=== PATIENT | female | born 1955 | race Caucasian/White ===

== ENCOUNTER 2019-12-12 10:22 | Outpatient (CLI) | payer OTHER, SELFPAY ==
--- NOTE | ~2019-12-12 | US_ITS ---
EXAMINATION: US carotid duplex BI DATE: 12/12/2019 12:41 INDICATION: Bilateral carotid bruits. TECHNIQUE: Grayscale, color Doppler, and pulsed Doppler images of the cervical carotid arteries were obtained. The degree of vessel stenosis is placed in one of the following categories: normal, <50%, 5 0-69%, >=70% but less than near-occlusion, near-occlusion, or total occlusion. Note that percent sten osis relative to normal distal artery lumen diameter is indirectly measured from velocity measurement s as described by Sergio, et al. Radiology 2003; 229:340-346. COMPARISON: Ultrasound 03/20/2019 FINDINGS: RIGHT: The right common carotid artery (CCA) peak systolic velocity (PSV) is 63 cm/s. The right internal car otid artery (ICA) PSV is 139 cm/s. The right ICA end-diastolic velocity (EDV) is 29 cm/s. The right I CA/CCA PSV ratio is 2.2. Grayscale and color Doppler images yield an estimate of >=50% diameter reduc tion from plaque in the ICA. There is antegrade flow in the right vertebral artery. LEFT: The left CCA PSV is 117 cm/s. The left ICA PSV is 127 cm/s. The left ICA EDV is 31 cm/s. The left ICA /CCA PSV ratio is 1.2. Grayscale and color Doppler images yield an estimate of >=50% diameter reducti on from plaque in the ICA. There is antegrade flow in the left vertebral artery. IMPRESSION: 1. 50-69% stenosis in the right internal carotid artery. 2. 50-69% stenosis in the left internal carotid artery. Reviewed, dictated and finalized at location A. ITAL AIDE
== END 2019-12-12 10:23 | disposition home or self-care (01) ==
LOC: ANHIMG 10:23
PROVIDERS: PCP Internal Medicine; Visit Provider Internal Medicine Cardiovascular Disease
DX: I65.23 Occlusion and stenosis of bilateral carotid arteries (principal)
CPT/HCPCS: 93880

== ENCOUNTER 2019-12-20 01:05 | Emergency (ER) | payer OTHER, SELFPAY ==
[2019-12-20] VITALS (7 sets, daily range): BP systolic 115–145; BP diastolic 51–73; PULSE 73–105; RESP 15–20; TEMP 36.8; O2SAT 97–98
--- NOTE | ~2019-12-20 | XR_ITS ---
EXAMINATION: XR chest 2V DATE: 12/20/2019 02:35 INDICATION: Weakness. Dizziness, nausea, hematuria, shortness of breath. TECHNIQUE: Frontal and lateral views of the chest were obtained. COMPARISON: Chest single view 04/11/2018, chest CT 04/11/2018 FINDINGS: There is mild scarring at the lung apices. There is mild atelectasis at left lung base. No pleural effusion or pneumothorax. The heart size is normal. There are surgical clips in the abdomen. There is a right shoulder arthroplasty. IMPRESSION: 1. Mild scarring at the lung apices and mild atelectasis at left lung base. Reviewed, dictated and finalized at location A. ERT OR LECTURE HALL MANAGER
--- NOTE | ~2019-12-20 | CT_ITS ---
EXAMINATION: CT brain wo con DATE: 12/20/2019 03:39 INDICATION: Dizziness. Confusion. Left frontal headache. TECHNIQUE: Computed tomography (CT) of the head was performed without intravenous contrast. The mA wa s adjusted according to patient size. Iterative reconstruction technique was employed. The dose-lengt h product was 605.33 mGy-cm. COMPARISON: Head CT 09/28/2017 FINDINGS: There are scattered areas of low attenuation in the cerebral white matter. There is no intr acranial hemorrhage, acute infarction, or abnormal intracranial mass lesion. The ventricles are glenn l in size. There is mild mucosal thickening in the ethmoid sinuses. The mastoid air cells are normal. The orbits are normal. IMPRESSION: 1. Stable mild nonspecific cerebral white matter disease, which likely represents chronic small vesse l ischemic disease. Reviewed, dictated and finalized at location A. TER APPRENTICE IMPRESSION: 1. Stable mild nonspecific cerebral white matter disease, which likely represen ts chronic small vessel ischemic disease.
--- NOTE | 2019-12-20 01:28 | ECG_ITS ---
Measurements Intervals [place] Rate: 72 P: 62 MO: 244 QRS: 32 QRSD: 122 T: 57 QT: 435 QTc: 476 Interpretive Statements SINUS RHYTHM WITH FIRST DEGREE AV BLOCK INTRAVENTRICULAR CONDUCTION DELAY BORDERLINE R WAVE PROGRESSION, ANTERIOR LEADS ABNORMAL ECG Electronically Signed On 12-20-2019 7:01:22 BETTING AGENCY MANAGER by Abdulkadir Lucas D.O.
--- NOTE | 2019-12-20 01:28 | ED.WEAKNESS ---
HPI - Weakness General Chief complaint: Weakness Stated complaint: weakness Time Seen by Provider: 12/20/19 01:28 Source: patient and RN notes reviewed Mode of arrival: EMS Limitations: no limitations History of Present Illness HPI Narrative: Pt is a 64 y/o female who presents to the ED via EMS with c/o generalized weakness starting yesterday. According to the nurse, the pt recently finished a course of antibiotics for a UTI. Pt states that she also recently had her Ranexa dosage doubled from 1,000 mg to 2,000 mg. She notes that she developed weakness in her bilateral legs after beginning the new dosage of the medication. Pt states that her legs feel heavy. She notes that she felt fatigued and SOB while vacuuming her carpet yesterday, stating that she had to take several breaks due to her symptoms. Pt notes that she was leaving her bathroom this evening when her legs gave out from underneath her causing her to fall. She denies any head injury during the fall. Pt currently reports nausea, but denies any urinary frequency, dysuria, malodorous urine, or melena. MD Complaint: generalized weakness Onset (ago): day(s) (1) Location: generalized Context: recent illness (UTI) and other (increased dosage of Ranexa) Associated symptoms: nausea/vomiting (nausea) and other (fatigue; dyspnea on exertion) Related Data Home Medications Medication Instructions Recorded Confirmed clopidogrel 75 mg tablet 75 mg PO DAILY 12/02/19 lansoprazole 15 mg capsule,delayed 15 mg PO DAILY 12/02/19 release levothyroxine 100 mcg tablet 100 mcg PO DAILY 12/02/19 lisinopril 10 mg tablet 10 mg PO DAILY 12/02/19 nitroglycerin 0.4 mg sublingual 0.4 mg SUBLINGUAL Q5M PRN 12/02/19 tablet oxybutynin chloride 15 mg 15 mg PO DAILY 12/02/19 tablet,extended release 24 hr atorvastatin 40 mg tablet 40 mg PO DAILY 12/03/19 cephalexin 250 mg capsule 250 mg PO QAM cap 12/03/19 Allergies Allergy/AdvReac Type Severity Reaction Status Date / Time nitrofurantoin Allergy Severe SOB, Verified 12/02/19 18:07 tightness in chest ciprofloxacin Allergy Mild Nausea, Verified 12/02/19 18:07 palpatations Sulfa (Sulfonamide Allergy Mild unknown Verified 01/20/20 18:07 Antibiotics) sulfamethoxazole Allergy Mild HEART Verified 07/16/19 06:21 RACING trimethoprim Allergy Mild Unknown Verified 12/02/19 18:07 Review of Systems Review of Systems: All systems reviewed & are unremarkable except as noted in HPI and below Constitutional: Constitutional: Reports fatigue and Reports weakness (generalized) Respiratory: Respiratory: Reports dyspnea on exertion Gastrointestinal: Gastrointestinal: Denies melena and Reports nausea Genitourinary: Genitourinary: Denies dysuria and Denies other (urinary frequency; malodorous urine) [facility] Past Medical History Medical History A-fib Anxiety Arthritis Atypical chest pain Back pain Cancer of left kidney Essential (primary) hypertension GERD (gastroesophageal reflux disease) Glaucoma Gout Hemorrhoids History of pulmonary embolism Hx of deep venous thrombosis Hypothyroidism Migraine Osteoporosis Peripheral vascular disease, unspecified Renal disease Sleep apnea UTI (urinary tract infection) Ventral hernia Wrist fracture, bilateral Surgical History Surgical History History of hysterectomy History of nephrectomy Hx of appendectomy Hx of cardiac catheterization Hx of cholecystectomy Hx of foot surgery Hx of heart artery stent Hx of splenectomy Hx of tubal ligation Hx of ventral hernia repair with mesh S/P femoral-femoral bypass surgery rt leg Status post total replacement of right shoulder Social History Social History Smoking status: Never smoker Second hand tobacco smoke exposure: No Alcohol intake: never Gender identity (if verbalized by the
[2019-12-20] MEDS: SODIUM CHLORIDE 0.9% IV 1,000 ML 999 ML IV CONT (01:57)
[2019-12-20 02:14] LABS: Basophils Percent Auto 0.1 % (0.2-1.2); Eosinophils Absolute Auto 0.1 K/mm3 (0-0.3); Eosinophils Percent Auto 0.6 % (0-4.4); Hematocrit 32.3 % (37.0-47.0); Hemoglobin 10.4 g/dL (12.0-15.0); Immature Granulocyte Absolute 0.06 K/mm3 (0.00-0.031); Immature Granulocyte Percent A 0.4 % (0-0.5); Lymphocytes Absolute Auto 2.24 K/mm3 (0.9-3.2); Lymphocytes Percent Auto 15.8 % (18.3-44.2); Mean Corpuscular HGB Conc 32.2 g/dl (32-36); Mean Corpuscular Hemoglobin 28.5 pg (26-34); Mean Corpuscular Volume 88.5 fl (80-100); Mean Platelet Volume 9.4 fl (7.4-10.4); Monocytes Absolute Auto 0.8 K/mm3 (0.1-0.6); Monocytes Percent Auto 5.6 % (2.6-8.5); Neutrophils Percent Auto 77.5 % (45.5-73.1); Platelet Count Result 504 k/mm3 (150-375); Red Blood Count 3.65 M/mm3 (4.2-5.4); Red Cell Distribution Width 14.4 % (11.5-14.5); White Blood Count 14.2 K/mm3 (4.5-10.0)
[2019-12-20 02:18] LABS: Add Urine Microscopic? YES; Appearance Urine Clear (Clear); Bilirubin Urine Negative (Negative); Blood Urine 2+ (Negative); Color Urine Yellow (Yellow); Glucose Urine UA Negative (Negative); Ketones Urine Negative (Negative); Leukocyte Esterase Ur Negative LEU/UL (Negative); Mucus Urine Rare /lpf; Nitrate Urine Negative (Negative); Protein Urine Negative (Negative); RBC Urine 51-75 /hpf (0-2); Specific Grav Ur 1.016 (1.001-1.035); Squamous Epithelial Cell Urine Rare /hpf (Few); Urobilinogen Urine Negative mg/dL (<2.0)
[2019-12-20 02:23] LABS: Blood Urea Nitrogen 23 mg/dL (7-17); Carbon Dioxide 21 mmol/L (22-30); Chloride 99 mmol/L (98-107); Estimated CRCL calculation 40 ml/min; Estimated Glomerular Filt Rate 41; Glucose 110 mg/dL (65-105); Potassium 4.5 mmol/L (3.4-5.0); Sodium 135 mmol/L (137-145)
[2019-12-20] MEDS: LORAZEPAM INJ 2 MG/ML VIAL 0.5 MG IV PUSH (03:47)
[2019-12-20] MEDS: MECLIZINE HCL 25 MG TABLET PO (03:47)
--- NOTE | 2019-12-20 04:56 | PC.NURSE ---
Pt. re evaluated on standing. did well and also walked towards the door by bed n room. Stood with assistance from this RN and Harris Knutson. Pt denied any pain at that moment.
== END 2019-12-20 05:30 | disposition home or self-care (01) ==
PROVIDERS: Emergency Provider Emergency Medicine; PCP Internal Medicine
DX: R42 Dizziness and giddiness (principal); I48.91 Unspecified atrial fibrillation; M19.90 Unspecified osteoarthritis, unspecified site; I10 Essential (primary) hypertension; K21.9 Gastro-esophageal reflux disease without esophagitis; H40.9 Unspecified glaucoma; M10.9 Gout, unspecified; Z86.711 Personal history of pulmonary embolism; Z86.718 Personal history of other venous thrombosis and embolism; E03.9 Hypothyroidism, unspecified; M81.0 Age-related osteoporosis without current pathological fracture; I73.9 Peripheral vascular disease, unspecified; N28.9 Disorder of kidney and ureter, unspecified; G47.30 Sleep apnea, unspecified; Z90.5 Acquired absence of kidney; Z85.528 Personal history of other malignant neoplasm of kidney; Z95.5 Presence of coronary angioplasty implant and graft; Z90.81 Acquired absence of spleen; Z96.611 Presence of right artificial shoulder joint; I44.0 Atrioventricular block, first degree; I45.9 Conduction disorder, unspecified; R94.31 Abnormal electrocardiogram [ECG] [EKG]
CPT/HCPCS: 36415; 51701; 70450; 71046; 80048; 81001; 85025; 87086; 93005; 96361; 96374; 99284; A9270; J2060; J7030

== ENCOUNTER 2019-12-23 07:25 | Outpatient (CLI) | payer OTHER, SELFPAY ==
--- NOTE | ~2019-12-23 | CT_ITS ---
EXAMINATION: CTA chest PE protocol EXAM DATE: 12/23/2019 07:55 INDICATION: Upper back pain. History kidney cancer and pulmonary embolism. Cough. TECHNIQUE: Spiral CTA of the chest (pulmonary arteries) was performed with 100 cc Omnipaque 350 intr avenous contrast injection. Images were acquired during the pulmonary arterial phase. Coronal maxi mum intensity projection 3D-reconstructions were created by the technologist on dedicated workstation . Axial, coronal and sagittal reformatted images were reviewed. The dose-length product (DLP) for t his examination was 383.58 mGy-cm. The exposure was tailored according to patient size (auto mA exp osure control), and iterative reconstruction (ASIR) was used as additional dose reduction technique. Comparison is made to prior examination from 04/11/2018. FINDINGS: Pulmonary arteries are well opacified and without intraluminal filling defects, previously seen filling defects have resolved. No thoracic aortic dissection. There is subsegmental right lo wer lobe medial groundglass airspace disease, could be pneumonia or atelectasis. Clinical correlation . There are no pleural or pericardial effusions. Tracheobronchial tree is patent. There is no me diastinal, hilar or axillary lymphadenopathy. There is no pneumothorax. Heart normal in size. T here is mild coronary arterial calcification, arterial sclerosis. Mild periportal edema suspected. There are cholecystectomy clips. Again there is lobular soft tissue adjacent to the pancreatic tail, located cephalad to the left adrenal gland, potentially could be spl enosis given location. This appears unchanged compared to 2018, therefore probably not local cancer r ecurrence. There is mild to moderate thoracic spondylosis without osteoblastic or osteolytic lesions identified. Right shoulder replacement. IMPRESSION: 1. Right lower lobe medial segmental groundglass opacity, could be atelectasis or pneumonia. 2. Stable left lower quadrant soft tissue probably splenosis. 3. No pulmonary emboli. Reviewed, dictated and finalized at location B. CIENTIST
== END 2019-12-23 07:26 | disposition home or self-care (01) ==
PROVIDERS: PCP Internal Medicine; Visit Provider Internal Medicine
DX: R07.89 Other chest pain (principal); Z86.711 Personal history of pulmonary embolism; R91.8 Other nonspecific abnormal finding of lung field
CPT/HCPCS: 71275; Q9967

== ENCOUNTER 2020-03-28 00:14 | Outpatient (CLI) | payer OTHER, SELFPAY | END 2020-03-28 00:15 | disposition home or self-care (01) | LOC: ANHCOVIDDT 00:14 | PROVIDERS: PCP Internal Medicine; Visit Provider Internal Medicine Cardiovascular Disease | DX: Z01.812 Encounter for preprocedural laboratory examination (principal); Z20.828 Contact with and (suspected) exposure to other viral communicable diseases | CPT/HCPCS: 87635; C9803; U0003 ==

== ENCOUNTER 2020-03-31 01:06 | Day surgery (SDC) | payer OTHER, SELFPAY ==
[2020-03-31] VITALS (12 sets, daily range): BP systolic 89–124; BP diastolic 49–66; PULSE 57–76; RESP 13–21; TEMP 37.1–37.7; O2SAT 93–99; BMI 32.1
[2020-03-31 09:30] LABS: Basophils Absolute Auto 0.1 K/mm3 (0.0-0.1); Basophils Percent Auto 0.4 % (0.2-1.2); Eosinophils Absolute Auto 0.1 K/mm3 (0-0.3); Hematocrit 34.8 % (37.0-47.0); Hemoglobin 11.4 g/dL (12.0-15.0); Immature Granulocyte Absolute 0.05 K/mm3 (0.00-0.031); Immature Granulocyte Percent A 0.4 % (0-0.5); Lymphocytes Absolute Auto 3.43 K/mm3 (0.9-3.2); Lymphocytes Percent Auto 27.2 % (18.3-44.2); Mean Corpuscular HGB Conc 32.8 g/dl (32-36); Mean Corpuscular Hemoglobin 30.2 pg (26-34); Mean Corpuscular Volume 92.1 fl (80-100); Mean Platelet Volume 9.2 fl (7.4-10.4); Monocytes Absolute Auto 1.1 K/mm3 (0.1-0.6); Monocytes Percent Auto 8.6 % (2.6-8.5); Neutrophils Absolute Auto 7.9 K/mm3 (1.3-6.7); Neutrophils Percent Auto 62.4 % (45.5-73.1); Platelet Count Result 507 k/mm3 (150-375); Red Blood Count 3.78 M/mm3 (4.2-5.4); Red Cell Distribution Width 13.5 % (11.5-14.5); White Blood Count 12.6 K/mm3 (4.5-10.0)
[2020-03-31 09:39] LABS: INR 1.1; Prothrombin Time 13.8 Seconds (11.1-14.7)
[2020-03-31 09:43] LABS: Alanine Aminotransferase 12 U/L (4-35); Albumin Level 4.1 g/dL (3.5-5.1); Alkaline Phosphatase 173 U/L (38-126); Aspartate Amino Transferase 21 U/L (14-36); Bilirubin,Total 0.4 mg/dL (0.2-1.3); Blood Urea Nitrogen 18 mg/dL (7-17); Calcium 8.9 mg/dL (8.4-10.2); Carbon Dioxide 23 mmol/L (22-30); Chloride 104 mmol/L (98-107); Estimated Glomerular Filt Rate 33; Glucose 106 mg/dL (65-105); Potassium 4.5 mmol/L (3.4-5.0); Sodium 136 mmol/L (137-145)
--- NOTE | 2020-03-31 10:26 | WPDMODSED ---
Moderate Sedation Note-Pt Data Patient Data Allergies Allergy/AdvReac Type Severity Reaction Status Date / Time nitrofurantoin Allergy Severe SOB, Verified 12/02/19 18:07 tightness in chest ciprofloxacin Allergy Mild Nausea, Verified 12/02/19 18:07 palpatations Sulfa (Sulfonamide Allergy Mild unknown Verified 12/02/19 18:07 Antibiotics) sulfamethoxazole Allergy Mild HEART Verified 07/16/19 06:21 RACING trimethoprim Allergy Mild Unknown Verified 12/02/19 18:07 Home Medications Medication Instructions Recorded Confirmed Type felodipine 10 mg tablet,extended 10 mg PO DAILY #90 tablet 10/02/19 03/31/20 Rx release 24 hr rivaroxaban 20 mg tablet 20 mg PO DAILY #90 tablet 10/31/19 03/31/20 Rx carvedilol 25 mg tablet 25 mg PO Q12H #180 tablet 11/20/19 03/31/20 Rx clopidogrel 75 mg tablet 75 mg PO DAILY 12/02/19 03/31/20 History lansoprazole 15 mg capsule,delayed 15 mg PO PRN 12/02/19 03/31/20 History release nitroglycerin 0.4 mg sublingual 0.4 mg SUBLINGUAL Q5M PRN 12/02/19 03/31/20 History tablet oxybutynin chloride 15 mg 15 mg PO DAILY 12/02/19 03/31/20 History tablet,extended release 24 hr atorvastatin 40 mg tablet 40 mg PO DAILY 12/03/19 03/31/20 History cephalexin 250 mg capsule 250 mg PO QAM cap 12/03/19 03/31/20 History levothyroxine 100 mcg tablet 100 mcg PO DAILY #90 tablet 02/19/20 03/31/20 Rx lisinopril 10 mg tablet 10 mg PO DAILY #90 tablet 02/19/20 03/31/20 Rx cholecalciferol (vitamin D3) 50 mcg PO DAILY 03/31/20 03/31/20 History [Vitamin D3] ranolazine 500 mg PO Q12H 03/31/20 03/31/20 History Current Medications: Active Medications Sodium Chloride (Normal Saline Iv) 500 mls @ 100 mls/hr IV CONT .Q5H ENEDELIA Sedation/Anesthesia: No previous sedation/anesthesia problems (including family history). [facility] Social History Social History Smoking status: Never smoker Second hand tobacco smoke exposure: No Alcohol intake: never Gender identity (if verbalized by the patient): Female Mod Sed Physical Exam Physical Exam Pre Procedural Exam: Normal: Airway Hours since solid foods: 10 Hours since liquid intake: 10 Internal Medicine - PN: Obj Da Vital Signs Vital Signs: Vital Signs - 24 hr 03/31/20 09:10 Temperature 37.1 C Pulse Rate 76 Respiratory Rate 15 Blood Pressure 121/57 L Pulse Oximetry 99 Meds/Results Medications: Active Medications Generic Name Dose Route Start Last Admin Trade Name Freq PRN Reason Stop Dose Admin Sodium Chloride 500 mls @ 100 mls/hr 03/31/20 06:05 Normal Saline Iv IV CONT .Q5H ENEDELIA Labs CBC & Chem 7: 03/31/20 09:06 03/31/20 09:06 Labs: Laboratory Results - last 24 hr 03/31/20 03/31/20 03/31/20 09:06 09:06 09:06 WBC 12.6 H RBC 3.78 L Hgb 11.4 L Hct 34.8 L MCV 92.1 MCH 30.2 MCHC 32.8 RDW 13.5 Plt Count 507 H MPV 9.2 Immature Gran % (Auto) 0.4 Neut % (Auto) 62.4 Lymph % (Auto) 27.2 [place] % (Auto) 8.6 H Eos % (Auto) 1.0 Baso % (Auto) 0.4 Lymph # (Auto) 3.43 H [place] # (Auto) 1.1 H Eos # (Auto) 0.1 Baso # (Auto) 0.1 Abs Immat Gran (auto) 0.05 H Absolute Neuts (auto) 7.9 H Absolute Nucleated RBC 0.0 Nucleated RBC % 0.0 PT 13.8 INR 1.1 Sodium 136 L Potassium 4.5 Chloride 104 Carbon Dioxide 23 BUN 18 H Creatinine 1.60 H Estim Creat Clear Calc Not Reportable Estimated GFR 33 L Glucose 106 H Calcium 8.9 Total Bilirubin 0.4 AST 21 ALT 12 Alkaline Phosphatase 173 H Total Protein 8.0 Albumin 4.1 ASA Classification/Sedation ASA Classification/Sedation Risks: Risks, benefits and alternatives explained and patient/family accepted plan for sedation. Patient re-evaluated immediately prior to sedation.
--- NOTE | 2020-03-31 10:45 | PM.IMHP ---
H&P: HPI History of Present Illness Chief complaint: CAD, Stable Angia Narrative: Iza Gayle is a 64 year old female Known CAD, history of PCI /stenting of ostial RCA using 3.5 x 15 mm everolimus eluting stent on 08/07/2015 in the setting of unstable angina; PAD with history of right to left fem-fem bypass surgery. Patient has been referred for cardiac catheterization in the setting of recurrent chest discomfort. Review of Systems Constitutional: Constitutional: Denies chills, Denies fatigue, Denies fever(s) and Denies headache(s) Eyes: Eyes: Reports as per HPI, Denies change in vision, Denies loss of vision and Denies eye pain ENT: Reports as per HPI, Reports Normal hearing present, Denies headache(s), Denies lip swelling, Denies epistaxis and Denies sore throat Cardiovascular: Cardiovascular: Reports as per HPI, Reports chest pain, Denies syncope, Denies irregular heart rhythm, Denies lightheadedness and Denies dyspnea Respiratory: Respiratory: Reports as per HPI, Denies cough, Denies dyspnea and Denies wheezing Gastrointestinal: Gastrointestinal: Reports as per HPI, Denies abdominal pain, Denies melena, Denies nausea and Denies vomiting Genitourinary: Genitourinary: Reports as per HPI Musculoskeletal: Musculoskeletal: Reports as per HPI, Denies myalgias, Denies muscle cramps and Denies muscle weakness Integumentary/Breasts: Skin/Breast: Reports as per HPI, Denies pruritus and Denies rash Neurologic: Reports as per HPI, Reports Normal hearing present, Denies behavioral changes, Denies syncope, Denies headache(s) and Denies loss of vision Psychiatric: Psychiatric: Reports as per HPI, Denies anxiety, Denies behavioral changes and Denies depression Endocrine: Endocrine: Reports as per HPI, Denies fatigue, Denies polydipsia and Denies polyuria Hematologic/Lymphatic: Hematologic/Lymphatic: Reports as per HPI, Denies easy bleeding and Denies easy bruising Allergic/Immunologic: Allergic/Immunologic: Reports as per HPI, Denies lip swelling and Denies wheezing PMFSH Past Medical History Medical History A-fib Anxiety Arthritis Atypical chest pain Back pain Cancer of left kidney Essential (primary) hypertension GERD (gastroesophageal reflux disease) Glaucoma Gout Hemorrhoids History of pulmonary embolism Hx of deep venous thrombosis Hypothyroidism Migraine Osteoporosis Peripheral vascular disease, unspecified Renal disease Sleep apnea UTI (urinary tract infection) Ventral hernia Wrist fracture, bilateral Surgical History Surgical History History of hysterectomy History of nephrectomy Hx of appendectomy Hx of cardiac catheterization Hx of cholecystectomy Hx of foot surgery Hx of heart artery stent Hx of splenectomy Hx of tubal ligation Hx of ventral hernia repair with mesh S/P femoral-femoral bypass surgery rt leg Status post total replacement of right shoulder Family History Family History Mother Family history of Alzheimer's disease, Onset Age: 82 Patient's mother is Sibling Family history of diabetes mellitus in first degree relative Diabetes mellitus Family history of congenital heart disease Father Family history of emphysema Family history of congenital heart disease Other Hypertension Social History Social History Smoking status: Never smoker Second hand tobacco smoke exposure: No Alcohol intake: never Gender identity (if verbalized by the patient): Female Meds Home Medications and Allergies Home Medications Medication Instructions Recorded Confirmed Type felodipine 10 mg tablet,extended 10 mg PO DAILY #90 tablet 10/02/19 03/31/20 Rx release 24 hr rivaroxaban 20 mg tablet 20 mg PO DAILY #90 tablet 10/31/19 03/31/20 Rx carvedilol 25 mg tablet 25
--- NOTE | 2020-03-31 11:25 | WPDCARDPROC ---
Cardiac Cath Procedure Note Date of procedure:: 03/31/20 Performing physician:: Hemanth Livingston MD Procedure Procedure note:: LEFT HEART CATHETERIZATION AND CORONARY ANGIOGRAM REPORT DATE OF PROCEDURE: 03/31/2020 INDICATION FOR PROCEDURE: Angina; history of CAD, status post PCI / stenting of ostial RCA BRIEF CLINICAL HISTORY:64 year old female with Known CAD, history of PCI /stenting of ostial RCA using 3.5 x 15 mm everolimus eluting stent on 08/07/2015 in the setting of angina; PAD with history of right to left fem-fem bypass surgery. Patient has been referred for cardiac catheterization in the setting of recurrent chest discomfort. Benefits, risks and alternatives of the procedure were discussed with the patient informed consent was taken prior to the procedure. PROCEDURES PERFORMED: 1. Left heart catheterization- Selective left and right coronary angiogram; left ventriculogram and hemodynamic assessment 2. Selective right common femoral angiogram and deployment of Angio-Seal hemostatic device 3. Moderate sedation-CPT code 83130 MODERATE SEDATION: Midazolam 2 mg; fentanyl 50 mcg; Start time 1049 , Stop time 1120 ; Total [id number] time 31 minutes; Eris Abreu RN was trained observer for moderate sedation. ACCESS SITE: Left radial artery PROCEDURE NOTE: After obtaining informed consent, patient was brought to catheterization lab and prepped and draped in a usual sterile manner. After local anesthesia with lidocaine, attempt was made to get access in the right common femoral artery. However, there was difficulty in advancing the wire through the right iliac artery. Therefore, access was taken in the left radial artery. After local anesthesia lidocaine, left radial artery access was taken followed by insertion of a 6 [place] sheath. Patient received 5000 units of heparin, and a cocktail of 200 mcg of nitroglycerin and 2.5 mg of verapamil through the radial artery sheath. Next, selective left and right coronary angiogram was performed using 5 [place] Juni catheter. Orthogonal views were taken. Next, a 5 [place] pigtail catheter was advanced in the LV cavity and was flushed with normal saline. LV pressure measurement was performed. After this, left ventriculogram was performed. The catheter was flushed again, and gradient across the aortic valve was measured on the pullback of the catheter. A radial band was placed at the left radial artery access site for local hemostasis. Patient tolerated procedure well without any immediate procedure related complications. FINDINGS: LEFT MAIN CORONARY: The left main coronary artery is a medium to large caliber vessel with minimal narrowing at the ostium without catheter dampening. The vessel bifurcates into tortuous LAD and left circumflex branches. LEFT ANTERIOR DESCENDING ARTERY: The LAD is a medium caliber vessel in the proximal segment, becomes very tortuous in the mid segment distal to the origin of the major diagonal branch. The vessel tapers distally and reaches the LV apex. This is a poorly defined [id number] stenosis in the very tortuous site mid segment distal to the major diagonal branch and at the origin of the septal building equipment operator. The major diagonal branch is a medium-sized vessel with minor plaque. LEFT CIRCUMFLEX ARTERY: The left circumflex artery is a tortuous, medium caliber vessel which essentially continues as OM 1 branch. There is minimal narrowing in the ostial-proximal segment. RIGHT CORONARY ARTERY: The right coronary artery was difficult to engage due to previously placed stent at the ostium. The previously placed stent is patent without significant normal loss. The remainder of the RCA is a medium caliber vessel, tortuous with minor irregularities in the mid segment. The vessel gives rise to medium to large-sized PLV branch and medium size PDA branch without significant focal stenosis. LEFT VENTRICULOGRAM: Hyperdynamic LV systolic function, ejection fraction m
== END 2020-03-31 17:39 | disposition home or self-care (01) ==
PROVIDERS: Internal Medicine Cardiovascular Disease; PCP Internal Medicine; Visit Provider Specialist
PROC: 4A023N7 Measurement of Cardiac Sampling and Pressure, Left Heart, Percutaneous Approach (ICD-10-PCS; CPT 93452; principal; 2020-03-31 10:00)
DX: I25.118 Atherosclerotic heart disease of native coronary artery with other forms of angina pectoris (principal); Z95.5 Presence of coronary angioplasty implant and graft; I73.9 Peripheral vascular disease, unspecified; I48.91 Unspecified atrial fibrillation; I10 Essential (primary) hypertension; K21.9 Gastro-esophageal reflux disease without esophagitis; E03.9 Hypothyroidism, unspecified; M81.0 Age-related osteoporosis without current pathological fracture; F41.9 Anxiety disorder, unspecified; M10.9 Gout, unspecified; G47.30 Sleep apnea, unspecified; Z85.528 Personal history of other malignant neoplasm of kidney; Z86.718 Personal history of other venous thrombosis and embolism; Z86.711 Personal history of pulmonary embolism; Z79.01 Long term (current) use of anticoagulants; Z79.02 Long term (current) use of antithrombotics/antiplatelets
CPT/HCPCS: 36415; 80053; 85025; 85610; 93458; C1887; C1894; J1644; J2250; J3010; J7040

== ENCOUNTER 2020-04-10 14:22 | Outpatient (CLI) | payer OTHER, SELFPAY | END 2020-04-10 14:23 | disposition home or self-care (01) | LOC: ANHSURGERY 14:24 | PROVIDERS: PCP Internal Medicine; Visit Provider Urology | DX: N30.10 Interstitial cystitis (chronic) without hematuria (principal) | CPT/HCPCS: 87086 ==

== ENCOUNTER 2020-04-17 00:13 | Outpatient (CLI) | payer OTHER, SELFPAY ==
[2020-04-17 15:54] LABS: SARS-CoV-2 RNA PCR Negative
== END 2020-04-17 00:14 | disposition home or self-care (01) ==
LOC: ANHCOVIDDT 00:13
PROVIDERS: PCP Internal Medicine; Visit Provider Urology
DX: Z01.818 Encounter for other preprocedural examination (principal); Z11.59 Encounter for screening for other viral diseases
CPT/HCPCS: 87635; C9803; U0003

== ENCOUNTER 2020-04-20 03:21 | Day surgery (SDC) | payer OTHER, SELFPAY ==
[2020-04-08 15:17] VITALS: BMI 31.2
--- NOTE | 2020-04-20 07:23 | WPDHPUPDATE1 ---
History and Physical Update Update Date/Time: 04/20/20 07:23 History and Physical has been reviewed, including an updated exam of the patient. There are NO changes in the patient's condition. Risks, benefits, and alternatives have been discussed and questions answered. Patient agrees to proceed with procedure.
[2020-04-20 10:00] VITALS: BP 113/52; PULSE 78; RESP 20; TEMP 37.6; O2SAT 99
[2020-04-20] MEDS: LACTATED RINGERS 1,000 ML 30 ML IV CONT (10:39)
--- NOTE | 2020-04-20 10:57 | WPDANESEPPF ---
Anes - Initial Pre Proc Eval Procedure: Operation Date: 04/20/20 12:00 Proposed Procedures p Cystoscopy, Bladder Biopsy With Steroid Injection - Lazaro Juarez MD Date/Time: 04/20/20 10:57 Surgeon: Lazaro Juarez MD Pre Op Diagnosis: Hunner's Ulcer Patient Data Age: 64 Gender: F Height: 5 ft 3 in Weight: 84.5 kg Last Vital Signs Temp 37.6 C 04/20/20 10:00 Pulse 78 04/20/20 10:00 Resp 20 04/20/20 10:00 BP 113/52 L 04/20/20 10:00 Pulse Ox 99 04/20/20 10:00 Allergies Allergy/AdvReac Type Severity Reaction Status Date / Time nitrofurantoin Allergy Severe SOB, Verified 04/08/20 15:23 tightness in chest ciprofloxacin Allergy Mild Nausea, Verified 04/08/20 15:23 palpatations Sulfa (Sulfonamide Allergy Mild unknown Verified 04/08/20 15:23 Antibiotics) sulfamethoxazole Allergy Mild HEART Verified 04/08/20 15:23 RACING trimethoprim Allergy Mild Unknown Verified 04/08/20 15:23 Home Medications Medication Instructions Recorded Confirmed Type rivaroxaban 20 mg tablet 20 mg PO DAILY #90 tablet 10/31/19 04/20/20 Rx carvedilol 25 mg tablet 25 mg PO Q12H #180 tablet 11/20/19 04/20/20 Rx clopidogrel 75 mg tablet 75 mg PO DAILY 12/02/19 04/20/20 History lansoprazole 15 mg capsule,delayed 15 mg PO PRN 12/02/19 04/08/20 History release nitroglycerin 0.4 mg sublingual 0.4 mg SUBLINGUAL Q5M PRN 12/02/19 04/20/20 History tablet oxybutynin chloride 15 mg 15 mg PO DAILY 12/02/19 04/20/20 History tablet,extended release 24 hr atorvastatin 40 mg tablet 40 mg PO DAILY 12/03/19 04/20/20 History cephalexin 250 mg capsule 250 mg PO QAM cap 12/03/19 04/20/20 History levothyroxine 100 mcg tablet 100 mcg PO DAILY #90 tablet 02/19/20 04/20/20 Rx lisinopril 10 mg tablet 10 mg PO DAILY #90 tablet 02/19/20 04/20/20 Rx cholecalciferol (vitamin D3) 50 mcg PO DAILY 03/31/20 04/20/20 History [Vitamin D3] ranolazine 500 mg PO Q12H 03/31/20 04/20/20 History felodipine 10 mg tablet,extended 10 mg PO DAILY #90 tablet 04/01/20 04/20/20 Rx release 24 hr Patient hx anesthesia problems: none Family hx anesthesia problems: none PMFSH Past Medical History Medical History A-fib Anxiety Arthritis Atypical chest pain Back pain Cancer of left kidney Essential (primary) hypertension GERD (gastroesophageal reflux disease) Glaucoma Gout Hemorrhoids History of pulmonary embolism Hx of deep venous thrombosis Hypothyroidism Migraine Osteoporosis Peripheral vascular disease, unspecified Renal disease Sleep apnea UTI (urinary tract infection) Ventral hernia Wrist fracture, bilateral Surgical History Surgical History History of hysterectomy History of nephrectomy Hx of appendectomy Hx of cardiac catheterization Hx of cholecystectomy Hx of foot surgery Hx of heart artery stent Hx of splenectomy Hx of tubal ligation Hx of ventral hernia repair with mesh S/P femoral-femoral bypass surgery rt leg Status post total replacement of right shoulder Family History Family History Mother Family history of Alzheimer's disease, Onset Age: 82 Patient's mother is Sibling Family history of diabetes mellitus in first degree relative Diabetes mellitus Family history of congenital heart disease Father Family history of emphysema Family history of congenital heart disease Other Hypertension Social History Social History Smoking status: Never smoker Second hand tobacco smoke exposure: No Alcohol intake: never Gender identity (if verbalized by the patient): Female Anes - Eval Final PreProcedure Day of Procedure 04/20/20 10:57 Patient weight: obese Heart: regular rate and rhythm Lungs: clear to auscultation Airway: Mallampati
[2020-04-20] MEDS: ceFAZolin 2 GM/D5W 50 ML 2 GM/50 ML BAG IVPB (11:15)
--- NOTE | 2020-04-20 11:44 | P.OP_ITS ---
Procedure Note - Detailed Date of procedure: 04/20/20 Pre-op diagnosis: Hunner's Ulcer Hunner's ulcer Post-op diagnosis: same Procedure performed: Cystoscopy with bladder biopsy and injection of steroid Description of procedure: After anesthesia was induced the patient was correctly identified and informed consent was obtained. They are placed in the dorsal lithotomy position. There prepped and draped in a sterile fashion. A time-out performed. I performed cystoscopy. There one area of Hunner's ulceration inside the bladder. This was biopsied in fulgurated. I then injected Kenalog at a dose of 40 milligrams/mL. I injected 5 cc total. There was minimal bleeding from the injection sites. The bladder was examined under low insufflation pressures and there was no active bleeding. The bladder was drain ed. The awakened and transferred to the PACU in stable condition. Implants: None Anesthesia: MAC Surgeon: Lazaro Juarez MD Drains: No Packing: No Pathology: yes (Bladder biopsy) Complications: No immediate complications Condition: stable Disposition: PACU
[2020-04-20] MEDS: TRIAMCINOLONE ACET INJ 40 MG/ML VIAL XX (11:45)
[2020-04-20 11:48] VITALS: BP 119/51; PULSE 77; RESP 15; TEMP 36.3; O2SAT 95
[2020-04-20 12:15] VITALS: BP 113/72; PULSE 64; RESP 16
[2020-04-20 12:45] VITALS: BP 116/63; PULSE 68; RESP 16
[2020-04-20 13:15] VITALS: BP 114/50; PULSE 86; RESP 16
[2020-04-20 13:45] VITALS: BP 121/77; PULSE 70; RESP 16
== END 2020-04-20 14:13 | disposition home or self-care (01) ==
PROVIDERS: PCP Internal Medicine; Visit Provider Urology
PROC: 0TBB8ZX Excision of Bladder, Via Natural or Artificial Opening Endoscopic, Diagnostic (ICD-10-PCS; CPT 52204; principal; 2020-04-20 12:00)
DX: N30.10 Interstitial cystitis (chronic) without hematuria (principal); I48.91 Unspecified atrial fibrillation; I10 Essential (primary) hypertension; K21.9 Gastro-esophageal reflux disease without esophagitis; F41.9 Anxiety disorder, unspecified; M10.9 Gout, unspecified; E03.9 Hypothyroidism, unspecified; M81.0 Age-related osteoporosis without current pathological fracture; I73.9 Peripheral vascular disease, unspecified; G47.30 Sleep apnea, unspecified; Z85.528 Personal history of other malignant neoplasm of kidney; Z86.711 Personal history of pulmonary embolism; Z86.718 Personal history of other venous thrombosis and embolism; Z79.01 Long term (current) use of anticoagulants; Z79.02 Long term (current) use of antithrombotics/antiplatelets; Z90.5 Acquired absence of kidney; E66.9 Obesity, unspecified; Z68.33 Body mass index [BMI] 33.0-33.9, adult
CPT/HCPCS: 52204; 52283; 88305; A9270; J0690; J2250; J2704; J3010; J3301; J7120

== ENCOUNTER 2020-05-20 06:41 | Outpatient (CLI) | payer OTHER, SELFPAY ==
--- NOTE | ~2020-05-20 | US_ITS ---
US aorta preventative scrn DATE: 05/20/2020 07:54 INDICATION: Abdominal aortic aneurysm screening. History of hypertension, hypercholesterolemia and to bacco use TECHNIQUE: Real-time and color flow imaging and Doppler analysis of the abdominal aorta and iliac art eries COMPARISON: None FINDINGS: The proximal abdominal aorta measures 2.6 x 2.3 cm. The mid abdominal aorta measures 3.4 x 2.7 cm . The distal abdominal aorta measures 3.5 x 3.1 cm. The proximal right common iliac and proximal left common iliac arteries measure 1.2 cm diameter. IMPRESSION: Mild abdominal aortic aneurysm, measuring up to 3.5 cm diameter Reviewed, dictated and finalized at Location [facility]. Reviewed, dictated and finalized at location B.
== END 2020-05-20 06:42 | disposition home or self-care (01) ==
PROVIDERS: PCP Internal Medicine; Visit Provider Internal Medicine Cardiovascular Disease
DX: Z87.891 Personal history of nicotine dependence (principal); I71.4 Abdominal aortic aneurysm, without rupture
CPT/HCPCS: 76706

== ENCOUNTER 2020-06-09 14:55 | Outpatient (CLI) | payer OTHER, SELFPAY ==
--- NOTE | ~2020-06-09 | XR_ITS ---
XR thoracic spine 2V 06/09/2020 15:24 Indication: Back pain Procedure: 3 views thoracic spine Comparison: 12/25/2017 Findings: Mild thoracic spondylosis. Osteopenia. Mild levocurvature of the thoracic spine. No paraspi nal soft tissue abnormality. Visualized lung parenchyma is unremarkable. Impression: 1: Mild thoracic spondylosis with levocurvature of the thoracic spine. Reviewed, dictated and finalized at location A. Impression: 1: Mild thoracic spondylosis with levocurvature of the thoracic spine.
== END 2020-06-09 14:56 | disposition home or self-care (01) ==
LOC: ANHIMG 15:00
PROVIDERS: PCP Internal Medicine; Visit Provider Internal Medicine
DX: M47.894 Other spondylosis, thoracic region (principal)
CPT/HCPCS: 72070

== ENCOUNTER 2020-06-19 14:45 | Outpatient (CLI) | payer OTHER, SELFPAY ==
--- NOTE | ~2020-06-19 | CT_ITS ---
EXAMINATION: CTA chest PE protocol DATE: 06/19/2020 15:38 INDICATION: Chest pain, unspecified, history of pulmonary embolism TECHNIQUE: Computed tomography angiography (CTA) of the chest was performed with 100 mL Omnipaque-350 intravenous contrast timed to evaluate the pulmonary arteries. Coronal maximum intensity projection 3D-reconstructions were created by the technologist. The dose-length product (DLP) was 320.68 mGy-cm. Automated exposure control and iterative reconstruction technique were employed. COMPARISON: 12/23/2019 FINDINGS: The pulmonary arteries are well-opacified. No pulmonary embolism is identified. There is mi ld dependent atelectasis. No focal airspace opacities are identified. There is no pleural effusion or pneumothorax. There are changes of right total shoulder arthroplasty. No pathologically enlarged tho racic lymph nodes are identified. The heart size is normal. There are surgical clips of the left uppe r quadrant and changes of splenectomy, cholecystectomy, and left nephrectomy. There is moderate thora cic spondylosis. . IMPRESSION: 1. . No pulmonary embolism or acute cardiopulmonary abnormality. Reviewed, dictated and finalized at location B.
[2020-06-19 15:29] LABS: Estimated Glomerular Filt Rate 45
== END 2020-06-19 14:46 | disposition home or self-care (01) ==
LOC: ANHIMG 14:47
PROVIDERS: PCP Internal Medicine; Visit Provider Internal Medicine
DX: R06.09 Other forms of dyspnea (principal)
CPT/HCPCS: 36415; 71275; Q9967

== ENCOUNTER 2020-09-09 15:20 | Outpatient (CLI) | payer OTHER, SELFPAY ==
--- NOTE | ~2020-09-09 | CT_ITS ---
EXAMINATION: CTA abd aorta runoff DATE: 09/09/2020 17:09 INDICATION: Bilateral lower limb atherosclerosis with claudication. TECHNIQUE: Computed tomographic angiography (CTA) of the abdominal, pelvis, and both lower extremitie s was performed with 150 mL Omnipaque 350 intravenous contrast. Automated exposure control and iterat hilary reconstruction technique were employed. The dose-length product was 1565 mGy-cm. COMPARISON: CT abdomen and pelvis dated 05/04/2018 FINDINGS: ABDOMINAL AORTA AND ITS BRANCHES: Normal caliber atherosclerotic aorta with no hemodynamically significant stenosis. There is 70% steno sis at the origin of the celiac axis and superior mesenteric artery. 60% stenosis at the proximal rig ht renal artery. Status post left nephrectomy. No evident stenosis of the inferior mesenteric artery. PELVIC VASCULATURE: Thrombosed left common iliac artery stent with reconstitution of a small amount of flow via collatera ls at the proximal most common femoral artery and with more significant collateral flow supplied via a patent femoral-femoral bypass graft. Atherosclerotic disease along the right common, external and i liac arteries with mild, less than 50% stenosis. The left internal iliac artery reconstitutes via col laterals. RIGHT LOWER EXTREMITY: Atherosclerotic plaque along the right femoral artery with up to 50% stenosis at a couple locations i n the mid and distal artery. Mild atherosclerotic plaque in the proximal right popliteal artery witho ut significant stenosis. No significant stenosis in the more distal arteries with three-vessel runoff to the ankle. LEFT LOWER EXTREMITY: Atherosclerotic plaque along the left femoral and popliteal arteries with mild <50% stenosis at a few locations. There is also mild stenosis of the tibioperoneal trunk with three-vessel runoff to the an kle. ADDITIONAL FINDINGS: Mild discoid atelectasis in the left lower lobe. Heart size is normal. No pericardial or pleural effu matty. Mild intra and extra hepatic biliary ductal dilation which is within normal limits post cholecy stectomy with surgical clips at the gallbladder fossa. In addition to the left nephrectomy there has been prior splenectomy with mild stenosis along side few surgical clips at the splenic fossa. Pancrea s, bilateral adrenal glands and right kidney are normal. Postoperative changes of upper abdominal bessie tral hernia mesh repair. The appendix is not visualized. No pericecal inflammatory change to suggest acute appendicitis. Bowels are otherwise unremarkable. Small focus of gas in the otherwise normal daniel dder. Correlate for recent Rao catheterization or instrumentation. The uterus is not identified and has likely been surgically resected. No free intraperitoneal gas or fluid. No pathologically enlarge d abdominal or pelvic lymphadenopathy. Mild scattered degenerative skeletal changes. IMPRESSION: 1. Widespread atherosclerotic disease with 70% stenosis at the origins of the celiac and superior mes enteric arteries, 60% stenosis at the proximal right renal artery. 2. Thrombosed left common femoral and external femoral stent with reconstitution of flow in the left femoral artery predominantly via a patent femoral-femoral bypass graft. 3. Atherosclerotic disease in the bilateral lower limbs with no significant 50% stenosis of a couple locations in the right femoral artery and with bilateral three-vessel runoff. Reviewed, dictated and finalized at location B. IMPRESSION: 1. Widespread atherosclerotic disease with 70% stenosis at the origins of the c eliac and superior mesenteric arteries, 60% stenosis at the proximal right jacky l artery. 2. Thrombosed left common femoral and external femoral stent with reconstitutio n of flow in the left femoral
[2020-09-09 16:33] LABS: Estimated Glomerular Filt Rate 45
== END 2020-09-09 15:21 | disposition home or self-care (01) ==
PROVIDERS: PCP Internal Medicine; Visit Provider Specialist
DX: I70.213 Atherosclerosis of native arteries of extremities with intermittent claudication, bilateral legs (principal)
CPT/HCPCS: 75635; Q9967

== ENCOUNTER → 2020-09-29 12:27 | Outpatient (CLI) | payer OTHER, SELFPAY ==
--- NOTE | ~2020-09-29 | MM_ITS ---
EXAMINATION: MM screening marija BI w eugenio HISTORY: Screening mammogram TECHNIQUE: Craniocaudal and mediolateral oblique 3-D tomosynthesis images were obtained and synthetic 2-D images were generated. CAD analysis was submitted and interpreted. COMPARISON: 12/25/2017, 03/16/2016 bilateral digital screening mammogram examinations BREAST PARENCHYMAL COMPOSITION: There are scattered areas of fibroglandular density. FINDINGS: There is no evidence of suspicious mass, calcification, or architectural distortion to sugg est malignancy in either breast. There has been no suspicious interval change. IMPRESSION: 1. No mammographic evidence of malignancy. 2. Recommend routine screening mammography in one year. BI-RADS Category 1: Negative Reviewed, dictated and finalized at location B. LITY PLANNER
--- NOTE | ~2020-09-29 | DEXA_ITS ---
Bone Density Report Name: Iza Gayle Age: 64 Sex: Female Ethnicity: White Date of : 1955 Indication: osteopenia; parental hip fracture; height loss; prior fracture; hysterectomy; Referring Provider: Brigitte, Luisa Study: Bone densitometry was performed. Exam Date: September 29, 2020 Accession number: [id number] Bone Density: Region BMD T-score Z-score Classification AP Spine (L1-L4) 0.849 -1.8 -0.1 Osteopenia Femoral Neck (Left) 0.529 -2.9 -1.4 Osteoporosis Total Hip (Left) 0.654 -2.4 -1.2 Osteopenia Femoral Neck (Right) 0.571 -2.5 -1.0 Osteoporosis Total Hip (Right) 0.624 -2.6 -1.4 Osteoporosis Total Hip Mean 0.639 -2.5 -1.3 Osteoporosis World Health Organization criteria for BMD impression classify patients as: Normal (T-score at or above -1.0), Osteopenia (T-score between -1.0 and -2.5), or Osteoporosis (T-score at or below -2.5). 10-year Fracture Risk: FRAX not reported because: Some T-score for Spine Total or Hip Total or Femoral Neck at or below -2.5 Previous Exams: Region Exam Age BMD T-score BMD Change BMD Change Date g/cm2 vs Baseline vs Previous AP Spine(L1-L4) 09/29/2020 64 0.849 -1.8 -0.077 -0.121* 03/16/2016 60 0.970 -0.7 0.043 -0.056* 05/09/2013 57 1.025 -0.2 0.099 0.054* 03/02/2011 55 0.972 -0.7 0.045 0.019 12/24/2008 53 0.953 -0.9 0.026 0.026 12/18/2006 51 0.926 -1.1 Total Hip(Left) 09/29/2020 64 0.654 -2.4 -0.121 -0.091* 03/16/2016 60 0.745 -1.6 -0.030 -0.034* 05/09/2013 57 0.779 -1.3 0.004 -0.023 03/02/2011 55 0.802 -1.2 0.027 0.010 12/24/2008 53 0.791 -1.2 0.017 0.017 12/18/2006 51 0.775 -1.4 Total Hip(Right) 09/29/2020 64 0.624 -2.6 -0.128 -0.095* 03/16/2016 60 0.720 -1.8 -0.033 -0.025 05/09/2013 57 0.745 -1.6 -0.008 -0.023 03/02/2011 55 0.768 -1.4 0.016 0.007 12/24/2008 53 0.762 -1.5 0.009 0.009 12/18/2006 51 0.753 -1.6 *Denotes significance at 95% confidence level, LSC for AP Spine = 0.022 g/cm2, LSC for Total Hip = 0.027 g/cm2 Clinical Information Provided by Patient: Has had a low trauma fracture Parent has had a hip fracture Has used the following medications: Vitamin D Has the following medical condition
== END ==
PROVIDERS: PCP Internal Medicine; Visit Provider Nurse Practitioner
DX: Z12.31 Encounter for screening mammogram for malignant neoplasm of breast (principal); M85.88 Other specified disorders of bone density and structure, other site; M85.852 Other specified disorders of bone density and structure, left thigh; M81.0 Age-related osteoporosis without current pathological fracture
CPT/HCPCS: 77063; 77067; 77080

== ENCOUNTER 2020-10-16 12:23 | Outpatient (CLI) | payer OTHER, SELFPAY ==
--- NOTE | 2020-10-18 07:47 | WPDPFTINT ---
PFT Interpretation PFT Interpretation: This PFT met all criteria for ATS standards and reproducibility FEV/FVC post bronchodilator 72% FEV1 103% FVC 103% TLC 103% RV 91% RV/TLC 34% DLCO 61% when adjusted for alveolar volume but not adjusted for hemoglobin Flow volume loops showed some end expiratory coving Impression: Possible mild airflow obstruction with mildly reduced diffusion capacity. This pattern is suggestive of COPD. Clinical correlation is advised.
--- NOTE | 2020-10-18 07:50 | WPDSIXMINUTE ---
Six Minute Walk Six Minute Walk: The patients O2 sats started at 97% and dropped as low as 96% Total walk distance 335.28 meters conclusion: This patient does not qualify for home oxygen use
== END 2020-10-16 12:24 | disposition home or self-care (01) ==
LOC: ANHPFT 12:24
PROVIDERS: PCP Internal Medicine; Visit Provider Internal Medicine Critical Care Medicine
DX: R06.02 Shortness of breath (principal); R94.2 Abnormal results of pulmonary function studies
CPT/HCPCS: 94060; 94618; 94726; 94729

== ENCOUNTER 2021-01-08 09:01 | Outpatient (CLI) | payer OTHER, SELFPAY ==
--- NOTE | ~2021-01-08 | US_ITS ---
EXAMINATION: US carotid duplex BI DATE: 01/08/2021 09:32 INDICATION: Bilateral carotid artery atherosclerosis and stenosis TECHNIQUE: Grayscale, color Doppler, and pulsed Doppler images of the cervical carotid arteries were obtained. The degree of vessel stenosis is placed in one of the following categories: normal, <50%, 5 0-69%, >=70% but less than near-occlusion, near-occlusion, or total occlusion. Note that percent sten osis relative to normal distal artery lumen diameter is indirectly measured from velocity measurement s as described by Sergio, et al. Radiology 2003; 229:340-346. COMPARISON: 12/12/2019 FINDINGS: RIGHT: The right common carotid artery (CCA) peak systolic velocity (PSV) is 86 cm/s. The right internal car otid artery (ICA) PSV is 110 cm/s. The right ICA end-diastolic velocity (EDV) is 25 cm/s. The right I CA/CCA PSV ratio is 1.3. Grayscale and color Doppler images yield an estimate of <50% diameter reduct ion from plaque in the ICA. The external carotid artery (ECA) PSV is 258 cm/s. There is antegrade abbi w in the right vertebral artery. LEFT: The left CCA PSV is 97 cm/s. The left ICA PSV is 116 cm/s. The left ICA EDV is 27 cm/s. The left ICA/ CCA PSV ratio is 1.2. Grayscale and color Doppler images yield an estimate of <50% diameter reduction from plaque in the ICA. The ECA PSV is 274 cm/s. There is antegrade flow in the left vertebral arter y. IMPRESSION: 1. <50% stenosis in the right internal carotid artery. 2. <50% stenosis in the left internal carotid artery. Reviewed, dictated and finalized at location A. LITY SUPERVISOR
== END 2021-01-08 09:02 | disposition home or self-care (01) ==
LOC: ANHIMG 09:03
PROVIDERS: PCP Internal Medicine; Visit Provider Internal Medicine Cardiovascular Disease
DX: I65.23 Occlusion and stenosis of bilateral carotid arteries (principal)
CPT/HCPCS: 93880

== ENCOUNTER 2021-01-11 09:41 | Outpatient (CLI) | payer OTHER, SELFPAY ==
--- NOTE | ~2021-01-11 | NM_ITS ---
EXAM: NM gastric emptying study DATE: 01/11/2021 15:10 INDICATION: Vomiting, unspecified. TECHNIQUE: A gastric emptying study was performed using the methodology of Salome CUTLER, et al. J Nucl Med 2007; 48:568-572. The patient was given a meal consisting of 2 scrambled eggs labeled with 1 mCi Tc-99m sulfur colloid, 2 slices of toast, two packages of jam, and approximately 120 mL of water. Si multaneous anterior and posterior 1-min images of the abdomen were obtained with the patient supine a t multiple time points over a total period of 4 hours. The geometric mean of anterior and posterior v iews was determined, and the percentage retention was calculated for each time point. COMPARISON: CT 09/09/2020 FINDINGS: Gastric retention of the radiotracer-labeled meal was 75%, 56%, and 10% at the 1-hour, 2-h our, and 4-hour time points, respectively. With this technique, apparent rapid gastric emptying is antonio ggested by <30% gastric retention at 1 hour. Delayed gastric emptying is defined by gastric retention of >90% at 1 hour, >60% retention at 2 hours, or >10% retention at 4 hours. IMPRESSION: 1. Normal gastric emptying. Reviewed, dictated and finalized at location A. BUTTER IMPRESSION: 1. Normal gastric emptying.
== END 2021-01-11 09:42 | disposition home or self-care (01) ==
PROVIDERS: PCP Internal Medicine; Visit Provider Internal Medicine Gastroenterology
DX: R11.10 Vomiting, unspecified (principal); R68.81 Early satiety
CPT/HCPCS: 78264; A9541

== ENCOUNTER → 2021-01-23 01:06 | Outpatient (CLI) | payer OTHER, SELFPAY ==
[2021-01-23 18:54] LABS: SARS-CoV-2 RNA PCR Negative
== END ==
PROVIDERS: PCP Internal Medicine; Visit Provider Internal Medicine Gastroenterology
DX: Z01.812 Encounter for preprocedural laboratory examination (principal); Z20.822 Contact with and (suspected) exposure to COVID-19
CPT/HCPCS: C9803; U0003; U0005

== ENCOUNTER 2021-01-27 00:44 | Day surgery (SDC) | payer OTHER, SELFPAY ==
[2021-01-15 10:43] VITALS: BMI 34.2
--- NOTE | 2021-01-26 10:37 | WPDANESEPPF ---
Anes - Initial Pre Proc Eval Procedure: Operation Date: 01/27/21 07:30 Proposed Procedures p Esophagogastroduodenoscopy - Geovanni Pulido MD <Larry Moreira, DO - Last Filed: 02/09/21 17:30> Date/Time: 01/26/21 10:37 <Larry Moreira, DO - Last Filed: 02/09/21 17:30> Surgeon: Geovanni Pulido MD <Larry Moreira, DO - Last Filed: 02/09/21 17:30> Pre Op Diagnosis: GERD <Larry Moreira DO - Last Filed: 02/09/21 17:30> Patient Data Age: 65 Gender: F Height: 1.57 m Weight: 85 kg <Larry Moreira DO - Last Filed: 02/09/21 17:30> Allergies Allergy/AdvReac Type Severity Reaction Status Date / Time ciprofloxacin Allergy Mild Nausea, Verified 02/08/21 13:21 palpatations Sulfa (Sulfonamide Allergy Mild unknown Verified 02/08/21 13:21 Antibiotics) sulfamethoxazole Allergy Mild HEART Verified 02/08/21 13:21 RACING trimethoprim Allergy Mild Unknown Verified 02/08/21 13:21 nitrofurantoin AdvReac Severe SOB, Verified 02/08/21 13:21 tightness in chest <Larry Moreira, DO - Last Filed: 02/09/21 17:30> Home Medications Medication Instructions Recorded Confirmed Type clopidogrel 75 mg tablet 75 mg PO DAILY 12/02/19 02/08/21 History lansoprazole 15 mg capsule,delayed 15 mg PO PRN 12/02/19 02/08/21 History release nitroglycerin 0.4 mg sublingual 0.4 mg SUBLINGUAL Q5M PRN 12/02/19 02/08/21 History tablet oxybutynin chloride 15 mg 15 mg PO DAILY 12/02/19 02/08/21 History tablet,extended release 24 hr atorvastatin 40 mg tablet 40 mg PO DAILY 12/03/19 02/08/21 History cephalexin 250 mg capsule 250 mg PO QAM cap 12/03/19 02/08/21 History cholecalciferol (vitamin D3) 50 mcg PO DAILY 03/31/20 02/08/21 History [Vitamin D3] lisinopril 10 mg tablet 10 mg PO DAILY #90 tablet 08/23/20 02/08/21 Rx felodipine 10 mg tablet,extended 10 mg PO DAILY #90 tablet 09/29/20 02/08/21 Rx release 24 hr carvedilol 25 mg tablet 25 mg PO Q12H #180 tablet 10/17/20 02/08/21 Rx albuterol sulfate 90 mcg/actuation 1 inh INHALATION Q4-6H PRN #8.5 g 10/28/20 02/08/21 Rx aerosol inhaler budesonide-formoterol HFA 80 2 puff INHALATION Q12H #10.2 g 10/28/20 01/15/21 Rx mcg-4.5 mcg/actuation aerosol inhaler levothyroxine 88 mcg tablet 88 mcg PO DAILY #90 tablet 12/29/20 02/08/21 Rx furosemide 20 mg tablet 20 mg PO QAM PRN 01/07/21 02/08/21 History rivaroxaban 20 mg tablet 20 mg PO DAILY #90 tablet 01/15/21 02/08/21 Rx sodium chloride 1 drp OPHTHALMIC (EYE) DAILY 01/15/21 02/08/21 History <Larry Moreira DO - Last Filed: 02/09/21 17:30> Patient hx anesthesia problems: none <Kody Ruiz MD - Last Filed: 01/27/21 06:47> Family hx anesthesia problems: none <Kody Ruiz MD - Last Filed: 01/27/21 06:47> [facility] Past Medical History Medical History: Medical History A-fib Adult BMI 34.0-34.9 kg/sq m Angina of effort Anxiety Arthritis Atypical chest pain Back pain Cancer of left kidney COPD (chronic obstructive pulmonary disease) Early satiety Essential (primary) hypertension GERD (gastroesophageal reflux disease) Glaucoma Gout Hemorrhoids History of pulmonary embolism History of tobacco abuse Hx of deep venous thrombosis Hypersomnolence Hypothyroidism Migraine Osteoporosis Peripheral vascular disease, unspecified Regurgitation of food Renal disease Shortness of Breath Sleep apnea UTI (urinary tract infection) Ventral hernia Wrist fracture, bilateral <Larry Moreira DO - Last Filed: 02/09/21 17:30> Surgical History Surgical History: Surgical History History of hysterectomy History of nephrectomy Hx of appendectomy Hx of cardiac catheterization Hx of cholecystectomy Hx of foot surgery Hx of heart artery stent Hx of splenectomy H
[2021-01-27 06:22] VITALS: BP 135/63; PULSE 76; RESP 18; TEMP 36.4; O2SAT 99; BMI 36.2
[2021-01-27] MEDS: LACTATED RINGERS 1,000 ML 150 ML IV CONT (06:33)
--- NOTE | 2021-01-27 07:28 | WPDHPUPDATE1 ---
History and Physical Update Update Date/Time: 01/27/21 07:28 History and Physical has been reviewed, including an updated exam of the patient. There are NO changes in the patient's condition. Risks, benefits, and alternatives have been discussed and questions answered. Patient agrees to proceed with procedure.
[2021-01-27] MEDS: BENZOCAINE (*SP) 60 ML SPRAY CAN (HURRICAINE) 1 SPRAY MUCOUS MEM (07:41)
[2021-01-27 07:55] VITALS: BP 113/55; PULSE 69; RESP 18; O2SAT 98
[2021-01-27 08:05] VITALS: BP 118/57; PULSE 70; RESP 23; O2SAT 99
[2021-01-27 08:15] VITALS: BP 120/62; PULSE 64; RESP 20; O2SAT 98
== END 2021-01-27 08:26 | disposition home or self-care (01) ==
PROVIDERS: PCP Internal Medicine; Visit Provider Internal Medicine Gastroenterology
PROC: 0DJ08ZZ Inspection of Upper Intestinal Tract, Via Natural or Artificial Opening Endoscopic (ICD-10-PCS; CPT 43235; principal; 2021-01-27 07:30)
DX: K29.50 Unspecified chronic gastritis without bleeding (principal); R11.0 Nausea; R10.13 Epigastric pain; K21.9 Gastro-esophageal reflux disease without esophagitis; I48.91 Unspecified atrial fibrillation; J44.9 Chronic obstructive pulmonary disease, unspecified; I10 Essential (primary) hypertension; M10.9 Gout, unspecified; H40.9 Unspecified glaucoma; E03.9 Hypothyroidism, unspecified; F41.9 Anxiety disorder, unspecified; M81.0 Age-related osteoporosis without current pathological fracture; I73.9 Peripheral vascular disease, unspecified; G47.30 Sleep apnea, unspecified; Z86.718 Personal history of other venous thrombosis and embolism; Z86.711 Personal history of pulmonary embolism; Z85.528 Personal history of other malignant neoplasm of kidney; Z90.5 Acquired absence of kidney; Z95.5 Presence of coronary angioplasty implant and graft; Z90.81 Acquired absence of spleen; Z87.891 Personal history of nicotine dependence; Z79.02 Long term (current) use of antithrombotics/antiplatelets; Z79.01 Long term (current) use of anticoagulants; Z79.51 Long term (current) use of inhaled steroids
CPT/HCPCS: 43239; 88305; C9803; J2001; J2704; J7120; U0003; U0005

== ENCOUNTER 2021-03-24 10:01 | Outpatient (CLI) | payer OTHER, SELFPAY ==
--- NOTE | 2021-03-24 10:59 | ECG_ITS ---
Measurements Intervals [place] Rate: 70 P: 64 VT: 225 QRS: 29 QRSD: 96 T: 34 QT: 396 QTc: 429 Interpretive Statements SINUS RHYTHM WITH SINUS ARRHYTHMIA WITH FIRST DEGREE AV BLOCK BASELINE ARTIFACT- I, II, III, AVR, AVL, AVF, V1-V6 ABNORMAL ECG Electronically Signed On 03-24-2021 12:04:03 CDT by Abdulkadir Lucas D.O.
[2021-03-24 11:45] LABS: INR 2.1
== END 2021-03-24 10:02 | disposition home or self-care (01) ==
LOC: ANHSURGERY 10:04
PROVIDERS: Anesthesiology; PCP Internal Medicine; Visit Provider Urology
DX: E78.00 Pure hypercholesterolemia, unspecified (principal); N28.9 Disorder of kidney and ureter, unspecified; N30.10 Interstitial cystitis (chronic) without hematuria; Z01.818 Encounter for other preprocedural examination; I44.0 Atrioventricular block, first degree
CPT/HCPCS: 36415; 85610; 85730; 87086; 93005

== ENCOUNTER → 2021-03-30 04:06 | Outpatient (CLI) | payer OTHER, SELFPAY ==
[2021-03-30 20:06] LABS: SARS-CoV-2 RNA PCR Negative
== END ==
PROVIDERS: PCP Internal Medicine; Visit Provider Urology
DX: Z01.812 Encounter for preprocedural laboratory examination (principal); Z20.822 Contact with and (suspected) exposure to COVID-19
CPT/HCPCS: C9803; U0003; U0005

== ENCOUNTER 2021-04-02 03:54 | Day surgery (SDC) | payer OTHER, SELFPAY ==
[2021-03-24 10:30] VITALS: BP 134/68; PULSE 80; RESP 20; TEMP 37.1; O2SAT 100; BMI 35.6
--- NOTE | 2021-03-26 19:28 | PM.IMHP ---
H&P: HPI History of Present Illness Date/Time: 03/26/21 19:28 history of Hunner's ulcers. Here for cystoscopy, biopsy, steroid injection Chief Complaint: Hunner ulcer Review of Systems Review of Systems: All systems reviewed & are unremarkable except as noted in HPI and below PMFSH Past Medical History Medical History A-fib Adult BMI 34.0-34.9 kg/sq m Angina of effort Anxiety Arthritis Atypical chest pain Back pain Cancer of left kidney COPD (chronic obstructive pulmonary disease) Early satiety Essential (primary) hypertension GERD (gastroesophageal reflux disease) Glaucoma Gout Hemorrhoids History of pulmonary embolism History of tobacco abuse Hx of deep venous thrombosis Hypersomnolence Hypothyroidism Migraine Osteoporosis Peripheral vascular disease, unspecified Regurgitation of food Renal disease Shortness of Breath Sleep apnea UTI (urinary tract infection) Ventral hernia Wrist fracture, bilateral Surgical History Surgical History History of hysterectomy History of nephrectomy Hx of appendectomy Hx of cardiac catheterization Hx of cholecystectomy Hx of foot surgery Hx of heart artery stent Hx of splenectomy Hx of tubal ligation Hx of ventral hernia repair with mesh S/P femoral-femoral bypass surgery rt leg Status post total replacement of right shoulder Family History Family History Mother Family history of Alzheimer's disease, Onset Age: 82 Patient's mother is Sibling Family history of diabetes mellitus in first degree relative Diabetes mellitus Family history of congenital heart disease Father Family history of emphysema Family history of congenital heart disease Other Hypertension Social History Social History Smoking packs per day: 0.5 Smoking cigarettes per day: 10.0 Years smoked: 30 Smoking pack-years: 15.00 Smoking status: Former smoker Tobacco type: cigarettes Second hand tobacco smoke exposure: No Additional smoking assessment comments: STATES 1/2PK/DAY/35YRS-QUIT 2013 Alcohol intake: never Substance use: never Substance use type: does not use Additional living arrangements comments: LIVES WITH BRENDA DICKINSON Gender identity (if verbalized by the patient): Female Spiritual care concerns: No Meds Home Medications and Allergies Home Medications Medication Instructions Recorded Confirmed Type clopidogrel 75 mg tablet 75 mg PO DAILY 12/02/19 03/24/21 History lansoprazole 15 mg capsule,delayed 15 mg PO PRN 12/02/19 03/24/21 History release nitroglycerin 0.4 mg sublingual 0.4 mg SUBLINGUAL Q5M PRN 12/02/19 03/24/21 History tablet oxybutynin chloride 15 mg 15 mg PO DAILY 12/02/19 03/24/21 History tablet,extended release 24 hr atorvastatin 40 mg tablet 40 mg PO DAILY 12/03/19 03/24/21 History cephalexin 250 mg capsule 250 mg PO QAM cap 12/03/19 03/24/21 History cholecalciferol (vitamin D3) 50 mcg PO DAILY 03/31/20 03/24/21 History [Vitamin D3] felodipine 10 mg tablet,extended 10 mg PO DAILY #90 tablet 09/29/20 03/24/21 Rx release 24 hr carvedilol 25 mg tablet 25 mg PO Q12H #180 tablet 10/17/20 03/24/21 Rx albuterol sulfate 90 mcg/actuation 1 inh INHALATION Q4-6H PRN #8.5 g 10/28/20 03/24/21 Rx aerosol inhaler budesonide-formoterol HFA 80 2 puff INHALATION Q12H #10.2 g 10/28/20 03/24/21 Rx mcg-4.5 mcg/actuation aerosol inhaler furosemide 20 mg tablet 20 mg PO QAM PRN 01/07/21 03/24/21 History rivaroxaban 20 mg tablet 20 mg PO DAILY #90 tablet 01/15/21 03/24/21 Rx sodium chloride 1 drp OPHTHALMIC (EYE) DAILY 01/15/21 03/24/21 History lisinopril 10 mg tablet 10 mg PO DAILY #90 tablet 02/21/21 03/24/21 Rx levothyroxine 100 mcg tablet 100 mcg PO DAILY #90 tablet 02/24/21
--- NOTE | 2021-04-01 12:57 | WPDANESEPPF ---
Anes - Initial Pre Proc Eval Procedure: Operation Date: 04/02/21 09:00 Proposed Procedures p Cystoscopy, Bladder Biopsy with Steroid Injection - Lazaro Juarez MD Date/Time: 04/01/21 12:57 Surgeon: Lazaro Juarez MD Pre Op Diagnosis: hunters ulcer Patient Data Age: 65 Gender: F Height: 1.6 m Weight: 91.3 kg Last Vital Signs Temp 37.1 C 03/24/21 10:30 Pulse 80 03/24/21 10:30 Resp 20 03/24/21 10:30 BP 134/68 03/24/21 10:30 Pulse Ox 100 03/24/21 10:30 Allergies Allergy/AdvReac Type Severity Reaction Status Date / Time ciprofloxacin Allergy Mild Nausea, Verified 04/02/21 07:50 palpatations Sulfa (Sulfonamide Allergy Mild HEART Verified 04/02/21 07:50 Antibiotics) RACING, SOB sulfamethoxazole Allergy Mild HEART Verified 04/02/21 07:50 RACING trimethoprim Allergy Mild HEART Verified 04/02/21 07:50 RACING, SOB nitrofurantoin AdvReac Severe SOB, Verified 04/02/21 07:50 tightness in chest Home Medications Medication Instructions Recorded Confirmed Type clopidogrel 75 mg tablet 75 mg PO DAILY 12/02/19 04/02/21 History lansoprazole 15 mg capsule,delayed 15 mg PO PRN 12/02/19 04/02/21 History release nitroglycerin 0.4 mg sublingual 0.4 mg SUBLINGUAL Q5M PRN 12/02/19 04/02/21 History tablet oxybutynin chloride 15 mg 15 mg PO DAILY 12/02/19 04/02/21 History tablet,extended release 24 hr atorvastatin 40 mg tablet 40 mg PO DAILY 12/03/19 04/02/21 History cephalexin 250 mg capsule 250 mg PO QAM cap 12/03/19 04/02/21 History cholecalciferol (vitamin D3) 50 mcg PO DAILY 03/31/20 04/02/21 History [Vitamin D3] carvedilol 25 mg tablet 25 mg PO Q12H #180 tablet 10/17/20 04/02/21 Rx albuterol sulfate 90 mcg/actuation 1 inh INHALATION Q4-6H PRN #8.5 g 10/28/20 04/02/21 Rx aerosol inhaler budesonide-formoterol HFA 80 2 puff INHALATION Q12H #10.2 g 10/28/20 04/02/21 Rx mcg-4.5 mcg/actuation aerosol inhaler furosemide 20 mg tablet 20 mg PO QAM PRN 01/07/21 04/02/21 History rivaroxaban 20 mg tablet 20 mg PO DAILY #90 tablet 01/15/21 04/02/21 Rx sodium chloride 1 drp OPHTHALMIC (EYE) DAILY 01/15/21 04/02/21 History lisinopril 10 mg tablet 10 mg PO DAILY #90 tablet 02/21/21 04/02/21 Rx levothyroxine 100 mcg tablet 100 mcg PO DAILY #90 tablet 02/24/21 04/02/21 Rx ranolazine 500 mg PO BID 03/24/21 04/02/21 History felodipine 10 mg tablet,extended 10 mg PO DAILY #90 tablet 03/30/21 04/02/21 Rx release 24 hr Patient hx anesthesia problems: none Family hx anesthesia problems: none PMFSH Past Medical History Medical History A-fib Adult BMI 34.0-34.9 kg/sq m Angina of effort Anxiety Arthritis Atypical chest pain Back pain Cancer of left kidney COPD (chronic obstructive pulmonary disease) Early satiety Essential (primary) hypertension GERD (gastroesophageal reflux disease) Glaucoma Gout Hemorrhoids History of pulmonary embolism History of tobacco abuse Hx of deep venous thrombosis Hypersomnolence Hypothyroidism Migraine Osteoporosis Peripheral vascular disease, unspecified Regurgitation of food Renal disease Shortness of Breath Sleep apnea UTI (urinary tract infection) Ventral hernia Wrist fracture, bilateral Surgical History Surgical History History of hysterectomy History of nephrectomy Hx of appendectomy Hx of cardiac catheterization Hx of cholecystectomy Hx of foot surgery Hx of heart artery stent Hx of splenectomy Hx of tubal ligation Hx of ventral hernia repair with mesh S/P femoral-femoral bypass surgery rt leg Status post total replacement of right shoulder Family History Family History Mother Family history of Alzheimer's disease, Onset Age: 82 Patient's mother is Sibling Family history of diabetes mellitus in first degree
--- NOTE | 2021-04-02 07:15 | WPDHPUPDATE1 ---
History and Physical Update Update Date/Time: 04/02/21 07:15 History and Physical has been reviewed, including an updated exam of the patient. There are NO changes in the patient's condition. Risks, benefits, and alternatives have been discussed and questions answered. Patient agrees to proceed with procedure.
[2021-04-02] MEDS: LACTATED RINGERS 1,000 ML 30 ML IV CONT (07:40)
[2021-04-02 07:53] VITALS: BP 118/60; PULSE 75; RESP 18; TEMP 37.1; O2SAT 100
[2021-04-02 08:05] LABS: INR 1.2; Prothrombin Time 15.9 Seconds (11.1-14.7)
[2021-04-02] MEDS: ceFAZolin 2 GM/D5W 50 ML 2 GM/50 ML BAG IVPB (08:52)
[2021-04-02] MEDS: LIDOCAINE HCL 2% GEL UROJET 10 ML PKG MUCOUS MEM (09:05)
[2021-04-02] MEDS: TRIAMCINOLONE ACET INJ 40 MG/ML VIAL 200 MG XX (09:06)
--- NOTE | 2021-04-02 09:11 | PM.PROC ---
Procedure Note - Detailed Date of procedure: 04/02/21 Pre-op diagnosis: hunters ulcer Hunner's ulcer Post-op diagnosis: same Procedure performed: Cystoscopy with bladder biopsy and injection of steroid Description of procedure: Anesthesia: Mac, local After anesthesia was induced the patient was correctly identified and informed consent was obtained. They are placed in the dorsal lithotomy position. There prepped and draped in a sterile fashion. A time-out performed. I performed cystoscopy. She had a small capacity and trabeculated bladder. There are tumors of the bladder. There was 1 area of Hunner's ulceration inside the bladder. This was biopsied in generously fulgurated. I then injected Kenalog at a dose of 40 milligrams/mL. I injected 5 cc total. There was minimal bleeding from the injection sites. The bladder was examined under low insufflation pressures and there was no active bleeding. The bladder was drained. The awakened and transferred to the PACU in stable condition. Implants: None Anesthesia: MAC Surgeon: Lazaro Juarez MD Drains: No Packing: No Pathology: yes (Bladder biopsy) Complications: No immediate complications Condition: stable Disposition: PACU
[2021-04-02 09:14] VITALS: BP 113/57; PULSE 69; RESP 14; O2SAT 94
[2021-04-02 09:30] VITALS: BP 115/61; PULSE 66; RESP 14
[2021-04-02 10:00] VITALS: BP 116/69; PULSE 65; RESP 16
== END 2021-04-02 10:05 | disposition home or self-care (01) ==
PROVIDERS: Anesthesiology; PCP Internal Medicine; Visit Provider Urology
PROC: 0TBB8ZX Excision of Bladder, Via Natural or Artificial Opening Endoscopic, Diagnostic (ICD-10-PCS; CPT 52204; principal; 2021-04-02 09:00)
DX: N30.10 Interstitial cystitis (chronic) without hematuria (principal); I48.91 Unspecified atrial fibrillation; I10 Essential (primary) hypertension; J44.9 Chronic obstructive pulmonary disease, unspecified; F41.9 Anxiety disorder, unspecified; K21.9 Gastro-esophageal reflux disease without esophagitis; M10.9 Gout, unspecified; H40.9 Unspecified glaucoma; E03.9 Hypothyroidism, unspecified; M81.0 Age-related osteoporosis without current pathological fracture; I73.9 Peripheral vascular disease, unspecified; G47.30 Sleep apnea, unspecified; Z86.711 Personal history of pulmonary embolism; Z86.718 Personal history of other venous thrombosis and embolism; Z95.5 Presence of coronary angioplasty implant and graft; Z87.891 Personal history of nicotine dependence; E66.9 Obesity, unspecified; Z68.35 Body mass index [BMI] 35.0-35.9, adult; Z79.02 Long term (current) use of antithrombotics/antiplatelets; Z79.51 Long term (current) use of inhaled steroids; Z79.01 Long term (current) use of anticoagulants
CPT/HCPCS: 52204; 52283; 36415; 85610; 85730; 87086; 88305; 93005; A9270; C9803; J0690; J2704; J3010; J3301; J7120; U0003; U0005

== ENCOUNTER 2021-07-17 09:46 | Outpatient (CLI) | payer OTHER, SELFPAY ==
--- NOTE | ~2021-07-17 | XR_ITS ---
EXAMINATION: XR lumbar spine 6V w bending DATE: 07/17/2021 11:05 INDICATION: Low back pain. TECHNIQUE: 7 views of lumbar spine including flexion and extension views were obtained. COMPARISON: None. FINDINGS: There is 3 degrees levocurvature of lumbar spine. The spine is hypomobile with flexion and extension. Vertebral body heights are normal. There is mildly decreased disc height at L4-L5. There a re endplate osteophytes at all levels. There is multilevel moderate to severe facet joint osteoarthri tis, worse in lower lumbar spine. There are surgical clips in the abdomen. IMPRESSION: 1. Mild lumbar spondylosis. Reviewed, dictated and finalized at location A. IMPRESSION: 1. Mild lumbar spondylosis.
--- NOTE | ~2021-07-17 | XR_ITS ---
EXAMINATION: XR hip RT min 2V DATE: 07/17/2021 11:05 INDICATION: Right hip pain. TECHNIQUE: 2 views of right hip were obtained. COMPARISON: Right hip radiographs 04/28/2010 FINDINGS: Bone alignment is normal. No fracture. There is mild right hip osteoarthritis. IMPRESSION: 1. Mild right hip osteoarthritis. Reviewed, dictated and finalized at location A.
--- NOTE | ~2021-07-17 | XR_ITS ---
EXAMINATION: XR hip LT min 2V DATE: 07/17/2021 11:05 INDICATION: Hip pain. TECHNIQUE: 2 views of left hip were obtained. COMPARISON: None. FINDINGS: Bone alignment is normal. No fracture. There is mild left hip osteoarthritis. Surgical clip s overlie left abdomen and pelvis. IMPRESSION: 1. Mild left hip osteoarthritis. Reviewed, dictated and finalized at location A.
--- NOTE | ~2021-07-17 | XR_ITS ---
EXAMINATION: XR ankle LT 2V DATE: 07/17/2021 11:05 INDICATION: Left ankle injury. TECHNIQUE: 2 views of left ankle were obtained. COMPARISON: None. FINDINGS: Bone alignment is normal. No acute fracture. Boehler's angle is 17 degrees, which may indic ate an old healed fracture of calcaneus. Joint spaces are normal. There are enthesophytes at the post erior and plantar aspects of calcaneal tuberosity. There are suture anchors in calcaneal tuberosity. There is ankle soft tissue swelling. IMPRESSION: 1. No acute fracture. Reviewed, dictated and finalized at location A. IMPRESSION: 1. No acute fracture.
[2021-07-17 11:32] LABS: Estimated Glomerular Filt Rate 38
== END 2021-07-17 09:47 | disposition home or self-care (01) ==
PROVIDERS: PCP Internal Medicine; Referring Provider Specialist; Visit Provider Internal Medicine
DX: M47.816 Spondylosis without myelopathy or radiculopathy, lumbar region (principal); M16.0 Bilateral primary osteoarthritis of hip; M62.81 Muscle weakness (generalized)
CPT/HCPCS: 72114; 73502; 73600

== ENCOUNTER 2021-07-25 09:31 | Outpatient (CLI) | payer OTHER, SELFPAY ==
--- NOTE | ~2021-07-25 | MR_ITS ---
EXAMINATION: MR brain IAC wo con EXAM DATE: 07/25/2021 10:59 INDICATION: R29.898 - Other symptoms and signs involving the musculos... Bilateral tinnitus for 2 yea rs, progressively worsening. TECHNIQUE: Multi-sequential, multiplanar MR images of the brain, brainstem, internal auditory canals were obtained without contrast. Whole brain sagittal T1, axial diffusion, gradient echo (T2*), T1, T 2, FLAIR sequences obtained. High resolution coronal 3-D FIESTA, coronal T1 FSE, axial T1 FSPGR of t he internal auditory canals. Correlation is made to head CT 12/20/2019. FINDINGS: No evidence of mastoid or middle ear opacification. The 7th/8th cranial nerve complexes a re symmetric, normal in course and caliber. No cerebellopontine angle masses. Posterior fossa unrem arkable. 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 There are no areas of restricted diffusion to suggest acute infarction. There is no acute hemorrha ge seen on the T2*, a hemosiderin sensitive sequence. No intraparenchymal brain mass lesion. There i s mild to moderate periventricular and subcortical T2/FLAIR signal hyperintensity, nonspecific but pr obably related to small vessel ischemic disease (microangiopathy). There is mild prominence of the sulci and ventricles related to cerebral atrophy. There are no extra-axial collections. Flow voids are seen in the cerebral arteries on the T2-weighted sequences consistent with their expected patenc y. The orbits are unremarkable. Soft tissue is unremarkable. IMPRESSION: 1. Unremarkable cerebellopontine angles. 2. Chronic age related findings. Reviewed, dictated and finalized at location B.
== END 2021-07-25 09:32 | disposition home or self-care (01) ==
PROVIDERS: PCP Internal Medicine; Visit Provider Internal Medicine
DX: R29.898 Other symptoms and signs involving the musculoskeletal system (principal)
CPT/HCPCS: 70551

== ENCOUNTER 2021-09-06 08:32 | Outpatient (CLI) | payer OTHER, SELFPAY ==
--- NOTE | ~2021-09-06 | CT_ITS ---
EXAMINATION: CT lung screening DATE: 09/06/2021 09:06 INDICATION: Personal history of nicotine dependence, prior smoker with 45 pack year history TECHNIQUE: Computed tomography (CT) of the chest was performed without intravenous contrast. The dose -length product (DLP) was 107.11 mGy-cm. 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 COMPARISON: 06/19/2020 FINDINGS: There is mild emphysema. No suspicious pulmonary nodules are identified. The lungs are free of acute opacities. There is no pleural effusion or pneumothorax. No pathologically enlarged thoraci c lymph nodes are identified. The heart size is normal. Calcified coronary artery atherosclerosis is noted. There is moderate thoracic spondylosis. The gallbladder is surgically absent. There are surgic al clips of the left upper quadrant with changes of splenectomy and left nephrectomy. Changes of righ t shoulder arthroplasty are also noted. IMPRESSION: 1. Lung-RADS category 1: Negative. Continue annual screening with noncontrast low-dose chest CT in 12 months. Reviewed, dictated and finalized at location A. IMPRESSION: 1. Lung-RADS category 1: Negative. Continue annual screening with noncontrast l ow-dose chest CT in 12 months.
== END 2021-09-06 08:33 | disposition home or self-care (01) ==
LOC: ANHIMG 08:38
PROVIDERS: PCP Internal Medicine; Visit Provider Nurse Practitioner Family
DX: Z87.891 Personal history of nicotine dependence (principal)
CPT/HCPCS: 71271

== ENCOUNTER → 2021-10-01 10:17 | Outpatient (CLI) | payer OTHER, SELFPAY ==
--- NOTE | ~2021-10-01 | MM_ITS ---
EXAMINATION: MM screening [facility] BI w eugenio HISTORY: Screening mammogram TECHNIQUE: Craniocaudal and mediolateral oblique 3-D tomosynthesis images were obtained and synthetic 2-D images were generated. CAD analysis was submitted and interpreted. COMPARISON: 09/29/2020, 12/25/2017 BREAST PARENCHYMAL COMPOSITION: There are scattered areas of fibroglandular density. FINDINGS: There is no evidence of suspicious mass, calcification, or architectural distortion to sugg est malignancy in either breast. There has been no suspicious interval change. IMPRESSION: 1. No mammographic evidence of malignancy. 2. Recommend routine screening mammography in one year. BI-RADS Category 1: Negative Reviewed, dictated and finalized at location A. [employer]
== END ==
PROVIDERS: PCP Internal Medicine; Visit Provider Nurse Practitioner
DX: Z12.31 Encounter for screening mammogram for malignant neoplasm of breast (principal)
CPT/HCPCS: 77063; 77067

== ENCOUNTER → 2021-12-14 09:32 | Outpatient (CLI) | payer OTHER, SELFPAY ==
[2021-12-14 13:27] LABS: Influenza A QL RT-PCR Negative (Negative); Influenza B QL RT-PCR Negative (Negative); SARS-CoV-2 RNA PCR Positive
== END ==
PROVIDERS: PCP Internal Medicine; Visit Provider Internal Medicine
DX: R68.89 Other general symptoms and signs (principal); U07.1 COVID-19
CPT/HCPCS: 87502; C9803; U0003; U0005

== ENCOUNTER 2022-05-20 15:05 | Outpatient (CLI) | payer OTHER, SELFPAY ==
--- NOTE | ~2022-05-20 | US_ITS ---
EXAMINATION: US carotid duplex BI DATE: 05/20/2022 16:50 INDICATION: Blurry vision, left eye. Bilateral carotid artery stenosis TECHNIQUE: Grayscale, color Doppler, and pulsed Doppler images of the cervical carotid arteries were obtained. The degree of vessel stenosis is placed in one of the following categories: normal, <50%, 5 0-69%, >=70% but less than near-occlusion, near-occlusion, or total occlusion. Note that percent sten osis relative to normal distal artery lumen diameter is indirectly measured from velocity measurement s as described by Sergio, et al. Radiology 2003; 229:340-346. COMPARISON: January 08, 2021 carotid duplex examination FINDINGS: RIGHT: The right common carotid artery (CCA) peak systolic velocity (PSV) is 91.1 cm/s. The right internal c arotid artery (ICA) PSV is 149.6 cm/s. The right ICA end-diastolic velocity (EDV) is 29.0 cm/s. The r ight ICA/CCA PSV ratio is 1.6. Grayscale and color Doppler images yield an estimate of less than 50% diameter reduction from plaque in the ICA. The external carotid artery (ECA) PSV is 97.3 cm/s. There is antegrade flow in the right vertebral artery. LEFT: The left CCA PSV is 96.6 cm/s. The left ICA PSV is 133.8 cm/s. The left ICA EDV is 35.2 cm/s. The lef t ICA/CCA PSV ratio is 1.4. Grayscale and color Doppler images yield an estimate of less than 50% bharat meter reduction from plaque in the ICA. The ECA PSV is 259.8 cm/s. There is antegrade flow in the lef t vertebral artery. IMPRESSION: 1. Less than 50% stenosis in the right internal carotid artery. 2. Less than 50% stenosis in the left internal carotid artery. Reviewed, dictated and finalized at Location A. Reviewed, dictated and finalized at location A.
== END 2022-05-20 15:06 | disposition home or self-care (01) ==
PROVIDERS: PCP Internal Medicine; Visit Provider Internal Medicine Cardiovascular Disease
DX: H53.8 Other visual disturbances (principal); I65.23 Occlusion and stenosis of bilateral carotid arteries
CPT/HCPCS: 93880

== ENCOUNTER 2022-05-24 08:07 | Outpatient (CLI) | payer OTHER, SELFPAY ==
[2022-05-24 09:05] LABS: INR 2.2; Partial Thromboplastin Time 27.5 SECONDS (22.3-36.8); Prothrombin Time 23.4 Seconds (11.1-14.7)
== END 2022-05-24 08:08 | disposition home or self-care (01) ==
LOC: ANHSURGERY 08:11
PROVIDERS: Anesthesiology; PCP Internal Medicine; Visit Provider Urology
DX: N30.10 Interstitial cystitis (chronic) without hematuria (principal); Z79.01 Long term (current) use of anticoagulants; Z01.818 Encounter for other preprocedural examination
CPT/HCPCS: 36415; 85610; 85730; 87086

== ENCOUNTER 2022-05-30 02:11 | Day surgery (SDC) | payer OTHER, SELFPAY ==
--- NOTE | 2022-05-23 08:44 | PC.NURSE ---
Addendum entered by Lynne Longo RN 05/25/22 07:52: PT STATES HOLD COUMADIN 3 DAYS PRE OP PER DR FRANK. LAST DOSE 05/26/22 Original Note: Report to the Outpatient Waiting Room, entrance under the green pavilion located off [facility], at time __1215 on date __05/30/22 . OR Time: _1415 . - You and your visitor will be asked a series of questions to screen for COVID 19 for your protection. - Only one visitor is allowed at this time. - The patient visitor is requested to leave or wait in car when not with patient. - A mask is required within the hospital. Patients may have clear liquids (water, carbonated beverages, clear teas, apple juice) until 3 hours prior to surgery with a maximum of 20 ounces. - No food from midnight until time of surgery - Infants may have breast milk until 4 hours before surgery, infant formula 6 hours prior to surgery. - Children will be allowed to drink immediately following surgery. If applicable, please bring a bottle or sippy cup to assist with drinking. Juice, water, soda, and popsicles are readily available. For infants on formula, please bring formula the day of surgery. Pacifiers are allowed. Take the following medications with a SIP of water the morning of surgery: __INHALER(RESPIMAT),CARVEDILOL,LEVOTHYROXINE,RANOLAZINE Medications to discontinue per physician _PT STATES PLAVIX 3 DAYS PRE OP PER DR FRANK. ALL VITAMINS AND SUPPLEMENTS 3 DAYS PRE OP Date to take last dose___05/26/22 Please no make-up, nail azeri, hairspray, perfume, deodorant, or body powder the day of surgery. No jewelry (including any body piercings) or valuables the day of surgery, leave them at home. Please take a shower or bath the night before, or the morning of, surgery with an antibacterial soap. Wear comfortable, loose fitting clothing. Children are encouraged to wear pajamas. - Jewelry must be removed prior to entering the operating room. Rings and piercings that are not removed may be cut off. - The hospital will not accept responsibility for valuables. - Please leave all valuables, including medications, at home the day of surgery. If you are going home after surgery, a licensed commercial truck driver must drive you home. - NO public transportation without another adult. - We recommend that an adult stay with you for 24 hours following discharge. - We also recommend that you do not drive, make important decision, drink alcoholic beverages, or take any drugs that were not prescribed by your health care provider for at least 24 hours after your discharge time. For Pediatric surgeries, we recommend two adults accompany the child home (only one inside the building at this time). Follow any additional instructions given to you from your surgeon. If you or anyone in your household have experienced Covid symptoms in the past week, please notify your surgeon or the nurse liaison at the phone number below for possible testing. Telephone instructions given to __PATIENT and asked if any additional questions and then verbalized understanding. Patient advised to call surgeon office or pre surgery nurse liaison [phone] if any additional questions.
[2022-05-23 08:49] VITALS: BMI 32.9
--- NOTE | 2022-05-28 11:02 | PM.IMHP ---
H&P: HPI History of Present Illness Date/Time: 05/28/22 11:02 Chief Complaint: she feels this if she is ready for another steroid injection. Her last 2 urine cultures were negative. Her last steroid injection was March of 2021 Review of Systems Review of Systems: as per history of present illness [facility] Past Medical History Medical History A-fib Adult BMI 34.0-34.9 kg/sq m Angina of effort Anxiety Arthritis Atypical chest pain Back pain Cancer of left kidney COPD (chronic obstructive pulmonary disease) Early satiety Essential (primary) hypertension GERD (gastroesophageal reflux disease) Glaucoma Gout Hemorrhoids History of pulmonary embolism History of tobacco abuse Hx of deep venous thrombosis Hypersomnolence Hypothyroidism Migraine Osteoporosis Peripheral vascular disease, unspecified Pulmonary embolism Regurgitation of food Renal disease Shortness of Breath Sleep apnea UTI (urinary tract infection) Ventral hernia Wrist fracture, bilateral Surgical History Surgical History History of hysterectomy History of nephrectomy Hx of appendectomy Hx of cardiac catheterization Hx of cholecystectomy Hx of foot surgery Hx of heart artery stent Hx of splenectomy Hx of tubal ligation Hx of ventral hernia repair with mesh S/P femoral-femoral bypass surgery rt leg Status post total replacement of right shoulder Family History Family History Mother Family history of Alzheimer's disease, Onset Age: 82 Patient's mother is Sibling Family history of diabetes mellitus in first degree relative Diabetes mellitus Family history of congenital heart disease Father Family history of emphysema Family history of congenital heart disease Other Hypertension Social History Social History Smoking packs per day: 0.5 Smoking cigarettes per day: 10.0 Years smoked: 35 Smoking pack-years: 17.50 Smoking status: Former smoker Tobacco type: cigarettes Second hand tobacco smoke exposure: No Smoking end date: 11/13/13 Additional smoking assessment comments: STATES 1/2PK/DAY/35YRS-QUIT 2013 Alcohol intake: never Substance use: never Substance use type: does not use Additional living arrangements comments: LIVES WITH BRENDA DICKINSON Gender identity (if verbalized by the patient): Female Spiritual care concerns: No Meds Home Medications and Allergies Home Medications Medication Instructions Recorded Confirmed Type clopidogrel 75 mg tablet (Plavix) 75 mg PO DAILY 12/02/19 05/23/22 History lansoprazole 15 mg capsule,delayed 15 mg PO PRN HEARTBURN 12/02/19 05/23/22 History release (Prevacid) nitroglycerin 0.4 mg sublingual 0.4 mg sublingual Q5M PRN Chest 12/02/19 05/23/22 History tablet Pain oxybutynin chloride 15 mg 15 mg PO DAILY 12/02/19 05/23/22 History tablet,extended release 24 hr atorvastatin 40 mg tablet 40 mg PO DAILY 12/03/19 05/23/22 History cholecalciferol (vitamin D3) 50 50 mcg PO DAILY 03/31/20 05/23/22 History mcg (2,000 unit) capsule (Vitamin D3) sodium chloride 5 % eye drops 1 drp ophthalmic (eye) BID 01/15/21 05/23/22 History ranolazine 500 mg tablet,extended 500 mg PO BID 03/24/21 05/23/22 History release,12 hr levothyroxine 88 mcg tablet 88 mcg PO DAILY #90 tabs 06/08/21 05/23/22 Rx Stiolto Respimat 2.5 mcg-2.5 2 puff inhalation DAILY #4 grams 01/04/22 05/23/22 Rx mcg/actuation solution for inhalation (tiotropium-olodaterol) albuterol sulfate 90 mcg/actuation 1 inh inhalation Q4-6H PRN 01/04/22 05/23/22 Rx aerosol inhaler shortness of breath or wheezing #8.5 grams lisinopril 10 mg tablet 10 mg PO DAILY #90 tabs 03/23/22 05/23/22 Rx felodipine 10 mg tablet,extended 10 mg PO DAILY #90 tabs 03/28/22
[2022-05-30 12:30] VITALS: BP 130/66; PULSE 78; RESP 16; TEMP 37.1; O2SAT 100
[2022-05-30] MEDS: LACTATED RINGERS 1,000 ML 30 ML IV CONT (12:45)
[2022-05-30 13:00] LABS: INR 1.4; Prothrombin Time 16.5 Seconds (11.1-14.7)
[2022-05-30 13:01] LABS: Partial Thromboplastin Time 28.7 SECONDS (22.3-36.8)
--- NOTE | 2022-05-30 13:36 | WPDANESEPPF ---
Anes - Initial Pre Proc Eval Procedure: Operation Date: 05/30/22 14:15 Proposed Procedures p Cystoscopy, Bladder Biopsy, Steroid Injection - Lazaro Juarez MD Date/Time: 05/30/22 13:36 Surgeon: Lazaro Juarez MD Pre Op Diagnosis: hunners ulcers Patient Data Age: 66 Gender: F Height: 1.57 m Weight: 77.8 kg Last Vital Signs Temp 37.1 C 05/30/22 12:30 Pulse 78 05/30/22 12:30 Resp 16 05/30/22 12:30 BP 130/66 05/30/22 12:30 Pulse Ox 100 05/30/22 12:30 O2 Del Method Room Air 05/30/22 12:30 Allergies Allergy/AdvReac Type Severity Reaction Status Date / Time ciprofloxacin Allergy Mild Nausea, Verified 05/30/22 12:16 palpatations Sulfa (Sulfonamide Allergy Mild HEART Verified 05/30/22 12:16 Antibiotics) RACING, SOB sulfamethoxazole Allergy Mild HEART Verified 05/30/22 12:16 RACING trimethoprim Allergy Mild HEART Verified 05/30/22 12:16 RACING, SOB nitrofurantoin AdvReac Severe SOB, Verified 05/30/22 12:16 tightness in chest Home Medications Medication Instructions Recorded Confirmed Type clopidogrel 75 mg tablet (Plavix) 75 mg PO DAILY 12/02/19 05/30/22 History lansoprazole 15 mg capsule,delayed 15 mg PO PRN HEARTBURN 12/02/19 05/30/22 History release (Prevacid) nitroglycerin 0.4 mg sublingual 0.4 mg sublingual Q5M PRN Chest 12/02/19 05/23/22 History tablet Pain oxybutynin chloride 15 mg 15 mg PO DAILY 12/02/19 05/30/22 History tablet,extended release 24 hr atorvastatin 40 mg tablet 40 mg PO DAILY 12/03/19 05/30/22 History cholecalciferol (vitamin D3) 50 50 mcg PO DAILY 03/31/20 05/30/22 History mcg (2,000 unit) capsule (Vitamin D3) sodium chloride 5 % eye drops 1 drp ophthalmic (eye) BID 01/15/21 05/23/22 History ranolazine 500 mg tablet,extended 500 mg PO BID 03/24/21 05/30/22 History release,12 hr Stiolto Respimat 2.5 mcg-2.5 2 puff inhalation DAILY #4 grams 01/04/22 05/30/22 Rx mcg/actuation solution for inhalation (tiotropium-olodaterol) albuterol sulfate 90 mcg/actuation 1 inh inhalation Q4-6H PRN 01/04/22 05/23/22 Rx aerosol inhaler shortness of breath or wheezing #8.5 grams lisinopril 10 mg tablet 10 mg PO DAILY #90 tabs 03/23/22 05/30/22 Rx felodipine 10 mg tablet,extended 10 mg PO DAILY #90 tabs 03/28/22 05/30/22 Rx release 24 hr ondansetron HCl 4 mg tablet 4 - 8 mg PO Q8H PRN nausea and 03/30/22 05/23/22 Rx vomiting #12 tabs carvedilol 25 mg tablet 25 mg PO Q12H #180 tabs 04/06/22 05/30/22 Rx warfarin 3 mg tablet See Rx Instructions .Route 04/17/22 05/30/22 Rx .COMPLEX #30 tabs calcium carb 300 mg-D3 800 1 tablet PO DAILY 05/23/22 05/30/22 History unit-mag ox 25 mg-copy director 0.5 mg-yola-Zn tablet (Caltrate + D3 Plus Minerals) cephalexin 250 mg capsule 1 cap PO DAILY 05/23/22 05/23/22 History denosumab 60 mg/mL subcutaneous 60 mg subcut [id number] 05/23/22 05/23/22 History syringe (Prolia) levothyroxine 88 mcg tablet 88 mcg PO DAILY #90 tabs 05/28/22 05/30/22 Rx Laboratory Tests 05/30/22 12:41 PT 16.5 Seconds H D Seconds (11.1-14.7) INR 1.4 APTT 28.7 SECONDS SECONDS (22.3-36.8) Patient hx anesthesia problems: none Family hx anesthesia problems: none Results Review: All pre-operative results and documents have been reviewed as part of the pre-operative evaluation. [facility] Past Medical History Medical History A-fib Adult BMI 34.0-34.9 kg/sq m Angina of effort Anxiety Arthritis Atypical chest pain Back pain Cancer of left kidney COPD (chronic obstructive pulmonary disease) Early satiety Essential (primary) hypertension GERD (gastroesophageal reflux disease) Glaucoma Gout Hemorrhoids History of pulmonary embolism History of tobacco abuse Hx of deep venous thrombosis Hypersomnolence Hypothyroidism Migraine Osteoporosis Peripheral vascular disease, unspecified Pulmonary embolism Regurgit
--- NOTE | 2022-05-30 13:48 | SUR.PREOP ---
Discussed delay with patient. Voices understanding. Warm blanket applied.
--- NOTE | 2022-05-30 13:48 | WPDHPUPDATE1 ---
History and Physical Update Update Date/Time: 05/30/22 13:48 History and Physical has been reviewed, including an updated exam of the patient. There are NO changes in the patient's condition. Risks, benefits, and alternatives have been discussed and questions answered. Patient agrees to proceed with procedure.
[2022-05-30] MEDS: ceFAZolin 2 GM/D5W 50 ML 2 GM/50 ML BAG IVPB (15:02)
[2022-05-30] MEDS: TRIAMCINOLONE ACET INJ 40 MG/ML VIAL 200 MG IM (15:15)
[2022-05-30] MEDS: LIDOCAINE HCL 2% GEL UROJET 10 ML PKG MUCOUS MEM (15:16)
[2022-05-30 15:26] VITALS: BP 109/63; PULSE 75; RESP 18; O2SAT 97
[2022-05-30 15:55] VITALS: BP 135/68; PULSE 72; RESP 16
[2022-05-30 16:10] VITALS: BP 139/74; PULSE 73; RESP 18
--- NOTE | 2022-06-01 16:15 | W.PM.PROC2 ---
Procedure Note - Detailed Date of Procedure 05/30/22 Pre-op Diagnosis hunners ulcers Post-op Diagnosis Same Procedure Performed Cystoscopy, bladder biopsy, steroid injection Surgeon Lazaro Juarez MD Indications this is a woman with recurrent Hunner's ulcer variety interstitial cystitis. She is here today for repeat steroid injection she understands risks of bleeding, infection, damage to the urinary tract, need for repeat procedures. She agrees to proceed Description of Procedure she is correctly identified. Informed consents obtained. She by the operating room. She was given mac anesthesia. She was given appropriate perioperative antibiotics. A time-out performed. Cystoscopy revealed areas of Hunner's ulceration within the bladder. When these areas was biopsied. It was generously fulgurated. I then injected my Kenalog into the ulcerated area. I used 200 mg total. Concentration of 40 mg per mail. I used 5 cc total. There was minimal bleeding for the injection site. Her bladder was drained. She was awakened and transferred the PACU in stable condition. Estimated Blood Loss 1 Pathology Yes Complications No immediate complications Condition Stable Disposition PACU
== END 2022-05-30 16:21 | disposition home or self-care (01) ==
PROVIDERS: Anesthesiology; PCP Internal Medicine; Visit Provider Urology
PROC: 0TBB8ZX Excision of Bladder, Via Natural or Artificial Opening Endoscopic, Diagnostic (ICD-10-PCS; CPT 52204; principal; 2022-05-30 14:15)
DX: N30.10 Interstitial cystitis (chronic) without hematuria (principal); I48.91 Unspecified atrial fibrillation; J44.9 Chronic obstructive pulmonary disease, unspecified; I10 Essential (primary) hypertension; K21.9 Gastro-esophageal reflux disease without esophagitis; H40.9 Unspecified glaucoma; M10.9 Gout, unspecified; E03.9 Hypothyroidism, unspecified; M81.0 Age-related osteoporosis without current pathological fracture; G47.30 Sleep apnea, unspecified; I73.9 Peripheral vascular disease, unspecified; Z86.711 Personal history of pulmonary embolism; Z85.528 Personal history of other malignant neoplasm of kidney; Z90.5 Acquired absence of kidney; Z95.5 Presence of coronary angioplasty implant and graft; Z87.891 Personal history of nicotine dependence; Z79.02 Long term (current) use of antithrombotics/antiplatelets; Z79.51 Long term (current) use of inhaled steroids; E66.9 Obesity, unspecified; Z68.31 Body mass index [BMI] 31.0-31.9, adult
CPT/HCPCS: 52204; 52283; 36415; 85610; 85730; 87086; 88305; A9270; J0690; J2001; J2250; J2704; J3010; J3301; J7120

== ENCOUNTER 2022-08-12 18:02 | Emergency (ER) | payer OTHER, SELFPAY ==
[2022-08-12 18:20] VITALS: BP 131/73; PULSE 105; RESP 20; TEMP 36.7; O2SAT 100
[2022-08-12 19:29] LABS: Basophils Percent Auto 0.4 % (0.2-1.2); Eosinophils Absolute Auto 0.1 K/mm3 (0-0.3); Eosinophils Percent Auto 0.6 % (0-4.4); Hematocrit 34.8 % (37.0-47.0); Hemoglobin 11.2 g/dL (12.0-15.0); Immature Granulocyte Absolute 0.07 K/mm3 (0.00-0.031); Immature Granulocyte Percent A 0.6 % (0-0.5); Lymphocytes Absolute Auto 3.34 K/mm3 (0.9-3.2); Lymphocytes Percent Auto 30.4 % (18.3-44.2); Mean Corpuscular HGB Conc 32.2 g/dl (32-36); Mean Corpuscular Hemoglobin 27.7 pg (26-34); Mean Corpuscular Volume 86.1 fl (80-100); Mean Platelet Volume 8.6 fl (7.4-10.4); Monocytes Absolute Auto 1.1 K/mm3 (0.1-0.6); Monocytes Percent Auto 9.8 % (2.6-8.5); Neutrophils Absolute Auto 6.4 K/mm3 (1.3-6.7); Neutrophils Percent Auto 58.2 % (45.5-73.1); Platelet Count Result 577 k/mm3 (150-375); Red Blood Count 4.04 M/mm3 (4.2-5.4); Red Cell Distribution Width 19.6 % (11.5-14.5)
--- NOTE | 2022-08-12 19:34 | ED.GENADULT ---
HPI - General Adult General Chief complaint: Urogenital-Female Stated complaint: bladder infection Time Seen by Provider: 08/12/22 19:04 History of Present Illness HPI narrative: Patient is a 66-year-old female who presents ER with concerns for bladder infection. Patient was seen by her investment associate 1 week ago. She has history of recurrent UTIs. At that time she was having her typical symptoms. Urine culture returned and showed ESBL positive E. coli. It is resistant to the Augmentin that she has been on. Patient reports that she still has some nighttime sweats and subjective fevers. No dysuria. She reports she is urinating at the same frequency as typical for her. No abdominal pain or back pain. Patient does have history of nephrectomy related to cancer in the past. Additionally patient is on Coumadin due to history of DVT Related Data Home Medications Medication Instructions Recorded Confirmed clopidogrel 75 mg tablet (Plavix) 75 mg PO DAILY 12/02/19 08/08/22 lansoprazole 15 mg capsule,delayed 15 mg PO PRN HEARTBURN 12/02/19 08/08/22 release (Prevacid) nitroglycerin 0.4 mg sublingual 0.4 mg sublingual Q5M PRN Chest 12/02/19 08/08/22 tablet Pain oxybutynin chloride 15 mg 15 mg PO DAILY 12/02/19 08/08/22 tablet,extended release 24 hr atorvastatin 40 mg tablet 40 mg PO DAILY 12/03/19 08/08/22 cholecalciferol (vitamin D3) 50 50 mcg PO DAILY 03/31/20 08/08/22 mcg (2,000 unit) capsule (Vitamin D3) sodium chloride 5 % eye drops 1 drp ophthalmic (eye) BID 01/15/21 08/08/22 ranolazine 500 mg tablet,extended 500 mg PO BID 03/24/21 08/08/22 release,12 hr calcium carb 300 mg-D3 800 1 tablet PO DAILY 05/23/22 08/08/22 unit-mag ox 25 mg-gyroscopic engineering technician 0.5 mg-yola-Zn tablet (Caltrate + D3 Plus Minerals) cephalexin 250 mg capsule 1 cap PO DAILY 05/23/22 08/08/22 denosumab 60 mg/mL subcutaneous 60 mg subcut [id number] 05/23/22 08/08/22 syringe (Prolia) Allergies Allergy/AdvReac Type Severity Reaction Status Date / Time ciprofloxacin Allergy Mild Nausea, Verified 08/08/22 11:32 palpatations Sulfa (Sulfonamide Allergy Mild HEART Verified 08/08/22 11:32 Antibiotics) RACING, SOB sulfamethoxazole Allergy Mild HEART Verified 08/08/22 11:32 RACING trimethoprim Allergy Mild HEART Verified 08/08/22 11:32 RACING, SOB nitrofurantoin AdvReac Severe SOB, Verified 08/08/22 11:32 tightness in chest Review of Systems Review of Systems: All systems reviewed & are unremarkable except as noted in HPI and below Constitutional: Constitutional: Denies fatigue, Reports fever(s) and Denies weakness Cardiovascular: Cardiovascular: Denies chest pain and Denies rapid heart rate Respiratory: Respiratory: Denies cough and Denies dyspnea Gastrointestinal: Gastrointestinal: Denies abdominal pain, Denies nausea and Denies vomiting Genitourinary: Genitourinary: Reports nocturia, Denies dysuria and Denies flank pain PMFSH Past Medical History Medical History A-fib Adult BMI 34.0-34.9 kg/sq m Angina of effort Anxiety Arthritis Atypical chest pain Back pain Cancer of left kidney COPD (chronic obstructive pulmonary disease) Early satiety Essential (primary) hypertension GERD (gastroesophageal reflux disease) Glaucoma Gout Hemorrhoids History of pulmonary embolism History of tobacco abuse Hx of deep venous thrombosis Hypersomnolence Hypothyroidism Migraine Osteoporosis Peripheral vascular disease, unspecified Pulmonary embolism Regurgitation of food Renal disease Shortness of Breath Sleep apnea UTI (urinary tract infection) Ventral hernia Wrist fracture, bilateral Surgical History Surgical History History of hysterectomy History of nephrectomy Hx of appendectomy Hx of cardiac catheterization Hx of cholecystectomy Hx of foot surgery Hx of heart artery stent Hx of splenectomy H
[2022-08-12 19:44] LABS: Anion Gap 11 mmol/L (8-16); Blood Urea Nitrogen 23 mg/dL (7-17); Calcium 8.4 mg/dL (8.4-10.2); Carbon Dioxide 20 mmol/L (22-30); Chloride 105 mmol/L (98-107); Estimated Glomerular Filt Rate 45; Glucose 124 mg/dL (65-110); Potassium 5.4 mmol/L (3.4-5.0); Sodium 136 mmol/L (137-145)
[2022-08-12 19:48] LABS: Appearance Urine Slightly Cloudy (Clear); Bilirubin Urine 1+ (Negative); Blood Urine Negative (Negative); Color Urine Yellow (Yellow); Glucose Urine UA Negative (Negative); Ketones Urine Negative (Negative); Leukocyte Esterase Ur Trace LEU/UL (Negative); Nitrate Urine Negative (Negative); Protein Urine Trace mg/dL (Negative); Urobilinogen Urine 0.2 mg/dL (<2.0)
[2022-08-12 19:52] LABS: Add Urine Microscopic? YES; Bacteria Urine Trace /hpf; RBC Urine 0-2 /hpf (0-2); Squamous Epithelial Cell Urine Occasional /hpf (Few); WBC Urine 16-20 /hpf
[2022-08-12 20:50] LABS: INR 3.6; Partial Thromboplastin Time 36.5 SECONDS (22.3-36.8); Prothrombin Time 34.5 Seconds (11.1-14.7)
== END 2022-08-12 21:10 | disposition home or self-care (01) ==
PROVIDERS: Emergency Provider Emergency Medicine; PCP Internal Medicine
DX: N39.0 Urinary tract infection, site not specified (principal); I48.91 Unspecified atrial fibrillation; J44.9 Chronic obstructive pulmonary disease, unspecified; I10 Essential (primary) hypertension; K21.9 Gastro-esophageal reflux disease without esophagitis; H40.9 Unspecified glaucoma; M10.9 Gout, unspecified; E03.9 Hypothyroidism, unspecified; M81.0 Age-related osteoporosis without current pathological fracture; I73.9 Peripheral vascular disease, unspecified; Z86.711 Personal history of pulmonary embolism; Z90.5 Acquired absence of kidney; Z85.528 Personal history of other malignant neoplasm of kidney; Z79.02 Long term (current) use of antithrombotics/antiplatelets; Z95.5 Presence of coronary angioplasty implant and graft; Z87.891 Personal history of nicotine dependence; Z79.51 Long term (current) use of inhaled steroids; Z79.01 Long term (current) use of anticoagulants
CPT/HCPCS: 36415; 80048; 81001; 85025; 85610; 85730; 87077; 87086; 87088; 99283

== ENCOUNTER 2022-09-09 10:20 | Outpatient (CLI) | payer OTHER, SELFPAY ==
--- NOTE | ~2022-09-09 | CT_ITS ---
EXAMINATION: CT lung screening DATE: 09/09/2022 10:43 INDICATION: COPD. Emphysema. Lung cancer. TECHNIQUE: Computed tomography (CT) of the chest was performed without intravenous contrast. The dose -length product was 99.49 mGy-cm. Automated exposure control and iterative reconstruction technique w ere employed. COMPARISON: CT dated 09/06/2021 FINDINGS: There is a left lateral muscular defect with herniation of nonobstructed colon. No signific ant pleural or pericardial effusion. There is a 1.5 cm soft tissue nodule in the left upper abdomen l aterally, image 109. The spleen is not identified. This may represent an accessory splenule. No thoracic lymphadenopathy. No significant pleural or pericardial effusion. No endobronchial lesions . There is atherosclerosis of the aorta and coronary arteries. There is a 3.1 cm soft tissue mass in the left upper abdomen which may represent an adrenal mass. There is mild emphysema. No endobronchial lesions. No suspicious pulmonary nodules or masses. No foca l airspace consolidation. No pneumothorax. There is moderate thoracic spondylosis. There is a right s houlder arthroplasty. No lytic or blastic lesions are seen. IMPRESSION: 1. Lung-RADS category 1: Negative. Continue annual screening with noncontrast low-dose chest CT in 12 months. 2: Large left lateral wall muscular defect with herniated nonobstructed colon. 3: Soft tissue nodule left upper abdomen laterally measuring 1.5 cm, possibly an accessory splenule. 4: Soft tissue mass left upper abdomen just below surgical clips. This may represent an left adrenal mass or atrophic kidney. Correlate for history of prior surgery. Consider correlation with contrast-e nhanced CT abdomen on a nonemergent basis. Reviewed, dictated and finalized at location B. IMPRESSION: 1. Lung-RADS category 1: Negative. Continue annual screening with noncontrast l ow-dose chest CT in 12 months. 2: Large left lateral wall muscular defect with herniated nonobstructed colon. 3: Soft tissue nodule left upper abdomen laterally measuring 1.5 cm, possibly a n accessory splenule. 4: Soft tissue mass left upper abdomen just below surgical clips. This may repr esent an left adrenal mass or atrophic kidney. Correlate for history of prior s urgery. Consider correlation with contrast-enhanced CT abdomen on a nonemergent basis.
== END 2022-09-09 10:21 | disposition home or self-care (01) ==
PROVIDERS: PCP Internal Medicine; Visit Provider Physician Assistant
DX: Z12.2 Encounter for screening for malignant neoplasm of respiratory organs (principal); Z87.891 Personal history of nicotine dependence
CPT/HCPCS: 71271

== ENCOUNTER 2022-09-26 06:45 | Outpatient (CLI) | payer OTHER, SELFPAY ==
--- NOTE | ~2022-09-26 | CT_ITS ---
EXAMINATION: CT abdomen pelvis w con DATE: 09/26/2022 07:18 INDICATION: Left upper quadrant incisional hernia TECHNIQUE: Computed tomography (CT) of the abdomen and pelvis was performed with 100 CC Omnipaque 350 intravenous contrast. Automated exposure control and iterative reconstruction technique were employe d. Exam dose: 436.35 mGy-cm total exam DLP. COMPARISON: 09/01/2020 CTA abdomen aorta runoff FINDINGS: There is minimal discoid atelectasis and/or scarring at the lung bases. Normal heart size. Trace pericardial fluid. There is mild prominence of the bile ducts, likely secondary to cholecystectomy. No hepatic space-occ upying mass lesion.. No pancreatic mass lesion, calcification or pancreatic duct dilatation is noted. Multiple surgical clips are noted adjacent to a small residual spleen situated in the posterior media l superior abdomen just beneath the diaphragm Status post left nephrectomy. History of renal cancer. The right kidney is unremarkable. No suspicious right renal mass lesion or right urinary tract calcul us or hydroureteronephrosis. There is diffuse thickening of the urinary bladder wall and fat stranding around the bladder, suggest ing possible cystitis. Fusiform up to 3.5 cm infrarenal abdominal aortic aneurysm. There is extensive atherosclerotic plaqui ng calcification of the abdominal aorta and prominent calcifications at the origins of the celiac and superior mesenteric and right renal arteries. Left common, external and internal iliac artery occlusion. Femoral-femoral artery bypass graft is not ed. There is prominent atherosclerotic calcification of the right common and internal iliac and to a less er extent external iliac arteries. Bilateral femoral artery calcifications. No intraperitoneal or retroperitoneal or pelvic mass lesion or adenopathy or ascites. Minimal colonic diverticulosis; no CT evidence of diverticulitis. There is nonspecific thickening of the colon wall which may be infectious or inflammatory or ischemic. Some air-fluid levels in the righ t colon which is abnormal unless the patient has had recent enemas. There are multiple small bowel ai r-fluid levels. No small bowel or large bowel dilatation is noted. No intraperitoneal free air. There is a posterolateral left upper abdominal spigelian hernia containing fat and partial herniation of a short segment of descending colon. No obstruction or strangulation. Diffuse osteopenia. [id number] degenerative spurring of the lower thoracic and lumbar spine. No suspicious osteolytic or osteoblastic lesions are noted. IMPRESSION: Status post cholecystectomy Status post hysterectomy There are bladder wall thickening or pericystic fat stranding suggesting cystitis Small and large bowel air-fluid levels without abnormal dilatation, thickening of the wall the colon. Enterocolitis is suggested. Infectious, inflammatory or ischemic colitis is not excluded Minimal diverticulosis of colon; no CT evidence of diverticulitis Posterior lateral left upper abdominal wall spigelian hernia containing fat and a portion of a short segment of descending colon without obstruction Mild infrarenal abdominal aortic aneurysm. 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 Reviewed, dictated and finalized at location A. ING FOREMAN IMPRESSION: Status post cholecystectomy Status post hysterectomy There are bladder wall thickening or pericystic fat stranding suggesting cystit is Small and large bowel air-fluid levels without abnormal dilatation, thickening of the wall the col
[2022-09-26 07:13] LABS: Estimated Glomerular Filt Rate 41
== END 2022-09-26 06:46 | disposition home or self-care (01) ==
PROVIDERS: PCP Internal Medicine; Visit Provider Surgery
DX: K43.2 Incisional hernia without obstruction or gangrene (principal); Z90.49 Acquired absence of other specified parts of digestive tract; I71.40 Abdominal aortic aneurysm, without rupture, unspecified
CPT/HCPCS: 74177; Q9967

== ENCOUNTER 2022-11-02 08:19 | Outpatient (CLI) | payer OTHER, SELFPAY ==
--- NOTE | 2022-11-02 08:33 | ECG_ITS ---
Measurements Intervals [place] Rate: 73 P: 59 [place]: 196 QRS: 29 QRSD: 92 T: 31 QT: 384 QTc: 424 Interpretive Statements SINUS RHYTHM SEPTAL MYOCARDIAL INFARCTION [40+ ms Q WAVE IN V1/V2], PROBABLY OLD COMPARED TO ECG 03/24/2021 11:14:38 MYOCARDIAL INFARCT FINDING NOW PRESENT Electronically Signed On 11-02-2022 17:55:41 LAUNDRY TECHNICIAN by Umang Galicia M.D.
[2022-11-02 09:16] LABS: INR 1.3
[2022-11-02 09:17] LABS: Anion Gap 6 mmol/L (8-16); Blood Urea Nitrogen 14 mg/dL (7-17); Calcium 8.5 mg/dL (8.4-10.2); Carbon Dioxide 27 mmol/L (22-30); Chloride 102 mmol/L (98-107); Estimated Glomerular Filt Rate 50; Glucose 106 mg/dL (65-110); Partial Thromboplastin Time 28.1 SECONDS (22.3-36.8); Potassium 4.8 mmol/L (3.4-5.0); Sodium 135 mmol/L (137-145)
== END 2022-11-02 08:20 | disposition home or self-care (01) ==
PROVIDERS: Anesthesiology; PCP Internal Medicine; Visit Provider Surgery
DX: Z51.81 Encounter for therapeutic drug level monitoring (principal); K43.2 Incisional hernia without obstruction or gangrene; I12.9 Hypertensive chronic kidney disease with stage 1 through stage 4 chronic kidney disease, or unspecified chronic kidney disease; N18.9 Chronic kidney disease, unspecified
CPT/HCPCS: 36415; 80048; 85610; 85730; 86850; 86900; 86901; 93005

== ENCOUNTER → 2022-11-03 09:14 | Outpatient (CLI) | payer OTHER, SELFPAY ==
--- NOTE | ~2022-11-03 | DEXA_ITS ---
Bone Density Report Name: GENARO JORDAN Age: 67 Sex: Female Ethnicity: White Date of : 1955 Indication: postmenopausal osteoporosis; monitoring treatment; parental hip fracture; height loss; prior fracture; asthma or emphysema; hysterectomy; Referring Provider: Brigitte, Luisa Study: Bone densitometry was performed. Exam Date: November 03, 2022 Accession number: [id number] Bone Density: Region BMD T-score Z-score Classification AP Spine (L1-L4) 0.967 -0.7 1.1 Normal Femoral Neck (Left) 0.524 -2.9 -1.4 Osteoporosis Total Hip (Left) 0.664 -2.3 -1.0 Osteopenia Femoral Neck (Right) 0.577 -2.4 -0.9 Osteopenia Total Hip (Right) 0.686 -2.1 -0.8 Osteopenia Total Hip Mean 0.675 -2.2 -0.9 Osteopenia World Health Organization criteria for BMD impression classify patients as: Normal (T-score at or above -1.0), Osteopenia (T-score between -1.0 and -2.5), or Osteoporosis (T-score at or below -2.5). 10-year Fracture Risk: FRAX not reported because: Some T-score for Spine Total or Hip Total or Femoral Neck at or below -2.5 Treated for osteoporosis Previous Exams: Region Exam Age BMD T-score BMD Change BMD Change Date g/cm2 vs Baseline vs Previous AP Spine(L1-L4) 11/03/2022 67 0.967 -0.7 0.041 0.118* 09/29/2020 64 0.849 -1.8 -0.077 -0.121* 03/16/2016 60 0.970 -0.7 0.043 -0.056* 05/09/2013 57 1.025 -0.2 0.099 0.054* 03/02/2011 55 0.972 -0.7 0.045 0.019 12/24/2008 53 0.953 -0.9 0.026 0.026 12/18/2006 51 0.926 -1.1 Total Hip(Left) 11/03/2022 67 0.664 -2.3 -0.111 0.010 09/29/2020 64 0.654 -2.4 -0.121 -0.091* 03/16/2016 60 0.745 -1.6 -0.030 -0.034* 05/09/2013 57 0.779 -1.3 0.004 -0.023 03/02/2011 55 0.802 -1.2 0.027 0.010 12/24/2008 53 0.791 -1.2 0.017 0.017 12/18/2006 51 0.775 -1.4 Total Hip(Right) 11/03/2022 67 0.686 -2.1 -0.067 0.061* 09/29/2020 64 0.624 -2.6 -0.128 -0.095* 03/16/2016 60 0.720 -1.8 -0.033 -0.025 05/09/2013 57 0.745 -1.6 -0.008 -0.023 03/02/2011 55 0.768 -1.4 0.016 0.007 12/24/2008 53 0.762 -1.5 0.009 0.009 12/18/2006 51 0.753 -1.6 *Denotes significance at 95% confidence level, LSC for AP Spine = 0.022 g/cm2, LSC for Total Hi
--- NOTE | ~2022-11-03 | MM_ITS ---
EXAMINATION: MM screening marija BI w eugenio HISTORY: Screening TECHNIQUE: Craniocaudal and mediolateral oblique 3-D tomosynthesis images were obtained and synthetic 2-D images were generated. CAD analysis was submitted and interpreted. COMPARISON: Comparison to multiple prior studies sequentially, with oldest reviewed study dated 08/06. BREAST PARENCHYMAL COMPOSITION: There are scattered areas of fibroglandular density. FINDINGS: There is no evidence of suspicious mass, calcification, or architectural distortion to sugg est malignancy in either breast. There has been no suspicious interval change. IMPRESSION: 1. No mammographic evidence of malignancy. 2. Recommend routine screening mammography in one year. BI-RADS Category 1: Negative Reviewed, dictated and finalized at location A. TAL ART DIRECTOR
== END ==
PROVIDERS: PCP Internal Medicine; Visit Provider Nurse Practitioner
DX: Z12.31 Encounter for screening mammogram for malignant neoplasm of breast (principal); Z78.0 Asymptomatic menopausal state; M81.0 Age-related osteoporosis without current pathological fracture; M85.852 Other specified disorders of bone density and structure, left thigh; M85.851 Other specified disorders of bone density and structure, right thigh
CPT/HCPCS: 77063; 77067; 77080

== ENCOUNTER 2022-11-17 09:58 | Outpatient (CLI) | payer OTHER, SELFPAY ==
--- NOTE | ~2022-11-17 | US_ITS ---
US venous doppler [facility] DATE: 11/17/2022 10:50 INDICATION: Phlebitis TECHNIQUE: Real-time and color flow imaging and Doppler analysis of the veins of the lower extremitie s COMPARISON: None FINDINGS: The greater saphenous veins are patent. There is spontaneous and phasic flow and normal aug mentation and color flow signal and normal compression of the deep veins of both lower extremities. IMPRESSION: No evidence of deep venous thrombosis of the lower extremities Reviewed, dictated and finalized at Location [facility]. Reviewed, dictated and finalized at location L. CTOR OF AGRICULTURE
== END 2022-11-17 09:59 | disposition home or self-care (01) ==
PROVIDERS: PCP Internal Medicine; Visit Provider Internal Medicine Cardiovascular Disease
DX: I82.499 Acute embolism and thrombosis of other specified deep vein of unspecified lower extremity (principal); M79.605 Pain in left leg
CPT/HCPCS: 93970

== ENCOUNTER 2023-03-03 02:55 | Day surgery (SDC) | payer OTHER, SELFPAY ==
[2023-02-24 08:26] VITALS: BMI 29.4
--- NOTE | 2023-02-24 08:51 | PC.NURSE ---
Report to the Outpatient Waiting Room, entrance under the green pavilion located off [facility], at time __8:30AM on date ___03/03/23____. Planned Procedure Time: __10:30AM . Time changes happen often and if your time is changed the preop area will call you the afternoon before. - You and your visitor will be asked to self-screen and do not enter if you have any COVID symptoms. - A mask is optional within the hospital at this time. Patients may have clear liquids (water, carbonated beverages, clear teas, apple juice) until 3 hours prior to surgery with a maximum of 20 ounces. - No food from midnight until time of surgery Take the following medications with a SIP of water the morning of surgery: __STIOLTO INHALER, ALBUTEROL INHALER NEEDED, CARVEDILOL, CEPHALEXIN, FELODIPINE, LEVOTHYROXINE, RANOLAZINE, ONDANSETRON NEEDED DO NOT STOP ANY OF YOUR OTHER PRESCRIPTION MEDICATIONS PRIOR TO SURGERY ?EXCEPT THE FOLLOWING Medications to discontinue per physician __HOLD PLAVIX PER DR FRANK- PATIENT CALLING TODAY TO VERIFY. HOLD COUMADIN 5 DAYS PRE-OP PER PATIENT- LAST DOSE 02/25/23, HOLD ALL VITAMINS/SUPPLEMENTS 7 DAYS PRE-OP PER DR FRANK(PER PATIENT)-LAST DOSE 02/24/23 Please no make-up, nail burmese, hairspray, perfume, deodorant, or body powder the day of surgery. No jewelry (including any body piercings) or valuables the day of surgery, leave them at home. Please take a shower or bath the night before, or the morning of, surgery with an antibacterial soap. Wear comfortable, loose fitting clothing. Children are encouraged to wear pajamas. - Jewelry must be removed prior to entering the operating room. Rings and piercings that are not removed may be cut off. - The hospital will not accept responsibility for valuables. - Please leave all valuables, including medications, at home the day of surgery. If you are going home after surgery, a licensed trash truck driver must drive you home. - NO public transportation without another adult if you receive anesthesia. - We recommend that an adult stay with you for 24 hours following discharge. - We also recommend that you do not drive, make important decision, drink alcoholic beverages, or take any drugs that were not prescribed by your health care provider for at least 24 hours after your discharge time. Follow any additional instructions given to you from your surgeon. If you or anyone in your household have experienced Covid symptoms in the past week, please notify your surgeon or the nurse liaison at the phone number below for possible testing. Telephone instructions given to __PATIENT and asked if any additional questions and then verbalized understanding. Patient advised to call surgeon office or pre surgery nurse liaison [phone] if any additional questions.
--- NOTE | 2023-02-27 12:48 | PM.IMHP ---
H&P: HPI History of Present Illness Date/Time: 02/27/23 12:48 Chief Complaint: Hunner's ulcer Narrative: Patient with Hunner's ulcer. Presents for repeat treatment Review of Systems Review of Systems: All systems reviewed & are unremarkable except as noted in HPI and below PMFSH Past Medical History Medical History A-fib Adult BMI 34.0-34.9 kg/sq m Angina of effort Anxiety Arthritis Atypical chest pain Back pain Cancer of left kidney COPD (chronic obstructive pulmonary disease) Early satiety Essential (primary) hypertension GERD (gastroesophageal reflux disease) Glaucoma Gout Hemorrhoids History of pulmonary embolism History of tobacco abuse Hx of deep venous thrombosis Hypersomnolence Hypothyroidism Migraine Osteoporosis Peripheral vascular disease, unspecified Pulmonary embolism Regurgitation of food Renal disease Shortness of Breath Sleep apnea UTI (urinary tract infection) Ventral hernia Wrist fracture, bilateral Surgical History Surgical History History of hysterectomy History of nephrectomy Hx of appendectomy Hx of cardiac catheterization Hx of cataract surgery Hx of cholecystectomy Hx of foot surgery Hx of heart artery stent Hx of splenectomy Hx of tubal ligation Hx of ventral hernia repair with mesh S/P femoral-femoral bypass surgery rt leg Status post total replacement of right shoulder Family History Family History Mother Family history of Alzheimer's disease, Onset Age: 82 Patient's mother is Sibling Family history of diabetes mellitus in first degree relative Diabetes mellitus Family history of congenital heart disease Father Family history of emphysema Family history of congenital heart disease Other Hypertension Social History Social History Smoking packs per day: 0.5 Smoking cigarettes per day: 10.0 Years smoked: 40 Smoking pack-years: 20.00 Smoking status: Former smoker Tobacco type: cigarettes Second hand tobacco smoke exposure: No Smoking end date: 05/13/15 Additional smoking assessment comments: STATES 1/2PK/DAY/35YRS-QUIT 2013 Alcohol intake: never Substance use: never Substance use type: does not use Lack of Transportation: No Lack of Food: Never True Current Housing: I Have Housing Concerned About Future Housing: No Difficulty Paying Gas/Electric Bills: No Difficulty Paying for Meds: No Currently Unemployed: No Education: High School Diploma/GED Difficulty w/ Childcare or Family Care: No Living arrangements: with family Additional living arrangements comments: SON Gender identity (if verbalized by the patient): Female Spiritual care concerns: No Meds Home Medications and Allergies Home Medications Medication Instructions Recorded Confirmed Type clopidogrel 75 mg tablet (Plavix) 75 mg PO QAM 12/02/19 02/24/23 History lansoprazole 15 mg capsule,delayed 15 mg PO PRN HEARTBURN 12/02/19 02/24/23 History release (Prevacid) nitroglycerin 0.4 mg sublingual 0.4 mg sublingual Q5M PRN Chest 12/02/19 02/24/23 History tablet Pain oxybutynin chloride 15 mg 15 mg PO DAILY 12/02/19 02/24/23 History tablet,extended release 24 hr atorvastatin 40 mg tablet 40 mg PO DAILY 12/03/19 02/24/23 History ranolazine 500 mg tablet,extended 500 mg PO BID 03/24/21 02/24/23 History release,12 hr albuterol sulfate 90 mcg/actuation 1 inh inhalation Q4-6H PRN 01/04/22 02/24/23 Rx aerosol inhaler shortness of breath or wheezing #8.5 grams carvedilol 25 mg tablet 25 mg PO Q12H #180 tabs 04/06/22 02/24/23 Rx calcium carb 300 mg-D3 800 1 tablet PO DAILY 05/23/22 02/24/23 History unit-mag ox 25 mg-copier operator 0.5 mg-yola-Zn tablet (Caltrate + D3 Plus Minerals) folic
--- NOTE | 2023-03-03 05:05 | WPDHPUPDATE1 ---
History and Physical Update Update Date/Time: 03/03/23 05:05 History and Physical has been reviewed, including an updated exam of the patient. There are NO changes in the patient's condition. Risks, benefits, and alternatives have been discussed and questions answered. Patient agrees to proceed with procedure.
[2023-03-03 08:56] VITALS: BP 106/55; PULSE 77; RESP 18; TEMP 36.4; O2SAT 100
[2023-03-03 09:37] LABS: INR 1.1
[2023-03-03 09:38] LABS: Partial Thromboplastin Time 24.4 SECONDS (22.3-36.8)
--- NOTE | 2023-03-03 09:55 | WPDANESEPPF ---
Anes - Initial Pre Proc Eval Procedure: Operation Date: 03/03/23 10:30 Proposed Procedures p Cystoscopy, Bladder Biopsy - Lazaro Juarez MD Date/Time: 03/03/23 09:55 Surgeon: Lazaro Juarez MD Pre Op Diagnosis: hunners ulcers Patient Data Age: 67 Gender: F Height: 1.57 m Weight: 74.7 kg Last Vital Signs Temp 36.4 C 03/03/23 08:56 Pulse 77 03/03/23 08:56 Resp 18 03/03/23 08:56 BP 106/55 L 03/03/23 08:56 Pulse Ox 100 03/03/23 08:56 O2 Del Method Room Air 03/03/23 08:56 Allergies Allergy/AdvReac Type Severity Reaction Status Date / Time No Known Allergies Allergy Verified 03/03/23 09:00 Home Medications Medication Instructions Recorded Confirmed Type clopidogrel 75 mg tablet (Plavix) 75 mg PO QAM 12/02/19 03/03/23 History lansoprazole 15 mg capsule,delayed 15 mg PO PRN HEARTBURN 12/02/19 03/03/23 History release (Prevacid) nitroglycerin 0.4 mg sublingual 0.4 mg sublingual Q5M PRN Chest 12/02/19 03/03/23 History tablet Pain oxybutynin chloride 15 mg 15 mg PO DAILY 12/02/19 03/03/23 History tablet,extended release 24 hr atorvastatin 40 mg tablet 40 mg PO DAILY 12/03/19 03/03/23 History ranolazine 500 mg tablet,extended 500 mg PO BID 03/24/21 03/03/23 History release,12 hr albuterol sulfate 90 mcg/actuation 1 inh inhalation Q4-6H PRN 01/04/22 03/03/23 Rx aerosol inhaler shortness of breath or wheezing #8.5 grams carvedilol 25 mg tablet 25 mg PO Q12H #180 tabs 04/06/22 03/03/23 Rx calcium carb 300 mg-D3 800 1 tablet PO DAILY 05/23/22 03/03/23 History unit-mag ox 25 mg-freelance copywriter 0.5 mg-yola-Zn tablet (Caltrate + D3 Plus Minerals) folic acid 1 mg tablet 1 mg PO DAILY #90 tabs 08/24/22 03/03/23 Rx felodipine 10 mg tablet,extended 10 mg PO QAM 10/27/22 03/03/23 History release 24 hr ondansetron HCl 4 mg tablet 4 - 8 mg PO Q8H PRN nausea and 01/06/23 03/03/23 Rx vomiting #12 tabs Stiolto Respimat 2.5 mcg-2.5 2 puff inhalation QAM #4 grams 01/20/23 03/03/23 Rx mcg/actuation solution for inhalation (tiotropium-olodaterol) warfarin 3 mg tablet 4.5 mg PO QPM #30 tabs 02/05/23 03/03/23 Rx acetaminophen 500 mg tablet 1,000 mg PO Q6H PRN Pain 02/24/23 03/03/23 History cephalexin 250 mg tablet 250 mg PO DAILY 02/24/23 03/03/23 History cholecalciferol (vitamin D3) 125 125 mcg PO DAILY 02/24/23 03/03/23 History mcg (5,000 unit) capsule ciprofloxacin HCl 500 mg tablet 500 mg PO Q12H 02/24/23 03/03/23 History levothyroxine 88 mcg tablet 88 mcg PO QAM 02/24/23 03/03/23 History lisinopril 10 mg tablet 10 mg PO QAM 02/24/23 03/03/23 History phenazopyridine 200 mg tablet 200 mg PO TID PRN pain 6 doses #30 03/03/23 Rx (Pyridium) tabs tramadol 50 mg tablet 50 mg PO Q6H PRN pain #10 tabs 03/03/23 Rx Laboratory Tests 03/03/23 09:12 PT 14.0 Seconds Seconds (11.1-14.7) INR 1.1 APTT 24.4 SECONDS SECONDS (22.3-36.8) Patient hx anesthesia problems: none Family hx anesthesia problems: none Results Review: All pre-operative results and documents have been reviewed as part of the pre-operative evaluation. [facility] Past Medical History Medical History A-fib Adult BMI 34.0-34.9 kg/sq m Angina of effort Anxiety Arthritis Atypical chest pain Back pain Cancer of left kidney COPD (chronic obstructive pulmonary disease) Early satiety Essential (primary) hypertension GERD (gastroesophageal reflux disease) Glaucoma Gout Hemorrhoids History of pulmonary embolism History of tobacco abuse Hx of deep venous thrombosis Hypersomnolence Hypothyroidism Migraine Osteoporosis Peripheral vascular disease, unspecified Pulmonary embolism Regurgitation of food Renal disease Shortness of Breath Sleep apnea UTI (urinary tract infection) Ventral hernia Wrist fracture, bilateral Surgical History Surgical History History of hyst
[2023-03-03] MEDS: ceFAZolin 2 GM/D5W 50 ML 2 GM/50 ML BAG IVPB (10:31)
[2023-03-03] MEDS: TRIAMCINOLONE ACET INJ 40 MG/ML VIAL 200 MG XX (10:47)
[2023-03-03] MEDS: LIDOCAINE HCL 2% GEL UROJET 10 ML PKG MUCOUS MEM (10:47)
[2023-03-03 10:57] VITALS: BP 87/44; PULSE 70; RESP 16; O2SAT 95
[2023-03-03] MEDS: LACTATED RINGERS 1,000 ML 30 ML IV CONT (10:57)
--- NOTE | 2023-03-03 10:59 | W.PM.PROC2 ---
Procedure Note - Detailed Date of Procedure 03/03/23 Pre-op Diagnosis hunners ulcers Post-op Diagnosis Same Procedure Performed Cystoscopy, bladder biopsy, steroid injection Surgeon Lazaro Juarez MD Anesthesia MAC and Local Findings Kimberlyner's ulceration on right floor of bladder Description of Procedure She has correctly identified. Informed consent obtained. She from the operating room. She was given MAC anesthesia. She was prepped and draped in a sterile fashion. Given appropriate perioperative antibiotics. Time-out performed. I applied Uro jet. I performed cystoscopy. She had moderate trabeculation. No tumors. Ureters normal. There was an area of ulceration on the floor of the bladder on the right. This was biopsied in generously fulgurated. I then injected Kenalog. 200 mg total. 40 milligrams/mL. The injection sites were fulgurated. There was no bleeding under low insufflation pressures. Her bladder was drained. She was awakened transferred to PACU in stable condition Estimated Blood Loss 2 Pathology Yes Complications No immediate complications Condition Stable Disposition PACU
[2023-03-03 11:20] VITALS: BP 107/55; PULSE 70; RESP 16
[2023-03-03 11:50] VITALS: BP 101/55; PULSE 67; RESP 16
== END 2023-03-03 12:09 | disposition home or self-care (01) ==
PROVIDERS: Anesthesiology; PCP Internal Medicine; Visit Provider Urology
PROC: 0TBB8ZX Excision of Bladder, Via Natural or Artificial Opening Endoscopic, Diagnostic (ICD-10-PCS; CPT 52204; principal; 2023-03-03 10:30)
DX: N30.10 Interstitial cystitis (chronic) without hematuria (principal); I48.91 Unspecified atrial fibrillation; J44.9 Chronic obstructive pulmonary disease, unspecified; I10 Essential (primary) hypertension; E03.9 Hypothyroidism, unspecified; M81.0 Age-related osteoporosis without current pathological fracture; K21.9 Gastro-esophageal reflux disease without esophagitis; F41.9 Anxiety disorder, unspecified; I73.9 Peripheral vascular disease, unspecified; G47.30 Sleep apnea, unspecified; Z90.5 Acquired absence of kidney; Z95.5 Presence of coronary angioplasty implant and graft; Z87.891 Personal history of nicotine dependence; E66.9 Obesity, unspecified; Z68.30 Body mass index [BMI] 30.0-30.9, adult; Z79.02 Long term (current) use of antithrombotics/antiplatelets; Z79.51 Long term (current) use of inhaled steroids; Z79.01 Long term (current) use of anticoagulants; Z85.528 Personal history of other malignant neoplasm of kidney; Z86.718 Personal history of other venous thrombosis and embolism; Z86.711 Personal history of pulmonary embolism
CPT/HCPCS: 52204; 52283; 36415; 85610; 85730; 88305; J0690; J2704; J3010; J3301; J7120

== ENCOUNTER 2023-07-27 01:38 | Day surgery (SDC) | payer OTHER, SELFPAY ==
[2023-07-21 12:32] VITALS: BMI 30.2
[2023-07-27 08:38] VITALS: BP 118/59; PULSE 82; RESP 18; TEMP 36.8; O2SAT 100
[2023-07-27] MEDS: LACTATED RINGERS 1,000 ML 150 ML IV CONT (08:50)
--- NOTE | 2023-07-27 09:10 | PM.HPGS ---
History of Present Illness History of Present Illness Consent: Risks, benefits, and alternatives have been discussed and questions answered. Patient agrees to proceed with procedure. Chief complaint: other fecal abnormalities Narrative: Iza Gayle is a 67 year old female Presents for screening colonoscopy. Patient recently found to have positive Cologuard test. Patient's current weight appetite and bowel movements are normal. Patient denies abdominal pain. She has had no bleeding. Family history noncontributory. Review of Systems Review of Systems: Review of systems noncontributory. [facility] Past Medical History Medical History A-fib Adult BMI 34.0-34.9 kg/sq m Angina of effort Anxiety Arthritis Atypical chest pain Back pain Cancer of left kidney COPD (chronic obstructive pulmonary disease) Early satiety Essential (primary) hypertension GERD (gastroesophageal reflux disease) Glaucoma Gout Hemorrhoids History of pulmonary embolism History of tobacco abuse Hx of deep venous thrombosis Hypersomnolence Hypothyroidism Migraine Osteoporosis Peripheral vascular disease, unspecified Pulmonary embolism Regurgitation of food Renal disease Shortness of Breath Sleep apnea UTI (urinary tract infection) Ventral hernia Wrist fracture, bilateral Surgical History Surgical History History of hysterectomy History of nephrectomy Hx of appendectomy Hx of cardiac catheterization Hx of cataract surgery Hx of cholecystectomy Hx of foot surgery Hx of heart artery stent Hx of splenectomy Hx of tubal ligation Hx of ventral hernia repair with mesh S/P femoral-femoral bypass surgery rt leg Status post total replacement of right shoulder Family History Family History Mother Family history of Alzheimer's disease, Onset Age: 82 Patient's mother is Sibling Family history of diabetes mellitus in first degree relative Diabetes mellitus Family history of congenital heart disease Father Family history of emphysema Family history of congenital heart disease Other Hypertension Social History Social History Smoking packs per day: 0.5 Smoking cigarettes per day: 10.0 Years smoked: 35 Smoking pack-years: 17.50 Smoking status: Former smoker Tobacco type: cigarettes Second hand tobacco smoke exposure: No Smoking end date: 05/13/15 Additional smoking assessment comments: STATES 1/2PK/DAY/35YRS-QUIT 2013 Alcohol intake: current Substance use: never Substance use type: does not use Lack of Transportation: No Lack of Food: Never True Current Housing: I Have Housing Concerned About Future Housing: No Difficulty Paying Gas/Electric Bills: No Difficulty Paying for Meds: No Currently Unemployed: No Education: High School Diploma/GED Difficulty w/ Childcare or Family Care: No Living arrangements: with family Additional living arrangements comments: SON Occupation/Education: retired Gender identity (if verbalized by the patient): Female Spiritual care concerns: No Meds Home Medications and Allergies Home Medications Medication Instructions Recorded Confirmed Type clopidogrel 75 mg tablet (Plavix) 75 mg PO QAM 12/02/19 07/27/23 History lansoprazole 15 mg capsule,delayed 15 mg PO PRN PRN HEARTBURN 12/02/19 07/27/23 History release (Prevacid) nitroglycerin 0.4 mg sublingual 0.4 mg sublingual Q5M PRN Chest 12/02/19 07/27/23 History tablet Pain oxybutynin chloride 15 mg 15 mg PO DAILY 12/02/19 07/27/23 History tablet,extended release 24 hr ranolazine 500 mg tablet,extended 500 mg PO BID 03/24/21 07/27/23 History release,12 hr albuterol sulfate 90 mcg/actuation 1 inh inhalation Q4-6H PRN 01/04/22 07/27/23 Rx aero
--- NOTE | 2023-07-27 09:11 | WPDANESEPPF ---
Anes - Initial Pre Proc Eval Procedure: Operation Date: 07/27/23 10:00 Proposed Procedures p Colonoscopy - Judd Walters MD Date/Time: 07/27/23 09:11 Surgeon: Judd Walters MD Pre Op Diagnosis: other fecal abnormalities Patient Data Age: 67 Gender: F Height: 1.57 m Weight: 74.6 kg Last Vital Signs Temp 36.8 C 07/27/23 08:38 Pulse 82 07/27/23 08:38 Resp 18 07/27/23 08:38 BP 118/59 L 07/27/23 08:38 Pulse Ox 100 07/27/23 08:38 O2 Del Method Room Air 07/27/23 08:38 Allergies Allergy/AdvReac Type Severity Reaction Status Date / Time No Known Allergies Allergy Verified 07/27/23 08:36 Home Medications Medication Instructions Recorded Confirmed Type clopidogrel 75 mg tablet (Plavix) 75 mg PO QAM 12/02/19 07/27/23 History lansoprazole 15 mg capsule,delayed 15 mg PO PRN PRN HEARTBURN 12/02/19 07/27/23 History release (Prevacid) nitroglycerin 0.4 mg sublingual 0.4 mg sublingual Q5M PRN Chest 12/02/19 07/27/23 History tablet Pain oxybutynin chloride 15 mg 15 mg PO DAILY 12/02/19 07/27/23 History tablet,extended release 24 hr ranolazine 500 mg tablet,extended 500 mg PO BID 03/24/21 07/27/23 History release,12 hr albuterol sulfate 90 mcg/actuation 1 inh inhalation Q4-6H PRN 01/04/22 07/27/23 Rx aerosol inhaler shortness of breath or wheezing #8.5 grams calcium carb 300 mg-D3 20 mcg-mag 1 tablet PO DAILY 05/23/22 07/27/23 History ox 25 mg-picture copyist 0.5 [id number] tablet (Caltrate-D3 Plus Minerals) ondansetron HCl 4 mg tablet 4 - 8 mg PO Q8H PRN nausea and 01/06/23 07/27/23 Rx vomiting #12 tabs Stiolto Respimat 2.5 mcg-2.5 2 puff inhalation QAM #4 grams 01/20/23 07/27/23 Rx mcg/actuation solution for inhalation (tiotropium-olodaterol) acetaminophen 500 mg tablet 1,000 mg PO Q6H PRN Pain 02/24/23 07/27/23 History cephalexin 250 mg tablet 250 mg PO HS 02/24/23 07/27/23 History cholecalciferol (vitamin D3) 125 125 mcg PO DAILY 02/24/23 07/27/23 History mcg (5,000 unit) capsule carvedilol 25 mg tablet 25 mg PO Q12H #180 tabs 03/22/23 07/27/23 Rx felodipine 10 mg tablet,extended 10 mg PO QAM #90 tabs 03/22/23 07/27/23 Rx release 24 hr folic acid 1 mg tablet 1 mg PO DAILY #90 tabs 04/21/23 07/27/23 Rx rosuvastatin 40 mg tablet 40 mg PO DAILY 05/09/23 07/27/23 History levothyroxine 88 mcg tablet 88 mcg PO QAM #90 tabs 05/23/23 07/27/23 Rx lisinopril 10 mg tablet 10 mg PO QAM #90 tabs 06/25/23 07/27/23 Rx rivaroxaban 20 mg tablet (Xarelto) 20 mg PO DAILY #30 tabs 07/04/23 07/27/23 Rx Patient hx anesthesia problems: none Family hx anesthesia problems: none Results Review: All pre-operative results and documents have been reviewed as part of the pre-operative evaluation. [facility] Past Medical History Medical History A-fib Adult BMI 34.0-34.9 kg/sq m Angina of effort Anxiety Arthritis Atypical chest pain Back pain Cancer of left kidney COPD (chronic obstructive pulmonary disease) Early satiety Essential (primary) hypertension GERD (gastroesophageal reflux disease) Glaucoma Gout Hemorrhoids History of pulmonary embolism History of tobacco abuse Hx of deep venous thrombosis Hypersomnolence Hypothyroidism Migraine Osteoporosis Peripheral vascular disease, unspecified Pulmonary embolism Regurgitation of food Renal disease Shortness of Breath Sleep apnea UTI (urinary tract infection) Ventral hernia Wrist fracture, bilateral Surgical History Surgical History History of hysterectomy History of nephrectomy Hx of appendectomy Hx of cardiac catheterization Hx of cataract surgery Hx of cholecystectomy Hx of foot surgery Hx of heart artery stent Hx of splenectomy Hx of tubal ligation Hx of ventral hernia repair with mesh S/P femoral-femoral bypass surgery rt leg Status post total replacement of right shoulder Family History Fam
[2023-07-27] MEDS: SIMETHICONE ORAL SUSPENSION 20 MG/0.3 ML 30 ML BOTTLE 0.6 ML IRRIGATION (10:03)
[2023-07-27 10:10] VITALS: BP 109/86; PULSE 71; RESP 20; O2SAT 96
[2023-07-27 10:20] VITALS: BP 113/55; PULSE 72; RESP 22; O2SAT 100
[2023-07-27 10:30] VITALS: BP 102/65; PULSE 69; RESP 20; O2SAT 100
== END 2023-07-27 10:42 | disposition home or self-care (01) ==
PROVIDERS: PCP Internal Medicine; Visit Provider Internal Medicine Gastroenterology
PROC: 0DJD8ZZ Inspection of Lower Intestinal Tract, Via Natural or Artificial Opening Endoscopic (ICD-10-PCS; CPT 45378; principal; 2023-07-27 10:00)
DX: Z12.11 Encounter for screening for malignant neoplasm of colon (principal); R19.5 Other fecal abnormalities; I48.91 Unspecified atrial fibrillation; J44.9 Chronic obstructive pulmonary disease, unspecified; I10 Essential (primary) hypertension; K21.9 Gastro-esophageal reflux disease without esophagitis; H40.9 Unspecified glaucoma; I73.9 Peripheral vascular disease, unspecified; M10.9 Gout, unspecified; E03.9 Hypothyroidism, unspecified; M81.0 Age-related osteoporosis without current pathological fracture; Z86.711 Personal history of pulmonary embolism; Z86.718 Personal history of other venous thrombosis and embolism; Z79.02 Long term (current) use of antithrombotics/antiplatelets; Z79.51 Long term (current) use of inhaled steroids; Z79.01 Long term (current) use of anticoagulants; Z95.5 Presence of coronary angioplasty implant and graft; Z87.891 Personal history of nicotine dependence; E66.9 Obesity, unspecified; Z68.30 Body mass index [BMI] 30.0-30.9, adult
CPT/HCPCS: G0121; J2704; J7120

== ENCOUNTER 2023-09-11 10:32 | Outpatient (CLI) | payer OTHER, SELFPAY ==
--- NOTE | ~2023-09-11 | CT_ITS ---
EXAMINATION: CT lung screening DATE: 09/11/2023 11:48 INDICATION: Personal history of nicotine dependence TECHNIQUE: Computed tomography (CT) of the chest was performed without intravenous contrast. The dose -length product was 110.67 mGy-cm. Automated exposure control and iterative reconstruction technique were employed. COMPARISON: CT dated 09/09/2022 FINDINGS: Heart size is normal. No significant pleural or pericardial effusion. There are cholecystec leslee clips. No thoracic lymphadenopathy. Left lateral posterior abdominal wall muscular defect with h erniated bowel which is not obstructed. Stable left upper abdominal wall soft tissue mass measuring 3 .1 cm, likely benign adrenal adenoma or atrophic kidney. No significant pleural or pericardial effusi on. No thoracic lymphadenopathy. There are bilateral calcified granulomas in the lung parenchyma. No endobronchial lesions. No pneumothorax. Mild thoracic spondylosis. IMPRESSION: 1. Lung-RADS category 1: Negative. Continue annual screening with noncontrast low-dose chest CT in 12 months. Reviewed, dictated and finalized at location A. IMPRESSION: 1. Lung-RADS category 1: Negative. Continue annual screening with noncontrast l ow-dose chest CT in 12 months.
== END 2023-09-11 10:33 | disposition home or self-care (01) ==
PROVIDERS: PCP Internal Medicine; Visit Provider Physician Assistant
DX: Z12.2 Encounter for screening for malignant neoplasm of respiratory organs (principal); Z87.891 Personal history of nicotine dependence
CPT/HCPCS: 71271

== ENCOUNTER → 2023-11-14 13:56 | Outpatient (CLI) | payer OTHER, SELFPAY ==
--- NOTE | ~2023-11-14 | MM_ITS ---
EXAMINATION: MM screening [facility] BI w eugenio HISTORY: Screening mammogram TECHNIQUE: Craniocaudal and mediolateral oblique 3-D tomosynthesis images were obtained and synthetic 2-D images were generated. CAD analysis was submitted and interpreted. COMPARISON: 11/03/2022, 10/01/2021, 09/29/2020 BREAST PARENCHYMAL COMPOSITION: There are scattered areas of fibroglandular density. FINDINGS: No suspicious mass, calcification, or architectural distortion are identified in either denise ast to suggest malignancy. There has been no suspicious interval change. IMPRESSION: 1. No mammographic evidence of malignancy. 2. Recommend routine screening mammography in one year. BI-RADS Category 1: Negative Reviewed, dictated and finalized at location A. BUILDER
== END ==
PROVIDERS: PCP Internal Medicine; Visit Provider Nurse Practitioner
DX: Z12.31 Encounter for screening mammogram for malignant neoplasm of breast (principal)
CPT/HCPCS: 77063; 77067

== ENCOUNTER 2024-02-08 08:14 | Outpatient (CLI) | payer OTHER, SELFPAY ==
[2024-02-08 09:23] LABS: INR 2.2; Prothrombin Time 25.9 Seconds (11.1-14.7)
[2024-02-08 09:29] LABS: Anion Gap 10 mmol/L (4-12); Blood Urea Nitrogen 17 mg/dL (7-17); Calcium 9.2 mg/dL (8.4-10.2); Carbon Dioxide 21 mmol/L (22-30); Chloride 108 mmol/L (98-107); Estimated Glomerular Filt Rate 35; Glucose 106 mg/dL (65-110); Potassium 4.3 mmol/L (3.4-5.0); Sodium 139 mmol/L (137-145)
== END 2024-02-08 08:15 | disposition home or self-care (01) ==
LOC: ANHSURGERY 08:19
PROVIDERS: Anesthesiology; PCP Internal Medicine; Visit Provider Urology
DX: N30.10 Interstitial cystitis (chronic) without hematuria (principal); N18.32 Chronic kidney disease, stage 3b; Z01.818 Encounter for other preprocedural examination
CPT/HCPCS: 36415; 80048; 85610; 85730; 87077; 87086; 87088; 87186

== ENCOUNTER 2024-02-16 01:34 | Day surgery (SDC) | payer OTHER, SELFPAY ==
[2024-02-06 11:10] VITALS: BMI 29.8
--- NOTE | 2024-02-06 11:31 | PC.NURSE ---
Report to the Outpatient Waiting Room, entrance under the green pavilion located off [facility], at time ___8:30AM____ on date __02/16/24 . Planned Procedure Time: __10:30AM . Time changes happen often and if your time is changed the preop area will call you the afternoon before. - You and your visitor will be asked to self-screen and do not enter if you have any COVID symptoms. - A mask is optional within the hospital at this time. Patients may have clear liquids (water, carbonated beverages, clear teas, apple juice) until 3 hours prior to surgery with a maximum of 20 ounces. - No food from midnight until time of surgery. Take the following medications with a SIP of water the morning of surgery: ___CARVEDILOL, FELODIPINE, LEVOTHYROXINE, RANOLAZINE, METHENAMINE, STIOLTO INHALER. USE ALBUTEROL INHALER NEEDED DO NOT STOP ANY OF YOUR OTHER PRESCRIPTION MEDICATIONS PRIOR TO SURGERY ?EXCEPT THE FOLLOWING Medications to discontinue per physician ____HOLD PLAVIX AND VITAMINS/SUPPLEMENTS 7 DAYS PRE-OP PER DR FRANK- LAST DOSE 02/08/24. HOLD XERALTO 1 DAY PRE-OP- LAST DOSE 02/14/24 Please no make-up, nail lao, hairspray, perfume, deodorant, or body powder the day of surgery. No jewelry (including any body piercings) or valuables the day of surgery, leave them at home. Please take a shower or bath the night before, or the morning of, surgery with an antibacterial soap. Wear comfortable, loose fitting clothing. - Jewelry must be removed prior to entering the operating room. Rings and piercings that are not removed may be cut off. - The hospital will not accept responsibility for valuables. - Please leave all valuables, including medications, at home the day of surgery. If you are going home after surgery, a licensed hazardous materials driver must drive you home. - NO public transportation without another adult if you receive anesthesia. - We recommend that an adult stay with you for 24 hours following discharge. - We also recommend that you do not drive, make important decision, drink alcoholic beverages, or take any drugs that were not prescribed by your health care provider for at least 24 hours after your discharge time. Follow any additional instructions given to you from your surgeon. If you or anyone in your household have experienced Covid symptoms in the past week, please notify your surgeon or the nurse liaison at the phone number below for possible testing. Telephone instructions given to ____PATIENT and asked if any additional questions and then verbalized understanding. Patient advised to call surgeon office or pre surgery nurse liaison [phone] if any additional questions.
--- NOTE | 2024-02-11 11:43 | PM.IMHP ---
H&P: HPI History of Present Illness Date/Time: 02/11/24 11:43 Chief Complaint: Hunner ulcer Narrative: ready for another steroid injection Review of Systems Review of Systems: All systems reviewed & are unremarkable except as noted in HPI and below PMFSH Past Medical History Medical History A-fib Adult BMI 34.0-34.9 kg/sq m Angina of effort Anxiety Arthritis Atypical chest pain Back pain Cancer of left kidney COPD (chronic obstructive pulmonary disease) Early satiety Essential (primary) hypertension GERD (gastroesophageal reflux disease) Glaucoma Gout Hemorrhoids History of pulmonary embolism History of tobacco abuse Hx of deep venous thrombosis Hypersomnolence Hypothyroidism Migraine Osteoporosis Peripheral vascular disease, unspecified Pulmonary embolism Regurgitation of food Renal disease Shortness of Breath Sleep apnea UTI (urinary tract infection) Ventral hernia Wrist fracture, bilateral Surgical History Surgical History History of hysterectomy History of nephrectomy Hx of appendectomy Hx of cardiac catheterization Hx of cataract surgery Hx of cholecystectomy Hx of foot surgery Hx of heart artery stent Hx of splenectomy Hx of tubal ligation Hx of ventral hernia repair with mesh S/P femoral-femoral bypass surgery rt leg Status post total replacement of right shoulder Family History Family History Mother Family history of Alzheimer's disease, Onset Age: 82 Patient's mother is Sibling Family history of diabetes mellitus in first degree relative Diabetes mellitus Family history of congenital heart disease Father Family history of emphysema Family history of congenital heart disease Other Hypertension Social History Social History Smoking packs per day: 0.5 Smoking cigarettes per day: 10.0 Years smoked: 40 Smoking pack-years: 20.00 Smoking status: Former smoker Tobacco type: cigarettes Second hand tobacco smoke exposure: No Smoking end date: 05/13/14 Additional smoking assessment comments: STATES 1/2PK/DAY/[id number]-QUIT 2013 Alcohol intake: current Substance use: never Substance use type: does not use Do You Feel Safe in your Home?: Yes Lack of Transportation: No Lack of Food: Never True Current Housing: I Have Housing Concerned About Future Housing: No Difficulty Paying Gas/Electric Bills: No Difficulty Paying for Meds: No Currently Unemployed: No Education: High School Diploma/GED Difficulty w/ Childcare or Family Care: No Living arrangements: with family Additional living arrangements comments: SON Occupation/Education: retired Gender identity (if verbalized by the patient): Female Spiritual care concerns: No Meds Home Medications and Allergies Home Medications Medication Instructions Recorded Confirmed Type clopidogrel 75 mg tablet (Plavix) 75 mg PO QAM 12/02/19 02/06/24 History nitroglycerin 0.4 mg sublingual 0.4 mg sublingual Q5M PRN Chest 12/02/19 02/06/24 History tablet Pain oxybutynin chloride 15 mg 15 mg PO DAILY 12/02/19 02/06/24 History tablet,extended release 24 hr ranolazine 500 mg tablet,extended 500 mg PO BID 03/24/21 02/06/24 History release,12 hr albuterol sulfate 90 mcg/actuation 1 inh inhalation Q4-6H PRN 01/04/22 02/06/24 Rx aerosol inhaler shortness of breath or wheezing #8.5 grams calcium carb 300 mg-D3 20 mcg-mag 1 tablet PO DAILY 05/23/22 02/06/24 History ox 25 mg-service technician copier 0.5 [id number] tablet (Caltrate-D3 Plus Minerals) cholecalciferol (vitamin D3) 125 125 mcg PO DAILY 02/24/23 02/06/24 History mcg (5,000 unit) capsule carvedilol 25 mg tablet 25 mg PO Q12H #180 tabs 03/22/23 02/06/24 Rx rosuvastatin 40 mg tablet 40 mg PO
--- NOTE | 2024-02-15 11:44 | WPDANESEPPF ---
Anes - Initial Pre Proc Eval Procedure: Operation Date: 02/16/24 09:15 Proposed Procedures p Cystoscopy, Bladder Biopsy, Steroid Injection - Lazaro Juarez MD Date/Time: 02/15/24 11:44 Surgeon: Lazaro Juarez MD Pre Op Diagnosis: cystitis, hunners ulcer Patient Data Age: 68 Gender: F Height: 1.57 m Weight: 74 kg Allergies Allergy/AdvReac Type Severity Reaction Status Date / Time No Known Allergies Allergy Verified 02/16/24 08:38 Home Medications Medication Instructions Recorded Confirmed Type clopidogrel 75 mg tablet (Plavix) 75 mg PO QAM 12/02/19 02/06/24 History nitroglycerin 0.4 mg sublingual 0.4 mg sublingual Q5M PRN Chest 12/02/19 02/06/24 History tablet Pain oxybutynin chloride 15 mg 15 mg PO DAILY 12/02/19 02/06/24 History tablet,extended release 24 hr ranolazine 500 mg tablet,extended 500 mg PO BID 03/24/21 02/06/24 History release,12 hr albuterol sulfate 90 mcg/actuation 1 inh inhalation Q4-6H PRN 01/04/22 02/06/24 Rx aerosol inhaler shortness of breath or wheezing #8.5 grams calcium carb 300 mg-D3 20 mcg-mag 1 tablet PO DAILY 05/23/22 02/06/24 History ox 25 mg-copper etcher 0.5 [id number] tablet (Caltrate-D3 Plus Minerals) cholecalciferol (vitamin D3) 125 125 mcg PO DAILY 02/24/23 02/06/24 History mcg (5,000 unit) capsule rosuvastatin 40 mg tablet 40 mg PO DAILY 05/09/23 02/06/24 History felodipine 10 mg tablet,extended 10 mg PO QAM #90 tabs 10/10/23 02/06/24 Rx release 24 hr ondansetron HCl 4 mg tablet 4 - 8 mg PO Q8H PRN nausea and 11/08/23 02/06/24 Rx vomiting #12 tabs levothyroxine 88 mcg tablet 88 mcg PO QAM #90 tabs 11/21/23 02/06/24 Rx folic acid 1 mg tablet 1 mg PO DAILY #90 tabs 12/06/23 02/06/24 Rx zoledronic acid 5 mg/100 mL in 1 ea IV DIRECTED 12/11/23 02/06/24 History mannitol 5 %-water intravenous piggybck Stiolto Respimat 2.5 mcg-2.5 See Rx Instructions .Route 12/22/23 02/06/24 Rx mcg/actuation solution for .COMPLEX #4 grams inhalation (tiotropium-olodaterol) methenamine hippurate 1 gram tablet 1 g PO BID 02/06/24 02/06/24 History rivaroxaban 20 mg tablet (Xarelto) 20 mg PO HS 02/06/24 02/06/24 History carvedilol 25 mg tablet 25 mg PO Q12H #180 tabs 02/15/24 02/16/24 Rx hydrocodone 5 mg-acetaminophen 325 1 tablet PO Q6H PRN pain #20 tabs 02/16/24 Rx mg tablet Patient hx anesthesia problems: none Family hx anesthesia problems: none Results Review: All pre-operative results and documents have been reviewed as part of the pre-operative evaluation. [facility] Past Medical History Medical History (Updated 02/15/24 @ 11:45 by Larry Moreira DO) A-fib AAA (abdominal aortic aneurysm) Adult BMI 34.0-34.9 kg/sq m Angina of effort Anxiety Arthritis Atypical chest pain Back pain Cancer of left kidney COPD (chronic obstructive pulmonary disease) Early satiety Essential (primary) hypertension GERD (gastroesophageal reflux disease) Glaucoma Gout Hemorrhoids History of pulmonary embolism History of tobacco abuse Hx of deep venous thrombosis Hypersomnolence Hypothyroidism Migraine Osteoporosis Peripheral vascular disease, unspecified Pulmonary embolism Regurgitation of food Renal disease Shortness of Breath Sleep apnea UTI (urinary tract infection) Ventral hernia Wrist fracture, bilateral Surgical History Surgical History (Updated 02/15/24 @ 11:45 by Larry Moreira DO) History of hysterectomy History of nephrectomy Hx of appendectomy Hx of cardiac catheterization Hx of cataract surgery Hx of cholecystectomy Hx of foot surgery Hx of heart artery stent x1, 2015 Hx of splenectomy Hx of tubal ligation Hx of ventral hernia repair with mesh S/P femoral-femoral bypass surgery rt leg Status post total replacement of right shoulder Family History Family History Mother Family history of Alzheimer's disease, Onset Age: 82 Pa
--- NOTE | 2024-02-16 04:37 | WPDHPUPDATE1 ---
History and Physical Update Update Date/Time: 02/16/24 04:37 History and Physical has been reviewed, including an updated exam of the patient. There are NO changes in the patient's condition. Risks, benefits, and alternatives have been discussed and questions answered. Patient agrees to proceed with procedure.
[2024-02-16 08:37] VITALS: BP 138/66; PULSE 91; RESP 18; TEMP 37.3; O2SAT 99
[2024-02-16] MEDS: LACTATED RINGERS 1,000 ML 30 ML IV CONT (08:53)
[2024-02-16 09:06] LABS: INR 1.2; Prothrombin Time 15.3 Seconds (11.1-14.7)
[2024-02-16] MEDS: ceFAZolin 2 GM/D5W 50 ML 2 GM/50 ML BAG IVPB (09:08)
[2024-02-16] MEDS: TRIAMCINOLONE ACET INJ 40 MG/ML VIAL 200 MG IM (09:12)
[2024-02-16] MEDS: LIDOCAINE HCL 2% GEL UROJET 10 ML PKG MUCOUS MEM (09:14)
--- NOTE | 2024-02-16 09:22 | P.OP_ITS ---
Procedure Note - Detailed Date of Procedure 02/16/24 Pre-op Diagnosis cystitis, hunners ulcer Post-op Diagnosis Same Procedure Performed Cystoscopy, bladder biopsy, injection of steroid Surgeon Lazaro Juarez MD Anesthesia MAC and Local (Uro jet) Indications She has recurrent Hunner's ulcerations. She is here today for repeat treatment. She understands risks of bleeding, infection, damage to the urinary tract, need for repeat procedures. She agrees to proceed Findings Hunner's ulceration on posterior wall. Two lesions total Description of Procedure She was correctly identified. Informed consent obtained. She was from the operating room. She was given monitored anesthesia care. She was placed in dorsal lithotomy position. She was prepped and draped sterile fashion. Time- out performed. On cystoscopy she has a small capacity bladder. Easy to identify the right ureteral orifice. Left ureteral orifice was hard to identify. She had 2 areas of Hunner's ulceration on the back wall. Both remote from the ureters. I biopsied 1 of these areas. There is some stiffness to the bladder due to the inflammation. I then injected steroids. 20 mg of Kenalog. A concentration of 40 mg per mil. I injected the ulcerated areas. There was minimal bleeding the injection sites which were fulgurated. Again all fulguration done away from the orifice. Her bladder was examined under low insufflation pressures. There was no active bleeding. She was awakened transferred to PACU in stable condition. Implants None Estimated Blood Loss 2 Pathology Yes (Bladder biopsy) Complications No immediate complications Condition Stable Disposition PACU
[2024-02-16 09:23] VITALS: BP 98/45; PULSE 77; RESP 16; O2SAT 96
[2024-02-16 09:50] VITALS: BP 118/56; PULSE 75; RESP 16
[2024-02-16 10:20] VITALS: BP 115/76; PULSE 76; RESP 16
== END 2024-02-16 10:40 | disposition home or self-care (01) ==
PROVIDERS: Anesthesiology; PCP Internal Medicine; Visit Provider Urology
PROC: 0TBB8ZX Excision of Bladder, Via Natural or Artificial Opening Endoscopic, Diagnostic (ICD-10-PCS; CPT 52204; principal; 2024-02-16 09:15)
DX: N30.10 Interstitial cystitis (chronic) without hematuria (principal); I48.91 Unspecified atrial fibrillation; I71.40 Abdominal aortic aneurysm, without rupture, unspecified; J44.9 Chronic obstructive pulmonary disease, unspecified; I10 Essential (primary) hypertension; K21.9 Gastro-esophageal reflux disease without esophagitis; H40.9 Unspecified glaucoma; E03.9 Hypothyroidism, unspecified; M81.0 Age-related osteoporosis without current pathological fracture; Z86.711 Personal history of pulmonary embolism; Z86.718 Personal history of other venous thrombosis and embolism; Z85.528 Personal history of other malignant neoplasm of kidney; Z90.5 Acquired absence of kidney; Z95.5 Presence of coronary angioplasty implant and graft; Z79.02 Long term (current) use of antithrombotics/antiplatelets; Z79.51 Long term (current) use of inhaled steroids; Z79.01 Long term (current) use of anticoagulants; Z79.891 Long term (current) use of opiate analgesic; Z87.891 Personal history of nicotine dependence
CPT/HCPCS: 52204; 52283; 36415; 80048; 85610; 85730; 87077; 87086; 87088; 87186; 88305; J0690; J1100; J2250; J2405; J2704; J3010; J3301; J7120

== ENCOUNTER 2024-07-10 08:16 | Outpatient (CLI) | payer OTHER, SELFPAY ==
--- NOTE | ~2024-07-10 | CT_ITS ---
Non-contrast CT scan of the Abdomen and Pelvis Clinical indication: Incisional hernia Technique: 2.5 mm axial scans were obtained through the abdomen and pelvis without intravenous or or al contrast. Dose reduction technique was used on this scan by utilizing automated exposure control a nd iterative reconstruction technique. The dose-length product (DLP) was 660.62 mGy-cm. COMPARISON: 09/26/2022 Findings: Images through the lung bases reveal no abnormalities. The liver, pancreas, right kidney, and adrenals appear normal. Cholecystectomy clips are present. Sta tus post splenectomy and left nephrectomy. There are atherosclerotic calcifications of the aorta, wit h 4.0 cm infrarenal abdominal aortic aneurysm present.. There is no evidence of bowel obstruction. There is a ventral/umbilical hernia containing a focal loo p of small bowel. No bowel wall thickening. Images through the pelvis were performed. There is no evidence of ascites or lymphadenopathy. Urinary bladder unremarkable. No pelvic mass seen. Femorofemoral bypass noted. Impression: Ventral/umbilical hernia containing a loop of small bowel. No bowel obstruction or bowel wall thicken ing. Postoperative changes, as above. 4.0 cm infrarenal abdominal aortic aneurysm. Reviewed, dictated and finalized at [facility]. Impression: Ventral/umbilical hernia containing a loop of small bowel. No bowel obstruction or bowel wall thickening. Postoperative changes, as above. 4.0 cm infrarenal abdominal aortic aneurysm.
== END 2024-07-10 08:17 ==
LOC: MICIMG 08:17
PROVIDERS: PCP Internal Medicine
DX: K43.2 Incisional hernia without obstruction or gangrene (principal); I71.43 Infrarenal abdominal aortic aneurysm, without rupture
CPT/HCPCS: 74176

== ENCOUNTER 2024-09-16 09:15 | Outpatient (CLI) | payer OTHER, SELFPAY ==
--- NOTE | ~2024-09-16 | CT_ITS ---
CT Scan of the Chest without Contrast: Clinical Indication: Lung cancer screening, nicotine dependence Technique: Contiguous sections were acquired throughout the chest without intravenous contrast. Dose reduction technique was used on this scan by utilizing automated exposure control and iterative recon struction technique. The dose-length product (DLP) was 75.35 mGy-cm. COMPARISON: 09/11/2023 Findings: There is no evidence of any significant mediastinal, hilar or axillary lymphadenopathy. Extensive cor onary artery calcifications are present. There is no evidence of pleural or pericardial effusion. The lungs are clear. No pulmonary nodules or infiltrates are noted. Images through the upper abdomen reveal surgical clips and adjacent amorphous soft tissue mass in the left upper quadrant, unchanged. Impression: Lung RADS 1: Negative. 12 month follow-up screening CT advised. Reviewed, dictated and finalized at [facility]. [facility] Impression: Lung RADS 1: Negative. 12 month follow-up screening CT advised.
== END 2024-09-16 09:16 | disposition home or self-care (01) ==
PROVIDERS: PCP Internal Medicine; Visit Provider Physician Assistant
DX: Z87.891 Personal history of nicotine dependence (principal)
CPT/HCPCS: 71271

== ENCOUNTER 2024-12-20 01:29 | Day surgery (SDC) | payer OTHER, SELFPAY ==
[2024-12-09 15:39] VITALS: BMI 30.2
--- NOTE | 2024-12-09 15:53 | PC.NURSE ---
Report to the Outpatient Waiting Room, entrance under the green pavilion located off [facility], at time _0745am on date _12/20/24 . Planned Procedure Time: _0945am .? Time changes happen often and if your time is changed the preop area will call you the afternoon before. - You and your visitor will be asked to self-screen and do not enter if you have any COVID symptoms. Please call surgeon if you need to reschedule. - A mask is optional within the hospital at this time. Patients may have clear liquids (water, carbonated beverages, clear teas, apple juice) until 3 hours prior to surgery with a maximum of 20 ounces. - No food from midnight until time of surgery and no smoking. This includes no chewing gum, candy or mints. (0645am) Take only the following medications with a SIP of water on the morning of surgery: ___Coreg, Felodipine, Ranexa, Isosorbide, Levothyroxine, Stioloto and Albuteral inhaler __Hydrocodone if needed DO NOT STOP ANY OF YOUR OTHER PRESCRIPTION MEDICATIONS PRIOR TO SURGERY EXCEPT THE FOLLOWING Medications to discontinue per physician ____HOLD COUMADIN 5 days prior to surgery per Dr Juarez Date to take last dose____12/14/24 Hold the Aspirin and Plavix per Dr Juarez/Dr Velasco instructions, pt to verify w Dr Velasco as Surgery wants pt off for 7 days- pt will talk to DR Velasco tomorrow. Please no make-up, nail surinamese, hairspray, perfume, deodorant, or body powder the day of surgery.? No jewelry (including any body piercings) or valuables the day of surgery, leave them at home.? Please take a shower or bath the night before, or the morning of, surgery with an antibacterial soap.? Wear comfortable, loose fitting clothing.? - Jewelry must be removed prior to entering the operating room.? Rings and piercings that are not removed may be cut off. - The hospital will not accept responsibility for valuables.? - Please leave all valuables, including medications, at home the day of surgery. If you are going home after surgery, a licensed tour bus driver/guide must drive you home.? - NO public transportation without another adult if you receive anesthesia. - We recommend that an adult stay with you for 24 hours following discharge. - We also recommend that you do not drive, make important decision, drink alcoholic beverages, or take any drugs that were not prescribed by your health care provider for at least 24 hours after your discharge time. Hold all vitamins and supplements for 3 days per anesthesiologist. Follow any additional instructions given to you from your surgeon. Telephone instructions given to _Patient and asked if any additional questions and then verbalized understanding. Patient advised to call surgeon office or pre surgery nurse liaison [phone] if any additional questions.
--- NOTE | 2024-12-19 12:01 | P.HP_ITS ---
H&P: HPI History of Present Illness Date/Time: 12/19/24 12:01 Chief Complaint: Hunner's ulceration Narrative: presents for repeat steroid injection Review of Systems Review of Systems: All systems reviewed & are unremarkable except as noted in HPI and below FORMERLY [facility], [facility] Past Medical History Medical History (Updated 12/19/24 @ 12:02 by Lazaro Juarez MD) Hunner's ulcer Coronary artery disease Chronic obstructive pulmonary disease Chronic kidney disease, stage 3 Abdominal aortic aneurysm mild dilatation of the distal aorta measuring 3.[address] scan in November 2024 Hypercholesterolemia Deep venous thrombosis (2014) Chronic anticoagulation Paroxysmal atrial fibrillation Essential hypertension Gastro-esophageal reflux disease without esophagitis Pulmonary embolism (2014) History of tobacco abuse Anxiety Gout Osteoporosis Arthritis Cancer of left kidney status post left nephrectomy Ventral hernia Hemorrhoids Sleep apnea does not use CPAP Migraine Glaucoma Hypothyroidism Peripheral vascular disease, unspecified Surgical History Surgical History History of right breast biopsy History of open reduction and internal fixation (ORIF) procedure repair of bilateral wrist and left foot fractures History of cystoscopy History of hernia repair History of vascular surgery bifemoral bypass left femoral and popliteal stents History of ventral hernia repair History of right shoulder replacement History of cholecystectomy History of appendectomy History of left nephrectomy History of splenectomy retroperitoneal fibrosis History of tubal ligation History of cataract extraction History of coronary artery stent placement (2014) Hx of foot surgery History of hysterectomy Family History Family History Mother Family history of Alzheimer's disease, Onset Age: 82 Sibling Family history of diabetes mellitus in first degree relative Diabetes mellitus Family history of congenital heart disease Father Family history of emphysema Family history of congenital heart disease Other Hypertension Social History Social History (Updated 11/25/24 @ 23:32 by Loren Kumar PA-C) Social History: Surrogate medical decision maker: Amrit Gallardo, son. Code status: Full code. Smoking packs per day: 0.5 Smoking cigarettes per day: 10.0 Years smoked: 30 Smoking pack-years: 15.00 Smoking status: Former smoker Tobacco type: cigarettes Second hand tobacco smoke exposure: No Smoking end date: 11/13/14 Additional smoking assessment comments: quit 2013 Alcohol intake: never Substance use: never Substance use type: does not use Do You Feel Safe in your Home?: Yes Lack of Transportation: No Lack of Food: Never True Current Housing: I Have Housing Concerned About Future Housing: No Difficulty Paying Gas/Electric Bills: No Difficulty Paying for Meds: No Currently Unemployed: No Education: High School Diploma/GED Difficulty w/ Childcare or Family Care: No Living arrangements: with family Additional living arrangements comments: Son Occupation/Education: retired Gender identity (if verbalized by the patient): Female Spiritual care concerns: No Meds Home Medications and Allergies Home Medications ?Medication ?Instructions ?Recorded ?Confirmed ?Type clopidogrel 75 mg tablet (Plavix) 75 mg PO QAM 12/02/19 12/09/24 History nitroglycerin 0.4 mg sublingual 0.4 mg sublingual Q5M PRN Chest 12/02/19 12/09/24 History tablet Pain oxybutynin chloride 15 mg 15 mg PO DAILY 12/02/19 12/09/24 History tablet,extended release 24 hr ranolazine 500 mg tablet,extended 500 mg PO BID 03/24/21 12/09/24 History release,12 hr rosuvastatin 40 mg tablet 40 mg PO DAILY 05/09/23 12/09/24 History ondansetron HCl 4 mg tablet 4 - 8 mg (1 - 2 x 4 mg) PO Q8H PRN 11/08/23 12/09/24 Rx nausea and vomiting #12 tabs zoledronic acid 5 mg/100 mL in 1 ea IV DIRECTED 12/11/23 12/09/24 History mannitol 5 %-water intravenous piggybck methenamine hippurate 1 gram tablet 1 g PO BID 02/06/24 12/09/24 History carvedilol 25 mg tablet 25 mg PO Q12H #180 tabs 02/15/24 12/09/24 Rx felodipine 10 mg tablet,extended 10 mg PO QAM #90 tabs 04/16/24 12/09/24 Rx release 24 hr Stiolto Respimat 2.5 mcg-2.5 See Rx Instructions .Route 05/01/24 12/09/24 Rx mcg/actuation solution for .COMPLEX #12 grams inhalation (tiotropium-olodaterol) folic acid 1 mg tablet 1 mg PO DAILY #90 tabs 05/22/24 12/09/24 Rx levothyroxine 88 mcg tablet 88 mcg PO QAM #90 tabs 05/22/24 12/09/24 Rx albuterol sulfate 90 mcg/actuation 1 - 2 inh inhalation Q4-6H PRN 06/07/24 12/09/24 Rx aerosol inhaler shortness of breath or wheezing #8.5 grams warfarin 3 mg tablet See Rx Instructions .Route 11/22/24 12/09/24 Rx .COMPLEX #45 tabs isosorbide mononitrate 30 mg 30 mg PO DAILY 11/25/24 12/09/24 History tablet,extended release 24 hr aspirin 81 mg capsule 81 mg PO DAILY #30 caps 12/05/24 12/09/24 Rx hydrocodone 5 mg-acetaminophen 325 1 tablet PO Q6H PRN pain #7 tabs 12/05/24 12/09/24 Rx mg tablet polyethylene glycol 3350 17 gram 17 g PO QAM #1 ea 12/05/24 12/09/24 Rx oral powder packet (Miralax) Allergies Allergy/AdvReac Type Severity Reaction Status Date / Time No Known Allergies Allergy Verified 12/09/24 15:33 Exam Narrative: no acute distress normal breathing alert oriented x3 Assessment and Plan Assessment and plan (1) Hunner's ulcer: Code(s): N30.10 - Interstitial cystitis (chronic) without hematuria Status: Acute Assessment and Plan: cystoscopy, bladder biopsy, steroid injections
--- NOTE | 2024-12-19 17:16 | P.PNAN_ITS ---
Anes - Initial Pre Proc Eval Procedure: Operation Date: 12/20/24 08:15 Proposed Procedures p Cystoscopy, Bladder Biopsy with Steroid Injection - Lazaro Juarez MD Date/Time: 12/19/24 17:16 Surgeon: Lazaro Juarez MD Pre Op Diagnosis: hunners ulcer Patient Data Age: 69 Gender: F Height: 1.57 m Weight: 75 kg Allergies Allergy/AdvReac Type Severity Reaction Status Date / Time No Known Allergies Allergy Verified 12/20/24 07:06 Home Medications ?Medication ?Instructions ?Recorded ?Confirmed ?Type clopidogrel 75 mg tablet (Plavix) 75 mg PO QAM 12/02/19 12/09/24 History nitroglycerin 0.4 mg sublingual 0.4 mg sublingual Q5M PRN Chest 12/02/19 12/09/24 History tablet Pain oxybutynin chloride 15 mg 15 mg PO DAILY 12/02/19 12/09/24 History tablet,extended release 24 hr ranolazine 500 mg tablet,extended 500 mg PO BID 03/24/21 12/09/24 History release,12 hr rosuvastatin 40 mg tablet 40 mg PO DAILY 05/09/23 12/09/24 History ondansetron HCl 4 mg tablet 4 - 8 mg (1 - 2 x 4 mg) PO Q8H PRN 11/08/23 12/09/24 Rx nausea and vomiting #12 tabs zoledronic acid 5 mg/100 mL in 1 ea IV DIRECTED 12/11/23 12/09/24 History mannitol 5 %-water intravenous piggybck methenamine hippurate 1 gram tablet 1 g PO BID 02/06/24 12/09/24 History felodipine 10 mg tablet,extended 10 mg PO QAM #90 tabs 04/16/24 12/09/24 Rx release 24 hr Stiolto Respimat 2.5 mcg-2.5 See Rx Instructions .Route 05/01/24 12/09/24 Rx mcg/actuation solution for .COMPLEX #12 grams inhalation (tiotropium-olodaterol) folic acid 1 mg tablet 1 mg PO DAILY #90 tabs 05/22/24 12/09/24 Rx levothyroxine 88 mcg tablet 88 mcg PO QAM #90 tabs 05/22/24 12/09/24 Rx albuterol sulfate 90 mcg/actuation 1 - 2 inh inhalation Q4-6H PRN 06/07/24 12/09/24 Rx aerosol inhaler shortness of breath or wheezing #8.5 grams warfarin 3 mg tablet See Rx Instructions .Route 11/22/24 12/09/24 Rx .COMPLEX #45 tabs isosorbide mononitrate 30 mg 30 mg PO DAILY 11/25/24 12/09/24 History tablet,extended release 24 hr aspirin 81 mg capsule 81 mg PO DAILY #30 caps 12/05/24 12/09/24 Rx hydrocodone 5 mg-acetaminophen 325 1 tablet PO Q6H PRN pain #7 tabs 12/05/24 12/09/24 Rx mg tablet polyethylene glycol 3350 17 gram 17 g PO QAM #1 ea 12/05/24 12/09/24 Rx oral powder packet (Miralax) carvedilol 25 mg tablet 25 mg PO Q12H #180 tabs 12/19/24 Rx Patient hx anesthesia problems: none Family hx anesthesia problems: none Results Review: All pre-operative results and documents have been reviewed as part of the pre- operative evaluation. [facility] Past Medical History Medical History (Updated 12/19/24 @ 12:02 by Lazaro Juarez MD) Hunner's ulcer Coronary artery disease Chronic obstructive pulmonary disease Chronic kidney disease, stage 3 Abdominal aortic aneurysm mild dilatation of the distal aorta measuring 3.[address] scan in November 2024 Hypercholesterolemia Deep venous thrombosis (2014) Chronic anticoagulation Paroxysmal atrial fibrillation Essential hypertension Gastro-esophageal reflux disease without esophagitis Pulmonary embolism (2014) History of tobacco abuse Anxiety Gout Osteoporosis Arthritis Cancer of left kidney status post left nephrectomy Ventral hernia Hemorrhoids Sleep apnea does not use CPAP Migraine Glaucoma Hypothyroidism Peripheral vascular disease, unspecified Surgical History Surgical History History of right breast biopsy History of open reduction and internal fixation (ORIF) procedure repair of bilateral wrist and left foot fractures History of cystoscopy History of hernia repair History of vascular surgery bifemoral bypass left femoral and popliteal stents History of ventral hernia repair History of right shoulder replacement History of cholecystectomy History of appendectomy History of left nephrectomy History of splenectomy retroperitoneal fibrosis History of tubal ligation History of cataract extraction History of coronary artery stent placement (2014) Hx of foot surgery History of hysterectomy Family History Family History Mother Family history of Alzheimer's disease, Onset Age: 82 Sibling Family history of diabetes mellitus in first degree relative Diabetes mellitus Family history of congenital heart disease Father Family history of emphysema Family history of congenital heart disease Other Hypertension Social History Social History (Updated 11/25/24 @ 23:32 by Loren Kumar PA-C) Social History: Surrogate medical decision maker: Amrit Gallardo, son. Code status: Full code. Smoking packs per day: 0.5 Smoking cigarettes per day: 10.0 Years smoked: 30 Smoking pack-years: 15.00 Smoking status: Former smoker Tobacco type: cigarettes Second hand tobacco smoke exposure: No Smoking end date: 11/13/14 Additional smoking assessment comments: quit 2013 Alcohol intake: never Substance use: never Substance use type: does not use Do You Feel Safe in your Home?: Yes Lack of Transportation: No Lack of Food: Never True Current Housing: I Have Housing Concerned About Future Housing: No Difficulty Paying Gas/Electric Bills: No Difficulty Paying for Meds: No Currently Unemployed: No Education: High School Diploma/GED Difficulty w/ Childcare or Family Care: No Living arrangements: with family Additional living arrangements comments: Son Occupation/Education: retired Gender identity (if verbalized by the patient): Female Spiritual care concerns: No Anes - Eval Final PreProcedure Day of Procedure Patient weight: obese Heart: regular rate and rhythm Lungs: clear to auscultation Airway: Mallampati scale class II Neurological: alert and oriented Last oral intake: >/= 8 hours ASA classification: IV Emergent: no Anesthetic plan: proceed Anesthesia type and monitoring: general GIVS and standard monitoring
--- OUTSIDE RECORDS SUMMARY | 2024-12-20 01:32 | XMS_ITS | Clinical Summary ---
Author Organization [facility] Address [address] [place] [id number] Phone Care Team Providers Care Field Mechanic Name Role Phone Carlito Guerrero Primary Care Provider [phone] Allergies No known active allergies Medications Medication Sig Dispensed Refills Start Date End Date Status lansoprazole (PREVACID) [address] capsule 1 tab/cap bid 0 02/18/2018 Active felodipine (PLENDIL) 10 MG 24 hr tablet 1 tab/cap qday 0 02/18/2018 Ac tive lisinopril (PRINIVIL,ZESTRIL) 10 MG tablet 1 tab/cap qday 0 02/18/2018 Active carvedilol (COREG) 25 MG tablet 1 tab/cap bid 0 02/18/2018 Active sertraline (ZOLOFT) 50 MG tablet 1 tab/cap qday 0 02/18/2018 Active risedronate (ACTONEL) 150 MG tablet 1 tab/cap every month 0 02/18/2018 Active nitroglycerin (NITROSTAT) 0.4 MG SL tablet as directed 0 02/18/2018 Active atorvastatin (LIPITOR) 40 MG tablet 1 tab/cap qday 0 02/18/2018 Active rivaroxaban (XARELTO) 20 MG tablet 1 tab/cap qday 0 05/14/2018 Active clopidogrel (PLAVIX) 75 MG tablet 1 tab/cap qday 0 02/18/2018 Active ticagrelor (BRILINTA) 90 MG tablet 1 tab/cap bid 0 02/18/2018 Active oxybutynin XL (DITROPAN-XL) 15 MG 24 hr tablet 12 03/20/2019 Active amitriptyline (ELAVIL) 25 MG tablet Take 1 tablet by mouth daily Active atenolol (TENORMIN) 50 MG tablet Take 1 tablet by mouth daily Active cholecalciferol (VITAMIN D-3) 10 MCG (400 UNIT) tablet Active Coral Merleqs-Rzgjmgjdc-Top D (RA CORAL CALCIUM) 200-100-100 MG-MG-UNIT capsule Active meloxicam (MOBIC) 7.5 MG tablet Take 7.5 mg by mouth 2 (two) times a day 09/20/2019 Active oxyCODONE-acetaminoph en (PERCOCET) 5-325 MG per tablet Take 1-2 tablets by mouth for pain 09/20/2019 Active meclizine (ANTIVERT) 25 MG tablet TAKE 1 TABLET BY MOUTH THREE TIMES DAILY NEEDED FOR DIZZINESS 12/20/2019 Active ranolazine (RANEXA) 500 MG 12 hr tablet 12/31/2019 Activ e cephalexin (KEFLEX) 250 MG capsule Take 250 mg by mouth every night 06/28/2020 Active albuterol HFA (PROVENTIL HFA) 108 (90 Base) MCG/ACT inhaler INHALE 1 PUFF BY MOUTH EVERY 4 TO 6 HOURS NEEDED FOR SHORTNESS OF BREATH OR WHEEZING 10/28/2020 Active Symbicort 80-4.5 MCG/ACT inhaler INHALE 2 PUFFS BY MOUTH EVERY 12 HOURS RINSE AND SPIT USE WITH SPACER 10/28/2020 Active sodium chloride (SIMBA 128) 5 % ophthalmic solution INSTILL 1 DROP INTO EACH EYE TWICE DAILY 11/18/2020 Active furosemide (LASIX) 20 MG tablet TAKE 1 TABLET BY MOUTH ONCE DAILY NEEDED SWELLING 03/02/2021 Active levothyroxine (SYNTHROID) 100 MCG tablet Take 100 mcg by mouth 1 (one) time each day 02/24/2021 Active traMADol (ULTRAM) 50 MG tablet Take 50 mg by mouth every 6 (six) hours if needed for pain 04/02/2021 Active levothyroxine (SYNTHROID) 88 MCG tablet Take 88 mcg by mouth 1 (one) time each day 06/08/2021 Active warfarin (COUMADIN) 3 MG tablet 08/03/2021 Active Stiolto Respimat 2.5-2.5 MCG/ACT aerosol solution inhaler 03/06/2022 Active Active Problems Problem Noted Date Diagnosed Date Bilateral lower limb edema 12/25/2020 Thoracic back pain 05/06/2020 Bilateral carotid artery stenosis 12/31/2019 Incisional hernia without me ntion of obstruction or gangrene 11/27/2019 Umbilical hernia without mention of obstruction or gangrene 11/27/2019 Blurring of visual image 03/12/2019 Carotid bruit 03/12/2019 Dizziness 11/30/2018 Long-term current use of anticoagulant 8 Pulmonary hypertension 07/23/2018 Chronic kidney disease, stage 3 (moderate) 02/18 Acquired absence of kidney 02/18/2018 Crossing vessel and strictur e of ureter without hydronephrosis 02/18/2018 Hypertensive chronic kidney disease with stage 1 through stage 4 chronic kidney disease, or unspecified chronic kidney disease 02/18/2018 Other specified hypothyroidism 02/18/2018 Primary generalized osteoarthritis 02/18/2018 Chronic interstitial cystitis without hematuria 02/18/2018 Personal history of other malignant neoplasm of kidney 02/18/2018 Acquired absence of kidney 02/18/2018 Coronary arteriosclerosis in [place] artery 10/01 Overview (05/22/2019): Coronary artery disease Hyperlipidemia 02/20/2015 Overview (05/22/2019): Converted unresolved ICD9, potential mismatch. High cholesterol Deep venous thrombosis 02/20/2015 Overview (05/22/2019): DVT (deep venous thrombosis) Peripheral arterial occlusive disease 02/20/2015 Overview (05/22/2019): PAD (peripheral artery disease) Renal insufficiency 02/20/2015 Overview (05/22/2019): Renal insufficiency Retroperitoneal fibrosis 02/20/2015 Overview (05/22/2019): Retroperitoneal fibrosis Tobacco use and exposure - finding 02/20/2015 Overview (05/22/2019): Former tobacco use H/O: anticoagulant therapy 02/20/2015 Overview (04/07/2021): Chronic anticoagulation Ventricular premature beats 02/20/2015 Overview (04/07/2021): PVCs (premature ventricular contractions) Essential hypertension 04/24/2012 Overview (11/27/2019): Hypertension Esophageal reflux 04/24/2012 Allergic rhinitis, cause unspecified 04/24/2012 Atherosclerosis of aorta 12/26/2011 Immunizations Name Administration Dates Next Due Influenza Injectable Mdck Quadrivalent Preservat hilary 08/13/2019 Pneumococcal Conjugate 13-Valent 11/16/2016 Family History Medical History Relation Comments Diabetes mellitus Sibling Hypertensive disorder Sibling Kidney disease Sibling Kidney stone Neg Hx Relation Status Comments Sibling Social History Tobacco Use Types Packs/Day Years Used Date Smoking Tobacco: Former Smokeless Tobacco: Never Alcohol Use Standard Drinks/Week Comments No 0 (1 standard drink = 0.6 oz pur e alcohol) Sex and Gender Information Value Date Recorded Sex Assigned at Not on file Gender Identity Not on file Sexual Orientation Not on file Last Filed Vital Signs Vital Sign Reading Time Taken Comments Blood Pressure 132/74 08/24/2022 10:23 AM CDT Pulse - - Temperature 36.1 C (97 F) 08/24/2022 10:23 AM CDT Respiratory Rate 18 08/24/2022 10:23 AM CDT Oxygen Saturation - - Inhaled Oxygen Concentration - - Weight 79.4 kg (175 lb) 08/24/2022 10:23 AM CDT Height 157.5 cm (5' 2 ) 08/24/2022 10:23 AM CDT Body Mass Index 32.01 08/24/2022 10:23 AM CDT Plan of Treatment Health Maintenance Due Date Last Done Comments Pneumococcal PPSV23/PCV13 65 + Years / High and Highest Risk (2 of 4 - PPSV23 or PCV20) 01/11/2017 11/16/2016 Influenza Vaccine (#1) 2024 08/13/2019 Care Teams Field Mechanic Relationship Specialty Start Date End Date Carlito Guerrero DO [address] [facility] [address] [place] [id number] PCP - General Internal Medicine 05/22/19
--- OUTSIDE RECORDS SUMMARY | 2024-12-20 01:32 | XMS_ITS | Clinical Summary ---
Author Organization [facility] Address [address] [place] [address] Care Team Providers Care Supervisor Cell Efficiency Name Role Phone Carlito Guerrero MD Primary Care Provider [phone] Sarabjit Velasco MD Unavailable [phone] Allergies No known active allergies Medications No known medications Family History Medical History Relation Comments Diabetes Brother Heart Disease Brother Heart Disease Father Dementia Mother Relation Status Comments Brother Father Mother Social History Tobacco Use Types Packs/Day Years Used Date Smoking Tobacco: Former Cigarettes 0.5 35 0 04/07/1979 - 04/07/2014 Smokeless Tobacco: Never Alcohol Use Standard Drinks/Week Comments Not Currently 0 (1 standard drink = 0.6 oz pur e alcohol) Comments No Sex and Gender Information Value Date Recorded Sex Assigned at Not on file Legal Sex Female 7:54 PM CDT Gender Identity Not on file Sexual Orientation Not on file Last Filed Vital Signs Vital Sign Reading Time Taken Comments Blood Pressure - - Pulse - - Temperature - - Respiratory Rate - - Oxygen Saturation - - Inhaled Oxygen Concentration - - Weight 81.6 kg (180 lb) 05/11/2022 2:11 PM CDT Height 157.5 cm (5' 2 ) 05/11/2022 2:11 PM CDT Body Mass Index 32.92 05/11/2022 2:11 PM CDT Plan of Treatment Health Maintenance Due Date Last Done Comments Colorectal Cancer Screening Colonoscopy (10 Years) 1956 Meningococcal Vaccine (1 - R isk 2-dose series) 1958 Meningococcal B Vaccine (1 o f 5 - Increased Risk) 1966 Hepatitis C 1974 DTaP, Tdap and Td Vaccines ( 1 - Tdap) 1975 Mammogram Screening 1996 Zoster Vaccines (1 of 2) 2006 Pneumococcal Vaccine: 65+ Ye ars (2 of 2 - PPSV23 or PCV20) 01/11/2017 11/16/2016 Annual Medicare Wellness Visit 2021 Dexa Scan (General) 2021 COVID-19 Vaccine (1 - 2023-2 5 season) 2024 Influenza Adult (#1) 2024 08/13/2019 RSV Immunization or 60+ Years (1 - 1-dose 75+ series) 2031 RSV Immunizations Under 20 Months Aged Out No longer eligible based on patient's age to complete this topic Insurance [employer] Care Teams Supervisor Cell Efficiency Relationship Specialty Start Date End Date Carlito Guerrero MD [address] [place] [address] PCP - General INTERNAL MEDICINE 05/11/22 Sarabjit Velasco MD [address] [facility] [address] [place] [address] CARDIOVASCULAR DISEASE 05/11/22
--- OUTSIDE RECORDS SUMMARY | 2024-12-20 01:32 | XMS_ITS | Clinical Summary ---
Author Organization [facility] Address [address] [place] [address] Care Team Providers Care Estimator And Drafter Supervisor Name Role Phone Ricardo Freeman DO Primary Care Provider [phone] Allergies No known active allergies Medications oxybutynin XL (DITROPAN XL) 15 mg 24 hr tablet take 1 tablet by oral route every day 0 0 01/20/20 16 Active cholecalciferol (VITAMIN D-3) 2000 unit tabletIndications: For supplement Take 1 tablet (2,000 Units total) by mouth every morning Active levothyroxine (SYNTHROID) 88 mcg tabletIndications: hypothyroidism Take 1 tablet (88 mcg total) by mouth flight radio operator before breakfast Active albuterol HFA (PROVENTIL HFA,VENTOLIN HFA,PROAIR HFA) 90 mcg/actuation inhaler Inhale 2 puffs every 6 (six) hours as needed for wheezing Active Stiolto Respimat 2.5-2.5 mcg/actuation inhalerIndications :Bronchospasm Prevention with COPD Inhale 1 puff every morning 04/08/20 22 Active folic acid (FOLVITE) 1 mg tabletIndications: For supplement Take 1 tablet (1,000 mcg total) by mouth every morning 12/06/19 23 Active zoledronic acid 4 mg recon solnIndications:estella bladimir Infuse into a venous catheter every 6 (six) months Last dose 10/27/23 Active acetaminophen (TYLENOL) 325 mg tablet Take 2 tablets (650 mg total) by mouth every 6 (six) hours as needed for pain Use first for management of pain 12/01/19 24 Active ondansetron ODT (ZOFRAN-ODT) 4 mg disintegrating tabletIndications: Prevention of Post-Operative Nausea and Vomiting Take 1 tablet (4 mg total) by mouth every 8 (eight) hours as needed for nausea or vomiting 20 tablet 12/01/19 24 Active carvediloL (COREG) 25 mg tablet Take 1 tablet (25 mg total) by mouth 2 (two) times a day with meals Active felodipine (PLENDIL) 10 mg 24 hr tablet Take 1 tablet (10 mg total) by mouth daily Active methenamine (HIPREX) 1 gram tablet Take 1 tablet (1,000 mg total) by mouth 2 (two) times a day 03/01/20 24 Active calcium carb,cit-mag cit,ox-D3 300 mg-150 mg- 400 unit tablet Take by mouth Acti ve clopidogreL (PLAVIX) 75 mg tabletIndications: DVT L leg and lung, heart stent Take 1 tablet (75 mg total) by mouth every morning 90 tablet 3 05/24/20 24 Active Additional Information Patient not taking.Reported on 12/13/2024 warfarin (COUMADIN) 3 mg tablet Take 1 tablet (3 mg total) by mouth Active rosuvastatin (CRESTOR) 40 mg tablet Take 1 tablet by mouth once daily 90 tablet 2 07/22/20 24 Active ranolazine ER (RANEXA) 500 mg 12 hr tabletIndications: Coronary 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 angina pectoris (HCC) Take 1 tablet by mouth twice daily 180 tablet 09/11/20 24 Active lansoprazole (PREVACID) 15 mg capsule Take 1 capsule (15 mg total) by mouth daily Active isosorbide mononitrate ER (IMDUR) 30 mg 24 hr tabletIndications: Coronary 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 angina pectoris (HCC) Take 1 tablet (30 mg total) by mouth daily 30 tablet 11 11/01/20 24 025 Active nitroglycerin (NITROSTAT) 0.[address] 1 tablet (0.4 mg total) under the tongue every 5 (five) minutes as needed for chest pain (May repeat every 5 min up to 3 doses in 15 min.) 25 tablet 11 11/01/20 24 Active Active Problems Problem Noted Date Diagnosed Date Recurrent incisional hernia with incarceration 1 12/19/2023 Incisional hernia of anterio r abdominal wall without obstruction or gangrene 11/28/2023 Recurrent incisional hernia 07/12/2023 Abdominal aortic aneurysm (AAA) without rupture 12/27/2022 Assessment & Plan (06/20/2024 12:11 PM CDT): Abdominal aortic aneurysms currently measuring 3.7 x 3.6 cm remains asymptomatic. Follow up in 1 year with aortic duplex. Continue aspirin and statin therapy Assessment & Plan (12/21/2023 1:27 PM TECHNOLOGY STRATEGIST): Continue risk factor modifications and continue annual monitoring as scheduled Assessment & Plan (06/21/2023 11:15 AM CDT): Continue risk factor modification as above. Ongoing surveillance with aortoiliac duplex as scheduled. Assessment & Plan (05/18/2023 11:03 AM CDT): Stable, asymptomatic, follow-up in 1 year with repeat aortic duplex Assessment & Plan (04/27/2023 3:52 PM CDT): Currently measuring 3.3 cm on recent scan. She is scheduled to follow-up in 1 year for routine surveillance. Assessment & Plan (12/27/2022 8:50 AM TECHNOLOGY STRATEGIST): Impression: Patient has a 3.3 cm infrarenal abdominal aortic aneurysm seen on a CT abdomen pelvis in September 2022. She remains asymptomatic. Plan: We will continue to monitor with an abdominal duplex in September. Chronic venous insufficiency 12/27/2022 Atherosclerosis of [place] ar teries of extremities with intermittent claudication, bilateral legs 12/27/2022 Assessment & Plan (06/20/2024 12:12 PM CDT): Patent fem-fem bypass graft per current duplex. Patient denies any claudication symptoms. Follow up in 6 months for routine surveillance with a fem-fem duplex continue aspirin Plavix and statin therapy. Assessment & Plan (12/21/2023 1:28 PM TECHNOLOGY STRATEGIST): Bilateral lower extremity arterial occlusive disease status post fem-fem bypass graft 2014. Continues to do well. Denying any claudication or rest pain or ulcerations to the feet. Plan: Follow-up in 6 months for routine surveillance with an arterial duplex for fem-fem bypass graft Assessment & Plan (05/18/2023 11:03 AM CDT): Patient has bilateral foot pain at night not likely arterial in nature due to most recent CTA of the abdomen pelvis, in addition to arterial duplex. Will hold on any surgical procedural intervention at this point. Continue aspirin, Plavix regimen. Follow-up in the office in 6 months with repeat arterial duplex Assessment & Plan (12/27/2022 9:00 AM TECHNOLOGY STRATEGIST): Impression: Patient has a history of iliac occlusion and underwent a fem-fem bypass graft by Dr. Sheldon in 2014. Patient denies any worsening symptoms of claudication, ischemic rest pain or ulcerations to her lower extremity. Plan: Patient to follow-up with an arterial duplex during her postop venous duplex scans. History of DVT (deep vein thrombosis) 11/29/2022 Assessment & Plan (11/29/2022 10:06 AM TECHNOLOGY STRATEGIST): Impression: Patient has a history of a left DVT and PE in 2014. She has been compliant with Coumadin and Plavix. Plan: Continue Plavix as per primary care provider. Phlebitis 11/17/2022 Varicose veins of left lower extremity with pain 11/17/2022 Assessment & Plan (06/21/2023 11:16 AM CDT): Status post GSV ablation and stab phlebectomies. Continue p.r.n. compression therapy. Assessment & Plan (05/18/2023 11:04 AM CDT): Painful varicose veins, scheduled for EVLT in 05/19/2023. Assessment & Plan (12/27/2022 8:59 AM TECHNOLOGY STRATEGIST): Impression: Patient continues to complain of pain to her left lower extremity with prolonged standing despite compression therapy. Patient has bulky varicosities noted to the left thigh and left medial calf. Plan: Recommend left great saphenous vein EVLT and stab phlebectomies. Risks, benefits, and alternatives to saphenous ablation and stab phlebectomies were discussed with the patient. Risks including bleeding, infection, deep vein thrombosis, pulmonary embolism, burn injury to the skin and/or nerve. They wished to proceed. Continue utilizing compression therapy until scheduled procedure. Assessment & Plan (11/29/2022 10:00 AM TECHNOLOGY STRATEGIST): Impression: Patient complains of pain to left lower extremity with prolonged standing. Pain with palpation to varicosity to the lateral left thing. Patient also has a history of a left lower extremity DVT and PE currently on Plavix and Coumadin. Patient underwent a venous duplex on 11/17/2022 at an outside facility which was negative for DVTs to the lower extremities. Patient states she has a history of a stent placed in her groin by Dr. Sheldon. Plan: Recommend medical grade compression therapy 20 30 mmHg. We will obtain bilateral lower extremity venous reflux and duplex to verify patent stent and evaluation of venous reflux. Patient to follow-up in 2 weeks for re-evaluation. Bilateral lower extremity edema 12/25/2020 Thoracic back pain 05/06/2020 Bilateral carotid artery stenosis 12/31/2019 Assessment & Plan (04/27/2023 3:53 PM CDT): Patient has mild carotid stenosis which was seen on recent duplex. She no longer requires surveillance and can follow-up as needed. Assessment & Plan (12/27/2022 8:48 AM TECHNOLOGY STRATEGIST): Impression: Patient has mild bilateral internal carotid arteries. She remains asymptomatic. Plan: Patient has mild carotid stenosis seen on duplex. No longer require surveillance. Follow up as needed. Encourage patient to notify the office or present to the ED if she experiences stroke-like symptoms. Patient voices understanding. Assessment & Plan (11/29/2022 10:30 AM TECHNOLOGY STRATEGIST): Impression: Patient has a history of bilateral carotid artery stenosis being followed by her fourdrinier tender. Patient requesting the office to monitor. Patient denies any new focal or lateralizing neurological defects, amaurosis fugax, or speech disturbances at this time. Plan: We will obtain carotid duplex for further evaluation have patient follow- up in 2 weeks. Chest pain 12/10/2019 RODAS (dyspnea on exertion) 12/10/2019 Preop cardiovascular exam 06/04/2019 Blurry vision, bilateral 03/12/2019 Bilateral carotid bruits 03/12/2019 Dizziness 11/30/2018 Pulmonary embolus 07/23/2018 Chronic anticoagulation 07/23/2018 Pulmonary hypertension 07/23/2018 Acquired absence of kidney 02/18/2018 Chronic interstitial cystitis without hematuria 02/18/2018 Crossing vessel and strictur e of ureter without hydronephrosis 02/18/2018 Idiopathic osteoarthritis 02/18/2018 Other specified hypothyroidism 02/18/2018 Personal history of other malignant neoplasm of kidney 02/18/2018 Stage 3 chronic kidney disease 02/18/2018 Chest pressure 12/06/2017 Constipation 01/03/2017 Coronary artery disease of [place] artery of [place] heart with stable angina pectoris 10/01/2015 Overview (02/17/2017): Coronary artery disease Preoperative state 02/20/2015 Overview (02/17/2017): Pre-operative cardiovascular examination Hypertension 02/20/2015 Overview (02/17/2017): Hypertension Assessment & Plan (06/21/2023 11:15 AM CDT): Stable continue lisinopril 10 mg. Assessment & Plan (12/27/2022 9:05 AM TECHNOLOGY STRATEGIST): Impression: Chronic hypertension. Plan: Continue Coreg and lisinopril. Assessment & Plan (11/29/2022 10:32 AM TECHNOLOGY STRATEGIST): Impression: Chronic hypertension, controlled with Coreg and lisinopril. Plan: Continue blood pressure management with Coreg and lisinopril as per primary care provider/cardiology. Renal insufficiency 02/20/2015 Overview (02/17/2017): Renal insufficiency Ventricular premature beats 02/20/2015 Overview (02/17/2017): PVCs (premature ventricular contractions) History of tobacco abuse 02/20/2015 Overview (02/17/2017): Former tobacco use Hyperlipidemia LDL goal <70 02/20/2015 Overview (02/17/2017): High cholesterol Peripheral arterial occlusive disease ([facility]/HCC) 02/20/2015 Overview (02/17/2017): PAD (peripheral artery disease) Assessment & Plan (06/21/2023 11:16 AM CDT): Continue ongoing risk factor modification with Plavix statin therapy in good blood pressure control. Ongoing surveillance with repeat duplex in November. Assessment & Plan (04/27/2023 3:51 PM CDT): History of lower extremity arterial occlusive disease status post fem-fem bypass for an iliac [place] [address] Méndez. Recently developed rest pain and toe discoloration to her left foot over the past couple of weeks. Current arterial duplex 04/24/2023 shows biphasic waveforms to the right distal extremity with an PHIL of 0.89/0.79 PT/DP., biphasic waveforms to the left distal extremity with an PHIL of 0.84/0.79 PT/DP. The fem-fem bypass graft is patent with no perigraft fluid noted. Patient seen with Dr. Pereira. Plan: Obtain a CTA with runoff in 1 week and follow-up for re-evaluation and discussion for possible angiogram. Carotid bruit 02/20/2015 Overview (02/17/2017): Bilateral carotid bruits Deep vein thrombosis (DVT) (CMS/HCC) 02/20/2015 Overview (02/17/2017): DVT (deep venous thrombosis) History of anticoagulant therapy 02/20/2015 Overview (02/17/2017): Chronic anticoagulation Retroperitoneal fibrosis 02/20/2015 Overview (02/17/2017): Retroperitoneal fibrosis Leukocytosis 08/19/2014 Exomphalos 07/04/2012 Allergic rhinitis 04/24/2012 Esophageal reflux 04/24/2012 Resolved Problems Problem Noted Date Diagnosed Date Resolved Date Atherosclerosis of aorta (CMS/HCC) 12/26/2011 12/27/2022 Encounters Date Type Department Care Team Description 12/16/2024 Orders Only [facility] Vascular at [address] [place] [id number] Osvaldo Pereira MD Peripheral arterial occlusive disease (CMS/HCC) (HCC) (Primary Dx); Other specified symptoms and signs involving the circulatory and respiratory systems 12/13/2024 9:00 AM TECHNOLOGY STRATEGIST Office Visit [facility] Cardiology [address] [place] [address] Ragini Velasco MD Coronary 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 angina pectoris (CMS/HCC) (Primary Dx); Primary hypertension; Chronic anticoagulation; Peripheral arterial occlusive disease (CMS/HCC) (HCC); Preop cardiovascular exam 12/11/2024 7:53 AM TECHNOLOGY STRATEGIST - 12/11/2024 11:59 PM TECHNOLOGY STRATEGIST Hospital Encounter [facility] [address] [place] [address] Discharge Disposition: Discharge to home or self care 12/11/2024 7:53 AM TECHNOLOGY STRATEGIST - 12/11/2024 11:59 PM TECHNOLOGY STRATEGIST Hospital Encounter [facility] ([facility]) [address] [place] [id number] Coronary 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 angina pectoris (CMS/HCC) Discharge Disposition: Discharge to home or self care 12/11/2024 7:52 AM TECHNOLOGY STRATEGIST - 12/11/2024 11:59 PM TECHNOLOGY STRATEGIST Hospital Encounter [facility] [address] [place] [id number] Discharge Disposition: Discharge to home or self care 12/11/2024 7:51 AM TECHNOLOGY STRATEGIST - 12/11/2024 11:59 PM TECHNOLOGY STRATEGIST Hospital Encounter [facility] [address] [place] [address] Coronary 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 angina pectoris (CMS/HCC) Discharge Disposition: Discharge to home or self care 12/10/2024 Telephone [facility] Cardiology [address] [place] [address] [address] [place] [phone] Ragini Velasco MD 12/05/2024 Telephone [facility] Home Care Services [address] [place] [address] Unknown, [facility] 11/15/2024 Telephone [facility] Cardiology [address] [place] [address] [address] [place] [phone] Ragini Velasco MD 11/14/2024 8:15 AM TECHNOLOGY STRATEGIST Ancillary Procedure [address] [place] [phone] Coronary 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 angina pectoris (CMS/HCC); Chest pressure 11/01/2024 8:15 AM TECHNOLOGY STRATEGIST Office Visit [facility]iology [address] [place] [address] [address] [place] [phone] Ragini Velasco MD Coronary 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 angina pectoris (CMS/HCC) (Primary Dx); Peripheral arterial occlusive disease (CMS/HCC) (HCC); Pulmonary hypertension (HCC); Bilateral carotid artery stenosis; Hyperlipidemia LDL goal <70; Primary hypertension; Chest pressure 10/18/2024 Telephone [facility] [address] [place] [address] [facility] [address]th Floor, [place] [address] Kiara Reeder RN 10/02/2024 11:00 AM TECHNOLOGY STRATEGIST Telemedicine [facility]vasive [facility] [address] [facility] [address] [place] [address] Jorge Manning MD Recurrent incisional hernia (Primary Dx) from Last 3 Months Immunizations Name Administration Dates Next Due Influenza, Quadrivalent, Celia l Culture-based MDCK, Antibiotic Free, Intramuscular 08/13/2019 Influenza, Quadrivalent, Rec ombinant, Egg Free, Preservative Free, Intramuscular 08/26/2020 Influenza, Quadrivalent, Spl it, Preservative Free, Intramuscular 10/23/2019,08/02/2018 Pneumococcal Conjugate PCV 13 11/16/2016 ZOSTER Recombinant 10/30/2018,08/08/2018 Surgical History Surgery Date Site/Laterality Comments FEMORAL ARTERY - FEMORAL ARTERY BYPASS GRAFT 11/13/2014 - 11/12/2015 Right CARDIAC STENT PLACEMENT 11/13/2014 - 11/12/2015 CYSTOSCOPY multiple OTHER SURGICAL HISTORY Left 26 stab phlebectomies LLE ENDOVENOUS ABLATION SAPHENOUS VEIN W/ LASER 11/13/2014 - 11/12/2015 Left HERNIA REPAIR unsure when CARDIAC CATHETERIZATION 07/14/2016 - 08/12/2016 Left HYSTERECTOMY 11/13/1984 - 11/12/1985 completion PARTIAL HYSTERECTOMY 11/13/1979 - 11/12/1980 APPENDECTOMY 11/13/1979 - 11/12/1980 GALLBLADDER SURGERY 11/13/1996 - 11/12/1997 KIDNEY SURGERY 11/13/2004 - 11/12/2005 Left NEPHRECTOMY 11/13/2005 - 11/12/2006 Left BREAST BIOPSY 11/13/1982 - 11/12/1983 Right FOOT SURGERY Left x 4 unsure of date TOTAL SHOULDER REPLACEMENT 11/13/2018 - 11/12/2019 Right ORIF WRIST FRACTURE 11/13/2018 - 11/12/2019 Left ORIF WRIST FRACTURE 11/13/2017 - 11/12/2018 Right CATARACT EXTRACTION W/ INTRAOCULAR LENS IMPLANT 11/13/2021 - 11/12/2022 Right CATARACT EXTRACTION W/ INTRAOCULAR LENS IMPLANT 11/13/2022 - 11/12/2023 Left Medical History Medical History Date Comments Hx Other Medical retroperitoneal fibrosis, status post left nephrec; Comments: [facility] 02/20/2015 - Hx Other Medical glaucoma, JANNY, obesity, hypercholesterolemia, dent; Comments: [facility] 02/20/2015 - Hypertension HLD (hyperlipidemia) Family History Medical History Relation Name Comments [facility] Requiring Dialysis Brother Heart attack Brother Myocardial infa rction; Heart attack Father Myocardial infa rction; Alzheimer's disease Mother Alzheime r's disease; Relation Name Status Comments Brother Father Mother Social History Tobacco Use Types Packs/Day Years Used Date Smoking Tobacco: Former Cigarettes 0.1 44.7 1 972 - 07/31/2016 Smokeless Tobacco: Never Tobacco Cessation:Counseling Given: Not Answered Alcohol Use Standard Drinks/Week Comments No 0 (1 standard drink = 0.6 oz pur e alcohol) AUDIT-C Answer Date Recorded Q1: How often do you have a drink containing alcohol? Never 11/09/2023 Q2: How many drinks containi ng alcohol do you have on a typical day when you are drinking? Patient does not drink Q3: How often do you have si x or more drinks on one occasion? Never 11/09/2023 Personal Safety Answer Date Recorded Have you ever been in or are you currently in a harmful physical or emotional relationship or is someone making you feel afraid or unsafe? Denies 11/28/2023 Comments No Sex and Gender Information Value Date Recorded Sex Assigned at Not on file Legal Sex Female 2:59 AM TECHNOLOGY STRATEGIST Gender Identity Not on file Sexual Orientation Not on file Obstetrics History Last Filed Vital Signs Vital Sign Reading Time Taken Comments Blood Pressure 114/56 12/13/2024 9:07 AM TECHNOLOGY STRATEGIST Pulse 76 12/13/2024 9:07 AM TECHNOLOGY STRATEGIST Temperature 37.1 C (98.7 F) 06/28/2024 9:02 AM CDT Respiratory Rate 16 12/01/2023 7:30 AM TECHNOLOGY STRATEGIST Oxygen Saturation 97% 12/13/2024 9:07 AM TECHNOLOGY STRATEGIST Inhaled Oxygen Concentration - - Weight 78 kg (172 lb) 12/13/2024 9:07 AM TECHNOLOGY STRATEGIST Height 157.5 cm (5' 2 ) 12/13/2024 9:07 AM TECHNOLOGY STRATEGIST Body Mass Index 31.46 12/13/2024 9:07 AM TECHNOLOGY STRATEGIST Plan of Treatment Upcoming Encounters Date Type Department Care Team (Late st Contact Info) Description 03/18/2025 Hospital Encounter [facility] Operating Room [address] [place] [address] Jorge Manning MD [address] [place] [address] Scheduled Procedures Name Priority Associated Diagnoses Date/Ti me XI REPAIR INCISIONAL HERNIA - LAPAROSCOPIC ROBOTIC ASSISTED Recurrent incisional hernia with incarceration XI ROBOTIC ABDOMINAL WALL RECONSTRUCTION Recurrent incisional hernia with incarceration Health Maintenance Due Date Last Done Comments Breast Cancer Screening-Mammogram 1955 Depression Screening 1955 Hepatitis C Screening 1955 Osteoporosis Screening-Bone Density Scan 1956 DTaP/Tdap/Td Vaccine (1 - Tdap) 1967 Hepatitis B Screening 1974 Pneumococcal vaccine 65+ (2 of 2 - PPSV23 or PCV20) 01/11/2017 11/16/2016 Well Visit 65+ 2021 Influenza Vaccine (#1) 2024 0, 10/23/2019, 08/13/2019, Additional history exists Fall Risk Assessment 12/01/2024 12/01/2023, 08/21/20 Colon Cancer Screening-Colonoscopy 01/30/2027 01/30/2017 Colon Cancer Screening-CT Colonography Discontinued 01/30/2017 Colon Cancer Screening-DNA Stool Discontinued 01/31/20 Colon Cancer Screening-FIT Discontinued 01/30/2017 Colon Cancer Screening-Sigmoidoscopy Discontinued 01/30/2017 Zoster Vaccine Completed 10/30/2018, 08/08/2018 Procedures Procedure Name Priority Date/Time Associated Diagnosis Comments POCT LIPID PANEL Routine 12/13/2024 9:08 AM TECHNOLOGY STRATEGIST Coronary 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 angina pectoris (CMS/HCC) PET/CT MYOCARDIAL METABOLIC EVALUATION FOR VIABILITY Schedule Routine, Read Routine (OP Routine) 12/11/2024 12:47 PM TECHNOLOGY STRATEGIST Coronary 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 angina pectoris (CMS/HCC) NM MPI SPECT SINGLE STUDY (REST) VIABILITY Schedule Routine, Read Routine (OP Routine) 12/11/2024 9:27 AM TECHNOLOGY STRATEGIST Coronary 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 angina pectoris (CMS/HCC) NM MPI SPECT (REST AND/OR STRESS) MULTIPLE STUDIES Schedule Routine, Read Routine (OP Routine) 11/14/2024 10:14 AM TECHNOLOGY STRATEGIST Coronary 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 angina pectoris (CMS/HCC) Chest pressure CT VIRTUAL COLONOSCOPY DIAGNOSTIC W CONTRAST Routine 01/30/2017 2:38 PM CDT from Last 3 Months or Most Recently Relevant to Health Maintenance Results * POCT lipid panel (12/13/2024 9:08 AM TECHNOLOGY STRATEGIST) Cholesterol, POC 114 mg/dL HDL, POC 46 mg/dL Triglycerides, POC 136 mg/dL LDL Cholesterol POC 41 mg/dL Chol/HDL Ratio, POC 0.9 Non-HDL Cholesterol, POC 69 mg/dL Cholesterol Total, POC 114 mg/dL Capillary blood 12/13/2024 9 :08 AM TECHNOLOGY STRATEGIST us Ragini Velasco MD POINT OF CARE TEST ORDERA BLES Final Result * PET/CT Myocardial Metabolic Evaluation for Viability (12/11/2024 12:47 PM TECHNOLOGY STRATEGIST) Anatomical Region Laterality Modality N/A Positron Emissio n Tomography (PET) 12/11/2024 5:36 PM TECHNOLOGY STRATEGIST Impressions 12/11/2024 5:39 PM TECHNOLOGY STRATEGIST 1. Viable myocardium in the small and mildly hypoperfused area of the anterior and anteroseptal wall. 2. The reminder of the myocardium is viable with concordant preserved perfusion and metabolism. 3. If clinical concern for cardiac ischemia persists, consider stress MPI . Drs. Bojorquez and Fermin also participated in the interpretation of this examination. Dictated by: Anita Quinones M.D. The radiology attending physician has personally reviewed this study, and had reviewed and/or edited this written report and agrees with it. Electronically signed by: Jannet English M.D. Narrative 12/11/2024 5:39 PM TECHNOLOGY STRATEGIST EXAMINATION: MYOCARDIAL PET/CT (METABOLISM) DATE OF STUDY: 12/11/2024 SCANNER: [facility] RADIOPHARMACEUTICAL: 10.61 mCi F-18 Fluorodeoxyglucose (FDG) i.v., Injection site: Left antecubital vein 50% Dextrose i.v. and 6 units regular insulin i.v. HISTORY: 69-year-old woman with hypertension, hyperlipidemia, coronary artery disease, post drug-eluting stent placement to a high-grade ostial RCA lesion in the past. Peripheral arterial occlusive disease, and ventricular premature beats who presented with worsening chest pain. TECHNIQUE: The patient was instructed to fast for minimum of 6 hours prior to study, and to drink only water during this time. The patient did comply with these instructions. On the day of the study, the patient's initial fasting blood glucose level, measured by glucometer before injection of FDG, was 97 mg/dL. The patient then received 25 g 50% dextrose i.v; the blood glucose was again measured at 10:25 AM and was 184 mg/dL. After intravenous administration of FDG at 10:55 AM, noncontrast CT images of the chest were obtained for attenuation correction and for fusion with emission PET images. Emission PET images were then obtained. The time from injection of FDG to start of imaging was 63 minutes. The study was interpreted on the [employer] workstation. At the conclusion of the study, the patient's final blood glucose measurement was 90 mg/dL at 12:10 PM. The patient left the PET facility in good condition, with no apparent complications. COMPARISON: No similar prior study for comparison FINDINGS: The prior comparison perfusion images demonstrated a small size and mildly severe decreased perfusion of the anterior and anteroseptal wall. The FDG images demonstrate preserved FDG uptake in the above-mentioned hypoperfused area involving the anterior and anteroseptal wall. Additional CT findings: Trace left pleural effusion. Mild calcified atheromatous plaque along nondilated aortic arch, descending/abdominal aorta and its branches. Moderate diffuse coronary artery calcification. Mild calcified atheromatous plaque along nondilated aortic arch, descending/abdominal aorta and its branches. Splenectomy. Left nephrectomy. Post surgical changes of left nephrectomy with a 3.4 x 2.5 cm is likely splenosis. Procedure Note Jannet English MD - 12/11/2024 EXAMINATION: MYOCARDIAL PET/CT (METABOLISM) DATE OF STUDY: 12/11/2024 SCANNER: [facility] RADIOPHARMACEUTICAL: 10.61 mCi F-18 Fluorodeoxyglucose (FDG) i.v., Injection site: Left antecubital vein 50% Dextrose i.v. and 6 units regular insulin i.v. HISTORY: 69-year-old woman with hypertension, hyperlipidemia, coronary artery disease, post drug-eluting stent placement to a high-grade ostial RCA lesion in the past. Peripheral arterial occlusive disease, and ventricular premature beats who presented with worsening chest pain. TECHNIQUE: The patient was instructed to fast for minimum of 6 hours prior to study, and to drink only water during this time. The patient did comply with these instructions. On the day of the study, the patient's initial fasting blood glucose level, measured by glucometer before injection of FDG, was 97 mg/dL. The patient then received 25 g 50% dextrose i.v; the blood glucose was again measured at 10:25 AM and was 184 mg/dL. After intravenous administration of FDG at 10:55 AM, noncontrast CT images of the chest were obtained for attenuation correction and for fusion with emission PET images. Emission PET images were then obtained. The time from injection of FDG to start of imaging was 63 minutes. The study was interpreted on the [employer] workstation. At the conclusion of the study, the patient's final blood glucose measurement was 90 mg/dL at 12:10 PM. The patient left the PET facility in good condition, with no apparent complications. COMPARISON: No similar prior study for comparison FINDINGS: The prior comparison perfusion images demonstrated a small size and mildly severe decreased perfusion of the anterior and anteroseptal wall. The FDG images demonstrate preserved FDG uptake in the above-mentioned hypoperfused area involving the anterior and anteroseptal wall. Additional CT findings: Trace left pleural effusion. Mild calcified atheromatous plaque along nondilated aortic arch, descending/abdominal aorta and its branches. Moderate diffuse coronary artery calcification. Mild calcified atheromatous plaque along nondilated aortic arch, descending/abdominal aorta and its branches. Splenectomy. Left nephrectomy. Post surgical changes of left nephrectomy with a 3.4 x 2.5 cm is likely splenosis. IMPRESSION: 1. Viable myocardium in the small and mildly hypoperfused area of the anterior and anteroseptal wall. 2. The reminder of the myocardium is viable with concordant preserved perfusion and metabolism. 3. If clinical concern for cardiac ischemia persists, consider stress MPI . Drs. Bojorquez and Fermin also participated in the interpretation of this examination. Dictated by: Anita Quinones M.D. The radiology attending physician has personally reviewed this study, and had reviewed and/or edited this written report and agrees with it. Electronically signed by: Jannet English M.D. us Ragini Velasco MD IMG PET PROCEDURES Final Result * NM MPI SPECT Single Study (Rest) for Viability (12/11/2024 9:27 AM TECHNOLOGY STRATEGIST) Anatomical Region Laterality Modality Body N/A Nuclear Medicine 12/11/2024 5:30 PM TECHNOLOGY STRATEGIST Impressions 12/11/2024 5:36 PM TECHNOLOGY STRATEGIST 1. Small size and mildly severe decreased rest perfusion defect of anterior and anteroseptal wall. 2. Normal left ventricular size and systolic function. Drs. Bojorquez and Fermin also participated in the interpretation of this examination. Please refer to the same day FDG PET for viability accession #[id number] for more information. Dictated by: Anita Quinones M.D. The radiology attending physician has personally reviewed this study, and had reviewed and/or edited this written report and agrees with it. Electronically signed by: Jannet English M.D. Narrative 12/11/2024 5:36 PM TECHNOLOGY STRATEGIST EXAMINATION: MYOCARDIAL IMAGING (REST/SPECT-CT) DATE OF STUDY: 12/11/2024 RADIOPHARMACEUTICAL: 23.23 mCi Tc-99m sestamibi i.v. HISTORY: 69-year-old woman with hypertension, hyperlipidemia, coronary artery disease, post drug-eluting stent placement to a high-grade ostial RCA lesion in the past. Peripheral arterial occlusive disease, and ventricular premature beats who presented with worsening chest pain. The patient's body mass index (BMI) was 32.01. FINDINGS: Standard myocardial perfusion images obtained after injection of tracer under resting conditions.. Images were obtained in a supine position. Low-dose CT images spanning the heart were obtained for attenuation correction. COMPARISON: Abdominopelvic CT scan on 07/10/2024 The projection images were reviewed for image quality, and reveal no significant artifacts. The images demonstrate small size and moderately severe decreased perfusion of mid to apical segment of the anterior and anteroseptal wall favoured to be which significantly resolved . Gated images demonstrate normal left ventricular volume, normal left ventricular wall motion and normal ejection fraction of 73 % (normal >45%). Incidental findings on the low-dose CT images: Moderate diffuse coronary artery calcification. Mild calcified atheromatous plaque along nondilated aortic arch, descending/abdominal aorta and its branches. Splenectomy. Left nephrectomy. Post surgical changes of left nephrectomy with a 3.4 x 2.5 cm is likely splenosis. Procedure Note Jannet English MD - 12/11/2024 EXAMINATION: MYOCARDIAL IMAGING (REST/SPECT-CT) DATE OF STUDY: 12/11/2024 RADIOPHARMACEUTICAL: 23.23 mCi Tc-99m sestamibi i.v. HISTORY: 69-year-old woman with hypertension, hyperlipidemia, coronary artery disease, post drug-eluting stent placement to a high-grade ostial RCA lesion in the past. Peripheral arterial occlusive disease, and ventricular premature beats who presented with worsening chest pain. The patient's body mass index (BMI) was 32.01. FINDINGS: Standard myocardial perfusion images obtained after injection of tracer under resting conditions.. Images were obtained in a supine position. Low-dose CT images spanning the heart were obtained for attenuation correction. COMPARISON: Abdominopelvic CT scan on 07/10/2024 The projection images were reviewed for image quality, and reveal no significant artifacts. The images demonstrate small size and moderately severe decreased perfusion of mid to apical segment of the anterior and anteroseptal wall favoured to be which significantly resolved . Gated images demonstrate normal left ventricular volume, normal left ventricular wall motion and normal ejection fraction of 73 % (normal >45%). Incidental findings on the low-dose CT images: Moderate diffuse coronary artery calcification. Mild calcified atheromatous plaque along nondilated aortic arch, descending/abdominal aorta and its branches. Splenectomy. Left nephrectomy. Post surgical changes of left nephrectomy with a 3.4 x 2.5 cm is likely splenosis. IMPRESSION: 1. Small size and mildly severe decreased rest perfusion defect of anterior and anteroseptal wall. 2. Normal left ventricular size and systolic function. Drs. Bojorquez and Fermin also participated in the interpretation of this examination. Please refer to the same day FDG PET for viability accession #[id number] for more information. Dictated by: Anita Quinones M.D. The radiology attending physician has personally reviewed this study, and had reviewed and/or edited this written report and agrees with it. Electronically signed by: Jannet English M.D. us Ragini Velasco MD IMG NM PROCEDURES Final R esult * NM MPI SPECT (Rest and/or Stress) Multiple Studies (11/14/2024 10:14 AM TECHNOLOGY STRATEGIST) Anatomical Region Laterality Modality Body N/A Nuclear Medicine 11/14/2024 8:26 AM TECHNOLOGY STRATEGIST Narrative 11/14/2024 12:45 PM TECHNOLOGY STRATEGIST [facility] Cardiology [address] [facility] [address], [place] [address] [address] [address], [place] [address] P:[phone] P:[phone] MPI Imaging Report Patient Name: GENARO GAYLE MI : 1955 Study Date: 11/14/2024 8:26:53 AM Gender: F Tech: [facility] Location: [facility] Provider: RAGINI VELASCO Height(Cm): 157.5 BSA: Weight(Kg): 79.4 BMI: 32.01 Order Provider: RAGINI VELASCO - PHYSICIAN: Referring Physician: Dr. Freeman. HCG Physician: Serafin Velasco M.D. Interpreting Physician: Serafin Velasco M.D. Stress Supervision: Umang Galicia M.D., F.A.C.C. PROCEDURES: Pharmacologic SPECT Report: Myocardial perfusion imaging with Tc99M Sestamibi SPECT at rest and stress post regadenoson (Lexiscan) infusion. INDICATIONS: Hypertension, Family Hx CAD, High Cholesterol, Former Smoker, Palpitations. PVD, I25.118 Atherosclerotic heart disease of [place] coronary artery with other forms of angina pectoris, and R07.89 Other chest pain. FINDINGS: Procedural Findings: One day rest/stress was used. Tc99m Sestamibi injected IV at rest was 10.8 millicuries 32.1 millicuries of Tc99M Sestamibi injected IV during Lexiscan stress Lexiscan 0.4mg administered IV over 10 seconds. Pharmacologic stress related symptoms and/or side effects during infusion include chest pressure 4/10 and vomiting. Symptoms were resolved with 100 mg of aminophylline IVP Chest pressure resolved. Baseline heart rate was 82 BPM Maximum Heart Rate Achieved was: 107 BPM Baseline blood pressure was 140/80 mmHg Post Stress Blood Pressure was 140/78 mmHg Termination: Protocol complete. Resting ECG: Sinus rhythm. Nonspecific ST-T abnormalities. Post EC mm or more horizontal inf/lat ST depression. Findings are suggestive of ischemia. Specificity of the observed ST changes is reduced in light of the abnormal resting ECG. Arrhythmia: No arrhythmias seen. Perfusion Findings: Abnormal perfusion imaging - see below. Technical quality of study is excellent. Prone imaging was not performed. Left ventricle cavity size at rest is normal. Left ventricle cavity size with stress is unchanged. A TID of 0.79 was automatically calculated. defect 1: Size is large. Severity is moderate. Location of defect is in the basal anterior segment, basal anterolateral segment, mid anterior segment, mid anteroseptal segment, mid anterolateral segment, apical anterior segment and apical lateral segment. Reversibility is partial. Type of defect is infarction with ness-infarct or superimposed ischemia. LV Function: Global left ventricular function is normal. Left ventricular ejection fraction is 79 %. CONCLUSIONS: 1 mm or more horizontal inf/lat ST depression. Findings are suggestive of ischemia. Specificity of the observed ST changes is reduced in light of the abnormal resting ECG. Patient had 4/10 chest pain and vomiting during stress test. Resolved with Aminophylline. Global left ventricular function is normal. Left ventricular ejection fraction is 79 %. Size is large. Severity is moderate. Location of defect is in the basal anterior segment, basal anterolateral segment, mid anterior segment, mid anteroseptal segment, mid anterolateral segment, apical anterior segment and apical lateral segment. Reversibility is partial. Type of defect is infarction with ness-infarct or superimposed ischemia although soft tissue attenuation artifact is not excluded. Myocardial perfusion imaging is abnormal. Electronically Signed By: Umang Galicia MD 11/14/2024 11:54:51 AM TECHNOLOGY STRATEGIST Electronically Signed By: Ragini Velasco MD 11/14/2024 12:45:24 PM TECHNOLOGY STRATEGIST Procedure Note Ragini Velasco MD - 11/14/2024 [facility] Cardiology [address] [facility] [address], [place] [address] [facility] [id number], [place] [address] P:[phone] P:[phone] MPI Imaging Report Patient Name: GENARO GAYLE MI : 1955 Study Date: 11/14/2024 8:26:53 AM Gender: F Tech: [facility] Location: [facility] Provider: RAGINI VELASCO Height(Cm): 157.5 BSA: Weight(Kg): 79.4 BMI: 32.01 Order Provider: RAGINI VELASCO - PHYSICIAN: Referring Physician: Dr. Freeman. HCG Physician: Serafin Velasco M.D. Interpreting Physician: Serafin Velasco M.D. Stress Supervision: Umang Galicia M.D., F.A.C.C. PROCEDURES: Pharmacologic SPECT Report: Myocardial perfusion imaging with Tc99M Sestamibi SPECT at rest and stresspost regadenoson (Lexiscan) infusion. INDICATIONS: Hypertension, Family Hx CAD, High Cholesterol, Former Smoker,Palpitations. PVD, I25.118 Atherosclerotic heart disease of [place] coronary artery with other formsof angina pectoris, and R07.89 Other chest pain. FINDINGS: Procedural Findings: One day rest/stress was used. Tc99m Sestamibi injected IV at rest was 10.8 millicuries 32.1 millicuries of Tc99M Sestamibi injected IV during Lexiscan stress Lexiscan 0.4mg administered IV over 10 seconds. Pharmacologic stress related symptoms and/or side effects duringinfusion include chest pressure 4/10 and vomiting. Symptoms were resolved with 100 mg of aminophylline IVP Chest pressureresolved. Baseline heart rate was 82 BPM Maximum Heart Rate Achieved was: 107 BPM Baseline blood pressure was 140/80 mmHg Post Stress Blood Pressure was 140/78 mmHg Termination: Protocol complete. Resting ECG: Sinus rhythm. Nonspecific ST-T abnormalities. Post EC mm or more horizontal inf/lat ST depression. Findings are suggestive ofischemia. Specificity of the observed ST changes is reduced in light of the abnormalresting ECG. Arrhythmia: No arrhythmias seen. Perfusion Findings: Abnormal perfusion imaging - see below. Technical quality of study isexcellent. Prone imaging was not performed. Left ventricle cavity size at rest is normal.Left ventricle cavity size with stress is unchanged. A TID of 0.79 was automaticallycalculated. defect 1: Size is large. Severity is moderate. Location of defect is in the basalanterior segment, basal anterolateral segment, mid anterior segment, mid anteroseptalsegment, mid anterolateral segment, apical anterior segment and apical lateral segment.Reversibility is partial. Type of defect is infarction with ness-infarct or superimposedischemia. LV Function: Global left ventricular function is normal. Left ventricular ejectionfraction is 79 %. CONCLUSIONS: 1 mm or more horizontal inf/lat ST depression. Findings are suggestive ofischemia. Specificity of the observed ST changes is reduced in light of the abnormalresting ECG. Patient had 4/10 chest pain and vomiting during stress test. Resolved withAminophylline. Global left ventricular function is normal. Left ventricular ejectionfraction is 79 %. Size is large. Severity is moderate. Location of defect is in the basalanterior segment, basal anterolateral segment, mid anterior segment, mid anteroseptalsegment, mid anterolateral segment, apical anterior segment and apical lateral segment.Reversibility is partial. Type of defect is infarction with ness-infarct or superimposedischemia although soft tissue attenuation artifact is not excluded. Myocardial perfusion imaging is abnormal. Electronically Signed By: Umang Galicia MD 11/14/2024 11:54:51 AM TECHNOLOGY STRATEGIST Electronically Signed By: Ragini Velasco MD 11/14/2024 12:45:24 PM TECHNOLOGY STRATEGIST us Ragini Velasco MD IMG NM PROCEDURES Final R esult * CT Virtual Colonoscopy Diagnostic W Contrast (01/30/2017 2:38 PM CDT) Anatomical Region Laterality Modality Body N/A Computed Tomogra phy 01/30/2017 2:38 PM CDT Narrative 01/30/2017 2:38 PM CDT Aleksandar BOYER M.D. FINAL REPORT The radiology attending physician has personally reviewed this study, and has reviewed and/or edited this written report and agrees with it. ACC# Date Time Exam [id number] Jan 30, 2017 09:38:[id number] Colonography Screen ACC# Date Time Exam [id number] Jan 30, 2017 09:38:[id number] Colonography Screen EXAMINATION: CT colonography without intravenous contrast HISTORY: Screening. TECHNIQUE: Transaxial computed tomographic images through the abdomen and pelvis were obtained without intravenous contrast after the colonic insufflation of CO2 through a rectal catheter. COMPARISON: CT of the abdomen and pelvis dated 09/20/2011. FINDINGS: The following findings are reported according to the CT Colonography Reporting and Data System (C-RADS) from Radiology 2005; 236:3-9. Colonic preparation and distention: There is poor distention of the sigmoid colon rendering it inadequate for evaluation. The remainder of the colon is adequate for evaluation although unopacified fluid at the hepatic flexure and in the ascending colon limits evaluation. Colonic findings: No polyps greater than 6 mm are detected. Extracolonic findings: This CT examination is performed with a low dose technique optimized for evaluation of the colon. The gallbladder, left kidney and spleen are surgically absent. Soft tissue in the nephrectomy bed has increased since the prior CT examination of September 2011. It measures 3.7 x 2.0 cm, previously 3.0 x 1.5 cm. 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 A stent is present within the left external iliac artery. A femoral-femoral bypass graft is identified. IMPRESSION: 1. C-RADS C0: Inadequate study secondary to incomplete distention of the sigmoid colon. No polyps, masses, or strictures are identified in the remaining colonic segments. However, sensitivity for polyp detection may be compromised by the presence of unopacified colonic fluid. 2. C-RADS E4: Potentially important finding of soft tissue in the left nephrectomy bed which has increased in size since September 2011. Differential considerations include splenic tissue versus recurrent tumor given the history of papillary adenocarcinoma of the left kidney. Further evaluation with heat-damaged red blood cell scan and/or contrast enhanced CT is recommended for further evaluation. Finding was communicated to Dr. Tompkins at 2:45 p.m. on 01/30/2017. Requested By: Heavenly Tompkins M.D. Dictated By: PUNEET ALVAREZ M.D. on Jan 30 2017 2:47P This document has been electronically signed by: GRAZYNA SHAW M.D. on Jan 30 2017 5:45P [id number] Procedure Note Miscellaneous, Notinfile / Provider, MD Alicia - 04/04/2017 Aleksandar BOYER M.D. FINAL REPORT The radiology attending physician has personally reviewed this study, and has reviewed and/or edited this written report and agrees with it. ACC# Date Time Exam [id number] Jan 30, 2017 09:38:[id number] Colonography Screen ACC# Date Time Exam [id number] Jan 30, 2017 09:38:[id number] Colonography Screen EXAMINATION: CT colonography without intravenous contrast HISTORY: Screening. TECHNIQUE: Transaxial computed tomographic images through the abdomen and pelvis were obtained without intravenous contrast after the colonic insufflation of CO2 through a rectal catheter. COMPARISON: CT of the abdomen and pelvis dated 09/20/2011. FINDINGS: The following findings are reported according to the CT Colonography Reporting and Data System (C-RADS) from Radiology 2005; 236:3-9. Colonic preparation and distention: There is poor distention of the sigmoid colon rendering it inadequate for evaluation. The remainder of the colon is adequate for evaluation although unopacified fluid at the hepatic flexure and in the ascending colon limits evaluation. Colonic findings: No polyps greater than 6 mm are detected. Extracolonic findings: This CT examination is performed with a low dose technique optimized for evaluation of the colon. The gallbladder, left kidney and spleen are surgically absent. Soft tissue in the nephrectomy bed has increased since the prior CT examination of September 2011. It measures 3.7 x 2.0 cm, previously 3.0 x 1.5 cm. 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 A stent is present within the left external iliac artery. A femoral-femoral bypass graft is identified. IMPRESSION: 1. C-RADS C0: Inadequate study secondary to incomplete distention of the sigmoid colon. No polyps, masses, or strictures are identified in the remaining colonic segments. However, sensitivity for polyp detection may be compromised by the presence of unopacified colonic fluid. 2. C-RADS E4: Potentially important finding of soft tissue in the left nephrectomy bed which has increased in size since September 2011. Differential considerations include splenic tissue versus recurrent tumor given the history of papillary adenocarcinoma of the left kidney. Further evaluation with heat-damaged red blood cell scan and/or contrast enhanced CT is recommended for further evaluation. Finding was communicated to Dr. Tompkins at 2:45 p.m. on 01/30/2017. Requested By: Heavenly Tompkins M.D. Dictated By: PUNEET ALVAREZ M.D. on Jan 30 2017 2:47P This document has been electronically signed by: GRAZYNA SHAW M.D. on Jan 30 2017 5:45P [id number] us Not In File Miscellaneous IMG CT PROCEDURES Evelin l Result from Last 3 Months or Most Recently Relevant to Health Maintenance Additional Health Concerns Infection Onset Date Last Indicated MDR gram neg/ESBL 11/29/2023 11/29/2023 Insurance [facility] [id number] [place] [address] HEALTHCARE Advance Directives For more information, please contact: [phone] * Full Code (Latest Code Status on File) Date Activated Date Inactivated Comments 11/28/2023 12:54 PM 12/01/2023 6:05 PM Care Teams Estimator And Drafter Supervisor Relationship Specialty Start Date End Date Ricardo Freeman DO [address] [address] PCP - General Internal Medicine 06/19/24
--- OUTSIDE RECORDS SUMMARY | 2024-12-20 01:32 | XMS_ITS | Referral Summary ---
Author Organization [facility] Address [address] [place] [address] Care Team Providers Care Boilermaker Mechanic Name Role Phone Ricardo Freeman DO Primary Care Provider [phone] Encounters Date Type Department Care Team Description 12/16/2024 Orders Only [facility] Vascular at [address] [place] [id number] Osvaldo Pereira MD Peripheral arterial occlusive disease (CMS/HCC) (HCC) (Primary Dx); Other specified symptoms and signs involving the circulatory and respiratory systems 12/13/2024 9:00 AM HAT LINING BLOCKER Office Visit [facility] Cardiology [address] [place] [address] Ragini Velasco MD 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 (CMS/HCC) (Primary Dx); Primary hypertension; Chronic anticoagulation; Peripheral arterial occlusive disease (CMS/HCC) (HCC); Preop cardiovascular exam 12/11/2024 7:53 AM HAT LINING BLOCKER - 12/11/2024 11:59 PM HAT LINING BLOCKER Hospital Encounter [facility] [address] [place] [address] Discharge Disposition: Discharge to home or self care 12/11/2024 7:53 AM HAT LINING BLOCKER - 12/11/2024 11:59 PM HAT LINING BLOCKER Hospital Encounter [facility]) [address] [place] [address] [place] [address] 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 (CMS/HCC) Discharge Disposition: Discharge to home or self care 12/11/2024 7:52 AM HAT LINING BLOCKER - 12/11/2024 11:59 PM HAT LINING BLOCKER Hospital Encounter [facility] [address] [place] [address] Discharge Disposition: Discharge to home or self care 12/11/2024 7:51 AM HAT LINING BLOCKER - 12/11/2024 11:59 PM HAT LINING BLOCKER Hospital Encounter [facility] [address] [place] [address] 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 (CMS/HCC) Discharge Disposition: Discharge to home or self care 12/10/2024 Telephone [facility] Cardiology [address] [place] [address] [address] [place] [phone] Ragini Velasco MD 12/05/2024 Telephone [facility] Care Services [address] [place] [address] [facility]/15[facility]24 Telephone [facility] Cardiology [address] [facility] [address] [place] [address] Ragini Velasco MD 11/14/2024 8:15 AM HAT LINING BLOCKER Ancillary Procedure [facility] Cardiology [address] [place] [address] [address] [place] [address] 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 (CMS/HCC); Chest pressure 11/01/2024 8:15 AM HAT LINING BLOCKER Office Visit [facility] Cardiology [address] [place] [address] [address] [place] [address] Ragini Velacso MD 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 Medical Office Building [address] [place] [address] Jorge Manning MD Recurrent incisional hernia (Primary Dx) from Last 3 Months Allergies No known active allergies Medications oxybutynin XL (DITROPAN XL) 15 mg 24 hr tablet take 1 tablet by oral route every day 0 0 01/20/20 16 Active cholecalciferol (VITAMIN D-3) 2000 unit tabletIndications: For supplement Take 1 tablet (2,000 Units total) by mouth every morning Active levothyroxine (SYNTHROID) 88 mcg tabletIndications: hypothyroidism Take 1 tablet (88 mcg total) by mouth talent acquisition partner before breakfast Active albuterol HFA (PROVENTIL HFA,VENTOLIN [...] 12 hr tabletIndications: 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 Assessment & Plan (12/27/2022 8:50 AM HAT LINING BLOCKER): Impression: Patient has a 3.3 cm infrarenal abdominal aortic aneurysm seen on a CT abdomen pelvis in September 2022. She remains asymptomatic. Plan: We will continue to monitor with an abdominal duplex in September. Chronic venous insufficiency 12/27/2022 Atherosclerosis of kake ar teries of extremities with intermittent claudication, bilateral legs 12/27/2022 Assessment & Plan (06/20/2024 12:12 PM CDT): Patent fem-fem bypass graft per current duplex. Patient denies any claudication symptoms. Follow up in 6 months for routine surveillance with a fem-fem duplex continue aspirin Plavix and statin therapy. Assessment & Plan (12/21/2023 1:28 PM HAT LINING BLOCKER): Bilateral lower extremity arterial occlusive disease status [...] duplex Assessment & Plan (12/27/2022 9:00 AM HAT LINING BLOCKER): Impression: Patient has a history of iliac occlusion and underwent a fem-fem bypass graft by Dr. Sheldon in 2014. Patient denies any worsening symptoms of claudication, ischemic rest pain or ulcerations to her lower extremity. Plan: Patient to follow-up with an arterial duplex during her postop venous duplex scans. History of DVT (deep vein thrombosis) 11/29/2022 Assessment & Plan (11/29/2022 10:06 AM HAT LINING BLOCKER): Impression: Patient has a history of a [...] 05/19/2023. Assessment & Plan (12/27/2022 8:59 AM HAT LINING BLOCKER): Impression: Patient continues to complain of pain [...] procedure. Assessment & Plan (11/29/2022 10:00 AM HAT LINING BLOCKER): Impression: Patient complains of pain to left [...] needed. Assessment & Plan (12/27/2022 8:48 AM HAT LINING BLOCKER): Impression: Patient has mild bilateral internal carotid arteries. She remains asymptomatic. Plan: Patient has mild carotid stenosis seen on duplex. No longer require surveillance. Follow up as needed. Encourage patient to notify the office or present to the ED if she experiences stroke-like symptoms. Patient voices understanding. Assessment & Plan (11/29/2022 10:30 AM HAT LINING BLOCKER): Impression: Patient has a history of bilateral carotid artery stenosis being followed by her microbiology soil scientist. Patient requesting the office to monitor. Patient [...] artery disease of n ative artery of kake heart with stable angina pectoris 10/01/2015 Overview (02/17/2017): Coronary artery disease Preoperative state 02/20/2015 Overview (02/17/2017): Pre-operative cardiovascular examination Hypertension 02/20/2015 Overview (02/17/2017): Hypertension Assessment & Plan (06/21/2023 11:15 AM CDT): Stable continue lisinopril 10 mg. Assessment & Plan (12/27/2022 9:05 AM HAT LINING BLOCKER): Impression: Chronic hypertension. Plan: Continue Coreg and lisinopril. Assessment & Plan (11/29/2022 10:32 AM HAT LINING BLOCKER): Impression: Chronic hypertension, controlled with Coreg and lisinopril. Plan: Continue blood pressure management with Coreg and lisinopril as per primary care provider/cardiology. Renal insufficiency 02/20/2015 Overview (02/17/2017): Renal insufficiency Ventricular premature beats 02/20/2015 Overview (02/17/2017): PVCs (premature ventricular contractions) History of tobacco abuse 02/20/2015 Overview (02/17/2017): Former tobacco use Hyperlipidemia LDL goal <70 02/20/2015 Overview (02/17/2017): High cholesterol Peripheral arterial occlusive disease (CMS/HCC) 02/20/2015 Overview (02/17/2017): PAD (peripheral artery disease) [...] Bilateral carotid bruits Deep vein thrombosis (DVT) ([facility]) 02/20/2015 Overview (02/17/2017): DVT (deep venous thrombosis) History of anticoagulant therapy 02/20/2015 Overview (02/17/2017): Chronic anticoagulation Retroperitoneal fibrosis 02/20/2015 Overview (02/17/2017): Retroperitoneal fibrosis Leukocytosis 08/19/2014 Exomphalos 07/04/2012 Allergic rhinitis 04/24/2012 Esophageal reflux 04/24/2012 Resolved Problems Problem Noted Date Diagnosed Date Resolved Date Atherosclerosis of aorta ([facility]) 12/26/2011 12/27/2022 Immunizations Name Administration Dates Next Due Influenza, Quadrivalent, Celia l Culture-based MDCK, Antibiotic Free, Intramuscular 08/13/2019 Influenza, Quadrivalent, Rec ombinant, Egg Free, Preservative Free, Intramuscular 08/26/2020 Influenza, Quadrivalent, Spl it, Preservative Free, Intramuscular 10/23/2019,08/02/2018 Pneumococcal Conjugate PCV 13 11/16/2016 ZOSTER Recombinant 10/30/2018,08/08/2018 Social History Tobacco Use Types Packs/Day Years [...] on file Legal Sex Female 2:59 AM HAT LINING BLOCKER Gender Identity Not on file Sexual Orientation Not on file Last Filed Vital Signs Vital Sign Reading Time Taken Comments Blood Pressure 114/56 12/13/2024 9:07 AM HAT LINING BLOCKER Pulse 76 12/13/2024 9:07 AM HAT LINING BLOCKER Temperature 37.1 C (98.7 F) 06/28/2024 9:02 AM CDT Respiratory Rate 16 12/01/2023 7:30 AM HAT LINING BLOCKER Oxygen Saturation 97% 12/13/2024 9:07 AM HAT LINING BLOCKER Inhaled Oxygen Concentration - - Weight 78 kg (172 lb) 12/13/2024 9:07 AM HAT LINING BLOCKER Height 157.5 cm (5' 2 ) 12/13/2024 9:07 AM HAT LINING BLOCKER Body Mass Index 31.46 12/13/2024 9:07 AM HAT LINING BLOCKER Plan of Treatment Upcoming Encounters Date Type Department Care Team (Late st Contact Info) Description 03/18/2025 Hospital Encounter [facility] Operating Room [address] [place] [address] Jorge Chapin MD [address] [place] [address] Scheduled Procedures Name Priority Associated Diagnoses Date/Ti me XI REPAIR INCISIONAL HERNIA - LAPAROSCOPIC ROBOTIC ASSISTED Recurrent incisional hernia with incarceration XI ROBOTIC ABDOMINAL WALL RECONSTRUCTION Recurrent incisional hernia with incarceration Procedures Procedure Name Priority Date/Time Associated Diagnosis Comments POCT LIPID PANEL Routine 12/13/2024 9:08 AM HAT LINING BLOCKER 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 (CMS/HCC) PET/CT MYOCARDIAL METABOLIC EVALUATION FOR VIABILITY Schedule Routine, Read Routine (OP Routine) 12/11/2024 12:47 PM HAT LINING BLOCKER 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 (CMS/HCC) NM MPI SPECT SINGLE STUDY (REST) VIABILITY Schedule Routine, Read Routine (OP Routine) 12/11/2024 9:27 AM HAT LINING BLOCKER 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 (CMS/HCC) NM MPI SPECT (REST AND/OR STRESS) MULTIPLE STUDIES Schedule Routine, Read Routine (OP Routine) 11/14/2024 10:14 AM HAT LINING BLOCKER 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 (CMS/HCC) Chest pressure CT VIRTUAL COLONOSCOPY DIAGNOSTIC W CONTRAST Routine 01/30/2017 2:38 PM CDT from Last 3 Months or Most Recently Relevant to Health Maintenance Results * POCT lipid panel (12/13/2024 9:08 AM HAT LINING BLOCKER) Cholesterol, POC 114 mg/dL HDL, POC 46 mg/dL Triglycerides, POC 136 mg/dL LDL Cholesterol POC 41 mg/dL Chol/HDL Ratio, POC 0.9 Non-HDL Cholesterol, POC 69 mg/dL Cholesterol Total, POC 114 mg/dL Capillary blood 12/13/2024 9 :08 AM HAT LINING BLOCKER us Ragini Velasco MD POINT OF CARE TEST ORDERA BLES Final Result * PET/CT Myocardial Metabolic Evaluation for Viability (12/11/2024 12:47 PM HAT LINING BLOCKER) Anatomical Region Laterality Modality N/A Positron Emissio n Tomography (PET) 12/11/2024 5:36 PM HAT LINING BLOCKER Impressions 12/11/2024 5:39 PM HAT LINING BLOCKER 1. Viable myocardium in the small and [...] Jannet English M.D. Narrative 12/11/2024 5:39 PM HAT LINING BLOCKER EXAMINATION: MYOCARDIAL PET/CT (METABOLISM) DATE OF STUDY: 12/11/2024 SCANNER: [facility] RADIOPHARMACEUTICAL: 10.61 mCi F-18 Fluorodeoxyglucose (FDG) i.v., [...] minutes. The study was interpreted on the [employer] workstation. At the conclusion of the study, [...] PET/CT (METABOLISM) DATE OF STUDY: 12/11/2024 SCANNER: [facility] RADIOPHARMACEUTICAL: 10.61 mCi F-18 Fluorodeoxyglucose (FDG) i.v., [...] minutes. The study was interpreted on the [employer] workstation. At the conclusion of the study, [...] it. Electronically signed by: Jannet English M.D. Ragini Velasco MD IM PET PROCEDURES Final Result * NM MPI SPECT Single Study (Rest) for Viability (12/11/2024 9:27 AM HAT LINING BLOCKER) Anatomical Region Laterality Modality Body N/A Nuclear Medicine 12/11/2024 5:30 PM HAT LINING BLOCKER Impressions 12/11/2024 5:36 PM HAT LINING BLOCKER 1. Small size and mildly severe decreased rest perfusion defect of anterior and anteroseptal wall. 2. Normal left ventricular size and systolic function. Drs. Bojorquez and Fermin also participated in the interpretation of this examination. Please refer to the same day FDG PET for viability accession #[id number] for more information. Dictated by: Anita Quinones M.D. The radiology attending physician has personally reviewed this study, and had reviewed and/or edited this written report and agrees with it. Electronically signed by: Jannet English M.D. Narrative 12/11/2024 5:36 PM HAT LINING BLOCKER EXAMINATION: MYOCARDIAL IMAGING (REST/SPECT-CT) DATE OF STUDY: [...] same day FDG PET for viability accession #[id number] for more information. Dictated by: Anita Quinones M.D. The radiology attending physician has personally reviewed this study, and had reviewed and/or edited this written report and agrees with it. Electronically signed by: Jannet English M.D. us Ragini Velasco MD [facility] NM PROCEDURES Final R esult * NM MPI SPECT (Rest and/or Stress) Multiple Studies (11/14/2024 10:14 AM HAT LINING BLOCKER) Anatomical Region Laterality Modality Body N/A Nuclear Medicine 11/14/2024 8:26 AM HAT LINING BLOCKER Narrative 11/14/2024 12:45 PM HAT LINING BLOCKER [facility] Cardiology [address] [facility] [address], [place] [address] [address] [facility] [address], [place] [address] P:[phone] P:[phone] MPI Imaging Report Patient Name: GENARO GAYLE [place] : 1955 Study Date: 11/14/2024 8:26:53 AM Gender: F Tech: [facility] Location: [facility] Provider: RAGINI VELASCO Height(Cm): 157.5 BSA: Weight(Kg): [...] Palpitations. PVD, I25.118 Atherosclerotic heart disease of kake coronary artery with other forms of angina [...] By: Umang Galicia MD 11/14/2024 11:54:51 AM HAT LINING BLOCKER Electronically Signed By: Ragini Velasco MD 11/14/2024 12:45:24 PM HAT LINING BLOCKER Procedure Note Ragini Velasco MD - 11/14/2024 [facility] Cardiology [address] [facility] [address] [address] [address], [place] [address] P:[phone] P:[phone] MPI Imaging Report Patient Name: GENARO GAYLE [place] : 1955 Study Date: 11/14/2024 8:26:53 AM Gender: F Tech: [facility] Location: [facility] Provider: RAGINI VELASCO Height(Cm): 157.5 BSA: Weight(Kg): [...] Smoker,Palpitations. PVD, I25.118 Atherosclerotic heart disease of kake coronary artery with other formsof angina pectoris, [...] By: Umang Galicia MD 11/14/2024 11:54:51 AM HAT LINING BLOCKER Electronically Signed By: Ragini Velasco MD 11/14/2024 12:45:24 PM HAT LINING BLOCKER us Rgaini Velasco MD IMG NM PROCEDURES Final R esult * CT Virtual Colonoscopy Diagnostic W Contrast (01/30/2017 2:38 PM CDT) Anatomical Region Laterality Modality Body N/A Computed Tomogra phy 01/30/2017 2:38 PM CDT Narrative 01/30/2017 2:38 PM CDT MOTOYO YANO, M.D. PUNEET VIETS, M.D. FINAL REPORT The radiology attending physician has personally reviewed this study, and has reviewed and/or edited this written report and agrees with it. ACC# Date Time Exam [id number] Jan 30, 2017 09:38:[id number] Colonography Screen ACC# Date Time Exam [id number] Jan 30, 2017 09:38:[id number] Colonography Screen EXAMINATION: CT colonography without [...] SHAW M.D. on Jan 30 2017 5:45P [id number] Procedure Note Miscellaneous, Notinfile / Provider, MD Alicia - 04/04/2017 GRAZYNA SHAW M.D. PUNEET ALVAREZ M.D. FINAL REPORT The radiology attending physician has personally reviewed this study, and has reviewed and/or edited this written report and agrees with it. ACC# Date Time Exam [id number] Jan 30, 2017 09:38:[id number] Colonography Screen ACC# Date Time Exam [id number] Jan 30, 2017 09:38:[id number] Colonography Screen EXAMINATION: CT colonography without [...] SHAW M.D. on Jan 30 2017 5:45P [id number] us Not In File Miscellaneous IMG CT PROCEDURES Evelin l Result from Last 3 Months or Most Recently Relevant to Health Maintenance Additional Health Concerns Infection Onset Date Last Indicated MDR gram neg/ESBL 11/29/2023 11/29/2023 Insurance [facility] Advance Directives For more information, please contact: [phone] * Full Code (Latest Code Status on File) Date Activated Date Inactivated Comments 11/28/2023 12:54 PM 12/01/2023 6:05 PM Care Teams Boilermaker Mechanic Relationship Specialty Start Date End Date Ricardo Freeman DO [address] [address] PCP - General Internal Medicine 06/19/24
[2024-12-20 06:21] VITALS: BP 119/55; PULSE 72; RESP 18; TEMP 36.9; O2SAT 99
[2024-12-20] MEDS: LACTATED RINGERS 1,000 ML 30 ML IV CONT (07:00)
--- NOTE | 2024-12-20 07:16 | WPDHPUPDATE1 ---
History and Physical Update Update Date/Time: 12/20/24 07:16 History and Physical has been reviewed, including an updated exam of the patient. There are NO changes in the patient's condition. Risks, benefits, and alternatives have been discussed and questions answered. Patient agrees to proceed with procedure.
[2024-12-20 07:25] LABS: INR 1.1; Prothrombin Time 14.5 Seconds (11.1-14.7)
[2024-12-20] MEDS: ceFAZolin 2 GM/D5W 50 ML 2 GM/50 ML BAG IVPB (08:17)
[2024-12-20] MEDS: TRIAMCINOLONE ACET INJ 40 MG/ML VIAL 200 MG IM (08:41)
[2024-12-20 08:48] VITALS: BP 116/55; PULSE 73; RESP 16; O2SAT 98
--- NOTE | 2024-12-20 08:50 | P.OP_ITS ---
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 She has repeat symptoms. She is on antibiotics and treated for urinary tract infection. She understands risks of bleeding, infection, damage to the urinary tract. She agrees to proceed Findings diffuse inflammation on the posterior wall the bladder. Two areas consistent with Hunner's ulceration. Description of Procedure She has correctly identified. Informed consent obtained. She had from the operating room. She was given monitored anesthesia care. She was placed in dorsal lithotomy position. She was prepped and draped sterile fashion. Time- out was performed. On cystoscopy she has an abnormal appearing bladder. There was areas of inflammation on the posterior wall. There was 2 more discrete areas consistent with Hunner's ulceration. These were far away from the ureteral orifice. I did the mucosal biopsy of the area back wall the bladder. I then injected Kenalog 40 milligrams/mL 5 cc total. I did this into the ulcerated areas. The biopsy site as well as the injection sites were fulgurated. There was no bleeding under low insufflation pressures. She was a wakened transferred PACU in stable condition. Estimated Blood Loss 2 Pathology Yes ( Bladder biopsy) Complications No immediate complications Condition Stable Disposition PACU
[2024-12-20 09:15] VITALS: BP 116/55; PULSE 73; RESP 20
[2024-12-20 09:44] VITALS: BP 121/54; PULSE 72; RESP 20
== END 2024-12-20 10:03 | disposition home or self-care (01) ==
PROVIDERS: PCP Internal Medicine; Visit Provider Urology
PROC: 0TBB8ZX Excision of Bladder, Via Natural or Artificial Opening Endoscopic, Diagnostic (ICD-10-PCS; CPT 52204; principal; 2024-12-20 08:15)
DX: N30.10 Interstitial cystitis (chronic) without hematuria (principal); I12.9 Hypertensive chronic kidney disease with stage 1 through stage 4 chronic kidney disease, or unspecified chronic kidney disease; N18.30 Chronic kidney disease, stage 3 unspecified; I48.0 Paroxysmal atrial fibrillation; I25.10 Atherosclerotic heart disease of native coronary artery without angina pectoris; J44.9 Chronic obstructive pulmonary disease, unspecified; E03.9 Hypothyroidism, unspecified; I73.9 Peripheral vascular disease, unspecified; Z87.891 Personal history of nicotine dependence; E66.9 Obesity, unspecified; Z68.30 Body mass index [BMI] 30.0-30.9, adult; Z79.01 Long term (current) use of anticoagulants
CPT/HCPCS: 52204; 52283; 36415; 85610; 88305; J0690; J2003; J2704; J3301; J7120

== ENCOUNTER 2025-01-13 17:58 | Inpatient (IN) | payer OTHER, SELFPAY ==
[2025-01-10 17:04] VITALS: BMI 29.7
[2025-01-13] VITALS (27 sets, daily range): BP systolic 110–173; BP diastolic 53–97; PULSE 67–92; RESP 14–22; TEMP 36.6–37.2; O2SAT 87–100
--- NOTE | ~2025-01-13 | XR_ITS ---
Portable chest x-ray Comparison: 01/22/2025 Clinical History: Pneumonia Findings: [id number] left pleural effusion present with left lower lobe atelectasis and/or pn eumonia. Right lung essentially clear. Cardiomediastinal silhouette is stable. Bones and soft tissue s are unremarkable. Impression: [id number] left pleural effusion with left lower lobe atelectasis and/or pneumonia. Correlate clinically. Reviewed, dictated and finalized at location . Impression: [id number] left pleural effusion with left lower lobe atelectasis and/or pneumonia. Correlate clinically.
--- NOTE | ~2025-01-13 | XR_ITS ---
XR chest 1V portable Ordering provider: David Chadwick MD History: 69 years Female with . ?pneumonia . Comparison: January 20, 2025 FINDINGS: MEDIASTINUM: The cardiac silhouette is not enlarged. Slightly prominent kendall. Possibility of right in frahilar rounded opacity is not excluded. Follow-up advised. LUNGS: No pneumothorax. Opacification the left lung base is seen suggestive of atelectasis versus pne umonia with possible minimal effusion. OTHER: No free air under the diaphragm. Right shoulder arthroplasty. IMPRESSION: Left basilar atelectasis versus pneumonia with possible minimal effusion. Prominent kendall with possible right infrahilar opacity. Follow-up advised. Reviewed, dictated and finalized at location A.
--- NOTE | ~2025-01-13 | CT_ITS ---
CTA chest Ordering provider: Jana Vieira APRN History: 69 years Female with . possible sepsis . Comparison: None. Technique: CT angiogram chest was performed following timed intravenous injection of contrast. Thin s lice axial images and reformatted coronal images were obtained. Three dimensional reformatted images of the chest were also obtained using a [employer] workstation. . Automated exposure control and iterati ve reconstruction technique were employed. The dose-length product was 427.34 mGy-cm. 100 mL Omnipaqu e 350 was given IV. Findings: PULMONARY ARTERIES: Pulmonary embolism is seen in the branches of the right and left lower and upper lobes arteries. VISUALIZED THORACIC INLET: Normal. MEDIASTINUM: Aorta/coronary arteries: Mild atheromatous disease. Heart/other: The heart is not enlarged. Trace of pericardial effusion. Lymph nodes: No mediastinal or hilar adenopathy. Dilated upper esophagus with air-fluid level. LUNGS: Bilateral basal pneumonia No pulmonary nodules or masses. No effusion or pneumothorax. VISUALIZED UPPER ABDOMEN: Status post splenectomy with splenules. Status post left nephrectomy. Promi nent left adrenal gland. Otherwise, the visualized upper abdomen is normal. MUSCULOSKELETAL: Soft tissues: The superficial soft tissues are normal. Bones: Age appropriate degenerative changes of the spine. IMPRESSION: 1. Pulmonary embolism. 2. Bilateral basal pneumonia. 3. Trace of pericardial effusion. 4. Status post left nephrectomy and splenectomy. Prominent left adrenal gland. Physician: Jana Vieira APRN Was notified with the result of the patient at 3:24 PM on January 14, 2025 Reviewed, dictated and finalized at location A. GER PROGRAM
--- NOTE | ~2025-01-13 | CT_ITS ---
CT diagnostic chest wo con Ordering provider: David Chadwick MD History: 69 years Female with . L penumonia, effusion . Comparison: January 14, 2025 Technique: CT chest without IV contrast. FINDINGS: VISUALIZED THORACIC INLET: Normal. MEDIASTINUM: Aorta/coronary arteries: Mild atheromatous disease. Heart/other: The heart is not enlarged. Trace of pericardial effusion. Lymph nodes: No mediastinal or hilar adenopathy. Small lymph nodes are seen in the paratracheal and p revascular area with the largest measuring 9 mm. Precarinal lymph nodes are noted with the largest me asures 1 cm. LUNGS: Moderate left pleural effusion. Pneumonia involving the left lower lobe. Minimal pneumonia in the right lung base. Focal areas of pneumonia seen in the right upper lobe posteriorly and in the mid dle lobe No pulmonary nodules or masses. . No pneumothorax. VISUALIZED UPPER ABDOMEN: Status post cholecystectomy. Status post splenectomy and left nephrectomy. Soft tissue density is seen in the left renal bed measuring 3.1 most likely a splenule. Other differe ntial is not excluded. Otherwise, the visualized upper abdomen is normal. MUSCULOSKELETAL: Soft tissues: The superficial soft tissues are normal. Bones: Age appropriate degenerative changes of the spine. IMPRESSION: 1. Pneumonia involving the left lower lobe and right lung base. Changes are worse than the previous study. 2. Moderate left pleural effusion. Reviewed, dictated and finalized at location A. IMPRESSION: 1. Pneumonia involving the left lower lobe and right lung base. Changes are wo rse than the previous study. 2. Moderate left pleural effusion.
--- NOTE | ~2025-01-13 | US_ITS ---
BILATERAL LOWER EXTREMITY VENOUS ULTRASOUND Ordering provider: Umang Galicia MD History: . Eval for DVT. Has PE. . Comparison: None. FINDINGS: RIGHT LOWER EXTREMITY VEINS: --COMMON FEMORAL: Patent and free of thrombus. Normal compressibility, phasic flow and augmentation. --PROXIMAL SUPERFICIAL FEMORAL: Patent and free of thrombus. Normal compressibility, phasic flow and augmentation. --DISTAL SUPERFICIAL FEMORAL: Patent and free of thrombus. Normal compressibility, phasic flow and au gmentation. --POPLITEAL: Patent and free of thrombus. Normal compressibility, phasic flow and augmentation. --POSTERIOR TIBIAL: Thrombosed. --Peroneal vein: Thrombosed. LEFT LOWER EXTREMITY VEINS: --COMMON FEMORAL: Patent and free of thrombus. Normal compressibility, phasic flow and augmentation. --PROXIMAL SUPERFICIAL FEMORAL: Patent and free of thrombus. Normal compressibility, phasic flow and augmentation. --DISTAL SUPERFICIAL FEMORAL: Patent and free of thrombus. Normal compressibility, phasic flow and au gmentation. --POPLITEAL: Patent and free of thrombus. Normal compressibility, phasic flow and augmentation. --POSTERIOR TIBIAL: Thrombosed. --Peroneal vein: Thrombosed. IMPRESSION: Bilateral deep vein thrombosis involving the posterior tibial and peroneal veins.. Reviewed, dictated and finalized at location A. ARCHITECT IMPRESSION: Bilateral deep vein thrombosis involving the posterior tibial and peroneal vein s..
--- NOTE | ~2025-01-13 | XR_ITS ---
XR chest 1V portable Ordering provider: Camron Morales MD History: 69 years Female with . PE and influenza . Comparison: January 14, 2025 FINDINGS: MEDIASTINUM: The cardiac silhouette is slightly enlarged. LUNGS: No effusions or pneumothorax. Opacification the left lung base is seen suggestive of atelectas is versus pneumonia Underlying emphysematous changes. OTHER: No free air under the diaphragm. Right shoulder arthroplasty. IMPRESSION: Left basilar atelectasis versus pneumonia which is probably increased compared to previous study. Reviewed, dictated and finalized at location A.
--- NOTE | ~2025-01-13 | XR_ITS ---
CHEST RADIOGRAPH CLINICAL HISTORY: Pneumonia . COMPARISON: 01/21/2025 TECHNIQUE: Single portable view of the chest. FINDINGS The cardiomediastinal silhouette is unremarkable. Redemonstration of blunting of the left costophrenic sulcus with adjacent compressive atelectasis/con solidation (favored). Increased density of the left hemidiaphragm is also detected suggesting left basilar consolidation, r ather than atelectasis. The remainder of the lungs are clear. IMPRESSION: Left lower lobe infiltrate with a left-sided pleural effusion. Reviewed, dictated and finalized at location []
--- NOTE | ~2025-01-13 | XR_ITS ---
EXAMINATION: XR chest 1V portable DATE: 01/14/2025 14:15 INDICATION: Abnormal chest radiograph. TECHNIQUE: A single frontal view of the chest was obtained. COMPARISON: Chest single view at 5:21 AM, CT abdomen and pelvis 11/25/2024 FINDINGS: There are airspace opacities in left lower lobe. No pleural effusion or pneumothorax. The h eart size is normal. There is a total right shoulder arthroplasty. There are surgical clips in left a bdomen. IMPRESSION: 1. Stable airspace opacities in left lower lobe, consistent with atelectasis versus pneumonia. Reviewed, dictated and finalized at location A. [employer] MANAGER IMPRESSION: 1. Stable airspace opacities in left lower lobe, consistent with atelectasis ve rsus pneumonia.
--- NOTE | ~2025-01-13 | XR_ITS ---
Portable chest x-ray Comparison: 11/25/2024 Clinical History: Shortness of breath Findings: There is left basilar airspace consolidation. Right lung essentially clear. Cardiomediast inal silhouette is stable. Right shoulder arthroplasty in place. Suspected moderate hiatal hernia. Impression: Left lower lobe pneumonia. Probable moderate hiatal hernia. Reviewed, dictated and finalized at [facility]. [employer] Impression: Left lower lobe pneumonia. Probable moderate hiatal hernia.
--- OUTSIDE RECORDS SUMMARY | 2025-01-13 01:40 | XMS_ITS | Clinical Summary ---
Author Organization [facility] Address [address] [place] [address] Care Team Providers Care Appointment Scheduler Name Role Phone Carlito Guerrero MD Primary Care Provider [phone] Sarabjit Velasco MD Unavailable [phone] Allergies No known active allergies Medications No [...] complete this topic Insurance [employer] Care Teams Appointment Scheduler Relationship Specialty Start Date End Date Carlito Guerrero MD [address] [place] [address] PCP - General INTERNAL MEDICINE 05/11/22 Sarabjit Velasco MD [address] [facility] [address] [place] [address] CARDIOVASCULAR DISEASE 05/11/22
--- OUTSIDE RECORDS SUMMARY | 2025-01-13 01:40 | XMS_ITS | Clinical Summary ---
Author Organization [facility] Address [address] [place] [address] Phone Care Team Providers Care Loader Operator Name Role Phone Carlito Guerrero Primary Care Provider [phone] Allergies No known active allergies Medications Medication [...] 10 MCG (400 UNIT) tablet Active Coral Gqlftah-Bihfbjmis-Muk D (RA CORAL CALCIUM) 200-100-100 MG-MG-UNIT capsule [...] absence of kidney 02/18/2018 Coronary arteriosclerosis in [place] artery 10/01 Overview (05/22/2019): Coronary artery disease [...] Influenza Vaccine (#1) 2024 08/13/2019 Care Teams Loader Operator Relationship Specialty Start Date End Date Carlito Guerrero DO [address] [facility] [address] [place] [address] PCP - General Internal Medicine 05/22/19
--- OUTSIDE RECORDS SUMMARY | 2025-01-13 01:40 | XMS_ITS | Referral Summary ---
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 Minimally Invasive Surgery [address] [facility] 12th Floor, [place] [address] Kiara Reeder, ZAFAR 12/31/2024 Telephone [facility] Advanced Medicine ([facility]) - [facility] Minimally Invasive Surgery [address] [facility] 12th Floor, [place] [address] Jorge Manning MD Medical Question/Miscellaneou s 12/31/2024 Telephone [facility] Medical Group Cardiology [address] [place] [address] Ragini Velasco MD cardiac clearance 12/31/2024 1:00 PM ESCROW CLERK Pre-Admission Testing [facility] for Preoperative Assessment and Planning [facility] [address] [place] [address] Preoperative testing (Primary Dx) 12/30/2024 8:03 AM ESCROW CLERK - 12/30/2024 11:59 PM ESCROW CLERK Hospital Encounter [facility] Medical Office Building [address] [address] Peripheral arterial occlusive disease (CMS/HCC) (HCC); Other specified symptoms and signs involving the circulatory and respiratory systems Discharge Disposition: Discharge to home or self care 12/30/2024 8:00 AM ESCROW CLERK - 12/30/2024 11:59 PM ESCROW CLERK Hospital Encounter [facility] Medical Office Building 2 Vascular [address] [facility] [address] [place] [address] Peripheral arterial occlusive disease (CMS/HCC) (HCC); Other specified symptoms and signs involving the circulatory and respiratory systems Discharge Disposition: Discharge to home or self care 12/26/2024 Telephone [facility] [place] [facility] ([facility]) - [facility] Minimally Invasive Surgery [address] [facility] 12th [address], [place] [address] Kiara Reeder RN 12/23/2024 Telephone [facility] ([facility]) - [facility] Minimally Invasive Surgery [address] [facility] [address]th [address], [place] [address] Jorge Manning MD Med Management 12/16/2024 Orders Only [facility] Medical [facility] Vascular at [address] [place] [phone] Katarzyna Pereira MD Peripheral arterial occlusive disease (CMS/HCC) (HCC) (Primary Dx); Other specified symptoms and signs involving the circulatory and respiratory systems 12/13/2024 9:00 AM ESCROW CLERK Office Visit [facility] Medical Group Cardiology [address] [place] [phone] Ragini Velasco MD Coronary artery disease of [place] artery of [place] heart with stable angina pectoris (CMS/HCC) (Primary Dx); Primary hypertension; Chronic anticoagulation; Peripheral arterial occlusive disease (CMS/HCC) (HCC); Preop cardiovascular exam 12/11/2024 7:53 AM ESCROW CLERK - 12/11/2024 11:59 PM ESCROW CLERK Hospital Encounter [facility] Radiology [facility]) [address] [place] [address] Discharge Disposition: Discharge to home or self care 12/11/2024 7:53 AM ESCROW CLERK - 12/11/2024 11:59 PM ESCROW CLERK Hospital Encounter [facility] Radiology [facility]) [address] [place] [address] Coronary artery disease of [place] artery of [place] heart with stable angina pectoris (CMS/HCC) Discharge Disposition: Discharge to home or self care 12/11/2024 7:52 AM ESCROW CLERK - 12/11/2024 11:59 PM ESCROW CLERK Hospital Encounter [facility] Radiology [facility] [address] [place] [address] Discharge Disposition: Discharge to home or self care 12/11/2024 7:51 AM ESCROW CLERK - 12/11/2024 11:59 PM ESCROW CLERK Hospital Encounter [facility] Radiology [facility] [address] [place] [address] Coronary artery disease of [place] artery of [place] heart with stable angina pectoris (CMS/HCC) Discharge Disposition: Discharge to home or self care 12/10/2024 Telephone [facility] Medical [facility] Cardiology [address] [place] [address] [place] [phone] Ragini Velasco MD 12/05/2024 Telephone [facility] Home Care Services [address] [place] [address] Unknown, [facility] 11/15/2024 Telephone [facility] Medical [facility] Cardiology [address] [place] [phone] Ragini Velasco MD 11/14/2024 8:15 AM ESCROW CLERK Ancillary Procedure [facility] Medical [facility] Cardiology [address] [place] [address] [place] [phone] Coronary artery disease of [place] artery of [place] heart with stable angina pectoris (CMS/HCC); Chest pressure 11/01/2024 8:15 AM ESCROW CLERK Office Visit [facility] Cardiology [address] [place] [address] [place] [phone] Ragini Velasco MD Coronary artery disease of [place] artery of [place] heart with stable angina pectoris (CMS/HCC) (Primary Dx); Peripheral arterial occlusive disease (CMS/HCC) (HCC); Pulmonary hypertension (HCC); Bilateral carotid artery stenosis; Hyperlipidemia LDL goal <70; Primary hypertension; Chest pressure 10/18/2024 Telephone [facility] Advanced [facility] ([facility]) - 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 Active albuterol HFA (PROVENTIL HFA,VENTOLIN HFA,PROAIR HFA) 90 mcg/actuation inhalerIndication s:Chronic Obstructive Pulmonary Disease Inhale 2 puffs every 6 (six) hours as needed for wheezing Active Stiolto Respimat 2.5-2.5 mcg/actuation inhalerIndication s:Bronchospasm Prevention with COPD Inhale 2 puffs every morning 022 Active folic acid (FOLVITE) 1 mg tabletIndications :For supplement Take 1 tablet (1,000 mcg total) by mouth every morning 023 Active zoledronic acid 4 mg recon solnIndications:b ones Infuse 1 Dose into a venous catheter once Yearly - last October 2024 Active ondansetron ODT (ZOFRAN-ODT) 4 mg disintegrating tabletIndications :Prevention of Post-Operative Nausea and Vomiting Take 1 tablet (4 mg total) by mouth every 8 (eight) hours as needed for nausea or vomiting 20 tablet 024 Active carvediloL (COREG) 25 mg tabletIndications :hypertension Take 1 tablet (25 mg total) by mouth 2 (two) times a day with meals Active felodipine (PLENDIL) 10 mg 24 hr tabletIndications :hypertension Take 1 tablet (10 mg total) by mouth every morning Active methenamine (HIPREX) 1 gram tabletIndications :Prophylaxis, Medical,UTI prevention Take 1 tablet (1,000 mg total) by mouth 2 (two) times a day Active clopidogreL (PLAVIX) 75 mg tabletIndications :DVT L leg and lung, heart stent Take 1 tablet (75 mg total) by mouth every morning 90 tablet 3 Active warfarin (COUMADIN) 3 mg tabletIndications :Venous Thrombosis Take 1 tablet (3 mg total) by mouth every evening Active rosuvastatin (CRESTOR) 40 mg tablet Take 1 tablet by mouth once daily 90 tablet 2 Active Additional Information Patient taking differently:40 mg oralEvery morning, Indications: hyperlipidemia, Informant: Self, Reported on 12/31/2024 lansoprazole (PREVACID) 15 mg capsuleIndication s:GERD Take 1 capsule (15 mg total) by mouth daily as needed Active isosorbide mononitrate ER (IMDUR) 30 mg 24 hr tabletIndications :Coronary artery disease of [place] artery of [place] heart with stable angina pectoris (HCC) Take 1 tablet (30 mg total) by mouth daily 30 tablet 11 2024 Active Additional Information Patient taking differently:30 mg oralEvery morning, Indications: prevention of anginal pain in coronary artery disease, Informant: Self, Reported on 12/31/2024 nitroglycerin (NITROSTAT) 0.[address] 1 tablet (0.4 mg total) under the tongue every 5 (five) minutes as needed for chest pain (May repeat every 5 min up to 3 doses in 15 min.) 25 tablet 11 Active Additional Information Patient taking differently:0.4 mg sublingual Every 5 min PRN, chest pain, May repeat every 5 min up to 3 doses in 15 min.,Indications: acute episode of anginal pain, Informant: Self, Reported on 12/31/2024 ranolazine ER (RANEXA) 500 mg 12 hr tabletIndications :Coronary artery disease of [place] artery of [place] heart with stable angina pectoris (HCC) Take 1 tablet by mouth twice daily 180 tablet 3 Active Additional Information Patient taking differently: 500 mg oral 2 times daily, Indications: prevention of anginal pain in coronary artery disease, Informant: Self, Reported on 12/31/2024 acetaminophen (TYLENOL) 500 mg tabletIndications :Pain Take 2 tablets (1,000 mg total) by mouth every 6 (six) hours as needed for pain Active calcium carbonate (TUMS) 500 mg (200 mg elemental calcium) chewable tabletIndications :Heartburn Take 2 tablet/chew tab (1,000 mg total) by mouth daily as needed for indigestion or heartburn Active cholecalciferol (VITAMIN D-3) 2000 unit tabletIndications :For supplement Take 1 tablet (2,000 Units total) by mouth every morning 2024 Discontinued(T herapy completed) acetaminophen (TYLENOL) 325 mg tablet Take 2 tablets (650 mg total) by mouth every 6 (six) hours as needed for pain Use first for management of pain 024 2024 Discontinued(A lternate therapy) calcium carb,cit-mag cit,ox-D3 300 mg-150 mg- 400 unit tablet Take by mouth 2024 Discontinued(T herapy completed) ranolazine ER (RANEXA) 500 mg 12 hr tabletIndications :Coronary artery disease of [place] artery of [place] heart with stable angina pectoris (HCC) Take 1 tablet by mouth twice daily 180 tablet 024 2024 Discontinued Active Problems Problem Noted Date Diagnosed Date [...] therapy Assessment & Plan (12/21/2023 1:27 PM ESCROW CLERK): Continue risk factor modifications and continue annual [...] surveillance. Assessment & Plan (12/27/2022 8:50 AM ESCROW CLERK): Impression: Patient has a 3.3 cm infrarenal abdominal aortic aneurysm seen on a CT abdomen pelvis in September 2022. She remains asymptomatic. Plan: We will continue to monitor with an abdominal duplex in September. Chronic venous insufficiency 12/27/2022 Atherosclerosis of [place] ar teries of extremities with intermittent claudication, bilateral legs 12/27/2022 Assessment & Plan (06/20/2024 12:12 PM CDT): Patent fem-fem bypass graft per current duplex. Patient denies any claudication symptoms. Follow up in 6 months for routine surveillance with a fem-fem duplex continue aspirin Plavix and statin therapy. 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 Sheldon in 2014. Patient denies any worsening symptoms of claudication, ischemic rest pain or ulcerations to her lower extremity. Plan: Patient to follow-up with an arterial duplex during her postop venous duplex scans. History of DVT (deep vein thrombosis) 11/29/2022 Assessment & Plan (11/29/2022 10:06 AM ESCROW CLERK): Impression: Patient has a history of a [...] 05/19/2023. Assessment & Plan (12/27/2022 8:59 AM ESCROW CLERK): Impression: Patient continues to complain of pain [...] procedure. Assessment & Plan (11/29/2022 10:00 AM ESCROW CLERK): Impression: Patient complains of pain to left [...] needed. Assessment & Plan (12/27/2022 8:48 AM ESCROW CLERK): Impression: Patient has mild bilateral internal carotid arteries. She remains asymptomatic. Plan: Patient has mild carotid stenosis seen on duplex. No longer require surveillance. Follow up as needed. Encourage patient to notify the office or present to the ED if she experiences stroke-like symptoms. Patient voices understanding. Assessment & Plan (11/29/2022 10:30 AM ESCROW CLERK): Impression: Patient has a history of bilateral carotid artery stenosis being followed by her secretary receptionist. Patient requesting the office to monitor. Patient [...] artery disease of n ative artery of [place] heart with stable angina pectoris 10/01/2015 Overview (02/17/2017): Coronary artery disease Preoperative state 02/20/2015 Overview (02/17/2017): Pre-operative cardiovascular examination Hypertension 02/20/2015 Overview (02/17/2017): Hypertension Assessment & Plan (06/21/2023 11:15 AM CDT): Stable continue lisinopril 10 mg. Assessment & Plan (12/27/2022 9:05 AM ESCROW CLERK): Impression: Chronic hypertension. Plan: Continue Coreg and lisinopril. Assessment & Plan (11/29/2022 10:32 AM ESCROW CLERK): Impression: Chronic hypertension, controlled with Coreg and [...] Bilateral carotid bruits Deep vein thrombosis (DVT) ([facility]) 02/20/2015 Overview (02/17/2017): DVT (deep venous thrombosis) History of anticoagulant therapy 02/20/2015 Overview (02/17/2017): Chronic anticoagulation Retroperitoneal fibrosis 02/20/2015 Overview (02/17/2017): Retroperitoneal fibrosis Leukocytosis 08/19/2014 Exomphalos 07/04/2012 Allergic rhinitis 04/24/2012 Esophageal reflux 04/24/2012 Resolved Problems Problem Noted Date Diagnosed Date Resolved Date Atherosclerosis of aorta ([facility]) 12/26/2011 12/27/2022 Immunizations Immunization Administration Dates Next Due Influenza, Quadrivalent, Eclia l Culture-based MDCK, Antibiotic Free, Intramuscular 08/13/2019 [...] you have a drink containing alcohol? Never 12/31/2024 Q2: How many drinks containi ng alcohol do you have on a typical day when you are drinking? Patient does not drink Q3: How often do you have si x or more drinks on one occasion? Never 12/31/2024 Personal Safety Answer Date Recorded Have you ever been in or are you currently in a harmful physical or emotional relationship or is someone making you feel afraid or unsafe? Denies 12/31/2024 Comments No Sex and Gender Information Value Date Recorded Sex Assigned at Not on file Legal Sex Female 2:59 AM ESCROW CLERK Gender Identity Not on file Sexual Orientation Not on file Last Filed Vital Signs Vital Sign Reading Time Taken Comments Blood Pressure 133/70 12/31/2024 1:22 PM ESCROW CLERK Pulse 71 12/31/2024 1:20 PM ESCROW CLERK Temperature 37.1 C (98.7 F) 06/28/2024 9:02 AM CDT Respiratory Rate 18 12/31/2024 1:20 PM ESCROW CLERK Oxygen Saturation 98% 12/31/2024 1:20 PM ESCROW CLERK Inhaled Oxygen Concentration - - Weight 73.4 kg (161 lb 13.1 oz) 12/31/2024 5:14 PM ESCROW CLERK Height 157.5 cm (5' 2 ) 12/31/2024 1:20 PM ESCROW CLERK Body Mass Index 29.6 12/31/2024 1:20 PM ESCROW CLERK Plan of Treatment Upcoming Encounters Date Type Department Care Team (Late st Contact Info) Description 12/31/2024 11:59 PM ESCROW CLERK Anesthesia Event [facility] Operating Room [address] [place] [address] Haley Rodriguez, [employer] FIN[employer]ER [id number] [facility] [address] [place] [address] 04/29/2025 Hospital Encounter [facility] Operating Room [address] [place] [address] Jorge Manning MD [address] [place] [address] Scheduled Procedures Name Priority Associated Diagnoses Date/Ti me XI REPAIR INCISIONAL HERNIA - LAPAROSCOPIC ROBOTIC ASSISTED Recurrent incisional hernia with incarceration XI ROBOTIC ABDOMINAL WALL RECONSTRUCTION Recurrent incisional hernia with incarceration Medical Devices Implanted Type Area Hockey Scout Device Identifier Shelf Expiration Date Model / Serial / Lot Graft Graft Femoral Description:2014 Stent Implanted:Qty: 1 Stent Coronary Artery Description:2014 Procedures Procedure Name Priority Date/Time Associated Diagnosis Comments EGFR Routine 12/31/2024 2:50 PM ESCROW CLERK Preoperative testing DIFFERENTIAL AUTO Routine 12/31/2024 2:5 0 PM ESCROW CLERK Preoperative testing COMPREHENSIVE METABOLIC PANEL Routine 12/31/2024 2:50 PM ESCROW CLERK Preoperative testing CBC WITH AUTO DIFFERENTIAL Routine 12/31/2024 2:50 PM ESCROW CLERK Preoperative testing TYPE AND SCREEN 14 DAY Routine 12/31/2024 2:50 PM ESCROW CLERK Preoperative testing US PHIL Schedule Routine, Read Routine (OP Routine) 12/30/2024 11:41 AM ESCROW CLERK Peripheral arterial occlusive disease (CMS/HCC) (HCC) Other specified symptoms and signs involving the circulatory and respiratory systems US ARTERIAL DUPLEX LOWER EXTREMITY BILATERAL Routine 12/30/2024 10:12 AM ESCROW CLERK Peripheral arterial occlusive disease (CMS/HCC) (HCC) Other specified symptoms and signs involving the circulatory and respiratory systems POCT LIPID PANEL Routine 12/13/2024 9:08 AM ESCROW CLERK Coronary artery disease of [place] artery of [place] heart with stable angina pectoris (CMS/HCC) PET/CT MYOCARDIAL METABOLIC EVALUATION FOR VIABILITY Schedule Routine, Read Routine (OP Routine) 12/11/2024 12:47 PM ESCROW CLERK Coronary artery disease of [place] artery of [place] heart with stable angina pectoris (CMS/HCC) NM MPI SPECT SINGLE STUDY (REST) VIABILITY Schedule Routine, Read Routine (OP Routine) 12/11/2024 9:27 AM ESCROW CLERK Coronary artery disease of [place] artery of [place] heart with stable angina pectoris (CMS/HCC) NM MPI SPECT (REST AND/OR STRESS) MULTIPLE STUDIES Schedule Routine, Read Routine (OP Routine) 11/14/2024 10:14 AM ESCROW CLERK Coronary artery disease of [place] artery of [place] heart with stable angina pectoris ([facility]/HCC) Chest pressure CT VIRTUAL COLONOSCOPY DIAGNOSTIC W CONTRAST Routine 01/30/2017 2:38 PM CDT from Last 3 Months or Most Recently Relevant to Health Maintenance Results * TYPE AND SCREEN 14 DAY (12/31/2024 2:50 PM ESCROW CLERK) ABO Rh O Positive Fabiano, indirect Negative [facility] Blood 12/31/2024 2:50 PM ESCROW CLERK 12/31/2024 3:25 PM ESCROW CLERK Narrative [facility] - 12/31/2024 4:13 PM ESCROW CLERK Has the patient had Daratumumab or Isatuximab in the past 6 months?->No Is this test being ordered in advance for a procedure?->Yes Expected date of procedure:->01/02/25 Has the patient been transfused in the past 3 months?->No Has the patient been in the past 3 months?->No Corey Stanley NP LAB BLOOD BANK TEST ORDE TASNEEM Final Result [facility] [place] [address] * (ABNORMAL) eGFR (12/31/2024 2:50 PM ESCROW CLERK) eGFR 36(L) >=60 mL/min/1. 73 m2 Comment: Interpretive Data Reference Interval Normal >/= 90 mL/min/1.73m2 Mildly decreased* 60 - 89 mL/min/1.73m2 Mildly to moderately decreased 45 - 59 mL/min/1.73m2 Moderately to severely decreased 30 - 44 mL/min/1.73m2 Severely decreased 15 - 29 mL/min/1.73m2 Kidney Failure < 15 mL/min/1.73m2 *Relative to young adult level Estimated glomerular filtration rate is determined by the 2020 CKD-EPI equation recommended by the National Kidney Foundation (A Unifying Approach to GFR Estimation: Recommendations of the NKF-ASK Task Force on Reassessing the Inclusion of Race in Diagnosing Kidney Disease, JASN 2020). The CKD-EPI equation should not be used for patients with unstable renal function and has not been validated in children and those over 70. Current interpretive data was last reviewed 2021. Blood 12/31/2024 2:50 PM ESCROW CLERK 12/31/2024 3:25 PM ESCROW CLERK us Corey Stanley NP LAB BLOOD ORDERABLES Fin al Result [facility] [place] [address] * (ABNORMAL) Differential, auto (12/31/2024 2:50 PM ESCROW CLERK) Neutrophil abs 9.4(H) 1.5 - 6.5 K/cumm Imm gran abs 0.1 0.0 - 0.1 K/cumm [facility] Lymphocyte abs 4.3(H) 0.8 - 3.3 K/cumm [facility] Monocyte abs 1.4(H) 0.2 - 0.8 K/cumm [facility] Eosinophil abs 0.0 0.0 - 0.5 K/cumm [facility] Basophil abs 0.0 0.0 - 0.1 K/cumm [facility] Neutrophil pct 62.0 % [facility] Comment: Interpretive Data Percent cell count reference ranges are not reported, since discordance with absolute values may lead to misinterpretation of CBC data. Current Interpretive Data was last revised on 2018. Imm gran pct 0.5 % [facility] Comment: Interpretive Data Percent cell count reference ranges are not reported, since discordance with absolute values may lead to misinterpretation of CBC data. Current Interpretive Data was last revised on 2018. Lymphocyte pct 28.4 % [facility] Comment: Interpretive Data Percent cell count reference ranges are not reported, since discordance with absolute values may lead to misinterpretation of CBC data. Current Interpretive Data was last revised on 2018. Monocyte pct 8.9 % [facility] Comment: Interpretive Data Percent cell count reference ranges are not reported, since discordance with absolute values may lead to misinterpretation of CBC data. Current Interpretive Data was last revised on 2018. Eosinophil pct 0.1 % [facility] Comment: Interpretive Data Percent cell count reference ranges are not reported, since discordance with absolute values may lead to misinterpretation of CBC data. Current Interpretive Data was last revised on 2018. Basophil pct 0.1 % [facility] Comment: Interpretive Data Percent cell count reference ranges are not reported, since discordance with absolute values may lead to misinterpretation of CBC data. Current Interpretive Data was last revised on 2018. Blood 12/31/2024 2:50 PM ESCROW CLERK 12/31/2024 3:26 PM ESCROW CLERK Corey Stanley NP LAB BLOOD ORDERABLES Fin al Result [facility] [place] [address] * (ABNORMAL) CBC with auto differential (12/31/2024 2:50 PM ESCROW CLERK) WBC 15.1(H) 3.8 - 9.9 K/cumm Hgb 10.1(L) 11.9 - 15.5 g/dL [facility] Hct 31.4(L) 35.6 - 45.5 % [facility] Plt 355 150 - 400 K/cumm [facility] MPV 9.9 9.1 - 12.3 fL [facility] RBC 3.30(L) 3.90 - 5.20 M/cumm [facility] MCV 95.2 81.3 - 96.4 fL [facility] MCH 30.6 27.1 - 33.3 pg [facility] MCHC 32.2(L) 32.3 - 35.7 g/dL [facility] RDW CV 20.1(H) 11.1 - 14.9 % [facility] RDW SD 69.9(H) 35.7 - 48.1 fL [facility] NRBC abs 0.00 0.00 - 0.01 K/cumm [facility] Blood 12/31/2024 2:50 PM ESCROW CLERK 12/31/2024 3:26 PM ESCROW CLERK us Corey Stanley NP LAB BLOOD ORDERABLES Fin al Result [facility] [place] [address] * (ABNORMAL) Comprehensive metabolic panel (12/31/2024 2:50 PM ESCROW CLERK) Sodium 139 135 - 145 mmol/L Potassium, pl 5.1(H) 3.3 - 4.9 mmol/L [facility] Chloride 107 97 - 110 mmol/L [facility] CO2 21(L) 22 - 32 mmol/L [facility] Anion gap 11 2 - 15 mmol/L [facility] BUN 23 6 - 25 mg/dL [facility] Creatinine 1.56(H) 0.60 - 1.10 mg/dL [facility] Glucose 115 70 - 199 mg/dL [facility] Comment: Interpretive Data Fasting glucose >/= 126 mg/dl is diagnostic for diabetes. Fasting is defined as no caloric intake for at least 8 hours. Fasting glucose between 100 mg/dl to 125 mg/dl is diagnostic of prediabetes. In a patient with classic symptoms of hyperglycemia or hyperglycemic crisis, a random glucose >/= 200 mg/dl is diagnostic for diabetes. In the absence of unequivocal hyperglycemia, results should be confirmed by repeat testing. The classification and Diagnosis of Diabetes Diabetes Care 202; 46: S19-S40. Current interpretive data was last revised 2022. Calcium 9.3 8.5 - 10.3 mg/dL [facility] Bilirubin, total 0.3 0.1 - 1.2 mg/dL [facility] Protein, pl 7.9 6.5 - 8.5 g/dL [facility] Albumin 4.0 3.5 - 5.0 g/dL [facility] Alk phos 99 40 - 130 Units/L [facility] ALT 16 7 - 45 Units/L [facility] AST 18 10 - 45 Units/L [facility] Blood 12/31/2024 2:50 PM ESCROW CLERK 12/31/2024 3:25 PM ESCROW CLERK us Corey Stanley NP LAB BLOOD ORDERABLES Fin al Result [facility] [place] [address] * US PHIL (12/30/2024 11:41 AM ESCROW CLERK) Anatomical Region Laterality Modality Vascular N/A Ultrasound 12/30/2024 8:29 AM ESCROW CLERK Narrative 12/30/2024 4:06 PM ESCROW CLERK Lower Extremity Arterial Doppler Report Patient Name: GENARO GAYLE [place] : 1955 Study Date: 12/30/2024 8:29:00 AM Gender: F Animation Artist: Juan Zazueta RDMS, RVT Ref Provider: KATARZYNA PEREIRA Quality: Adequate Order Provider: KATARZYNA PEREIRA PROCEDURES: Arterial Report: Ankle - Brachial Index Doppler exam. INDICATIONS: Peripheral Vascular Disease, Unspecified and Atherosclerosis of [place] Arteries of Extremities with Intermittent Claudication, Bilateral Leg. HISTORY: s/p right to left fem-fem bypass graft in 2015. Risk Factors: Previous smoker (quit about 9 years ago), hypertension, hyperlipidemia, heart disease, lung disease. COMPARISONS: The previous exam was completed on 06-19-2024. MEASUREMENTS: Right Value Left Value Rt Brachial Pressure 161 mmHg Lt Brachial Pressure 158 mmHg Rt CLOTH REELER Pressure 180 mmHg Lt CLOTH REELER Pressure 176 mmHg Rt DPA Pressure 154 mmHg Lt DPA Pressure 162 mmHg Rt 1st Digit Pressure 136 mmHg Lt 1st Digit Pressure 153 mmHg Rt PT PHIL Resting 1.12 Lt PT PHIL Resting 1.09 Rt DP PHIL Resting 0.96 Lt DP PHIL Resting 1.01 Rt Digit/Arm Index 0.84 Lt Digit/Arm Index 0.95 FINDINGS: Right Leg: No evidence of hemodynamically significant arterial obstruction. Right Posterior Tibial Artery Analysis: The posterior tibial waveform is multiphasic. Right Anterior Tibial Artery Analysis: The anterior tibial waveform is multiphasic. Right Digits: Normal right digit pressure and waveform. Left Leg: No evidence of hemodynamically significant arterial obstruction. Left Posterior Tibial Artery Analysis: The posterior tibial waveform is multiphasic. Left Anterior Tibial Artery Analysis: The anterior tibial waveform is multiphasic. Left Digits: Normal left digit pressure and waveform. - CONCLUSIONS: 1. Right ankle-brachial index of 1.12. 2. Left ankle-brachial index of 1.09. 3. Ankle-brachial index of 0.9-1.3 is within normal limits in the bilateral lower extremities. ATTESTATION: I have reviewed and interpreted the pertinent images and measurements of this study. I attest to the conclusions in the final report that is provided above. Electronically Signed By: Vick Pereira MD 12/30/2024 3:09:59 PM ESCROW CLERK Procedure Note Vick Pereira MD - 12/30/2024 Lower Extremity Arterial Doppler Report Patient Name: GENARO GAYLE MI : 1955 Study Date: 12/30/2024 8:29:00 AM Gender: F Animation Artist: Juan Zazueta RDMS, RVT Ref Provider: KATARZYNA PEREIRA Quality: Adequate Order Provider: KATARZYNA PEREIRA PROCEDURES: Arterial Report: Ankle - Brachial Index Doppler exam. INDICATIONS: Peripheral Vascular Disease, Unspecified and Atherosclerosis of [place]ter[place] of Extremities with Intermittent Claudication, Bilateral Leg. HISTORY: s/p right to left fem-fem bypass graft in 2014. Risk Factors: Previous smoker (quit about 9 years ago), hypertension,hyperlipidemia, heart disease, lung disease. COMPARISONS: The previous exam was completed on 06-19-2024. MEASUREMENTS: Right Value Left Value Rt Brachial Pressure 161 mmHg Lt Brachial Pressure 158 mmHg Rt CLOTH REELER Pressure 180 mmHg Lt CLOTH REELER Pressure 176 mmHg Rt DPA Pressure 154 mmHg Lt DPA Pressure 162 mmHg Rt 1st Digit Pressure 136 mmHg Lt 1st Digit Pressure 153 mmHg Rt PT PHIL Resting 1.12 Lt PT PHIL Resting 1.09 Rt DP PHIL Resting 0.96 Lt DP PHIL Resting 1.01 Rt Digit/Arm Index 0.84 Lt Digit/Arm Index 0.95 FINDINGS: Right Leg: No evidence of hemodynamically significant arterial obstruction. Right Posterior Tibial Artery Analysis: The posterior tibial waveform is multiphasic. Right Anterior Tibial Artery Analysis: The anterior tibial waveform is multiphasic. Right Digits: Normal right digit pressure and waveform. Left Leg: No evidence of hemodynamically significant arterial obstruction. Left Posterior Tibial Artery Analysis: The posterior tibial waveform is multiphasic. Left Anterior Tibial Artery Analysis: The anterior tibial waveform is multiphasic. Left Digits: Normal left digit pressure and waveform. - CONCLUSIONS: 1. Right ankle-brachial index of 1.12. 2. Left ankle-brachial index of 1.09. 3. Ankle-brachial index of 0.9-1.3 is within normal limits in thebilateral lower extremities. ATTESTATION: I have reviewed and interpreted the pertinent images and measurements ofthis study. I attest to the conclusions in the final report that is provided above. Electronically Signed By: Vick Pereira MD 12/30/2024 3:09:59 PM ESCROW CLERK Katarzyna Pereira MD IMG US PROCEDURES Final Result * US Arterial Duplex Lower Extremity Bilateral (12/30/2024 10:12 AM ESCROW CLERK) Anatomical Region Laterality Modality Vascular Bilateral Ultrasound 12/30/2024 8:08 AM ESCROW CLERK Narrative 12/30/2024 4:07 PM ESCROW CLERK Lower Extremity Arterial Duplex Report Patient Name: GENARO GAYLE [place] : 1955 (69y 2m) Gender: F Study Date: 12/30/2024 08:08:32 AM Ht(Inch): Wt(Lb): BSA: Animation Artist: Juan Zazueta Provider: KATARZYNA PEREIRA Quality: Adequate Ref Provider: KATARZYNA PEREIRA PROCEDURES: Arterial Report: A non-invasive vascular imaging study of the bilateral lower extremity arteries and bypass grafts was performed using B-mode ultrasound, color flow, and spectral Doppler. INDICATIONS: Atherosclerosis of [place] arteries of extremities with intermittent claudication, bilateral and Encounter for surgical aftercare following surgery on the circulatory system. HISTORY: s/p right to left fem-fem bypass graft in 2015. Risk Factors: Hypertension, Hyperlipidemia, previous smoker (quit about 9 years ago), Heart disease, Lung disease. COMPARISONS: No change compared to prior study. The previous exam was completed on 06-19-2024. MEASUREMENTS: Right Value Left Value Rt DIRECTOR ENTERPRISE SALES Prx PSV 221.00 cm/sec Lt DIRECTOR ENTERPRISE [employer]ES Dst PSV 197.00 cm/sec Lt Profunda Prx PSV 118.00 cm/sec Lt SFA Prx PSV 168.00 cm/sec GRAFTS: Right Value Left Value Location Rt to Lt Fem-Fem Location RT to LT Fem-Fem Rt Anast Prx PSV 373.00 cm/sec Lt BPG Prx PSV 131.00 cm/sec Lt BPG Mid PSV 123.00 cm/sec Lt BPG Dst PSV 124.00 cm/sec Lt Anast Dst PSV 147.00 cm/sec FINDINGS: Bypass Graft 1: Patent lower extremity bypass graft with no evidence of stenosis. CONCLUSION: 1. The arterial bypass graft is patent with no evidence of stenosis. ATTESTATION: I have reviewed and interpreted the pertinent images and measurements of this study. I attest to the conclusions in the final report that is provided above. Electronically Signed By: Vick Pereira MD 12/30/2024 3:12:44 PM ESCROW CLERK Procedure Note Vick Pereira MD - 12/30/2024 Lower Extremity Arterial Duplex Report Patient Name: GENARO GAYLE [place] : 1955 (69y 2m) Gender: F Study Date: 12/30/2024 08:08:32 AM Ht(Inch): Wt(Lb): BSA: Animation Artist: Juan Zazueta Provider: KATARZYNA PEREIRA Quality: Adequate Ref Provider: KATARZYNA PEREIRA PROCEDURES: Arterial Report: A non-invasive vascular imaging study of the bilaterallower extremity arteries and bypass grafts was performed using B-mode ultrasound, colorflow, and spectral Doppler. INDICATIONS: Atherosclerosis of [place] arteries of extremities with intermittentclaudication, bilateral and Encounter for surgical aftercare following surgery on thecirculatory system. HISTORY: s/p right to left fem-fem bypass graft in 2014. Risk Factors: Hypertension, Hyperlipidemia, previous smoker (quit about 9years ago), Heart disease, Lung disease. COMPARISONS: No change compared to prior study. The previous exam was completed 06-19-2024. MEASUREMENTS: Right Value Left Value Rt [employer] EN[employer] Prx PSV 221.00 cm/sec Lt [employer] EN[employer] Dst PSV 197.00 cm/sec Lt Profunda Prx PSV 118.00 cm/sec Lt SFA Prx PSV 168.00 cm/sec GRAFTS: Right Value Left Value Location Rt to Lt Fem-Fem Location RT to LT Fem-Fem Rt Anast Prx PSV 373.00 cm/sec Lt BPG Prx PSV 131.00 cm/sec Lt BPG Mid PSV 123.00 cm/sec Lt BPG Dst PSV 124.00 cm/sec Lt Anast Dst PSV 147.00 cm/sec FINDINGS: Bypass Graft 1: Patent lower extremity bypass graft with no evidence ofstenosis. CONCLUSION: 1. The arterial bypass graft is patent with no evidence of stenosis. ATTESTATION: I have reviewed and interpreted the pertinent images and measurements ofthis study. I attest to the conclusions in the final report that is provided above. Electronically Signed By: Vick Pereira MD 12/30/2024 3:12:44 PM ESCROW CLERK Katarzyna Pereira MD IMG US PROCEDURES Final Result * POCT lipid panel (12/13/2024 9:08 AM ESCROW CLERK) Cholesterol, POC 114 mg/dL HDL, POC 46 mg/dL Triglycerides, POC 136 mg/dL LDL Cholesterol POC 41 mg/dL Chol/HDL Ratio, POC 0.9 Non-HDL Cholesterol, POC 69 mg/dL Cholesterol Total, POC 114 mg/dL Capillary blood 12/13/2024 9 :08 AM ESCROW CLERK Ragini Velasco MD POINT OF CARE TEST ORDERA BLES Final Result * PET/CT Myocardial Metabolic Evaluation for Viability (12/11/2024 12:47 PM ESCROW CLERK) Anatomical Region Laterality Modality N/A Positron Emissio n Tomography (PET) 12/11/2024 5:36 PM ESCROW CLERK Impressions 12/11/2024 5:39 PM ESCROW CLERK 1. Viable myocardium in the small and [...] Jannet English M.D. Narrative 12/11/2024 5:39 PM ESCROW CLERK EXAMINATION: MYOCARDIAL PET/CT (METABOLISM) DATE OF STUDY: 12/11/2024 SCANNER: [facility] [employer] RADIOPHARMACEUTICAL: 10.61 mCi F-18 Fluorodeoxyglucose (FDG) i.v., [...] minutes. The study was interpreted on the [employer] workstation. At the conclusion of the study, [...] PET/CT (METABOLISM) DATE OF STUDY: 12/11/2024 SCANNER: [facility] RADIOPHARMACEUTICAL: 10.61 mCi F-18 Fluorodeoxyglucose (FDG) [...] minutes. The study was interpreted on the [employer] workstation. At the conclusion of the study, [...] Study (Rest) for Viability (12/11/2024 9:27 AM ESCROW CLERK) Anatomical Region Laterality Modality Body N/A Nuclear Medicine 12/11/2024 5:30 PM ESCROW CLERK Impressions 12/11/2024 5:36 PM ESCROW CLERK 1. Small size and mildly severe decreased rest perfusion defect of anterior and anteroseptal wall. 2. Normal left ventricular size and systolic function. Drs. Bojorquez and Fermin also participated in the interpretation of this examination. Please refer to the same day FDG PET for viability accession #[id number] for more information. Dictated by: Anita Quinones M.D. The radiology attending physician has personally reviewed this study, and had reviewed and/or edited this written report and agrees with it. Electronically signed by: Jannet English M.D. Narrative 12/11/2024 5:36 PM ESCROW CLERK EXAMINATION: MYOCARDIAL IMAGING (REST/SPECT-CT) DATE OF STUDY: [...] same day FDG PET for viability accession #[id number] for more information. Dictated by: Anita Quinones M.D. The radiology attending physician has personally reviewed this study, and had reviewed and/or edited this written report and agrees with it. Electronically signed by: Jannet English M.D. Ragini Velasco MD [facility] NM PROCEDURES Final R esult * NM MPI SPECT (Rest and/or Stress) Multiple Studies (11/14/2024 10:14 AM ESCROW CLERK) Anatomical Region Laterality Modality Body N/A Nuclear Medicine 11/14/2024 8:26 AM ESCROW CLERK Narrative 11/14/2024 12:45 PM ESCROW CLERK [facility] [address] [facility] [address], [place] [address] [address], [place] [address] P:[phone] P:[phone] MPI Imaging Report Patient Name: GENARO GAYLE [place] : 1955 Study Date: 11/14/2024 8:26:53 AM Gender: F Tech: [facility] Location: [facility] Provider: RAGINI VELASCO Height(Cm): 157.5 BSA: [...] Palpitations. PVD, I25.118 Atherosclerotic heart disease of [place] coronary artery with other forms of angina [...] By: Umang Galicia MD 11/14/2024 11:54:51 AM ESCROW CLERK Electronically Signed By: Ragini Velasco MD 11/14/2024 12:45:24 PM ESCROW CLERK Procedure Note Ragini Velasco MD - 11/14/2024 [facility] [address] [address], [place] [address] [id number], [place] [address] P:[phone] P:[phone] MPI Imaging Report Patient Name: GENARO GAYLE MI : 1955 Study Date: 11/14/2024 8:26:53 AM Gender: F Tech: [facility] Location: [facility] Provider: RAGINI VELASCO Height(Cm): 157.5 BSA: [...] Smoker,Palpitations. PVD, I25.118 Atherosclerotic heart disease of [place] coronary artery with other formsof angina pectoris, [...] By: Umang Galicia MD 11/14/2024 11:54:51 AM ESCROW CLERK Electronically Signed By: Ragini Velasco MD 11/14/2024 12:45:24 PM ESCROW CLERK us Ragini Velasco MD IMG NM PROCEDURES Final R esult * CT Virtual Colonoscopy Diagnostic W Contrast (01/30/2017 2:38 PM CDT) Anatomical Region Laterality Modality Body N/A Computed Tomogra phy 01/30/2017 2:38 PM CDT Narrative 01/30/2017 2:38 PM CDT GRAZYNA SHAW M.D. PUNEET ALVAREZ M.D. FINAL REPORT The radiology attending physician has personally reviewed this study, and has reviewed and/or edited this written report and agrees with it. ACC# Date Time Exam [id number] Jan 30, 2017 09:38:[id number] Colonography Screen ACC# Date Time Exam [id number] Jan 30, 2017 09:38:[id number] Colonography Screen EXAMINATION: CT colonography without [...] SHAW M.D. on Jan 30 2017 5:45P [id number] Procedure Note Miscellaneous, Notinfile / Provider, MD Alicia - 04/04/2017 Aleksandar BOYER M.D. FINAL REPORT The radiology attending physician has personally reviewed this study, and has reviewed and/or edited this written report and agrees with it. ACC# Date Time Exam [id number] Jan 30, 2017 09:38:[id number] Colonography Screen ACC# Date Time Exam [id number] Jan 30, 2017 09:38:[address] Colonography Screen EXAMINATION: CT colonography without [...] SHAW M.D. 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
--- OUTSIDE RECORDS SUMMARY | 2025-01-13 01:40 | XMS_ITS | Encounter Summary ---
Author Organization [facility] Address [address] [place] [address] Phone Care Team Providers Care Casino Attendant Name Role Phone Ricardo Freeman Primary Care Provider [phone] Reason for Visit * Reason Onset Date Comments Medical Question/Miscellaneous 12/31/2024 Encounter Details Date Type Department Care Team (Late st Contact Info) Description 12/31/2024 Telephone [facility] - [facility] Minimally Invasive Surgery 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 Never 12/31/2024 1:35 PM Althea Garcia RN Q2: How many drinks containing alcohol do you have on a typical day when you are drinking? Patient does not drink 12/31/2024 1:35 PM Althea Garcia RN Q3: How often do you have six or more drinks on one occasion? Never 12/31/2024 1:35 PM Althea Garcia RN documented as of this encounter Miscellaneous Notes * Telephone Encounter - Vick Pierre - 12/31/2024 2:52 PM CST Patient Query: Was an attempt to transfer to the assigned clinical staff or backline? Yes, No answer Reason for call?: Haley from [facility] calling to update us that they are still waiting for a response from Dr Velasco's office regarding a Angiogram (Read message back to caller and ask them if there is anything else they'd like to add to the message) Who is the caller: Haley What is the best number for them to contact for a call back: [phone] E BALANCER documented in this encounter Plan of Treatment Upcoming Encounters Date Type Department Care Team (Late st Contact Info) Description 12/31/2024 11:59 PM SCALE BALANCER Anesthesia Event [facility] Operating Room [address] [place] [address] Haley Rodriguez, STEELER [address] [address] 04/29/2025 Hospital Encounter [facility] Operating Room [address] [place] [phone] Jorge Manning MD [address] [place] [address] Scheduled Procedures Name Priority Associated Diagnoses Date/Ti me XI REPAIR INCISIONAL HERNIA - LAPAROSCOPIC ROBOTIC ASSISTED Recurrent incisional hernia with incarceration XI ROBOTIC ABDOMINAL WALL RECONSTRUCTION Recurrent incisional hernia with incarceration documented as of this encounter Visit Diagnoses Not on filedocumented in this encounter Additional Health Concerns Infection Onset Date Last Indicated Resolved Time 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
--- OUTSIDE RECORDS SUMMARY | 2025-01-13 01:40 | XMS_ITS | Clinical Summary ---
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 before 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 Active albuterol HFA (PROVENTIL HFA,VENTOLIN [...] needed for nausea or vomiting 20 tablet Active carvediloL (COREG) 25 mg tabletIndications :hypertension [...] 24 hr tabletIndications :Coronary artery disease of [place] artery of [place] heart with stable angina pectoris (HCC) Take [...] 12 hr tabletIndications :Coronary artery disease of [place] artery of [place] heart with stable angina pectoris (HCC) Take 1 tablet by mouth twice daily 180 tablet 3 025 Active Additional Information Patient taking differently: 500 [...] 12 hr tabletIndications :Coronary artery disease of [place] artery of [place] heart with stable angina pectoris (HCC) Take [...] therapy Assessment & Plan (12/21/2023 1:27 PM PUBLIC INFORMATION RELATIONS MANAGER): Continue risk factor modifications and continue annual [...] surveillance. Assessment & Plan (12/27/2022 8:50 AM PUBLIC INFORMATION RELATIONS MANAGER): Impression: Patient has a 3.3 cm infrarenal abdominal aortic aneurysm seen on a CT abdomen pelvis in September 2022. She remains asymptomatic. Plan: We will continue to monitor with an abdominal duplex in September. 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 Patient denies any claudication symptoms. Follow up in 6 months for routine surveillance with a fem-fem duplex continue aspirin Plavix and statin therapy. 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 Sheldon in 2014. Patient denies any worsening symptoms of claudication, ischemic rest pain or ulcerations to her lower extremity. Plan: Patient to follow-up with an arterial duplex during her postop venous duplex scans. History of DVT (deep vein thrombosis) 11/29/2022 Assessment & Plan (11/29/2022 10:06 AM PUBLIC INFORMATION RELATIONS MANAGER): Impression: Patient has a history of a [...] 05/19/2023. Assessment & Plan (12/27/2022 8:59 AM PUBLIC INFORMATION RELATIONS MANAGER): Impression: Patient continues to complain of pain [...] procedure. Assessment & Plan (11/29/2022 10:00 AM PUBLIC INFORMATION RELATIONS MANAGER): Impression: Patient complains of pain to left [...] needed. Assessment & Plan (12/27/2022 8:48 AM PUBLIC INFORMATION RELATIONS MANAGER): Impression: Patient has mild bilateral internal carotid arteries. She remains asymptomatic. Plan: Patient has mild carotid stenosis seen on duplex. No longer require surveillance. Follow up as needed. Encourage patient to notify the office or present to the ED if she experiences stroke-like symptoms. Patient voices understanding. Assessment & Plan (11/29/2022 10:30 AM PUBLIC INFORMATION RELATIONS MANAGER): Impression: Patient has a history of bilateral carotid artery stenosis being followed by her upfitter. Patient requesting the office to monitor. Patient [...] artery disease of n ative artery of quartz valley heart with stable angina pectoris 10/01/2015 Overview (02/17/2017): Coronary artery disease Preoperative state 02/20/2015 Overview (02/17/2017): Pre-operative cardiovascular examination Hypertension 02/20/2015 Overview (02/17/2017): Hypertension Assessment & Plan (06/21/2023 11:15 AM CDT): Stable continue lisinopril 10 mg. Assessment & Plan (12/27/2022 9:05 AM PUBLIC INFORMATION RELATIONS MANAGER): Impression: Chronic hypertension. Plan: Continue Coreg and lisinopril. Assessment & Plan (11/29/2022 10:32 AM PUBLIC INFORMATION RELATIONS MANAGER): Impression: Chronic hypertension, controlled with Coreg and [...] Date Type Department Care Team Description 01/01/2025 [facility] ([facility]) - [facility] Minimally Invasive Surgery [address]th Floor, [place] [id number] Kiara Reeder RN 12/31/2024 1:00 PM PUBLIC INFORMATION RELATIONS MANAGER Pre-Admission Testing [facility] for Preoperative Assessment and Planning [place] [facility] ([facility]) [address] [place] [id number] Preoperative testing (Primary Dx) 12/31/2024 Telephone [facility] ([facility]) - [facility] Minimally Invasive Surgery [address] [place] [address] 12th Floor, [place] [phone] Jorge Manning MD Medical Question/Miscellaneou s 12/31/2024 Telephone [facility] Medical [facility] Cardiology [address] [place] [address] Ragini Velasco MD cardiac clearance 12/30/2024 8:03 AM PUBLIC INFORMATION RELATIONS MANAGER - 12/30/2024 11:59 PM PUBLIC INFORMATION RELATIONS MANAGER Hospital Encounter [facility] [address] [place] [address] Peripheral arterial occlusive disease (CMS/HCC) (HCC); Other specified symptoms and signs involving the circulatory and respiratory systems Discharge Disposition: Discharge to home or self care 12/30/2024 8:00 AM PUBLIC INFORMATION RELATIONS MANAGER - 12/30/2024 11:59 PM PUBLIC INFORMATION RELATIONS MANAGER Hospital Encounter [facility] [address] [place] [address] Peripheral arterial occlusive disease (CMS/HCC) (HCC); Other specified symptoms and signs involving the circulatory and respiratory systems Discharge Disposition: Discharge to home or self care 12/26/[address] [facility] ([facility]) - [facility] Minimally Invasive Surgery [address] [place] [address] 12th Floor, [place] [phone] Kiara Reeder, ZAFAR 12/23/2024 Telephone [facility] ([facility]) - [facility] Minimally Invasive Surgery [address] 12th Floor, [place] [phone] Jorge Manning MD Med Management 12/16/2024 Orders Only [facility] Vascular at [address] [place] [address] Katarzyna Pereira MD Peripheral arterial occlusive disease (CMS/HCC) (HCC) (Primary Dx); Other specified symptoms and signs involving the circulatory and respiratory systems 12/13/2024 9:00 AM PUBLIC INFORMATION RELATIONS MANAGER Office Visit [facility] Medical Group Cardiology [address] [place] [address] Ragini Velasco MD Coronary artery disease of quartz [place] artery of quartz [place] heart with stable angina pectoris (CMS/HCC) (Primary Dx); Primary hypertension; Chronic anticoagulation; Peripheral arterial occlusive disease (CMS/HCC) (HCC); Preop cardiovascular exam 12/11/2024 7:53 AM PUBLIC INFORMATION RELATIONS MANAGER - 12/11/2024 11:59 PM PUBLIC INFORMATION RELATIONS MANAGER Hospital Encounter [facility] [address] [place] [address] Discharge Disposition: Discharge to home or self care 12/11/2024 7:53 AM PUBLIC INFORMATION RELATIONS MANAGER - 12/11/2024 11:59 PM PUBLIC INFORMATION RELATIONS MANAGER Hospital Encounter [facility] [address] [place] [address] Coronary artery disease of quartz [place] artery of quartz valley heart with stable angina pectoris (CMS/HCC) Discharge Disposition: Discharge to home or self care 12/11/2024 7:52 AM PUBLIC INFORMATION RELATIONS MANAGER - 12/11/2024 11:59 PM PUBLIC INFORMATION RELATIONS MANAGER Hospital Encounter [facility] [address] [place] [address] Discharge Disposition: Discharge to home or self care 12/11/2024 7:51 AM PUBLIC INFORMATION RELATIONS MANAGER - 12/11/2024 11:59 PM PUBLIC INFORMATION RELATIONS MANAGER Hospital Encounter [facility] [address] [place] [address] Coronary artery disease of quartz valley artery of quartz valley heart with stable angina pectoris (CMS/HCC) Discharge Disposition: Discharge to home or self care 12/10/2024 Telephone [facility] Medical Group Cardiology [address] [place] [address] Ragini Velasco MD 12/05/2024 Telephone [facility] Home Care Services [address] [place] [address] Unknown, [facility] 11/15/2024 Telephone [facility] Medical [facility] Cardiology [address] [place] [address] Ragini Velasco MD 11/14/2024 8:15 AM PUBLIC INFORMATION RELATIONS MANAGER Ancillary Procedure [facility] Cardiology [address] [place] [address] Coronary artery disease of quartz [place] artery of quartz [place] heart with stable angina pectoris (CMS/HCC); Chest pressure 11/01/2024 8:15 AM PUBLIC INFORMATION RELATIONS MANAGER Office Visit [facility] Cardiology [address] [place] [phone] Ragini Velasco MD Coronary artery disease of quartz [place] artery of quartz [place] heart with stable angina pectoris (CMS/HCC) (Primary Dx); Peripheral arterial occlusive disease (CMS/HCC) (HCC); Pulmonary hypertension (HCC); Bilateral carotid artery stenosis; Hyperlipidemia LDL goal <70; Primary hypertension; Chest pressure 10/18/2024 Telephone [facility] ([facility]ally In[facility] [address] [place] [address] 12th Floor, [place] [phone] Kiara Reeder RN from Last 3 Months Immunizations Immunization Administration Dates Next Due Influenza, Quadrivalent, Celia [...] retroperitoneal fibrosis, status post left nephrec; Comments: [facility] 02/20/2015 - Hx Other Medical glaucoma, JANNY, obesity, hypercholesterolemia, dent; Comments: [facility] 02/20/2015 - Hypertension HLD (hyperlipidemia) Sleep apnea Family History Medical History Relation Name Comments [...] on file Legal Sex Female 2:59 AM PUBLIC INFORMATION RELATIONS MANAGER Gender Identity Not on file Sexual Orientation Not on file Obstetrics History Last Filed Vital Signs Vital Sign Reading Time Taken Comments Blood Pressure 133/70 12/31/2024 1:22 PM PUBLIC INFORMATION RELATIONS MANAGER Pulse 71 12/31/2024 1:20 PM PUBLIC INFORMATION RELATIONS MANAGER Temperature 37.1 C (98.7 F) 06/28/2024 9:02 AM CDT Respiratory Rate 18 12/31/2024 1:20 PM PUBLIC INFORMATION RELATIONS MANAGER Oxygen Saturation 98% 12/31/2024 1:20 PM PUBLIC INFORMATION RELATIONS MANAGER Inhaled Oxygen Concentration - - Weight 73.4 kg (161 lb 13.1 oz) 12/31/2024 5:14 PM PUBLIC INFORMATION RELATIONS MANAGER Height 157.5 cm (5' 2 ) 12/31/2024 1:20 PM PUBLIC INFORMATION RELATIONS MANAGER Body Mass Index 29.6 12/31/2024 1:20 PM PUBLIC INFORMATION RELATIONS MANAGER Plan of Treatment Upcoming Encounters Date Type Department Care Team (Late st Contact Info) Description 12/31/2024 11:59 PM PUBLIC INFORMATION RELATIONS MANAGER Anesthesia Event [facility] Operating Room [address] [place] [address] Haley Rodriguez, [place] [address] [address] 04/29/2025 Hospital Encounter [facility] Operating Room [address] [place] [address] Jorge Manning MD [address] [place] [address] Scheduled Procedures Name Priority Associated Diagnoses Date/Ti [...] Pneumococcal vaccine 65+ (2 of 2 - PPSV23) 01/11/2017 11/16/2016 Well Visit 65+ 2021 Influenza Vaccine (#1) 2024 0, 10/23/2019, 08/13/2019, Additional history exists Fall Risk Assessment 12/31/2025 12/31/2024, 08/21/20 Colon Cancer Screening-Colonoscopy 01/30/2027 01/30/2017 Colon Cancer Screening-CT Colonography Discontinued 01/30/2017 Colon Cancer Screening-DNA Stool Discontinued 01/31/20 Colon Cancer Screening-FIT Discontinued 01/30/2017 Colon Cancer Screening-Sigmoidoscopy Discontinued 01/30/2017 Zoster Vaccine Completed 10/30/2018, 08/08/2018 Medical Devices Implanted Type Area Restoration Officer Device Identifier Shelf Expiration Date Model / Serial / Lot Graft Graft Femoral Description:2014 Stent Implanted:Qty: 1 Stent Coronary Artery Description:2014 Procedures Procedure Name Priority Date/Time Associated Diagnosis Comments EGFR Routine 12/31/2024 2:50 PM PUBLIC INFORMATION RELATIONS MANAGER Preoperative testing DIFFERENTIAL AUTO Routine 12/31/2024 2:5 0 PM PUBLIC INFORMATION RELATIONS MANAGER Preoperative testing COMPREHENSIVE METABOLIC PANEL Routine 12/31/2024 2:50 PM PUBLIC INFORMATION RELATIONS MANAGER Preoperative testing CBC WITH AUTO DIFFERENTIAL Routine 12/31/2024 2:50 PM PUBLIC INFORMATION RELATIONS MANAGER Preoperative testing TYPE AND SCREEN 14 DAY Routine 12/31/2024 2:50 PM PUBLIC INFORMATION RELATIONS MANAGER Preoperative testing US PHIL Schedule Routine, Read Routine (OP Routine) 12/30/2024 11:41 AM PUBLIC INFORMATION RELATIONS MANAGER Peripheral arterial occlusive disease (CMS/HCC) (HCC) Other specified symptoms and signs involving the circulatory and respiratory systems VL US ARTERIAL DUPLEX LOWER EXTREMITY BILATERAL Routine 12/30/2024 10:12 AM PUBLIC INFORMATION RELATIONS MANAGER Peripheral arterial occlusive disease (CMS/HCC) (HCC) Other specified symptoms and signs involving the circulatory and respiratory systems POCT LIPID PANEL Routine 12/13/2024 9:08 AM PUBLIC INFORMATION RELATIONS MANAGER Coronary artery disease of quartz [place] artery of [place] heart with stable angina pectoris (CMS/HCC) PET/CT MYOCARDIAL METABOLIC EVALUATION FOR VIABILITY Schedule Routine, Read Routine (OP Routine) 12/11/2024 12:47 PM PUBLIC INFORMATION RELATIONS MANAGER Coronary artery disease of quartz [place] artery of quartz [place] heart with stable angina pectoris (CMS/HCC) NM MPI SPECT SINGLE STUDY (REST) VIABILITY Schedule Routine, Read Routine (OP Routine) 12/11/2024 9:27 AM PUBLIC INFORMATION RELATIONS MANAGER Coronary artery disease of quartz [place] artery of [place] heart with stable angina pectoris (CMS/HCC) NM MPI SPECT (REST AND/OR STRESS) MULTIPLE STUDIES Schedule Routine, Read Routine (OP Routine) 11/14/2024 10:14 AM PUBLIC INFORMATION RELATIONS MANAGER Coronary artery disease of quartz [place] artery of quartz [place] heart with stable angina pectoris (CMS/HCC) Chest pressure CT VIRTUAL COLONOSCOPY DIAGNOSTIC W CONTRAST Routine 01/30/2017 2:38 PM CDT from Last 3 Months or Most Recently Relevant to Health Maintenance Results * TYPE AND SCREEN 14 DAY (12/31/2024 2:50 PM PUBLIC INFORMATION RELATIONS MANAGER) Pathologist [facility] ABO Rh O Positive Fabiano, indirect Negative [facility] Blood 12/31/2024 2:50 PM PUBLIC INFORMATION RELATIONS MANAGER 12/31/2024 3:25 PM PUBLIC INFORMATION RELATIONS MANAGER Narrative [facility] - 12/31/2024 4:13 PM PUBLIC INFORMATION RELATIONS MANAGER Has the patient had Daratumumab or Isatuximab in the past 6 months?->No Is this test being ordered in advance for a procedure?->Yes Expected date of procedure:->01/02/25 Has the patient been transfused in the past 3 months?->No Has the patient been in the past 3 months?->No us Corey Stanley NP LAB BLOOD BANK TEST DOLORES BOATENG Final Result [facility] [place] [address] * (ABNORMAL) eGFR (12/31/2024 2:50 PM PUBLIC INFORMATION RELATIONS MANAGER) Pathologist [facility] eGFR 36(L) >=60 mL/min/1. 73 m2 Comment: [...] last reviewed 2021. Blood 12/31/2024 2:50 PM PUBLIC INFORMATION RELATIONS MANAGER 12/31/2024 3:25 PM PUBLIC INFORMATION RELATIONS MANAGER us Corey Stanley NP LAB BLOOD ORDERABLES Fin al Result [facility] Department [place] [address] * (ABNORMAL) Differential, auto (12/31/2024 2:50 PM PUBLIC INFORMATION RELATIONS MANAGER) Neutrophil abs 9.4(H) 1.5 - 6.5 K/cumm Imm gran abs 0.1 0.0 - 0.1 K/cumm [facility] Lymphocyte abs 4.3(H) 0.8 - 3.3 K/cumm [facility] Monocyte abs 1.4(H) 0.2 - 0.8 K/cumm [facility] Eosinophil abs 0.0 0.0 - 0.5 K/cumm [facility] Basophil abs 0.0 0.0 - 0.1 K/cumm [facility] Neutrophil pct 62.0 % [facility] Comment: Interpretive Data Percent cell count reference ranges are not reported, since discordance with absolute values may lead to misinterpretation of CBC data. Current Interpretive Data was last revised on 2018. Imm gran pct 0.5 % [facility] Comment: Interpretive Data Percent cell count reference ranges are not reported, since discordance with absolute values may lead to misinterpretation of CBC data. Current Interpretive Data was last revised on 2018. Lymphocyte pct 28.4 % [facility] Comment: Interpretive Data Percent cell count reference ranges are not reported, since discordance with absolute values may lead to misinterpretation of CBC data. Current Interpretive Data was last revised on 2018. Monocyte pct 8.9 % [facility] Comment: Interpretive Data Percent cell count reference ranges are not reported, since discordance with absolute values may lead to misinterpretation of CBC data. Current Interpretive Data was last revised on 2018. Eosinophil pct 0.1 % [facility] Comment: Interpretive Data Percent cell count reference ranges are not reported, since discordance with absolute values may lead to misinterpretation of CBC data. Current Interpretive Data was last revised on 2018. Basophil pct 0.1 % [facility] Comment: Interpretive Data Percent cell count reference ranges are not reported, since discordance with absolute values may lead to misinterpretation of CBC data. Current Interpretive Data was last revised on 2018. Blood 12/31/2024 2:50 PM PUBLIC INFORMATION RELATIONS MANAGER 12/31/2024 3:26 PM PUBLIC INFORMATION RELATIONS MANAGER us Corey Stanley NP LAB BLOOD ORDERABLES Fin al Result Performing Organization Address City/State/[facility] Co de Phone Number [facility] Department [place] [address] * (ABNORMAL) CBC with auto differential (12/31/2024 2:50 PM PUBLIC INFORMATION RELATIONS MANAGER) WBC 15.1(H) 3.8 - 9.9 K/cumm Hgb 10.1(L) 11.9 - 15.5 g/dL [facility] Hct 31.4(L) 35.6 - 45.5 % [facility] Plt 355 150 - 400 K/cumm [facility] MPV 9.9 9.1 - 12.3 fL [facility] RBC 3.30(L) 3.90 - 5.20 M/cumm [facility] MCV 95.2 81.3 - 96.4 fL [facility] MCH 30.6 27.1 - 33.3 pg [facility] MCHC 32.2(L) 32.3 - 35.7 g/dL [facility] RDW CV 20.1(H) 11.1 - 14.9 % [facility] RDW SD 69.9(H) 35.7 - 48.1 fL [facility] NRBC abs 0.00 0.00 - 0.01 K/cumm [facility] Blood 12/31/2024 2:50 PM PUBLIC INFORMATION RELATIONS MANAGER 12/31/2024 3:26 PM PUBLIC INFORMATION RELATIONS MANAGER us Corey Stanley NP LAB BLOOD ORDERABLES Fin al Result [facility] Department [place] [address] * (ABNORMAL) Comprehensive metabolic panel (12/31/2024 2:50 PM PUBLIC INFORMATION RELATIONS MANAGER) Sodium 139 135 - 145 mmol/L Potassium, pl 5.1(H) 3.3 - 4.9 mmol/L [facility] Chloride 107 97 - 110 mmol/L [facility] CO2 21(L) 22 - 32 mmol/L [facility] Anion gap 11 2 - 15 mmol/L [facility] BUN 23 6 - 25 mg/dL [facility] Creatinine 1.56(H) 0.60 - 1.10 mg/dL [facility] Glucose 115 70 - 199 mg/dL [facility] Comment: Interpretive Data Fasting glucose >/= 126 [...] classification and Diagnosis of Diabetes Diabetes Care 2022; 46: S19-S40. Current interpretive data was last revised 2022. Calcium 9.3 8.5 - 10.3 mg/dL [facility] Bilirubin, total 0.3 0.1 - 1.2 mg/dL [facility] Protein, pl 7.9 6.5 - 8.5 g/dL [facility] Albumin 4.0 3.5 - 5.0 g/dL [facility] Alk phos 99 40 - 130 Units/L [facility] ALT 16 7 - 45 Units/L [facility] AST 18 10 - 45 Units/L [facility] Blood 12/31/2024 2:50 PM PUBLIC INFORMATION RELATIONS MANAGER 12/31/2024 3:25 PM PUBLIC INFORMATION RELATIONS MANAGER Corey Stanley NP LAB BLOOD ORDERABLES Fin al Result [facility] Department [place] [address] * US PHIL (12/30/2024 11:41 AM PUBLIC INFORMATION RELATIONS MANAGER) Anatomical Region Laterality Modality Vascular N/A Ultrasound 12/30/2024 8:29 AM PUBLIC INFORMATION RELATIONS MANAGER Narrative 12/30/2024 4:06 PM PUBLIC INFORMATION RELATIONS MANAGER Lower Extremity Arterial Doppler Report Patient Name: GENARO GAYLE [place] : 1955 Study Date: 12/30/2024 8:29:00 AM Gender: F Audio Production Manager: Juan Zazueta RDMO, RVT Ref Provider: KATARZYNA PEREIRA Quality: Adequate Order Provider: KATARZYNA PEREIRA PROCEDURES: Arterial Report: Ankle - Brachial Index Doppler exam. INDICATIONS: Peripheral Vascular Disease, Unspecified and Atherosclerosis of [place] Arteries of Extremities with Intermittent Claudication, Bilateral Leg. HISTORY: s/p right to left fem-fem bypass graft in 2015. Risk Factors: Previous smoker (quit about 9 years ago), hypertension, hyperlipidemia, heart disease, lung disease. COMPARISONS: The previous exam was completed on 06-19-2024. MEASUREMENTS: Right Value Left Value Rt Brachial Pressure 161 mmHg Lt Brachial Pressure 158 mmHg Rt [employer]JUNCT [employer]HEMAT[employer] DEPARTMENT Pressure 180 mmHg Lt [employer]JUNCT FAC[employer]HEMAT[employer] DEPARTMENT Pressure 176 mmHg Rt DPA Pressure 154 [...] By: Vick Pereira MD 12/30/2024 3:09:59 PM PUBLIC INFORMATION RELATIONS MANAGER Procedure Note Vick Pereira MD - 12/30/2024 Lower Extremity Arterial Doppler Report Patient Name: GENARO GAYLE [place] : 1955 Study Date: 12/30/2024 8:29:00 AM Gender: F Audio Production Manager: Juan Zazueta RDMS, RVT Ref Provider: KATARZYNA [...] mmHg Lt Brachial Pressure 158 mmHg Rt ADJUNCT FAC[employer] MATHEMATICS DEPARTMENT Pressure 180 mmHg Lt [employer]JUNCT [employer]HE[employer] DEPARTMENT Pressure 176 mmHg Rt DPA Pressure 154 [...] By: Vick Pereira MD 12/30/2024 3:09:59 PM PUBLIC INFORMATION RELATIONS MANAGER us Katarzyna Pereira MD IMG US PROCEDURES Final Result * US Arterial Duplex Lower Extremity Bilateral (12/30/2024 10:12 AM PUBLIC INFORMATION RELATIONS MANAGER) Anatomical Region Laterality Modality Vascular Bilateral Ultrasound 12/30/2024 8:08 AM PUBLIC INFORMATION RELATIONS MANAGER Narrative 12/30/2024 4:07 PM PUBLIC INFORMATION RELATIONS MANAGER Lower Extremity Arterial Duplex Report Patient Name: GENARO GAYLE [place] : 1955 (69y 2m) Gender: F Study Date: 12/30/2024 08:08:32 AM Ht(Inch): Wt(Lb): BSA: Audio Production Manager: Juan Zazueta Provider: KATARZYNA PEREIRA Quality: Adequate Ref Provider: KATARZYNA PEREIRA PROCEDURES: Arterial Report: A non-invasive vascular imaging study of the bilateral lower extremity arteries and bypass grafts was performed using B-mode ultrasound, color flow, and spectral Doppler. INDICATIONS: Atherosclerosis of [place] arteries of extremities with intermittent claudication, bilateral and Encounter for surgical aftercare following surgery on the circulatory system. HISTORY: s/p right to left fem-fem bypass graft in 2014. Risk Factors: Hypertension, Hyperlipidemia, previous smoker (quit about 9 years ago), Heart disease, Lung disease. COMPARISONS: No change compared to prior study. The previous exam was completed on 06-19-2024. MEASUREMENTS: Right Value Left Value Rt FUNERAL SERVICE MANAGER Prx PSV 221.00 cm/sec Lt FUNERAL SERVICE MANAGER Dst PSV 197.00 cm/sec Lt Profunda Prx [...] By: Vick Pereira MD 12/30/2024 3:12:44 PM PUBLIC INFORMATION RELATIONS MANAGER Procedure Note Vick Pereira MD - 12/30/2024 Lower Extremity Arterial Duplex Report Patient Name: GENARO GAYLE [place] : 1955 (69y 2m) Gender: F Study Date: 12/30/2024 08:08:32 AM Ht(Inch): Wt(Lb): BSA: Audio Production Manager: Juan aZzueta Provider: KATARZYNA PEREIRA Quality: Adequate Ref Provider: KATARZYNA PEREIRA PROCEDURES: Arterial Report: A non-invasive vascular imaging study of the bilaterallower extremity arteries and bypass grafts was performed using B-mode ultrasound, colorflow, and spectral Doppler. INDICATIONS: Atherosclerosis of [place] arteries of extremities with intermittentclaudication, bilateral and Encounter for surgical aftercare following surgery on thecirculatory system. HISTORY: s/p right to left fem-fem bypass graft in 2014. Risk Factors: Hypertension, Hyperlipidemia, previous smoker (quit about 9years ago), Heart disease, Lung disease. COMPARISONS: No change compared to prior study. The previous exam was completed on06-19-2024. MEASUREMENTS: Right Value Left Value Rt FUNERAL SERVICE MANAGER Prx PSV 221.00 cm/sec Lt FUNERAL SERVICE MANAGER Dst PSV 197.00 cm/sec Lt Profunda Prx [...] By: Vick Pereira MD 12/30/2024 3:12:44 PM PUBLIC INFORMATION RELATIONS MANAGER Katarzyna Pereira MD [facility] PROCEDURES Final Result * POCT lipid panel (12/13/2024 9:08 AM PUBLIC INFORMATION RELATIONS MANAGER) Cholesterol, POC 114 mg/dL HDL, POC 46 mg/dL Triglycerides, POC 136 mg/dL LDL Cholesterol POC 41 mg/dL Chol/HDL Ratio, POC 0.9 Non-HDL Cholesterol, POC 69 mg/dL Cholesterol Total, POC 114 mg/dL Capillary blood 12/13/2024 9 :08 AM PUBLIC INFORMATION RELATIONS MANAGER Ragini Velasco MD POINT OF CARE TEST ORDERA BLES Final Result * PET/CT Myocardial Metabolic Evaluation for Viability (12/11/2024 12:47 PM PUBLIC INFORMATION RELATIONS MANAGER) Anatomical Region Laterality Modality N/A Positron Emissio n Tomography (PET) 12/11/2024 5:36 PM PUBLIC INFORMATION RELATIONS MANAGER Impressions 12/11/2024 5:39 PM PUBLIC INFORMATION RELATIONS MANAGER 1. Viable myocardium in the small and [...] Jannet English M.D. Narrative 12/11/2024 5:39 PM PUBLIC INFORMATION RELATIONS MANAGER EXAMINATION: MYOCARDIAL PET/CT (METABOLISM) DATE OF STUDY: 12/11/2024 SCANNER: [facility] RADIOPHARMACEUTICAL: 10.61 mCi F-18 Fluorodeoxyglucose [...] minutes. The study was interpreted on the [employer] workstation. At the conclusion of the study, [...] PET/CT (METABOLISM) DATE OF STUDY: 12/11/2024 SCANNER: [facility] [employer] RADIOPHARMACEUTICAL: 10.61 mCi F-18 Fluorodeoxyglucose (FDG) i.v., [...] minutes. The study was interpreted on the [employer] workstation. At the conclusion of the study, [...] Study (Rest) for Viability (12/11/2024 9:27 AM PUBLIC INFORMATION RELATIONS MANAGER) Anatomical Region Laterality Modality Body N/A Nuclear Medicine 12/11/2024 5:30 PM PUBLIC INFORMATION RELATIONS MANAGER Impressions 12/11/2024 5:36 PM PUBLIC INFORMATION RELATIONS MANAGER 1. Small size and mildly severe decreased rest perfusion defect of anterior and anteroseptal wall. 2. Normal left ventricular size and systolic function. Drs. Bojorquez and Fermin also participated in the interpretation of this examination. Please refer to the same day FDG PET for viability accession #[id number] for more information. Dictated by: Anita Quinones M.D. The radiology attending physician has personally reviewed this study, and had reviewed and/or edited this written report and agrees with it. Electronically signed by: Jannet English M.D. Narrative 12/11/2024 5:36 PM PUBLIC INFORMATION RELATIONS MANAGER EXAMINATION: MYOCARDIAL IMAGING (REST/SPECT-CT) DATE OF STUDY: [...] same day FDG PET for viability accession #[id number] for more information. Dictated by: Anita Quinones M.D. The radiology attending physician has personally reviewed this study, and had reviewed and/or edited this written report and agrees with it. Electronically signed by: Jannet English M.D. us Ragini Velasco MD IMG NM PROCEDURES Final R esult * NM MPI SPECT (Rest and/or Stress) Multiple Studies (11/14/2024 10:14 AM PUBLIC INFORMATION RELATIONS MANAGER) Anatomical Region Laterality Modality Body N/A Nuclear Medicine 11/14/2024 8:26 AM PUBLIC INFORMATION RELATIONS MANAGER Narrative 11/14/2024 12:45 PM PUBLIC INFORMATION RELATIONS MANAGER [facility] Cardiology [address] [facility] [address] [place] [id number] [address], [place] [address] P:[phone] P:[phone] MPI Imaging Report Patient Name: GENARO GAYLE [place] : 1955 Study Date: 11/14/2024 8:26:53 AM Gender: F Tech: [facility] Location: [facility] Provider: RAGINI VELASCO Height(Cm): 157.5 BSA: Weight(Kg): 79.4 BMI: 32.01 Order Provider: RAGINI VELASCO - PHYSICIAN: Referring Physician: Dr. Freeman. HCG Physician: Serafin Velasco M.D. Interpreting Physician: Serafin Velasco M.D. Stress Supervision: Umang Galicia M.D., .A.CIlia. PROCEDURES: Pharmacologic SPECT Report: Myocardial perfusion imaging with Tc99M Sestamibi SPECT at rest and stress post regadenoson (Lexiscan) infusion. INDICATIONS: Hypertension, Family Hx CAD, High Cholesterol, Former Smoker, Palpitations. PVD, I25.118 Atherosclerotic heart disease of [place] coronary artery with other forms of angina [...] By: Umang Galicia MD 11/14/2024 11:54:51 AM PUBLIC INFORMATION RELATIONS MANAGER Electronically Signed By: Ragini Velasco MD 11/14/2024 12:45:24 PM PUBLIC INFORMATION RELATIONS MANAGER Procedure Note Ragini Velasco MD - 11/14/2024 [facility] Medical [facility] Cardiology [address] [facility] [address] [address] [address], [place] [address] P:[phone] P:[phone] MPI Imaging Report Patient Name: GENARO GAYLE [place] : 1955 Study Date: 11/14/2024 8:26:53 AM Gender: F Tech: [facility] Location: [facility] Provider: RAGINI VELASCO Height(Cm): 157.5 [...] Smoker,Palpitations. PVD, I25.118 Atherosclerotic heart disease of [place] coronary artery with other formsof angina pectoris, [...] By: Umang Galicia MD 11/14/2024 11:54:51 AM PUBLIC INFORMATION RELATIONS MANAGER Electronically Signed By: Ragini Velasco MD 11/14/2024 12:45:24 PM PUBLIC INFORMATION RELATIONS MANAGER us Ragini Velasco MD IMG NM PROCEDURES [...] agrees with it. ACC# Date Time Exam [id number] Jan 30, 2017 09:38:[id number] Colonography Screen ACC# Date Time Exam [id number] Jan 30, 2017 09:38:[id number] Colonography Screen EXAMINATION: CT colonography without [...] SHAW M.D. on Jan 30 2017 5:45P [id number] Procedure Note Miscellaneous, Notinfile / Provider, MD Alicia - 04/04/2017 GRAZYNA SHAW M.D. PUNEET ALVAREZ M.D. FINAL REPORT The radiology attending physician has personally reviewed this study, and has reviewed and/or edited this written report and agrees with it. ACC# Date Time Exam [id number] Jan 30, 2017 09:38:[id number] Colonography Screen ACC# Date Time Exam [id number] Jan 30, 2017 09:38:[id number] Colonography Screen EXAMINATION: CT colonography without [...] SHAW M.D. on Jan 30 2017 5:45P [id number] us Not In File Miscellaneous IMG CT PROCEDURES Evelin l Result from Last 3 Months or Most Recently Relevant to Health Maintenance Additional Health Concerns Infection Onset Date Last Indicated MDR gram neg/ESBL 11/29/2023 11/29/2023 Insurance [facility] [place] [address] Advance Directives For more information, please contact: [phone] * Full Code (Latest Code Status on File) Date Activated Date Inactivated Comments 11/28/2023 12:54 PM 12/01/2023 6:05 PM Care Teams Audit Intern Relationship Specialty Start Date End Date Ricardo Freeman DO [address] [facility] [address] [place] [address] PCP - General Internal Medicine 06/19/24
[2025-01-13 09:31] LABS: Basophils Percent Auto 0.1 % (0.2-1.2); Eosinophils Percent Auto 0.1 % (0-4.4); Hematocrit 30.2 % (37.0-47.0); Hemoglobin 9.9 g/dL (12.0-15.0); Immature Granulocyte Absolute 0.04 K/mm3 (0.00-0.031); Immature Granulocyte Percent A 0.4 % (0-0.5); Lymphocytes Absolute Auto 1.87 K/mm3 (0.9-3.2); Lymphocytes Percent Auto 18.2 % (18.3-44.2); Mean Corpuscular HGB Conc 32.8 g/dl (32-36); Mean Corpuscular Hemoglobin 30.8 pg (26-34); Mean Corpuscular Volume 94.1 fl (80-100); Mean Platelet Volume 10.1 fl (7.4-10.4); Monocytes Absolute Auto 0.6 K/mm3 (0.1-0.6); Monocytes Percent Auto 5.9 % (2.6-8.5); Neutrophils Absolute Auto 7.7 K/mm3 (1.3-6.7); Neutrophils Percent Auto 75.3 % (45.5-73.1); Platelet Count Result 240 k/mm3 (150-375); Red Blood Count 3.21 M/mm3 (4.2-5.4); Red Cell Distribution Width 19.1 % (11.5-14.5); White Blood Count 10.3 K/mm3 (4.5-10.0)
[2025-01-13 09:41] LABS: Anion Gap 13 mmol/L (4-12); Blood Urea Nitrogen 22 mg/dL (7-17); Calcium 8.4 mg/dL (8.4-10.2); Carbon Dioxide 17 mmol/L (22-30); Chloride 109 mmol/L (98-107); Estimated CRCL calculation 33 ml/min; Estimated Glomerular Filt Rate 39; Glucose 112 mg/dL (65-110); Potassium 4.5 mmol/L (3.4-5.0); Sodium 139 mmol/L (137-145)
[2025-01-13 09:44] LABS: INR 1.1; Prothrombin Time 14.6 Seconds (11.1-14.7)
--- NOTE | 2025-01-13 12:53 | WPDHPUPDATE1 ---
History and Physical Update Update Date/Time: 01/13/25 12:23 History and Physical has been reviewed, including an updated exam of the patient. There are NO changes in the patient's condition. Risks, benefits, and alternatives have been discussed and questions answered. Patient agrees to proceed with procedure.
--- NOTE | 2025-01-13 12:54 | P.SEDATION_ITS ---
Moderate Sedation Note-Pt Data Patient Data Allergies Allergy/AdvReac Type Severity Reaction Status Date / Time No Known Allergies Allergy Verified 01/13/25 09:11 Home Medications ?Medication ?Instructions ?Recorded ?Confirmed ?Type clopidogrel 75 mg tablet (Plavix) 75 mg PO QAM 12/02/19 01/13/25 History nitroglycerin 0.4 mg sublingual 0.4 mg sublingual Q5M PRN Chest 12/02/19 01/10/25 History tablet Pain oxybutynin chloride 15 mg 15 mg PO DAILY 12/02/19 01/10/25 History tablet,extended release 24 hr ranolazine 500 mg tablet,extended 500 mg PO BID 03/24/21 01/10/25 History release,12 hr rosuvastatin 40 mg tablet 40 mg PO DAILY 05/09/23 01/13/25 History zoledronic acid 5 mg/100 mL in 1 ea IV DIRECTED 12/11/23 01/10/25 History mannitol 5 %-water intravenous piggybck methenamine hippurate 1 gram tablet 1 g PO BID 02/06/24 01/10/25 History felodipine 10 mg tablet,extended 10 mg PO QAM #90 tabs 04/16/24 01/10/25 Rx release 24 hr Stiolto Respimat 2.5 mcg-2.5 See Rx Instructions .Route 05/01/24 01/10/25 Rx mcg/actuation solution for .COMPLEX #12 grams inhalation (tiotropium-olodaterol) folic acid 1 mg tablet 1 mg PO DAILY #90 tabs 05/22/24 01/10/25 Rx levothyroxine 88 mcg tablet 88 mcg PO QAM #90 tabs 05/22/24 01/13/25 Rx albuterol sulfate 90 mcg/actuation 1 - 2 inh inhalation Q4-6H PRN 06/07/24 01/10/25 Rx aerosol inhaler shortness of breath or wheezing #8.5 grams warfarin 3 mg tablet See Rx Instructions .Route 11/22/24 01/10/25 Rx .COMPLEX #45 tabs isosorbide mononitrate 30 mg 30 mg PO DAILY 11/25/24 01/13/25 History tablet,extended release 24 hr carvedilol 25 mg tablet 25 mg PO Q12H #180 tabs 12/19/24 01/13/25 Rx acetaminophen 325 mg capsule 650 mg PO Q6H PRN pain 01/10/25 01/10/25 History lansoprazole 15 mg capsule,delayed 15 mg PO DAILY PRN acid reflux 01/10/25 01/10/25 History release Sedation/Anesthesia: No previous sedation/anesthesia problems (including family history). [facility] Past Medical History Medical History (Updated 12/19/24 @ 12:02 by Lazaro Juarez MD) Hunner's ulcer Coronary artery disease Chronic obstructive pulmonary disease Chronic kidney disease, stage 3 Abdominal aortic aneurysm mild dilatation of the distal aorta measuring 3.[address] scan in November 2024 Hypercholesterolemia Deep venous thrombosis (2014) Chronic anticoagulation Paroxysmal atrial fibrillation Essential hypertension Gastro-esophageal reflux disease without esophagitis Pulmonary embolism (2014) History of tobacco abuse Anxiety Gout Osteoporosis Arthritis Cancer of left kidney status post left nephrectomy Ventral hernia Hemorrhoids Sleep apnea does not use CPAP Migraine Glaucoma Hypothyroidism Peripheral vascular disease, unspecified Surgical History Surgical History History of right breast biopsy History of open reduction and internal fixation (ORIF) procedure repair of bilateral wrist and left foot fractures History of cystoscopy History of hernia repair History of vascular surgery bifemoral bypass left femoral and popliteal stents History of ventral hernia repair History of right shoulder replacement History of cholecystectomy History of appendectomy History of left nephrectomy History of splenectomy retroperitoneal fibrosis History of tubal ligation History of cataract extraction History of coronary artery stent placement (2014) Hx of foot surgery History of hysterectomy Family History Family History Mother Family history of Alzheimer's disease, Onset Age: 82 Sibling Family history of diabetes mellitus in first degree relative Diabetes mellitus Family history of congenital heart disease Father Family history of emphysema Family history of congenital heart disease Other Hypertension Social History Social History (Updated 11/25/24 @ 23:32 by Loren Kumar PA-C) Social History: Surrogate medical decision maker: Amrit Gallardo, pari. Code status: Full code. Smoking packs per day: 0.5 Smoking cigarettes per day: 10.0 Years smoked: 30 Smoking pack-years: 15.00 Smoking status: Former smoker Tobacco type: cigarettes Second hand tobacco smoke exposure: No Smoking end date: 11/13/14 Additional smoking assessment comments: quit 2013 Alcohol intake: never Substance use: never Substance use type: does not use Do You Feel Safe in your Home?: Yes Lack of Transportation: No Lack of Food: Never True Current Housing: I Have Housing Concerned About Future Housing: No Difficulty Paying Gas/Electric Bills: No Difficulty Paying for Meds: No Currently Unemployed: No Education: High School Diploma/GED Difficulty w/ Childcare or Family Care: No Living arrangements: with family Additional living arrangements comments: Son Occupation/Education: retired Gender identity (if verbalized by the patient): Female Spiritual care concerns: No Mod Sed Physical Exam Physical Exam Pre Procedural Exam: Normal: Heart Rate and Heart Rhythm Hours since solid foods: 12 Hours since liquid intake: 12 Mallampati Classification: class II Internal Medicine - PN: Obj Da Vital Signs Vital Signs: Vital Signs - 24 hr 01/13/25 09:15 Temperature 37.2 C Pulse Rate 78 Respiratory Rate 16 Blood Pressure 138/68 Pulse Oximetry 95 Oxygen Delivery Room Air Labs 01/13/25 09:17 01/13/25 09:17 Labs: Laboratory Results - last 24 hr 01/13/25 09:17 WBC 10.3 H RBC 3.21 L Hgb 9.9 L Hct 30.2 L MCV 94.1 MCH 30.8 MCHC 32.8 RDW 19.1 H Plt Count 240 D MPV 10.1 Immature Gran % (Auto) 0.4 Neut % (Auto) 75.3 H Lymph % (Auto) 18.2 L [place] % (Auto) 5.9 Eos % (Auto) 0.1 Baso % (Auto) 0.1 L Lymph # (Auto) 1.87 [place] # (Auto) 0.6 Eos # (Auto) 0.0 Baso # (Auto) 0.0 Abs Immat Gran (auto) 0.04 H Absolute Neuts (auto) 7.7 H Absolute Nucleated RBC 0.000 Nucleated RBC % 0.0 PT 14.6 INR 1.1 Sodium 139 Potassium 4.5 Chloride 109 H Carbon Dioxide 17 L Anion Gap 13 H BUN 22 H Creatinine 1.36 H Estim Creat Clear Calc 33 Estimated GFR 39 L Glucose 112 H Calcium 8.4 ASA Classification/Sedation ASA Classification/Sedation ASA Class: III Emergent: No Risks: Risks, benefits and alternatives explained and patient/family accepted plan for sedation. Patient re-evaluated immediately prior to sedation.
--- NOTE | 2025-01-13 13:19 | WPDCARDPROC ---
Cardiac Cath Procedure Note Date of procedure:: 01/13/25 Performing physician:: CATHETERIZATION LABORATORY REPORT Procedure Date: 01/13/2025 Referring Physician: Dr. Velasco Anesthesia: Versed and Fentanyl were ordered and given in my presence at 1258, procedure ended at 1316. Supervision of nurse, Elizabeth Andersen monitored moderate sedation with 2mg Versed and 50mcg Fentanyl was provided for 18 minutes. Pre-op Diagnosis: Abnormal Stress Test Post-op Diagnosis: Abnormal Stress Test Procedure(s): Left heart catheterization with coronary angiography Access Site: Right radial artery Brief History and Clinical Indications: 61-year-old woman with coronary artery disease who underwent a nuclear stress test as well as a PET myocardial perfusion imaging that was abnormal in anticipation for preop of hernia repair is here to define her coronary anatomy. All risks, benefits and alternatives to left heart catheterization with or without percutaneous coronary intervention was discussed at length with the patient. Risk of complications including but not limited to bleeding, infection, arrhythmia, stroke, worsening kidney function, blood loss, groin hematoma, limb loss, emergency coronary artery bypass grafting, and even were discussed with the patient and all questions were answered. The patient understood and wished to proceed. Time out called, patient name, date of , medical record number, allergies, procedure performed, identify [employer], patient and staff member concurred with accurate data, procedure carried on. Findings: LEFT HEART CATHETERIZATION FINDINGS: 1. Left main: The left main coronary artery has 20-30% ostial stenosis. 2. Left anterior descending: The LAD gives off 2 main diagonal branches. The diagonal branches have luminal irregularities. The mid LAD after the takeoff of the 1st diagonal branch is a very tortuous segment that also gives off several septal side branches and has 40-50% stenosis. 3. Left circumflex: The left circumflex artery and the main marginal branches is very tortuous and has diffuse 10-20% stenosis. 4. Right coronary artery: The RCA has a proximal to ostial stent that has 20-30% InStent restenosis. The proximal RCA after the previously placed stent has 30-40% stenosis. The remainder of the vessel is highly tortuous with luminal irregularities. 5. Left ventricle: A. End-diastolic pressure 23 mmHg. B. LV gram deferred. C. No significant gradient across aortic valve on catheter pullback. 6. Opening AO pressure 1258 and closing AO pressure 1316 Description of Procedure: Informed consent signed and placed in the chart. Patient transferred to laborer landscape room. Prepped and draped in usual sterile fashion. 2% lidocaine injected subcutaneously in right wrist area. 22-gauge venipuncture catheter used to access the right radial artery with the Seldinger technique. 6-FR slender sheath placed in right radial artery. Nitroglycerin 200mcg, Verapamil 2.5mg, and Heparin 5000U was given intraarterial through the sheath. J wire advanced under fluoroscopy 5F TIG diagnostic catheter engaged Left Main Coronary Artery. 5F TIG diagnostic catheter engaged Right Coronary Artery Multiple orthogonal angiogram obtained and reviewed 5F Pigtail diagnostic catheter crossed aortic valve to obtain LVEDP, LV angiogram deferred. Hemostasis was achieved by application of TR band. Assessment: Stable coronary artery disease Post Operative Condition: Stable No significant blood loss Disposition: Home Plan: Continue aggressive medical therapy and risk factor modification. No further cardiac testing warranted prior to hernia surgery. Rah Carvalho Interventional Cardiology
[2025-01-13] MEDS: ALBUTEROL SULFATE NEB 2.5 MG/3 ML INH 1.25 MG INHALATION (17:04)
[2025-01-13] MEDS: FUROSEMIDE 40 MG TABLET PO (17:50)
[2025-01-13] MEDS: IPRATROPIUM 0.5 MG/ALBUTEROL SULFATE 2.5 MG AMPUL.NEB 3 ML INHALATION (17:55)
[2025-01-13] MEDS: SODIUM CHLORIDE 0.9% IV 1,000 ML 125 ML IV CONT (18:15)
[2025-01-13] MEDS: FUROSEMIDE INJ 40 MG/4 ML VIAL IV PUSH (19:00)
--- NOTE | 2025-01-13 19:28 | SUR.OPER ---
Gave Ailyn STEPHEN on [facility] report on this patient. Transfered patient to room 242 with all belongings.
--- NOTE | 2025-01-13 19:36 | SUR.PHASEII ---
Discontinued IVF per Dr. Carvalho and gave IV Lasix.
--- NOTE | 2025-01-13 19:54 | P.CONIM_ITS ---
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 * proBNP 746 * Will check respiratory panel for influenza a and B, RSV, COVID considering she has had a nonproductive cough and sore throat for the last few days * will get chest x-ray in the morning (2) Chronic obstructive pulmonary disease: Code(s): J44.9 - Chronic obstructive pulmonary disease, unspecified Status: Acute Assessment and Plan: see above plan of care (3) Coronary artery disease: Code(s): I25.10 - Atherosclerotic heart disease of picayune coronary artery without angina pectoris Status: Acute Assessment and Plan: * history of coronary artery disease with stent placement * continue cardiac monitoring * patient had a nuclear stress test and a PET myocardial perfusion imaging recently which were abnormal * status post cardiac catheterization today with Dr. Carvalho. LAD showed 40-50% stenosis, RCA 30-40% stenosis. This was for cardiac clearance for an upcoming hernia repair surgery. * cardiology primary this admission * continue rosuvastatin and Plavix * continue neuro checks to right radial puncture site (4) Stage 3a chronic kidney disease: Code(s): N18.31 - Chronic kidney disease, stage 3a Status: Acute Assessment and Plan: * labs today showed a creatinine of 1.36, EGFR 39 * baseline creatinine appears to trend between 1.17-1.22, EGFR ranging 44-46 * continue to trend (5) Paroxysmal atrial fibrillation: Code(s): I48.0 - Paroxysmal atrial fibrillation Status: Acute Assessment and Plan: * continue carvedilol * Coumadin on hold for today due to cardiac catheterization * INR 1.1 today (6) Essential hypertension: Code(s): I10 - Essential (primary) hypertension Status: Acute Assessment and Plan: * blood pressure ranging 116/86 to 145/73 * continue felodipine and Imdur (7) Hypothyroidism: Code(s): E03.9 - Hypothyroidism, unspecified Status: Acute Assessment and Plan: * continue Synthroid * last TSH was 0.543 on 12/16/2023 * will check this admission (8) Anemia: Code(s): D64.9 - Anemia, unspecified Status: Acute Assessment and Plan: * hemoglobin 9.9 * appears chronic * iron 46, ferritin 65.20, vitamin B12 864 on 11/29/24 * TSH was 0.543 on 12/16/2023 * will check folate as a was low at 2.4 on 08/17/2022, currently on folic acid supplement (9) GERD (gastroesophageal reflux disease): Code(s): K21.9 - Gastro-esophageal reflux disease without esophagitis Status: Acute Assessment and Plan: * start Protonix HPI Date of Consult Consult date: 01/13/25 Requesting Physician: Rah Carvalho MD Primary Care Provider: Ricardo Freeman DO Consult Narrative Narrative: Iza Gayle is a 69 year old female with CAD with coronary stents, COPD, CKD stage 3, AAA, DVT, paroxysmal atrial fibrillation, PE, HTN, GERD, anxiety, GOUT, JANNY, migraines, hypothyroidism, PVD, former smoker who presented originally for an outpatient heart catheterization with Dr. Carvalho as a preop cardiac work up for hernia repair surgery. Her heart catheterization shown LAD 40-50% stenosis, RCA with 30-40% stenosis. Relatively unremarkable catheterization. In recovery patient became increasing short of breath with desaturation in the mid 80's. She was placed on 2L NC, given a Duoneb breathing treatment, and 40 mg IV push Lasix while in recovery. Patient reports that she has had a sore throat and cough for a couple of days. She denies any fever, body aches, nausea, vomiting, diarrhea, chest pain. She denies any sick contacts. We were consulted for medical management while inpatient. Review of Systems 2 Review of Systems: All systems reviewed & are unremarkable except as noted in HPI and below PMFSH Past Medical History Medical History Hunner's ulcer Coronary artery disease Chronic obstructive pulmonary disease Chronic kidney disease, stage 3 Abdominal aortic aneurysm mild dilatation of the distal aorta measuring 3.[address] scan in November 2024 Hypercholesterolemia Deep venous thrombosis (2014) Chronic anticoagulation Paroxysmal atrial fibrillation Essential hypertension Gastro-esophageal reflux disease without esophagitis Pulmonary embolism (2014) History of tobacco abuse Anxiety Gout Osteoporosis Arthritis Cancer of left kidney status post left nephrectomy Ventral hernia Hemorrhoids Sleep apnea does not use CPAP Migraine Glaucoma Hypothyroidism Peripheral vascular disease, unspecified Surgical History Surgical History History of right breast biopsy History of open reduction and internal fixation (ORIF) procedure repair of bilateral wrist and left foot fractures History of cystoscopy History of hernia repair History of vascular surgery bifemoral bypass left femoral and popliteal stents History of ventral hernia repair History of right shoulder replacement History of cholecystectomy History of appendectomy History of left nephrectomy History of splenectomy retroperitoneal fibrosis History of tubal ligation History of cataract extraction History of coronary artery stent placement (2014) Hx of foot surgery History of hysterectomy Family History Family History Mother Family history of Alzheimer's disease, Onset Age: 82 Sibling Family history of diabetes mellitus in first degree relative Diabetes mellitus Family history of congenital heart disease Father Family history of emphysema Family history of congenital heart disease Other Hypertension Social History Social History Social History: Surrogate medical decision maker: Amrit Gallardo, son. Code status: Full code. Smoking packs per day: 0.5 Smoking cigarettes per day: 10.0 Years smoked: 30 Smoking pack-years: 15.00 Smoking status: Former smoker Tobacco type: cigarettes Second hand tobacco smoke exposure: No Smoking end date: 11/13/14 Additional smoking assessment comments: quit 2013 Alcohol intake: never Substance use: never Substance use type: does not use Do You Feel Safe in your Home?: Yes Lack of Transportation: No Lack of Food: Never True Current Housing: I Have Housing Concerned About Future Housing: No Difficulty Paying Gas/Electric Bills: No Difficulty Paying for Meds: No Currently Unemployed: No Education: High School Diploma/GED Difficulty w/ Childcare or Family Care: No Living arrangements: with family Additional living arrangements comments: Son Occupation/Education: retired Gender identity (if verbalized by the patient): Female Spiritual care concerns: No Meds Home Medications and Allergies Home Medications ?Medication ?Instructions ?Recorded ?Confirmed ?Type clopidogrel 75 mg tablet (Plavix) 75 mg PO QAM 12/02/19 01/13/25 History nitroglycerin 0.4 mg sublingual 0.4 mg sublingual Q5M PRN Chest 12/02/19 01/10/25 History tablet Pain oxybutynin chloride 15 mg 15 mg PO DAILY 12/02/19 01/10/25 History tablet,extended release 24 hr ranolazine 500 mg tablet,extended 500 mg PO BID 03/24/21 01/10/25 History release,12 hr rosuvastatin 40 mg tablet 40 mg PO DAILY 05/09/23 01/13/25 History zoledronic acid 5 mg/100 mL in 1 ea IV DIRECTED 12/11/23 01/10/25 History mannitol 5 %-water intravenous piggybck methenamine hippurate 1 gram tablet 1 g PO BID 02/06/24 01/10/25 History felodipine 10 mg tablet,extended 10 mg PO QAM #90 tabs 04/16/24 01/10/25 Rx release 24 hr Stiolto Respimat 2.5 mcg-2.5 See Rx Instructions .Route 05/01/24 01/10/25 Rx mcg/actuation solution for .COMPLEX #12 grams inhalation (tiotropium-olodaterol) folic acid 1 mg tablet 1 mg PO DAILY #90 tabs 05/22/24 01/10/25 Rx levothyroxine 88 mcg tablet 88 mcg PO QAM #90 tabs 05/22/24 01/13/25 Rx albuterol sulfate 90 mcg/actuation 1 - 2 inh inhalation Q4-6H PRN 06/07/24 01/10/25 Rx aerosol inhaler shortness of breath or wheezing #8.5 grams warfarin 3 mg tablet See Rx Instructions .Route 11/22/24 01/10/25 Rx .COMPLEX #45 tabs isosorbide mononitrate 30 mg 30 mg PO DAILY 11/25/24 01/13/25 History tablet,extended release 24 hr carvedilol 25 mg tablet 25 mg PO Q12H #180 tabs 12/19/24 01/13/25 Rx acetaminophen 325 mg capsule 650 mg PO Q6H PRN pain 01/10/25 01/10/25 History lansoprazole 15 mg capsule,delayed 15 mg PO DAILY PRN acid reflux 01/10/25 01/10/25 History release Allergies Allergy/AdvReac Type Severity Reaction Status Date / Time No Known Allergies Allergy Verified 01/13/25 09:11 Vital Signs Vital Signs - 24 hr 01/13/25 09:15 01/13/25 13:30 01/13/25 13:45 Temperature 99.0 F Pulse Rate 78 71 68 Respiratory Rate 16 18 14 Blood Pressure 138/68 136/68 128/53 L Pulse Oximetry 95 88 L 95 Oxygen Delivery Room Air Room Air Nasal Cannula Oxygen Flow Rate 3 Fraction of Inspired Oxygen 01/13/25 14:00 01/13/25 14:15 01/13/25 14:30 Temperature Pulse Rate 73 67 71 Respiratory Rate 16 20 20 Blood Pressure 151/61 H 113/66 128/57 L Pulse Oximetry 94 93 95 Oxygen Delivery Nasal Cannula Nasal Cannula Nasal Cannula Oxygen Flow Rate 3 2 2 Fraction of Inspired Oxygen 01/13/25 14:45 01/13/25 15:00 01/13/25 15:15 Temperature Pulse Rate 75 70 68 Respiratory Rate 22 H Blood Pressure 110/62 134/72 126/66 Pulse Oximetry 90 92 94 Oxygen Delivery Nasal Cannula Nasal Cannula Nasal Cannula Oxygen Flow Rate 2 2 2 Fraction of Inspired Oxygen 01/13/25 15:30 01/13/25 15:45 01/13/25 16:00 Temperature Pulse Rate 73 80 72 Respiratory Rate 16 20 19 Blood Pressure 133/63 135/69 139/64 Pulse Oximetry 92 94 93 Oxygen Delivery Nasal Cannula Nasal Cannula Nasal Cannula Oxygen Flow Rate 2 2 2 Fraction of Inspired Oxygen 01/13/25 16:15 01/13/25 16:30 01/13/25 16:45 Temperature Pulse Rate 70 75 76 Respiratory Rate 19 21 H 20 Blood Pressure 128/67 140/67 139/67 Pulse Oximetry 93 93 88 L Oxygen Delivery Nasal Cannula Nasal Cannula Room Air Oxygen Flow Rate 2 2 Fraction of Inspired Oxygen 01/13/25 17:00 01/13/25 17:04 01/13/25 17:04 Temperature Pulse Rate 74 72 Respiratory Rate 22 H 18 Blood Pressure 148/84 H Pulse Oximetry 89 L 87 L Oxygen Delivery Room Air Room Air Oxygen Flow Rate Fraction of Inspired Oxygen 21 01/13/25 17:11 01/13/25 17:11 01/13/25 17:15 Temperature Pulse Rate 71 71 Respiratory Rate 20 20 Blood Pressure 116/97 H Pulse Oximetry 100 98 Oxygen Delivery Room Air Nasal Cannula Oxygen Flow Rate 2 Fraction of Inspired Oxygen 21 01/13/25 17:30 01/13/25 17:55 01/13/25 17:55 Temperature Pulse Rate 78 71 Respiratory Rate 21 H 20 Blood Pressure 136/96 H Pulse Oximetry 88 L 89 L Oxygen Delivery Room Air Room Air Oxygen Flow Rate Fraction of Inspired Oxygen 21 01/13/25 18:00 01/13/25 18:05 01/13/25 18:05 Temperature Pulse Rate 77 74 Respiratory Rate 22 H 20 Blood Pressure 145/73 H Pulse Oximetry 99 100 Oxygen Delivery Nasal Cannula Room Air Oxygen Flow Rate 2 Fraction of Inspired Oxygen 21 01/13/25 18:30 Temperature Pulse Rate 81 Respiratory Rate 21 H Blood Pressure 116/86 Pulse Oximetry 94 Oxygen Delivery Nasal Cannula Oxygen Flow Rate 2 Fraction of Inspired Oxygen Exam 2 Narrative: General: In no acute distress, well nourished Head: atraumatic, no encephalopathy Eyes: PERRLA, sclera clear ENT: moist mucous membranes, nasal passages clear, reports sore throat Neck: supple, no JVD, no adenopathy, trachea midline Cardiac: Normal S1 and S2. RRR, No murmur, gallops or friction rubs, peripheral pulses intact. Respiratory: Lungs clear to auscultation, no adventitious lung sounds, currently on 4 L nasal cannula, no acute respiratory distress seen or use of accessory muscles, nonproductive cough Gastrointestinal: soft, non-distended, non-tender, normoactive bowel sounds. : voiding without difficulty. Extremities: moves all extremities well, no edema Skin: right radial puncture site with dressing an arm board in place Neuro: Alert and oriented x4, cranial nerves intact, no neuro deficits. Psych: normal mood, normal affect, interactive Results Labs 01/13/25 09:17 01/13/25 09:17 Labs: Short CBC 01/13/25 Range/Units 09:17 WBC 10.3 H (4.5-10.0) K/mm3 Hgb 9.9 L (12.0-15.0) g/dL Hct 30.2 L (37.0-47.0) % Plt Count 240 D (150-375) k/mm3 BMP 01/13/25 09:17 Sodium 139 Potassium 4.5 Chloride 109 H Carbon Dioxide 17 L BUN 22 H Creatinine 1.36 H Glucose 112 H Calcium 8.4
[2025-01-13 21:26] LABS: NT Pro B Type Natriuretic Pept 746 pg/mL (19.9-100)
[2025-01-13 21:47] LABS: Thyroid Stimulating Hormone 0.311 uIU/mL (0.465-4.680)
[2025-01-13 22:23] LABS: Folic Acid > 20.0 ng/mL (2.76->20)
[2025-01-13] MEDS: RANOLAZINE 500 MG TAB.ER.12H PO (22:56)
[2025-01-13] MEDS: ACETAMINOPHEN 325 MG TABLET 650 MG PO (22:56)
[2025-01-13] MEDS: carvediloL 25 MG TABLET PO (22:57)
--- NOTE | 2025-01-13 23:00 | PC.NURSE ---
patient desat with activity. increased O2 to 4L. Hospitalist aware
[2025-01-13 23:19] LABS: Influenza A QL RT-PCR Positive (Negative); Influenza B QL RT-PCR Negative (Negative); RSV RNA, RT-PCR Negative (Negative); SARS-CoV-2 RNA PCR Negative (Negative)
[2025-01-14] VITALS (24 sets, daily range): BP systolic 104–146; BP diastolic 48–69; PULSE 71–95; RESP 16–24; TEMP 36.4–37.2; O2SAT 87–99
[2025-01-14] MEDS: OSELTAMIVIR PHOSPHATE 30 MG CAPSULE PO ×3 (01:53→21:04)
--- NOTE | 2025-01-14 05:14 | PCRCNOTE ---
Patient refused both 1999 and 199 updraft treatments due to wanting to sleep and pt did not feel as if she needed the treatments.
[2025-01-14] MEDS: LEVOTHYROXINE SODIUM 88 MCG TABLET PO (05:55)
[2025-01-14 06:14] LABS: Basophils Percent Auto 0.2 % (0.2-1.2); Hematocrit 33.2 % (37.0-47.0); Hemoglobin 10.9 g/dL (12.0-15.0); Immature Granulocyte Absolute 0.04 K/mm3 (0.00-0.031); Immature Granulocyte Percent A 0.6 % (0-0.5); Lymphocytes Absolute Auto 1.26 K/mm3 (0.9-3.2); Lymphocytes Percent Auto 18.9 % (18.3-44.2); Mean Corpuscular HGB Conc 32.8 g/dl (32-36); Mean Corpuscular Hemoglobin 31.1 pg (26-34); Mean Corpuscular Volume 94.6 fl (80-100); Mean Platelet Volume 9.7 fl (7.4-10.4); Monocytes Absolute Auto 0.3 K/mm3 (0.1-0.6); Monocytes Percent Auto 4.4 % (2.6-8.5); Neutrophils Absolute Auto 5.1 K/mm3 (1.3-6.7); Neutrophils Percent Auto 75.9 % (45.5-73.1); Platelet Count Result 240 k/mm3 (150-375); Red Blood Count 3.51 M/mm3 (4.2-5.4); Red Cell Distribution Width 19.1 % (11.5-14.5); White Blood Count 6.7 K/mm3 (4.5-10.0)
[2025-01-14 06:21] LABS: Alanine Aminotransferase 19 U/L (6-35); Albumin Level 3.7 g/dL (3.5-5.1); Alkaline Phosphatase 99 U/L (38-126); Anion Gap 14 mmol/L (4-12); Aspartate Amino Transferase 24 U/L (14-36); Bilirubin,Total 0.5 mg/dL (0.2-1.3); Blood Urea Nitrogen 20 mg/dL (7-17); Calcium 8.1 mg/dL (8.4-10.2); Carbon Dioxide 18 mmol/L (22-30); Chloride 106 mmol/L (98-107); Estimated CRCL calculation 36 ml/min; Estimated Glomerular Filt Rate 42; Glucose 142 mg/dL (65-110); Magnesium 1.7 mg/dL (1.6-2.3); Potassium 3.3 mmol/L (3.4-5.0); Sodium 138 mmol/L (137-145)
--- NOTE | 2025-01-14 07:15 | P.PNIM_ITS ---
Progress Note: A&P Assessment and Plan (1) Pulmonary embolism: Code(s): I26.99 - Other pulmonary embolism without acute cor pulmonale Status: Acute Assessment and Plan: 3/4 rapid response for acute hypoxia CTA showing Pulmonary embolism is seen in the branches of the right and left lower and upper lobes arteries Echo pending to check for right heart strain Patient placed on heparin drip Monitor cardiac catheterization access site for hematoma Wean oxygen to SpO2 of 90% After CT patient lost her voice however she does not have stridor will treat for possible allergy and monitor closely, she has had contrast in the past without incident (2) Influenza A: Code(s): J10.1 - Influenza due to other identified influenza virus with other respiratory manifestations Status: Acute Assessment and Plan: Guaifenesin Tamiflu Tylenol (3) Pneumonia: Code(s): J18.9 - Pneumonia, unspecified organism Status: Acute Assessment and Plan: Left lower lobe pneumonia Started on Rocephin and azithromycin Breathing treatments Incentive spirometer (4) Acute respiratory failure with hypoxia: Code(s): J96.01 - Acute respiratory failure with hypoxia Status: Acute Assessment and Plan: * currently on 4 L nasal cannula, continue to wean for an O2 sat greater than 92% * continue DuoNeb breathing treatments q.6 hour * patient was given 1 dose of Lasix 40 mg IV 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 * proBNP 746 (5) Chronic obstructive pulmonary disease: Code(s): J44.9 - Chronic obstructive pulmonary disease, unspecified Status: Acute Assessment and Plan: see above plan of care likely to exacerbation On antibiotics IV Solu-Medrol x1 Oral prednisone starting tomorrow (6) Coronary artery disease: Code(s): I25.10 - Atherosclerotic heart disease of [place] coronary artery without angina pectoris Status: Acute Assessment and Plan: * history of coronary artery disease with stent placement * continue cardiac monitoring * patient had a nuclear stress test and a PET myocardial perfusion imaging recently which were abnormal * status post cardiac catheterization today with Dr. Carvalho. LAD showed 40-50% stenosis, RCA 30-40% stenosis. This was for cardiac clearance for an upcoming hernia repair surgery. * cardiology primary this admission * continue rosuvastatin and Plavix * continue vascular checks to right radial puncture site (7) Stage 3a chronic kidney disease: Code(s): N18.31 - Chronic kidney disease, stage 3a Status: Acute Assessment and Plan: * labs today showed a creatinine of 1.36, EGFR 39 * baseline creatinine appears to trend between 1.17-1.22, EGFR ranging 44-46 * continue to trend (8) Paroxysmal atrial fibrillation: Code(s): I48.0 - Paroxysmal atrial fibrillation Status: Acute Assessment and Plan: * continue carvedilol * Coumadin on hold for today due to cardiac catheterization * INR 1.1 today * Deferring to Cardiology 1 to restart (9) Essential hypertension: Code(s): I10 - Essential (primary) hypertension Status: Acute Assessment and Plan: * blood pressure ranging 116/86 to 145/73 * continue felodipine and Imdur (10) Hypothyroidism: Code(s): E03.9 - Hypothyroidism, unspecified Status: Acute Assessment and Plan: * continue Synthroid * last TSH was 0.543 on 12/16/2023 TSH low (11) Anemia: Code(s): D64.9 - Anemia, unspecified Status: Acute Assessment and Plan: * hemoglobin 9.9 * appears chronic * iron 46, ferritin 65.20, vitamin B12 864 on 11/29/24 * TSH was 0.543 on 12/16/2023 Folate over 20, will hold while in hospital, patient could switch to every other day (12) GERD (gastroesophageal reflux disease): Code(s): K21.9 - Gastro-esophageal reflux disease without esophagitis Status: Acute Assessment and Plan: * start Protonix Time Spent With Patient Time with patient: Greater than 35 minutes Subjective Date/time seen: 01/14/25 07:15 Interval history: 69 year old female with CAD with coronary stents, COPD, CKD stage 3, AAA, DVT, paroxysmal atrial fibrillation, PE, HTN, GERD, anxiety, GOUT, JANNY, migraines, hypothyroidism, PVD, former smoker who presented originally for an outpatient heart catheterization with Dr. Carvalho as a preop cardiac work up for hernia repair surgery. Hospitalist team consulted for acute respiratory failure with hypoxia secondary to flu A. Chest x-ray shows left lower lobe pneumonia started on antibiotics in a.m.. Patient had increasing oxygen demands overnight from 2 L to 4, however today she is progressively had hired oxygen demands and ended up having a rapid response (see critical care note for details) for hypoxia placed on on non breather CTA showed Pulmonary embolism is seen in the branches of the right and left lower and upper lobes arteries. And bilateral pneumonia. Review of Systems Review of Systems: All systems reviewed & are unremarkable except as noted in HPI and below Exam Narrative: General: Fatigue, tachypneic, ill-appearing Head: atraumatic, no encephalopathy Eyes: PERRLA, sclera clear ENT: moist mucous membranes, nasal passages clear, reports sore throat Neck: supple, no JVD, no adenopathy, trachea midline Cardiac: Normal S1 and S2. RRR, No murmur, gallops or friction rubs, peripheral pulses intact. Respiratory: Lungs clear to auscultation, no adventitious lung sounds, nonproductive cough, tachypneic Gastrointestinal: soft, non-distended, non-tender, normoactive bowel sounds. : voiding without difficulty. Extremities: moves all extremities well, no edema Skin: right radial puncture site with dressing an arm board in place Neuro: Alert and oriented x4, cranial nerves intact, no neuro deficits. Psych: normal mood, normal affect, interactive Objective Data Vital Signs Vital Signs: Vital Signs - 24 hr 01/13/25 09:15 01/13/25 13:30 01/13/25 13:45 Temperature 99.0 F Pulse Rate 78 71 68 Respiratory Rate 16 18 14 Blood Pressure 138/68 136/68 128/53 L Pulse Oximetry 95 88 L 95 Oxygen Delivery Room Air Room Air Nasal Cannula Oxygen Flow Rate 3 Fraction of Inspired Oxygen 01/13/25 14:00 01/13/25 14:15 01/13/25 14:30 Temperature Pulse Rate 73 67 71 Respiratory Rate 16 20 20 Blood Pressure 151/61 H 113/66 128/57 L Pulse Oximetry 94 93 95 Oxygen Delivery Nasal Cannula Nasal Cannula Nasal Cannula Oxygen Flow Rate 3 2 2 Fraction of Inspired Oxygen 01/13/25 14:45 01/13/25 15:00 01/13/25 15:15 Temperature Pulse Rate 75 70 68 Respiratory Rate 22 H Blood Pressure 110/62 134/72 126/66 Pulse Oximetry 90 92 94 Oxygen Delivery Nasal Cannula Nasal Cannula Nasal Cannula Oxygen Flow Rate 2 2 2 Fraction of Inspired Oxygen 01/13/25 15:30 01/13/25 15:45 01/13/25 16:00 Temperature Pulse Rate 73 80 72 Respiratory Rate 16 20 19 Blood Pressure 133/63 135/69 139/64 Pulse Oximetry 92 94 93 Oxygen Delivery Nasal Cannula Nasal Cannula Nasal Cannula Oxygen Flow Rate 2 2 2 Fraction of Inspired Oxygen 01/13/25 16:15 01/13/25 16:30 01/13/25 16:45 Temperature Pulse Rate 70 75 76 Respiratory Rate 19 21 H 20 Blood Pressure 128/67 140/67 139/67 Pulse Oximetry 93 93 88 L Oxygen Delivery Nasal Cannula Nasal Cannula Room Air Oxygen Flow Rate 2 2 Fraction of Inspired Oxygen 01/13/25 17:00 01/13/25 17:04 01/13/25 17:04 Temperature Pulse Rate 74 72 Respiratory Rate 22 H 18 Blood Pressure 148/84 H Pulse Oximetry 89 L 87 L Oxygen Delivery Room Air Room Air Oxygen Flow Rate Fraction of Inspired Oxygen 21 01/13/25 17:11 01/13/25 17:11 01/13/25 17:15 Temperature Pulse Rate 71 71 Respiratory Rate 20 20 Blood Pressure 116/97 H Pulse Oximetry 100 98 Oxygen Delivery Room Air Nasal Cannula Oxygen Flow Rate 2 Fraction of Inspired Oxygen 21 01/13/25 17:30 01/13/25 17:55 01/13/25 17:55 Temperature Pulse Rate 78 71 Respiratory Rate 21 H 20 Blood Pressure 136/96 H Pulse Oximetry 88 L 89 L Oxygen Delivery Room Air Room Air Oxygen Flow Rate Fraction of Inspired Oxygen 21 01/13/25 18:00 01/13/25 18:05 01/13/25 18:05 Temperature Pulse Rate 77 74 Respiratory Rate 22 H 20 Blood Pressure 145/73 H Pulse Oximetry 99 100 Oxygen Delivery Nasal Cannula Room Air Oxygen Flow Rate 2 Fraction of Inspired Oxygen 21 01/13/25 18:30 01/13/25 20:00 01/13/25 20:00 Temperature 97.9 F Pulse Rate 81 90 Respiratory Rate 21 H 20 Blood Pressure 116/86 173/71 H Pulse Oximetry 94 94 90 Oxygen Delivery Nasal Cannula Nasal Cannula Oxygen Flow Rate 2 2 Fraction of Inspired Oxygen 01/13/25 20:00 01/13/25 22:02 01/13/25 22:57 Temperature Pulse Rate 83 92 Respiratory Rate Blood Pressure Pulse Oximetry 91 Oxygen Delivery Nasal Cannula Oxygen Flow Rate 4 Fraction of Inspired Oxygen 01/14/25 00:00 01/14/25 00:00 01/14/25 00:44 Temperature Pulse Rate 91 89 Respiratory Rate Blood Pressure 146/69 H Pulse Oximetry Oxygen Delivery Oxygen Flow Rate Fraction of Inspired Oxygen 01/14/25 04:00 01/14/25 06:00 Temperature 98.9 F Pulse Rate 95 91 Respiratory Rate 22 H Blood Pressure 139/68 Pulse Oximetry 93 Oxygen Delivery Oxygen Flow Rate Fraction of Inspired Oxygen Intake/Output Intake/Output: Intake & Output 01/11/25 01/12/25 01/13/25 01/14/25 23:59 23:59 23:59 23:59 Intake Total 490 Balance 490 Meds/Results Medications: Active Medications Generic Name Dose Route Start Last Admin Trade Name Freq PRN Reason Stop Dose Admin Acetaminophen 650 mg 01/13/25 20:15 01/13/25 22:56 Acetaminophen 325 Mg Tablet PO 650 mg Q4H PRN Administration Mild Pain (1-3) or Fever Albuterol/Ipratropium 3 ml 01/13/25 20:00 01/14/25 05:12 Ipratropium 0.5 Mg/Albuterol Sulfate 2.5 Mg Ampul.Neb 3 Ml INHALATION Not Given Q6HRT [facility] Benzocaine 1 lozenge 01/14/25 00:38 Benzocaine/Menthol (*Bkc) 18 Ea Lozenge PO PRN PRN Sore Throat Carvedilol 25 mg 01/13/25 21:00 01/13/25 22:57 Carvedilol 25 Mg Tablet PO 25 mg Q12HR [facility] Administration Clopidogrel Bisulfate 75 mg 01/14/25 09:00 Clopidogrel Bisulfate 75 Mg Tablet PO QAM [facility] Felodipine 10 mg 01/14/25 09:00 Felodipine 5 Mg Tab Cr PO QAM [facility] Folic Acid 1 mg 01/14/25 09:00 Folic Acid 1 Mg Tablet PO DAILY [facility] Guaifenesin 1,200 mg 01/14/25 09:00 Guaifenesin 12 Hr 600 Mg Tabcr PO Q12HR [facility] Isosorbide Mononitrate 30 mg 01/14/25 09:00 Isosorbide Mononitrate 30 Mg Tab.Er.24h PO DAILY [facility] Levothyroxine Sodium 88 mcg 01/14/25 06:30 01/14/25 05:55 Levothyroxine Sodium 88 Mcg Tablet PO 88 mcg DAILY@0630 [facility] Administration Ondansetron HCl 4 mg 01/13/25 20:15 Ondansetron Inj 4 Mg/2 Ml Vial IV PUSH Q6H PRN Nausea And Vomiting Oseltamivir Phosphate 30 mg 01/14/25 00:45 01/14/25 01:53 Oseltamivir Phosphate 30 Mg Capsule PO 01/19/25 00:44 30 mg Q12HR [facility] Administration Oxybutynin Chloride 15 mg 01/14/25 09:00 Oxybutynin Chloride Xl 5 Mg Tab.Er.24 PO DAILY [facility] Pantoprazole Sodium 40 mg 01/14/25 09:00 Pantoprazole 40 Mg Tablet PO QAM [facility] Ranolazine 500 mg 01/13/25 21:00 01/13/25 22:56 Ranolazine 500 Mg Tab.Er.12h PO 500 mg Q12HR [facility] Administration Rosuvastatin Calcium 40 mg 01/14/25 09:00 Rosuvastatin 20 Mg Tablet PO DAILY [facility] Radiology Results: ITS Impressions Chest X-Ray 01/14/25 06:22 Impression: Left lower lobe pneumonia. Probable moderate hiatal hernia. Labs Labs: Laboratory Results - last 24 hr 01/13/25 01/13/25 01/13/25 09:17 20:57 22:24 WBC 10.3 H RBC 3.21 L Hgb 9.9 L Hct 30.2 L MCV 94.1 MCH 30.8 MCHC 32.8 RDW 19.1 H Plt Count 240 D MPV 10.1 Immature Gran % (Auto) 0.4 Neut % (Auto) 75.3 H Lymph % (Auto) 18.2 L [place] % (Auto) 5.9 Eos % (Auto) 0.1 Baso % (Auto) 0.1 L Lymph # (Auto) 1.87 [place] # (Auto) 0.6 Eos # (Auto) 0.0 Baso # (Auto) 0.0 Abs Immat Gran (auto) 0.04 H Absolute Neuts (auto) 7.7 H Absolute Nucleated RBC 0.000 Nucleated RBC % 0.0 PT 14.6 INR 1.1 Sodium 139 Potassium 4.5 Chloride 109 H Carbon Dioxide 17 L Anion Gap 13 H BUN 22 H Creatinine 1.36 H Estim Creat Clear Calc 33 Estimated GFR 39 L Glucose 112 H Calcium 8.4 Magnesium Total Bilirubin AST ALT Alkaline Phosphatase NT-Pro-B Natriuret Pep 746 H Total Protein Albumin Folate > 20.0 H TSH 0.311 L Influenza A (RT-PCR) Positive A Influenza B (RT-PCR) Negative RSV (RT-PCR) Negative SARS-CoV-2 RNA (RT-PCR) Negative 01/14/25 05:14 WBC 6.7 RBC 3.51 L Hgb 10.9 L Hct 33.2 L MCV 94.6 MCH 31.1 MCHC 32.8 RDW 19.1 H Plt Count 240 MPV 9.7 Immature Gran % (Auto) 0.6 H Neut % (Auto) 75.9 H Lymph % (Auto) 18.9 [place] % (Auto) 4.4 Eos % (Auto) 0.0 Baso % (Auto) 0.2 Lymph # (Auto) 1.26 [place] # (Auto) 0.3 Eos # (Auto) 0.0 Baso # (Auto) 0.0 Abs Immat Gran (auto) 0.04 H Absolute Neuts (auto) 5.1 Absolute Nucleated RBC 0.000 Nucleated RBC % 0.0 PT INR Sodium 138 Potassium 3.3 L Chloride 106 Carbon Dioxide 18 L Anion Gap 14 H BUN 20 H Creatinine 1.27 H Estim Creat Clear Calc 36 Estimated GFR 42 L Glucose 142 H Calcium 8.1 L Magnesium 1.7 Total Bilirubin 0.5 AST 24 ALT 19 Alkaline Phosphatase 99 NT-Pro-B Natriuret Pep Total Protein 7.0 Albumin 3.7 Folate TSH Influenza A (RT-PCR) Influenza B (RT-PCR) RSV (RT-PCR) SARS-CoV-2 RNA (RT-PCR) ABG ABG results: ABG shows severe hypoxia Quality VTE Prophylaxis VTE prophylaxis: mechanical ordered If No VTE Prophylaxis Answer both mechanical and pharmacologic: Reason no pharmacologic proph: medical contraindication (Deferring to Cardiology when to restart)
[2025-01-14] MEDS: guaiFENesin 12 HR 600 MG TABCR 1200 MG PO ×2 (08:45→21:04)
[2025-01-14] MEDS: ROSUVASTATIN 20 MG TABLET 40 MG PO (08:45)
[2025-01-14] MEDS: oxyBUTYnin CHLORIDE XL 5 MG TAB.ER.24 15 MG PO (08:45)
[2025-01-14] MEDS: ISOSORBIDE MONONITRATE 30 MG TAB.ER.24H PO (08:45)
[2025-01-14] MEDS: FELODIPINE 5 MG TAB CR 10 MG PO (08:45)
[2025-01-14] MEDS: carvediloL 25 MG TABLET PO ×2 (08:45→21:04)
[2025-01-14] MEDS: PANTOPRAZOLE 40 MG TABLET PO (08:45)
[2025-01-14] MEDS: RANOLAZINE 500 MG TAB.ER.12H PO ×2 (08:45→21:04)
[2025-01-14] MEDS: CLOPIDOGREL BISULFATE 75 MG TABLET PO (08:46)
--- NOTE | 2025-01-14 08:58 | P.PNCA_ITS ---
Progress Note: A&P Assessment and Plan (1) CAD (coronary artery disease): Qualifiers: Coronary Disease-Associated Artery/Lesion type: unspecified vessel or lesion type [place] vs. transplanted heart: [place] heart Associated angina: without angina Qualified Code(s): I25.10 - Atherosclerotic heart disease of [place] coronary artery without angina pectoris Code(s): I25.10 - Atherosclerotic heart disease of [place] coronary artery without angina pectoris Status: Acute Assessment and Plan: s/p radial cath yesterday demonstrating stable, nonobstructive coronary artery disease -Continue aggressive medical therapy and risk factor modification. (2) Pneumonia: Code(s): J18.9 - Pneumonia, unspecified organism Status: Acute Assessment and Plan: Management per hospitalist (3) Influenza A: Code(s): J10.1 - Influenza due to other identified influenza virus with other respiratory manifestations Status: Acute Assessment and Plan: Management per hospitalist Subjective Date/time seen: 01/14/25 08:58 Interval history: 69 year old female with CAD with coronary stents, COPD, CKD stage 3, AAA, DVT, paroxysmal atrial fibrillation, PE, HTN, GERD, anxiety, GOUT, JANNY, migraines, hypothyroidism, PVD, former smoker who presented originally for an outpatient heart catheterization with Dr. Carvalho as a preop cardiac work up for hernia repair surgery. She was admitted for respiratory failure and has been found to have influenza A and pneumonia. Continues to feel short of breath today. No chest pain. Exam Const: General: comfortable, no acute distress and tired appearing Orientation/consciousness: patient oriented x3 HENMT: Head: normal to inspection Eyes: General: appearance normal, both eyes and all related structures Pupils: Equal, round and reactive pupils present Neck: Neck: normal visual inspection, supple and no JVD Carotids: normal carotid upstroke Resp: Effort & Inspection: normal respiratory effort Auscultation: crackles Cardio: Rate: regular rate Rhythm: regular rhythm Heart sounds: S1 normal heart sound present, S2 normal heart sound present and no murmurs GI: Auscultation: normal bowel sounds Skin: General skin exam: normal color Neuro: General: patient oriented x3 Cranial nerves: Yes Equal, round and reactive pupils present Extrem: General: normal to inspection Other: R radial arterial access site free from hematoma. There is some ecchymosis noted. Radial pulse intact. Psych: Appearance: grossly normal Mental Status: mental status grossly normal Objective Data Vital Signs Vital Signs: Vital Signs - 24 hr 01/13/25 09:15 01/13/25 13:30 01/13/25 13:45 Temperature 37.2 C Pulse Rate 78 71 68 Respiratory Rate 16 18 14 Blood Pressure 138/68 136/68 128/53 L Pulse Oximetry 95 88 L 95 Oxygen Delivery Room Air Room Air Nasal Cannula Oxygen Flow Rate 3 Fraction of Inspired Oxygen 01/13/25 14:00 01/13/25 14:15 01/13/25 14:30 Temperature Pulse Rate 73 67 71 Respiratory Rate 16 20 20 Blood Pressure 151/61 H 113/66 128/57 L Pulse Oximetry 94 93 95 Oxygen Delivery Nasal Cannula Nasal Cannula Nasal Cannula Oxygen Flow Rate 3 2 2 Fraction of Inspired Oxygen 01/13/25 14:45 01/13/25 15:00 01/13/25 15:15 Temperature Pulse Rate 75 70 68 Respiratory Rate 22 H Blood Pressure 110/62 134/72 126/66 Pulse Oximetry 90 92 94 Oxygen Delivery Nasal Cannula Nasal Cannula Nasal Cannula Oxygen Flow Rate 2 2 2 Fraction of Inspired Oxygen 01/13/25 15:30 01/13/25 15:45 01/13/25 16:00 Temperature Pulse Rate 73 80 72 Respiratory Rate 16 20 19 Blood Pressure 133/63 135/69 139/64 Pulse Oximetry 92 94 93 Oxygen Delivery Nasal Cannula Nasal Cannula Nasal Cannula Oxygen Flow Rate 2 2 2 Fraction of Inspired Oxygen 01/13/25 16:15 01/13/25 16:30 01/13/25 16:45 Temperature Pulse Rate 70 75 76 Respiratory Rate 19 21 H 20 Blood Pressure 128/67 140/67 139/67 Pulse Oximetry 93 93 88 L Oxygen Delivery Nasal Cannula Nasal Cannula Room Air Oxygen Flow Rate 2 2 Fraction of Inspired Oxygen 01/13/25 17:00 01/13/25 17:04 01/13/25 17:04 Temperature Pulse Rate 74 72 Respiratory Rate 22 H 18 Blood Pressure 148/84 H Pulse Oximetry 89 L 87 L Oxygen Delivery Room Air Room Air Oxygen Flow Rate Fraction of Inspired Oxygen 21 01/13/25 17:11 01/13/25 17:11 01/13/25 17:15 Temperature Pulse Rate 71 71 Respiratory Rate 20 20 Blood Pressure 116/97 H Pulse Oximetry 100 98 Oxygen Delivery Room Air Nasal Cannula Oxygen Flow Rate 2 Fraction of Inspired Oxygen 21 01/13/25 17:30 01/13/25 17:55 01/13/25 17:55 Temperature Pulse Rate 78 71 Respiratory Rate 21 H 20 Blood Pressure 136/96 H Pulse Oximetry 88 L 89 L Oxygen Delivery Room Air Room Air Oxygen Flow Rate Fraction of Inspired Oxygen 21 01/13/25 18:00 01/13/25 18:05 01/13/25 18:05 Temperature Pulse Rate 77 74 Respiratory Rate 22 H 20 Blood Pressure 145/73 H Pulse Oximetry 99 100 Oxygen Delivery Nasal Cannula Room Air Oxygen Flow Rate 2 Fraction of Inspired Oxygen 21 01/13/25 18:30 01/13/25 20:00 01/13/25 20:00 Temperature 36.6 C Pulse Rate 81 90 Respiratory Rate 21 H 20 Blood Pressure 116/86 173/71 H Pulse Oximetry 94 94 90 Oxygen Delivery Nasal Cannula Nasal Cannula Oxygen Flow Rate 2 2 Fraction of Inspired Oxygen 01/13/25 20:00 01/13/25 22:02 01/13/25 22:57 Temperature Pulse Rate 83 92 Respiratory Rate Blood Pressure Pulse Oximetry 91 Oxygen Delivery Nasal Cannula Oxygen Flow Rate 4 Fraction of Inspired Oxygen 01/14/25 00:00 01/14/25 00:00 01/14/25 00:44 Temperature Pulse Rate 91 89 Respiratory Rate Blood Pressure 146/69 H Pulse Oximetry Oxygen Delivery Oxygen Flow Rate Fraction of Inspired Oxygen 01/14/25 04:00 01/14/25 06:00 01/14/25 08:39 Temperature 37.2 C 36.7 C Pulse Rate 95 91 95 Respiratory Rate 22 H 22 H Blood Pressure 139/68 120/56 L Pulse Oximetry 93 91 Oxygen Delivery Oxygen Flow Rate Fraction of Inspired Oxygen 01/14/25 08:45 01/14/25 08:45 01/14/25 08:45 Temperature Pulse Rate 95 95 93 Respiratory Rate 22 H Blood Pressure Pulse Oximetry 91 Oxygen Delivery Nasal Cannula Oxygen Flow Rate 4 Fraction of Inspired Oxygen Intake/Output Intake/Output: Intake & Output 01/11/25 01/12/25 01/13/25 01/14/25 23:59 23:59 23:59 23:59 Intake Total 490 Balance 490 Meds/Results Medications: Active Medications Generic Name Dose Route Start Last Admin Trade Name Freq PRN Reason Stop Dose Admin Acetaminophen 650 mg 01/13/25 20:15 01/13/25 22:56 Acetaminophen 325 Mg Tablet PO 650 mg Q4H PRN Administration Mild Pain (1-3) or Fever Albuterol/Ipratropium 3 ml 01/13/25 20:00 01/14/25 05:12 Ipratropium 0.5 Mg/Albuterol Sulfate 2.5 Mg Ampul.Neb 3 Ml INHALATION Not Given Q6HRT [facility] Benzocaine 1 lozenge 01/14/25 00:38 Benzocaine/Menthol (*Bkc) 18 Ea Lozenge PO PRN PRN Sore Throat Carvedilol 25 mg 01/13/25 21:00 01/14/25 08:45 Carvedilol 25 Mg Tablet PO 25 mg Q12HR [facility] Administration Clopidogrel Bisulfate 75 mg 01/14/25 09:00 01/14/25 08:46 Clopidogrel Bisulfate 75 Mg Tablet PO 75 mg QAM [facility] Administration Felodipine 10 mg 01/14/25 09:00 01/14/25 08:45 Felodipine 5 Mg Tab Cr PO 10 mg QAM [facility] Administration Guaifenesin 1,200 mg 01/14/25 09:00 01/14/25 08:45 Guaifenesin 12 Hr 600 Mg Tabcr PO 1,200 mg Q12HR [facility] Administration Ceftriaxone Sodium 1 gm in 50 mls @ 100 mls/hr 01/14/25 08:00 01/14/25 08:41 Rocephin 1 Gm/Ns 50 Ml IVPB 100 mls/hr QAM [facility] Administration Azithromycin 500 mg in 250 mls @ 250 mls/hr 01/14/25 09:00 Zithromax IVPB QAM [facility] Isosorbide Mononitrate 30 mg 01/14/25 09:00 01/14/25 08:45 Isosorbide Mononitrate 30 Mg Tab.Er.24h PO 30 mg DAILY [facility] Administration Levothyroxine Sodium 88 mcg 01/14/25 06:30 01/14/25 05:55 Levothyroxine Sodium 88 Mcg Tablet PO 88 mcg DAILY@0630 [facility] Administration Ondansetron HCl 4 mg 01/13/25 20:15 Ondansetron Inj 4 Mg/2 Ml Vial IV PUSH Q6H PRN Nausea And Vomiting Oseltamivir Phosphate 30 mg 01/14/25 00:45 01/14/25 01:53 Oseltamivir Phosphate 30 Mg Capsule PO 01/19/25 00:44 30 mg Q12HR [facility] Administration Oxybutynin Chloride 15 mg 01/14/25 09:00 01/14/25 08:45 Oxybutynin Chloride Xl 5 Mg Tab.Er.24 PO 15 mg DAILY [facility] Administration Pantoprazole Sodium 40 mg 01/14/25 09:00 01/14/25 08:45 Pantoprazole 40 Mg Tablet PO 40 mg QAM [facility] Administration Ranolazine 500 mg 01/13/25 21:00 01/14/25 08:45 Ranolazine 500 Mg Tab.Er.12h PO 500 mg Q12HR [facility] Administration Rosuvastatin Calcium 40 mg 01/14/25 09:00 01/14/25 08:45 Rosuvastatin 20 Mg Tablet PO 40 mg DAILY [facility] Administration Radiology Results: ITS Impressions Chest X-Ray 01/14/25 06:22 Impression: Left lower lobe pneumonia. Probable moderate hiatal hernia. Labs Labs: Laboratory Results - last 24 hr 01/13/25 01/13/25 01/13/25 09:17 20:57 22:24 WBC 10.3 H RBC 3.21 L Hgb 9.9 L Hct 30.2 L MCV 94.1 MCH 30.8 MCHC 32.8 RDW 19.1 H Plt Count 240 D MPV 10.1 Immature Gran % (Auto) 0.4 Neut % (Auto) 75.3 H Lymph % (Auto) 18.2 L [place] % (Auto) 5.9 Eos % (Auto) 0.1 Baso % (Auto) 0.1 L Lymph # (Auto) 1.87 [place] # (Auto) 0.6 Eos # (Auto) 0.0 Baso # (Auto) 0.0 Abs Immat Gran (auto) 0.04 H Absolute Neuts (auto) 7.7 H Absolute Nucleated RBC 0.000 Nucleated RBC % 0.0 PT 14.6 INR 1.1 Sodium 139 Potassium 4.5 Chloride 109 H Carbon Dioxide 17 L Anion Gap 13 H BUN 22 H Creatinine 1.36 H Estim Creat Clear Calc 33 Estimated GFR 39 L Glucose 112 H Calcium 8.4 Magnesium Total Bilirubin AST ALT Alkaline Phosphatase NT-Pro-B Natriuret Pep 746 H Total Protein Albumin Folate > 20.0 H TSH 0.311 L Influenza A (RT-PCR) Positive A Influenza B (RT-PCR) Negative RSV (RT-PCR) Negative SARS-CoV-2 RNA (RT-PCR) Negative 01/14/25 05:14 WBC 6.7 RBC 3.51 L Hgb 10.9 L Hct 33.2 L MCV 94.6 MCH 31.1 MCHC 32.8 RDW 19.1 H Plt Count 240 MPV 9.7 Immature Gran % (Auto) 0.6 H Neut % (Auto) 75.9 H Lymph % (Auto) 18.9 [place] % (Auto) 4.4 Eos % (Auto) 0.0 Baso % (Auto) 0.2 Lymph # (Auto) 1.26 [place] # (Auto) 0.3 Eos # (Auto) 0.0 Baso # (Auto) 0.0 Abs Immat Gran (auto) 0.04 H Absolute Neuts (auto) 5.1 Absolute Nucleated RBC 0.000 Nucleated RBC % 0.0 PT INR Sodium 138 Potassium 3.3 L Chloride 106 Carbon Dioxide 18 L Anion Gap 14 H BUN 20 H Creatinine 1.27 H Estim Creat Clear Calc 36 Estimated GFR 42 L Glucose 142 H Calcium 8.1 L Magnesium 1.7 Total Bilirubin 0.5 AST 24 ALT 19 Alkaline Phosphatase 99 NT-Pro-B Natriuret Pep Total Protein 7.0 Albumin 3.7 Folate TSH Influenza A (RT-PCR) Influenza B (RT-PCR) RSV (RT-PCR) SARS-CoV-2 RNA (RT-PCR)
[2025-01-14] MEDS: IPRATROPIUM 0.5 MG/ALBUTEROL SULFATE 2.5 MG AMPUL.NEB 3 ML INHALATION ×3 (09:09→21:09)
[2025-01-14] MEDS: AZITHROMYCIN 500 MG/NS 250 ML 500 MG/250 ML BAG 250 MG IVPB (10:59)
[2025-01-14 14:08] LABS: Alveolar/Arterial O2 Gradient 293.3 mmHg; Base Excess ABG -2.4 mEq/l (+/-2.0); Fractional Inspired Oxygen 52 %; HCO3 ABG 19.8 mEq/l (22.0-26.0); Oxygen Content ABG 12.9 %vol (16.0-22.0); PCO2 ABG 26.5 mmHg (35.0-45.0); PO2 FiO2 Ratio Arterial Blood 0.92 %; Total Hemoglobin 10.8 g/dL (12.0-18.0); pH ABG 7.492 (7.350-7.450)
[2025-01-14 14:12] LABS: Oxygen Saturation ABG 87.7 % (95.0-100.0); PO2 ABG 47.8 mmHg (80.0-100.0)
[2025-01-14 14:13] LABS: Device OTHER DEVICE; Modified Allen's Test Pass; Oxyhemoglobin 84.7 % THb (90.0-100.0); Site Drawn LEFT RADIAL
[2025-01-14 14:54] LABS: Hematocrit 30.3 % (37.0-47.0); Hemoglobin 9.8 g/dL (12.0-15.0); Mean Corpuscular HGB Conc 32.3 g/dl (32-36); Mean Corpuscular Hemoglobin 30.7 pg (26-34); Mean Platelet Volume 9.7 fl (7.4-10.4); Platelet Count Result 208 k/mm3 (150-375); Red Blood Count 3.19 M/mm3 (4.2-5.4); Red Cell Distribution Width 19.1 % (11.5-14.5); White Blood Count 10.3 K/mm3 (4.5-10.0)
[2025-01-14 15:03] LABS: Lactic Acid Reflex 1.9 mmol/L (0.7-2.0)
[2025-01-14 15:05] LABS: Alanine Aminotransferase 18 U/L (6-35); Albumin Level 3.3 g/dL (3.5-5.1); Alkaline Phosphatase 83 U/L (38-126); Anion Gap 13 mmol/L (4-12); Aspartate Amino Transferase 26 U/L (14-36); Bilirubin,Total 0.7 mg/dL (0.2-1.3); Blood Urea Nitrogen 24 mg/dL (7-17); Calcium 7.4 mg/dL (8.4-10.2); Carbon Dioxide 20 mmol/L (22-30); Chloride 104 mmol/L (98-107); Estimated CRCL calculation 33 ml/min; Estimated Glomerular Filt Rate 38; Glucose 127 mg/dL (65-110); Potassium 3.3 mmol/L (3.4-5.0); Sodium 137 mmol/L (137-145)
--- NOTE | 2025-01-14 15:05 | PM.CCN ---
Critical Care Event Note Summary Code activated: No Narrative: Called to bedside for patient requiring high levels of oxygen and being more lethargic. Lung sounds are clear, patient is drowsy but alert. Patient placed on Venti mask at 40% ABG Chest x-ray Lactic acid CBC CMP Blood cultures Chest x-ray appears to be the same as this morning's no acute changes, ABG shows severe hypoxia with PO2 Patient placed on non-rebreather due to severe hypoxia SpO2 reading after about 10 minutes is still 88%. Consulted with ICU attending, agrees with CTA, no Lasix at this time, antibiotics treating for pneumonia and COPD exacerbation. CTA pending This case had a high probability of a clinically significant, sudden, or life threatening deterioration of this patient's condition which required my full and direct attention, intervention and personal management. Critical care time: 30 - 74 mins
[2025-01-14 15:07] LABS: INR 1.2
[2025-01-14 15:08] LABS: Partial Thromboplastin Time 31.9 Seconds (22.3-36.8)
--- NOTE | 2025-01-14 15:14 | PC.NURSE ---
PT arrived to IMU 214 on NRB mask. PT alert and oriented.
[2025-01-14 15:24] LABS: Troponin I 0.036 ng/mL (0.000-0.034)
[2025-01-14 16:24] LABS: INR 1.2
[2025-01-14 16:25] LABS: Partial Thromboplastin Time 34.9 Seconds (22.3-36.8)
[2025-01-14] MEDS: methylPREDNISolone SOD SUCC 125 MG VIAL IV PUSH (16:34)
[2025-01-14] MEDS: diphenhydrAMINE HCl INJ 50 MG/ML VIAL 12.5 MG IV PUSH (16:34)
[2025-01-14] MEDS: FAMOTIDINE 20 MG/2 ML VIAL IV PUSH (16:36)
[2025-01-14] MEDS: HEPARIN SOD/D5W 100 UNITS/ML 25,000 UNITS/250 ML BAG 11 UNITS IV CONT (16:43)
--- NOTE | 2025-01-14 18:23 | PC.NURSE ---
Notified Jana Vieira that patient believes she is unable to swallow the tyenol tablets. PT states her throat is about the same and not worse . at each reassessment.
[2025-01-14] MEDS: ACETAMINOPHEN 325 MG TABLET 650 MG PO (21:05)
[2025-01-15] VITALS (27 sets, daily range): BP systolic 107–125; BP diastolic 61–65; PULSE 8–89; RESP 18–22; TEMP 36.4–37.1; O2SAT 90–96
--- NOTE | 2025-01-15 | ECHO_ITS ---
Patient Info Name: Iza Gayle Age: 69 years : 1955 Gender: Female Ht: 62 in Wt: 162 lbs BSA: 1.82 m2 HR: 73 bpm BP: 115 / 61 mmHg Heart Rhythm: Sinus Rhythm Exam Date: 01/15/2025 10:26 AM Exam Location: Echo Lab Patient Status: Inpatient Admit Date: 01/13/2025 Staff Ordering Physician: Jana Vieira APRN Card Fixer: Ban Osuna RDCS Attending Provider: Rah Carvalho MD ([email or web address]) Referring Physician: Dariel MEJIAS; Exam Type: CA echo doppler color flow Study Info Indications - Possible ribht heart strain Complete two-dimensional, color flow and Doppler transthoracic echocardiogram is performed. Summary 1. Left ventricular chamber dimension is normal. 2. Left ventricular systolic function is normal, estimated at 55-60%. 3. There is mildly increased left ventricular wall thickness. 4. The left ventricular diastolic function is grade I diastolic dysfunction. 5. Right ventricular systolic function is normal. 6. There is mild tricuspid valve regurgitation. Left Ventricle Left ventricular chamber dimension is normal. Left ventricular systolic function is normal, estimated at 55-60%. There is mildly increased left ventricular wall thickness. The left ventricular diastolic function is grade I diastolic dysfunction. Right Ventricle Right ventricular chamber dimension is normal. Right ventricular systolic function is normal. Left Atria Left atrial chamber dimension is normal. Right Atria Right atrial chamber dimension is normal. Atrial Septum Intact interatrial septum visualized by color flow imaging. Aortic Valve The aortic valve is probable trileaflet. There is no aortic valve stenosis. There is no aortic valve regurgitation. There is mild aortic valve calcification. Pulmonic Valve The pulmonic valve is not well visualized. There is trace pulmonic regurgitation. Mitral Valve There is trace mitral valve regurgitation. The mitral valve annulus is mildly calcified. Tricuspid Valve There is mild tricuspid valve regurgitation. Pericardium/Pleural There is no pericardial effusion. Inferior Vena Cava IVC is normal size. Aorta The aortic root size at the sinus of Valsalva is normal. Left Ventricular Outflow Tract Name Value Normal LVOT 2D LVOT Diameter 2.0 cm LVOT Doppler LVOT Peak Gradient 4 mmHg LVOT Mean Gradient 2 mmHg LVOT VTI 17 cm LVOT VTI/AV VTI Ratio 0.7 LVOT Stroke Volume 54 ml LVOT CO 4.8 l/min LVOT CI 2.6 l/min/m2 Pulmonic Valve Name Value Normal RVOT Doppler RVOT Peak Gradient 3 mmHg PV Doppler PV Peak Gradient 4 mmHg Mitral Valve Name Value Normal MV Doppler MV Decel Andrews 244 cm/s2 MV PHT 69 ms MV Area (PHT) 3.2 cm2 4.0-5.0 MV Diastolic Function MV E Peak Velocity 58 cm/s MV A Peak Velocity 84 cm/s MV E/A 0.7 MV Decel Time 237 ms MV Annular TDI MV E/e' (Septal) 11.7 <=8.0 MV E/e' (Lateral) 10.1 <=8.0 MV E/e' (Average) 10.9 Tricuspid Valve Name Value Normal TV Regurgitation Doppler TR Peak Velocity 268 cm/s TR Peak Gradient 29 mmHg Aortic Valve Name Value Normal AV Doppler AV Peak Velocity 151 cm/s AV Peak Gradient 9 mmHg AV Mean Gradient 4 mmHg AV VTI 25 cm AV Area (Cont Eq VTI) 2.2 cm2 >=3.0 AV Area (Cont Eq Daniel) 2.1 cm2 AV Regurgitation 2D LVOT Area 3.2 cm2 Ventricles Name Value Normal LV Dimensions 2D/MM IVS Diastolic Thickness (2D) 1.2 cm 0.6-1.0 LVID Diastole (2D) 4.3 cm 3.8-5.2 LVIW Diastolic Thickness (2D) 0.9 cm 0.6-0.9 LVID Systole (2D) 3.2 cm 2.2-3.5 LVOT Diameter 2.0 cm LV Mass (2D Cubed) 148.77 g 67.00-162.00 LV Mass Index (2D Cubed) 82 g/m2 43-95 Relative Wall Thickness (2D) 0.42 LV Fractional Shortening/Ejection Fraction 2D/MM LV Fractional Shortening (2D) 25 % 27-45 LV EF (2D Teicholz) 51 % 54-74 LV Diastolic Volume (4C MOD) 104 ml LV EF (4C MOD) 56 % LV Diastolic Volume (2C MOD) 106 ml LV EF (2C MOD) 60 % LV Diastolic Volume (BP MOD) 106 ml 46-106 LV Diastolic Volume Index (BP MOD) 59 ml/m2 29-61 LV Systolic Volume (BP MOD) 44 ml 14-42 LV Systolic Volume Index (BP MOD) 24 ml/m2 8-24 LV EF (BP MOD) 59 % 54-74 LV Diastolic Length (4C) 7.9 cm LV Systolic Length (4C) 6.7 cm LV Stroke Volume (4C MOD) 59 ml Atria Name Value Normal LA Dimensions LA Volume (4C A-L) 46 ml LA Volume (BP A-L) 47 ml RA Dimensions RA Area (4C) 16.4 cm2 <=18.0 Report Signatures
[2025-01-15 01:28] LABS: Partial Thromboplastin Time > 200.0 Seconds (22.3-36.8)
--- NOTE | 2025-01-15 01:37 | PC.NURSE ---
patient PTT >200, PTT redrawn and remains >200. Heparin on hold for 1 hour per protocol.
[2025-01-15] MEDS: IPRATROPIUM 0.5 MG/ALBUTEROL SULFATE 2.5 MG AMPUL.NEB 3 ML INHALATION ×4 (03:22→20:27)
[2025-01-15] MEDS: LEVOTHYROXINE SODIUM 88 MCG TABLET PO (06:18)
[2025-01-15 09:01] LABS: Basophils Absolute Auto 0.1 K/mm3 (0.0-0.1); Basophils Percent Auto 0.6 % (0.2-1.2); Hematocrit 31.4 % (37.0-47.0); Hemoglobin 10.3 g/dL (12.0-15.0); Immature Granulocyte Absolute 0.61 K/mm3 (0.00-0.031); Immature Granulocyte Percent A 3.9 % (0-0.5); Lymphocytes Absolute Auto 1.53 K/mm3 (0.9-3.2); Lymphocytes Percent Auto 9.7 % (18.3-44.2); Mean Corpuscular HGB Conc 32.8 g/dl (32-36); Mean Corpuscular Hemoglobin 30.8 pg (26-34); Mean Platelet Volume 9.8 fl (7.4-10.4); Monocytes Absolute Auto 0.4 K/mm3 (0.1-0.6); Monocytes Percent Auto 2.5 % (2.6-8.5); Neutrophils Absolute Auto 13.1 K/mm3 (1.3-6.7); Neutrophils Percent Auto 83.3 % (45.5-73.1); Platelet Count Result 237 k/mm3 (150-375); Red Blood Count 3.34 M/mm3 (4.2-5.4); Red Cell Distribution Width 19.2 % (11.5-14.5); White Blood Count 15.7 K/mm3 (4.5-10.0)
[2025-01-15 09:09] LABS: Alanine Aminotransferase 22 U/L (6-35); Albumin Level 3.5 g/dL (3.5-5.1); Alkaline Phosphatase 89 U/L (38-126); Anion Gap 17 mmol/L (4-12); Aspartate Amino Transferase 26 U/L (14-36); Bilirubin,Total 0.6 mg/dL (0.2-1.3); Blood Urea Nitrogen 34 mg/dL (7-17); Calcium 7.7 mg/dL (8.4-10.2); Carbon Dioxide 18 mmol/L (22-30); Chloride 103 mmol/L (98-107); Estimated CRCL calculation 34 ml/min; Estimated Glomerular Filt Rate 40; Glucose 174 mg/dL (65-110); Potassium 3.6 mmol/L (3.4-5.0); Sodium 138 mmol/L (137-145)
[2025-01-15] MEDS: FELODIPINE 5 MG TAB CR 10 MG PO (09:57)
[2025-01-15] MEDS: carvediloL 25 MG TABLET PO ×2 (09:58→20:40)
[2025-01-15] MEDS: PANTOPRAZOLE 40 MG TABLET PO (09:58)
[2025-01-15] MEDS: RANOLAZINE 500 MG TAB.ER.12H PO ×2 (09:58→20:40)
[2025-01-15] MEDS: oxyBUTYnin CHLORIDE XL 5 MG TAB.ER.24 15 MG PO (09:58)
[2025-01-15] MEDS: CLOPIDOGREL BISULFATE 75 MG TABLET PO (09:58)
[2025-01-15] MEDS: ROSUVASTATIN 20 MG TABLET 40 MG PO (09:58)
[2025-01-15] MEDS: guaiFENesin 12 HR 600 MG TABCR 1200 MG PO ×2 (09:58→20:40)
[2025-01-15] MEDS: OSELTAMIVIR PHOSPHATE 30 MG CAPSULE PO ×2 (09:58→20:40)
[2025-01-15] MEDS: predniSONE 20 MG TABLET 40 MG PO (09:58)
[2025-01-15] MEDS: ISOSORBIDE MONONITRATE 30 MG TAB.ER.24H PO (09:58)
[2025-01-15] MEDS: AZITHROMYCIN 500 MG/NS 250 ML 500 MG/250 ML BAG 250 MG IVPB (09:59)
--- NOTE | 2025-01-15 12:03 | P.PNCA_ITS ---
Progress Note: A&P Assessment and Plan (1) Pulmonary embolism: Code(s): I26.99 - Other pulmonary embolism without acute cor pulmonale Status: Acute (2) Influenza A: Code(s): J10.1 - Influenza due to other identified influenza virus with other respiratory manifestations Status: Acute (3) Acute respiratory failure with hypoxia: Code(s): J96.01 - Acute respiratory failure with hypoxia Status: Acute Plan 1. Pulmonary embolism. CTA shows pulmonary embolism in the branches of the right and left lower and upper lobe arteries. 2. Acute hypoxic respiratory failure 3. Influenza A 4. Left lower lobe pneumonia 5. COPD exacerbation 6. CAD with coronary stents. [facility] 01/13 with stable CAD. 7. CKD stage 3 8. AAA 9. History of DVT/PE 10. Paroxysmal atrial fibrillation 11. Hypertension 12. PVD PLAN: -Continue Heparin drip to bridge to Warfarin. Goal INR of 2-3. -Given PE, will check venous Duplex to evaluate for DVT. -Given history of DVT / PE in the past, recommend outpatient hypercoagulable workup with Hematology consultation if not done in the past. -Continue home cardiac meds. Subjective Date/time seen: 01/15/25 12:03 Interval history: Reason for visit: Post cath patient HPI: 69 year old female with CAD with coronary stents, COPD, CKD stage 3, AAA, DVT, paroxysmal atrial fibrillation, PE, HTN, GERD, anxiety, gout, JANNY, migraines, hypothyroidism, PVD, former smoker who presented originally for an outpatient heart catheterization with Dr. Carvalho as a preop cardiac work up for hernia repair surgery. She was admitted for respiratory failure and has been found to have influenza A and pneumonia. Date of service 01/14: Continues to feel short of breath today. No chest pain. Date of service 01/15: Rapid called yesterday afternoon due to patient requiring high levels of oxygen and being more lethargic. CTA shows acute PE. Transferred to IMU. On HFNC this morning. Hemodynamically stable. Started on Heparin drip. Review of Systems Review of Systems: All systems reviewed & are unremarkable except as noted in HPI and below (HPI) Exam Const: General: no acute distress HENMT: Mouth: Yes moist mucous membranes Eyes: General: appearance normal, both eyes and all related structures Sclera: sclerae normal Resp: Effort & Inspection: normal respiratory effort Other: On HFNC Cardio: Rate: regular rate Rhythm: regular rhythm Skin: General skin exam: normal color Neuro: Speech: normal speech Psych: Mental Status: mental status grossly normal Affect: normal affect Objective Data Vital Signs Vital Signs: Vital Signs - 24 hr 01/14/25 13:57 01/14/25 14:00 01/14/25 14:18 Temperature 36.4 C 36.6 C Pulse Rate 88 88 88 Respiratory Rate 24 H 16 20 Blood Pressure 104/54 L 104/54 L Pulse Oximetry 88 L 88 L Oxygen Delivery Oxygen Flow Rate Fraction of Inspired Oxygen 01/14/25 14:18 01/14/25 16:00 01/14/25 16:00 Temperature Pulse Rate 85 Respiratory Rate Blood Pressure Pulse Oximetry 87 L 95 Oxygen Delivery Non-Rebreather Mask Non-Rebreather Mask Oxygen Flow Rate 15 15 Fraction of Inspired Oxygen 01/14/25 16:30 01/14/25 17:00 01/14/25 18:00 Temperature 36.4 C Pulse Rate 87 82 Respiratory Rate 22 H Blood Pressure 104/48 L Pulse Oximetry 99 93 Oxygen Delivery High Flow Therapy with Na Oxygen Flow Rate 30 Fraction of Inspired Oxygen 68 01/14/25 20:00 01/14/25 20:00 01/14/25 20:17 Temperature 36.4 C L Pulse Rate 82 83 Respiratory Rate 18 Blood Pressure 120/58 L Pulse Oximetry 94 94 Oxygen Delivery High Flow Therapy with Na Oxygen Flow Rate 30 Fraction of Inspired Oxygen 68 01/14/25 21:04 01/14/25 21:10 01/14/25 21:21 Temperature Pulse Rate 81 84 89 Respiratory Rate 20 20 Blood Pressure Pulse Oximetry Oxygen Delivery Oxygen Flow Rate Fraction of Inspired Oxygen 01/14/25 22:00 01/14/25 23:51 01/15/25 00:00 Temperature 36.4 C Pulse Rate 78 71 Respiratory Rate 20 Blood Pressure 130/58 L Pulse Oximetry 96 96 Oxygen Delivery High Flow Therapy with Na Oxygen Flow Rate 30 Fraction of Inspired Oxygen 01/15/25 00:00 01/15/25 02:00 01/15/25 03:23 Temperature Pulse Rate 70 70 82 Respiratory Rate 20 Blood Pressure Pulse Oximetry Oxygen Delivery Oxygen Flow Rate Fraction of Inspired Oxygen 01/15/25 03:34 01/15/25 04:00 01/15/25 04:00 Temperature Pulse Rate 84 68 Respiratory Rate 20 Blood Pressure Pulse Oximetry 92 Oxygen Delivery High Flow Therapy with Na Oxygen Flow Rate 30 Fraction of Inspired Oxygen 68 01/15/25 04:44 01/15/25 06:00 01/15/25 08:00 Temperature 36.7 C Pulse Rate 73 76 83 Respiratory Rate 20 Blood Pressure 115/61 Pulse Oximetry 92 Oxygen Delivery Oxygen Flow Rate Fraction of Inspired Oxygen 01/15/25 08:07 01/15/25 08:12 01/15/25 08:12 Temperature 36.8 C Pulse Rate 81 80 80 Respiratory Rate 20 20 20 Blood Pressure 115/62 Pulse Oximetry 90 91 Oxygen Delivery High Flow Therapy with Na Oxygen Flow Rate 30 Fraction of Inspired Oxygen 82 01/15/25 08:25 01/15/25 09:58 01/15/25 10:00 Temperature Pulse Rate 80 76 80 Respiratory Rate 20 Blood Pressure Pulse Oximetry Oxygen Delivery Oxygen Flow Rate Fraction of Inspired Oxygen Intake/Output Intake/Output: Intake & Output 01/12/25 01/13/25 01/14/25 01/15/25 23:59 23:59 23:59 23:59 Intake Total 1010 1194.5 Output Total 0 200 Balance 1010 994.5 Meds/Results Medications: Active Medications Generic Name Dose Route Start Last Admin Trade Name Freq PRN Reason Stop Dose Admin Acetaminophen 650 mg 01/13/25 20:15 01/14/25 21:05 Acetaminophen 325 Mg Tablet PO 650 mg Q4H PRN Administration Mild Pain (1-3) or Fever Albuterol/Ipratropium 3 ml 01/13/25 20:00 01/15/25 08:11 Ipratropium 0.5 Mg/Albuterol Sulfate 2.5 Mg Ampul.Neb 3 Ml INHALATION 3 ml Q6HRT ENEDELIA Administration Benzocaine 1 lozenge 01/14/25 00:38 Benzocaine/Menthol (*Bkc) 18 Ea Lozenge PO PRN PRN Sore Throat Carvedilol 25 mg 01/13/25 21:00 01/15/25 09:58 Carvedilol 25 Mg Tablet PO 25 mg Q12HR ENEDELIA Administration Clopidogrel Bisulfate 75 mg 01/14/25 09:00 01/15/25 09:58 Clopidogrel Bisulfate 75 Mg Tablet PO 75 mg QAM ENEDELIA Administration Felodipine 10 mg 01/14/25 09:00 01/15/25 09:57 Felodipine 5 Mg Tab Cr PO 10 mg QAM ENEDELIA Administration Guaifenesin 1,200 mg 01/14/25 09:00 01/15/25 09:58 Guaifenesin 12 Hr 600 Mg Tabcr PO 1,200 mg Q12HR ENEDELIA Administration Heparin Sodium (Porcine) 5,000 units 01/14/25 15:44 Heparin Sodium 5,000 Units/Ml Vial IV PUSH PRN PRN aPTT less than 55 seconds Heparin Sodium (Porcine) 2,500 units 01/14/25 15:44 Heparin Sodium 5,000 Units/Ml Vial IV PUSH PRN PRN aPTT 55 - 70 seconds Ceftriaxone Sodium 1 gm in 50 mls @ 100 mls/hr 01/14/25 08:00 01/15/25 09:59 Rocephin 1 Gm/Ns 50 Ml IVPB 100 mls/hr QAM ENEDELIA Administration Azithromycin 500 mg in 250 mls @ 250 mls/hr 01/14/25 09:00 01/15/25 09:59 Zithromax IVPB 250 mls/hr QAM ENEDELIA Administration Heparin Sodium/Dextrose 25,000 units in 250 mls @ 7 mls/hr 01/14/25 15:45 01/15/25 11:00 Heparin Sodium/D5w 100 Units/Ml IV CONT 700 units/hr .Q24H ENEDELIA 7 mls/hr Titration Protocol 700 UNITS/HR Isosorbide Mononitrate 30 mg 01/14/25 09:00 01/15/25 09:58 Isosorbide Mononitrate 30 Mg Tab.Er.24h PO 30 mg DAILY ENEDELIA Administration Levothyroxine Sodium 88 mcg 01/14/25 06:30 01/15/25 06:18 Levothyroxine Sodium 88 Mcg Tablet PO 88 mcg DAILY@0630 ENEDELIA Administration Ondansetron HCl 4 mg 01/13/25 20:15 Ondansetron Inj 4 Mg/2 Ml Vial IV PUSH Q6H PRN Nausea And Vomiting Oseltamivir Phosphate 30 mg 01/14/25 00:45 01/15/25 09:58 Oseltamivir Phosphate 30 Mg Capsule PO 01/19/25 00:44 30 mg Q12HR ENEDELIA Administration Oxybutynin Chloride 15 mg 01/14/25 09:00 01/15/25 09:58 Oxybutynin Chloride Xl 5 Mg Tab.Er.24 PO 15 mg DAILY ENEDELIA Administration Pantoprazole Sodium 40 mg 01/14/25 09:00 01/15/25 09:58 Pantoprazole 40 Mg Tablet PO 40 mg QAM ENEDELIA Administration Perflutren Lipid Microsphere 0 ml 01/14/25 16:01 Perflutren Lipid Microspheres 1.5 Ml Vial Diluted To 10 Ml Total Volume IV PUSH 01/17/25 16:02 ONCE PRN adequate visualization Protocol Prednisone 40 mg 01/15/25 08:00 01/15/25 09:58 Prednisone 20 Mg Tablet PO 40 mg DAILY@0800 ENEDELIA Administration Ranolazine 500 mg 01/13/25 21:00 01/15/25 09:58 Ranolazine 500 Mg Tab.Er.12h PO 500 mg Q12HR ENEDELIA Administration Rosuvastatin Calcium 40 mg 01/14/25 09:00 01/15/25 09:58 Rosuvastatin 20 Mg Tablet PO 40 mg DAILY ENEDELIA Administration Radiology Results: ITS Impressions Chest X-Ray 01/14/25 14:22 IMPRESSION: 1. Stable airspace opacities in left lower lobe, consistent with atelectasis versus pneumonia. Chest CTA 01/14/25 15:03 IMPRESSION: 1. Pulmonary embolism. 2. Bilateral basal pneumonia. 3. Trace of pericardial effusion. 4. Status post left nephrectomy and splenectomy. Prominent left adrenal gland. Physician: Jana Vieira APRN Was notified with the result of the patient at 3:24 PM on January 14, 2025 Labs Labs: Laboratory Results - last 24 hr 01/14/25 01/14/25 01/14/25 14:05 14:27 16:06 WBC 10.3 H RBC 3.19 L Hgb 9.8 L Hct 30.3 L MCV 95.0 MCH 30.7 MCHC 32.3 RDW 19.1 H Plt Count 208 MPV 9.7 Immature Gran % (Auto) Neut % (Auto) Lymph % (Auto) [place] % (Auto) Eos % (Auto) Baso % (Auto) Lymph # (Auto) [place] # (Auto) Eos # (Auto) Baso # (Auto) Abs Immat Gran (auto) Absolute Neuts (auto) Absolute Nucleated RBC Nucleated RBC % PT 15.0 H 15.0 H INR 1.2 1.2 APTT 31.9 34.9 Puncture Site Left radial ABG pH 7.492 H ABG pCO2 26.5 L ABG pO2 47.8 L* ABG PO2/FiO2 Ratio 0.92 ABG HCO3 19.8 L ABG O2 Saturation 87.7 L* ABG O2 Content 12.9 L ABG Base Excess -2.4 A-a Gradient 293.3 Oxyhemoglobin 84.7 L* Total Hemoglobin 10.8 L O2 Delivery Device Other device O2 Liters/Min 8.0 FiO2 52 Sodium 137 Potassium 3.3 L Chloride 104 Carbon Dioxide 20 L Anion Gap 13 H BUN 24 H Creatinine 1.39 H Estim Creat Clear Calc 33 Estimated GFR 38 L Glucose 127 H Lactic Acid 1.9 Calcium 7.4 L Total Bilirubin 0.7 AST 26 ALT 18 Alkaline Phosphatase 83 Troponin I 0.036 H* Total Protein 6.0 L Albumin 3.3 L 01/15/25 01/15/25 00:13 08:53 WBC 15.7 H RBC 3.34 L Hgb 10.3 L Hct 31.4 L MCV 94.0 MCH 30.8 MCHC 32.8 RDW 19.2 H Plt Count 237 MPV 9.8 Immature Gran % (Auto) 3.9 H Neut % (Auto) 83.3 H Lymph % (Auto) 9.7 L [place] % (Auto) 2.5 L Eos % (Auto) 0.0 Baso % (Auto) 0.6 Lymph # (Auto) 1.53 [place] # (Auto) 0.4 Eos # (Auto) 0.0 Baso # (Auto) 0.1 Abs Immat Gran (auto) 0.61 H Absolute Neuts (auto) 13.1 H Absolute Nucleated RBC 0.000 Nucleated RBC % 0.0 PT INR APTT > 200.0 H* 181.0 H* Puncture Site ABG pH ABG pCO2 ABG pO2 ABG PO2/FiO2 Ratio ABG HCO3 ABG O2 Saturation ABG O2 Content ABG Base Excess A-a Gradient Oxyhemoglobin Total Hemoglobin O2 Delivery Device O2 Liters/Min FiO2 Sodium 138 Potassium 3.6 Chloride 103 Carbon Dioxide 18 L Anion Gap 17 H BUN 34 H D Creatinine 1.33 H Estim Creat Clear Calc 34 Estimated GFR 40 L Glucose 174 H Lactic Acid Calcium 7.7 L Total Bilirubin 0.6 AST 26 ALT 22 Alkaline Phosphatase 89 Troponin I Total Protein 7.0 Albumin 3.5
[2025-01-15 16:43] LABS: Hematocrit 28.2 % (37.0-47.0); Hemoglobin 9.4 g/dL (12.0-15.0); Mean Corpuscular HGB Conc 33.3 g/dl (32-36); Mean Corpuscular Hemoglobin 30.7 pg (26-34); Mean Corpuscular Volume 92.2 fl (80-100); Mean Platelet Volume 9.8 fl (7.4-10.4); Platelet Count Result 211 k/mm3 (150-375); Red Blood Count 3.06 M/mm3 (4.2-5.4); White Blood Count 16.4 K/mm3 (4.5-10.0)
[2025-01-15 17:07] LABS: Partial Thromboplastin Time 124.7 Seconds (22.3-36.8)
[2025-01-15 17:11] LABS: Band Neutrophils Percent 5 % (0-6); Lymphocytes Absolute Manual 0.82 K/mm3 (1.1-4.5); Monocytes Absolute Manual 0.32 K/mm3 (0.1-0.90); Monocytes Percent Manual 2 % (3-9); Neutrophils Absolute Manual 15.25 K/mm3 (1.7-7.2); Neutrophils Percent Manual 88 % (46-73); Total Cells Counted 100
[2025-01-15 17:12] LABS: Platelet Estimate Adequate (Adequate)
[2025-01-15 17:13] LABS: Anisocytosis 2+; Schistocytes None Seen
--- NOTE | 2025-01-15 17:45 | P.PNIM_ITS ---
Progress Note: A&P Assessment and Plan (1) Pulmonary embolism: Code(s): I26.99 - Other pulmonary embolism without acute cor pulmonale Status: Acute Assessment and Plan: 3/4 rapid response for acute hypoxia CTA showing Pulmonary embolism is seen in the branches of the right and left lower and upper lobes arteries Echo pending to check for right heart strain Patient placed on heparin drip Monitor cardiac catheterization access site for hematoma Wean oxygen to SpO2 of 90% After CT patient lost her voice however she does not have stridor will treat for possible allergy and monitor closely, she has had contrast in the past without incident (2) Influenza A: Code(s): J10.1 - Influenza due to other identified influenza virus with other respiratory manifestations Status: Acute Assessment and Plan: Guaifenesin Tamiflu Tylenol (3) Pneumonia: Code(s): J18.9 - Pneumonia, unspecified organism Status: Acute Assessment and Plan: Left lower lobe pneumonia Started on Rocephin and azithromycin Breathing treatments Incentive spirometer (4) Acute respiratory failure with hypoxia: Code(s): J96.01 - Acute respiratory failure with hypoxia Status: Acute Assessment and Plan: * currently on 4 L nasal cannula, continue to wean for an O2 sat greater than 92% * continue DuoNeb breathing treatments q.6 hour * patient was given 1 dose of Lasix 40 mg IV while in cardiac cardiac cath tech recovery * proBNP 746 (5) Chronic obstructive pulmonary disease: Code(s): J44.9 - Chronic obstructive pulmonary disease, unspecified Status: Acute Assessment and Plan: see above plan of care likely to exacerbation On antibiotics IV Solu-Medrol x1 Oral prednisone starting tomorrow (6) Coronary artery disease: Code(s): I25.10 - Atherosclerotic heart disease of [place] coronary artery without angina pectoris Status: Acute Assessment and Plan: * history of coronary artery disease with stent placement * continue cardiac monitoring * patient had a nuclear stress test and a PET myocardial perfusion imaging recently which were abnormal * status post cardiac catheterization today with Dr. Carvalho. LAD showed 40-50% stenosis, RCA 30-40% stenosis. This was for cardiac clearance for an upcoming hernia repair surgery. * cardiology primary this admission * continue rosuvastatin and Plavix * continue vascular checks to right radial puncture site (7) Stage 3a chronic kidney disease: Code(s): N18.31 - Chronic kidney disease, stage 3a Status: Acute Assessment and Plan: * labs today showed a creatinine of 1.36, EGFR 39 * baseline creatinine appears to trend between 1.17-1.22, EGFR ranging 44-46 * continue to trend (8) Paroxysmal atrial fibrillation: Code(s): I48.0 - Paroxysmal atrial fibrillation Status: Acute Assessment and Plan: * continue carvedilol * Coumadin on hold for today due to cardiac catheterization * INR 1.1 today * Deferring to Cardiology 1 to restart (9) Essential hypertension: Code(s): I10 - Essential (primary) hypertension Status: Acute Assessment and Plan: * blood pressure ranging 116/86 to 145/73 * continue felodipine and Imdur (10) Hypothyroidism: Code(s): E03.9 - Hypothyroidism, unspecified Status: Acute Assessment and Plan: * continue Synthroid * last TSH was 0.543 on 12/16/2023 TSH low (11) Anemia: Code(s): D64.9 - Anemia, unspecified Status: Acute Assessment and Plan: * hemoglobin 9.9 * appears chronic * iron 46, ferritin 65.20, vitamin B12 864 on 11/29/24 * TSH was 0.543 on 12/16/2023 Folate over 20, will hold while in hospital, patient could switch to every other day (12) GERD (gastroesophageal reflux disease): Code(s): K21.9 - Gastro-esophageal reflux disease without esophagitis Status: Acute Assessment and Plan: * start Protonix Plan Chest x-ray shows left lower lobe pneumonia started on antibiotics in a.m.. Patient had increasing oxygen demands overnight from 2 L to 4, however today she is progressively had higher oxygen demands and ended up having a rapid response (see critical care note for details) for hypoxia placed on on non breather CTA showed Pulmonary embolism is seen in the branches of the right and left lower and upper lobes arteries. Venous Doppler of bilateral lower extremity showed, bilateral deep vein thrombosis involving the posterior tibial and peroneal veins.. Patient also has bilateral pneumonia, patient is being treated with warfarin INR is subtherapeutic and bridge with Lovenox, we may discussed with the global upstream marketing manager to switch over to Eliquis and further recommendation to follow. Subjective Date/time seen: 01/15/25 17:45 Interval history: 69 year old female with CAD with coronary stents, COPD, CKD stage 3, AAA, DVT, paroxysmal atrial fibrillation, PE, HTN, GERD, anxiety, GOUT, JANNY, migraines, hypothyroidism, PVD, former smoker who presented originally for an outpatient heart catheterization with Dr. Carvaloh as a preop cardiac work up for hernia repair surgery. Hospitalist team consulted for acute respiratory failure with hypoxia secondary to flu A. Chest x-ray shows left lower lobe pneumonia started on antibiotics in a.m.. Patient had increasing oxygen demands overnight from 2 L to 4, however today she is progressively had higher oxygen demands and ended up having a rapid response (see critical care note for details) for hypoxia placed on on non breather CTA showed Pulmonary embolism is seen in the branches of the right and left lower and upper lobes arteries. Venous Doppler of bilateral lower extremity showed, bilateral deep vein thrombosis involving the posterior tibial and peroneal veins.. Patient also has bilateral pneumonia, patient is being treated with warfarin INR is subtherapeutic and bridge with Lovenox, we may discussed with the global upstream marketing manager to switch over to Eliquis and further recommendation to follow. Review of Systems Review of Systems: All systems reviewed & are unremarkable except as noted in HPI and below Objective Data Vital Signs Vital Signs: Vital Signs - 24 hr 01/14/25 18:00 01/14/25 20:00 01/14/25 20:00 Temperature Pulse Rate 82 82 Respiratory Rate Blood Pressure Pulse Oximetry 94 Oxygen Delivery High Flow Therapy with Na Oxygen Flow Rate 30 Fraction of Inspired Oxygen 68 01/14/25 20:17 01/14/25 21:04 01/14/25 21:10 Temperature 36.4 C L Pulse Rate 83 81 84 Respiratory Rate 18 20 Blood Pressure 120/58 L Pulse Oximetry 94 Oxygen Delivery Oxygen Flow Rate Fraction of Inspired Oxygen 01/14/25 21:21 01/14/25 22:00 01/14/25 23:51 Temperature 36.4 C Pulse Rate 89 78 71 Respiratory Rate 20 20 Blood Pressure 130/58 L Pulse Oximetry 96 Oxygen Delivery Oxygen Flow Rate Fraction of Inspired Oxygen 01/15/25 00:00 01/15/25 00:00 01/15/25 02:00 Temperature Pulse Rate 70 70 Respiratory Rate Blood Pressure Pulse Oximetry 96 Oxygen Delivery High Flow Therapy with Na Oxygen Flow Rate 30 Fraction of Inspired Oxygen 68 01/15/25 03:23 01/15/25 03:34 01/15/25 04:00 Temperature Pulse Rate 82 84 Respiratory Rate 20 20 Blood Pressure Pulse Oximetry 92 Oxygen Delivery High Flow Therapy with Na Oxygen Flow Rate 30 Fraction of Inspired Oxygen 68 01/15/25 04:00 01/15/25 04:44 01/15/25 06:00 Temperature 36.7 C Pulse Rate 68 73 76 Respiratory Rate 20 Blood Pressure 115/61 Pulse Oximetry 92 Oxygen Delivery Oxygen Flow Rate Fraction of Inspired Oxygen 01/15/25 08:00 01/15/25 08:00 01/15/25 08:07 Temperature 36.8 C Pulse Rate 83 81 Respiratory Rate 20 Blood Pressure 115/62 Pulse Oximetry 96 90 Oxygen Delivery High Flow Therapy with Na Oxygen Flow Rate 45 Fraction of Inspired Oxygen 82 01/15/25 08:12 01/15/25 08:12 01/15/25 08:25 Temperature Pulse Rate 80 80 80 Respiratory Rate 20 20 20 Blood Pressure Pulse Oximetry 91 Oxygen Delivery High Flow Therapy with Na Oxygen Flow Rate 30 Fraction of Inspired Oxygen 82 01/15/25 09:58 01/15/25 10:00 01/15/25 12:04 Temperature 37.1 C Pulse Rate 76 80 86 Respiratory Rate 22 H Blood Pressure 125/65 Pulse Oximetry 92 Oxygen Delivery Oxygen Flow Rate Fraction of Inspired Oxygen 01/15/25 13:26 01/15/25 13:26 01/15/25 13:48 Temperature Pulse Rate 81 80 83 Respiratory Rate 20 20 20 Blood Pressure Pulse Oximetry 95 Oxygen Delivery High Flow Therapy with Na Oxygen Flow Rate 45 Fraction of Inspired Oxygen 80 01/15/25 16:27 Temperature 36.7 C Pulse Rate 87 Respiratory Rate 18 Blood Pressure 125/64 Pulse Oximetry 94 Oxygen Delivery Oxygen Flow Rate Fraction of Inspired Oxygen Intake/Output Intake/Output: Intake & Output 01/12/25 01/13/25 01/14/25 01/15/25 23:59 23:59 23:59 23:59 Intake Total 1010 1478.1 Output Total 0 200 Balance 1010 1278.1 Meds/Results Medications: Active Medications Generic Name Dose Route Start Last Admin Trade Name Freq PRN Reason Stop Dose Admin Acetaminophen 650 mg 01/13/25 20:15 01/14/25 21:05 Acetaminophen 325 Mg Tablet PO 650 mg Q4H PRN Administration Mild Pain (1-3) or Fever Albuterol/Ipratropium 3 ml 01/13/25 20:00 01/15/25 13:26 Ipratropium 0.5 Mg/Albuterol Sulfate 2.5 Mg Ampul.Neb 3 Ml INHALATION 3 ml Q6HRT ENEDELIA Administration Benzocaine 1 lozenge 01/14/25 00:38 Benzocaine/Menthol (*Bkc) 18 Ea Lozenge PO PRN PRN Sore Throat Carvedilol 25 mg 01/13/25 21:00 01/15/25 09:58 Carvedilol 25 Mg Tablet PO 25 mg Q12HR ENEDELIA Administration Clopidogrel Bisulfate 75 mg 01/14/25 09:00 01/15/25 09:58 Clopidogrel Bisulfate 75 Mg Tablet PO 75 mg QAM [facility] Administration Felodipine 10 mg 01/14/25 09:00 01/15/25 09:57 Felodipine 5 Mg Tab Cr PO 10 mg QAM [facility] Administration Guaifenesin 1,200 mg 01/14/25 09:00 01/15/25 09:58 Guaifenesin 12 Hr 600 Mg Tabcr PO 1,200 mg Q12HR ENEDELIA Administration Heparin Sodium (Porcine) 5,000 units 01/14/25 15:44 Heparin Sodium 5,000 Units/Ml Vial IV PUSH PRN PRN aPTT less than 55 seconds Heparin Sodium (Porcine) 2,500 units 01/14/25 15:44 Heparin Sodium 5,000 Units/Ml Vial IV PUSH PRN PRN aPTT 55 - 70 seconds Ceftriaxone Sodium 1 gm in 50 mls @ 100 mls/hr 01/14/25 08:00 01/15/25 09:59 Rocephin 1 Gm/Ns 50 Ml IVPB 100 mls[facility] Azithromycin 500 mg in 250 mls @ 250 mls/hr 01/14/25 09:00 01/15/25 09:59 Zithromax IVPB 250 mls[facility] Administration Heparin Sodium/Dextrose 25,000 units in 250 mls @ 6 mls/hr 01/14/25 15:45 01/15/25 17:14 Heparin Sodium/D5w 100 Units/Ml IV CONT 600 units/hr .Q24H ENEDELIA 6 mls/hr Titration Protocol 600 UNITS/HR Isosorbide Mononitrate 30 mg 01/14/25 09:00 01/15/25 09:58 Isosorbide Mononitrate 30 Mg Tab.Er.24h PO 30 mg DAILY ENEDELIA Administration Levothyroxine Sodium 88 mcg 01/14/25 06:30 01/15/25 06:18 Levothyroxine Sodium 88 Mcg Tablet PO 88 mcg DAILY@0630 ENEDELIA Administration Ondansetron HCl 4 mg 01/13/25 20:15 Ondansetron Inj 4 Mg/2 Ml Vial IV PUSH Q6H PRN Nausea And Vomiting Oseltamivir Phosphate 30 mg 01/14/25 00:45 01/15/25 09:58 Oseltamivir Phosphate 30 Mg Capsule PO 01/19/25 00:44 30 mg Q12HR ENEDELIA Administration Oxybutynin Chloride 15 mg 01/14/25 09:00 01/15/25 09:58 Oxybutynin Chloride Xl 5 Mg Tab.Er.24 PO 15 mg DAILY ENEDELIA Administration Pantoprazole Sodium 40 mg 01/14/25 09:00 01/15/25 09:58 Pantoprazole 40 Mg Tablet PO 40 mg QAM ENEDELIA Administration Perflutren Lipid Microsphere 0 ml 01/14/25 16:01 Perflutren Lipid Microspheres 1.5 Ml Vial Diluted To 10 Ml Total Volume IV PUSH 01/17/25 16:02 ONCE PRN adequate visualization Protocol Prednisone 40 mg 01/15/25 08:00 01/15/25 09:58 Prednisone 20 Mg Tablet PO 40 mg DAILY@0800 ENEDELIA Administration Ranolazine 500 mg 01/13/25 21:00 01/15/25 09:58 Ranolazine 500 Mg Tab.Er.12h PO 500 mg Q12HR ENEDELIA Administration Rosuvastatin Calcium 40 mg 01/14/25 09:00 01/15/25 09:58 Rosuvastatin 20 Mg Tablet PO 40 mg DAILY ENEDELIA Administration Radiology Results: ITS Impressions Chest X-Ray 01/14/25 14:22 IMPRESSION: 1. Stable airspace opacities in left lower lobe, consistent with atelectasis versus pneumonia. Chest CTA 01/14/25 15:03 IMPRESSION: 1. Pulmonary embolism. 2. Bilateral basal pneumonia. 3. Trace of pericardial effusion. 4. Status post left nephrectomy and splenectomy. Prominent left adrenal gland. Physician: Jana Vieira APRN Was notified with the result of the patient at 3:24 PM on January 14, 2025 Venous Doppler Study 01/15/25 15:00 IMPRESSION: Bilateral deep vein thrombosis involving the posterior tibial and peroneal veins.. Labs Labs: Laboratory Results - last 24 hr 01/15/25 01/15/25 01/15/25 00:13 08:53 16:35 WBC 15.7 H 16.4 H RBC 3.34 L 3.06 L Hgb 10.3 L 9.4 L Hct 31.4 L 28.2 L MCV 94.0 92.2 MCH 30.8 30.7 MCHC 32.8 33.3 RDW 19.2 H 19.0 H Plt Count 237 211 MPV 9.8 9.8 Immature Gran % (Auto) 3.9 H Not Reportable Neut % (Auto) 83.3 H Not Reportable Lymph % (Auto) 9.7 L Not Reportable [place] % (Auto) 2.5 L Not Reportable Eos % (Auto) 0.0 Not Reportable Baso % (Auto) 0.6 Not Reportable Lymph # (Auto) 1.53 Not Reportable [place] # (Auto) 0.4 Not Reportable Eos # (Auto) 0.0 Not Reportable Baso # (Auto) 0.1 Not Reportable Abs Immat Gran (auto) 0.61 H Not Reportable Absolute Neuts (auto) 13.1 H Not Reportable Absolute Nucleated RBC 0.000 Not Reportable Total Counted 100 Neutrophils % (Manual) 88 H Band Neutrophils % 5 Lymphocytes % (Manual) 5.0 L Monocytes % (Manual) 2 L Nucleated RBC % 0.0 Not Reportable Abs Neuts (Manual) 15.25 H Abs Lymphs (Manual) 0.82 L Abs Monocytes (Manual) 0.32 Platelet Estimate Adequate Anisocytosis 2+ Schistocytes None seen APTT > 200.0 H* 181.0 H* 124.7 H Sodium 138 Potassium 3.6 Chloride 103 Carbon Dioxide 18 L Anion Gap 17 H BUN 34 H D Creatinine 1.33 H Estim Creat Clear Calc 34 Estimated GFR 40 L Glucose 174 H Calcium 7.7 L Total Bilirubin 0.6 AST 26 ALT 22 Alkaline Phosphatase 89 Total Protein 7.0 Albumin 3.5 Quality VTE Prophylaxis VTE prophylaxis: mechanical ordered
[2025-01-15] MEDS: HEPARIN SOD/D5W 100 UNITS/ML 25,000 UNITS/250 ML BAG 6 UNITS IV CONT (23:20)
[2025-01-15 23:42] LABS: Partial Thromboplastin Time 115.6 Seconds (22.3-36.8)
[2025-01-16] VITALS (32 sets, daily range): BP systolic 109–120; BP diastolic 49–62; PULSE 81–93; RESP 15–22; TEMP 36.6–37.2; O2SAT 92–98
[2025-01-16] MEDS: IPRATROPIUM 0.5 MG/ALBUTEROL SULFATE 2.5 MG AMPUL.NEB 3 ML INHALATION ×4 (02:16→20:07)
[2025-01-16 06:41] LABS: Basophils Absolute Auto 0.1 K/mm3 (0.0-0.1); Basophils Percent Auto 0.4 % (0.2-1.2); Hematocrit 29.3 % (37.0-47.0); Hemoglobin 9.7 g/dL (12.0-15.0); Immature Granulocyte Absolute 0.11 K/mm3 (0.00-0.031); Immature Granulocyte Percent A 0.6 % (0-0.5); Lymphocytes Absolute Auto 1.03 K/mm3 (0.9-3.2); Lymphocytes Percent Auto 5.9 % (18.3-44.2); Mean Corpuscular HGB Conc 33.1 g/dl (32-36); Mean Corpuscular Hemoglobin 30.6 pg (26-34); Mean Corpuscular Volume 92.4 fl (80-100); Monocytes Absolute Auto 0.5 K/mm3 (0.1-0.6); Monocytes Percent Auto 2.9 % (2.6-8.5); Neutrophils Absolute Auto 15.7 K/mm3 (1.3-6.7); Neutrophils Percent Auto 90.2 % (45.5-73.1); Nucleated Red Blood Cells Perc 0.2 % (0.0-0.2); Platelet Count Result 242 k/mm3 (150-375); Red Blood Count 3.17 M/mm3 (4.2-5.4); Red Cell Distribution Width 18.8 % (11.5-14.5); White Blood Count 17.4 K/mm3 (4.5-10.0)
[2025-01-16] MEDS: LEVOTHYROXINE SODIUM 88 MCG TABLET PO (06:42)
[2025-01-16 06:54] LABS: Alanine Aminotransferase 37 U/L (6-35); Albumin Level 3.1 g/dL (3.5-5.1); Alkaline Phosphatase 106 U/L (38-126); Anion Gap 13 mmol/L (4-12); Aspartate Amino Transferase 54 U/L (14-36); Bilirubin,Total 0.5 mg/dL (0.2-1.3); Blood Urea Nitrogen 43 mg/dL (7-17); Calcium 7.8 mg/dL (8.4-10.2); Carbon Dioxide 20 mmol/L (22-30); Chloride 102 mmol/L (98-107); Estimated CRCL calculation 27 ml/min; Estimated Glomerular Filt Rate 30; Glucose 119 mg/dL (65-110); Potassium 3.7 mmol/L (3.4-5.0); Sodium 135 mmol/L (137-145)
[2025-01-16 06:57] LABS: Partial Thromboplastin Time 95.6 Seconds (22.3-36.8)
[2025-01-16] MEDS: ROSUVASTATIN 20 MG TABLET 40 MG PO (09:09)
[2025-01-16] MEDS: predniSONE 20 MG TABLET 40 MG PO (09:09)
[2025-01-16] MEDS: ISOSORBIDE MONONITRATE 30 MG TAB.ER.24H PO (09:09)
[2025-01-16] MEDS: PANTOPRAZOLE 40 MG TABLET PO (09:10)
[2025-01-16] MEDS: OSELTAMIVIR PHOSPHATE 30 MG CAPSULE PO (09:10)
[2025-01-16] MEDS: carvediloL 25 MG TABLET PO ×2 (09:10→20:01)
[2025-01-16] MEDS: RANOLAZINE 500 MG TAB.ER.12H PO ×2 (09:10→20:02)
[2025-01-16] MEDS: FELODIPINE 5 MG TAB CR 10 MG PO (09:10)
[2025-01-16] MEDS: guaiFENesin 12 HR 600 MG TABCR 1200 MG PO ×2 (09:10→20:02)
[2025-01-16] MEDS: CLOPIDOGREL BISULFATE 75 MG TABLET PO (09:10)
[2025-01-16] MEDS: AZITHROMYCIN 500 MG/NS 250 ML 500 MG/250 ML BAG 250 MG IVPB (09:11)
[2025-01-16] MEDS: oxyBUTYnin CHLORIDE XL 5 MG TAB.ER.24 15 MG PO (09:11)
--- NOTE | 2025-01-16 12:20 | PM.PNCARD ---
Progress Note: A&P Assessment and Plan (1) CAD (coronary artery disease): Qualifiers: Coronary Disease-Associated Artery/Lesion type: unspecified vessel or lesion type [place] vs. transplanted heart: [place] heart Associated angina: without angina Qualified Code(s): I25.10 - Atherosclerotic heart disease of [place] coronary artery without angina pectoris Code(s): I25.10 - Atherosclerotic heart disease of [place] coronary artery without angina pectoris Status: Acute Plan 69 year old female with CAD with coronary stents, COPD, CKD stage 3, AAA, DVT, paroxysmal atrial fibrillation, PE, HTN, GERD, anxiety, gout, JANNY, migraines, hypothyroidism, PVD, former smoker who presented originally for an outpatient heart catheterization with Dr. Carvalho as a preop cardiac work up for hernia repair surgery who is not found to have any obstructive coronary artery disease however did complain of shortness of breath and is now admitted for acute hypoxic respiratory failure in setting of influenza a pneumonia and then found to have DVT/PE as well Coronary artery disease status post PCI -nonobstructive on Plavix Acute pulmonary embolism -can switch to Eliquis 5 mg p.o. b.i.d. DVT -continue anticoagulation Subjective Date/time seen: 01/16/25 12:20 Interval history: Denies any chest discomfort shortness of breath. However she is on high-flow oxygen at this time. No leg pain or swelling in the legs. Review of Systems Cardiovascular: Cardiovascular: Reports as per HPI Respiratory: Respiratory: Reports as per HPI Exam Const: Other: Ill-appearing HENMT: Mouth: Yes moist mucous membranes Eyes: EOM: EOMs intact bilaterally Neck: Neck: no JVD Resp: Effort & Inspection: normal respiratory effort Auscultation: rales Cardio: Rate: regular rate Rhythm: regular rhythm GI: GI Palp: Yes Soft to palpation Extrem: General: no pedal edema Objective Data Vital Signs Vital Signs: Vital Signs - 24 hr 01/15/25 13:26 01/15/25 13:26 01/15/25 13:48 Temperature Pulse Rate 81 80 83 Respiratory Rate 20 20 20 Blood Pressure Pulse Oximetry 95 Oxygen Delivery High Flow Therapy with Na Oxygen Flow Rate 45 Fraction of Inspired Oxygen 80 01/15/25 14:00 01/15/25 16:00 01/15/25 16:00 Temperature Pulse Rate 84 84 Respiratory Rate Blood Pressure Pulse Oximetry 95 Oxygen Delivery High Flow Therapy with Na Oxygen Flow Rate 45 Fraction of Inspired Oxygen 82 01/15/25 16:27 01/15/25 18:00 01/15/25 20:00 Temperature 36.7 C Pulse Rate 87 85 Respiratory Rate 18 Blood Pressure 125/64 Pulse Oximetry 94 95 Oxygen Delivery High Flow Therapy with Na Oxygen Flow Rate 45 Fraction of Inspired Oxygen 84 01/15/25 20:00 01/15/25 20:02 01/15/25 20:27 Temperature 36.4 C Pulse Rate 85 87 Respiratory Rate 20 Blood Pressure 107/62 Pulse Oximetry 95 96 Oxygen Delivery High Flow Therapy with Na Oxygen Flow Rate 45 Fraction of Inspired Oxygen 80 01/15/25 20:27 01/15/25 20:33 01/15/25 20:40 Temperature Pulse Rate 80 78 89 Respiratory Rate 18 18 Blood Pressure Pulse Oximetry Oxygen Delivery Oxygen Flow Rate Fraction of Inspired Oxygen 01/15/25 22:00 01/16/25 00:00 01/16/25 00:00 Temperature Pulse Rate 87 83 Respiratory Rate Blood Pressure Pulse Oximetry 95 Oxygen Delivery High Flow Therapy with Na Oxygen Flow Rate 45 Fraction of Inspired Oxygen 84 01/16/25 00:15 01/16/25 02:00 01/16/25 02:16 Temperature 37.0 C Pulse Rate 84 87 85 Respiratory Rate 20 15 Blood Pressure 120/62 Pulse Oximetry 96 Oxygen Delivery Oxygen Flow Rate Fraction of Inspired Oxygen 01/16/25 04:00 01/16/25 04:00 01/16/25 04:11 Temperature 36.6 C Pulse Rate 84 84 Respiratory Rate 20 Blood Pressure 118/53 L Pulse Oximetry 97 97 Oxygen Delivery High Flow Therapy with Na Oxygen Flow Rate 45 Fraction of Inspired Oxygen 84 01/16/25 06:00 01/16/25 08:00 01/16/25 08:20 Temperature 37.2 C Pulse Rate 83 85 Respiratory Rate 18 Blood Pressure 112/51 L Pulse Oximetry 97 92 Oxygen Delivery High Flow Therapy with Na Oxygen Flow Rate 45 Fraction of Inspired Oxygen 85 01/16/25 08:20 01/16/25 08:33 01/16/25 09:10 Temperature Pulse Rate 89 90 91 Respiratory Rate 20 20 Blood Pressure Pulse Oximetry Oxygen Delivery Oxygen Flow Rate Fraction of Inspired Oxygen 01/16/25 09:45 01/16/25 10:25 01/16/25 11:03 Temperature Pulse Rate Respiratory Rate Blood Pressure Pulse Oximetry 98 96 93 Oxygen Delivery High Flow Therapy with Na High Flow Therapy with Na High Flow Therapy with Na Oxygen Flow Rate 45 45 45 Fraction of Inspired Oxygen 85 75 65 01/16/25 11:55 Temperature 37.0 C Pulse Rate 88 Respiratory Rate 18 Blood Pressure 109/50 L Pulse Oximetry 94 Oxygen Delivery Oxygen Flow Rate Fraction of Inspired Oxygen Intake/Output Intake/Output: Intake & Output 01/13/25 01/14/25 01/15/25 01/16/25 23:59 23:59 23:59 23:59 Intake Total 1010 2254.7 520.3 Output Total 0 650 400 Balance 1010 1604.7 120.3 Meds/Results Medications: Active Medications Generic Name Dose Route Start Last Admin Trade Name Freq PRN Reason Stop Dose Admin Acetaminophen 650 mg 01/13/25 20:15 01/14/25 21:05 Acetaminophen 325 Mg Tablet PO 650 mg Q4H PRN Administration Mild Pain (1-3) or Fever Albuterol/Ipratropium 3 ml 01/13/25 20:00 01/16/25 08:17 Ipratropium 0.5 Mg/Albuterol Sulfate 2.5 Mg Ampul.Neb 3 Ml INHALATION 3 ml Q6HRT ENEDELIA Administration Benzocaine 1 lozenge 01/14/25 00:38 Benzocaine/Menthol (*Bkc) 18 Ea Lozenge PO PRN PRN Sore Throat Carvedilol 25 mg 01/13/25 21:00 01/16/25 09:10 Carvedilol 25 Mg Tablet PO 25 mg Q12HR ENEDELIA Administration Clopidogrel Bisulfate 75 mg 01/14/25 09:00 01/16/25 09:10 Clopidogrel Bisulfate 75 Mg Tablet PO 75 mg QAM ENEDELIA Administration Felodipine 10 mg 01/14/25 09:00 01/16/25 09:10 Felodipine 5 Mg Tab Cr PO 10 mg QAM ENEDELIA Administration Guaifenesin 1,200 mg 01/14/25 09:00 01/16/25 09:10 Guaifenesin 12 Hr 600 Mg Tabcr PO 1,200 mg Q12HR ENEDELIA Administration Heparin Sodium (Porcine) 5,000 units 01/14/25 15:44 Heparin Sodium 5,000 Units/Ml Vial IV PUSH PRN PRN aPTT less than 55 seconds Heparin Sodium (Porcine) 2,500 units 01/14/25 15:44 Heparin Sodium 5,000 Units/Ml Vial IV PUSH PRN PRN aPTT 55 - 70 seconds Ceftriaxone Sodium 1 gm in 50 mls @ 100 mls/hr 01/14/25 08:00 01/16/25 09:11 Rocephin 1 Gm/Ns 50 Ml IVPB 100 mls/hr QAM ENEDELIA Administration Azithromycin 500 mg in 250 mls @ 250 mls/hr 01/14/25 09:00 01/16/25 09:11 Zithromax IVPB 250 mls/hr QAM ENEDELIA Administration Heparin Sodium/Dextrose 25,000 units in 250 mls @ 5 mls/hr 01/14/25 15:45 01/16/25 07:06 Heparin Sodium/D5w 100 Units/Ml IV CONT 500 units/hr .Q24H ENEDELIA 5 mls/hr Titration Protocol 500 UNITS/HR Isosorbide Mononitrate 30 mg 01/14/25 09:00 01/16/25 09:09 Isosorbide Mononitrate 30 Mg Tab.Er.24h PO 30 mg DAILY ENEDELIA Administration Levothyroxine Sodium 88 mcg 01/14/25 06:30 01/16/25 06:42 Levothyroxine Sodium 88 Mcg Tablet PO 88 mcg DAILY@0630 ENEDELIA Administration Ondansetron HCl 4 mg 01/13/25 20:15 Ondansetron Inj 4 Mg/2 Ml Vial IV PUSH Q6H PRN Nausea And Vomiting Oseltamivir Phosphate 30 mg 01/17/25 09:00 Oseltamivir Phosphate 30 Mg Capsule PO 01/19/25 23:59 DAILY ENEDELIA Oxybutynin Chloride 15 mg 01/14/25 09:00 01/16/25 09:11 Oxybutynin Chloride Xl 5 Mg Tab.Er.24 PO 15 mg DAILY ENEDELIA Administration Pantoprazole Sodium 40 mg 01/14/25 09:00 01/16/25 09:10 Pantoprazole 40 Mg Tablet PO 40 mg QAM ENEDELIA Administration Perflutren Lipid Microsphere 0 ml 01/14/25 16:01 Perflutren Lipid Microspheres 1.5 Ml Vial Diluted To 10 Ml Total Volume IV PUSH 01/17/25 16:02 ONCE PRN adequate visualization Protocol Prednisone 40 mg 01/15/25 08:00 01/16/25 09:09 Prednisone 20 Mg Tablet PO 40 mg DAILY@0800 ENEDELIA Administration Ranolazine 500 mg 01/13/25 21:00 01/16/25 09:10 Ranolazine 500 Mg Tab.Er.12h PO 500 mg Q12HR ENEDELIA Administration Rosuvastatin Calcium 40 mg 01/14/25 09:00 01/16/25 09:09 Rosuvastatin 20 Mg Tablet PO 40 mg DAILY ENEDELIA Administration Radiology Results: ITS Impressions Chest X-Ray 01/14/25 14:22 IMPRESSION: 1. Stable airspace opacities in left lower lobe, consistent with atelectasis versus pneumonia. Chest CTA 01/14/25 15:03 IMPRESSION: 1. Pulmonary embolism. 2. Bilateral basal pneumonia. 3. Trace of pericardial effusion. 4. Status post left nephrectomy and splenectomy. Prominent left adrenal gland. Physician: Jana Vieira APRN Was notified with the result of the patient at 3:24 PM on January 14, 2025 Venous Doppler Study 01/15/25 15:00 IMPRESSION: Bilateral deep vein thrombosis involving the posterior tibial and peroneal veins.. Labs Labs: Laboratory Results - last 24 hr 01/15/25 01/15/25 01/16/25 16:35 23:19 06:33 WBC 16.4 H RBC 3.06 L Hgb 9.4 L Hct 28.2 L MCV 92.2 MCH 30.7 MCHC 33.3 RDW 19.0 H Plt Count 211 MPV 9.8 Immature Gran % (Auto) Not Reportable Neut % (Auto) Not Reportable Lymph % (Auto) Not Reportable [place] % (Auto) Not Reportable Eos % (Auto) Not Reportable Baso % (Auto) Not Reportable Lymph # (Auto) Not Reportable [place] # (Auto) Not Reportable Eos # (Auto) Not Reportable Baso # (Auto) Not Reportable Abs Immat Gran (auto) Not Reportable Absolute Neuts (auto) Not Reportable Absolute Nucleated RBC Not Reportable Total Counted 100 Neutrophils % (Manual) 88 H Band Neutrophils % 5 Lymphocytes % (Manual) 5.0 L Monocytes % (Manual) 2 L Nucleated RBC % Not Reportable Abs Neuts (Manual) 15.25 H Abs Lymphs (Manual) 0.82 L Abs Monocytes (Manual) 0.32 Platelet Estimate Adequate Anisocytosis 2+ Schistocytes None seen APTT 124.7 H 115.6 H Sodium 135 L Potassium 3.7 Chloride 102 Carbon Dioxide 20 L Anion Gap 13 H BUN 43 H Creatinine 1.68 H Estim Creat Clear Calc 27 Estimated GFR 30 L Glucose 119 H Calcium 7.8 L Total Bilirubin 0.5 AST 54 H ALT 37 H Alkaline Phosphatase 106 Total Protein 7.0 Albumin 3.1 L 01/16/25 06:34 WBC 17.4 H RBC 3.17 L Hgb 9.7 L Hct 29.3 L MCV 92.4 MCH 30.6 MCHC 33.1 RDW 18.8 H Plt Count 242 MPV 10.0 Immature Gran % (Auto) 0.6 H Neut % (Auto) 90.2 H Lymph % (Auto) 5.9 L [place] % (Auto) 2.9 Eos % (Auto) 0.0 Baso % (Auto) 0.4 Lymph # (Auto) 1.03 [place] # (Auto) 0.5 Eos # (Auto) 0.0 Baso # (Auto) 0.1 Abs Immat Gran (auto) 0.11 H Absolute Neuts (auto) 15.7 H Absolute Nucleated RBC 0.030 H Total Counted Neutrophils % (Manual) Band Neutrophils % Lymphocytes % (Manual) Monocytes % (Manual) Nucleated RBC % 0.2 Abs Neuts (Manual) Abs Lymphs (Manual) Abs Monocytes (Manual) Platelet Estimate Anisocytosis Schistocytes APTT 95.6 H Sodium Potassium Chloride Carbon Dioxide Anion Gap BUN Creatinine Estim Creat Clear Calc Estimated GFR Glucose Calcium Total Bilirubin AST ALT Alkaline Phosphatase Total Protein Albumin
[2025-01-16 13:11] LABS: INR 1.1; Prothrombin Time 14.1 Seconds (11.1-14.7)
[2025-01-16 13:33] LABS: Partial Thromboplastin Time 53.7 Seconds (22.3-36.8)
[2025-01-16] MEDS: HEPARIN SODIUM 5,000 UNITS/ML VIAL 2500 UNITS IV PUSH (13:40)
--- NOTE | 2025-01-16 17:40 | P.PNIM_ITS ---
Progress Note: A&P Assessment and Plan (1) Pulmonary embolism: Code(s): I26.99 - Other pulmonary embolism without acute cor pulmonale Status: Acute Assessment and Plan: 3/4 rapid response for acute hypoxia CTA showing Pulmonary embolism is seen in the branches of the right and left lower and upper lobes arteries Echo pending to check for right heart strain Patient placed on heparin drip Monitor cardiac catheterization access site for hematoma Wean oxygen to SpO2 of 90% After CT patient lost her voice however she does not have stridor will treat for possible allergy and monitor closely, she has had contrast in the past without incident (2) Influenza A: Code(s): J10.1 - Influenza due to other identified influenza virus with other respiratory manifestations Status: Acute Assessment and Plan: Guaifenesin Tamiflu Tylenol (3) Pneumonia: Code(s): J18.9 - Pneumonia, unspecified organism Status: Acute Assessment and Plan: Left lower lobe pneumonia Started on Rocephin and azithromycin Breathing treatments Incentive spirometer (4) Acute respiratory failure with hypoxia: Code(s): J96.01 - Acute respiratory failure with hypoxia Status: Acute Assessment and Plan: * currently on 4 L nasal cannula, continue to wean for an O2 sat greater than 92% * continue DuoNeb breathing treatments q.6 hour * patient was given 1 dose of Lasix 40 mg IV 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 * proBNP 746 (5) Chronic obstructive pulmonary disease: Code(s): J44.9 - Chronic obstructive pulmonary disease, unspecified Status: Acute Assessment and Plan: see above plan of care likely to exacerbation On antibiotics IV Solu-Medrol x1 Oral prednisone starting tomorrow (6) Coronary artery disease: Code(s): I25.10 - Atherosclerotic heart disease of [place] coronary artery without angina pectoris Status: Acute Assessment and Plan: * history of coronary artery disease with stent placement * continue cardiac monitoring * patient had a nuclear stress test and a PET myocardial perfusion imaging recently which were abnormal * status post cardiac catheterization today with Dr. Carvalho. LAD showed 40-50% stenosis, RCA 30-40% stenosis. This was for cardiac clearance for an upcoming hernia repair surgery. * cardiology primary this admission * continue rosuvastatin and Plavix * continue vascular checks to right radial puncture site (7) Stage 3a chronic kidney disease: Code(s): N18.31 - Chronic kidney disease, stage 3a Status: Acute Assessment and Plan: * labs today showed a creatinine of 1.36, EGFR 39 * baseline creatinine appears to trend between 1.17-1.22, EGFR ranging 44-46 * continue to trend (8) Paroxysmal atrial fibrillation: Code(s): I48.0 - Paroxysmal atrial fibrillation Status: Acute Assessment and Plan: * continue carvedilol * Coumadin on hold for today due to cardiac catheterization * INR 1.1 today * Deferring to Cardiology 1 to restart (9) Essential hypertension: Code(s): I10 - Essential (primary) hypertension Status: Acute Assessment and Plan: * blood pressure ranging 116/86 to 145/73 * continue felodipine and Imdur (10) Hypothyroidism: Code(s): E03.9 - Hypothyroidism, unspecified Status: Acute Assessment and Plan: * continue Synthroid * last TSH was 0.543 on 12/16/2023 TSH low (11) Anemia: Code(s): D64.9 - Anemia, unspecified Status: Acute Assessment and Plan: * hemoglobin 9.9 * appears chronic * iron 46, ferritin 65.20, vitamin B12 864 on 11/29/24 * TSH was 0.543 on 12/16/2023 Folate over 20, will hold while in hospital, patient could switch to every other day (12) GERD (gastroesophageal reflux disease): Code(s): K21.9 - Gastro-esophageal reflux disease without esophagitis Status: Acute Assessment and Plan: * start Protonix Plan Chest x-ray shows left lower lobe pneumonia started on antibiotics in a.m.. Patient had increasing oxygen demands overnight from 2 L to 4, however today she is progressively had higher oxygen demands and ended up having a rapid response (see critical care note for details) for hypoxia placed on on non breather CTA showed Pulmonary embolism is seen in the branches of the right and left lower and upper lobes arteries. Venous Doppler of bilateral lower extremity showed, bilateral deep vein thrombosis involving the posterior tibial and peroneal veins.. Patient also has bilateral pneumonia, patient is being treated with warfarin INR is subtherapeutic and bridge with Lovenox, we may discussed with the data communications engineer to switch over to Eliquis and further recommendation to follow. [facility] is agrreable to switch patient to DOAC, discus with pharmacist and will start Eliquis 10mg BID for 7 days thereafter switch to 5mg BID, patient still requiring high flow oxygen. Subjective Date/time seen: 01/16/25 17:40 Interval history: 69 year old female with CAD with coronary stents, COPD, CKD stage 3, AAA, DVT, paroxysmal atrial fibrillation, PE, HTN, GERD, anxiety, GOUT, JANNY, migraines, hypothyroidism, PVD, former smoker who presented originally for an outpatient heart catheterization with Dr. Carvalho as a preop cardiac work up for hernia repair surgery. Hospitalist team consulted for acute respiratory failure with hypoxia secondary to flu A. Chest x-ray shows left lower lobe pneumonia started on antibiotics in a.m.. Patient had increasing oxygen demands overnight from 2 L to 4, however today she is progressively had higher oxygen demands and ended up having a rapid response (see critical care note for details) for hypoxia placed on on non breather CTA showed Pulmonary embolism is seen in the branches of the right and left lower and upper lobes arteries. Venous Doppler of bilateral lower extremity showed, bilateral deep vein thrombosis involving the posterior tibial and peroneal veins.. Patient also has bilateral pneumonia, patient is being treated with warfarin INR is subtherapeutic and bridge with Lovenox, we may discussed with the data communications engineer to switch over to Eliquis and further recommendation to follow. [facility] is agrreable to switch patient to DOAC, discus with pharmacist and will start Eliquis 10mg BID for 7 days thereafter switch to 5mg BID, patient still requiring high flow oxygen. Exam Narrative: Patient is comfortable, NAD HEENT: eyes are clear and none icteric LUNGS: Bilateral fair air entry with rhonchi and wheezing HEART: RR S1S2 ABD: BS+, Soft and nontender Lower extremities: no edema SKIN: nonjaundiced Neuro: grossly intact. Objective Data Vital Signs Vital Signs: Vital Signs - 24 hr 01/15/25 18:00 01/15/25 20:00 01/15/25 20:00 Temperature Pulse Rate 85 85 Respiratory Rate Blood Pressure Pulse Oximetry 95 Oxygen Delivery High Flow Therapy with Na Oxygen Flow Rate 45 Fraction of Inspired Oxygen 84 01/15/25 20:02 01/15/25 20:27 01/15/25 20:27 Temperature 36.4 C Pulse Rate 87 80 Respiratory Rate 20 18 Blood Pressure 107/62 Pulse Oximetry 95 96 Oxygen Delivery High Flow Therapy with Na Oxygen Flow Rate 45 Fraction of Inspired Oxygen 80 01/15/25 20:33 01/15/25 20:40 01/15/25 22:00 Temperature Pulse Rate 78 89 87 Respiratory Rate 18 Blood Pressure Pulse Oximetry Oxygen Delivery Oxygen Flow Rate Fraction of Inspired Oxygen 01/16/25 00:00 01/16/25 00:00 01/16/25 00:15 Temperature 37.0 C Pulse Rate 83 84 Respiratory Rate 20 Blood Pressure 120/62 Pulse Oximetry 95 96 Oxygen Delivery High Flow Therapy with Na Oxygen Flow Rate 45 Fraction of Inspired Oxygen 84 01/16/25 02:00 01/16/25 02:16 01/16/25 04:00 Temperature Pulse Rate 87 85 Respiratory Rate 15 Blood Pressure Pulse Oximetry 97 Oxygen Delivery High Flow Therapy with Na Oxygen Flow Rate 45 Fraction of Inspired Oxygen 84 01/16/25 04:00 01/16/25 04:11 01/16/25 06:00 Temperature 36.6 C Pulse Rate 84 84 83 Respiratory Rate 20 Blood Pressure 118/53 L Pulse Oximetry 97 Oxygen Delivery Oxygen Flow Rate Fraction of Inspired Oxygen 01/16/25 08:00 01/16/25 08:00 01/16/25 08:00 Temperature 37.2 C Pulse Rate 85 88 93 Respiratory Rate 18 18 Blood Pressure 112/51 L Pulse Oximetry 97 94 Oxygen Delivery High Flow Therapy with Na Oxygen Flow Rate 45 Fraction of Inspired Oxygen 65 01/16/25 08:20 01/16/25 08:20 01/16/25 08:33 Temperature Pulse Rate 89 90 Respiratory Rate 20 20 Blood Pressure Pulse Oximetry 92 Oxygen Delivery High Flow Therapy with Na Oxygen Flow Rate 45 Fraction of Inspired Oxygen 85 01/16/25 09:10 01/16/25 09:45 01/16/25 10:00 Temperature Pulse Rate 91 93 Respiratory Rate Blood Pressure Pulse Oximetry 98 Oxygen Delivery High Flow Therapy with Na Oxygen Flow Rate 45 Fraction of Inspired Oxygen 85 01/16/25 10:25 01/16/25 11:03 01/16/25 11:55 Temperature 37.0 C Pulse Rate 88 Respiratory Rate 18 Blood Pressure 109/50 L Pulse Oximetry 96 93 94 Oxygen Delivery High Flow Therapy with Na High Flow Therapy with Na Oxygen Flow Rate 45 45 Fraction of Inspired Oxygen 75 65 01/16/25 12:00 01/16/25 12:00 01/16/25 14:00 Temperature Pulse Rate 88 88 81 Respiratory Rate 18 Blood Pressure Pulse Oximetry 94 Oxygen Delivery High Flow Therapy with Na Oxygen Flow Rate 45 Fraction of Inspired Oxygen 65 01/16/25 14:50 01/16/25 14:50 01/16/25 15:02 Temperature Pulse Rate 85 84 Respiratory Rate 20 20 Blood Pressure Pulse Oximetry 92 Oxygen Delivery High Flow Therapy with Na Oxygen Flow Rate 45 Fraction of Inspired Oxygen 65 01/16/25 15:57 Temperature 36.9 C Pulse Rate 84 Respiratory Rate 20 Blood Pressure 112/49 L Pulse Oximetry 96 Oxygen Delivery Oxygen Flow Rate Fraction of Inspired Oxygen Intake/Output Intake/Output: Intake & Output 01/13/25 01/14/25 01/15/25 01/16/25 23:59 23:59 23:59 23:59 Intake Total 1010 2254.7 673.1 Output Total 0 650 400 Balance 1010 1604.7 273.1 Meds/Results Medications: Active Medications Generic Name Dose Route Start Last Admin Trade Name Freq PRN Reason Stop Dose Admin Acetaminophen 650 mg 01/13/25 20:15 01/14/25 21:05 Acetaminophen 325 Mg Tablet PO 650 mg Q4H PRN Administration Mild Pain (1-3) or Fever Albuterol/Ipratropium 3 ml 01/13/25 20:00 01/16/25 14:50 Ipratropium 0.5 Mg/Albuterol Sulfate 2.5 Mg Ampul.Neb 3 Ml INHALATION 3 ml Q6HRT ENEDELIA Administration Apixaban 10 mg 01/16/25 19:00 Apixaban 5 Mg Tablet PO 01/23/25 09:01 Q12HR ENEDELIA Apixaban 5 mg 01/23/25 21:00 Apixaban 5 Mg Tablet PO Q12HR [facility] Benzocaine 1 lozenge 01/14/25 00:38 Benzocaine/Menthol (*Bkc) 18 Ea Lozenge PO PRN PRN Sore Throat Carvedilol 25 mg 01/13/25 21:00 01/16/25 09:10 Carvedilol 25 Mg Tablet PO 25 mg Q12HR ENEDELIA Administration Clopidogrel Bisulfate 75 mg 01/14/25 09:00 01/16/25 09:10 Clopidogrel Bisulfate 75 Mg Tablet PO 75 mg QAM ENEDELIA Administration Felodipine 10 mg 01/14/25 09:00 01/16/25 09:10 Felodipine 5 Mg Tab Cr PO 10 mg QAM ENEDELIA Administration Guaifenesin 1,200 mg 01/14/25 09:00 01/16/25 09:10 Guaifenesin 12 Hr 600 Mg Tabcr PO 1,200 mg Q12HR ENEDELIA Administration Ceftriaxone Sodium 1 gm in 50 mls @ 100 mls/hr 01/14/25 08:00 01/16/25 09:11 Rocephin 1 Gm/Ns 50 Ml IVPB 100 mls/hr QAM ENEDELIA Administration Azithromycin 500 mg in 250 mls @ 250 mls/hr 01/14/25 09:00 01/16/25 09:11 Zithromax IVPB 250 mls/hr QAM ENEDELIA Administration Isosorbide Mononitrate 30 mg 01/14/25 09:00 01/16/25 09:09 Isosorbide Mononitrate 30 Mg Tab.Er.24h PO 30 mg DAILY ENEDELIA Administration Levothyroxine Sodium 88 mcg 01/14/25 06:30 01/16/25 06:42 Levothyroxine Sodium 88 Mcg Tablet PO 88 mcg DAILY@0630 ENEDELIA Administration Ondansetron HCl 4 mg 01/13/25 20:15 Ondansetron Inj 4 Mg/2 Ml Vial IV PUSH Q6H PRN Nausea And Vomiting Oseltamivir Phosphate 30 mg 01/17/25 09:00 Oseltamivir Phosphate 30 Mg Capsule PO 01/19/25 23:59 DAILY [facility] Oxybutynin Chloride 15 mg 01/14/25 09:00 01/16/25 09:11 Oxybutynin Chloride Xl 5 Mg Tab.Er.24 PO 15 mg DAILY ENEDELIA Administration Pantoprazole Sodium 40 mg 01/14/25 09:00 01/16/25 09:10 Pantoprazole 40 Mg Tablet PO 40 mg QAM ENEDELIA Administration Perflutren Lipid Microsphere 0 ml 01/14/25 16:01 Perflutren Lipid Microspheres 1.5 Ml Vial Diluted To 10 Ml Total Volume IV PUSH 01/17/25 16:02 ONCE PRN adequate visualization Protocol Prednisone 40 mg 01/15/25 08:00 01/16/25 09:09 Prednisone 20 Mg Tablet PO 40 mg DAILY@0800 ENEDELIA Administration Ranolazine 500 mg 01/13/25 21:00 01/16/25 09:10 Ranolazine 500 Mg Tab.Er.12h PO 500 mg Q12HR ENEDELIA Administration Rosuvastatin Calcium 40 mg 01/14/25 09:00 01/16/25 09:09 Rosuvastatin 20 Mg Tablet PO 40 mg DAILY ENEDELIA Administration Radiology Results: ITS Impressions Chest X-Ray 01/14/25 14:22 IMPRESSION: 1. Stable airspace opacities in left lower lobe, consistent with atelectasis versus pneumonia. Chest CTA 01/14/25 15:03 IMPRESSION: 1. Pulmonary embolism. 2. Bilateral basal pneumonia. 3. Trace of pericardial effusion. 4. Status post left nephrectomy and splenectomy. Prominent left adrenal gland. Physician: Jana Vieira APRN Was notified with the result of the patient at 3:24 PM on January 14, 2025 Venous Doppler Study 01/15/25 15:00 IMPRESSION: Bilateral deep vein thrombosis involving the posterior tibial and peroneal veins.. Labs Labs: Laboratory Results - last 24 hr 01/15/25 01/16/25 01/16/25 23:19 06:33 06:34 WBC 17.4 H RBC 3.17 L Hgb 9.7 L Hct 29.3 L MCV 92.4 MCH 30.6 MCHC 33.1 RDW 18.8 H Plt Count 242 MPV 10.0 Immature Gran % (Auto) 0.6 H Neut % (Auto) 90.2 H Lymph % (Auto) 5.9 L Emanuel % (Auto) 2.9 Eos % (Auto) 0.0 Baso % (Auto) 0.4 Lymph # (Auto) 1.03 Emanuel # (Auto) 0.5 Eos # (Auto) 0.0 Baso # (Auto) 0.1 Abs Immat Gran (auto) 0.11 H Absolute Neuts (auto) 15.7 H Absolute Nucleated RBC 0.030 H Nucleated RBC % 0.2 PT INR APTT 115.6 H 95.6 H Sodium 135 L Potassium 3.7 Chloride 102 Carbon Dioxide 20 L Anion Gap 13 H BUN 43 H Creatinine 1.68 H Estim Creat Clear Calc 27 Estimated GFR 30 L Glucose 119 H Calcium 7.8 L Total Bilirubin 0.5 AST 54 H ALT 37 H Alkaline Phosphatase 106 Total Protein 7.0 Albumin 3.1 L 01/16/25 01/16/25 12:44 12:50 WBC RBC Hgb Hct MCV MCH MCHC RDW Plt Count MPV Immature Gran % (Auto) Neut % (Auto) Lymph % (Auto) Emanuel % (Auto) Eos % (Auto) Baso % (Auto) Lymph # (Auto) Emanuel # (Auto) Eos # (Auto) Baso # (Auto) Abs Immat Gran (auto) Absolute Neuts (auto) Absolute Nucleated RBC Nucleated RBC % PT 14.1 INR 1.1 APTT 53.7 H Sodium Potassium Chloride Carbon Dioxide Anion Gap BUN Creatinine Estim Creat Clear Calc Estimated GFR Glucose Calcium Total Bilirubin AST ALT Alkaline Phosphatase Total Protein Albumin
[2025-01-16] MEDS: APIXABAN 5 MG TABLET 10 MG PO (18:38)
[2025-01-17] VITALS (31 sets, daily range): BP systolic 124–140; BP diastolic 55–59; PULSE 73–87; RESP 18–20; TEMP 36.6–37.3; O2SAT 91–97
[2025-01-17] MEDS: IPRATROPIUM 0.5 MG/ALBUTEROL SULFATE 2.5 MG AMPUL.NEB 3 ML INHALATION ×4 (02:17→19:27)
[2025-01-17 04:43] LABS: Hematocrit 27.1 % (37.0-47.0); Hemoglobin 9.1 g/dL (12.0-15.0); Mean Corpuscular HGB Conc 33.6 g/dl (32-36); Mean Corpuscular Hemoglobin 30.7 pg (26-34); Mean Corpuscular Volume 91.6 fl (80-100); Mean Platelet Volume 9.6 fl (7.4-10.4); Platelet Count Result 228 k/mm3 (150-375); Red Blood Count 2.96 M/mm3 (4.2-5.4); Red Cell Distribution Width 18.7 % (11.5-14.5); White Blood Count 16.7 K/mm3 (4.5-10.0)
[2025-01-17 04:55] LABS: Alanine Aminotransferase 127 U/L (6-35); Albumin Level 3.4 g/dL (3.5-5.1); Alkaline Phosphatase 123 U/L (38-126); Anion Gap 16 mmol/L (4-12); Aspartate Amino Transferase 194 U/L (14-36); Bilirubin,Total 0.5 mg/dL (0.2-1.3); Blood Urea Nitrogen 46 mg/dL (7-17); Calcium 7.8 mg/dL (8.4-10.2); Carbon Dioxide 20 mmol/L (22-30); Chloride 103 mmol/L (98-107); Estimated CRCL calculation 24 ml/min; Estimated Glomerular Filt Rate 26; Glucose 108 mg/dL (65-110); Potassium 3.4 mmol/L (3.4-5.0); Sodium 139 mmol/L (137-145)
[2025-01-17 05:06] LABS: Monocytes Absolute Manual 0.16 K/mm3 (0.1-0.90); Monocytes Percent Manual 1 % (3-9); Neutrophils Percent Manual 96 % (46-73); Total Cells Counted 100
[2025-01-17 05:07] LABS: Anisocytosis 1+; Atypical Lymphocytes Present; Burr Cells 1+; Platelet Estimate Adequate (Adequate); Schistocytes None Seen
[2025-01-17 05:08] LABS: Band Neutrophils Percent 0 % (0-6); Neutrophils Absolute Manual 16.03 K/mm3 (1.7-7.2)
[2025-01-17] MEDS: LEVOTHYROXINE SODIUM 88 MCG TABLET PO (05:41)
[2025-01-17] MEDS: oxyBUTYnin CHLORIDE XL 5 MG TAB.ER.24 15 MG PO (09:10)
[2025-01-17] MEDS: FELODIPINE 5 MG TAB CR 10 MG PO (09:10)
[2025-01-17] MEDS: guaiFENesin 12 HR 600 MG TABCR 1200 MG PO ×2 (09:10→21:08)
[2025-01-17] MEDS: ROSUVASTATIN 20 MG TABLET 40 MG PO (09:10)
[2025-01-17] MEDS: CLOPIDOGREL BISULFATE 75 MG TABLET PO (09:11)
[2025-01-17] MEDS: carvediloL 25 MG TABLET PO ×2 (09:11→21:08)
[2025-01-17] MEDS: OSELTAMIVIR PHOSPHATE 30 MG CAPSULE PO (09:11)
[2025-01-17] MEDS: RANOLAZINE 500 MG TAB.ER.12H PO ×2 (09:11→21:08)
[2025-01-17] MEDS: ISOSORBIDE MONONITRATE 30 MG TAB.ER.24H PO (09:11)
[2025-01-17] MEDS: predniSONE 20 MG TABLET 40 MG PO (09:11)
[2025-01-17] MEDS: APIXABAN 5 MG TABLET 10 MG PO ×2 (09:12→21:08)
[2025-01-17] MEDS: PANTOPRAZOLE 40 MG TABLET PO (09:12)
[2025-01-17] MEDS: AZITHROMYCIN 500 MG/NS 250 ML 500 MG/250 ML BAG 250 MG IVPB (09:33)
--- NOTE | 2025-01-17 10:54 | PM.PNCARD ---
Progress Note: A&P Assessment and Plan (1) Pulmonary embolism: Code(s): I26.99 - Other pulmonary embolism without acute cor pulmonale Status: Acute (2) Influenza A: Code(s): J10.1 - Influenza due to other identified influenza virus with other respiratory manifestations Status: Acute (3) Acute respiratory failure with hypoxia: Code(s): J96.01 - Acute respiratory failure with hypoxia Status: Acute Plan 1. Pulmonary embolism / DVT. CTA shows pulmonary embolism in the branches of the right and left lower and upper lobe arteries. Venous Duplex shows bilateral DVT involving the posterior tibial and peroneal veins. 2. Acute hypoxic respiratory failure 3. Influenza A 4. Left lower lobe pneumonia 5. COPD exacerbation 6. CAD with coronary stents. [facility] 01/13 with stable CAD. 7. CKD stage 3 8. AAA 9. History of DVT/PE 10. Paroxysmal atrial fibrillation 11. Hypertension 12. PVD PLAN: -Was on Warfarin as an outpatient, which has now been switched to Eliquis. Continue Eliquis with the DVT/PE dosing. -Antibiotic management as per Hospitalist. -Given history of DVT / PE in the past and now with recurrent DVT/PE, recommend outpatient hypercoagulable workup with Hematology consultation if not done in the past. -Continue home cardiac meds. Subjective Date/time seen: 01/17/25 10:54 Interval history: Reason for visit: Post cath patient HPI: 69 year old female with CAD with coronary stents, COPD, CKD stage 3, AAA, DVT, paroxysmal atrial fibrillation, PE, HTN, GERD, anxiety, gout, JANNY, migraines, hypothyroidism, PVD, former smoker who presented originally for an outpatient heart catheterization with Dr. Carvalho as a preop cardiac work up for hernia repair surgery. She was admitted for respiratory failure and has been found to have influenza A and pneumonia. Date of service 01/14: Continues to feel short of breath today. No chest pain. Date of service 01/15: Rapid called yesterday afternoon due to patient requiring high levels of oxygen and being more lethargic. CTA shows acute PE. Transferred to IMU. On HFNC this morning. Hemodynamically stable. Started on Heparin drip. Date of service 01/16: Denies any chest discomfort shortness of breath. However she is on high-flow oxygen at this time. No leg pain or swelling in the legs. Date of service 01/17: Quite sleepy this morning, feels tired. Review of Systems Cardiovascular: Cardiovascular: Reports as per HPI Exam Const: General: no acute distress Eyes: General: appearance normal, both eyes and all related structures Sclera: sclerae normal Resp: Effort & Inspection: normal respiratory effort Other: On HFNC Cardio: Rate: regular rate Rhythm: regular rhythm Skin: General skin exam: normal color Neuro: Speech: normal speech Objective Data Vital Signs Vital Signs: Vital Signs - 24 hr 01/16/25 11:03 01/16/25 11:55 01/16/25 12:00 Temperature 37.0 C Pulse Rate 88 88 Respiratory Rate 18 18 Blood Pressure 109/50 L Pulse Oximetry 93 94 94 Oxygen Delivery High Flow Therapy with Na High Flow Therapy with Na Oxygen Flow Rate 45 45 Fraction of Inspired Oxygen 65 65 01/16/25 12:00 01/16/25 14:00 01/16/25 14:50 Temperature Pulse Rate 88 81 Respiratory Rate Blood Pressure Pulse Oximetry 92 Oxygen Delivery High Flow Therapy with Na Oxygen Flow Rate 45 Fraction of Inspired Oxygen 65 01/16/25 14:50 01/16/25 15:02 01/16/25 15:57 Temperature 36.9 C Pulse Rate 85 84 84 Respiratory Rate 20 20 20 Blood Pressure 112/49 L Pulse Oximetry 96 Oxygen Delivery Oxygen Flow Rate Fraction of Inspired Oxygen 01/16/25 16:00 01/16/25 16:00 01/16/25 18:00 Temperature Pulse Rate 84 83 86 Respiratory Rate 20 Blood Pressure Pulse Oximetry 96 Oxygen Delivery High Flow Therapy with Na Oxygen Flow Rate 45 Fraction of Inspired Oxygen 65 01/16/25 20:00 01/16/25 20:00 01/16/25 20:01 Temperature Pulse Rate 87 87 Respiratory Rate Blood Pressure Pulse Oximetry 94 Oxygen Delivery High Flow Therapy with Na Oxygen Flow Rate 45 Fraction of Inspired Oxygen 60 01/16/25 20:10 01/16/25 20:12 01/16/25 20:17 Temperature Pulse Rate 88 Respiratory Rate 20 Blood Pressure Pulse Oximetry 95 97 Oxygen Delivery High Flow Therapy with Na High Flow Therapy with Na Oxygen Flow Rate 45 45 Fraction of Inspired Oxygen 65 60 01/16/25 20:17 01/16/25 20:29 01/16/25 22:00 Temperature 36.8 C Pulse Rate 90 88 81 Respiratory Rate 20 18 Blood Pressure 120/51 L Pulse Oximetry 94 Oxygen Delivery Oxygen Flow Rate Fraction of Inspired Oxygen 01/16/25 23:00 01/16/25 23:50 01/17/25 00:00 Temperature 36.7 C Pulse Rate 81 Respiratory Rate 22 H Blood Pressure 117/56 L Pulse Oximetry 95 95 94 Oxygen Delivery High Flow Therapy with Na High Flow Therapy with Na Oxygen Flow Rate 45 45 Fraction of Inspired Oxygen 55 55 01/17/25 00:00 01/17/25 02:00 01/17/25 02:18 Temperature Pulse Rate 84 84 82 Respiratory Rate 20 Blood Pressure Pulse Oximetry Oxygen Delivery Oxygen Flow Rate Fraction of Inspired Oxygen 01/17/25 02:25 01/17/25 03:42 01/17/25 04:00 Temperature Pulse Rate 82 84 Respiratory Rate 19 Blood Pressure Pulse Oximetry 91 Oxygen Delivery High Flow Therapy with Na Oxygen Flow Rate 45 Fraction of Inspired Oxygen 55 01/17/25 04:35 01/17/25 06:00 01/17/25 07:57 Temperature 37.0 C 37.1 C Pulse Rate 84 84 78 Respiratory Rate 20 20 Blood Pressure 126/59 L 130/57 L Pulse Oximetry 96 91 Oxygen Delivery Oxygen Flow Rate Fraction of Inspired Oxygen 01/17/25 08:02 01/17/25 08:02 01/17/25 08:17 Temperature Pulse Rate 87 87 87 Respiratory Rate 20 20 20 Blood Pressure Pulse Oximetry 92 Oxygen Delivery High Flow Therapy with Na Oxygen Flow Rate 45 Fraction of Inspired Oxygen 55 01/17/25 09:09 01/17/25 09:11 Temperature Pulse Rate 86 84 Respiratory Rate Blood Pressure 124/57 L Pulse Oximetry Oxygen Delivery Oxygen Flow Rate Fraction of Inspired Oxygen Intake/Output Intake/Output: Intake & Output 01/14/25 01/15/25 01/16/25 01/17/25 23:59 23:59 23:59 23:59 Intake Total 1010 2254.7 1073.1 460 Output Total 0 650 800 300 Balance 1010 1604.7 273.1 160 Meds/Results Medications: Active Medications Generic Name Dose Route Start Last Admin Trade Name Freq PRN Reason Stop Dose Admin Acetaminophen 650 mg 01/13/25 20:15 01/14/25 21:05 Acetaminophen 325 Mg Tablet PO 650 mg Q4H PRN Administration Mild Pain (1-3) or Fever Albuterol/Ipratropium 3 ml 01/13/25 20:00 01/17/25 08:02 Ipratropium 0.5 Mg/Albuterol Sulfate 2.5 Mg Ampul.Neb 3 Ml INHALATION 3 ml Q6HRT ENEDELIA Administration Apixaban 10 mg 01/16/25 19:00 01/17/25 09:12 Apixaban 5 Mg Tablet PO 01/23/25 09:01 10 mg Q12HR ENEDELIA Administration Apixaban 5 mg 01/23/25 21:00 Apixaban 5 Mg Tablet PO Q12HR ENEDELIA Benzocaine 1 lozenge 01/14/25 00:38 Benzocaine/Menthol (*Bkc) 18 Ea Lozenge PO PRN PRN Sore Throat Carvedilol 25 mg 01/13/25 21:00 01/17/25 09:11 Carvedilol 25 Mg Tablet PO 25 mg Q12HR ENEDELIA Administration Clopidogrel Bisulfate 75 mg 01/14/25 09:00 01/17/25 09:11 Clopidogrel Bisulfate 75 Mg Tablet PO 75 mg QAM ENEDELIA Administration Felodipine 10 mg 01/14/25 09:00 01/17/25 09:10 Felodipine 5 Mg Tab Cr PO 10 mg QAM ENEDELIA Administration Guaifenesin 1,200 mg 01/14/25 09:00 01/17/25 09:10 Guaifenesin 12 Hr 600 Mg Tabcr PO 1,200 mg Q12HR ENEDELIA Administration Ceftriaxone Sodium 1 gm in 50 mls @ 100 mls/hr 01/14/25 08:00 01/17/25 09:12 Rocephin 1 Gm/Ns 50 Ml IVPB 100 mls/hr QAM ENEDELIA Administration Azithromycin 500 mg in 250 mls @ 250 mls/hr 01/14/25 09:00 01/17/25 09:33 Zithromax IVPB 250 mls/hr QAM ENEDELIA Administration Isosorbide Mononitrate 30 mg 01/14/25 09:00 01/17/25 09:11 Isosorbide Mononitrate 30 Mg Tab.Er.24h PO 30 mg DAILY ENEDELIA Administration Levothyroxine Sodium 88 mcg 01/14/25 06:30 01/17/25 05:41 Levothyroxine Sodium 88 Mcg Tablet PO 88 mcg DAILY@0630 ENEDELIA Administration Ondansetron HCl 4 mg 01/13/25 20:15 Ondansetron Inj 4 Mg/2 Ml Vial IV PUSH Q6H PRN Nausea And Vomiting Oseltamivir Phosphate 30 mg 01/17/25 09:00 01/17/25 09:11 Oseltamivir Phosphate 30 Mg Capsule PO 01/19/25 23:59 30 mg DAILY ENEDELIA Administration Oxybutynin Chloride 15 mg 01/14/25 09:00 01/17/25 09:10 Oxybutynin Chloride Xl 5 Mg Tab.Er.24 PO 15 mg DAILY ENEDELIA Administration Pantoprazole Sodium 40 mg 01/14/25 09:00 01/17/25 09:12 Pantoprazole 40 Mg Tablet PO 40 mg QAM ENEDELIA Administration Perflutren Lipid Microsphere 0 ml 01/14/25 16:01 Perflutren Lipid Microspheres 1.5 Ml Vial Diluted To 10 Ml Total Volume IV PUSH 01/17/25 16:02 ONCE PRN adequate visualization Protocol Prednisone 40 mg 01/15/25 08:00 01/17/25 09:11 Prednisone 20 Mg Tablet PO 40 mg DAILY@0800 ENEDELIA Administration Ranolazine 500 mg 01/13/25 21:00 01/17/25 09:11 Ranolazine 500 Mg Tab.Er.12h PO 500 mg Q12HR ENEDELIA Administration Rosuvastatin Calcium 40 mg 01/14/25 09:00 01/17/25 09:10 Rosuvastatin 20 Mg Tablet PO 40 mg DAILY ENEDELIA Administration Radiology Results: ITS Impressions Chest X-Ray 01/14/25 14:22 IMPRESSION: 1. Stable airspace opacities in left lower lobe, consistent with atelectasis versus pneumonia. Chest CTA 01/14/25 15:03 IMPRESSION: 1. Pulmonary embolism. 2. Bilateral basal pneumonia. 3. Trace of pericardial effusion. 4. Status post left nephrectomy and splenectomy. Prominent left adrenal gland. Physician: Jana Vieira APRN Was notified with the result of the patient at 3:24 PM on January 14, 2025 Venous Doppler Study 01/15/25 15:00 IMPRESSION: Bilateral deep vein thrombosis involving the posterior tibial and peroneal veins.. Labs Labs: Laboratory Results - last 24 hr 01/16/25 01/16/25 01/17/25 12:44 12:50 04:28 WBC 16.7 H RBC 2.96 L Hgb 9.1 L Hct 27.1 L MCV 91.6 MCH 30.7 MCHC 33.6 RDW 18.7 H Plt Count 228 MPV 9.6 Immature Gran % (Auto) Not Reportable Neut % (Auto) Not Reportable Lymph % (Auto) Not Reportable [place] % (Auto) Not Reportable Eos % (Auto) Not Reportable Baso % (Auto) Not Reportable Lymph # (Auto) Not Reportable [place] # (Auto) Not Reportable Eos # (Auto) Not Reportable Baso # (Auto) Not Reportable Abs Immat Gran (auto) Not Reportable Absolute Neuts (auto) Not Reportable Absolute Nucleated RBC Not Reportable Total Counted 100 Neutrophils % (Manual) 96 H Band Neutrophils % 0 Lymphocytes % (Manual) 3.0 L Monocytes % (Manual) 1 L Nucleated RBC % Not Reportable Abs Neuts (Manual) 16.03 H Abs Lymphs (Manual) 0.50 L Abs Monocytes (Manual) 0.16 Atypical Lymphocytes Present Platelet Estimate Adequate Anisocytosis 1+ [place] Cells 1+ Schistocytes None seen PT 14.1 INR 1.1 APTT 53.7 H Sodium 139 Potassium 3.4 Chloride 103 Carbon Dioxide 20 L Anion Gap 16 H BUN 46 H Creatinine 1.94 H Estim Creat Clear Calc 24 Estimated GFR 26 L Glucose 108 Calcium 7.8 L Total Bilirubin 0.5 AST 194 H ALT 127 H Alkaline Phosphatase 123 Total Protein 7.0 Albumin 3.4 L
--- NOTE | 2025-01-17 11:19 | PC.NURSE ---
On 01/17/25, the student, [Arianna Medley], provided care and completed [facility] documentation on this patient. I have reviewed the student's documentation and agree with the findings.
[2025-01-17 17:25] LABS: INR 2.6; Prothrombin Time 27.8 Seconds (11.1-14.7)
--- NOTE | 2025-01-17 18:23 | P.PNIM_ITS ---
Progress Note: A&P Assessment and Plan (1) Pulmonary embolism: Code(s): I26.99 - Other pulmonary embolism without acute cor pulmonale Status: Acute Assessment and Plan: 3/4 rapid response for acute hypoxia CTA showing Pulmonary embolism is seen in the branches of the right and left lower and upper lobes arteries Echo pending to check for right heart strain Patient placed on heparin drip Monitor cardiac catheterization access site for hematoma Wean oxygen to SpO2 of 90% After CT patient lost her voice however she does not have stridor will treat for possible allergy and monitor closely, she has had contrast in the past without incident (2) Influenza A: Code(s): J10.1 - Influenza due to other identified influenza virus with other respiratory manifestations Status: Acute Assessment and Plan: Guaifenesin Tamiflu Tylenol (3) Pneumonia: Code(s): J18.9 - Pneumonia, unspecified organism Status: Acute Assessment and Plan: Left lower lobe pneumonia Started on Rocephin and azithromycin Breathing treatments Incentive spirometer (4) Acute respiratory failure with hypoxia: Code(s): J96.01 - Acute respiratory failure with hypoxia Status: Acute Assessment and Plan: * currently on 4 L nasal cannula, continue to wean for an O2 sat greater than 92% * continue DuoNeb breathing treatments q.6 hour * patient was given 1 dose of Lasix 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 * proBNP 746 (5) Chronic obstructive pulmonary disease: Code(s): J44.9 - Chronic obstructive pulmonary disease, unspecified Status: Acute Assessment and Plan: see above plan of care likely to exacerbation On antibiotics IV Solu-Medrol x1 Oral prednisone starting tomorrow (6) Coronary artery disease: Code(s): I25.10 - Atherosclerotic heart disease of [place] coronary artery without angina pectoris Status: Acute Assessment and Plan: * history of coronary artery disease with stent placement * continue cardiac monitoring * patient had a nuclear stress test and a PET myocardial perfusion imaging recently which were abnormal * status post cardiac catheterization today with Dr. Carvalho. LAD showed 40-50% stenosis, RCA 30-40% stenosis. This was for cardiac clearance for an upcoming hernia repair surgery. * cardiology primary this admission * continue rosuvastatin and Plavix * continue vascular checks to right radial puncture site (7) Stage 3a chronic kidney disease: Code(s): N18.31 - Chronic kidney disease, stage 3a Status: Acute Assessment and Plan: * labs today showed a creatinine of 1.36, EGFR 39 * baseline creatinine appears to trend between 1.17-1.22, EGFR ranging 44-46 * continue to trend (8) Paroxysmal atrial fibrillation: Code(s): I48.0 - Paroxysmal atrial fibrillation Status: Acute Assessment and Plan: * continue carvedilol * Coumadin on hold for today due to cardiac catheterization * INR 1.1 today * Deferring to Cardiology 1 to restart (9) Essential hypertension: Code(s): I10 - Essential (primary) hypertension Status: Acute Assessment and Plan: * blood pressure ranging 116/86 to 145/73 * continue felodipine and Imdur (10) Hypothyroidism: Code(s): E03.9 - Hypothyroidism, unspecified Status: Acute Assessment and Plan: * continue Synthroid * last TSH was 0.543 on 12/16/2023 TSH low (11) Anemia: Code(s): D64.9 - Anemia, unspecified Status: Acute Assessment and Plan: * hemoglobin 9.9 * appears chronic * iron 46, ferritin 65.20, vitamin B12 864 on 11/29/24 * TSH was 0.543 on 12/16/2023 Folate over 20, will hold while in hospital, patient could switch to every other day (12) GERD (gastroesophageal reflux disease): Code(s): K21.9 - Gastro-esophageal reflux disease without esophagitis Status: Acute Assessment and Plan: * start Protonix Plan Chest x-ray shows left lower lobe pneumonia started on antibiotics in a.m.. Patient had increasing oxygen demands overnight from 2 L to 4, however today she is progressively had higher oxygen demands and ended up having a rapid response (see critical care note for details) for hypoxia placed on on non breather CTA showed Pulmonary embolism is seen in the branches of the right and left lower and upper lobes arteries. Venous Doppler of bilateral lower extremity showed, bilateral deep vein thrombosis involving the posterior tibial and peroneal veins.. Patient also has bilateral pneumonia, patient is being treated with warfarin INR is subtherapeutic and bridge with Lovenox, we may discussed with the dietetic assistant to switch over to Eliquis and further recommendation to follow. Drapery Worker is agrreable to switch patient to DOAC, discus with pharmacist and will start Eliquis 10mg BID for 7 days thereafter switch to 5mg BID, patient still requiring high flow oxygen secondary to influenza A and exacerbation of COPD. Patient is being treated with Tamiflu, prednisone, duo neb, azithromycin and ceftriaxone will continue to monitor Subjective Date/time seen: 01/17/25 18:23 Interval history: 69 year old female with CAD with coronary stents, COPD, CKD stage 3, AAA, DVT, paroxysmal atrial fibrillation, PE, HTN, GERD, anxiety, GOUT, JANNY, migraines, hypothyroidism, PVD, former smoker who presented originally for an outpatient heart catheterization with Dr. Carvalho as a preop cardiac work up for hernia repair surgery. Hospitalist team consulted for acute respiratory failure with hypoxia secondary to flu A. Chest x-ray shows left lower lobe pneumonia started on antibiotics in a.m.. Patient had increasing oxygen demands overnight from 2 L to 4, however today she is progressively had higher oxygen demands and ended up having a rapid response (see critical care note for details) for hypoxia placed on on non breather CTA showed Pulmonary embolism is seen in the branches of the right and left lower and upper lobes arteries. Venous Doppler of bilateral lower extremity showed, bilateral deep vein thrombosis involving the posterior tibial and peroneal veins.. Patient also has bilateral pneumonia, patient is being treated with warfarin INR is subtherapeutic and bridge with Lovenox, we may discussed with the dietetic assistant to switch over to Eliquis and further recommendation to follow. Drapery Worker is agrreable to switch patient to DOAC, discus with pharmacist and will start Eliquis 10mg BID for 7 days thereafter switch to 5mg BID, patient still requiring high flow oxygen secondary to influenza A and exacerbation of COPD. Patient is being treated with Tamiflu, prednisone, duo neb, azithromycin and ceftriaxone will continue to monitor Review of Systems Review of Systems: All systems reviewed & are unremarkable except as noted in HPI and below Exam Narrative: Patient is comfortable, NAD HEENT: eyes are clear and none icteric LUNGS: Bilateral fair air entry with rhonchi and wheezing HEART: RR S1S2 ABD: BS+, Soft and nontender Lower extremities: no edema SKIN: nonjaundiced Neuro: grossly intact. Objective Data Vital Signs Vital Signs: Vital Signs - 24 hr 01/16/25 20:00 01/16/25 20:00 01/16/25 20:01 Temperature Pulse Rate 87 87 Respiratory Rate Blood Pressure Pulse Oximetry 94 Oxygen Delivery High Flow Therapy with Na Oxygen Flow Rate 45 Fraction of Inspired Oxygen 60 01/16/25 20:10 01/16/25 20:12 01/16/25 20:17 Temperature Pulse Rate 88 Respiratory Rate 20 Blood Pressure Pulse Oximetry 95 97 Oxygen Delivery High Flow Therapy with Na High Flow Therapy with Na Oxygen Flow Rate 45 45 Fraction of Inspired Oxygen 65 60 01/16/25 20:17 01/16/25 20:29 01/16/25 22:00 Temperature 36.8 C Pulse Rate 90 88 81 Respiratory Rate 20 18 Blood Pressure 120/51 L Pulse Oximetry 94 Oxygen Delivery Oxygen Flow Rate Fraction of Inspired Oxygen 01/16/25 23:00 01/16/25 23:50 01/17/25 00:00 Temperature 36.7 C Pulse Rate 81 Respiratory Rate 22 H Blood Pressure 117/56 L Pulse Oximetry 95 95 94 Oxygen Delivery High Flow Therapy with Na High Flow Therapy with Na Oxygen Flow Rate 45 45 Fraction of Inspired Oxygen 55 55 01/17/25 00:00 01/17/25 02:00 01/17/25 02:18 Temperature Pulse Rate 84 84 82 Respiratory Rate 20 Blood Pressure Pulse Oximetry Oxygen Delivery Oxygen Flow Rate Fraction of Inspired Oxygen 01/17/25 02:25 01/17/25 03:42 01/17/25 04:00 Temperature Pulse Rate 82 84 Respiratory Rate 19 Blood Pressure Pulse Oximetry 91 Oxygen Delivery High Flow Therapy with Na Oxygen Flow Rate 45 Fraction of Inspired Oxygen 55 01/17/25 04:35 01/17/25 06:00 01/17/25 07:57 Temperature 37.0 C 37.1 C Pulse Rate 84 84 78 Respiratory Rate 20 20 Blood Pressure 126/59 L 130/57 L Pulse Oximetry 96 91 Oxygen Delivery Oxygen Flow Rate Fraction of Inspired Oxygen 01/17/25 08:00 01/17/25 08:02 01/17/25 08:02 Temperature Pulse Rate 84 87 87 Respiratory Rate 20 20 Blood Pressure Pulse Oximetry 92 Oxygen Delivery High Flow Therapy with Na Oxygen Flow Rate 45 Fraction of Inspired Oxygen 55 01/17/25 08:17 01/17/25 09:09 01/17/25 09:11 Temperature Pulse Rate 87 86 84 Respiratory Rate 20 Blood Pressure 124/57 L Pulse Oximetry Oxygen Delivery Oxygen Flow Rate Fraction of Inspired Oxygen 01/17/25 10:00 01/17/25 11:49 01/17/25 12:00 Temperature 36.6 C Pulse Rate 84 74 73 Respiratory Rate 20 Blood Pressure 128/58 L Pulse Oximetry 97 Oxygen Delivery Oxygen Flow Rate Fraction of Inspired Oxygen 01/17/25 12:07 01/17/25 14:00 01/17/25 14:18 Temperature 37.0 C Pulse Rate 74 84 79 Respiratory Rate 18 20 Blood Pressure 131/55 L Pulse Oximetry 96 96 Oxygen Delivery High Flow Therapy with Na Oxygen Flow Rate 45 Fraction of Inspired Oxygen 55 01/17/25 14:18 01/17/25 14:28 01/17/25 16:00 Temperature 37.3 C Pulse Rate 79 81 83 Respiratory Rate 20 20 20 Blood Pressure 136/59 L Pulse Oximetry 95 Oxygen Delivery Oxygen Flow Rate Fraction of Inspired Oxygen Intake/Output Intake/Output: Intake & Output 01/14/25 01/15/25 01/16/25 01/17/25 23:59 23:59 23:59 23:59 Intake Total 1010 2254.7 1073.1 880 Output Total 0 650 800 600 Balance 1010 1604.7 273.1 280 Meds/Results Medications: Active Medications Generic Name Dose Route Start Last Admin Trade Name Freq PRN Reason Stop Dose Admin Acetaminophen 650 mg 01/13/25 20:15 01/14/25 21:05 Acetaminophen 325 Mg Tablet PO 650 mg Q4H PRN Administration Mild Pain (1-3) or Fever Albuterol/Ipratropium 3 ml 01/13/25 20:00 01/17/25 14:17 Ipratropium 0.5 Mg/Albuterol Sulfate 2.5 Mg Ampul.Neb 3 Ml INHALATION 3 ml Q6HRT [facility] Administration Apixaban 10 mg 01/16/25 19:00 01/17/25 09:12 Apixaban 5 Mg Tablet PO 01/23/25 09:01 10 mg Q12HR ENEDELIA Administration Apixaban 5 mg 01/23/25 21:00 Apixaban 5 Mg Tablet PO Q12HR [facility] Benzocaine 1 lozenge 01/14/25 00:38 Benzocaine/Menthol (*Bkc) 18 Ea Lozenge PO PRN PRN Sore Throat Carvedilol 25 mg 01/13/25 21:00 01/17/25 09:11 Carvedilol 25 Mg Tablet PO 25 mg Q12HR [facility] Administration Clopidogrel Bisulfate 75 mg 01/14/25 09:00 01/17/25 09:11 Clopidogrel Bisulfate 75 Mg Tablet PO 75 mg QAM ENEDELIA Administration Felodipine 10 mg 01/14/25 09:00 01/17/25 09:10 Felodipine 5 Mg Tab Cr PO 10 mg QAM ENEDELIA Administration Guaifenesin 1,200 mg 01/14/25 09:00 01/17/25 09:10 Guaifenesin 12 Hr 600 Mg Tabcr PO 1,200 mg Q12HR ENEDELIA Administration Ceftriaxone Sodium 1 gm in 50 mls @ 100 mls/hr 01/14/25 08:00 01/17/25 09:12 Rocephin 1 Gm/Ns 50 Ml IVPB 100 mls/hr QAM ENEDELIA Administration Azithromycin 500 mg in 250 mls @ 250 mls/hr 01/14/25 09:00 01/17/25 09:33 Zithromax IVPB 250 mls/hr QAM ENEDELIA Administration Isosorbide Mononitrate 30 mg 01/14/25 09:00 01/17/25 09:11 Isosorbide Mononitrate 30 Mg Tab.Er.24h PO 30 mg DAILY ENEDELIA Administration Levothyroxine Sodium 88 mcg 01/14/25 06:30 01/17/25 05:41 Levothyroxine Sodium 88 Mcg Tablet PO 88 mcg DAILY@0630 ENEDELIA Administration Ondansetron HCl 4 mg 01/13/25 20:15 Ondansetron Inj 4 Mg/2 Ml Vial IV PUSH Q6H PRN Nausea And Vomiting Oseltamivir Phosphate 30 mg 01/17/25 09:00 01/17/25 09:11 Oseltamivir Phosphate 30 Mg Capsule PO 01/19/25 23:59 30 mg DAILY ENEDELIA Administration Oxybutynin Chloride 15 mg 01/14/25 09:00 01/17/25 09:10 Oxybutynin Chloride Xl 5 Mg Tab.Er.24 PO 15 mg DAILY ENEDELIA Administration Pantoprazole Sodium 40 mg 01/14/25 09:00 01/17/25 09:12 Pantoprazole 40 Mg Tablet PO 40 mg QAM ENEDELIA Administration Prednisone 40 mg 01/15/25 08:00 01/17/25 09:11 Prednisone 20 Mg Tablet PO 40 mg DAILY@0800 ENEDELIA Administration Ranolazine 500 mg 01/13/25 21:00 01/17/25 09:11 Ranolazine 500 Mg Tab.Er.12h PO 500 mg Q12HR ENEDELIA Administration Rosuvastatin Calcium 40 mg 01/14/25 09:00 01/17/25 09:10 Rosuvastatin 20 Mg Tablet PO 40 mg DAILY ENEDELIA Administration Radiology Results: ITS Impressions Chest X-Ray 01/14/25 14:22 IMPRESSION: 1. Stable airspace opacities in left lower lobe, consistent with atelectasis versus pneumonia. Chest CTA 01/14/25 15:03 IMPRESSION: 1. Pulmonary embolism. 2. Bilateral basal pneumonia. 3. Trace of pericardial effusion. 4. Status post left nephrectomy and splenectomy. Prominent left adrenal gland. Physician: Jana Vieira APRN Was notified with the result of the patient at 3:24 PM on January 14, 2025 Venous Doppler Study 01/15/25 15:00 IMPRESSION: Bilateral deep vein thrombosis involving the posterior tibial and peroneal veins.. Labs Labs: Laboratory Results - last 24 hr 01/17/25 04:28 WBC 16.7 H RBC 2.96 L Hgb 9.1 L Hct 27.1 L MCV 91.6 MCH 30.7 MCHC 33.6 RDW 18.7 H Plt Count 228 MPV 9.6 Immature Gran % (Auto) Not Reportable Neut % (Auto) Not Reportable Lymph % (Auto) Not Reportable [place] % (Auto) Not Reportable Eos % (Auto) Not Reportable Baso % (Auto) Not Reportable Lymph # (Auto) Not Reportable [place] # (Auto) Not Reportable Eos # (Auto) Not Reportable Baso # (Auto) Not Reportable Abs Immat Gran (auto) Not Reportable Absolute Neuts (auto) Not Reportable Absolute Nucleated RBC Not Reportable Total Counted 100 Neutrophils % (Manual) 96 H Band Neutrophils % 0 Lymphocytes % (Manual) 3.0 L Monocytes % (Manual) 1 L Nucleated RBC % Not Reportable Abs Neuts (Manual) 16.03 H Abs Lymphs (Manual) 0.50 L Abs Monocytes (Manual) 0.16 Atypical Lymphocytes Present Platelet Estimate Adequate Anisocytosis 1+ [place] Cells 1+ Schistocytes None seen Sodium 139 Potassium 3.4 Chloride 103 Carbon Dioxide 20 L Anion Gap 16 H BUN 46 H Creatinine 1.94 H Estim Creat Clear Calc 24 Estimated GFR 26 L Glucose 108 Calcium 7.8 L Total Bilirubin 0.5 AST 194 H ALT 127 H Alkaline Phosphatase 123 Total Protein 7.0 Albumin 3.4 L Quality VTE Prophylaxis VTE prophylaxis: mechanical ordered
[2025-01-18] VITALS (30 sets, daily range): BP systolic 112–136; BP diastolic 52–67; PULSE 70–88; RESP 16–24; TEMP 36.8–37.2; O2SAT 90–97
[2025-01-18] MEDS: IPRATROPIUM 0.5 MG/ALBUTEROL SULFATE 2.5 MG AMPUL.NEB 3 ML INHALATION ×3 (02:23→20:23)
[2025-01-18 04:53] LABS: Basophils Percent Auto 0.2 % (0.2-1.2); Hematocrit 26.8 % (37.0-47.0); Hemoglobin 8.8 g/dL (12.0-15.0); Immature Granulocyte Absolute 0.13 K/mm3 (0.00-0.031); Lymphocytes Absolute Auto 0.92 K/mm3 (0.9-3.2); Lymphocytes Percent Auto 7.4 % (18.3-44.2); Mean Corpuscular HGB Conc 32.8 g/dl (32-36); Mean Corpuscular Hemoglobin 30.6 pg (26-34); Mean Corpuscular Volume 93.1 fl (80-100); Mean Platelet Volume 9.8 fl (7.4-10.4); Monocytes Absolute Auto 0.6 K/mm3 (0.1-0.6); Monocytes Percent Auto 4.7 % (2.6-8.5); Neutrophils Absolute Auto 10.9 K/mm3 (1.3-6.7); Neutrophils Percent Auto 86.7 % (45.5-73.1); Nucleated Red Blood Cells Perc 0.7 % (0.0-0.2); Platelet Count Result 245 k/mm3 (150-375); Red Blood Count 2.88 M/mm3 (4.2-5.4); Red Cell Distribution Width 18.2 % (11.5-14.5); White Blood Count 12.5 K/mm3 (4.5-10.0)
[2025-01-18 05:05] LABS: Alanine Aminotransferase 221 U/L (6-35); Albumin Level 3.4 g/dL (3.5-5.1); Alkaline Phosphatase 134 U/L (38-126); Anion Gap 16 mmol/L (4-12); Aspartate Amino Transferase 247 U/L (14-36); Bilirubin,Total 0.5 mg/dL (0.2-1.3); Blood Urea Nitrogen 41 mg/dL (7-17); Calcium 7.5 mg/dL (8.4-10.2); Carbon Dioxide 18 mmol/L (22-30); Chloride 103 mmol/L (98-107); Estimated CRCL calculation 24 ml/min; Estimated Glomerular Filt Rate 26; Glucose 115 mg/dL (65-110); Potassium 3.2 mmol/L (3.4-5.0); Sodium 137 mmol/L (137-145)
[2025-01-18] MEDS: LEVOTHYROXINE SODIUM 88 MCG TABLET PO (06:27)
[2025-01-18] MEDS: carvediloL 25 MG TABLET PO ×2 (09:25→20:11)
[2025-01-18] MEDS: OSELTAMIVIR PHOSPHATE 30 MG CAPSULE PO (09:25)
[2025-01-18] MEDS: CLOPIDOGREL BISULFATE 75 MG TABLET PO (09:25)
[2025-01-18] MEDS: oxyBUTYnin CHLORIDE XL 5 MG TAB.ER.24 15 MG PO (09:26)
[2025-01-18] MEDS: RANOLAZINE 500 MG TAB.ER.12H PO ×2 (09:26→20:11)
[2025-01-18] MEDS: FELODIPINE 5 MG TAB CR 10 MG PO (09:26)
[2025-01-18] MEDS: ROSUVASTATIN 20 MG TABLET 40 MG PO (09:26)
[2025-01-18] MEDS: guaiFENesin 12 HR 600 MG TABCR 1200 MG PO ×2 (09:27→20:12)
[2025-01-18] MEDS: APIXABAN 5 MG TABLET 10 MG PO ×2 (09:27→20:12)
[2025-01-18] MEDS: ISOSORBIDE MONONITRATE 30 MG TAB.ER.24H PO (09:27)
[2025-01-18] MEDS: AZITHROMYCIN 500 MG/NS 250 ML 500 MG/250 ML BAG 250 MG IVPB (09:32)
[2025-01-18] MEDS: predniSONE 20 MG TABLET 40 MG PO (09:32)
[2025-01-18] MEDS: PANTOPRAZOLE 40 MG TABLET PO (09:33)
--- NOTE | 2025-01-18 12:34 | PM.PNCARD ---
Progress Note: A&P Assessment and Plan (1) Atherosclerotic heart disease of [place] coronary artery without angina pectoris: Code(s): I25.10 - Atherosclerotic heart disease of [place] coronary artery without angina pectoris Status: Acute Plan 69-year-old lady with: Outpatient catheterization done on admission which demonstrated mild nonobstructive coronary artery disease. Study was done to assess her cardiac risk prior to noncardiac surgery. Unfortunately she was found to have pulmonary embolism and apparently also influenza pneumonitis following her angiogram. She remains in the hospital for treatment of these. She is on high-dose apixaban at this time and still has oxygen requirement. Normally she is on room air prior to admission. Will continue to follow along with the hospitalist team but at this point reasons for her to remain in the hospital are noncardiac Camron Garvin MD [facility] Subjective Date/time seen: Date of service: 01/18/25 12:34 Interval history: Reason for visit: Post cath patient HPI: 69 year old female with CAD with coronary stents, COPD, CKD stage 3, AAA, DVT, paroxysmal atrial fibrillation, PE, HTN, GERD, anxiety, gout, JANNY, migraines, hypothyroidism, PVD, former smoker who presented originally for an outpatient heart catheterization with Dr. Carvalho as a preop cardiac work up for hernia repair surgery. She was admitted for respiratory failure and has been found to have influenza A and pneumonia. Date of service 01/14: Continues to feel short of breath today. No chest pain. Date of service 01/15: Rapid called yesterday afternoon due to patient requiring high levels of oxygen and being more lethargic. CTA shows acute PE. Transferred to IMU. On HFNC this morning. Hemodynamically stable. Started on Heparin drip. Date of service 01/16: Denies any chest discomfort shortness of breath. However she is on high-flow oxygen at this time. No leg pain or swelling in the legs. Date of service 01/17: Quite sleepy this morning, feels tired. Date of service 01/19/2024: Patient is awake alert enjoying her lunch and visiting family. Still requiring nasal cannula O2. Patient and family are wondering how long she will be in the hospital. Reviewed with them the results of her catheterization as well as her PE and influenza pneumonia. Exam Const: General: comfortable, no acute distress and tired appearing Orientation/consciousness: patient oriented x3 Other: Ill-appearing HENMT: Head: normal to inspection Mouth: Yes moist mucous membranes Eyes: General: appearance normal, both eyes and all related structures Sclera: sclerae normal Pupils: Equal, round and reactive pupils present EOM: EOMs intact bilaterally Neck: Neck: normal visual inspection, supple and no JVD Carotids: normal carotid upstroke Resp: Effort & Inspection: normal respiratory effort Auscultation: crackles and rales Other: On HFNC Cardio: Rate: regular rate Rhythm: regular rhythm Heart sounds: S1 normal heart sound present, S2 normal heart sound present and no murmurs GI: Auscultation: normal bowel sounds Skin: General skin exam: normal color Neuro: General: patient oriented x3 Cranial nerves: Yes Equal, round and reactive pupils present Speech: normal speech Extrem: General: normal to inspection and no pedal edema Other: R radial arterial access site free from hematoma. There is some ecchymosis noted. Radial pulse intact. Psych: Appearance: grossly normal Mental Status: mental status grossly normal Affect: normal affect Objective Data Vital Signs Vital Signs: Vital Signs - 24 hr 01/17/25 14:00 01/17/25 14:18 01/17/25 14:18 Temperature Pulse Rate 84 79 79 Respiratory Rate 20 20 Blood Pressure Pulse Oximetry 96 Oxygen Delivery High Flow Therapy with Na Oxygen Flow Rate 45 Fraction of Inspired Oxygen 55 01/17/25 14:28 01/17/25 16:00 01/17/25 16:00 Temperature 37.3 C Pulse Rate 81 83 84 Respiratory Rate 20 20 Blood Pressure 136/59 L Pulse Oximetry 95 Oxygen Delivery Oxygen Flow Rate Fraction of Inspired Oxygen 01/17/25 18:00 01/17/25 19:27 01/17/25 19:27 Temperature Pulse Rate 83 84 84 Respiratory Rate 20 20 Blood Pressure Pulse Oximetry 94 Oxygen Delivery High Flow Therapy with Na Oxygen Flow Rate 45 Fraction of Inspired Oxygen 55 01/17/25 19:36 01/17/25 20:00 01/17/25 20:00 Temperature Pulse Rate 85 83 Respiratory Rate 20 Blood Pressure Pulse Oximetry 96 Oxygen Delivery High Flow Therapy with Na Oxygen Flow Rate 45 Fraction of Inspired Oxygen 55 01/17/25 20:34 01/17/25 21:08 01/17/25 22:00 Temperature 37.2 C Pulse Rate 81 80 82 Respiratory Rate 20 Blood Pressure 140/58 L Pulse Oximetry 95 Oxygen Delivery Oxygen Flow Rate Fraction of Inspired Oxygen 01/17/25 22:18 01/17/25 22:34 01/18/25 00:00 Temperature 37.2 C Pulse Rate 70 Respiratory Rate 20 Blood Pressure 123/65 Pulse Oximetry 96 95 95 Oxygen Delivery High Flow Therapy with Na High Flow Therapy with Na Oxygen Flow Rate 45 40 Fraction of Inspired Oxygen 55 50 01/18/25 00:00 01/18/25 00:00 01/18/25 02:00 Temperature Pulse Rate 77 76 Respiratory Rate Blood Pressure Pulse Oximetry 95 Oxygen Delivery High Flow Therapy with Na Oxygen Flow Rate 40 Fraction of Inspired Oxygen 50 01/18/25 02:23 01/18/25 02:23 01/18/25 02:30 Temperature Pulse Rate 77 Respiratory Rate 16 Blood Pressure Pulse Oximetry 94 94 Oxygen Delivery High Flow Therapy with Na High Flow Therapy with Na Oxygen Flow Rate 40 40 Fraction of Inspired Oxygen 50 45 01/18/25 02:35 01/18/25 03:05 01/18/25 04:00 Temperature Pulse Rate 79 Respiratory Rate 16 Blood Pressure Pulse Oximetry 94 95 Oxygen Delivery High Flow Therapy with Na High Flow Therapy with Na Oxygen Flow Rate 40 40 Fraction of Inspired Oxygen 45 45 01/18/25 04:00 01/18/25 04:18 01/18/25 06:00 Temperature 36.9 C Pulse Rate 81 80 83 Respiratory Rate 20 Blood Pressure 135/60 Pulse Oximetry 92 Oxygen Delivery Oxygen Flow Rate Fraction of Inspired Oxygen 01/18/25 08:00 01/18/25 08:00 01/18/25 08:00 Temperature 37.1 C Pulse Rate 88 85 85 Respiratory Rate 24 H 16 Blood Pressure 117/52 L Pulse Oximetry 90 90 Oxygen Delivery High Flow Therapy with Na Oxygen Flow Rate 40 Fraction of Inspired Oxygen 45 01/18/25 08:55 01/18/25 09:25 01/18/25 10:00 Temperature Pulse Rate 74 85 87 Respiratory Rate 16 Blood Pressure Pulse Oximetry Oxygen Delivery Oxygen Flow Rate Fraction of Inspired Oxygen 01/18/25 11:14 01/18/25 11:14 01/18/25 11:50 Temperature 36.8 C Pulse Rate 88 87 85 Respiratory Rate 16 20 Blood Pressure 136/67 Pulse Oximetry 90 91 Oxygen Delivery High Flow Therapy with Na Oxygen Flow Rate 40 Fraction of Inspired Oxygen 45 Intake/Output Intake/Output: Intake & Output 01/15/25 01/16/25 01/17/25 01/18/25 23:59 23:59 23:59 23:59 Intake Total 2254.7 1073.1 1180 670 Output Total 650 800 600 600 Balance 1604.7 273.1 580 70 Meds/Results Medications: Active Medications Generic Name Dose Route Start Last Admin Trade Name Freq PRN Reason Stop Dose Admin Acetaminophen 650 mg 01/13/25 20:15 01/14/25 21:05 Acetaminophen 325 Mg Tablet PO 650 mg Q4H PRN Administration Mild Pain (1-3) or Fever Albuterol/Ipratropium 3 ml 01/13/25 20:00 01/18/25 08:55 Ipratropium 0.5 Mg/Albuterol Sulfate 2.5 Mg Ampul.Neb 3 Ml INHALATION 3 ml Q6HRT ENEDELIA Administration Apixaban 10 mg 01/16/25 19:00 01/18/25 09:27 Apixaban 5 Mg Tablet PO 01/23/25 09:01 10 mg Q12HR ENEDELIA Administration Apixaban 5 mg 01/23/25 21:00 Apixaban 5 Mg Tablet PO Q12HR ENEDELIA Benzocaine 1 lozenge 01/14/25 00:38 Benzocaine/Menthol (*Bkc) 18 Ea Lozenge PO PRN PRN Sore Throat Carvedilol 25 mg 01/13/25 21:00 01/18/25 09:25 Carvedilol 25 Mg Tablet PO 25 mg Q12HR ENEDELIA Administration Clopidogrel Bisulfate 75 mg 01/14/25 09:00 01/18/25 09:25 Clopidogrel Bisulfate 75 Mg Tablet PO 75 mg QAM ENEDELIA Administration Felodipine 10 mg 01/14/25 09:00 01/18/25 09:26 Felodipine 5 Mg Tab Cr PO 10 mg QAM ENEDELIA Administration Guaifenesin 1,200 mg 01/14/25 09:00 01/18/25 09:27 Guaifenesin 12 Hr 600 Mg Tabcr PO 1,200 mg Q12HR ENEDELIA Administration Ceftriaxone Sodium 1 gm in 50 mls @ 100 mls/hr 01/14/25 08:00 01/18/25 09:33 Rocephin 1 Gm/Ns 50 Ml IVPB 100 mls/hr QAM ENEDELIA Administration Azithromycin 500 mg in 250 mls @ 250 mls/hr 01/14/25 09:00 01/18/25 09:32 Zithromax IVPB 250 mls/hr QAM ENEDELIA Administration Isosorbide Mononitrate 30 mg 01/14/25 09:00 01/18/25 09:27 Isosorbide Mononitrate 30 Mg Tab.Er.24h PO 30 mg DAILY ENEDELIA Administration Levothyroxine Sodium 88 mcg 01/14/25 06:30 01/18/25 06:27 Levothyroxine Sodium 88 Mcg Tablet PO 88 mcg DAILY@0630 ENEDELIA Administration Ondansetron HCl 4 mg 01/13/25 20:15 Ondansetron Inj 4 Mg/2 Ml Vial IV PUSH Q6H PRN Nausea And Vomiting Oseltamivir Phosphate 30 mg 01/17/25 09:00 01/18/25 09:25 Oseltamivir Phosphate 30 Mg Capsule PO 01/19/25 23:59 30 mg DAILY ENEDELIA Administration Oxybutynin Chloride 15 mg 01/14/25 09:00 01/18/25 09:26 Oxybutynin Chloride Xl 5 Mg Tab.Er.24 PO 15 mg DAILY ENEDELIA Administration Pantoprazole Sodium 40 mg 01/14/25 09:00 01/18/25 09:33 Pantoprazole 40 Mg Tablet PO 40 mg QAM ENEDELIA Administration Prednisone 40 mg 01/15/25 08:00 01/18/25 09:32 Prednisone 20 Mg Tablet PO 40 mg DAILY@0800 ENEDELIA Administration Ranolazine 500 mg 01/13/25 21:00 01/18/25 09:26 Ranolazine 500 Mg Tab.Er.12h PO 500 mg Q12HR ENEDELIA Administration Rosuvastatin Calcium 40 mg 01/14/25 09:00 01/18/25 09:26 Rosuvastatin 20 Mg Tablet PO 40 mg DAILY ENEDELIA Administration Radiology Results: ITS Impressions Chest X-Ray 01/14/25 14:22 IMPRESSION: 1. Stable airspace opacities in left lower lobe, consistent with atelectasis versus pneumonia. Chest CTA 01/14/25 15:03 IMPRESSION: 1. Pulmonary embolism. 2. Bilateral basal pneumonia. 3. Trace of pericardial effusion. 4. Status post left nephrectomy and splenectomy. Prominent left adrenal gland. Physician: Jana Vieira APRN Was notified with the result of the patient at 3:24 PM on January 14, 2025 Venous Doppler Study 01/15/25 15:00 IMPRESSION: Bilateral deep vein thrombosis involving the posterior tibial and peroneal veins.. Labs Labs: Laboratory Results - last 24 hr 01/17/25 01/18/25 17:00 04:39 WBC 12.5 H RBC 2.88 L Hgb 8.8 L Hct 26.8 L MCV 93.1 MCH 30.6 MCHC 32.8 RDW 18.2 H Plt Count 245 MPV 9.8 Immature Gran % (Auto) 1.0 H Neut % (Auto) 86.7 H Lymph % (Auto) 7.4 L [place] % (Auto) 4.7 Eos % (Auto) 0.0 Baso % (Auto) 0.2 Lymph # (Auto) 0.92 [place] # (Auto) 0.6 Eos # (Auto) 0.0 Baso # (Auto) 0.0 Abs Immat Gran (auto) 0.13 H Absolute Neuts (auto) 10.9 H Absolute Nucleated RBC 0.090 H Nucleated RBC % 0.7 H PT 27.8 H D INR 2.6 Sodium 137 Potassium 3.2 L Chloride 103 Carbon Dioxide 18 L Anion Gap 16 H BUN 41 H Creatinine 1.94 H Estim Creat Clear Calc 24 Estimated GFR 26 L Glucose 115 H Calcium 7.5 L Total Bilirubin 0.5 AST 247 H ALT 221 H Alkaline Phosphatase 134 H Total Protein 7.0 Albumin 3.4 L
--- NOTE | 2025-01-18 16:56 | PM.IMPN ---
Progress Note: A&P Assessment and Plan (1) Pulmonary embolism: Code(s): I26.99 - Other pulmonary embolism without acute cor pulmonale Status: Acute Assessment and Plan: 3/4 rapid response for acute hypoxia CTA showing Pulmonary embolism is seen in the branches of the right and left lower and upper lobes arteries Echo pending to check for right heart strain Patient placed on heparin drip Monitor cardiac catheterization access site for hematoma Wean oxygen to SpO2 of 90% After CT patient lost her voice however she does not have stridor will treat for possible allergy and monitor closely, she has had contrast in the past without incident (2) Influenza A: Code(s): J10.1 - Influenza due to other identified influenza virus with other respiratory manifestations Status: Acute Assessment and Plan: Guaifenesin Tamiflu Tylenol (3) Pneumonia: Code(s): J18.9 - Pneumonia, unspecified organism Status: Acute Assessment and Plan: Left lower lobe pneumonia Started on Rocephin and azithromycin Breathing treatments Incentive spirometer (4) Acute respiratory failure with hypoxia: Code(s): J96.01 - Acute respiratory failure with hypoxia Status: Acute Assessment and Plan: currently on 4 L nasal cannula, continue to wean for an O2 sat greater than 92% continue DuoNeb breathing treatments q.6 hour patient was given 1 dose of Lasix 40 mg IV 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 746 (5) Chronic obstructive pulmonary disease: Code(s): J44.9 - Chronic obstructive pulmonary disease, unspecified Status: Acute Assessment and Plan: see above plan of care likely to exacerbation On antibiotics IV Solu-Medrol x1 Oral prednisone starting tomorrow (6) Coronary artery disease: Code(s): I25.10 - Atherosclerotic heart disease of [place] coronary artery without angina pectoris Status: Acute Assessment and Plan: history of coronary artery disease with stent placement continue cardiac monitoring patient had a nuclear stress test and a PET myocardial perfusion imaging recently which were abnormal status post cardiac catheterization today with Dr. Carvalho. LAD showed 40-50% stenosis, RCA 30-40% stenosis. This was for cardiac clearance for an upcoming hernia repair surgery. cardiology primary this admission continue rosuvastatin and Plavix continue vascular checks to right radial puncture site (7) Stage 3a chronic kidney disease: Code(s): N18.31 - Chronic kidney disease, stage 3a Status: Acute Assessment and Plan: labs today showed a creatinine of 1.36, EGFR 39 baseline creatinine appears to trend between 1.17-1.22, EGFR ranging 44-46 continue to trend (8) Paroxysmal atrial fibrillation: Code(s): I48.0 - Paroxysmal atrial fibrillation Status: Acute Assessment and Plan: continue carvedilol Coumadin on hold for today due to cardiac catheterization INR 1.1 today Deferring to Cardiology 1 to restart (9) Essential hypertension: Code(s): I10 - Essential (primary) hypertension Status: Acute Assessment and Plan: blood pressure ranging 116/86 to 145/73 continue felodipine and Imdur (10) Hypothyroidism: Code(s): E03.9 - Hypothyroidism, unspecified Status: Acute Assessment and Plan: continue Synthroid last TSH was 0.543 on 12/16/2023 TSH low (11) Anemia: Code(s): D64.9 - Anemia, unspecified Status: Acute Assessment and Plan: hemoglobin 9.9 appears chronic iron 46, ferritin 65.20, vitamin B12 864 on 11/29/24 TSH was 0.543 on 12/16/2023 Folate over 20, will hold while in hospital, patient could switch to every other day (12) GERD (gastroesophageal reflux disease): Code(s): K21.9 - Gastro-esophageal reflux disease without esophagitis Status: Acute Assessment and Plan: start Protonix Plan Chest x-ray shows left lower lobe pneumonia started on antibiotics in a.m.. Patient had increasing oxygen demands overnight from 2 L to 4, however today she is progressively had higher oxygen demands and ended up having a rapid response (see critical care note for details) for hypoxia placed on on non breather CTA showed Pulmonary embolism is seen in the branches of the right and left lower and upper lobes arteries. Venous Doppler of bilateral lower extremity showed, bilateral deep vein thrombosis involving the posterior tibial and peroneal veins.. Patient also has bilateral pneumonia, patient is being treated with warfarin INR is subtherapeutic and bridge with Lovenox, we may discussed with the mathematical physicist to switch over to Eliquis and further recommendation to follow. Medical Imaging Technologist is agreeable to switch patient to DOAC, discus with pharmacist and started Eliquis 10mg BID for 7 days thereafter switch to 5mg BID, patient still requiring high flow oxygen secondary to influenza A, pneumonia and exacerbation of COPD. Patient is being treated with Tamiflu, prednisone, duo neb, azithromycin and ceftriaxone will continue to monitor. Subjective Date/time seen: 01/18/25 16:56 Interval history: 69 year old female with CAD with coronary stents, COPD, CKD stage 3, AAA, DVT, paroxysmal atrial fibrillation, PE, HTN, GERD, anxiety, GOUT, JANNY, migraines, hypothyroidism, PVD, former smoker who presented originally for an outpatient heart catheterization with Dr. Carvalho as a preop cardiac work up for hernia repair surgery. Hospitalist team consulted for acute respiratory failure with hypoxia secondary to flu A. Chest x-ray shows left lower lobe pneumonia started on antibiotics in a.m.. Patient had increasing oxygen demands overnight from 2 L to 4, however today she is progressively had higher oxygen demands and ended up having a rapid response (see critical care note for details) for hypoxia placed on on non breather CTA showed Pulmonary embolism is seen in the branches of the right and left lower and upper lobes arteries. Venous Doppler of bilateral lower extremity showed, bilateral deep vein thrombosis involving the posterior tibial and peroneal veins.. Patient also has bilateral pneumonia, patient is being treated with warfarin INR is subtherapeutic and bridge with Lovenox, we may discussed with the mathematical physicist to switch over to Eliquis and further recommendation to follow. Medical Imaging Technologist is agreeable to switch patient to DOAC, discus with pharmacist and started Eliquis 10mg BID for 7 days thereafter switch to 5mg BID, patient still requiring high flow oxygen secondary to influenza A, pneumonia and exacerbation of COPD. Patient is being treated with Tamiflu, prednisone, duo neb, azithromycin and ceftriaxone will continue to monitor. Review of Systems Review of Systems: All systems reviewed & are unremarkable except as noted in HPI and below Exam Narrative: Patient is comfortable, NAD HEENT: eyes are clear and none icteric LUNGS: Bilateral fair air entry with rhonchi and wheezing HEART: RR S1S2 ABD: BS+, Soft and nontender Lower extremities: no edema SKIN: nonjaundiced Neuro: grossly intact. Objective Data Vital Signs Vital Signs: Vital Signs - 24 hr 01/17/25 18:00 01/17/25 19:27 01/17/25 19:27 Temperature Pulse Rate 83 84 84 Respiratory Rate 20 20 Blood Pressure Pulse Oximetry 94 Oxygen Delivery High Flow Therapy with Na Oxygen Flow Rate 45 Fraction of Inspired Oxygen 55 01/17/25 19:36 01/17/25 20:00 01/17/25 20:00 Temperature Pulse Rate 85 83 Respiratory Rate 20 Blood Pressure Pulse Oximetry 96 Oxygen Delivery High Flow Therapy with Na Oxygen Flow Rate 45 Fraction of Inspired Oxygen 55 01/17/25 20:34 01/17/25 21:08 01/17/25 22:00 Temperature 37.2 C Pulse Rate 81 80 82 Respiratory Rate 20 Blood Pressure 140/58 L Pulse Oximetry 95 Oxygen Delivery Oxygen Flow Rate Fraction of Inspired Oxygen 01/17/25 22:18 01/17/25 22:34 01/18/25 00:00 Temperature 37.2 C Pulse Rate 70 Respiratory Rate 20 Blood Pressure 123/65 Pulse Oximetry 96 95 95 Oxygen Delivery High Flow Therapy with Na High Flow Therapy with Na Oxygen Flow Rate 45 40 Fraction of Inspired Oxygen 55 50 01/18/25 00:00 01/18/25 00:00 01/18/25 02:00 Temperature Pulse Rate 77 76 Respiratory Rate Blood Pressure Pulse Oximetry 95 Oxygen Delivery High Flow Therapy with Na Oxygen Flow Rate 40 Fraction of Inspired Oxygen 50 01/18/25 02:23 01/18/25 02:23 01/18/25 02:30 Temperature Pulse Rate 77 Respiratory Rate 16 Blood Pressure Pulse Oximetry 94 94 Oxygen Delivery High Flow Therapy with Na High Flow Therapy with Na Oxygen Flow Rate 40 40 Fraction of Inspired Oxygen 50 45 01/18/25 02:35 01/18/25 03:05 01/18/25 04:00 Temperature Pulse Rate 79 Respiratory Rate 16 Blood Pressure Pulse Oximetry 94 95 Oxygen Delivery High Flow Therapy with Na High Flow Therapy with Na Oxygen Flow Rate 40 40 Fraction of Inspired Oxygen 45 45 01/18/25 04:00 01/18/25 04:18 01/18/25 06:00 Temperature 36.9 C Pulse Rate 81 80 83 Respiratory Rate 20 Blood Pressure 135/60 Pulse Oximetry 92 Oxygen Delivery Oxygen Flow Rate Fraction of Inspired Oxygen 01/18/25 08:00 01/18/25 08:00 01/18/25 08:00 Temperature 37.1 C Pulse Rate 88 85 85 Respiratory Rate 24 H 16 Blood Pressure 117/52 L Pulse Oximetry 90 90 Oxygen Delivery High Flow Therapy with Na Oxygen Flow Rate 40 Fraction of Inspired Oxygen 45 01/18/25 08:35 01/18/25 08:55 01/18/25 09:05 Temperature Pulse Rate 74 78 Respiratory Rate 16 16 Blood Pressure Pulse Oximetry 93 Oxygen Delivery High Flow Therapy with Na Oxygen Flow Rate 40 Fraction of Inspired Oxygen 45 01/18/25 09:25 01/18/25 10:00 01/18/25 11:14 Temperature Pulse Rate 85 87 88 Respiratory Rate Blood Pressure Pulse Oximetry Oxygen Delivery Oxygen Flow Rate Fraction of Inspired Oxygen 01/18/25 11:14 01/18/25 11:50 01/18/25 14:00 Temperature 36.8 C Pulse Rate 87 85 85 Respiratory Rate 16 20 Blood Pressure 136/67 Pulse Oximetry 90 91 Oxygen Delivery High Flow Therapy with Na Oxygen Flow Rate 40 Fraction of Inspired Oxygen 45 01/18/25 14:35 01/18/25 14:40 01/18/25 15:56 Temperature 36.9 C Pulse Rate 76 80 Respiratory Rate 16 18 Blood Pressure 112/64 Pulse Oximetry 91 93 Oxygen Delivery High Flow Therapy with Na Oxygen Flow Rate 40 Fraction of Inspired Oxygen 45 01/18/25 16:00 01/18/25 16:00 Temperature Pulse Rate 80 80 Respiratory Rate 18 Blood Pressure Pulse Oximetry 93 Oxygen Delivery High Flow Therapy with Na Oxygen Flow Rate 40 Fraction of Inspired Oxygen 45 Intake/Output Intake/Output: Intake & Output 01/15/25 01/16/25 01/17/25 01/18/25 23:59 23:59 23:59 23:59 Intake Total 2254.7 1073.1 1180 910 Output Total 650 800 600 600 Balance 1604.7 273.1 580 310 Meds/Results Medications: Active Medications Generic Name Dose Route Start Last Admin Trade Name Freq PRN Reason Stop Dose Admin Acetaminophen 650 mg 01/13/25 20:15 01/14/25 21:05 Acetaminophen 325 Mg Tablet PO 650 mg Q4H PRN Administration Mild Pain (1-3) or Fever Albuterol/Ipratropium 3 ml 01/13/25 20:00 01/18/25 08:55 Ipratropium 0.5 Mg/Albuterol Sulfate 2.5 Mg Ampul.Neb 3 Ml INHALATION 3 ml Q6HRT ENEDELIA Administration Apixaban 10 mg 01/16/25 19:00 01/18/25 09:27 Apixaban 5 Mg Tablet PO 01/23/25 09:01 10 mg Q12HR ENEDELIA Administration Apixaban 5 mg 01/23/25 21:00 Apixaban 5 Mg Tablet PO Q12HR ENEDELIA Benzocaine 1 lozenge 01/14/25 00:38 Benzocaine/Menthol (*Bkc) 18 Ea Lozenge PO PRN PRN Sore Throat Carvedilol 25 mg 01/13/25 21:00 01/18/25 09:25 Carvedilol 25 Mg Tablet PO 25 mg Q12HR ENEDELIA Administration Clopidogrel Bisulfate 75 mg 01/14/25 09:00 01/18/25 09:25 Clopidogrel Bisulfate 75 Mg Tablet PO 75 mg QAM ENEDELIA Administration Felodipine 10 mg 01/14/25 09:00 01/18/25 09:26 Felodipine 5 Mg Tab Cr PO 10 mg QAM ENEDELIA Administration Guaifenesin 1,200 mg 01/14/25 09:00 01/18/25 09:27 Guaifenesin 12 Hr 600 Mg Tabcr PO 1,200 mg Q12HR ENEDELIA Administration Ceftriaxone Sodium 1 gm in 50 mls @ 100 mls/hr 01/14/25 08:00 01/18/25 09:33 Rocephin 1 Gm/Ns 50 Ml IVPB 100 mls/hr QAM ENEDELIA Administration Azithromycin 500 mg in 250 mls @ 250 mls/hr 01/14/25 09:00 01/18/25 09:32 Zithromax IVPB 250 mls/hr QAM [facility] Administration Isosorbide Mononitrate 30 mg 01/14/25 09:00 01/18/25 09:27 Isosorbide Mononitrate 30 Mg Tab.Er.24h PO 30 mg DAILY ENEDELAI Administration Levothyroxine Sodium 88 mcg 01/14/25 06:30 01/18/25 06:27 Levothyroxine Sodium 88 Mcg Tablet PO 88 mcg DAILY@0630 [facility] Administration Ondansetron HCl 4 mg 01/13/25 20:15 Ondansetron Inj 4 Mg/2 Ml Vial IV PUSH Q6H PRN Nausea And Vomiting Oseltamivir Phosphate 30 mg 01/17/25 09:00 01/18/25 09:25 Oseltamivir Phosphate 30 Mg Capsule PO 01/19/25 23:59 30 mg DAILY ENEDELIA Administration Oxybutynin Chloride 15 mg 01/14/25 09:00 01/18/25 09:26 Oxybutynin Chloride Xl 5 Mg Tab.Er.24 PO 15 mg DAILY ENEDELIA Administration Pantoprazole Sodium 40 mg 01/14/25 09:00 01/18/25 09:33 Pantoprazole 40 Mg Tablet PO 40 mg QAM ENEDELIA Administration Prednisone 40 mg 01/15/25 08:00 01/18/25 09:32 Prednisone 20 Mg Tablet PO 40 mg DAILY@0800 ENEDELIA Administration Ranolazine 500 mg 01/13/25 21:00 01/18/25 09:26 Ranolazine 500 Mg Tab.Er.12h PO 500 mg Q12HR ENEDELIA Administration Rosuvastatin Calcium 40 mg 01/14/25 09:00 01/18/25 09:26 Rosuvastatin 20 Mg Tablet PO 40 mg DAILY ENEDELIA Administration Radiology Results: ITS Impressions Chest X-Ray 01/14/25 14:22 IMPRESSION: 1. Stable airspace opacities in left lower lobe, consistent with atelectasis versus pneumonia. Chest CTA 01/14/25 15:03 IMPRESSION: 1. Pulmonary embolism. 2. Bilateral basal pneumonia. 3. Trace of pericardial effusion. 4. Status post left nephrectomy and splenectomy. Prominent left adrenal gland. Physician: Jana Vieira APRN Was notified with the result of the patient at 3:24 PM on January 14, 2025 Venous Doppler Study 01/15/25 15:00 IMPRESSION: Bilateral deep vein thrombosis involving the posterior tibial and peroneal veins.. Labs Labs: Laboratory Results - last 24 hr 01/17/25 01/18/25 17:00 04:39 WBC 12.5 H RBC 2.88 L Hgb 8.8 L Hct 26.8 L MCV 93.1 MCH 30.6 MCHC 32.8 RDW 18.2 H Plt Count 245 MPV 9.8 Immature Gran % (Auto) 1.0 H Neut % (Auto) 86.7 H Lymph % (Auto) 7.4 L [place] % (Auto) 4.7 Eos % (Auto) 0.0 Baso % (Auto) 0.2 Lymph # (Auto) 0.92 [place] # (Auto) 0.6 Eos # (Auto) 0.0 Baso # (Auto) 0.0 Abs Immat Gran (auto) 0.13 H Absolute Neuts (auto) 10.9 H Absolute Nucleated RBC 0.090 H Nucleated RBC % 0.7 H PT 27.8 H D INR 2.6 Sodium 137 Potassium 3.2 L Chloride 103 Carbon Dioxide 18 L Anion Gap 16 H BUN 41 H Creatinine 1.94 H Estim Creat Clear Calc 24 Estimated GFR 26 L Glucose 115 H Calcium 7.5 L Total Bilirubin 0.5 AST 247 H ALT 221 H Alkaline Phosphatase 134 H Total Protein 7.0 Albumin 3.4 L Quality VTE Prophylaxis VTE prophylaxis: mechanical ordered
[2025-01-19] VITALS (29 sets, daily range): BP systolic 108–134; BP diastolic 46–61; PULSE 70–83; RESP 14–24; TEMP 36.6–37.2; O2SAT 90–97
[2025-01-19] MEDS: IPRATROPIUM 0.5 MG/ALBUTEROL SULFATE 2.5 MG AMPUL.NEB 3 ML INHALATION ×4 (01:18→20:12)
--- NOTE | 2025-01-19 01:52 | PC.NURSE ---
Daylight Savings Time For Daylight Savings Time Ending in the Fall - Clocks are moved back. For Daylight Savings Time Beginning in the Spring - Clocks are moved ahead. For [facility], the time of change occurs at 0200 hrs. Time is taken from the fruit preserver. This entry on the patient's chart recognizes the change in time reflected during documentation. Example: 2 entries for vital signs may be charted for 0200 hrs.
[2025-01-19 04:25] LABS: Basophils Percent Auto 0.1 % (0.2-1.2); Hematocrit 25.2 % (37.0-47.0); Hemoglobin 8.6 g/dL (12.0-15.0); Immature Granulocyte Absolute 0.12 K/mm3 (0.00-0.031); Immature Granulocyte Percent A 1.1 % (0-0.5); Lymphocytes Absolute Auto 0.97 K/mm3 (0.9-3.2); Lymphocytes Percent Auto 9.1 % (18.3-44.2); Mean Corpuscular HGB Conc 34.1 g/dl (32-36); Mean Corpuscular Hemoglobin 31.2 pg (26-34); Mean Corpuscular Volume 91.3 fl (80-100); Mean Platelet Volume 10.2 fl (7.4-10.4); Monocytes Absolute Auto 0.5 K/mm3 (0.1-0.6); Neutrophils Percent Auto 84.7 % (45.5-73.1); Nucleated Red Blood Cells Perc 0.5 % (0.0-0.2); Platelet Count Result 255 k/mm3 (150-375); Red Blood Count 2.76 M/mm3 (4.2-5.4); Red Cell Distribution Width 17.8 % (11.5-14.5); White Blood Count 10.6 K/mm3 (4.5-10.0)
[2025-01-19 04:37] LABS: Alanine Aminotransferase 199 U/L (6-35); Albumin Level 3.1 g/dL (3.5-5.1); Alkaline Phosphatase 133 U/L (38-126); Anion Gap 11 mmol/L (4-12); Aspartate Amino Transferase 139 U/L (14-36); Bilirubin,Total 0.5 mg/dL (0.2-1.3); Blood Urea Nitrogen 32 mg/dL (7-17); Calcium 7.6 mg/dL (8.4-10.2); Carbon Dioxide 20 mmol/L (22-30); Chloride 105 mmol/L (98-107); Estimated CRCL calculation 29 ml/min; Estimated Glomerular Filt Rate 33; Glucose 116 mg/dL (65-110); Potassium 3.6 mmol/L (3.4-5.0); Sodium 136 mmol/L (137-145)
[2025-01-19] MEDS: LEVOTHYROXINE SODIUM 88 MCG TABLET PO (06:43)
[2025-01-19] MEDS: PANTOPRAZOLE 40 MG TABLET PO (08:51)
[2025-01-19] MEDS: CLOPIDOGREL BISULFATE 75 MG TABLET PO (08:51)
[2025-01-19] MEDS: ROSUVASTATIN 20 MG TABLET 40 MG PO (08:51)
[2025-01-19] MEDS: FELODIPINE 5 MG TAB CR 10 MG PO (08:51)
[2025-01-19] MEDS: APIXABAN 5 MG TABLET 10 MG PO ×2 (08:52→20:59)
[2025-01-19] MEDS: RANOLAZINE 500 MG TAB.ER.12H PO ×2 (08:52→20:59)
[2025-01-19] MEDS: OSELTAMIVIR PHOSPHATE 30 MG CAPSULE PO (08:52)
[2025-01-19] MEDS: carvediloL 25 MG TABLET PO ×2 (08:52→20:59)
[2025-01-19] MEDS: predniSONE 20 MG TABLET 40 MG PO (08:53)
[2025-01-19] MEDS: AZITHROMYCIN 500 MG/NS 250 ML 500 MG/250 ML BAG 250 MG IVPB (08:53)
[2025-01-19] MEDS: ISOSORBIDE MONONITRATE 30 MG TAB.ER.24H PO (08:53)
[2025-01-19] MEDS: guaiFENesin 12 HR 600 MG TABCR 1200 MG PO ×2 (08:53→20:59)
[2025-01-19] MEDS: oxyBUTYnin CHLORIDE XL 5 MG TAB.ER.24 15 MG PO (08:54)
--- NOTE | 2025-01-19 09:58 | P.PNCA_ITS ---
Progress Note: A&P Assessment and Plan (1) CAD (coronary artery disease): Qualifiers: Coronary Disease-Associated Artery/Lesion type: unspecified vessel or lesion type [place] vs. transplanted heart: [place] heart Associated angina: without angina Qualified Code(s): I25.10 - Atherosclerotic heart disease of [place] coronary artery without angina pectoris Code(s): I25.10 - Atherosclerotic heart disease of [place] coronary artery without angina pectoris Status: Acute Plan 69-year-old lady originally hospitalized for outpatient left heart catheterization which was remarkable for no significant obstructive coronary disease. She remains in the hospital as she developed viral pneumonia with influenza and has been managed from that respect from the primary team. According to the nurse caring for her this morning she still requires significant FiO2 supplementation she did become short of breath with minimal activity and desaturates easily when her oxygen is taken off to take her medication. That being the case she is obviously not stable for discharge Camron Garvin MD [facility] Subjective Date/time seen: Date of service: 01/19/25 09:58 Interval history: Reason for visit: Post cath patient HPI: 69 year old female with CAD with coronary stents, COPD, CKD stage 3, AAA, DVT, paroxysmal atrial fibrillation, PE, HTN, GERD, anxiety, gout, JANNY, migraines, hypothyroidism, PVD, former smoker who presented originally for an outpatient heart catheterization with Dr. Carvalho as a preop cardiac work up for hernia repair surgery. She was admitted for respiratory failure and has been found to have influenza A and pneumonia. Date of service 01/14: Continues to feel short of breath today. No chest pain. Date of service 01/15: Rapid called yesterday afternoon due to patient requiring high levels of oxygen and being more lethargic. CTA shows acute PE. Transferred to IMU. On HFNC this morning. Hemodynamically stable. Started on Heparin drip. Date of service 01/16: Denies any chest discomfort shortness of breath. However she is on high-flow oxygen at this time. No leg pain or swelling in the legs. Date of service 01/17: Quite sleepy this morning, feels tired. Date of service 01/19/2024: Patient is awake alert enjoying her lunch and visiting family. Still requiring nasal cannula O2. Patient and family are wondering how long she will be in the hospital. Reviewed with them the results of her catheterization as well as her PE and influenza pneumonia. Date of service 01/20/2024: Patient remains comfortable still wearing nasal cannula oxygen but offers no cardiovascular complaints continues to have a largely nonproductive cough, no fever, oxygenating well Exam Const: General: comfortable, no acute distress and tired appearing Orientation/consciousness: patient oriented x3 Other: Ill-appearing HENMT: Head: normal to inspection Mouth: Yes moist mucous membranes Eyes: General: appearance normal, both eyes and all related structures Sclera: sclerae normal Pupils: Equal, round and reactive pupils present EOM: EOMs intact bilaterally Neck: Neck: normal visual inspection, supple and no JVD Carotids: normal carotid upstroke Resp: Effort & Inspection: normal respiratory effort Auscultation: crackles and rales Other: On HFNC Cardio: Rate: regular rate Rhythm: regular rhythm Heart sounds: S1 normal heart sound present, S2 normal heart sound present and no murmurs GI: Auscultation: normal bowel sounds Skin: General skin exam: normal color Neuro: General: patient oriented x3 Cranial nerves: Yes Equal, round and reactive pupils present Speech: normal speech Extrem: General: normal to inspection and no pedal edema Other: R radial arterial access site free from hematoma. There is some ecchymosis noted. Radial pulse intact. Psych: Appearance: grossly normal Mental Status: mental status grossly normal Affect: normal affect Objective Data Vital Signs Vital Signs: Vital Signs - 24 hr 01/18/25 09:05 01/18/25 09:25 01/18/25 10:00 Temperature Pulse Rate 78 85 87 Respiratory Rate 16 Blood Pressure Pulse Oximetry Oxygen Delivery Oxygen Flow Rate Fraction of Inspired Oxygen 01/18/25 11:14 01/18/25 11:14 01/18/25 11:50 Temperature 36.8 C Pulse Rate 88 87 85 Respiratory Rate 16 20 Blood Pressure 136/67 Pulse Oximetry 90 91 Oxygen Delivery High Flow Therapy with Na Oxygen Flow Rate 40 Fraction of Inspired Oxygen 45 01/18/25 14:00 01/18/25 14:35 01/18/25 14:40 Temperature Pulse Rate 85 76 Respiratory Rate 16 Blood Pressure Pulse Oximetry 91 Oxygen Delivery High Flow Therapy with Na Oxygen Flow Rate 40 Fraction of Inspired Oxygen 45 01/18/25 15:56 01/18/25 16:00 01/18/25 16:00 Temperature 36.9 C Pulse Rate 80 80 80 Respiratory Rate 18 18 Blood Pressure 112/64 Pulse Oximetry 93 93 Oxygen Delivery High Flow Therapy with Na Oxygen Flow Rate 40 Fraction of Inspired Oxygen 45 01/18/25 18:00 01/18/25 20:00 01/18/25 20:00 Temperature Pulse Rate 81 74 Respiratory Rate Blood Pressure Pulse Oximetry 95 Oxygen Delivery High Flow Therapy with Na Oxygen Flow Rate 40 Fraction of Inspired Oxygen 41 01/18/25 20:11 01/18/25 20:23 01/18/25 20:25 Temperature 36.8 C Pulse Rate 73 77 Respiratory Rate 20 Blood Pressure 130/55 L Pulse Oximetry 94 97 Oxygen Delivery High Flow Therapy with Na Oxygen Flow Rate 40 Fraction of Inspired Oxygen 45 01/18/25 20:27 01/18/25 20:37 01/18/25 22:00 Temperature Pulse Rate 75 76 72 Respiratory Rate 18 18 Blood Pressure Pulse Oximetry Oxygen Delivery Oxygen Flow Rate Fraction of Inspired Oxygen 01/19/25 00:00 01/19/25 00:00 01/19/25 00:07 Temperature 37.1 C Pulse Rate 75 70 Respiratory Rate 20 Blood Pressure 125/53 L Pulse Oximetry 93 93 Oxygen Delivery High Flow Therapy with Na Oxygen Flow Rate 40 Fraction of Inspired Oxygen 41 01/19/25 01:19 01/19/25 01:28 01/19/25 03:00 Temperature Pulse Rate 70 72 70 Respiratory Rate 18 18 Blood Pressure Pulse Oximetry Oxygen Delivery Oxygen Flow Rate Fraction of Inspired Oxygen 01/19/25 03:16 01/19/25 04:00 01/19/25 04:00 Temperature 36.9 C Pulse Rate 75 71 Respiratory Rate 20 Blood Pressure 127/52 L Pulse Oximetry 96 95 Oxygen Delivery High Flow Therapy with Na Oxygen Flow Rate 40 Fraction of Inspired Oxygen 41 01/19/25 06:00 01/19/25 08:00 01/19/25 08:04 Temperature 36.8 C Pulse Rate 72 73 78 Respiratory Rate 24 H 20 Blood Pressure 119/58 L Pulse Oximetry 97 Oxygen Delivery Oxygen Flow Rate Fraction of Inspired Oxygen 01/19/25 08:06 01/19/25 08:15 01/19/25 08:52 Temperature Pulse Rate 75 75 Respiratory Rate 20 Blood Pressure Pulse Oximetry 93 Oxygen Delivery High Flow Therapy with Na Oxygen Flow Rate 40 Fraction of Inspired Oxygen 40 Intake/Output Intake/Output: Intake & Output 01/16/25 01/17/25 01/18/2510/25 23:59 23:59 23:59 00:59 Intake Total 1073.1 1180 1330 800 Output Total 227 496 7262 400 Balance 273.1 580 30 400 Meds/Results Medications: Active Medications Generic Name Dose Route Start Last Admin Trade Name Freq PRN Reason Stop Dose Admin Acetaminophen 650 mg 01/13/25 20:15 01/14/25 21:05 Acetaminophen 325 Mg Tablet PO 650 mg Q4H PRN Administration Mild Pain (1-3) or Fever Albuterol/Ipratropium 3 ml 01/13/25 20:00 01/19/25 08:04 Ipratropium 0.5 Mg/Albuterol Sulfate 2.5 Mg Ampul.Neb 3 Ml INHALATION 3 ml Q6HRT ENEDELIA Administration Apixaban 10 mg 01/16/25 19:00 01/19/25 08:52 Apixaban 5 Mg Tablet PO 01/23/25 09:01 10 mg Q12HR ENEDELIA Administration Apixaban 5 mg 01/23/25 21:00 Apixaban 5 Mg Tablet PO Q12HR ENEDELIA Benzocaine 1 lozenge 01/14/25 00:38 Benzocaine/Menthol (*Bkc) 18 Ea Lozenge PO PRN PRN Sore Throat Carvedilol 25 mg 01/13/25 21:00 01/19/25 08:52 Carvedilol 25 Mg Tablet PO 25 mg Q12HR ENEDELIA Administration Clopidogrel Bisulfate 75 mg 01/14/25 09:00 01/19/25 08:51 Clopidogrel Bisulfate 75 Mg Tablet PO 75 mg QAM ENEDELIA Administration Felodipine 10 mg 01/14/25 09:00 01/19/25 08:51 Felodipine 5 Mg Tab Cr PO 10 mg QAM ENEDELIA Administration Guaifenesin 1,200 mg 01/14/25 09:00 01/19/25 08:53 Guaifenesin 12 Hr 600 Mg Tabcr PO 1,200 mg Q12HR ENEDELIA Administration Ceftriaxone Sodium 1 gm in 50 mls @ 100 mls/hr 01/14/25 08:00 01/19/25 08:53 Rocephin 1 Gm/Ns 50 Ml IVPB 100 mls/hr QAM ENEDELIA Administration Azithromycin 500 mg in 250 mls @ 250 mls/hr 01/14/25 09:00 01/19/25 08:53 Zithromax IVPB 250 mls/hr QAM ENEDELIA Administration Isosorbide Mononitrate 30 mg 01/14/25 09:00 01/19/25 08:53 Isosorbide Mononitrate 30 Mg Tab.Er.24h PO 30 mg DAILY ENEDELIA Administration Levothyroxine Sodium 88 mcg 01/14/25 06:30 01/19/25 06:43 Levothyroxine Sodium 88 Mcg Tablet PO 88 mcg DAILY@0630 ENEDELAI Administration Ondansetron HCl 4 mg 01/13/25 20:15 Ondansetron Inj 4 Mg/2 Ml Vial IV PUSH Q6H PRN Nausea And Vomiting Oseltamivir Phosphate 30 mg 01/17/25 09:00 01/19/25 08:52 Oseltamivir Phosphate 30 Mg Capsule PO 01/19/25 23:59 30 mg DAILY ENEDELIA Administration Oxybutynin Chloride 15 mg 01/14/25 09:00 01/19/25 08:54 Oxybutynin Chloride Xl 5 Mg Tab.Er.24 PO 15 mg DAILY ENEDELIA Administration Pantoprazole Sodium 40 mg 01/14/25 09:00 01/19/25 08:51 Pantoprazole 40 Mg Tablet PO 40 mg QAM ENEDELIA Administration Prednisone 40 mg 01/15/25 08:00 01/19/25 08:53 Prednisone 20 Mg Tablet PO 40 mg DAILY@0800 ENEDELIA Administration Ranolazine 500 mg 01/13/25 21:00 01/19/25 08:52 Ranolazine 500 Mg Tab.Er.12h PO 500 mg Q12HR ENEDELIA Administration Rosuvastatin Calcium 40 mg 01/14/25 09:00 01/19/25 08:51 Rosuvastatin 20 Mg Tablet PO 40 mg DAILY ENEDELIA Administration Radiology Results: ITS Impressions Chest X-Ray 01/14/25 14:22 IMPRESSION: 1. Stable airspace opacities in left lower lobe, consistent with atelectasis versus pneumonia. Chest CTA 01/14/25 15:03 IMPRESSION: 1. Pulmonary embolism. 2. Bilateral basal pneumonia. 3. Trace of pericardial effusion. 4. Status post left nephrectomy and splenectomy. Prominent left adrenal gland. Physician: Jana Vieira APRN Was notified with the result of the patient at 3:24 PM on January 14, 2025 Venous Doppler Study 01/15/25 15:00 IMPRESSION: Bilateral deep vein thrombosis involving the posterior tibial and peroneal veins.. Labs Labs: Laboratory Results - last 24 hr 01/19/25 04:12 WBC 10.6 H RBC 2.76 L Hgb 8.6 L Hct 25.2 L MCV 91.3 MCH 31.2 MCHC 34.1 RDW 17.8 H Plt Count 255 MPV 10.2 Immature Gran % (Auto) 1.1 H Neut % (Auto) 84.7 H Lymph % (Auto) 9.1 L [place] % (Auto) 5.0 Eos % (Auto) 0.0 Baso % (Auto) 0.1 L Lymph # (Auto) 0.97 [place] # (Auto) 0.5 Eos # (Auto) 0.0 Baso # (Auto) 0.0 Abs Immat Gran (auto) 0.12 H Absolute Neuts (auto) 9.0 H Absolute Nucleated RBC 0.050 H Nucleated RBC % 0.5 H Sodium 136 L Potassium 3.6 Chloride 105 Carbon Dioxide 20 L Anion Gap 11 BUN 32 H Creatinine 1.57 H Estim Creat Clear Calc 29 Estimated GFR 33 L Glucose 116 H Calcium 7.6 L Total Bilirubin 0.5 AST 139 H ALT 199 H Alkaline Phosphatase 133 H Total Protein 7.0 Albumin 3.1 L
[2025-01-19 12:01] LABS: NT Pro B Type Natriuretic Pept 3280 pg/mL (19.9-100)
[2025-01-19 12:18] LABS: Procalcitonin 1.7 ng/mL
[2025-01-19 12:19] LABS: Alveolar/Arterial O2 Gradient 199.7 mmHg; Base Excess ABG -3.2 mEq/l (+/-2.0); Device HIGH FLOW THERAPY; Fractional Inspired Oxygen 40 %; HCO3 ABG 18.6 mEq/l (22.0-26.0); Modified Allen's Test Pass; Oxygen Content ABG 15.9 %vol (16.0-22.0); Oxygen Saturation ABG 92.3 % (95.0-100.0); Oxyhemoglobin 92.1 % THb (90.0-100.0); PCO2 ABG 24.9 mmHg (35.0-45.0); PO2 ABG 56.9 mmHg (80.0-100.0); PO2 FiO2 Ratio Arterial Blood 1.42 %; Site Drawn LEFT RADIAL; Total Hemoglobin 12.3 g/dL (12.0-18.0); pH ABG 7.491 (7.350-7.450)
--- NOTE | 2025-01-19 15:39 | P.PNIM_ITS ---
Progress Note: A&P Assessment and Plan (1) Pulmonary embolism: Code(s): I26.99 - Other pulmonary embolism without acute cor pulmonale Status: Acute Assessment and Plan: 3/4 rapid response for acute hypoxia CTA showing Pulmonary embolism is seen in the branches of the right and left lower and upper lobes arteries Echo pending to check for right heart strain Patient placed on heparin drip Monitor cardiac catheterization access site for hematoma Wean oxygen to SpO2 of 90% After CT patient lost her voice however she does not have stridor will treat for possible allergy and monitor closely, she has had contrast in the past without incident (2) Influenza A: Code(s): J10.1 - Influenza due to other identified influenza virus with other respiratory manifestations Status: Acute Assessment and Plan: Guaifenesin Tamiflu Tylenol (3) Pneumonia: Code(s): J18.9 - Pneumonia, unspecified organism Status: Acute Assessment and Plan: Left lower lobe pneumonia Started on Rocephin and azithromycin Breathing treatments Incentive spirometer (4) Acute respiratory failure with hypoxia: Code(s): J96.01 - Acute respiratory failure with hypoxia Status: Acute Assessment and Plan: * currently on 4 L nasal cannula, continue to wean for an O2 sat greater than 92% * continue DuoNeb breathing treatments q.6 hour * patient was given 1 dose of Lasix 40 mg IV while in cardiac catheter finisher and inspector recovery * proBNP 746 (5) Chronic obstructive pulmonary disease: Code(s): J44.9 - Chronic obstructive pulmonary disease, unspecified Status: Acute Assessment and Plan: see above plan of care likely to exacerbation On antibiotics IV Solu-Medrol x1 Oral prednisone starting tomorrow (6) Coronary artery disease: Code(s): I25.10 - Atherosclerotic heart disease of [place] coronary artery without angina pectoris Status: Acute Assessment and Plan: * history of coronary artery disease with stent placement * continue cardiac monitoring * patient had a nuclear stress test and a PET myocardial perfusion imaging recently which were abnormal * status post cardiac catheterization today with Dr. Carvalho. LAD showed 40-50% stenosis, RCA 30-40% stenosis. This was for cardiac clearance for an upcoming hernia repair surgery. * cardiology primary this admission * continue rosuvastatin and Plavix * continue vascular checks to right radial puncture site (7) Stage 3a chronic kidney disease: Code(s): N18.31 - Chronic kidney disease, stage 3a Status: Acute Assessment and Plan: * labs today showed a creatinine of 1.36, EGFR 39 * baseline creatinine appears to trend between 1.17-1.22, EGFR ranging 44-46 * continue to trend (8) Paroxysmal atrial fibrillation: Code(s): I48.0 - Paroxysmal atrial fibrillation Status: Acute Assessment and Plan: * continue carvedilol * Coumadin on hold for today due to cardiac catheterization * INR 1.1 today * Deferring to Cardiology 1 to restart (9) Essential hypertension: Code(s): I10 - Essential (primary) hypertension Status: Acute Assessment and Plan: * blood pressure ranging 116/86 to 145/73 * continue felodipine and Imdur (10) Hypothyroidism: Code(s): E03.9 - Hypothyroidism, unspecified Status: Acute Assessment and Plan: * continue Synthroid * last TSH was 0.543 on 12/16/2023 TSH low (11) Anemia: Code(s): D64.9 - Anemia, unspecified Status: Acute Assessment and Plan: * hemoglobin 9.9 * appears chronic * iron 46, ferritin 65.20, vitamin B12 864 on 11/29/24 * TSH was 0.543 on 12/16/2023 Folate over 20, will hold while in hospital, patient could switch to every other day (12) GERD (gastroesophageal reflux disease): Code(s): K21.9 - Gastro-esophageal reflux disease without esophagitis Status: Acute Assessment and Plan: * start Protonix Plan Chest x-ray shows left lower lobe pneumonia started on antibiotics in a.m.. Patient had increasing oxygen demands overnight from 2 L to 4, however today she is progressively had higher oxygen demands and ended up having a rapid response (see critical care note for details) for hypoxia placed on on non breather CTA showed Pulmonary embolism is seen in the branches of the right and left lower and upper lobes arteries. Venous Doppler of bilateral lower extremity showed, bilateral deep vein thrombosis involving the posterior tibial and peroneal veins.. Patient also has bilateral pneumonia, patient is being treated with warfarin INR is subtherapeutic and bridge with Lovenox, we may discussed with the acquisitions librarian to switch over to Eliquis and further recommendation to follow. Print Designer is agreeable to switch patient to DOAC, discus with pharmacist and started Eliquis 10mg BID for 7 days thereafter switch to 5mg BID, patient still requiring high flow oxygen secondary to influenza A, pneumonia and exacerbation of COPD. Patient is being treated with Tamiflu, prednisone, duo neb, azithromycin and ceftriaxone will continue to monitor. Patient continue to require high-flow oxygen and desatted with slight exertion, discussed with Dr. Morales urologic nurse reviewed the chart, recommended repeat ABG which did not show any hypercapnia, also extended course of Tamiflu to 10 days, and DC prednisone as it is not recommended with influenza A. Patient is seen by acquisitions librarian, Patient will be seen by pulmonology tomorrow and further recommendation to follow. Subjective Date/time seen: 01/19/25 15:39 Interval history: 69 year old female with CAD with coronary stents, COPD, CKD stage 3, AAA, DVT, paroxysmal atrial fibrillation, PE, HTN, GERD, anxiety, GOUT, JANNY, migraines, hypothyroidism, PVD, former smoker who presented originally for an outpatient heart catheterization with Dr. Carvalho as a preop cardiac work up for hernia repair surgery. Hospitalist team consulted for acute respiratory failure with hypoxia secondary to flu A. Chest x-ray shows left lower lobe pneumonia started on antibiotics in a.m.. Patient had increasing oxygen demands overnight from 2 L to 4, however today she is progressively had higher oxygen demands and ended up having a rapid response (see critical care note for details) for hypoxia placed on on non breather CTA showed Pulmonary embolism is seen in the branches of the right and left lower and upper lobes arteries. Venous Doppler of bilateral lower extremity showed, bilateral deep vein thrombosis involving the posterior tibial and peroneal veins.. Patient also has bilateral pneumonia, patient is being treated with w arfarin INR is subtherapeutic and bridge with Lovenox, we may discussed with the acquisitions librarian to switch over to Eliquis and further recommendation to follow. Print Designer is agreeable to switch patient to DOAC, discus with pharmacist and started Eliquis 10mg BID for 7 days thereafter switch to 5mg BID, patient still requiring high flow oxygen secondary to influenza A, pneumonia and exacerbation of COPD. Patient is being treated with Tamiflu, prednisone, duo neb, azithromycin and ceftriaxone will continue to monitor. Patient continue to require high-flow oxygen and desatted with slight exertion, discussed with Dr. Morales urologic nurse reviewed the chart, recommended repeat ABG which did not show any hypercapnia, also extended course of Tamiflu to 10 days, and DC prednisone as it is not recommended with influenza A. Patient is seen by acquisitions librarian, Patient will be seen by pulmonology tomorrow and further recommendation to follow. Review of Systems Review of Systems: All systems reviewed & are unremarkable except as noted in HPI and below Exam Narrative: Patient is comfortable, NAD HEENT: eyes are clear and none icteric LUNGS: Bilateral fair air entry with rhonchi and wheezing HEART: RR S1S2 ABD: BS+, Soft and nontender Lower extremities: no edema SKIN: nonjaundiced Neuro: grossly intact. Objective Data Vital Signs Vital Signs: Vital Signs - 24 hr 01/18/25 14:40 01/18/25 15:56 01/18/25 16:00 Temperature 36.9 C Pulse Rate 76 80 80 Respiratory Rate 16 18 18 Blood Pressure 112/64 Pulse Oximetry 93 93 Oxygen Delivery High Flow Therapy with Na Oxygen Flow Rate 40 Fraction of Inspired Oxygen 45 01/18/25 16:00 01/18/25 18:00 01/18/25 20:00 Temperature Pulse Rate 80 81 Respiratory Rate Blood Pressure Pulse Oximetry 95 Oxygen Delivery High Flow Therapy with Na Oxygen Flow Rate 40 Fraction of Inspired Oxygen 41 01/18/25 20:00 01/18/25 20:11 01/18/25 20:23 Temperature 36.8 C Pulse Rate 74 73 77 Respiratory Rate 20 Blood Pressure 130/55 L Pulse Oximetry 94 Oxygen Delivery Oxygen Flow Rate Fraction of Inspired Oxygen 01/18/25 20:25 01/18/25 20:27 01/18/25 20:37 Temperature Pulse Rate 75 76 Respiratory Rate 18 18 Blood Pressure Pulse Oximetry 97 Oxygen Delivery High Flow Therapy with Na Oxygen Flow Rate 40 Fraction of Inspired Oxygen 45 01/18/25 22:00 01/19/25 00:00 01/19/25 00:00 Temperature Pulse Rate 72 75 Respiratory Rate Blood Pressure Pulse Oximetry 93 Oxygen Delivery High Flow Therapy with Na Oxygen Flow Rate 40 Fraction of Inspired Oxygen 41 01/19/25 00:07 01/19/25 01:19 01/19/25 01:28 Temperature 37.1 C Pulse Rate 70 70 72 Respiratory Rate 20 18 18 Blood Pressure 125/53 L Pulse Oximetry 93 Oxygen Delivery Oxygen Flow Rate Fraction of Inspired Oxygen 01/19/25 03:00 01/19/25 03:16 01/19/25 04:00 Temperature 36.9 C Pulse Rate 70 75 71 Respiratory Rate 20 Blood Pressure 127/52 L Pulse Oximetry 96 Oxygen Delivery Oxygen Flow Rate Fraction of Inspired Oxygen 01/19/25 04:00 01/19/25 06:00 01/19/25 08:00 Temperature 36.8 C Pulse Rate 72 73 Respiratory Rate 24 H Blood Pressure 119/58 L Pulse Oximetry 95 97 Oxygen Delivery High Flow Therapy with Na Oxygen Flow Rate 40 Fraction of Inspired Oxygen 41 01/19/25 08:00 01/19/25 08:00 01/19/25 08:04 Temperature Pulse Rate 75 75 78 Respiratory Rate 20 20 Blood Pressure Pulse Oximetry 93 Oxygen Delivery High Flow Therapy with Na Oxygen Flow Rate 40 Fraction of Inspired Oxygen 40 01/19/25 08:06 01/19/25 08:15 01/19/25 08:52 Temperature Pulse Rate 75 75 Respiratory Rate 20 Blood Pressure Pulse Oximetry 93 Oxygen Delivery High Flow Therapy with Na Oxygen Flow Rate 40 Fraction of Inspired Oxygen 40 01/19/25 10:00 01/19/25 12:00 01/19/25 12:00 Temperature Pulse Rate 76 76 76 Respiratory Rate 14 Blood Pressure Pulse Oximetry 96 Oxygen Delivery High Flow Nasal Cannula Oxygen Flow Rate 40 Fraction of Inspired Oxygen 40 01/19/25 12:00 01/19/25 12:12 01/19/25 14:00 Temperature 36.6 C Pulse Rate 76 78 Respiratory Rate 14 Blood Pressure 108/46 L Pulse Oximetry 93 96 Oxygen Delivery High Flow Nasal Cannula Oxygen Flow Rate 15 Fraction of Inspired Oxygen 01/19/25 14:12 01/19/25 14:13 01/19/25 14:18 Temperature Pulse Rate 76 78 Respiratory Rate 18 18 Blood Pressure Pulse Oximetry 96 Oxygen Delivery High Flow Nasal Cannula Oxygen Flow Rate 13 Fraction of Inspired Oxygen 01/19/25 15:31 Temperature 37.1 C Pulse Rate 76 Respiratory Rate 20 Blood Pressure 116/49 L Pulse Oximetry 96 Oxygen Delivery Oxygen Flow Rate Fraction of Inspired Oxygen Intake/Output Intake/Output: Intake & Output 01/16/25 01/17/25 01/18/25 01/20/25 23:59 23:59 23:59 00:59 Intake Total 1073.1 1180 1330 920 Output Total 890 199 1477 400 Balance 273.1 580 30 520 Meds/Results Medications: Active Medications Generic Name Dose Route Start Last Admin Trade Name Freq PRN Reason Stop Dose Admin Acetaminophen 650 mg 01/13/25 20:15 01/14/25 21:05 Acetaminophen 325 Mg Tablet PO 650 mg Q4H PRN Administration Mild Pain (1-3) or Fever Albuterol/Ipratropium 3 ml 01/13/25 20:00 01/19/25 14:10 Ipratropium 0.5 Mg/Albuterol Sulfate 2.5 Mg Ampul.Neb 3 Ml INHALATION 3 ml Q6HRT ENEDELIA Administration Apixaban 10 mg 01/16/25 19:00 01/19/25 08:52 Apixaban 5 Mg Tablet PO 01/23/25 09:01 10 mg Q12HR ENEDELIA Administration Apixaban 5 mg 01/23/25 21:00 Apixaban 5 Mg Tablet PO Q12HR ENEDELIA Benzocaine 1 lozenge 01/14/25 00:38 Benzocaine/Menthol (*Bkc) 18 Ea Lozenge PO PRN PRN Sore Throat Carvedilol 25 mg 01/13/25 21:00 01/19/25 08:52 Carvedilol 25 Mg Tablet PO 25 mg Q12HR ENEDELIA Administration Clopidogrel Bisulfate 75 mg 01/14/25 09:00 01/19/25 08:51 Clopidogrel Bisulfate 75 Mg Tablet PO 75 mg QAM ENEDELIA Administration Felodipine 10 mg 01/14/25 09:00 01/19/25 08:51 Felodipine 5 Mg Tab Cr PO 10 mg QAM ENEDELIA Administration Guaifenesin 1,200 mg 01/14/25 09:00 01/19/25 08:53 Guaifenesin 12 Hr 600 Mg Tabcr PO 1,200 mg Q12HR ENEDELIA Administration Ceftriaxone Sodium 1 gm in 50 mls @ 100 mls/hr 01/14/25 08:00 01/19/25 08:53 Rocephin 1 Gm/Ns 50 Ml IVPB 100 mls/hr QAM ENEDELIA Administration Azithromycin 500 mg in 250 mls @ 250 mls/hr 01/14/25 09:00 01/19/25 08:53 Zithromax IVPB 250 mls/hr QAM ENEDELIA Administration Isosorbide Mononitrate 30 mg 01/14/25 09:00 01/19/25 08:53 Isosorbide Mononitrate 30 Mg Tab.Er.24h PO 30 mg DAILY ENEDELIA Administration Levothyroxine Sodium 88 mcg 01/14/25 06:30 01/19/25 06:43 Levothyroxine Sodium 88 Mcg Tablet PO 88 mcg DAILY@0630 ENEDELIA Administration Ondansetron HCl 4 mg 01/13/25 20:15 Ondansetron Inj 4 Mg/2 Ml Vial IV PUSH Q6H PRN Nausea And Vomiting Oseltamivir Phosphate 30 mg 01/17/25 09:00 01/19/25 08:52 Oseltamivir Phosphate 30 Mg Capsule PO 01/23/25 09:01 30 mg DAILY ENEDELIA Administration Oxybutynin Chloride 15 mg 01/14/25 09:00 01/19/25 08:54 Oxybutynin Chloride Xl 5 Mg Tab.Er.24 PO 15 mg DAILY ENEDELIA Administration Pantoprazole Sodium 40 mg 01/14/25 09:00 01/19/25 08:51 Pantoprazole 40 Mg Tablet PO 40 mg QAM ENEDELIA Administration Perflutren Lipid Microsphere 0 ml 01/19/25 11:34 Perflutren Lipid Microspheres 1.5 Ml Vial Diluted To 10 Ml Total Volume IV PUSH 01/22/25 11:34 ONCE PRN adequate visualization Protocol Ranolazine 500 mg 01/13/25 21:00 01/19/25 08:52 Ranolazine 500 Mg Tab.Er.12h PO 500 mg Q12HR ENEDELIA Administration Rosuvastatin Calcium 40 mg 01/14/25 09:00 01/19/25 08:51 Rosuvastatin 20 Mg Tablet PO 40 mg DAILY ENEDELIA Administration Radiology Results: ITS Impressions Chest X-Ray 01/14/25 14:22 IMPRESSION: 1. Stable airspace opacities in left lower lobe, consistent with atelectasis versus pneumonia. Chest CTA 01/14/25 15:03 IMPRESSION: 1. Pulmonary embolism. 2. Bilateral basal pneumonia. 3. Trace of pericardial effusion. 4. Status post left nephrectomy and splenectomy. Prominent left adrenal gland. Physician: Jana Vieira APRN Was notified with the result of the patient at 3:24 PM on January 14, 2025 Venous Doppler Study 01/15/25 15:00 IMPRESSION: Bilateral deep vein thrombosis involving the posterior tibial and peroneal veins.. Labs Labs: Laboratory Results - last 24 hr 01/19/25 01/19/25 01/19/25 04:02 04:12 12:03 WBC 10.6 H RBC 2.76 L Hgb 8.6 L Hct 25.2 L MCV 91.3 MCH 31.2 MCHC 34.1 RDW 17.8 H Plt Count 255 MPV 10.2 Immature Gran % (Auto) 1.1 H Neut % (Auto) 84.7 H Lymph % (Auto) 9.1 L [place] % (Auto) 5.0 Eos % (Auto) 0.0 Baso % (Auto) 0.1 L Lymph # (Auto) 0.97 [place] # (Auto) 0.5 Eos # (Auto) 0.0 Baso # (Auto) 0.0 Abs Immat Gran (auto) 0.12 H Absolute Neuts (auto) 9.0 H Absolute Nucleated RBC 0.050 H Nucleated RBC % 0.5 H Puncture Site Left radial ABG pH 7.491 H ABG pCO2 24.9 L ABG pO2 56.9 L ABG PO2/FiO2 Ratio 1.42 ABG HCO3 18.6 L ABG O2 Saturation 92.3 L ABG O2 Content 15.9 L ABG Base Excess -3.2 A-a Gradient 199.7 Oxyhemoglobin 92.1 Total Hemoglobin 12.3 O2 Delivery Device High flow therapy O2 Liters/Min 40.0 FiO2 40 Sodium 136 L Potassium 3.6 Chloride 105 Carbon Dioxide 20 L Anion Gap 11 BUN 32 H Creatinine 1.57 H Estim Creat Clear Calc 29 Estimated GFR 33 L Glucose 116 H Calcium 7.6 L Total Bilirubin 0.5 AST 139 H ALT 199 H Alkaline Phosphatase 133 H NT-Pro-B Natriuret Pep 3280 H Total Protein 7.0 Albumin 3.1 L Procalcitonin 1.7 Quality VTE Prophylaxis VTE prophylaxis: mechanical ordered
[2025-01-19 16:47] LABS: INR 3.4; Prothrombin Time 34.5 Seconds (11.1-14.7)
[2025-01-19] MEDS: WATER FOR IRRIGATION, STERILE 1,000 ML BOTTLE 1000 ML (21:00)
[2025-01-20] VITALS (30 sets, daily range): BP systolic 124–137; BP diastolic 53–64; PULSE 70–99; RESP 16–20; TEMP 36.4–36.8; O2SAT 91–100; BMI 29.7
[2025-01-20 01:30] LABS: MRSA (PCR) NOT DETECTED (NOT DETECTE)
[2025-01-20] MEDS: IPRATROPIUM 0.5 MG/ALBUTEROL SULFATE 2.5 MG AMPUL.NEB 3 ML INHALATION ×4 (02:10→20:38)
[2025-01-20 04:37] LABS: Basophils Percent Auto 0.3 % (0.2-1.2); Hematocrit 26.5 % (37.0-47.0); Hemoglobin 8.9 g/dL (12.0-15.0); Immature Granulocyte Absolute 0.21 K/mm3 (0.00-0.031); Immature Granulocyte Percent A 1.5 % (0-0.5); Lymphocytes Percent Auto 9.3 % (18.3-44.2); Mean Corpuscular HGB Conc 33.6 g/dl (32-36); Mean Corpuscular Hemoglobin 30.9 pg (26-34); Mean Platelet Volume 9.9 fl (7.4-10.4); Monocytes Absolute Auto 0.7 K/mm3 (0.1-0.6); Neutrophils Absolute Auto 11.7 K/mm3 (1.3-6.7); Neutrophils Percent Auto 83.9 % (45.5-73.1); Nucleated Red Blood Cells Perc 0.1 % (0.0-0.2); Platelet Count Result 292 k/mm3 (150-375); Red Blood Count 2.88 M/mm3 (4.2-5.4); Red Cell Distribution Width 17.9 % (11.5-14.5); White Blood Count 13.9 K/mm3 (4.5-10.0)
[2025-01-20 04:51] LABS: Alanine Aminotransferase 186 U/L (6-35); Albumin Level 3.2 g/dL (3.5-5.1); Alkaline Phosphatase 148 U/L (38-126); Anion Gap 11 mmol/L (4-12); Aspartate Amino Transferase 102 U/L (14-36); Bilirubin,Total 0.4 mg/dL (0.2-1.3); Blood Urea Nitrogen 30 mg/dL (7-17); Calcium 8.4 mg/dL (8.4-10.2); Carbon Dioxide 20 mmol/L (22-30); Chloride 105 mmol/L (98-107); Estimated CRCL calculation 31 ml/min; Estimated Glomerular Filt Rate 35; Glucose 111 mg/dL (65-110); Magnesium 2.3 mg/dL (1.6-2.3); Potassium 3.9 mmol/L (3.4-5.0); Sodium 136 mmol/L (137-145)
[2025-01-20 05:00] LABS: Alveolar/Arterial O2 Gradient 275.7 mmHg; Base Excess ABG -1.6 mEq/l (+/-2.0); Fractional Inspired Oxygen 52 %; HCO3 ABG 21.1 mEq/l (22.0-26.0); Oxygen Content ABG 12.5 %vol (16.0-22.0); Oxygen Saturation ABG 93.9 % (95.0-100.0); Oxyhemoglobin 91.5 % THb (90.0-100.0); PCO2 ABG 28.8 mmHg (35.0-45.0); PO2 ABG 62.8 mmHg (80.0-100.0); PO2 FiO2 Ratio Arterial Blood 1.21 %; Total Hemoglobin 9.7 g/dL (12.0-18.0); pH ABG 7.483 (7.350-7.450)
[2025-01-20 05:23] LABS: Procalcitonin 0.9 ng/mL
[2025-01-20 05:24] LABS: Device HIGH FLOW NASAL CANN; Modified Allen's Test Pass; Site Drawn RIGHT RADIAL
[2025-01-20] MEDS: LEVOTHYROXINE SODIUM 88 MCG TABLET PO (06:22)
[2025-01-20] MEDS: AZITHROMYCIN 500 MG/NS 250 ML 500 MG/250 ML BAG 250 MG IVPB (08:53)
[2025-01-20] MEDS: APIXABAN 5 MG TABLET 10 MG PO ×2 (08:54→20:51)
[2025-01-20] MEDS: OSELTAMIVIR PHOSPHATE 30 MG CAPSULE PO (08:54)
[2025-01-20] MEDS: RANOLAZINE 500 MG TAB.ER.12H PO ×2 (08:55→20:56)
[2025-01-20] MEDS: ROSUVASTATIN 20 MG TABLET 40 MG PO (08:55)
[2025-01-20] MEDS: guaiFENesin 12 HR 600 MG TABCR 1200 MG PO ×2 (08:55→20:54)
[2025-01-20] MEDS: FELODIPINE 5 MG TAB CR 10 MG PO (08:55)
[2025-01-20] MEDS: oxyBUTYnin CHLORIDE XL 5 MG TAB.ER.24 15 MG PO (08:55)
[2025-01-20] MEDS: PANTOPRAZOLE 40 MG TABLET PO (08:55)
[2025-01-20] MEDS: carvediloL 25 MG TABLET PO ×2 (08:55→20:54)
[2025-01-20] MEDS: CLOPIDOGREL BISULFATE 75 MG TABLET PO (08:55)
[2025-01-20] MEDS: ISOSORBIDE MONONITRATE 30 MG TAB.ER.24H PO (08:55)
--- NOTE | 2025-01-20 10:16 | PM.PNCARD ---
Progress Note: A&P Assessment and Plan (1) CAD (coronary artery disease): Qualifiers: Coronary Disease-Associated Artery/Lesion type: unspecified vessel or lesion type [place] vs. transplanted heart: tribe heart Associated angina: without angina Qualified Code(s): I25.10 - Atherosclerotic heart disease of tribe coronary artery without angina pectoris Code(s): I25.10 - Atherosclerotic heart disease of tribe coronary artery without angina pectoris Status: Acute Plan 69 year old female with CAD with coronary stents, COPD, CKD stage 3, AAA, DVT, paroxysmal atrial fibrillation, PE, HTN, GERD, anxiety, gout, JANNY, migraines, hypothyroidism, PVD, former smoker who presented originally for an outpatient heart catheterization with Dr. Carvalho as a preop cardiac work up for hernia repair surgery who is not found to have any obstructive coronary artery disease however did complain of shortness of breath and is now admitted for acute hypoxic respiratory failure in setting of influenza a pneumonia and then found to have DVT/PE as well Coronary artery disease status post PCI -nonobstructive on Plavix Influenza a -on Tamiflu -continue high-flow oxygen and pulmonary toilet Acute pulmonary embolism -continue Eliquis 5 mg p.o. b.i.d. -continue high-flow oxygen DVT -continue anticoagulation Subjective Date/time seen: 01/20/25 10:16 Interval history: She still has some shortness of breath. The dyspnea significantly worsens with physical activity. Her supplemental oxygen requirement is slowly decreasing however still requiring high-flow oxygen. Review of Systems Cardiovascular: Cardiovascular: Reports as per HPI Respiratory: Respiratory: Reports as per HPI Exam Const: General: comfortable HENMT: Mouth: Yes moist mucous membranes Eyes: EOM: EOMs intact bilaterally Neck: Neck: no JVD Resp: Effort & Inspection: normal respiratory effort Auscultation: crackles, rales and rhonchi Cardio: Rate: regular rate Rhythm: regular rhythm GI: GI Palp: Yes Soft to palpation Extrem: General: no pedal edema Objective Data Vital Signs Vital Signs: Vital Signs - 24 hr 01/19/25 12:00 01/19/25 12:00 01/19/25 12:00 Temperature 36.6 C Pulse Rate 76 76 76 Respiratory Rate 14 14 Blood Pressure 108/46 L Pulse Oximetry 96 93 Oxygen Delivery High Flow Nasal Cannula Oxygen Flow Rate 40 Fraction of Inspired Oxygen 40 01/19/25 12:12 01/19/25 14:00 01/19/25 14:12 Temperature Pulse Rate 78 76 Respiratory Rate 18 Blood Pressure Pulse Oximetry 96 Oxygen Delivery High Flow Nasal Cannula Oxygen Flow Rate 15 Fraction of Inspired Oxygen 01/19/25 14:13 01/19/25 14:18 01/19/25 15:31 Temperature 37.1 C Pulse Rate 78 76 Respiratory Rate 18 20 Blood Pressure 116/49 L Pulse Oximetry 96 96 Oxygen Delivery High Flow Nasal Cannula Oxygen Flow Rate 13 Fraction of Inspired Oxygen 01/19/25 16:00 01/19/25 16:00 01/19/25 18:00 Temperature Pulse Rate 76 78 79 Respiratory Rate 20 Blood Pressure Pulse Oximetry 96 Oxygen Delivery High Flow Nasal Cannula Oxygen Flow Rate 40 Fraction of Inspired Oxygen 40 01/19/25 20:00 01/19/25 20:00 01/19/25 20:12 Temperature Pulse Rate 75 83 Respiratory Rate 16 Blood Pressure Pulse Oximetry 97 Oxygen Delivery High Flow Nasal Cannula Oxygen Flow Rate 10 Fraction of Inspired Oxygen 01/19/25 20:23 01/19/25 20:23 01/19/25 20:48 Temperature 37.2 C Pulse Rate 83 73 Respiratory Rate 16 20 Blood Pressure 134/61 Pulse Oximetry 97 90 Oxygen Delivery High Flow Nasal Cannula Oxygen Flow Rate 10 Fraction of Inspired Oxygen 01/19/25 20:59 01/19/25 22:00 01/20/25 00:00 Temperature Pulse Rate 77 76 73 Respiratory Rate Blood Pressure Pulse Oximetry Oxygen Delivery Oxygen Flow Rate Fraction of Inspired Oxygen 01/20/25 00:01 01/20/25 00:12 01/20/25 02:00 Temperature 36.5 C Pulse Rate 77 71 Respiratory Rate 20 Blood Pressure 134/64 Pulse Oximetry 100 97 Oxygen Delivery High Flow Nasal Cannula Oxygen Flow Rate 9 Fraction of Inspired Oxygen 01/20/25 02:10 01/20/25 02:19 01/20/25 04:00 Temperature 36.8 C Pulse Rate 80 99 74 Respiratory Rate 16 16 20 Blood Pressure 126/58 L Pulse Oximetry 94 Oxygen Delivery Oxygen Flow Rate Fraction of Inspired Oxygen 01/20/25 04:00 01/20/25 04:00 01/20/25 06:00 Temperature Pulse Rate 70 75 Respiratory Rate Blood Pressure Pulse Oximetry 95 Oxygen Delivery High Flow Nasal Cannula Oxygen Flow Rate 8 Fraction of Inspired Oxygen 01/20/25 08:12 01/20/25 08:25 01/20/25 08:25 Temperature 36.4 C Pulse Rate 74 77 77 Respiratory Rate 20 20 20 Blood Pressure 124/59 L Pulse Oximetry 96 95 Oxygen Delivery High Flow Nasal Cannula Oxygen Flow Rate 8 Fraction of Inspired Oxygen 01/20/25 08:33 Temperature Pulse Rate 75 Respiratory Rate 20 Blood Pressure Pulse Oximetry Oxygen Delivery Oxygen Flow Rate Fraction of Inspired Oxygen Intake/Output Intake/Output: Intake & Output 01/17/25 01/18/25 01/20/25 01/20/25 23:59 23:59 00:59 23:59 Intake Total 1180 1330 2130 1200 Output Total 600 1300 900 300 Balance 452 47 5799 900 Meds/Results Medications: Active Medications Generic Name Dose Route Start Last Admin Trade Name Freq PRN Reason Stop Dose Admin Acetaminophen 650 mg 01/13/25 20:15 01/14/25 21:05 Acetaminophen 325 Mg Tablet PO 650 mg Q4H PRN Administration Mild Pain (1-3) or Fever Albuterol/Ipratropium 3 ml 01/13/25 20:00 01/20/25 08:24 Ipratropium 0.5 Mg/Albuterol Sulfate 2.5 Mg Ampul.Neb 3 Ml INHALATION 3 ml Q6HRT ENEDELIA Administration Apixaban 10 mg 01/16/25 19:00 01/20/25 08:54 Apixaban 5 Mg Tablet PO 01/23/25 09:01 10 mg Q12HR ENEDELIA Administration Apixaban 5 mg 01/23/25 21:00 Apixaban 5 Mg Tablet PO Q12HR [facility] Benzocaine 1 lozenge 01/14/25 00:38 Benzocaine/Menthol (*Bkc) 18 Ea Lozenge PO PRN PRN Sore Throat Carvedilol 25 mg 01/13/25 21:00 01/20/25 08:55 Carvedilol 25 Mg Tablet PO 25 mg Q12HR ENEDELIA Administration Clopidogrel Bisulfate 75 mg 01/14/25 09:00 01/20/25 08:55 Clopidogrel Bisulfate 75 Mg Tablet PO 75 mg QAM ENEDELIA Administration Felodipine 10 mg 01/14/25 09:00 01/20/25 08:55 Felodipine 5 Mg Tab Cr PO 10 mg QAM ENEDELIA Administration Guaifenesin 1,200 mg 01/14/25 09:00 01/20/25 08:55 Guaifenesin 12 Hr 600 Mg Tabcr PO 1,200 mg Q12HR ENEDELIA Administration Ceftriaxone Sodium 1 gm in 50 mls @ 100 mls/hr 01/14/25 08:00 01/20/25 08:53 Rocephin 1 Gm/Ns 50 Ml IVPB 100 mls/hr QAM ENEDELIA Administration Azithromycin 500 mg in 250 mls @ 250 mls/hr 01/14/25 09:00 01/20/25 08:53 Zithromax IVPB 250 mls/hr QAM ENEDELIA Administration Isosorbide Mononitrate 30 mg 01/14/25 09:00 01/20/25 08:55 Isosorbide Mononitrate 30 Mg Tab.Er.24h PO 30 mg DAILY ENEDELIA Administration Levothyroxine Sodium 88 mcg 01/14/25 06:30 01/20/25 06:22 Levothyroxine Sodium 88 Mcg Tablet PO 88 mcg DAILY@0630 ENEDELIA Administration Ondansetron HCl 4 mg 01/13/25 20:15 Ondansetron Inj 4 Mg/2 Ml Vial IV PUSH Q6H PRN Nausea And Vomiting Oseltamivir Phosphate 30 mg 01/17/25 09:00 01/20/25 08:54 Oseltamivir Phosphate 30 Mg Capsule PO 01/23/25 09:01 30 mg DAILY ENEDELIA Administration Oxybutynin Chloride 15 mg 01/14/25 09:00 01/20/25 08:55 Oxybutynin Chloride Xl 5 Mg Tab.Er.24 PO 15 mg DAILY ENEDELIA Administration Pantoprazole Sodium 40 mg 01/14/25 09:00 01/20/25 08:55 Pantoprazole 40 Mg Tablet PO 40 mg QAM ENEDELIA Administration Perflutren Lipid Microsphere 0 ml 01/19/25 11:34 Perflutren Lipid Microspheres 1.5 Ml Vial Diluted To 10 Ml Total Volume IV PUSH 01/22/25 11:34 ONCE PRN adequate visualization Protocol Ranolazine 500 mg 01/13/25 21:00 01/20/25 08:55 Ranolazine 500 Mg Tab.Er.12h PO 500 mg Q12HR ENEDELIA Administration Rosuvastatin Calcium 40 mg 01/14/25 09:00 01/20/25 08:55 Rosuvastatin 20 Mg Tablet PO 40 mg DAILY ENEDELIA Administration Radiology Results: ITS Impressions Chest CTA 01/14/25 15:03 IMPRESSION: 1. Pulmonary embolism. 2. Bilateral basal pneumonia. 3. Trace of pericardial effusion. 4. Status post left nephrectomy and splenectomy. Prominent left adrenal gland. Physician: Jana Vieira APRN Was notified with the result of the patient at 3:24 PM on January 14, 2025 Venous Doppler Study 01/15/25 15:00 IMPRESSION: Bilateral deep vein thrombosis involving the posterior tibial and peroneal veins.. Chest X-Ray 01/20/25 08:12 IMPRESSION: Left basilar atelectasis versus pneumonia which is probably increased compared to previous study. Labs Labs: Laboratory Results - last 24 hr 01/19/25 01/19/25 01/19/25 04:02 12:03 16:25 WBC RBC Hgb Hct MCV MCH MCHC RDW Plt Count MPV Immature Gran % (Auto) Neut % (Auto) Lymph % (Auto) [place] % (Auto) Eos % (Auto) Baso % (Auto) Lymph # (Auto) [place] # (Auto) Eos # (Auto) Baso # (Auto) Abs Immat Gran (auto) Absolute Neuts (auto) Absolute Nucleated RBC Nucleated RBC % PT 34.5 H D INR 3.4 Puncture Site Left radial ABG pH 7.491 H ABG pCO2 24.9 L ABG pO2 56.9 L ABG PO2/FiO2 Ratio 1.42 ABG HCO3 18.6 L ABG O2 Saturation 92.3 L ABG O2 Content 15.9 L ABG Base Excess -3.2 A-a Gradient 199.7 Oxyhemoglobin 92.1 Total Hemoglobin 12.3 O2 Delivery Device High flow therapy O2 Liters/Min 40.0 FiO2 40 Sodium Potassium Chloride Carbon Dioxide Anion Gap BUN Creatinine Estim Creat Clear Calc Estimated GFR Glucose Calcium Magnesium Total Bilirubin AST ALT Alkaline Phosphatase NT-Pro-B Natriuret Pep 3280 H Total Protein Albumin Procalcitonin 1.7 Nasal MRSA (PCR) 01/20/25 01/20/25 01/20/25 00:11 04:22 04:55 WBC 13.9 H RBC 2.88 L Hgb 8.9 L Hct 26.5 L MCV 92.0 MCH 30.9 MCHC 33.6 RDW 17.9 H Plt Count 292 MPV 9.9 Immature Gran % (Auto) 1.5 H Neut % (Auto) 83.9 H Lymph % (Auto) 9.3 L [place] % (Auto) 5.0 Eos % (Auto) 0.0 Baso % (Auto) 0.3 Lymph # (Auto) 1.30 [place] # (Auto) 0.7 H Eos # (Auto) 0.0 Baso # (Auto) 0.0 Abs Immat Gran (auto) 0.21 H Absolute Neuts (auto) 11.7 H Absolute Nucleated RBC 0.020 H Nucleated RBC % 0.1 PT INR Puncture Site Right radial ABG pH 7.483 H ABG pCO2 28.8 L ABG pO2 62.8 L ABG PO2/FiO2 Ratio 1.21 ABG HCO3 21.1 L ABG O2 Saturation 93.9 L ABG O2 Content 12.5 L ABG Base Excess -1.6 A-a Gradient 275.7 Oxyhemoglobin 91.5 Total Hemoglobin 9.7 L O2 Delivery Device High flow nasal keysha O2 Liters/Min 8.0 FiO2 52 Sodium 136 L Potassium 3.9 Chloride 105 Carbon Dioxide 20 L Anion Gap 11 BUN 30 H Creatinine 1.48 H Estim Creat Clear Calc 31 Estimated GFR 35 L Glucose 111 H Calcium 8.4 Magnesium 2.3 Total Bilirubin 0.4 AST 102 H ALT 186 H Alkaline Phosphatase 148 H NT-Pro-B Natriuret Pep Total Protein 7.0 Albumin 3.2 L Procalcitonin 0.9 Nasal MRSA (PCR) Not detected
--- NOTE | 2025-01-20 11:34 | ECHO_ITS ---
Patient Info Name: Iza Gayle Age: 69 years : 1955 Gender: Female HR: 78 bpm BP: 126 / 58 mmHg Technical Quality: Good Exam Date: 01/20/2025 9:16 AM Exam Location: Echo Lab Patient Status: Inpatient Admit Date: 01/13/2025 Staff Ordering Physician: Ira Alvarez MD [employer] Tray Attendant: Nicci Mitchell RDCS Attending Provider: Rah Carvalho MD ([email or web address]) Exam Type: CA echo limited w bubble study Study Info Indications - CVA Limited two-dimensional transthoracic echocardiogram is performed with agitated saline. Contrast/Agitated Saline Contrast/Ag. Saline: Agitated Saline Amount: 12.00 ml Existing IV Access: Yes IV Access Condition: patent with no signs of infiltration Summary 1. Negative bubble study. Left Ventricle Normal left ventricular systolic function. Atrial Septum Negative bubble study. Report Signatures
--- NOTE | 2025-01-20 12:48 | PM.CNPUL ---
Assessment and Plan Assessment and plan (1) COPD (chronic obstructive pulmonary disease): Qualifiers: COPD type: unspecified COPD Qualified Code(s): J44.9 - Chronic obstructive pulmonary disease, unspecified Code(s): J44.9 - Chronic obstructive pulmonary disease, unspecified Status: Acute (2) Hypercoagulable state: Code(s): D68.59 - Other primary thrombophilia Status: Acute (3) Pulmonary embolism: Onset Date: 2014 Code(s): I26.99 - Other pulmonary embolism without acute cor pulmonale Status: Acute (4) Pulmonary embolism: Code(s): I26.99 - Other pulmonary embolism without acute cor pulmonale Status: Acute (5) Acute respiratory failure with hypoxia: Code(s): J96.01 - Acute respiratory failure with hypoxia Status: Acute Assessment and Plan: This 69-year-old female, with a history of mild 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 She is receiving appropriate treatment with a direct anticoagulant but continues to require high supplemental oxygen via nasal cannula. Recent chest imaging, including a CT scan, showed bilateral lower lobe consolidations. In the context of acute pulmonary embolism, these are most likely indicative of atelectasis rather than pneumonia. The patient is also being treated with ceftriaxone and Zithromax for a possible lower respiratory tract infection, potentially post-influenza, although she shows no signs suggestive of such an infection. Plan: Continue the current direct anticoagulant therapy for the recurrent pulmonary embolism. It is likely that this thromboembolic event was related to stopping the anticoagulant for the cardiac catheterization. The patient will need to remain on direct anticoagulant therapy indefinitely. For hypoxemia, encourage the use of incentive spirometry every hour and plan for a repeat chest X-ray in the morning. Continue using short-acting bronchodilators as needed. Continue to follow the patient closely along with your team. (6) CAD (coronary artery disease): Qualifiers: Coronary Disease-Associated Artery/Lesion type: unspecified vessel or lesion type [place] vs. transplanted heart: [place] heart Associated angina: without angina Qualified Code(s): I25.10 - Atherosclerotic heart disease of [place] coronary artery without angina pectoris Code(s): I25.10 - Atherosclerotic heart disease of [place] coronary artery without angina pectoris Status: Acute (7) Peripheral vascular disease, unspecified: Code(s): I73.9 - Peripheral vascular disease, unspecified Status: Acute History of Present Illness History of Present Illness Consult date: 01/20/25 Chief complaint: Chest Pain, Abnormal Stress Test Narrative: This 69-year-old patient has a medical history significant for COPD, coronary artery disease with previous coronary stenting, and chronic kidney disease. She also has a history of pulmonary embolism and deep vein thrombosis (DVT), for which she has been on long-term anticoagulation therapy. The patient initially presented for a planned heart catheterization. During her recovery following the procedure, she developed shortness of breath and significant oxyhemoglobin desaturation. There were no symptoms indicative of a lower respiratory tract infection at that time. A subsequent CT pulmonary angiogram revealed bilateral pulmonary embolism. Additionally, the patient had bilateral lower lobe consolidations and was treated with ceftriaxone and Zithromax for a suspected lower respiratory tract infection. She is currently being treated with apixaban for recurrent pulmonary embolism, and bilateral below-knee DVT was detected. The patient also tested positive for influenza A. At present, the patient does not exhibit cough, fever, chills, or hemoptysis but continues to experience mild left-sided pleuritic chest pain. She remains on relatively high oxygen support via nasal cannula at 8 liters per minute. Her white blood cell count is elevated. Her previous pulmonary embolism occurred over 10 years ago, and she has been on chronic anticoagulation with warfarin since then. Regarding her COPD, she has been using Stiolto as a maintenance bronchodilator, along with short-acting bronchodilators as needed. Pulmonary function testing conducted five years ago indicated mild obstructive airway disease, and a recent low-dose CT scan for lung cancer screening showed mild emphysema. [facility] Past Medical History Medical History Hunner's ulcer Coronary artery disease Chronic obstructive pulmonary disease Chronic kidney disease, stage 3 Abdominal aortic aneurysm mild dilatation of the distal aorta measuring 3.[address] scan in November 2024 Hypercholesterolemia Deep venous thrombosis (2014) Chronic anticoagulation Paroxysmal atrial fibrillation Essential hypertension Gastro-esophageal reflux disease without esophagitis Pulmonary embolism (2014) History of tobacco abuse Anxiety Gout Osteoporosis Arthritis Cancer of left kidney status post left nephrectomy Ventral hernia Hemorrhoids Sleep apnea does not use CPAP Migraine Glaucoma Hypothyroidism Peripheral vascular disease, unspecified Surgical History Surgical History History of right breast biopsy History of open reduction and internal fixation (ORIF) procedure repair of bilateral wrist and left foot fractures History of cystoscopy History of hernia repair History of vascular surgery bifemoral bypass left femoral and popliteal stents History of ventral hernia repair History of right shoulder replacement History of cholecystectomy History of appendectomy History of left nephrectomy History of splenectomy retroperitoneal fibrosis History of tubal ligation History of cataract extraction History of coronary artery stent placement (2014) Hx of foot surgery History of hysterectomy Family History Family History Mother Family history of Alzheimer's disease, Onset Age: 82 Sibling Family history of diabetes mellitus in first degree relative Diabetes mellitus Family history of congenital heart disease Father Family history of emphysema Family history of congenital heart disease Other Hypertension Social History Social History Social History: Surrogate medical decision maker: Amrit Gallardo, son. Code status: Full code. Smoking packs per day: 0.5 Smoking cigarettes per day: 10.0 Years smoked: 30 Smoking pack-years: 15.00 Smoking status: Former smoker Tobacco type: cigarettes Second hand tobacco smoke exposure: No Smoking end date: 11/13/14 Additional smoking assessment comments: quit 2013 Alcohol intake: never Substance use: never Substance use type: does not use Do You Feel Safe in your Home?: Yes Lack of Transportation: No Lack of Food: Never True Current Housing: I Have Housing Concerned About Future Housing: No Difficulty Paying Gas/Electric Bills: No Difficulty Paying for Meds: No Currently Unemployed: No Education: High School Diploma/GED Difficulty w/ Childcare or Family Care: No Living arrangements: with family Additional living arrangements comments: Son Occupation/Education: retired Gender identity (if verbalized by the patient): Female Spiritual care concerns: No Meds Home Medications and Allergies Home Medications ?Medication ?Instructions ?Recorded ?Confirmed ?Type clopidogrel 75 mg tablet (Plavix) 75 mg PO QAM 12/02/19 01/13/25 History nitroglycerin 0.4 mg sublingual 0.4 mg sublingual Q5M PRN Chest 12/02/19 01/10/25 History tablet Pain oxybutynin chloride 15 mg 15 mg PO DAILY 12/02/19 01/10/25 History tablet,extended release 24 hr ranolazine 500 mg tablet,extended 500 mg PO BID 03/24/21 01/10/25 History release,12 hr rosuvastatin 40 mg tablet 40 mg PO DAILY 05/09/23 01/13/25 History zoledronic acid 5 mg/100 mL in 1 ea IV DIRECTED 12/11/23 01/10/25 History mannitol 5 %-water intravenous piggybck methenamine hippurate 1 gram tablet 1 g PO BID 02/06/24 01/10/25 History felodipine 10 mg tablet,extended 10 mg PO QAM #90 tabs 04/16/24 01/10/25 Rx release 24 hr Stiolto Respimat 2.5 mcg-2.5 See Rx Instructions .Route 05/01/24 01/10/25 Rx mcg/actuation solution for .COMPLEX #12 grams inhalation (tiotropium-olodaterol) folic acid 1 mg tablet 1 mg PO DAILY #90 tabs 05/22/24 01/10/25 Rx levothyroxine 88 mcg tablet 88 mcg PO QAM #90 tabs 05/22/24 01/13/25 Rx albuterol sulfate 90 mcg/actuation 1 - 2 inh inhalation Q4-6H PRN 06/07/24 01/10/25 Rx aerosol inhaler shortness of breath or wheezing #8.5 grams warfarin 3 mg tablet See Rx Instructions .Route 11/22/24 01/10/25 Rx .COMPLEX #45 tabs isosorbide mononitrate 30 mg 30 mg PO DAILY 11/25/24 01/13/25 History tablet,extended release 24 hr carvedilol 25 mg tablet 25 mg PO Q12H #180 tabs 12/19/24 01/13/25 Rx acetaminophen 325 mg capsule 650 mg PO Q6H PRN pain 01/10/25 01/10/25 History lansoprazole 15 mg capsule,delayed 15 mg PO DAILY PRN acid reflux 01/10/25 01/10/25 History release Allergies Allergy/AdvReac Type Severity Reaction Status Date / Time No Known Allergies Allergy Verified 01/13/25 09:11 Vital Signs Vital Signs - 24 hr 01/19/25 14:00 01/19/25 14:12 01/19/25 14:13 Temperature Pulse Rate 78 76 Respiratory Rate 18 Blood Pressure Pulse Oximetry 96 Oxygen Delivery High Flow Nasal Cannula Oxygen Flow Rate 13 Fraction of Inspired Oxygen 01/19/25 14:18 01/19/25 15:31 01/19/25 16:00 Temperature 37.1 C Pulse Rate 78 76 76 Respiratory Rate 18 20 20 Blood Pressure 116/49 L Pulse Oximetry 96 96 Oxygen Delivery High Flow Nasal Cannula Oxygen Flow Rate 40 Fraction of Inspired Oxygen 40 01/19/25 16:00 01/19/25 18:00 01/19/25 20:00 Temperature Pulse Rate 78 79 Respiratory Rate Blood Pressure Pulse Oximetry 97 Oxygen Delivery High Flow Nasal Cannula Oxygen Flow Rate 10 Fraction of Inspired Oxygen 01/19/25 20:00 01/19/25 20:12 01/19/25 20:23 Temperature Pulse Rate 75 83 Respiratory Rate 16 Blood Pressure Pulse Oximetry 97 Oxygen Delivery High Flow Nasal Cannula Oxygen Flow Rate 10 Fraction of Inspired Oxygen 01/19/25 20:23 01/19/25 20:48 01/19/25 20:59 Temperature 37.2 C Pulse Rate 83 73 77 Respiratory Rate 16 20 Blood Pressure 134/61 Pulse Oximetry 90 Oxygen Delivery Oxygen Flow Rate Fraction of Inspired Oxygen 01/19/25 22:00 01/20/25 00:00 01/20/25 00:01 Temperature 36.5 C Pulse Rate 76 73 77 Respiratory Rate 20 Blood Pressure 134/64 Pulse Oximetry 100 Oxygen Delivery Oxygen Flow Rate Fraction of Inspired Oxygen 01/20/25 00:12 01/20/25 02:00 01/20/25 02:10 Temperature Pulse Rate 71 80 Respiratory Rate 16 Blood Pressure Pulse Oximetry 97 Oxygen Delivery High Flow Nasal Cannula Oxygen Flow Rate 9 Fraction of Inspired Oxygen 01/20/25 02:19 01/20/25 04:00 01/20/25 04:00 Temperature 36.8 C Pulse Rate 99 74 Respiratory Rate 16 20 Blood Pressure 126/58 L Pulse Oximetry 94 95 Oxygen Delivery High Flow Nasal Cannula Oxygen Flow Rate 8 Fraction of Inspired Oxygen 01/20/25 04:00 01/20/25 06:00 01/20/25 08:00 Temperature Pulse Rate 70 75 76 Respiratory Rate Blood Pressure Pulse Oximetry Oxygen Delivery Oxygen Flow Rate Fraction of Inspired Oxygen 01/20/25 08:00 01/20/25 08:12 01/20/25 08:25 Temperature 36.4 C Pulse Rate 74 77 Respiratory Rate 20 20 Blood Pressure 124/59 L Pulse Oximetry 96 96 95 Oxygen Delivery High Flow Nasal Cannula High Flow Nasal Cannula Oxygen Flow Rate 8 8 Fraction of Inspired Oxygen 01/20/25 08:25 01/20/25 08:33 01/20/25 10:00 Temperature Pulse Rate 77 75 71 Respiratory Rate 20 20 Blood Pressure Pulse Oximetry Oxygen Delivery Oxygen Flow Rate Fraction of Inspired Oxygen 01/20/25 11:04 Temperature 36.8 C Pulse Rate 76 Respiratory Rate 16 Blood Pressure 126/53 L Pulse Oximetry 96 Oxygen Delivery Oxygen Flow Rate Fraction of Inspired Oxygen Exam Narrative: GENERAL APPEARANCE: Well developed, well nourished, alert and cooperative, and appears to be in no acute distress while on supplemental oxygen via nasal cannula SKIN: Inspection of the skin reveals no rashes, ulcerations or petechiae. HEENT: Sclerae anicteric and conjunctivae pink and moist. Extraocular movements were intact and pupils were equal, round, and reactive to light. The oral mucosa, hard and soft palate, tongue and posterior pharynx were normal. NECK: Supple. There was no thyroid enlargement, and no tenderness, or masses were felt. LUNGS: Decreased breath sounds at bases posteriorly no wheezing CARDIAC: There was a regular rate and rhythm without any murmurs, gallops, rubs. ABDOMEN: Soft and nontender with normal bowel sounds. There was no organomegaly. LYMPH NODES: No lymphadenopathy was appreciated in the neck. EXTREMITIES: No cyanosis, clubbing or edema. NEUROLOGIC: Alert and oriented x 3. Normal affect. Results Laboratory Findings 01/20/25 04:22 01/20/25 04:22 ABG, PT/INR, D-dimer: ABG ABG pH 7.483 (7.350-7.450) H 01/20/25 04:55 ABG pCO2 28.8 mmHg (35.0-45.0) L 01/20/25 04:55 ABG pO2 62.8 mmHg (80.0-100.0) L 01/20/25 04:55 ABG O2 Saturation 93.9 % (95.0-100.0) L 01/20/25 04:55 PT/INR, D-dimer PT 34.5 Seconds (11.1-14.7) H D 01/19/25 16:25 INR 3.4 01/19/25 16:25 Abnormal lab findings: Abnormal Labs 01/13/25 01/13/25 01/13/25 09:17 20:57 22:24 WBC 10.3 H RBC 3.21 L Hgb 9.9 L Hct 30.2 L RDW 19.1 H Immature Gran % (Auto) Neut % (Auto) 75.3 H Lymph % (Auto) 18.2 L [place] % (Auto) Baso % (Auto) 0.1 L [place] # (Auto) Abs Immat Gran (auto) 0.04 H Absolute Neuts (auto) 7.7 H Absolute Nucleated RBC Neutrophils % (Manual) Lymphocytes % (Manual) Monocytes % (Manual) Nucleated RBC % Abs Neuts (Manual) Abs Lymphs (Manual) PT APTT ABG pH ABG pCO2 ABG pO2 ABG HCO3 ABG O2 Saturation ABG O2 Content Oxyhemoglobin Total Hemoglobin Sodium Potassium Chloride 109 H Carbon Dioxide 17 L Anion Gap 13 H BUN 22 H Creatinine 1.36 H Estimated GFR 39 L Glucose 112 H Calcium AST ALT Alkaline Phosphatase Troponin I NT-Pro-B Natriuret Pep 746 H Total Protein Albumin Folate > 20.0 H TSH 0.311 L Influenza A (RT-PCR) Positive A 01/14/25 01/14/25 01/14/25 05:14 14:05 14:27 WBC 10.3 H RBC 3.51 L 3.19 L Hgb 10.9 L 9.8 L Hct 33.2 L 30.3 L RDW 19.1 H 19.1 H Immature Gran % (Auto) 0.6 H Neut % (Auto) 75.9 H Lymph % (Auto) [place] % (Auto) Baso % (Auto) [place] # (Auto) Abs Immat Gran (auto) 0.04 H Absolute Neuts (auto) Absolute Nucleated RBC Neutrophils % (Manual) Lymphocytes % (Manual) Monocytes % (Manual) Nucleated RBC % Abs Neuts (Manual) Abs Lymphs (Manual) PT 15.0 H APTT ABG pH 7.492 H ABG pCO2 26.5 L ABG pO2 47.8 L* ABG HCO3 19.8 L ABG O2 Saturation 87.7 L* ABG O2 Content 12.9 L Oxyhemoglobin 84.7 L* Total Hemoglobin 10.8 L Sodium Potassium 3.3 L 3.3 L Chloride Carbon Dioxide 18 L 20 L Anion Gap 14 H 13 H BUN 20 H 24 H Creatinine 1.27 H 1.39 H Estimated GFR 42 L 38 L Glucose 142 H 127 H Calcium 8.1 L 7.4 L AST ALT Alkaline Phosphatase Troponin I 0.036 H* NT-Pro-B Natriuret Pep Total Protein 6.0 L Albumin 3.3 L Folate TSH Influenza A (RT-PCR) 01/14/25 01/15/25 01/15/25 16:06 00:13 08:53 WBC 15.7 H RBC 3.34 L Hgb 10.3 L Hct 31.4 L RDW 19.2 H Immature Gran % (Auto) 3.9 H Neut % (Auto) 83.3 H Lymph % (Auto) 9.7 L [place] % (Auto) 2.5 L Baso % (Auto) [place] # (Auto) Abs Immat Gran (auto) 0.61 H Absolute Neuts (auto) 13.1 H Absolute Nucleated RBC Neutrophils % (Manual) Lymphocytes % (Manual) Monocytes % (Manual) Nucleated RBC % Abs Neuts (Manual) Abs Lymphs (Manual) PT 15.0 H APTT > 200.0 H* 181.0 H* ABG pH ABG pCO2 ABG pO2 ABG HCO3 ABG O2 Saturation ABG O2 Content Oxyhemoglobin Total Hemoglobin Sodium Potassium Chloride Carbon Dioxide 18 L Anion Gap 17 H BUN 34 H D Creatinine 1.33 H Estimated GFR 40 L Glucose 174 H Calcium 7.7 L AST ALT Alkaline Phosphatase Troponin I NT-Pro-B Natriuret Pep Total Protein Albumin Folate TSH Influenza A (RT-PCR) 01/15/25 01/15/25 01/16/25 16:35 23:19 06:33 WBC 16.4 H RBC 3.06 L Hgb 9.4 L Hct 28.2 L RDW 19.0 H Immature Gran % (Auto) Neut % (Auto) Lymph % (Auto) [place] % (Auto) Baso % (Auto) [place] # (Auto) Abs Immat Gran (auto) Absolute Neuts (auto) Absolute Nucleated RBC Neutrophils % (Manual) 88 H Lymphocytes % (Manual) 5.0 L Monocytes % (Manual) 2 L Nucleated RBC % Abs Neuts (Manual) 15.25 H Abs Lymphs (Manual) 0.82 L PT APTT 124.7 H 115.6 H ABG pH ABG pCO2 ABG pO2 ABG HCO3 ABG O2 Saturation ABG O2 Content Oxyhemoglobin Total Hemoglobin Sodium 135 L Potassium Chloride Carbon Dioxide 20 L Anion Gap 13 H BUN 43 H Creatinine 1.68 H Estimated GFR 30 L Glucose 119 H Calcium 7.8 L AST 54 H ALT 37 H Alkaline Phosphatase Troponin I NT-Pro-B Natriuret Pep Total Protein Albumin 3.1 L Folate TSH Influenza A (RT-PCR) 01/16/25 01/16/25 01/17/25 06:34 12:44 04:28 WBC 17.4 H 16.7 H RBC 3.17 L 2.96 L Hgb 9.7 L 9.1 L Hct 29.3 L 27.1 L RDW 18.8 H 18.7 H Immature Gran % (Auto) 0.6 H Neut % (Auto) 90.2 H Lymph % (Auto) 5.9 L [place] % (Auto) Baso % (Auto) [place] # (Auto) Abs Immat Gran (auto) 0.11 H Absolute Neuts (auto) 15.7 H Absolute Nucleated RBC 0.030 H Neutrophils % (Manual) 96 H Lymphocytes % (Manual) 3.0 L Monocytes % (Manual) 1 L Nucleated RBC % Abs Neuts (Manual) 16.03 H Abs Lymphs (Manual) 0.50 L PT APTT 95.6 H 53.7 H ABG pH ABG pCO2 ABG pO2 ABG HCO3 ABG O2 Saturation ABG O2 Content Oxyhemoglobin Total Hemoglobin Sodium Potassium Chloride Carbon Dioxide 20 L Anion Gap 16 H BUN 46 H Creatinine 1.94 H Estimated GFR 26 L Glucose Calcium 7.8 L AST 194 H ALT 127 H Alkaline Phosphatase Troponin I NT-Pro-B Natriuret Pep Total Protein Albumin 3.4 L Folate TSH Influenza A (RT-PCR) 01/17/25 01/18/25 01/19/25 17:00 04:39 04:02 WBC 12.5 H RBC 2.88 L Hgb 8.8 L Hct 26.8 L RDW 18.2 H Immature Gran % (Auto) 1.0 H Neut % (Auto) 86.7 H Lymph % (Auto) 7.4 L [place] % (Auto) Baso % (Auto) [place] # (Auto) Abs Immat Gran (auto) 0.13 H Absolute Neuts (auto) 10.9 H Absolute Nucleated RBC 0.090 H Neutrophils % (Manual) Lymphocytes % (Manual) Monocytes % (Manual) Nucleated RBC % 0.7 H Abs Neuts (Manual) Abs Lymphs (Manual) PT 27.8 H D APTT ABG pH ABG pCO2 ABG pO2 ABG HCO3 ABG O2 Saturation ABG O2 Content Oxyhemoglobin Total Hemoglobin Sodium Potassium 3.2 L Chloride Carbon Dioxide 18 L Anion Gap 16 H BUN 41 H Creatinine 1.94 H Estimated GFR 26 L Glucose 115 H Calcium 7.5 L AST 247 H ALT 221 H Alkaline Phosphatase 134 H Troponin I NT-Pro-B Natriuret Pep 3280 H Total Protein Albumin 3.4 L Folate TSH Influenza A (RT-PCR) 01/19/25 01/19/25 01/19/25 04:12 12:03 16:25 WBC 10.6 H RBC 2.76 L Hgb 8.6 L Hct 25.2 L RDW 17.8 H Immature Gran % (Auto) 1.1 H Neut % (Auto) 84.7 H Lymph % (Auto) 9.1 L [place] % (Auto) Baso % (Auto) 0.1 L [place] # (Auto) Abs Immat Gran (auto) 0.12 H Absolute Neuts (auto) 9.0 H Absolute Nucleated RBC 0.050 H Neutrophils % (Manual) Lymphocytes % (Manual) Monocytes % (Manual) Nucleated RBC % 0.5 H Abs Neuts (Manual) Abs Lymphs (Manual) PT 34.5 H D APTT ABG pH 7.491 H ABG pCO2 24.9 L ABG pO2 56.9 L ABG HCO3 18.6 L ABG O2 Saturation 92.3 L ABG O2 Content 15.9 L Oxyhemoglobin Total Hemoglobin Sodium 136 L Potassium Chloride Carbon Dioxide 20 L Anion Gap BUN 32 H Creatinine 1.57 H Estimated GFR 33 L Glucose 116 H Calcium 7.6 L AST 139 H ALT 199 H Alkaline Phosphatase 133 H Troponin I NT-Pro-B Natriuret Pep Total Protein Albumin 3.1 L Folate TSH Influenza A (RT-PCR) 01/20/25 01/20/25 04:22 04:55 WBC 13.9 H RBC 2.88 L Hgb 8.9 L Hct 26.5 L RDW 17.9 H Immature Gran % (Auto) 1.5 H Neut % (Auto) 83.9 H Lymph % (Auto) 9.3 L [place] % (Auto) Baso % (Auto) [place] # (Auto) 0.7 H Abs Immat Gran (auto) 0.21 H Absolute Neuts (auto) 11.7 H Absolute Nucleated RBC 0.020 H Neutrophils % (Manual) Lymphocytes % (Manual) Monocytes % (Manual) Nucleated RBC % Abs Neuts (Manual) Abs Lymphs (Manual) PT APTT ABG pH 7.483 H ABG pCO2 28.8 L ABG pO2 62.8 L ABG HCO3 21.1 L ABG O2 Saturation 93.9 L ABG O2 Content 12.5 L Oxyhemoglobin Total Hemoglobin 9.7 L Sodium 136 L Potassium Chloride Carbon Dioxide 20 L Anion Gap BUN 30 H Creatinine 1.48 H Estimated GFR 35 L Glucose 111 H Calcium AST 102 H ALT 186 H Alkaline Phosphatase 148 H Troponin I NT-Pro-B Natriuret Pep Total Protein Albumin 3.2 L Folate TSH Influenza A (RT-PCR)
[2025-01-20 17:29] LABS: INR 3.1; Prothrombin Time 32.3 Seconds (11.1-14.7)
--- NOTE | 2025-01-20 18:24 | P.PNIM_ITS ---
Progress Note: A&P Assessment and Plan (1) Pulmonary embolism: Code(s): I26.99 - Other pulmonary embolism without acute cor pulmonale Status: Acute Assessment and Plan: 3/4 rapid response for acute hypoxia CTA showing Pulmonary embolism is seen in the branches of the right and left lower and upper lobes arteries Echo pending to check for right heart strain Patient placed on heparin drip Monitor cardiac catheterization access site for hematoma Wean oxygen to SpO2 of 90% After CT patient lost her voice however she does not have stridor will treat for possible allergy and monitor closely, she has had contrast in the past without incident (2) Influenza A: Code(s): J10.1 - Influenza due to other identified influenza virus with other respiratory manifestations Status: Acute Assessment and Plan: Guaifenesin Tamiflu Tylenol (3) Pneumonia: Code(s): J18.9 - Pneumonia, unspecified organism Status: Acute Assessment and Plan: Left lower lobe pneumonia Started on Rocephin and azithromycin Breathing treatments Incentive spirometer (4) Acute respiratory failure with hypoxia: Code(s): J96.01 - Acute respiratory failure with hypoxia Status: Acute Assessment and Plan: * currently on 4 L nasal cannula, continue to wean for an O2 sat greater than 92% * continue DuoNeb breathing treatments q.6 hour * patient was given 1 dose of Lasix 40 mg IV while in cardiac sawyer cork slabs recovery * proBNP 746 (5) Chronic obstructive pulmonary disease: Code(s): J44.9 - Chronic obstructive pulmonary disease, unspecified Status: Acute Assessment and Plan: see above plan of care likely to exacerbation On antibiotics IV Solu-Medrol x1 Oral prednisone starting tomorrow (6) Coronary artery disease: Code(s): I25.10 - Atherosclerotic heart disease of elem coronary artery without angina pectoris Status: Acute Assessment and Plan: * history of coronary artery disease with stent placement * continue cardiac monitoring * patient had a nuclear stress test and a PET myocardial perfusion imaging recently which were abnormal * status post cardiac catheterization today with Dr. Carvalho. LAD showed 40-50% stenosis, RCA 30-40% stenosis. This was for cardiac clearance for an upcoming hernia repair surgery. * cardiology primary this admission * continue rosuvastatin and Plavix * continue vascular checks to right radial puncture site (7) Stage 3a chronic kidney disease: Code(s): N18.31 - Chronic kidney disease, stage 3a Status: Acute Assessment and Plan: * labs today showed a creatinine of 1.36, EGFR 39 * baseline creatinine appears to trend between 1.17-1.22, EGFR ranging 44-46 * continue to trend (8) Paroxysmal atrial fibrillation: Code(s): I48.0 - Paroxysmal atrial fibrillation Status: Acute Assessment and Plan: * continue carvedilol * Coumadin on hold for today due to cardiac catheterization * INR 1.1 today * Deferring to Cardiology 1 to restart (9) Essential hypertension: Code(s): I10 - Essential (primary) hypertension Status: Acute Assessment and Plan: * blood pressure ranging 116/86 to 145/73 * continue felodipine and Imdur (10) Hypothyroidism: Code(s): E03.9 - Hypothyroidism, unspecified Status: Acute Assessment and Plan: * continue Synthroid * last TSH was 0.543 on 12/16/2023 TSH low (11) Anemia: Code(s): D64.9 - Anemia, unspecified Status: Acute Assessment and Plan: * hemoglobin 9.9 * appears chronic * iron 46, ferritin 65.20, vitamin B12 864 on 11/29/24 * TSH was 0.543 on 12/16/2023 Folate over 20, will hold while in hospital, patient could switch to every other day (12) GERD (gastroesophageal reflux disease): Code(s): K21.9 - Gastro-esophageal reflux disease without esophagitis Status: Acute Assessment and Plan: * start Protonix Plan Chest x-ray shows left lower lobe pneumonia started on antibiotics in a.m.. Patient had increasing oxygen demands overnight from 2 L to 4, however today she is progressively had higher oxygen demands and ended up having a rapid response (see critical care note for details) for hypoxia placed on on non breather CTA showed Pulmonary embolism is seen in the branches of the right and left lower and upper lobes arteries. Venous Doppler of bilateral lower extremity showed, bilateral deep vein thrombosis involving the posterior tibial and peroneal veins.. Patient also has bilateral pneumonia, patient is being treated with warfarin INR is subtherapeutic and bridge with Lovenox, we may discussed with the pest control pilot to switch over to Eliquis and further recommendation to follow. Signal Inspector is agreeable to switch patient to DOAC, discus with pharmacist and started Eliquis 10mg BID for 7 days thereafter switch to 5mg BID, patient still requiring high flow oxygen secondary to influenza A, pneumonia and exacerbation of COPD. Patient is being treated with Tamiflu, prednisone, duo neb, azithromycin and ceftriaxone will continue to monitor. Patient continue to require high-flow oxygen and desatted with slight exertion, on 01/[address] Morales waxer operator reviewed the chart, recommended repeat ABG which did not show any hypercapnia, also extended course of Tamiflu to 10 days, and DC prednisone as it is not recommended with influenza A, and started on high flow NC 12L, today patient is feeling better and oxygenation has improved, patient will be seen by waxer operator, Patient is seen by pest control pilot, further recommendation to follow. Subjective Date/time seen: 01/20/25 18:24 Interval history: 69 year old female with CAD with coronary stents, COPD, CKD stage 3, AAA, DVT, paroxysmal atrial fibrillation, PE, HTN, GERD, anxiety, GOUT, JANNY, migraines, hypothyroidism, PVD, former smoker who presented originally for an outpatient heart catheterization with Dr. Carvalho as a preop cardiac work up for hernia repair surgery. Hospitalist team consulted for acute respiratory failure with hypoxia secondary to flu A. Chest x-ray shows left lower lobe pneumonia started on antibiotics in a.m.. Patient had increasing oxygen demands overnight from 2 L to 4, however today she is progressively had higher oxygen demands and ended up having a rapid response (see critical care note for details) for hypoxia placed on on non breather CTA showed Pulmonary embolism is seen in the branches of the right and left lower and upper lobes arteries. Venous Doppler of bilateral lower extremity showed, bilateral deep vein thrombosis involving the posterior tibial and peroneal veins.. Patient also has bilateral pneumonia, patient is being treated with warfarin INR is subtherapeutic and bridge with Lovenox, we may discussed with the pest control pilot to switch over to Eliquis and further recommendation to follow. Signal Inspector is agreeable to switch patient to DOAC, discus with pharmacist and started Eliquis 10mg BID for 7 days thereafter switch to 5mg BID, patient still requiring high flow oxygen secondary to influenza A, pneumonia and exacerbation of COPD. Patient is being treated with Tamiflu, prednisone, duo neb, azithromycin and ceftriaxone will continue to monitor. Patient continue to require high-flow oxygen and desatted with slight exertion, on 03/[address] Morales waxer operator reviewed the chart, recommended repeat ABG which did not show any hypercapnia, also extended course of Tamiflu to 10 days, and DC prednisone as it is not recommended with influenza A, and started on high flow NC 12L, today patient is feeling better and oxygenation has improved, patient will be seen by waxer operator, Patient is seen by pest control pilot, further recommendation to follow. Review of Systems Review of Systems: All systems reviewed & are unremarkable except as noted in HPI and below Exam Narrative: Patient is comfortable, NAD HEENT: eyes are clear and none icteric LUNGS: Bilateral fair air entry with rhonchi and wheezing HEART: RR S1S2 ABD: BS+, Soft and nontender Lower extremities: no edema SKIN: nonjaundiced Neuro: grossly intact. Objective Data Vital Signs Vital Signs: Vital Signs - 24 hr 01/19/25 20:00 01/19/25 20:00 01/19/25 20:12 Temperature Pulse Rate 75 83 Respiratory Rate 16 Blood Pressure Pulse Oximetry 97 Oxygen Delivery High Flow Nasal Cannula Oxygen Flow Rate 10 01/19/25 20:23 01/19/25 20:23 01/19/25 20:48 Temperature 37.2 C Pulse Rate 83 73 Respiratory Rate 16 20 Blood Pressure 134/61 Pulse Oximetry 97 90 Oxygen Delivery High Flow Nasal Cannula Oxygen Flow Rate 10 01/19/25 20:59 01/19/25 22:00 01/20/25 00:00 Temperature Pulse Rate 77 76 73 Respiratory Rate Blood Pressure Pulse Oximetry Oxygen Delivery Oxygen Flow Rate 01/20/25 00:01 01/20/25 00:12 01/20/25 02:00 Temperature 36.5 C Pulse Rate 77 71 Respiratory Rate 20 Blood Pressure 134/64 Pulse Oximetry 100 97 Oxygen Delivery High Flow Nasal Cannula Oxygen Flow Rate 9 01/20/25 02:10 01/20/25 02:19 01/20/25 04:00 Temperature 36.8 C Pulse Rate 80 99 74 Respiratory Rate 16 16 20 Blood Pressure 126/58 L Pulse Oximetry 94 Oxygen Delivery Oxygen Flow Rate 01/20/25 04:00 01/20/25 04:00 01/20/25 06:00 Temperature Pulse Rate 70 75 Respiratory Rate Blood Pressure Pulse Oximetry 95 Oxygen Delivery High Flow Nasal Cannula Oxygen Flow Rate 8 01/20/25 08:00 01/20/25 08:00 01/20/25 08:12 Temperature 36.4 C Pulse Rate 76 74 Respiratory Rate 20 Blood Pressure 124/59 L Pulse Oximetry 96 96 Oxygen Delivery High Flow Nasal Cannula Oxygen Flow Rate 8 01/20/25 08:25 01/20/25 08:25 01/20/25 08:33 Temperature Pulse Rate 77 77 75 Respiratory Rate 20 20 20 Blood Pressure Pulse Oximetry 95 Oxygen Delivery High Flow Nasal Cannula Oxygen Flow Rate 8 01/20/25 10:00 01/20/25 11:04 01/20/25 12:00 Temperature 36.8 C Pulse Rate 71 76 78 Respiratory Rate 16 Blood Pressure 126/53 L Pulse Oximetry 96 Oxygen Delivery Oxygen Flow Rate 01/20/25 12:00 01/20/25 13:24 01/20/25 13:24 Temperature Pulse Rate 89 89 Respiratory Rate 20 20 Blood Pressure Pulse Oximetry 96 93 Oxygen Delivery High Flow Nasal Cannula High Flow Nasal Cannula Oxygen Flow Rate 8 8 01/20/25 13:41 01/20/25 14:00 01/20/25 16:00 Temperature Pulse Rate 73 75 Respiratory Rate 20 Blood Pressure Pulse Oximetry 94 Oxygen Delivery High Flow Nasal Cannula Oxygen Flow Rate 6 01/20/25 16:00 01/20/25 16:11 Temperature 36.6 C Pulse Rate 79 72 Respiratory Rate 18 Blood Pressure 132/54 L Pulse Oximetry 95 Oxygen Delivery Oxygen Flow Rate Intake/Output Intake/Output: Intake & Output 01/17/25 01/18/25 01/20/25 01/20/25 23:59 23:59 00:59 23:59 Intake Total 1180 1330 2130 1560 Output Total 600 1300 900 300 Balance 641 47 7387 1260 Meds/Results Medications: Active Medications Generic Name Dose Route Start Last Admin Trade Name Freq PRN Reason Stop Dose Admin Acetaminophen 650 mg 01/13/25 20:15 01/14/25 21:05 Acetaminophen 325 Mg Tablet PO 650 mg Q4H PRN Administration Mild Pain (1-3) or Fever Albuterol/Ipratropium 3 ml 01/13/25 20:00 01/20/25 13:22 Ipratropium 0.5 Mg/Albuterol Sulfate 2.5 Mg Ampul.Neb 3 Ml INHALATION 3 ml Q6HRT ENEDELIA Administration Apixaban 10 mg 01/16/25 19:00 01/20/25 08:54 Apixaban 5 Mg Tablet PO 03/13/25 09:01 10 mg Q12HR ENEDELIA Administration Apixaban 5 mg 01/23/25 21:00 Apixaban 5 Mg Tablet PO Q12HR [facility] Benzocaine 1 lozenge 01/14/25 00:38 Benzocaine/Menthol (*Bkc) 18 Ea Lozenge PO PRN PRN Sore Throat Carvedilol 25 mg 01/13/25 21:00 01/20/25 08:55 Carvedilol 25 Mg Tablet PO 25 mg Q12HR ENEDELIA Administration Clopidogrel Bisulfate 75 mg 01/14/25 09:00 01/20/25 08:55 Clopidogrel Bisulfate 75 Mg Tablet PO 75 mg QAM [facility] Administration Felodipine 10 mg 01/14/25 09:00 01/20/25 08:55 Felodipine 5 Mg Tab Cr PO 10 mg QAM [facility] Administration Guaifenesin 1,200 mg 01/14/25 09:00 01/20/25 08:55 Guaifenesin 12 Hr 600 Mg Tabcr PO 1,200 mg Q12HR ENEDELIA Administration Isosorbide Mononitrate 30 mg 01/14/25 09:00 01/20/25 08:55 Isosorbide Mononitrate 30 Mg Tab.Er.24h PO 30 mg DAILY ENEDELIA Administration Levothyroxine Sodium 88 mcg 01/14/25 06:30 01/20/25 06:22 Levothyroxine Sodium 88 Mcg Tablet PO 88 mcg DAILY@0630 [facility] Administration Ondansetron HCl 4 mg 01/13/25 20:15 Ondansetron Inj 4 Mg/2 Ml Vial IV PUSH Q6H PRN Nausea And Vomiting Oseltamivir Phosphate 30 mg 01/17/25 09:00 01/20/25 08:54 Oseltamivir Phosphate 30 Mg Capsule PO 01/23/25 09:01 30 mg DAILY [facility] Administration Oxybutynin Chloride 15 mg 01/14/25 09:00 01/20/25 08:55 Oxybutynin Chloride Xl 5 Mg Tab.Er.24 PO 15 mg DAILY ENEDELIA Administration Pantoprazole Sodium 40 mg 01/14/25 09:00 01/20/25 08:55 Pantoprazole 40 Mg Tablet PO 40 mg QAM ENEDELIA Administration Perflutren Lipid Microsphere 0 ml 01/19/25 11:34 Perflutren Lipid Microspheres 1.5 Ml Vial Diluted To 10 Ml Total Volume IV PUSH 01/22/25 11:34 ONCE PRN adequate visualization Protocol Ranolazine 500 mg 01/13/25 21:00 01/20/25 08:55 Ranolazine 500 Mg Tab.Er.12h PO 500 mg Q12HR ENEDELIA Administration Rosuvastatin Calcium 40 mg 01/14/25 09:00 01/20/25 08:55 Rosuvastatin 20 Mg Tablet PO 40 mg DAILY ENEDELIA Administration Radiology Results: ITS Impressions Chest CTA 01/14/25 15:03 IMPRESSION: 1. Pulmonary embolism. 2. Bilateral basal pneumonia. 3. Trace of pericardial effusion. 4. Status post left nephrectomy and splenectomy. Prominent left adrenal gland. Physician: Jana Vieira APRN Was notified with the result of the patient at 3:24 PM on January 14, 2025 Venous Doppler Study 01/15/25 15:00 IMPRESSION: Bilateral deep vein thrombosis involving the posterior tibial and peroneal veins.. Chest X-Ray 01/20/25 08:12 IMPRESSION: Left basilar atelectasis versus pneumonia which is probably increased compared to previous study. Labs Labs: Laboratory Results - last 24 hr 01/20/25 01/20/25 01/20/25 00:11 04:22 04:55 WBC 13.9 H RBC 2.88 L Hgb 8.9 L Hct 26.5 L MCV 92.0 MCH 30.9 MCHC 33.6 RDW 17.9 H Plt Count 292 MPV 9.9 Immature Gran % (Auto) 1.5 H Neut % (Auto) 83.9 H Lymph % (Auto) 9.3 L [place] % (Auto) 5.0 Eos % (Auto) 0.0 Baso % (Auto) 0.3 Lymph # (Auto) 1.30 [place] # (Auto) 0.7 H Eos # (Auto) 0.0 Baso # (Auto) 0.0 Abs Immat Gran (auto) 0.21 H Absolute Neuts (auto) 11.7 H Absolute Nucleated RBC 0.020 H Nucleated RBC % 0.1 PT INR Puncture Site Right radial ABG pH 7.483 H ABG pCO2 28.8 L ABG pO2 62.8 L ABG PO2/FiO2 Ratio 1.21 ABG HCO3 21.1 L ABG O2 Saturation 93.9 L ABG O2 Content 12.5 L ABG Base Excess -1.6 A-a Gradient 275.7 Oxyhemoglobin 91.5 Total Hemoglobin 9.7 L O2 Delivery Device High flow nasal keysha O2 Liters/Min 8.0 FiO2 52 Sodium 136 L Potassium 3.9 Chloride 105 Carbon Dioxide 20 L Anion Gap 11 BUN 30 H Creatinine 1.48 H Estim Creat Clear Calc 31 Estimated GFR 35 L Glucose 111 H Calcium 8.4 Magnesium 2.3 Total Bilirubin 0.4 AST 102 H ALT 186 H Alkaline Phosphatase 148 H Total Protein 7.0 Albumin 3.2 L Procalcitonin 0.9 Nasal MRSA (PCR) Not detected 01/20/25 17:09 WBC RBC Hgb Hct MCV MCH MCHC RDW Plt Count MPV Immature Gran % (Auto) Neut % (Auto) Lymph % (Auto) [place] % (Auto) Eos % (Auto) Baso % (Auto) Lymph # (Auto) [place] # (Auto) Eos # (Auto) Baso # (Auto) Abs Immat Gran (auto) Absolute Neuts (auto) Absolute Nucleated RBC Nucleated RBC % PT 32.3 H INR 3.1 Puncture Site ABG pH ABG pCO2 ABG pO2 ABG PO2/FiO2 Ratio ABG HCO3 ABG O2 Saturation ABG O2 Content ABG Base Excess A-a Gradient Oxyhemoglobin Total Hemoglobin O2 Delivery Device O2 Liters/Min FiO2 Sodium Potassium Chloride Carbon Dioxide Anion Gap BUN Creatinine Estim Creat Clear Calc Estimated GFR Glucose Calcium Magnesium Total Bilirubin AST ALT Alkaline Phosphatase Total Protein Albumin Procalcitonin Nasal MRSA (PCR) Quality VTE Prophylaxis VTE prophylaxis: mechanical ordered
[2025-01-21] VITALS (32 sets, daily range): BP systolic 116–139; BP diastolic 48–61; PULSE 70–81; RESP 18–28; TEMP 36.3–37.2; O2SAT 88–97
[2025-01-21] MEDS: IPRATROPIUM 0.5 MG/ALBUTEROL SULFATE 2.5 MG AMPUL.NEB 3 ML INHALATION ×4 (01:59→20:37)
[2025-01-21 04:39] LABS: Basophils Percent Auto 0.2 % (0.2-1.2); Hematocrit 26.3 % (37.0-47.0); Hemoglobin 8.8 g/dL (12.0-15.0); Immature Granulocyte Absolute 0.26 K/mm3 (0.00-0.031); Immature Granulocyte Percent A 1.5 % (0-0.5); Lymphocytes Absolute Auto 1.45 K/mm3 (0.9-3.2); Lymphocytes Percent Auto 8.2 % (18.3-44.2); Mean Corpuscular HGB Conc 33.5 g/dl (32-36); Mean Corpuscular Hemoglobin 30.7 pg (26-34); Mean Corpuscular Volume 91.6 fl (80-100); Mean Platelet Volume 10.1 fl (7.4-10.4); Monocytes Absolute Auto 0.7 K/mm3 (0.1-0.6); Monocytes Percent Auto 3.7 % (2.6-8.5); Neutrophils Absolute Auto 15.2 K/mm3 (1.3-6.7); Neutrophils Percent Auto 86.4 % (45.5-73.1); Nucleated Red Blood Cells Perc 0.2 % (0.0-0.2); Platelet Count Result 321 k/mm3 (150-375); Red Blood Count 2.87 M/mm3 (4.2-5.4); White Blood Count 17.6 K/mm3 (4.5-10.0)
[2025-01-21 04:51] LABS: Alveolar/Arterial O2 Gradient 190.9 mmHg; Base Excess ABG -2.3 mEq/l (+/-2.0); Fractional Inspired Oxygen 40 %; HCO3 ABG 20.6 mEq/l (22.0-26.0); Oxygen Content ABG 11.9 %vol (16.0-22.0); Oxygen Saturation ABG 93.4 % (95.0-100.0); Oxyhemoglobin 90.5 % THb (90.0-100.0); PCO2 ABG 28.6 mmHg (35.0-45.0); PO2 ABG 61.4 mmHg (80.0-100.0); PO2 FiO2 Ratio Arterial Blood 1.54 %; Total Hemoglobin 9.3 g/dL (12.0-18.0); pH ABG 7.475 (7.350-7.450)
[2025-01-21 04:53] LABS: Device NASAL CANNULA; Modified Allen's Test Pass; Site Drawn RIGHT RADIAL
[2025-01-21 05:01] LABS: Alanine Aminotransferase 149 U/L (6-35); Alkaline Phosphatase 144 U/L (38-126); Anion Gap 9 mmol/L (4-12); Aspartate Amino Transferase 69 U/L (14-36); Bilirubin,Total 0.5 mg/dL (0.2-1.3); Blood Urea Nitrogen 23 mg/dL (7-17); Calcium 8.5 mg/dL (8.4-10.2); Carbon Dioxide 22 mmol/L (22-30); Chloride 105 mmol/L (98-107); Estimated CRCL calculation 37 ml/min; Estimated Glomerular Filt Rate 46; Glucose 92 mg/dL (65-110); Magnesium 1.9 mg/dL (1.6-2.3); Potassium 3.6 mmol/L (3.4-5.0); Sodium 136 mmol/L (137-145)
[2025-01-21] MEDS: LEVOTHYROXINE SODIUM 88 MCG TABLET PO (06:14)
[2025-01-21] MEDS: oxyBUTYnin CHLORIDE XL 5 MG TAB.ER.24 15 MG PO (08:51)
[2025-01-21] MEDS: ROSUVASTATIN 20 MG TABLET 40 MG PO (08:51)
[2025-01-21] MEDS: carvediloL 25 MG TABLET PO ×2 (08:52→20:30)
[2025-01-21] MEDS: guaiFENesin 12 HR 600 MG TABCR 1200 MG PO ×2 (08:52→20:30)
[2025-01-21] MEDS: OSELTAMIVIR PHOSPHATE 30 MG CAPSULE PO ×2 (08:52→20:31)
[2025-01-21] MEDS: FELODIPINE 5 MG TAB CR 10 MG PO (08:52)
[2025-01-21] MEDS: RANOLAZINE 500 MG TAB.ER.12H PO ×2 (08:52→20:31)
[2025-01-21] MEDS: PANTOPRAZOLE 40 MG TABLET PO (08:53)
[2025-01-21] MEDS: ISOSORBIDE MONONITRATE 30 MG TAB.ER.24H PO (08:53)
[2025-01-21] MEDS: CLOPIDOGREL BISULFATE 75 MG TABLET PO (08:53)
[2025-01-21] MEDS: APIXABAN 5 MG TABLET 10 MG PO ×2 (08:53→20:29)
--- NOTE | 2025-01-21 11:06 | P.PNPL_ITS ---
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 She is receiving appropriate treatment with a direct anticoagulant but continues to require high supplemental oxygen via nasal cannula. Recent chest imaging, including a CT scan, showed bilateral lower lobe consolidations. In the context of acute pulmonary embolism, these are most likely indicative of atelectasis rather than pneumonia. Patient recently completed treatment with ceftriaxone and Zithromax for possible post influenza lower respiratory tract infection. The patient's respiratory status remains essentially unchanged from a clinical perspective. Today's chest X-ray continues to show left lower lobe atelectasis versus infiltrate. The patient is currently off ceftriaxone and Zithromax. Given the rising white blood cell count, I recommend initiating cefepime IV empirically. The patient will continue using incentive spirometry and should get out of bed, sitting in a chair. (3) Pneumonia: Code(s): J18.9 - Pneumonia, unspecified organism Status: Acute Subjective Date/time seen: 01/21/25 11:06 Interval history: Patient has no new respiratory symptoms. Very mild cough with no sputum production. Doing hourly incentive spirometry. O2 flow transiently increased to 5 L per minute this a.m. but increase back up to 8 liters/minute. Review of Systems Review of Systems: All systems reviewed & are unremarkable except as noted in HPI and below (HPI and below) Exam Narrative: GENERAL APPEARANCE: Well developed, well nourished, alert and cooperative, and appears to be in no acute distress while on supplemental oxygen via nasal cannula SKIN: Inspection of the skin reveals no rashes, ulcerations or petechiae. HEENT: Sclerae anicteric and conjunctivae pink and moist. Extraocular movements were intact and pupils were equal, round, and reactive to light. The oral mucosa, hard and soft palate, tongue and posterior pharynx were normal. NECK: Supple. There was no thyroid enlargement, and no tenderness, or masses were felt. LUNGS: Decreased breath sounds at bases posteriorly no wheezing CARDIAC: There was a regular rate and rhythm without any murmurs, gallops, rubs. ABDOMEN: Soft and nontender with normal bowel sounds. There was no organomegaly. LYMPH NODES: No lymphadenopathy was appreciated in the neck. EXTREMITIES: No cyanosis, clubbing or edema. NEUROLOGIC: Alert and oriented x 3. Normal affect. Objective Data Vital Signs Vital Signs: Vital Signs - 24 hr 01/20/25 12:00 01/20/25 12:00 01/20/25 13:24 Temperature Pulse Rate 78 89 Respiratory Rate 20 Blood Pressure Pulse Oximetry 96 93 Oxygen Delivery High Flow Nasal Cannula High Flow Nasal Cannula Oxygen Flow Rate 8 8 01/20/25 13:24 01/20/25 13:41 01/20/25 14:00 Temperature Pulse Rate 89 73 75 Respiratory Rate 20 20 Blood Pressure Pulse Oximetry Oxygen Delivery Oxygen Flow Rate 01/20/25 16:00 01/20/25 16:00 01/20/25 16:11 Temperature 36.6 C Pulse Rate 79 72 Respiratory Rate 18 Blood Pressure 132/54 L Pulse Oximetry 94 95 Oxygen Delivery High Flow Nasal Cannula Oxygen Flow Rate 6 01/20/25 18:00 01/20/25 19:54 01/20/25 19:55 Temperature Pulse Rate 74 77 77 Respiratory Rate 18 Blood Pressure Pulse Oximetry 95 Oxygen Delivery High Flow Nasal Cannula Oxygen Flow Rate 10 01/20/25 20:03 01/20/25 20:40 01/20/25 20:41 Temperature 36.6 C Pulse Rate 75 75 Respiratory Rate 20 20 Blood Pressure 137/56 L Pulse Oximetry 91 93 Oxygen Delivery High Flow Nasal Cannula Oxygen Flow Rate 6 01/20/25 20:45 01/20/25 20:54 01/20/25 22:00 Temperature Pulse Rate 73 75 73 Respiratory Rate 20 Blood Pressure Pulse Oximetry Oxygen Delivery Oxygen Flow Rate 01/20/25 23:10 01/21/25 00:00 01/21/25 00:00 Temperature 36.6 C Pulse Rate 75 73 75 Respiratory Rate 20 20 Blood Pressure 127/53 L Pulse Oximetry 93 93 Oxygen Delivery High Flow Nasal Cannula Oxygen Flow Rate 6 01/21/25 01:59 01/21/25 02:00 01/21/25 02:07 Temperature Pulse Rate 72 70 72 Respiratory Rate 20 20 Blood Pressure Pulse Oximetry Oxygen Delivery Oxygen Flow Rate 01/21/25 02:08 01/21/25 02:08 01/21/25 03:56 Temperature Pulse Rate 74 Respiratory Rate 20 Blood Pressure Pulse Oximetry 97 96 94 Oxygen Delivery High Flow Nasal Cannula High Flow Nasal Cannula High Flow Nasal Cannula Oxygen Flow Rate 6 5 5 01/21/25 03:56 01/21/25 04:00 01/21/25 06:00 Temperature 37.2 C Pulse Rate 74 76 74 Respiratory Rate 20 Blood Pressure 129/55 L Pulse Oximetry 92 Oxygen Delivery Oxygen Flow Rate 01/21/25 07:34 01/21/25 07:34 01/21/25 07:42 Temperature Pulse Rate 75 78 Respiratory Rate 20 20 Blood Pressure Pulse Oximetry 93 Oxygen Delivery High Flow Nasal Cannula Oxygen Flow Rate 5 01/21/25 08:00 01/21/25 08:00 01/21/25 08:07 Temperature 36.6 C Pulse Rate 78 70 Respiratory Rate 20 Blood Pressure 135/55 L Pulse Oximetry 96 94 Oxygen Delivery High Flow Nasal Cannula Oxygen Flow Rate 5 01/21/25 08:52 01/21/25 10:09 01/21/25 10:55 Temperature Pulse Rate 78 Respiratory Rate Blood Pressure Pulse Oximetry 88 L Oxygen Delivery High Flow Therapy with Na High Flow Therapy with Na Oxygen Flow Rate 5 8 Intake/Output Intake/Output: Intake & Output 01/18/25 01/20/25 01/20/25 01/21/25 23:59 00:59 23:59 23:59 Intake Total 1330 2130 1920 790 Output Total 1300 900 700 500 Balance 30 1230 1220 290 Meds/Results Medications: Active Medications Generic Name Dose Route Start Last Admin Trade Name Freq PRN Reason Stop Dose Admin Acetaminophen 650 mg 01/13/25 20:15 01/14/25 21:05 Acetaminophen 325 Mg Tablet PO 650 mg Q4H PRN Administration Mild Pain (1-3) or Fever Albuterol/Ipratropium 3 ml 01/13/25 20:00 01/21/25 07:34 Ipratropium 0.5 Mg/Albuterol Sulfate 2.5 Mg Ampul.Neb 3 Ml INHALATION 3 ml Q6HRT ENEDELIA Administration Apixaban 10 mg 01/16/25 19:00 01/21/25 08:53 Apixaban 5 Mg Tablet PO 01/23/25 09:01 10 mg Q12HR [facility] Administration Apixaban 5 mg 01/23/25 21:00 Apixaban 5 Mg Tablet PO Q12HR [facility] Benzocaine 1 lozenge 01/14/25 00:38 Benzocaine/Menthol (*Bkc) 18 Ea Lozenge PO PRN PRN Sore Throat Carvedilol 25 mg 01/13/25 21:00 01/21/25 08:52 Carvedilol 25 Mg Tablet PO 25 mg Q12HR [facility] Administration Clopidogrel Bisulfate 75 mg 01/14/25 09:00 01/21/25 08:53 Clopidogrel Bisulfate 75 Mg Tablet PO 75 mg QAM [facility] Administration Felodipine 10 mg 01/14/25 09:00 01/21/25 08:52 Felodipine 5 Mg Tab Cr PO 10 mg QAM [facility] Administration Guaifenesin 1,200 mg 01/14/25 09:00 01/21/25 08:52 Guaifenesin 12 Hr 600 Mg Tabcr PO 1,200 mg Q12HR [facility] Administration Cefepime HCl 1 gm in 50 mls @ 100 mls/hr 01/21/25 11:05 Maxipime 1 Gm/Ns 50 Ml IVPB Q12H [facility] Isosorbide Mononitrate 30 mg 01/14/25 09:00 01/21/25 08:53 Isosorbide Mononitrate 30 Mg Tab.Er.24h PO 30 mg DAILY [facility] Administration Levothyroxine Sodium 88 mcg 01/14/25 06:30 01/21/25 06:14 Levothyroxine Sodium 88 Mcg Tablet PO 88 mcg DAILY@0630 [facility] Administration Ondansetron HCl 4 mg 01/13/25 20:15 Ondansetron Inj 4 Mg/2 Ml Vial IV PUSH Q6H PRN Nausea And Vomiting Oseltamivir Phosphate 30 mg 01/21/25 21:00 Oseltamivir Phosphate 30 Mg Capsule PO 01/23/25 21:01 Q12HR [facility] Oxybutynin Chloride 15 mg 01/14/25 09:00 01/21/25 08:51 Oxybutynin Chloride Xl 5 Mg Tab.Er.24 PO 15 mg DAILY [facility] Administration Pantoprazole Sodium 40 mg 01/14/25 09:00 01/21/25 08:53 Pantoprazole 40 Mg Tablet PO 40 mg QAM ENEDELIA Administration Perflutren Lipid Microsphere 0 ml 01/19/25 11:34 Perflutren Lipid Microspheres 1.5 Ml Vial Diluted To 10 Ml Total Volume IV PUSH 01/22/25 11:34 ONCE PRN adequate visualization Protocol Ranolazine 500 mg 01/13/25 21:00 01/21/25 08:52 Ranolazine 500 Mg Tab.Er.12h PO 500 mg Q12HR ENEDELIA Administration Rosuvastatin Calcium 40 mg 01/14/25 09:00 01/21/25 08:51 Rosuvastatin 20 Mg Tablet PO 40 mg DAILY ENEDELIA Administration Radiology Results: ITS Impressions Chest CTA 01/14/25 15:03 IMPRESSION: 1. Pulmonary embolism. 2. Bilateral basal pneumonia. 3. Trace of pericardial effusion. 4. Status post left nephrectomy and splenectomy. Prominent left adrenal gland. Physician: Jana Vieira APRN Was notified with the result of the patient at 3:24 PM on January 14, 2025 Venous Doppler Study 01/15/25 15:00 IMPRESSION: Bilateral deep vein thrombosis involving the posterior tibial and peroneal veins.. Chest X-Ray 01/21/25 08:39 IMPRESSION: Left basilar atelectasis versus pneumonia with possible minimal effusion. Prominent kendall with possible right infrahilar opacity. Follow-up advised. Labs Labs: Laboratory Results - last 24 hr 01/20/25 01/21/25 01/21/25 17:09 04:20 04:37 WBC 17.6 H RBC 2.87 L Hgb 8.8 L Hct 26.3 L MCV 91.6 MCH 30.7 MCHC 33.5 RDW 18.0 H Plt Count 321 MPV 10.1 Immature Gran % (Auto) 1.5 H Neut % (Auto) 86.4 H Lymph % (Auto) 8.2 L Merrick % (Auto) 3.7 Eos % (Auto) 0.0 Baso % (Auto) 0.2 Lymph # (Auto) 1.45 Merrick # (Auto) 0.7 H Eos # (Auto) 0.0 Baso # (Auto) 0.0 Abs Immat Gran (auto) 0.26 H Absolute Neuts (auto) 15.2 H Absolute Nucleated RBC 0.030 H Nucleated RBC % 0.2 PT 32.3 H INR 3.1 Puncture Site Right radial ABG pH 7.475 H ABG pCO2 28.6 L ABG pO2 61.4 L ABG PO2/FiO2 Ratio 1.54 ABG HCO3 20.6 L ABG O2 Saturation 93.4 L ABG O2 Content 11.9 L ABG Base Excess -2.3 A-a Gradient 190.9 Oxyhemoglobin 90.5 Total Hemoglobin 9.3 L O2 Delivery Device Nasal cannula O2 Liters/Min 5.0 FiO2 40 Sodium 136 L Potassium 3.6 Chloride 105 Carbon Dioxide 22 Anion Gap 9 BUN 23 H Creatinine 1.18 H Estim Creat Clear Calc 37 Estimated GFR 46 L Glucose 92 Calcium 8.5 Magnesium 1.9 Total Bilirubin 0.5 AST 69 H ALT 149 H Alkaline Phosphatase 144 H Total Protein 7.0 Albumin 3.0 L
[2025-01-21] MEDS: CEFEPIME 1 GM/NS 50 ML 1 GM/50 ML BAG IVPB ×2 (11:24→20:30)
--- NOTE | 2025-01-21 11:34 | PC.NURSE ---
After moving to the chair and working with PT/OT the patient required more oxygen. Eventually titrating up to 10L HFNC. Notified Dr Chadwick who gave orders for bipap and will round on the patient. Orders placed and IMU respiratory (Cheri) made aware.
--- NOTE | 2025-01-21 12:53 | PC.NURSE ---
Notified Dr Chadwick and Dr Alvarez of pt being on bipap for approximately 30 minutes before not being able to tolerate it. PT moved to airvo 40L 81%. ALso notified Dr Alvarez of patient need for a BM and feeling bloated. Received order for Miralax daily and senna daily prn. Order read back and verified.
[2025-01-21] MEDS: polyethylene glycoL 3350 17 GM POWD.PACK PO (13:35)
[2025-01-21] MEDS: SENNOSIDES 8.6 MG TABLET PO (16:11)
--- NOTE | 2025-01-21 17:03 | P.PNIM_ITS ---
Progress Note: A&P Assessment and Plan (1) Pulmonary embolism: Code(s): I26.99 - Other pulmonary embolism without acute cor pulmonale Status: Acute Assessment and Plan: 3/4 rapid response for acute hypoxia CTA showing Pulmonary embolism is seen in the branches of the right and left lower and upper lobes arteries Echo pending to check for right heart strain Patient placed on heparin drip Monitor cardiac catheterization access site for hematoma Wean oxygen to SpO2 of 90% After CT patient lost her voice however she does not have stridor will treat for possible allergy and monitor closely, she has had contrast in the past without incident (2) Influenza A: Code(s): J10.1 - Influenza due to other identified influenza virus with other respiratory manifestations Status: Acute Assessment and Plan: Guaifenesin Tamiflu Tylenol (3) Pneumonia: Code(s): J18.9 - Pneumonia, unspecified organism Status: Acute Assessment and Plan: Left lower lobe pneumonia Started on Rocephin and azithromycin Breathing treatments Incentive spirometer (4) Acute respiratory failure with hypoxia: Code(s): J96.01 - Acute respiratory failure with hypoxia Status: Acute Assessment and Plan: * currently on 4 L nasal cannula, continue to wean for an O2 sat greater than 92% * continue DuoNeb breathing treatments q.6 hour * patient was given 1 dose of Lasix 40 mg IV 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 * proBNP 746 (5) Chronic obstructive pulmonary disease: Code(s): J44.9 - Chronic obstructive pulmonary disease, unspecified Status: Acute Assessment and Plan: see above plan of care likely to exacerbation On antibiotics IV Solu-Medrol x1 Oral prednisone starting tomorrow (6) Coronary artery disease: Code(s): I25.10 - Atherosclerotic heart disease of [place] coronary artery without angina pectoris Status: Acute Assessment and Plan: * history of coronary artery disease with stent placement * continue cardiac monitoring * patient had a nuclear stress test and a PET myocardial perfusion imaging recently which were abnormal * status post cardiac catheterization today with Dr. Carvalho. LAD showed 40-50% stenosis, RCA 30-40% stenosis. This was for cardiac clearance for an upcoming hernia repair surgery. * cardiology primary this admission * continue rosuvastatin and Plavix * continue vascular checks to right radial puncture site (7) Stage 3a chronic kidney disease: Code(s): N18.31 - Chronic kidney disease, stage 3a Status: Acute Assessment and Plan: * labs today showed a creatinine of 1.36, EGFR 39 * baseline creatinine appears to trend between 1.17-1.22, EGFR ranging 44-46 * continue to trend (8) Paroxysmal atrial fibrillation: Code(s): I48.0 - Paroxysmal atrial fibrillation Status: Acute Assessment and Plan: * continue carvedilol * Coumadin on hold for today due to cardiac catheterization * INR 1.1 today * Deferring to Cardiology 1 to restart (9) Essential hypertension: Code(s): I10 - Essential (primary) hypertension Status: Acute Assessment and Plan: * blood pressure ranging 116/86 to 145/73 * continue felodipine and Imdur (10) Hypothyroidism: Code(s): E03.9 - Hypothyroidism, unspecified Status: Acute Assessment and Plan: * continue Synthroid * last TSH was 0.543 on 12/16/2023 TSH low (11) Anemia: Code(s): D64.9 - Anemia, unspecified Status: Acute Assessment and Plan: * hemoglobin 9.9 * appears chronic * iron 46, ferritin 65.20, vitamin B12 864 on 11/29/24 * TSH was 0.543 on 12/16/2023 Folate over 20, will hold while in hospital, patient could switch to every other day (12) GERD (gastroesophageal reflux disease): Code(s): K21.9 - Gastro-esophageal reflux disease without esophagitis Status: Acute Assessment and Plan: * start Protonix Plan Chest x-ray shows left lower lobe pneumonia started on antibiotics in a.m.. Patient had increasing oxygen demands overnight from 2 L to 4, however today she is progressively had higher oxygen demands and ended up having a rapid response (see critical care note for details) for hypoxia placed on on non breather CTA showed Pulmonary embolism is seen in the branches of the right and left lower and upper lobes arteries. Venous Doppler of bilateral lower extremity showed, bilateral deep vein thrombosis involving the posterior tibial and peroneal veins.. Patient also has bilateral pneumonia, patient is being treated with warfarin INR is subtherapeutic and bridge with Lovenox, we may discussed with the barrel washer to switch over to Eliquis and further recommendation to follow. Radiation Monitor is agreeable to switch patient to DOAC, discus with pharmacist and started Eliquis 10mg BID for 7 days thereafter switch to 5mg BID, patient still requiring high flow oxygen secondary to influenza A, pneumonia and exacerbation of COPD. Patient is being treated with Tamiflu, prednisone, duo neb, azithromycin and ceftriaxone will continue to monitor. Patient continue to require high-flow oxygen and desatted with slight exertion, on 01/[address] Morales superintendent distribution reviewed the chart, recommended repeat ABG which did not show any hypercapnia, also extended course of Tamiflu to 10 days, and DC prednisone as it is not recommended with influenza A, and started on high flow NC 12L, today patient is feeling better and oxygenation has improved, patient is seen by superintendent distribution has escaleted abx to cefepime as patient show pneumonia. Subjective Date/time seen: 01/21/25 17:03 Interval history: 69 year old female with CAD with coronary stents, COPD, CKD stage 3, AAA, DVT, paroxysmal atrial fibrillation, PE, HTN, GERD, anxiety, GOUT, JANNY, migraines, hypothyroidism, PVD, former smoker who presented originally for an outpatient heart catheterization with Dr. Carvalho as a preop cardiac work up for hernia repair surgery. Hospitalist team consulted for acute respiratory failure with hypoxia secondary to flu A. Chest x-ray shows left lower lobe pneumonia started on antibiotics in a.m.. Patient had increasing oxygen demands overnight from 2 L to 4, however today she is progressively had higher oxygen demands and ended up having a rapid response (see critical care note for details) for hypoxia placed on on non breather CTA showed Pulmonary embolism is seen in the branches of the right and left lower and upper lobes arteries. Venous Doppler of bilateral lower extremity showed, bilateral deep vein thrombosis involving the posterior tibial and peroneal veins.. Patient also has bilateral pneumonia, patient is being treated with warfarin INR is subtherapeutic and bridge with Lovenox, we may discussed with the barrel washer to switch over to Eliquis and further recommendation to follow. Radiation Monitor is agreeable to switch patient to DOAC, discus with pharmacist and started Eliquis 10mg BID for 7 days thereafter switch to 5mg BID, patient still requiring high flow oxygen secondary to influenza A, pneumonia and exacerbation of COPD. Patient is being treated with Tamiflu, prednisone, duo neb, azithromycin and ceftriaxone will continue to monitor. Patient continue to require high-flow oxygen and desatted with slight exertion, on 01/[address] Morales superintendent distribution reviewed the chart, recommended repeat ABG which did not show any hypercapnia, also extended course of Tamiflu to 10 days, and DC prednisone as it is not recommended with influenza A, and started on high flow NC 12L, today patient is feeling better and oxygenation has improved, patient is seen by superintendent distribution has escaleted abx to cefepime as patient show pneumonia. Exam Narrative: Patient is comfortable, NAD HEENT: eyes are clear and none icteric LUNGS: Bilateral fair air entry with rhonchi and wheezing HEART: RR S1S2 ABD: BS+, Soft and nontender Lower extremities: no edema SKIN: nonjaundiced Neuro: grossly intact. Objective Data Vital Signs Vital Signs: Vital Signs - 24 hr 01/20/25 18:00 01/20/25 19:54 01/20/25 19:55 Temperature Pulse Rate 74 77 77 Respiratory Rate 18 Blood Pressure Pulse Oximetry 95 Oxygen Delivery High Flow Nasal Cannula Oxygen Flow Rate 10 Fraction of Inspired Oxygen 01/20/25 20:03 01/20/25 20:40 01/20/25 20:41 Temperature 36.6 C Pulse Rate 75 75 Respiratory Rate 20 20 Blood Pressure 137/56 L Pulse Oximetry 91 93 Oxygen Delivery High Flow Nasal Cannula Oxygen Flow Rate 6 Fraction of Inspired Oxygen 01/20/25 20:45 01/20/25 20:54 01/20/25 22:00 Temperature Pulse Rate 73 75 73 Respiratory Rate 20 Blood Pressure Pulse Oximetry Oxygen Delivery Oxygen Flow Rate Fraction of Inspired Oxygen 01/20/25 23:10 01/21/25 00:00 01/21/25 00:00 Temperature 36.6 C Pulse Rate 75 73 75 Respiratory Rate 20 20 Blood Pressure 127/53 L Pulse Oximetry 93 93 Oxygen Delivery High Flow Nasal Cannula Oxygen Flow Rate 6 Fraction of Inspired Oxygen 01/21/25 01:59 01/21/25 02:00 01/21/25 02:07 Temperature Pulse Rate 72 70 72 Respiratory Rate 20 20 Blood Pressure Pulse Oximetry Oxygen Delivery Oxygen Flow Rate Fraction of Inspired Oxygen 01/21/25 02:08 01/21/25 02:08 01/21/25 03:56 Temperature Pulse Rate 74 Respiratory Rate 20 Blood Pressure Pulse Oximetry 97 96 94 Oxygen Delivery High Flow Nasal Cannula High Flow Nasal Cannula High Flow Nasal Cannula Oxygen Flow Rate 6 5 5 Fraction of Inspired Oxygen 01/21/25 03:56 01/21/25 04:00 01/21/25 06:00 Temperature 37.2 C Pulse Rate 74 76 74 Respiratory Rate 20 Blood Pressure 129/55 L Pulse Oximetry 92 Oxygen Delivery Oxygen Flow Rate Fraction of Inspired Oxygen 01/21/25 07:34 01/21/25 07:34 01/21/25 07:42 Temperature Pulse Rate 75 78 Respiratory Rate 20 20 Blood Pressure Pulse Oximetry 93 Oxygen Delivery High Flow Nasal Cannula Oxygen Flow Rate 5 Fraction of Inspired Oxygen 01/21/25 08:00 01/21/25 08:00 01/21/25 08:07 Temperature 36.6 C Pulse Rate 78 70 Respiratory Rate 20 Blood Pressure 135/55 L Pulse Oximetry 96 94 Oxygen Delivery High Flow Nasal Cannula Oxygen Flow Rate 5 Fraction of Inspired Oxygen 01/21/25 08:52 01/21/25 10:00 01/21/25 10:00 Temperature Pulse Rate 78 72 Respiratory Rate Blood Pressure Pulse Oximetry Oxygen Delivery Nasal Cannula Oxygen Flow Rate 9 Fraction of Inspired Oxygen 01/21/25 10:09 01/21/25 10:55 01/21/25 12:00 Temperature Pulse Rate 79 Respiratory Rate 28 H Blood Pressure Pulse Oximetry 88 L 93 Oxygen Delivery High Flow Therapy with Na High Flow Nasal Cannula BiPAP Oxygen Flow Rate 5 8 Fraction of Inspired Oxygen 01/21/25 12:00 01/21/25 12:00 01/21/25 12:00 Temperature Pulse Rate 80 Respiratory Rate Blood Pressure Pulse Oximetry 93 95 Oxygen Delivery BiPAP High Flow Therapy with Na Oxygen Flow Rate 40 Fraction of Inspired Oxygen 80 81 01/21/25 12:04 01/21/25 12:45 01/21/25 14:00 Temperature 36.3 C L Pulse Rate 81 70 Respiratory Rate 18 Blood Pressure 139/56 L Pulse Oximetry 91 92 Oxygen Delivery High Flow Therapy with Na Oxygen Flow Rate 40 Fraction of Inspired Oxygen 81 01/21/25 14:15 01/21/25 14:15 01/21/25 14:30 Temperature Pulse Rate 72 70 Respiratory Rate 20 20 Blood Pressure Pulse Oximetry 96 Oxygen Delivery High Flow Therapy with Na Oxygen Flow Rate 40 Fraction of Inspired Oxygen 70 01/21/25 16:00 01/21/25 16:00 01/21/25 16:04 Temperature 36.6 C Pulse Rate 74 75 Respiratory Rate 22 H Blood Pressure 116/48 L Pulse Oximetry 97 92 Oxygen Delivery High Flow Therapy with Na Oxygen Flow Rate 40 Fraction of Inspired Oxygen 81 Intake/Output Intake/Output: Intake & Output 01/18/25 01/20/25 01/20/25 01/21/25 23:59 00:59 23:59 23:59 Intake Total 1330 2130 1920 960 Output Total 1300 900 700 500 Balance 30 1230 1220 460 Meds/Results Medications: Active Medications Generic Name Dose Route Start Last Admin Trade Name Freq PRN Reason Stop Dose Admin Acetaminophen 650 mg 01/13/25 20:15 01/14/25 21:05 Acetaminophen 325 Mg Tablet PO 650 mg Q4H PRN Administration Mild Pain (1-3) or Fever Acetylcysteine 200 mg 01/21/25 14:00 Acetylcysteine 20% Inhal Soln 800 Mg/4 Ml Vial INHALATION Q6HRT ENEDELIA Albuterol/Ipratropium 3 ml 01/13/25 20:00 01/21/25 14:15 Ipratropium 0.5 Mg/Albuterol Sulfate 2.5 Mg Ampul.Neb 3 Ml INHALATION 3 ml Q6HRT ENEDELIA Administration Apixaban 10 mg 01/16/25 19:00 01/21/25 08:53 Apixaban 5 Mg Tablet PO 01/23/25 09:01 10 mg Q12HR ENEDELIA Administration Apixaban 5 mg 01/23/25 21:00 Apixaban 5 Mg Tablet PO Q12HR [facility] Benzocaine 1 lozenge 01/14/25 00:38 Benzocaine/Menthol (*Bkc) 18 Ea Lozenge PO PRN PRN Sore Throat Carvedilol 25 mg 01/13/25 21:00 01/21/25 08:52 Carvedilol 25 Mg Tablet PO 25 mg Q12HR ENEDELIA Administration Clopidogrel Bisulfate 75 mg 01/14/25 09:00 01/21/25 08:53 Clopidogrel Bisulfate 75 Mg Tablet PO 75 mg QAM ENEDELIA Administration Felodipine 10 mg 01/14/25 09:00 01/21/25 08:52 Felodipine 5 Mg Tab Cr PO 10 mg QAM ENEDELIA Administration Guaifenesin 1,200 mg 01/14/25 09:00 01/21/25 08:52 Guaifenesin 12 Hr 600 Mg Tabcr PO 1,200 mg Q12HR ENEDELIA Administration Cefepime HCl 1 gm in 50 mls @ 100 mls/hr 01/21/25 11:05 01/21/25 12:00 Maxipime 1 Gm/Ns 50 Ml IVPB Infused Q12HR ENEDELIA Infusion Isosorbide Mononitrate 30 mg 01/14/25 09:00 01/21/25 08:53 Isosorbide Mononitrate 30 Mg Tab.Er.24h PO 30 mg DAILY ENEDELIA Administration Levothyroxine Sodium 88 mcg 01/14/25 06:30 01/21/25 06:14 Levothyroxine Sodium 88 Mcg Tablet PO 88 mcg DAILY@0630 ENEDELIA Administration Ondansetron HCl 4 mg 01/13/25 20:15 Ondansetron Inj 4 Mg/2 Ml Vial IV PUSH Q6H PRN Nausea And Vomiting Oseltamivir Phosphate 30 mg 01/21/25 21:00 Oseltamivir Phosphate 30 Mg Capsule PO 01/23/25 21:01 Q12HR ENEDELIA Oxybutynin Chloride 15 mg 01/14/25 09:00 01/21/25 08:51 Oxybutynin Chloride Xl 5 Mg Tab.Er.24 PO 15 mg DAILY ENEDELIA Administration Pantoprazole Sodium 40 mg 01/14/25 09:00 01/21/25 08:53 Pantoprazole 40 Mg Tablet PO 40 mg QAM ENEDELIA Administration Perflutren Lipid Microsphere 0 ml 01/19/25 11:34 Perflutren Lipid Microspheres 1.5 Ml Vial Diluted To 10 Ml Total Volume IV PUSH 01/22/25 11:34 ONCE PRN adequate visualization Protocol Polyethylene Glycol 17 gm 01/21/25 12:55 01/21/25 13:35 Polyethylene Glycol 3350 17 Gm Powd.Pack PO 17 gm QAM ENEDELIA Administration Ranolazine 500 mg 01/13/25 21:00 01/21/25 08:52 Ranolazine 500 Mg Tab.Er.12h PO 500 mg Q12HR ENEDELIA Administration Rosuvastatin Calcium 40 mg 01/14/25 09:00 01/21/25 08:51 Rosuvastatin 20 Mg Tablet PO 40 mg DAILY ENEDELIA Administration Senna 8.6 mg 01/21/25 12:55 01/21/25 16:11 Sennosides 8.6 Mg Tablet PO 8.6 mg DAILY PRN Administration Constipation Radiology Results: ITS Impressions Chest CTA 01/14/25 15:03 IMPRESSION: 1. Pulmonary embolism. 2. Bilateral basal pneumonia. 3. Trace of pericardial effusion. 4. Status post left nephrectomy and splenectomy. Prominent left adrenal gland. Physician: Jana Vieira APRN Was notified with the result of the patient at 3:24 PM on January 14, 2025 Venous Doppler Study 01/15/25 15:00 IMPRESSION: Bilateral deep vein thrombosis involving the posterior tibial and peroneal veins.. Chest X-Ray 01/21/25 08:39 IMPRESSION: Left basilar atelectasis versus pneumonia with possible minimal effusion. Prominent kendall with possible right infrahilar opacity. Follow-up advised. Labs Labs: Laboratory Results - last 24 hr 01/20/25 01/21/25 01/21/25 17:09 04:20 04:37 WBC 17.6 H RBC 2.87 L Hgb 8.8 L Hct 26.3 L MCV 91.6 MCH 30.7 MCHC 33.5 RDW 18.0 H Plt Count 321 MPV 10.1 Immature Gran % (Auto) 1.5 H Neut % (Auto) 86.4 H Lymph % (Auto) 8.2 L [place] % (Auto) 3.7 Eos % (Auto) 0.0 Baso % (Auto) 0.2 Lymph # (Auto) 1.45 [place] # (Auto) 0.7 H Eos # (Auto) 0.0 Baso # (Auto) 0.0 Abs Immat Gran (auto) 0.26 H Absolute Neuts (auto) 15.2 H Absolute Nucleated RBC 0.030 H Nucleated RBC % 0.2 PT 32.3 H INR 3.1 Puncture Site Right radial ABG pH 7.475 H ABG pCO2 28.6 L ABG pO2 61.4 L ABG PO2/FiO2 Ratio 1.54 ABG HCO3 20.6 L ABG O2 Saturation 93.4 L ABG O2 Content 11.9 L ABG Base Excess -2.3 A-a Gradient 190.9 Oxyhemoglobin 90.5 Total Hemoglobin 9.3 L O2 Delivery Device Nasal cannula O2 Liters/Min 5.0 FiO2 40 Sodium 136 L Potassium 3.6 Chloride 105 Carbon Dioxide 22 Anion Gap 9 BUN 23 H Creatinine 1.18 H Estim Creat Clear Calc 37 Estimated GFR 46 L Glucose 92 Calcium 8.5 Magnesium 1.9 Total Bilirubin 0.5 AST 69 H ALT 149 H Alkaline Phosphatase 144 H Total Protein 7.0 Albumin 3.0 L
[2025-01-21 18:01] LABS: INR 3.4; Prothrombin Time 34.8 Seconds (11.1-14.7)
[2025-01-21] MEDS: ACETYLCYSTEINE 20% INHAL SOLN 800 MG/4 ML VIAL 200 MG INHALATION (20:37)
[2025-01-22] VITALS (26 sets, daily range): BP systolic 110–131; BP diastolic 44–62; PULSE 63–93; RESP 18–20; TEMP 36.3–37.4; O2SAT 92–97
[2025-01-22] MEDS: ACETYLCYSTEINE 20% INHAL SOLN 800 MG/4 ML VIAL 200 MG INHALATION ×4 (02:12→20:41)
[2025-01-22] MEDS: IPRATROPIUM 0.5 MG/ALBUTEROL SULFATE 2.5 MG AMPUL.NEB 3 ML INHALATION ×4 (02:12→20:41)
[2025-01-22 04:29] LABS: Basophils Percent Auto 0.1 % (0.2-1.2); Hematocrit 26.2 % (37.0-47.0); Hemoglobin 8.4 g/dL (12.0-15.0); Immature Granulocyte Absolute 0.26 K/mm3 (0.00-0.031); Immature Granulocyte Percent A 1.5 % (0-0.5); Lymphocytes Percent Auto 6.8 % (18.3-44.2); Mean Corpuscular HGB Conc 32.1 g/dl (32-36); Mean Corpuscular Volume 93.6 fl (80-100); Mean Platelet Volume 10.1 fl (7.4-10.4); Monocytes Absolute Auto 0.7 K/mm3 (0.1-0.6); Neutrophils Absolute Auto 15.5 K/mm3 (1.3-6.7); Neutrophils Percent Auto 87.6 % (45.5-73.1); Nucleated Red Blood Cells Perc 0.2 % (0.0-0.2); Platelet Count Result 330 k/mm3 (150-375); Red Cell Distribution Width 17.8 % (11.5-14.5); White Blood Count 17.7 K/mm3 (4.5-10.0)
[2025-01-22 04:37] LABS: Alanine Aminotransferase 120 U/L (6-35); Alkaline Phosphatase 156 U/L (38-126); Anion Gap 12 mmol/L (4-12); Aspartate Amino Transferase 51 U/L (14-36); Bilirubin,Total 0.6 mg/dL (0.2-1.3); Blood Urea Nitrogen 28 mg/dL (7-17); Calcium 8.7 mg/dL (8.4-10.2); Carbon Dioxide 20 mmol/L (22-30); Chloride 104 mmol/L (98-107); Estimated CRCL calculation 36 ml/min; Estimated Glomerular Filt Rate 43; Glucose 101 mg/dL (65-110); Magnesium 1.9 mg/dL (1.6-2.3); Potassium 3.7 mmol/L (3.4-5.0); Sodium 136 mmol/L (137-145)
[2025-01-22 05:30] LABS: Alveolar/Arterial O2 Gradient 247.4 mmHg; Base Excess ABG -2.4 mEq/l (+/-2.0); Device HIGH FLOW THERAPY; Fractional Inspired Oxygen 48 %; HCO3 ABG 20.6 mEq/l (22.0-26.0); Oxygen Content ABG 12.1 %vol (16.0-22.0); Oxygen Saturation ABG 93.4 % (95.0-100.0); Oxyhemoglobin 91.3 % THb (90.0-100.0); PCO2 ABG 29.2 mmHg (35.0-45.0); PO2 ABG 61.8 mmHg (80.0-100.0); PO2 FiO2 Ratio Arterial Blood 1.29 %; Site Drawn RIGHT BRACHIAL; Total Hemoglobin 9.4 g/dL (12.0-18.0); pH ABG 7.467 (7.350-7.450)
[2025-01-22] MEDS: LEVOTHYROXINE SODIUM 88 MCG TABLET PO (06:29)
[2025-01-22] MEDS: oxyBUTYnin CHLORIDE XL 5 MG TAB.ER.24 15 MG PO (09:12)
[2025-01-22] MEDS: guaiFENesin 12 HR 600 MG TABCR 1200 MG PO ×2 (09:13→20:52)
[2025-01-22] MEDS: OSELTAMIVIR PHOSPHATE 30 MG CAPSULE PO ×2 (09:13→20:53)
[2025-01-22] MEDS: FELODIPINE 5 MG TAB CR 10 MG PO (09:13)
[2025-01-22] MEDS: CEFEPIME 1 GM/NS 50 ML 1 GM/50 ML BAG IVPB (09:13)
[2025-01-22] MEDS: PANTOPRAZOLE 40 MG TABLET PO (09:14)
[2025-01-22] MEDS: APIXABAN 5 MG TABLET 10 MG PO ×2 (09:14→20:52)
[2025-01-22] MEDS: ROSUVASTATIN 20 MG TABLET 40 MG PO (09:14)
[2025-01-22] MEDS: ISOSORBIDE MONONITRATE 30 MG TAB.ER.24H PO (09:14)
[2025-01-22] MEDS: RANOLAZINE 500 MG TAB.ER.12H PO ×2 (09:14→20:53)
[2025-01-22] MEDS: CLOPIDOGREL BISULFATE 75 MG TABLET PO (09:14)
[2025-01-22] MEDS: carvediloL 25 MG TABLET PO ×2 (09:14→20:52)
[2025-01-22] MEDS: polyethylene glycoL 3350 17 GM POWD.PACK PO (09:15)
--- NOTE | 2025-01-22 09:23 | PM.PNPUL ---
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 She is receiving appropriate treatment with a direct anticoagulant but continues to require high supplemental oxygen via nasal cannula. Recent chest imaging, including a CT scan, showed bilateral lower lobe consolidations. In the context of acute pulmonary embolism, these are most likely indicative of atelectasis rather than pneumonia. Patient recently completed treatment with ceftriaxone and Zithromax for possible post influenza lower respiratory tract infection. The patient's respiratory status remains essentially unchanged from a clinical perspective. The patient is currently on cefepime IV. WBC still elevated. Today's chest x-ray essentially unchanged showing left lower lobe infiltrate versus atelectasis. Of note patient has developed a mild coughing with yellowish sputum production. Plan: Will upgrade antibiotic treatment for possible left lung nosocomial pneumonia. Sputum culture. After discussion with pharmacist ID will switch patient to meropenem. Will continue to monitor the respiratory status. (3) Pneumonia: Code(s): J18.9 - Pneumonia, unspecified organism Status: Acute Subjective Date/time seen: 01/22/25 09:23 Interval history: Patient continues to have mild cough with light yellow sputum production. No fever chills hemoptysis. She is still requiring high FiO2. Review of Systems Review of Systems: All systems reviewed & are unremarkable except as noted in HPI and below (HPI and below) Exam Narrative: GENERAL APPEARANCE: Well developed, well nourished, alert and cooperative, and appears to be in no acute distress while on supplemental oxygen via nasal cannula SKIN: Inspection of the skin reveals no rashes, ulcerations or petechiae. HEENT: Sclerae anicteric and conjunctivae pink and moist. Extraocular movements were intact and pupils were equal, round, and reactive to light. The oral mucosa, hard and soft palate, tongue and posterior pharynx were normal. NECK: Supple. There was no thyroid enlargement, and no tenderness, or masses were felt. LUNGS: Decreased breath sounds at bases posteriorly no wheezing CARDIAC: There was a regular rate and rhythm without any murmurs, gallops, rubs. ABDOMEN: Soft and nontender with normal bowel sounds. There was no organomegaly. LYMPH NODES: No lymphadenopathy was appreciated in the neck. EXTREMITIES: No cyanosis, clubbing or edema. NEUROLOGIC: Alert and oriented x 3. Normal affect. Objective Data Vital Signs Vital Signs: Vital Signs - 24 hr 01/21/25 10:00 01/21/25 10:00 01/21/25 10:09 Temperature Pulse Rate 72 Respiratory Rate Blood Pressure Pulse Oximetry Oxygen Delivery Nasal Cannula High Flow Therapy with Na Oxygen Flow Rate 9 5 Fraction of Inspired Oxygen 01/21/25 10:55 01/21/25 12:00 01/21/25 12:00 Temperature Pulse Rate 79 Respiratory Rate 28 H Blood Pressure Pulse Oximetry 88 L 93 93 Oxygen Delivery High Flow Nasal Cannula BiPAP BiPAP Oxygen Flow Rate 8 Fraction of Inspired Oxygen 80 01/21/25 12:00 01/21/25 12:00 01/21/25 12:04 Temperature 36.3 C L Pulse Rate 80 81 Respiratory Rate 18 Blood Pressure 139/56 L Pulse Oximetry 95 91 Oxygen Delivery High Flow Therapy with Na Oxygen Flow Rate 40 Fraction of Inspired Oxygen 81 01/21/25 12:45 01/21/25 14:00 01/21/25 14:15 Temperature Pulse Rate 70 Respiratory Rate Blood Pressure Pulse Oximetry 92 96 Oxygen Delivery High Flow Therapy with Na High Flow Therapy with Na Oxygen Flow Rate 40 40 Fraction of Inspired Oxygen 81 70 01/21/25 14:15 01/21/25 14:30 01/21/25 16:00 Temperature Pulse Rate 72 70 Respiratory Rate 20 20 Blood Pressure Pulse Oximetry 97 Oxygen Delivery High Flow Therapy with Na Oxygen Flow Rate 40 Fraction of Inspired Oxygen 81 01/21/25 16:00 01/21/25 16:04 01/21/25 18:00 Temperature 36.6 C Pulse Rate 74 75 74 Respiratory Rate 22 H Blood Pressure 116/48 L Pulse Oximetry 92 Oxygen Delivery Oxygen Flow Rate Fraction of Inspired Oxygen 01/21/25 19:55 01/21/25 19:57 01/21/25 20:02 Temperature 36.4 C Pulse Rate 73 73 73 Respiratory Rate 22 H 20 Blood Pressure 137/61 Pulse Oximetry 96 94 Oxygen Delivery High Flow Therapy with Na Oxygen Flow Rate 80 Fraction of Inspired Oxygen 40 01/21/25 20:20 01/21/25 20:30 01/21/25 20:37 Temperature Pulse Rate 70 74 Respiratory Rate 20 Blood Pressure Pulse Oximetry 97 Oxygen Delivery High Flow Therapy with Na Oxygen Flow Rate 40 Fraction of Inspired Oxygen 70 01/21/25 20:57 01/21/25 21:56 01/22/25 00:00 Temperature 36.5 C Pulse Rate 74 72 69 Respiratory Rate 20 20 Blood Pressure 131/62 Pulse Oximetry 96 Oxygen Delivery Oxygen Flow Rate Fraction of Inspired Oxygen 01/22/25 00:00 01/22/25 00:00 01/22/25 02:00 Temperature Pulse Rate 65 69 67 Respiratory Rate 20 Blood Pressure Pulse Oximetry 97 Oxygen Delivery High Flow Therapy with Na Oxygen Flow Rate 31 Fraction of Inspired Oxygen 40 01/22/25 02:12 01/22/25 02:12 01/22/25 02:30 Temperature Pulse Rate 70 71 Respiratory Rate 20 20 Blood Pressure Pulse Oximetry 96 Oxygen Delivery High Flow Therapy with Na Oxygen Flow Rate 35 Fraction of Inspired Oxygen 60 01/22/25 04:00 01/22/25 04:00 01/22/25 04:27 Temperature 36.4 C Pulse Rate 72 69 69 Respiratory Rate 20 20 Blood Pressure 127/53 L Pulse Oximetry 95 95 Oxygen Delivery High Flow Therapy with Na Oxygen Flow Rate 30 Fraction of Inspired Oxygen 50 01/22/25 05:05 01/22/25 05:45 01/22/25 07:54 Temperature 36.5 C Pulse Rate 70 72 Respiratory Rate 20 Blood Pressure 130/62 Pulse Oximetry 94 96 Oxygen Delivery High Flow Therapy with Na Oxygen Flow Rate 30 Fraction of Inspired Oxygen 50 01/22/25 08:16 01/22/25 08:16 01/22/25 08:37 Temperature Pulse Rate 80 82 Respiratory Rate 20 20 Blood Pressure Pulse Oximetry 92 Oxygen Delivery High Flow Therapy with Na Oxygen Flow Rate 30 Fraction of Inspired Oxygen 49 Intake/Output Intake/Output: Intake & Output 01/20/25 01/20/25 01/21/25 01/22/25 00:59 23:59 23:59 23:59 Intake Total 2130 1920 1650 550 Output Total 668 476 0211 500 Balance 1230 1220 625 50 Meds/Results Medications: Active Medications Generic Name Dose Route Start Last Admin Trade Name Freq PRN Reason Stop Dose Admin Acetaminophen 650 mg 01/13/25 20:15 01/14/25 21:05 Acetaminophen 325 Mg Tablet PO 650 mg Q4H PRN Administration Mild Pain (1-3) or Fever Acetylcysteine 200 mg 01/21/25 14:00 01/22/25 08:12 Acetylcysteine 20% Inhal Soln 800 Mg/4 Ml Vial INHALATION 200 mg Q6HRT ENEDELIA Administration Albuterol/Ipratropium 3 ml 01/13/25 20:00 01/22/25 08:12 Ipratropium 0.5 Mg/Albuterol Sulfate 2.5 Mg Ampul.Neb 3 Ml INHALATION 3 ml Q6HRT ENEDELIA Administration Apixaban 10 mg 01/16/25 19:00 01/22/25 09:14 Apixaban 5 Mg Tablet PO 01/23/25 09:01 10 mg Q12HR ENEDELIA Administration Apixaban 5 mg 01/23/25 21:00 Apixaban 5 Mg Tablet PO Q12HR ENEDELIA Benzocaine 1 lozenge 01/14/25 00:38 Benzocaine/Menthol (*Bkc) 18 Ea Lozenge PO PRN PRN Sore Throat Carvedilol 25 mg 01/13/25 21:00 01/22/25 09:14 Carvedilol 25 Mg Tablet PO 25 mg Q12HR ENEDELIA Administration Clopidogrel Bisulfate 75 mg 01/14/25 09:00 01/22/25 09:14 Clopidogrel Bisulfate 75 Mg Tablet PO 75 mg QAM ENEDELIA Administration Felodipine 10 mg 01/14/25 09:00 01/22/25 09:13 Felodipine 5 Mg Tab Cr PO 10 mg QAM ENEDELIA Administration Guaifenesin 1,200 mg 01/14/25 09:00 01/22/25 09:13 Guaifenesin 12 Hr 600 Mg Tabcr PO 1,200 mg Q12HR ENEDELIA Administration Cefepime HCl 1 gm in 50 mls @ 100 mls/hr 01/21/25 11:05 01/22/25 09:13 Maxipime 1 Gm/Ns 50 Ml IVPB 100 mls/hr Q12HR ENEDELIA Administration Cefepime HCl 1 gm in 50 mls @ 100 mls/hr 01/22/25 09:00 Maxipime 1 Gm/Ns 50 Ml IVPB Q8H ENEDELIA Isosorbide Mononitrate 30 mg 01/14/25 09:00 01/22/25 09:14 Isosorbide Mononitrate 30 Mg Tab.Er.24h PO 30 mg DAILY ENEDELIA Administration Levothyroxine Sodium 88 mcg 01/14/25 06:30 01/22/25 06:29 Levothyroxine Sodium 88 Mcg Tablet PO 88 mcg DAILY@0630 ENEDELIA Administration Ondansetron HCl 4 mg 01/13/25 20:15 Ondansetron Inj 4 Mg/2 Ml Vial IV PUSH Q6H PRN Nausea And Vomiting Oseltamivir Phosphate 30 mg 01/21/25 21:00 01/22/25 09:13 Oseltamivir Phosphate 30 Mg Capsule PO 01/23/25 21:01 30 mg Q12HR ENEDELIA Administration Oxybutynin Chloride 15 mg 01/14/25 09:00 01/22/25 09:12 Oxybutynin Chloride Xl 5 Mg Tab.Er.24 PO 15 mg DAILY ENEDELIA Administration Pantoprazole Sodium 40 mg 01/14/25 09:00 01/22/25 09:14 Pantoprazole 40 Mg Tablet PO 40 mg QAM ENEDELIA Administration Perflutren Lipid Microsphere 0 ml 01/19/25 11:34 Perflutren Lipid Microspheres 1.5 Ml Vial Diluted To 10 Ml Total Volume IV PUSH 01/22/25 11:34 ONCE PRN adequate visualization Protocol Polyethylene Glycol 17 gm 01/21/25 12:55 01/22/25 09:15 Polyethylene Glycol 3350 17 Gm Powd.Pack PO 17 gm QAM ENEDELIA Administration Ranolazine 500 mg 01/13/25 21:00 01/22/25 09:14 Ranolazine 500 Mg Tab.Er.12h PO 500 mg Q12HR ENEDELIA Administration Rosuvastatin Calcium 40 mg 01/14/25 09:00 01/22/25 09:14 Rosuvastatin 20 Mg Tablet PO 40 mg DAILY ENEDELIA Administration Senna 8.6 mg 01/21/25 12:55 01/21/25 16:11 Sennosides 8.6 Mg Tablet PO 8.6 mg DAILY PRN Administration Constipation Radiology Results: ITS Impressions Chest CTA 01/14/25 15:03 IMPRESSION: 1. Pulmonary embolism. 2. Bilateral basal pneumonia. 3. Trace of pericardial effusion. 4. Status post left nephrectomy and splenectomy. Prominent left adrenal gland. Physician: Jana Vieira APRN Was notified with the result of the patient at 3:24 PM on January 14, 2025 Venous Doppler Study 01/15/25 15:00 IMPRESSION: Bilateral deep vein thrombosis involving the posterior tibial and peroneal veins.. Labs Labs: Laboratory Results - last 24 hr 01/21/25 01/22/25 01/22/25 17:40 04:15 05:04 WBC 17.7 H RBC 2.80 L Hgb 8.4 L Hct 26.2 L MCV 93.6 MCH 30.0 MCHC 32.1 RDW 17.8 H Plt Count 330 MPV 10.1 Immature Gran % (Auto) 1.5 H Neut % (Auto) 87.6 H Lymph % (Auto) 6.8 L [place] % (Auto) 4.0 Eos % (Auto) 0.0 Baso % (Auto) 0.1 L Lymph # (Auto) 1.20 [place] # (Auto) 0.7 H Eos # (Auto) 0.0 Baso # (Auto) 0.0 Abs Immat Gran (auto) 0.26 H Absolute Neuts (auto) 15.5 H Absolute Nucleated RBC 0.040 H Nucleated RBC % 0.2 PT 34.8 H INR 3.4 Puncture Site Right brachial ABG pH 7.467 H ABG pCO2 29.2 L ABG pO2 61.8 L ABG PO2/FiO2 Ratio 1.29 ABG HCO3 20.6 L ABG O2 Saturation 93.4 L ABG O2 Content 12.1 L ABG Base Excess -2.4 A-a Gradient 247.4 Oxyhemoglobin 91.3 Total Hemoglobin 9.4 L O2 Delivery Device High flow therapy O2 Liters/Min 30.0 FiO2 48 Sodium 136 L Potassium 3.7 Chloride 104 Carbon Dioxide 20 L Anion Gap 12 BUN 28 H Creatinine 1.23 H Estim Creat Clear Calc 36 Estimated GFR 43 L Glucose 101 Calcium 8.7 Magnesium 1.9 Total Bilirubin 0.6 AST 51 H ALT 120 H Alkaline Phosphatase 156 H Total Protein 7.0 Albumin 3.0 L
[2025-01-22] MEDS: MEROPENEM 1 GM/NS 100 ML 1 GM/100 ML BAG IVPB ×2 (11:41→20:53)
[2025-01-22 18:15] LABS: INR 3.6; Prothrombin Time 36.9 Seconds (11.1-14.7)
--- NOTE | 2025-01-22 18:46 | P.PNIM_ITS ---
Progress Note: A&P Assessment and Plan (1) Pulmonary embolism: Code(s): I26.99 - Other pulmonary embolism without acute cor pulmonale Status: Acute Assessment and Plan: 3/4 rapid response for acute hypoxia CTA showing Pulmonary embolism is seen in the branches of the right and left lower and upper lobes arteries Echo pending to check for right heart strain Patient placed on heparin drip Monitor cardiac catheterization access site for hematoma Wean oxygen to SpO2 of 90% After CT patient lost her voice however she does not have stridor will treat for possible allergy and monitor closely, she has had contrast in the past without incident (2) Influenza A: Code(s): J10.1 - Influenza due to other identified influenza virus with other respiratory manifestations Status: Acute Assessment and Plan: Guaifenesin Tamiflu Tylenol (3) Pneumonia: Code(s): J18.9 - Pneumonia, unspecified organism Status: Acute Assessment and Plan: Left lower lobe pneumonia Started on Rocephin and azithromycin Breathing treatments Incentive spirometer (4) Acute respiratory failure with hypoxia: Code(s): J96.01 - Acute respiratory failure with hypoxia Status: Acute Assessment and Plan: * currently on 4 L nasal cannula, continue to wean for an O2 sat greater than 92% * continue DuoNeb breathing treatments q.6 hour * patient was given 1 dose of Lasix 40 mg IV while in cardiac pathology laboratory aide recovery * proBNP 746 (5) Chronic obstructive pulmonary disease: Code(s): J44.9 - Chronic obstructive pulmonary disease, unspecified Status: Acute Assessment and Plan: see above plan of care likely to exacerbation On antibiotics IV Solu-Medrol x1 Oral prednisone starting tomorrow (6) Coronary artery disease: Code(s): I25.10 - Atherosclerotic heart disease of [place] coronary artery without angina pectoris Status: Acute Assessment and Plan: * history of coronary artery disease with stent placement * continue cardiac monitoring * patient had a nuclear stress test and a PET myocardial perfusion imaging recently which were abnormal * status post cardiac catheterization today with Dr. Carvalho. LAD showed 40-50% stenosis, RCA 30-40% stenosis. This was for cardiac clearance for an upcoming hernia repair surgery. * cardiology primary this admission * continue rosuvastatin and Plavix * continue vascular checks to right radial puncture site (7) Stage 3a chronic kidney disease: Code(s): N18.31 - Chronic kidney disease, stage 3a Status: Acute Assessment and Plan: * labs today showed a creatinine of 1.36, EGFR 39 * baseline creatinine appears to trend between 1.17-1.22, EGFR ranging 44-46 * continue to trend (8) Paroxysmal atrial fibrillation: Code(s): I48.0 - Paroxysmal atrial fibrillation Status: Acute Assessment and Plan: * continue carvedilol * Coumadin on hold for today due to cardiac catheterization * INR 1.1 today * Deferring to Cardiology 1 to restart (9) Essential hypertension: Code(s): I10 - Essential (primary) hypertension Status: Acute Assessment and Plan: * blood pressure ranging 116/86 to 145/73 * continue felodipine and Imdur (10) Hypothyroidism: Code(s): E03.9 - Hypothyroidism, unspecified Status: Acute Assessment and Plan: * continue Synthroid * last TSH was 0.543 on 12/16/2023 TSH low (11) Anemia: Code(s): D64.9 - Anemia, unspecified Status: Acute Assessment and Plan: * hemoglobin 9.9 * appears chronic * iron 46, ferritin 65.20, vitamin B12 864 on 11/29/24 * TSH was 0.543 on 12/16/2023 Folate over 20, will hold while in hospital, patient could switch to every other day (12) GERD (gastroesophageal reflux disease): Code(s): K21.9 - Gastro-esophageal reflux disease without esophagitis Status: Acute Assessment and Plan: * start Protonix Plan Chest x-ray shows left lower lobe pneumonia started on antibiotics in a.m.. Patient had increasing oxygen demands overnight from 2 L to 4, however today she is progressively had higher oxygen demands and ended up having a rapid response (see critical care note for details) for hypoxia placed on on non breather CTA showed Pulmonary embolism is seen in the branches of the right and left lower and upper lobes arteries. Venous Doppler of bilateral lower extremity showed, bilateral deep vein thrombosis involving the posterior tibial and peroneal veins.. Patient also has bilateral pneumonia, patient is being treated with warfarin INR is subtherapeutic and bridge with Lovenox, we may discussed with the service operations manager to switch over to Eliquis and further recommendation to follow. Expert Medical Writer is agreeable to switch patient to DOAC, discus with pharmacist and started Eliquis 10mg BID for 7 days thereafter switch to 5mg BID, patient still requiring high flow oxygen secondary to influenza A, pneumonia and exacerbation of COPD. Patient is being treated with Tamiflu, prednisone, duo neb, azithromycin and ceftriaxone will continue to monitor. Patient continue to require high-flow oxygen and desatted with slight exertion, on 01/[address] Morales massage therapy instructor reviewed the chart, recommended repeat ABG which did not show any hypercapnia, also extended course of Tamiflu to 10 days, have received 9days today, and DC prednisone as it is not recommended with influenza A, and started on high flow NC 12L, today patient is feeling better and oxygenation has improved, patient is sitting on the side of the bed, patient is seen by massage therapy instructor has escaleted abx to cefepime as patient showed pneumonia. Subjective Date/time seen: 01/22/25 18:46 Interval history: 69 year old female with CAD with coronary stents, COPD, CKD stage 3, AAA, DVT, paroxysmal atrial fibrillation, PE, HTN, GERD, anxiety, GOUT, JANNY, migraines, hypothyroidism, PVD, former smoker who presented originally for an outpatient heart catheterization with Dr. Carvalho as a preop cardiac work up for hernia repair surgery. Hospitalist team consulted for acute respiratory failure with hypoxia secondary to flu A. Chest x-ray shows left lower lobe pneumonia started on antibiotics in a.m.. Patient had increasing oxygen demands overnight from 2 L to 4, however today she is progressively had higher oxygen demands and ended up having a rapid response (see critical care note for details) for hypoxia placed on on non breather CTA showed Pulmonary embolism is seen in the branches of the right and left lower and upper lobes arteries. Venous Doppler of bilateral lower extremity showed, b ilateral deep vein thrombosis involving the posterior tibial and peroneal veins.. Patient also has bilateral pneumonia, patient is being treated with warfarin INR is subtherapeutic and bridge with Lovenox, we may discussed with the service operations manager to switch over to Eliquis and further recommendation to follow. Expert Medical Writer is agreeable to switch patient to DOAC, discus with pharmacist and started Eliquis 10mg BID for 7 days thereafter switch to 5mg BID, patient still requiring high flow oxygen secondary to influenza A, pneumonia and exacerbation of COPD. Patient is being treated with Tamiflu, prednisone, duo neb, azithromycin and ceftriaxone will continue to monitor. Patient continue to require high-flow oxygen and desatted with slight exertion, on 01/[address] Morales massage therapy instructor reviewed the chart, recommended repeat ABG which did not show any hypercapnia, also extended course of Tamiflu to 10 days, have received 9days today, and DC prednisone as it is not recommended with influenza A, and started on high flow NC 12L, today patient is feeling better and oxygenation has improved, patient is sitting on the side of the bed, patient is seen by massage therapy instructor has escaleted abx to cefepime as patient showed pneumonia. Review of Systems Review of Systems: All systems reviewed & are unremarkable except as noted in HPI and below Exam Narrative: Patient is comfortable, NAD HEENT: eyes are clear and none icteric LUNGS: Bilateral fair air entry with rhonchi and wheezing HEART: RR S1S2 ABD: BS+, Soft and nontender Lower extremities: no edema SKIN: nonjaundiced Neuro: grossly intact. Objective Data Vital Signs Vital Signs: Vital Signs - 24 hr 01/21/25 19:55 01/21/25 19:57 01/21/25 20:02 Temperature 36.4 C Pulse Rate 73 73 73 Respiratory Rate 22 H 20 Blood Pressure 137/61 Pulse Oximetry 96 94 Oxygen Delivery High Flow Therapy with Na Oxygen Flow Rate 80 Fraction of Inspired Oxygen 40 01/21/25 20:20 01/21/25 20:30 01/21/25 20:37 Temperature Pulse Rate 70 74 Respiratory Rate 20 Blood Pressure Pulse Oximetry 97 Oxygen Delivery High Flow Therapy with Na Oxygen Flow Rate 40 Fraction of Inspired Oxygen 70 01/21/25 20:57 01/21/25 21:56 01/22/25 00:00 Temperature 36.5 C Pulse Rate 74 72 69 Respiratory Rate 20 20 Blood Pressure 131/62 Pulse Oximetry 96 Oxygen Delivery Oxygen Flow Rate Fraction of Inspired Oxygen 01/22/25 00:00 01/22/25 00:00 01/22/25 02:00 Temperature Pulse Rate 65 69 67 Respiratory Rate 20 Blood Pressure Pulse Oximetry 97 Oxygen Delivery High Flow Therapy with Na Oxygen Flow Rate 31 Fraction of Inspired Oxygen 40 01/22/25 02:12 01/22/25 02:12 01/22/25 02:30 Temperature Pulse Rate 70 71 Respiratory Rate 20 20 Blood Pressure Pulse Oximetry 96 Oxygen Delivery High Flow Therapy with Na Oxygen Flow Rate 35 Fraction of Inspired Oxygen 60 01/22/25 04:00 01/22/25 04:00 01/22/25 04:27 Temperature 36.4 C Pulse Rate 72 69 69 Respiratory Rate 20 20 Blood Pressure 127/53 L Pulse Oximetry 95 95 Oxygen Delivery High Flow Therapy with Na Oxygen Flow Rate 30 Fraction of Inspired Oxygen 50 01/22/25 05:05 01/22/25 05:45 01/22/25 07:54 Temperature 36.5 C Pulse Rate 70 72 Respiratory Rate 20 Blood Pressure 130/62 Pulse Oximetry 94 96 Oxygen Delivery High Flow Therapy with Na Oxygen Flow Rate 30 Fraction of Inspired Oxygen 50 01/22/25 08:00 01/22/25 08:00 01/22/25 08:16 Temperature Pulse Rate 78 Respiratory Rate Blood Pressure Pulse Oximetry 92 92 Oxygen Delivery High Flow Therapy with Na High Flow Therapy with Na Oxygen Flow Rate 30 30 Fraction of Inspired Oxygen 50 49 01/22/25 08:16 01/22/25 08:37 01/22/25 10:00 Temperature Pulse Rate 80 82 83 Respiratory Rate 20 20 Blood Pressure Pulse Oximetry Oxygen Delivery Oxygen Flow Rate Fraction of Inspired Oxygen 01/22/25 11:36 01/22/25 12:00 01/22/25 12:00 Temperature 37.1 C Pulse Rate 77 76 Respiratory Rate 18 Blood Pressure 119/61 Pulse Oximetry 93 93 Oxygen Delivery High Flow Therapy with Na Oxygen Flow Rate 30 Fraction of Inspired Oxygen 50 01/22/25 13:58 01/22/25 14:00 01/22/25 15:37 Temperature 36.3 C L Pulse Rate 78 77 81 Respiratory Rate 18 20 Blood Pressure 110/44 L Pulse Oximetry 93 Oxygen Delivery Oxygen Flow Rate Fraction of Inspired Oxygen 01/22/25 16:00 01/22/25 16:00 01/22/25 18:00 Temperature Pulse Rate 79 93 Respiratory Rate Blood Pressure Pulse Oximetry 93 Oxygen Delivery High Flow Therapy with Na Oxygen Flow Rate 30 Fraction of Inspired Oxygen 50 Intake/Output Intake/Output: Intake & Output 01/20/25 01/20/25 01/21/25 01/22/25 00:59 23:59 23:59 23:59 Intake Total 2130 1920 1650 1230 Output Total 777 192 9552 950 Balance 1230 1220 625 280 Meds/Results Medications: Active Medications Generic Name Dose Route Start Last Admin Trade Name Freq PRN Reason Stop Dose Admin Acetaminophen 650 mg 01/13/25 20:15 03/04/25 21:05 Acetaminophen 325 Mg Tablet PO 650 mg Q4H PRN Administration Mild Pain (1-3) or Fever Acetylcysteine 200 mg 01/21/25 14:00 01/22/25 13:56 Acetylcysteine 20% Inhal Soln 800 Mg/4 Ml Vial INHALATION 200 mg Q6HRT ENEDELIA Administration Albuterol/Ipratropium 3 ml 01/13/25 20:00 01/22/25 13:56 Ipratropium 0.5 Mg/Albuterol Sulfate 2.5 Mg Ampul.Neb 3 Ml INHALATION 3 ml Q6HRT ENEDELIA Administration Apixaban 10 mg 01/16/25 19:00 01/22/25 09:14 Apixaban 5 Mg Tablet PO 01/23/25 09:01 10 mg Q12HR ENEDELIA Administration Apixaban 5 mg 01/23/25 21:00 Apixaban 5 Mg Tablet PO Q12HR ENEDELIA Benzocaine 1 lozenge 01/14/25 00:38 Benzocaine/Menthol (*Bkc) 18 Ea Lozenge PO PRN PRN Sore Throat Carvedilol 25 mg 01/13/25 21:00 01/22/25 09:14 Carvedilol 25 Mg Tablet PO 25 mg Q12HR ENEDELIA Administration Clopidogrel Bisulfate 75 mg 01/14/25 09:00 01/22/25 09:14 Clopidogrel Bisulfate 75 Mg Tablet PO 75 mg QAM ENEDELIA Administration Felodipine 10 mg 01/14/25 09:00 01/22/25 09:13 Felodipine 5 Mg Tab Cr PO 10 mg QAM ENEDELIA Administration Guaifenesin 1,200 mg 01/14/25 09:00 01/22/25 09:13 Guaifenesin 12 Hr 600 Mg Tabcr PO 1,200 mg Q12HR ENEDELIA Administration Meropenem 1 gm in 100 mls @ 200 mls/hr 01/22/25 11:00 01/22/25 11:41 IVPB 200 mls/hr Q12HR ENEDELIA Administration Isosorbide Mononitrate 30 mg 01/14/25 09:00 01/22/25 09:14 Isosorbide Mononitrate 30 Mg Tab.Er.24h PO 30 mg DAILY ENEDELIA Administration Levothyroxine Sodium 88 mcg 01/14/25 06:30 01/22/25 06:29 Levothyroxine Sodium 88 Mcg Tablet PO 88 mcg DAILY@0630 ENEDELIA Administration Ondansetron HCl 4 mg 01/13/25 20:15 Ondansetron Inj 4 Mg/2 Ml Vial IV PUSH Q6H PRN Nausea And Vomiting Oseltamivir Phosphate 30 mg 01/21/25 21:00 01/22/25 09:13 Oseltamivir Phosphate 30 Mg Capsule PO 01/23/25 21:01 30 mg Q12HR ENEDELIA Administration Oxybutynin Chloride 15 mg 01/14/25 09:00 01/22/25 09:12 Oxybutynin Chloride Xl 5 Mg Tab.Er.24 PO 15 mg DAILY ENEDELIA Administration Pantoprazole Sodium 40 mg 01/14/25 09:00 01/22/25 09:14 Pantoprazole 40 Mg Tablet PO 40 mg QAM ENEDELIA Administration Polyethylene Glycol 17 gm 01/21/25 12:55 01/22/25 09:15 Polyethylene Glycol 3350 17 Gm Powd.Pack PO 17 gm QAM ENEDELIA Administration Ranolazine 500 mg 01/13/25 21:00 01/22/25 09:14 Ranolazine 500 Mg Tab.Er.12h PO 500 mg Q12HR ENEDELIA Administration Rosuvastatin Calcium 40 mg 01/14/25 09:00 01/22/25 09:14 Rosuvastatin 20 Mg Tablet PO 40 mg DAILY ENEDELIA Administration Senna 8.6 mg 01/21/25 12:55 01/21/25 16:11 Sennosides 8.6 Mg Tablet PO 8.6 mg DAILY PRN Administration Constipation Radiology Results: ITS Impressions Chest CTA 01/14/25 15:03 IMPRESSION: 1. Pulmonary embolism. 2. Bilateral basal pneumonia. 3. Trace of pericardial effusion. 4. Status post left nephrectomy and splenectomy. Prominent left adrenal gland. Physician: Jana Vieira APRN Was notified with the result of the patient at 3:24 PM on January 14, 2025 Venous Doppler Study 01/15/25 15:00 IMPRESSION: Bilateral deep vein thrombosis involving the posterior tibial and peroneal veins.. Chest X-Ray 01/22/25 09:23 IMPRESSION: Left lower lobe infiltrate with a left-sided pleural effusion. Labs Labs: Laboratory Results - last 24 hr 01/22/25 01/22/25 01/22/25 04:15 05:04 17:52 WBC 17.7 H RBC 2.80 L Hgb 8.4 L Hct 26.2 L MCV 93.6 MCH 30.0 MCHC 32.1 RDW 17.8 H Plt Count 330 MPV 10.1 Immature Gran % (Auto) 1.5 H Neut % (Auto) 87.6 H Lymph % (Auto) 6.8 L [place] % (Auto) 4.0 Eos % (Auto) 0.0 Baso % (Auto) 0.1 L Lymph # (Auto) 1.20 [place] # (Auto) 0.7 H Eos # (Auto) 0.0 Baso # (Auto) 0.0 Abs Immat Gran (auto) 0.26 H Absolute Neuts (auto) 15.5 H Absolute Nucleated RBC 0.040 H Nucleated RBC % 0.2 PT 36.9 H INR 3.6 Puncture Site Right brachial ABG pH 7.467 H ABG pCO2 29.2 L ABG pO2 61.8 L ABG PO2/FiO2 Ratio 1.29 ABG HCO3 20.6 L ABG O2 Saturation 93.4 L ABG O2 Content 12.1 L ABG Base Excess -2.4 A-a Gradient 247.4 Oxyhemoglobin 91.3 Total Hemoglobin 9.4 L O2 Delivery Device High flow therapy O2 Liters/Min 30.0 FiO2 48 Sodium 136 L Potassium 3.7 Chloride 104 Carbon Dioxide 20 L Anion Gap 12 BUN 28 H Creatinine 1.23 H Estim Creat Clear Calc 36 Estimated GFR 43 L Glucose 101 Calcium 8.7 Magnesium 1.9 Total Bilirubin 0.6 AST 51 H ALT 120 H Alkaline Phosphatase 156 H Total Protein 7.0 Albumin 3.0 L Quality VTE Prophylaxis VTE prophylaxis: mechanical ordered
[2025-01-22] MEDS: ACETAMINOPHEN 325 MG TABLET 650 MG PO (20:53)
[2025-01-22] MEDS: SENNOSIDES 8.6 MG TABLET PO (20:54)
[2025-01-23] VITALS (27 sets, daily range): BP systolic 110–128; BP diastolic 49–58; PULSE 68–86; RESP 17–20; TEMP 36.4–36.9; O2SAT 91–97
[2025-01-23] MEDS: ACETYLCYSTEINE 20% INHAL SOLN 800 MG/4 ML VIAL 200 MG INHALATION ×4 (02:14→20:40)
[2025-01-23] MEDS: IPRATROPIUM 0.5 MG/ALBUTEROL SULFATE 2.5 MG AMPUL.NEB 3 ML INHALATION ×4 (02:14→20:40)
[2025-01-23 04:34] LABS: Basophils Percent Auto 0.1 % (0.2-1.2); Hematocrit 24.7 % (37.0-47.0); Hemoglobin 8.1 g/dL (12.0-15.0); Immature Granulocyte Absolute 0.23 K/mm3 (0.00-0.031); Immature Granulocyte Percent A 1.5 % (0-0.5); Lymphocytes Absolute Auto 1.25 K/mm3 (0.9-3.2); Mean Corpuscular HGB Conc 32.8 g/dl (32-36); Mean Corpuscular Hemoglobin 30.6 pg (26-34); Mean Corpuscular Volume 93.2 fl (80-100); Mean Platelet Volume 10.1 fl (7.4-10.4); Monocytes Percent Auto 6.1 % (2.6-8.5); Neutrophils Absolute Auto 13.2 K/mm3 (1.3-6.7); Neutrophils Percent Auto 84.3 % (45.5-73.1); Nucleated Red Blood Cells Perc 0.1 % (0.0-0.2); Platelet Count Result 369 k/mm3 (150-375); Red Blood Count 2.65 M/mm3 (4.2-5.4); White Blood Count 15.7 K/mm3 (4.5-10.0)
[2025-01-23 04:49] LABS: Alanine Aminotransferase 112 U/L (6-35); Albumin Level 2.8 g/dL (3.5-5.1); Alkaline Phosphatase 154 U/L (38-126); Anion Gap 8 mmol/L (4-12); Aspartate Amino Transferase 62 U/L (14-36); Bilirubin,Total 0.5 mg/dL (0.2-1.3); Blood Urea Nitrogen 23 mg/dL (7-17); Calcium 8.5 mg/dL (8.4-10.2); Carbon Dioxide 22 mmol/L (22-30); Chloride 105 mmol/L (98-107); Estimated CRCL calculation 36 ml/min; Estimated Glomerular Filt Rate 44; Glucose 104 mg/dL (65-110); Magnesium 1.8 mg/dL (1.6-2.3); Potassium 3.7 mmol/L (3.4-5.0); Sodium 135 mmol/L (137-145)
[2025-01-23 05:01] LABS: Alveolar/Arterial O2 Gradient 250.6 mmHg; Base Excess ABG -2.6 mEq/l (+/-2.0); Fractional Inspired Oxygen 48 %; HCO3 ABG 20.2 mEq/l (22.0-26.0); Oxygen Content ABG 11.8 %vol (16.0-22.0); Oxygen Saturation ABG 93.1 % (95.0-100.0); Oxyhemoglobin 90.6 % THb (90.0-100.0); PCO2 ABG 27.9 mmHg (35.0-45.0); PO2 ABG 60.1 mmHg (80.0-100.0); PO2 FiO2 Ratio Arterial Blood 1.25 %; Total Hemoglobin 9.2 g/dL (12.0-18.0); pH ABG 7.478 (7.350-7.450)
[2025-01-23 05:02] LABS: Device HIGH FLOW THERAPY; Modified Allen's Test Pass; Site Drawn RIGHT RADIAL
[2025-01-23] MEDS: LEVOTHYROXINE SODIUM 88 MCG TABLET PO (07:12)
[2025-01-23] MEDS: MEROPENEM 1 GM/NS 100 ML 1 GM/100 ML BAG IVPB ×2 (08:24→20:28)
[2025-01-23] MEDS: APIXABAN 5 MG TABLET 10 MG PO (08:25)
[2025-01-23] MEDS: PANTOPRAZOLE 40 MG TABLET PO (08:25)
[2025-01-23] MEDS: polyethylene glycoL 3350 17 GM POWD.PACK PO (08:25)
[2025-01-23] MEDS: FELODIPINE 5 MG TAB CR 10 MG PO (08:25)
[2025-01-23] MEDS: ROSUVASTATIN 20 MG TABLET 40 MG PO (08:25)
[2025-01-23] MEDS: OSELTAMIVIR PHOSPHATE 30 MG CAPSULE PO ×2 (08:25→20:27)
[2025-01-23] MEDS: RANOLAZINE 500 MG TAB.ER.12H PO ×2 (08:25→20:27)
[2025-01-23] MEDS: CLOPIDOGREL BISULFATE 75 MG TABLET PO (08:25)
[2025-01-23] MEDS: ISOSORBIDE MONONITRATE 30 MG TAB.ER.24H PO (08:26)
[2025-01-23] MEDS: guaiFENesin 12 HR 600 MG TABCR 1200 MG PO ×2 (08:26→20:27)
[2025-01-23] MEDS: oxyBUTYnin CHLORIDE XL 5 MG TAB.ER.24 15 MG PO (08:26)
[2025-01-23] MEDS: carvediloL 25 MG TABLET PO ×2 (08:26→20:27)
--- NOTE | 2025-01-23 10:02 | PM.PNPUL ---
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 She is receiving appropriate treatment with a direct anticoagulant but continues to require high supplemental oxygen via nasal cannula. Recent chest imaging, including a CT scan, showed bilateral lower lobe consolidations. In the context of acute pulmonary embolism, these are most likely indicative of atelectasis rather than pneumonia. Patient recently completed treatment with ceftriaxone and Zithromax for possible post influenza lower respiratory tract infection. The patient's respiratory status remains essentially unchanged from a clinical perspective. She is currently on meropenem. The physical examination remains essentially unchanged today; however, the patient appears to be responding positively by expectorating more phlegm following intensified pulmonary toilet with the use of a vest. Additionally, the patient's white blood cell count is trending downward today. Plan: Continue with current antibiotic regimen, aggressive pulmonary toilet, out of bed to chair. (3) Pneumonia: Code(s): J18.9 - Pneumonia, unspecified organism Status: Acute Subjective Date/time seen: 01/23/25 10:02 Interval history: Patient stated she is doing better. She was able to cough up phlegm after using vest and other pulmonary toilet techniques. She still on high-flow nasal cannula. She spends most of the day in bed. Review of Systems Review of Systems: All systems reviewed & are unremarkable except as noted in HPI and below (HPI and below) Exam Narrative: GENERAL APPEARANCE: Well developed, well nourished, alert and cooperative, and appears to be in no acute distress while on supplemental oxygen via nasal cannula SKIN: Inspection of the skin reveals no rashes, ulcerations or petechiae. HEENT: Sclerae anicteric and conjunctivae pink and moist. Extraocular movements were intact and pupils were equal, round, and reactive to light. The oral mucosa, hard and soft palate, tongue and posterior pharynx were normal. NECK: Supple. There was no thyroid enlargement, and no tenderness, or masses were felt. LUNGS: Decreased breath sounds at bases posteriorly no wheezing CARDIAC: There was a regular rate and rhythm without any murmurs, gallops, rubs. ABDOMEN: Soft and nontender with normal bowel sounds. There was no organomegaly. LYMPH NODES: No lymphadenopathy was appreciated in the neck. EXTREMITIES: No cyanosis, clubbing or edema. NEUROLOGIC: Alert and oriented x 3. Normal affect. Objective Data Vital Signs Vital Signs: Vital Signs - 24 hr 01/22/25 11:36 01/22/25 12:00 01/22/25 12:00 Temperature 37.1 C Pulse Rate 77 76 Respiratory Rate 18 Blood Pressure 119/61 Pulse Oximetry 93 93 Oxygen Delivery High Flow Therapy with Na Oxygen Flow Rate 30 Fraction of Inspired Oxygen 50 01/22/25 13:58 01/22/25 14:00 01/22/25 15:37 Temperature 36.3 C L Pulse Rate 78 77 81 Respiratory Rate 18 20 Blood Pressure 110/44 L Pulse Oximetry 93 Oxygen Delivery Oxygen Flow Rate Fraction of Inspired Oxygen 01/22/25 16:00 01/22/25 16:00 01/22/25 18:00 Temperature Pulse Rate 79 93 Respiratory Rate Blood Pressure Pulse Oximetry 93 Oxygen Delivery High Flow Therapy with Na Oxygen Flow Rate 30 Fraction of Inspired Oxygen 50 01/22/25 20:00 01/22/25 20:00 01/22/25 20:12 Temperature 37.4 C Pulse Rate 78 78 76 Respiratory Rate 20 20 Blood Pressure 119/55 L Pulse Oximetry 96 96 Oxygen Delivery High Flow Therapy with Na Oxygen Flow Rate 35 Fraction of Inspired Oxygen 50 01/22/25 20:41 01/22/25 20:41 01/22/25 20:52 Temperature Pulse Rate 77 77 80 Respiratory Rate 20 20 Blood Pressure Pulse Oximetry 95 Oxygen Delivery High Flow Therapy with Na Oxygen Flow Rate 30 Fraction of Inspired Oxygen 48 01/22/25 20:55 01/22/25 23:28 01/23/25 00:00 Temperature 36.8 C Pulse Rate 78 63 68 Respiratory Rate 20 20 Blood Pressure 117/53 L Pulse Oximetry 95 Oxygen Delivery Oxygen Flow Rate Fraction of Inspired Oxygen 01/23/25 00:00 01/23/25 02:00 01/23/25 02:15 Temperature Pulse Rate 68 86 70 Respiratory Rate 20 20 Blood Pressure Pulse Oximetry 95 96 Oxygen Delivery High Flow Therapy with Na High Flow Therapy with Na Oxygen Flow Rate 35 30 Fraction of Inspired Oxygen 48 48 01/23/25 02:15 01/23/25 04:00 01/23/25 04:00 Temperature Pulse Rate 70 72 72 Respiratory Rate 20 20 Blood Pressure Pulse Oximetry 96 Oxygen Delivery High Flow Therapy with Na Oxygen Flow Rate 35 Fraction of Inspired Oxygen 48 01/23/25 04:25 01/23/25 06:00 01/23/25 07:53 Temperature 36.9 C Pulse Rate 70 73 74 Respiratory Rate 18 20 Blood Pressure 122/51 L Pulse Oximetry 91 96 Oxygen Delivery High Flow Therapy with Na Oxygen Flow Rate 30 Fraction of Inspired Oxygen 48 01/23/25 07:53 01/23/25 08:00 01/23/25 08:07 Temperature 36.9 C Pulse Rate 74 72 Respiratory Rate 20 20 Blood Pressure 128/49 L Pulse Oximetry 97 94 Oxygen Delivery High Flow Therapy with Na Oxygen Flow Rate 35 Fraction of Inspired Oxygen 48 01/23/25 08:26 Temperature Pulse Rate 76 Respiratory Rate Blood Pressure Pulse Oximetry Oxygen Delivery Oxygen Flow Rate Fraction of Inspired Oxygen Intake/Output Intake/Output: Intake & Output 01/20/25 01/21/25 01/22/25 01/23/25 23:59 23:59 23:59 23:59 Intake Total 1920 1650 1430 540 Output Total 700 1025 950 300 Balance 1220 625 480 240 Meds/Results Medications: Active Medications Generic Name Dose Route Start Last Admin Trade Name Freq PRN Reason Stop Dose Admin Acetaminophen 650 mg 01/13/25 20:15 01/22/25 20:53 Acetaminophen 325 Mg Tablet PO 650 mg Q4H PRN Administration Mild Pain (1-3) or Fever Acetylcysteine 200 mg 01/21/25 14:00 01/23/25 07:52 Acetylcysteine 20% Inhal Soln 800 Mg/4 Ml Vial INHALATION 200 mg Q6HRT ENEDELIA Administration Albuterol/Ipratropium 3 ml 01/13/25 20:00 01/23/25 07:52 Ipratropium 0.5 Mg/Albuterol Sulfate 2.5 Mg Ampul.Neb 3 Ml INHALATION 3 ml Q6HRT ENEDELIA Administration Apixaban 5 mg 01/23/25 21:00 Apixaban 5 Mg Tablet PO Q12HR ENEDELIA Benzocaine 1 lozenge 01/14/25 00:38 Benzocaine/Menthol (*Bkc) 18 Ea Lozenge PO PRN PRN Sore Throat Carvedilol 25 mg 01/13/25 21:00 01/23/25 08:26 Carvedilol 25 Mg Tablet PO 25 mg Q12HR ENEDELIA Administration Clopidogrel Bisulfate 75 mg 01/14/25 09:00 01/23/25 08:25 Clopidogrel Bisulfate 75 Mg Tablet PO 75 mg QAM ENEDELIA Administration Felodipine 10 mg 01/14/25 09:00 01/23/25 08:25 Felodipine 5 Mg Tab Cr PO 10 mg QAM ENEDELIA Administration Guaifenesin 1,200 mg 01/14/25 09:00 01/23/25 08:26 Guaifenesin 12 Hr 600 Mg Tabcr PO 1,200 mg Q12HR ENEDELIA Administration Meropenem 1 gm in 100 mls @ 200 mls/hr 01/22/25 11:00 01/23/25 08:24 IVPB 200 mls/hr Q12HR ENEDELIA Administration Isosorbide Mononitrate 30 mg 01/14/25 09:00 01/23/25 08:26 Isosorbide Mononitrate 30 Mg Tab.Er.24h PO 30 mg DAILY ENEDELIA Administration Levothyroxine Sodium 88 mcg 01/14/25 06:30 01/23/25 07:12 Levothyroxine Sodium 88 Mcg Tablet PO 88 mcg DAILY@0630 ENEDELIA Administration Ondansetron HCl 4 mg 01/13/25 20:15 Ondansetron Inj 4 Mg/2 Ml Vial IV PUSH Q6H PRN Nausea And Vomiting Oseltamivir Phosphate 30 mg 01/21/25 21:00 01/23/25 08:25 Oseltamivir Phosphate 30 Mg Capsule PO 01/23/25 21:01 30 mg Q12HR ENEDELIA Administration Oxybutynin Chloride 15 mg 01/14/25 09:00 01/23/25 08:26 Oxybutynin Chloride Xl 5 Mg Tab.Er.24 PO 15 mg DAILY ENEDELIA Administration Pantoprazole Sodium 40 mg 01/14/25 09:00 01/23/25 08:25 Pantoprazole 40 Mg Tablet PO 40 mg QAM ENEDELIA Administration Polyethylene Glycol 17 gm 01/21/25 12:55 01/23/25 08:25 Polyethylene Glycol 3350 17 Gm Powd.Pack PO 17 gm QAM ENEDELIA Administration Ranolazine 500 mg 01/13/25 21:00 01/23/25 08:25 Ranolazine 500 Mg Tab.Er.12h PO 500 mg Q12HR ENEDELIA Administration Rosuvastatin Calcium 40 mg 01/14/25 09:00 01/23/25 08:25 Rosuvastatin 20 Mg Tablet PO 40 mg DAILY ENEDELIA Administration Senna 8.6 mg 01/21/25 12:55 01/22/25 20:54 Sennosides 8.6 Mg Tablet PO 8.6 mg DAILY PRN Administration Constipation Radiology Results: ITS Impressions Chest CTA 01/14/25 15:03 IMPRESSION: 1. Pulmonary embolism. 2. Bilateral basal pneumonia. 3. Trace of pericardial effusion. 4. Status post left nephrectomy and splenectomy. Prominent left adrenal gland. Physician: Jana Vieira APRN Was notified with the result of the patient at 3:24 PM on January 14, 2025 Venous Doppler Study 01/15/25 15:00 IMPRESSION: Bilateral deep vein thrombosis involving the posterior tibial and peroneal veins.. Chest X-Ray 01/22/25 09:23 IMPRESSION: Left lower lobe infiltrate with a left-sided pleural effusion. Labs Labs: Laboratory Results - last 24 hr 01/22/25 01/23/25 01/23/25 17:52 04:03 04:56 WBC 15.7 H RBC 2.65 L Hgb 8.1 L Hct 24.7 L MCV 93.2 MCH 30.6 MCHC 32.8 RDW 18.0 H Plt Count 369 MPV 10.1 Immature Gran % (Auto) 1.5 H Neut % (Auto) 84.3 H Lymph % (Auto) 8.0 L [place] % (Auto) 6.1 Eos % (Auto) 0.0 Baso % (Auto) 0.1 L Lymph # (Auto) 1.25 [place] # (Auto) 1.0 H Eos # (Auto) 0.0 Baso # (Auto) 0.0 Abs Immat Gran (auto) 0.23 H Absolute Neuts (auto) 13.2 H Absolute Nucleated RBC 0.020 H Nucleated RBC % 0.1 PT 36.9 H INR 3.6 Puncture Site Right radial ABG pH 7.478 H ABG pCO2 27.9 L ABG pO2 60.1 L ABG PO2/FiO2 Ratio 1.25 ABG HCO3 20.2 L ABG O2 Saturation 93.1 L ABG O2 Content 11.8 L ABG Base Excess -2.6 A-a Gradient 250.6 Oxyhemoglobin 90.6 Total Hemoglobin 9.2 L O2 Delivery Device High flow therapy O2 Liters/Min 30.0 FiO2 48 Sodium 135 L Potassium 3.7 Chloride 105 Carbon Dioxide 22 Anion Gap 8 BUN 23 H Creatinine 1.21 H Estim Creat Clear Calc 36 Estimated GFR 44 L Glucose 104 Calcium 8.5 Magnesium 1.8 Total Bilirubin 0.5 AST 62 H ALT 112 H Alkaline Phosphatase 154 H Total Protein 6.0 L Albumin 2.8 L
--- NOTE | 2025-01-23 15:57 | PM.IMPN ---
Progress Note: A&P Assessment and Plan (1) Pulmonary embolism: Code(s): I26.99 - Other pulmonary embolism without acute cor pulmonale Status: Acute Assessment and Plan: 3/4 rapid response for acute hypoxia CTA showing Pulmonary embolism is seen in the branches of the right and left lower and upper lobes arteries Echo pending to check for right heart strain Patient placed on heparin drip Monitor cardiac catheterization access site for hematoma Wean oxygen to SpO2 of 90% After CT patient lost her voice however she does not have stridor will treat for possible allergy and monitor closely, she has had contrast in the past without incident (2) Influenza A: Code(s): J10.1 - Influenza due to other identified influenza virus with other respiratory manifestations Status: Acute Assessment and Plan: Guaifenesin Tamiflu Tylenol (3) Pneumonia: Code(s): J18.9 - Pneumonia, unspecified organism Status: Acute Assessment and Plan: Left lower lobe pneumonia Started on Rocephin and azithromycin Breathing treatments Incentive spirometer (4) Acute respiratory failure with hypoxia: Code(s): J96.01 - Acute respiratory failure with hypoxia Status: Acute Assessment and Plan: currently on 4 L nasal cannula, continue to wean for an O2 sat greater than 92% continue DuoNeb breathing treatments q.6 hour patient was given 1 dose of Lasix 40 mg IV while in cardiac photo lab manager recovery proBNP 746 (5) Chronic obstructive pulmonary disease: Code(s): J44.9 - Chronic obstructive pulmonary disease, unspecified Status: Acute Assessment and Plan: see above plan of care likely to exacerbation On antibiotics IV Solu-Medrol x1 Oral prednisone starting tomorrow (6) Coronary artery disease: Code(s): I25.10 - Atherosclerotic heart disease of [place] coronary artery without angina pectoris Status: Acute Assessment and Plan: history of coronary artery disease with stent placement continue cardiac monitoring patient had a nuclear stress test and a PET myocardial perfusion imaging recently which were abnormal status post cardiac catheterization today with Dr. Carvalho. LAD showed 40-50% stenosis, RCA 30-40% stenosis. This was for cardiac clearance for an upcoming hernia repair surgery. cardiology primary this admission continue rosuvastatin and Plavix continue vascular checks to right radial puncture site (7) Stage 3a chronic kidney disease: Code(s): N18.31 - Chronic kidney disease, stage 3a Status: Acute Assessment and Plan: labs today showed a creatinine of 1.36, EGFR 39 baseline creatinine appears to trend between 1.17-1.22, EGFR ranging 44-46 continue to trend (8) Paroxysmal atrial fibrillation: Code(s): I48.0 - Paroxysmal atrial fibrillation Status: Acute Assessment and Plan: continue carvedilol Coumadin on hold for today due to cardiac catheterization INR 1.1 today Deferring to Cardiology 1 to restart (9) Essential hypertension: Code(s): I10 - Essential (primary) hypertension Status: Acute Assessment and Plan: blood pressure ranging 116/86 to 145/73 continue felodipine and Imdur (10) Hypothyroidism: Code(s): E03.9 - Hypothyroidism, unspecified Status: Acute Assessment and Plan: continue Synthroid last TSH was 0.543 on 12/16/2023 TSH low (11) Anemia: Code(s): D64.9 - Anemia, unspecified Status: Acute Assessment and Plan: hemoglobin 9.9 appears chronic iron 46, ferritin 65.20, vitamin B12 864 on 11/29/24 TSH was 0.543 on 12/16/2023 Folate over 20, will hold while in hospital, patient could switch to every other day (12) GERD (gastroesophageal reflux disease): Code(s): K21.9 - Gastro-esophageal reflux disease without esophagitis Status: Acute Assessment and Plan: start Protonix Plan Chest x-ray shows left lower lobe pneumonia started on antibiotics in a.m.. Patient had increasing oxygen demands overnight from 2 L to 4, however today she is progressively had higher oxygen demands and ended up having a rapid response (see critical care note for details) for hypoxia placed on on non breather CTA showed Pulmonary embolism is seen in the branches of the right and left lower and upper lobes arteries. Venous Doppler of bilateral lower extremity showed, bilateral deep vein thrombosis involving the posterior tibial and peroneal veins.. Patient also has bilateral pneumonia, patient is being treated with warfarin INR is subtherapeutic and bridge with Lovenox, we may discussed with the [facility] surgeon/general dermatologist to switch over to Eliquis and further recommendation to follow. Surveying Crew Rodman is agreeable to switch patient to DOAC, discus with pharmacist and started Eliquis 10mg BID for 7 days thereafter switch to 5mg BID, patient still requiring high flow oxygen secondary to influenza A, pneumonia and exacerbation of COPD. Patient is being treated with Tamiflu, prednisone, duo neb, azithromycin and ceftriaxone will continue to monitor. Patient continue to require high-flow oxygen and desatted with slight exertion, on 01/[address] Morales poultry farmer reviewed the chart, recommended repeat ABG which did not show any hypercapnia, also extended course of Tamiflu to 10 days, today patient compelted 10 days course and DC prednisone as it is not recommended with influenza A, and started on high flow NC 12L, today patient is feeling better and oxygenation has improved, patient is sitting on the side of the bed getting ready to work with PT, patient is seen by poultry farmer has escaleted abx now taking meropenem as patient showed pneumonia. Subjective Date/time seen: 01/23/25 15:57 Interval history: 69 year old female with CAD with coronary stents, COPD, CKD stage 3, AAA, DVT, paroxysmal atrial fibrillation, PE, HTN, GERD, anxiety, GOUT, JANNY, migraines, hypothyroidism, PVD, former smoker who presented originally for an outpatient heart catheterization with Dr. Carvalho as a preop cardiac work up for hernia repair surgery. Hospitalist team consulted for acute respiratory failure with hypoxia secondary to flu A. Chest x-ray shows left lower lobe pneumonia started on antibiotics in a.m.. Patient had increasing oxygen demands overnight from 2 L to 4, however today she is progressively had higher oxygen demands and ended up having a rapid response (see critical care note for details) for hypoxia placed on on non breather CTA showed Pulmonary embolism is seen in the branches of the right and left lower and upper lobes arteries. Venous Doppler of bilateral lower extremity showed, bilateral deep vein thrombosis involving the posterior tibial and peroneal veins.. Patient also has bilateral pneumonia, patient is being treated with warfarin INR is subtherapeutic and bridge with Lovenox, we may discussed with the [facility] surgeon/general dermatologist to switch over to Eliquis and further recommendation to follow. Surveying Crew Rodman is agreeable to switch patient to DOAC, discus with pharmacist and started Eliquis 10mg BID for 7 days thereafter switch to 5mg BID, patient still requiring high flow oxygen secondary to influenza A, pneumonia and exacerbation of COPD. Patient is being treated with Tamiflu, prednisone, duo neb, azithromycin and ceftriaxone will continue to monitor. Patient continue to require high-flow oxygen and desatted with slight exertion, on 01/[address] Morales poultry farmer reviewed the chart, recommended repeat ABG which did not show any hypercapnia, also extended course of Tamiflu to 10 days, today patient compelted 10 days course and DC prednisone as it is not recommended with influenza A, and started on high flow NC 12L, today patient is feeling better and oxygenation has improved, patient is sitting on the side of the bed getting ready to work with PT, patient is seen by poultry farmer has escaleted abx now taking meropenem as patient showed pneumonia. Review of Systems Review of Systems: All systems reviewed & are unremarkable except as noted in HPI and below Exam Narrative: Patient is comfortable, NAD HEENT: eyes are clear and none icteric LUNGS: Bilateral fair air entry with rhonchi and wheezing HEART: RR S1S2 ABD: BS+, Soft and nontender Lower extremities: no edema SKIN: nonjaundiced Neuro: grossly intact. Objective Data Vital Signs Vital Signs: Vital Signs - 24 hr 01/22/25 16:00 01/22/25 16:00 01/22/25 18:00 Temperature Pulse Rate 79 93 Respiratory Rate Blood Pressure Pulse Oximetry 93 Oxygen Delivery High Flow Therapy with Na Oxygen Flow Rate 30 Fraction of Inspired Oxygen 50 01/22/25 20:00 01/22/25 20:00 01/22/25 20:12 Temperature 37.4 C Pulse Rate 78 78 76 Respiratory Rate 20 20 Blood Pressure 119/55 L Pulse Oximetry 96 96 Oxygen Delivery High Flow Therapy with Na Oxygen Flow Rate 35 Fraction of Inspired Oxygen 50 01/22/25 20:41 01/22/25 20:41 01/22/25 20:52 Temperature Pulse Rate 77 77 80 Respiratory Rate 20 20 Blood Pressure Pulse Oximetry 95 Oxygen Delivery High Flow Therapy with Na Oxygen Flow Rate 30 Fraction of Inspired Oxygen 48 01/22/25 20:55 01/22/25 23:28 01/23/25 00:00 Temperature 36.8 C Pulse Rate 78 63 68 Respiratory Rate 20 20 Blood Pressure 117/53 L Pulse Oximetry 95 Oxygen Delivery Oxygen Flow Rate Fraction of Inspired Oxygen 01/23/25 00:00 01/23/25 02:00 01/23/25 02:15 Temperature Pulse Rate 68 86 70 Respiratory Rate 20 20 Blood Pressure Pulse Oximetry 95 96 Oxygen Delivery High Flow Therapy with Na High Flow Therapy with Na Oxygen Flow Rate 35 30 Fraction of Inspired Oxygen 48 48 01/23/25 02:15 01/23/25 04:00 01/23/25 04:00 Temperature Pulse Rate 70 72 72 Respiratory Rate 20 20 Blood Pressure Pulse Oximetry 96 Oxygen Delivery High Flow Therapy with Na Oxygen Flow Rate 35 Fraction of Inspired Oxygen 48 01/23/25 04:25 01/23/25 06:00 01/23/25 07:53 Temperature 36.9 C Pulse Rate 70 73 74 Respiratory Rate 18 20 Blood Pressure 122/51 L Pulse Oximetry 91 96 Oxygen Delivery High Flow Therapy with Na Oxygen Flow Rate 30 Fraction of Inspired Oxygen 48 01/23/25 07:53 01/23/25 08:00 01/23/25 08:00 Temperature Pulse Rate 74 72 Respiratory Rate 20 Blood Pressure Pulse Oximetry 97 Oxygen Delivery High Flow Therapy with Na Oxygen Flow Rate 35 Fraction of Inspired Oxygen 48 01/23/25 08:07 01/23/25 08:26 01/23/25 10:00 Temperature 36.9 C Pulse Rate 72 76 72 Respiratory Rate 20 Blood Pressure 128/49 L Pulse Oximetry 94 Oxygen Delivery Oxygen Flow Rate Fraction of Inspired Oxygen 01/23/25 11:10 01/23/25 12:00 01/23/25 12:00 Temperature 36.4 C Pulse Rate 81 81 Respiratory Rate 17 Blood Pressure 110/58 L Pulse Oximetry 91 95 Oxygen Delivery High Flow Therapy with Na Oxygen Flow Rate 35 Fraction of Inspired Oxygen 48 01/23/25 13:45 01/23/25 13:52 01/23/25 13:55 Temperature Pulse Rate 72 72 77 Respiratory Rate 20 20 20 Blood Pressure Pulse Oximetry 97 Oxygen Delivery High Flow Therapy with Na Oxygen Flow Rate 30 Fraction of Inspired Oxygen 40 01/23/25 14:00 01/23/25 15:35 Temperature 36.9 C Pulse Rate 74 71 Respiratory Rate 18 Blood Pressure 122/51 L Pulse Oximetry 92 Oxygen Delivery Oxygen Flow Rate Fraction of Inspired Oxygen Intake/Output Intake/Output: Intake & Output 01/20/25 01/21/25 01/22/25 01/23/25 23:59 23:59 23:59 23:59 Intake Total 1920 1650 1430 900 Output Total 700 1025 950 300 Balance 1220 625 480 600 Meds/Results Medications: Active Medications Generic Name Dose Route Start Last Admin Trade Name Freq PRN Reason Stop Dose Admin Acetaminophen 650 mg 01/13/25 20:15 01/22/25 20:53 Acetaminophen 325 Mg Tablet PO 650 mg Q4H PRN Administration Mild Pain (1-3) or Fever Acetylcysteine 200 mg 01/21/25 14:00 01/23/25 13:50 Acetylcysteine 20% Inhal Soln 800 Mg/4 Ml Vial INHALATION 200 mg Q6HRT ENEDELIA Administration Albuterol/Ipratropium 3 ml 01/13/25 20:00 01/23/25 13:50 Ipratropium 0.5 Mg/Albuterol Sulfate 2.5 Mg Ampul.Neb 3 Ml INHALATION 3 ml Q6HRT ENEDELIA Administration Apixaban 5 mg 01/23/25 21:00 Apixaban 5 Mg Tablet PO Q12HR ENEDELIA Benzocaine 1 lozenge 01/14/25 00:38 Benzocaine/Menthol (*Bkc) 18 Ea Lozenge PO PRN PRN Sore Throat Carvedilol 25 mg 01/13/25 21:00 01/23/25 08:26 Carvedilol 25 Mg Tablet PO 25 mg Q12HR ENEDELIA Administration Clopidogrel Bisulfate 75 mg 01/14/25 09:00 01/23/25 08:25 Clopidogrel Bisulfate 75 Mg Tablet PO 75 mg QAM [facility] Administration Felodipine 10 mg 01/14/25 09:00 01/23/25 08:25 Felodipine 5 Mg Tab Cr PO 10 mg QAM [facility] Administration Guaifenesin 1,200 mg 01/14/25 09:00 01/23/25 08:26 Guaifenesin 12 Hr 600 Mg Tabcr PO 1,200 mg Q12HR ENEDELIA Administration Meropenem 1 gm in 100 mls @ 200 mls/hr 01/22/25 11:00 01/23/25 08:24 IVPB 200 mls/hr Q12HR [facility] Administration Isosorbide Mononitrate 30 mg 01/14/25 09:00 01/23/25 08:26 Isosorbide Mononitrate 30 Mg Tab.Er.24h PO 30 mg DAILY ENEDELIA Administration Levothyroxine Sodium 88 mcg 01/14/25 06:30 01/23/25 07:12 Levothyroxine Sodium 88 Mcg Tablet PO 88 mcg DAILY@0630 ENEDELIA Administration Ondansetron HCl 4 mg 01/13/25 20:15 Ondansetron Inj 4 Mg/2 Ml Vial IV PUSH Q6H PRN Nausea And Vomiting Oseltamivir Phosphate 30 mg 01/21/25 21:00 01/23/25 08:25 Oseltamivir Phosphate 30 Mg Capsule PO 01/23/25 21:01 30 mg Q12HR ENEDELIA Administration Oxybutynin Chloride 15 mg 01/14/25 09:00 01/23/25 08:26 Oxybutynin Chloride Xl 5 Mg Tab.Er.24 PO 15 mg DAILY ENEDELIA Administration Pantoprazole Sodium 40 mg 01/14/25 09:00 01/23/25 08:25 Pantoprazole 40 Mg Tablet PO 40 mg QAM ENEDELIA Administration Polyethylene Glycol 17 gm 01/21/25 12:55 01/23/25 08:25 Polyethylene Glycol 3350 17 Gm Powd.Pack PO 17 gm QAM ENEDELIA Administration Ranolazine 500 mg 01/13/25 21:00 01/23/25 08:25 Ranolazine 500 Mg Tab.Er.12h PO 500 mg Q12HR ENEDELIA Administration Rosuvastatin Calcium 40 mg 01/14/25 09:00 01/23/25 08:25 Rosuvastatin 20 Mg Tablet PO 40 mg DAILY ENEDELIA Administration Senna 8.6 mg 01/21/25 12:55 01/22/25 20:54 Sennosides 8.6 Mg Tablet PO 8.6 mg DAILY PRN Administration Constipation Radiology Results: ITS Impressions Chest CTA 01/14/25 15:03 IMPRESSION: 1. Pulmonary embolism. 2. Bilateral basal pneumonia. 3. Trace of pericardial effusion. 4. Status post left nephrectomy and splenectomy. Prominent left adrenal gland. Physician: Jana Vieira APRN Was notified with the result of the patient at 3:24 PM on January 14, 2025 Venous Doppler Study 01/15/25 15:00 IMPRESSION: Bilateral deep vein thrombosis involving the posterior tibial and peroneal veins.. Chest X-Ray 01/22/25 09:23 IMPRESSION: Left lower lobe infiltrate with a left-sided pleural effusion. Labs Labs: Laboratory Results - last 24 hr 01/22/25 01/23/25 01/23/25 17:52 04:03 04:56 WBC 15.7 H RBC 2.65 L Hgb 8.1 L Hct 24.7 L MCV 93.2 MCH 30.6 MCHC 32.8 RDW 18.0 H Plt Count 369 MPV 10.1 Immature Gran % (Auto) 1.5 H Neut % (Auto) 84.3 H Lymph % (Auto) 8.0 L Emanuel % (Auto) 6.1 Eos % (Auto) 0.0 Baso % (Auto) 0.1 L Lymph # (Auto) 1.25 Emanuel # (Auto) 1.0 H Eos # (Auto) 0.0 Baso # (Auto) 0.0 Abs Immat Gran (auto) 0.23 H Absolute Neuts (auto) 13.2 H Absolute Nucleated RBC 0.020 H Nucleated RBC % 0.1 PT 36.9 H INR 3.6 Puncture Site Right radial ABG pH 7.478 H ABG pCO2 27.9 L ABG pO2 60.1 L ABG PO2/FiO2 Ratio 1.25 ABG HCO3 20.2 L ABG O2 Saturation 93.1 L ABG O2 Content 11.8 L ABG Base Excess -2.6 A-a Gradient 250.6 Oxyhemoglobin 90.6 Total Hemoglobin 9.2 L O2 Delivery Device High flow therapy O2 Liters/Min 30.0 FiO2 48 Sodium 135 L Potassium 3.7 Chloride 105 Carbon Dioxide 22 Anion Gap 8 BUN 23 H Creatinine 1.21 H Estim Creat Clear Calc 36 Estimated GFR 44 L Glucose 104 Calcium 8.5 Magnesium 1.8 Total Bilirubin 0.5 AST 62 H ALT 112 H Alkaline Phosphatase 154 H Total Protein 6.0 L Albumin 2.8 L Quality VTE Prophylaxis VTE prophylaxis: mechanical ordered
[2025-01-23] MEDS: ONDANSETRON INJ 4 MG/2 ML VIAL IV PUSH (18:40)
[2025-01-23] MEDS: APIXABAN 5 MG TABLET PO (20:28)
[2025-01-23 23:42] LABS: Glucose Point of Care 118 mg/dl (65-105)
[2025-01-24] VITALS (24 sets, daily range): BP systolic 96–121; BP diastolic 47–64; PULSE 70–83; RESP 16–20; TEMP 36.6–36.9; O2SAT 92–99; BMI 11.0
[2025-01-24] MEDS: IPRATROPIUM 0.5 MG/ALBUTEROL SULFATE 2.5 MG AMPUL.NEB 3 ML INHALATION ×4 (02:22→20:30)
[2025-01-24] MEDS: ACETYLCYSTEINE 20% INHAL SOLN 800 MG/4 ML VIAL 200 MG INHALATION ×4 (02:22→20:30)
[2025-01-24 05:03] LABS: INR 2.5; Prothrombin Time 28.1 Seconds (11.1-14.7)
--- NOTE | 2025-01-24 05:06 | PCRCNOTE ---
Patient refused abg draw this morning.
[2025-01-24 05:25] LABS: Magnesium 1.7 mg/dL (1.6-2.3)
[2025-01-24] MEDS: LEVOTHYROXINE SODIUM 88 MCG TABLET PO (05:49)
[2025-01-24] MEDS: carvediloL 25 MG TABLET PO ×2 (09:00→21:16)
[2025-01-24] MEDS: guaiFENesin 12 HR 600 MG TABCR 1200 MG PO ×2 (09:00→21:16)
[2025-01-24] MEDS: ROSUVASTATIN 20 MG TABLET 40 MG PO (09:00)
[2025-01-24] MEDS: MEROPENEM 1 GM/NS 100 ML 1 GM/100 ML BAG IVPB ×2 (09:01→21:17)
[2025-01-24] MEDS: ISOSORBIDE MONONITRATE 30 MG TAB.ER.24H PO (09:01)
[2025-01-24] MEDS: RANOLAZINE 500 MG TAB.ER.12H PO ×2 (09:01→21:16)
[2025-01-24] MEDS: PANTOPRAZOLE 40 MG TABLET PO (09:01)
[2025-01-24] MEDS: CLOPIDOGREL BISULFATE 75 MG TABLET PO (09:01)
[2025-01-24] MEDS: APIXABAN 5 MG TABLET PO ×2 (09:01→21:16)
[2025-01-24] MEDS: oxyBUTYnin CHLORIDE XL 5 MG TAB.ER.24 15 MG PO (09:01)
[2025-01-24] MEDS: FELODIPINE 5 MG TAB CR 10 MG PO (09:01)
[2025-01-24] MEDS: polyethylene glycoL 3350 17 GM POWD.PACK PO (09:23)
--- NOTE | 2025-01-24 09:39 | PM.PNPUL ---
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 She is currently receiving appropriate treatment with a direct oral anticoagulant but still requires high-flow supplemental oxygen via nasal cannula. Recent chest imaging, including a CT scan, revealed bilateral lower lobe consolidations. In the context of her acute pulmonary embolism, these consolidations are most likely indicative of atelectasis rather than pneumonia. She completed a course of ceftriaxone and Zithromax for a possible lower respiratory tract infection, and her white cell count returned to normal. However, a few days later, she developed a cough with mild sputum production and a new leukocytosis. She was started on meropenem for suspected nosocomial pneumonia, with some clinical improvement noted and a decreasing white cell count. She continues to require high-flow oxygen via nasal cannula. Plan: Continue with current antibiotic regimen, aggressive pulmonary toilet, out of bed to chair. (3) Pneumonia: Code(s): J18.9 - Pneumonia, unspecified organism Status: Acute Subjective Date/time seen: 01/24/25 09:39 Interval history: Patient has no new respiratory symptoms. She stated she feels better. No fever chills. Mild coughing with no sputum production. Doing incentive spirometry. Also undergoing chest physical therapy including vest. Still on high flow nasal cannula. Review of Systems Review of Systems: All systems reviewed & are unremarkable except as noted in HPI and below (HPI and below) Exam Narrative: GENERAL APPEARANCE: Well developed, well nourished, alert and cooperative, and appears to be in no acute distress while on supplemental oxygen via nasal cannula SKIN: Inspection of the skin reveals no rashes, ulcerations or petechiae. HEENT: Sclerae anicteric and conjunctivae pink and moist. Extraocular movements were intact and pupils were equal, round, and reactive to light. The oral mucosa, hard and soft palate, tongue and posterior pharynx were normal. NECK: Supple. There was no thyroid enlargement, and no tenderness, or masses were felt. LUNGS: Decreased breath sounds at bases posteriorly no wheezing CARDIAC: There was a regular rate and rhythm without any murmurs, gallops, rubs. ABDOMEN: Soft and nontender with normal bowel sounds. There was no organomegaly. LYMPH NODES: No lymphadenopathy was appreciated in the neck. EXTREMITIES: No cyanosis, clubbing or edema. NEUROLOGIC: Alert and oriented x 3. Normal affect. Objective Data Vital Signs Vital Signs: Vital Signs - 24 hr 01/23/25 10:00 01/23/25 11:10 01/23/25 12:00 Temperature 36.4 C Pulse Rate 72 81 Respiratory Rate 17 Blood Pressure 110/58 L Pulse Oximetry 91 95 Oxygen Delivery High Flow Therapy with Na Oxygen Flow Rate 35 Fraction of Inspired Oxygen 48 01/23/25 12:00 01/23/25 13:45 01/23/25 13:52 Temperature Pulse Rate 81 72 72 Respiratory Rate 20 20 Blood Pressure Pulse Oximetry 97 Oxygen Delivery High Flow Therapy with Na Oxygen Flow Rate 30 Fraction of Inspired Oxygen 40 01/23/25 13:55 01/23/25 14:00 01/23/25 15:35 Temperature 36.9 C Pulse Rate 77 74 71 Respiratory Rate 20 18 Blood Pressure 122/51 L Pulse Oximetry 92 Oxygen Delivery Oxygen Flow Rate Fraction of Inspired Oxygen 01/23/25 16:00 01/23/25 16:00 01/23/25 18:00 Temperature Pulse Rate 74 76 Respiratory Rate Blood Pressure Pulse Oximetry 95 Oxygen Delivery High Flow Therapy with Na Oxygen Flow Rate 30 Fraction of Inspired Oxygen 40 01/23/25 20:00 01/23/25 20:00 01/23/25 20:15 Temperature 36.7 C Pulse Rate 75 75 75 Respiratory Rate 20 20 Blood Pressure 122/58 L Pulse Oximetry 93 93 Oxygen Delivery High Flow Therapy with Na Oxygen Flow Rate 30 Fraction of Inspired Oxygen 40 01/23/25 20:27 01/23/25 20:40 01/23/25 20:44 Temperature Pulse Rate 74 77 77 Respiratory Rate 20 Blood Pressure Pulse Oximetry 95 Oxygen Delivery High Flow Therapy with Na Oxygen Flow Rate 30 Fraction of Inspired Oxygen 40 01/23/25 21:12 01/23/25 22:00 01/23/25 22:00 Temperature Pulse Rate 77 74 Respiratory Rate 20 Blood Pressure Pulse Oximetry 93 Oxygen Delivery High Flow Therapy with Na Oxygen Flow Rate 25 Fraction of Inspired Oxygen 39 01/24/25 00:00 01/24/25 00:00 01/24/25 00:30 Temperature 36.6 C Pulse Rate 75 73 73 Respiratory Rate 20 20 Blood Pressure 121/64 Pulse Oximetry 92 92 Oxygen Delivery High Flow Therapy with Na Oxygen Flow Rate 30 Fraction of Inspired Oxygen 40 01/24/25 02:00 01/24/25 02:22 01/24/25 02:47 Temperature Pulse Rate 74 76 77 Respiratory Rate 20 20 Blood Pressure Pulse Oximetry Oxygen Delivery Oxygen Flow Rate Fraction of Inspired Oxygen 01/24/25 03:51 01/24/25 04:00 01/24/25 04:00 Temperature 36.7 C Pulse Rate 70 77 78 Respiratory Rate 18 18 Blood Pressure 118/62 Pulse Oximetry 94 96 Oxygen Delivery High Flow Therapy with Na Oxygen Flow Rate 30 Fraction of Inspired Oxygen 40 01/24/25 06:00 01/24/25 07:15 01/24/25 07:15 Temperature Pulse Rate 73 78 Respiratory Rate 20 Blood Pressure Pulse Oximetry 93 Oxygen Delivery High Flow Therapy with Na Oxygen Flow Rate 25 Fraction of Inspired Oxygen 39 01/24/25 07:41 01/24/25 07:49 01/24/25 09:00 Temperature 36.9 C Pulse Rate 72 73 75 Respiratory Rate 20 20 Blood Pressure 121/53 L Pulse Oximetry 92 Oxygen Delivery Oxygen Flow Rate Fraction of Inspired Oxygen Intake/Output Intake/Output: Intake & Output 01/21/25 01/22/25 01/23/25 01/24/25 23:59 23:59 23:59 23:59 Intake Total 1650 1430 1540 200 Output Total 1025 950 550 500 Balance 625 480 990 -300 Meds/Results Medications: Active Medications Generic Name Dose Route Start Last Admin Trade Name Freq PRN Reason Stop Dose Admin Acetaminophen 650 mg 01/13/25 20:15 01/22/25 20:53 Acetaminophen 325 Mg Tablet PO 650 mg Q4H PRN Administration Mild Pain (1-3) or Fever Acetylcysteine 200 mg 01/21/25 14:00 01/24/25 07:15 Acetylcysteine 20% Inhal Soln 800 Mg/4 Ml Vial INHALATION 200 mg Q6HRT ENEDELIA Administration Albuterol/Ipratropium 3 ml 01/13/25 20:00 01/24/25 07:15 Ipratropium 0.5 Mg/Albuterol Sulfate 2.5 Mg Ampul.Neb 3 Ml INHALATION 3 ml Q6HRT ENEDELIA Administration Apixaban 5 mg 01/23/25 21:00 01/24/25 09:01 Apixaban 5 Mg Tablet PO 5 mg Q12HR ENEDELIA Administration Benzocaine 1 lozenge 01/14/25 00:38 Benzocaine/Menthol (*Bkc) 18 Ea Lozenge PO PRN PRN Sore Throat Carvedilol 25 mg 01/13/25 21:00 01/24/25 09:00 Carvedilol 25 Mg Tablet PO 25 mg Q12HR ENEDELIA Administration Clopidogrel Bisulfate 75 mg 01/14/25 09:00 01/24/25 09:01 Clopidogrel Bisulfate 75 Mg Tablet PO 75 mg QAM ENEDELIA Administration Felodipine 10 mg 01/14/25 09:00 01/24/25 09:01 Felodipine 5 Mg Tab Cr PO 10 mg QAM ENEDELIA Administration Guaifenesin 1,200 mg 01/14/25 09:00 01/24/25 09:00 Guaifenesin 12 Hr 600 Mg Tabcr PO 1,200 mg Q12HR ENEDELIA Administration Meropenem 1 gm in 100 mls @ 200 mls/hr 01/22/25 11:00 01/24/25 09:01 IVPB 200 mls/hr Q12HR ENEDELIA Administration Isosorbide Mononitrate 30 mg 01/14/25 09:00 01/24/25 09:01 Isosorbide Mononitrate 30 Mg Tab.Er.24h PO 30 mg DAILY ENEDELIA Administration Levothyroxine Sodium 88 mcg 01/14/25 06:30 01/24/25 05:49 Levothyroxine Sodium 88 Mcg Tablet PO 88 mcg DAILY@0630 ENEDELIA Administration Ondansetron HCl 4 mg 01/13/25 20:15 01/23/25 18:40 Ondansetron Inj 4 Mg/2 Ml Vial IV PUSH 4 mg Q6H PRN Administration Nausea And Vomiting Oxybutynin Chloride 15 mg 01/14/25 09:00 01/24/25 09:01 Oxybutynin Chloride Xl 5 Mg Tab.Er.24 PO 15 mg DAILY ENEDELIA Administration Pantoprazole Sodium 40 mg 01/14/25 09:00 01/24/25 09:01 Pantoprazole 40 Mg Tablet PO 40 mg QAM ENEDELIA Administration Polyethylene Glycol 17 gm 01/21/25 12:55 01/24/25 09:23 Polyethylene Glycol 3350 17 Gm Powd.Pack PO 17 gm QAM ENEDELIA Administration Ranolazine 500 mg 01/13/25 21:00 01/24/25 09:01 Ranolazine 500 Mg Tab.Er.12h PO 500 mg Q12HR ENEDELIA Administration Rosuvastatin Calcium 40 mg 01/14/25 09:00 01/24/25 09:00 Rosuvastatin 20 Mg Tablet PO 40 mg DAILY ENEDELIA Administration Senna 8.6 mg 01/21/25 12:55 01/22/25 20:54 Sennosides 8.6 Mg Tablet PO 8.6 mg DAILY PRN Administration Constipation Radiology Results: ITS Impressions Chest CTA 01/14/25 15:03 IMPRESSION: 1. Pulmonary embolism. 2. Bilateral basal pneumonia. 3. Trace of pericardial effusion. 4. Status post left nephrectomy and splenectomy. Prominent left adrenal gland. Physician: Jana Vieira APRN Was notified with the result of the patient at 3:24 PM on January 14, 2025 Venous Doppler Study 01/15/25 15:00 IMPRESSION: Bilateral deep vein thrombosis involving the posterior tibial and peroneal veins.. Chest X-Ray 01/22/25 09:23 IMPRESSION: Left lower lobe infiltrate with a left-sided pleural effusion. Labs Labs: Laboratory Results - last 24 hr 01/23/25 01/24/25 23:40 04:27 PT 28.1 H D INR 2.5 POC Capillary Glucose 118 H Magnesium 1.7
[2025-01-24] MEDS: SENNOSIDES 8.6 MG TABLET PO (10:12)
--- NOTE | 2025-01-24 11:22 | PCNFU ---
Nutrition Follow-Up Complete: Suboptimal po intake related to appetite as evidenced by charted intake PO intake greater than 50% of meals - Progressing with intakes 5-100%, improving the last 48 hours Goal: Pt current nutrition is Heart healthy diet with Enlive BID (350 kcal, 20 g protein each). Nutrition recommendation: No new nutrition recommendations. Continue current nutrition care plan and orders. Agree with orders Last recorded weight is 70.8 kg. Bowel Motility: No bowel movements are charted Labs Reviewed: Hgb 8.1, Hct 24.7, Alb 2.8, Na 135, BUN 23, Cre 1.21 Meds Noted: Plavix, protonix, Eliquis, Zofran Skin No skin issues: Additional Notes: Intakes are improving the last 48 hours. Continue with current nutrition care plan Monitor intake, wt, labs. follow up in 5 days.
--- NOTE | 2025-01-24 14:18 | PC.NURSE ---
1340- DR AGUILAR AT BEDSIDE. RN AND PATIENT MADE MD AWARE OF FALL. PATIENT HAS NO COMPLAINTS OF PAIN. VITALS IN CHART. PATIENT DID NOT HIT HER HEAD. PATIENT RESTING COMFORTABLY
--- NOTE | 2025-01-24 17:28 | PM.IMPN ---
Progress Note: A&P Assessment and Plan (1) Pulmonary embolism: Code(s): I26.99 - Other pulmonary embolism without acute cor pulmonale Status: Acute Assessment and Plan: 3/4 rapid response for acute hypoxia CTA showing Pulmonary embolism is seen in the branches of the right and left lower and upper lobes arteries Echo pending to check for right heart strain Patient placed on heparin drip Monitor cardiac catheterization access site for hematoma Wean oxygen to SpO2 of 90% After CT patient lost her voice however she does not have stridor will treat for possible allergy and monitor closely, she has had contrast in the past without incident (2) Influenza A: Code(s): J10.1 - Influenza due to other identified influenza virus with other respiratory manifestations Status: Acute Assessment and Plan: Guaifenesin Tamiflu Tylenol (3) Pneumonia: Code(s): J18.9 - Pneumonia, unspecified organism Status: Acute Assessment and Plan: Left lower lobe pneumonia Started on Rocephin and azithromycin Breathing treatments Incentive spirometer (4) Acute respiratory failure with hypoxia: Code(s): J96.01 - Acute respiratory failure with hypoxia Status: Acute Assessment and Plan: currently on 4 L nasal cannula, continue to wean for an O2 sat greater than 92% continue DuoNeb breathing treatments q.6 hour patient was given 1 dose of Lasix 40 mg IV while in cardiac labor relations director recovery proBNP 746 (5) Chronic obstructive pulmonary disease: Code(s): J44.9 - Chronic obstructive pulmonary disease, unspecified Status: Acute Assessment and Plan: see above plan of care likely to exacerbation On antibiotics IV Solu-Medrol x1 Oral prednisone starting tomorrow (6) Coronary artery disease: Code(s): I25.10 - Atherosclerotic heart disease of [place] coronary artery without angina pectoris Status: Acute Assessment and Plan: history of coronary artery disease with stent placement continue cardiac monitoring patient had a nuclear stress test and a PET myocardial perfusion imaging recently which were abnormal status post cardiac catheterization today with Dr. Carvalho. LAD showed 40-50% stenosis, RCA 30-40% stenosis. This was for cardiac clearance for an upcoming hernia repair surgery. cardiology primary this admission continue rosuvastatin and Plavix continue vascular checks to right radial puncture site (7) Stage 3a chronic kidney disease: Code(s): N18.31 - Chronic kidney disease, stage 3a Status: Acute Assessment and Plan: labs today showed a creatinine of 1.36, EGFR 39 baseline creatinine appears to trend between 1.17-1.22, EGFR ranging 44-46 continue to trend (8) Paroxysmal atrial fibrillation: Code(s): I48.0 - Paroxysmal atrial fibrillation Status: Acute Assessment and Plan: continue carvedilol Coumadin on hold for today due to cardiac catheterization INR 1.1 today Deferring to Cardiology 1 to restart (9) Essential hypertension: Code(s): I10 - Essential (primary) hypertension Status: Acute Assessment and Plan: blood pressure ranging 116/86 to 145/73 continue felodipine and Imdur (10) Hypothyroidism: Code(s): E03.9 - Hypothyroidism, unspecified Status: Acute Assessment and Plan: continue Synthroid last TSH was 0.543 on 12/16/2023 TSH low (11) Anemia: Code(s): D64.9 - Anemia, unspecified Status: Acute Assessment and Plan: hemoglobin 9.9 appears chronic iron 46, ferritin 65.20, vitamin B12 864 on 11/29/24 TSH was 0.543 on 12/16/2023 Folate over 20, will hold while in hospital, patient could switch to every other day (12) GERD (gastroesophageal reflux disease): Code(s): K21.9 - Gastro-esophageal reflux disease without esophagitis Status: Acute Assessment and Plan: start Protonix Plan Chest x-ray shows left lower lobe pneumonia started on antibiotics in a.m.. Patient had increasing oxygen demands overnight from 2 L to 4, however today she is progressively had higher oxygen demands and ended up having a rapid response (see critical care note for details) for hypoxia placed on on non breather CTA showed Pulmonary embolism is seen in the branches of the right and left lower and upper lobes arteries. Venous Doppler of bilateral lower extremity showed, bilateral deep vein thrombosis involving the posterior tibial and peroneal veins.. Patient also has bilateral pneumonia, patient is being treated with warfarin INR is subtherapeutic and bridge with Lovenox, we may discussed with the aerial tram operator to switch over to Eliquis and further recommendation to follow. Director Audience Marketing is agreeable to switch patient to DOAC, discus with pharmacist and started Eliquis 10mg BID for 7 days thereafter switch to 5mg BID, patient still requiring high flow oxygen secondary to influenza A, pneumonia and exacerbation of COPD. Patient is being treated with Tamiflu, prednisone, duo neb, azithromycin and ceftriaxone will continue to monitor. Patient continue to require high-flow oxygen and desatted with slight exertion, on 01/[address] Morales senior climate advisor reviewed the chart, recommended repeat ABG which did not show any hypercapnia, also extended course of Tamiflu to 10 days, today patient compelted 10 days course and DC prednisone as it is not recommended with influenza A, and started on high flow NC 12L, today patient is feeling better and oxygenation has improved, patient is lying in the bed patient is seen by senior climate advisor has escaleted abx now taking meropenem her white counts are trending down and her oxygenation is improving, as patient showed pneumonia. Subjective Date/time seen: 01/24/25 17:28 Interval history: 69 year old female with CAD with coronary stents, COPD, CKD stage 3, AAA, DVT, paroxysmal atrial fibrillation, PE, HTN, GERD, anxiety, GOUT, JANNY, migraines, hypothyroidism, PVD, former smoker who presented originally for an outpatient heart catheterization with Dr. Carvalho as a preop cardiac work up for hernia repair surgery. Hospitalist team consulted for acute respiratory failure with hypoxia secondary to flu A. Chest x-ray shows left lower lobe pneumonia started on antibiotics in a.m.. Patient had increasing oxygen demands overnight from 2 L to 4, however today she is progressively had higher oxygen demands and ended up having a rapid response (see critical care note for details) for hypoxia placed on on non breather CTA showed Pulmonary embolism is seen in the branches of the right and left lower and upper lobes arteries. Venous Doppler of bilateral lower extremity showed, bilateral deep vein thrombosis involving the posterior tibial and peroneal veins.. Patient also has bilateral pneumonia, patient is being treated with warfarin INR is subtherapeutic and bridge with Lovenox, we may discussed with the aerial tram operator to switch over to Eliquis and further recommendation to follow. Director Audience Marketing is agreeable to switch patient to DOAC, discus with pharmacist and started Eliquis 10mg BID for 7 days thereafter switch to 5mg BID, patient still requiring high flow oxygen secondary to influenza A, pneumonia and exacerbation of COPD. Patient is being treated with Tamiflu, prednisone, duo neb, azithromycin and ceftriaxone will continue to monitor. Patient continue to require high-flow oxygen and desatted with slight exertion, on 03/[address] Morales senior climate advisor reviewed the chart, recommended repeat ABG which did not show any hypercapnia, also extended course of Tamiflu to 10 days, today patient compelted 10 days course and DC prednisone as it is not recommended with influenza A, and started on high flow NC 12L, today patient is feeling better and oxygenation has improved, patient is lying in the bed patient is seen by senior climate advisor has escaleted abx now taking meropenem her white counts are trending down and her oxygenation is improving, as patient showed pneumonia. Review of Systems Review of Systems: All systems reviewed & are unremarkable except as noted in HPI and below Exam Narrative: Patient is comfortable, NAD HEENT: eyes are clear and none icteric LUNGS: Bilateral fair air entry with rhonchi and wheezing HEART: RR S1S2 ABD: BS+, Soft and nontender Lower extremities: no edema SKIN: nonjaundiced Neuro: grossly intact. Objective Data Vital Signs Vital Signs: Vital Signs - 24 hr 01/23/25 18:00 01/23/25 20:00 01/23/25 20:00 Temperature 36.7 C Pulse Rate 76 75 75 Respiratory Rate 20 Blood Pressure 122/58 L Pulse Oximetry 93 Oxygen Delivery Oxygen Flow Rate Fraction of Inspired Oxygen 01/23/25 20:15 01/23/25 20:27 01/23/25 20:40 Temperature Pulse Rate 75 74 77 Respiratory Rate 20 20 Blood Pressure Pulse Oximetry 93 Oxygen Delivery High Flow Therapy with Na Oxygen Flow Rate 30 Fraction of Inspired Oxygen 40 01/23/25 20:44 01/23/25 21:12 01/23/25 22:00 Temperature Pulse Rate 77 77 74 Respiratory Rate 20 Blood Pressure Pulse Oximetry 95 Oxygen Delivery High Flow Therapy with Na Oxygen Flow Rate 30 Fraction of Inspired Oxygen 40 01/23/25 22:00 01/24/25 00:00 01/24/25 00:00 Temperature 36.6 C Pulse Rate 75 73 Respiratory Rate 20 Blood Pressure 121/64 Pulse Oximetry 93 92 Oxygen Delivery High Flow Therapy with Na Oxygen Flow Rate 25 Fraction of Inspired Oxygen 39 01/24/25 00:30 01/24/25 02:00 01/24/25 02:22 Temperature Pulse Rate 73 74 76 Respiratory Rate 20 20 Blood Pressure Pulse Oximetry 92 Oxygen Delivery High Flow Therapy with Na Oxygen Flow Rate 30 Fraction of Inspired Oxygen 40 01/24/25 02:47 01/24/25 03:51 01/24/25 04:00 Temperature Pulse Rate 77 70 77 Respiratory Rate 20 18 Blood Pressure Pulse Oximetry 94 Oxygen Delivery High Flow Therapy with Na Oxygen Flow Rate 30 Fraction of Inspired Oxygen 40 01/24/25 04:00 01/24/25 06:00 01/24/25 07:15 Temperature 36.7 C Pulse Rate 78 73 Respiratory Rate 18 Blood Pressure 118/62 Pulse Oximetry 96 93 Oxygen Delivery High Flow Therapy with Na Oxygen Flow Rate 25 Fraction of Inspired Oxygen 39 01/24/25 07:15 01/24/25 07:41 01/24/25 07:49 Temperature 36.9 C Pulse Rate 78 72 73 Respiratory Rate 20 20 20 Blood Pressure 121/53 L Pulse Oximetry 92 Oxygen Delivery Oxygen Flow Rate Fraction of Inspired Oxygen 01/24/25 08:00 01/24/25 09:00 01/24/25 10:00 Temperature Pulse Rate 74 75 76 Respiratory Rate Blood Pressure Pulse Oximetry Oxygen Delivery Oxygen Flow Rate Fraction of Inspired Oxygen 01/24/25 12:00 01/24/25 12:00 01/24/25 12:47 Temperature 36.6 C Pulse Rate 79 83 Respiratory Rate 20 Blood Pressure 100/63 Pulse Oximetry 95 Oxygen Delivery High Flow Therapy with Na Oxygen Flow Rate 15 Fraction of Inspired Oxygen 01/24/25 13:51 01/24/25 13:58 01/24/25 14:00 Temperature 36.7 C Pulse Rate 79 79 80 Respiratory Rate 20 20 Blood Pressure 96/51 L Pulse Oximetry 95 Oxygen Delivery Oxygen Flow Rate Fraction of Inspired Oxygen 01/24/25 14:00 01/24/25 14:00 01/24/25 16:00 Temperature 36.8 C Pulse Rate 80 78 Respiratory Rate 20 20 Blood Pressure 121/47 L Pulse Oximetry 93 95 Oxygen Delivery High Flow Nasal Cannula Oxygen Flow Rate 10 Fraction of Inspired Oxygen Intake/Output Intake/Output: Intake & Output 01/21/25 01/22/25 01/23/25 01/24/25 23:59 23:59 23:59 23:59 Intake Total 1650 1430 1540 1020 Output Total 1025 950 550 500 Balance 625 480 990 520 Meds/Results Medications: Active Medications Generic Name Dose Route Start Last Admin Trade Name Freq PRN Reason Stop Dose Admin Acetaminophen 650 mg 01/13/25 20:15 01/22/25 20:53 Acetaminophen 325 Mg Tablet PO 650 mg Q4H PRN Administration Mild Pain (1-3) or Fever Acetylcysteine 200 mg 01/21/25 14:00 01/24/25 13:51 Acetylcysteine 20% Inhal Soln 800 Mg/4 Ml Vial INHALATION 200 mg Q6HRT ENEDELIA Administration Albuterol/Ipratropium 3 ml 01/13/25 20:00 01/24/25 13:51 Ipratropium 0.5 Mg/Albuterol Sulfate 2.5 Mg Ampul.Neb 3 Ml INHALATION 3 ml Q6HRT ENEDELIA Administration Apixaban 5 mg 01/23/25 21:00 01/24/25 09:01 Apixaban 5 Mg Tablet PO 5 mg Q12HR ENEDELIA Administration Benzocaine 1 lozenge 01/14/25 00:38 Benzocaine/Menthol (*Bkc) 18 Ea Lozenge PO PRN PRN Sore Throat Carvedilol 25 mg 01/13/25 21:00 01/24/25 09:00 Carvedilol 25 Mg Tablet PO 25 mg Q12HR ENEDELIA Administration Clopidogrel Bisulfate 75 mg 01/14/25 09:00 01/24/25 09:01 Clopidogrel Bisulfate 75 Mg Tablet PO 75 mg QAM ENEDELIA Administration Felodipine 10 mg 01/14/25 09:00 01/24/25 09:01 Felodipine 5 Mg Tab Cr PO 10 mg QAM ENEDELIA Administration Guaifenesin 1,200 mg 01/14/25 09:00 01/24/25 09:00 Guaifenesin 12 Hr 600 Mg Tabcr PO 1,200 mg Q12HR ENEDELIA Administration Meropenem 1 gm in 100 mls @ 200 mls/hr 01/22/25 11:00 01/24/25 09:31 IVPB Infused Q12HR ENEDELIA Infusion Isosorbide Mononitrate 30 mg 01/14/25 09:00 01/24/25 09:01 Isosorbide Mononitrate 30 Mg Tab.Er.24h PO 30 mg DAILY ENEDELIA Administration Levothyroxine Sodium 88 mcg 01/14/25 06:30 01/24/25 05:49 Levothyroxine Sodium 88 Mcg Tablet PO 88 mcg DAILY@0630 ENEDELIA Administration Ondansetron HCl 4 mg 01/13/25 20:15 01/23/25 18:40 Ondansetron Inj 4 Mg/2 Ml Vial IV PUSH 4 mg Q6H PRN Administration Nausea And Vomiting Oxybutynin Chloride 15 mg 01/14/25 09:00 01/24/25 09:01 Oxybutynin Chloride Xl 5 Mg Tab.Er.24 PO 15 mg DAILY ENEDELIA Administration Pantoprazole Sodium 40 mg 01/14/25 09:00 01/24/25 09:01 Pantoprazole 40 Mg Tablet PO 40 mg QAM ENEDELIA Administration Polyethylene Glycol 17 gm 01/21/25 12:55 01/24/25 09:23 Polyethylene Glycol 3350 17 Gm Powd.Pack PO 17 gm QAM ENEDELIA Administration Ranolazine 500 mg 01/13/25 21:00 01/24/25 09:01 Ranolazine 500 Mg Tab.Er.12h PO 500 mg Q12HR ENEDELIA Administration Rosuvastatin Calcium 40 mg 01/14/25 09:00 01/24/25 09:00 Rosuvastatin 20 Mg Tablet PO 40 mg DAILY ENEDELIA Administration Senna 8.6 mg 01/21/25 12:55 01/24/25 10:12 Sennosides 8.6 Mg Tablet PO 8.6 mg DAILY PRN Administration Constipation Radiology Results: ITS Impressions Chest CTA 01/14/25 15:03 IMPRESSION: 1. Pulmonary embolism. 2. Bilateral basal pneumonia. 3. Trace of pericardial effusion. 4. Status post left nephrectomy and splenectomy. Prominent left adrenal gland. Physician: Jana Vieira APRN Was notified with the result of the patient at 3:24 PM on January 14, 2025 Venous Doppler Study 01/15/25 15:00 IMPRESSION: Bilateral deep vein thrombosis involving the posterior tibial and peroneal veins.. Chest X-Ray 01/22/25 09:23 IMPRESSION: Left lower lobe infiltrate with a left-sided pleural effusion. Labs Labs: Laboratory Results - last 24 hr 01/23/25 01/24/25 23:40 04:27 PT 28.1 H D INR 2.5 POC Capillary Glucose 118 H Magnesium 1.7 Quality VTE Prophylaxis VTE prophylaxis: mechanical ordered
[2025-01-24 17:50] LABS: INR 2.3; Prothrombin Time 26.3 Seconds (11.1-14.7)
[2025-01-25] VITALS (21 sets, daily range): BP systolic 103–135; BP diastolic 53–65; PULSE 57–76; RESP 16–24; TEMP 36.5–37; O2SAT 93–100
[2025-01-25] MEDS: IPRATROPIUM 0.5 MG/ALBUTEROL SULFATE 2.5 MG AMPUL.NEB 3 ML INHALATION ×4 (02:39→20:04)
[2025-01-25] MEDS: ACETYLCYSTEINE 20% INHAL SOLN 800 MG/4 ML VIAL 200 MG INHALATION ×4 (02:39→20:04)
[2025-01-25 04:53] LABS: Magnesium 1.6 mg/dL (1.6-2.3)
[2025-01-25] MEDS: LEVOTHYROXINE SODIUM 88 MCG TABLET PO (06:50)
[2025-01-25] MEDS: carvediloL 25 MG TABLET PO ×2 (10:04→20:35)
[2025-01-25] MEDS: oxyBUTYnin CHLORIDE XL 5 MG TAB.ER.24 15 MG PO (10:04)
[2025-01-25] MEDS: ISOSORBIDE MONONITRATE 30 MG TAB.ER.24H PO (10:04)
[2025-01-25] MEDS: RANOLAZINE 500 MG TAB.ER.12H PO ×2 (10:04→20:36)
[2025-01-25] MEDS: guaiFENesin 12 HR 600 MG TABCR 1200 MG PO ×2 (10:05→20:36)
[2025-01-25] MEDS: CLOPIDOGREL BISULFATE 75 MG TABLET PO (10:05)
[2025-01-25] MEDS: FELODIPINE 5 MG TAB CR 10 MG PO (10:05)
[2025-01-25] MEDS: PANTOPRAZOLE 40 MG TABLET PO (10:05)
[2025-01-25] MEDS: APIXABAN 5 MG TABLET PO ×2 (10:05→20:36)
[2025-01-25] MEDS: ROSUVASTATIN 20 MG TABLET 40 MG PO (10:05)
[2025-01-25] MEDS: polyethylene glycoL 3350 17 GM POWD.PACK PO (10:06)
[2025-01-25] MEDS: MEROPENEM 1 GM/NS 100 ML 1 GM/100 ML BAG IVPB ×2 (10:06→20:35)
--- NOTE | 2025-01-25 10:43 | PM.PNPUL ---
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 She is currently receiving appropriate treatment with a direct oral anticoagulant but still requires high-flow supplemental oxygen via nasal cannula. Recent chest imaging, including a CT scan, revealed bilateral lower lobe consolidations. In the context of her acute pulmonary embolism, these consolidations are most likely indicative of atelectasis rather than pneumonia. She completed a course of ceftriaxone and Zithromax for a possible lower respiratory tract infection, and her white cell count returned to normal. However, a few days later, she developed a cough with mild sputum production and a new leukocytosis. She was started on meropenem for suspected nosocomial pneumonia, with some clinical improvement noted and a decreasing white cell count. She continues to require high-flow oxygen via nasal cannula. 01/24/25 Plan: Continue with current antibiotic regimen, aggressive pulmonary toilet, out of bed to chair. 01/25/2025: Patient tells me she continues to improve. States she is breathing 80% back to her normal. She has a cough with minimal phlegm production and at times have difficulty expectorating her phlegm. She is afebrile. When I enter the room she was on 8 L with saturations 99% and I decreased her to 5 L with saturations 95% Plan: patient is now improving. Oxygenation has improved. currently on meropenem day 4. Continue DuoNebs and Mucomyst q.6 hours. I will continue guaifenesin 1200 mg p.o. b.i.d. Continue Cornet flutter valve. Discussed with Dr. Alvarez, will follow with you. Subjective Date/time seen: 01/25/25 10:43 Interval history: 01/25/2025: Patient tells me she continues to improve. States she is breathing 80% back to her normal. She has a cough with minimal phlegm production and at times have difficulty expectorating her phlegm. She is afebrile. White blood cell count 15.7. When I enter the room she was on 8 L with saturations 99% and I decreased her to 5 L with saturations 95% Review of Systems Constitutional: Constitutional: Reports no additional constitutional complaints Eyes: Eyes: Reports no additional eye complaints ENT: Reports system reviewed and no additional complaints, except as documented Cardiovascular: Cardiovascular: Reports no additional cardiovascular complaints Respiratory: Respiratory: Reports no additional respiratory complaints Gastrointestinal: Gastrointestinal: Reports no additional gastrointestinal complaints Musculoskeletal: Musculoskeletal: Reports no additional musculoskeletal complaints Neurologic: Reports system reviewed and no additional complaints, except as documented Psychiatric: Psychiatric: Reports no additional psychiatric complaints Endocrine: Endocrine: Reports no additional endocrine complaints Hematologic/Lymphatic: Hematologic/Lymphatic: Reports no additional hematologic/lymphatic complaints Allergic/Immunologic: Allergic/Immunologic: Reports no additional allergic/immunologic complaints Exam Const: General: cooperative, healthy appearing and comfortable Orientation/consciousness: oriented to person, oriented to place and oriented to time HENMT: Head: normal to inspection Ears: hearing grossly normal bilaterally Eyes: General: appearance normal, both eyes and all related structures Neck: Neck: normal visual inspection Chest: Chest palpation & inspection: normal inspection of the chest Resp: Effort & Inspection: normal respiratory effort and able to speak in complete sentences Auscultation: no crackles, no rales, no rhonchi, no wheezes and diminished lung sounds Other: decreased breath sounds at the bases Cardio: Jugular venous distension: no JVD GI: Inspection: normal to inspection GI Palp: No abdominal tenderness Skin: General skin exam: normal color Neuro: General: oriented to person, oriented to place and oriented to time Extrem: General: normal to inspection Psych: Appearance: grossly normal Objective Data Vital Signs Vital Signs: Vital Signs - 24 hr 01/24/25 12:00 01/24/25 12:00 01/24/25 12:47 Temperature 36.6 C Pulse Rate 79 83 Respiratory Rate 20 Blood Pressure 100/63 Pulse Oximetry 95 Oxygen Delivery High Flow Therapy with Na Oxygen Flow Rate 15 01/24/25 13:51 01/24/25 13:58 01/24/25 14:00 Temperature 36.7 C Pulse Rate 79 79 80 Respiratory Rate 20 20 Blood Pressure 96/51 L Pulse Oximetry 95 Oxygen Delivery Oxygen Flow Rate 01/24/25 14:00 01/24/25 14:00 01/24/25 16:00 Temperature 36.8 C Pulse Rate 80 78 Respiratory Rate 20 20 Blood Pressure 121/47 L Pulse Oximetry 93 95 Oxygen Delivery High Flow Nasal Cannula Oxygen Flow Rate 10 01/24/25 16:00 01/24/25 16:00 01/24/25 20:00 Temperature 36.6 C Pulse Rate 75 70 Respiratory Rate 20 Blood Pressure 119/53 L Pulse Oximetry 95 98 Oxygen Delivery High Flow Nasal Cannula Oxygen Flow Rate 10 01/24/25 20:00 01/24/25 20:00 01/24/25 20:31 Temperature Pulse Rate 73 Respiratory Rate Blood Pressure Pulse Oximetry 99 98 Oxygen Delivery High Flow Nasal Cannula High Flow Nasal Cannula Oxygen Flow Rate 10 10 01/24/25 20:31 01/24/25 20:47 01/24/25 21:16 Temperature Pulse Rate 72 73 75 Respiratory Rate 16 16 Blood Pressure Pulse Oximetry Oxygen Delivery Oxygen Flow Rate 01/24/25 22:00 01/25/25 00:00 01/25/25 00:00 Temperature 36.5 C Pulse Rate 70 69 Respiratory Rate 20 Blood Pressure 126/59 L Pulse Oximetry 99 99 Oxygen Delivery High Flow Nasal Cannula Oxygen Flow Rate 10 01/25/25 00:00 01/25/25 02:00 01/25/25 02:39 Temperature Pulse Rate 68 67 71 Respiratory Rate 16 Blood Pressure Pulse Oximetry Oxygen Delivery Oxygen Flow Rate 01/25/25 02:48 01/25/25 04:00 01/25/25 04:00 Temperature 36.8 C Pulse Rate 73 57 L 72 Respiratory Rate 16 18 Blood Pressure 135/53 L Pulse Oximetry 99 Oxygen Delivery Oxygen Flow Rate 01/25/25 04:00 01/25/25 06:00 01/25/25 08:00 Temperature 37.0 C Pulse Rate 67 68 Respiratory Rate 24 H Blood Pressure 119/58 L Pulse Oximetry 100 95 Oxygen Delivery High Flow Nasal Cannula Oxygen Flow Rate 10 01/25/25 08:37 01/25/25 08:37 01/25/25 10:04 Temperature Pulse Rate 116 H 116 H 72 Respiratory Rate 20 16 Blood Pressure Pulse Oximetry 93 Oxygen Delivery High Flow Therapy with Na Oxygen Flow Rate 8 Intake/Output Intake/Output: Intake & Output 01/22/25 01/23/25 01/24/25 01/25/25 23:59 23:59 23:59 23:59 Intake Total 1430 1540 2010 730 Output Total 950 550 700 300 Balance 243 636 3823 430 Meds/Results Medications: Active Medications Generic Name Dose Route Start Last Admin Trade Name Freq PRN Reason Stop Dose Admin Acetaminophen 650 mg 01/13/25 20:15 01/22/25 20:53 Acetaminophen 325 Mg Tablet PO 650 mg Q4H PRN Administration Mild Pain (1-3) or Fever Acetylcysteine 200 mg 01/21/25 14:00 01/25/25 08:37 Acetylcysteine 20% Inhal Soln 800 Mg/4 Ml Vial INHALATION 200 mg Q6HRT ENEDELIA Administration Albuterol/Ipratropium 3 ml 01/13/25 20:00 01/25/25 08:36 Ipratropium 0.5 Mg/Albuterol Sulfate 2.5 Mg Ampul.Neb 3 Ml INHALATION 3 ml Q6HRT ENEDELIA Administration Apixaban 5 mg 01/23/25 21:00 01/25/25 10:05 Apixaban 5 Mg Tablet PO 5 mg Q12HR ENEDELIA Administration Benzocaine 1 lozenge 01/14/25 00:38 Benzocaine/Menthol (*Bkc) 18 Ea Lozenge PO PRN PRN Sore Throat Carvedilol 25 mg 01/13/25 21:00 01/25/25 10:04 Carvedilol 25 Mg Tablet PO 25 mg Q12HR ENEDELIA Administration Clopidogrel Bisulfate 75 mg 01/14/25 09:00 01/25/25 10:05 Clopidogrel Bisulfate 75 Mg Tablet PO 75 mg QAM ENEDELIA Administration Felodipine 10 mg 01/14/25 09:00 01/25/25 10:05 Felodipine 5 Mg Tab Cr PO 10 mg QAM ENEDELIA Administration Guaifenesin 1,200 mg 01/14/25 09:00 01/25/25 10:05 Guaifenesin 12 Hr 600 Mg Tabcr PO 1,200 mg Q12HR ENEDELIA Administration Meropenem 1 gm in 100 mls @ 200 mls/hr 01/22/25 11:00 01/25/25 10:06 IVPB 200 mls/hr Q12HR ENEDELIA Administration Isosorbide Mononitrate 30 mg 01/14/25 09:00 01/25/25 10:04 Isosorbide Mononitrate 30 Mg Tab.Er.24h PO 30 mg DAILY ENEDELIA Administration Levothyroxine Sodium 88 mcg 01/14/25 06:30 01/25/25 06:50 Levothyroxine Sodium 88 Mcg Tablet PO 88 mcg DAILY@0630 ENEDELIA Administration Ondansetron HCl 4 mg 01/13/25 20:15 01/23/25 18:40 Ondansetron Inj 4 Mg/2 Ml Vial IV PUSH 4 mg Q6H PRN Administration Nausea And Vomiting Oxybutynin Chloride 15 mg 01/14/25 09:00 01/25/25 10:04 Oxybutynin Chloride Xl 5 Mg Tab.Er.24 PO 15 mg DAILY ENEDELIA Administration Pantoprazole Sodium 40 mg 01/14/25 09:00 01/25/25 10:05 Pantoprazole 40 Mg Tablet PO 40 mg QAM ENEDELIA Administration Polyethylene Glycol 17 gm 01/21/25 12:55 01/25/25 10:06 Polyethylene Glycol 3350 17 Gm Powd.Pack PO 17 gm QAM ENEDELIA Administration Ranolazine 500 mg 01/13/25 21:00 01/25/25 10:04 Ranolazine 500 Mg Tab.Er.12h PO 500 mg Q12HR ENEDELIA Administration Rosuvastatin Calcium 40 mg 01/14/25 09:00 01/25/25 10:05 Rosuvastatin 20 Mg Tablet PO 40 mg DAILY ENEDELIA Administration Senna 8.6 mg 01/21/25 12:55 01/24/25 10:12 Sennosides 8.6 Mg Tablet PO 8.6 mg DAILY PRN Administration Constipation Radiology Results: ITS Impressions Chest CTA 01/14/25 15:03 IMPRESSION: 1. Pulmonary embolism. 2. Bilateral basal pneumonia. 3. Trace of pericardial effusion. 4. Status post left nephrectomy and splenectomy. Prominent left adrenal gland. Physician: Jana Vieira APRN Was notified with the result of the patient at 3:24 PM on January 14, 2025 Venous Doppler Study 01/15/25 15:00 IMPRESSION: Bilateral deep vein thrombosis involving the posterior tibial and peroneal veins.. Chest X-Ray 01/22/25 09:23 IMPRESSION: Left lower lobe infiltrate with a left-sided pleural effusion. Labs Labs: Laboratory Results - last 24 hr 01/24/25 01/25/25 17:28 04:05 PT 26.3 H INR 2.3 Magnesium 1.6
--- NOTE | 2025-01-25 14:58 | P.PNIM_ITS ---
Progress Note: A&P Assessment and Plan (1) Pulmonary embolism: Code(s): I26.99 - Other pulmonary embolism without acute cor pulmonale Status: Acute Assessment and Plan: 3/4 rapid response for acute hypoxia CTA showing Pulmonary embolism is seen in the branches of the right and left lower and upper lobes arteries Echo pending to check for right heart strain Patient placed on heparin drip Monitor cardiac catheterization access site for hematoma Wean oxygen to SpO2 of 90% After CT patient lost her voice however she does not have stridor will treat for possible allergy and monitor closely, she has had contrast in the past without incident (2) Influenza A: Code(s): J10.1 - Influenza due to other identified influenza virus with other respiratory manifestations Status: Acute Assessment and Plan: Guaifenesin Tamiflu Tylenol (3) Pneumonia: Code(s): J18.9 - Pneumonia, unspecified organism Status: Acute Assessment and Plan: Left lower lobe pneumonia Started on Rocephin and azithromycin Breathing treatments Incentive spirometer (4) Acute respiratory failure with hypoxia: Code(s): J96.01 - Acute respiratory failure with hypoxia Status: Acute Assessment and Plan: * currently on 4 L nasal cannula, continue to wean for an O2 sat greater than 92% * continue DuoNeb breathing treatments q.6 hour * patient was given 1 dose of Lasix 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 * proBNP 746 (5) Chronic obstructive pulmonary disease: Code(s): J44.9 - Chronic obstructive pulmonary disease, unspecified Status: Acute Assessment and Plan: see above plan of care likely to exacerbation On antibiotics IV Solu-Medrol x1 Oral prednisone starting tomorrow (6) Coronary artery disease: Code(s): I25.10 - Atherosclerotic heart disease of [place] coronary artery without angina pectoris Status: Acute Assessment and Plan: * history of coronary artery disease with stent placement * continue cardiac monitoring * patient had a nuclear stress test and a PET myocardial perfusion imaging recently which were abnormal * status post cardiac catheterization today with Dr. Carvalho. LAD showed 40-50% stenosis, RCA 30-40% stenosis. This was for cardiac clearance for an upcoming hernia repair surgery. * cardiology primary this admission * continue rosuvastatin and Plavix * continue vascular checks to right radial puncture site (7) Stage 3a chronic kidney disease: Code(s): N18.31 - Chronic kidney disease, stage 3a Status: Acute Assessment and Plan: * labs today showed a creatinine of 1.36, EGFR 39 * baseline creatinine appears to trend between 1.17-1.22, EGFR ranging 44-46 * continue to trend (8) Paroxysmal atrial fibrillation: Code(s): I48.0 - Paroxysmal atrial fibrillation Status: Acute Assessment and Plan: * continue carvedilol * Coumadin on hold for today due to cardiac catheterization * INR 1.1 today * Deferring to Cardiology 1 to restart (9) Essential hypertension: Code(s): I10 - Essential (primary) hypertension Status: Acute Assessment and Plan: * blood pressure ranging 116/86 to 145/73 * continue felodipine and Imdur (10) Hypothyroidism: Code(s): E03.9 - Hypothyroidism, unspecified Status: Acute Assessment and Plan: * continue Synthroid * last TSH was 0.543 on 12/16/2023 TSH low (11) Anemia: Code(s): D64.9 - Anemia, unspecified Status: Acute Assessment and Plan: * hemoglobin 9.9 * appears chronic * iron 46, ferritin 65.20, vitamin B12 864 on 11/29/24 * TSH was 0.543 on 12/16/2023 Folate over 20, will hold while in hospital, patient could switch to every other day (12) GERD (gastroesophageal reflux disease): Code(s): K21.9 - Gastro-esophageal reflux disease without esophagitis Status: Acute Assessment and Plan: * start Protonix Plan Chest x-ray shows left lower lobe pneumonia started on antibiotics in a.m.. Patient had increasing oxygen demands overnight from 2 L to 4, however today she is progressively had higher oxygen demands and ended up having a rapid response (see critical care note for details) for hypoxia placed on on non breather CTA showed Pulmonary embolism is seen in the branches of the right and left lower and upper lobes arteries. Venous Doppler of bilateral lower extremity showed, bilateral deep vein thrombosis involving the posterior tibial and peroneal veins.. Patient also has bilateral pneumonia, patient is being treated with warfarin INR is subtherapeutic and bridge with Lovenox, we may discussed with the pulp machine operator to switch over to Eliquis and further recommendation to follow. Cash Posting Clerk is agreeable to switch patient to DOAC, discus with pharmacist and started Eliquis 10mg BID for 7 days thereafter switch to 5mg BID, patient still requiring high flow oxygen secondary to influenza A, pneumonia and exacerbation of COPD. Patient is being treated with Tamiflu, prednisone, duo neb, azithromycin and ceftriaxone will continue to monitor. Patient continue to require high-flow oxygen and desatted with slight exertion, on 01/[address] Morales pneumatic riveter reviewed the chart, recommended repeat ABG which did not show any hypercapnia, also extended course of Tamiflu to 10 days, today patient compelted 10 days course and DC prednisone as it is not recommended with influenza A, and started on high flow NC 12L, today patient is seen by Dr. Morales, and agrees with current management, patient is feeling better and oxygenation has improved, patient is lying in the bed patient is seen by pneumatic riveter has escaleted abx now taking meropenem her white counts are trending down and her oxygenation is improving, as patient showed pneumonia. Subjective Date/time seen: 01/25/25 14:58 Interval history: 69 year old female with CAD with coronary stents, COPD, CKD stage 3, AAA, DVT, paroxysmal atrial fibrillation, PE, HTN, GERD, anxiety, GOUT, JANNY, migraines, hypothyroidism, PVD, former smoker who presented originally for an outpatient heart catheterization with Dr. Carvalho as a preop cardiac work up for hernia repair surgery. Hospitalist team consulted for acute respiratory failure with hypoxia secondary to flu A. Chest x-ray shows left lower lobe pneumonia started on antibiotics in a.m.. Patient had increasing oxygen demands overnight from 2 L to 4, however today she is progressively had higher oxygen demands and ended up having a rapid response (see critical care note for details) for hypoxia placed on on non breather CTA showed Pulmonary embolism is seen in the branches of the right and left lower and upper lobes arteries. Venous Doppler of bilateral lower extremity showed, bilateral deep vein thrombosis involving the posterior tibial and peroneal veins.. Patient also has bilateral pneumonia, patient is being treated with warfarin INR is subtherapeutic and bridge with Lovenox, we may discussed with the pulp machine operator to switch over to Eliquis and further recommendation to follow. Cash Posting Clerk is agreeable to switch patient to DOAC, discus with pharmacist and started Eliquis 10mg BID for 7 days thereafter switch to 5mg BID, patient still requiring high flow oxygen secondary to influenza A, pneumonia and exacerbation of COPD. Patient is being treated with Tamiflu, prednisone, duo neb, azithromycin and ceftriaxone will continue to monitor. Patient continue to require high-flow oxygen and desatted with slight exertion, on 01/[address] Morales pneumatic riveter reviewed the chart, recommended repeat ABG which d id not show any hypercapnia, also extended course of Tamiflu to 10 days, today patient compelted 10 days course and DC prednisone as it is not recommended with influenza A, and started on high flow NC 12L, today patient is seen by Dr. Morales, and agrees with current management, patient is feeling better and oxygenation has improved, patient is lying in the bed patient is seen by pneumatic riveter has escaleted abx now taking meropenem her white counts are trending down and her oxygenation is improving, as patient showed pneumonia. Review of Systems Review of Systems: All systems reviewed & are unremarkable except as noted in HPI and below Exam Narrative: Patient is comfortable, NAD HEENT: eyes are clear and none icteric LUNGS: Bilateral fair air entry with rhonchi and wheezing HEART: RR S1S2 ABD: BS+, Soft and nontender Lower extremities: no edema SKIN: nonjaundiced Neuro: grossly intact. Objective Data Vital Signs Vital Signs: Vital Signs - 24 hr 01/24/25 16:00 01/24/25 16:00 01/24/25 16:00 Temperature 36.8 C Pulse Rate 78 75 Respiratory Rate 20 Blood Pressure 121/47 L Pulse Oximetry 95 95 Oxygen Delivery High Flow Nasal Cannula Oxygen Flow Rate 10 Fraction of Inspired Oxygen 01/24/25 20:00 01/24/25 20:00 01/24/25 20:00 Temperature 36.6 C Pulse Rate 70 73 Respiratory Rate 20 Blood Pressure 119/53 L Pulse Oximetry 98 99 Oxygen Delivery High Flow Nasal Cannula Oxygen Flow Rate 10 Fraction of Inspired Oxygen 01/24/25 20:31 01/24/25 20:31 01/24/25 20:47 Temperature Pulse Rate 72 73 Respiratory Rate 16 16 Blood Pressure Pulse Oximetry 98 Oxygen Delivery High Flow Nasal Cannula Oxygen Flow Rate 10 Fraction of Inspired Oxygen 01/24/25 21:16 01/24/25 22:00 01/25/25 00:00 Temperature 36.5 C Pulse Rate 75 70 69 Respiratory Rate 20 Blood Pressure 126/59 L Pulse Oximetry 99 Oxygen Delivery Oxygen Flow Rate Fraction of Inspired Oxygen 01/25/25 00:00 01/25/25 00:00 01/25/25 02:00 Temperature Pulse Rate 68 67 Respiratory Rate Blood Pressure Pulse Oximetry 99 Oxygen Delivery High Flow Nasal Cannula Oxygen Flow Rate 10 Fraction of Inspired Oxygen 01/25/25 02:39 01/25/25 02:48 01/25/25 04:00 Temperature 36.8 C Pulse Rate 71 73 57 L Respiratory Rate 16 16 18 Blood Pressure 135/53 L Pulse Oximetry 99 Oxygen Delivery Oxygen Flow Rate Fraction of Inspired Oxygen 01/25/25 04:00 01/25/25 04:00 01/25/25 06:00 Temperature Pulse Rate 72 67 Respiratory Rate Blood Pressure Pulse Oximetry 100 Oxygen Delivery High Flow Nasal Cannula Oxygen Flow Rate 10 Fraction of Inspired Oxygen 01/25/25 08:00 01/25/25 08:00 01/25/25 08:00 Temperature 37.0 C Pulse Rate 68 72 72 Respiratory Rate 24 H 16 Blood Pressure 119/58 L Pulse Oximetry 95 93 Oxygen Delivery High Flow Therapy with Na Oxygen Flow Rate 10 Fraction of Inspired Oxygen 40 01/25/25 08:37 01/25/25 08:37 01/25/25 08:50 Temperature Pulse Rate 116 H 116 H 110 H Respiratory Rate 20 16 20 Blood Pressure Pulse Oximetry 93 Oxygen Delivery High Flow Therapy with Na Oxygen Flow Rate 8 Fraction of Inspired Oxygen 01/25/25 10:04 01/25/25 11:31 01/25/25 11:31 Temperature Pulse Rate 72 72 72 Respiratory Rate 16 Blood Pressure Pulse Oximetry 93 Oxygen Delivery High Flow Therapy with Na Oxygen Flow Rate 9 Fraction of Inspired Oxygen 01/25/25 11:50 01/25/25 14:49 01/25/25 14:49 Temperature 36.9 C Pulse Rate 74 113 H 113 H Respiratory Rate 18 20 20 Blood Pressure 123/58 L Pulse Oximetry 95 95 Oxygen Delivery High Flow Therapy with Na Oxygen Flow Rate 8 Fraction of Inspired Oxygen Intake/Output Intake/Output: Intake & Output 01/22/25 01/23/25 01/24/25 01/25/25 23:59 23:59 23:59 23:59 Intake Total 1430 1540 2010 970 Output Total 950 550 700 300 Balance 143 602 7605 670 Meds/Results Medications: Active Medications Generic Name Dose Route Start Last Admin Trade Name Freq PRN Reason Stop Dose Admin Acetaminophen 650 mg 01/13/25 20:15 01/22/25 20:53 Acetaminophen 325 Mg Tablet PO 650 mg Q4H PRN Administration Mild Pain (1-3) or Fever Acetylcysteine 200 mg 01/21/25 14:00 01/25/25 14:47 Acetylcysteine 20% Inhal Soln 800 Mg/4 Ml Vial INHALATION 200 mg Q6HRT ENEDELIA Administration Albuterol/Ipratropium 3 ml 01/13/25 20:00 01/25/25 14:47 Ipratropium 0.5 Mg/Albuterol Sulfate 2.5 Mg Ampul.Neb 3 Ml INHALATION 3 ml Q6HRT ENEDELIA Administration Apixaban 5 mg 01/23/25 21:00 01/25/25 10:05 Apixaban 5 Mg Tablet PO 5 mg Q12HR ENEDELIA Administration Benzocaine 1 lozenge 01/14/25 00:38 Benzocaine/Menthol (*Bkc) 18 Ea Lozenge PO PRN PRN Sore Throat Carvedilol 25 mg 01/13/25 21:00 01/25/25 10:04 Carvedilol 25 Mg Tablet PO 25 mg Q12HR ENEDELIA Administration Clopidogrel Bisulfate 75 mg 01/14/25 09:00 01/25/25 10:05 Clopidogrel Bisulfate 75 Mg Tablet PO 75 mg QAM ENEDELIA Administration Felodipine 10 mg 01/14/25 09:00 01/25/25 10:05 Felodipine 5 Mg Tab Cr PO 10 mg QAM ENEDELIA Administration Guaifenesin 1,200 mg 01/14/25 09:00 01/25/25 10:05 Guaifenesin 12 Hr 600 Mg Tabcr PO 1,200 mg Q12HR ENEDELIA Administration Meropenem 1 gm in 100 mls @ 200 mls/hr 01/22/25 11:00 01/25/25 10:06 IVPB 200 mls/hr Q12HR ENEDELIA Administration Isosorbide Mononitrate 30 mg 01/14/25 09:00 01/25/25 10:04 Isosorbide Mononitrate 30 Mg Tab.Er.24h PO 30 mg DAILY ENEDELIA Administration Levothyroxine Sodium 88 mcg 01/14/25 06:30 01/25/25 06:50 Levothyroxine Sodium 88 Mcg Tablet PO 88 mcg DAILY@0630 ENEDELIA Administration Ondansetron HCl 4 mg 01/13/25 20:15 01/23/25 18:40 Ondansetron Inj 4 Mg/2 Ml Vial IV PUSH 4 mg Q6H PRN Administration Nausea And Vomiting Oxybutynin Chloride 15 mg 01/14/25 09:00 01/25/25 10:04 Oxybutynin Chloride Xl 5 Mg Tab.Er.24 PO 15 mg DAILY ENEDELIA Administration Pantoprazole Sodium 40 mg 01/14/25 09:00 01/25/25 10:05 Pantoprazole 40 Mg Tablet PO 40 mg QAM ENEDELIA Administration Polyethylene Glycol 17 gm 01/21/25 12:55 01/25/25 10:06 Polyethylene Glycol 3350 17 Gm Powd.Pack PO 17 gm QAM ENEDELIA Administration Ranolazine 500 mg 01/13/25 21:00 01/25/25 10:04 Ranolazine 500 Mg Tab.Er.12h PO 500 mg Q12HR ENEDELIA Administration Rosuvastatin Calcium 40 mg 01/14/25 09:00 01/25/25 10:05 Rosuvastatin 20 Mg Tablet PO 40 mg DAILY ENEDELIA Administration Senna 8.6 mg 01/21/25 12:55 01/24/25 10:12 Sennosides 8.6 Mg Tablet PO 8.6 mg DAILY PRN Administration Constipation Radiology Results: ITS Impressions Chest CTA 01/14/25 15:03 IMPRESSION: 1. Pulmonary embolism. 2. Bilateral basal pneumonia. 3. Trace of pericardial effusion. 4. Status post left nephrectomy and splenectomy. Prominent left adrenal gland. Physician: Jana Vieira APRN Was notified with the result of the patient at 3:24 PM on January 14, 2025 Venous Doppler Study 01/15/25 15:00 IMPRESSION: Bilateral deep vein thrombosis involving the posterior tibial and peroneal veins.. Chest X-Ray 01/22/25 09:23 IMPRESSION: Left lower lobe infiltrate with a left-sided pleural effusion. Labs Labs: Laboratory Results - last 24 hr 01/24/25 01/25/25 17:28 04:05 PT 26.3 H INR 2.3 Magnesium 1.6 Quality VTE Prophylaxis VTE prophylaxis: mechanical ordered
--- NOTE | 2025-01-25 15:01 | P.PNIM_ITS ---
Progress Note: A&P Assessment and Plan (1) Pulmonary embolism: Code(s): I26.99 - Other pulmonary embolism without acute cor pulmonale Status: Acute Assessment and Plan: 3/4 rapid response for acute hypoxia CTA showing Pulmonary embolism is seen in the branches of the right and left lower and upper lobes arteries Echo pending to check for right heart strain Patient placed on heparin drip Monitor cardiac catheterization access site for hematoma Wean oxygen to SpO2 of 90% After CT patient lost her voice however she does not have stridor will treat for possible allergy and monitor closely, she has had contrast in the past without incident (2) Influenza A: Code(s): J10.1 - Influenza due to other identified influenza virus with other respiratory manifestations Status: Acute Assessment and Plan: Guaifenesin Tamiflu Tylenol (3) Pneumonia: Code(s): J18.9 - Pneumonia, unspecified organism Status: Acute Assessment and Plan: Left lower lobe pneumonia Started on Rocephin and azithromycin Breathing treatments Incentive spirometer (4) Acute respiratory failure with hypoxia: Code(s): J96.01 - Acute respiratory failure with hypoxia Status: Acute Assessment and Plan: * currently on 4 L nasal cannula, continue to wean for an O2 sat greater than 92% * continue DuoNeb breathing treatments q.6 hour * patient was given 1 dose of Lasix 40 mg IV 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 * proBNP 746 (5) Chronic obstructive pulmonary disease: Code(s): J44.9 - Chronic obstructive pulmonary disease, unspecified Status: Acute Assessment and Plan: see above plan of care likely to exacerbation On antibiotics IV Solu-Medrol x1 Oral prednisone starting tomorrow (6) Coronary artery disease: Code(s): I25.10 - Atherosclerotic heart disease of [place] coronary artery without angina pectoris Status: Acute Assessment and Plan: * history of coronary artery disease with stent placement * continue cardiac monitoring * patient had a nuclear stress test and a PET myocardial perfusion imaging recently which were abnormal * status post cardiac catheterization today with Dr. Carvalho. LAD showed 40-50% stenosis, RCA 30-40% stenosis. This was for cardiac clearance for an upcoming hernia repair surgery. * cardiology primary this admission * continue rosuvastatin and Plavix * continue vascular checks to right radial puncture site (7) Stage 3a chronic kidney disease: Code(s): N18.31 - Chronic kidney disease, stage 3a Status: Acute Assessment and Plan: * labs today showed a creatinine of 1.36, EGFR 39 * baseline creatinine appears to trend between 1.17-1.22, EGFR ranging 44-46 * continue to trend (8) Paroxysmal atrial fibrillation: Code(s): I48.0 - Paroxysmal atrial fibrillation Status: Acute Assessment and Plan: * continue carvedilol * Coumadin on hold for today due to cardiac catheterization * INR 1.1 today * Deferring to Cardiology 1 to restart (9) Essential hypertension: Code(s): I10 - Essential (primary) hypertension Status: Acute Assessment and Plan: * blood pressure ranging 116/86 to 145/73 * continue felodipine and Imdur (10) Hypothyroidism: Code(s): E03.9 - Hypothyroidism, unspecified Status: Acute Assessment and Plan: * continue Synthroid * last TSH was 0.543 on 12/16/2023 TSH low (11) Anemia: Code(s): D64.9 - Anemia, unspecified Status: Acute Assessment and Plan: * hemoglobin 9.9 * appears chronic * iron 46, ferritin 65.20, vitamin B12 864 on 11/29/24 * TSH was 0.543 on 12/16/2023 Folate over 20, will hold while in hospital, patient could switch to every other day (12) GERD (gastroesophageal reflux disease): Code(s): K21.9 - Gastro-esophageal reflux disease without esophagitis Status: Acute Assessment and Plan: * start Protonix Plan Chest x-ray shows left lower lobe pneumonia started on antibiotics in a.m.. Patient had increasing oxygen demands overnight from 2 L to 4, however today she is progressively had higher oxygen demands and ended up having a rapid response (see critical care note for details) for hypoxia placed on on non breather CTA showed Pulmonary embolism is seen in the branches of the right and left lower and upper lobes arteries. Venous Doppler of bilateral lower extremity showed, bilateral deep vein thrombosis involving the posterior tibial and peroneal veins.. Patient also has bilateral pneumonia, patient is being treated with warfarin INR is subtherapeutic and bridge with Lovenox, we may discussed with the glassie to switch over to Eliquis and further recommendation to follow. Block Cleaner is agreeable to switch patient to DOAC, discus with pharmacist and started Eliquis 10mg BID for 7 days thereafter switch to 5mg BID, patient still requiring high flow oxygen secondary to influenza A, pneumonia and exacerbation of COPD. Patient is being treated with Tamiflu, prednisone, duo neb, azithromycin and ceftriaxone will continue to monitor. Patient continue to require high-flow oxygen and desatted with slight exertion, on 01/[address] Morales engine repairer production reviewed the chart, recommended repeat ABG which did not show any hypercapnia, also extended course of Tamiflu to 10 days, today patient compelted 10 days course and DC prednisone as it is not recommended with influenza A, and started on high flow NC 12L, today patient is seen by Dr. Morales, and agrees with current management, patient is feelingmuch better and oxygenation has improved and she is on 7L O2, , patient is lying in the bed patient is seen by engine repairer production has escaleted abx now taking meropenem her white counts are trending down and her oxygenation is improving, as patient showed pneumonia. Subjective Date/time seen: 01/25/25 15:01 Interval history: 69 year old female with CAD with coronary stents, COPD, CKD stage 3, AAA, DVT, paroxysmal atrial fibrillation, PE, HTN, GERD, anxiety, GOUT, JANNY, migraines, hypothyroidism, PVD, former smoker who presented originally for an outpatient heart catheterization with Dr. Carvalho as a preop cardiac work up for hernia repair surgery. Hospitalist team consulted for acute respiratory failure with hypoxia secondary to flu A. Chest x-ray shows left lower lobe pneumonia started on antibiotics in a.m.. Patient had increasing oxygen demands overnight from 2 L to 4, however today she is progressively had higher oxygen demands and ended up having a rapid response (see critical care note for details) for hypoxia placed on on non breather CTA showed Pulmonary embolism is seen in the branches of the right and left lower and upper lobes arteries. Venous Doppler of bilateral lower extremity showed, bilateral deep vein thrombosis involving the posterior tibial and peroneal veins.. Patient also has bilateral pneumonia, patient is being treated with warfarin INR is subtherapeutic and bridge with Lovenox, we may discussed with e glassie to switch over to Eliquis and further recommendation to follow. Block Cleaner is agreeable to switch patient to DOAC, discus with pharmacist and started Eliquis 10mg BID for 7 days thereafter switch to 5mg BID, patient still requiring high flow oxygen secondary to influenza A, pneumonia and exacerbation of COPD. Patient is being treated with Tamiflu, prednisone, duo neb, azithromyc in and ceftriaxone will continue to monitor. Patient continue to require high- flow oxygen and desatted with slight exertion, on 01/[address] Morales engine repairer production reviewed the chart, recommended repeat ABG which did not show any hypercapnia, also extended course of Tamiflu to 10 days, today patient compelted 10 days course and DC prednisone as it is not recommended with influenza A, and started on high flow NC 12L, today patient is seen by Dr. Morales, and agrees with current management, patient is feelingmuch better and oxygenation has improved and she is on 7L O2, , patient is lying in the bed patient is seen by engine repairer production has escaleted abx now taking meropenem her white counts are trending down and her oxygenation is improving, as patient showed pneumonia. Review of Systems Review of Systems: All systems reviewed & are unremarkable except as noted in HPI and below Exam Narrative: Patient is comfortable, NAD HEENT: eyes are clear and none icteric LUNGS: Bilateral fair air entry with rhonchi and wheezing HEART: RR S1S2 ABD: BS+, Soft and nontender Lower extremities: no edema SKIN: nonjaundiced Neuro: grossly intact. Objective Data Vital Signs Vital Signs: Vital Signs - 24 hr 01/24/25 16:00 01/24/25 16:00 01/24/25 16:00 Temperature 36.8 C Pulse Rate 78 75 Respiratory Rate 20 Blood Pressure 121/47 L Pulse Oximetry 95 95 Oxygen Delivery High Flow Nasal Cannula Oxygen Flow Rate 10 Fraction of Inspired Oxygen 01/24/25 20:00 01/24/25 20:00 01/24/25 20:00 Temperature 36.6 C Pulse Rate 70 73 Respiratory Rate 20 Blood Pressure 119/53 L Pulse Oximetry 98 99 Oxygen Delivery High Flow Nasal Cannula Oxygen Flow Rate 10 Fraction of Inspired Oxygen 01/24/25 20:31 01/24/25 20:31 01/24/25 20:47 Temperature Pulse Rate 72 73 Respiratory Rate 16 16 Blood Pressure Pulse Oximetry 98 Oxygen Delivery High Flow Nasal Cannula Oxygen Flow Rate 10 Fraction of Inspired Oxygen 01/24/25 21:16 01/24/25 22:00 01/25/25 00:00 Temperature 36.5 C Pulse Rate 75 70 69 Respiratory Rate 20 Blood Pressure 126/59 L Pulse Oximetry 99 Oxygen Delivery Oxygen Flow Rate Fraction of Inspired Oxygen 01/25/25 00:00 01/25/25 00:00 01/25/25 02:00 Temperature Pulse Rate 68 67 Respiratory Rate Blood Pressure Pulse Oximetry 99 Oxygen Delivery High Flow Nasal Cannula Oxygen Flow Rate 10 Fraction of Inspired Oxygen 01/25/25 02:39 01/25/25 02:48 01/25/25 04:00 Temperature 36.8 C Pulse Rate 71 73 57 L Respiratory Rate 16 16 18 Blood Pressure 135/53 L Pulse Oximetry 99 Oxygen Delivery Oxygen Flow Rate Fraction of Inspired Oxygen 01/25/25 04:00 01/25/25 04:00 01/25/25 06:00 Temperature Pulse Rate 72 67 Respiratory Rate Blood Pressure Pulse Oximetry 100 Oxygen Delivery High Flow Nasal Cannula Oxygen Flow Rate 10 Fraction of Inspired Oxygen 01/25/25 08:00 01/25/25 08:00 01/25/25 08:00 Temperature 37.0 C Pulse Rate 68 72 72 Respiratory Rate 24 H 16 Blood Pressure 119/58 L Pulse Oximetry 95 93 Oxygen Delivery High Flow Therapy with Na Oxygen Flow Rate 10 Fraction of Inspired Oxygen 40 01/25/25 08:37 01/25/25 08:37 01/25/25 08:50 Temperature Pulse Rate 116 H 76 75 Respiratory Rate 20 16 20 Blood Pressure Pulse Oximetry 93 Oxygen Delivery High Flow Therapy with Na Oxygen Flow Rate 8 Fraction of Inspired Oxygen 01/25/25 10:04 01/25/25 11:31 01/25/25 11:31 Temperature Pulse Rate 72 72 72 Respiratory Rate 16 Blood Pressure Pulse Oximetry 93 Oxygen Delivery High Flow Therapy with Na Oxygen Flow Rate 9 Fraction of Inspired Oxygen 01/25/25 11:50 01/25/25 14:49 01/25/25 14:49 Temperature 36.9 C Pulse Rate 74 113 H 70 Respiratory Rate 18 20 20 Blood Pressure 123/58 L Pulse Oximetry 95 95 Oxygen Delivery High Flow Therapy with Na Oxygen Flow Rate 8 Fraction of Inspired Oxygen 01/25/25 14:59 Temperature Pulse Rate 74 Respiratory Rate 20 Blood Pressure Pulse Oximetry Oxygen Delivery Oxygen Flow Rate Fraction of Inspired Oxygen Intake/Output Intake/Output: Intake & Output 01/22/25 01/23/25 01/24/25 01/25/25 23:59 23:59 23:59 23:59 Intake Total 1430 1540 2010 970 Output Total 950 550 700 300 Balance 095 073 5505 670 Meds/Results Medications: Active Medications Generic Name Dose Route Start Last Admin Trade Name Freq PRN Reason Stop Dose Admin Acetaminophen 650 mg 01/13/25 20:15 01/22/25 20:53 Acetaminophen 325 Mg Tablet PO 650 mg Q4H PRN Administration Mild Pain (1-3) or Fever Acetylcysteine 200 mg 01/21/25 14:00 01/25/25 14:47 Acetylcysteine 20% Inhal Soln 800 Mg/4 Ml Vial INHALATION 200 mg Q6HRT ENEDELIA Administration Albuterol/Ipratropium 3 ml 01/13/25 20:00 01/25/25 14:47 Ipratropium 0.5 Mg/Albuterol Sulfate 2.5 Mg Ampul.Neb 3 Ml INHALATION 3 ml Q6HRT ENEDELIA Administration Apixaban 5 mg 01/23/25 21:00 01/25/25 10:05 Apixaban 5 Mg Tablet PO 5 mg Q12HR ENEDELIA Administration Benzocaine 1 lozenge 01/14/25 00:38 Benzocaine/Menthol (*Bkc) 18 Ea Lozenge PO PRN PRN Sore Throat Carvedilol 25 mg 01/13/25 21:00 01/25/25 10:04 Carvedilol 25 Mg Tablet PO 25 mg Q12HR ENEDELIA Administration Clopidogrel Bisulfate 75 mg 01/14/25 09:00 01/25/25 10:05 Clopidogrel Bisulfate 75 Mg Tablet PO 75 mg QAM ENEDELIA Administration Felodipine 10 mg 01/14/25 09:00 01/25/25 10:05 Felodipine 5 Mg Tab Cr PO 10 mg QAM ENEDELIA Administration Guaifenesin 1,200 mg 01/14/25 09:00 01/25/25 10:05 Guaifenesin 12 Hr 600 Mg Tabcr PO 1,200 mg Q12HR ENEDELIA Administration Meropenem 1 gm in 100 mls @ 200 mls/hr 01/22/25 11:00 01/25/25 10:06 IVPB 200 mls/hr Q12HR ENEDELIA Administration Isosorbide Mononitrate 30 mg 01/14/25 09:00 01/25/25 10:04 Isosorbide Mononitrate 30 Mg Tab.Er.24h PO 30 mg DAILY ENEDELIA Administration Levothyroxine Sodium 88 mcg 01/14/25 06:30 01/25/25 06:50 Levothyroxine Sodium 88 Mcg Tablet PO 88 mcg DAILY@0630 ENEDELIA Administration Ondansetron HCl 4 mg 01/13/25 20:15 01/23/25 18:40 Ondansetron Inj 4 Mg/2 Ml Vial IV PUSH 4 mg Q6H PRN Administration Nausea And Vomiting Oxybutynin Chloride 15 mg 01/14/25 09:00 01/25/25 10:04 Oxybutynin Chloride Xl 5 Mg Tab.Er.24 PO 15 mg DAILY ENEDELIA Administration Pantoprazole Sodium 40 mg 01/14/25 09:00 01/25/25 10:05 Pantoprazole 40 Mg Tablet PO 40 mg QAM ENEDELIA Administration Polyethylene Glycol 17 gm 01/21/25 12:55 01/25/25 10:06 Polyethylene Glycol 3350 17 Gm Powd.Pack PO 17 gm QAM ENEDELIA Administration Ranolazine 500 mg 01/13/25 21:00 01/25/25 10:04 Ranolazine 500 Mg Tab.Er.12h PO 500 mg Q12HR ENEDELIA Administration Rosuvastatin Calcium 40 mg 01/14/25 09:00 01/25/25 10:05 Rosuvastatin 20 Mg Tablet PO 40 mg DAILY ENEDELIA Administration Senna 8.6 mg 01/21/25 12:55 01/24/25 10:12 Sennosides 8.6 Mg Tablet PO 8.6 mg DAILY PRN Administration Constipation Radiology Results: ITS Impressions Chest CTA 01/14/25 15:03 IMPRESSION: 1. Pulmonary embolism. 2. Bilateral basal pneumonia. 3. Trace of pericardial effusion. 4. Status post left nephrectomy and splenectomy. Prominent left adrenal gland. Physician: Jana Vieira APRN Was notified with the result of the patient at 3:24 PM on January 14, 2025 Venous Doppler Study 01/15/25 15:00 IMPRESSION: Bilateral deep vein thrombosis involving the posterior tibial and peroneal veins .. Chest X-Ray 01/22/25 09:23 IMPRESSION: Left lower lobe infiltrate with a left-sided pleural effusion. Labs Labs: Laboratory Results - last 24 hr 01/24/25 01/25/25 17:28 04:05 PT 26.3 H INR 2.3 Magnesium 1.6 Quality VTE Prophylaxis VTE prophylaxis: mechanical ordered
[2025-01-26] VITALS (27 sets, daily range): BP systolic 114–130; BP diastolic 52–61; PULSE 67–100; RESP 16–21; TEMP 36.3–36.8; O2SAT 91–98
[2025-01-26] MEDS: IPRATROPIUM 0.5 MG/ALBUTEROL SULFATE 2.5 MG AMPUL.NEB 3 ML INHALATION ×4 (02:11→20:34)
[2025-01-26] MEDS: ACETYLCYSTEINE 20% INHAL SOLN 800 MG/4 ML VIAL 200 MG INHALATION ×4 (02:11→20:34)
[2025-01-26 04:48] LABS: Magnesium 1.6 mg/dL (1.6-2.3)
[2025-01-26] MEDS: LEVOTHYROXINE SODIUM 88 MCG TABLET PO (05:36)
[2025-01-26 08:09] LABS: Basophils Percent Auto 0.1 % (0.2-1.2); Eosinophils Percent Auto 0.1 % (0-4.4); Hematocrit 25.6 % (37.0-47.0); Hemoglobin 8.2 g/dL (12.0-15.0); Immature Granulocyte Absolute 0.14 K/mm3 (0.00-0.031); Immature Granulocyte Percent A 1.8 % (0-0.5); Lymphocytes Absolute Auto 1.06 K/mm3 (0.9-3.2); Lymphocytes Percent Auto 13.4 % (18.3-44.2); Mean Corpuscular Hemoglobin 30.9 pg (26-34); Mean Corpuscular Volume 96.6 fl (80-100); Mean Platelet Volume 10.3 fl (7.4-10.4); Monocytes Absolute Auto 0.6 K/mm3 (0.1-0.6); Monocytes Percent Auto 7.8 % (2.6-8.5); Neutrophils Absolute Auto 6.1 K/mm3 (1.3-6.7); Neutrophils Percent Auto 76.8 % (45.5-73.1); Platelet Count Result 400 k/mm3 (150-375); Red Blood Count 2.65 M/mm3 (4.2-5.4); Red Cell Distribution Width 18.2 % (11.5-14.5); White Blood Count 7.9 K/mm3 (4.5-10.0)
[2025-01-26 08:15] LABS: Alanine Aminotransferase 120 U/L (6-35); Albumin Level 2.6 g/dL (3.5-5.1); Alkaline Phosphatase 153 U/L (38-126); Anion Gap 8 mmol/L (4-12); Aspartate Amino Transferase 83 U/L (14-36); Bilirubin,Total 0.3 mg/dL (0.2-1.3); Blood Urea Nitrogen 16 mg/dL (7-17); Calcium 9.1 mg/dL (8.4-10.2); Carbon Dioxide 23 mmol/L (22-30); Chloride 106 mmol/L (98-107); Estimated CRCL calculation 42 ml/min; Estimated Glomerular Filt Rate 53; Glucose 93 mg/dL (65-110); Potassium 4.2 mmol/L (3.4-5.0); Sodium 137 mmol/L (137-145)
[2025-01-26] MEDS: CLOPIDOGREL BISULFATE 75 MG TABLET PO (09:20)
[2025-01-26] MEDS: ISOSORBIDE MONONITRATE 30 MG TAB.ER.24H PO (09:20)
[2025-01-26] MEDS: oxyBUTYnin CHLORIDE XL 5 MG TAB.ER.24 15 MG PO (09:20)
[2025-01-26] MEDS: carvediloL 25 MG TABLET PO ×2 (09:20→21:04)
[2025-01-26] MEDS: RANOLAZINE 500 MG TAB.ER.12H PO ×2 (09:20→21:04)
[2025-01-26] MEDS: guaiFENesin 12 HR 600 MG TABCR 1200 MG PO ×2 (09:21→21:05)
[2025-01-26] MEDS: FELODIPINE 5 MG TAB CR 10 MG PO (09:21)
[2025-01-26] MEDS: MEROPENEM 1 GM/NS 100 ML 1 GM/100 ML BAG IVPB ×2 (09:22→21:05)
[2025-01-26] MEDS: PANTOPRAZOLE 40 MG TABLET PO (09:22)
[2025-01-26] MEDS: polyethylene glycoL 3350 17 GM POWD.PACK PO (09:23)
[2025-01-26] MEDS: ROSUVASTATIN 20 MG TABLET 40 MG PO (09:23)
[2025-01-26] MEDS: APIXABAN 5 MG TABLET PO ×2 (09:26→21:05)
--- NOTE | 2025-01-26 12:01 | PM.PNPUL ---
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 She is currently receiving appropriate treatment with a direct oral anticoagulant but still requires high-flow supplemental oxygen via nasal cannula. Recent chest imaging, including a CT scan, revealed bilateral lower lobe consolidations. In the context of her acute pulmonary embolism, these consolidations are most likely indicative of atelectasis rather than pneumonia. She completed a course of ceftriaxone and Zithromax for a possible lower respiratory tract infection, and her white cell count returned to normal. However, a few days later, she developed a cough with mild sputum production and a new leukocytosis. She was started on meropenem for suspected nosocomial pneumonia, with some clinical improvement noted and a decreasing white cell count. She continues to require high-flow oxygen via nasal cannula. 01/24/25 Plan: Continue with current antibiotic regimen, aggressive pulmonary toilet, out of bed to chair. 01/25/2025: Patient tells me she continues to improve. States she is breathing 80% back to her normal. She has a cough with minimal phlegm production and at times have difficulty expectorating her phlegm. She is afebrile. When I enter the room she was on 8 L with saturations 99% and I decreased her to 5 L with saturations 95% Plan: patient is now improving. Oxygenation has improved. currently on meropenem day 4. Continue DuoNebs and Mucomyst q.6 hours. I will continue guaifenesin 1200 mg p.o. b.i.d. Continue Cornet flutter valve. 01/26/2025: Patient tells me he is breathing 100% back to his normal. He denies cough or phlegm production. His white blood cell count is 12.2, his creatinine is 1.28. He has no wheezing on exam. Patient was on room air with saturations 95%. Patient had an overnight oximetry on 4 L with recording duration of 4 hours and 15 minutes. Average saturation 94%. Low saturation 87%. Time with saturation less than or equal to 88% was 1 minute. Oxygen desaturation index 5.7. she was requesting to go home today. Plan: Patient continues to improve and is on meropenem day 5, I will continue DuoNebs and the Mucomyst. Will continue guaifenesin and Cornet flutter valve. I will check a chest x-ray on 01/27. a perform an overnight oximetry on room air to determine if she qualifies for oxygen at night. Discussed with Dr. Alvarez, will follow with you. Subjective Date/time seen: 01/26/25 12:01 Interval history: 01/25/2025: Patient tells me she continues to improve. States she is breathing 80% back to her normal. She has a cough with minimal phlegm production and at times have difficulty expectorating her phlegm. She is afebrile. White blood cell count 15.7. When I enter the room she was on 8 L with saturations 99% and I decreased her to 5 L with saturations 95%. 01/26/2025: Patient tells me she continues to improve and is breathing 100% back to her normal. Her cough is better. She has no phlegm and no hemoptysis. She has no wheezing. White blood cell count 7.9, creatinine 1.04. She is afebrile. Currently the patient is on 3 L nasal cannula saturations 96%. Review of Systems Review of Systems: All systems reviewed & are unremarkable except as noted in HPI and below (HPI and below) Constitutional: Constitutional: Reports no additional constitutional complaints Eyes: Eyes: Reports no additional eye complaints ENT: Reports system reviewed and no additional complaints, except as documented Cardiovascular: Cardiovascular: Reports no additional cardiovascular complaints Respiratory: Respiratory: Reports no additional respiratory complaints Gastrointestinal: Gastrointestinal: Reports no additional gastrointestinal complaints Musculoskeletal: Musculoskeletal: Reports no additional musculoskeletal complaints Neurologic: Reports system reviewed and no additional complaints, except as documented Psychiatric: Psychiatric: Reports no additional psychiatric complaints Endocrine: Endocrine: Reports no additional endocrine complaints Hematologic/Lymphatic: Hematologic/Lymphatic: Reports no additional hematologic/lymphatic complaints Allergic/Immunologic: Allergic/Immunologic: Reports no additional allergic/immunologic complaints Exam Const: General: cooperative, healthy appearing and comfortable Orientation/consciousness: oriented to person, oriented to place and oriented to time HENMT: Head: normal to inspection Ears: hearing grossly normal bilaterally Eyes: General: appearance normal, both eyes and all related structures Neck: Neck: normal visual inspection Chest: Chest palpation & inspection: normal inspection of the chest Resp: Effort & Inspection: normal respiratory effort and able to speak in complete sentences Auscultation: no crackles, no rales, no rhonchi, no wheezes and diminished lung sounds Other: decreased breath sounds at the L base Cardio: Jugular venous distension: no JVD GI: Inspection: normal to inspection Skin: General skin exam: normal color Neuro: General: oriented to person, oriented to place and oriented to time Extrem: General: normal to inspection Psych: Appearance: grossly normal Objective Data Vital Signs Vital Signs: Vital Signs - 24 hr 01/25/25 14:49 01/25/25 14:49 01/25/25 14:59 Temperature Pulse Rate 70 70 74 Respiratory Rate 20 20 20 Blood Pressure Pulse Oximetry 95 Oxygen Delivery High Flow Nasal Cannula Oxygen Flow Rate 8 Fraction of Inspired Oxygen 01/25/25 15:57 01/25/25 15:57 01/25/25 15:57 Temperature 36.8 C Pulse Rate 75 74 74 Respiratory Rate 18 20 Blood Pressure 103/65 Pulse Oximetry 96 95 Oxygen Delivery High Flow Nasal Cannula Oxygen Flow Rate 5 Fraction of Inspired Oxygen 01/25/25 18:00 01/25/25 20:00 01/25/25 20:00 Temperature 36.8 C Pulse Rate 75 71 Respiratory Rate 20 Blood Pressure 113/53 L Pulse Oximetry 95 95 Oxygen Delivery High Flow Nasal Cannula Oxygen Flow Rate 5 Fraction of Inspired Oxygen 01/25/25 20:00 01/25/25 20:05 01/25/25 20:22 Temperature Pulse Rate 73 76 76 Respiratory Rate 20 20 Blood Pressure Pulse Oximetry 95 Oxygen Delivery High Flow Nasal Cannula Oxygen Flow Rate 5 Fraction of Inspired Oxygen 01/25/25 20:22 01/25/25 20:35 01/25/25 22:00 Temperature Pulse Rate 76 75 72 Respiratory Rate 20 Blood Pressure Pulse Oximetry Oxygen Delivery Oxygen Flow Rate Fraction of Inspired Oxygen 01/26/25 00:00 01/26/25 00:00 01/26/25 00:00 Temperature 36.8 C Pulse Rate 73 79 Respiratory Rate 16 Blood Pressure 119/52 L Pulse Oximetry 96 96 Oxygen Delivery High Flow Nasal Cannula Oxygen Flow Rate 5 Fraction of Inspired Oxygen 01/26/25 02:00 01/26/25 02:11 01/26/25 02:30 Temperature Pulse Rate 74 77 77 Respiratory Rate 20 20 Blood Pressure Pulse Oximetry Oxygen Delivery Oxygen Flow Rate Fraction of Inspired Oxygen 01/26/25 04:00 01/26/25 04:00 01/26/25 04:00 Temperature 36.7 C Pulse Rate 71 72 Respiratory Rate 16 Blood Pressure 120/52 L Pulse Oximetry 95 95 Oxygen Delivery High Flow Nasal Cannula Oxygen Flow Rate 5 Fraction of Inspired Oxygen 01/26/25 06:00 01/26/25 08:00 01/26/25 08:00 Temperature Pulse Rate 74 100 79 Respiratory Rate 20 Blood Pressure Pulse Oximetry 97 Oxygen Delivery High Flow Nasal Cannula Oxygen Flow Rate 3 Fraction of Inspired Oxygen 01/26/25 08:14 01/26/25 08:35 01/26/25 08:35 Temperature 36.3 C L Pulse Rate 69 77 Respiratory Rate 18 20 Blood Pressure 114/61 Pulse Oximetry 98 97 Oxygen Delivery High Flow Nasal Cannula Oxygen Flow Rate 5 Fraction of Inspired Oxygen 40 01/26/25 08:47 01/26/25 09:20 01/26/25 10:00 Temperature Pulse Rate 75 100 85 Respiratory Rate 20 Blood Pressure Pulse Oximetry Oxygen Delivery Oxygen Flow Rate Fraction of Inspired Oxygen 01/26/25 11:08 01/26/25 11:08 01/26/25 11:53 Temperature 36.4 C L Pulse Rate 87 85 74 Respiratory Rate 20 21 H Blood Pressure 116/54 L Pulse Oximetry 97 96 Oxygen Delivery High Flow Nasal Cannula Oxygen Flow Rate 3 Fraction of Inspired Oxygen Intake/Output Intake/Output: Intake & Output 01/23/25 01/24/25 01/25/25 01/26/25 23:59 23:59 23:59 23:59 Intake Total 1540 2010 1410 370 Output Total 550 700 800 500 Balance 990 1310 610 -130 Meds/Results Medications: Active Medications Generic Name Dose Route Start Last Admin Trade Name Freq PRN Reason Stop Dose Admin Acetaminophen 650 mg 01/13/25 20:15 01/22/25 20:53 Acetaminophen 325 Mg Tablet PO 650 mg Q4H PRN Administration Mild Pain (1-3) or Fever Acetylcysteine 200 mg 01/21/25 14:00 01/26/25 08:35 Acetylcysteine 20% Inhal Soln 800 Mg/4 Ml Vial INHALATION 200 mg Q6HRT ENEDELIA Administration Albuterol/Ipratropium 3 ml 01/13/25 20:00 01/26/25 08:35 Ipratropium 0.5 Mg/Albuterol Sulfate 2.5 Mg Ampul.Neb 3 Ml INHALATION 3 ml Q6HRT ENEDELIA Administration Apixaban 5 mg 01/23/25 21:00 01/26/25 09:26 Apixaban 5 Mg Tablet PO 5 mg Q12HR ENEDELIA Administration Benzocaine 1 lozenge 01/14/25 00:38 Benzocaine/Menthol (*Bkc) 18 Ea Lozenge PO PRN PRN Sore Throat Carvedilol 25 mg 01/13/25 21:00 01/26/25 09:20 Carvedilol 25 Mg Tablet PO 25 mg Q12HR ENEDELIA Administration Clopidogrel Bisulfate 75 mg 01/14/25 09:00 01/26/25 09:20 Clopidogrel Bisulfate 75 Mg Tablet PO 75 mg QAM ENEDELIA Administration Felodipine 10 mg 01/14/25 09:00 01/26/25 09:21 Felodipine 5 Mg Tab Cr PO 10 mg QAM ENEDELIA Administration Guaifenesin 1,200 mg 01/14/25 09:00 01/26/25 09:21 Guaifenesin 12 Hr 600 Mg Tabcr PO 1,200 mg Q12HR ENEDELIA Administration Meropenem 1 gm in 100 mls @ 200 mls/hr 01/22/25 11:00 01/26/25 09:22 IVPB 200 mls/hr Q12HR ENEDELIA Administration Isosorbide Mononitrate 30 mg 01/14/25 09:00 01/26/25 09:20 Isosorbide Mononitrate 30 Mg Tab.Er.24h PO 30 mg DAILY ENEDELIA Administration Levothyroxine Sodium 88 mcg 01/14/25 06:30 01/26/25 05:36 Levothyroxine Sodium 88 Mcg Tablet PO 88 mcg DAILY@0630 ENEDELIA Administration Ondansetron HCl 4 mg 01/13/25 20:15 01/23/25 18:40 Ondansetron Inj 4 Mg/2 Ml Vial IV PUSH 4 mg Q6H PRN Administration Nausea And Vomiting Oxybutynin Chloride 15 mg 01/14/25 09:00 01/26/25 09:20 Oxybutynin Chloride Xl 5 Mg Tab.Er.24 PO 15 mg DAILY ENEDELIA Administration Pantoprazole Sodium 40 mg 01/14/25 09:00 01/26/25 09:22 Pantoprazole 40 Mg Tablet PO 40 mg QAM ENEDELIA Administration Polyethylene Glycol 17 gm 01/21/25 12:55 01/26/25 09:23 Polyethylene Glycol 3350 17 Gm Powd.Pack PO 17 gm QAM ENEDELIA Administration Ranolazine 500 mg 01/13/25 21:00 01/26/25 09:20 Ranolazine 500 Mg Tab.Er.12h PO 500 mg Q12HR ENEDELIA Administration Rosuvastatin Calcium 40 mg 01/14/25 09:00 01/26/25 09:23 Rosuvastatin 20 Mg Tablet PO 40 mg DAILY ENEDELIA Administration Senna 8.6 mg 01/21/25 12:55 01/24/25 10:12 Sennosides 8.6 Mg Tablet PO 8.6 mg DAILY PRN Administration Constipation Radiology Results: ITS Impressions Chest CTA 01/14/25 15:03 IMPRESSION: 1. Pulmonary embolism. 2. Bilateral basal pneumonia. 3. Trace of pericardial effusion. 4. Status post left nephrectomy and splenectomy. Prominent left adrenal gland. Physician: Jana Vieira APRN Was notified with the result of the patient at 3:24 PM on January 14, 2025 Venous Doppler Study 01/15/25 15:00 IMPRESSION: Bilateral deep vein thrombosis involving the posterior tibial and peroneal veins.. Chest X-Ray 01/22/25 09:23 IMPRESSION: Left lower lobe infiltrate with a left-sided pleural effusion. Labs Labs: Laboratory Results - last 24 hr 01/26/25 04:10 WBC 7.9 RBC 2.65 L Hgb 8.2 L Hct 25.6 L MCV 96.6 MCH 30.9 MCHC 32.0 RDW 18.2 H Plt Count 400 H MPV 10.3 Immature Gran % (Auto) 1.8 H Neut % (Auto) 76.8 H Lymph % (Auto) 13.4 L Hardin % (Auto) 7.8 Eos % (Auto) 0.1 Baso % (Auto) 0.1 L Lymph # (Auto) 1.06 Hardin # (Auto) 0.6 Eos # (Auto) 0.0 Baso # (Auto) 0.0 Abs Immat Gran (auto) 0.14 H Absolute Neuts (auto) 6.1 Absolute Nucleated RBC 0.000 Nucleated RBC % 0.0 Sodium 137 Potassium 4.2 Chloride 106 Carbon Dioxide 23 Anion Gap 8 BUN 16 Creatinine 1.04 H Estim Creat Clear Calc 42 Estimated GFR 53 L Glucose 93 Calcium 9.1 Magnesium 1.6 Total Bilirubin 0.3 AST 83 H ALT 120 H Alkaline Phosphatase 153 H Total Protein 7.0 Albumin 2.6 L
--- NOTE | 2025-01-26 16:16 | P.PNIM_ITS ---
Progress Note: A&P Assessment and Plan (1) Pulmonary embolism: Code(s): I26.99 - Other pulmonary embolism without acute cor pulmonale Status: Acute Assessment and Plan: 3/4 rapid response for acute hypoxia CTA showing Pulmonary embolism is seen in the branches of the right and left lower and upper lobes arteries Echo pending to check for right heart strain Patient placed on heparin drip Monitor cardiac catheterization access site for hematoma Wean oxygen to SpO2 of 90% After CT patient lost her voice however she does not have stridor will treat for possible allergy and monitor closely, she has had contrast in the past without incident (2) Influenza A: Code(s): J10.1 - Influenza due to other identified influenza virus with other respiratory manifestations Status: Acute Assessment and Plan: Guaifenesin Tamiflu Tylenol (3) Pneumonia: Code(s): J18.9 - Pneumonia, unspecified organism Status: Acute Assessment and Plan: Left lower lobe pneumonia Started on Rocephin and azithromycin Breathing treatments Incentive spirometer (4) Acute respiratory failure with hypoxia: Code(s): J96.01 - Acute respiratory failure with hypoxia Status: Acute Assessment and Plan: * currently on 4 L nasal cannula, continue to wean for an O2 sat greater than 92% * continue DuoNeb breathing treatments q.6 hour * patient was given 1 dose of Lasix 40 mg IV while in [facility] * proBNP 746 (5) Chronic obstructive pulmonary disease: Code(s): J44.9 - Chronic obstructive pulmonary disease, unspecified Status: Acute Assessment and Plan: see above plan of care likely to exacerbation On antibiotics IV Solu-Medrol x1 Oral prednisone starting tomorrow (6) Coronary artery disease: Code(s): I25.10 - Atherosclerotic heart disease of [place] coronary artery without angina pectoris Status: Acute Assessment and Plan: * history of coronary artery disease with stent placement * continue cardiac monitoring * patient had a nuclear stress test and a PET myocardial perfusion imaging recently which were abnormal * status post cardiac catheterization today with Dr. Carvalho. LAD showed 40-50% stenosis, RCA 30-40% stenosis. This was for cardiac clearance for an upcoming hernia repair surgery. * cardiology primary this admission * continue rosuvastatin and Plavix * continue vascular checks to right radial puncture site (7) Stage 3a chronic kidney disease: Code(s): N18.31 - Chronic kidney disease, stage 3a Status: Acute Assessment and Plan: * labs today showed a creatinine of 1.36, EGFR 39 * baseline creatinine appears to trend between 1.17-1.22, EGFR ranging 44-46 * continue to trend (8) Paroxysmal atrial fibrillation: Code(s): I48.0 - Paroxysmal atrial fibrillation Status: Acute Assessment and Plan: * continue carvedilol * Coumadin on hold for today due to cardiac catheterization * INR 1.1 today * Deferring to Cardiology 1 to restart (9) Essential hypertension: Code(s): I10 - Essential (primary) hypertension Status: Acute Assessment and Plan: * blood pressure ranging 116/86 to 145/73 * continue felodipine and Imdur (10) Hypothyroidism: Code(s): E03.9 - Hypothyroidism, unspecified Status: Acute Assessment and Plan: * continue Synthroid * last TSH was 0.543 on 12/16/2023 TSH low (11) Anemia: Code(s): D64.9 - Anemia, unspecified Status: Acute Assessment and Plan: * hemoglobin 9.9 * appears chronic * iron 46, ferritin 65.20, vitamin B12 864 on 11/29/24 * TSH was 0.543 on 12/16/2023 Folate over 20, will hold while in hospital, patient could switch to every other day (12) GERD (gastroesophageal reflux disease): Code(s): K21.9 - Gastro-esophageal reflux disease without esophagitis Status: Acute Assessment and Plan: * start Protonix Plan Chest x-ray shows left lower lobe pneumonia started on antibiotics in a.m.. Patient had increasing oxygen demands overnight from 2 L to 4, however today she is progressively had higher oxygen demands and ended up having a rapid response (see critical care note for details) for hypoxia placed on on non breather CTA showed Pulmonary embolism is seen in the branches of the right and left lower and upper lobes arteries. Venous Doppler of bilateral lower extremity showed, bilateral deep vein thrombosis involving the posterior tibial and peroneal veins.. Patient also has bilateral pneumonia, patient is being treated with warfarin INR is subtherapeutic and bridge with Lovenox, we may discussed with the pmo consultant to switch over to Eliquis and further recommendation to follow. Straightedge Worker is agreeable to switch patient to DOAC, discus with pharmacist and started Eliquis 10mg BID for 7 days thereafter switch to 5mg BID, patient still requiring high flow oxygen secondary to influenza A, pneumonia and exacerbation of COPD. Patient is being treated with Tamiflu, prednisone, duo neb, azithromycin and ceftriaxone will continue to monitor. Patient continue to require high-flow oxygen and desatted with slight exertion, on 01/[address] Morales membership assistant reviewed the chart, recommended repeat ABG which did not show any hypercapnia, also extended course of Tamiflu to 10 days, today patient compelted 10 days course and DC prednisone as it is not recommended with influenza A, and started on high flow NC 12L, today patient is seen by Dr. Morales, and agrees with current management, patient is feelingmuch better and oxygenation has improved and today patient is on 3L NC, Dr Morales has ordered overnight Apnea Link, patient is lying in the bed patient is seen by membership assistant had escaleted abx now taking meropenem her white counts are now close to normal, and her oxygenation is improving, as patient showed pneumonia. plan is to discharge patient tomorrow. Subjective Date/time seen: 01/26/25 16:16 Interval history: 69 year old female with CAD with coronary stents, COPD, CKD stage 3, AAA, DVT, paroxysmal atrial fibrillation, PE, HTN, GERD, anxiety, GOUT, JANNY, migraines, hypothyroidism, PVD, former smoker who presented originally for an outpatient heart catheterization with Dr. Carvalho as a preop cardiac work up for hernia repair surgery. Hospitalist team consulted for acute respiratory failure with hypoxia secondary to flu A. Chest x-ray shows left lower lobe pneumonia started on antibiotics in a.m.. Patient had increasing oxygen demands overnight from 2 L to 4, however today she is progressively had higher oxygen demands and ended up having a rapid response (see critical care note for details) for hypoxia placed on on non breather CTA showed Pulmonary embolism is seen in the branches of the right and left lower and upper lobes arteries. Venous Doppler of bilateral lower extremity showed, bilateral deep vein thrombosis involving the posterior tibial and peroneal veins.. Patient also has bilateral pneumonia, patient is being treated with warfarin INR is subtherapeutic and bridge with Lovenox, we may discussed with the pmo consultant to switch over to Eliquis and further recommendation to follow. Straightedge Worker is agreeable to switch patient to DOAC, discus with pharmacist and started Eliquis 10mg BID for 7 days thereafter switch to 5mg BID, patient still requiring high flow oxygen secondary to influenza A, pneumonia and exacerbation of COPD. Patient is being treated with Tamiflu, prednisone, duo neb, azithromycin and ceftriaxone will continue to monitor. Patient continue to require high-flow oxygen and desatted with slight exertion, on 01/[address] Morales membership assistant reviewed the chart, recommended repeat ABG which did not show any hypercapnia, also extended course of Tamiflu to 10 days, today patient compelted 10 days course and DC prednisone as it is not recommended with influenza A, and started on high flow NC 12L, today patient is seen by Dr. Morales, and agrees with current management, patient is feelingmuch better and oxygenation has improved and today patient is on 3L NC, Dr Morales has ordered overnight Apnea Link, patient is lying in the bed patient is seen by membership assistant had escaleted abx now taking meropenem her white counts are now close to normal, and her oxygenation is improving, as patient showed pneumonia. plan is to discharge patient tomorrow. Review of Systems Review of Systems: All systems reviewed & are unremarkable except as noted in HPI and below Exam Narrative: Patient is comfortable, NAD HEENT: eyes are clear and none icteric LUNGS: Bilateral fair air entry with rhonchi and wheezing HEART: RR S1S2 ABD: BS+, Soft and nontender Lower extremities: no edema SKIN: nonjaundiced Neuro: grossly intact. Objective Data Vital Signs Vital Signs: Vital Signs - 24 hr 01/25/25 18:00 01/25/25 20:00 01/25/25 20:00 Temperature 36.8 C Pulse Rate 75 71 Respiratory Rate 20 Blood Pressure 113/53 L Pulse Oximetry 95 95 Oxygen Delivery High Flow Nasal Cannula Oxygen Flow Rate 5 Fraction of Inspired Oxygen 01/25/25 20:00 01/25/25 20:05 01/25/25 20:22 Temperature Pulse Rate 73 76 76 Respiratory Rate 20 20 Blood Pressure Pulse Oximetry 95 Oxygen Delivery High Flow Nasal Cannula Oxygen Flow Rate 5 Fraction of Inspired Oxygen 01/25/25 20:22 01/25/25 20:35 01/25/25 22:00 Temperature Pulse Rate 76 75 72 Respiratory Rate 20 Blood Pressure Pulse Oximetry Oxygen Delivery Oxygen Flow Rate Fraction of Inspired Oxygen 01/26/25 00:00 01/26/25 00:00 01/26/25 00:00 Temperature 36.8 C Pulse Rate 73 79 Respiratory Rate 16 Blood Pressure 119/52 L Pulse Oximetry 96 96 Oxygen Delivery High Flow Nasal Cannula Oxygen Flow Rate 5 Fraction of Inspired Oxygen 01/26/25 02:00 01/26/25 02:11 01/26/25 02:30 Temperature Pulse Rate 74 77 77 Respiratory Rate 20 20 Blood Pressure Pulse Oximetry Oxygen Delivery Oxygen Flow Rate Fraction of Inspired Oxygen 01/26/25 04:00 01/26/25 04:00 01/26/25 04:00 Temperature 36.7 C Pulse Rate 71 72 Respiratory Rate 16 Blood Pressure 120/52 L Pulse Oximetry 95 95 Oxygen Delivery High Flow Nasal Cannula Oxygen Flow Rate 5 Fraction of Inspired Oxygen 01/26/25 06:00 01/26/25 08:00 01/26/25 08:00 Temperature Pulse Rate 74 100 79 Respiratory Rate 20 Blood Pressure Pulse Oximetry 97 Oxygen Delivery High Flow Nasal Cannula Oxygen Flow Rate 3 Fraction of Inspired Oxygen 01/26/25 08:14 01/26/25 08:35 01/26/25 08:35 Temperature 36.3 C L Pulse Rate 69 77 Respiratory Rate 18 20 Blood Pressure 114/61 Pulse Oximetry 98 97 Oxygen Delivery High Flow Nasal Cannula Oxygen Flow Rate 5 Fraction of Inspired Oxygen 40 01/26/25 08:47 01/26/25 09:20 01/26/25 10:00 Temperature Pulse Rate 75 100 85 Respiratory Rate 20 Blood Pressure Pulse Oximetry Oxygen Delivery Oxygen Flow Rate Fraction of Inspired Oxygen 01/26/25 11:08 01/26/25 11:08 01/26/25 11:53 Temperature 36.4 C L Pulse Rate 87 85 74 Respiratory Rate 20 21 H Blood Pressure 116/54 L Pulse Oximetry 97 96 Oxygen Delivery High Flow Nasal Cannula Oxygen Flow Rate 3 Fraction of Inspired Oxygen 01/26/25 14:00 01/26/25 14:00 01/26/25 14:09 Temperature Pulse Rate 73 74 Respiratory Rate 20 20 Blood Pressure Pulse Oximetry 93 Oxygen Delivery Nasal Cannula Oxygen Flow Rate 3 Fraction of Inspired Oxygen 32 Intake/Output Intake/Output: Intake & Output 01/23/25 01/24/25 01/25/25 01/26/25 23:59 23:59 23:59 23:59 Intake Total 1540 2009 1410 610 Output Total 550 700 800 500 Balance 990 1310 610 110 Meds/Results Medications: Active Medications Generic Name Dose Route Start Last Admin Trade Name Freq PRN Reason Stop Dose Admin Acetaminophen 650 mg 01/13/25 20:15 01/22/25 20:53 Acetaminophen 325 Mg Tablet PO 650 mg Q4H PRN Administration Mild Pain (1-3) or Fever Acetylcysteine 200 mg 01/21/25 14:00 01/26/25 14:00 Acetylcysteine 20% Inhal Soln 800 Mg/4 Ml Vial INHALATION 200 mg Q6HRT ENEDELIA Administration Albuterol/Ipratropium 3 ml 01/13/25 20:00 01/26/25 14:00 Ipratropium 0.5 Mg/Albuterol Sulfate 2.5 Mg Ampul.Neb 3 Ml INHALATION 3 ml Q6HRT ENEDELIA Administration Apixaban 5 mg 01/23/25 21:00 01/26/25 09:26 Apixaban 5 Mg Tablet PO 5 mg Q12HR ENEDELIA Administration Benzocaine 1 lozenge 01/14/25 00:38 Benzocaine/Menthol (*Bkc) 18 Ea Lozenge PO PRN PRN Sore Throat Carvedilol 25 mg 01/13/25 21:00 01/26/25 09:20 Carvedilol 25 Mg Tablet PO 25 mg Q12HR ENEDELIA Administration Clopidogrel Bisulfate 75 mg 01/14/25 09:00 01/26/25 09:20 Clopidogrel Bisulfate 75 Mg Tablet PO 75 mg QAM ENEDELIA Administration Felodipine 10 mg 01/14/25 09:00 01/26/25 09:21 Felodipine 5 Mg Tab Cr PO 10 mg QAM ENEDELIA Administration Guaifenesin 1,200 mg 01/14/25 09:00 01/26/25 09:21 Guaifenesin 12 Hr 600 Mg Tabcr PO 1,200 mg Q12HR ENEDELIA Administration Meropenem 1 gm in 100 mls @ 200 mls/hr 01/22/25 11:00 01/26/25 09:22 IVPB 200 mls/hr Q12HR ENEDELIA Administration Isosorbide Mononitrate 30 mg 01/14/25 09:00 01/26/25 09:20 Isosorbide Mononitrate 30 Mg Tab.Er.24h PO 30 mg DAILY ENEDELIA Administration Levothyroxine Sodium 88 mcg 01/14/25 06:30 01/26/25 05:36 Levothyroxine Sodium 88 Mcg Tablet PO 88 mcg DAILY@0630 ENEDELIA Administration Ondansetron HCl 4 mg 01/13/25 20:15 01/23/25 18:40 Ondansetron Inj 4 Mg/2 Ml Vial IV PUSH 4 mg Q6H PRN Administration Nausea And Vomiting Oxybutynin Chloride 15 mg 01/14/25 09:00 01/26/25 09:20 Oxybutynin Chloride Xl 5 Mg Tab.Er.24 PO 15 mg DAILY ENEDELIA Administration Pantoprazole Sodium 40 mg 01/14/25 09:00 01/26/25 09:22 Pantoprazole 40 Mg Tablet PO 40 mg QAM ENEDELIA Administration Polyethylene Glycol 17 gm 01/21/25 12:55 01/26/25 09:23 Polyethylene Glycol 3350 17 Gm Powd.Pack PO 17 gm QAM ENEDELIA Administration Ranolazine 500 mg 01/13/25 21:00 01/26/25 09:20 Ranolazine 500 Mg Tab.Er.12h PO 500 mg Q12HR ENEDELIA Administration Rosuvastatin Calcium 40 mg 01/14/25 09:00 01/26/25 09:23 Rosuvastatin 20 Mg Tablet PO 40 mg DAILY ENEDELIA Administration Senna 8.6 mg 01/21/25 12:55 01/24/25 10:12 Sennosides 8.6 Mg Tablet PO 8.6 mg DAILY PRN Administration Constipation Radiology Results: ITS Impressions Chest CTA 01/14/25 15:03 IMPRESSION: 1. Pulmonary embolism. 2. Bilateral basal pneumonia. 3. Trace of pericardial effusion. 4. Status post left nephrectomy and splenectomy. Prominent left adrenal gland. Physician: Jana Vieira APRN Was notified with the result of the patient at 3:24 PM on January 14, 2025 Venous Doppler Study 01/15/25 15:00 IMPRESSION: Bilateral deep vein thrombosis involving the posterior tibial and peroneal veins.. Chest X-Ray 01/22/25 09:23 IMPRESSION: Left lower lobe infiltrate with a left-sided pleural effusion. Labs Labs: Laboratory Results - last 24 hr 01/26/25 04:10 WBC 7.9 RBC 2.65 L Hgb 8.2 L Hct 25.6 L MCV 96.6 MCH 30.9 MCHC 32.0 RDW 18.2 H Plt Count 400 H MPV 10.3 Immature Gran % (Auto) 1.8 H Neut % (Auto) 76.8 H Lymph % (Auto) 13.4 L [place] % (Auto) 7.8 Eos % (Auto) 0.1 Baso % (Auto) 0.1 L Lymph # (Auto) 1.06 [place] # (Auto) 0.6 Eos # (Auto) 0.0 Baso # (Auto) 0.0 Abs Immat Gran (auto) 0.14 H Absolute Neuts (auto) 6.1 Absolute Nucleated RBC 0.000 Nucleated RBC % 0.0 Sodium 137 Potassium 4.2 Chloride 106 Carbon Dioxide 23 Anion Gap 8 BUN 16 Creatinine 1.04 H Estim Creat Clear Calc 42 Estimated GFR 53 L Glucose 93 Calcium 9.1 Magnesium 1.6 Total Bilirubin 0.3 AST 83 H ALT 120 H Alkaline Phosphatase 153 H Total Protein 7.0 Albumin 2.6 L Quality VTE Prophylaxis VTE prophylaxis: mechanical ordered
[2025-01-27] VITALS (22 sets, daily range): BP systolic 104–124; BP diastolic 48–65; PULSE 67–89; RESP 20–22; TEMP 36.4–36.9; O2SAT 90–97
--- NOTE | 2025-01-27 03:46 | PCRCNOTE ---
0200 Respiratory meds not given due to an apnea link test being performed. No interruptions during test
[2025-01-27] MEDS: LEVOTHYROXINE SODIUM 88 MCG TABLET PO (06:07)
[2025-01-27 06:17] LABS: Anion Gap 8 mmol/L (4-12); Blood Urea Nitrogen 15 mg/dL (7-17); Calcium 8.7 mg/dL (8.4-10.2); Carbon Dioxide 23 mmol/L (22-30); Chloride 106 mmol/L (98-107); Estimated CRCL calculation 51 ml/min; Estimated Glomerular Filt Rate > 60; Glucose 85 mg/dL (65-110); Magnesium 1.7 mg/dL (1.6-2.3); Potassium 4.5 mmol/L (3.4-5.0); Sodium 137 mmol/L (137-145)
[2025-01-27 06:25] LABS: Hematocrit 26.1 % (37.0-47.0); Hemoglobin 8.4 g/dL (12.0-15.0); Mean Corpuscular HGB Conc 32.2 g/dl (32-36); Mean Corpuscular Hemoglobin 31.1 pg (26-34); Mean Corpuscular Volume 96.7 fl (80-100); Mean Platelet Volume 9.9 fl (7.4-10.4); Platelet Count Result 404 k/mm3 (150-375); Red Cell Distribution Width 18.2 % (11.5-14.5); White Blood Count 9.1 K/mm3 (4.5-10.0)
[2025-01-27] MEDS: carvediloL 25 MG TABLET PO ×2 (08:16→20:24)
[2025-01-27] MEDS: APIXABAN 5 MG TABLET PO ×2 (08:16→20:24)
[2025-01-27] MEDS: SENNOSIDES 8.6 MG TABLET PO ×2 (08:16→20:23)
[2025-01-27] MEDS: ISOSORBIDE MONONITRATE 30 MG TAB.ER.24H PO (08:16)
[2025-01-27] MEDS: ROSUVASTATIN 20 MG TABLET 40 MG PO (08:17)
[2025-01-27] MEDS: PANTOPRAZOLE 40 MG TABLET PO (08:17)
[2025-01-27] MEDS: RANOLAZINE 500 MG TAB.ER.12H PO ×2 (08:17→20:24)
[2025-01-27] MEDS: guaiFENesin 12 HR 600 MG TABCR 1200 MG PO ×2 (08:17→20:23)
[2025-01-27] MEDS: oxyBUTYnin CHLORIDE XL 5 MG TAB.ER.24 15 MG PO (08:17)
[2025-01-27] MEDS: CLOPIDOGREL BISULFATE 75 MG TABLET PO (08:17)
[2025-01-27] MEDS: MEROPENEM 1 GM/NS 100 ML 1 GM/100 ML BAG IVPB ×2 (08:18→20:24)
[2025-01-27] MEDS: polyethylene glycoL 3350 17 GM POWD.PACK PO (08:18)
[2025-01-27] MEDS: FELODIPINE 5 MG TAB CR 10 MG PO (08:18)
[2025-01-27] MEDS: ACETYLCYSTEINE 20% INHAL SOLN 800 MG/4 ML VIAL 200 MG INHALATION ×3 (08:50→19:45)
[2025-01-27] MEDS: IPRATROPIUM 0.5 MG/ALBUTEROL SULFATE 2.5 MG AMPUL.NEB 3 ML INHALATION ×3 (08:50→19:45)
--- NOTE | 2025-01-27 09:31 | PM.PNPUL ---
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 She is currently receiving appropriate treatment with a direct oral anticoagulant. During hospitalization her clinical course was complicated by nosocomial pneumonia for which the patient was started on IV antibiotics, currently on meropenem. She had cough with yellowish sputum production and leukocytosis. Chest x-ray showed persistent infiltrate and small pleural effusion on left. Over the last 72 hours the patient's respiratory status improved with oxygen flow not decrease to 2 liters/minute. Chest x-ray done today still showing left lower lobe infiltrate and pleural effusion. Plan: Need to repeat a chest CT to assess the extent of left lower lobe consolidation, size of left pleural effusion and document clearing of the previous right lower lobe consolidation; depending upon the results of chest CT the patient will be discharged home today or tomorrow. (3) Pneumonia: Code(s): J18.9 - Pneumonia, unspecified organism Status: Acute Subjective Date/time seen: 01/27/25 09:31 Interval history: Patient stated she is doing better. Improvement noted over the weekend with current oxygen flow being at 2 liters/minute. She has no cough or sputum production. She still on meropenem for nosocomial pneumonia. Patient eager to go home Review of Systems Review of Systems: All systems reviewed & are unremarkable except as noted in HPI and below Exam Narrative: GENERAL APPEARANCE: Well developed, well nourished, alert and cooperative, and appears to be in no acute distress while on supplemental oxygen via nasal cannula SKIN: Inspection of the skin reveals no rashes, ulcerations or petechiae. HEENT: Sclerae anicteric and conjunctivae pink and moist. Extraocular movements were intact and pupils were equal, round, and reactive to light. The oral mucosa, hard and soft palate, tongue and posterior pharynx were normal. NECK: Supple. There was no thyroid enlargement, and no tenderness, or masses were felt. LUNGS: Decreased breath sounds at left base posteriorly, also tubular sounds at left base CARDIAC: There was a regular rate and rhythm without any murmurs, gallops, rubs. ABDOMEN: Soft and nontender with normal bowel sounds. There was no organomegaly. LYMPH NODES: No lymphadenopathy was appreciated in the neck. EXTREMITIES: No cyanosis, clubbing or edema. NEUROLOGIC: Alert and oriented x 3. Normal affect. Objective Data Vital Signs Vital Signs: Vital Signs - 24 hr 01/26/25 10:00 01/26/25 11:08 01/26/25 11:08 Temperature Pulse Rate 85 87 85 Respiratory Rate 20 Blood Pressure Pulse Oximetry 97 Oxygen Delivery High Flow Nasal Cannula Oxygen Flow Rate 3 Fraction of Inspired Oxygen 01/26/25 11:53 01/26/25 14:00 01/26/25 14:00 Temperature 36.4 C L Pulse Rate 74 73 Respiratory Rate 21 H 20 Blood Pressure 116/54 L Pulse Oximetry 96 93 Oxygen Delivery Nasal Cannula Oxygen Flow Rate 3 Fraction of Inspired Oxygen 32 01/26/25 14:00 01/26/25 14:09 01/26/25 16:00 Temperature 36.6 C Pulse Rate 69 74 69 Respiratory Rate 20 18 Blood Pressure 130/58 L Pulse Oximetry 93 Oxygen Delivery Oxygen Flow Rate Fraction of Inspired Oxygen 01/26/25 16:00 01/26/25 16:00 01/26/25 18:00 Temperature Pulse Rate 73 69 75 Respiratory Rate 18 Blood Pressure Pulse Oximetry 93 Oxygen Delivery Nasal Cannula Oxygen Flow Rate 3 Fraction of Inspired Oxygen 32 01/26/25 20:00 01/26/25 20:00 01/26/25 20:20 Temperature 36.4 C Pulse Rate 67 76 Respiratory Rate 18 Blood Pressure 128/55 L Pulse Oximetry 94 91 Oxygen Delivery Nasal Cannula Oxygen Flow Rate 3 Fraction of Inspired Oxygen 01/26/25 20:34 01/26/25 20:34 01/26/25 20:45 Temperature Pulse Rate 74 78 Respiratory Rate 20 20 Blood Pressure Pulse Oximetry 94 Oxygen Delivery Nasal Cannula Oxygen Flow Rate 3 Fraction of Inspired Oxygen 32 01/26/25 21:04 01/26/25 22:00 01/26/25 23:20 Temperature Pulse Rate 75 71 72 Respiratory Rate Blood Pressure Pulse Oximetry 93 Oxygen Delivery Nasal Cannula Oxygen Flow Rate 2 Fraction of Inspired Oxygen 01/26/25 23:30 01/26/25 23:57 01/27/25 00:00 Temperature 36.5 C Pulse Rate 71 67 Respiratory Rate 18 Blood Pressure 129/58 L Pulse Oximetry 94 94 Oxygen Delivery Nasal Cannula Oxygen Flow Rate 3 Fraction of Inspired Oxygen 32 01/27/25 02:00 01/27/25 04:00 01/27/25 04:00 Temperature Pulse Rate 68 70 Respiratory Rate Blood Pressure Pulse Oximetry 94 Oxygen Delivery Nasal Cannula Oxygen Flow Rate 3 Fraction of Inspired Oxygen 01/27/25 05:48 01/27/25 06:00 01/27/25 08:00 Temperature 36.4 C 36.8 C Pulse Rate 69 70 77 Respiratory Rate 20 22 H Blood Pressure 124/50 L 119/57 L Pulse Oximetry 95 94 Oxygen Delivery Oxygen Flow Rate Fraction of Inspired Oxygen 01/27/25 08:16 01/27/25 08:52 01/27/25 08:52 Temperature Pulse Rate 75 77 Respiratory Rate 20 Blood Pressure Pulse Oximetry 97 Oxygen Delivery Nasal Cannula Oxygen Flow Rate 2 Fraction of Inspired Oxygen 01/27/25 09:08 Temperature Pulse Rate 79 Respiratory Rate 20 Blood Pressure Pulse Oximetry Oxygen Delivery Oxygen Flow Rate Fraction of Inspired Oxygen Intake/Output Intake/Output: Intake & Output 01/24/25 01/25/25 01/26/25 01/27/25 23:59 23:59 23:59 23:59 Intake Total 2009 1410 1080 550 Output Total 700 800 750 700 Balance 1310 610 330 -150 Meds/Results Medications: Active Medications Generic Name Dose Route Start Last Admin Trade Name Freq PRN Reason Stop Dose Admin Acetaminophen 650 mg 01/13/25 20:15 01/22/25 20:53 Acetaminophen 325 Mg Tablet PO 650 mg Q4H PRN Administration Mild Pain (1-3) or Fever Acetylcysteine 200 mg 01/21/25 14:00 01/27/25 08:50 Acetylcysteine 20% Inhal Soln 800 Mg/4 Ml Vial INHALATION 200 mg Q6HRT ENEDELIA Administration Albuterol/Ipratropium 3 ml 01/13/25 20:00 01/27/25 08:50 Ipratropium 0.5 Mg/Albuterol Sulfate 2.5 Mg Ampul.Neb 3 Ml INHALATION 3 ml Q6HRT ENEDELIA Administration Apixaban 5 mg 01/23/25 21:00 01/27/25 08:16 Apixaban 5 Mg Tablet PO 5 mg Q12HR ENEDELIA Administration Benzocaine 1 lozenge 01/14/25 00:38 Benzocaine/Menthol (*Bkc) 18 Ea Lozenge PO PRN PRN Sore Throat Carvedilol 25 mg 01/13/25 21:00 01/27/25 08:16 Carvedilol 25 Mg Tablet PO 25 mg Q12HR ENEDELIA Administration Clopidogrel Bisulfate 75 mg 01/14/25 09:00 01/27/25 08:17 Clopidogrel Bisulfate 75 Mg Tablet PO 75 mg QAM ENEDELIA Administration Felodipine 10 mg 01/14/25 09:00 01/27/25 08:18 Felodipine 5 Mg Tab Cr PO 10 mg QAM ENEDELIA Administration Guaifenesin 1,200 mg 01/14/25 09:00 01/27/25 08:17 Guaifenesin 12 Hr 600 Mg Tabcr PO 1,200 mg Q12HR ENEDELIA Administration Meropenem 1 gm in 100 mls @ 200 mls/hr 01/22/25 11:00 01/27/25 08:18 IVPB 200 mls/hr Q12HR ENEDELIA Administration Isosorbide Mononitrate 30 mg 01/14/25 09:00 01/27/25 08:16 Isosorbide Mononitrate 30 Mg Tab.Er.24h PO 30 mg DAILY ENEDELIA Administration Levothyroxine Sodium 88 mcg 01/14/25 06:30 01/27/25 06:07 Levothyroxine Sodium 88 Mcg Tablet PO 88 mcg DAILY@0630 ENEDELIA Administration Ondansetron HCl 4 mg 01/13/25 20:15 01/23/25 18:40 Ondansetron Inj 4 Mg/2 Ml Vial IV PUSH 4 mg Q6H PRN Administration Nausea And Vomiting Oxybutynin Chloride 15 mg 01/14/25 09:00 01/27/25 08:17 Oxybutynin Chloride Xl 5 Mg Tab.Er.24 PO 15 mg DAILY ENEDELIA Administration Pantoprazole Sodium 40 mg 01/14/25 09:00 01/27/25 08:17 Pantoprazole 40 Mg Tablet PO 40 mg QAM ENEDELIA Administration Polyethylene Glycol 17 gm 01/21/25 12:55 01/27/25 08:18 Polyethylene Glycol 3350 17 Gm Powd.Pack PO 17 gm QAM ENEDELIA Administration Ranolazine 500 mg 01/13/25 21:00 01/27/25 08:17 Ranolazine 500 Mg Tab.Er.12h PO 500 mg Q12HR ENEDELIA Administration Rosuvastatin Calcium 40 mg 01/14/25 09:00 01/27/25 08:17 Rosuvastatin 20 Mg Tablet PO 40 mg DAILY ENEDELIA Administration Senna 8.6 mg 01/21/25 12:55 01/27/25 08:16 Sennosides 8.6 Mg Tablet PO 8.6 mg DAILY PRN Administration Constipation Radiology Results: ITS Impressions Chest CTA 01/14/25 15:03 IMPRESSION: 1. Pulmonary embolism. 2. Bilateral basal pneumonia. 3. Trace of pericardial effusion. 4. Status post left nephrectomy and splenectomy. Prominent left adrenal gland. Physician: Jana Vieira APRN Was notified with the result of the patient at 3:24 PM on January 14, 2025 Venous Doppler Study 01/15/25 15:00 IMPRESSION: Bilateral deep vein thrombosis involving the posterior tibial and peroneal veins.. Chest X-Ray 01/27/25 06:39 Impression: [id number] left pleural effusion with left lower lobe atelectasis and/or pneumonia. Correlate clinically. Labs Labs: Laboratory Results - last 24 hr 01/27/25 05:36 WBC 9.1 RBC 2.70 L Hgb 8.4 L Hct 26.1 L MCV 96.7 MCH 31.1 MCHC 32.2 RDW 18.2 H Plt Count 404 H MPV 9.9 Sodium 137 Potassium 4.5 Chloride 106 Carbon Dioxide 23 Anion Gap 8 BUN 15 Creatinine 0.86 Estim Creat Clear Calc 51 Estimated GFR > 60 Glucose 85 Calcium 8.7 Magnesium 1.7
--- NOTE | 2025-01-27 13:18 | PCPTNOTE ---
Attempted to see patient for PT, however patient declined due to anticipated discharge.
--- NOTE | 2025-01-27 17:36 | PM.IMPN ---
Progress Note: A&P Assessment and Plan (1) Pulmonary embolism: Code(s): I26.99 - Other pulmonary embolism without acute cor pulmonale Status: Acute Assessment and Plan: 3/4 rapid response for acute hypoxia CTA showing Pulmonary embolism is seen in the branches of the right and left lower and upper lobes arteries Echo pending to check for right heart strain Patient placed on heparin drip Monitor cardiac catheterization access site for hematoma Wean oxygen to SpO2 of 90% After CT patient lost her voice however she does not have stridor will treat for possible allergy and monitor closely, she has had contrast in the past without incident (2) Influenza A: Code(s): J10.1 - Influenza due to other identified influenza virus with other respiratory manifestations Status: Acute Assessment and Plan: Guaifenesin Tamiflu Tylenol (3) Pneumonia: Code(s): J18.9 - Pneumonia, unspecified organism Status: Acute Assessment and Plan: Left lower lobe pneumonia Started on Rocephin and azithromycin Breathing treatments Incentive spirometer (4) Acute respiratory failure with hypoxia: Code(s): J96.01 - Acute respiratory failure with hypoxia Status: Acute Assessment and Plan: currently on 4 L nasal cannula, continue to wean for an O2 sat greater than 92% continue DuoNeb breathing treatments q.6 hour patient was given 1 dose of Lasix 40 mg IV while in cardiac medical laboratory technical officer recovery proBNP 746 (5) Chronic obstructive pulmonary disease: Code(s): J44.9 - Chronic obstructive pulmonary disease, unspecified Status: Acute Assessment and Plan: see above plan of care likely to exacerbation On antibiotics IV Solu-Medrol x1 Oral prednisone starting tomorrow (6) Coronary artery disease: Code(s): I25.10 - Atherosclerotic heart disease of [place] coronary artery without angina pectoris Status: Acute Assessment and Plan: history of coronary artery disease with stent placement continue cardiac monitoring patient had a nuclear stress test and a PET myocardial perfusion imaging recently which were abnormal status post cardiac catheterization today with Dr. Carvalho. LAD showed 40-50% stenosis, RCA 30-40% stenosis. This was for cardiac clearance for an upcoming hernia repair surgery. cardiology primary this admission continue rosuvastatin and Plavix continue vascular checks to right radial puncture site (7) Stage 3a chronic kidney disease: Code(s): N18.31 - Chronic kidney disease, stage 3a Status: Acute Assessment and Plan: labs today showed a creatinine of 1.36, EGFR 39 baseline creatinine appears to trend between 1.17-1.22, EGFR ranging 44-46 continue to trend (8) Paroxysmal atrial fibrillation: Code(s): I48.0 - Paroxysmal atrial fibrillation Status: Acute Assessment and Plan: continue carvedilol Coumadin on hold for today due to cardiac catheterization INR 1.1 today Deferring to Cardiology 1 to restart (9) Essential hypertension: Code(s): I10 - Essential (primary) hypertension Status: Acute Assessment and Plan: blood pressure ranging 116/86 to 145/73 continue felodipine and Imdur (10) Hypothyroidism: Code(s): E03.9 - Hypothyroidism, unspecified Status: Acute Assessment and Plan: continue Synthroid last TSH was 0.543 on 12/16/2023 TSH low (11) Anemia: Code(s): D64.9 - Anemia, unspecified Status: Acute Assessment and Plan: hemoglobin 9.9 appears chronic iron 46, ferritin 65.20, vitamin B12 864 on 11/29/24 TSH was 0.543 on 12/16/2023 Folate over 20, will hold while in hospital, patient could switch to every other day (12) GERD (gastroesophageal reflux disease): Code(s): K21.9 - Gastro-esophageal reflux disease without esophagitis Status: Acute Assessment and Plan: start Protonix Plan Chest x-ray shows left lower lobe pneumonia started on antibiotics in a.m.. Patient had increasing oxygen demands overnight from 2 L to 4, however today she is progressively had higher oxygen demands and ended up having a rapid response (see critical care note for details) for hypoxia placed on on non breather CTA showed Pulmonary embolism is seen in the branches of the right and left lower and upper lobes arteries. Venous Doppler of bilateral lower extremity showed, bilateral deep vein thrombosis involving the posterior tibial and peroneal veins.. Patient also has bilateral pneumonia, patient is being treated with warfarin INR is subtherapeutic and bridge with Lovenox, we may discussed with the hand embroiderer to switch over to Eliquis and further recommendation to follow. Brain Surgeon is agreeable to switch patient to DOAC, discus with pharmacist and started Eliquis 10mg BID for 7 days thereafter switch to 5mg BID, patient still requiring high flow oxygen secondary to influenza A, pneumonia and exacerbation of COPD. Patient is being treated with Tamiflu, prednisone, duo neb, azithromycin and ceftriaxone will continue to monitor. Patient continue to require high-flow oxygen and desatted with slight exertion, on 01/[address] Morales senior billing consultant reviewed the chart, recommended repeat ABG which did not show any hypercapnia, also extended course of Tamiflu to 10 days, today patient compelted 10 days course and DC prednisone as it is not recommended with influenza A, and started on high flow NC 12L, today patient is seen by Dr. Morales, and agrees with current management, patient is feelingmuch better and oxygenation has improved and today patient is on 3L NC, Dr Morales has ordered overnight Apnea Link, patient is lying in the bed patient is seen by senior billing consultant had escaleted abx now taking meropenem her white counts are now close to normal, and her oxygenation is improving, as patient showed pneumonia. plan was to discharge patient today however patient's Apnia Link was done, will the Apnia Link tonight and home O2 evaluation possible discharge home in the morning. Subjective Date/time seen: 01/27/25 17:36 Interval history: 69 year old female with CAD with coronary stents, COPD, CKD stage 3, AAA, DVT, paroxysmal atrial fibrillation, PE, HTN, GERD, anxiety, GOUT, JANNY, migraines, hypothyroidism, PVD, former smoker who presented originally for an outpatient heart catheterization with Dr. Carvalho as a preop cardiac work up for hernia repair surgery. Hospitalist team consulted for acute respiratory failure with hypoxia secondary to flu A. Chest x-ray shows left lower lobe pneumonia started on antibiotics in a.m.. Patient had increasing oxygen demands overnight from 2 L to 4, however today she is progressively had higher oxygen demands and ended up having a rapid response (see critical care note for details) for hypoxia placed on on non breather CTA showed Pulmonary embolism is seen in the branches of the right and left lower and upper lobes arteries. Venous Doppler of bilateral lower extremity showed, bilateral deep vein thrombosis involving the posterior tibial and peroneal veins.. Patient also has bilateral pneumonia, patient is being treated with warfarin INR is subtherapeutic and bridge with Lovenox, we may discussed with the hand embroiderer to switch over to Eliquis and further recommendation to follow. Brain Surgeon is agreeable to switch patient to DOAC, discus with pharmacist and started Eliquis 10mg BID for 7 days thereafter switch to 5mg BID, patient still requiring high flow oxygen secondary to influenza A, pneumonia and exacerbation of COPD. Patient is being treated with Tamiflu, prednisone, duo neb, azithromycin and ceftriaxone will continue to monitor. Patient continue to require high-flow oxygen and desatted with slight exertion, on 01/[address] Morales senior billing consultant reviewed the chart, recommended repeat ABG which did not show any hypercapnia, also extended course of Tamiflu to 10 days, today patient compelted 10 days course and DC prednisone as it is not recommended with influenza A, and started on high flow NC 12L, today patient is seen by Dr. Morales, and agrees with current management, patient is feelingmuch better and oxygenation has improved and today patient is on 3L NC, Dr Morales has ordered overnight Apnea Link, patient is lying in the bed patient is seen by senior billing consultant had escaleted abx now taking meropenem her white counts are now close to normal, and her oxygenation is improving, as patient showed pneumonia. plan was to discharge patient today however patient's Apnia Link was done, will the Apnia Link tonight and home O2 evaluation possible discharge home in the morning. Review of Systems Review of Systems: All systems reviewed & are unremarkable except as noted in HPI and below Exam Narrative: Patient is comfortable, NAD HEENT: eyes are clear and none icteric LUNGS: Bilateral fair air entry with rhonchi and wheezing HEART: RR S1S2 ABD: BS+, Soft and nontender Lower extremities: no edema SKIN: nonjaundiced Neuro: grossly intact. Objective Data Vital Signs Vital Signs: Vital Signs - 24 hr 01/26/25 18:00 01/26/25 20:00 01/26/25 20:00 Temperature Pulse Rate 75 67 Respiratory Rate Blood Pressure Pulse Oximetry 94 Oxygen Delivery Nasal Cannula Oxygen Flow Rate 3 Fraction of Inspired Oxygen 01/26/25 20:20 01/26/25 20:34 01/26/25 20:34 Temperature 36.4 C Pulse Rate 76 74 Respiratory Rate 18 20 Blood Pressure 128/55 L Pulse Oximetry 91 94 Oxygen Delivery Nasal Cannula Oxygen Flow Rate 3 Fraction of Inspired Oxygen 32 01/26/25 20:45 01/26/25 21:04 01/26/25 22:00 Temperature Pulse Rate 78 75 71 Respiratory Rate 20 Blood Pressure Pulse Oximetry Oxygen Delivery Oxygen Flow Rate Fraction of Inspired Oxygen 01/26/25 23:20 01/26/25 23:30 01/26/25 23:57 Temperature 36.5 C Pulse Rate 72 71 Respiratory Rate 18 Blood Pressure 129/58 L Pulse Oximetry 93 94 94 Oxygen Delivery Nasal Cannula Nasal Cannula Oxygen Flow Rate 2 3 Fraction of Inspired Oxygen 32 01/27/25 00:00 01/27/25 02:00 01/27/25 04:00 Temperature Pulse Rate 67 68 Respiratory Rate Blood Pressure Pulse Oximetry 94 Oxygen Delivery Nasal Cannula Oxygen Flow Rate 3 Fraction of Inspired Oxygen 01/27/25 04:00 01/27/25 05:48 01/27/25 06:00 Temperature 36.4 C Pulse Rate 70 69 70 Respiratory Rate 20 Blood Pressure 124/50 L Pulse Oximetry 95 Oxygen Delivery Oxygen Flow Rate Fraction of Inspired Oxygen 01/27/25 08:00 01/27/25 08:00 01/27/25 08:00 Temperature 36.8 C Pulse Rate 77 74 Respiratory Rate 22 H Blood Pressure 119/57 L Pulse Oximetry 94 92 Oxygen Delivery Nasal Cannula Oxygen Flow Rate 2 Fraction of Inspired Oxygen 01/27/25 08:16 01/27/25 08:52 01/27/25 08:52 Temperature Pulse Rate 75 77 Respiratory Rate 20 Blood Pressure Pulse Oximetry 97 Oxygen Delivery Nasal Cannula Oxygen Flow Rate 2 Fraction of Inspired Oxygen 01/27/25 09:08 01/27/25 10:00 01/27/25 12:00 Temperature 36.5 C Pulse Rate 79 78 73 Respiratory Rate 20 20 Blood Pressure 111/48 L Pulse Oximetry 92 Oxygen Delivery Oxygen Flow Rate Fraction of Inspired Oxygen 01/27/25 12:00 01/27/25 12:00 01/27/25 14:00 Temperature Pulse Rate 72 70 Respiratory Rate Blood Pressure Pulse Oximetry 92 Oxygen Delivery Nasal Cannula Oxygen Flow Rate 2 Fraction of Inspired Oxygen 01/27/25 14:21 Temperature Pulse Rate 89 Respiratory Rate 20 Blood Pressure Pulse Oximetry Oxygen Delivery Oxygen Flow Rate Fraction of Inspired Oxygen Intake/Output Intake/Output: Intake & Output 01/24/25 01/25/25 01/26/25 01/27/25 23:59 23:59 23:59 23:59 Intake Total 2009 1410 1080 790 Output Total 700 800 750 700 Balance 1310 610 330 90 Meds/Results Medications: Active Medications Generic Name Dose Route Start Last Admin Trade Name Freq PRN Reason Stop Dose Admin Acetaminophen 650 mg 01/13/25 20:15 01/22/25 20:53 Acetaminophen 325 Mg Tablet PO 650 mg Q4H PRN Administration Mild Pain (1-3) or Fever Acetylcysteine 200 mg 01/21/25 14:00 01/27/25 14:20 Acetylcysteine 20% Inhal Soln 800 Mg/4 Ml Vial INHALATION 200 mg Q6HRT ENEDELIA Administration Albuterol/Ipratropium 3 ml 01/13/25 20:00 01/27/25 14:19 Ipratropium 0.5 Mg/Albuterol Sulfate 2.5 Mg Ampul.Neb 3 Ml INHALATION 3 ml Q6HRT ENEDELIA Administration Apixaban 5 mg 01/23/25 21:00 01/27/25 08:16 Apixaban 5 Mg Tablet PO 5 mg Q12HR ENEDELIA Administration Benzocaine 1 lozenge 01/14/25 00:38 Benzocaine/Menthol (*Bkc) 18 Ea Lozenge PO PRN PRN Sore Throat Carvedilol 25 mg 01/13/25 21:00 01/27/25 08:16 Carvedilol 25 Mg Tablet PO 25 mg Q12HR ENEDELIA Administration Clopidogrel Bisulfate 75 mg 01/14/25 09:00 01/27/25 08:17 Clopidogrel Bisulfate 75 Mg Tablet PO 75 mg QAM ENEDELIA Administration Felodipine 10 mg 01/14/25 09:00 01/27/25 08:18 Felodipine 5 Mg Tab Cr PO 10 mg QAM ENEDELIA Administration Guaifenesin 1,200 mg 01/14/25 09:00 01/27/25 08:17 Guaifenesin 12 Hr 600 Mg Tabcr PO 1,200 mg Q12HR ENEDELIA Administration Meropenem 1 gm in 100 mls @ 200 mls/hr 01/22/25 11:00 01/27/25 08:18 IVPB 01/28/25 21:29 200 mls/hr Q12HR ENEDELIA Administration Isosorbide Mononitrate 30 mg 01/14/25 09:00 01/27/25 08:16 Isosorbide Mononitrate 30 Mg Tab.Er.24h PO 30 mg DAILY ENEDELIA Administration Levothyroxine Sodium 88 mcg 01/14/25 06:30 01/27/25 06:07 Levothyroxine Sodium 88 Mcg Tablet PO 88 mcg DAILY@0630 ENEDELIA Administration Ondansetron HCl 4 mg 01/13/25 20:15 01/23/25 18:40 Ondansetron Inj 4 Mg/2 Ml Vial IV PUSH 4 mg Q6H PRN Administration Nausea And Vomiting Oxybutynin Chloride 15 mg 01/14/25 09:00 01/27/25 08:17 Oxybutynin Chloride Xl 5 Mg Tab.Er.24 PO 15 mg DAILY ENEDELIA Administration Pantoprazole Sodium 40 mg 01/14/25 09:00 01/27/25 08:17 Pantoprazole 40 Mg Tablet PO 40 mg QAM ENEDELIA Administration Polyethylene Glycol 17 gm 01/21/25 12:55 01/27/25 08:18 Polyethylene Glycol 3350 17 Gm Powd.Pack PO 17 gm QAM ENEDELIA Administration Ranolazine 500 mg 01/13/25 21:00 01/27/25 08:17 Ranolazine 500 Mg Tab.Er.12h PO 500 mg Q12HR ENEDELIA Administration Rosuvastatin Calcium 40 mg 01/14/25 09:00 01/27/25 08:17 Rosuvastatin 20 Mg Tablet PO 40 mg DAILY ENEDELIA Administration Senna 8.6 mg 01/21/25 12:55 01/27/25 08:16 Sennosides 8.6 Mg Tablet PO 8.6 mg DAILY PRN Administration Constipation Radiology Results: ITS Impressions Chest CTA 01/14/25 15:03 IMPRESSION: 1. Pulmonary embolism. 2. Bilateral basal pneumonia. 3. Trace of pericardial effusion. 4. Status post left nephrectomy and splenectomy. Prominent left adrenal gland. Physician: Jana Vieira APRN Was notified with the result of the patient at 3:24 PM on January 14, 2025 Venous Doppler Study 01/15/25 15:00 IMPRESSION: Bilateral deep vein thrombosis involving the posterior tibial and peroneal veins.. Chest X-Ray 01/27/25 06:39 Impression: [id number] left pleural effusion with left lower lobe atelectasis and/or pneumonia. Correlate clinically. Chest CT 01/27/25 15:41 IMPRESSION: 1. Pneumonia involving the left lower lobe and right lung base. Changes are worse than the previous study. 2. Moderate left pleural effusion. Labs Labs: Laboratory Results - last 24 hr 01/27/25 05:36 WBC 9.1 RBC 2.70 L Hgb 8.4 L Hct 26.1 L MCV 96.7 MCH 31.1 MCHC 32.2 RDW 18.2 H Plt Count 404 H MPV 9.9 Sodium 137 Potassium 4.5 Chloride 106 Carbon Dioxide 23 Anion Gap 8 BUN 15 Creatinine 0.86 Estim Creat Clear Calc 51 Estimated GFR > 60 Glucose 85 Calcium 8.7 Magnesium 1.7 Quality VTE Prophylaxis VTE prophylaxis: mechanical ordered
--- NOTE | 2025-01-27 17:43 | PC.NURSE ---
Notified Dr Alvarez of lack of BM. Received order for suppository. Order placed but pt refuses stating i will take care of it when I go home tomorrow .
[2025-01-28] VITALS (18 sets, daily range): BP systolic 111–127; BP diastolic 45–61; PULSE 70–89; RESP 18–20; TEMP 36.9–37.1; O2SAT 89–95
[2025-01-28] MEDS: LEVOTHYROXINE SODIUM 88 MCG TABLET PO (05:51)
[2025-01-28 06:30] LABS: Hematocrit 25.6 % (37.0-47.0); Hemoglobin 8.1 g/dL (12.0-15.0); Mean Corpuscular HGB Conc 31.6 g/dl (32-36); Mean Corpuscular Hemoglobin 30.5 pg (26-34); Mean Corpuscular Volume 96.2 fl (80-100); Mean Platelet Volume 9.6 fl (7.4-10.4); Platelet Count Result 388 k/mm3 (150-375); Red Blood Count 2.66 M/mm3 (4.2-5.4); Red Cell Distribution Width 18.1 % (11.5-14.5); White Blood Count 9.3 K/mm3 (4.5-10.0)
[2025-01-28 06:51] LABS: Anion Gap 7 mmol/L (4-12); Blood Urea Nitrogen 15 mg/dL (7-17); Calcium 8.7 mg/dL (8.4-10.2); Carbon Dioxide 22 mmol/L (22-30); Chloride 107 mmol/L (98-107); Estimated CRCL calculation 46 ml/min; Estimated Glomerular Filt Rate 58; Glucose 98 mg/dL (65-110); Magnesium 1.7 mg/dL (1.6-2.3); Potassium 3.8 mmol/L (3.4-5.0); Sodium 136 mmol/L (137-145)
[2025-01-28] MEDS: polyethylene glycoL 3350 17 GM POWD.PACK PO (08:31)
[2025-01-28] MEDS: ISOSORBIDE MONONITRATE 30 MG TAB.ER.24H PO (08:32)
[2025-01-28] MEDS: FELODIPINE 5 MG TAB CR 10 MG PO (08:32)
[2025-01-28] MEDS: APIXABAN 5 MG TABLET PO (08:32)
[2025-01-28] MEDS: ROSUVASTATIN 20 MG TABLET 40 MG PO (08:32)
[2025-01-28] MEDS: oxyBUTYnin CHLORIDE XL 5 MG TAB.ER.24 15 MG PO (08:32)
[2025-01-28] MEDS: RANOLAZINE 500 MG TAB.ER.12H PO (08:33)
[2025-01-28] MEDS: carvediloL 25 MG TABLET PO (08:33)
[2025-01-28] MEDS: PANTOPRAZOLE 40 MG TABLET PO (08:33)
[2025-01-28] MEDS: guaiFENesin 12 HR 600 MG TABCR 1200 MG PO (08:33)
[2025-01-28] MEDS: CLOPIDOGREL BISULFATE 75 MG TABLET PO (08:33)
[2025-01-28] MEDS: MEROPENEM 1 GM/NS 100 ML 1 GM/100 ML BAG IVPB (08:33)
[2025-01-28] MEDS: IPRATROPIUM 0.5 MG/ALBUTEROL SULFATE 2.5 MG AMPUL.NEB 3 ML INHALATION (08:39)
[2025-01-28] MEDS: ACETYLCYSTEINE 20% INHAL SOLN 800 MG/4 ML VIAL 200 MG INHALATION (08:40)
--- NOTE | 2025-01-28 09:02 | PM.PNPUL ---
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 She is currently receiving appropriate treatment with a direct oral anticoagulant. During hospitalization her clinical course was complicated by nosocomial pneumonia for which the patient was started on IV antibiotics, currently on meropenem. She had cough with yellowish sputum production and leukocytosis. Chest x-ray showed persistent infiltrate and small pleural effusion on left. Over the last 72 hours the patient's respiratory status improved, now breathing room air. Chest CT done last p.m. showed left lower lobe consolidation and small to moderate pleural effusion on left. Right lower lobe infiltrate seen on initial CT has cleared. ApneaLink study last night showed significant oxyhemoglobin desaturation on room air. Please refer to the ApneaLink report.. She has no leukocytosis on last CBC testing. Plan: The patient is cleared for discharge from a respiratory standpoint. She will require supplemental oxygen at a rate of 4 liters per minute during the night and possibly during activities, pending the results of the home oxygen evaluation test. She will continue taking a direct anticoagulant due to a recurrent pulmonary embolism. Given the recurrent nature of her thromboembolic events, she will need to remain on anticoagulation therapy indefinitely. For her left lower lobe pneumonia, the patient will continue with levofloxacin 500 mg for an additional 4 days. She should also continue using incentive spirometry and nebulized short-acting bronchodilators three times daily as needed. Her maintenance bronchodilator, Stiolto, should be taken daily. I have encouraged the patient to schedule a follow-up appointment with her still pump operator at the [facility] in approximately 2-3 weeks, or sooner if she experiences any respiratory symptoms. The patient has acknowledged and understood these instructions. I will coordinate with our scheduling team to arrange this outpatient appointment in the specified timeframe. Additionally, follow-up chest X-rays will be necessary to confirm the resolution of the left lower lobe infiltrate/pleural effusion. Please feel free to contact me with any questions. (3) Pneumonia: Code(s): J18.9 - Pneumonia, unspecified organism Status: Acute Subjective Date/time seen: 01/28/25 09:02 Interval history: Patient has no new respiratory symptoms. Underwent overnight oximetry last night. No cough no sputum production no fever chills. Spends most of the day in bed. Eager to go home. Review of Systems Review of Systems: All systems reviewed & are unremarkable except as noted in HPI and below (HPI and below) Exam Narrative: GENERAL APPEARANCE: Well developed, well nourished, alert and cooperative, and appears to be in no acute distress while on supplemental oxygen via nasal cannula SKIN: Inspection of the skin reveals no rashes, ulcerations or petechiae. HEENT: Sclerae anicteric and conjunctivae pink and moist. Extraocular movements were intact and pupils were equal, round, and reactive to light. The oral mucosa, hard and soft palate, tongue and posterior pharynx were normal. NECK: Supple. There was no thyroid enlargement, and no tenderness, or masses were felt. LUNGS: Decreased breath sounds at left base posteriorly, also tubular sounds at left base CARDIAC: There was a regular rate and rhythm without any murmurs, gallops, rubs. ABDOMEN: Soft and nontender with normal bowel sounds. There was no organomegaly. LYMPH NODES: No lymphadenopathy was appreciated in the neck. EXTREMITIES: No cyanosis, clubbing or edema. NEUROLOGIC: Alert and oriented x 3. Normal affect. Objective Data Vital Signs Vital Signs: Vital Signs - 24 hr 01/27/25 09:08 01/27/25 10:00 01/27/25 12:00 Temperature 36.5 C Pulse Rate 79 78 73 Respiratory Rate 20 20 Blood Pressure 111/48 L Pulse Oximetry 92 Oxygen Delivery Oxygen Flow Rate Fraction of Inspired Oxygen 01/27/25 12:00 01/27/25 12:00 01/27/25 14:00 Temperature Pulse Rate 72 70 Respiratory Rate Blood Pressure Pulse Oximetry 92 Oxygen Delivery Nasal Cannula Oxygen Flow Rate 2 Fraction of Inspired Oxygen 01/27/25 14:21 01/27/25 16:00 01/27/25 16:00 Temperature 36.6 C Pulse Rate 89 72 Respiratory Rate 20 20 Blood Pressure 104/55 L Pulse Oximetry 93 Oxygen Delivery Nasal Cannula Oxygen Flow Rate 2 Fraction of Inspired Oxygen 01/27/25 16:00 01/27/25 18:00 01/27/25 19:45 Temperature Pulse Rate 67 72 Respiratory Rate Blood Pressure Pulse Oximetry 95 Oxygen Delivery Nasal Cannula Oxygen Flow Rate 2 Fraction of Inspired Oxygen 28 01/27/25 19:45 01/27/25 20:00 01/27/25 20:00 Temperature Pulse Rate 73 74 Respiratory Rate 20 20 Blood Pressure Pulse Oximetry 94 Oxygen Delivery Nasal Cannula Oxygen Flow Rate 2 Fraction of Inspired Oxygen 01/27/25 20:00 01/27/25 20:36 01/27/25 22:00 Temperature 36.6 C Pulse Rate 75 73 71 Respiratory Rate 20 Blood Pressure 117/65 Pulse Oximetry 92 Oxygen Delivery Oxygen Flow Rate Fraction of Inspired Oxygen 01/27/25 22:57 01/27/25 23:10 01/27/25 23:22 Temperature 36.9 C Pulse Rate 82 Respiratory Rate 20 Blood Pressure 115/49 L Pulse Oximetry 90 90 92 Oxygen Delivery Room Air Nasal Cannula Oxygen Flow Rate 2 Fraction of Inspired Oxygen 21 01/28/25 00:00 01/28/25 02:00 01/28/25 03:48 Temperature Pulse Rate 75 75 Respiratory Rate Blood Pressure Pulse Oximetry 89 L Oxygen Delivery Nasal Cannula Oxygen Flow Rate 2 Fraction of Inspired Oxygen 21 01/28/25 04:00 01/28/25 05:02 01/28/25 05:36 Temperature 37.1 C Pulse Rate 88 77 Respiratory Rate 20 Blood Pressure 111/45 L Pulse Oximetry 91 91 Oxygen Delivery Room Air Oxygen Flow Rate Fraction of Inspired Oxygen 21 01/28/25 05:59 01/28/25 08:05 01/28/25 08:33 Temperature 37.1 C Pulse Rate 78 75 72 Respiratory Rate 20 Blood Pressure 123/55 L Pulse Oximetry 95 Oxygen Delivery Oxygen Flow Rate Fraction of Inspired Oxygen 01/28/25 08:39 01/28/25 08:39 01/28/25 08:56 Temperature Pulse Rate 84 84 73 Respiratory Rate 20 20 20 Blood Pressure Pulse Oximetry 94 Oxygen Delivery Room Air Oxygen Flow Rate Fraction of Inspired Oxygen Intake/Output Intake/Output: Intake & Output 01/25/25 01/26/25 01/27/25 01/28/25 23:59 23:59 23:59 23:59 Intake Total 1410 1080 2050 120 Output Total 805 655 1950 500 Balance 610 330 550 -380 Meds/Results Medications: Active Medications Generic Name Dose Route Start Last Admin Trade Name Freq PRN Reason Stop Dose Admin Acetaminophen 650 mg 01/13/25 20:15 01/22/25 20:53 Acetaminophen 325 Mg Tablet PO 650 mg Q4H PRN Administration Mild Pain (1-3) or Fever Acetylcysteine 200 mg 01/21/25 14:00 01/28/25 08:40 Acetylcysteine 20% Inhal Soln 800 Mg/4 Ml Vial INHALATION 200 mg Q6HRT ENEDELIA Administration Albuterol/Ipratropium 3 ml 01/13/25 20:00 01/28/25 08:39 Ipratropium 0.5 Mg/Albuterol Sulfate 2.5 Mg Ampul.Neb 3 Ml INHALATION 3 ml Q6HRT ENEDELIA Administration Apixaban 5 mg 01/23/25 21:00 01/28/25 08:32 Apixaban 5 Mg Tablet PO 5 mg Q12HR ENEDELIA Administration Benzocaine 1 lozenge 01/14/25 00:38 Benzocaine/Menthol (*Bkc) 18 Ea Lozenge PO PRN PRN Sore Throat Carvedilol 25 mg 01/13/25 21:00 01/28/25 08:33 Carvedilol 25 Mg Tablet PO 25 mg Q12HR ENEDELIA Administration Clopidogrel Bisulfate 75 mg 01/14/25 09:00 01/28/25 08:33 Clopidogrel Bisulfate 75 Mg Tablet PO 75 mg QAM ENEDELIA Administration Felodipine 10 mg 01/14/25 09:00 01/28/25 08:32 Felodipine 5 Mg Tab Cr PO 10 mg QAM ENEDELIA Administration Guaifenesin 1,200 mg 01/14/25 09:00 01/28/25 08:33 Guaifenesin 12 Hr 600 Mg Tabcr PO 1,200 mg Q12HR ENEDELIA Administration Meropenem 1 gm in 100 mls @ 200 mls/hr 01/22/25 11:00 01/28/25 08:33 IVPB 01/28/25 21:29 200 mls/hr Q12HR ENEDELIA Administration Isosorbide Mononitrate 30 mg 01/14/25 09:00 01/28/25 08:32 Isosorbide Mononitrate 30 Mg Tab.Er.24h PO 30 mg DAILY ENEDELIA Administration Levothyroxine Sodium 88 mcg 01/14/25 06:30 01/28/25 05:51 Levothyroxine Sodium 88 Mcg Tablet PO 88 mcg DAILY@0630 ENEDELIA Administration Ondansetron HCl 4 mg 01/13/25 20:15 01/23/25 18:40 Ondansetron Inj 4 Mg/2 Ml Vial IV PUSH 4 mg Q6H PRN Administration Nausea And Vomiting Oxybutynin Chloride 15 mg 01/14/25 09:00 01/28/25 08:32 Oxybutynin Chloride Xl 5 Mg Tab.Er.24 PO 15 mg DAILY ENEDELIA Administration Pantoprazole Sodium 40 mg 01/14/25 09:00 01/28/25 08:33 Pantoprazole 40 Mg Tablet PO 40 mg QAM ENEDELIA Administration Polyethylene Glycol 17 gm 01/21/25 12:55 01/28/25 08:31 Polyethylene Glycol 3350 17 Gm Powd.Pack PO 17 gm QAM ENEDELIA Administration Ranolazine 500 mg 01/13/25 21:00 01/28/25 08:33 Ranolazine 500 Mg Tab.Er.12h PO 500 mg Q12HR ENEDELIA Administration Rosuvastatin Calcium 40 mg 01/14/25 09:00 01/28/25 08:32 Rosuvastatin 20 Mg Tablet PO 40 mg DAILY ENEDELIA Administration Senna 8.6 mg 01/21/25 12:55 01/27/25 20:23 Sennosides 8.6 Mg Tablet PO 8.6 mg DAILY PRN Administration Constipation Radiology Results: ITS Impressions Chest CTA 01/14/25 15:03 IMPRESSION: 1. Pulmonary embolism. 2. Bilateral basal pneumonia. 3. Trace of pericardial effusion. 4. Status post left nephrectomy and splenectomy. Prominent left adrenal gland. Physician: Jana Vieira APRN Was notified with the result of the patient at 3:24 PM on January 14, 2025 Venous Doppler Study 01/15/25 15:00 IMPRESSION: Bilateral deep vein thrombosis involving the posterior tibial and peroneal veins.. Chest X-Ray 01/27/25 06:39 Impression: [id number] left pleural effusion with left lower lobe atelectasis and/or pneumonia. Correlate clinically. Chest CT 01/27/25 15:41 IMPRESSION: 1. Pneumonia involving the left lower lobe and right lung base. Changes are worse than the previous study. 2. Moderate left pleural effusion. Labs Labs: Laboratory Results - last 24 hr 01/28/25 06:17 WBC 9.3 RBC 2.66 L Hgb 8.1 L Hct 25.6 L MCV 96.2 MCH 30.5 MCHC 31.6 L RDW 18.1 H Plt Count 388 H MPV 9.6 Sodium 136 L Potassium 3.8 Chloride 107 Carbon Dioxide 22 Anion Gap 7 BUN 15 Creatinine 0.95 Estim Creat Clear Calc 46 Estimated GFR 58 L Glucose 98 Calcium 8.7 Magnesium 1.7
--- NOTE | 2025-01-28 10:09 | HOMEO2EVAL ---
Evaluation was performed at [facility] Home Oxygen Evaluation RC: Home Oxygen (O2) Evaluation Start: 01/27/25 14:24 Freq: ONCE Status: Active Protocol: RPE Activity Type Activity Date Activity User E-sign Co-sign Detail Recorded Client Recorded Date Recorded By Document 01/28/25 09:20 [email or web address] [email or web address] 01/28/25 09:48 RICK Document 01/28/25 09:25 [email or web address] [email or web address] 01/28/25 09:48 RICK Document 01/28/25 09:35 RICK [email or web address] 01/28/25 09:48 RICK 01/28/25 01/28/25 01/28/25 09:20 09:25 09:35 Home O2 Evaluation [Oxygen] -Test Phase Resting Exercise Resting -Oxygen Delivery Room Air Room Air Room Air [Pulse Oximetry] -Pulse Oximetry (90-100 %) 93 90 94 [Pulse Rate] -Pulse Rate (60-100 beats/min) 71 89 76 [Evaluation] -Activity Tolerance Fair [Comments] -Home Oxygen Evaluation Comments Pt too weak to walk, we stood up at side of bed, and then back into bed. [Charges] -Evaluation Charges O2 Evaluation by Pulmonary
--- NOTE | 2025-01-28 10:10 | PCRCNOTE ---
Home O2 eval done, no O2 needed with rest or exertion, she will need 4 l with sleep. Arranging home O2 set up with IV resp Care at d/c.
--- NOTE | 2025-01-28 12:33 | P.DS_ITS ---
DS: Summary Time Spent with Patient Time attestation: Total time spent providing and/or coordinating discharge services: DS: Data Data Completed and Pending Labs on day of discharge: Labs from last 24 hours 01/28/25 06:17 WBC 9.3 RBC 2.66 L Hgb 8.1 L Hct 25.6 L MCV 96.2 MCH 30.5 MCHC 31.6 L RDW 18.1 H Plt Count 388 H MPV 9.6 Sodium 136 L Potassium 3.8 Chloride 107 Carbon Dioxide 22 Anion Gap 7 BUN 15 Creatinine 0.95 Estim Creat Clear Calc 46 Estimated GFR 58 L Glucose 98 Calcium 8.7 Magnesium 1.7 Discharge Plan Discharge Attending physician on discharge: Rah Carvalho Consulting providers: Donna Guillermo; Camron Morales Discharging Clinician: Ira Alvarez Patient Disposition: Home Health Service Activity: as tolerated Diet: heart healthy Discharge Instructions: [facility] [address] [place] [id number] DISCHARGE INSTRUCTIONS - POST RADIAL CATH Activity 1. No driving for 24 hours. 2. No lifting more than 5 lb with affected arm for 1 week. 3. May shower ( tomorrow) but no excessive soaking of affected hand/wrist (such as washing dishes), swimming pool or hot tub for 5 days. Wound Care 1. May remove arm board in the morning. 2. May remove gauze dressing in the morning and put Band-Aid over affected radial site. Keep site covered for 3 days. 3. Observe for redness, drainage, swelling or bleeding. Medications DO NOT STOP YOUR MEDICATIONS ONLY YOUR RATE REVIEWER CAN STOP THE FOLLOWING MEDICATIONS - PLEASE CALL THE OFFICE WITH QUESTIONS. *Aspirin *Plavix *Rosuvastatin *Imdur *Coreg Important Reminders 1. Keep your stent card in your wallet at all times 2. Follow a heart healthy diet paying extra attention to cholesterol and fats. 3. Stay hydrated. 4. If you have chest pain unrelieved by rest or nitroglycerin (if prescribed) call 911 immediately. 5. If you miss one dose of Brilinta (if prescribed) take a tablet at the next time due. If you miss 2 doses take a tablet when you remember and resume at the next time due. *For any other questions please call the office at [phone]. Office hours are 8AM 4:30PM Monday through Monday. 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 Care Coordination: Patient to have Home Health resume services at discharge. Patient Instructions: Antibiotic Form Patient Language: Kenyan Stand Alone Forms: General Discharge Information, General Discharge Instructions Follow-up/Referrals: Rah Carvalho MD [Physician] - Ricardo Freeman DO [Primary Care Provider] - Camron Morales MD [Physician] - Discharge Medications: New ipratropium-albuterol 0.5 mg-3 mg(2.5 mg base)/3 mL Solution For Nebulization 3 ml inhalation Q6HRT Qty: 90 0RF pantoprazole 40 mg Tablet,Delayed Release (Dr/Ec) 40 mg PO QAM Qty: 30 0RF guaifenesin [Mucus Relief ER] 600 mg Tablet Extended Release 12hr 1,200 mg PO Q12HR Qty: 30 0RF Chloraseptic Sore Throat 6-10 mg Lozenge 1 logan PO PRN PRN (Reason: Sore Throat) Qty: 30 0RF Eliquis 5 mg Tablet 5 mg PO Q12HR Qty: 60 0RF polyethylene glycol 3350 [Miralax] 17 gram Powder In Packet 17 g PO QAM Qty: 30 0RF sennosides [Senokot] 8.6 mg Tablet 8.6 mg PO DAILY PRN (Reason: Constipation) Qty: 30 0RF Continued nitroglycerin 0.4 mg tablet, sublingual 0.4 mg SUBLINGUAL Q5M PRN (Reason: Chest Pain) Rx Instructions: until response; do not exceed 3 doses per episode oxybutynin chloride 15 mg tablet extended release 24hr 15 mg PO DAILY clopidogrel [Plavix] 75 mg tablet 75 mg PO QAM Stiolto Respimat 2.5-2.5 mcg/actuation mist See Rx Instructions .ROUTE .COMPLEX Qty: 12 3RF Dose Instruction: INHALE 2 PUFFS BY MOUTH IN THE MORNING Rx Instructions: INHALE 2 PUFFS BY MOUTH IN THE MORNING zoledronic [id number] 5 mg/100 mL piggyback 1 ea IV DIRECTED Rx Instructions: YEARLY, TAOOK IN OCTOBER rosuvastatin 40 mg tablet 40 mg PO DAILY lansoprazole 15 mg capsule,delayed release(DR/EC) 15 mg PO DAILY PRN (Reason: acid reflux) acetaminophen 325 mg capsule 650 mg PO Q6H PRN (Reason: pain) ranolazine 500 mg tablet extended release 12 hr 500 mg PO BID methenamine hippurate 1 gram tablet 1 g PO BID isosorbide mononitrate 30 mg tablet extended release 24 hr 30 mg PO DAILY felodipine 10 mg tablet extended release 24 hr 10 mg PO QAM Qty: 90 3RF folic acid 1 mg tablet 1 mg PO DAILY Qty: 90 3RF levothyroxine 88 mcg tablet 88 mcg PO QAM Qty: 90 3RF albuterol sulfate 90 mcg/actuation HFA aerosol inhaler 1 - 2 inh inhalation Q4-6H PRN (Reason: shortness of breath or wheezing) Qty: 8.5 3RF carvedilol 25 mg tablet 25 mg PO Q12H Qty: 180 2RF Rx Instructions: must administer with a meal/food Discontinued warfarin 3 mg tablet See Rx Instructions .ROUTE .COMPLEX Qty: 45 4RF Protocol: Dose Management Condition: Monday Dose/Route: 4.5 mg Instruction: 1.5 x 3 mg tablets Condition: Monday Dose/Route: 4.5 mg Instruction: 1.5 x 3 mg tablets Condition: Monday Dose/Route: 4.5 mg Instruction: 1.5 x 3 mg tablets Condition: Monday Dose/Route: 4.5 mg Instruction: 1.5 x 3 mg tablets Condition: Dose/Route: 4.5 mg Instruction: 1.5 x 3 mg tablets Condition: Monday Dose/Route: 4.5 mg Instruction: 1.5 x 3 mg tablets Condition: Monday Dose/Route: 4.5 mg Instruction: 1.5 x 3 mg tablets Protocol Text: Adjustment Start Date: Monday03/25/22 INR Value: 2.2 INR Date: 03/17/22 Recheck Date: 04/24/22 Dose Instruction: TAKE 1 & 1/2 (ONE & ONE-HALF) TABLETS BY MOUTH ONCE DAILY Patient Comments: HOLD [address] Juarez Rx Instructions: TAKE 1 & 1/2 (ONE & ONE-HALF) TABLETS BY MOUTH ONCE DAILY Date of admission: 01/13/25 17:58 Primary Care Provider: Ricardo Freeman Admitting Provider: Rah Carvalho Attending physician on admission: Rah Carvalho
--- NOTE | 2025-01-28 14:13 | PC.NURSE ---
Reviewed home medications and education with the patient. IVs removed, pt discharged with son to personal vehicle.
== END 2025-01-28 13:55 | disposition home health service (06) | DRG 189 ==
LOC: ANHIMU 01-15 09:40 → ANH2MED 01-29 09:41
PROVIDERS: Internal Medicine Pulmonary Disease; Nurse Practitioner Acute Care; Nurse Practitioner Gerontology; Physician Assistant; Admitting Provider Internal Medicine; PCP Internal Medicine; Visit Provider Family Medicine
PROC: 4A023N7 Measurement of Cardiac Sampling and Pressure, Left Heart, Percutaneous Approach (ICD-10-PCS; CPT 93452; principal; 2025-01-13 10:00)
DX: J95.821 Acute postprocedural respiratory failure (principal); I26.99 Other pulmonary embolism without acute cor pulmonale; J10.00 Influenza due to other identified influenza virus with unspecified type of pneumonia; T82.855A Stenosis of coronary artery stent, initial encounter; J44.1 Chronic obstructive pulmonary disease with (acute) exacerbation; I82.443 Acute embolism and thrombosis of tibial vein, bilateral; I82.453 Acute embolism and thrombosis of peroneal vein, bilateral; J44.0 Chronic obstructive pulmonary disease with (acute) lower respiratory infection; I25.10 Atherosclerotic heart disease of native coronary artery without angina pectoris; I12.9 Hypertensive chronic kidney disease with stage 1 through stage 4 chronic kidney disease, or unspecified chronic kidney disease; I48.0 Paroxysmal atrial fibrillation; I71.40 Abdominal aortic aneurysm, without rupture, unspecified; N18.31 Chronic kidney disease, stage 3a; D64.9 Anemia, unspecified; I73.9 Peripheral vascular disease, unspecified; E03.9 Hypothyroidism, unspecified; E78.00 Pure hypercholesterolemia, unspecified; K21.9 Gastro-esophageal reflux disease without esophagitis; M81.0 Age-related osteoporosis without current pathological fracture; G47.33 Obstructive sleep apnea (adult) (pediatric); F41.9 Anxiety disorder, unspecified; Z96.611 Presence of right artificial shoulder joint; Z20.822 Contact with and (suspected) exposure to COVID-19; Z86.711 Personal history of pulmonary embolism; Z86.718 Personal history of other venous thrombosis and embolism; Z85.528 Personal history of other malignant neoplasm of kidney; Z79.02 Long term (current) use of antithrombotics/antiplatelets; Z79.01 Long term (current) use of anticoagulants; Z90.5 Acquired absence of kidney; Z95.820 Peripheral vascular angioplasty status with implants and grafts; Z95.5 Presence of coronary angioplasty implant and graft; Z87.891 Personal history of nicotine dependence
CPT/HCPCS: 36415; 36600; 71045; 71250; 71275; 80048; 80053; 82746; 82805; 82948; 83605; 83735; 83880; 84145; 84443; 84484; 85018; 85025; 85027; 85610; 85730; 87040; 87637; 87641; 93306; 93308; 93458; 93970; 94002; 94618; 94640; 94667; 94668; 94669; 94762; 96375; 97110; 97162; 97166; 97530; 97535; A9270; C1769; C1887; C1894; J0456; J0692; J0696; J1200; J1644; J1940; J2003; J2185; J2250; J2305; J2405; J2919; J3010; J7030; J7040; J7512; Q9967

== ENCOUNTER 2025-02-11 17:29 | Inpatient (IN) | payer OTHER, SELFPAY ==
--- NOTE | ~2025-02-11 | US_ITS ---
EXAMINATION:US venous doppler LE BI INDICATION:Bilateral leg swelling TECHNIQUE: Multiple grayscale, color flow and Doppler images of the right and left lower extremity de ep venous systems were obtained and reviewed. COMPARISON:01/15/2025 FINDINGS: The common femoral, superficial femoral and popliteal veins demonstrate normal respiratory variation, augmentation and compressibility. Color flow is also seen within the posterior tibial, pe roneal, greater saphenous and profunda veins. IMPRESSION: 1: No lower extremity deep venous thrombosis. Reviewed, dictated and finalized at location A.
--- NOTE | ~2025-02-11 | XR_ITS ---
CHEST RADIOGRAPH CLINICAL HISTORY: SOA . COMPARISON: 01/27/2025 TECHNIQUE: Single portable view of the chest. FINDINGS The cardiomediastinal silhouette is unremarkable. The lungs are clear. IMPRESSION: No focal infiltrate or effusion. Reviewed, dictated and finalized at location A.
--- NOTE | ~2025-02-11 | CT_ITS ---
CLINICAL INDICATION: Diffuse abdominal pain and renal failure COMPARISON: 11/25/2024. TECHNIQUE: Multiple contiguous axial images of the abdomen and pelvis were performed without the admi nistration of intravenous contrast The dose-length product (DLP) was 362.97 mGy-cm. Automated exposure control and iterative reconstruction technique were employed. FINDINGS/OBSERVATIONS: Visualized lower thorax: Left basilar consolidation, an interval change from prior. The right lung base is clear. The heart is within the upper limits of normal for size, without pericardial effusion. Small Hiatal Hernia Is Present. Liver: The liver demonstrates homogeneous attenuation and is not enlarged. Gallbladder and biliary system: The gallbladder is surgically absent. Pancreas: Limited evaluation of the pancreas secondary to the lack of intravenous contrast. Spleen: Multiple splenules are noted within the left upper quadrant. Kidneys: The right kidney is unremarkable, without hydronephrosis or renal calculi. The left kidney is surgica lly absent. Adrenal glands: Unremarkable. Gastrointestinal tract: Redemonstration of a bowel containing nonobstructing supraumbilical hernia. Multiple loops of dilated fluid-filled colon are identified suggesting a diarrhea like illness for wh ich clinical correlation is needed. Appendix: The appendix is not definitively visualized. However, no pericecal inflammatory change is identified suggest the presence of acute appendicitis. Vasculature: Aneurysmal dilatation of the distal infrarenal abdominal aorta measuring 4 cm in greatest dimension, largely unchanged from previous examination (given changes in positioning and technique). Densely calcified atherosclerotic disease within the infrarenal abdominal aorta. A right femoral gortex graft is present. Lymph nodes: Limited evaluation without intravenous contrast Pelvic structures: The bladder is only minimally distended, and otherwise unremarkable. The uterus is atrophic or surgically absent.. Body wall and musculoskeletal: Small fat-containing right inguinal hernia. Age-appropriate degenerative disease within the lumbosacral spine. IMPRESSION: Left basilar consolidation, an interval change from prior. Findings within the colon suggesting a diarrheal illness, for which clinical correlation is needed. Reviewed, dictated and finalized at location A. IMPRESSION: Left basilar consolidation, an interval change from prior. Findings within the colon suggesting a diarrheal illness, for which clinical co rrelation is needed.
--- NOTE | ~2025-02-11 | US_ITS ---
US renal BI 02/12/2025 11:13 Procedure: Realtime transabdominal ultrasound of the kidneys and bladder. Indication: Acute renal insufficiency. Status post left nephrectomy. Comparison: CT dated 02/11/2025 Findings: There is mild right renal hydronephrosis. Right kidney is otherwise unremarkable without di screte mass. Right kidney measures 12.4 cm. Left kidney is surgically absent. Bladder is unremarkable . Impression: 1: Mild right hydronephrosis. Reviewed, dictated and finalized at location A. Impression: 1: Mild right hydronephrosis.
[2025-02-11 17:34] VITALS: BP 130/67; PULSE 96; RESP 16; TEMP 36.6; O2SAT 99
--- NOTE | 2025-02-11 17:51 | ECG_ITS ---
Test Date: 2025-02-11 18:39:40 Measurements Intervals [place] Rate: 91 P: 60 NH: 202 QRS: 40 QRSD: 115 T: 105 QT: 384 QTc: 473 Interpretive Statements SINUS RHYTHM BORDERLINE AV CONDUCTION DELAY INTRAVENTRICULAR CONDUCTION DELAY MINIMAL Q WAVES- INFERIOR LEADS ANTEROSEPTAL INFARCT, AGE INDETERMINATE BORDERLINE ST-T WAVE ABNORMALITY- DIFFUSE LEADS BASELINE ARTIFACT- I, II, III, AR, AVL, V1 ABNORMAL ECG Compared to ECG 11/25/2024 09:06:01 NO SIGNIFICANT CHANGE Electronically Signed On 02-11-2025 20:40:33 CDT by Abdulkadir Lucas D.O.
--- OUTSIDE RECORDS SUMMARY | 2025-02-11 17:55 | XMS_ITS | Clinical Summary ---
Author Organization [facility] Address [address] [place] [address] Care Team Providers Care Manager Long Term Care Name Role Phone Ricardo Freeman DO Primary Care Provider [phone] Allergies No known active allergies Medications oxybutynin XL (DITROPAN XL) 15 mg 24 hr tablet take 1 tablet by oral route every day 0 0 01/20/20 16 Active Additional Information Patient taking differently:15 mgoral Every morning, Indications: Bladder Hyperactivity, Informant: Self, Reported on 12/31/2024 levothyroxine (SYNTHROID) 88 mcg tabletIndications: hypothyroidism Take 1 tablet (88 mcg total) by mouth investigator operator before breakfast Active albuterol HFA (PROVENTIL HFA,VENTOLIN HFA,PROAIR HFA) 90 mcg/actuation inhalerIndications :Chronic Obstructive Pulmonary Disease Inhale 2 puffs every 6 (six) hours as needed for wheezing Active Stiolto Respimat 2.5-2.5 mcg/actuation inhalerIndications :Bronchospasm Prevention with COPD Inhale 2 puffs every morning 04/08/20 22 Active folic acid (FOLVITE) 1 mg tabletIndications: For supplement Take 1 tablet (1,000 mcg total) by mouth every morning 12/06/19 23 Active zoledronic acid 4 mg recon solnIndications:estella bladimir Infuse 1 Dose into a venous catheter once Yearly - last October 2024 Active ondansetron ODT (ZOFRAN-ODT) 4 mg disintegrating tabletIndications: Prevention of Post-Operative Nausea and Vomiting Take 1 tablet (4 mg total) by mouth every 8 (eight) hours as needed for nausea or vomiting 20 tablet 12/01/19 24 Active carvediloL (COREG) 25 mg tabletIndications: hypertension Take 1 tablet (25 mg total) by mouth 2 (two) times a day with meals Active felodipine (PLENDIL) 10 mg 24 hr tabletIndications: hypertension Take 1 tablet (10 mg total) by mouth every morning Active methenamine (HIPREX) 1 gram tabletIndications: Prophylaxis, Medical,UTI prevention Take 1 tablet (1,000 mg total) by mouth 2 (two) times a day 03/01/20 24 Active clopidogreL (PLAVIX) 75 mg tabletIndications: DVT L leg and lung, heart stent Take 1 tablet (75 mg total) by mouth every morning 90 tablet 3 05/24/20 24 Active warfarin (COUMADIN) 3 mg tabletIndications: Venous Thrombosis Take 1 tablet (3 mg total) by mouth every evening Active rosuvastatin (CRESTOR) 40 mg tablet Take 1 tablet by mouth once daily 90 tablet 2 07/22/20 24 Active Additional Information Patient taking differently:40 mg oralEvery morning, Indications: hyperlipidemia, Informant: Self, Reported on 12/31/2024 lansoprazole (PREVACID) 15 mg capsuleIndications :GERD Take 1 capsule (15 mg total) by mouth daily as needed Active isosorbide mononitrate ER (IMDUR) 30 mg 24 hr tabletIndications: 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 Take 1 tablet (30 mg total) by mouth daily 30 tablet 11 11/01/20 24 025 Active Additional Information Patient taking differently:30 mg [...] min.) 25 tablet 11 11/01/20 24 Active Additional Information Patient taking differently:0.4 mg sublingual Every 5 min PRN, chest pain, May repeat every 5 min up to 3 doses in 15 min.,Indications: acute episode of anginal pain, Informant: Self, Reported on 12/31/2024 ranolazine ER (RANEXA) 500 mg 12 hr tabletIndications: 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 Take 1 tablet by mouth twice daily 180 tablet 3 12/23/19 25 Active Additional Information Patient taking differently: 500 mg oral 2 times daily, Indications: prevention of anginal pain in coronary artery disease, Informant: Self, Reported on 12/31/2024 acetaminophen (TYLENOL) 500 mg tabletIndications: Pain Take 2 tablets (1,000 mg total) by mouth every 6 (six) hours as needed for pain Active calcium carbonate (TUMS) 500 mg (200 mg elemental calcium) chewable tabletIndications: Heartburn Take 2 tablet/chew tab (1,000 mg total) by mouth daily as needed for indigestion or heartburn Active Active Problems Problem Noted Date Diagnosed [...] therapy Assessment & Plan (12/21/2023 1:27 PM EMULSIFICATION OPERATOR): Continue risk factor modifications and continue annual [...] surveillance. Assessment & Plan (12/27/2022 8:50 AM EMULSIFICATION OPERATOR): Impression: Patient has a 3.3 cm infrarenal abdominal aortic aneurysm seen on a CT abdomen pelvis in September 2022. She remains asymptomatic. Plan: We will continue to monitor with an abdominal duplex in September. 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 Patient denies any claudication symptoms. Follow up in 6 months for routine surveillance with a fem-fem duplex continue aspirin Plavix and statin therapy. 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 Sheldon in 2014. Patient denies any worsening symptoms of claudication, ischemic rest pain or ulcerations to her lower extremity. Plan: Patient to follow-up with an arterial duplex during her postop venous duplex scans. History of DVT (deep vein thrombosis) 11/29/2022 Assessment & Plan (11/29/2022 10:06 AM EMULSIFICATION OPERATOR): Impression: Patient has a history of a [...] 05/19/2023. Assessment & Plan (12/27/2022 8:59 AM EMULSIFICATION OPERATOR): Impression: Patient continues to complain of pain [...] procedure. Assessment & Plan (11/29/2022 10:00 AM EMULSIFICATION OPERATOR): Impression: Patient complains of pain to left [...] needed. Assessment & Plan (12/27/2022 8:48 AM EMULSIFICATION OPERATOR): Impression: Patient has mild bilateral internal carotid arteries. She remains asymptomatic. Plan: Patient has mild carotid stenosis seen on duplex. No longer require surveillance. Follow up as needed. Encourage patient to notify the office or present to the ED if she experiences stroke-like symptoms. Patient voices understanding. Assessment & Plan (11/29/2022 10:30 AM EMULSIFICATION OPERATOR): Impression: Patient has a history of bilateral carotid artery stenosis being followed by her manager sterile. Patient requesting the office to monitor. Patient [...] artery disease of n ative artery of lovelock heart with stable angina pectoris 10/01/2015 Overview (02/17/2017): Coronary artery disease Preoperative state 02/20/2015 Overview (02/17/2017): Pre-operative cardiovascular examination Hypertension 02/20/2015 Overview (02/17/2017): Hypertension Assessment & Plan (06/21/2023 11:15 AM CDT): Stable continue lisinopril 10 mg. Assessment & Plan (12/27/2022 9:05 AM EMULSIFICATION OPERATOR): Impression: Chronic hypertension. Plan: Continue Coreg and lisinopril. Assessment & Plan (11/29/2022 10:32 AM EMULSIFICATION OPERATOR): Impression: Chronic hypertension, controlled with Coreg and lisinopril. Plan: Continue blood pressure management with Coreg and lisinopril as per primary care provider/cardiology. Renal insufficiency 02/20/2015 Overview (02/17/2017): Renal insufficiency Ventricular premature beats 02/20/2015 Overview (02/17/2017): PVCs (premature ventricular contractions) History of tobacco abuse 02/20/2015 Overview (02/17/2017): Former tobacco use Hyperlipidemia LDL goal <70 02/20/2015 Overview (02/17/2017): High cholesterol Peripheral arterial occlusive disease 02/20/2015 Overview (02/17/2017): PAD (peripheral artery disease) [...] Bilateral carotid bruits Deep vein thrombosis (DVT) 02/20/2015 Overview (02/17/2017): DVT (deep venous thrombosis) History of anticoagulant therapy 02/20/2015 Overview (02/17/2017): Chronic anticoagulation Retroperitoneal fibrosis 02/20/2015 Overview (02/17/2017): Retroperitoneal fibrosis Leukocytosis 08/19/2014 Exomphalos 07/04/2012 Allergic rhinitis 04/24/2012 Esophageal reflux 04/24/2012 Resolved Problems Problem Noted Date Diagnosed Date Resolved Date Atherosclerosis of aorta (CMS/HCC) 12/26/2011 12/27/2022 Encounters Date Type Department Care Team Description 01/21/2025 Orders Only [facility] Medical Group Cardiology [address] [place] [address] Gosia Dalal, CLINT 01/16/2025 Telephone [place] [facility] ([facility]) - [facility] Minimally Invasive Surgery [address] [place] [address] Advanced Medicine 12th Floor, [place] [address] Kiara Reeder, ZAFAR 01/15/2025 Orders Only [facility] Health Information Management [address] [place] [address] Umang Galicia MD 01/01/2025 Telephone [place] [facility] ([facility]) - [facility] Minimally Invasive Surgery [address] [facility] [address] [facility] 12th Floor, [place] [address] Kiara Reeder, ZAFAR 12/31/2024 1:00 PM EMULSIFICATION OPERATOR Pre-Admission Testing [facility] Center for Preoperative Assessment and Planning [facility] ([facility]) [address] [place] [address] Preoperative testing (Primary Dx) 12/31/2024 Telephone [facility] Advanced [facility] ([facility]) - [facility] Minimally Invasive Surgery [address] [facility] 12th Floor, [place] [address] Jorge Manning MD Medical Question/Miscellaneou s 12/31/2024 Telephone [facility] Medical Group Cardiology [address] [place] [address] Ragini Velasco MD cardiac clearance 12/30/2024 8:03 AM EMULSIFICATION OPERATOR - 12/30/2024 11:59 PM EMULSIFICATION OPERATOR [facility] [address] [place] [address] Peripheral arterial occlusive disease; Other specified symptoms and signs involving the circulatory and respiratory systems Discharge Disposition: Discharge to home or self care 12/30/2024 8:00 AM EMULSIFICATION OPERATOR - 12/30/2024 11:59 PM EMULSIFICATION OPERATOR [facility] [address] [place] [address] Peripheral arterial occlusive disease; Other specified symptoms and signs involving the circulatory and respiratory systems Discharge Disposition: Discharge to home or self care 12/26/2024 Telephone [facility] ([facility]) - [facility] Minimally Invasive Surgery [address] [facility] 12th Floor, [place] [address] Kiara Reeder, ZAFAR 12/23/2024 Telephone [facility] Advanced [facility] ([facility]) [facility] Minimally Invasive Surgery Critical access hospital[facility] 12th Floor, [place] [address] Jorge Manning MD Med Management 12/16/2024 Orders Only [facility] Medical [facility] Vascular at [address] [place] [phone] Katarzyna Pereira MD Peripheral arterial occlusive disease (Primary Dx); Other specified symptoms and signs involving the circulatory and respiratory systems 12/13/2024 9:00 AM EMULSIFICATION OPERATOR Office Visit [facility] Medical [facility] Cardiology [address] [place] [address] Ragini Velasco MD 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 (CMS/HCC) (Primary Dx); Primary hypertension; Chronic anticoagulation; Peripheral arterial occlusive disease; Preop cardiovascular exam 12/11/2024 7:53 AM EMULSIFICATION OPERATOR - 12/11/2024 11:59 PM EMULSIFICATION OPERATOR Hospital Encounter [facility] Rad[facility] [address] [place] [address] Discharge Disposition: Discharge to home or self care 12/11/2024 7:53 AM EMULSIFICATION OPERATOR - 12/11/2024 11:59 PM EMULSIFICATION OPERATOR Hospital Encounter [facility] [address] [place] [address] 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 (CMS/HCC) Discharge Disposition: Discharge to home or self care 12/11/2024 7:52 AM EMULSIFICATION OPERATOR - 12/11/2024 11:59 PM EMULSIFICATION OPERATOR Hospital Encounter [facility] [address] [place] [address] Discharge Disposition: Discharge to home or self care 12/11/2024 7:51 AM EMULSIFICATION OPERATOR - 12/11/2024 11:59 PM EMULSIFICATION OPERATOR Hospital Encounter [facility]) [address] [place] [address] 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 (CMS/HCC) Discharge Disposition: Discharge to home or self care 12/10/2024 Telephone [facility] Medical [facility] Cardiology [address] [place] [address] Ragini Velasco MD 12/05/2024 Telephone [facility] Home Care Services [address] [place] [address] [address] [place] [address] Unknown, [facility] 11/15/2024 Telephone [facility] Medical [facility] Cardiology [address] [place] [address] Ragini Velasco MD 11/14/2024 8:15 AM EMULSIFICATION OPERATOR Ancillary Procedure [facility] Medical [facility] Cardiology [address] [place] [address] 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 ([facility]/HCC); Chest pressure from Last 3 Months Immunizations Immunization Administration [...] retroperitoneal fibrosis, status post left nephrec; Comments: [facility] 02/20/2015 - Hx Other Medical glaucoma, JANNY, obesity, hypercholesterolemia, dent; Comments: [facility] 02/20/2015 - Hypertension HLD (hyperlipidemia) Sleep [...] on file Legal Sex Female 2:59 AM EMULSIFICATION OPERATOR Gender Identity Not on file Sexual Orientation Not on file Obstetrics History Last Filed Vital Signs Vital Sign Reading Time Taken Comments Blood Pressure 133/70 12/31/2024 1:22 PM EMULSIFICATION OPERATOR Pulse 71 12/31/2024 1:20 PM EMULSIFICATION OPERATOR Temperature 37.1 C (98.7 F) 06/28/2024 9:02 AM CDT Respiratory Rate 18 12/31/2024 1:20 PM EMULSIFICATION OPERATOR Oxygen Saturation 98% 12/31/2024 1:20 PM EMULSIFICATION OPERATOR Inhaled Oxygen Concentration - - Weight 73.4 kg (161 lb 13.1 oz) 12/31/2024 5:14 PM EMULSIFICATION OPERATOR Height 157.5 cm (5' 2 ) 12/31/2024 1:20 PM EMULSIFICATION OPERATOR Body Mass Index 29.6 12/31/2024 1:20 PM EMULSIFICATION OPERATOR Plan of Treatment Upcoming Encounters Date Type Department Care Team (Late st Contact Info) Description 12/31/2024 11:59 PM EMULSIFICATION OPERATOR Anesthesia Event [facility] Operating Room [address] [place] [address] Haley Rodriguez, CLINT [address] [address] 04/29/2025 Hospital Encounter [facility] Operating Room [address] [place] [address] Jorge Manning MD [address] [place] [address] Scheduled Procedures Name Priority Associated Diagnoses Date/Ti [...] 11/16/2016 Well Visit 65+ 2021 Influenza Vaccine (Season Ended) 2025 08/26/2020, 10/23/2019, 08/13/2019, Additional history exists Fall Risk Assessment 12/31/2025 12/31/2024, 08/21/20 Colon Cancer Screening-Colonoscopy 01/30/2027 01/30/2017 Colon Cancer Screening-CT Colonography Discontinued 01/30/2017 Colon Cancer Screening-DNA Stool Discontinued 01/31/20 Colon Cancer Screening-FIT Discontinued 01/30/2017 Colon Cancer Screening-Sigmoidoscopy Discontinued 01/30/2017 Zoster Vaccine Completed 10/30/2018, 08/08/2018 Medical Devices Implanted Type Area Antisqueak Chalker Device Identifier Shelf Expiration Date Model / Serial / Lot Graft Graft Femoral Description:2014 Stent Implanted:Qty: 1 Stent Coronary Artery Description:2014 Procedures Procedure Name Priority Date/Time Associated Diagnosis Comments CARDIOLOGY DOCUMENT SCAN Routine 01/20/2025 3:04 PM CDT CARDIOLOGY DOCUMENT SCAN Routine 01/17/2025 3:03 PM EMULSIFICATION OPERATOR CARDIOLOGY DOCUMENT SCAN Routine 01/16/2025 3:00 PM EMULSIFICATION OPERATOR CARDIOLOGY DOCUMENT SCAN Routine 01/15/2025 2:57 PM EMULSIFICATION OPERATOR SCAN - RADIOLOGY/IMAGING 01/15/2025 CARDIOLOGY DOCUMENT SCAN Routine 01/14/2025 2:21 PM EMULSIFICATION OPERATOR EGFR Routine 12/31/2024 2:50 PM EMULSIFICATION OPERATOR Preoperative testing DIFFERENTIAL AUTO Routine 12/31/2024 2:5 0 PM EMULSIFICATION OPERATOR Preoperative testing COMPREHENSIVE METABOLIC PANEL Routine 12/31/2024 2:50 PM EMULSIFICATION OPERATOR Preoperative testing CBC WITH AUTO DIFFERENTIAL Routine 12/31/2024 2:50 PM EMULSIFICATION OPERATOR Preoperative testing TYPE AND SCREEN 14 DAY Routine 12/31/2024 2:50 PM EMULSIFICATION OPERATOR Preoperative testing US PHIL Schedule Routine, Read Routine (OP Routine) 12/30/2024 11:41 AM EMULSIFICATION OPERATOR Peripheral arterial occlusive disease Other specified symptoms and signs involving the circulatory and respiratory systems US ARTERIAL DUPLEX LOWER EXTREMITY BILATERAL Routine 12/30/2024 10:12 AM EMULSIFICATION OPERATOR Peripheral arterial occlusive disease Other specified symptoms and signs involving the circulatory and respiratory systems POCT LIPID PANEL Routine 12/13/2024 9:08 AM EMULSIFICATION OPERATOR 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 (CMS/HCC) PET/CT MYOCARDIAL METABOLIC EVALUATION FOR VIABILITY Schedule Routine, Read Routine (OP Routine) 12/11/2024 12:47 PM EMULSIFICATION OPERATOR 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 (CMS/HCC) NM MPI SPECT SINGLE STUDY (REST) VIABILITY Schedule Routine, Read Routine (OP Routine) 12/11/2024 9:27 AM EMULSIFICATION OPERATOR 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 (CMS/HCC) NM MPI SPECT (REST AND/OR STRESS) MULTIPLE STUDIES Schedule Routine, Read Routine (OP Routine) 11/14/2024 10:14 AM EMULSIFICATION OPERATOR 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 (CMS/HCC) Chest pressure CT VIRTUAL COLONOSCOPY DIAGNOSTIC W CONTRAST Routine 01/30/2017 2:38 PM CDT from Last 3 Months or Most Recently Relevant to Health Maintenance Results * Cardiology Document Scan (01/20/2025 3:04 PM CDT) Anatomical Region Laterality Modality Other us Rah Carvalho MD CV CARDIAC SERVICES PROCEDURES F inal Result * Cardiology Document Scan (01/17/2025 3:03 PM EMULSIFICATION OPERATOR) Anatomical Region Laterality Modality Other Umang Galicia MD CV CARDIAC SERVICES PRO CEDURES Final Result * Cardiology Document Scan (01/16/2025 3:00 PM EMULSIFICATION OPERATOR) Anatomical Region Laterality Modality Other Rah Carvalho MD CV CARDIAC SERVICES PROCEDURES F inal Result * Cardiology Document Scan (01/15/2025 2:57 PM EMULSIFICATION OPERATOR) Anatomical Region Laterality Modality Other Umang Galicia MD CV CARDIAC SERVICES PRO CEDURES Final Result * SCAN - RADIOLOGY/IMAGING (01/15/2025) Anatomical Region Laterality Modality Other Umang Galicia MD Edited Result - Final * Cardiology Document Scan (01/14/2025 2:21 PM EMULSIFICATION OPERATOR) Anatomical Region Laterality Modality Other Gosia Dalal NP CV CARDIAC SERVICES PROCEDUR ES Final Result * TYPE AND SCREEN 14 DAY (12/31/2024 2:50 PM EMULSIFICATION OPERATOR) ABO Rh O Positive [facility], indirect Negative [facility] Blood 12/31/2024 2:50 PM EMULSIFICATION OPERATOR 12/31/2024 3:25 PM EMULSIFICATION OPERATOR Narrative ELVIN [facility] - 12/31/2024 4:13 PM EMULSIFICATION OPERATOR Has the patient had Daratumumab or Isatuximab in the past 6 months?->No Is this test being ordered in advance for a procedure?->Yes Expected date of procedure:->01/02/25 Has the patient been transfused in the past 3 months?->No Has the patient been in the past 3 months?->No Corey Stanley NP LAB BLOOD BANK TEST ORDE TASNEEM Final Result Performing Organization Address [facility] Co de Phone Number ELVIN [facility] [place] [address] * (ABNORMAL) eGFR (12/31/2024 2:50 PM EMULSIFICATION OPERATOR) eGFR 36(L) >=60 mL/min/1. 73 m2 Comment: [...] last reviewed 2021. Blood 12/31/2024 2:50 PM EMULSIFICATION OPERATOR 12/31/2024 3:25 PM EMULSIFICATION OPERATOR Corey Stanley NP LAB BLOOD ORDERABLES Fin al Result Performing Organization Address City/[facility]/ZIP Co de Phone Number [facility] [employer] [place] [address] * (ABNORMAL) Differential, auto (12/31/2024 2:50 PM EMULSIFICATION OPERATOR) Neutrophil abs 9.4(H) 1.5 - 6.5 K/cumm Imm gran abs 0.1 0.0 - 0.1 K/cumm [facility] Lymphocyte abs 4.3(H) 0.8 - 3.3 K/cumm [facility] Monocyte abs 1.4(H) 0.2 - 0.8 K/cumm [facility] Eosinophil abs 0.0 0.0 - 0.5 K/cumm [facility] Basophil abs 0.0 0.0 - 0.1 K/cumm [facility] Neutrophil pct 62.0 % [facility] Comment: Interpretive Data Percent cell count reference ranges are not reported, since discordance with absolute values may lead to misinterpretation of CBC data. Current Interpretive Data was last revised on 2018. Imm gran pct 0.5 % [facility] Comment: Interpretive Data Percent cell count reference ranges are not reported, since discordance with absolute values may lead to misinterpretation of CBC data. Current Interpretive Data was last revised on 2018. Lymphocyte pct 28.4 % [facility] Comment: Interpretive Data Percent cell count reference ranges are not reported, since discordance with absolute values may lead to misinterpretation of CBC data. Current Interpretive Data was last revised on 2018. Monocyte pct 8.9 % [facility] Comment: Interpretive Data Percent cell count reference ranges are not reported, since discordance with absolute values may lead to misinterpretation of CBC data. Current Interpretive Data was last revised on 2018. Eosinophil pct 0.1 % [facility] Comment: Interpretive Data Percent cell count reference ranges are not reported, since discordance with absolute values may lead to misinterpretation of CBC data. Current Interpretive Data was last revised on 2018. Basophil pct 0.1 % [facility] Comment: Interpretive Data Percent cell count reference ranges are not reported, since discordance with absolute values may lead to misinterpretation of CBC data. Current Interpretive Data was last revised on 2018. Blood 12/31/2024 2:50 PM EMULSIFICATION OPERATOR 12/31/2024 3:26 PM EMULSIFICATION OPERATOR us Corey Stanley NP LAB BLOOD ORDERABLES Fin al Result [facility] Department [place] [address] * (ABNORMAL) CBC with auto differential (12/31/2024 2:50 PM EMULSIFICATION OPERATOR) [facility] WBC 15.1(H) 3.8 - 9.9 K/cumm Hgb 10.1(L) 11.9 - 15.5 g/dL [facility] Hct 31.4(L) 35.6 - 45.5 % [facility] Plt 355 150 - 400 K/cumm [facility] MPV 9.9 9.1 - 12.3 fL [facility] RBC 3.30(L) 3.90 - 5.20 M/cumm [facility] MCV 95.2 81.3 - 96.4 fL [facility] MCH 30.6 27.1 - 33.3 pg [facility] MCHC 32.2(L) 32.3 - 35.7 g/dL [facility] RDW CV 20.1(H) 11.1 - 14.9 % [facility] RDW SD 69.9(H) 35.7 - 48.1 fL [facility] NRBC abs 0.00 0.00 - 0.01 K/cumm [facility] Blood 12/31/2024 2:50 PM EMULSIFICATION OPERATOR 12/31/2024 3:26 PM EMULSIFICATION OPERATOR Corey Stanley NP LAB BLOOD ORDERABLES Fin al Result Performing Organization Address City/State/[facility] Co de Phone Number [facility] One [facility] Department [place] [address] * (ABNORMAL) Comprehensive metabolic panel (12/31/2024 2:50 PM EMULSIFICATION OPERATOR) [facility] Sodium 139 135 - 145 mmol/L Potassium, pl 5.1(H) 3.3 - 4.9 mmol/L [facility] Chloride 107 97 - 110 mmol/L [facility] CO2 21(L) 22 - 32 mmol/L [facility] Anion gap 11 2 - 15 mmol/L [facility] BUN 23 6 - 25 mg/dL [facility] Creatinine 1.56(H) 0.60 - 1.10 mg/dL [facility] Glucose 115 70 - 199 mg/dL [facility] Comment: Interpretive Data Fasting glucose >/= [...] 2022. Calcium 9.3 8.5 - 10.3 mg/dL [facility] Bilirubin, total 0.3 0.1 - 1.2 mg/dL [facility] Protein, pl 7.9 6.5 - 8.5 g/dL [facility] Albumin 4.0 3.5 - 5.0 g/dL [facility] Alk phos 99 40 - 130 Units/L [facility] ALT 16 7 - 45 Units/L [facility] AST 18 10 - 45 Units/L [facility] Blood 12/31/2024 2:50 PM EMULSIFICATION OPERATOR 12/31/2024 3:25 PM EMULSIFICATION OPERATOR us Corey Stanley NP LAB BLOOD ORDERABLES Fin al Result Performing Organization Address City/State/[facility] Co de Phone Number [facility] One [facility] Department [place] [address] * US PHIL (12/30/2024 11:41 AM EMULSIFICATION OPERATOR) Anatomical Region Laterality Modality Vascular N/A Ultrasound 12/30/2024 8:29 AM EMULSIFICATION OPERATOR Narrative 12/30/2024 4:06 PM EMULSIFICATION OPERATOR Lower Extremity Arterial Doppler Report Patient Name: GENARO GAYLE [place] : 1955 Study Date: 12/30/2024 8:29:00 AM Gender: F Multi Operation Machine Operator: Juan Zazueta RDMS, RVT Ref Provider: KATARZYNA PEREIRA Quality: Adequate Order Provider: KATARZYNA PEREIRA PROCEDURES: Arterial Report: Ankle - Brachial Index Doppler exam. INDICATIONS: Peripheral Vascular Disease, Unspecified and Atherosclerosis of [place] Arteries of Extremities with Intermittent Claudication, Bilateral Leg. HISTORY: s/p right to left fem-fem bypass graft in 2015. Risk Factors: Previous smoker (quit about 9 years ago), hypertension, hyperlipidemia, heart disease, lung disease. COMPARISONS: The previous exam was completed on 06-19-2024. MEASUREMENTS: Right Value Left Value Rt Brachial Pressure 161 mmHg Lt Brachial Pressure [address] WORKER Pressure [address] WORKER Pressure 176 mmHg Rt DPA Pressure 154 [...] By: Vick Pereira MD 12/30/2024 3:09:59 PM EMULSIFICATION OPERATOR Procedure Note Vick Pereria MD - 12/30/2024 Lower Extremity Arterial Doppler Report Patient Name: GENARO GAYLE MI : 1955 Study Date: 12/30/2024 8:29:00 AM Gender: F Multi Operation Machine Operator: Juan Zazueta RDMS, RVT Ref Provider: KATARZYNA [...] mmHg Lt Brachial Pressure 158 mmHg Rt RIGHT OF WAY WORKER Pressure 180 mmHg Lt RIGHT OF WAY WORKER Pressure 176 mmHg Rt DPA Pressure 154 [...] By: Vick Pereira MD 12/30/2024 3:09:59 PM EMULSIFICATION OPERATOR Katarzyna Pereira MD IMG US PROCEDURES Final Result * US Arterial Duplex Lower Extremity Bilateral (12/30/2024 10:12 AM EMULSIFICATION OPERATOR) Anatomical Region Laterality Modality Vascular Bilateral Ultrasound 12/30/2024 8:08 AM EMULSIFICATION OPERATOR Narrative 12/30/2024 4:07 PM EMULSIFICATION OPERATOR Lower Extremity Arterial Duplex Report Patient Name: GENARO GAYLE MI : 1955 (69y 2m) Gender: F Study Date: 12/30/2024 08:08:32 AM Ht(Inch): Wt(Lb): BSA: Multi Operation Machine Operator: Juan Zazueta Provider: KATARZYNA PEREIRA Quality: Adequate Ref Provider: KATARZYNA PEREIRA PROCEDURES: Arterial Report: A non-invasive vascular imaging study of the bilateral lower extremity arteries and bypass grafts was performed using B-mode ultrasound, color flow, and spectral Doppler. INDICATIONS: Atherosclerosis of [place] arteries of extremities with intermittent claudication, bilateral and Encounter for surgical aftercare following surgery on the circulatory system. HISTORY: s/p right to left fem-fem bypass graft in 2014. Risk Factors: Hypertension, Hyperlipidemia, previous smoker (quit about 9 years ago), Heart disease, Lung disease. COMPARISONS: No change compared to prior study. The previous exam was completed on 06-19-2024. MEASUREMENTS: Right Value Left Value Rt SHEET METAL SHOP SUPERVISOR Prx PSV 221.00 cm/sec Lt SHEET METAL SHOP SUPERVISOR Dst PSV 197.00 cm/sec Lt Profunda Prx [...] By: Vick Pereira MD 12/30/2024 3:12:44 PM EMULSIFICATION OPERATOR Procedure Note Vick Pereira MD - 12/30/2024 Lower Extremity Arterial Duplex Report Patient Name: GENARO GAYLE MI : 1955 (69y 2m) Gender: F Study Date: 12/30/2024 08:08:32 AM Ht(Inch): Wt(Lb): BSA: Multi Operation Machine Operator: Juan Zazueta Provider: KATARZYNA PEREIRA Quality: Adequate Ref Provider: KATARZYNA PEREIRA PROCEDURES: Arterial Report: A non-invasive vascular imaging study of the bilaterallower extremity arteries and bypass grafts was performed using B-mode ultrasound, colorflow, and spectral Doppler. INDICATIONS: Atherosclerosis of [place] arteries of extremities with intermittentclaudication, bilateral and Encounter for surgical aftercare following surgery on thecirculatory system. HISTORY: s/p right to left fem-fem bypass graft in 2015. Risk Factors: Hypertension, Hyperlipidemia, previous smoker (quit about 9years ago), Heart disease, Lung disease. COMPARISONS: No change compared to prior study. The previous exam was completed on06-19-2024. MEASUREMENTS: Right Value Left Value Rt SHEET METAL SHOP SUPERVISOR Prx PSV 221.00 cm/sec Lt SHEET METAL SHOP SUPERVISOR Dst PSV 197.00 cm/sec Lt Profunda Prx [...] By: Vick Pereira MD 12/30/2024 3:12:44 PM EMULSIFICATION OPERATOR Katarzyna Pereira MD IM US PROCEDURES Final Result * POCT lipid panel (12/13/2024 9:08 AM EMULSIFICATION OPERATOR) Cholesterol, POC 114 mg/dL HDL, POC 46 mg/dL Triglycerides, POC 136 mg/dL LDL Cholesterol POC 41 mg/dL Chol/HDL Ratio, POC 0.9 Non-HDL Cholesterol, POC 69 mg/dL Cholesterol Total, POC 114 mg/dL Capillary blood 12/13/2024 9 :08 AM EMULSIFICATION OPERATOR Ragini Velasco MD POINT OF CARE TEST ORDERA BLES Final Result * PET/CT Myocardial Metabolic Evaluation for Viability (12/11/2024 12:47 PM EMULSIFICATION OPERATOR) Anatomical Region Laterality Modality N/A Positron Emissio n Tomography (PET) 12/11/2024 5:36 PM EMULSIFICATION OPERATOR Impressions 12/11/2024 5:39 PM EMULSIFICATION OPERATOR 1. Viable myocardium in the small and [...] Jannet English M.D. Narrative 12/11/2024 5:39 PM EMULSIFICATION OPERATOR EXAMINATION: MYOCARDIAL PET/CT (METABOLISM) DATE OF STUDY: 12/11/2024 SCANNER: [facility] RADIOPHARMACEUTICAL: 10.61 mCi F-18 Fluorodeoxyglucose (FDG) i.v., [...] minutes. The study was interpreted on the [employer] workstation. At the conclusion of the study, [...] PET/CT (METABOLISM) DATE OF STUDY: 12/11/2024 SCANNER: [facility] RADIOPHARMACEUTICAL: 10.61 mCi F-18 Fluorodeoxyglucose (FDG) i.v., [...] minutes. The study was interpreted on the [employer] workstation. At the conclusion of the study, [...] Study (Rest) for Viability (12/11/2024 9:27 AM EMULSIFICATION OPERATOR) Anatomical Region Laterality Modality Body N/A Nuclear Medicine 12/11/2024 5:30 PM EMULSIFICATION OPERATOR Impressions 12/11/2024 5:36 PM EMULSIFICATION OPERATOR 1. Small size and mildly severe decreased rest perfusion defect of anterior and anteroseptal wall. 2. Normal left ventricular size and systolic function. Drs. Bojorquez and Fermin also participated in the interpretation of this examination. Please refer to the same day FDG PET for viability accession #[id number] for more information. Dictated by: Anita Quinones M.D. The radiology attending physician has personally reviewed this study, and had reviewed and/or edited this written report and agrees with it. Electronically signed by: Jannet English M.D. Narrative 12/11/2024 5:36 PM EMULSIFICATION OPERATOR EXAMINATION: MYOCARDIAL IMAGING (REST/SPECT-CT) DATE OF STUDY: [...] same day FDG PET for viability accession #[id number] for more information. Dictated by: Anita Quinones M.D. The radiology attending physician has personally reviewed this study, and had reviewed and/or edited this written report and agrees with it. Electronically signed by: Jannet English M.D. us Ragini Velasco MD IMG NM PROCEDURES Final R esult * NM MPI SPECT (Rest and/or Stress) Multiple Studies (11/14/2024 10:14 AM EMULSIFICATION OPERATOR) Anatomical Region Laterality Modality Body N/A Nuclear Medicine 11/14/2024 8:26 AM EMULSIFICATION OPERATOR Narrative 11/14/2024 12:45 PM EMULSIFICATION OPERATOR [facility] [address] [facility] [address] [address] [address] [facility] [address], [place] [address] P:[phone] P:[phone] MPI Imaging Report Patient Name: GENARO GAYLE [place] : 1955 Study Date: 11/14/2024 8:26:53 AM Gender: F Tech: [facility] Location: [facility] Provider: RAGINI VELASCO Height(Cm): 157.5 BSA: [...] Palpitations. PVD, I25.118 Atherosclerotic heart disease of [place] coronary artery with other forms of angina [...] By: Umang Galicia MD 11/14/2024 11:54:51 AM EMULSIFICATION OPERATOR Electronically Signed By: Ragini Velasco MD 11/14/2024 12:45:24 PM EMULSIFICATION OPERATOR Procedure Note Ragini Velasco MD - 11/14/2024 [facility] [address] [facility] [address] [address] [address] [facility] [id number], [place] [address] P:[phone] P:[phone] MPI Imaging Report Patient Name: GENARO GAYLE MI : 1955 Study Date: 11/14/2024 8:26:53 AM Gender: F Tech: ORION MONTANO Location: [facility] Provider: RAGINI VELASCO Height(Cm): 157.5 BSA: Weight(Kg): 79.4 BMI: 32.01 Order Provider: RAGINI VELASCO - PHYSICIAN: Referring Physician: Dr. Freeman. HCG Physician: Serafin Velasco M.D. Interpreting Physician: Serafin Velasco M.D. Stress Supervision: Umang Galicia M.D., .A.C.C. PROCEDURES: Pharmacologic SPECT Report: Myocardial perfusion imaging with Tc99M Sestamibi SPECT at rest and stresspost regadenoson (Lexiscan) infusion. INDICATIONS: Hypertension, Family Hx CAD, High Cholesterol, Former Smoker,Palpitations. PVD, I25.118 Atherosclerotic heart disease of [place] coronary artery with other formsof angina pectoris, [...] By: Umang Galicia MD 11/14/2024 11:54:51 AM EMULSIFICATION OPERATOR Electronically Signed By: Ragini Velasco MD 11/14/2024 12:45:24 PM EMULSIFICATION OPERATOR us Ragini Velasco MD IMG NM PROCEDURES [...] agrees with it. ACC# Date Time Exam [id number] Jan 30, 2017 09:38:[id number] Colonography Screen ACC# Date Time Exam [id number] Jan 30, 2017 09:38:[id number] Colonography Screen EXAMINATION: CT colonography without [...] SHAW M.D. on Jan 30 2017 5:45P [id number] Procedure Note Miscellaneous, Notinfile / Provider, MD Alicia - 04/04/2017 GRAZYNA SHAW M.D. PUNEET ALVAREZ M.D. FINAL REPORT The radiology attending physician has personally reviewed this study, and has reviewed and/or edited this written report and agrees with it. ACC# Date Time Exam [id number] Jan 30, 2017 09:38:[id number] Colonography Screen ACC# Date Time Exam [id number] Jan 30, 2017 09:38:[id number] Colonography Screen EXAMINATION: CT colonography without [...] SHAW M.D. 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
--- OUTSIDE RECORDS SUMMARY | 2025-02-11 17:55 | XMS_ITS | Clinical Summary ---
Author Organization [facility] Address [address] [place] [address] Care Team Providers Care Monotype Mechanic Name Role Phone Carlito Guerrero MD Primary Care Provider [phone] Sarabjit Velasco MD Unavailable [phone] Allergies No known active allergies Medications No [...] complete this topic Insurance [employer] Care Teams Monotype Mechanic Relationship Specialty Start Date End Date Carlito Guerrero MD [address] [place] [address] [place] [address] PCP - General INTERNAL MEDICINE 05/11/22 Sarabjit Velasco MD [address] [facility] [address] [place] [address] CARDIOVASCULAR DISEASE 05/11/22
--- OUTSIDE RECORDS SUMMARY | 2025-02-11 17:55 | XMS_ITS | Referral Summary ---
Author Organization [facility] Address [address] [place] [address] Care Team Providers Care Machine Cutter Name Role Phone Ricardo Freeman DO Primary Care Provider [phone] Encounters Date Type Department Care Team Description 01/21/2025 Orders Only [facility] Medical Group Cardiology [address] [place] [phone] Gosia Dalal NP 01/16/2025 Telephone [facility] Minimally Invasive Surgery [address] [facility] 12th Floor, [place] [phone] Kiara Reeder, ZAFAR 01/15/2025 Orders Only [facility] Health Information Management [address] [place] [address] Umang Galicia MD 01/01/2025 Telephone [facility] ([facility] Minimally Invasive Surgery [address] [facility] Advanced [facility] 12th Floor, [place] [phone] Kiara Reeder, ZAFAR 12/31/2024 Telephone [facility] ([facility] - [facility] Minimally Invasive Surgery [address] [facility] Advanced [facility] 12th Floor, [place] [phone] Jorge Manning MD Medical Question/Miscellaneou s 12/31/2024 Telephone [facility] Medical Group Cardiology [address] [place] [phone] Ragini Velasco MD cardiac clearance 12/31/2024 1:00 PM RN LPN CNA Pre-Admission Testing [facility] for Preoperative Assessment and Planning [facility] ([facility]) [address] [place] [address] Preoperative testing (Primary Dx) 12/30/2024 8:03 AM RN LPN CNA - 12/30/2024 11:59 PM RN LPN CNA Hospital Encounter [facility] Medical Office Building 2 Vascular [address] [facility] [address] [place] [address] Peripheral arterial occlusive disease; Other specified symptoms and signs involving the circulatory and respiratory systems Discharge Disposition: Discharge to home or self care 12/30/2024 8:00 AM RN LPN CNA - 12/30/2024 11:59 PM RN LPN CNA Hospital Encounter [facility] Office Building 2 Vascular [facility] [address] [address] Peripheral arterial occlusive disease; Other specified symptoms and signs involving the circulatory and respiratory systems Discharge Disposition: Discharge to home or self care 12/26/[address] [facility] Advanced Medicine ([facility]) - [facility] Minimally Invasive Surgery [address] [facility] 12th Floor, [place] [phone] Kiara Reeder RN 12/23/[address] [facility] Advanced [facility] ([facility]) - [facility] Minimally Invasive Surgery [address] [facility] 12th Floor, [place] [address] Jorge Manning MD Med Management 12/16/2024 Orders Only [facility] Medical Group Vascular at [address] [place] [address] Katarzyna Pereira MD Peripheral arterial occlusive disease (Primary Dx); Other specified symptoms and signs involving the circulatory and respiratory systems 12/13/2024 9:00 AM RN LPN CNA Office Visit [facility] Medical Group Cardiology [address] [place] [phone] Ragini Velasco MD Coronary artery disease of [place] artery of [place] heart with stable angina pectoris (CMS/HCC) (Primary Dx); Primary hypertension; Chronic anticoagulation; Peripheral arterial occlusive disease; Preop cardiovascular exam 12/11/2024 7:53 AM RN LPN CNA - 12/11/2024 11:59 PM RN LPN CNA Hospital Encounter [facility] Radiology [facility] [address] [place] [address] Discharge Disposition: Discharge to home or self care 12/11/2024 7:53 AM RN LPN CNA - 12/11/2024 11:59 PM RN LPN CNA Hospital Encounter [facility] Rad[facility] [address] [place] [address] Coronary artery disease of [place] artery of [place] heart with stable angina pectoris (CMS/HCC) Discharge Disposition: Discharge to home or self care 12/11/2024 7:52 AM RN LPN CNA - 12/11/2024 11:59 PM RN LPN CNA Hospital Encounter [facility] Radiology [facility] [address] [place] [address] Discharge Disposition: Discharge to home or self care 12/11/2024 7:51 AM RN LPN CNA - 12/11/2024 11:59 PM RN LPN CNA Hospital Encounter [facility] Radiology [facility] [address] [place] [address] Coronary artery disease of [place] artery of [place] heart with stable angina pectoris (CMS/HCC) Discharge Disposition: Discharge to home or self care 12/10/2024 Telephone [facility] Medical [facility] Cardiology [address] [place] [address] Ragini Velasco MD 12/05/2024 Telephone [facility] Home Care Services [address] [place] [address] [address] [place] [address] Unknown, [facility] 11/15/2024 Telephone [facility] Medical [facility] Cardiology [address] [place] [address] Ragini Velasco MD 11/14/2024 8:15 AM RN LPN CNA Ancillary Procedure [facility] Medical [facility] Cardiology [address] [place] [address] Coronary artery disease of [place] artery of [place] heart with stable angina pectoris (CMS/HCC); Chest pressure from Last 3 Months Allergies No known active allergies Medications oxybutynin XL (DITROPAN XL) 15 mg 24 hr tablet take 1 tablet by oral route every day 0 0 01/20/20 16 Active Additional Information Patient taking differently:15 mgoral Every morning, Indications: Bladder Hyperactivity, Informant: Self, Reported on 12/31/2024 levothyroxine (SYNTHROID) 88 mcg tabletIndications: hypothyroidism Take 1 tablet (88 mcg total) by mouth wrapper opener before breakfast Active albuterol HFA (PROVENTIL HFA,VENTOLIN [...] 24 hr tabletIndications: Coronary artery disease of [place] artery of [place] heart with stable angina pectoris Take 1 [...] 12 hr tabletIndications: Coronary artery disease of [place] artery of [place] heart with stable angina pectoris Take 1 [...] therapy Assessment & Plan (12/21/2023 1:27 PM RN LPN CNA): Continue risk factor modifications and continue annual [...] surveillance. Assessment & Plan (12/27/2022 8:50 AM RN LPN CNA): Impression: Patient has a 3.3 cm infrarenal abdominal aortic aneurysm seen on a CT abdomen pelvis in September 2022. She remains asymptomatic. Plan: We will continue to monitor with an abdominal duplex in September. Chronic venous insufficiency 12/27/2022 Atherosclerosis of [place] ar teries of extremities with intermittent claudication, bilateral legs 12/27/2022 Assessment & Plan (06/20/2024 12:12 PM CDT): Patent fem-fem bypass graft per current duplex. Patient denies any claudication symptoms. Follow up in 6 months for routine surveillance with a fem-fem duplex continue aspirin Plavix and statin therapy. 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 Sheldon in 2014. Patient denies any worsening symptoms of claudication, ischemic rest pain or ulcerations to her lower extremity. Plan: Patient to follow-up with an arterial duplex during her postop venous duplex scans. History of DVT (deep vein thrombosis) 11/29/2022 Assessment & Plan (11/29/2022 10:06 AM RN LPN CNA): Impression: Patient has a history of a [...] 05/19/2023. Assessment & Plan (12/27/2022 8:59 AM RN LPN CNA): Impression: Patient continues to complain of pain [...] procedure. Assessment & Plan (11/29/2022 10:00 AM RN LPN CNA): Impression: Patient complains of pain to left [...] needed. Assessment & Plan (12/27/2022 8:48 AM RN LPN CNA): Impression: Patient has mild bilateral internal carotid arteries. She remains asymptomatic. Plan: Patient has mild carotid stenosis seen on duplex. No longer require surveillance. Follow up as needed. Encourage patient to notify the office or present to the ED if she experiences stroke-like symptoms. Patient voices understanding. 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 Patient requesting the office to monitor. Patient [...] artery disease of n ative artery of [place] heart with stable angina pectoris 10/01/2015 Overview (02/17/2017): Coronary artery disease Preoperative state 02/20/2015 Overview (02/17/2017): Pre-operative cardiovascular examination Hypertension 02/20/2015 Overview (02/17/2017): Hypertension Assessment & Plan (06/21/2023 11:15 AM CDT): Stable continue lisinopril 10 mg. Assessment & Plan (12/27/2022 9:05 AM RN LPN CNA): Impression: Chronic hypertension. Plan: Continue Coreg and lisinopril. Assessment & Plan (11/29/2022 10:32 AM RN LPN CNA): Impression: Chronic hypertension, controlled with Coreg and [...] Diagnosed Date Resolved Date Atherosclerosis of aorta ([facility]/HCC) 12/26/2011 12/27/2022 Immunizations Immunization Administration Dates Next [...] on file Legal Sex Female 2:59 AM RN LPN CNA Gender Identity Not on file Sexual Orientation Not on file Last Filed Vital Signs Vital Sign Reading Time Taken Comments Blood Pressure 133/70 12/31/2024 1:22 PM RN LPN CNA Pulse 71 12/31/2024 1:20 PM RN LPN CNA Temperature 37.1 C (98.7 F) 06/28/2024 9:02 AM CDT Respiratory Rate 18 12/31/2024 1:20 PM RN LPN CNA Oxygen Saturation 98% 12/31/2024 1:20 PM RN LPN CNA Inhaled Oxygen Concentration - - Weight 73.4 kg (161 lb 13.1 oz) 12/31/2024 5:14 PM RN LPN CNA Height 157.5 cm (5' 2 ) 12/31/2024 1:20 PM RN LPN CNA Body Mass Index 29.6 12/31/2024 1:20 PM RN LPN CNA Plan of Treatment Upcoming Encounters Date Type Department Care Team (Late st Contact Info) Description 12/31/2024 11:59 PM RN LPN CNA Anesthesia Event [facility] Operating Room [address] [place] [address] Ashlyn Rodriguezah Daisy, [place] [address] [facility] [address] [place] [address] 04/29/2025 Hospital Encounter [facility] Operating Room [address] [place] [address] Jorge Manning MD [address] [place] [address] Scheduled Procedures Name Priority Associated Diagnoses Date/Ti me XI REPAIR INCISIONAL HERNIA - LAPAROSCOPIC ROBOTIC ASSISTED Recurrent incisional hernia with incarceration XI ROBOTIC ABDOMINAL WALL RECONSTRUCTION Recurrent incisional hernia with incarceration Medical Devices Implanted Type Area Cap Jewel Plate Assembler Device Identifier Shelf Expiration Date Model / Serial / Lot Graft Graft Femoral Description:2014 Stent Implanted:Qty: 1 Stent Coronary Artery Description:2014 Procedures Procedure Name Priority Date/Time Associated Diagnosis Comments CARDIOLOGY DOCUMENT SCAN Routine 01/20/2025 3:04 PM CDT CARDIOLOGY DOCUMENT SCAN Routine 01/17/2025 3:03 PM RN LPN CNA CARDIOLOGY DOCUMENT SCAN Routine 01/16/2025 3:00 PM RN LPN CNA CARDIOLOGY DOCUMENT SCAN Routine 01/15/2025 2:57 PM RN LPN CNA SCAN - RADIOLOGY/IMAGING 01/15/2025 CARDIOLOGY DOCUMENT SCAN Routine 01/14/2025 2:21 PM RN LPN CNA EGFR Routine 12/31/2024 2:50 PM RN LPN CNA Preoperative testing DIFFERENTIAL AUTO Routine 12/31/2024 2:5 0 PM RN LPN CNA Preoperative testing COMPREHENSIVE METABOLIC PANEL Routine 12/31/2024 2:50 PM RN LPN CNA Preoperative testing CBC WITH AUTO DIFFERENTIAL Routine 12/31/2024 2:50 PM RN LPN CNA Preoperative testing TYPE AND SCREEN 14 DAY Routine 12/31/2024 2:50 PM RN LPN CNA Preoperative testing US PHIL Schedule Routine, Read Routine (OP Routine) 12/30/2024 11:41 AM RN LPN CNA Peripheral arterial occlusive disease Other specified symptoms and signs involving the circulatory and respiratory systems VL US ARTERIAL DUPLEX LOWER EXTREMITY BILATERAL Routine 12/30/2024 10:12 AM RN LPN CNA Peripheral arterial occlusive disease Other specified symptoms and signs involving the circulatory and respiratory systems POCT LIPID PANEL Routine 12/13/2024 9:08 AM RN LPN CNA Coronary artery disease of [place] artery of [place] heart with stable angina pectoris (CMS/HCC) PET/CT MYOCARDIAL METABOLIC EVALUATION FOR VIABILITY Schedule Routine, Read Routine (OP Routine) 12/11/2024 12:47 PM RN LPN CNA Coronary artery disease of [place] artery of [place] heart with stable angina pectoris (CMS/HCC) NM MPI SPECT SINGLE STUDY (REST) VIABILITY Schedule Routine, Read Routine (OP Routine) 12/11/2024 9:27 AM RN LPN CNA Coronary artery disease of [place] artery of [place] heart with stable angina pectoris (CMS/HCC) NM MPI SPECT (REST AND/OR STRESS) MULTIPLE STUDIES Schedule Routine, Read Routine (OP Routine) 11/14/2024 10:14 AM RN LPN CNA Coronary artery disease of [place] artery of [place] heart with stable angina pectoris (CMS/HCC) Chest pressure CT VIRTUAL COLONOSCOPY DIAGNOSTIC W CONTRAST Routine 01/30/2017 2:38 PM CDT from Last 3 Months or Most Recently Relevant to Health Maintenance Results * Cardiology Document Scan (01/20/2025 3:04 PM CDT) Anatomical Region Laterality Modality Other Rah Carvalho MD CV CARDIAC SERVICES PROCEDURES F inal Result * Cardiology Document Scan (01/17/2025 3:03 PM RN LPN CNA) Anatomical Region Laterality Modality Other Umang Galicia MD CV CARDIAC SERVICES PRO CEDURES Final Result * Cardiology Document Scan (01/16/2025 3:00 PM RN LPN CNA) Anatomical Region Laterality Modality Other Rah Carvalho MD CV CARDIAC SERVICES PROCEDURES F inal Result * Cardiology Document Scan (01/15/2025 2:57 PM RN LPN CNA) Anatomical Region Laterality Modality Other Umang Galicia MD CV CARDIAC SERVICES PRO CEDURES Final Result * SCAN - RADIOLOGY/IMAGING (01/15/2025) Anatomical Region Laterality Modality Other Umang Galicia MD Edited Result - Final * Cardiology Document Scan (01/14/2025 2:21 PM RN LPN CNA) Anatomical Region Laterality Modality Other Gosia Dalal NP CV CARDIAC SERVICES PROCEDUR ES Final Result * TYPE AND SCREEN 14 DAY (12/31/2024 2:50 PM RN LPN CNA) Pathologist [facility] ABO Rh O Positive Fabiano, indirect Negative [facility] Blood 12/31/2024 2:50 PM RN LPN CNA 12/31/2024 3:25 PM RN LPN CNA Narrative [facility] - 12/31/2024 4:13 PM RN LPN CNA Has the patient had Daratumumab or Isatuximab in the past 6 months?->No Is this test being ordered in advance for a procedure?->Yes Expected date of procedure:->01/02/25 Has the patient been transfused in the past 3 months?->No Has the patient been in the past 3 months?->No Corey Stanley NP LAB BLOOD BANK TEST ORDHector BOATENG Final Result [facility] [place] [address] * (ABNORMAL) eGFR (12/31/2024 2:50 PM RN LPN CNA) eGFR 36(L) >=60 mL/min/1. 73 m2 Comment: [...] last reviewed 2021. Blood 12/31/2024 2:50 PM RN LPN CNA 12/31/2024 3:25 PM RN LPN CNA Corey Stanley NP LAB BLOOD ORDERABLES Fin al Result [facility] Department [place] [address] * (ABNORMAL) Differential, auto (12/31/2024 2:50 PM RN LPN CNA) Neutrophil abs 9.4(H) 1.5 - 6.5 K/cumm Imm gran abs 0.1 0.0 - 0.1 K/cumm [facility] Lymphocyte abs 4.3(H) 0.8 - 3.3 K/cumm [facility] Monocyte abs 1.4(H) 0.2 - 0.8 K/cumm [facility] Eosinophil abs 0.0 0.0 - 0.5 K/cumm [facility] Basophil abs 0.0 0.0 - 0.1 K/cumm [facility] Neutrophil pct 62.0 % [facility] Comment: Interpretive Data Percent cell count reference ranges are not reported, since discordance with absolute values may lead to misinterpretation of CBC data. Current Interpretive Data was last revised on 2018. Imm gran pct 0.5 % [facility] Comment: Interpretive Data Percent cell count reference ranges are not reported, since discordance with absolute values may lead to misinterpretation of CBC data. Current Interpretive Data was last revised on 2018. Lymphocyte pct 28.4 % [facility] Comment: Interpretive Data Percent cell count reference ranges are not reported, since discordance with absolute values may lead to misinterpretation of CBC data. Current Interpretive Data was last revised on 2018. Monocyte pct 8.9 % [facility] Comment: Interpretive Data Percent cell count reference ranges are not reported, since discordance with absolute values may lead to misinterpretation of CBC data. Current Interpretive Data was last revised on 2018. Eosinophil pct 0.1 % [facility] Comment: Interpretive Data Percent cell count reference ranges are not reported, since discordance with absolute values may lead to misinterpretation of CBC data. Current Interpretive Data was last revised on 2018. Basophil pct 0.1 % [facility] Comment: Interpretive Data Percent cell count reference ranges are not reported, since discordance with absolute values may lead to misinterpretation of CBC data. Current Interpretive Data was last revised on 2018. Blood 12/31/2024 2:50 PM RN LPN CNA 12/31/2024 3:26 PM RN LPN CNA us Corey Stanley NP LAB BLOOD ORDERABLES Fin al Result [facility] Department [place] [address] * (ABNORMAL) CBC with auto differential (12/31/2024 2:50 PM RN LPN CNA) WBC 15.1(H) 3.8 - 9.9 K/cumm Hgb 10.1(L) 11.9 - 15.5 g/dL [facility] Hct 31.4(L) 35.6 - 45.5 % [facility] Plt 355 150 - 400 K/cumm [facility] MPV 9.9 9.1 - 12.3 fL [facility] RBC 3.30(L) 3.90 - 5.20 M/cumm [facility] MCV 95.2 81.3 - 96.4 fL [facility] MCH 30.6 27.1 - 33.3 pg [facility] MCHC 32.2(L) 32.3 - 35.7 g/dL [facility] RDW CV 20.1(H) 11.1 - 14.9 % [facility] RDW SD 69.9(H) 35.7 - 48.1 fL [facility] NRBC abs 0.00 0.00 - 0.01 K/cumm [facility] Blood 12/31/2024 2:50 PM RN LPN CNA 12/31/2024 3:26 PM RN LPN CNA us Corey Stanley NP LAB BLOOD ORDERABLES Fin al Result [facility] Department [place] [address] * (ABNORMAL) Comprehensive metabolic panel (12/31/2024 2:50 PM RN LPN CNA) Sodium 139 135 - 145 mmol/L Potassium, pl 5.1(H) 3.3 - 4.9 mmol/L [facility] Chloride 107 97 - 110 mmol/L [facility] CO2 21(L) 22 - 32 mmol/L [facility] Anion gap 11 2 - 15 mmol/L [facility] BUN 23 6 - 25 mg/dL [facility] Creatinine 1.56(H) 0.60 - 1.10 mg/dL [facility] Glucose 115 70 - 199 mg/dL [facility] Comment: Interpretive Data Fasting glucose [...] classification and Diagnosis of Diabetes Diabetes Care 2021; 46: S19-S40. Current interpretive data was last revised 2022. Calcium 9.3 8.5 - 10.3 mg/dL [facility] Bilirubin, total 0.3 0.1 - 1.2 mg/dL [facility] Protein, pl 7.9 6.5 - 8.5 g/dL [facility] Albumin 4.0 3.5 - 5.0 g/dL [facility] Alk phos 99 40 - 130 Units/L [facility] ALT 16 7 - 45 Units/L [facility] AST 18 10 - 45 Units/L [facility] Blood 12/31/2024 2:50 PM RN LPN CNA 12/31/2024 3:25 PM RN LPN CNA us Corey Stanley NP LAB BLOOD ORDERABLES Fin al Result [facility] Department [place] [address] * US PHIL (12/30/2024 11:41 AM RN LPN CNA) Anatomical Region Laterality Modality Vascular N/A Ultrasound 12/30/2024 8:29 AM RN LPN CNA Narrative 12/30/2024 4:06 PM RN LPN CNA Lower Extremity Arterial Doppler Report Patient Name: GENARO GAYLE [place] : 1955 Study Date: 12/30/2024 8:29:00 AM Gender: F Nurse Ldr: Juan Zazueta RDMS, RVT Ref Provider: KATARZYNA PEREIRA Quality: Adequate Order Provider: KATARZYNA PEREIRA PROCEDURES: Arterial Report: Ankle - Brachial Index Doppler exam. INDICATIONS: Peripheral Vascular Disease, Unspecified and Atherosclerosis of [place] Arteries of Extremities with Intermittent Claudication, Bilateral Leg. HISTORY: s/p right to left fem-fem bypass graft in 2015. Risk Factors: Previous smoker (quit about 9 years ago), hypertension, hyperlipidemia, heart disease, lung disease. COMPARISONS: The previous exam was completed on 06-19-2024. MEASUREMENTS: Right Value Left Value Rt Brachial Pressure 161 mmHg Lt Brachial Pressure 158 mmHg Rt ELECTRICIAN CONTROL EQUIPMENT Pressure 180 mmHg Lt ELECTRICIAN CONTROL EQUIPMENT Pressure 176 mmHg Rt DPA Pressure 154 [...] By: Vick Pereira MD 12/30/2024 3:09:59 PM RN LPN CNA Procedure Note Vick Pereira MD - 02/17/2025 Lower Extremity Arterial Doppler Report Patient Name: GENARO GAYLE [place] : 1955 Study Date: 12/30/2024 8:29:00 AM Gender: F Nurse Ldr: Juan Zazueta RDMS, RVT Ref Provider: KATARZYNA [...] mmHg Lt Brachial Pressure 158 mmHg Rt ELECTRICIAN CONTROL EQUIPMENT Pressure 180 mmHg Lt ELECTRICIAN CONTROL EQUIPMENT Pressure 176 mmHg Rt DPA Pressure 154 [...] By: Vick Pereira MD 12/30/2024 3:09:59 PM RN LPN CNA us Katarzyna Pereira MD IMG US PROCEDURES Final Result * US Arterial Duplex Lower Extremity Bilateral (12/30/2024 10:12 AM RN LPN CNA) Anatomical Region Laterality Modality Vascular Bilateral Ultrasound 12/30/2024 8:08 AM RN LPN CNA Narrative 12/30/2024 4:07 PM RN LPN CNA Lower Extremity Arterial Duplex Report Patient Name: GENARO GAYLE [place] : 1955 (69y 2m) Gender: F Study Date: 12/30/2024 08:08:32 AM Ht(Inch): Wt(Lb): BSA: Nurse Ldr: Juan Zazueta Provider: KATARZYNA PEREIRA Quality: Adequate Ref Provider: KATARZYNA PEREIRA PROCEDURES: Arterial Report: A non-invasive vascular imaging study of the bilateral lower extremity arteries and bypass grafts was performed using B-mode ultrasound, color flow, and spectral Doppler. INDICATIONS: Atherosclerosis of [place] arteries of extremities with intermittent claudication, bilateral and Encounter for surgical aftercare following surgery on the circulatory system. HISTORY: s/p right to left fem-fem bypass graft in 2014. Risk Factors: Hypertension, Hyperlipidemia, previous smoker (quit about 9 years ago), Heart disease, Lung disease. COMPARISONS: No change compared to prior study. The previous exam was completed on 06-19-2024. MEASUREMENTS: Right Value Left Value Rt VALET PARKER Prx PSV 221.00 cm/sec Lt VALET PARKER Dst PSV 197.00 cm/sec Lt Profunda Prx [...] By: Vick Pereira MD 12/30/2024 3:12:44 PM RN LPN CNA Procedure Note Vick Pereira MD - 12/30/2024 Lower Extremity Arterial Duplex Report Patient Name: GENARO GAYLE MI : 1955 (69y 2m) Gender: F Study Date: 12/30/2024 08:08:32 AM Ht(Inch): Wt(Lb): BSA: Nurse Ldr: Juan Zazueta Provider: KATARZYNA PEREIRA Quality: Adequate Ref Provider: KATARZYNA PEREIRA PROCEDURES: Arterial Report: A non-invasive vascular imaging study of the bilaterallower extremity arteries and bypass grafts was performed using B-mode ultrasound, colorflow, and spectral Doppler. INDICATIONS: Atherosclerosis of [place] arteries of extremities with intermittentclaudication, bilateral and Encounter for surgical aftercare following surgery on thecirculatory system. HISTORY: s/p right to left fem-fem bypass graft in 2014. Risk Factors: Hypertension, Hyperlipidemia, previous smoker (quit about 9years ago), Heart disease, Lung disease. COMPARISONS: No change compared to prior study. The previous exam was completed on06-19-2024. MEASUREMENTS: Right Value Left Value Rt VALET PARKER Prx PSV 221.00 cm/sec Lt VALET PARKER Dst PSV 197.00 cm/sec Lt Profunda Prx [...] By: Vick Pereira MD 12/30/2024 3:12:44 PM RN LPN CNA Katarzyna Pereira MD [facility] PROCEDURES Final Result * POCT lipid panel (12/13/2024 9:08 AM RN LPN CNA) Cholesterol, POC 114 mg/dL HDL, POC 46 mg/dL Triglycerides, POC 136 mg/dL LDL Cholesterol POC 41 mg/dL Chol/HDL Ratio, POC 0.9 Non-HDL Cholesterol, POC 69 mg/dL Cholesterol Total, POC 114 mg/dL Capillary blood 12/13/2024 9 :08 AM RN LPN CNA Ragini Velasco MD POINT OF CARE TEST ORDERA BLES Final Result * PET/CT Myocardial Metabolic Evaluation for Viability (12/11/2024 12:47 PM RN LPN CNA) Anatomical Region Laterality Modality N/A Positron Emissio n Tomography (PET) 12/11/2024 5:36 PM RN LPN CNA Impressions 12/11/2024 5:39 PM RN LPN CNA 1. Viable myocardium in the small and [...] Jannet English M.D. Narrative 12/11/2024 5:39 PM RN LPN CNA EXAMINATION: MYOCARDIAL PET/CT (METABOLISM) DATE OF STUDY: 12/11/2024 SCANNER: [facility] RADIOPHARMACEUTICAL: 10.61 mCi F-18 Fluorodeoxyglucose (FDG) [...] minutes. The study was interpreted on the [employer] workstation. At the conclusion of the study, [...] PET/CT (METABOLISM) DATE OF STUDY: 12/11/2024 SCANNER: [facility] RADIOPHARMACEUTICAL: 10.61 mCi F-18 Fluorodeoxyglucose (FDG) [...] minutes. The study was interpreted on the [employer] workstation. At the conclusion of the study, [...] Study (Rest) for Viability (12/11/2024 9:27 AM RN LPN CNA) Anatomical Region Laterality Modality Body N/A Nuclear Medicine 12/11/2024 5:30 PM RN LPN CNA Impressions 12/11/2024 5:36 PM RN LPN CNA 1. Small size and mildly severe decreased rest perfusion defect of anterior and anteroseptal wall. 2. Normal left ventricular size and systolic function. Drs. Bojorquez and Fermin also participated in the interpretation of this examination. Please refer to the same day FDG PET for viability accession #[id number] for more information. Dictated by: Anita Quinones M.D. The radiology attending physician has personally reviewed this study, and had reviewed and/or edited this written report and agrees with it. Electronically signed by: Jannet English M.D. Narrative 12/11/2024 5:36 PM RN LPN CNA EXAMINATION: MYOCARDIAL IMAGING (REST/SPECT-CT) DATE OF STUDY: [...] same day FDG PET for viability accession #[id number] for more information. Dictated by: Anita Quinones M.D. The radiology attending physician has personally reviewed this study, and had reviewed and/or edited this written report and agrees with it. Electronically signed by: Jannet English M.D. us Ragini Velasco MD IMG NM PROCEDURES Final R esult * NM MPI SPECT (Rest and/or Stress) Multiple Studies (11/14/2024 10:14 AM RN LPN CNA) Anatomical Region Laterality Modality Body N/A Nuclear Medicine 11/14/2024 8:26 AM RN LPN CNA Narrative 11/14/2024 12:45 PM RN LPN CNA [facility] Cardiology [address] [facility] [address] [place] [id number] [address] [facility] [address] [place] [address], [place] [address] P:[phone] P:[phone] MPI Imaging Report Patient Name: GENARO GAYLE MI : 1955 Study Date: 11/14/2024 8:26:53 AM Gender: F Tech: [facility] Location: [facility] Provider: RAGINI VELASCO Height(Cm): 157.5 BSA: Weight(Kg): 79.4 BMI: 32.01 Order Provider: RAGINI VELASCO - PHYSICIAN: Referring Physician: Dr. Freeman. HCG Physician: Serafin Velasco M.D. Interpreting Physician: Serafin Velasco M.D. Stress Supervision: Ripa Galicia, M.D., F.A.C.C. PROCEDURES: Pharmacologic SPECT Report: Myocardial perfusion imaging with Tc99M Sestamibi SPECT at rest and stress post regadenoson (Lexiscan) infusion. INDICATIONS: Hypertension, Family Hx CAD, High Cholesterol, Former Smoker, Palpitations. PVD, I25.118 Atherosclerotic heart disease of [place] coronary artery with other forms of angina [...] By: Umang Galicia MD 11/14/2024 11:54:51 AM RN LPN CNA Electronically Signed By: Ragini Velasco MD 11/14/2024 12:45:24 PM RN LPN CNA Procedure Note Ragini Velasco MD - 11/14/2024 [facility] Cardiology [address] [facility] [address] [address] [address] [facility] [address] [place], [place] [address] P:[phone] P:[phone] MPI Imaging Report Patient Name: GENARO GAYLE MI : 1955 Study Date: 11/14/2024 8:26:53 AM Gender: F Tech: [facility] Location: [facility] Provider: RAGINI VELASCO Height(Cm): 157.5 BSA: [...] Smoker,Palpitations. PVD, I25.118 Atherosclerotic heart disease of [place] coronary artery with other formsof angina pectoris, [...] By: Umang Galicia MD 11/14/2024 11:54:51 AM RN LPN CNA Electronically Signed By: Ragini Velasco MD 11/14/2024 12:45:24 PM RN LPN CNA us Ragini Velasco MD IMG NM PROCEDURES [...] agrees with it. ACC# Date Time Exam [id number] Jan 30, 2017 09:38:[id number] Colonography Screen ACC# Date Time Exam [id number] Jan 30, 2017 09:38:[id number] Colonography Screen EXAMINATION: CT colonography without [...] SHAW M.D. on Jan 30 2017 5:45P [id number] Procedure Note Miscellaneous, Notinfile / Provider, MD Alicia - 04/04/2017 GRAZYNA SHAW M.D. PUNEET ALVAREZ M.D. FINAL REPORT The radiology attending physician has personally reviewed this study, and has reviewed and/or edited this written report and agrees with it. ACC# Date Time Exam [id number] Jan 30, 2017 09:38:[id number] Colonography Screen ACC# Date Time Exam [id number] Jan 30, 2017 09:38:[id number] Colonography Screen EXAMINATION: CT colonography without [...] SHAW M.D. on Jan 30 2017 5:45P [id number] us Not In File Miscellaneous IMG CT PROCEDURES Evelin l Result from Last 3 Months or Most Recently Relevant to Health Maintenance Additional Health Concerns Infection Onset Date Last Indicated MDR gram neg/ESBL 11/29/2023 11/29/2023 Insurance HEALTHCARE HEALTHCARE HEALTHCARE Advance Directives For more information, please contact: [phone] * Full Code (Latest Code Status on File) Date Activated Date Inactivated Comments 11/28/2023 12:54 PM 12/01/2023 6:05 PM Care Teams Machine Cutter Relationship Specialty Start Date End Date Ricardo Freeman DO [address] [facility] [address] [place], [place] [id number] PCP - General Internal Medicine 06/19/24
--- OUTSIDE RECORDS SUMMARY | 2025-02-11 17:55 | XMS_ITS | Clinical Summary ---
Author Organization [facility] Address [address] [place] [id number] Phone Care Team Providers Care Strength And Conditioning Coach Name Role Phone Carlito Guerrero Primary Care Provider [phone] Allergies No known active allergies Medications Medication [...] 10 MCG (400 UNIT) tablet Active Coral Btxutol-Gmmemvctc-Ldz D (RA CORAL CALCIUM) 200-100-100 MG-MG-UNIT capsule [...] absence of kidney 02/18/2018 Coronary arteriosclerosis in [place] artery 10/01 Overview (05/22/2019): Coronary artery disease [...] Influenza Vaccine (#1) 2024 08/13/2019 Care Teams Strength And Conditioning Coach Relationship Specialty Start Date End Date Carlito Guerrero DO [address] [facility] [address] [place] [id number] PCP - General Internal Medicine 05/22/19
[2025-02-11 18:10] LABS: Hematocrit 26.7 % (37.0-47.0); Mean Corpuscular HGB Conc 33.7 g/dl (32-36); Mean Corpuscular Hemoglobin 31.8 pg (26-34); Mean Corpuscular Volume 94.3 fl (80-100); Mean Platelet Volume 9.7 fl (7.4-10.4); Platelet Count Result 492 k/mm3 (150-375); Red Blood Count 2.83 M/mm3 (4.2-5.4); Red Cell Distribution Width 17.3 % (11.5-14.5); White Blood Count 29.4 K/mm3 (4.5-10.0)
[2025-02-11 18:20] LABS: INR 1.7; Prothrombin Time 20.5 Seconds (11.1-14.7)
[2025-02-11 18:21] LABS: Partial Thromboplastin Time 35.1 Seconds (22.3-36.8)
[2025-02-11 18:26] LABS: Lactic Acid Reflex 1.6 mmol/L (0.7-2.0)
[2025-02-11 18:27] LABS: Alanine Aminotransferase 21 U/L (6-35); Albumin Level 3.5 g/dL (3.5-5.1); Alkaline Phosphatase 165 U/L (38-126); Anion Gap 22 mmol/L (4-12); Aspartate Amino Transferase 24 U/L (14-36); Bilirubin,Total 0.4 mg/dL (0.2-1.3); Blood Urea Nitrogen 81 mg/dL (7-17); Calcium 8.1 mg/dL (8.4-10.2); Carbon Dioxide 13 mmol/L (22-30); Chloride 97 mmol/L (98-107); Estimated CRCL calculation 8 ml/min; Estimated Glomerular Filt Rate 7; Glucose 105 mg/dL (65-110); Lipase 43 U/L (23-300); Potassium 3.3 mmol/L (3.4-5.0); Sodium 132 mmol/L (137-145)
[2025-02-11 18:32] LABS: Band Neutrophils Percent 8 % (0-6); Lymphocytes Absolute Manual 2.35 K/mm3 (1.1-4.5); Lymphocytes Percent Manual 8 % (18-44); Monocytes Absolute Manual 1.47 K/mm3 (0.1-0.90); Monocytes Percent Manual 5 % (3-9); Neutrophils Absolute Manual 25.57 K/mm3 (1.7-7.2); Neutrophils Percent Manual 79 % (46-73); Platelet Estimate Increased (Adequate); Total Cells Counted 100
[2025-02-11 18:33] LABS: Ovalocytes 1+; Schistocytes None Seen
[2025-02-11 18:35] LABS: NT Pro B Type Natriuretic Pept 3380 pg/mL (19.9-100)
--- NOTE | 2025-02-11 19:02 | PC.NURSE ---
Pt. arrived with dirty depend. Dried poop stuck to bottom. Dirty depend removed. Kena care performed with soap and water. Clean depend applied. Pt. states I feel much better. Thank you.
--- NOTE | 2025-02-11 19:07 | ED_ITS ---
HPI - General Adult General Chief complaint: Nausea/Vomiting/Diarrhea Stated complaint: diarrhea; B/L LE swelling Time Seen by Provider: 02/11/25 17:35 History of Present Illness HPI narrative: Patient is a 69-year-old female with multiple medical issues recently discharged from the hospital 2 weeks ago who presents ER with lower extremity edema as well as nausea vomiting. Reports she has been having vomiting and diarrhea for the last 3 days and she cannot take her medications. Has history of atrial fibrillation for which she used to take Coumadin but she is now on Eliquis because she had a pulmonary embolism. Patient has chronic kidney disease as well as COPD. She denies being febrile. She has developed pitting edema up to her knees over last 3 days and has no history of using diuretics. Patient is making urine. Denies blood in stool. Related Data Home Medications ?Medication ?Instructions ?Recorded ?Confirmed ?Last Taken ?Type clopidogrel 75 mg tablet (Plavix) 75 mg PO QAM 12/02/19 01/13/25 01/13/25 History nitroglycerin 0.4 mg sublingual 0.4 mg sublingual Q5M PRN Chest 12/02/19 01/10/25 11/24/24 History tablet Pain oxybutynin chloride 15 mg 15 mg PO DAILY 12/02/19 01/10/25 01/10/25 History tablet,extended release 24 hr ranolazine 500 mg tablet,extended 500 mg PO BID 03/24/21 01/10/25 01/10/25 History release,12 hr rosuvastatin 40 mg tablet 40 mg PO DAILY 05/09/23 01/13/25 01/13/25 History zoledronic acid 5 mg/100 mL in 1 ea IV DIRECTED 12/11/23 01/10/25 11/24/24 History mannitol 5 %-water intravenous piggybck methenamine hippurate 1 gram tablet 1 g PO BID 02/06/24 01/10/25 01/10/25 History isosorbide mononitrate 30 mg 30 mg PO DAILY 11/25/24 01/13/25 01/13/25 History tablet,extended release 24 hr acetaminophen 325 mg capsule 650 mg PO Q6H PRN pain 01/10/25 01/10/25 Unknown History lansoprazole 15 mg capsule,delayed 15 mg PO DAILY PRN acid reflux 01/10/25 01/10/25 Unknown History release Allergies Allergy/AdvReac Type Severity Reaction Status Date / Time No Known Allergies Allergy Verified 01/13/25 09:11 Review of Systems 2 Review of Systems: All systems reviewed & are unremarkable except as noted in HPI and below Constitutional: Constitutional: Reports no additional constitutional complaints ENT: Reports system reviewed and no additional complaints, except as documented Cardiovascular: Cardiovascular: Reports no additional cardiovascular complaints Respiratory: Respiratory: Reports no additional respiratory complaints Gastrointestinal: Gastrointestinal: Reports no additional gastrointestinal complaints [facility] Past Medical History Medical History Hunner's ulcer Coronary artery disease Chronic obstructive pulmonary disease Chronic kidney disease, stage 3 Abdominal aortic aneurysm mild dilatation of the distal aorta measuring 3.[address] scan in November 2024 Hypercholesterolemia Deep venous thrombosis (2014) Chronic anticoagulation Paroxysmal atrial fibrillation Essential hypertension Gastro-esophageal reflux disease without esophagitis Pulmonary embolism (2014) History of tobacco abuse Anxiety Gout Osteoporosis Arthritis Cancer of left kidney status post left nephrectomy Ventral hernia Hemorrhoids Sleep apnea does not use CPAP Migraine Glaucoma Hypothyroidism Peripheral vascular disease, unspecified Surgical History Surgical History History of right breast biopsy History of open reduction and internal fixation (ORIF) procedure repair of bilateral wrist and left foot fractures History of cystoscopy History of hernia repair History of vascular surgery bifemoral bypass left femoral and popliteal stents History of ventral hernia repair History of right shoulder replacement History of cholecystectomy History of appendectomy History of left nephrectomy History of splenectomy retroperitoneal fibrosis History of tubal ligation History of cataract extraction History of coronary artery stent placement (2014) Hx of foot surgery History of hysterectomy Family History Family History Mother Family history of Alzheimer's disease, Onset Age: 82 Sibling Family history of diabetes mellitus in first degree relative Diabetes mellitus Family history of congenital heart disease Father Family history of emphysema Family history of congenital heart disease Other Hypertension Social History Social History Social History: Surrogate medical decision maker: Amrit Gallardo, son. Code status: Full code. Smoking packs per day: 0.5 Smoking cigarettes per day: 10.0 Years smoked: 30 Smoking pack-years: 15.00 Smoking status: Former smoker Tobacco type: cigarettes Second hand tobacco smoke exposure: No Smoking end date: 11/13/14 Additional smoking assessment comments: quit 2013 Alcohol intake: never Substance use: never Substance use type: does not use Do You Feel Safe in your Home?: Yes Lack of Transportation: No Lack of Food: Never True Current Housing: I Have Housing Concerned About Future Housing: No Difficulty Paying Gas/Electric Bills: No Difficulty Paying for Meds: No Currently Unemployed: No Education: High School Diploma/GED Difficulty w/ Childcare or Family Care: No Living arrangements: with family Additional living arrangements comments: Son Occupation/Education: retired Gender identity (if verbalized by the patient): Female Spiritual care concerns: No Exam 2 Narrative: GENERAL: Chronically ill-appearing, well-nourished, and in no acute distress. HEAD: Normocephalic, atraumatic. ENT: Nares clear, no rhinorrhea or epistaxis. Mucous membranes moist. NECK: Supple. CHEST: Clear to auscultation. No respiratory distress. HEART: Regular rate and rhythm. Normal peripheral pulses. ABDOMEN: Soft, nontender, nondistended. EXTREMITIES: Normal range of motion. 3+ edema. SKIN: Warm, dry, no rash. NEURO: Alert and oriented x3. PSYCH: Normal mood and affect. Course Course Emergency Course: Less than 30ml/kg crystalloid bolus was ordered because it would be detrimental or harmful for the patient despite having sepsis The patient has the following conditions: fluid Overload, heart failure, Renal failure. IV ceftriaxone ordered. Only one set of blood cultures could be drawn and it was felt to be in the patient's best interest for her to not delay antibiotic administration. Patient accepted by hospitalist service. C diff assay ordered given recent hospitalization IV antibiotic administration. Vital Signs Vital signs: Vital Signs Temperature 97.9 F 02/11/25 17:34 Pulse Rate 96 02/11/25 17:34 Respiratory Rate 16 02/11/25 17:34 Blood Pressure 130/67 02/11/25 17:34 Pulse Oximetry 99 02/11/25 17:34 Oxygen Delivery Room Air 02/11/25 17:34 Temperature 97.9 F 02/11/25 17:34 Pulse Rate 86 02/11/25 21:21 Respiratory Rate 16 02/11/25 21:21 Blood Pressure 121/105 H 02/11/25 21:21 Pulse Oximetry 96 02/11/25 21:21 Oxygen Delivery Room Air 02/11/25 17:34 Medical Decision Making Vital Signs Vital Signs: Vital Signs Temperature 97.9 F 02/11/25 17:34 Pulse Rate 96 02/11/25 17:34 Respiratory Rate 16 02/11/25 17:34 Blood Pressure 130/67 02/11/25 17:34 Pulse Oximetry 99 02/11/25 17:34 Oxygen Delivery Room Air 02/11/25 17:34 Temperature 97.9 F 02/11/25 17:34 Pulse Rate 86 02/11/25 21:21 Respiratory Rate 16 02/11/25 21:21 Blood Pressure 121/105 H 02/11/25 21:21 Pulse Oximetry 96 02/11/25 21:21 Oxygen Delivery Room Air 02/11/25 17:34 Lab Data 02/11/25 18:04 02/11/25 18:04 Labs: Lab Results 02/11/25 02/11/25 Range/Units 18:04 18:54 WBC 29.4 H (4.5-10.0) K/mm3 RBC 2.83 L (4.2-5.4) M/mm3 Hgb 9.0 L (12.0-15.0) g/dL Hct 26.7 L (37.0-47.0) % MCV 94.3 (80-100) fl MCH 31.8 (26-34) pg MCHC 33.7 (32-36) g/dl RDW 17.3 H (11.5-14.5) % Plt Count 492 H (150-375) k/mm3 MPV 9.7 (7.4-10.4) fl Immature Gran % (Auto) Not Reportable Neut % (Auto) Not Reportable Lymph % (Auto) Not Reportable [place] % (Auto) Not Reportable Eos % (Auto) Not Reportable Baso % (Auto) Not Reportable Lymph # (Auto) Not Reportable [place] # (Auto) Not Reportable Eos # (Auto) Not Reportable Baso # (Auto) Not Reportable Abs Immat Gran (auto) Not Reportable Absolute Neuts (auto) Not Reportable Absolute Nucleated RBC Not Reportable Total Counted 100 Neutrophils % (Manual) 79 H (46-73) % Band Neutrophils % 8 H (0-6) % Lymphocytes % (Manual) 8 L (18-44) % Monocytes % (Manual) 5 (3-9) % Nucleated RBC % Not Reportable Abs Neuts (Manual) 25.57 H (1.7-7.2) K/mm3 Abs Lymphs (Manual) 2.35 (1.1-4.5) K/mm3 Abs Monocytes (Manual) 1.47 H (0.1-0.90) K/mm3 Platelet Estimate Increased (Adequate) Ovalocytes 1+ Schistocytes None seen PT 20.5 H (11.1-14.7) Seconds INR 1.7 APTT 35.1 (22.3-36.8) Seconds Sodium 132 L (137-145) mmol/L Potassium 3.3 L (3.4-5.0) mmol/L Chloride 97 L (98-107) mmol/L Carbon Dioxide 13 L (22-30) mmol/L Anion Gap 22 H (4-12) mmol/L BUN 81 H D (7-17) mg/dL Creatinine 6.19 H (0.7-1.0) mg/dL Estim Creat Clear Calc 8 ml/min Estimated GFR 7 L (59 - ) Glucose 105 (65-110) mg/dL Lactic Acid 1.6 (0.7-2.0) mmol/L Calcium 8.1 L (8.4-10.2) mg/dL Total Bilirubin 0.4 (0.2-1.3) mg/dL AST 24 (14-36) U/L ALT 21 (6-35) U/L Alkaline Phosphatase 165 H (38-126) U/L NT-Pro-B Natriuret Pep 3380 H (19.9-100) pg/mL Total Protein 8.0 (6.3-8.2) g/dL Albumin 3.5 (3.5-5.1) g/dL Lipase 43 (23-300) U/L Urine Color Yellow (Yellow) Urine Appearance Turbid H (Clear) Urine pH 6.5 (5.0-9.0) Ur Specific [place] 1.014 (1.001-1.035) Urine Protein 3+ H (Negative) mg/dL Urine Glucose (UA) Negative (Negative) mg/dL Urine Ketones Negative (Negative) mg/dL Ur Blood (Man) 3+ H (Negative) Urine Nitrate Negative (Negative) Urine Bilirubin Negative (Negative) Urine Urobilinogen 0.2 (<2.0) mg/dL Add Ur Microanalysis Reviewed Leukocyte Esterase Rfl 2+ H (Negative) MARK/UL Urine RBC 21-50 H (0-2) /hpf Urine WBC >100 H (0-3) /hpf Ur Squamous Epith Cells None seen (Few) /hpf Urine Bacteria 4+ H /hpf Urine Casts 0-2 Influenza A (RT-PCR) Negative (Negative) Influenza B (RT-PCR) Negative (Negative) RSV (RT-PCR) Negative (Negative) SARS-CoV-2 RNA (RT-PCR) Negative (Negative) Imaging Data Radiologist's impression: ITS Impressions Abdomen/Pelvis CT 02/11/25 19:34 IMPRESSION: Left basilar consolidation, an interval change from prior. Findings within the colon suggesting a diarrheal illness, for which clinical correlation is needed. Chest X-Ray 02/11/25 19:58 IMPRESSION: No focal infiltrate or effusion. ECG Data EKG #1: ECG completion date: 02/11/25 ECG completion time: 18:39 EKG Interpretation: normal rate (91), sinus rhythm, non-specific ST changes, widened QRS, normal QT and NL axis Critical Care Time Critical Care Time Critical Care Time: Yes Total Critical Care Time: 35 Discharge Plan Discharge Clinical Impression: Sepsis, Acute kidney injury, Acute UTI, Diarrhea Patient Disposition: Still a Patient Condition: Serious
--- NOTE | 2025-02-11 19:09 | PC.NURSE ---
Pt. to CT.
[2025-02-11 19:11] LABS: Add Urine Microscopic? YES; Appearance Urine Turbid (Clear); Bacteria Urine 4+ /hpf; Bilirubin Urine Negative (Negative); Blood Urine 3+ (Negative); Color Urine Yellow (Yellow); Glucose Urine UA Negative (Negative); Ketones Urine Negative (Negative); Leukocyte Esterase Ur 2+ LEU/UL (Negative); Need Manual Microscopic Reviewed; Nitrate Urine Negative (Negative); Non Pathogenic Casts 0-2; Protein Urine 3+ mg/dL (Negative); RBC Urine 21-50 /hpf (0-2); Specific Grav Ur 1.014 (1.001-1.035); Squamous Epithelial Cell Urine None Seen /hpf (Few); Urobilinogen Urine 0.2 mg/dL (<2.0); WBC Urine >100 /hpf (0-3); pH Urine 6.5 (5.0-9.0)
[2025-02-11 19:33] VITALS: BP 139/67; PULSE 95; RESP 25; O2SAT 96
[2025-02-11] MEDS: SODIUM CHLORIDE 0.9% IV 1,000 ML 999 ML IV CONT (19:34)
[2025-02-11 19:36] LABS: Influenza A QL RT-PCR Negative (Negative); Influenza B QL RT-PCR Negative (Negative); RSV RNA, RT-PCR Negative (Negative); SARS-CoV-2 RNA PCR Negative (Negative)
--- NOTE | 2025-02-11 20:12 | PC.NURSE ---
Pt. is a difficult IV stick. 1x operations and maintenance technican an 1x ED RN attempted for blood cultures with no success. This RN able to collect 1 set of cultures. Unable to obtain 2nd set of blood cultures at this time. Dr. Saleh and MIKAL Chawla notified of difficulty. Phlebotomy phoned by MIKAL to obtain 2nd set.
[2025-02-11 20:15] VITALS: BP 139/67; PULSE 90; RESP 16; O2SAT 98
--- NOTE | 2025-02-11 20:49 | PC.NURSE ---
Phlebotomy at bedside attempting to obtain 2nd set of blood cultures. Per Dr. Saleh, start IV antibiotics so treatment is not delayed.
[2025-02-11 20:51] VITALS: BP 126/68; PULSE 90; RESP 18; O2SAT 96
[2025-02-11 21:21] VITALS: BP 121/105; PULSE 86; RESP 16; O2SAT 96
--- NOTE | 2025-02-11 22:13 | PC.NURSE ---
Dirty depend removed and ness care performed with soap and water just before pt. went up to IMU. Clean depend applied.
[2025-02-11 22:22] VITALS: BMI 27.8
[2025-02-11] MEDS: SODIUM BICARBONATE 8.4% 150 MEQ in DEXTROSE 5% 1,000 ML 950 ML IV CONT (22:45)
[2025-02-11] MEDS: POTASSIUM CHLORIDE 20 MEQ ER TABLET 40 MEQ PO (22:50)
--- NOTE | 2025-02-11 23:00 | ADMGEN ---
This patient, Iza Gayle, was admitted to IMU Room 213-01 at 2210. Patient/family oriented to hospital policies and general routines including ID bracelet, bed and alarms, visiting hours, pain management, procedures, bathroom and other care routines, personal items, smoking policy, room service/diet, and visiting hours. Information on how to activate the Rapid Response Team has been discussed. Patient/Family are encouraged to report perceived risks to care and to ask questions if they do not understand what they are told or what they should do.
[2025-02-11 23:16] VITALS: BP 129/52; PULSE 92; RESP 16; TEMP 36.5; O2SAT 96
[2025-02-12] VITALS (20 sets, daily range): BP systolic 106–114; BP diastolic 47–57; PULSE 78–92; RESP 16–20; TEMP 36.6–37.3; O2SAT 93–99
[2025-02-12 04:25] LABS: Hematocrit 22.2 % (37.0-47.0); Hemoglobin 7.5 g/dL (12.0-15.0); Mean Corpuscular HGB Conc 33.8 g/dl (32-36); Mean Corpuscular Hemoglobin 31.8 pg (26-34); Mean Corpuscular Volume 94.1 fl (80-100); Mean Platelet Volume 9.8 fl (7.4-10.4); Platelet Count Result 409 k/mm3 (150-375); Red Blood Count 2.36 M/mm3 (4.2-5.4); Red Cell Distribution Width 17.3 % (11.5-14.5); White Blood Count 24.5 K/mm3 (4.5-10.0)
[2025-02-12 04:42] LABS: Alanine Aminotransferase 17 U/L (6-35); Albumin Level 2.9 g/dL (3.5-5.1); Alkaline Phosphatase 143 U/L (38-126); Anion Gap 18 mmol/L (4-12); Aspartate Amino Transferase 20 U/L (14-36); Bilirubin,Total 0.3 mg/dL (0.2-1.3); Blood Urea Nitrogen 75 mg/dL (7-17); Calcium 6.8 mg/dL (8.4-10.2); Carbon Dioxide 13 mmol/L (22-30); Chloride 102 mmol/L (98-107); Creatine Kinase 74 U/L (30-135); Estimated CRCL calculation 9 ml/min; Estimated Glomerular Filt Rate 8; Glucose 78 mg/dL (65-110); Magnesium 2.2 mg/dL (1.6-2.3); Phosphorus 7.4 mg/dL (2.5-4.5); Potassium 3.2 mmol/L (3.4-5.0); Sodium 133 mmol/L (137-145)
[2025-02-12 04:54] LABS: CRP 22.1 mg/dL (<1.0)
[2025-02-12 04:55] LABS: Total Cells Counted 100
[2025-02-12 04:56] LABS: Neutrophils Percent Manual 80 % (46-73)
[2025-02-12 04:57] LABS: Band Neutrophils Percent 10 % (0-6); Burr Cells 1+; Hypochromasia 1+; Lymphocytes Absolute Manual 1.47 K/mm3 (1.1-4.5); Lymphocytes Percent Manual 6 % (18-44); Monocytes Absolute Manual 0.98 K/mm3 (0.1-0.90); Monocytes Percent Manual 4 % (3-9); Neutrophils Absolute Manual 22.05 K/mm3 (1.7-7.2); Ovalocytes 1+; Platelet Estimate Increased (Adequate); Poikilocytosis 1+; Schistocytes None Seen
[2025-02-12] MEDS: metroNIDAZOLE 500 MG/ISO 100ML 500 MG/100 ML BAG 100 MG IVPB ×3 (06:00→18:00)
[2025-02-12] MEDS: HYDROcodone/acetaminophen (*CRX) 5-325 MG TABLET 1 TAB PO ×2 (06:40→12:25)
[2025-02-12] MEDS: LEVOTHYROXINE SODIUM 88 MCG TABLET PO (06:40)
--- NOTE | 2025-02-12 06:47 | P.HP_ITS ---
H&P: HPI History of Present Illness Date/Time: 02/11/25 23:50 Chief Complaint: Diarrhea, weakness Narrative: 69-year-old female with a past medical history paroxysmal atrial fibrillation, coronary artery disease with history of coronary artery stent, DVT and PE 2014, essential hypertension, peripheral artery disease with stent the left lower extremity, obstructive sleep apnea not treated with CPAP, GERD, prior appendectomy, cholecystectomy and prior hernia repair with ongoing umbilical hernia with recent prolonged hospitalization who presented back to the ER today due to and diarrhea and acutely worsening lower extremity swelling. The patient was hospitalized from 01/13/2025 through 01/28/2025. She had originally presented for a screening catheterization for preop clearance for umbilical hernia repair. She was subsequently admitted due to shortness of breath and was found to have acute hypoxic respiratory failure due to pulmonary embolism influenza a and left lower lobe pneumonia. She was treated with Rocephin and azithromycin and discharged home on Augmentin to complete antibiotic course on 02/01/2025. She reports that initially she was doing well at home and was able to ambulate with her rolling walker and would sit on her walker to propel herself around the house and do her daily chores. A week or so ago she began having lower extremity swelling. She reports that she usually only had mild lower extremity swelling that would usually go down when she would elevate her legs. But more recently than lower extremity swelling has become quite marked. She has also noted bruising to the top of her feet. She is uncertain of when exactly it started but denies any injury. She reports that she has been wearing her shoes around the house so that she has traction and does not fall. She does not remember dropping anything on her feet or stubbing her toes. This was accompanied by onset of profuse watery brown diarrhea numerous times a day that started occurring between 4-5 days ago. She was incontinent of stools due to the severity of her diarrhea. With the onset of diarrhea her lower extremity swelling seemed to get worse. She was also developing some cramping lower abdominal pain that is been pretty much persistent. She reports that the cramping is mild. She has not noticed any change in urinary urgency or dysuria. She thinks she may have had some decreased urine output. She always has difficulty with urinary incontinence. She denies having any fevers or chills. She denies any chest pain. She reports that she feels so weak now that she is having difficulty picking upper arms and legs. Source of information came from a combination of review of past medical records, external records, ER physician report, nursing report and patient who is a good historian. Review of Systems 2 Review of Systems: 12 systems were reviewed with pertinent positives and negatives per HPI. Except as documented in the HPI, all other systems were reviewed and are negative. COUNTS INCLUDE 234 BEDS AT THE [facility] Past Medical History Medical History (Updated 02/12/25 @ 07:39 by Bev Guzman DO) Hunner's ulcer Coronary artery disease Chronic obstructive pulmonary disease Chronic kidney disease, stage 3 Abdominal aortic aneurysm mild dilatation of the distal aorta measuring 3.[address] scan in November 2024 Hypercholesterolemia Deep venous thrombosis (2014) Chronic anticoagulation Paroxysmal atrial fibrillation Essential hypertension Gastro-esophageal reflux disease without esophagitis Pulmonary embolism (2014) 2014 and January 2025 History of tobacco abuse Anxiety Gout Osteoporosis Arthritis Cancer of left kidney status post left nephrectomy Ventral hernia Hemorrhoids Sleep apnea does not use CPAP Migraine Glaucoma Hypothyroidism Peripheral vascular disease, unspecified Surgical History Surgical History History of right breast biopsy History of open reduction and internal fixation (ORIF) procedure repair of bilateral wrist and left foot fractures History of cystoscopy History of hernia repair History of vascular surgery bifemoral bypass left femoral and popliteal stents History of ventral hernia repair History of right shoulder replacement History of cholecystectomy History of appendectomy History of left nephrectomy History of splenectomy retroperitoneal fibrosis History of tubal ligation History of cataract extraction History of coronary artery stent placement (2014) Hx of foot surgery History of hysterectomy Family History Family History Mother Family history of Alzheimer's disease, Onset Age: 82 Sibling Family history of diabetes mellitus in first degree relative Diabetes mellitus Family history of congenital heart disease Father Family history of emphysema Family history of congenital heart disease Other Hypertension Social History Social History (Updated 02/12/25 @ 07:26 by Bev Guzman DO) Social History: The patient reports he lives in her own home. One of her sons lives with her. Her granddaughter Cordelia helps her significantly. She is a former smoker she smoked 0.5 packs of cigarettes per day from the time she was a teenager until age 59. She denies any history of alcohol use or illicit substance use. She ambulates with a Rollator. Code status: Full code. Healthcare power of workers compensation attorney: Cordelia Christianson (granddaughter) Smoking packs per day: 0.5 Smoking cigarettes per day: 10.0 Years smoked: 40 Smoking pack-years: 20.00 Smoking status: Former smoker Tobacco type: cigarettes Second hand tobacco smoke exposure: No Smoking end date: 11/13/14 Additional smoking assessment comments: quit 2013 Alcohol intake: never Substance use: never Substance use type: does not use Do You Feel Safe in your Home?: Yes Lack of Transportation: No Lack of Food: Never True Current Housing: I Have Housing Concerned About Future Housing: No Difficulty Paying Gas/Electric Bills: No Difficulty Paying for Meds: No Currently Unemployed: No Education: High School Diploma/GED Difficulty w/ Childcare or Family Care: No Living arrangements: with family Additional living arrangements comments: Son Occupation/Education: retired Gender identity (if verbalized by the patient): Female Spiritual care concerns: No Meds Home Medications and Allergies Home Medications ?Medication ?Instructions ?Recorded ?Confirmed ?Type clopidogrel 75 mg tablet (Plavix) 75 mg PO QAM 12/02/19 02/11/25 History nitroglycerin 0.4 mg sublingual 0.4 mg sublingual Q5M PRN Chest 12/02/19 02/11/25 History tablet Pain oxybutynin chloride 15 mg 15 mg PO DAILY 12/02/19 02/11/25 History tablet,extended release 24 hr ranolazine 500 mg tablet,extended 500 mg PO BID 03/24/21 02/11/25 History release,12 hr rosuvastatin 40 mg tablet 40 mg PO DAILY 05/09/23 02/11/25 History zoledronic acid 5 mg/100 mL in 1 ea IV DIRECTED 12/11/23 02/11/25 History mannitol 5 %-water intravenous piggybck methenamine hippurate 1 gram tablet 1 g PO BID 02/06/24 02/11/25 History felodipine 10 mg tablet,extended 10 mg PO QAM #90 tabs 04/16/24 02/11/25 Rx release 24 hr Stiolto Respimat 2.5 mcg-2.5 See Rx Instructions .Route 05/01/24 02/11/25 Rx mcg/actuation solution for .COMPLEX #12 grams inhalation (tiotropium-olodaterol) folic acid 1 mg tablet 1 mg PO DAILY #90 tabs 05/22/24 02/11/25 Rx levothyroxine 88 mcg tablet 88 mcg PO QAM #90 tabs 05/22/24 02/11/25 Rx albuterol sulfate 90 mcg/actuation 1 - 2 inh inhalation Q4-6H PRN 06/07/24 02/11/25 Rx aerosol inhaler shortness of breath or wheezing #8.5 grams isosorbide mononitrate 30 mg 30 mg PO DAILY 11/25/24 02/11/25 History tablet,extended release 24 hr carvedilol 25 mg tablet 25 mg PO Q12H #180 tabs 12/19/24 02/11/25 Rx lansoprazole 15 mg capsule,delayed 15 mg PO DAILY PRN acid reflux 01/10/25 02/11/25 History release apixaban 5 mg tablet (Eliquis) 5 mg PO Q12HR #60 tabs 01/28/25 02/11/25 Rx ipratropium 0.5 mg-albuterol 3 mg 3 ml inhalation Q6HRT #90 vials 01/28/25 02/11/25 Rx (2.5 mg base)/3 mL nebulization soln pantoprazole 40 mg tablet,delayed 40 mg PO QAM #30 tabs 01/28/25 02/11/25 Rx release sennosides 8.6 mg tablet (Senokot) 8.6 mg PO DAILY PRN Constipation 01/28/25 02/12/25 Rx #30 tabs acetaminophen 500 mg tablet 500 mg PO Q6H PRN fever or pain 02/11/25 02/11/25 History calcium carbonate (Antacid 200 mg PO QID PRN dyspepsia 02/11/25 02/11/25 History (calcium carbonate)) guaifenesin 600 mg tablet, 1,200 mg PO Q12HR PRN congestion 02/11/25 02/11/25 History extended release 12 hr (Mucus Relief ER) ondansetron 4 mg disintegrating 4 mg translingual Q8H PRN nausea 02/11/25 02/11/25 History tablet and vomiting polyethylene glycol 3350 17 gram 17 g PO QAM PRN constipation 02/12/25 02/12/25 History oral powder packet (Miralax) Allergies Allergy/AdvReac Type Severity Reaction Status Date / Time No Known Allergies Allergy Verified 01/13/25 09:11 Vital Signs Vital Signs - 24 hr 02/11/25 17:34 02/11/25 19:33 02/11/25 20:15 Temperature 97.9 F Pulse Rate 96 95 90 Respiratory Rate 16 25 H 16 Blood Pressure 130/67 139/67 139/67 Pulse Oximetry 99 96 98 Oxygen Delivery Room Air Oxygen Flow Rate 02/11/25 20:51 02/11/25 21:21 02/11/25 23:16 Temperature 97.7 F Pulse Rate 90 86 92 Respiratory Rate 18 16 16 Blood Pressure 126/68 121/105 H 129/52 L Pulse Oximetry 96 96 96 Oxygen Delivery Oxygen Flow Rate 02/12/25 00:00 02/12/25 00:00 02/12/25 03:43 Temperature 99.2 F Pulse Rate 91 88 Respiratory Rate 16 Blood Pressure 106/56 L Pulse Oximetry 98 99 Oxygen Delivery Nasal Cannula Oxygen Flow Rate 4 02/12/25 04:00 02/12/25 04:00 Temperature Pulse Rate 81 Respiratory Rate Blood Pressure Pulse Oximetry 98 Oxygen Delivery Nasal Cannula Oxygen Flow Rate 4 Exam 2 Narrative: Weight 71.4 kg BMI 27.9 Const: Other: Acutely ill-appearing, appears older than stated age, height weight proportionate HENMT: Other: Mucous membranes are dry, edentulous in upper and lower jaw, head is normocephalic atraumatic Eyes: Other: Positive conjunctival pallor, no scleral icterus, pupils are equal and reactive with evidence of bilateral lens replacements Neck: Other: No JVD, no lymphadenopathy Resp: Other: Clear to auscultation bilaterally, no increased work of breathing Cardio: Other: Regular rate, regular rhythm, 2+ bilateral radial and pedal pulses, no murmur GI: Other: Soft, nontender, nondistended, positive bowel sounds, no organomegaly : Other: Depends in place Skin: Other: Jaundice, underlying pallor, bruising to the tops of the feet bilaterally, skin of the lower extremities is tight and shiny Neuro: Other: Alert orient x4, speech is clear, no facial asymmetry Extrem: Other: Marked edema bilateral lower extremities which is symmetrical, bruising to the dorsum of the feet bilaterally on the right side more to the toes on the left 8 just proximal to the toes, patient moves all extremities equally, 5/5 amr physician strength bilateral H&P: Results Labs Labs: Short CBC 02/11/25 02/12/25 Range/Units 18:04 04:16 WBC 29.4 H 24.5 H (4.5-10.0) K/mm3 Hgb 9.0 L 7.5 L (12.0-15.0) g/dL Hct 26.7 L 22.2 L (37.0-47.0) % Plt Count 492 H 409 H (150-375) k/mm3 BMP 02/11/25 02/12/25 18:04 04:16 Sodium 132 L 133 L Potassium 3.3 L 3.2 L Chloride 97 L 102 Carbon Dioxide 13 L 13 L BUN 81 H D 75 H Creatinine 6.19 H 5.12 H Glucose 105 78 Calcium 8.1 L 6.8 L Cardiac Enzymes 02/12/25 Range/Units 04:16 Total Creatine Kinase 74 (30-135) U/L Liver Function 02/11/25 02/12/25 Range/Units 18:04 04:16 Total Bilirubin 0.4 0.3 (0.2-1.3) mg/dL AST 24 20 (14-36) U/L ALT 21 17 (6-35) U/L Alkaline Phosphatase 165 H 143 H (38-126) U/L Albumin 3.5 2.9 L (3.5-5.1) g/dL Urine 02/11/25 Range/Units 18:54 Urine Color Yellow (Yellow) Urine Appearance Turbid H (Clear) Urine pH 6.5 (5.0-9.0) Ur Specific [place] 1.014 (1.001-1.035) Urine Protein 3+ H (Negative) mg/dL Urine Glucose (UA) Negative (Negative) mg/dL Laboratory Tests 02/12/25 04:16 02/12/25 04:16 02/11/25 02/11/25 02/12/25 18:04 18:54 04:16 WBC 29.4 H 24.5 H RBC 2.83 L 2.36 L Hgb 9.0 L 7.5 L Hct 26.7 L 22.2 L MCV 94.3 94.1 MCH 31.8 31.8 MCHC 33.7 33.8 RDW 17.3 H 17.3 H Plt Count 492 H 409 H MPV 9.7 9.8 Immature Gran % (Auto) Not Reportable Not Reportable Neut % (Auto) Not Reportable Not Reportable Lymph % (Auto) Not Reportable Not Reportable [place] % (Auto) Not Reportable Not Reportable Eos % (Auto) Not Reportable Not Reportable Baso % (Auto) Not Reportable Not Reportable Lymph # (Auto) Not Reportable Not Reportable [place] # (Auto) Not Reportable Not Reportable Eos # (Auto) Not Reportable Not Reportable Baso # (Auto) Not Reportable Not Reportable Abs Immat Gran (auto) Not Reportable Not Reportable Absolute Neuts (auto) Not Reportable Not Reportable Absolute Nucleated RBC Not Reportable Not Reportable Total Counted 100 100 Neutrophils % (Manual) 79 H 80 H Band Neutrophils % 8 H 10 H Lymphocytes % (Manual) 8 L 6 L Monocytes % (Manual) 5 4 Nucleated RBC % Not Reportable Not Reportable Abs Neuts (Manual) 25.57 H 22.05 H Abs Lymphs (Manual) 2.35 1.47 Abs Monocytes (Manual) 1.47 H 0.98 H Platelet Estimate Increased Increased Hypochromasia 1+ Poikilocytosis 1+ Ovalocytes 1+ 1+ Raeann Cells 1+ Schistocytes None seen None seen PT 20.5 H INR 1.7 APTT 35.1 Sodium 132 L 133 L Potassium 3.3 L 3.2 L Chloride 97 L 102 Carbon Dioxide 13 L 13 L Anion Gap 22 H 18 H BUN 81 H D 75 H Creatinine 6.19 H 5.12 H Estim Creat Clear Calc 8 9 Estimated GFR 7 L 8 L Glucose 105 78 Lactic Acid 1.6 Calcium 8.1 L 6.8 L Phosphorus 7.4 H Magnesium 2.2 Total Bilirubin 0.4 0.3 AST 24 20 ALT 21 17 Alkaline Phosphatase 165 H 143 H Total Creatine Kinase 74 C-Reactive Protein 22.1 H NT-Pro-B Natriuret Pep 3380 H Total Protein 8.0 6.0 L Albumin 3.5 2.9 L Lipase 43 Urine Color Yellow Urine Appearance Turbid H Urine pH 6.5 Ur Specific [place] 1.014 Urine Protein 3+ H Urine Glucose (UA) Negative Urine Ketones Negative Ur Blood (Man) 3+ H Urine Nitrate Negative Urine Bilirubin Negative Urine Urobilinogen 0.2 Add Ur Microanalysis Reviewed Leukocyte Esterase Rfl 2+ H Urine RBC 21-50 H Urine WBC >100 H Ur Squamous Epith Cells None seen Urine Bacteria 4+ H Urine Casts 0-2 Influenza A (RT-PCR) Negative Influenza B (RT-PCR) Negative RSV (RT-PCR) Negative SARS-CoV-2 RNA (RT-PCR) Negative Impressions Abdomen/Pelvis CT 02/11/25 19:34 IMPRESSION: Left basilar consolidation, an interval change from prior. Findings within the colon suggesting a diarrheal illness, for which clinical correlation is needed. Chest X-Ray 02/11/25 19:58 IMPRESSION: No focal infiltrate or effusion. EKG reviewed All imaging and EKGs personally reviewed and interpreted. And unless stated otherwise agree with radiologic and cardiology interpretation. Assessment and Plan Assessment and plan (1) Sepsis: Qualifiers: Sepsis type: sepsis due to unspecified organism Sepsis acute organ dysfunction status: with acute organ dysfunction Severe sepsis acute organ dysfunction type: acute renal failure Acute renal failure type: unspecified S evere sepsis shock status: without septic shock Qualified Code(s): A41.9 - Sepsis, unspecified organism; R65.20 - Severe sepsis without septic shock; N17.9 - Acute kidney failure, unspecified Code(s): A41.9 - Sepsis, unspecified organism Status: Acute (2) Diarrhea: Qualifiers: Diarrhea type: infectious Qualified Code(s): A09 - Infectious gastroenteritis and colitis, unspecified Code(s): R19.7 - Diarrhea, unspecified Status: Acute (3) Acute respiratory failure with hypoxia: Code(s): J96.01 - Acute respiratory failure with hypoxia Status: Acute (4) Acute UTI: Code(s): N39.0 - Urinary tract infection, site not specified Status: Acute (5) Acute kidney injury: Code(s): N17.9 - Acute kidney failure, unspecified Status: Acute (6) Chronic kidney disease, stage 3: Qualifiers: Chronic kidney disease stage 3 subtype: stage 3a (GFR 45-59) Qualified Code(s): N18.31 - Chronic kidney disease, stage 3a Code(s): N18.30 - Chronic kidney disease, stage 3 unspecified Status: Acute (7) Chronic anticoagulation: Code(s): 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 Diarrhea suspected to be infectious. Given clinical history of recent antibiotic use and marked leukocytosis most likely culprit is C diff. unfortunately patient not has not had a bowel movement since stool studies have been ordered. She had taken Imodium just prior to coming to the hospital. She has been started on empiric antibiotic therapy for antibiotic started guidelines for colitis with Rocephin and Flagyl. Has a anion gap acidosis with severe depletion in serum bicarb. Patient been placed on a bicarb drip. Will consult Nephrology as a think the patient's renal failure may be multifactorial. She has 3+ protein in her urine and may have some component of possible nephrotic range proteinuria that is contributing to her lower extremity swelling. The patient had 2 recent echo cardiograms within the last 30 days no need to repeat echo at this time. The patient does have marked lower extremity edema but is not having shortness of breath or orthopnea that would suggest CHF exacerbation. Thus I think the lower extremity edema is due to third-spacing of fluid and hypoalbuminemia more so than CHF. Will continue to monitor urine output closely. Will ask nursing staff to check postvoid residual to answer patient does not have a component of urinary retention complicating her acute kidney injury specially in the setting of chronic use of oxybutynin. Will wean oxygen as tolerated. The patient has not had any documented hypoxia in the chart. Will continue home antihypertensives, PPI therapy, cardiac medications anti-platelet medications, and oxybutynin. Quality VTE Prophylaxis VTE prophylaxis: pharmacologic ordered (Continue home Eliquis) Hospitalist [facility] Advance Care Plan I have confirmed that the patient's Advanced Care Plan is present, code status is documented, or surrogate decision maker is listed in patient medical record.: Yes Medication Reconciliation I have utilized all available resources to obtain, update and review the patients current medications (includes all prescriptions, OTC, herbals, cannabis, and nutritional supplements).: Yes
[2025-02-12] MEDS: SODIUM BICARBONATE 8.4% 150 MEQ in DEXTROSE 5% 1,000 ML 950 ML IV CONT ×2 (09:00→18:01)
[2025-02-12] MEDS: IPRATROPIUM 0.5 MG/ALBUTEROL SULFATE 2.5 MG AMPUL.NEB 3 ML INHALATION ×3 (09:11→19:59)
[2025-02-12] MEDS: UMECLIDINIUM/VILANTEROL 62.5-25 MCG ELLIPTA 1 PUFF INHALATION (09:12)
[2025-02-12] MEDS: oxyBUTYnin CHLORIDE XL 5 MG TAB.ER.24 15 MG PO (09:31)
[2025-02-12] MEDS: ISOSORBIDE MONONITRATE 30 MG TAB.ER.24H PO (09:33)
[2025-02-12] MEDS: PANTOPRAZOLE 40 MG TABLET PO (09:33)
[2025-02-12] MEDS: ROSUVASTATIN 20 MG TABLET 40 MG PO (09:33)
[2025-02-12] MEDS: carvediloL 25 MG TABLET PO ×2 (09:33→20:29)
[2025-02-12] MEDS: FELODIPINE 5 MG TAB CR 10 MG PO (09:34)
[2025-02-12] MEDS: RANOLAZINE 500 MG TAB.ER.12H PO ×2 (09:35→20:29)
[2025-02-12] MEDS: CLOPIDOGREL BISULFATE 75 MG TABLET PO (09:36)
[2025-02-12] MEDS: APIXABAN 5 MG TABLET PO ×2 (10:10→20:29)
[2025-02-12 10:28] LABS: Iron 21 ug/dL (37-170)
[2025-02-12 10:38] LABS: Percent Iron Saturation 10 % (20-50)
--- NOTE | 2025-02-12 13:27 | P.CONNP_ITS ---
Assessment and Plan Assessment and plan (1) Acute kidney injury: Code(s): N17.9 - Acute kidney failure, unspecified Status: Acute Assessment and Plan: * as evidenced by admission labs * multifactorial etiology: * prerenal factors (diarrhea) * urinary retention * early sepsis/infection (UTI + pneumonia) * evaluation to date noted: * renal u/s with mild right hydronephrosis * bladder scan with evidence of urinary retention * urine electrolytes non prerenal * urine eosinophils negative * CPK normal * UA suggestive of infection * proteinuria noted * calles in place now * agree with bicarb fluids for now * follow trend of repeat labs and UOP (2) Chronic kidney disease, stage 3: Qualifiers: Chronic kidney disease stage 3 subtype: stage 3a (GFR 45-59) Qualified Code(s): N18.31 - Chronic kidney disease, stage 3a Code(s): N18.30 - Chronic kidney disease, stage 3 unspecified Status: Chronic Assessment and Plan: * baseline creatinine runs around 1.4 - 1.9mg/dl in the last few years * however, has been as low as 0.9 - 1.1mg/dl * secondary to 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 (3) Urinary tract infection: Code(s): N39.0 - Urinary tract infection, site not specified Status: Acute Assessment and Plan: * admission UA highly suggestive * on antibiotics * follow culture results (4) Pneumonia: Code(s): J18.9 - Pneumonia, unspecified organism Status: Acute Assessment and Plan: * as suggested by admission imaging * follow culture data * on antibiotics (5) Metabolic acidosis: Code(s): E87.20 - Acidosis, unspecified Status: Acute Assessment and Plan: * due to JOSR/ARF coupled from diarrhea * compensating with bicarb IVFs * follow trend of CO2 (6) Acute urinary retention: Code(s): R33.8 - Other retention of urine Status: Acute Assessment and Plan: * as noted by renal ultrasound and bladders scans * calles catheter in place * Urology consulted (7) Acute diarrhea: Code(s): R19.7 - Diarrhea, unspecified Status: Acute Assessment and Plan: * as noted by admission history * however, no episodes while hospitalized * CT A/P results noted * on immodium (8) Essential hypertension: Code(s): I10 - Essential (primary) hypertension Status: Chronic Assessment and Plan: * reasonable control * follow trend of hemodynamics I will continue to follow the patient with you while he remains hospitalized and make further recommendations as deemed necessary. Thank you for allowing me to participate in the care of this patient. L History of Present Illness Reason for Consult Consult date: 02/12/25 Reason for consult: acute renal failure (on chronic kidney disease) Chief Complaint Chief complaint: sepsis, uti, acute kidney injury, possible c.diff History of Present Illness Narrative: The patient is a 69-year-old female with a past medical history as outlined below who presented to [facility] Emergency Room due to complaints of diarrhea and worsening lower extremity edema. The patient was recently hospitalized about a month ago for acute hypoxic respiratory failure secondary to a pulmonary embolism complicated by influenza and pneumonia. She was treated with antibiotics and anticoagulation and eventually improved and discharged in mid January of 2025. Following discharge, she had been doing reasonably well. However, about a week or so ago, she stated that she noted increasing lower extremity swelling/edema. The lower extremity swelling edema did not seem to improve with conservative therapy and she has never had issues with lower extremity swelling/ edema that has been this severe. Around the same time she also noted significant diarrhea which has been profuse but without any evidence blood. This has been complicated by some crampy abdominal pain as she denies any fears, chills, chest pain, or shortness of breath. Given her increasing lower extremity edema in association with diarrhea, she has noticed herself a become increasingly more weak and fatigued. She eventually presented to the ER for further assessment. Workup and evaluation emergency room demonstrated the patient be hemodynamically stable and in no acute distress. Routine blood tests were significant for severe acute kidney injury/acute renal failure in comparison to her baseline renal function complicated by severe metabolic acidosis it was felt that her renal dysfunction was related to volume depletion given her history of severe diarrhea prior to her presentation to the hospital. However, there was concern for possible sepsis as well and so after appropriate blood cultures, she was instituted on IV antibiotics as well as aggressive IV fluid resuscitation in the form bicarb drip. She was subsequently admitted to the hospital for further evaluation therapy. Since her admission, she has demonstrated evidence of urinary retention by bladder scan and post void residuals. She subsequently had a Calles catheter placed for treatment of this issue. Renal consultation was requested due to her acute kidney injury/acute renal failure on top of her baseline chronic kidney disease. The patient is quite familiar to me as I take care of her in the office with regard to her underlying renal insufficiency. Her baseline creatinine has fluctuated to extremes but seems to average out around 1.4 - 1.9 mg/dL and is felt to be secondary to her solitary kidney (and associated loss of nephron mass), hypertension, and age- related change. On her last office visit in September of 2024, her creatinine was 1.45 mg/dL. On admission to the hospital, her creatinine was in the 5ish range but seems to have improved with ongoing interventions in the form of IV fluid resuscitation as well as antibiotics. Her urinalysis seems to be consistent with a urinary tract infection as well. Currently, at the time my visit, she appears to be in no acute distress. Review of Systems 2 Review of Systems: As per HPI. [facility] Past Medical History Medical History (Updated 02/15/25 @ 07:23 by Dominick Quintero MD) Coronary artery disease Chronic obstructive pulmonary disease Chronic kidney disease, stage 3 Abdominal aortic aneurysm mild dilatation of the distal aorta measuring 3.[address] scan in November 2024 Hypercholesterolemia Deep venous thrombosis (2014) Chronic anticoagulation Paroxysmal atrial fibrillation Essential hypertension Gastro-esophageal reflux disease without esophagitis Hunner's ulcer Pulmonary embolism (2014) 2014 and January 2025 History of tobacco abuse Anxiety Gout Osteoporosis Arthritis Cancer of left kidney status post left nephrectomy Ventral hernia Hemorrhoids Sleep apnea does not use CPAP Migraine Glaucoma Hypothyroidism Peripheral vascular disease, unspecified Surgical History Surgical History History of right breast biopsy History of open reduction and internal fixation (ORIF) procedure repair of bilateral wrist and left foot fractures History of cystoscopy History of hernia repair History of vascular surgery bifemoral bypass left femoral and popliteal stents History of ventral hernia repair History of right shoulder replacement History of cholecystectomy History of appendectomy History of left nephrectomy History of splenectomy retroperitoneal fibrosis History of tubal ligation History of cataract extraction History of coronary artery stent placement (2014) Hx of foot surgery History of hysterectomy Family History Family History Mother Family history of Alzheimer's disease, Onset Age: 82 Sibling Family history of diabetes mellitus in first degree relative Diabetes mellitus Family history of congenital heart disease Father Family history of emphysema Family history of congenital heart disease Other Hypertension Social History Social History (Updated 02/12/25 @ 07:26 by Bev Guzman DO) Social History: The patient reports he lives in her own home. One of her sons lives with her. Her granddaughter Cordelia helps her significantly. She is a former smoker she smoked 0.5 packs of cigarettes per day from the time she was a teenager until age 59. She denies any history of alcohol use or illicit substance use. She ambulates with a Rollator. Code status: Full code. Healthcare power of contract attorney: Cordelia Christianson (granddaughter) Smoking packs per day: 0.5 Smoking cigarettes per day: 10.0 Years smoked: 40 Smoking pack-years: 20.00 Smoking status: Former smoker Tobacco type: cigarettes Second hand tobacco smoke exposure: No Smoking end date: 11/13/14 Additional smoking assessment comments: quit 2013 Alcohol intake: never Substance use: never Substance use type: does not use Do You Feel Safe in your Home?: Yes Lack of Transportation: No Lack of Food: Never True Current Housing: I Have Housing Concerned About Future Housing: No Difficulty Paying Gas/Electric Bills: No Difficulty Paying for Meds: No Currently Unemployed: No Education: High School Diploma/GED Difficulty w/ Childcare or Family Care: No Living arrangements: with family Additional living arrangements comments: Son Occupation/Education: retired Gender identity (if verbalized by the patient): Female Spiritual care concerns: No Meds Home Medications and Allergies Home Medications ?Medication ?Instructions ?Recorded ?Confirmed ?Type clopidogrel 75 mg tablet (Plavix) 75 mg PO QAM 12/02/19 02/11/25 History nitroglycerin 0.4 mg sublingual 0.4 mg sublingual Q5M PRN Chest 12/02/19 02/11/25 History tablet Pain oxybutynin chloride 15 mg 15 mg PO DAILY 12/02/19 02/11/25 History tablet,extended release 24 hr ranolazine 500 mg tablet,extended 500 mg PO BID 03/24/21 02/11/25 History release,12 hr rosuvastatin 40 mg tablet 40 mg PO DAILY 05/09/23 02/11/25 History zoledronic acid 5 mg/100 mL in 1 ea IV DIRECTED 12/11/23 02/11/25 History mannitol 5 %-water intravenous piggybck methenamine hippurate 1 gram tablet 1 g PO BID 02/06/24 02/11/25 History felodipine 10 mg tablet,extended 10 mg PO QAM #90 tabs 04/16/24 02/11/25 Rx release 24 hr Stiolto Respimat 2.5 mcg-2.5 See Rx Instructions .Route 05/01/24 02/11/25 Rx mcg/actuation solution for .COMPLEX #12 grams inhalation (tiotropium-olodaterol) folic acid 1 mg tablet 1 mg PO DAILY #90 tabs 05/22/24 02/11/25 Rx levothyroxine 88 mcg tablet 88 mcg PO QAM #90 tabs 05/22/24 02/11/25 Rx albuterol sulfate 90 mcg/actuation 1 - 2 inh inhalation Q4-6H PRN 06/07/24 02/11/25 Rx aerosol inhaler shortness of breath or wheezing #8.5 grams isosorbide mononitrate 30 mg 30 mg PO DAILY 11/25/24 02/11/25 History tablet,extended release 24 hr carvedilol 25 mg tablet 25 mg PO Q12H #180 tabs 12/19/24 02/11/25 Rx lansoprazole 15 mg capsule,delayed 15 mg PO DAILY PRN acid reflux 01/10/25 02/11/25 History release apixaban 5 mg tablet (Eliquis) 5 mg PO Q12HR #60 tabs 01/28/25 02/11/25 Rx ipratropium 0.5 mg-albuterol 3 mg 3 ml inhalation Q6HRT #90 vials 01/28/25 02/11/25 Rx (2.5 mg base)/3 mL nebulization soln pantoprazole 40 mg tablet,delayed 40 mg PO QAM #30 tabs 01/28/25 02/11/25 Rx release sennosides 8.6 mg tablet (Senokot) 8.6 mg PO DAILY PRN Constipation 01/28/25 02/12/25 Rx #30 tabs acetaminophen 500 mg tablet 500 mg PO Q6H PRN fever or pain 02/11/25 02/11/25 History calcium carbonate (Antacid 200 mg PO QID PRN dyspepsia 02/11/25 02/11/25 History (calcium carbonate)) guaifenesin 600 mg tablet, 1,200 mg PO Q12HR PRN congestion 02/11/25 02/11/25 History extended release 12 hr (Mucus Relief ER) ondansetron 4 mg disintegrating 4 mg translingual Q8H PRN nausea 02/11/25 02/11/25 History tablet and vomiting polyethylene glycol 3350 17 gram 17 g PO QAM PRN constipation 02/12/25 02/12/25 History oral powder packet (Miralax) Allergies Allergy/AdvReac Type Severity Reaction Status Date / Time No Known Allergies Allergy Verified 01/13/25 09:11 Vital Signs Vital Signs Temp Pulse Resp BP Pulse Ox O2 Del Method O2 Flow Rate 02/12/25 12:00 98.3 F 84 20 114/55 L 94 02/12/25 11:35 Room Air 02/12/25 10:00 92 02/12/25 09:33 86 02/12/25 09:32 86 16 02/12/25 09:13 82 16 02/12/25 09:13 96 Room Air 02/12/25 08:00 82 02/12/25 08:00 Room Air 02/12/25 08:00 98.3 F 83 20 113/57 L 98 02/12/25 04:00 81 02/12/25 04:00 98 Nasal Cannula 4 02/12/25 03:43 99.2 F 88 16 106/56 L 99 02/12/25 00:00 91 02/12/25 00:00 98 Nasal Cannula 4 02/11/25 23:16 97.7 F 92 16 129/52 L 96 02/11/25 21:21 86 16 121/105 H 96 02/11/25 20:51 90 18 126/68 96 02/11/25 20:15 90 16 139/67 98 02/11/25 19:33 95 25 H 139/67 96 Exam 2 Narrative: GENERAL APPEARANCE: elderly but well developed well nourished female in no acute distress HEENT: normocephalic, atraumatic, normal conjunctiva and sclera, nares patient NECK: no lymphadenopathy, thyromegaly, or JVD MOUTH: dry lips, teeth, and gums CARDIOVASCULAR: RRR, normal S1 and S2, no rub RESPIRATORY: clear to auscultation bilaterally ABDOMEN: soft, nontender, nondistended, positive bowel sounds present EXTREMITIES: no evidence of cyanosis, clubbing, 2+ edema NEUROLOGICAL: alert and oriented x 3; CN II - XII intact bilaterally; no focal deficits noted Results Lab Results 02/15/25 04:22 02/15/25 04:22 Lab results: Most recent lab results Calcium 6.8 mg/dL (8.4-10.2) L 02/12/25 04:16 Phosphorus 7.4 mg/dL (2.5-4.5) H 02/12/25 04:16 Magnesium 2.2 mg/dL (1.6-2.3) 02/12/25 04:16 Urine Creatinine 41.9 mg/dL 02/12/25 14:17 Urine Creatinine Cancelled 02/12/25 14:17
--- NOTE | 2025-02-12 15:02 | PM.IMPN ---
Progress Note: A&P Assessment and Plan (1) Sepsis: Qualifiers: Acute renal failure type: unspecified Sepsis acute organ dysfunction status: with acute organ dysfunction Sepsis type: sepsis due to unspecified organism Severe sepsis acute organ dysfunction type: acute renal failure Severe sepsis shock status: without septic shock Qualified Code(s): A41.9 - Sepsis, unspecified organism; R65.20 - Severe sepsis without septic shock; N17.9 - Acute kidney failure, unspecified Code(s): A41.9 - Sepsis, unspecified organism Status: Acute (2) Diarrhea: Qualifiers: Diarrhea type: infectious Qualified Code(s): A09 - Infectious gastroenteritis and colitis, unspecified Code(s): R19.7 - Diarrhea, unspecified Status: Acute (3) Acute respiratory failure with hypoxia: Code(s): J96.01 - Acute respiratory failure with hypoxia Status: Acute (4) Acute UTI: Code(s): N39.0 - Urinary tract infection, site not specified Status: Acute (5) Acute kidney injury: Code(s): N17.9 - Acute kidney failure, unspecified Status: Acute (6) Chronic kidney disease, stage 3: Qualifiers: Chronic kidney disease stage 3 subtype: stage 3a (GFR 45-59) Qualified Code(s): N18.31 - Chronic kidney disease, stage 3a Code(s): N18.30 - Chronic kidney disease, stage 3 unspecified Status: Acute (7) Chronic anticoagulation: Code(s): Z79.01 - correction (current) use of anticoagulants Status: Acute Plan Sepsis From pneumonia and diarrhea CT AP showed diarrhea disease and LLL Pneumonia Blood cultures Continue Rocephin, Doxy and Flagyl, IVF monitor Pneumonia LLL pneumonia per CT AP COntineu above care Diarrhea No inflammation per CT Patient noted much improvement, however, of noted she has been on imodium since onset and thus has likely arrested the diarrhea continue above care adn IVF JOSR Cr 5.12 from 6.19 From dehydration Continue IVF Iron deficiency anemia hb 7.5 down from 9 Isat 10, Venofer 200/1000 FOBT ordered Patient had a recent PE last month and was started on Eliquis GI consulted to rule out GI bleed since PE is recent will continue ELiquis for now pending GI eval PE continue Eliquis as above Venous doppler negative for DVT HTN titrate home meds with clinical course PAD s/p stent continue Home meds JANNY on CPAP DVT prophylaxis on Eliquis The patient has acute on chronic kidney disease secondary most likely to severe volume depletion from diarrhea. Diarrhea suspected to be infectious. Given clinical history of recent antibiotic use and marked leukocytosis most likely culprit is C diff. unfortunately patient not has not had a bowel movement since stool studies have been ordered. She had taken Imodium just prior to coming to the hospital. She has been started on empiric antibiotic therapy for antibiotic started guidelines for colitis with Rocephin and Flagyl. Has a anion gap acidosis with severe depletion in serum bicarb. Patient been placed on a bicarb drip. Will consult Nephrology as a think the patient's renal failure may be multifactorial. She has 3+ protein in her urine and may have some component of possible nephrotic range proteinuria that is contributing to her lower extremity swelling. The patient had 2 recent echo cardiograms within the last 30 days no need to repeat echo at this time. The patient does have marked lower extremity edema but is not having shortness of breath or orthopnea that would suggest CHF exacerbation. Thus I think the lower extremity edema is due to third-spacing of fluid and hypoalbuminemia more so than CHF. Will continue to monitor urine output closely. Will ask nursing staff to check postvoid residual to answer patient does not have a component of urinary retention complicating her acute kidney injury specially in the setting of chronic use of oxybutynin. Will wean oxygen as tolerated. The patient has not had any documented hypoxia in the chart. Will continue home antihypertensives, PPI therapy, cardiac medications anti-platelet medications, and oxybutynin. Subjective Date/time seen: 02/12/25 15:02 Interval history: Comfortable at bedside Noted mild soft stools, however patient noted she took imodium since the start of the diarrhea Review of Systems Review of Systems: 12 systems were reviewed with pertinent positives and negatives per HPI. Except as documented in the HPI, all other systems were reviewed and are negative. Exam Narrative: Weight 71.4 kg BMI 27.9 Const: Other: Acutely ill-appearing, appears older than stated age, height weight proportionate HENMT: Other: Mucous membranes are dry, edentulous in upper and lower jaw, head is normocephalic atraumatic Eyes: Other: Positive conjunctival pallor, no scleral icterus, pupils are equal and reactive with evidence of bilateral lens replacements Neck: Other: No JVD, no lymphadenopathy Resp: Other: Clear to auscultation bilaterally, no increased work of breathing Cardio: Other: Regular rate, regular rhythm, 2+ bilateral radial and pedal pulses, no murmur GI: Other: Soft, nontender, nondistended, positive bowel sounds, no organomegaly : Other: Depends in place Skin: Other: Jaundice, underlying pallor, bruising to the tops of the feet bilaterally, skin of the lower extremities is tight and shiny Neuro: Other: Alert orient x4, speech is clear, no facial asymmetry Extrem: Other: Marked edema bilateral lower extremities which is symmetrical, bruising to the dorsum of the feet bilaterally on the right side more to the toes on the left 8 just proximal to the toes, patient moves all extremities equally, 5/5 chief guard strength bilateral Objective Data Vital Signs Vital Signs: Vital Signs - 24 hr 02/11/25 17:34 02/11/25 19:33 02/11/25 20:15 Temperature 97.9 F Pulse Rate 96 95 90 Respiratory Rate 16 25 H 16 Blood Pressure 130/67 139/67 139/67 Pulse Oximetry 99 96 98 Oxygen Delivery Room Air Oxygen Flow Rate 02/11/25 20:51 02/11/25 21:21 02/11/25 23:16 Temperature 97.7 F Pulse Rate 90 86 92 Respiratory Rate 18 16 16 Blood Pressure 126/68 121/105 H 129/52 L Pulse Oximetry 96 96 96 Oxygen Delivery Oxygen Flow Rate 02/12/25 00:00 02/12/25 00:00 02/12/25 03:43 Temperature 99.2 F Pulse Rate 91 88 Respiratory Rate 16 Blood Pressure 106/56 L Pulse Oximetry 98 99 Oxygen Delivery Nasal Cannula Oxygen Flow Rate 4 02/12/25 04:00 02/12/25 04:00 02/12/25 08:00 Temperature 98.3 F Pulse Rate 81 83 Respiratory Rate 20 Blood Pressure 113/57 L Pulse Oximetry 98 98 Oxygen Delivery Nasal Cannula Oxygen Flow Rate 4 02/12/25 08:00 02/12/25 08:00 02/12/25 09:13 Temperature Pulse Rate 82 Respiratory Rate Blood Pressure Pulse Oximetry 96 Oxygen Delivery Room Air Room Air Oxygen Flow Rate 02/12/25 09:13 02/12/25 09:32 02/12/25 09:33 Temperature Pulse Rate 82 86 86 Respiratory Rate 16 16 Blood Pressure Pulse Oximetry Oxygen Delivery Oxygen Flow Rate 02/12/25 10:00 02/12/25 11:35 02/12/25 12:00 Temperature 98.3 F Pulse Rate 92 84 Respiratory Rate 20 Blood Pressure 114/55 L Pulse Oximetry 94 Oxygen Delivery Room Air Oxygen Flow Rate 02/12/25 12:00 02/12/25 14:00 02/12/25 14:27 Temperature Pulse Rate 84 81 84 Respiratory Rate 16 Blood Pressure Pulse Oximetry Oxygen Delivery Oxygen Flow Rate 02/12/25 14:38 Temperature Pulse Rate 83 Respiratory Rate 16 Blood Pressure Pulse Oximetry Oxygen Delivery Oxygen Flow Rate Intake/Output Intake/Output: Intake & Output 02/09/25 02/10/25 02/11/25 02/12/25 23:59 23:59 23:59 23:59 Intake Total 1050 1760 Output Total 200 Balance 850 1760 Meds/Results Medications: Active Medications Generic Name Dose Route Start Last Admin Trade Name Freq PRN Reason Stop Dose Admin Acetaminophen 650 mg 02/11/25 20:54 Acetaminophen 325 Mg Tablet PO Q4H PRN Mild Pain (1-3) or Fever Hydrocodone Bitart/Acetaminophen 1 tab 02/11/25 20:54 02/12/25 12:25 Hydrocodone/Acetaminophen (*Crx) 5-325 Mg Tablet PO 1 tab Q4H PRN Administration Pain Rated 4-6 Albuterol/Ipratropium 3 ml 02/12/25 08:00 02/12/25 14:26 Ipratropium 0.5 Mg/Albuterol Sulfate 2.5 Mg Ampul.Neb 3 Ml INHALATION 3 ml Q6HRT ENEDELIA Administration Apixaban 5 mg 02/12/25 09:00 02/12/25 10:10 Apixaban 5 Mg Tablet PO 5 mg Q12HR ENEDELIA Administration Calcium Carbonate 200 mg 02/12/25 02:37 Calcium Carbonate (Tums) 500 Mg (200 Mg Elemental) PO QID PRN dyspepsia Carvedilol 25 mg 02/12/25 09:00 02/12/25 09:33 Carvedilol 25 Mg Tablet PO 25 mg Q12HR ENEDELIA Administration Clopidogrel Bisulfate 75 mg 02/12/25 09:00 02/12/25 09:36 Clopidogrel Bisulfate 75 Mg Tablet PO 75 mg QAM ENEDELIA Administration Felodipine 10 mg 02/12/25 09:00 02/12/25 09:34 Felodipine 5 Mg Tab Cr PO 10 mg QAM ENEDELIA Administration Ceftriaxone Sodium 1 gm in 50 mls @ 100 mls/hr 02/12/25 20:00 Rocephin 1 Gm/Ns 50 Ml IVPB Q24H ENEDELIA Sodium Bicarbonate 150 meq/ 1,100 mls @ 150 mls/hr 02/11/25 21:40 02/12/25 09:00 Dextrose IV CONT 150 mls/hr .Q7H20M ENEDELIA Administration Metronidazole 500 mg in 100 mls @ 100 mls/hr 02/12/25 12:00 02/12/25 12:25 Flagyl 500 Mg/Iso Soln 100 Ml IVPB 100 mls/hr Q6H ENEDELIA Administration Isosorbide Mononitrate 30 mg 02/12/25 09:00 02/12/25 09:33 Isosorbide Mononitrate 30 Mg Tab.Er.24h PO 30 mg DAILY ENEDELIA Administration Levothyroxine Sodium 88 mcg 02/12/25 06:30 02/12/25 06:40 Levothyroxine Sodium 88 Mcg Tablet PO 88 mcg DAILY@0630 COUNT INCLUDES THE [facility] Administration Nitroglycerin 0.4 mg 02/12/25 02:37 Nitroglycerin Sl 0.4 Mg Tablet SUBLINGUAL Q5M PRN Chest Pain Ondansetron HCl 4 mg 02/11/25 20:54 Ondansetron Inj 4 Mg/2 Ml Vial IV PUSH Q4H PRN Nausea Oxybutynin Chloride 15 mg 02/12/25 09:00 02/12/25 09:31 Oxybutynin Chloride Xl 5 Mg Tab.Er.24 PO 15 mg DAILY ENEDELIA Administration Pantoprazole Sodium 40 mg 02/12/25 02:55 Pantoprazole 40 Mg Tablet PO DAILY PRN acid reflux Pantoprazole Sodium 40 mg 02/12/25 09:00 02/12/25 09:33 Pantoprazole 40 Mg Tablet PO 40 mg QAM COUNT INCLUDES THE [facility] Administration Ranolazine 500 mg 02/12/25 09:00 02/12/25 09:35 Ranolazine 500 Mg Tab.Er.12h PO 500 mg Q12HR ENEDELIA Administration Rosuvastatin Calcium 40 mg 02/12/25 09:00 02/12/25 09:33 Rosuvastatin 20 Mg Tablet PO 40 mg DAILY ENEDELIA Administration Umeclidinium/Vilanterol 1 puff 02/12/25 08:00 02/12/25 09:12 Umeclidinium/Vilanterol 62.5-25 Mcg Ellipta INHALATION 1 puff DAILYRT ENEDELIA Administration Radiology Results: ITS Impressions Abdomen/Pelvis CT 02/11/25 19:34 IMPRESSION: Left basilar consolidation, an interval change from prior. Findings within the colon suggesting a diarrheal illness, for which clinical correlation is needed. Chest X-Ray 02/11/25 19:58 IMPRESSION: No focal infiltrate or effusion. Venous Doppler Study 02/12/25 11:17 IMPRESSION: 1: No lower extremity deep venous thrombosis. Renal Ultrasound 02/12/25 11:18 Impression: 1: Mild right hydronephrosis. Labs Labs: Laboratory Results - last 24 hr 02/11/25 02/11/25 02/12/25 18:04 18:54 04:16 WBC 29.4 H 24.5 H RBC 2.83 L 2.36 L Hgb 9.0 L 7.5 L Hct 26.7 L 22.2 L MCV 94.3 94.1 MCH 31.8 31.8 MCHC 33.7 33.8 RDW 17.3 H 17.3 H Plt Count 492 H 409 H MPV 9.7 9.8 Immature Gran % (Auto) Not Reportable Not Reportable Neut % (Auto) Not Reportable Not Reportable Lymph % (Auto) Not Reportable Not Reportable [place] % (Auto) Not Reportable Not Reportable Eos % (Auto) Not Reportable Not Reportable Baso % (Auto) Not Reportable Not Reportable Lymph # (Auto) Not Reportable Not Reportable [place] # (Auto) Not Reportable Not Reportable Eos # (Auto) Not Reportable Not Reportable Baso # (Auto) Not Reportable Not Reportable Abs Immat Gran (auto) Not Reportable Not Reportable Absolute Neuts (auto) Not Reportable Not Reportable Absolute Nucleated RBC Not Reportable Not Reportable Total Counted 100 100 Neutrophils % (Manual) 79 H 80 H Band Neutrophils % 8 H 10 H Lymphocytes % (Manual) 8 L 6 L Monocytes % (Manual) 5 4 Nucleated RBC % Not Reportable Not Reportable Abs Neuts (Manual) 25.57 H 22.05 H Abs Lymphs (Manual) 2.35 1.47 Abs Monocytes (Manual) 1.47 H 0.98 H Platelet Estimate Increased Increased Hypochromasia 1+ Poikilocytosis 1+ Ovalocytes 1+ 1+ [place] Cells 1+ Schistocytes None seen None seen PT 20.5 H INR 1.7 APTT 35.1 Sodium 132 L 133 L Potassium 3.3 L 3.2 L Chloride 97 L 102 Carbon Dioxide 13 L 13 L Anion Gap 22 H 18 H BUN 81 H D 75 H Creatinine 6.19 H 5.12 H Estim Creat Clear Calc 8 9 Estimated GFR 7 L 8 L Glucose 105 78 Lactic Acid 1.6 Calcium 8.1 L 6.8 L Phosphorus 7.4 H Magnesium 2.2 Iron TIBC % Saturation Ferritin Total Bilirubin 0.4 0.3 AST 24 20 ALT 21 17 Alkaline Phosphatase 165 H 143 H Total Creatine Kinase 74 C-Reactive Protein 22.1 H NT-Pro-B Natriuret Pep 3380 H Total Protein 8.0 6.0 L Albumin 3.5 2.9 L Lipase 43 Urine Color Yellow Urine Appearance Turbid H Urine pH 6.5 Ur Specific [place] 1.014 Urine Protein 3+ H Urine Glucose (UA) Negative Urine Ketones Negative Ur Blood (Man) 3+ H Urine Nitrate Negative Urine Bilirubin Negative Urine Urobilinogen 0.2 Add Ur Microanalysis Reviewed Leukocyte Esterase Rfl 2+ H Urine RBC 21-50 H Urine WBC >100 H Ur Squamous Epith Cells None seen Urine Bacteria 4+ H Urine Casts 0-2 Influenza A (RT-PCR) Negative Influenza B (RT-PCR) Negative RSV (RT-PCR) Negative SARS-CoV-2 RNA (RT-PCR) Negative 02/12/25 09:05 WBC RBC Hgb Hct MCV MCH MCHC RDW Plt Count MPV Immature Gran % (Auto) Neut % (Auto) Lymph % (Auto) [place] % (Auto) Eos % (Auto) Baso % (Auto) Lymph # (Auto) [place] # (Auto) Eos # (Auto) Baso # (Auto) Abs Immat Gran (auto) Absolute Neuts (auto) Absolute Nucleated RBC Total Counted Neutrophils % (Manual) Band Neutrophils % Lymphocytes % (Manual) Monocytes % (Manual) Nucleated RBC % Abs Neuts (Manual) Abs Lymphs (Manual) Abs Monocytes (Manual) Platelet Estimate Hypochromasia Poikilocytosis Ovalocytes [place] Cells Schistocytes PT INR APTT Sodium Potassium Chloride Carbon Dioxide Anion Gap BUN Creatinine Estim Creat Clear Calc Estimated GFR Glucose Lactic Acid Calcium Phosphorus Magnesium Iron 21 L TIBC 219 L % Saturation 10 L Ferritin 88.30 Total Bilirubin AST ALT Alkaline Phosphatase Total Creatine Kinase C-Reactive Protein NT-Pro-B Natriuret Pep Total Protein Albumin Lipase Urine Color Urine Appearance Urine pH Ur Specific [place] Urine Protein Urine Glucose (UA) Urine Ketones Ur Blood (Man) Urine Nitrate Urine Bilirubin Urine Urobilinogen Add Ur Microanalysis Leukocyte Esterase Rfl Urine RBC Urine WBC Ur Squamous Epith Cells Urine Bacteria Urine Casts Influenza A (RT-PCR) Influenza B (RT-PCR) RSV (RT-PCR) SARS-CoV-2 RNA (RT-PCR) Quality VTE Prophylaxis VTE prophylaxis: pharmacologic ordered (Continue home Eliquis)
[2025-02-12 15:30] LABS: Eosinophil Urine None Seen % (None Seen); Urine Eos QC 2nd Tech Confirmed
[2025-02-12 15:53] LABS: Urea Random Urine 342 MG/DL
[2025-02-12 15:54] LABS: Creatinine Urine 41.9 mg/dL
[2025-02-12 15:59] LABS: Sodium Urine Random 53 meq/L
[2025-02-12 16:25] LABS: Total Protein Urine Random 389 mg/dL; Ur Ttl Prot Creatinine Ratio 9.28 mg/mg (0-0.20)
[2025-02-12] MEDS: DOXYCYCLINE 100 MG/NS 100 ML 100 MG/100 ML BAG IVPB (16:56)
[2025-02-12] MEDS: IRON SUCROSE COMPLEX 200 MG in SODIUM CHLORIDE 0.9% IV 100 ML 220 MG IVPB (18:12)
[2025-02-13] VITALS (25 sets, daily range): BP systolic 103–130; BP diastolic 42–79; PULSE 75–86; RESP 12–24; TEMP 36.6–37.1; O2SAT 89–100
[2025-02-13] MEDS: HYDROcodone/acetaminophen (*CRX) 5-325 MG TABLET 1 TAB PO ×4 (00:02→20:11)
[2025-02-13] MEDS: metroNIDAZOLE 500 MG/ISO 100ML 500 MG/100 ML BAG 100 MG IVPB ×3 (00:02→11:36)
[2025-02-13] MEDS: IPRATROPIUM 0.5 MG/ALBUTEROL SULFATE 2.5 MG AMPUL.NEB 3 ML INHALATION ×4 (02:10→21:21)
[2025-02-13 04:23] LABS: Mean Corpuscular HGB Conc 33.2 g/dl (32-36); Mean Corpuscular Hemoglobin 30.9 pg (26-34); Mean Corpuscular Volume 93.2 fl (80-100); Mean Platelet Volume 9.9 fl (7.4-10.4); Platelet Count Result 354 k/mm3 (150-375); Red Blood Count 2.07 M/mm3 (4.2-5.4); Red Cell Distribution Width 16.8 % (11.5-14.5); White Blood Count 20.3 K/mm3 (4.5-10.0)
[2025-02-13 04:39] LABS: Alanine Aminotransferase 16 U/L (6-35); Albumin Level 2.5 g/dL (3.5-5.1); Alkaline Phosphatase 116 U/L (38-126); Anion Gap 10 mmol/L (4-12); Aspartate Amino Transferase 20 U/L (14-36); Bilirubin,Total 0.3 mg/dL (0.2-1.3); Blood Urea Nitrogen 60 mg/dL (7-17); Calcium 6.2 mg/dL (8.4-10.2); Carbon Dioxide 27 mmol/L (22-30); Chloride 93 mmol/L (98-107); Estimated CRCL calculation 13 ml/min; Estimated Glomerular Filt Rate 13; Glucose 109 mg/dL (65-110); Magnesium 1.8 mg/dL (1.6-2.3); Potassium 3.1 mmol/L (3.4-5.0); Sodium 130 mmol/L (137-145)
[2025-02-13 04:51] LABS: Hematocrit 19.3 % (37.0-47.0); Hemoglobin 6.4 g/dL (12.0-15.0)
[2025-02-13 04:53] LABS: Band Neutrophils Percent 3 % (0-6); Lymphocytes Absolute Manual 0.81 K/mm3 (1.1-4.5); Neutrophils Absolute Manual 19.48 K/mm3 (1.7-7.2); Neutrophils Percent Manual 93 % (46-73); Total Cells Counted 100
[2025-02-13 04:54] LABS: Anisocytosis 1+; Platelet Estimate Adequate (Adequate); Schistocytes Rare
[2025-02-13] MEDS: SODIUM BICARBONATE 8.4% 150 MEQ in DEXTROSE 5% 1,000 ML 950 ML 75 MEQ IV CONT (04:55)
[2025-02-13] MEDS: LEVOTHYROXINE SODIUM 88 MCG TABLET PO (04:56)
[2025-02-13] MEDS: ONDANSETRON INJ 4 MG/2 ML VIAL IV PUSH ×2 (08:23→20:12)
[2025-02-13] MEDS: DOXYCYCLINE 100 MG/NS 100 ML 100 MG/100 ML BAG IVPB ×2 (08:24)
[2025-02-13] MEDS: carvediloL 25 MG TABLET PO ×2 (08:24→20:12)
[2025-02-13] MEDS: PANTOPRAZOLE 40 MG TABLET PO (08:25)
[2025-02-13] MEDS: ROSUVASTATIN 20 MG TABLET 40 MG PO (08:25)
[2025-02-13] MEDS: FELODIPINE 5 MG TAB CR 10 MG PO (08:25)
[2025-02-13] MEDS: APIXABAN 5 MG TABLET PO (08:25)
[2025-02-13] MEDS: oxyBUTYnin CHLORIDE XL 5 MG TAB.ER.24 15 MG PO (08:25)
[2025-02-13] MEDS: ISOSORBIDE MONONITRATE 30 MG TAB.ER.24H PO (08:25)
[2025-02-13] MEDS: RANOLAZINE 500 MG TAB.ER.12H PO ×2 (08:25→20:12)
[2025-02-13] MEDS: CLOPIDOGREL BISULFATE 75 MG TABLET PO (08:25)
[2025-02-13] MEDS: TUBING, BLOOD PLUM PUMP TUBING 1 EACH XX (08:26)
[2025-02-13] MEDS: SODIUM CHLORIDE 0.9% IV 250 ML 30 ML IV CONT (08:26)
[2025-02-13] MEDS: UMECLIDINIUM/VILANTEROL 62.5-25 MCG ELLIPTA 1 PUFF INHALATION (09:38)
[2025-02-13] MEDS: IRON SUCROSE COMPLEX 400 MG, IRON SUCROSE COMPLEX 100 MG in SODIUM CHLORIDE 0.9% IV 250 ML 78.57 MG IVPB (11:28)
[2025-02-13] MEDS: PANTOPRAZOLE SODIUM IV 40 MG VIAL IV PUSH (11:35)
--- NOTE | 2025-02-13 12:48 | P.CONUR_ITS ---
Assessment and Plan Assessment and plan (1) Acute urinary retention: Code(s): R33.8 - Other retention of urine Status: Acute Assessment and Plan: - Likely 2/2 acute illness, immobility, weakness, bowel distention, UTI (2) Acute on chronic kidney failure: Qualifiers: Acute renal failure type: unspecified Chronic kidney disease stage: s tage 3 (moderate) Chronic kidney disease stage 3 subtype: stage 3a (GFR 45-59) Qualified Code(s): N17.9 - Acute kidney failure, unspecified; N18.31 - Chronic kidney disease, stage 3a Code(s): N17.9 - Acute kidney failure, unspecified; N18.9 - Chronic kidney disease, unspecified Status: Acute Assessment and Plan: - Likely prerenal etiology; nonobstructive by CT & RUEL - Nephrology following - Cr downtrending (3) UTI (urinary tract infection): Qualifiers: Hematuria presence: without hematuria Urinary tract infection type: a cute cystitis Qualified Code(s): N30.00 - Acute cystitis without hematuria Code(s): N39.0 - Urinary tract infection, site not specified Status: Acute Assessment and Plan: - Present on admission - 02/11/25 Urine culture: EColi / Enterococcus, susceptibilities pending - Likely 2/2 acute diarrheal illness Plan - Agree with culture-directed antibiotics for UTI - Maintain indwelling Rao catheter as she recovers from renal failure and acute illness - Void trial prior to discharge or when more ambulatory - No plan for inpatient urologic surgical intervention - Follow up in urology clinic for a check up after her acute issues have resolved Urology to follow peripherally. Please call with questions. Urology Consult Note HPI Date Seen: 02/13/25 Requesting Physician: Bev Guzman DO Primary Care Provider: Ricardo Freeman DO Consult Narrative Reason for consult: Urinary retention, UTI Narrative: Iza Gayle is a pleasant 69 year old female well known to our practice with a urological history significant for Hunner's ulcer, interstitial cystitis, solitary kidney, CKD3a, mixed urinary incontinence. She was admitted 02/11/25 with nausea, vomiting, diarrhea, abdominal pain related to sepsis, gastroenteritis/colitis, UTI, acute renal failure. Urology consulted today for evaluation of acute urinary retention. Indwelling Rao was placed 02/12/25 for PVR bladder scan 654mL. Urine culture is growing EColi/Enterococcus. Renal function improving, Cr 3.6 from 6.2 on admission (baseline 1-1.2). Leukocytosis downtrending, WBC 20 from [address] and RUEL negative for right hydronephrosis, stones, bladder abnormality. She was last evaluated by urology 12/20/[address] OR with Dr. Juarez for uncomplicated cystoscopy/steroid injection r/t Hunner's ulcer. Prolonged hospitalization 01/2025 for influenza, PNA, PE, COPD exac, respiratory failure. Patient comfortable on exam today. Indwelling Rao draining cloudy yellow urine. Denies abdominal pain, nausea, vomiting, fever. Review of Systems 2 Constitutional: Constitutional: Reports lethargy and Reports weakness Cardiovascular: Cardiovascular: Denies chest pain, Reports pedal edema and Reports leg edema Respiratory: Respiratory: Reports no additional respiratory complaints Gastrointestinal: Gastrointestinal: Denies abdominal pain, Denies constipation and Reports diarrhea Genitourinary: Genitourinary: Reports as per HPI Musculoskeletal: Musculoskeletal: Reports myalgias and Reports stiffness [facility] Past Medical History Medical History (Updated 02/13/25 @ 15:03 by Ashley Arango APRN) Hunner's ulcer Coronary artery disease Chronic obstructive pulmonary disease Chronic kidney disease, stage 3 Abdominal aortic aneurysm mild dilatation of the distal aorta measuring 3.[address] scan in November 2024 Hypercholesterolemia Deep venous thrombosis (2014) Chronic anticoagulation Paroxysmal atrial fibrillation Essential hypertension Gastro-esophageal reflux disease without esophagitis Pulmonary embolism (2014) 2014 and January 2025 History of tobacco abuse Anxiety Gout Osteoporosis Arthritis Cancer of left kidney status post left nephrectomy Ventral hernia Hemorrhoids Sleep apnea does not use CPAP Migraine Glaucoma Hypothyroidism Peripheral vascular disease, unspecified Surgical History Surgical History History of right breast biopsy History of open reduction and internal fixation (ORIF) procedure repair of bilateral wrist and left foot fractures History of cystoscopy History of hernia repair History of vascular surgery bifemoral bypass left femoral and popliteal stents History of ventral hernia repair History of right shoulder replacement History of cholecystectomy History of appendectomy History of left nephrectomy History of splenectomy retroperitoneal fibrosis History of tubal ligation History of cataract extraction History of coronary artery stent placement (2014) Hx of foot surgery History of hysterectomy Family History Family History Mother Family history of Alzheimer's disease, Onset Age: 82 Sibling Family history of diabetes mellitus in first degree relative Diabetes mellitus Family history of congenital heart disease Father Family history of emphysema Family history of congenital heart disease Other Hypertension Social History Social History (Updated 02/12/25 @ 07:26 by Bev Guzman DO) Social History: The patient reports he lives in her own home. One of her sons lives with her. Her granddaughter Cordelia helps her significantly. She is a former smoker she smoked 0.5 packs of cigarettes per day from the time she was a teenager until age 59. She denies any history of alcohol use or illicit substance use. She ambulates with a Rollator. Code status: Full code. Healthcare power of research attorney: Cordelia Christianson (granddaughter) Smoking packs per day: 0.5 Smoking cigarettes per day: 10.0 Years smoked: 40 Smoking pack-years: 20.00 Smoking status: Former smoker Tobacco type: cigarettes Second hand tobacco smoke exposure: No Smoking end date: 11/13/14 Additional smoking assessment comments: quit 2013 Alcohol intake: never Substance use: never Substance use type: does not use Do You Feel Safe in your Home?: Yes Lack of Transportation: No Lack of Food: Never True Current Housing: I Have Housing Concerned About Future Housing: No Difficulty Paying Gas/Electric Bills: No Difficulty Paying for Meds: No Currently Unemployed: No Education: High School Diploma/GED Difficulty w/ Childcare or Family Care: No Living arrangements: with family Additional living arrangements comments: Son Occupation/Education: retired Gender identity (if verbalized by the patient): Female Spiritual care concerns: No Meds Home Medications and Allergies Home Medications ?Medication ?Instructions ?Recorded ?Confirmed ?Type clopidogrel 75 mg tablet (Plavix) 75 mg PO QAM 12/02/19 02/11/25 History nitroglycerin 0.4 mg sublingual 0.4 mg sublingual Q5M PRN Chest 12/02/19 02/11/25 History tablet Pain oxybutynin chloride 15 mg 15 mg PO DAILY 12/02/19 02/11/25 History tablet,extended release 24 hr ranolazine 500 mg tablet,extended 500 mg PO BID 03/24/21 02/11/25 History release,12 hr rosuvastatin 40 mg tablet 40 mg PO DAILY 05/09/23 02/11/25 History zoledronic acid 5 mg/100 mL in 1 ea IV DIRECTED 12/11/23 02/11/25 History mannitol 5 %-water intravenous piggybck methenamine hippurate 1 gram tablet 1 g PO BID 02/06/24 02/11/25 History felodipine 10 mg tablet,extended 10 mg PO QAM #90 tabs 04/16/24 02/11/25 Rx release 24 hr Stiolto Respimat 2.5 mcg-2.5 See Rx Instructions .Route 05/01/24 02/11/25 Rx mcg/actuation solution for .COMPLEX #12 grams inhalation (tiotropium-olodaterol) folic acid 1 mg tablet 1 mg PO DAILY #90 tabs 05/22/24 02/11/25 Rx levothyroxine 88 mcg tablet 88 mcg PO QAM #90 tabs 05/22/24 02/11/25 Rx albuterol sulfate 90 mcg/actuation 1 - 2 inh inhalation Q4-6H PRN 06/07/24 02/11/25 Rx aerosol inhaler shortness of breath or wheezing #8.5 grams isosorbide mononitrate 30 mg 30 mg PO DAILY 11/25/24 02/11/25 History tablet,extended release 24 hr carvedilol 25 mg tablet 25 mg PO Q12H #180 tabs 12/19/24 02/11/25 Rx lansoprazole 15 mg capsule,delayed 15 mg PO DAILY PRN acid reflux 01/10/25 02/11/25 History release apixaban 5 mg tablet (Eliquis) 5 mg PO Q12HR #60 tabs 01/28/25 02/11/25 Rx ipratropium 0.5 mg-albuterol 3 mg 3 ml inhalation Q6HRT #90 vials 01/28/25 02/11/25 Rx (2.5 mg base)/3 mL nebulization soln pantoprazole 40 mg tablet,delayed 40 mg PO QAM #30 tabs 01/28/25 02/11/25 Rx release sennosides 8.6 mg tablet (Senokot) 8.6 mg PO DAILY PRN Constipation 01/28/25 02/12/25 Rx #30 tabs acetaminophen 500 mg tablet 500 mg PO Q6H PRN fever or pain 02/11/25 02/11/25 History calcium carbonate (Antacid 200 mg PO QID PRN dyspepsia 02/11/25 02/11/25 History (calcium carbonate)) guaifenesin 600 mg tablet, 1,200 mg PO Q12HR PRN congestion 02/11/25 02/11/25 History extended release 12 hr (Mucus Relief ER) ondansetron 4 mg disintegrating 4 mg translingual Q8H PRN nausea 02/11/25 02/11/25 History tablet and vomiting polyethylene glycol 3350 17 gram 17 g PO QAM PRN constipation 02/12/25 02/12/25 History oral powder packet (Miralax) Allergies Allergy/AdvReac Type Severity Reaction Status Date / Time No Known Allergies Allergy Verified 01/13/25 09:11 Vital Signs Vital Signs - 24 hr 02/12/25 14:00 02/12/25 14:27 02/12/25 14:38 Temperature Pulse Rate 81 84 83 Respiratory Rate 16 16 Blood Pressure Pulse Oximetry Oxygen Delivery Oxygen Flow Rate Fraction of Inspired Oxygen 02/12/25 16:00 02/12/25 16:00 02/12/25 16:00 Temperature 98 F Pulse Rate 82 85 Respiratory Rate 20 Blood Pressure 111/50 L Pulse Oximetry 94 Oxygen Delivery Room Air Oxygen Flow Rate Fraction of Inspired Oxygen 02/12/25 19:36 02/12/25 19:59 02/12/25 19:59 Temperature 97.9 F Pulse Rate 79 80 Respiratory Rate 18 16 Blood Pressure 112/50 L Pulse Oximetry 93 94 Oxygen Delivery Room Air Oxygen Flow Rate Fraction of Inspired Oxygen 21 02/12/25 20:00 02/12/25 20:00 02/12/25 20:08 Temperature Pulse Rate 80 82 Respiratory Rate 16 Blood Pressure Pulse Oximetry Oxygen Delivery Room Air Oxygen Flow Rate Fraction of Inspired Oxygen 02/12/25 20:29 02/12/25 22:00 02/12/25 23:47 Temperature 98.1 F Pulse Rate 85 78 84 Respiratory Rate 18 Blood Pressure 108/47 L Pulse Oximetry 97 Oxygen Delivery Oxygen Flow Rate Fraction of Inspired Oxygen 02/13/25 00:00 02/13/25 00:00 02/13/25 02:12 Temperature Pulse Rate 77 Respiratory Rate Blood Pressure Pulse Oximetry 95 96 Oxygen Delivery Nasal Cannula Nasal Cannula Oxygen Flow Rate 4 3.5 Fraction of Inspired Oxygen 34 02/13/25 02:12 02/13/25 02:20 02/13/25 04:00 Temperature 98.0 F Pulse Rate 80 75 80 Respiratory Rate 16 16 18 Blood Pressure 103/42 L Pulse Oximetry 95 Oxygen Delivery Oxygen Flow Rate Fraction of Inspired Oxygen 02/13/25 04:00 02/13/25 04:00 02/13/25 08:00 Temperature 98.2 F Pulse Rate 80 80 Respiratory Rate 18 Blood Pressure 119/51 L Pulse Oximetry 95 90 Oxygen Delivery Nasal Cannula Oxygen Flow Rate 4 Fraction of Inspired Oxygen 02/13/25 08:00 02/13/25 08:24 02/13/25 08:30 Temperature Pulse Rate 80 79 Respiratory Rate Blood Pressure Pulse Oximetry Oxygen Delivery Room Air Oxygen Flow Rate Fraction of Inspired Oxygen 02/13/25 08:35 02/13/25 08:40 02/13/25 08:55 Temperature 98.3 F 98.3 F 97.8 F Pulse Rate 79 80 75 Respiratory Rate 20 18 12 Blood Pressure 127/54 L 127/54 L 120/54 L Pulse Oximetry 94 94 94 Oxygen Delivery Oxygen Flow Rate Fraction of Inspired Oxygen 02/13/25 09:39 02/13/25 09:39 02/13/25 09:55 Temperature Pulse Rate 75 78 Respiratory Rate 16 16 Blood Pressure Pulse Oximetry 94 Oxygen Delivery Room Air Oxygen Flow Rate Fraction of Inspired Oxygen 02/13/25 09:55 02/13/25 10:00 02/13/25 10:55 Temperature 97.8 F 98 F Pulse Rate 76 80 79 Respiratory Rate 20 20 Blood Pressure 123/52 L 114/49 L Pulse Oximetry 100 94 Oxygen Delivery Oxygen Flow Rate Fraction of Inspired Oxygen 02/13/25 11:41 Temperature 98.2 F Pulse Rate 85 Respiratory Rate 20 Blood Pressure 128/56 L Pulse Oximetry 94 Oxygen Delivery Oxygen Flow Rate Fraction of Inspired Oxygen Exam 2 Const: General: comfortable and no acute distress Resp: Effort & Inspection: normal respiratory effort Urinary Catheter: Urinary Catheter: patent and draining and urine cloudy Extrem: General: edema bilateral (lower extremities) Psych: Speech and movement: Normal speech and movement present Affect: n ormal affect Results Labs 02/13/25 03:59 02/13/25 03:59 Labs: Short CBC 02/13/25 Range/Units 03:59 WBC 20.3 H (4.5-10.0) K/mm3 Hgb 6.4 L* (12.0-15.0) g/dL Hct 19.3 L* (37.0-47.0) % Plt Count 354 (150-375) k/mm3 BMP 02/13/25 03:59 Sodium 130 L Potassium 3.1 L Chloride 93 L Carbon Dioxide 27 BUN 60 H D Creatinine 3.55 H Glucose 109 Calcium 6.2 L Liver Function 02/13/25 Range/Units 03:59 Total Bilirubin 0.3 (0.2-1.3) mg/dL AST 20 (14-36) U/L ALT 16 (6-35) U/L Alkaline Phosphatase 116 (38-126) U/L Albumin 2.5 L (3.5-5.1) g/dL
--- NOTE | 2025-02-13 13:04 | P.PNNP_ITS ---
Progress Note: A&P Assessment and Plan (1) Acute kidney injury: Code(s): N17.9 - Acute kidney failure, unspecified Status: Acute Assessment and Plan: * improving * as evidenced by admission labs * multifactorial etiology: * prerenal factors (diarrhea) * urinary retention * early sepsis/infection (UTI + pneumonia) * evaluation to date noted: * renal u/s with mild right hydronephrosis * bladder scan with evidence of urinary retention * urine electrolytes non prerenal * urine eosinophils negative * CPK normal * UA suggestive of infection * proteinuria noted * calles in place now * continue IVFs - probably okay to switch to normal saline * follow trend of repeat labs and UOP (2) Chronic kidney disease, stage 3: Qualifiers: Chronic kidney disease stage 3 subtype: stage 3a (GFR 45-59) Qualified Code(s): N18.31 - Chronic kidney disease, stage 3a Code(s): N18.30 - Chronic kidney disease, stage 3 unspecified Status: Chronic Assessment and Plan: * baseline creatinine runs around 1.4 - 1.9mg/dl in the last few years * however, has been as low as 0.9 - 1.1mg/dl * secondary to 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 (3) Anemia: Code(s): D64.9 - Anemia, unspecified Status: Acute Assessment and Plan: * noted drop in H/H by AM labs (02/13) * PRBC transfusion per protocol * anemia studies with iron deficiency * complicated by recent start of Eliquis for PE * check guaiac stool - GI consulted as well * follow trend of H/H (4) Urinary tract infection: Code(s): N39.0 - Urinary tract infection, site not specified Status: Acute Assessment and Plan: * admission UA highly suggestive * on antibiotics * urine culture with E.coli and Enterococcus (5) Pneumonia: Code(s): J18.9 - Pneumonia, unspecified organism Status: Acute Assessment and Plan: * as suggested by admission imaging * follow culture data - blood culture negative to date * on antibiotics (6) Metabolic acidosis: Code(s): E87.20 - Acidosis, unspecified Status: Acute Assessment and Plan: * resolving/resolved * due to JOSR/ARF coupled from diarrhea * compensated with bicarb IVFs - ok to switch to normal saline * follow trend of CO2 (7) Bilateral lower extremity edema: Code(s): R60.0 - Localized edema Status: Acute Assessment and Plan: * noted on admission * related to JOSR/ARF(?) * venous dopplers negative for DVT * related to proteinuria(?) * follow clinical exam (8) Acute urinary retention: Code(s): R33.8 - Other retention of urine Status: Acute Assessment and Plan: * as noted by renal ultrasound and bladders scans * calles catheter in place * Urology recommendations noted (9) Acute diarrhea: Code(s): R19.7 - Diarrhea, unspecified Status: Acute Assessment and Plan: * as noted by admission history * however, no episodes while hospitalized * CT A/P results noted * on immodium (10) Essential hypertension: Code(s): I10 - Essential (primary) hypertension Status: Chronic Assessment and Plan: * reasonable control * follow trend of hemodynamics Will continue to follow. L Subjective Date/time seen: 02/13/25 13:04 Interval history: Follow-up for acute kidney injury/acute renal failure on chronic kidney disease. Renal function/creatinine has improved with current interventions/therapy to date; however, significant drop in H/H noted by AM labs and getting PRBC transfusion; no further diarrhea but has been on imodium since admission. Exam 2 Narrative: General: elderly (appears older than stated age) WD/WN female in NAD Heart: normal S1 and S2; no rub Lungs: clear to auscultation Abdomen: soft, nontender, nondistended, positive bowel sounds Extremities: no cyanosis or clubbing; 1+ edema Skin: warm and dry Objective Data Vital Signs Vital Signs: Vital Signs Temp Pulse Resp BP Pulse Ox O2 Del Method O2 Flow Rate 02/13/25 13:03 82 16 02/13/25 12:00 85 20 94 Room Air 02/13/25 11:41 98.2 F 85 20 128/56 L 94 02/13/25 10:55 98 F 79 20 114/49 L 94 02/13/25 10:00 80 02/13/25 09:55 97.8 F 76 20 123/52 L 100 02/13/25 09:55 78 16 02/13/25 09:39 75 16 02/13/25 09:39 94 Room Air 02/13/25 08:55 97.8 F 75 12 120/54 L 94 02/13/25 08:40 98.3 F 80 18 127/54 L 94 02/13/25 08:35 98.3 F 79 20 127/54 L 94 02/13/25 08:30 Room Air 02/13/25 08:24 79 02/13/25 08:00 80 02/13/25 08:00 98.2 F 80 18 119/51 L 90 02/13/25 04:00 80 02/13/25 04:00 95 Nasal Cannula 4 02/13/25 04:00 98.0 F 80 18 103/42 L 95 02/13/25 02:20 75 16 02/13/25 02:12 80 16 02/13/25 02:12 96 Nasal Cannula 3.5 02/13/25 00:00 95 Nasal Cannula 4 02/13/25 00:00 77 02/12/25 23:47 98.1 F 84 18 108/47 L 97 02/12/25 22:00 78 02/12/25 20:29 85 02/12/25 20:08 82 16 02/12/25 20:00 Room Air 02/12/25 20:00 80 02/12/25 19:59 80 16 02/12/25 19:59 94 Room Air 02/12/25 19:36 97.9 F 79 18 112/50 L 93 Intake/Output Intake/Output: Intake & Output 02/10/25 02/11/25 02/12/25 02/13/25 23:59 23:59 23:59 23:59 Intake Total 1050 4410 1944.0 Output Total 200 1150 1625 Balance 850 3260 319.0 Meds/Results Medications: Active Medications Generic Name Dose Route Start Last Admin Trade Name Freq PRN Reason Stop Dose Admin Acetaminophen 650 mg 02/11/25 20:54 Acetaminophen 325 Mg Tablet PO Q4H PRN Mild Pain (1-3) or Fever Hydrocodone Bitart/Acetaminophen 1 tab 02/11/25 20:54 02/13/25 15:29 Hydrocodone/Acetaminophen (*Crx) 5-325 Mg Tablet PO 1 tab Q4H PRN Administration Pain Rated 4-6 Albuterol/Ipratropium 3 ml 02/12/25 08:00 02/13/25 14:22 Ipratropium 0.5 Mg/Albuterol Sulfate 2.5 Mg Ampul.Neb 3 Ml INHALATION 3 ml Q6HRT ENEDELIA Administration Apixaban 5 mg 02/12/25 09:00 02/13/25 08:25 Apixaban 5 Mg Tablet PO 5 mg Q12HR ENEDELIA Administration Calcium Carbonate 200 mg 02/12/25 02:37 Calcium Carbonate (Tums) 500 Mg (200 Mg Elemental) PO QID PRN dyspepsia Carvedilol 25 mg 02/12/25 09:00 02/13/25 08:24 Carvedilol 25 Mg Tablet PO 25 mg Q12HR ENEDELIA Administration Clopidogrel Bisulfate 75 mg 02/12/25 09:00 02/13/25 08:25 Clopidogrel Bisulfate 75 Mg Tablet PO 75 mg QAM ENEDELIA Administration Doxycycline Hyclate 100 mg 02/13/25 21:00 Doxycycline Hyclate 100 Mg Tablet PO 02/16/25 21:01 Q12HR ENEDELIA Felodipine 10 mg 02/12/25 09:00 02/13/25 08:25 Felodipine 5 Mg Tab Cr PO 10 mg QAM ENEDELIA Administration Sodium Bicarbonate 150 meq/ 1,100 mls @ 75 mls/hr 02/11/25 21:40 02/13/25 04:55 Dextrose IV CONT 75 mls/hr .[id number] ENEDELIA Administration Meropenem 500 mg in 100 mls @ 200 mls/hr 02/13/25 12:30 02/13/25 13:34 IVPB 200 mls/hr Q12HR ENEDELIA Administration Isosorbide Mononitrate 30 mg 02/12/25 09:00 02/13/25 08:25 Isosorbide Mononitrate 30 Mg Tab.Er.24h PO 30 mg DAILY ENEDELIA Administration Levothyroxine Sodium 88 mcg 02/12/25 06:30 02/13/25 04:56 Levothyroxine Sodium 88 Mcg Tablet PO 88 mcg DAILY@0630 ENEDELIA Administration Nitroglycerin 0.4 mg 02/12/25 02:37 Nitroglycerin Sl 0.4 Mg Tablet SUBLINGUAL Q5M PRN Chest Pain Ondansetron HCl 4 mg 02/11/25 20:54 02/13/25 08:23 Ondansetron Inj 4 Mg/2 Ml Vial IV PUSH 4 mg Q4H PRN Administration Nausea Oxybutynin Chloride 15 mg 02/12/25 09:00 02/13/25 08:25 Oxybutynin Chloride Xl 5 Mg Tab.Er.24 PO 15 mg DAILY ENEDELIA Administration Pantoprazole Sodium 40 mg 02/12/25 02:55 Pantoprazole 40 Mg Tablet PO DAILY PRN acid reflux Pantoprazole Sodium 40 mg 02/13/25 09:50 02/13/25 11:35 Pantoprazole Sodium Iv 40 Mg Vial IV PUSH 40 mg Q12HR ENEDELIA Administration Ranolazine 500 mg 02/12/25 09:00 02/13/25 08:25 Ranolazine 500 Mg Tab.Er.12h PO 500 mg Q12HR ENEDELIA Administration Rosuvastatin Calcium 40 mg 02/12/25 09:00 02/13/25 08:25 Rosuvastatin 20 Mg Tablet PO 40 mg DAILY ENEDELIA Administration Umeclidinium/Vilanterol 1 puff 02/12/25 08:00 02/13/25 09:38 Umeclidinium/Vilanterol 62.5-25 Mcg Ellipta INHALATION 1 puff DAILYRT ENEDELIA Administration Radiology Results: ITS Impressions Abdomen/Pelvis CT 02/11/25 19:34 IMPRESSION: Left basilar consolidation, an interval change from prior. Findings within the colon suggesting a diarrheal illness, for which clinical correlation is needed. Chest X-Ray 02/11/25 19:58 IMPRESSION: No focal infiltrate or effusion. Venous Doppler Study 02/12/25 11:17 IMPRESSION: 1: No lower extremity deep venous thrombosis. Renal Ultrasound 02/12/25 11:18 Impression: 1: Mild right hydronephrosis. Labs Labs: Laboratory Tests 02/13/25 03:59 02/13/25 03:59 Calcium 6.2 L Magnesium 1.8 Total Bilirubin 0.3 AST 20 ALT 16 Alkaline Phosphatase 116 Total Protein 6.0 L Albumin 2.5 L Microbiology 02/11/25 18:54 Urine Catheterized Urine Culture - Preliminary Enterococcus species Escherichia Coli 02/11/25 20:06 Blood Blood Culture - Preliminary 02/11/25 20:54 Blood Blood Culture - Preliminary
--- NOTE | 2025-02-13 13:25 | PC.NURSE ---
On 02/13/25, the student, [Arianna Medley], provided care and completed [facility] documentation on this patient. I have reviewed the student's documentation and agree with the findings.
[2025-02-13] MEDS: MEROPENEM 500 MG/NS 100 ML 500 MG/100 ML BAG 200 MG IVPB ×2 (13:34→20:13)
--- NOTE | 2025-02-13 13:56 | PM.IMPN ---
Progress Note: A&P Assessment and Plan (1) Sepsis: Qualifiers: Acute renal failure type: unspecified Sepsis acute organ dysfunction status: with acute organ dysfunction Sepsis type: sepsis due to unspecified organism Severe sepsis acute organ dysfunction type: acute renal failure Severe sepsis shock status: without septic shock Qualified Code(s): A41.9 - Sepsis, unspecified organism; R65.20 - Severe sepsis without septic shock; N17.9 - Acute kidney failure, unspecified Code(s): A41.9 - Sepsis, unspecified organism Status: Acute (2) Diarrhea: Qualifiers: Diarrhea type: infectious Qualified Code(s): A09 - Infectious gastroenteritis and colitis, unspecified Code(s): R19.7 - Diarrhea, unspecified Status: Acute (3) Acute respiratory failure with hypoxia: Code(s): J96.01 - Acute respiratory failure with hypoxia Status: Acute (4) Acute UTI: Code(s): N39.0 - Urinary tract infection, site not specified Status: Acute (5) Acute kidney injury: Code(s): N17.9 - Acute kidney failure, unspecified Status: Acute (6) Chronic kidney disease, stage 3: Qualifiers: Chronic kidney disease stage 3 subtype: stage 3a (GFR 45-59) Qualified Code(s): N18.31 - Chronic kidney disease, stage 3a Code(s): N18.30 - Chronic kidney disease, stage 3 unspecified Status: Acute (7) Chronic anticoagulation: Code(s): Z79.01 - MCC (current) use of anticoagulants Status: Acute Plan Sepsis From pneumonia and diarrhea CT AP showed diarrhea disease and LLL Pneumonia Blood cultures Continue Rocephin, Doxy and Flagyl, IVF monitor Pneumonia LLL pneumonia per CT AP WBC 20.3 from 29.4 Continue above care Diarrhea No inflammation per CT Patient noted much improvement, however, of noted she has been on imodium since onset and thus has likely arrested the diarrhea continue above care and IVF JOSR Cr 3.55 from 6.19 From dehydration Continue IVF Iron deficiency anemia hb 6.4 down from 9, transfuse 1 unit Isat 10, Venofer 700/1000 FOBT ordered Patient had a recent PE last month and was started on Eliquis GI consulted to rule out GI bleed PE Eliquis on hold due to GI bleed Venous doppler negative for DVT HTN titrate home meds with clinical course PAD s/p stent continue Home meds JANNY on CPAP DVT prophylaxis Eliquis on hold due to GI bleed Subjective Date/time seen: 02/13/25 13:56 Interval history: Comfortable at bedside Noted mild soft stools, however patient noted she took imodium since the start of the diarrhea Review of Systems Review of Systems: 12 systems were reviewed with pertinent positives and negatives per HPI. Except as documented in the HPI, all other systems were reviewed and are negative. Exam Narrative: Weight 71.4 kg BMI 27.9 Const: Other: Acutely ill-appearing, appears older than stated age, height weight proportionate HENMT: Other: Mucous membranes are dry, edentulous in upper and lower jaw, head is normocephalic atraumatic Eyes: Other: Positive conjunctival pallor, no scleral icterus, pupils are equal and reactive with evidence of bilateral lens replacements Neck: Other: No JVD, no lymphadenopathy Resp: Other: Clear to auscultation bilaterally, no increased work of breathing Cardio: Other: Regular rate, regular rhythm, 2+ bilateral radial and pedal pulses, no murmur GI: Other: Soft, nontender, nondistended, positive bowel sounds, no organomegaly : Other: Depends in place Skin: Other: Jaundice, underlying pallor, bruising to the tops of the feet bilaterally, skin of the lower extremities is tight and shiny Neuro: Other: Alert orient x4, speech is clear, no facial asymmetry Extrem: Other: Marked edema bilateral lower extremities which is symmetrical, bruising to the dorsum of the feet bilaterally on the right side more to the toes on the left 8 just proximal to the toes, patient moves all extremities equally, 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 bilateral Objective Data Vital Signs Vital Signs: Vital Signs - 24 hr 02/12/25 14:00 02/12/25 14:27 02/12/25 14:38 Temperature Pulse Rate 81 84 83 Respiratory Rate 16 16 Blood Pressure Pulse Oximetry Oxygen Delivery Oxygen Flow Rate Fraction of Inspired Oxygen 02/12/25 16:00 02/12/25 16:00 02/12/25 16:00 Temperature 98 F Pulse Rate 82 85 Respiratory Rate 20 Blood Pressure 111/50 L Pulse Oximetry 94 Oxygen Delivery Room Air Oxygen Flow Rate Fraction of Inspired Oxygen 02/12/25 19:36 02/12/25 19:59 02/12/25 19:59 Temperature 97.9 F Pulse Rate 79 80 Respiratory Rate 18 16 Blood Pressure 112/50 L Pulse Oximetry 93 94 Oxygen Delivery Room Air Oxygen Flow Rate Fraction of Inspired Oxygen 21 02/12/25 20:00 02/12/25 20:00 02/12/25 20:08 Temperature Pulse Rate 80 82 Respiratory Rate 16 Blood Pressure Pulse Oximetry Oxygen Delivery Room Air Oxygen Flow Rate Fraction of Inspired Oxygen 02/12/25 20:29 02/12/25 22:00 02/12/25 23:47 Temperature 98.1 F Pulse Rate 85 78 84 Respiratory Rate 18 Blood Pressure 108/47 L Pulse Oximetry 97 Oxygen Delivery Oxygen Flow Rate Fraction of Inspired Oxygen 02/13/25 00:00 02/13/25 00:00 02/13/25 02:12 Temperature Pulse Rate 77 Respiratory Rate Blood Pressure Pulse Oximetry 95 96 Oxygen Delivery Nasal Cannula Nasal Cannula Oxygen Flow Rate 4 3.5 Fraction of Inspired Oxygen 34 02/13/25 02:12 02/13/25 02:20 02/13/25 04:00 Temperature 98.0 F Pulse Rate 80 75 80 Respiratory Rate 16 16 18 Blood Pressure 103/42 L Pulse Oximetry 95 Oxygen Delivery Oxygen Flow Rate Fraction of Inspired Oxygen 02/13/25 04:00 02/13/25 04:00 02/13/25 08:00 Temperature 98.2 F Pulse Rate 80 80 Respiratory Rate 18 Blood Pressure 119/51 L Pulse Oximetry 95 90 Oxygen Delivery Nasal Cannula Oxygen Flow Rate 4 Fraction of Inspired Oxygen 02/13/25 08:00 02/13/25 08:24 02/13/25 08:30 Temperature Pulse Rate 80 79 Respiratory Rate Blood Pressure Pulse Oximetry Oxygen Delivery Room Air Oxygen Flow Rate Fraction of Inspired Oxygen 02/13/25 08:35 02/13/25 08:40 02/13/25 08:55 Temperature 98.3 F 98.3 F 97.8 F Pulse Rate 79 80 75 Respiratory Rate 20 18 12 Blood Pressure 127/54 L 127/54 L 120/54 L Pulse Oximetry 94 94 94 Oxygen Delivery Oxygen Flow Rate Fraction of Inspired Oxygen 02/13/25 09:39 02/13/25 09:39 02/13/25 09:55 Temperature Pulse Rate 75 78 Respiratory Rate 16 16 Blood Pressure Pulse Oximetry 94 Oxygen Delivery Room Air Oxygen Flow Rate Fraction of Inspired Oxygen 02/13/25 09:55 02/13/25 10:00 02/13/25 10:55 Temperature 97.8 F 98 F Pulse Rate 76 80 79 Respiratory Rate 20 20 Blood Pressure 123/52 L 114/49 L Pulse Oximetry 100 94 Oxygen Delivery Oxygen Flow Rate Fraction of Inspired Oxygen 02/13/25 11:41 02/13/25 12:00 02/13/25 12:00 Temperature 98.2 F Pulse Rate 85 85 79 Respiratory Rate 20 20 Blood Pressure 128/56 L Pulse Oximetry 94 94 Oxygen Delivery Room Air Oxygen Flow Rate Fraction of Inspired Oxygen 34 Intake/Output Intake/Output: Intake & Output 02/10/25 02/11/25 02/12/25 02/13/25 23:59 23:59 23:59 23:59 Intake Total 1050 4410 1944.0 Output Total 200 1150 900 Balance 850 3260 1044.0 Meds/Results Medications: Active Medications Generic Name Dose Route Start Last Admin Trade Name Freq PRN Reason Stop Dose Admin Acetaminophen 650 mg 02/11/25 20:54 Acetaminophen 325 Mg Tablet PO Q4H PRN Mild Pain (1-3) or Fever Hydrocodone Bitart/Acetaminophen 1 tab 02/11/25 20:54 02/13/25 06:10 Hydrocodone/Acetaminophen (*Crx) 5-325 Mg Tablet PO 1 tab Q4H PRN Administration Pain Rated 4-6 Albuterol/Ipratropium 3 ml 02/12/25 08:00 02/13/25 09:38 Ipratropium 0.5 Mg/Albuterol Sulfate 2.5 Mg Ampul.Neb 3 Ml INHALATION 3 ml Q6HRT ENEDELIA Administration Apixaban 5 mg 02/12/25 09:00 02/13/25 08:25 Apixaban 5 Mg Tablet PO 5 mg Q12HR ENEDELIA Administration Calcium Carbonate 200 mg 02/12/25 02:37 Calcium Carbonate (Tums) 500 Mg (200 Mg Elemental) PO QID PRN dyspepsia Carvedilol 25 mg 02/12/25 09:00 02/13/25 08:24 Carvedilol 25 Mg Tablet PO 25 mg Q12HR ENEDELIA Administration Clopidogrel Bisulfate 75 mg 02/12/25 09:00 02/13/25 08:25 Clopidogrel Bisulfate 75 Mg Tablet PO 75 mg QAM ENEDELIA Administration Doxycycline Hyclate 100 mg 02/13/25 21:00 Doxycycline Hyclate 100 Mg Tablet PO 02/16/25 21:01 Q12HR ENEDELIA Felodipine 10 mg 02/12/25 09:00 02/13/25 08:25 Felodipine 5 Mg Tab Cr PO 10 mg QAM ENEDELIA Administration Sodium Bicarbonate 150 meq/ 1,100 mls @ 75 mls/hr 02/11/25 21:40 02/13/25 04:55 Dextrose IV CONT 75 mls/hr .[id number] ENEDELIA Administration Sodium Chloride 250 mls @ 30 mls/hr 02/13/25 05:49 02/13/25 08:26 Normal Saline Iv IV CONT 02/13/25 14:08 30 mls/hr .Q8H20M STA Administration Iron Sucrose 400 mg/ Iron 275 mls @ 78.571 mls/hr 02/13/25 10:30 02/13/25 11:28 Sucrose 100 mg/ Sodium IVPB 02/13/25 13:59 78.57 mls/hr Chloride ONCE ONE Administration Meropenem 500 mg in 100 mls @ 200 mls/hr 02/13/25 12:30 02/13/25 13:34 IVPB 200 mls/hr Q12HR ENEDELIA Administration Isosorbide Mononitrate 30 mg 02/12/25 09:00 02/13/25 08:25 Isosorbide Mononitrate 30 Mg Tab.Er.24h PO 30 mg DAILY ENEDELIA Administration Levothyroxine Sodium 88 mcg 02/12/25 06:30 02/13/25 04:56 Levothyroxine Sodium 88 Mcg Tablet PO 88 mcg DAILY@0630 ENEDELIA Administration Nitroglycerin 0.4 mg 02/12/25 02:37 Nitroglycerin Sl 0.4 Mg Tablet SUBLINGUAL Q5M PRN Chest Pain Ondansetron HCl 4 mg 02/11/25 20:54 02/13/25 08:23 Ondansetron Inj 4 Mg/2 Ml Vial IV PUSH 4 mg Q4H PRN Administration Nausea Oxybutynin Chloride 15 mg 02/12/25 09:00 02/13/25 08:25 Oxybutynin Chloride Xl 5 Mg Tab.Er.24 PO 15 mg DAILY ENEDELIA Administration Pantoprazole Sodium 40 mg 02/12/25 02:55 Pantoprazole 40 Mg Tablet PO DAILY PRN acid reflux Pantoprazole Sodium 40 mg 02/13/25 09:50 02/13/25 11:35 Pantoprazole Sodium Iv 40 Mg Vial IV PUSH 40 mg Q12HR ENEDELIA Administration Ranolazine 500 mg 02/12/25 09:00 02/13/25 08:25 Ranolazine 500 Mg Tab.Er.12h PO 500 mg Q12HR ENEDELIA Administration Rosuvastatin Calcium 40 mg 02/12/25 09:00 02/13/25 08:25 Rosuvastatin 20 Mg Tablet PO 40 mg DAILY ENEDELIA Administration Umeclidinium/Vilanterol 1 puff 02/12/25 08:00 02/13/25 09:38 Umeclidinium/Vilanterol 62.5-25 Mcg Ellipta INHALATION 1 puff DAILYRT ENEDELIA Administration Radiology Results: ITS Impressions Abdomen/Pelvis CT 02/11/25 19:34 IMPRESSION: Left basilar consolidation, an interval change from prior. Findings within the colon suggesting a diarrheal illness, for which clinical correlation is needed. Chest X-Ray 02/11/25 19:58 IMPRESSION: No focal infiltrate or effusion. Venous Doppler Study 02/12/25 11:17 IMPRESSION: 1: No lower extremity deep venous thrombosis. Renal Ultrasound 02/12/25 11:18 Impression: 1: Mild right hydronephrosis. Labs Labs: Laboratory Results - last 24 hr 02/12/25 02/12/25 02/12/25 14:17 14:17 14:17 WBC RBC Hgb Hct MCV MCH MCHC RDW Plt Count MPV Immature Gran % (Auto) Neut % (Auto) Lymph % (Auto) [place] % (Auto) Eos % (Auto) Baso % (Auto) Lymph # (Auto) [place] # (Auto) Eos # (Auto) Baso # (Auto) Abs Immat Gran (auto) Absolute Neuts (auto) Absolute Nucleated RBC Total Counted Neutrophils % (Manual) Band Neutrophils % Lymphocytes % (Manual) Nucleated RBC % Abs Neuts (Manual) Abs Lymphs (Manual) Platelet Estimate Anisocytosis Schistocytes Sodium Potassium Chloride Carbon Dioxide Anion Gap BUN Creatinine Estim Creat Clear Calc Estimated GFR Glucose Calcium Magnesium Total Bilirubin AST ALT Alkaline Phosphatase Total Protein Albumin Urine Eosinophils None seen U Random Total Protein 389 Cancelled Ur Random Sodium 53 Ur Random Urea 342 Urine Total Volume Cancelled Urine Creatinine 41.9 Cancelled Protein/Creat Ratio 2 9.28 H Blood Type Antibody Screen Crossmatch 02/13/25 02/13/25 03:59 06:11 WBC 20.3 H RBC 2.07 L Hgb 6.4 L* Hct 19.3 L* MCV 93.2 MCH 30.9 MCHC 33.2 RDW 16.8 H Plt Count 354 MPV 9.9 Immature Gran % (Auto) Not Reportable Neut % (Auto) Not Reportable Lymph % (Auto) Not Reportable [place] % (Auto) Not Reportable Eos % (Auto) Not Reportable Baso % (Auto) Not Reportable Lymph # (Auto) Not Reportable [place] # (Auto) Not Reportable Eos # (Auto) Not Reportable Baso # (Auto) Not Reportable Abs Immat Gran (auto) Not Reportable Absolute Neuts (auto) Not Reportable Absolute Nucleated RBC Not Reportable Total Counted 100 Neutrophils % (Manual) 93 H Band Neutrophils % 3 Lymphocytes % (Manual) 4.0 L Nucleated RBC % Not Reportable Abs Neuts (Manual) 19.48 H Abs Lymphs (Manual) 0.81 L Platelet Estimate Adequate Anisocytosis 1+ Schistocytes Rare Sodium 130 L Potassium 3.1 L Chloride 93 L Carbon Dioxide 27 Anion Gap 10 BUN 60 H D Creatinine 3.55 H Estim Creat Clear Calc 13 Estimated GFR 13 L Glucose 109 Calcium 6.2 L Magnesium 1.8 Total Bilirubin 0.3 AST 20 ALT 16 Alkaline Phosphatase 116 Total Protein 6.0 L Albumin 2.5 L Urine Eosinophils U Random Total Protein Ur Random Sodium Ur Random Urea Urine Total Volume Urine Creatinine Protein/Creat Ratio 2 Blood Type O Positive Antibody Screen Negative Crossmatch See Detail Quality VTE Prophylaxis VTE prophylaxis: pharmacologic ordered (Continue home Eliquis)
--- NOTE | 2025-02-13 14:19 | PC.NURSE ---
On 02/13/25, the student, [Courtney Arzola], provided care and completed [facility] documentation on this patient. I have reviewed the student's documentation and agree with the findings.
--- NOTE | 2025-02-13 19:54 | P.CONGI_ITS ---
Assessment and Plan Assessment and plan (1) Iron deficiency anemia: Code(s): D50.9 - Iron deficiency anemia, unspecified Status: Acute (2) Acute diarrhea: Code(s): R19.7 - Diarrhea, unspecified Status: Acute Assessment and Plan: The patient's new-onset diarrhea may be attributable to recent antibiotic use for pneumonia, raising suspicion for C diff infection. Stool analysis for C. difficile will be performed as soon as a sample is available. Regarding her iron deficiency anemia, the etiology is unclear, although a component is likely related to her critical illness and severe renal failure. To further investigate potential sources of anemia, including ischemic colitis, peptic ulcer disease associated with chronic renal failure, or erosive gastritis, an EGD and colonoscopy will be scheduled. Bowel preparation orders have been initiated. GI Consult Note Consult date/time: 02/13/25 19:54 Reason for consult: Iron deficiency anemia - Diarrhea HPI: Iza Gayle, a 69-year-old female with a complex medical history including: deep venous thrombosis and pulmonary embolism (2014), coronary artery disease with stent placement (2014), atrial fibrillation on Eliquis, chronic kidney disease, COPD, and retroperitoneal fibrosis. Her surgical history includes radical nephrectomy for left kidney cancer, splenectomy, and cholecystectomy. She was treated for a left lower lobe pneumonia in January of this year, with a recent chest X-ray showing no evidence of recurrence. She is currently hospitalized for a urinary tract infection, for which she is receiving meropenem. The reason for consultation is a 4-5 day history of watery diarrhea accompanied by bilateral leg edema. Notably, her hemoglobin has significantly decreased without overt hematemesis, hematochezia, or melena, dropping from 9 g/dL on February 11 to 7.5 g/dL on February 12, and further to 6.4 g/dL today. She has received one unit of packed red blood cells and one dose of iron infusion. Her INR is 1.7, BUN 60 mg/dL, and creatinine was 5.12 mg/dL yesterday. Her iron saturation was 20% in November of this year and 10% yesterday. A colonoscopy performed in July 2023 was normal. She is currently being evaluated by Nephrology.. A stool collection was not possible since admission, because she did not have any bowel movement For the last 48 hours Review of Systems 2 Review of Systems: All systems reviewed & are unremarkable except as noted in HPI and below [facility] Past Medical History Medical History (Updated 02/13/25 @ 20:02 by Christiano Carter MD) Hunner's ulcer Coronary artery disease Chronic obstructive pulmonary disease Chronic kidney disease, stage 3 Abdominal aortic aneurysm mild dilatation of the distal aorta measuring 3.[address] scan in November 2024 Hypercholesterolemia Deep venous thrombosis (2014) Chronic anticoagulation Paroxysmal atrial fibrillation Essential hypertension Gastro-esophageal reflux disease without esophagitis Pulmonary embolism (2014) 2014 and January 2025 History of tobacco abuse Anxiety Gout Osteoporosis Arthritis Cancer of left kidney status post left nephrectomy Ventral hernia Hemorrhoids Sleep apnea does not use CPAP Migraine Glaucoma Hypothyroidism Peripheral vascular disease, unspecified Surgical History Surgical History History of right breast biopsy History of open reduction and internal fixation (ORIF) procedure repair of bilateral wrist and left foot fractures History of cystoscopy History of hernia repair History of vascular surgery bifemoral bypass left femoral and popliteal stents History of ventral hernia repair History of right shoulder replacement History of cholecystectomy History of appendectomy History of left nephrectomy History of splenectomy retroperitoneal fibrosis History of tubal ligation History of cataract extraction History of coronary artery stent placement (2014) Hx of foot surgery History of hysterectomy Family History Family History Mother Family history of Alzheimer's disease, Onset Age: 82 Sibling Family history of diabetes mellitus in first degree relative Diabetes mellitus Family history of congenital heart disease Father Family history of emphysema Family history of congenital heart disease Other Hypertension Social History Social History (Updated 02/12/25 @ 07:26 by Bev Guzman DO) Social History: The patient reports he lives in her own home. One of her sons lives with her. Her granddaughter Cordelia helps her significantly. She is a former smoker she smoked 0.5 packs of cigarettes per day from the time she was a teenager until age 59. She denies any history of alcohol use or illicit substance use. She ambulates with a Rollator. Code status: Full code. Healthcare power of workers compensation defense attorney: Cordelia Christianson (granddaughter) Smoking packs per day: 0.5 Smoking cigarettes per day: 10.0 Years smoked: 40 Smoking pack-years: 20.00 Smoking status: Former smoker Tobacco type: cigarettes Second hand tobacco smoke exposure: No Smoking end date: 11/13/14 Additional smoking assessment comments: quit 2013 Alcohol intake: never Substance use: never Substance use type: does not use Do You Feel Safe in your Home?: Yes Lack of Transportation: No Lack of Food: Never True Current Housing: I Have Housing Concerned About Future Housing: No Difficulty Paying Gas/Electric Bills: No Difficulty Paying for Meds: No Currently Unemployed: No Education: High School Diploma/GED Difficulty w/ Childcare or Family Care: No Living arrangements: with family Additional living arrangements comments: Son Occupation/Education: retired Gender identity (if verbalized by the patient): Female Spiritual care concerns: No Meds Home Medications and Allergies Home Medications ?Medication ?Instructions ?Recorded ?Confirmed ?Type clopidogrel 75 mg tablet (Plavix) 75 mg PO QAM 12/02/19 02/11/25 History nitroglycerin 0.4 mg sublingual 0.4 mg sublingual Q5M PRN Chest 12/02/19 02/11/25 History tablet Pain oxybutynin chloride 15 mg 15 mg PO DAILY 12/02/19 02/11/25 History tablet,extended release 24 hr ranolazine 500 mg tablet,extended 500 mg PO BID 03/24/21 02/11/25 History release,12 hr rosuvastatin 40 mg tablet 40 mg PO DAILY 05/09/23 02/11/25 History zoledronic acid 5 mg/100 mL in 1 ea IV DIRECTED 12/11/23 02/11/25 History mannitol 5 %-water intravenous piggybck methenamine hippurate 1 gram tablet 1 g PO BID 02/06/24 02/11/25 History felodipine 10 mg tablet,extended 10 mg PO QAM #90 tabs 04/16/24 02/11/25 Rx release 24 hr Stiolto Respimat 2.5 mcg-2.5 See Rx Instructions .Route 05/01/24 02/11/25 Rx mcg/actuation solution for .COMPLEX #12 grams inhalation (tiotropium-olodaterol) folic acid 1 mg tablet 1 mg PO DAILY #90 tabs 05/22/24 02/11/25 Rx levothyroxine 88 mcg tablet 88 mcg PO QAM #90 tabs 05/22/24 02/11/25 Rx albuterol sulfate 90 mcg/actuation 1 - 2 inh inhalation Q4-6H PRN 06/07/24 02/11/25 Rx aerosol inhaler shortness of breath or wheezing #8.5 grams isosorbide mononitrate 30 mg 30 mg PO DAILY 11/25/24 02/11/25 History tablet,extended release 24 hr carvedilol 25 mg tablet 25 mg PO Q12H #180 tabs 12/19/24 02/11/25 Rx lansoprazole 15 mg capsule,delayed 15 mg PO DAILY PRN acid reflux 01/10/25 02/11/25 History release apixaban 5 mg tablet (Eliquis) 5 mg PO Q12HR #60 tabs 01/28/25 02/11/25 Rx ipratropium 0.5 mg-albuterol 3 mg 3 ml inhalation Q6HRT #90 vials 01/28/25 02/11/25 Rx (2.5 mg base)/3 mL nebulization soln pantoprazole 40 mg tablet,delayed 40 mg PO QAM #30 tabs 01/28/25 02/11/25 Rx release sennosides 8.6 mg tablet (Senokot) 8.6 mg PO DAILY PRN Constipation 01/28/25 02/12/25 Rx #30 tabs acetaminophen 500 mg tablet 500 mg PO Q6H PRN fever or pain 02/11/25 02/11/25 History calcium carbonate (Antacid 200 mg PO QID PRN dyspepsia 02/11/25 02/11/25 History (calcium carbonate)) guaifenesin 600 mg tablet, 1,200 mg PO Q12HR PRN congestion 02/11/25 02/11/25 History extended release 12 hr (Mucus Relief ER) ondansetron 4 mg disintegrating 4 mg translingual Q8H PRN nausea 02/11/25 02/11/25 History tablet and vomiting polyethylene glycol 3350 17 gram 17 g PO QAM PRN constipation 02/12/25 02/12/25 History oral powder packet (Miralax) Allergies Allergy/AdvReac Type Severity Reaction Status Date / Time No Known Allergies Allergy Verified 01/13/25 09:11 Vital Signs Vital Signs - 24 hr 02/12/25 19:59 02/12/25 19:59 02/12/25 20:00 Temperature Pulse Rate 80 80 Respiratory Rate 16 Blood Pressure Pulse Oximetry 94 Oxygen Delivery Room Air Oxygen Flow Rate Fraction of Inspired Oxygen 21 02/12/25 20:00 02/12/25 20:08 02/12/25 20:29 Temperature Pulse Rate 82 85 Respiratory Rate 16 Blood Pressure Pulse Oximetry Oxygen Delivery Room Air Oxygen Flow Rate Fraction of Inspired Oxygen 02/12/25 22:00 02/12/25 23:47 02/13/25 00:00 Temperature 98.1 F Pulse Rate 78 84 77 Respiratory Rate 18 Blood Pressure 108/47 L Pulse Oximetry 97 Oxygen Delivery Oxygen Flow Rate Fraction of Inspired Oxygen 02/13/25 00:00 02/13/25 02:12 02/13/25 02:12 Temperature Pulse Rate 80 Respiratory Rate 16 Blood Pressure Pulse Oximetry 95 96 Oxygen Delivery Nasal Cannula Nasal Cannula Oxygen Flow Rate 4 3.5 Fraction of Inspired Oxygen 34 02/13/25 02:20 02/13/25 04:00 02/13/25 04:00 Temperature 98.0 F Pulse Rate 75 80 Respiratory Rate 16 18 Blood Pressure 103/42 L Pulse Oximetry 95 95 Oxygen Delivery Nasal Cannula Oxygen Flow Rate 4 Fraction of Inspired Oxygen 02/13/25 04:00 02/13/25 08:00 02/13/25 08:00 Temperature 98.2 F Pulse Rate 80 80 80 Respiratory Rate 18 Blood Pressure 119/51 L Pulse Oximetry 90 Oxygen Delivery Oxygen Flow Rate Fraction of Inspired Oxygen 02/13/25 08:24 02/13/25 08:30 02/13/25 08:35 Temperature 98.3 F Pulse Rate 79 79 Respiratory Rate 20 Blood Pressure 127/54 L Pulse Oximetry 94 Oxygen Delivery Room Air Oxygen Flow Rate Fraction of Inspired Oxygen 02/13/25 08:40 02/13/25 08:55 02/13/25 09:39 Temperature 98.3 F 97.8 F Pulse Rate 80 75 Respiratory Rate 18 12 Blood Pressure 127/54 L 120/54 L Pulse Oximetry 94 94 94 Oxygen Delivery Room Air Oxygen Flow Rate Fraction of Inspired Oxygen 02/13/25 09:39 02/13/25 09:55 02/13/25 09:55 Temperature 97.8 F Pulse Rate 75 78 76 Respiratory Rate 16 16 20 Blood Pressure 123/52 L Pulse Oximetry 100 Oxygen Delivery Oxygen Flow Rate Fraction of Inspired Oxygen 02/13/25 10:00 02/13/25 10:55 02/13/25 11:41 Temperature 98 F 98.2 F Pulse Rate 80 79 85 Respiratory Rate 20 20 Blood Pressure 114/49 L 128/56 L Pulse Oximetry 94 94 Oxygen Delivery Oxygen Flow Rate Fraction of Inspired Oxygen 02/13/25 12:00 02/13/25 12:00 02/13/25 14:23 Temperature Pulse Rate 85 79 82 Respiratory Rate 20 16 Blood Pressure Pulse Oximetry 94 Oxygen Delivery Room Air Oxygen Flow Rate Fraction of Inspired Oxygen 34 02/13/25 14:36 02/13/25 15:51 02/13/25 16:00 Temperature 97.9 F Pulse Rate 80 83 86 Respiratory Rate 16 20 Blood Pressure 122/79 Pulse Oximetry 93 Oxygen Delivery Oxygen Flow Rate Fraction of Inspired Oxygen 02/13/25 16:00 02/13/25 17:51 Temperature Pulse Rate 83 85 Respiratory Rate 20 Blood Pressure Pulse Oximetry 93 Oxygen Delivery Room Air Oxygen Flow Rate Fraction of Inspired Oxygen 34 Exam 2 Narrative: Weight 71.4 kg BMI 27.9 Const: Other: Acutely ill-appearing, appears older than stated age, height weight proportionate HENMT: Other: Mucous membranes are dry, edentulous in upper and lower jaw, head is normocephalic atraumatic Eyes: Other: Positive conjunctival pallor, no scleral icterus, pupils are equal and reactive with evidence of bilateral lens replacements Neck: Other: No JVD, no lymphadenopathy Resp: Other: Clear to auscultation bilaterally, no increased work of breathing Cardio: Other: Regular rate, regular rhythm, 2+ bilateral radial and pedal pulses, no murmur GI: Other: Soft, nontender, nondistended, positive bowel sounds, no organomegaly : Other: Depends in place Skin: Other: Jaundice, underlying pallor, bruising to the tops of the feet bilaterally, skin of the lower extremities is tight and shiny Neuro: Other: Alert orient x4, speech is clear, no facial asymmetry Extrem: Other: Marked edema bilateral lower extremities which is symmetrical, bruising to the dorsum of the feet bilaterally on the right side more to the toes on the left 8 just proximal to the toes, patient moves all extremities equally, 5/5 manager safe strength bilateral Results Labs 02/13/25 03:59 02/13/25 03:59 Labs: Short CBC 02/13/25 Range/Units 03:59 WBC 20.3 H (4.5-10.0) K/mm3 Hgb 6.4 L* (12.0-15.0) g/dL Hct 19.3 L* (37.0-47.0) % Plt Count 354 (150-375) k/mm3 BMP 02/13/25 03:59 Sodium 130 L Potassium 3.1 L Chloride 93 L Carbon Dioxide 27 BUN 60 H D Creatinine 3.55 H Glucose 109 Calcium 6.2 L Liver Function 02/13/25 Range/Units 03:59 Total Bilirubin 0.3 (0.2-1.3) mg/dL AST 20 (14-36) U/L ALT 16 (6-35) U/L Alkaline Phosphatase 116 (38-126) U/L Albumin 2.5 L (3.5-5.1) g/dL
[2025-02-13] MEDS: SODIUM CHLORIDE 0.9% IV 1,000 ML 75 ML IV CONT (20:11)
[2025-02-13] MEDS: DOXYCYCLINE HYCLATE 100 MG TABLET PO (20:12)
[2025-02-14] VITALS (22 sets, daily range): BP systolic 109–126; BP diastolic 51–60; PULSE 76–88; RESP 18–22; TEMP 36.5–36.8; O2SAT 92–97
[2025-02-14] MEDS: IPRATROPIUM 0.5 MG/ALBUTEROL SULFATE 2.5 MG AMPUL.NEB 3 ML INHALATION ×4 (01:42→20:02)
[2025-02-14] MEDS: ONDANSETRON INJ 4 MG/2 ML VIAL IV PUSH ×3 (01:43→16:03)
[2025-02-14 04:46] LABS: Basophils Percent Auto 0.1 % (0.2-1.2); Hematocrit 23.7 % (37.0-47.0); Hemoglobin 7.9 g/dL (12.0-15.0); Immature Granulocyte Percent A 1.6 % (0-0.5); Lymphocytes Absolute Auto 2.25 K/mm3 (0.9-3.2); Lymphocytes Percent Auto 12.2 % (18.3-44.2); Mean Corpuscular HGB Conc 33.3 g/dl (32-36); Mean Corpuscular Hemoglobin 30.6 pg (26-34); Mean Corpuscular Volume 91.9 fl (80-100); Mean Platelet Volume 9.8 fl (7.4-10.4); Monocytes Absolute Auto 1.1 K/mm3 (0.1-0.6); Neutrophils Absolute Auto 14.7 K/mm3 (1.3-6.7); Neutrophils Percent Auto 80.1 % (45.5-73.1); Nucleated Red Blood Cells Perc 0.3 % (0.0-0.2); Platelet Count Result 345 k/mm3 (150-375); Red Blood Count 2.58 M/mm3 (4.2-5.4); Red Cell Distribution Width 19.3 % (11.5-14.5); White Blood Count 18.4 K/mm3 (4.5-10.0)
[2025-02-14 05:01] LABS: Lactic Acid Reflex 1.2 mmol/L (0.7-2.0)
[2025-02-14 05:07] LABS: Alanine Aminotransferase 18 U/L (6-35); Albumin Level 2.6 g/dL (3.5-5.1); Alkaline Phosphatase 119 U/L (38-126); Anion Gap 10 mmol/L (4-12); Aspartate Amino Transferase 22 U/L (14-36); Bilirubin,Total 0.3 mg/dL (0.2-1.3); Blood Urea Nitrogen 48 mg/dL (7-17); Calcium 5.8 mg/dL (8.4-10.2); Carbon Dioxide 27 mmol/L (22-30); Chloride 97 mmol/L (98-107); Estimated CRCL calculation 16 ml/min; Estimated Glomerular Filt Rate 15; Glucose 84 mg/dL (65-110); Magnesium 1.7 mg/dL (1.6-2.3); Potassium 2.7 mmol/L (3.4-5.0); Sodium 134 mmol/L (137-145)
--- NOTE | 2025-02-14 05:28 | ECG_ITS ---
Test Date: 2025-02-14 05:45:30 Measurements Intervals [place] Rate: 80 P: 14 CO: 202 QRS: 11 QRSD: 108 T: -26 QT: 330 QTc: 381 Interpretive Statements SINUS RHYTHM BORDERLINE AV CONDUCTION DELAY LOW QRS VOLTAGE IN PRECORDIAL LEADS CANNOT R/O SEPTAL INFARCT, AGE INDETERMINATE CONSIDER ANTERIOR INFARCT, AGE INDETERMINATE BORDERLINE ST-T WAVE ABNORMALITY- INF/LAT LEADS BASELINE ARTIFACT- I, II, III, AVR, AVL, AVF, V1-V6 ABNORMAL ECG Compared to ECG 02/11/2025 18:39:40 NO SIGNIFICANT CHANGE Electronically Signed On 02-14-2025 06:23:51 CDT by Abdulkadir Lucas D.O.
[2025-02-14] MEDS: POTASSIUM CHLORIDE 20 MEQ ER TABLET PO (06:10)
[2025-02-14] MEDS: LEVOTHYROXINE SODIUM 88 MCG TABLET PO (06:10)
[2025-02-14] MEDS: CALCIUM GLUC 1,000 MG/NS 50 ML 1,000 MG/50 ML BAG 100 MG IVPB (06:13)
[2025-02-14] MEDS: POTASSIUM CHLORIDE INJ 40 MEQ in SODIUM CHLORIDE 0.9% IV 500 ML 130 MEQ IVPB (06:13)
[2025-02-14] MEDS: MAGNESIUM SULF 1 GM/D5W 100 ML 1 GM/100 ML BAG IVPB (06:14)
[2025-02-14] MEDS: UMECLIDINIUM/VILANTEROL 62.5-25 MCG ELLIPTA 1 PUFF INHALATION (08:14)
[2025-02-14] MEDS: HYDROcodone/acetaminophen (*CRX) 5-325 MG TABLET 1 TAB PO ×2 (09:28→20:34)
[2025-02-14] MEDS: MEROPENEM 500 MG/NS 100 ML 500 MG/100 ML BAG 200 MG IVPB ×2 (09:28→21:37)
[2025-02-14] MEDS: CLOPIDOGREL BISULFATE 75 MG TABLET PO (09:30)
[2025-02-14] MEDS: RANOLAZINE 500 MG TAB.ER.12H PO ×2 (09:31→20:26)
--- NOTE | 2025-02-14 10:24 | P.PNNP_ITS ---
Progress Note: A&P Assessment and Plan (1) Acute kidney injury: Code(s): N17.9 - Acute kidney failure, unspecified Status: Acute Assessment and Plan: * improving * as evidenced by admission labs * multifactorial etiology: * prerenal factors (diarrhea) * urinary retention * early sepsis/infection (UTI + pneumonia) * evaluation to date noted: * renal u/s with mild right hydronephrosis * bladder scan with evidence of urinary retention * urine electrolytes non prerenal * urine eosinophils negative * CPK normal * UA suggestive of infection * proteinuria noted * calles in place now * continue IVFs for now * follow trend of repeat labs and UOP (2) Chronic kidney disease, stage 3: Qualifiers: Chronic kidney disease stage 3 subtype: stage 3a (GFR 45-59) Qualified Code(s): N18.31 - Chronic kidney disease, stage 3a Code(s): N18.30 - Chronic kidney disease, stage 3 unspecified Status: Chronic Assessment and Plan: * baseline creatinine runs around 1.4 - 1.9mg/dl in the last few years * however, has been as low as 0.9 - 1.1mg/dl * secondary to 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 (3) Anemia: Code(s): D64.9 - Anemia, unspecified Status: Acute Assessment and Plan: * noted drop in H/H by AM labs (02/13) * PRBC transfusion per protocol * anemia studies with iron deficiency * complicated by recent start of Eliquis for PE (on hold currently) * GI following - planning EGD/colonoscopy * follow trend of H/H (4) Urinary tract infection: Code(s): N39.0 - Urinary tract infection, site not specified Status: Acute Assessment and Plan: * admission UA highly suggestive * on antibiotics * urine culture with E.coli and Enterococcus (5) Pneumonia: Code(s): J18.9 - Pneumonia, unspecified organism Status: Acute Assessment and Plan: * as suggested by admission imaging * follow culture data - blood culture negative to date * on antibiotics (6) Metabolic acidosis: Code(s): E87.20 - Acidosis, unspecified Status: Acute Assessment and Plan: * resolved * due to JOSR/ARF coupled from diarrhea * compensated with bicarb IVFs (off this intervention) * follow trend of CO2 (7) Bilateral lower extremity edema: Code(s): R60.0 - Localized edema Status: Acute Assessment and Plan: * noted on admission * related to JOSR/ARF(?) * possible venous insufficiency/circulation issues (has known PAD) * venous dopplers negative for DVT * related to proteinuria(?) * follow clinical exam (8) Acute urinary retention: Code(s): R33.8 - Other retention of urine Status: Acute Assessment and Plan: * as noted by renal ultrasound and bladders scans * calles catheter in place * Urology recommendations noted (9) Acute diarrhea: Code(s): R19.7 - Diarrhea, unspecified Status: Acute Assessment and Plan: * as noted by admission history * however, no episodes while hospitalized * CT A/P results noted * on immodium (10) Essential hypertension: Code(s): I10 - Essential (primary) hypertension Status: Chronic Assessment and Plan: * reasonable control * follow trend of hemodynamics Will continue to follow. Subjective Date/time seen: 02/14/25 10:24 Interval history: Follow-up for acute kidney injury/acute renal failure on chronic kidney disease. Renal function/creatinine continues to slowly improve as noted by trend of labs and with reasonable urine output as well; tolerated PRBC transfusion yesterday with appropriate incrementation of H/H; noted tentative plans for EGD + colonoscopy although did not tolerated bowel prep yesterday afternoon; electrolytes being replaced now (due to low K+ and low calcium); otherwise, no apparent distress voiced at the time of my visit. Exam Narrative: General: elderly (appears older than stated age) WD/WN female in NAD Heart: normal S1 and S2; no rub Lungs: clear to auscultation Abdomen: soft, nontender, nondistended, positive bowel sounds Extremities: no cyanosis or clubbing; 1+ edema Skin: warm and intact Objective Data Vital Signs Vital Signs: Vital Signs Temp Pulse Resp BP Pulse Ox O2 Del Method O2 Flow Rate 02/14/25 10:00 76 02/14/25 08:15 80 20 02/14/25 08:15 92 Room Air 02/14/25 08:00 83 02/14/25 08:00 92 Room Air 02/14/25 08:00 97.7 F 76 20 117/51 L 92 02/14/25 04:00 82 02/14/25 04:00 98 F 82 20 124/58 L 96 02/14/25 01:55 76 20 02/14/25 01:42 78 18 02/14/25 00:00 86 02/14/25 00:00 93 Room Air 02/13/25 23:35 98.8 F 86 20 130/55 L 97 02/13/25 20:35 80 20 02/13/25 20:21 79 24 H 02/13/25 20:21 79 24 H 89 L Room Air 02/13/25 20:12 83 02/13/25 20:00 81 02/13/25 20:00 93 Room Air 02/13/25 20:00 97.9 F 85 20 108/51 L 94 02/13/25 17:51 85 02/13/25 16:00 83 20 93 Room Air 02/13/25 16:00 86 Intake/Output Intake/Output: Intake & Output 02/11/25 02/12/25 02/13/25 02/14/25 23:59 23:59 23:59 23:59 Intake Total 1050 4410 2044.0 1110 Output Total 200 1150 1625 650 Balance 850 3260 419.0 460 Meds/Results Medications: Active Medications Generic Name Dose Route Start Last Admin Trade Name Freq PRN Reason Stop Dose Admin Acetaminophen 650 mg 02/11/25 20:54 Acetaminophen 325 Mg Tablet PO Q4H PRN Mild Pain (1-3) or Fever Hydrocodone Bitart/Acetaminophen 1 tab 02/11/25 20:54 02/14/25 09:28 Hydrocodone/Acetaminophen (*Crx) 5-325 Mg Tablet PO 1 tab Q4H PRN Administration Pain Rated 4-6 Albuterol/Ipratropium 3 ml 02/12/25 08:00 02/14/25 14:18 Ipratropium 0.5 Mg/Albuterol Sulfate 2.5 Mg Ampul.Neb 3 Ml INHALATION 3 ml Q6HRT ENEDELIA Administration Apixaban 5 mg 02/12/25 09:00 02/13/25 08:25 Apixaban 5 Mg Tablet PO 5 mg Q12HR ENEDELIA Administration Calcium Carbonate 200 mg 02/12/25 02:37 Calcium Carbonate (Tums) 500 Mg (200 Mg Elemental) PO QID PRN dyspepsia Calcium Carbonate 500 mg 02/14/25 12:00 02/14/25 11:59 Calcium Carbonate (Oscal) 500 Mg Tablet PO 500 mg TIDWM ENEDELIA Administration Carvedilol 25 mg 02/12/25 09:00 02/14/25 12:00 Carvedilol 25 Mg Tablet PO 25 mg Q12HR ENEDELIA Administration Clopidogrel Bisulfate 75 mg 02/12/25 09:00 02/14/25 09:30 Clopidogrel Bisulfate 75 Mg Tablet PO 75 mg QAM ENEDELIA Administration Felodipine 10 mg 02/12/25 09:00 02/14/25 12:00 Felodipine 5 Mg Tab Cr PO 10 mg QAM ENEDELIA Administration Meropenem 500 mg in 100 mls @ 200 mls/hr 02/13/25 12:30 02/14/25 09:28 IVPB 02/19/25 21:29 200 mls/hr Q12HR ENEDELIA Administration Sodium Chloride 1,000 mls @ 75 mls/hr 02/13/25 17:15 02/13/25 20:11 Normal Saline Iv IV CONT 75 mls/hr .[id number] ENEDELIA Administration Doxycycline Hyclate 100 mg in 100 mls @ 100 mls/hr 02/14/25 10:40 02/14/25 11:52 Vibramycin 100 Mg/Ns 100 Ml IVPB 02/16/25 21:59 100 mls/hr Q12HR ENEDELIA Administration Iron Sucrose 200 mg/ Iron 265 mls @ 176.667 mls/hr 02/14/25 15:30 Sucrose 100 mg/ Sodium IVPB 02/14/25 16:59 Chloride ONCE ONE Isosorbide Mononitrate 30 mg 02/12/25 09:00 02/14/25 12:00 Isosorbide Mononitrate 30 Mg Tab.Er.24h PO 30 mg DAILY ENEDELIA Administration Levothyroxine Sodium 88 mcg 02/12/25 06:30 02/14/25 06:10 Levothyroxine Sodium 88 Mcg Tablet PO 88 mcg DAILY@0630 ENEDELIA Administration Linezolid 600 mg 02/14/25 21:00 Linezolid 600 Mg Tablet PO 02/21/25 09:01 Q12HR [facility] Morphine Sulfate 2 mg 02/14/25 10:36 Morphine Sulfate (*Crx) 2 Mg/Ml Inj IV PUSH Q4H PRN Pain Rated 7-10 Nitroglycerin 0.4 mg 02/12/25 02:37 Nitroglycerin Sl 0.4 Mg Tablet SUBLINGUAL Q5M PRN Chest Pain Ondansetron HCl 4 mg 02/11/25 20:54 02/14/25 08:13 Ondansetron Inj 4 Mg/2 Ml Vial IV PUSH 4 mg Q4H PRN Administration Nausea Oxybutynin Chloride 15 mg 02/12/25 09:00 02/13/25 08:25 Oxybutynin Chloride Xl 5 Mg Tab.Er.24 PO 15 mg DAILY ENEDELIA Administration Pantoprazole Sodium 40 mg 02/12/25 02:55 Pantoprazole 40 Mg Tablet PO DAILY PRN acid reflux Polyethylene Glycol 119 gm 02/17/25 20:00 Polyethylene Glycol 3350 238 Gm Bottle PO 02/18/25 05:01 BID@0500,2000 [facility] Promethazine HCl 12.5 mg 02/14/25 10:29 02/14/25 10:58 Promethazine Hcl 25 Mg/Ml Ampul IV PUSH 12.5 mg Q6H PRN Administration Nausea And Vomiting Ranolazine 500 mg 02/12/25 09:00 02/14/25 09:31 Ranolazine 500 Mg Tab.Er.12h PO 500 mg Q12HR [facility] Administration Rosuvastatin Calcium 40 mg 02/12/25 09:00 02/14/25 12:00 Rosuvastatin 20 Mg Tablet PO 40 mg DAILY [facility] Administration Umeclidinium/Vilanterol 1 puff 02/12/25 08:00 02/14/25 08:14 Umeclidinium/Vilanterol 62.5-25 Mcg Ellipta INHALATION 1 puff DAILYRT [facility] Administration Radiology Results: ITS Impressions Abdomen/Pelvis CT 02/11/25 19:34 IMPRESSION: Left basilar consolidation, an interval change from prior. Findings within the colon suggesting a diarrheal illness, for which clinical correlation is needed. Chest X-Ray 02/11/25 19:58 IMPRESSION: No focal infiltrate or effusion. Venous Doppler Study 02/12/25 11:17 IMPRESSION: 1: No lower extremity deep venous thrombosis. Renal Ultrasound 02/12/25 11:18 Impression: 1: Mild right hydronephrosis. Labs Labs: Laboratory Results - last 24 hr 02/14/25 04:19 WBC 18.4 H Hgb 7.9 L Hct 23.7 L Plt Count 345 Sodium 134 L Potassium 2.7 L* Chloride 97 L Carbon Dioxide 27 Anion Gap 10 BUN 48 H D Creatinine 3.05 H Estim Creat Clear Calc 16 Estimated GFR 15 L Glucose 84 Lactic Acid 1.2 Calcium 5.8 L* Phosphorus 4.0 Magnesium 1.7 Total Bilirubin 0.3 AST 22 ALT 18 Alkaline Phosphatase 119 Total Protein 6.0 L Albumin 2.6 L Microbiology 02/11/25 18:54 Urine Catheterized Urine Culture - Final Vanco Res Enterococcus faecium Escherichia Coli
[2025-02-14] MEDS: PROMETHAZINE HCL 25 MG/ML AMPUL 12.5 MG IV PUSH ×2 (10:58→20:36)
[2025-02-14] MEDS: DOXYCYCLINE 100 MG/NS 100 ML 100 MG/100 ML BAG IVPB ×2 (11:52→20:27)
[2025-02-14] MEDS: CALCIUM CARBONATE (OSCAL) 500 MG TABLET PO ×2 (11:59→16:04)
[2025-02-14] MEDS: ISOSORBIDE MONONITRATE 30 MG TAB.ER.24H PO (12:00)
[2025-02-14] MEDS: FELODIPINE 5 MG TAB CR 10 MG PO (12:00)
[2025-02-14] MEDS: carvediloL 25 MG TABLET PO ×2 (12:00→20:26)
[2025-02-14] MEDS: ROSUVASTATIN 20 MG TABLET 40 MG PO (12:00)
[2025-02-14 13:15] LABS: Alanine Aminotransferase 21 U/L (6-35); Albumin Level 2.8 g/dL (3.5-5.1); Alkaline Phosphatase 126 U/L (38-126); Anion Gap 8 mmol/L (4-12); Aspartate Amino Transferase 29 U/L (14-36); Bilirubin,Total 0.5 mg/dL (0.2-1.3); Blood Urea Nitrogen 44 mg/dL (7-17); Calcium 6.1 mg/dL (8.4-10.2); Carbon Dioxide 25 mmol/L (22-30); Chloride 100 mmol/L (98-107); Estimated CRCL calculation 18 ml/min; Estimated Glomerular Filt Rate 18; Glucose 89 mg/dL (65-110); Magnesium 1.8 mg/dL (1.6-2.3); Potassium 3.8 mmol/L (3.4-5.0); Sodium 133 mmol/L (137-145)
--- NOTE | 2025-02-14 14:39 | P.PNIM_ITS ---
Progress Note: A&P Assessment and Plan (1) Sepsis: Qualifiers: Acute renal failure type: unspecified Sepsis acute organ dysfunction status: with acute organ dysfunction Sepsis type: sepsis due to unspecified or ganism Severe sepsis acute organ dysfunction type: acute renal failure Severe sepsis shock status: without septic shock Qualified Code(s): A41.9 - Sepsis, unspecified organism; R65.20 - Severe sepsis without septic shock; N17.9 - Acute kidney failure, unspecified Code(s): A41.9 - Sepsis, unspecified organism Status: Acute (2) Diarrhea: Qualifiers: Diarrhea type: infectious Qualified Code(s): A09 - Infectious gastroenteritis and colitis, unspecified Code(s): R19.7 - Diarrhea, unspecified Status: Acute (3) Acute respiratory failure with hypoxia: Code(s): J96.01 - Acute respiratory failure with hypoxia Status: Acute (4) Acute UTI: Code(s): N39.0 - Urinary tract infection, site not specified Status: Acute (5) Acute kidney injury: Code(s): N17.9 - Acute kidney failure, unspecified Status: Acute (6) Chronic kidney disease, stage 3: Qualifiers: Chronic kidney disease stage 3 subtype: stage 3a (GFR 45-59) Qualified Code(s): N18.31 - Chronic kidney disease, stage 3a Code(s): N18.30 - Chronic kidney disease, stage 3 unspecified Status: Acute (7) Chronic anticoagulation: Code(s): Z79.01 - alf (current) use of anticoagulants Status: Acute Plan Sepsis From pneumonia and diarrhea CT AP showed diarrhea disease and LLL Pneumonia Blood cultures Continue Meropenem, Doxy and Flagyl, IVF monitor Pneumonia LLL pneumonia per CT AP WBC 18.4 from 29.4 Continue above care Diarrhea No inflammation per CT Patient noted much improvement, however, of noted she has been on imodium since onset and thus has likely arrested the diarrhea continue above care and IVF JOSR Cr 2.68 from 6.19 From dehydration Continue IVF Iron deficiency anemia r/o GI bleed hb 7.9 down from 9, s/p 1 unit Isat 10, Venofer 700/1000 FOBT ordered Patient had a recent PE last month and was started on Eliquis For Endoscopy per GI UTI urine culture positive for E coli and VRE Continue Meropenem and Start Linezolid monitor PE Eliquis on hold due to GI bleed Venous doppler negative for DVT HTN titrate home meds with clinical course PAD s/p stent continue Home meds JANNY on CPAP DVT prophylaxis Eliquis on hold due to GI bleed Subjective Date/time seen: 02/14/25 14:39 Interval history: Comfortable at bedside GI eval noted and plans for endoscopy Review of Systems Review of Systems: 12 systems were reviewed with pertinent positives and negatives per HPI. Except as documented in the HPI, all other systems were reviewed and are negative. Exam Narrative: Weight 71.4 kg BMI 27.9 Const: Other: Acutely ill-appearing, appears older than stated age, height weight proportionate HENMT: Other: Mucous membranes are dry, edentulous in upper and lower jaw, head is normocephalic atraumatic Eyes: Other: Positive conjunctival pallor, no scleral icterus, pupils are equal and reactive with evidence of bilateral lens replacements Neck: Other: No JVD, no lymphadenopathy Resp: Other: Clear to auscultation bilaterally, no increased work of breathing Cardio: Other: Regular rate, regular rhythm, 2+ bilateral radial and pedal pulses, no murmur GI: Other: Soft, nontender, nondistended, positive bowel sounds, no organomegaly : Other: Depends in place Skin: Other: Jaundice, underlying pallor, bruising to the tops of the feet bilaterally, skin of the lower extremities is tight and shiny Neuro: Other: Alert orient x4, speech is clear, no facial asymmetry Extrem: Other: Marked edema bilateral lower extremities which is symmetrical, bruising to the dorsum of the feet bilaterally on the right side more to the toes on the left 8 just proximal to the toes, patient moves all extremities equally, 5/5 well logging captain strength bilateral Objective Data Vital Signs Vital Signs: Vital Signs - 24 hr 02/13/25 15:51 02/13/25 16:00 02/13/25 16:00 Temperature 97.9 F Pulse Rate 83 86 83 Respiratory Rate 20 20 Blood Pressure 122/79 Pulse Oximetry 93 93 Oxygen Delivery Room Air Oxygen Flow Rate Fraction of Inspired Oxygen 34 02/13/25 17:51 02/13/25 20:00 02/13/25 20:00 Temperature 97.9 F Pulse Rate 85 85 Respiratory Rate 20 Blood Pressure 108/51 L Pulse Oximetry 94 93 Oxygen Delivery Room Air Oxygen Flow Rate Fraction of Inspired Oxygen 02/13/25 20:00 02/13/25 20:12 02/13/25 20:21 Temperature Pulse Rate 81 83 79 Respiratory Rate 24 H Blood Pressure Pulse Oximetry 89 L Oxygen Delivery Room Air Oxygen Flow Rate Fraction of Inspired Oxygen 02/13/25 20:21 02/13/25 20:35 02/13/25 23:35 Temperature 98.8 F Pulse Rate 79 80 86 Respiratory Rate 24 H 20 20 Blood Pressure 130/55 L Pulse Oximetry 97 Oxygen Delivery Oxygen Flow Rate Fraction of Inspired Oxygen 02/14/25 00:00 02/14/25 00:00 02/14/25 01:42 Temperature Pulse Rate 86 78 Respiratory Rate 18 Blood Pressure Pulse Oximetry 93 Oxygen Delivery Room Air Oxygen Flow Rate Fraction of Inspired Oxygen 02/14/25 01:55 02/14/25 03:57 02/14/25 04:00 Temperature 98 F Pulse Rate 76 82 Respiratory Rate 20 20 Blood Pressure 124/58 L Pulse Oximetry 95 96 Oxygen Delivery Nasal Cannula Oxygen Flow Rate 4 Fraction of Inspired Oxygen 02/14/25 04:00 02/14/25 08:00 02/14/25 08:00 Temperature 97.7 F Pulse Rate 82 76 Respiratory Rate 20 Blood Pressure 117/51 L Pulse Oximetry 92 92 Oxygen Delivery Room Air Oxygen Flow Rate Fraction of Inspired Oxygen 02/14/25 08:00 02/14/25 08:15 02/14/25 08:15 Temperature Pulse Rate 83 80 Respiratory Rate 20 Blood Pressure Pulse Oximetry 92 Oxygen Delivery Room Air Oxygen Flow Rate Fraction of Inspired Oxygen 02/14/25 10:00 02/14/25 12:00 02/14/25 12:00 Temperature 97.7 F Pulse Rate 76 77 81 Respiratory Rate 20 Blood Pressure 124/58 L Pulse Oximetry 93 Oxygen Delivery Oxygen Flow Rate Fraction of Inspired Oxygen 02/14/25 12:00 02/14/25 14:13 02/14/25 14:31 Temperature Pulse Rate 80 88 81 Respiratory Rate 18 18 Blood Pressure Pulse Oximetry Oxygen Delivery Oxygen Flow Rate Fraction of Inspired Oxygen Intake/Output Intake/Output: Intake & Output 02/11/25 02/12/25 02/13/25 02/14/25 23:59 23:59 23:59 23:59 Intake Total 1050 4410 2044.0 1110 Output Total 200 1150 1625 650 Balance 850 3260 419.0 460 Meds/Results Medications: Active Medications Generic Name Dose Route Start Last Admin Trade Name Freq PRN Reason Stop Dose Admin Acetaminophen 650 mg 02/11/25 20:54 Acetaminophen 325 Mg Tablet PO Q4H PRN Mild Pain (1-3) or Fever Hydrocodone Bitart/Acetaminophen 1 tab 02/11/25 20:54 02/14/25 09:28 Hydrocodone/Acetaminophen (*Crx) 5-325 Mg Tablet PO 1 tab Q4H PRN Administration Pain Rated 4-6 Albuterol/Ipratropium 3 ml 02/12/25 08:00 02/14/25 14:18 Ipratropium 0.5 Mg/Albuterol Sulfate 2.5 Mg Ampul.Neb 3 Ml INHALATION 3 ml Q6HRT ENEDELIA Administration Apixaban 5 mg 02/12/25 09:00 02/13/25 08:25 Apixaban 5 Mg Tablet PO 5 mg Q12HR ENEDELIA Administration Calcium Carbonate 200 mg 02/12/25 02:37 Calcium Carbonate (Tums) 500 Mg (200 Mg Elemental) PO QID PRN dyspepsia Calcium Carbonate 500 mg 02/14/25 12:00 02/14/25 11:59 Calcium Carbonate (Oscal) 500 Mg Tablet PO 500 mg TIDWM ENEDELIA Administration Carvedilol 25 mg 02/12/25 09:00 02/14/25 12:00 Carvedilol 25 Mg Tablet PO 25 mg Q12HR ENEDELIA Administration Clopidogrel Bisulfate 75 mg 02/12/25 09:00 02/14/25 09:30 Clopidogrel Bisulfate 75 Mg Tablet PO 75 mg QAM ENEDELIA Administration Felodipine 10 mg 02/12/25 09:00 02/14/25 12:00 Felodipine 5 Mg Tab Cr PO 10 mg QAM ENEDELIA Administration Meropenem 500 mg in 100 mls @ 200 mls/hr 02/13/25 12:30 02/14/25 09:28 IVPB 02/19/25 21:29 200 mls/hr Q12HR ENEDELIA Administration Sodium Chloride 1,000 mls @ 75 mls/hr 02/13/25 17:15 02/13/25 20:11 Normal Saline Iv IV CONT 75 mls/hr .[id number] ENEDELIA Administration Doxycycline Hyclate 100 mg in 100 mls @ 100 mls/hr 02/14/25 10:40 02/14/25 11:52 Vibramycin 100 Mg/Ns 100 Ml IVPB 02/16/25 21:59 100 mls/hr Q12HR [facility] Administration Isosorbide Mononitrate 30 mg 02/12/25 09:00 02/14/25 12:00 Isosorbide Mononitrate 30 Mg Tab.Er.24h PO 30 mg DAILY ENEDELIA Administration Levothyroxine Sodium 88 mcg 02/12/25 06:30 02/14/25 06:10 Levothyroxine Sodium 88 Mcg Tablet PO 88 mcg DAILY@0630 ENEDELIA Administration Linezolid 600 mg 02/14/25 21:00 Linezolid 600 Mg Tablet PO 02/21/25 09:01 Q12HR [facility] Morphine Sulfate 2 mg 02/14/25 10:36 Morphine Sulfate (*Crx) 2 Mg/Ml Inj IV PUSH Q4H PRN Pain Rated 7-10 Nitroglycerin 0.4 mg 02/12/25 02:37 Nitroglycerin Sl 0.4 Mg Tablet SUBLINGUAL Q5M PRN Chest Pain Ondansetron HCl 4 mg 02/11/25 20:54 02/14/25 08:13 Ondansetron Inj 4 Mg/2 Ml Vial IV PUSH 4 mg Q4H PRN Administration Nausea Oxybutynin Chloride 15 mg 02/12/25 09:00 02/13/25 08:25 Oxybutynin Chloride Xl 5 Mg Tab.Er.24 PO 15 mg DAILY ENEDELIA Administration Pantoprazole Sodium 40 mg 02/12/25 02:55 Pantoprazole 40 Mg Tablet PO DAILY PRN acid reflux Promethazine HCl 12.5 mg 02/14/25 10:29 02/14/25 10:58 Promethazine Hcl 25 Mg/Ml Ampul IV PUSH 12.5 mg Q6H PRN Administration Nausea And Vomiting Ranolazine 500 mg 02/12/25 09:00 02/14/25 09:31 Ranolazine 500 Mg Tab.Er.12h PO 500 mg Q12HR [facility] Administration Rosuvastatin Calcium 40 mg 02/12/25 09:00 02/14/25 12:00 Rosuvastatin 20 Mg Tablet PO 40 mg DAILY ENEDELIA Administration Umeclidinium/Vilanterol 1 puff 02/12/25 08:00 02/14/25 08:14 Umeclidinium/Vilanterol 62.5-25 Mcg Ellipta INHALATION 1 puff DAILYRT ENEDELIA Administration Radiology Results: ITS Impressions Abdomen/Pelvis CT 02/11/25 19:34 IMPRESSION: Left basilar consolidation, an interval change from prior. Findings within the colon suggesting a diarrheal illness, for which clinical correlation is needed. Chest X-Ray 02/11/25 19:58 IMPRESSION: No focal infiltrate or effusion. Venous Doppler Study 02/12/25 11:17 IMPRESSION: 1: No lower extremity deep venous thrombosis. Renal Ultrasound 02/12/25 11:18 Impression: 1: Mild right hydronephrosis. Labs Labs: Laboratory Results - last 24 hr 02/14/25 02/14/25 02/14/25 04:13 04:19 12:58 WBC 18.4 H RBC 2.58 L Hgb 7.9 L Hct 23.7 L MCV 91.9 MCH 30.6 MCHC 33.3 RDW 19.3 H Plt Count 345 MPV 9.8 Immature Gran % (Auto) 1.6 H Neut % (Auto) 80.1 H Lymph % (Auto) 12.2 L [place] % (Auto) 6.0 Eos % (Auto) 0.0 Baso % (Auto) 0.1 L Lymph # (Auto) 2.25 [place] # (Auto) 1.1 H Eos # (Auto) 0.0 Baso # (Auto) 0.0 Abs Immat Gran (auto) 0.30 H Absolute Neuts (auto) 14.7 H Absolute Nucleated RBC 0.050 H Nucleated RBC % 0.3 H Sodium 134 L 133 L Potassium 2.7 L* 3.8 Chloride 97 L 100 Carbon Dioxide 27 25 Anion Gap 10 8 BUN 48 H D 44 H Creatinine 3.05 H 2.68 H Estim Creat Clear Calc 16 18 Estimated GFR 15 L 18 L Glucose 84 89 Lactic Acid 1.2 Calcium 5.8 L* 6.1 L Phosphorus 4.0 Magnesium 1.7 1.8 Total Bilirubin 0.3 0.5 AST 22 29 ALT 18 21 Alkaline Phosphatase 119 126 Total Protein 6.0 L 6.0 L Albumin 2.6 L 2.8 L Quality VTE Prophylaxis VTE prophylaxis: pharmacologic ordered (Continue home Eliquis)
--- NOTE | 2025-02-14 15:07 | P.PNGI_ITS ---
Progress Note: A&P Assessment and Plan (1) Chronic iron deficiency anemia: Code(s): D50.9 - Iron deficiency anemia, unspecified Status: Acute Assessment and Plan: The plan is to reschedule the EGD and colonoscopy on Monday. Bowel preparation orders for Monday evening have been re-entered in the chart. The patient is currently receiving antibiotic treatment for pneumonia and a urinary tract infection. Notably, she has had no bowel movements since presenting to the emergency department three days ago, which was the primary reason for her admission. Subjective Date/time seen: 02/14/25 15:07 Interval history: The patient ate food today, therefore EGD was canceled. She did not tolerate colonoscopy prep either. Exam Narrative: Alert and oriented x3. Abdomen: Soft, nontender, nondistended, no hepatosplenomegaly. Rest of the exam unchanged. Objective Data Vital Signs Vital Signs: Vital Signs - 24 hr 02/13/25 15:51 02/13/25 16:00 02/13/25 16:00 Temperature 97.9 F Pulse Rate 83 86 83 Respiratory Rate 20 20 Blood Pressure 122/79 Pulse Oximetry 93 93 Oxygen Delivery Room Air Oxygen Flow Rate Fraction of Inspired Oxygen 34 02/13/25 17:51 02/13/25 20:00 02/13/25 20:00 Temperature 97.9 F Pulse Rate 85 85 Respiratory Rate 20 Blood Pressure 108/51 L Pulse Oximetry 94 93 Oxygen Delivery Room Air Oxygen Flow Rate Fraction of Inspired Oxygen 02/13/25 20:00 02/13/25 20:12 02/13/25 20:21 Temperature Pulse Rate 81 83 79 Respiratory Rate 24 H Blood Pressure Pulse Oximetry 89 L Oxygen Delivery Room Air Oxygen Flow Rate Fraction of Inspired Oxygen 02/13/25 20:21 02/13/25 20:35 02/13/25 23:35 Temperature 98.8 F Pulse Rate 79 80 86 Respiratory Rate 24 H 20 20 Blood Pressure 130/55 L Pulse Oximetry 97 Oxygen Delivery Oxygen Flow Rate Fraction of Inspired Oxygen 02/14/25 00:00 02/14/25 00:00 02/14/25 01:42 Temperature Pulse Rate 86 78 Respiratory Rate 18 Blood Pressure Pulse Oximetry 93 Oxygen Delivery Room Air Oxygen Flow Rate Fraction of Inspired Oxygen 02/14/25 01:55 02/14/25 03:57 02/14/25 04:00 Temperature 98 F Pulse Rate 76 82 Respiratory Rate 20 20 Blood Pressure 124/58 L Pulse Oximetry 95 96 Oxygen Delivery Nasal Cannula Oxygen Flow Rate 4 Fraction of Inspired Oxygen 02/14/25 04:00 02/14/25 08:00 02/14/25 08:00 Temperature 97.7 F Pulse Rate 82 76 Respiratory Rate 20 Blood Pressure 117/51 L Pulse Oximetry 92 92 Oxygen Delivery Room Air Oxygen Flow Rate Fraction of Inspired Oxygen 02/14/25 08:00 02/14/25 08:15 02/14/25 08:15 Temperature Pulse Rate 83 80 Respiratory Rate 20 Blood Pressure Pulse Oximetry 92 Oxygen Delivery Room Air Oxygen Flow Rate Fraction of Inspired Oxygen 02/14/25 10:00 02/14/25 12:00 02/14/25 12:00 Temperature 97.7 F Pulse Rate 76 77 81 Respiratory Rate 20 Blood Pressure 124/58 L Pulse Oximetry 93 Oxygen Delivery Oxygen Flow Rate Fraction of Inspired Oxygen 02/14/25 12:00 02/14/25 14:13 02/14/25 14:31 Temperature Pulse Rate 80 88 81 Respiratory Rate 18 18 Blood Pressure Pulse Oximetry Oxygen Delivery Oxygen Flow Rate Fraction of Inspired Oxygen Intake/Output Intake/Output: Intake & Output 02/11/25 02/12/25 02/13/25 02/14/25 23:59 23:59 23:59 23:59 Intake Total 1050 4410 2044.0 1110 Output Total 200 1150 1625 650 Balance 850 3260 419.0 460 Meds/Results Medications: Active Medications Generic Name Dose Route Start Last Admin Trade Name Freq PRN Reason Stop Dose Admin Acetaminophen 650 mg 02/11/25 20:54 Acetaminophen 325 Mg Tablet PO Q4H PRN Mild Pain (1-3) or Fever Hydrocodone Bitart/Acetaminophen 1 tab 02/11/25 20:54 02/14/25 09:28 Hydrocodone/Acetaminophen (*Crx) 5-325 Mg Tablet PO 1 tab Q4H PRN Administration Pain Rated 4-6 Albuterol/Ipratropium 3 ml 02/12/25 08:00 02/14/25 14:18 Ipratropium 0.5 Mg/Albuterol Sulfate 2.5 Mg Ampul.Neb 3 Ml INHALATION 3 ml Q6HRT ENEDELIA Administration Apixaban 5 mg 02/12/25 09:00 02/13/25 08:25 Apixaban 5 Mg Tablet PO 5 mg Q12HR ENEDELIA Administration Calcium Carbonate 200 mg 02/12/25 02:37 Calcium Carbonate (Tums) 500 Mg (200 Mg Elemental) PO QID PRN dyspepsia Calcium Carbonate 500 mg 02/14/25 12:00 02/14/25 11:59 Calcium Carbonate (Oscal) 500 Mg Tablet PO 500 mg TIDWM ENEDELIA Administration Carvedilol 25 mg 02/12/25 09:00 02/14/25 12:00 Carvedilol 25 Mg Tablet PO 25 mg Q12HR ENEDELIA Administration Clopidogrel Bisulfate 75 mg 02/12/25 09:00 02/14/25 09:30 Clopidogrel Bisulfate 75 Mg Tablet PO 75 mg QAM ENEDELIA Administration Felodipine 10 mg 02/12/25 09:00 02/14/25 12:00 Felodipine 5 Mg Tab Cr PO 10 mg QAM ENEDELIA Administration Meropenem 500 mg in 100 mls @ 200 mls/hr 02/13/25 12:30 02/14/25 09:28 IVPB 02/19/25 21:29 200 mls/hr Q12HR ENEDELIA Administration Sodium Chloride 1,000 mls @ 75 mls/hr 02/13/25 17:15 02/13/25 20:11 Normal Saline Iv IV CONT 75 mls/hr .[id number] ENEDELIA Administration Doxycycline Hyclate 100 mg in 100 mls @ 100 mls/hr 02/14/25 10:40 02/14/25 11:52 Vibramycin 100 Mg/Ns 100 Ml IVPB 02/16/25 21:59 100 mls/hr Q12HR ENEDELIA Administration Iron Sucrose 200 mg/ Iron 265 mls @ 176.667 mls/hr 02/14/25 15:30 Sucrose 100 mg/ Sodium IVPB 02/14/25 16:59 Chloride ONCE ONE Isosorbide Mononitrate 30 mg 02/12/25 09:00 02/14/25 12:00 Isosorbide Mononitrate 30 Mg Tab.Er.24h PO 30 mg DAILY ENEDELIA Administration Levothyroxine Sodium 88 mcg 02/12/25 06:30 02/14/25 06:10 Levothyroxine Sodium 88 Mcg Tablet PO 88 mcg DAILY@0630 ENEDELIA Administration Linezolid 600 mg 02/14/25 21:00 Linezolid 600 Mg Tablet PO 02/21/25 09:01 Q12HR ENEDELIA Morphine Sulfate 2 mg 02/14/25 10:36 Morphine Sulfate (*Crx) 2 Mg/Ml Inj IV PUSH Q4H PRN Pain Rated 7-10 Nitroglycerin 0.4 mg 02/12/25 02:37 Nitroglycerin Sl 0.4 Mg Tablet SUBLINGUAL Q5M PRN Chest Pain Ondansetron HCl 4 mg 02/11/25 20:54 02/14/25 08:13 Ondansetron Inj 4 Mg/2 Ml Vial IV PUSH 4 mg Q4H PRN Administration Nausea Oxybutynin Chloride 15 mg 02/12/25 09:00 02/13/25 08:25 Oxybutynin Chloride Xl 5 Mg Tab.Er.24 PO 15 mg DAILY ENEDELIA Administration Pantoprazole Sodium 40 mg 02/12/25 02:55 Pantoprazole 40 Mg Tablet PO DAILY PRN acid reflux Promethazine HCl 12.5 mg 02/14/25 10:29 02/14/25 10:58 Promethazine Hcl 25 Mg/Ml Ampul IV PUSH 12.5 mg Q6H PRN Administration Nausea And Vomiting Ranolazine 500 mg 02/12/25 09:00 02/14/25 09:31 Ranolazine 500 Mg Tab.Er.12h PO 500 mg Q12HR ENEDELIA Administration Rosuvastatin Calcium 40 mg 02/12/25 09:00 02/14/25 12:00 Rosuvastatin 20 Mg Tablet PO 40 mg DAILY ENEDELIA Administration Umeclidinium/Vilanterol 1 puff 02/12/25 08:00 02/14/25 08:14 Umeclidinium/Vilanterol 62.5-25 Mcg Ellipta INHALATION 1 puff DAILYRT ENEDELIA Administration Radiology Results: ITS Impressions Abdomen/Pelvis CT 02/11/25 19:34 IMPRESSION: Left basilar consolidation, an interval change from prior. Findings within the colon suggesting a diarrheal illness, for which clinical correlation is needed. Chest X-Ray 02/11/25 19:58 IMPRESSION: No focal infiltrate or effusion. Venous Doppler Study 02/12/25 11:17 IMPRESSION: 1: No lower extremity deep venous thrombosis. Renal Ultrasound 02/12/25 11:18 Impression: 1: Mild right hydronephrosis. Labs Labs: Laboratory Results - last 24 hr 02/14/25 02/14/25 02/14/25 04:13 04:19 12:58 WBC 18.4 H RBC 2.58 L Hgb 7.9 L Hct 23.7 L MCV 91.9 MCH 30.6 MCHC 33.3 RDW 19.3 H Plt Count 345 MPV 9.8 Immature Gran % (Auto) 1.6 H Neut % (Auto) 80.1 H Lymph % (Auto) 12.2 L [place] % (Auto) 6.0 Eos % (Auto) 0.0 Baso % (Auto) 0.1 L Lymph # (Auto) 2.25 [place] # (Auto) 1.1 H Eos # (Auto) 0.0 Baso # (Auto) 0.0 Abs Immat Gran (auto) 0.30 H Absolute Neuts (auto) 14.7 H Absolute Nucleated RBC 0.050 H Nucleated RBC % 0.3 H Sodium 134 L 133 L Potassium 2.7 L* 3.8 Chloride 97 L 100 Carbon Dioxide 27 25 Anion Gap 10 8 BUN 48 H D 44 H Creatinine 3.05 H 2.68 H Estim Creat Clear Calc 16 18 Estimated GFR 15 L 18 L Glucose 84 89 Lactic Acid 1.2 Calcium 5.8 L* 6.1 L Phosphorus 4.0 Magnesium 1.7 1.8 Total Bilirubin 0.3 0.5 AST 22 29 ALT 18 21 Alkaline Phosphatase 119 126 Total Protein 6.0 L 6.0 L Albumin 2.6 L 2.8 L
[2025-02-14] MEDS: MORPHINE SULFATE (*CRX) 2 MG/ML INJ IV PUSH (16:03)
[2025-02-14] MEDS: SODIUM CHLORIDE 0.9% IV 1,000 ML 75 ML IV CONT (16:11)
[2025-02-14] MEDS: IRON SUCROSE COMPLEX 200 MG, IRON SUCROSE COMPLEX 100 MG in SODIUM CHLORIDE 0.9% IV 250 ML 176.67 MG IVPB (16:12)
[2025-02-14] MEDS: LINEZOLID 600 MG TABLET PO (20:26)
[2025-02-15] VITALS (27 sets, daily range): BP systolic 100–130; BP diastolic 45–63; PULSE 72–86; RESP 14–20; TEMP 36.8–37.1; O2SAT 78–100
[2025-02-15] MEDS: IPRATROPIUM 0.5 MG/ALBUTEROL SULFATE 2.5 MG AMPUL.NEB 3 ML INHALATION ×4 (02:08→20:21)
[2025-02-15 04:51] LABS: Basophils Percent Auto 0.1 % (0.2-1.2); Hematocrit 25.6 % (37.0-47.0); Hemoglobin 8.1 g/dL (12.0-15.0); Immature Granulocyte Absolute 0.59 K/mm3 (0.00-0.031); Immature Granulocyte Percent A 3.5 % (0-0.5); Lymphocytes Absolute Auto 2.42 K/mm3 (0.9-3.2); Lymphocytes Percent Auto 14.6 % (18.3-44.2); Mean Corpuscular HGB Conc 31.6 g/dl (32-36); Mean Corpuscular Hemoglobin 30.2 pg (26-34); Mean Corpuscular Volume 95.5 fl (80-100); Mean Platelet Volume 9.8 fl (7.4-10.4); Monocytes Absolute Auto 1.2 K/mm3 (0.1-0.6); Monocytes Percent Auto 7.5 % (2.6-8.5); Neutrophils Absolute Auto 12.4 K/mm3 (1.3-6.7); Neutrophils Percent Auto 74.3 % (45.5-73.1); Nucleated Red Blood Cells Perc 0.4 % (0.0-0.2); Platelet Count Result 323 k/mm3 (150-375); Red Blood Count 2.68 M/mm3 (4.2-5.4); Red Cell Distribution Width 19.4 % (11.5-14.5); White Blood Count 16.6 K/mm3 (4.5-10.0)
[2025-02-15 05:02] LABS: Alanine Aminotransferase 20 U/L (6-35); Albumin Level 2.4 g/dL (3.5-5.1); Alkaline Phosphatase 116 U/L (38-126); Anion Gap 9 mmol/L (4-12); Aspartate Amino Transferase 26 U/L (14-36); Bilirubin,Total 0.4 mg/dL (0.2-1.3); Blood Urea Nitrogen 39 mg/dL (7-17); Carbon Dioxide 24 mmol/L (22-30); Chloride 105 mmol/L (98-107); Estimated CRCL calculation 18 ml/min; Estimated Glomerular Filt Rate 17; Glucose 86 mg/dL (65-110); Magnesium 1.7 mg/dL (1.6-2.3); Potassium 3.3 mmol/L (3.4-5.0); Sodium 138 mmol/L (137-145)
[2025-02-15] MEDS: SODIUM CHLORIDE 0.9% IV 1,000 ML 75 ML IV CONT (05:55)
[2025-02-15] MEDS: CALCIUM GLUC 1,000 MG/NS 50 ML 1,000 MG/50 ML BAG 100 MG IVPB (05:57)
[2025-02-15] MEDS: LEVOTHYROXINE SODIUM 88 MCG TABLET PO (05:57)
[2025-02-15 06:22] LABS: Vitamin D 25 Hydroxy 15.1 ng/mL
[2025-02-15] MEDS: UMECLIDINIUM/VILANTEROL 62.5-25 MCG ELLIPTA 1 PUFF INHALATION (08:36)
[2025-02-15] MEDS: ROSUVASTATIN 20 MG TABLET 40 MG PO (09:28)
[2025-02-15] MEDS: RANOLAZINE 500 MG TAB.ER.12H PO ×2 (09:28→21:59)
[2025-02-15] MEDS: ISOSORBIDE MONONITRATE 30 MG TAB.ER.24H PO (09:28)
[2025-02-15] MEDS: CALCIUM CARBONATE (OSCAL) 500 MG TABLET PO ×3 (09:28→16:54)
[2025-02-15] MEDS: LINEZOLID 600 MG TABLET PO ×2 (09:28→21:59)
[2025-02-15] MEDS: carvediloL 25 MG TABLET PO ×2 (09:28→21:59)
[2025-02-15] MEDS: FELODIPINE 5 MG TAB CR 10 MG PO (09:28)
[2025-02-15] MEDS: CLOPIDOGREL BISULFATE 75 MG TABLET PO (09:29)
[2025-02-15] MEDS: ERGOCALCIFEROL SOLN 8,000 UNITS/ML 60 ML BOTTLE 50000 UNITS PO (09:29)
[2025-02-15] MEDS: DOXYCYCLINE 100 MG/NS 100 ML 100 MG/100 ML BAG IVPB ×2 (09:29→22:11)
[2025-02-15] MEDS: MEROPENEM 500 MG/NS 100 ML 500 MG/100 ML BAG 200 MG IVPB ×2 (09:30→22:07)
[2025-02-15 09:35] LABS: Iron 284 ug/dL (37-170)
[2025-02-15 09:44] LABS: Percent Iron Saturation 159 % (20-50)
--- NOTE | 2025-02-15 11:01 | P.PNNP_ITS ---
Progress Note: A&P Assessment and Plan (1) Acute kidney injury: Code(s): N17.9 - Acute kidney failure, unspecified Status: Acute Assessment and Plan: * improving * as evidenced by admission labs * multifactorial etiology: * prerenal factors (diarrhea) * urinary retention * early sepsis/infection (UTI + pneumonia) * evaluation to date noted: * renal u/s with mild right hydronephrosis * urology following. they see as an outpatient * bladder scan with evidence of urinary retention * urine electrolytes non prerenal * urine eosinophils negative * CPK normal * UA suggestive of infection * proteinuria noted * calles in place now * urine still dark red * on doxy, linezolid, and meropenem * continue IVFs for now * creatinine is improved * check labs tomorrow. 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 (3) Anemia: Code(s): D64.9 - Anemia, unspecified Status: Acute Assessment and Plan: * noted drop in H/H by AM labs (02/13) * PRBC transfusion per protocol * anemia studies with iron deficiency * complicated by recent start of Eliquis for PE (on hold currently) * GI following - planning EGD/colonoscopy * hb up a little bit. (4) Urinary tract infection: Code(s): N39.0 - Urinary tract infection, site not specified Status: Acute Assessment and Plan: * admission UA highly suggestive * on three antibiotics as above * urine culture with E.coli and VRE (5) Pneumonia: Code(s): J18.9 - Pneumonia, unspecified organism Status: Acute Assessment and Plan: * as suggested by admission imaging * blood cxs NGTD * on antibiotics (6) Metabolic acidosis: Code(s): E87.20 - Acidosis, unspecified Status: Acute Assessment and Plan: * resolved (7) Bilateral lower extremity edema: Code(s): R60.0 - Localized edema Status: Acute Assessment and Plan: * noted on admission * related to JOSR/ARF(?) * possible venous insufficiency/circulation issues (has known PAD) * venous dopplers negative for DVT * related to proteinuria(?) * follow clinical exam (8) Acute urinary retention: Code(s): R33.8 - Other retention of urine Status: Acute Assessment and Plan: * as noted by renal ultrasound and bladders scans * calles catheter in place * Urology recommendations noted * sees Dr Juarez as an outpatient as well. (9) Acute diarrhea: Code(s): R19.7 - Diarrhea, unspecified Status: Acute Assessment and Plan: * as noted by admission history * however, no episodes while hospitalized * CT A/P results noted * on immodium (10) Essential hypertension: Code(s): I10 - Essential (primary) hypertension Status: Chronic Assessment and Plan: * systolic 109 to 130 * follow trend of hemodynamics Subjective Date/time seen: 02/15/25 11:01 Interval history: Rosie feels okay today. She has bilateral leg discomfort. She is not sure why that is there. It started a few weeks before admission. Ate well for breakfast. Exam Narrative: General: elderly (appears older than stated age) WD/WN female in NAD Heart: normal S1 and S2; no rub or gallop Lungs: clear to auscultation Abdomen: soft, nontender, nondistended, positive bowel sounds Extremities: 1+ edema Skin: no rash Objective Data Vital Signs Vital Signs: Vital Signs - 24 hr 02/14/25 12:00 02/14/25 12:00 02/14/25 12:00 Temperature 97.7 F Pulse Rate 77 81 80 Respiratory Rate 20 Blood Pressure 124/58 L Pulse Oximetry 93 Oxygen Delivery Oxygen Flow Rate Fraction of Inspired Oxygen 02/14/25 12:00 02/14/25 14:00 02/14/25 14:13 Temperature Pulse Rate 80 88 Respiratory Rate 18 Blood Pressure Pulse Oximetry 96 Oxygen Delivery Room Air Oxygen Flow Rate Fraction of Inspired Oxygen 02/14/25 14:31 02/14/25 16:00 02/14/25 16:00 Temperature 98 F Pulse Rate 81 85 Respiratory Rate 18 22 H Blood Pressure 126/60 Pulse Oximetry 96 94 Oxygen Delivery Room Air Oxygen Flow Rate Fraction of Inspired Oxygen 02/14/25 16:00 02/14/25 18:00 02/14/25 19:10 Temperature 98.3 F Pulse Rate 85 80 81 Respiratory Rate 18 Blood Pressure 109/51 L Pulse Oximetry 92 Oxygen Delivery Oxygen Flow Rate Fraction of Inspired Oxygen 02/14/25 20:00 02/14/25 20:02 02/14/25 20:13 Temperature Pulse Rate 78 79 85 Respiratory Rate 18 18 Blood Pressure Pulse Oximetry Oxygen Delivery Oxygen Flow Rate Fraction of Inspired Oxygen 02/14/25 20:15 02/14/25 20:20 02/14/25 20:26 Temperature Pulse Rate 83 Respiratory Rate Blood Pressure Pulse Oximetry 97 95 Oxygen Delivery Nasal Cannula Nasal Cannula Oxygen Flow Rate 4 4 Fraction of Inspired Oxygen 36 02/14/25 22:00 02/15/25 00:00 02/15/25 00:00 Temperature 98.2 F Pulse Rate 77 75 73 Respiratory Rate 18 Blood Pressure 124/53 L Pulse Oximetry 99 Oxygen Delivery Oxygen Flow Rate Fraction of Inspired Oxygen 02/15/25 00:25 02/15/25 02:00 02/15/25 02:08 Temperature Pulse Rate 73 75 Respiratory Rate 16 Blood Pressure Pulse Oximetry 95 Oxygen Delivery Nasal Cannula Oxygen Flow Rate 4 Fraction of Inspired Oxygen 02/15/25 02:17 02/15/25 04:00 02/15/25 04:00 Temperature 98.7 F Pulse Rate 78 81 72 Respiratory Rate 16 16 Blood Pressure 120/50 L Pulse Oximetry 93 Oxygen Delivery Oxygen Flow Rate Fraction of Inspired Oxygen 02/15/25 04:30 02/15/25 06:00 02/15/25 08:00 Temperature 98.5 F Pulse Rate 80 78 Respiratory Rate 20 Blood Pressure 130/63 Pulse Oximetry 94 78 L Oxygen Delivery Nasal Cannula Oxygen Flow Rate 4 Fraction of Inspired Oxygen 02/15/25 08:38 02/15/25 08:38 02/15/25 08:48 Temperature Pulse Rate 76 82 Respiratory Rate 20 20 Blood Pressure Pulse Oximetry 91 Oxygen Delivery Room Air Oxygen Flow Rate Fraction of Inspired Oxygen 02/15/25 09:28 Temperature Pulse Rate 85 Respiratory Rate Blood Pressure Pulse Oximetry Oxygen Delivery Oxygen Flow Rate Fraction of Inspired Oxygen Intake/Output Intake/Output: Intake & Output 02/12/25 02/13/25 02/14/25 02/15/25 23:59 23:59 23:59 23:59 Intake Total 4410 2044.0 3030 1540 Output Total 1150 1625 1850 550 Balance 3260 419.0 1180 990 Meds/Results Medications: Active Medications Generic Name Dose Route Start Last Admin Trade Name Freq PRN Reason Stop Dose Admin Acetaminophen 650 mg 02/11/25 20:54 Acetaminophen 325 Mg Tablet PO Q4H PRN Mild Pain (1-3) or Fever Hydrocodone Bitart/Acetaminophen 1 tab 02/11/25 20:54 02/14/25 20:34 Hydrocodone/Acetaminophen (*Crx) 5-325 Mg Tablet PO 1 tab Q4H PRN Administration Pain Rated 4-6 Albuterol/Ipratropium 3 ml 02/12/25 08:00 02/15/25 08:35 Ipratropium 0.5 Mg/Albuterol Sulfate 2.5 Mg Ampul.Neb 3 Ml INHALATION 3 ml Q6HRT ENEDELIA Administration Apixaban 5 mg 02/12/25 09:00 02/13/25 08:25 Apixaban 5 Mg Tablet PO 5 mg Q12HR ENEDELIA Administration Calcium Carbonate 200 mg 02/12/25 02:37 Calcium Carbonate (Tums) 500 Mg (200 Mg Elemental) PO QID PRN dyspepsia Calcium Carbonate 500 mg 02/14/25 12:00 02/15/25 09:28 Calcium Carbonate (Oscal) 500 Mg Tablet PO 500 mg TIDWM ENEDELIA Administration Carvedilol 25 mg 02/12/25 09:00 02/15/25 09:28 Carvedilol 25 Mg Tablet PO 25 mg Q12HR ENEDELIA Administration Clopidogrel Bisulfate 75 mg 02/12/25 09:00 02/15/25 09:29 Clopidogrel Bisulfate 75 Mg Tablet PO 75 mg QAM ENEDELIA Administration Felodipine 10 mg 02/12/25 09:00 02/15/25 09:28 Felodipine 5 Mg Tab Cr PO 10 mg QAM ENEDELIA Administration Meropenem 500 mg in 100 mls @ 200 mls/hr 02/13/25 12:30 02/15/25 09:30 IVPB 02/19/25 21:29 200 mls/hr Q12HR ENEDELIA Administration Sodium Chloride 1,000 mls @ 75 mls/hr 02/13/25 17:15 02/15/25 05:55 Normal Saline Iv IV CONT 75 mls/hr .[id number] ENEDELIA Administration Doxycycline Hyclate 100 mg in 100 mls @ 100 mls/hr 02/14/25 10:40 02/15/25 09:29 Vibramycin 100 Mg/Ns 100 Ml IVPB 02/16/25 21:59 100 mls/hr Q12HR ENEDELIA Administration Isosorbide Mononitrate 30 mg 02/12/25 09:00 02/15/25 09:28 Isosorbide Mononitrate 30 Mg Tab.Er.24h PO 30 mg DAILY ENEDELIA Administration Levothyroxine Sodium 88 mcg 02/12/25 06:30 02/15/25 05:57 Levothyroxine Sodium 88 Mcg Tablet PO 88 mcg DAILY@0630 ENEDELIA Administration Linezolid 600 mg 02/14/25 21:00 02/15/25 09:28 Linezolid 600 Mg Tablet PO 02/21/25 09:01 600 mg Q12HR ENEDELIA Administration Morphine Sulfate 2 mg 02/14/25 10:36 02/14/25 16:03 Morphine Sulfate (*Crx) 2 Mg/Ml Inj IV PUSH 2 mg Q4H PRN Administration Pain Rated 7-10 Nitroglycerin 0.4 mg 02/12/25 02:37 Nitroglycerin Sl 0.4 Mg Tablet SUBLINGUAL Q5M PRN Chest Pain Ondansetron HCl 4 mg 02/11/25 20:54 02/14/25 16:03 Ondansetron Inj 4 Mg/2 Ml Vial IV PUSH 4 mg Q4H PRN Administration Nausea Oxybutynin Chloride 15 mg 02/12/25 09:00 02/13/25 08:25 Oxybutynin Chloride Xl 5 Mg Tab.Er.24 PO 15 mg DAILY ENEDELIA Administration Pantoprazole Sodium 40 mg 02/12/25 02:55 Pantoprazole 40 Mg Tablet PO DAILY PRN acid reflux Polyethylene Glycol 119 gm 02/17/25 20:00 Polyethylene Glycol 3350 238 Gm Bottle PO 02/18/25 05:01 BID@0500,2000 [facility] Promethazine HCl 12.5 mg 02/14/25 10:29 02/14/25 20:36 Promethazine Hcl 25 Mg/Ml Ampul IV PUSH 12.5 mg Q6H PRN Administration Nausea And Vomiting Ranolazine 500 mg 02/12/25 09:00 02/15/25 09:28 Ranolazine 500 Mg Tab.Er.12h PO 500 mg Q12HR ENEDELIA Administration Rosuvastatin Calcium 40 mg 02/12/25 09:00 02/15/25 09:28 Rosuvastatin 20 Mg Tablet PO 40 mg DAILY ENEDELIA Administration Umeclidinium/Vilanterol 1 puff 02/12/25 08:00 02/15/25 08:36 Umeclidinium/Vilanterol 62.5-25 Mcg Ellipta INHALATION 1 puff DAILYRT ENEDELIA Administration Radiology Results: ITS Impressions Abdomen/Pelvis CT 02/11/25 19:34 IMPRESSION: Left basilar consolidation, an interval change from prior. Findings within the colon suggesting a diarrheal illness, for which clinical correlation is needed. Chest X-Ray 02/11/25 19:58 IMPRESSION: No focal infiltrate or effusion. Venous Doppler Study 02/12/25 11:17 IMPRESSION: 1: No lower extremity deep venous thrombosis. Renal Ultrasound 02/12/25 11:18 Impression: 1: Mild right hydronephrosis. Labs Labs: Laboratory Results - last 24 hr 02/14/25 02/15/25 02/15/25 12:58 04:21 04:22 WBC 16.6 H RBC 2.68 L Hgb 8.1 L Hct 25.6 L MCV 95.5 MCH 30.2 MCHC 31.6 L RDW 19.4 H Plt Count 323 MPV 9.8 Immature Gran % (Auto) 3.5 H Neut % (Auto) 74.3 H Lymph % (Auto) 14.6 L [place] % (Auto) 7.5 Eos % (Auto) 0.0 Baso % (Auto) 0.1 L Lymph # (Auto) 2.42 [place] # (Auto) 1.2 H Eos # (Auto) 0.0 Baso # (Auto) 0.0 Abs Immat Gran (auto) 0.59 H Absolute Neuts (auto) 12.4 H Absolute Nucleated RBC 0.070 H Nucleated RBC % 0.4 H Sodium 133 L 138 Potassium 3.8 3.3 L Chloride 100 105 Carbon Dioxide 25 24 Anion Gap 8 9 BUN 44 H 39 H Creatinine 2.68 H 2.71 H Estim Creat Clear Calc 18 18 Estimated GFR 18 L 17 L Glucose 89 86 Calcium 6.1 L 6.0 L Magnesium 1.8 1.7 Iron 284 H TIBC 179 L Ferritin 820.00 H Total Bilirubin 0.5 0.4 AST 29 26 ALT 21 20 Alkaline Phosphatase 126 116 Total Protein 6.0 L 6.0 L Albumin 2.8 L 2.4 L Vitamin D 25-Hydroxy 15.1
[2025-02-15] MEDS: ACETAMINOPHEN 325 MG TABLET 650 MG PO (12:09)
--- NOTE | 2025-02-15 12:56 | PM.IMPN ---
Progress Note: A&P Assessment and Plan (1) Sepsis: Qualifiers: Acute renal failure type: unspecified Sepsis acute organ dysfunction status: with acute organ dysfunction Sepsis type: sepsis due to unspecified organism Severe sepsis acute organ dysfunction type: acute renal failure Severe sepsis shock status: without septic shock Qualified Code(s): A41.9 - Sepsis, unspecified organism; R65.20 - Severe sepsis without septic shock; N17.9 - Acute kidney failure, unspecified Code(s): A41.9 - Sepsis, unspecified organism Status: Acute (2) Diarrhea: Qualifiers: Diarrhea type: infectious Qualified Code(s): A09 - Infectious gastroenteritis and colitis, unspecified Code(s): R19.7 - Diarrhea, unspecified Status: Acute (3) Acute respiratory failure with hypoxia: Code(s): J96.01 - Acute respiratory failure with hypoxia Status: Acute (4) Acute UTI: Code(s): N39.0 - Urinary tract infection, site not specified Status: Acute (5) Acute kidney injury: Code(s): N17.9 - Acute kidney failure, unspecified Status: Acute (6) Chronic kidney disease, stage 3: Qualifiers: Chronic kidney disease stage 3 subtype: stage 3a (GFR 45-59) Qualified Code(s): N18.31 - Chronic kidney disease, stage 3a Code(s): N18.30 - Chronic kidney disease, stage 3 unspecified Status: Chronic (7) Chronic anticoagulation: Code(s): Z79.01 - director long term care (current) use of anticoagulants Status: Acute Plan Sepsis From pneumonia and diarrhea CT AP showed diarrhea disease and LLL Pneumonia Blood cultures Continue Meropenem, Doxy and Flagyl, IVF monitor Pneumonia LLL pneumonia per CT AP WBC 18.4 from 29.4 Continue above care Diarrhea No inflammation per CT Patient noted much improvement, however, of noted she has been on imodium since onset and thus has likely arrested the diarrhea continue above care and IVF JOSR Cr 2.71 from 6.19 From dehydration Continue IVF Iron deficiency anemia r/o GI bleed hb 8.1 down from 9, s/p 1 unit Isat 10, Venofer 1000/1000 FOBT ordered Patient had a recent PE last month and was started on Eliquis For Endoscopy Monday GI following UTI urine culture positive for E coli and VRE Day 2/7 Meropenem and Day 1/7 Linezolid monitor PE Eliquis on hold due to GI bleed Venous doppler negative for DVT HTN titrate home meds with clinical course PAD s/p stent continue Home meds JANNY on CPAP Mild right hydronephrosis US reviewed Follow up with Urology outpatient DVT prophylaxis Eliquis on hold due to GI bleed Subjective Date/time seen: 02/15/25 12:56 Interval history: Comfortable awaiting EGD and colonoscopy on Monday Review of Systems Review of Systems: 12 systems were reviewed with pertinent positives and negatives per HPI. Except as documented in the HPI, all other systems were reviewed and are negative. Exam Narrative: Weight 71.4 kg BMI 27.9 Const: Other: Acutely ill-appearing, appears older than stated age, height weight proportionate HENMT: Other: Mucous membranes are dry, edentulous in upper and lower jaw, head is normocephalic atraumatic Eyes: Other: Positive conjunctival pallor, no scleral icterus, pupils are equal and reactive with evidence of bilateral lens replacements Neck: Other: No JVD, no lymphadenopathy Resp: Other: Clear to auscultation bilaterally, no increased work of breathing Cardio: Other: Regular rate, regular rhythm, 2+ bilateral radial and pedal pulses, no murmur GI: Other: Soft, nontender, nondistended, positive bowel sounds, no organomegaly : Other: Depends in place Skin: Other: Jaundice, underlying pallor, bruising to the tops of the feet bilaterally, skin of the lower extremities is tight and shiny Neuro: Other: Alert orient x4, speech is clear, no facial asymmetry Extrem: Other: Marked edema bilateral lower extremities which is symmetrical, bruising to the dorsum of the feet bilaterally on the right side more to the toes on the left 8 just proximal to the toes, patient moves all extremities equally, 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 Objective Data Vital Signs Vital Signs: Vital Signs - 24 hr 02/14/25 14:00 02/14/25 14:13 02/14/25 14:31 Temperature Pulse Rate 80 88 81 Respiratory Rate 18 18 Blood Pressure Pulse Oximetry Oxygen Delivery Oxygen Flow Rate Fraction of Inspired Oxygen 02/14/25 16:00 02/14/25 16:00 02/14/25 16:00 Temperature 98 F Pulse Rate 85 85 Respiratory Rate 22 H Blood Pressure 126/60 Pulse Oximetry 96 94 Oxygen Delivery Room Air Oxygen Flow Rate Fraction of Inspired Oxygen 02/14/25 18:00 02/14/25 19:10 02/14/25 20:00 Temperature 98.3 F Pulse Rate 80 81 78 Respiratory Rate 18 Blood Pressure 109/51 L Pulse Oximetry 92 Oxygen Delivery Oxygen Flow Rate Fraction of Inspired Oxygen 02/14/25 20:02 02/14/25 20:13 02/14/25 20:15 Temperature Pulse Rate 79 85 Respiratory Rate 18 18 Blood Pressure Pulse Oximetry 97 Oxygen Delivery Nasal Cannula Oxygen Flow Rate 4 Fraction of Inspired Oxygen 36 02/14/25 20:20 02/14/25 20:26 02/14/25 22:00 Temperature Pulse Rate 83 77 Respiratory Rate Blood Pressure Pulse Oximetry 95 Oxygen Delivery Nasal Cannula Oxygen Flow Rate 4 Fraction of Inspired Oxygen 02/15/25 00:00 02/15/25 00:00 02/15/25 00:25 Temperature 98.2 F Pulse Rate 75 73 Respiratory Rate 18 Blood Pressure 124/53 L Pulse Oximetry 99 95 Oxygen Delivery Nasal Cannula Oxygen Flow Rate 4 Fraction of Inspired Oxygen 02/15/25 02:00 02/15/25 02:08 02/15/25 02:17 Temperature Pulse Rate 73 75 78 Respiratory Rate 16 16 Blood Pressure Pulse Oximetry Oxygen Delivery Oxygen Flow Rate Fraction of Inspired Oxygen 02/15/25 04:00 02/15/25 04:00 02/15/25 04:30 Temperature 98.7 F Pulse Rate 81 72 Respiratory Rate 16 Blood Pressure 120/50 L Pulse Oximetry 93 94 Oxygen Delivery Nasal Cannula Oxygen Flow Rate 4 Fraction of Inspired Oxygen 02/15/25 06:00 02/15/25 08:00 02/15/25 08:00 Temperature 98.5 F Pulse Rate 80 78 Respiratory Rate 20 Blood Pressure 130/63 Pulse Oximetry 78 L 91 Oxygen Delivery Room Air Oxygen Flow Rate Fraction of Inspired Oxygen 02/15/25 08:00 02/15/25 08:38 02/15/25 08:38 Temperature Pulse Rate 74 76 Respiratory Rate 20 Blood Pressure Pulse Oximetry 91 Oxygen Delivery Room Air Oxygen Flow Rate Fraction of Inspired Oxygen 02/15/25 08:48 02/15/25 09:28 02/15/25 10:00 Temperature Pulse Rate 82 85 83 Respiratory Rate 20 Blood Pressure Pulse Oximetry Oxygen Delivery Oxygen Flow Rate Fraction of Inspired Oxygen 02/15/25 12:00 02/15/25 12:00 02/15/25 12:00 Temperature 98.3 F Pulse Rate 86 76 Respiratory Rate 16 Blood Pressure 121/59 L Pulse Oximetry 94 94 Oxygen Delivery Room Air Oxygen Flow Rate Fraction of Inspired Oxygen Intake/Output Intake/Output: Intake & Output 02/12/25 02/13/25 02/14/25 02/15/25 23:59 23:59 23:59 23:59 Intake Total 4410 2044.0 3030 2330 Output Total 1150 1625 1850 550 Balance 3260 419.0 1180 1780 Meds/Results Medications: Active Medications Generic Name Dose Route Start Last Admin Trade Name Freq PRN Reason Stop Dose Admin Acetaminophen 650 mg 02/11/25 20:54 02/15/25 12:09 Acetaminophen 325 Mg Tablet PO 650 mg Q4H PRN Administration Mild Pain (1-3) or Fever Hydrocodone Bitart/Acetaminophen 1 tab 02/11/25 20:54 02/14/25 20:34 Hydrocodone/Acetaminophen (*Crx) 5-325 Mg Tablet PO 1 tab Q4H PRN Administration Pain Rated 4-6 Albuterol/Ipratropium 3 ml 02/12/25 08:00 02/15/25 08:35 Ipratropium 0.5 Mg/Albuterol Sulfate 2.5 Mg Ampul.Neb 3 Ml INHALATION 3 ml Q6HRT ENEDELIA Administration Apixaban 5 mg 02/12/25 09:00 02/13/25 08:25 Apixaban 5 Mg Tablet PO 5 mg Q12HR ENEDELIA Administration Calcium Carbonate 200 mg 02/12/25 02:37 Calcium Carbonate (Tums) 500 Mg (200 Mg Elemental) PO QID PRN dyspepsia Calcium Carbonate 500 mg 02/14/25 12:00 02/15/25 12:08 Calcium Carbonate (Oscal) 500 Mg Tablet PO 500 mg TIDWM ENEDELIA Administration Carvedilol 25 mg 02/12/25 09:00 02/15/25 09:28 Carvedilol 25 Mg Tablet PO 25 mg Q12HR ENEDELIA Administration Clopidogrel Bisulfate 75 mg 02/12/25 09:00 02/15/25 09:29 Clopidogrel Bisulfate 75 Mg Tablet PO 75 mg QAM ENEDELIA Administration Felodipine 10 mg 02/12/25 09:00 02/15/25 09:28 Felodipine 5 Mg Tab Cr PO 10 mg QAM ENEDELIA Administration Meropenem 500 mg in 100 mls @ 200 mls/hr 02/13/25 12:30 02/15/25 09:30 IVPB 02/19/25 21:29 200 mls/hr Q12HR ENEDELIA Administration Sodium Chloride 1,000 mls @ 75 mls/hr 02/13/25 17:15 02/15/25 05:55 Normal Saline Iv IV CONT 75 mls/hr .[id number] ENEDELIA Administration Doxycycline Hyclate 100 mg in 100 mls @ 100 mls/hr 02/14/25 10:40 02/15/25 09:29 Vibramycin 100 Mg/Ns 100 Ml IVPB 02/16/25 21:59 100 mls/hr Q12HR ENEDELIA Administration Isosorbide Mononitrate 30 mg 02/12/25 09:00 02/15/25 09:28 Isosorbide Mononitrate 30 Mg Tab.Er.24h PO 30 mg DAILY ENEDELIA Administration Levothyroxine Sodium 88 mcg 02/12/25 06:30 02/15/25 05:57 Levothyroxine Sodium 88 Mcg Tablet PO 88 mcg DAILY@0630 ENEDELIA Administration Linezolid 600 mg 02/14/25 21:00 02/15/25 09:28 Linezolid 600 Mg Tablet PO 02/21/25 09:01 600 mg Q12HR ENEDELIA Administration Morphine Sulfate 2 mg 02/14/25 10:36 02/14/25 16:03 Morphine Sulfate (*Crx) 2 Mg/Ml Inj IV PUSH 2 mg Q4H PRN Administration Pain Rated 7-10 Nitroglycerin 0.4 mg 02/12/25 02:37 Nitroglycerin Sl 0.4 Mg Tablet SUBLINGUAL Q5M PRN Chest Pain Ondansetron HCl 4 mg 02/11/25 20:54 02/14/25 16:03 Ondansetron Inj 4 Mg/2 Ml Vial IV PUSH 4 mg Q4H PRN Administration Nausea Oxybutynin Chloride 15 mg 02/12/25 09:00 02/13/25 08:25 Oxybutynin Chloride Xl 5 Mg Tab.Er.24 PO 15 mg DAILY ENEDELIA Administration Pantoprazole Sodium 40 mg 02/12/25 02:55 Pantoprazole 40 Mg Tablet PO DAILY PRN acid reflux Polyethylene Glycol 119 gm 02/17/25 20:00 Polyethylene Glycol 3350 238 Gm Bottle PO 02/18/25 05:01 BID@0500,2000 ENEDELIA Promethazine HCl 12.5 mg 02/14/25 10:29 02/14/25 20:36 Promethazine Hcl 25 Mg/Ml Ampul IV PUSH 12.5 mg Q6H PRN Administration Nausea And Vomiting Ranolazine 500 mg 02/12/25 09:00 02/15/25 09:28 Ranolazine 500 Mg Tab.Er.12h PO 500 mg Q12HR ENEDELIA Administration Rosuvastatin Calcium 40 mg 02/12/25 09:00 02/15/25 09:28 Rosuvastatin 20 Mg Tablet PO 40 mg DAILY ENEDELIA Administration Umeclidinium/Vilanterol 1 puff 02/12/25 08:00 02/15/25 08:36 Umeclidinium/Vilanterol 62.5-25 Mcg Ellipta INHALATION 1 puff DAILYRT ENEDELIA Administration Radiology Results: ITS Impressions Abdomen/Pelvis CT 02/11/25 19:34 IMPRESSION: Left basilar consolidation, an interval change from prior. Findings within the colon suggesting a diarrheal illness, for which clinical correlation is needed. Chest X-Ray 02/11/25 19:58 IMPRESSION: No focal infiltrate or effusion. Venous Doppler Study 02/12/25 11:17 IMPRESSION: 1: No lower extremity deep venous thrombosis. Renal Ultrasound 02/12/25 11:18 Impression: 1: Mild right hydronephrosis. Labs Labs: Laboratory Results - last 24 hr 02/14/25 02/15/25 02/15/25 12:58 04:21 04:22 WBC 16.6 H RBC 2.68 L Hgb 8.1 L Hct 25.6 L MCV 95.5 MCH 30.2 MCHC 31.6 L RDW 19.4 H Plt Count 323 MPV 9.8 Immature Gran % (Auto) 3.5 H Neut % (Auto) 74.3 H Lymph % (Auto) 14.6 L [place] % (Auto) 7.5 Eos % (Auto) 0.0 Baso % (Auto) 0.1 L Lymph # (Auto) 2.42 [place] # (Auto) 1.2 H Eos # (Auto) 0.0 Baso # (Auto) 0.0 Abs Immat Gran (auto) 0.59 H Absolute Neuts (auto) 12.4 H Absolute Nucleated RBC 0.070 H Nucleated RBC % 0.4 H Sodium 133 L 138 Potassium 3.8 3.3 L Chloride 100 105 Carbon Dioxide 25 24 Anion Gap 8 9 BUN 44 H 39 H Creatinine 2.68 H 2.71 H Estim Creat Clear Calc 18 18 Estimated GFR 18 L 17 L Glucose 89 86 Calcium 6.1 L 6.0 L Magnesium 1.8 1.7 Iron 284 H TIBC 179 L % Saturation 159 H Ferritin 820.00 H Total Bilirubin 0.5 0.4 AST 29 26 ALT 21 20 Alkaline Phosphatase 126 116 Total Protein 6.0 L 6.0 L Albumin 2.8 L 2.4 L Vitamin D 25-Hydroxy 15.1 Quality VTE Prophylaxis VTE prophylaxis: pharmacologic ordered (Continue home Eliquis)
--- NOTE | 2025-02-15 13:32 | P.PNGI_ITS ---
Progress Note: A&P Assessment and Plan (1) Chronic iron deficiency anemia: Code(s): D50.9 - Iron deficiency anemia, unspecified Status: Acute Assessment and Plan: egd and colonoscopy Monday anemia could be multifactorial from renal disease, also use of blood thinner no overt gib (2) Nausea: Code(s): R11.0 - Nausea Status: Acute (3) Chronic anticoagulation: Code(s): Z79.01 - residential (current) use of anticoagulants Status: Acute Assessment and Plan: on hold (4) GERD (gastroesophageal reflux disease): Code(s): K21.9 - Gastro-esophageal reflux disease without esophagitis Status: Acute (5) Acute on chronic kidney failure: Qualifiers: Acute renal failure type: unspecified Chronic kidney disease stage: stage 3 (moderate) Chronic kidney disease stage 3 subtype: stage 3a (GFR 45-59) Qualified Code(s): N17.9 - Acute kidney failure, unspecified; N18.31 - Chronic kidney disease, stage 3a Code(s): N17.9 - Acute kidney failure, unspecified; N18.9 - Chronic kidney disease, unspecified Status: Acute Assessment and Plan: by nephrology (6) Pneumonia: Code(s): J18.9 - Pneumonia, unspecified organism Status: Acute Assessment and Plan: on abx Subjective Date/time seen: 02/15/25 13:32 Interval history: she was nauseous and could not tolerate bowel prep scopes postponed no overt gib Review of Systems Review of Systems: All systems reviewed & are unremarkable except as noted in HPI and below Exam Const: General: comfortable and no acute distress HENMT: Face/Nose/Sinus: Normal nares present Eyes: General: appearance normal, both eyes and all related structures Neck: Neck: supple Resp: Auscultation: clear to auscultation bilaterally Cardio: Rate: regular rate Rhythm: regular rhythm GI: Inspection: non-distended GI Palp: Yes Soft to palpation and No Tenderness to palpation present (GI) Auscultation: normal bowel sounds Skin: General skin exam: normal color Neuro: Speech: normal speech Extrem: General: pedal edema Psych: Mental Status: mental status grossly normal Objective Data Vital Signs Vital Signs: Vital Signs - 24 hr 02/14/25 14:00 02/14/25 14:13 02/14/25 14:31 Temperature Pulse Rate 80 88 81 Respiratory Rate 18 18 Blood Pressure Pulse Oximetry Oxygen Delivery Oxygen Flow Rate Fraction of Inspired Oxygen 02/14/25 16:00 02/14/25 16:00 02/14/25 16:00 Temperature 98 F Pulse Rate 85 85 Respiratory Rate 22 H Blood Pressure 126/60 Pulse Oximetry 96 94 Oxygen Delivery Room Air Oxygen Flow Rate Fraction of Inspired Oxygen 02/14/25 18:00 02/14/25 19:10 02/14/25 20:00 Temperature 98.3 F Pulse Rate 80 81 78 Respiratory Rate 18 Blood Pressure 109/51 L Pulse Oximetry 92 Oxygen Delivery Oxygen Flow Rate Fraction of Inspired Oxygen 02/14/25 20:02 02/14/25 20:13 02/14/25 20:15 Temperature Pulse Rate 79 85 Respiratory Rate 18 18 Blood Pressure Pulse Oximetry 97 Oxygen Delivery Nasal Cannula Oxygen Flow Rate 4 Fraction of Inspired Oxygen 36 02/14/25 20:20 02/14/25 20:26 02/14/25 22:00 Temperature Pulse Rate 83 77 Respiratory Rate Blood Pressure Pulse Oximetry 95 Oxygen Delivery Nasal Cannula Oxygen Flow Rate 4 Fraction of Inspired Oxygen 02/15/25 00:00 02/15/25 00:00 02/15/25 00:25 Temperature 98.2 F Pulse Rate 75 73 Respiratory Rate 18 Blood Pressure 124/53 L Pulse Oximetry 99 95 Oxygen Delivery Nasal Cannula Oxygen Flow Rate 4 Fraction of Inspired Oxygen 02/15/25 02:00 02/15/25 02:08 02/15/25 02:17 Temperature Pulse Rate 73 75 78 Respiratory Rate 16 16 Blood Pressure Pulse Oximetry Oxygen Delivery Oxygen Flow Rate Fraction of Inspired Oxygen 02/15/25 04:00 02/15/25 04:00 02/15/25 04:30 Temperature 98.7 F Pulse Rate 81 72 Respiratory Rate 16 Blood Pressure 120/50 L Pulse Oximetry 93 94 Oxygen Delivery Nasal Cannula Oxygen Flow Rate 4 Fraction of Inspired Oxygen 02/15/25 06:00 02/15/25 08:00 02/15/25 08:00 Temperature 98.5 F Pulse Rate 80 78 Respiratory Rate 20 Blood Pressure 130/63 Pulse Oximetry 78 L 91 Oxygen Delivery Room Air Oxygen Flow Rate Fraction of Inspired Oxygen 02/15/25 08:00 02/15/25 08:38 02/15/25 08:38 Temperature Pulse Rate 74 76 Respiratory Rate 20 Blood Pressure Pulse Oximetry 91 Oxygen Delivery Room Air Oxygen Flow Rate Fraction of Inspired Oxygen 02/15/25 08:48 02/15/25 09:28 02/15/25 10:00 Temperature Pulse Rate 82 85 83 Respiratory Rate 20 Blood Pressure Pulse Oximetry Oxygen Delivery Oxygen Flow Rate Fraction of Inspired Oxygen 02/15/25 12:00 02/15/25 12:00 02/15/25 12:00 Temperature 98.3 F Pulse Rate 86 76 Respiratory Rate 16 Blood Pressure 121/59 L Pulse Oximetry 94 94 Oxygen Delivery Room Air Oxygen Flow Rate Fraction of Inspired Oxygen Intake/Output Intake/Output: Intake & Output 02/12/25 02/13/25 02/14/25 02/15/25 23:59 23:59 23:59 23:59 Intake Total 4410 2044.0 3030 2330 Output Total 1150 1625 1850 550 Balance 3260 419.0 1180 1780 Meds/Results Medications: Active Medications Generic Name Dose Route Start Last Admin Trade Name Freq PRN Reason Stop Dose Admin Acetaminophen 650 mg 02/11/25 20:54 02/15/25 12:09 Acetaminophen 325 Mg Tablet PO 650 mg Q4H PRN Administration Mild Pain (1-3) or Fever Hydrocodone Bitart/Acetaminophen 1 tab 02/11/25 20:54 02/14/25 20:34 Hydrocodone/Acetaminophen (*Crx) 5-325 Mg Tablet PO 1 tab Q4H PRN Administration Pain Rated 4-6 Albuterol/Ipratropium 3 ml 02/12/25 08:00 02/15/25 08:35 Ipratropium 0.5 Mg/Albuterol Sulfate 2.5 Mg Ampul.Neb 3 Ml INHALATION 3 ml Q6HRT ENEDELIA Administration Apixaban 5 mg 02/12/25 09:00 02/13/25 08:25 Apixaban 5 Mg Tablet PO 5 mg Q12HR ENEDELIA Administration Calcium Carbonate 200 mg 02/12/25 02:37 Calcium Carbonate (Tums) 500 Mg (200 Mg Elemental) PO QID PRN dyspepsia Calcium Carbonate 500 mg 02/14/25 12:00 02/15/25 12:08 Calcium Carbonate (Oscal) 500 Mg Tablet PO 500 mg TIDWM ENEDELIA Administration Carvedilol 25 mg 02/12/25 09:00 02/15/25 09:28 Carvedilol 25 Mg Tablet PO 25 mg Q12HR ENEDELIA Administration Clopidogrel Bisulfate 75 mg 02/12/25 09:00 02/15/25 09:29 Clopidogrel Bisulfate 75 Mg Tablet PO 75 mg QAM ENEDELIA Administration Felodipine 10 mg 02/12/25 09:00 02/15/25 09:28 Felodipine 5 Mg Tab Cr PO 10 mg QAM ENEDELIA Administration Meropenem 500 mg in 100 mls @ 200 mls/hr 02/13/25 12:30 02/15/25 09:30 IVPB 02/19/25 21:29 200 mls/hr Q12HR ENEDELIA Administration Sodium Chloride 1,000 mls @ 75 mls/hr 02/13/25 17:15 02/15/25 05:55 Normal Saline Iv IV CONT 75 mls/hr .[id number] ENEDELIA Administration Doxycycline Hyclate 100 mg in 100 mls @ 100 mls/hr 02/14/25 10:40 02/15/25 09:29 Vibramycin 100 Mg/Ns 100 Ml IVPB 02/16/25 21:59 100 mls/hr Q12HR ENEDELIA Administration Isosorbide Mononitrate 30 mg 02/12/25 09:00 02/15/25 09:28 Isosorbide Mononitrate 30 Mg Tab.Er.24h PO 30 mg DAILY ENEDELIA Administration Levothyroxine Sodium 88 mcg 02/12/25 06:30 02/15/25 05:57 Levothyroxine Sodium 88 Mcg Tablet PO 88 mcg DAILY@0630 ENEDELIA Administration Linezolid 600 mg 02/14/25 21:00 02/15/25 09:28 Linezolid 600 Mg Tablet PO 02/21/25 09:01 600 mg Q12HR ENEDELIA Administration Morphine Sulfate 2 mg 02/14/25 10:36 02/14/25 16:03 Morphine Sulfate (*Crx) 2 Mg/Ml Inj IV PUSH 2 mg Q4H PRN Administration Pain Rated 7-10 Nitroglycerin 0.4 mg 02/12/25 02:37 Nitroglycerin Sl 0.4 Mg Tablet SUBLINGUAL Q5M PRN Chest Pain Ondansetron HCl 4 mg 02/11/25 20:54 02/14/25 16:03 Ondansetron Inj 4 Mg/2 Ml Vial IV PUSH 4 mg Q4H PRN Administration Nausea Oxybutynin Chloride 15 mg 02/12/25 09:00 02/13/25 08:25 Oxybutynin Chloride Xl 5 Mg Tab.Er.24 PO 15 mg DAILY ENEDELIA Administration Pantoprazole Sodium 40 mg 02/12/25 02:55 Pantoprazole 40 Mg Tablet PO DAILY PRN acid reflux Polyethylene Glycol 119 gm 02/17/25 20:00 Polyethylene Glycol 3350 238 Gm Bottle PO 02/18/25 05:01 BID@0500,2000 ENEDELIA Promethazine HCl 12.5 mg 02/14/25 10:29 02/14/25 20:36 Promethazine Hcl 25 Mg/Ml Ampul IV PUSH 12.5 mg Q6H PRN Administration Nausea And Vomiting Ranolazine 500 mg 02/12/25 09:00 02/15/25 09:28 Ranolazine 500 Mg Tab.Er.12h PO 500 mg Q12HR ENEDELIA Administration Rosuvastatin Calcium 40 mg 02/12/25 09:00 02/15/25 09:28 Rosuvastatin 20 Mg Tablet PO 40 mg DAILY ENEDELIA Administration Umeclidinium/Vilanterol 1 puff 02/12/25 08:00 02/15/25 08:36 Umeclidinium/Vilanterol 62.5-25 Mcg Ellipta INHALATION 1 puff DAILYRT ENEDELIA Administration Radiology Results: ITS Impressions Abdomen/Pelvis CT 02/11/25 19:34 IMPRESSION: Left basilar consolidation, an interval change from prior. Findings within the colon suggesting a diarrheal illness, for which clinical correlation is needed. Chest X-Ray 02/11/25 19:58 IMPRESSION: No focal infiltrate or effusion. Venous Doppler Study 02/12/25 11:17 IMPRESSION: 1: No lower extremity deep venous thrombosis. Renal Ultrasound 02/12/25 11:18 Impression: 1: Mild right hydronephrosis. Labs Labs: Laboratory Results - last 24 hr 02/15/25 02/15/25 04:21 04:22 WBC 16.6 H RBC 2.68 L Hgb 8.1 L Hct 25.6 L MCV 95.5 MCH 30.2 MCHC 31.6 L RDW 19.4 H Plt Count 323 MPV 9.8 Immature Gran % (Auto) 3.5 H Neut % (Auto) 74.3 H Lymph % (Auto) 14.6 L Daniels % (Auto) 7.5 Eos % (Auto) 0.0 Baso % (Auto) 0.1 L Lymph # (Auto) 2.42 Daniels # (Auto) 1.2 H Eos # (Auto) 0.0 Baso # (Auto) 0.0 Abs Immat Gran (auto) 0.59 H Absolute Neuts (auto) 12.4 H Absolute Nucleated RBC 0.070 H Nucleated RBC % 0.4 H Sodium 138 Potassium 3.3 L Chloride 105 Carbon Dioxide 24 Anion Gap 9 BUN 39 H Creatinine 2.71 H Estim Creat Clear Calc 18 Estimated GFR 17 L Glucose 86 Calcium 6.0 L Magnesium 1.7 Iron 284 H TIBC 179 L % Saturation 159 H Ferritin 820.00 H Total Bilirubin 0.4 AST 26 ALT 20 Alkaline Phosphatase 116 Total Protein 6.0 L Albumin 2.4 L Vitamin D 25-Hydroxy 15.1
[2025-02-15] MEDS: HYDROcodone/acetaminophen (*CRX) 5-325 MG TABLET 1 TAB PO (21:59)
[2025-02-16] VITALS (26 sets, daily range): BP systolic 107–133; BP diastolic 50–57; PULSE 60–82; RESP 14–20; TEMP 36.6–37.2; O2SAT 91–100
[2025-02-16] MEDS: IPRATROPIUM 0.5 MG/ALBUTEROL SULFATE 2.5 MG AMPUL.NEB 3 ML INHALATION ×4 (02:09→20:16)
[2025-02-16] MEDS: SODIUM CHLORIDE 0.9% IV 1,000 ML 75 ML IV CONT ×2 (03:30→18:25)
[2025-02-16 04:55] LABS: Basophils Percent Auto 0.2 % (0.2-1.2); Eosinophils Percent Auto 0.1 % (0-4.4); Hematocrit 26.2 % (37.0-47.0); Hemoglobin 8.4 g/dL (12.0-15.0); Immature Granulocyte Percent A 4.1 % (0-0.5); Lymphocytes Absolute Auto 3.23 K/mm3 (0.9-3.2); Lymphocytes Percent Auto 22.2 % (18.3-44.2); Mean Corpuscular HGB Conc 32.1 g/dl (32-36); Mean Corpuscular Hemoglobin 30.4 pg (26-34); Mean Corpuscular Volume 94.9 fl (80-100); Mean Platelet Volume 9.6 fl (7.4-10.4); Monocytes Absolute Auto 1.3 K/mm3 (0.1-0.6); Neutrophils Absolute Auto 9.4 K/mm3 (1.3-6.7); Neutrophils Percent Auto 64.4 % (45.5-73.1); Nucleated Red Blood Cells Perc 0.3 % (0.0-0.2); Platelet Count Result 322 k/mm3 (150-375); Red Blood Count 2.76 M/mm3 (4.2-5.4); Red Cell Distribution Width 19.2 % (11.5-14.5); White Blood Count 14.5 K/mm3 (4.5-10.0)
[2025-02-16 05:09] LABS: Alanine Aminotransferase 22 U/L (6-35); Albumin Level 2.4 g/dL (3.5-5.1); Alkaline Phosphatase 114 U/L (38-126); Anion Gap 10 mmol/L (4-12); Aspartate Amino Transferase 30 U/L (14-36); Bilirubin,Total 0.3 mg/dL (0.2-1.3); Blood Urea Nitrogen 32 mg/dL (7-17); Calcium 7.1 mg/dL (8.4-10.2); Carbon Dioxide 23 mmol/L (22-30); Chloride 104 mmol/L (98-107); Estimated CRCL calculation 21 ml/min; Estimated Glomerular Filt Rate 21; Glucose 77 mg/dL (65-110); Magnesium 1.5 mg/dL (1.6-2.3); Potassium 3.3 mmol/L (3.4-5.0); Sodium 137 mmol/L (137-145)
[2025-02-16] MEDS: LEVOTHYROXINE SODIUM 88 MCG TABLET PO (06:27)
[2025-02-16] MEDS: ROSUVASTATIN 20 MG TABLET 40 MG PO (09:12)
[2025-02-16] MEDS: ISOSORBIDE MONONITRATE 30 MG TAB.ER.24H PO (09:12)
[2025-02-16] MEDS: LINEZOLID 600 MG TABLET PO ×2 (09:12→20:53)
[2025-02-16] MEDS: FELODIPINE 5 MG TAB CR 10 MG PO (09:12)
[2025-02-16] MEDS: carvediloL 25 MG TABLET PO ×2 (09:12→20:53)
[2025-02-16] MEDS: CLOPIDOGREL BISULFATE 75 MG TABLET PO (09:12)
[2025-02-16] MEDS: CALCIUM CARBONATE (OSCAL) 500 MG TABLET PO ×3 (09:12→17:22)
[2025-02-16] MEDS: RANOLAZINE 500 MG TAB.ER.12H PO ×2 (09:12→20:53)
[2025-02-16] MEDS: DOXYCYCLINE 100 MG/NS 100 ML 100 MG/100 ML BAG IVPB ×2 (09:13→20:59)
[2025-02-16] MEDS: MEROPENEM 500 MG/NS 100 ML 500 MG/100 ML BAG 200 MG IVPB ×2 (09:13→20:58)
[2025-02-16] MEDS: MAGNESIUM SULF 1 GM/D5W 100 ML 1 GM/100 ML BAG IVPB (11:09)
--- NOTE | 2025-02-16 11:37 | P.PNNP_ITS ---
Progress Note: A&P Assessment and Plan (1) Acute kidney injury: Code(s): N17.9 - Acute kidney failure, unspecified Status: Acute Assessment and Plan: * improving * as evidenced by admission labs * multifactorial etiology: * prerenal factors (diarrhea) * urinary retention * early sepsis/infection (UTI + pneumonia) * evaluation to date noted: * renal u/s with mild right hydronephrosis * urology following. they see as an outpatient * bladder scan with evidence of urinary retention * urine electrolytes non prerenal * urine eosinophils negative * CPK normal * UA suggestive of infection * proteinuria noted * calles in place now * urine still dark red * on doxy, linezolid, and meropenem * continue IVFs for now * creatinine continues to improve (2) Chronic kidney disease, stage 3: Qualifiers: Chronic kidney disease stage 3 subtype: stage 3a (GFR 45-59) Qualified Code(s): N18.31 - Chronic kidney disease, stage 3a Code(s): N18.30 - Chronic kidney disease, stage 3 unspecified Status: Chronic Assessment and Plan: * baseline creatinine runs around 1.4 - 1.9mg/dl in the last few years * however, has been as low as 0.9 - 1.1mg/dl * secondary to 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 (3) Anemia: Code(s): D64.9 - Anemia, unspecified Status: Acute Assessment and Plan: * noted drop in H/H by AM labs (02/13) * PRBC transfusion per protocol * anemia studies with iron deficiency * complicated by recent start of Eliquis for PE (on hold currently) * GI following - planning EGD/colonoscopy * hb up a little bit more. * no iron due to current infection (4) Urinary tract infection: Code(s): N39.0 - Urinary tract infection, site not specified Status: Acute Assessment and Plan: * admission UA highly suggestive * on three antibiotics as above * urine culture with E.coli and VRE (5) Pneumonia: Code(s): J18.9 - Pneumonia, unspecified organism Status: Acute Assessment and Plan: * as suggested by admission imaging * blood cxs NGTD * on antibiotics (6) Metabolic acidosis: Code(s): E87.20 - Acidosis, unspecified Status: Acute Assessment and Plan: * resolved (7) Bilateral lower extremity edema: Code(s): R60.0 - Localized edema Status: Acute Assessment and Plan: * noted on admission * related to JOSR/ARF(?) * possible venous insufficiency/circulation issues (has known PAD) * venous dopplers negative for DVT * related to proteinuria(?) * follow clinical exam (8) Acute urinary retention: Code(s): R33.8 - Other retention of urine Status: Acute Assessment and Plan: * as noted by renal ultrasound and bladders scans * calles catheter in place * Urology recommendations noted * sees Dr Juarez as an outpatient as well. (9) Acute diarrhea: Code(s): R19.7 - Diarrhea, unspecified Status: Acute Assessment and Plan: * as noted by admission history * however, no episodes while hospitalized * CT A/P results noted * on immodium (10) Essential hypertension: Code(s): I10 - Essential (primary) hypertension Status: Chronic Assessment and Plan: * systolic 100 to 131 * no change in blood pressure medicine needs Subjective Date/time seen: 02/16/25 11:37 Interval history: patient is alert. She feels better. Exam Narrative: General: elderly (appears older than stated age) WD/WN female in NAD Neuro: A+Ox3 Psyche: not anxious nor distressed Skin: no rash Objective Data Vital Signs Vital Signs: Vital Signs - 24 hr 02/15/25 12:00 02/15/25 12:00 02/15/25 12:00 Temperature 98.3 F Pulse Rate 86 76 Respiratory Rate 16 Blood Pressure 121/59 L Pulse Oximetry 94 94 Oxygen Delivery Room Air 02/15/25 13:43 02/15/25 13:52 02/15/25 14:00 Temperature Pulse Rate 80 82 78 Respiratory Rate 20 20 Blood Pressure Pulse Oximetry Oxygen Delivery 02/15/25 15:43 02/15/25 15:48 02/15/25 16:00 Temperature 98.8 F Pulse Rate 80 Respiratory Rate 14 Blood Pressure 101/49 L 100/45 L Pulse Oximetry 91 94 Oxygen Delivery Room Air 02/15/25 16:00 02/15/25 18:00 02/15/25 20:00 Temperature 98.4 F Pulse Rate 78 80 78 Respiratory Rate 18 Blood Pressure 107/51 L Pulse Oximetry 100 Oxygen Delivery 02/15/25 20:00 02/15/25 20:22 02/15/25 20:23 Temperature Pulse Rate 77 77 Respiratory Rate 18 Blood Pressure Pulse Oximetry 92 Oxygen Delivery Room Air 02/15/25 20:33 02/15/25 21:50 02/15/25 21:59 Temperature Pulse Rate 79 80 Respiratory Rate 18 Blood Pressure Pulse Oximetry Oxygen Delivery Room Air 02/15/25 22:00 02/16/25 00:00 02/16/25 00:00 Temperature 98.0 F Pulse Rate 80 75 74 Respiratory Rate 18 Blood Pressure 107/50 L Pulse Oximetry 100 Oxygen Delivery 02/16/25 00:00 02/16/25 02:00 02/16/25 02:10 Temperature Pulse Rate 70 72 Respiratory Rate 18 Blood Pressure Pulse Oximetry Oxygen Delivery Room Air 02/16/25 02:20 02/16/25 04:00 02/16/25 04:00 Temperature 98.2 F Pulse Rate 73 72 60 Respiratory Rate 18 18 Blood Pressure 110/54 L Pulse Oximetry 100 Oxygen Delivery 02/16/25 04:20 02/16/25 06:00 02/16/25 08:00 Temperature 98.2 F Pulse Rate 70 75 Respiratory Rate 14 Blood Pressure 131/57 L Pulse Oximetry 94 Oxygen Delivery Room Air 02/16/25 08:00 02/16/25 09:12 02/16/25 09:27 Temperature Pulse Rate 76 Respiratory Rate Blood Pressure Pulse Oximetry 94 92 Oxygen Delivery Room Air Room Air 02/16/25 09:27 02/16/25 09:37 Temperature Pulse Rate 77 74 Respiratory Rate 20 20 Blood Pressure Pulse Oximetry Oxygen Delivery Intake/Output Intake/Output: Intake & Output 02/13/25 02/14/25 02/15/25 02/16/25 23:59 23:59 23:59 23:59 Intake Total 2044.0 3030 3140 1680 Output Total 1625 1850 1000 400 Balance 419.0 1180 2140 1280 Meds/Results Medications: Active Medications Generic Name Dose Route Start Last Admin Trade Name Freq PRN Reason Stop Dose Admin Acetaminophen 650 mg 02/11/25 20:54 02/15/25 12:09 Acetaminophen 325 Mg Tablet PO 650 mg Q4H PRN Administration Mild Pain (1-3) or Fever Hydrocodone Bitart/Acetaminophen 1 tab 02/11/25 20:54 02/15/25 21:59 Hydrocodone/Acetaminophen (*Crx) 5-325 Mg Tablet PO 1 tab Q4H PRN Administration Pain Rated 4-6 Albuterol/Ipratropium 3 ml 02/12/25 08:00 02/16/25 09:27 Ipratropium 0.5 Mg/Albuterol Sulfate 2.5 Mg Ampul.Neb 3 Ml INHALATION 3 ml Q6HRT ENEDELIA Administration Apixaban 5 mg 02/12/25 09:00 02/13/25 08:25 Apixaban 5 Mg Tablet PO 5 mg Q12HR ENEDELIA Administration Calcium Carbonate 200 mg 02/12/25 02:37 Calcium Carbonate (Tums) 500 Mg (200 Mg Elemental) PO QID PRN dyspepsia Calcium Carbonate 500 mg 02/14/25 12:00 02/16/25 09:12 Calcium Carbonate (Oscal) 500 Mg Tablet PO 500 mg TIDWM ENEDELIA Administration Carvedilol 25 mg 02/12/25 09:00 02/16/25 09:12 Carvedilol 25 Mg Tablet PO 25 mg Q12HR ENEDELIA Administration Clopidogrel Bisulfate 75 mg 02/12/25 09:00 02/16/25 09:12 Clopidogrel Bisulfate 75 Mg Tablet PO 75 mg QAM ENEDELIA Administration Felodipine 10 mg 02/12/25 09:00 02/16/25 09:12 Felodipine 5 Mg Tab Cr PO 10 mg QAM ENEDELIA Administration Meropenem 500 mg in 100 mls @ 200 mls/hr 02/13/25 12:30 02/16/25 09:13 IVPB 02/19/25 21:29 200 mls/hr Q12HR ENEDELIA Administration Sodium Chloride 1,000 mls @ 75 mls/hr 02/13/25 17:15 02/16/25 03:30 Normal Saline Iv IV CONT 75 mls/hr .[id number] ENEDELIA Administration Doxycycline Hyclate 100 mg in 100 mls @ 100 mls/hr 02/14/25 10:40 02/16/25 09:13 Vibramycin 100 Mg/Ns 100 Ml IVPB 02/16/25 21:59 100 mls/hr Q12HR ENEDELIA Administration Isosorbide Mononitrate 30 mg 02/12/25 09:00 02/16/25 09:12 Isosorbide Mononitrate 30 Mg Tab.Er.24h PO 30 mg DAILY ENEDELIA Administration Levothyroxine Sodium 88 mcg 02/12/25 06:30 02/16/25 06:27 Levothyroxine Sodium 88 Mcg Tablet PO 88 mcg DAILY@0630 [facility] Administration Linezolid 600 mg 02/14/25 21:00 02/16/25 09:12 Linezolid 600 Mg Tablet PO 02/21/25 09:01 600 mg Q12HR [facility] Administration Morphine Sulfate 2 mg 02/14/25 10:36 02/14/25 16:03 Morphine Sulfate (*Crx) 2 Mg/Ml Inj IV PUSH 2 mg Q4H PRN Administration Pain Rated 7-10 Nitroglycerin 0.4 mg 02/12/25 02:37 Nitroglycerin Sl 0.4 Mg Tablet SUBLINGUAL Q5M PRN Chest Pain Ondansetron HCl 4 mg 02/11/25 20:54 02/14/25 16:03 Ondansetron Inj 4 Mg/2 Ml Vial IV PUSH 4 mg Q4H PRN Administration Nausea Oxybutynin Chloride 15 mg 02/12/25 09:00 02/13/25 08:25 Oxybutynin Chloride Xl 5 Mg Tab.Er.24 PO 15 mg DAILY [facility] Administration Pantoprazole Sodium 40 mg 02/12/25 02:55 Pantoprazole 40 Mg Tablet PO DAILY PRN acid reflux Polyethylene Glycol 119 gm 02/17/25 20:00 Polyethylene Glycol 3350 238 Gm Bottle PO 02/18/25 05:01 BID@0500,2000 [facility] Promethazine HCl 12.5 mg 02/14/25 10:29 02/14/25 20:36 Promethazine Hcl 25 Mg/Ml Ampul IV PUSH 12.5 mg Q6H PRN Administration Nausea And Vomiting Ranolazine 500 mg 02/12/25 09:00 02/16/25 09:12 Ranolazine 500 Mg Tab.Er.12h PO 500 mg Q12HR [facility] Administration Rosuvastatin Calcium 40 mg 02/12/25 09:00 02/16/25 09:12 Rosuvastatin 20 Mg Tablet PO 40 mg DAILY [facility] Administration Umeclidinium/Vilanterol 1 puff 02/12/25 08:00 02/15/25 08:36 Umeclidinium/Vilanterol 62.5-25 Mcg Ellipta INHALATION 1 puff DAILYRT ENEDELIA Administration Radiology Results: ITS Impressions Abdomen/Pelvis CT 02/11/25 19:34 IMPRESSION: Left basilar consolidation, an interval change from prior. Findings within the colon suggesting a diarrheal illness, for which clinical correlation is needed. Chest X-Ray 02/11/25 19:58 IMPRESSION: No focal infiltrate or effusion. Venous Doppler Study 02/12/25 11:17 IMPRESSION: 1: No lower extremity deep venous thrombosis. Renal Ultrasound 02/12/25 11:18 Impression: 1: Mild right hydronephrosis. Labs Labs: Laboratory Results - last 24 hr 02/16/25 04:39 WBC 14.5 H RBC 2.76 L Hgb 8.4 L Hct 26.2 L MCV 94.9 MCH 30.4 MCHC 32.1 RDW 19.2 H Plt Count 322 MPV 9.6 Immature Gran % (Auto) 4.1 H Neut % (Auto) 64.4 Lymph % (Auto) 22.2 [place] % (Auto) 9.0 H Eos % (Auto) 0.1 Baso % (Auto) 0.2 Lymph # (Auto) 3.23 H Gladwin # (Auto) 1.3 H Eos # (Auto) 0.0 Baso # (Auto) 0.0 Abs Immat Gran (auto) 0.60 H Absolute Neuts (auto) 9.4 H Absolute Nucleated RBC 0.050 H Nucleated RBC % 0.3 H Sodium 137 Potassium 3.3 L Chloride 104 Carbon Dioxide 23 Anion Gap 10 BUN 32 H Creatinine 2.33 H Estim Creat Clear Calc 21 Estimated GFR 21 L Glucose 77 Calcium 7.1 L Phosphorus 4.0 Magnesium 1.5 L Total Bilirubin 0.3 AST 30 ALT 22 Alkaline Phosphatase 114 Total Protein 6.0 L Albumin 2.4 L
--- NOTE | 2025-02-16 13:23 | P.PNGI_ITS ---
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 Status: Acute Assessment and Plan: on hold (4) GERD (gastroesophageal reflux disease): Code(s): K21.9 - Gastro-esophageal reflux disease without esophagitis Status: Acute Assessment and Plan: egd in am (5) Acute on chronic kidney failure: Qualifiers: Acute renal failure type: unspecified Chronic kidney disease stage: sta ge 3 (moderate) Chronic kidney disease stage 3 subtype: stage 3a (GFR 45-59) Qualified Code(s): N17.9 - Acute kidney failure, unspecified; N18.31 - Chronic kidney disease, stage 3a Code(s): N17.9 - Acute kidney failure, unspecified; N18.9 - Chronic kidney disease, unspecified Status: Acute Assessment and Plan: by nephrology (6) Pneumonia: Code(s): J18.9 - Pneumonia, unspecified organism Status: Acute Assessment and Plan: on abx Subjective Date/time seen: 02/16/25 13:23 Interval history: no more nausea no gib Review of Systems Review of Systems: All systems reviewed & are unremarkable except as noted in HPI and below Exam Const: General: comfortable and no acute distress HENMT: Face/Nose/Sinus: Normal nares present Eyes: General: appearance normal, both eyes and all related structures Neck: Neck: supple Resp: Auscultation: clear to auscultation bilaterally Cardio: Rate: regular rate Rhythm: regular rhythm GI: Inspection: non-distended GI Palp: Yes Soft to palpation and No Tenderness to palpation present (GI) Auscultation: normal bowel sounds Skin: General skin exam: normal color Neuro: Speech: normal speech Extrem: General: pedal edema Psych: Mental Status: mental status grossly normal Objective Data Vital Signs Vital Signs: Vital Signs - 24 hr 02/15/25 13:43 02/15/25 13:52 02/15/25 14:00 Temperature Pulse Rate 80 82 78 Respiratory Rate 20 20 Blood Pressure Pulse Oximetry Oxygen Delivery 02/15/25 15:43 02/15/25 15:48 02/15/25 16:00 Temperature 98.8 F Pulse Rate 80 Respiratory Rate 14 Blood Pressure 101/49 L 100/45 L Pulse Oximetry 91 94 Oxygen Delivery Room Air 02/15/25 16:00 02/15/25 18:00 02/15/25 20:00 Temperature 98.4 F Pulse Rate 78 80 78 Respiratory Rate 18 Blood Pressure 107/51 L Pulse Oximetry 100 Oxygen Delivery 02/15/25 20:00 02/15/25 20:22 02/15/25 20:23 Temperature Pulse Rate 77 77 Respiratory Rate 18 Blood Pressure Pulse Oximetry 92 Oxygen Delivery Room Air 02/15/25 20:33 02/15/25 21:50 02/15/25 21:59 Temperature Pulse Rate 79 80 Respiratory Rate 18 Blood Pressure Pulse Oximetry Oxygen Delivery Room Air 02/15/25 22:00 02/16/25 00:00 02/16/25 00:00 Temperature 98.0 F Pulse Rate 80 75 74 Respiratory Rate 18 Blood Pressure 107/50 L Pulse Oximetry 100 Oxygen Delivery 02/16/25 00:00 02/16/25 02:00 02/16/25 02:10 Temperature Pulse Rate 70 72 Respiratory Rate 18 Blood Pressure Pulse Oximetry Oxygen Delivery Room Air 02/16/25 02:20 02/16/25 04:00 02/16/25 04:00 Temperature 98.2 F Pulse Rate 73 72 60 Respiratory Rate 18 18 Blood Pressure 110/54 L Pulse Oximetry 100 Oxygen Delivery 02/16/25 04:20 02/16/25 06:00 02/16/25 08:00 Temperature 98.2 F Pulse Rate 70 75 Respiratory Rate 14 Blood Pressure 131/57 L Pulse Oximetry 94 Oxygen Delivery Room Air 02/16/25 08:00 02/16/25 09:12 02/16/25 09:27 Temperature Pulse Rate 76 Respiratory Rate Blood Pressure Pulse Oximetry 94 92 Oxygen Delivery Room Air Room Air 02/16/25 09:27 02/16/25 09:37 02/16/25 11:52 Temperature 98.9 F Pulse Rate 77 74 76 Respiratory Rate 20 20 16 Blood Pressure 107/53 L Pulse Oximetry 93 Oxygen Delivery 02/16/25 12:00 Temperature Pulse Rate Respiratory Rate Blood Pressure Pulse Oximetry 93 Oxygen Delivery Room Air Intake/Output Intake/Output: Intake & Output 02/13/25 02/14/25 02/15/25 02/16/25 23:59 23:59 23:59 23:59 Intake Total 2044.0 3030 3140 2040 Output Total 1625 1850 1000 400 Balance 419.0 1180 2140 1640 Meds/Results Medications: Active Medications Generic Name Dose Route Start Last Admin Trade Name Freq PRN Reason Stop Dose Admin Acetaminophen 650 mg 02/11/25 20:54 02/15/25 12:09 Acetaminophen 325 Mg Tablet PO 650 mg Q4H PRN Administration Mild Pain (1-3) or Fever Hydrocodone Bitart/Acetaminophen 1 tab 02/11/25 20:54 02/15/25 21:59 Hydrocodone/Acetaminophen (*Crx) 5-325 Mg Tablet PO 1 tab Q4H PRN Administration Pain Rated 4-6 Albuterol/Ipratropium 3 ml 02/12/25 08:00 02/16/25 09:27 Ipratropium 0.5 Mg/Albuterol Sulfate 2.5 Mg Ampul.Neb 3 Ml INHALATION 3 ml Q6HRT ENEDELIA Administration Apixaban 5 mg 02/12/25 09:00 02/13/25 08:25 Apixaban 5 Mg Tablet PO 5 mg Q12HR ENEDELIA Administration Calcium Carbonate 200 mg 02/12/25 02:37 Calcium Carbonate (Tums) 500 Mg (200 Mg Elemental) PO QID PRN dyspepsia Calcium Carbonate 500 mg 02/14/25 12:00 02/16/25 12:45 Calcium Carbonate (Oscal) 500 Mg Tablet PO 500 mg TIDWM ENEDELIA Administration Carvedilol 25 mg 02/12/25 09:00 02/16/25 09:12 Carvedilol 25 Mg Tablet PO 25 mg Q12HR ENEDELIA Administration Clopidogrel Bisulfate 75 mg 02/12/25 09:00 02/16/25 09:12 Clopidogrel Bisulfate 75 Mg Tablet PO 75 mg QAM ENEDELIA Administration Felodipine 10 mg 02/12/25 09:00 02/16/25 09:12 Felodipine 5 Mg Tab Cr PO 10 mg QAM ENEDELIA Administration Meropenem 500 mg in 100 mls @ 200 mls/hr 02/13/25 12:30 02/16/25 09:13 IVPB 02/19/25 21:29 200 mls/hr Q12HR ENEDELIA Administration Sodium Chloride 1,000 mls @ 75 mls/hr 02/13/25 17:15 02/16/25 03:30 Normal Saline Iv IV CONT 75 mls/hr .[id number] ENEDELIA Administration Doxycycline Hyclate 100 mg in 100 mls @ 100 mls/hr 02/14/25 10:40 02/16/25 09:13 Vibramycin 100 Mg/Ns 100 Ml IVPB 02/16/25 21:59 100 mls/hr Q12HR ENEDELIA Administration Isosorbide Mononitrate 30 mg 02/12/25 09:00 02/16/25 09:12 Isosorbide Mononitrate 30 Mg Tab.Er.24h PO 30 mg DAILY ENEDELIA Administration Levothyroxine Sodium 88 mcg 02/12/25 06:30 02/16/25 06:27 Levothyroxine Sodium 88 Mcg Tablet PO 88 mcg DAILY@0630 ENEDELIA Administration Linezolid 600 mg 02/14/25 21:00 02/16/25 09:12 Linezolid 600 Mg Tablet PO 02/21/25 09:01 600 mg Q12HR ENEDELIA Administration Morphine Sulfate 2 mg 02/14/25 10:36 02/14/25 16:03 Morphine Sulfate (*Crx) 2 Mg/Ml Inj IV PUSH 2 mg Q4H PRN Administration Pain Rated 7-10 Nitroglycerin 0.4 mg 02/12/25 02:37 Nitroglycerin Sl 0.4 Mg Tablet SUBLINGUAL Q5M PRN Chest Pain Ondansetron HCl 4 mg 02/11/25 20:54 02/14/25 16:03 Ondansetron Inj 4 Mg/2 Ml Vial IV PUSH 4 mg Q4H PRN Administration Nausea Oxybutynin Chloride 15 mg 02/12/25 09:00 02/13/25 08:25 Oxybutynin Chloride Xl 5 Mg Tab.Er.24 PO 15 mg DAILY ENEDELIA Administration Pantoprazole Sodium 40 mg 02/12/25 02:55 Pantoprazole 40 Mg Tablet PO DAILY PRN acid reflux Promethazine HCl 12.5 mg 02/14/25 10:29 02/14/25 20:36 Promethazine Hcl 25 Mg/Ml Ampul IV PUSH 12.5 mg Q6H PRN Administration Nausea And Vomiting Ranolazine 500 mg 02/12/25 09:00 02/16/25 09:12 Ranolazine 500 Mg Tab.Er.12h PO 500 mg Q12HR ENEDELIA Administration Rosuvastatin Calcium 40 mg 02/12/25 09:00 02/16/25 09:12 Rosuvastatin 20 Mg Tablet PO 40 mg DAILY ENEDELIA Administration Umeclidinium/Vilanterol 1 puff 02/12/25 08:00 02/15/25 08:36 Umeclidinium/Vilanterol 62.5-25 Mcg Ellipta INHALATION 1 puff DAILYRT ENEDELIA Administration Radiology Results: ITS Impressions Abdomen/Pelvis CT 02/11/25 19:34 IMPRESSION: Left basilar consolidation, an interval change from prior. Findings within the colon suggesting a diarrheal illness, for which clinical correlation is needed. Chest X-Ray 02/11/25 19:58 IMPRESSION: No focal infiltrate or effusion. Venous Doppler Study 02/12/25 11:17 IMPRESSION: 1: No lower extremity deep venous thrombosis. Renal Ultrasound 02/12/25 11:18 Impression: 1: Mild right hydronephrosis. Labs Labs: Laboratory Results - last 24 hr 02/16/25 04:39 WBC 14.5 H RBC 2.76 L Hgb 8.4 L Hct 26.2 L MCV 94.9 MCH 30.4 MCHC 32.1 RDW 19.2 H Plt Count 322 MPV 9.6 Immature Gran % (Auto) 4.1 H Neut % (Auto) 64.4 Lymph % (Auto) 22.2 [place] % (Auto) 9.0 H Eos % (Auto) 0.1 Baso % (Auto) 0.2 Lymph # (Auto) 3.23 H [place] # (Auto) 1.3 H Eos # (Auto) 0.0 Baso # (Auto) 0.0 Abs Immat Gran (auto) 0.60 H Absolute Neuts (auto) 9.4 H Absolute Nucleated RBC 0.050 H Nucleated RBC % 0.3 H Sodium 137 Potassium 3.3 L Chloride 104 Carbon Dioxide 23 Anion Gap 10 BUN 32 H Creatinine 2.33 H Estim Creat Clear Calc 21 Estimated GFR 21 L Glucose 77 Calcium 7.1 L Phosphorus 4.0 Magnesium 1.5 L Total Bilirubin 0.3 AST 30 ALT 22 Alkaline Phosphatase 114 Total Protein 6.0 L Albumin 2.4 L
[2025-02-16] MEDS: UMECLIDINIUM/VILANTEROL 62.5-25 MCG ELLIPTA 1 PUFF INHALATION (15:00)
--- NOTE | 2025-02-16 15:13 | PM.IMPN ---
Progress Note: A&P Assessment and Plan (1) Sepsis: Qualifiers: Acute renal failure type: unspecified Sepsis acute organ dysfunction status: with acute organ dysfunction Sepsis type: sepsis due to unspecified organism Severe sepsis acute organ dysfunction type: acute renal failure Severe sepsis shock status: without septic shock Qualified Code(s): A41.9 - Sepsis, unspecified organism; R65.20 - Severe sepsis without septic shock; N17.9 - Acute kidney failure, unspecified Code(s): A41.9 - Sepsis, unspecified organism Status: Acute (2) Diarrhea: Qualifiers: Diarrhea type: infectious Qualified Code(s): A09 - Infectious gastroenteritis and colitis, unspecified Code(s): R19.7 - Diarrhea, unspecified Status: Acute (3) Acute respiratory failure with hypoxia: Code(s): J96.01 - Acute respiratory failure with hypoxia Status: Acute (4) Acute UTI: Code(s): N39.0 - Urinary tract infection, site not specified Status: Acute (5) Acute kidney injury: Code(s): N17.9 - Acute kidney failure, unspecified Status: Acute (6) Chronic kidney disease, stage 3: Qualifiers: Chronic kidney disease stage 3 subtype: stage 3a (GFR 45-59) Qualified Code(s): N18.31 - Chronic kidney disease, stage 3a Code(s): N18.30 - Chronic kidney disease, stage 3 unspecified Status: Chronic (7) Chronic anticoagulation: Code(s): 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 Status: Acute Plan Sepsis From pneumonia and diarrhea CT AP showed diarrhea disease and LLL Pneumonia Blood cultures Continue Meropenem, Doxy and Linezolid , IVF monitor Pneumonia LLL pneumonia per CT AP WBC 14.5 from 29.4 Continue above care Diarrhea No inflammation per CT Patient noted much improvement, however, of noted she has been on imodium since onset and thus has likely arrested the diarrhea continue above care and IVF JOSR Cr 2.53 from 6.19 From dehydration Continue IVF Iron deficiency anemia r/o GI bleed hb 8.1 down from 9, s/p 1 unit Isat 10, Venofer 1000/1000 FOBT ordered Patient had a recent PE last month and was started on Eliquis For Endoscopy Monday GI following UTI urine culture positive for E coli and VRE Day 3/7 Meropenem and Day 2/7 Linezolid monitor PE Eliquis on hold due to GI bleed Venous doppler negative for DVT HTN titrate home meds with clinical course PAD s/p stent continue Home meds JANNY on CPAP Mild right hydronephrosis US reviewed Follow up with Urology outpatient DVT prophylaxis Eliquis on hold due to GI bleed Subjective Date/time seen: 02/16/25 15:13 Interval history: Comfortable at bedside Review of Systems Review of Systems: 12 systems were reviewed with pertinent positives and negatives per HPI. Except as documented in the HPI, all other systems were reviewed and are negative. Exam Narrative: Weight 71.4 kg BMI 27.9 Const: Other: Acutely ill-appearing, appears older than stated age, height weight proportionate HENMT: Other: Mucous membranes are dry, edentulous in upper and lower jaw, head is normocephalic atraumatic Eyes: Other: Positive conjunctival pallor, no scleral icterus, pupils are equal and reactive with evidence of bilateral lens replacements Neck: Other: No JVD, no lymphadenopathy Resp: Other: Clear to auscultation bilaterally, no increased work of breathing Cardio: Other: Regular rate, regular rhythm, 2+ bilateral radial and pedal pulses, no murmur GI: Other: Soft, nontender, nondistended, positive bowel sounds, no organomegaly : Other: Depends in place Skin: Other: Jaundice, underlying pallor, bruising to the tops of the feet bilaterally, skin of the lower extremities is tight and shiny Neuro: Other: Alert orient x4, speech is clear, no facial asymmetry Extrem: Other: Marked edema bilateral lower extremities which is symmetrical, bruising to the dorsum of the feet bilaterally on the right side more to the toes on the left 8 just proximal to the toes, patient moves all extremities equally, 5/5 integrity director strength bilateral Objective Data Vital Signs Vital Signs: Vital Signs - 24 hr 02/15/25 15:43 02/15/25 15:48 02/15/25 16:00 Temperature 98.8 F Pulse Rate 80 Respiratory Rate 14 Blood Pressure 101/49 L 100/45 L Pulse Oximetry 91 94 Oxygen Delivery Room Air 02/15/25 16:00 02/15/25 18:00 02/15/25 20:00 Temperature 98.4 F Pulse Rate 78 80 78 Respiratory Rate 18 Blood Pressure 107/51 L Pulse Oximetry 100 Oxygen Delivery 02/15/25 20:00 02/15/25 20:22 02/15/25 20:23 Temperature Pulse Rate 77 77 Respiratory Rate 18 Blood Pressure Pulse Oximetry 92 Oxygen Delivery Room Air 02/15/25 20:33 02/15/25 21:50 02/15/25 21:59 Temperature Pulse Rate 79 80 Respiratory Rate 18 Blood Pressure Pulse Oximetry Oxygen Delivery Room Air 02/15/25 22:00 02/16/25 00:00 02/16/25 00:00 Temperature 98.0 F Pulse Rate 80 75 74 Respiratory Rate 18 Blood Pressure 107/50 L Pulse Oximetry 100 Oxygen Delivery 02/16/25 00:00 02/16/25 02:00 02/16/25 02:10 Temperature Pulse Rate 70 72 Respiratory Rate 18 Blood Pressure Pulse Oximetry Oxygen Delivery Room Air 02/16/25 02:20 02/16/25 04:00 02/16/25 04:00 Temperature 98.2 F Pulse Rate 73 72 60 Respiratory Rate 18 18 Blood Pressure 110/54 L Pulse Oximetry 100 Oxygen Delivery 02/16/25 04:20 02/16/25 06:00 02/16/25 08:00 Temperature 98.2 F Pulse Rate 70 75 Respiratory Rate 14 Blood Pressure 131/57 L Pulse Oximetry 94 Oxygen Delivery Room Air 02/16/25 08:00 02/16/25 09:12 02/16/25 09:27 Temperature Pulse Rate 76 Respiratory Rate Blood Pressure Pulse Oximetry 94 92 Oxygen Delivery Room Air Room Air 02/16/25 09:27 02/16/25 09:37 02/16/25 11:52 Temperature 98.9 F Pulse Rate 77 74 76 Respiratory Rate 20 20 16 Blood Pressure 107/53 L Pulse Oximetry 93 Oxygen Delivery 02/16/25 12:00 02/16/25 14:48 02/16/25 14:57 Temperature Pulse Rate 77 75 Respiratory Rate 20 20 Blood Pressure Pulse Oximetry 93 Oxygen Delivery Room Air Intake/Output Intake/Output: Intake & Output 02/13/25 02/14/25 02/15/25 02/16/25 23:59 23:59 23:59 23:59 Intake Total 2044.0 3030 3140 2040 Output Total 1625 1850 1000 400 Balance 419.0 1180 2140 1640 Meds/Results Medications: Active Medications Generic Name Dose Route Start Last Admin Trade Name Freq PRN Reason Stop Dose Admin Acetaminophen 650 mg 02/11/25 20:54 02/15/25 12:09 Acetaminophen 325 Mg Tablet PO 650 mg Q4H PRN Administration Mild Pain (1-3) or Fever Hydrocodone Bitart/Acetaminophen 1 tab 02/11/25 20:54 02/15/25 21:59 Hydrocodone/Acetaminophen (*Crx) 5-325 Mg Tablet PO 1 tab Q4H PRN Administration Pain Rated 4-6 Albuterol/Ipratropium 3 ml 02/12/25 08:00 02/16/25 14:46 Ipratropium 0.5 Mg/Albuterol Sulfate 2.5 Mg Ampul.Neb 3 Ml INHALATION 3 ml Q6HRT ENEDELIA Administration Apixaban 5 mg 02/12/25 09:00 02/13/25 08:25 Apixaban 5 Mg Tablet PO 5 mg Q12HR ENEDELIA Administration Bisacodyl 20 mg 02/16/25 17:00 Bisacodyl 5 Mg Tablet Ec PO 02/16/25 17:01 ONCE ONE Calcium Carbonate 200 mg 02/12/25 02:37 Calcium Carbonate (Tums) 500 Mg (200 Mg Elemental) PO QID PRN dyspepsia Calcium Carbonate 500 mg 02/14/25 12:00 02/16/25 12:45 Calcium Carbonate (Oscal) 500 Mg Tablet PO 500 mg TIDWM ENEDELIA Administration Carvedilol 25 mg 02/12/25 09:00 02/16/25 09:12 Carvedilol 25 Mg Tablet PO 25 mg Q12HR ENEDELIA Administration Clopidogrel Bisulfate 75 mg 02/12/25 09:00 02/16/25 09:12 Clopidogrel Bisulfate 75 Mg Tablet PO 75 mg QAM ENEDELIA Administration Felodipine 10 mg 02/12/25 09:00 02/16/25 09:12 Felodipine 5 Mg Tab Cr PO 10 mg QAM ENEDELIA Administration Meropenem 500 mg in 100 mls @ 200 mls/hr 02/13/25 12:30 02/16/25 09:13 IVPB 02/19/25 21:29 200 mls/hr Q12HR ENEDELIA Administration Sodium Chloride 1,000 mls @ 75 mls/hr 02/13/25 17:15 02/16/25 13:43 Normal Saline Iv IV CONT Not Given .[id number] ENEDELIA Doxycycline Hyclate 100 mg in 100 mls @ 100 mls/hr 02/14/25 10:40 02/16/25 09:13 Vibramycin 100 Mg/Ns 100 Ml IVPB 02/16/25 21:59 100 mls/hr Q12HR ENEDELIA Administration Isosorbide Mononitrate 30 mg 02/12/25 09:00 02/16/25 09:12 Isosorbide Mononitrate 30 Mg Tab.Er.24h PO 30 mg DAILY ENEDELIA Administration Levothyroxine Sodium 88 mcg 02/12/25 06:30 02/16/25 06:27 Levothyroxine Sodium 88 Mcg Tablet PO 88 mcg DAILY@0630 [facility] Administration Linezolid 600 mg 02/14/25 21:00 02/16/25 09:12 Linezolid 600 Mg Tablet PO 02/21/25 09:01 600 mg Q12HR ENEDELIA Administration Magnesium Citrate 300 ml 02/17/25 01:00 Magnesium Citrate 300 Ml Btl PO 02/17/25 01:01 ONCE ONE Morphine Sulfate 2 mg 02/14/25 10:36 02/14/25 16:03 Morphine Sulfate (*Crx) 2 Mg/Ml Inj IV PUSH 2 mg Q4H PRN Administration Pain Rated 7-10 Nitroglycerin 0.4 mg 02/12/25 02:37 Nitroglycerin Sl 0.4 Mg Tablet SUBLINGUAL Q5M PRN Chest Pain Ondansetron HCl 4 mg 02/11/25 20:54 02/14/25 16:03 Ondansetron Inj 4 Mg/2 Ml Vial IV PUSH 4 mg Q4H PRN Administration Nausea Oxybutynin Chloride 15 mg 02/12/25 09:00 02/13/25 08:25 Oxybutynin Chloride Xl 5 Mg Tab.Er.24 PO 15 mg DAILY ENEDELIA Administration Pantoprazole Sodium 40 mg 02/12/25 02:55 Pantoprazole 40 Mg Tablet PO DAILY PRN acid reflux Polyethylene Glycol 238 gm 02/16/25 17:00 Polyethylene Glycol 3350 238 Gm Bottle PO 02/16/25 17:01 ONCE ONE Promethazine HCl 12.5 mg 02/14/25 10:29 02/14/25 20:36 Promethazine Hcl 25 Mg/Ml Ampul IV PUSH 12.5 mg Q6H PRN Administration Nausea And Vomiting Ranolazine 500 mg 02/12/25 09:00 02/16/25 09:12 Ranolazine 500 Mg Tab.Er.12h PO 500 mg Q12HR ENEDELIA Administration Rosuvastatin Calcium 40 mg 02/12/25 09:00 02/16/25 09:12 Rosuvastatin 20 Mg Tablet PO 40 mg DAILY ENEDELIA Administration Umeclidinium/Vilanterol 1 puff 02/12/25 08:00 02/16/25 15:00 Umeclidinium/Vilanterol 62.5-25 Mcg Ellipta INHALATION 1 puff DAILYRT ENEDELIA Administration Radiology Results: ITS Impressions Abdomen/Pelvis CT 02/11/25 19:34 IMPRESSION: Left basilar consolidation, an interval change from prior. Findings within the colon suggesting a diarrheal illness, for which clinical correlation is needed. Chest X-Ray 02/11/25 19:58 IMPRESSION: No focal infiltrate or effusion. Venous Doppler Study 02/12/25 11:17 IMPRESSION: 1: No lower extremity deep venous thrombosis. Renal Ultrasound 02/12/25 11:18 Impression: 1: Mild right hydronephrosis. Labs Labs: Laboratory Results - last 24 hr 02/16/25 04:39 WBC 14.5 H RBC 2.76 L Hgb 8.4 L Hct 26.2 L MCV 94.9 MCH 30.4 MCHC 32.1 RDW 19.2 H Plt Count 322 MPV 9.6 Immature Gran % (Auto) 4.1 H Neut % (Auto) 64.4 Lymph % (Auto) 22.2 [place] % (Auto) 9.0 H Eos % (Auto) 0.1 Baso % (Auto) 0.2 Lymph # (Auto) 3.23 H [place] # (Auto) 1.3 H Eos # (Auto) 0.0 Baso # (Auto) 0.0 Abs Immat Gran (auto) 0.60 H Absolute Neuts (auto) 9.4 H Absolute Nucleated RBC 0.050 H Nucleated RBC % 0.3 H Sodium 137 Potassium 3.3 L Chloride 104 Carbon Dioxide 23 Anion Gap 10 BUN 32 H Creatinine 2.33 H Estim Creat Clear Calc 21 Estimated GFR 21 L Glucose 77 Calcium 7.1 L Phosphorus 4.0 Magnesium 1.5 L Total Bilirubin 0.3 AST 30 ALT 22 Alkaline Phosphatase 114 Total Protein 6.0 L Albumin 2.4 L Quality VTE Prophylaxis VTE prophylaxis: pharmacologic ordered (Continue home Eliquis)
[2025-02-16] MEDS: polyethylene glycoL 3350 238 GM BOTTLE PO (17:22)
[2025-02-16] MEDS: BISACODYL 5 MG TABLET EC 20 MG PO (17:22)
[2025-02-16] MEDS: PROMETHAZINE HCL 25 MG/ML AMPUL 12.5 MG IV PUSH (20:52)
[2025-02-17] VITALS (20 sets, daily range): BP systolic 100–133; BP diastolic 49–63; PULSE 69–85; RESP 16–20; TEMP 36.1–36.9; O2SAT 90–97
[2025-02-17] MEDS: MAGNESIUM CITRATE 300 ML BTL PO (00:30)
[2025-02-17] MEDS: IPRATROPIUM 0.5 MG/ALBUTEROL SULFATE 2.5 MG AMPUL.NEB 3 ML INHALATION ×4 (02:02→21:25)
--- NOTE | 2025-02-17 04:14 | PC.NURSE ---
Patient was having difficulty drinking bowel prep early in this RN's shift. Education provided to patient of importance of bowel prep to be able to have a colonoscopy done. RN added some white soda to the drink mix to make the prep more tolerable. RN checked on patient's progress throughout shift, providing encouragement and education to patient to complete prep. At around 0030 patient still had not completed prep and was continuing to fall asleep after RN would leave room, was also gagging after takes some sips. RN provided Mag Citrate at this time, patient took two sips from the bottle and started gagging. RN put drink into a cup to encourage patient to drink from that, but patient fell back asleep. Patient still has not completed prep nor had a bowel movement at this time. Will let the GI team know this morning as this is the 2nd time the patient has failed to complete the prep.
[2025-02-17 04:58] LABS: Basophils Percent Auto 0.2 % (0.2-1.2); Eosinophils Percent Auto 0.1 % (0-4.4); Hematocrit 26.9 % (37.0-47.0); Hemoglobin 8.4 g/dL (12.0-15.0); Immature Granulocyte Absolute 0.57 K/mm3 (0.00-0.031); Immature Granulocyte Percent A 4.2 % (0-0.5); Lymphocytes Absolute Auto 3.23 K/mm3 (0.9-3.2); Mean Corpuscular HGB Conc 31.2 g/dl (32-36); Mean Corpuscular Hemoglobin 30.3 pg (26-34); Mean Corpuscular Volume 97.1 fl (80-100); Mean Platelet Volume 10.1 fl (7.4-10.4); Monocytes Absolute Auto 1.1 K/mm3 (0.1-0.6); Monocytes Percent Auto 8.2 % (2.6-8.5); Neutrophils Absolute Auto 8.5 K/mm3 (1.3-6.7); Neutrophils Percent Auto 63.3 % (45.5-73.1); Nucleated Red Blood Cells Perc 0.3 % (0.0-0.2); Platelet Count Result 323 k/mm3 (150-375); Red Blood Count 2.77 M/mm3 (4.2-5.4); Red Cell Distribution Width 18.8 % (11.5-14.5); White Blood Count 13.5 K/mm3 (4.5-10.0)
[2025-02-17 05:12] LABS: Alanine Aminotransferase 22 U/L (6-35); Albumin Level 2.4 g/dL (3.5-5.1); Alkaline Phosphatase 111 U/L (38-126); Anion Gap 8 mmol/L (4-12); Aspartate Amino Transferase 34 U/L (14-36); Bilirubin,Total 0.4 mg/dL (0.2-1.3); Blood Urea Nitrogen 26 mg/dL (7-17); Calcium 7.6 mg/dL (8.4-10.2); Carbon Dioxide 20 mmol/L (22-30); Chloride 107 mmol/L (98-107); Estimated CRCL calculation 22 ml/min; Estimated Glomerular Filt Rate 21; Glucose 91 mg/dL (65-110); Magnesium 1.6 mg/dL (1.6-2.3); Potassium 3.2 mmol/L (3.4-5.0); Sodium 135 mmol/L (137-145)
[2025-02-17] MEDS: UMECLIDINIUM/VILANTEROL 62.5-25 MCG ELLIPTA 1 PUFF INHALATION (07:50)
[2025-02-17] MEDS: MEROPENEM 500 MG/NS 100 ML 500 MG/100 ML BAG 200 MG IVPB ×2 (09:30→21:13)
[2025-02-17] MEDS: LINEZOLID 600 MG TABLET PO ×2 (09:31→21:13)
[2025-02-17] MEDS: ROSUVASTATIN 20 MG TABLET 40 MG PO (09:31)
[2025-02-17] MEDS: ISOSORBIDE MONONITRATE 30 MG TAB.ER.24H PO (09:31)
[2025-02-17] MEDS: carvediloL 25 MG TABLET PO ×2 (09:31→21:14)
[2025-02-17] MEDS: RANOLAZINE 500 MG TAB.ER.12H PO ×2 (09:31→21:13)
[2025-02-17] MEDS: FELODIPINE 5 MG TAB CR 10 MG PO (09:31)
[2025-02-17] MEDS: CALCIUM CARBONATE (OSCAL) 500 MG TABLET PO ×3 (09:31→17:02)
[2025-02-17] MEDS: CLOPIDOGREL BISULFATE 75 MG TABLET PO (09:31)
--- NOTE | 2025-02-17 09:47 | P.PNNP_ITS ---
Progress Note: A&P Assessment and Plan (1) Acute kidney injury: Code(s): N17.9 - Acute kidney failure, unspecified Status: Acute Assessment and Plan: * improving * as evidenced by admission labs * multifactorial etiology: * prerenal factors (diarrhea) * urinary retention * early sepsis/infection (UTI + pneumonia) * evaluation to date noted: * renal u/s with mild right hydronephrosis * urology following. they see as an outpatient * bladder scan with evidence of urinary retention * urine electrolytes non prerenal * urine eosinophils negative * CPK normal * UA suggestive of infection * proteinuria noted * issues with worsening LE swelling/edema * IVFs discontinued * IV diuretics today * continue to follow trend of repeat labs and UOP (2) Chronic kidney disease, stage 3: Qualifiers: Chronic kidney disease stage 3 subtype: stage 3a (GFR 45-59) Qualified Code(s): N18.31 - Chronic kidney disease, stage 3a Code(s): N18.30 - Chronic kidney disease, stage 3 unspecified Status: Chronic Assessment and Plan: * baseline creatinine runs around 1.4 - 1.9mg/dl in the last few years * however, has been as low as 0.9 - 1.1mg/dl * secondary to 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 (3) Anemia: Code(s): D64.9 - Anemia, unspecified Status: Acute Assessment and Plan: * noted drop in H/H by AM labs (02/13) * PRBC transfusion per protocol * anemia studies with iron deficiency * complicated by recent start of Eliquis for PE (on hold currently) * GI following - planning EGD/colonoscopy * follow trend of H/H (4) Urinary tract infection: Code(s): N39.0 - Urinary tract infection, site not specified Status: Acute Assessment and Plan: * admission UA highly suggestive * on antibiotic therapy * urine culture with E.coli and VRE (5) Pneumonia: Code(s): J18.9 - Pneumonia, unspecified organism Status: Acute Assessment and Plan: * as suggested by admission imaging * blood culture negative to date * on antibiotics (6) Bilateral lower extremity edema: Code(s): R60.0 - Localized edema Status: Acute Assessment and Plan: * noted on admission * related to JOSR/ARF(?) * possible venous insufficiency/circulation issues (has known PAD) * venous dopplers negative for DVT * related to proteinuria(?) * follow clinical exam (7) Acute urinary retention: Code(s): R33.8 - Other retention of urine Status: Acute Assessment and Plan: * as noted by renal ultrasound and bladders scans * calles catheter in place * Urology recommendations noted (8) Essential hypertension: Code(s): I10 - Essential (primary) hypertension Status: Chronic Assessment and Plan: * reasonable control * follow trend of hemodynamics Will continue to follow. L Subjective Date/time seen: 02/17/25 09:47 Interval history: Follow-up for acute kidney injury/acute renal failure on chronic kidney disease. Chart reviewed since last seen -- renal function/creatinine continues to slowly improve but her lower extremity edema/swelling has worsened; IVFs discontinued and IV lasix ordered; no other acute issues/events overnight or earlier this morning; no apparent distress voiced. Exam 2 Narrative: General: elderly (appears older than stated age) WD/WN female in NAD Heart: normal S1 and S2; no rub Lungs: clear to auscultation Abdomen: soft, nontender, nondistended, positive bowel sounds Extremities: no cyanosis or clubbing; 1 - 2+ edema Skin: no rash Objective Data Vital Signs Vital Signs: Vital Signs Temp Pulse Resp BP Pulse Ox O2 Del Method FiO2 02/17/25 09:31 72 02/17/25 08:02 72 20 02/17/25 08:00 71 02/17/25 07:50 70 18 02/17/25 07:50 92 Room Air 21 02/17/25 07:48 98.4 F 69 18 128/62 94 02/17/25 06:00 72 02/17/25 04:20 93 Room Air 02/17/25 04:00 98.5 F 73 16 131/59 L 97 02/17/25 04:00 74 02/17/25 02:13 75 16 02/17/25 02:02 75 16 02/17/25 02:00 69 02/17/25 00:10 94 Room Air 02/17/25 00:00 73 02/17/25 00:00 98.2 F 85 18 133/63 94 02/16/25 22:00 78 02/16/25 21:04 94 Room Air 02/16/25 20:53 76 04/06/25 20:50 93 Room Air 02/16/25 20:26 75 16 02/16/25 20:16 75 16 02/16/25 20:00 78 02/16/25 20:00 97.8 F 73 18 133/57 L 93 02/16/25 18:00 73 Intake/Output Intake/Output: Intake & Output 02/14/25 02/15/25 02/16/25 02/17/25 23:59 23:59 23:59 23:59 Intake Total 3030 3140 4230 0 Output Total 1850 1000 1100 975 Balance 1180 2140 3130 -975 Meds/Results Medications: Active Medications Generic Name Dose Route Start Last Admin Trade Name Freq PRN Reason Stop Dose Admin Acetaminophen 650 mg 02/11/25 20:54 02/15/25 12:09 Acetaminophen 325 Mg Tablet PO 650 mg Q4H PRN Administration Mild Pain (1-3) or Fever Hydrocodone Bitart/Acetaminophen 1 tab 02/11/25 20:54 02/15/25 21:59 Hydrocodone/Acetaminophen (*Crx) 5-325 Mg Tablet PO 1 tab Q4H PRN Administration Pain Rated 4-6 Albuterol/Ipratropium 3 ml 02/12/25 08:00 02/17/25 14:00 Ipratropium 0.5 Mg/Albuterol Sulfate 2.5 Mg Ampul.Neb 3 Ml INHALATION 3 ml Q6HRT ENEDELIA Administration Apixaban 5 mg 02/12/25 09:00 02/13/25 08:25 Apixaban 5 Mg Tablet PO 5 mg Q12HR ENEDELIA Administration Calcium Carbonate 200 mg 02/12/25 02:37 Calcium Carbonate (Tums) 500 Mg (200 Mg Elemental) PO QID PRN dyspepsia Calcium Carbonate 500 mg 02/14/25 12:00 02/17/25 17:02 Calcium Carbonate (Oscal) 500 Mg Tablet PO 500 mg TIDWM ENEDELIA Administration Carvedilol 25 mg 02/12/25 09:00 02/17/25 09:31 Carvedilol 25 Mg Tablet PO 25 mg Q12HR ENEDELIA Administration Clopidogrel Bisulfate 75 mg 02/12/25 09:00 02/17/25 09:31 Clopidogrel Bisulfate 75 Mg Tablet PO 75 mg QAM ENEDELIA Administration Felodipine 10 mg 02/12/25 09:00 02/17/25 09:31 Felodipine 5 Mg Tab Cr PO 10 mg QAM ENEDELIA Administration Meropenem 500 mg in 100 mls @ 200 mls/hr 02/13/25 12:30 02/17/25 09:30 IVPB 02/19/25 21:29 200 mls/hr Q12HR ENEDELIA Administration Isosorbide Mononitrate 30 mg 02/12/25 09:00 02/17/25 09:31 Isosorbide Mononitrate 30 Mg Tab.Er.24h PO 30 mg DAILY ENEDELIA Administration Levothyroxine Sodium 88 mcg 02/12/25 06:30 02/17/25 06:53 Levothyroxine Sodium 88 Mcg Tablet PO Not Given DAILY@0630 [facility] Linezolid 600 mg 02/14/25 21:00 02/17/25 09:31 Linezolid 600 Mg Tablet PO 02/21/25 09:01 600 mg Q12HR ENEDELIA Administration Morphine Sulfate 2 mg 02/14/25 10:36 02/14/25 16:03 Morphine Sulfate (*Crx) 2 Mg/Ml Inj IV PUSH 2 mg Q4H PRN Administration Pain Rated 7-10 Nitroglycerin 0.4 mg 02/12/25 02:37 Nitroglycerin Sl 0.4 Mg Tablet SUBLINGUAL Q5M PRN Chest Pain Ondansetron HCl 4 mg 02/11/25 20:54 02/14/25 16:03 Ondansetron Inj 4 Mg/2 Ml Vial IV PUSH 4 mg Q4H PRN Administration Nausea Oxybutynin Chloride 15 mg 02/12/25 09:00 02/13/25 08:25 Oxybutynin Chloride Xl 5 Mg Tab.Er.24 PO 15 mg DAILY ENEDELIA Administration Pantoprazole Sodium 40 mg 02/12/25 02:55 Pantoprazole 40 Mg Tablet PO DAILY PRN acid reflux Promethazine HCl 12.5 mg 02/14/25 10:29 02/16/25 20:52 Promethazine Hcl 25 Mg/Ml Ampul IV PUSH 12.5 mg Q6H PRN Administration Nausea And Vomiting Ranolazine 500 mg 02/12/25 09:00 02/17/25 09:31 Ranolazine 500 Mg Tab.Er.12h PO 500 mg Q12HR ENEDELIA Administration Rosuvastatin Calcium 40 mg 02/12/25 09:00 02/17/25 09:31 Rosuvastatin 20 Mg Tablet PO 40 mg DAILY ENEDELIA Administration Sodium Chloride 10 ml 02/17/25 14:00 02/17/25 14:49 Saline Lock Flush IV PUSH 10 ml Q8HR ENEDELIA Administration Sodium Chloride 10 ml 02/17/25 11:13 Saline Lock Flush IV PUSH PRN PRN Flush Sodium Chloride 20 ml 02/17/25 11:13 Saline Lock Flush IV PUSH PRN PRN after blood draws Umeclidinium/Vilanterol 1 puff 02/12/25 08:00 02/17/25 07:50 Umeclidinium/Vilanterol 62.5-25 Mcg Ellipta INHALATION 1 puff DAILYRT ENEDELIA Administration Radiology Results: ITS Impressions Abdomen/Pelvis CT 02/11/25 19:34 IMPRESSION: Left basilar consolidation, an interval change from prior. Findings within the colon suggesting a diarrheal illness, for which clinical correlation is needed. Chest X-Ray 02/11/25 19:58 IMPRESSION: No focal infiltrate or effusion. Venous Doppler Study 02/12/25 11:17 IMPRESSION: 1: No lower extremity deep venous thrombosis. Renal Ultrasound 02/12/25 11:18 Impression: 1: Mild right hydronephrosis. Labs Labs: Laboratory Tests 02/17/25 04:30 02/17/25 04:30 Calcium 7.6 L Magnesium 1.6 Total Bilirubin 0.4 AST 34 ALT 22 Alkaline Phosphatase 111 Total Protein 6.0 L Albumin 2.4 L Microbiology 02/11/25 20:06 Blood Blood Culture - Final 02/11/25 20:54 Blood Blood Culture - Final
[2025-02-17] MEDS: MAGNESIUM SULF 2 GM/WATER 50ML 2 GM/50 ML BAG IVPB (09:57)
[2025-02-17] MEDS: FUROSEMIDE INJ 40 MG/4 ML VIAL IV PUSH (11:24)
--- NOTE | 2025-02-17 14:37 | P.PNIM_ITS ---
Progress Note: A&P Assessment and Plan (1) Sepsis: Qualifiers: Acute renal failure type: unspecified Sepsis acute organ dysfunction status: with acute organ dysfunction Sepsis type: sepsis due to unspecified or ganism Severe sepsis acute organ dysfunction type: acute renal failure Severe sepsis shock status: without septic shock Qualified Code(s): A41.9 - Sepsis, unspecified organism; R65.20 - Severe sepsis without septic shock; N17.9 - Acute kidney failure, unspecified Code(s): A41.9 - Sepsis, unspecified organism Status: Acute (2) Diarrhea: Qualifiers: Diarrhea type: infectious Qualified Code(s): A09 - Infectious gastroenteritis and colitis, unspecified Code(s): R19.7 - Diarrhea, unspecified Status: Acute (3) Acute respiratory failure with hypoxia: Code(s): J96.01 - Acute respiratory failure with hypoxia Status: Acute (4) Acute UTI: Code(s): N39.0 - Urinary tract infection, site not specified Status: Acute (5) Acute kidney injury: Code(s): N17.9 - Acute kidney failure, unspecified Status: Acute (6) Chronic kidney disease, stage 3: Qualifiers: Chronic kidney disease stage 3 subtype: stage 3a (GFR 45-59) Qualified Code(s): N18.31 - Chronic kidney disease, stage 3a Code(s): N18.30 - Chronic kidney disease, stage 3 unspecified Status: Chronic (7) Chronic anticoagulation: Code(s): 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 Status: Acute Plan Sepsis From pneumonia and diarrhea CT AP showed diarrhea disease and LLL Pneumonia Blood cultures Continue Meropenem, Doxy and Linezolid s/p IVF monitor Pneumonia LLL pneumonia per CT AP WBC 13.5 from 29.4 Continue above care Diarrhea No inflammation per CT Patient noted much improvement, however, of noted she has been on imodium since onset and thus has likely arrested the diarrhea continue above care and IVF JOSR Cr 2.27 from 6.19 From dehydration Continue IVF Iron deficiency anemia r/o GI bleed hb 8.4 down from 9, s/p 1 unit Isat 10, Venofer 1000/1000 Patient had a recent PE last month and was started on Eliquis For Endoscopy Tomorrow GI following UTI urine culture positive for E coli and VRE Day 4/7 Meropenem and Day 3/7 Linezolid monitor PE Eliquis on hold due to GI bleed Venous doppler negative for DVT HTN titrate home meds with clinical course PAD s/p stent continue Home meds JANNY on CPAP Mild right hydronephrosis US reviewed Follow up with Urology outpatient DVT prophylaxis Eliquis on hold due to GI bleed Subjective Date/time seen: 02/17/25 14:37 Interval history: Comfortable at bedside Review of Systems Review of Systems: 12 systems were reviewed with pertinent positives and negatives per HPI. Except as documented in the HPI, all other systems were reviewed and are negative. Exam Narrative: Weight 71.4 kg BMI 27.9 Const: Other: Acutely ill-appearing, appears older than stated age, height weight proportionate HENMT: Other: Mucous membranes are dry, edentulous in upper and lower jaw, head is normocephalic atraumatic Eyes: Other: Positive conjunctival pallor, no scleral icterus, pupils are equal and reactive with evidence of bilateral lens replacements Neck: Other: No JVD, no lymphadenopathy Resp: Other: Clear to auscultation bilaterally, no increased work of breathing Cardio: Other: Regular rate, regular rhythm, 2+ bilateral radial and pedal pulses, no murmur GI: Other: Soft, nontender, nondistended, positive bowel sounds, no organomegaly : Other: Depends in place Skin: Other: Jaundice, underlying pallor, bruising to the tops of the feet bilaterally, skin of the lower extremities is tight and shiny Neuro: Other: Alert orient x4, speech is clear, no facial asymmetry Extrem: Other: Marked edema bilateral lower extremities which is symmetrical, bruising to the dorsum of the feet bilaterally on the right side more to the toes on the left 8 just proximal to the toes, patient moves all extremities equally, 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 bilateral Objective Data Vital Signs Vital Signs: Vital Signs - 24 hr 02/16/25 14:48 02/16/25 14:57 02/16/25 15:44 Temperature 98.8 F Pulse Rate 77 75 73 Respiratory Rate 20 20 16 Blood Pressure 115/52 L Pulse Oximetry 91 Oxygen Delivery Fraction of Inspired Oxygen 02/16/25 16:00 02/16/25 16:00 02/16/25 18:00 Temperature Pulse Rate 82 73 Respiratory Rate Blood Pressure Pulse Oximetry 94 Oxygen Delivery Room Air Fraction of Inspired Oxygen 04/06/25 20:00 02/16/25 20:00 02/16/25 20:16 Temperature 97.8 F Pulse Rate 73 78 75 Respiratory Rate 18 16 Blood Pressure 133/57 L Pulse Oximetry 93 Oxygen Delivery Fraction of Inspired Oxygen 02/16/25 20:26 02/16/25 20:50 02/16/25 20:53 Temperature Pulse Rate 75 76 Respiratory Rate 16 Blood Pressure Pulse Oximetry 93 Oxygen Delivery Room Air Fraction of Inspired Oxygen 02/16/25 21:04 02/16/25 22:00 02/17/25 00:00 Temperature 98.2 F Pulse Rate 78 85 Respiratory Rate 18 Blood Pressure 133/63 Pulse Oximetry 94 94 Oxygen Delivery Room Air Fraction of Inspired Oxygen 02/17/25 00:00 02/17/25 00:10 02/17/25 02:00 Temperature Pulse Rate 73 69 Respiratory Rate Blood Pressure Pulse Oximetry 94 Oxygen Delivery Room Air Fraction of Inspired Oxygen 02/17/25 02:02 02/17/25 02:13 02/17/25 04:00 Temperature Pulse Rate 75 75 74 Respiratory Rate 16 16 Blood Pressure Pulse Oximetry Oxygen Delivery Fraction of Inspired Oxygen 02/17/25 04:00 02/17/25 04:20 02/17/25 06:00 Temperature 98.5 F Pulse Rate 73 72 Respiratory Rate 16 Blood Pressure 131/59 L Pulse Oximetry 97 93 Oxygen Delivery Room Air Fraction of Inspired Oxygen 02/17/25 07:48 02/17/25 07:50 02/17/25 07:50 Temperature 98.4 F Pulse Rate 69 70 Respiratory Rate 18 18 Blood Pressure 128/62 Pulse Oximetry 94 92 Oxygen Delivery Room Air Fraction of Inspired Oxygen 21 02/17/25 08:00 02/17/25 08:02 02/17/25 09:31 Temperature Pulse Rate 71 72 72 Respiratory Rate 20 Blood Pressure Pulse Oximetry Oxygen Delivery Fraction of Inspired Oxygen 02/17/25 10:00 02/17/25 14:00 02/17/25 14:00 Temperature Pulse Rate 75 72 Respiratory Rate 16 Blood Pressure Pulse Oximetry 90 Oxygen Delivery Room Air Fraction of Inspired Oxygen 21 02/17/25 14:06 Temperature Pulse Rate 73 Respiratory Rate 16 Blood Pressure Pulse Oximetry Oxygen Delivery Fraction of Inspired Oxygen Intake/Output Intake/Output: Intake & Output 02/14/25 02/15/25 02/16/2525 23:59 23:59 23:59 23:59 Intake Total 3030 3140 4230 0 Output Total 1850 1000 1100 975 Balance 1180 2140 3130 -975 Meds/Results Medications: Active Medications Generic Name Dose Route Start Last Admin Trade Name Freq PRN Reason Stop Dose Admin Acetaminophen 650 mg 02/11/25 20:54 02/15/25 12:09 Acetaminophen 325 Mg Tablet PO 650 mg Q4H PRN Administration Mild Pain (1-3) or Fever Hydrocodone Bitart/Acetaminophen 1 tab 02/11/25 20:54 02/15/25 21:59 Hydrocodone/Acetaminophen (*Crx) 5-325 Mg Tablet PO 1 tab Q4H PRN Administration Pain Rated 4-6 Albuterol/Ipratropium 3 ml 02/12/25 08:00 02/17/25 14:00 Ipratropium 0.5 Mg/Albuterol Sulfate 2.5 Mg Ampul.Neb 3 Ml INHALATION 3 ml Q6HRT ENEDELIA Administration Apixaban 5 mg 02/12/25 09:00 02/13/25 08:25 Apixaban 5 Mg Tablet PO 5 mg Q12HR ENEDELIA Administration Calcium Carbonate 200 mg 02/12/25 02:37 Calcium Carbonate (Tums) 500 Mg (200 Mg Elemental) PO QID PRN dyspepsia Calcium Carbonate 500 mg 02/14/25 12:00 02/17/25 11:24 Calcium Carbonate (Oscal) 500 Mg Tablet PO 500 mg TIDWM ENEDELIA Administration Carvedilol 25 mg 02/12/25 09:00 02/17/25 09:31 Carvedilol 25 Mg Tablet PO 25 mg Q12HR ENEDELIA Administration Clopidogrel Bisulfate 75 mg 02/12/25 09:00 02/17/25 09:31 Clopidogrel Bisulfate 75 Mg Tablet PO 75 mg QAM ENEDELIA Administration Felodipine 10 mg 02/12/25 09:00 02/17/25 09:31 Felodipine 5 Mg Tab Cr PO 10 mg QAM ENEDELIA Administration Meropenem 500 mg in 100 mls @ 200 mls/hr 02/13/25 12:30 02/17/25 09:30 IVPB 02/19/25 21:29 200 mls/hr Q12HR ENEDELIA Administration Isosorbide Mononitrate 30 mg 02/12/25 09:00 02/17/25 09:31 Isosorbide Mononitrate 30 Mg Tab.Er.24h PO 30 mg DAILY ENEDELIA Administration Levothyroxine Sodium 88 mcg 02/12/25 06:30 02/17/25 06:53 Levothyroxine Sodium 88 Mcg Tablet PO Not Given DAILY@0630 [facility] Linezolid 600 mg 02/14/25 21:00 02/17/25 09:31 Linezolid 600 Mg Tablet PO 02/21/25 09:01 600 mg Q12HR ENEDELIA Administration Morphine Sulfate 2 mg 02/14/25 10:36 02/14/25 16:03 Morphine Sulfate (*Crx) 2 Mg/Ml Inj IV PUSH 2 mg Q4H PRN Administration Pain Rated 7-10 Nitroglycerin 0.4 mg 02/12/25 02:37 Nitroglycerin Sl 0.4 Mg Tablet SUBLINGUAL Q5M PRN Chest Pain Ondansetron HCl 4 mg 02/11/25 20:54 02/14/25 16:03 Ondansetron Inj 4 Mg/2 Ml Vial IV PUSH 4 mg Q4H PRN Administration Nausea Oxybutynin Chloride 15 mg 02/12/25 09:00 02/13/25 08:25 Oxybutynin Chloride Xl 5 Mg Tab.Er.24 PO 15 mg DAILY [facility] Administration Pantoprazole Sodium 40 mg 02/12/25 02:55 Pantoprazole 40 Mg Tablet PO DAILY PRN acid reflux Promethazine HCl 12.5 mg 02/14/25 10:29 02/16/25 20:52 Promethazine Hcl 25 Mg/Ml Ampul IV PUSH 12.5 mg Q6H PRN Administration Nausea And Vomiting Ranolazine 500 mg 02/12/25 09:00 02/17/25 09:31 Ranolazine 500 Mg Tab.Er.12h PO 500 mg Q12HR [facility] Administration Rosuvastatin Calcium 40 mg 02/12/25 09:00 02/17/25 09:31 Rosuvastatin 20 Mg Tablet PO 40 mg DAILY [facility] Administration Sodium Chloride 10 ml 02/17/25 14:00 Saline Lock Flush IV PUSH Q8HR ENEDELIA Sodium Chloride 10 ml 02/17/25 11:13 Saline Lock Flush IV PUSH PRN PRN Flush Sodium Chloride 20 ml 02/17/25 11:13 Saline Lock Flush IV PUSH PRN PRN after blood draws Umeclidinium/Vilanterol 1 puff 02/12/25 08:00 02/17/25 07:50 Umeclidinium/Vilanterol 62.5-25 Mcg Ellipta INHALATION 1 puff DAILYRT ENEDELIA Administration Radiology Results: ITS Impressions Abdomen/Pelvis CT 02/11/25 19:34 IMPRESSION: Left basilar consolidation, an interval change from prior. Findings within the colon suggesting a diarrheal illness, for which clinical correlation is needed. Chest X-Ray 02/11/25 19:58 IMPRESSION: No focal infiltrate or effusion. Venous Doppler Study 02/12/25 11:17 IMPRESSION: 1: No lower extremity deep venous thrombosis. Renal Ultrasound 02/12/25 11:18 Impression: 1: Mild right hydronephrosis. Labs Labs: Laboratory Results - last 24 hr 02/17/25 04:30 WBC 13.5 H RBC 2.77 L Hgb 8.4 L Hct 26.9 L MCV 97.1 MCH 30.3 MCHC 31.2 L RDW 18.8 H Plt Count 323 MPV 10.1 Immature Gran % (Auto) 4.2 H Neut % (Auto) 63.3 Lymph % (Auto) 24.0 [place] % (Auto) 8.2 Eos % (Auto) 0.1 Baso % (Auto) 0.2 Lymph # (Auto) 3.23 H [place] # (Auto) 1.1 H Eos # (Auto) 0.0 Baso # (Auto) 0.0 Abs Immat Gran (auto) 0.57 H Absolute Neuts (auto) 8.5 H Absolute Nucleated RBC 0.040 H Nucleated RBC % 0.3 H Sodium 135 L Potassium 3.2 L Chloride 107 Carbon Dioxide 20 L Anion Gap 8 BUN 26 H Creatinine 2.27 H Estim Creat Clear Calc 22 Estimated GFR 21 L Glucose 91 Calcium 7.6 L Magnesium 1.6 Total Bilirubin 0.4 AST 34 ALT 22 Alkaline Phosphatase 111 Total Protein 6.0 L Albumin 2.4 L Quality VTE Prophylaxis VTE prophylaxis: pharmacologic ordered (Continue home Eliquis)
[2025-02-17] MEDS: SALINE LOCK FLUSH 10 ML IV PUSH ×2 (14:49→21:14)
--- NOTE | 2025-02-17 17:16 | WPDGIPROGNO ---
Progress Note: A&P Assessment and Plan (1) Chronic iron deficiency anemia: Code(s): D50.9 - Iron deficiency anemia, unspecified Status: Acute Assessment and Plan: will give more bowel prep this evening and Dr Carter will perform egd and colonoscopy tomorrow anemia could be multifactorial from renal disease, also use of blood thinner no overt gib (2) Nausea: Code(s): R11.0 - Nausea Status: Acute Assessment and Plan: she can have zofran as needed (3) Chronic anticoagulation: Code(s): Z79.01 - nursing home (current) use of anticoagulants Status: Acute Assessment and Plan: on hold (4) GERD (gastroesophageal reflux disease): Code(s): K21.9 - Gastro-esophageal reflux disease without esophagitis Status: Acute Assessment and Plan: egd in am (5) Acute on chronic kidney failure: Qualifiers: Acute renal failure type: unspecified Chronic kidney disease stage: stage 3 (moderate) Chronic kidney disease stage 3 subtype: stage 3a (GFR 45-59) Qualified Code(s): N17.9 - Acute kidney failure, unspecified; N18.31 - Chronic kidney disease, stage 3a Code(s): N17.9 - Acute kidney failure, unspecified; N18.9 - Chronic kidney disease, unspecified Status: Acute Assessment and Plan: by nephrology (6) Pneumonia: Code(s): J18.9 - Pneumonia, unspecified organism Status: Acute Assessment and Plan: on abx Subjective Date/time seen: 02/17/25 17:16 Interval history: she only took few sips of laxative then became sick and did not complete prep had BM but still not loose, scopes postponed again Review of Systems Review of Systems: All systems reviewed & are unremarkable except as noted in HPI and below Exam Const: General: comfortable and no acute distress HENMT: Face/Nose/Sinus: Normal nares present Eyes: General: appearance normal, both eyes and all related structures Neck: Neck: supple Resp: Auscultation: clear to auscultation bilaterally Cardio: Rate: regular rate Rhythm: regular rhythm GI: Inspection: non-distended GI Palp: Yes Soft to palpation and No Tenderness to palpation present (GI) Auscultation: normal bowel sounds Skin: General skin exam: normal color Neuro: Speech: normal speech Extrem: General: pedal edema Psych: Mental Status: mental status grossly normal Objective Data Vital Signs Vital Signs: Vital Signs - 24 hr 02/16/25 18:00 02/16/25 20:00 02/16/25 20:00 Temperature 97.8 F Pulse Rate 73 73 78 Respiratory Rate 18 Blood Pressure 133/57 L Pulse Oximetry 93 Oxygen Delivery Fraction of Inspired Oxygen 02/16/25 20:16 02/16/25 20:26 02/16/25 20:50 Temperature Pulse Rate 75 75 Respiratory Rate 16 16 Blood Pressure Pulse Oximetry 93 Oxygen Delivery Room Air Fraction of Inspired Oxygen 02/16/25 20:53 02/16/25 21:04 02/16/25 22:00 Temperature Pulse Rate 76 78 Respiratory Rate Blood Pressure Pulse Oximetry 94 Oxygen Delivery Room Air Fraction of Inspired Oxygen 02/17/25 00:00 02/17/25 00:00 02/17/25 00:10 Temperature 98.2 F Pulse Rate 85 73 Respiratory Rate 18 Blood Pressure 133/63 Pulse Oximetry 94 94 Oxygen Delivery Room Air Fraction of Inspired Oxygen 02/17/25 02:00 02/17/25 02:02 02/17/25 02:13 Temperature Pulse Rate 69 75 75 Respiratory Rate 16 16 Blood Pressure Pulse Oximetry Oxygen Delivery Fraction of Inspired Oxygen 02/17/25 04:00 02/17/25 04:00 02/17/25 04:20 Temperature 98.5 F Pulse Rate 74 73 Respiratory Rate 16 Blood Pressure 131/59 L Pulse Oximetry 97 93 Oxygen Delivery Room Air Fraction of Inspired Oxygen 02/17/25 06:00 02/17/25 07:48 02/17/25 07:50 Temperature 98.4 F Pulse Rate 72 69 Respiratory Rate 18 Blood Pressure 128/62 Pulse Oximetry 94 92 Oxygen Delivery Room Air Fraction of Inspired Oxygen 02/17/25 07:50 02/17/25 08:00 02/17/25 08:02 Temperature Pulse Rate 70 71 72 Respiratory Rate 18 20 Blood Pressure Pulse Oximetry Oxygen Delivery Fraction of Inspired Oxygen 02/17/25 09:31 02/17/25 10:00 02/17/25 14:00 Temperature Pulse Rate 72 75 Respiratory Rate Blood Pressure Pulse Oximetry 90 Oxygen Delivery Room Air Fraction of Inspired Oxygen 21 02/17/25 14:00 02/17/25 14:06 02/17/25 14:21 Temperature Pulse Rate 72 73 Respiratory Rate 16 16 Blood Pressure Pulse Oximetry Oxygen Delivery Room Air Fraction of Inspired Oxygen Intake/Output Intake/Output: Intake & Output 02/14/25 02/15/25 02/16/25 02/17/25 23:59 23:59 23:59 23:59 Intake Total 3030 3140 4230 0 Output Total 1850 1000 1100 975 Balance 1180 2140 3130 -975 Meds/Results Medications: Active Medications Generic Name Dose Route Start Last Admin Trade Name Freq PRN Reason Stop Dose Admin Acetaminophen 650 mg 02/11/25 20:54 02/15/25 12:09 Acetaminophen 325 Mg Tablet PO 650 mg Q4H PRN Administration Mild Pain (1-3) or Fever Hydrocodone Bitart/Acetaminophen 1 tab 02/11/25 20:54 02/15/25 21:59 Hydrocodone/Acetaminophen (*Crx) 5-325 Mg Tablet PO 1 tab Q4H PRN Administration Pain Rated 4-6 Albuterol/Ipratropium 3 ml 02/12/25 08:00 02/17/25 14:00 Ipratropium 0.5 Mg/Albuterol Sulfate 2.5 Mg Ampul.Neb 3 Ml INHALATION 3 ml Q6HRT ENEDELIA Administration Apixaban 5 mg 02/12/25 09:00 02/13/25 08:25 Apixaban 5 Mg Tablet PO 5 mg Q12HR ENEDELIA Administration Calcium Carbonate 200 mg 02/12/25 02:37 Calcium Carbonate (Tums) 500 Mg (200 Mg Elemental) PO QID PRN dyspepsia Calcium Carbonate 500 mg 02/14/25 12:00 02/17/25 17:02 Calcium Carbonate (Oscal) 500 Mg Tablet PO 500 mg TIDWM ENEDELIA Administration Carvedilol 25 mg 02/12/25 09:00 02/17/25 09:31 Carvedilol 25 Mg Tablet PO 25 mg Q12HR ENEDELIA Administration Clopidogrel Bisulfate 75 mg 02/12/25 09:00 02/17/25 09:31 Clopidogrel Bisulfate 75 Mg Tablet PO 75 mg QAM ENEDELIA Administration Felodipine 10 mg 02/12/25 09:00 02/17/25 09:31 Felodipine 5 Mg Tab Cr PO 10 mg QAM ENEDELIA Administration Meropenem 500 mg in 100 mls @ 200 mls/hr 02/13/25 12:30 02/17/25 09:30 IVPB 02/19/25 21:29 200 mls/hr Q12HR ENEDELIA Administration Isosorbide Mononitrate 30 mg 02/12/25 09:00 02/17/25 09:31 Isosorbide Mononitrate 30 Mg Tab.Er.24h PO 30 mg DAILY ENEDELIA Administration Levothyroxine Sodium 88 mcg 02/12/25 06:30 02/17/25 06:53 Levothyroxine Sodium 88 Mcg Tablet PO Not Given DAILY@0630 ENEDELIA Linezolid 600 mg 02/14/25 21:00 02/17/25 09:31 Linezolid 600 Mg Tablet PO 02/21/25 09:01 600 mg Q12HR ENEDELIA Administration Morphine Sulfate 2 mg 02/14/25 10:36 02/14/25 16:03 Morphine Sulfate (*Crx) 2 Mg/Ml Inj IV PUSH 2 mg Q4H PRN Administration Pain Rated 7-10 Nitroglycerin 0.4 mg 02/12/25 02:37 Nitroglycerin Sl 0.4 Mg Tablet SUBLINGUAL Q5M PRN Chest Pain Ondansetron HCl 4 mg 02/11/25 20:54 02/14/25 16:03 Ondansetron Inj 4 Mg/2 Ml Vial IV PUSH 4 mg Q4H PRN Administration Nausea Oxybutynin Chloride 15 mg 02/12/25 09:00 02/13/25 08:25 Oxybutynin Chloride Xl 5 Mg Tab.Er.24 PO 15 mg DAILY ENEDELIA Administration Pantoprazole Sodium 40 mg 02/12/25 02:55 Pantoprazole 40 Mg Tablet PO DAILY PRN acid reflux Promethazine HCl 12.5 mg 02/14/25 10:29 02/16/25 20:52 Promethazine Hcl 25 Mg/Ml Ampul IV PUSH 12.5 mg Q6H PRN Administration Nausea And Vomiting Ranolazine 500 mg 02/12/25 09:00 02/17/25 09:31 Ranolazine 500 Mg Tab.Er.12h PO 500 mg Q12HR ENEDELIA Administration Rosuvastatin Calcium 40 mg 02/12/25 09:00 02/17/25 09:31 Rosuvastatin 20 Mg Tablet PO 40 mg DAILY ENEDELIA Administration Sodium Chloride 10 ml 02/17/25 14:00 02/17/25 14:49 Saline Lock Flush IV PUSH 10 ml Q8HR ENEDELIA Administration Sodium Chloride 10 ml 02/17/25 11:13 Saline Lock Flush IV PUSH PRN PRN Flush Sodium Chloride 20 ml 02/17/25 11:13 Saline Lock Flush IV PUSH PRN PRN after blood draws Umeclidinium/Vilanterol 1 puff 02/12/25 08:00 02/17/25 07:50 Umeclidinium/Vilanterol 62.5-25 Mcg Ellipta INHALATION 1 puff DAILYRT ENEDELIA Administration Radiology Results: ITS Impressions Abdomen/Pelvis CT 02/11/25 19:34 IMPRESSION: Left basilar consolidation, an interval change from prior. Findings within the colon suggesting a diarrheal illness, for which clinical correlation is needed. Chest X-Ray 02/11/25 19:58 IMPRESSION: No focal infiltrate or effusion. Venous Doppler Study 02/12/25 11:17 IMPRESSION: 1: No lower extremity deep venous thrombosis. Renal Ultrasound 02/12/25 11:18 Impression: 1: Mild right hydronephrosis. Labs Labs: Laboratory Results - last 24 hr 02/17/25 04:30 WBC 13.5 H RBC 2.77 L Hgb 8.4 L Hct 26.9 L MCV 97.1 MCH 30.3 MCHC 31.2 L RDW 18.8 H Plt Count 323 MPV 10.1 Immature Gran % (Auto) 4.2 H Neut % (Auto) 63.3 Lymph % (Auto) 24.0 [place] % (Auto) 8.2 Eos % (Auto) 0.1 Baso % (Auto) 0.2 Lymph # (Auto) 3.23 H [place] # (Auto) 1.1 H Eos # (Auto) 0.0 Baso # (Auto) 0.0 Abs Immat Gran (auto) 0.57 H Absolute Neuts (auto) 8.5 H Absolute Nucleated RBC 0.040 H Nucleated RBC % 0.3 H Sodium 135 L Potassium 3.2 L Chloride 107 Carbon Dioxide 20 L Anion Gap 8 BUN 26 H Creatinine 2.27 H Estim Creat Clear Calc 22 Estimated GFR 21 L Glucose 91 Calcium 7.6 L Magnesium 1.6 Total Bilirubin 0.4 AST 34 ALT 22 Alkaline Phosphatase 111 Total Protein 6.0 L Albumin 2.4 L
[2025-02-17] MEDS: BISACODYL 5 MG TABLET EC 20 MG PO (18:10)
[2025-02-17] MEDS: polyethylene glycoL 3350 238 GM BOTTLE PO (18:11)
[2025-02-17 20:51] LABS: IFOB Positive Control Positive; Immunochemical Fecal Occult Bl Positive (N)
[2025-02-17 21:06] LABS: Toxigenic C. Diff NEGATIVE (NEGATIVE)
--- NOTE | 2025-02-17 21:26 | PCRCNOTE ---
RT in ED
[2025-02-18] VITALS (16 sets, daily range): BP systolic 125–146; BP diastolic 54–73; PULSE 71–90; RESP 2–20; TEMP 36.4–37.1; O2SAT 95–100
[2025-02-18] MEDS: IPRATROPIUM 0.5 MG/ALBUTEROL SULFATE 2.5 MG AMPUL.NEB 3 ML INHALATION ×3 (02:27→20:29)
[2025-02-18 05:17] LABS: Basophils Percent Auto 0.1 % (0.2-1.2); Eosinophils Percent Auto 0.1 % (0-4.4); Hemoglobin 8.4 g/dL (12.0-15.0); Immature Granulocyte Absolute 0.31 K/mm3 (0.00-0.031); Immature Granulocyte Percent A 2.3 % (0-0.5); Lymphocytes Percent Auto 27.7 % (18.3-44.2); Mean Corpuscular HGB Conc 31.1 g/dl (32-36); Mean Corpuscular Hemoglobin 29.9 pg (26-34); Mean Corpuscular Volume 96.1 fl (80-100); Mean Platelet Volume 10.2 fl (7.4-10.4); Monocytes Percent Auto 7.3 % (2.6-8.5); Neutrophils Absolute Auto 8.6 K/mm3 (1.3-6.7); Neutrophils Percent Auto 62.5 % (45.5-73.1); Nucleated Red Blood Cells Perc 0.1 % (0.0-0.2); Platelet Count Result 322 k/mm3 (150-375); Red Blood Count 2.81 M/mm3 (4.2-5.4); Red Cell Distribution Width 18.6 % (11.5-14.5); White Blood Count 13.7 K/mm3 (4.5-10.0)
[2025-02-18] MEDS: SALINE LOCK FLUSH 10 ML IV PUSH ×3 (05:34→20:47)
[2025-02-18] MEDS: MAGNESIUM CITRATE 300 ML BTL PO (05:34)
[2025-02-18] MEDS: LEVOTHYROXINE SODIUM 88 MCG TABLET PO (05:34)
[2025-02-18 05:51] LABS: Alanine Aminotransferase 25 U/L (6-35); Albumin Level 2.3 g/dL (3.5-5.1); Alkaline Phosphatase 109 U/L (38-126); Anion Gap 9 mmol/L (4-12); Aspartate Amino Transferase 37 U/L (14-36); Bilirubin,Total 0.3 mg/dL (0.2-1.3); Blood Urea Nitrogen 22 mg/dL (7-17); Carbon Dioxide 22 mmol/L (22-30); Chloride 105 mmol/L (98-107); Estimated CRCL calculation 22 ml/min; Estimated Glomerular Filt Rate 22; Glucose 90 mg/dL (65-110); Magnesium 1.7 mg/dL (1.6-2.3); Potassium 2.8 mmol/L (3.4-5.0); Sodium 136 mmol/L (137-145)
[2025-02-18] MEDS: POTASSIUM CHLORIDE INJ 40 MEQ in SODIUM CHLORIDE 0.9% IV 500 ML 125.18 MEQ IVPB ×2 (06:36→10:46)
[2025-02-18] MEDS: carvediloL 25 MG TABLET PO ×2 (08:53→20:47)
[2025-02-18] MEDS: MEROPENEM 500 MG/NS 100 ML 500 MG/100 ML BAG 200 MG IVPB ×2 (08:56→20:46)
--- NOTE | 2025-02-18 10:00 | P.PNNP_ITS ---
Progress Note: A&P Assessment and Plan (1) Acute kidney injury: Code(s): N17.9 - Acute kidney failure, unspecified Status: Acute Assessment and Plan: * improving * as evidenced by admission labs * multifactorial etiology: * prerenal factors (diarrhea) * urinary retention * early sepsis/infection (UTI + pneumonia) * evaluation to date noted: * renal u/s with mild right hydronephrosis * urology following. they see as an outpatient * bladder scan with evidence of urinary retention * urine electrolytes non prerenal * urine eosinophils negative * CPK normal * UA suggestive of infection * proteinuria noted * issues with worsening LE swelling/edema * IVFs discontinued * IV diuretics yesterday with reasonable response * continue to follow trend of repeat labs and UOP (2) Chronic kidney disease, stage 3: Qualifiers: Chronic kidney disease stage 3 subtype: stage 3a (GFR 45-59) Qualified Code(s): N18.31 - Chronic kidney disease, stage 3a Code(s): N18.30 - Chronic kidney disease, stage 3 unspecified Status: Chronic Assessment and Plan: * baseline creatinine runs around 1.4 - 1.9mg/dl in the last few years * however, has been as low as 0.9 - 1.1mg/dl * secondary to 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 (3) Anemia: Code(s): D64.9 - Anemia, unspecified Status: Acute Assessment and Plan: * noted drop in H/H by AM labs (02/13) * PRBC transfusion per protocol * anemia studies with iron deficiency * complicated by recent start of Eliquis for PE (on hold currently) * GI following - planning EGD/colonoscopy * follow trend of H/H (4) Urinary tract infection: Code(s): N39.0 - Urinary tract infection, site not specified Status: Acute Assessment and Plan: * admission UA highly suggestive * on antibiotic therapy * urine culture with E.coli and VRE (5) Pneumonia: Code(s): J18.9 - Pneumonia, unspecified organism Status: Acute Assessment and Plan: * as suggested by admission imaging * blood culture negative to date * on antibiotics (6) Bilateral lower extremity edema: Code(s): R60.0 - Localized edema Status: Acute Assessment and Plan: * noted on admission * related to JOSR/ARF(?) * possible venous insufficiency/circulation issues (has known PAD) * venous dopplers negative for DVT * related to proteinuria(?) * follow clinical exam (7) Acute urinary retention: Code(s): R33.8 - Other retention of urine Status: Acute Assessment and Plan: * as noted by renal ultrasound and bladders scans * calles catheter in place * Urology recommendations noted (8) Essential hypertension: Code(s): I10 - Essential (primary) hypertension Status: Chronic Assessment and Plan: * reasonable control * follow trend of hemodynamics Will continue to follow. L Subjective Date/time seen: 02/18/25 10:00 Interval history: Follow-up for acute kidney injury/acute renal failure on chronic kidney disease. Renal function/creatinine appears relatively stable in the last 24 hours despite use of IV lasix yesterday although potassium level did drop; noted plans for EGD/colonoscopy later this afternoon although she reports difficulty with bowel prep yesterday afternoon/evening. Exam 2 Narrative: General: elderly (appears older than stated age) WD/WN female in NAD Heart: normal S1 and S2; no rub Lungs: clear to auscultation Abdomen: soft, nontender, nondistended, positive bowel sounds Extremities: no cyanosis or clubbing; 1+ edema Skin: no nodules Objective Data Vital Signs Vital Signs: Vital Signs Temp Pulse Resp BP Pulse Ox O2 Del Method FiO2 02/18/25 09:48 78 20 02/18/25 09:35 76 20 02/18/25 09:35 96 Room Air 02/18/25 08:53 2 L 96 Room Air 02/18/25 08:53 76 02/18/25 06:00 98.7 F 71 18 131/54 L 95 02/18/25 02:37 78 16 02/18/25 02:27 78 16 02/17/25 22:00 98.3 F 73 18 100/49 L 97 02/17/25 21:14 76 02/17/25 20:00 73 18 97 Room Air 21 02/17/25 16:00 96.9 F L 74 16 105/49 L 91 02/17/25 14:21 Room Air 02/17/25 14:06 73 16 02/17/25 14:00 72 16 02/17/25 14:00 90 Room Air 21 Intake/Output Intake/Output: Intake & Output 02/15/25 02/16/25 02/17/25 02/18/25 23:59 23:59 23:59 23:59 Intake Total 3140 4230 320 Output Total 1000 1100 1175 3200 Balance 2140 3130 -063 -320 Meds/Results Medications: Active Medications Generic Name Dose Route Start Last Admin Trade Name Freq PRN Reason Stop Dose Admin Acetaminophen 650 mg 02/11/25 20:54 02/15/25 12:09 Acetaminophen 325 Mg Tablet PO 650 mg Q4H PRN Administration Mild Pain (1-3) or Fever Hydrocodone Bitart/Acetaminophen 1 tab 02/11/25 20:54 02/15/25 21:59 Hydrocodone/Acetaminophen (*Crx) 5-325 Mg Tablet PO 1 tab Q4H PRN Administration Pain Rated 4-6 Albuterol/Ipratropium 3 ml 02/12/25 08:00 02/18/25 10:15 Ipratropium 0.5 Mg/Albuterol Sulfate 2.5 Mg Ampul.Neb 3 Ml INHALATION 3 ml Q6HRT ENEDELIA Administration Apixaban 5 mg 02/12/25 09:00 02/13/25 08:25 Apixaban 5 Mg Tablet PO 5 mg Q12HR ENEDELIA Administration Calcium Carbonate 200 mg 02/12/25 02:37 Calcium Carbonate (Tums) 500 Mg (200 Mg Elemental) PO QID PRN dyspepsia Calcium Carbonate 500 mg 02/14/25 12:00 02/18/25 08:44 Calcium Carbonate (Oscal) 500 Mg Tablet PO Not Given TIDWM ENEDELIA Carvedilol 25 mg 02/12/25 09:00 02/18/25 08:53 Carvedilol 25 Mg Tablet PO 25 mg Q12HR ENEDELIA Administration Clopidogrel Bisulfate 75 mg 02/12/25 09:00 02/18/25 08:44 Clopidogrel Bisulfate 75 Mg Tablet PO Not Given QAM ENEDELIA Felodipine 10 mg 02/12/25 09:00 02/18/25 08:44 Felodipine 5 Mg Tab Cr PO Not Given QAM ENEDELIA Meropenem 500 mg in 100 mls @ 200 mls/hr 02/13/25 12:30 02/18/25 08:56 IVPB 02/19/25 21:29 200 mls/hr Q12HR ENEDELIA Administration Potassium Chloride 40 meq/ 520 mls @ 125.184 mls/hr 02/18/25 10:40 02/18/25 10:46 Sodium Chloride IVPB 02/18/25 14:49 125.18 mls/hr ONCE ONE Administration Isosorbide Mononitrate 30 mg 02/12/25 09:00 02/18/25 08:44 Isosorbide Mononitrate 30 Mg Tab.Er.24h PO Not Given DAILY [facility] Levothyroxine Sodium 88 mcg 02/12/25 06:30 02/18/25 05:34 Levothyroxine Sodium 88 Mcg Tablet PO 88 mcg DAILY@0630 ENEDELIA Administration Linezolid 600 mg 02/14/25 21:00 02/18/25 08:44 Linezolid 600 Mg Tablet PO 02/21/25 09:01 Not Given Q12HR [facility] Morphine Sulfate 2 mg 02/14/25 10:36 02/14/25 16:03 Morphine Sulfate (*Crx) 2 Mg/Ml Inj IV PUSH 2 mg Q4H PRN Administration Pain Rated 7-10 Nitroglycerin 0.4 mg 02/12/25 02:37 Nitroglycerin Sl 0.4 Mg Tablet SUBLINGUAL Q5M PRN Chest Pain Ondansetron HCl 4 mg 02/11/25 20:54 02/14/25 16:03 Ondansetron Inj 4 Mg/2 Ml Vial IV PUSH 4 mg Q4H PRN Administration Nausea Oxybutynin Chloride 15 mg 02/12/25 09:00 02/13/25 08:25 Oxybutynin Chloride Xl 5 Mg Tab.Er.24 PO 15 mg DAILY ENEDELIA Administration Pantoprazole Sodium 40 mg 02/12/25 02:55 Pantoprazole 40 Mg Tablet PO DAILY PRN acid reflux Promethazine HCl 12.5 mg 02/14/25 10:29 02/16/25 20:52 Promethazine Hcl 25 Mg/Ml Ampul IV PUSH 12.5 mg Q6H PRN Administration Nausea And Vomiting Ranolazine 500 mg 02/12/25 09:00 02/18/25 08:44 Ranolazine 500 Mg Tab.Er.12h PO Not Given Q12HR [facility] Rosuvastatin Calcium 40 mg 02/12/25 09:00 02/18/25 08:44 Rosuvastatin 20 Mg Tablet PO Not Given DAILY [facility] Sodium Chloride 10 ml 02/17/25 14:00 02/18/25 05:34 Saline Lock Flush IV PUSH 10 ml Q8HR ENEDELIA Administration Sodium Chloride 10 ml 02/17/25 11:13 Saline Lock Flush IV PUSH PRN PRN Flush Sodium Chloride 20 ml 02/17/25 11:13 Saline Lock Flush IV PUSH PRN PRN after blood draws Umeclidinium/Vilanterol 1 puff 02/12/25 08:00 02/18/25 10:15 Umeclidinium/Vilanterol 62.5-25 Mcg Ellipta INHALATION Not Given DAILYRT [facility] Radiology Results: ITS Impressions Abdomen/Pelvis CT 02/11/25 19:34 IMPRESSION: Left basilar consolidation, an interval change from prior. Findings within the colon suggesting a diarrheal illness, for which clinical correlation is needed. Chest X-Ray 02/11/25 19:58 IMPRESSION: No focal infiltrate or effusion. Venous Doppler Study 02/12/25 11:17 IMPRESSION: 1: No lower extremity deep venous thrombosis. Renal Ultrasound 02/12/25 11:18 Impression: 1: Mild right hydronephrosis. Labs Labs: Laboratory Tests 02/18/25 04:39 02/18/25 04:39 Sodium 136 L Potassium 2.8 L* Chloride 105 Carbon Dioxide 22 Anion Gap 9 BUN 22 H Creatinine 2.26 H Estim Creat Clear Calc 22 Estimated GFR 22 L Glucose 90 Calcium 8.0 L Magnesium 1.7 Total Bilirubin 0.3 AST 37 H ALT 25 Alkaline Phosphatase 109 Total Protein 5.0 L Albumin 2.3 L Microbiology 02/17/25 20:02 Stool Escherichia coli Shiga Toxins - Final 02/17/25 20:02 Stool Campylobacter Antigen Assay - Final
--- NOTE | 2025-02-18 10:01 | PM.IMPN ---
Progress Note: A&P Assessment and Plan (1) Sepsis: Qualifiers: Acute renal failure type: unspecified Sepsis acute organ dysfunction status: with acute organ dysfunction Sepsis type: sepsis due to unspecified organism Severe sepsis acute organ dysfunction type: acute renal failure Severe sepsis shock status: without septic shock Qualified Code(s): A41.9 - Sepsis, unspecified organism; R65.20 - Severe sepsis without septic shock; N17.9 - Acute kidney failure, unspecified Code(s): A41.9 - Sepsis, unspecified organism Status: Acute (2) Diarrhea: Qualifiers: Diarrhea type: infectious Qualified Code(s): A09 - Infectious gastroenteritis and colitis, unspecified Code(s): R19.7 - Diarrhea, unspecified Status: Acute (3) Acute respiratory failure with hypoxia: Code(s): J96.01 - Acute respiratory failure with hypoxia Status: Acute (4) Acute UTI: Code(s): N39.0 - Urinary tract infection, site not specified Status: Acute (5) Acute kidney injury: Code(s): N17.9 - Acute kidney failure, unspecified Status: Acute (6) Chronic kidney disease, stage 3: Qualifiers: Chronic kidney disease stage 3 subtype: stage 3a (GFR 45-59) Qualified Code(s): N18.31 - Chronic kidney disease, stage 3a Code(s): N18.30 - Chronic kidney disease, stage 3 unspecified Status: Chronic (7) Chronic anticoagulation: Code(s): 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 Status: Acute Plan Sepsis From pneumonia and diarrhea CT AP showed diarrhea disease and LLL Pneumonia Blood cultures Continue Meropenem, Doxy and Linezolid s/p IVF monitor Pneumonia LLL pneumonia per CT AP WBC 13.5 from 29.4 Continue above care Diarrhea No inflammation per CT Patient noted much improvement, however, of noted she has been on imodium since onset and thus has likely arrested the diarrhea continue above care and IVF JOSR Cr 2.26 from 6.19 From dehydration Continue IVF Iron deficiency anemia r/o GI bleed hb 8.4 down from 9, s/p 1 unit Isat 10, Venofer 1000/1000 Patient had a recent PE last month and was started on Eliquis Endoscopy shows mild gastritis Colonoscopy as outpatient GI following UTI urine culture positive for E coli and VRE Day 4/7 Meropenem and Day 3/7 Linezolid monitor PE Eliquis on hold due to GI bleed Venous doppler negative for DVT HTN titrate home meds with clinical course PAD s/p stent continue Home meds JANNY on CPAP Mild right hydronephrosis US reviewed Follow up with Urology outpatient DVT prophylaxis Eliquis on hold due to GI bleed Subjective Date/time seen: 02/18/25 10:01 Interval history: Interval Iza Gayle, a 69-year-old female with a complex medical history including: deep venous thrombosis and pulmonary embolism (2014), coronary artery disease with stent placement (2014), atrial fibrillation on Eliquis, chronic kidney disease, COPD, and retroperitoneal fibrosis. Her surgical history includes radical nephrectomy for left kidney cancer, splenectomy, and cholecystectomy. She was treated for a left lower lobe pneumonia in January of this year, with a recent chest X-ray showing no evidence of recurrence. She is currently hospitalized for a urinary tract infection, for which she is receiving meropenem. Currently patient is been followed by GI due to diarrhea and low hemoglobin. Patient is also followed by Nephrology due to creatinine 5.12 02/18: Patient underwent EGD which shows mild diffuse gastritis without any findings to explain chronic blood loss. Patient still requires colonoscopy and prefers to do as outpatient Review of Systems Review of Systems: 12 systems were reviewed with pertinent positives and negatives per HPI. Except as documented in the HPI, all other systems were reviewed and are negative. Exam Narrative: Weight 71.4 kg BMI 27.9 Const: Other: Acutely ill-appearing, appears older than stated age, height weight proportionate HENMT: Other: Mucous membranes are dry, edentulous in upper and lower jaw, head is normocephalic atraumatic Eyes: Other: Positive conjunctival pallor, no scleral icterus, pupils are equal and reactive with evidence of bilateral lens replacements Neck: Other: No JVD, no lymphadenopathy Resp: Other: Clear to auscultation bilaterally, no increased work of breathing Cardio: Other: Regular rate, regular rhythm, 2+ bilateral radial and pedal pulses, no murmur GI: Other: Soft, nontender, nondistended, positive bowel sounds, no organomegaly : Other: Depends in place Skin: Other: Jaundice, underlying pallor, bruising to the tops of the feet bilaterally, skin of the lower extremities is tight and shiny Neuro: Other: Alert orient x4, speech is clear, no facial asymmetry Extrem: Other: Marked edema bilateral lower extremities which is symmetrical, bruising to the dorsum of the feet bilaterally on the right side more to the toes on the left 8 just proximal to the toes, patient moves all extremities equally, 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 Objective Data Vital Signs Vital Signs: Vital Signs - 24 hr 02/17/25 14:00 02/17/25 14:00 02/17/25 14:06 Temperature Pulse Rate 72 73 Respiratory Rate 16 16 Blood Pressure Pulse Oximetry 90 Oxygen Delivery Room Air Fraction of Inspired Oxygen 21 02/17/25 14:21 02/17/25 16:00 02/17/25 20:00 Temperature 96.9 F L Pulse Rate 74 73 Respiratory Rate 16 18 Blood Pressure 105/49 L Pulse Oximetry 91 97 Oxygen Delivery Room Air Room Air Fraction of Inspired Oxygen 21 02/17/25 21:14 02/17/25 22:00 02/18/25 02:27 Temperature 98.3 F Pulse Rate 76 73 78 Respiratory Rate 18 16 Blood Pressure 100/49 L Pulse Oximetry 97 Oxygen Delivery Fraction of Inspired Oxygen 02/18/25 02:37 02/18/25 06:00 02/18/25 08:53 Temperature 98.7 F Pulse Rate 78 71 76 Respiratory Rate 16 18 Blood Pressure 131/54 L Pulse Oximetry 95 Oxygen Delivery Fraction of Inspired Oxygen Intake/Output Intake/Output: Intake & Output 02/15/25 02/16/25 02/17/25 02/18/25 23:59 23:59 23:59 23:59 Intake Total 3140 4230 320 Output Total 1000 1100 1175 3200 Balance 2140 3130 -855 -3200 Meds/Results Medications: Active Medications Generic Name Dose Route Start Last Admin Trade Name Freq PRN Reason Stop Dose Admin Acetaminophen 650 mg 02/11/25 20:54 02/15/25 12:09 Acetaminophen 325 Mg Tablet PO 650 mg Q4H PRN Administration Mild Pain (1-3) or Fever Hydrocodone Bitart/Acetaminophen 1 tab 02/11/25 20:54 02/15/25 21:59 Hydrocodone/Acetaminophen (*Crx) 5-325 Mg Tablet PO 1 tab Q4H PRN Administration Pain Rated 4-6 Albuterol/Ipratropium 3 ml 02/12/25 08:00 02/18/25 02:27 Ipratropium 0.5 Mg/Albuterol Sulfate 2.5 Mg Ampul.Neb 3 Ml INHALATION 3 ml Q6HRT ENEDELIA Administration Apixaban 5 mg 02/12/25 09:00 02/13/25 08:25 Apixaban 5 Mg Tablet PO 5 mg Q12HR ENEDELIA Administration Calcium Carbonate 200 mg 02/12/25 02:37 Calcium Carbonate (Tums) 500 Mg (200 Mg Elemental) PO QID PRN dyspepsia Calcium Carbonate 500 mg 02/14/25 12:00 02/18/25 08:44 Calcium Carbonate (Oscal) 500 Mg Tablet PO Not Given TIDWM [facility] Carvedilol 25 mg 02/12/25 09:00 02/18/25 08:53 Carvedilol 25 Mg Tablet PO 25 mg Q12HR ENEDELIA Administration Clopidogrel Bisulfate 75 mg 02/12/25 09:00 02/18/25 08:44 Clopidogrel Bisulfate 75 Mg Tablet PO Not Given QAM [facility] Felodipine 10 mg 02/12/25 09:00 02/18/25 08:44 Felodipine 5 Mg Tab Cr PO Not Given QAM [facility] Meropenem 500 mg in 100 mls @ 200 mls/hr 02/13/25 12:30 02/18/25 08:56 IVPB 02/19/25 21:29 200 mls/hr Q12HR ENEDELIA Administration Potassium Chloride 40 meq/ 520 mls @ 125.184 mls/hr 02/18/25 06:30 02/18/25 06:36 Sodium Chloride IVPB 02/18/25 10:39 125.18 mls/hr ONCE ONE Administration Potassium Chloride 40 meq/ 520 mls @ 125.184 mls/hr 02/18/25 10:40 Sodium Chloride IVPB 02/18/25 14:49 ONCE ONE Isosorbide Mononitrate 30 mg 02/12/25 09:00 02/18/25 08:44 Isosorbide Mononitrate 30 Mg Tab.Er.24h PO Not Given DAILY ENEDELIA Levothyroxine Sodium 88 mcg 02/12/25 06:30 02/18/25 05:34 Levothyroxine Sodium 88 Mcg Tablet PO 88 mcg DAILY@0630 ENEDELIA Administration Linezolid 600 mg 02/14/25 21:00 02/18/25 08:44 Linezolid 600 Mg Tablet PO 02/21/25 09:01 Not Given Q12HR ENEDELIA Morphine Sulfate 2 mg 02/14/25 10:36 02/14/25 16:03 Morphine Sulfate (*Crx) 2 Mg/Ml Inj IV PUSH 2 mg Q4H PRN Administration Pain Rated 7-10 Nitroglycerin 0.4 mg 02/12/25 02:37 Nitroglycerin Sl 0.4 Mg Tablet SUBLINGUAL Q5M PRN Chest Pain Ondansetron HCl 4 mg 02/11/25 20:54 02/14/25 16:03 Ondansetron Inj 4 Mg/2 Ml Vial IV PUSH 4 mg Q4H PRN Administration Nausea Oxybutynin Chloride 15 mg 02/12/25 09:00 02/13/25 08:25 Oxybutynin Chloride Xl 5 Mg Tab.Er.24 PO 15 mg DAILY ENEDELIA Administration Pantoprazole Sodium 40 mg 02/12/25 02:55 Pantoprazole 40 Mg Tablet PO DAILY PRN acid reflux Promethazine HCl 12.5 mg 02/14/25 10:29 02/16/25 20:52 Promethazine Hcl 25 Mg/Ml Ampul IV PUSH 12.5 mg Q6H PRN Administration Nausea And Vomiting Ranolazine 500 mg 02/12/25 09:00 02/18/25 08:44 Ranolazine 500 Mg Tab.Er.12h PO Not Given Q12HR [facility] Rosuvastatin Calcium 40 mg 02/12/25 09:00 02/18/25 08:44 Rosuvastatin 20 Mg Tablet PO Not Given DAILY ENEDELIA Sodium Chloride 10 ml 02/17/25 14:00 02/18/25 05:34 Saline Lock Flush IV PUSH 10 ml Q8HR ENEDELIA Administration Sodium Chloride 10 ml 02/17/25 11:13 Saline Lock Flush IV PUSH PRN PRN Flush Sodium Chloride 20 ml 02/17/25 11:13 Saline Lock Flush IV PUSH PRN PRN after blood draws Umeclidinium/Vilanterol 1 puff 02/12/25 08:00 02/17/25 07:50 Umeclidinium/Vilanterol 62.5-25 Mcg Ellipta INHALATION 1 puff DAILYRT ENEDELIA Administration Radiology Results: ITS Impressions Abdomen/Pelvis CT 02/11/25 19:34 IMPRESSION: Left basilar consolidation, an interval change from prior. Findings within the colon suggesting a diarrheal illness, for which clinical correlation is needed. Chest X-Ray 02/11/25 19:58 IMPRESSION: No focal infiltrate or effusion. Venous Doppler Study 02/12/25 11:17 IMPRESSION: 1: No lower extremity deep venous thrombosis. Renal Ultrasound 02/12/25 11:18 Impression: 1: Mild right hydronephrosis. Labs Labs: Laboratory Results - last 24 hr 02/17/25 02/18/25 20:02 04:39 WBC 13.7 H RBC 2.81 L Hgb 8.4 L Hct 27.0 L MCV 96.1 MCH 29.9 MCHC 31.1 L RDW 18.6 H Plt Count 322 MPV 10.2 Immature Gran % (Auto) 2.3 H Neut % (Auto) 62.5 Lymph % (Auto) 27.7 [place] % (Auto) 7.3 Eos % (Auto) 0.1 Baso % (Auto) 0.1 L Lymph # (Auto) 3.80 H [place] # (Auto) 1.0 H Eos # (Auto) 0.0 Baso # (Auto) 0.0 Abs Immat Gran (auto) 0.31 H Absolute Neuts (auto) 8.6 H Absolute Nucleated RBC 0.020 H Nucleated RBC % 0.1 Sodium 136 L Potassium 2.8 L* Chloride 105 Carbon Dioxide 22 Anion Gap 9 BUN 22 H Creatinine 2.26 H Estim Creat Clear Calc 22 Estimated GFR 22 L Glucose 90 Calcium 8.0 L Magnesium 1.7 Total Bilirubin 0.3 AST 37 H ALT 25 Alkaline Phosphatase 109 Total Protein 5.0 L Albumin 2.3 L Stl Occult Blood (IFOB) Positive H C. difficile (PCR) Negative Quality VTE Prophylaxis VTE prophylaxis: pharmacologic ordered (Continue home Eliquis) Hospitalist MIPS Advance Care Plan I have confirmed that the patient's Advanced Care Plan is present, code status is documented, or surrogate decision maker is listed in patient medical record.: Yes Medication Reconciliation I have utilized all available resources to obtain, update and review the patients current medications (includes all prescriptions, OTC, herbals, cannabis, and nutritional supplements).: Yes
--- NOTE | 2025-02-18 11:41 | PCPTNOTE ---
Attempted PT evaluation, pt refused stating she just worked with OT and was too tired to do more today. Nursing aware. Will follow.
[2025-02-18 12:32] LABS: Potassium 3.8 mmol/L (3.4-5.0)
[2025-02-18] MEDS: LACTATED RINGERS 1,000 ML 150 ML IV CONT (13:32)
--- NOTE | 2025-02-18 13:35 | WPDANESEPPF ---
Anes - Initial Pre Proc Eval Procedure: Operation Date: 02/14/25 15:00 Proposed Procedures p Esophagogastroduodenoscopy EGD - Christiano Carter MD Operation Date: 02/18/25 14:00 Proposed Procedures p Esophagogastroduodenoscopy - Christiano Carter MD Date/Time: 02/18/25 13:35 Surgeon: Bev Guzman DO Pre Op Diagnosis: sepsis, uti, acute kidney injury, possible c.diff Patient Data Age: 69 Gender: F Height: 1.6 m Weight: 79.8 kg Last Vital Signs Temp 37.1 C 02/18/25 06:00 Pulse 78 02/18/25 09:48 Resp 20 02/18/25 09:48 BP 131/54 L 02/18/25 06:00 Pulse Ox 96 02/18/25 09:35 O2 Del Method Room Air 02/18/25 09:35 O2 Flow Rate 4 02/15/25 04:30 FiO2 21 02/17/25 20:00 Allergies Allergy/AdvReac Type Severity Reaction Status Date / Time No Known Allergies Allergy Verified 02/18/25 13:26 Home Medications ?Medication ?Instructions ?Recorded ?Confirmed ?Type clopidogrel 75 mg tablet (Plavix) 75 mg PO QAM 12/02/19 02/18/25 History nitroglycerin 0.4 mg sublingual 0.4 mg sublingual Q5M PRN Chest 12/02/19 02/11/25 History tablet Pain oxybutynin chloride 15 mg 15 mg PO DAILY 12/02/19 02/11/25 History tablet,extended release 24 hr ranolazine 500 mg tablet,extended 500 mg PO BID 03/24/21 02/11/25 History release,12 hr rosuvastatin 40 mg tablet 40 mg PO DAILY 05/09/23 02/11/25 History zoledronic acid 5 mg/100 mL in 1 ea IV DIRECTED 12/11/23 02/11/25 History mannitol 5 %-water intravenous piggybck methenamine hippurate 1 gram tablet 1 g PO BID 02/06/24 02/11/25 History felodipine 10 mg tablet,extended 10 mg PO QAM #90 tabs 04/16/24 02/11/25 Rx release 24 hr Stiolto Respimat 2.5 mcg-2.5 See Rx Instructions .Route 05/01/24 02/11/25 Rx mcg/actuation solution for .COMPLEX #12 grams inhalation (tiotropium-olodaterol) folic acid 1 mg tablet 1 mg PO DAILY #90 tabs 05/22/24 02/11/25 Rx levothyroxine 88 mcg tablet 88 mcg PO QAM #90 tabs 05/22/24 02/11/25 Rx albuterol sulfate 90 mcg/actuation 1 - 2 inh inhalation Q4-6H PRN 06/07/24 02/11/25 Rx aerosol inhaler shortness of breath or wheezing #8.5 grams isosorbide mononitrate 30 mg 30 mg PO DAILY 11/25/24 02/11/25 History tablet,extended release 24 hr carvedilol 25 mg tablet 25 mg PO Q12H #180 tabs 12/19/24 02/11/25 Rx lansoprazole 15 mg capsule,delayed 15 mg PO DAILY PRN acid reflux 01/10/25 02/11/25 History release apixaban 5 mg tablet (Eliquis) 5 mg PO Q12HR #60 tabs 01/28/25 02/18/25 Rx ipratropium 0.5 mg-albuterol 3 mg 3 ml inhalation Q6HRT #90 vials 01/28/25 02/11/25 Rx (2.5 mg base)/3 mL nebulization soln pantoprazole 40 mg tablet,delayed 40 mg PO QAM #30 tabs 01/28/25 02/11/25 Rx release sennosides 8.6 mg tablet (Senokot) 8.6 mg PO DAILY PRN Constipation 01/28/25 02/12/25 Rx #30 tabs acetaminophen 500 mg tablet 500 mg PO Q6H PRN fever or pain 02/11/25 02/11/25 History calcium carbonate (Antacid 200 mg PO QID PRN dyspepsia 02/11/25 02/11/25 History (calcium carbonate)) guaifenesin 600 mg tablet, 1,200 mg PO Q12HR PRN congestion 02/11/25 02/11/25 History extended release 12 hr (Mucus Relief ER) ondansetron 4 mg disintegrating 4 mg translingual Q8H PRN nausea 02/11/25 02/11/25 History tablet and vomiting polyethylene glycol 3350 17 gram 17 g PO QAM PRN constipation 02/12/25 02/12/25 History oral powder packet (Miralax) Laboratory Tests 02/17/25 02/18/25 02/18/25 20:02 04:39 12:00 WBC 13.7 H K/mm3 (4.5-10.0) RBC 2.81 L M/mm3 (4.2-5.4) Hgb 8.4 L g/dL (12.0-15.0) Hct 27.0 L % (37.0-47.0) MCV 96.1 fl (80-100) MCH 29.9 pg (26-34) MCHC 31.1 L g/dl (32-36) RDW 18.6 H % (11.5-14.5) Plt Count 322 k/mm3 (150-375) MPV 10.2 fl (7.4-10.4) Immature Gran % (Auto) 2.3 H % (0-0.5) Neut % (Auto) 62.5 % (45.5-73.1) Lymph % (Auto) 27.7 % (18.3-44.2) [place] % (Auto) 7.3 % (2.6-8.5) Eos % (Auto) 0.1 % (0-4.4) Baso % (Auto) 0.1 L % (0.2-1.2) Lymph # (Auto) 3.80 H K/mm3 (0.9-3.2) [place] # (Auto) 1.0 H K/mm3 (0.1-0.6) Eos # (Auto) 0.0 K/mm3 (0-0.3) Baso # (Auto) 0.0 K/mm3 (0.0-0.1) Abs Immat Gran (auto) 0.31 H K/mm3 (0.00-0.031) Absolute Neuts (auto) 8.6 H K/mm3 (1.3-6.7) Absolute Nucleated RBC 0.020 H K/mm3 (0.0-0.012) Nucleated RBC % 0.1 % (0.0-0.2) Sodium 136 L mmol/L (137-145) Potassium 2.8 L* mmol/L 3.8 mmol/L (3.4-5.0) (3.4-5.0) Chloride 105 mmol/L (98-107) Carbon Dioxide 22 mmol/L (22-30) Anion Gap 9 mmol/L (4-12) BUN 22 H mg/dL (7-17) Creatinine 2.26 H mg/dL (0.7-1.0) Estim Creat Clear Calc 22 ml/min Estimated GFR 22 L (59 - ) Glucose 90 mg/dL (65-110) Calcium 8.0 L mg/dL (8.4-10.2) Magnesium 1.7 mg/dL (1.6-2.3) Total Bilirubin 0.3 mg/dL (0.2-1.3) AST 37 H U/L (14-36) ALT 25 U/L (6-35) Alkaline Phosphatase 109 U/L (38-126) Total Protein 5.0 L g/dL (6.3-8.2) Albumin 2.3 L g/dL (3.5-5.1) Stl Occult Blood (IFOB) Positive H (N) C. difficile (PCR) Negative (NEGATIVE) Patient hx anesthesia problems: none Family hx anesthesia problems: none Results Review: All pre-operative results and documents have been reviewed as part of the pre-operative evaluation. [facility] Past Medical History Medical History Hunner's ulcer Coronary artery disease Chronic obstructive pulmonary disease Chronic kidney disease, stage 3 Abdominal aortic aneurysm mild dilatation of the distal aorta measuring 3.[address] scan in November 2024 Hypercholesterolemia Deep venous thrombosis (2014) Chronic anticoagulation Paroxysmal atrial fibrillation Essential hypertension Gastro-esophageal reflux disease without esophagitis Pulmonary embolism (2014) 2014 and January 2025 History of tobacco abuse Anxiety Gout Osteoporosis Arthritis Cancer of left kidney status post left nephrectomy Ventral hernia Hemorrhoids Sleep apnea does not use CPAP Migraine Glaucoma Hypothyroidism Peripheral vascular disease, unspecified Surgical History Surgical History History of right breast biopsy History of open reduction and internal fixation (ORIF) procedure repair of bilateral wrist and left foot fractures History of cystoscopy History of hernia repair History of vascular surgery bifemoral bypass left femoral and popliteal stents History of ventral hernia repair History of right shoulder replacement History of cholecystectomy History of appendectomy History of left nephrectomy History of splenectomy retroperitoneal fibrosis History of tubal ligation History of cataract extraction History of coronary artery stent placement (2014) Hx of foot surgery History of hysterectomy Family History Family History Mother Family history of Alzheimer's disease, Onset Age: 82 Sibling Family history of diabetes mellitus in first degree relative Diabetes mellitus Family history of congenital heart disease Father Family history of emphysema Family history of congenital heart disease Other Hypertension Social History Social History Social History: The patient reports he lives in her own home. One of her sons lives with her. Her granddaughter Cordelia helps her significantly. She is a former smoker she smoked 0.5 packs of cigarettes per day from the time she was a teenager until age 59. She denies any history of alcohol use or illicit substance use. She ambulates with a Rollator. Code status: Full code. Healthcare power of city attorney: Cordelia Christianson (granddaughter) Smoking packs per day: 0.5 Smoking cigarettes per day: 10.0 Years smoked: 40 Smoking pack-years: 20.00 Smoking status: Former smoker Tobacco type: cigarettes Second hand tobacco smoke exposure: No Smoking end date: 11/13/14 Additional smoking assessment comments: quit 2013 Alcohol intake: never Substance use: never Substance use type: does not use Do You Feel Safe in your Home?: Yes Lack of Transportation: No Lack of Food: Never True Current Housing: I Have Housing Concerned About Future Housing: No Difficulty Paying Gas/Electric Bills: No Difficulty Paying for Meds: No Currently Unemployed: No Education: High School Diploma/GED Difficulty w/ Childcare or Family Care: No Living arrangements: with family Additional living arrangements comments: Son Occupation/Education: retired Gender identity (if verbalized by the patient): Female Spiritual care concerns: No Anes - Eval Final PreProcedure Day of Procedure 02/18/25 13:35 Patient weight: obese Heart: regular rate and rhythm Lungs: decreased breath sounds Airway: Mallampati scale class II Neurological: alert and oriented Last oral intake: >/= 8 hours ASA classification: IV Emergent: no Anesthetic plan: proceed Anesthesia type and monitoring: general GIVS and standard monitoring Results Review: All pre-operative results and documents have been reviewed as part of the pre-operative evaluation. Informed Consent: The patient's anesthetic plan and its attendant risks and benefits were discussed with the patient/family/POA. Questions were solicited and answers provided to the satisfaction of the patient/family/POA.
--- NOTE | 2025-02-18 13:53 | P.PNGI_ITS ---
Progress Note: A&P Assessment and Plan (1) Iron deficiency anemia: Code(s): D50.9 - Iron deficiency anemia, unspecified Status: Acute Assessment and Plan: The patient's iron deficiency anemia workup is incomplete due to poor colonoscopy preparation. While EGD showed mild diffuse gastritis without findings to explain chronic blood loss (no ulcers, erosions, or neoplasia), colonoscopy is still required. Given the need for a two-day prep and the patient's preference for an at-home procedure, please refer her to our clinic upon discharge to arrange this. Subjective Date/time seen: 02/18/25 13:53 Interval history: See EGD report. Exam Narrative: General: elderly (appears older than stated age) WD/WN female in NAD Heart: normal S1 and S2; no rub Lungs: clear to auscultation Abdomen: soft, nontender, nondistended, positive bowel sounds Extremities: no cyanosis or clubbing; 1+ edema Skin: no nodules Objective Data Vital Signs Vital Signs: Vital Signs - 24 hr 02/17/25 14:00 02/17/25 14:00 02/17/25 14:06 Temperature Pulse Rate 72 73 Respiratory Rate 16 16 Blood Pressure Pulse Oximetry 90 Oxygen Delivery Room Air Fraction of Inspired Oxygen 21 02/17/25 14:21 02/17/25 16:00 02/17/25 20:00 Temperature 96.9 F L Pulse Rate 74 73 Respiratory Rate 16 18 Blood Pressure 105/49 L Pulse Oximetry 91 97 Oxygen Delivery Room Air Room Air Fraction of Inspired Oxygen 21 02/17/25 21:14 02/17/25 22:00 02/18/25 02:27 Temperature 98.3 F Pulse Rate 76 73 78 Respiratory Rate 18 16 Blood Pressure 100/49 L Pulse Oximetry 97 Oxygen Delivery Fraction of Inspired Oxygen 02/18/25 02:37 02/18/25 06:00 02/18/25 08:53 Temperature 98.7 F Pulse Rate 78 71 76 Respiratory Rate 16 18 Blood Pressure 131/54 L Pulse Oximetry 95 Oxygen Delivery Fraction of Inspired Oxygen 02/18/25 08:53 02/18/25 09:35 02/18/25 09:35 Temperature Pulse Rate 76 Respiratory Rate 2 L 20 Blood Pressure Pulse Oximetry 96 96 Oxygen Delivery Room Air Room Air Fraction of Inspired Oxygen 02/18/25 09:48 02/18/25 13:10 Temperature 97.8 F Pulse Rate 78 78 Respiratory Rate 20 20 Blood Pressure 146/62 H Pulse Oximetry 95 Oxygen Delivery Room Air Fraction of Inspired Oxygen Intake/Output Intake/Output: Intake & Output 02/15/25 02/16/25 02/17/25 02/18/25 23:59 23:59 23:59 23:59 Intake Total 3140 4230 320 50 Output Total 1000 1100 1175 3200 Balance 2140 6238 -330 -1389 Meds/Results Medications: Active Medications Generic Name Dose Route Start Last Admin Trade Name Freq PRN Reason Stop Dose Admin Acetaminophen 650 mg 02/11/25 20:54 02/15/25 12:09 Acetaminophen 325 Mg Tablet PO 650 mg Q4H PRN Administration Mild Pain (1-3) or Fever Hydrocodone Bitart/Acetaminophen 1 tab 02/11/25 20:54 02/15/25 21:59 Hydrocodone/Acetaminophen (*Crx) 5-325 Mg Tablet PO 1 tab Q4H PRN Administration Pain Rated 4-6 Albuterol/Ipratropium 3 ml 02/12/25 08:00 02/18/25 10:15 Ipratropium 0.5 Mg/Albuterol Sulfate 2.5 Mg Ampul.Neb 3 Ml INHALATION 3 ml Q6HRT ENEDELIA Administration Apixaban 5 mg 02/12/25 09:00 02/13/25 08:25 Apixaban 5 Mg Tablet PO 5 mg Q12HR ENEDELIA Administration Calcium Carbonate 200 mg 02/12/25 02:37 Calcium Carbonate (Tums) 500 Mg (200 Mg Elemental) PO QID PRN dyspepsia Calcium Carbonate 500 mg 02/14/25 12:00 02/18/25 08:44 Calcium Carbonate (Oscal) 500 Mg Tablet PO Not Given TIDWM ENEDELIA Carvedilol 25 mg 02/12/25 09:00 02/18/25 08:53 Carvedilol 25 Mg Tablet PO 25 mg Q12HR ENEDELIA Administration Clopidogrel Bisulfate 75 mg 02/12/25 09:00 02/18/25 08:44 Clopidogrel Bisulfate 75 Mg Tablet PO Not Given QAM ENEDELIA Felodipine 10 mg 02/12/25 09:00 02/18/25 08:44 Felodipine 5 Mg Tab Cr PO Not Given QAM ENEDELIA Meropenem 500 mg in 100 mls @ 200 mls/hr 02/13/25 12:30 04/08/25 08:56 IVPB 02/19/25 21:29 200 mls/hr Q12HR ENEDELIA Administration Potassium Chloride 40 meq/ 520 mls @ 125.184 mls/hr 02/18/25 10:40 02/18/25 10:46 Sodium Chloride IVPB 02/18/25 14:49 125.18 mls/hr ONCE ONE Administration Lactated Ringer's 1,000 mls @ 150 mls/hr 02/18/25 13:35 02/18/25 13:52 Lr - Lactated Ringers Iv IV CONT 150 mls/hr .Q6H40M ENEDELIA Infusion Isosorbide Mononitrate 30 mg 02/12/25 09:00 02/18/25 08:44 Isosorbide Mononitrate 30 Mg Tab.Er.24h PO Not Given DAILY ENEDELIA Levothyroxine Sodium 88 mcg 02/12/25 06:30 02/18/25 05:34 Levothyroxine Sodium 88 Mcg Tablet PO 88 mcg DAILY@0630 ENEDELIA Administration Linezolid 600 mg 02/14/25 21:00 02/18/25 08:44 Linezolid 600 Mg Tablet PO 02/21/25 09:01 Not Given Q12HR ENEDELIA Morphine Sulfate 2 mg 02/14/25 10:36 02/14/25 16:03 Morphine Sulfate (*Crx) 2 Mg/Ml Inj IV PUSH 2 mg Q4H PRN Administration Pain Rated 7-10 Nitroglycerin 0.4 mg 02/12/25 02:37 Nitroglycerin Sl 0.4 Mg Tablet SUBLINGUAL Q5M PRN Chest Pain Ondansetron HCl 4 mg 02/11/25 20:54 02/14/25 16:03 Ondansetron Inj 4 Mg/2 Ml Vial IV PUSH 4 mg Q4H PRN Administration Nausea Oxybutynin Chloride 15 mg 02/12/25 09:00 02/13/25 08:25 Oxybutynin Chloride Xl 5 Mg Tab.Er.24 PO 15 mg DAILY ENEDELIA Administration Pantoprazole Sodium 40 mg 02/12/25 02:55 Pantoprazole 40 Mg Tablet PO DAILY PRN acid reflux Promethazine HCl 12.5 mg 02/14/25 10:29 02/16/25 20:52 Promethazine Hcl 25 Mg/Ml Ampul IV PUSH 12.5 mg Q6H PRN Administration Nausea And Vomiting Ranolazine 500 mg 02/12/25 09:00 02/18/25 08:44 Ranolazine 500 Mg Tab.Er.12h PO Not Given Q12HR ENEDELIA Rosuvastatin Calcium 40 mg 02/12/25 09:00 02/18/25 08:44 Rosuvastatin 20 Mg Tablet PO Not Given DAILY ENEDELIA Sodium Chloride 10 ml 02/17/25 14:00 02/18/25 05:34 Saline Lock Flush IV PUSH 10 ml Q8HR ENEDELIA Administration Sodium Chloride 10 ml 02/17/25 11:13 Saline Lock Flush IV PUSH PRN PRN Flush Sodium Chloride 20 ml 02/17/25 11:13 Saline Lock Flush IV PUSH PRN PRN after blood draws Umeclidinium/Vilanterol 1 puff 02/12/25 08:00 02/18/25 10:15 Umeclidinium/Vilanterol 62.5-25 Mcg Ellipta INHALATION Not Given DAILYRT [facility] Radiology Results: ITS Impressions Abdomen/Pelvis CT 02/11/25 19:34 IMPRESSION: Left basilar consolidation, an interval change from prior. Findings within the colon suggesting a diarrheal illness, for which clinical correlation is needed. Chest X-Ray 02/11/25 19:58 IMPRESSION: No focal infiltrate or effusion. Venous Doppler Study 02/12/25 11:17 IMPRESSION: 1: No lower extremity deep venous thrombosis. Renal Ultrasound 02/12/25 11:18 Impression: 1: Mild right hydronephrosis. Labs Labs: Laboratory Results - last 24 hr 02/17/25 02/18/25 02/18/25 20:02 04:39 12:00 WBC 13.7 H RBC 2.81 L Hgb 8.4 L Hct 27.0 L MCV 96.1 MCH 29.9 MCHC 31.1 L RDW 18.6 H Plt Count 322 MPV 10.2 Immature Gran % (Auto) 2.3 H Neut % (Auto) 62.5 Lymph % (Auto) 27.7 [place] % (Auto) 7.3 Eos % (Auto) 0.1 Baso % (Auto) 0.1 L Lymph # (Auto) 3.80 H [place] # (Auto) 1.0 H Eos # (Auto) 0.0 Baso # (Auto) 0.0 Abs Immat Gran (auto) 0.31 H Absolute Neuts (auto) 8.6 H Absolute Nucleated RBC 0.020 H Nucleated RBC % 0.1 Sodium 136 L Potassium 2.8 L* 3.8 Chloride 105 Carbon Dioxide 22 Anion Gap 9 BUN 22 H Creatinine 2.26 H Estim Creat Clear Calc 22 Estimated GFR 22 L Glucose 90 Calcium 8.0 L Magnesium 1.7 Total Bilirubin 0.3 AST 37 H ALT 25 Alkaline Phosphatase 109 Total Protein 5.0 L Albumin 2.3 L Stl Occult Blood (IFOB) Positive H C. difficile (PCR) Negative
[2025-02-18] MEDS: CALCIUM CARBONATE (OSCAL) 500 MG TABLET PO (17:48)
[2025-02-18] MEDS: APIXABAN 5 MG TABLET PO (20:46)
[2025-02-18] MEDS: RANOLAZINE 500 MG TAB.ER.12H PO (20:47)
[2025-02-18] MEDS: LINEZOLID 600 MG TABLET PO (20:47)
[2025-02-19] VITALS (13 sets, daily range): BP systolic 119–125; BP diastolic 51–57; PULSE 73–87; RESP 15–20; TEMP 36.5–37.3; O2SAT 3–100
[2025-02-19] MEDS: SALINE LOCK FLUSH 10 ML IV PUSH ×3 (06:26→21:37)
[2025-02-19] MEDS: LEVOTHYROXINE SODIUM 88 MCG TABLET PO (06:26)
[2025-02-19] MEDS: IPRATROPIUM 0.5 MG/ALBUTEROL SULFATE 2.5 MG AMPUL.NEB 3 ML INHALATION ×3 (08:59→21:29)
[2025-02-19] MEDS: UMECLIDINIUM/VILANTEROL 62.5-25 MCG ELLIPTA 1 PUFF INHALATION (08:59)
[2025-02-19 09:20] LABS: Hematocrit 28.6 % (37.0-47.0); Mean Corpuscular HGB Conc 31.5 g/dl (32-36); Mean Corpuscular Hemoglobin 30.3 pg (26-34); Mean Corpuscular Volume 96.3 fl (80-100); Mean Platelet Volume 10.4 fl (7.4-10.4); Platelet Count Result 338 k/mm3 (150-375); Red Blood Count 2.97 M/mm3 (4.2-5.4); Red Cell Distribution Width 18.9 % (11.5-14.5); White Blood Count 13.5 K/mm3 (4.5-10.0)
[2025-02-19] MEDS: RANOLAZINE 500 MG TAB.ER.12H PO ×2 (09:34→20:52)
[2025-02-19] MEDS: CLOPIDOGREL BISULFATE 75 MG TABLET PO (09:34)
[2025-02-19] MEDS: carvediloL 25 MG TABLET PO ×2 (09:34→20:51)
[2025-02-19] MEDS: FELODIPINE 5 MG TAB CR 10 MG PO (09:35)
[2025-02-19] MEDS: ROSUVASTATIN 20 MG TABLET 40 MG PO (09:35)
[2025-02-19] MEDS: CALCIUM CARBONATE (OSCAL) 500 MG TABLET PO ×3 (09:36→16:19)
[2025-02-19] MEDS: APIXABAN 5 MG TABLET PO ×2 (09:36→20:51)
[2025-02-19] MEDS: LINEZOLID 600 MG TABLET PO ×2 (09:36→20:53)
[2025-02-19] MEDS: ISOSORBIDE MONONITRATE 30 MG TAB.ER.24H PO (09:36)
[2025-02-19] MEDS: MEROPENEM 500 MG/NS 100 ML 500 MG/100 ML BAG 200 MG IVPB ×2 (09:37→20:53)
[2025-02-19] MEDS: oxyBUTYnin CHLORIDE XL 5 MG TAB.ER.24 15 MG PO (09:46)
--- NOTE | 2025-02-19 10:33 | P.DS_ITS ---
DS: Summary Time Spent with Patient Time attestation: Total time spent providing and/or coordinating discharge services: DS: Data Data Completed and Pending Labs on day of discharge: Labs from last 24 hours 02/19/25 02/18/25 09:08 12:00 WBC 13.5 H RBC 2.97 L Hgb 9.0 L Hct 28.6 L MCV 96.3 MCH 30.3 MCHC 31.5 L RDW 18.9 H Plt Count 338 MPV 10.4 Sodium Pending Potassium Pending 3.8 Chloride Pending Carbon Dioxide Pending Anion Gap Pending BUN Pending Creatinine Pending Estim Creat Clear Calc Pending Estimated GFR Pending Glucose Pending Calcium Pending Total Bilirubin Pending AST Pending ALT Pending Alkaline Phosphatase Pending Total Protein Pending Albumin Pending Discharge Plan Discharge Consulting providers: Dominick Quintero; Lazaro Juarez; Christiano Carter Patient Instructions: Apixaban (By mouth), Heart Failure (GEN) Patient Language: Micronesian Discharge Medications: No Action nitroglycerin 0.4 mg tablet, sublingual 0.4 mg SUBLINGUAL Q5M PRN (Reason: Chest Pain) Rx Instructions: until response; do not exceed 3 doses per episode oxybutynin chloride 15 mg tablet extended release 24hr 15 mg PO DAILY clopidogrel [Plavix] 75 mg tablet 75 mg PO QAM Stiolto Respimat 2.5-2.5 mcg/actuation mist See Rx Instructions .ROUTE .COMPLEX Qty: 12 3RF Dose Instruction: INHALE 2 PUFFS BY MOUTH IN THE MORNING Rx Instructions: INHALE 2 PUFFS BY MOUTH IN THE MORNING zoledronic [id number] 5 mg/100 mL piggyback 1 ea IV DIRECTED Rx Instructions: YEARLY, TAOOK IN OCTOBER rosuvastatin 40 mg tablet 40 mg PO DAILY lansoprazole 15 mg capsule,delayed release(DR/EC) 15 mg PO DAILY PRN (Reason: acid reflux) sennosides [Senokot] 8.6 mg Tablet 8.6 mg PO DAILY PRN (Reason: Constipation) Qty: 30 0RF ipratropium-albuterol 0.5 mg-3 mg(2.5 mg base)/3 mL Solution For Nebulization 3 ml inhalation Q6HRT Qty: 90 0RF pantoprazole 40 mg Tablet,Delayed Release (Dr/Ec) 40 mg PO QAM Qty: 30 0RF Eliquis 5 mg Tablet 5 mg PO Q12HR Qty: 60 0RF ranolazine 500 mg tablet extended release 12 hr 500 mg PO BID methenamine hippurate 1 gram tablet 1 g PO BID isosorbide mononitrate 30 mg tablet extended release 24 hr 30 mg PO DAILY acetaminophen 500 mg tablet 500 mg PO Q6H PRN (Reason: fever or pain) ondansetron 4 mg tablet,disintegrating 4 mg translingual Q8H PRN (Reason: nausea and vomiting) calcium carbonate [Antacid (calcium carbonate)] 200 mg calcium (500 mg) tablet,chewable 200 mg PO QID PRN (Reason: dyspepsia) guaifenesin [Mucus Relief ER] 600 mg Tablet Extended Release 12hr 1,200 mg PO Q12HR PRN (Reason: congestion) polyethylene glycol 3350 [Miralax] 17 gram Powder In Packet 17 g PO QAM PRN (Reason: constipation) felodipine 10 mg tablet extended release 24 hr 10 mg PO QAM Qty: 90 3RF folic acid 1 mg tablet 1 mg PO DAILY Qty: 90 3RF levothyroxine 88 mcg tablet 88 mcg PO QAM Qty: 90 3RF albuterol sulfate 90 mcg/actuation HFA aerosol inhaler 1 - 2 inh inhalation Q4-6H PRN (Reason: shortness of breath or wheezing) Qty: 8.5 3RF carvedilol 25 mg tablet 25 mg PO Q12H Qty: 180 2RF Rx Instructions: must administer with a meal/food Date of admission: 02/12/25 07:50 Primary Care Provider: Ricardo Freeman Admitting Provider: Bev Guzman Attending physician on admission: Bev Guzman Condition: Serious
--- NOTE | 2025-02-19 10:40 | PM.IMPN ---
Progress Note: A&P Assessment and Plan (1) Sepsis: Qualifiers: Acute renal failure type: unspecified Sepsis acute organ dysfunction status: with acute organ dysfunction Sepsis type: sepsis due to unspecified organism Severe sepsis acute organ dysfunction type: acute renal failure Severe sepsis shock status: without septic shock Qualified Code(s): A41.9 - Sepsis, unspecified organism; R65.20 - Severe sepsis without septic shock; N17.9 - Acute kidney failure, unspecified Code(s): A41.9 - Sepsis, unspecified organism Status: Acute (2) Diarrhea: Qualifiers: Diarrhea type: infectious Qualified Code(s): A09 - Infectious gastroenteritis and colitis, unspecified Code(s): R19.7 - Diarrhea, unspecified Status: Acute (3) Acute respiratory failure with hypoxia: Code(s): J96.01 - Acute respiratory failure with hypoxia Status: Acute (4) Acute UTI: Code(s): N39.0 - Urinary tract infection, site not specified Status: Acute (5) Acute kidney injury: Code(s): N17.9 - Acute kidney failure, unspecified Status: Acute (6) Chronic kidney disease, stage 3: Qualifiers: Chronic kidney disease stage 3 subtype: stage 3a (GFR 45-59) Qualified Code(s): N18.31 - Chronic kidney disease, stage 3a Code(s): N18.30 - Chronic kidney disease, stage 3 unspecified Status: Chronic (7) Chronic anticoagulation: Code(s): 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 Status: Acute Plan Sepsis From pneumonia and diarrhea CT AP showed diarrhea disease and LLL Pneumonia Blood cultures Continue Meropenem, Doxy and Linezolid s/p IVF monitor Pneumonia LLL pneumonia per CT AP WBC 13.5 from 29.4 Continue above care Diarrhea No inflammation per CT Patient noted much improvement, however, of noted she has been on imodium since onset and thus has likely arrested the diarrhea continue above care and IVF JOSR Cr 2.26 from 6.19 From dehydration Continue IVF Iron deficiency anemia r/o GI bleed hb 8.4 down from 9, s/p 1 unit Isat 10, Venofer 1000/1000 Patient had a recent PE last month and was started on Eliquis Endoscopy shows mild gastritis Colonoscopy as outpatient GI following UTI urine culture positive for E coli and VRE Day 4/7 Meropenem and Day 3/7 Linezolid monitor PE Eliquis Venous doppler negative for DVT HTN titrate home meds with clinical course PAD s/p stent continue Home meds JANNY on CPAP Mild right hydronephrosis US reviewed Follow up with Urology outpatient DVT prophylaxis Eliquis on hold due to GI bleed Subjective Date/time seen: 02/19/25 10:40 Interval history: Interval Iza Gayle, a 69-year-old female with a complex medical history including: deep venous thrombosis and pulmonary embolism (2014), coronary artery disease with stent placement (2014), atrial fibrillation on Eliquis, chronic kidney disease, COPD, and retroperitoneal fibrosis. Her surgical history includes radical nephrectomy for left kidney cancer, splenectomy, and cholecystectomy. She was treated for a left lower lobe pneumonia in January of this year, with a recent chest X-ray showing no evidence of recurrence.Patient was admitted recently 01/13-01/28 diagnosed with PE. She is currently hospitalized for a urinary tract infection, for which she is receiving meropenem. Currently patient is been followed by GI due to diarrhea and low hemoglobin. Patient is also followed by Nephrology due to creatinine 5.12 02/18: Patient underwent EGD which shows mild diffuse gastritis without any findings to explain chronic blood loss. Patient still requires colonoscopy and prefers to do as outpatient. Cr is improving still not in baseline. Review of Systems Review of Systems: 12 systems were reviewed with pertinent positives and negatives per HPI. Except as documented in the HPI, all other systems were reviewed and are negative. All systems reviewed & are unremarkable except as noted in HPI and below Constitutional: Constitutional: Reports no additional constitutional complaints, Reports lethargy and Reports weakness ENT: Reports system reviewed and no additional complaints, except as documented Cardiovascular: Cardiovascular: Reports no additional cardiovascular complaints, Denies chest pain, Reports pedal edema and Reports leg edema Respiratory: Respiratory: Reports no additional respiratory complaints Gastrointestinal: Gastrointestinal: Reports no additional gastrointestinal complaints, Denies abdominal pain, Denies constipation and Reports diarrhea Genitourinary: Genitourinary: Reports as per HPI Musculoskeletal: Musculoskeletal: Reports myalgias and Reports stiffness Neurologic: Reports weakness Exam Narrative: Weight 71.4 kg BMI 27.9 Const: General: comfortable and no acute distress Other: Acutely ill-appearing, appears older than stated age, height weight proportionate HENMT: Face/Nose/Sinus: Normal nares present Other: Mucous membranes are dry, edentulous in upper and lower jaw, head is normocephalic atraumatic Eyes: General: appearance normal, both eyes and all related structures Other: Positive conjunctival pallor, no scleral icterus, pupils are equal and reactive with evidence of bilateral lens replacements Neck: Neck: supple Other: No JVD, no lymphadenopathy Resp: Effort & Inspection: normal respiratory effort Auscultation: clear to auscultation bilaterally Other: Clear to auscultation bilaterally, no increased work of breathing Cardio: Rate: regular rate Rhythm: regular rhythm Other: Regular rate, regular rhythm, 2+ bilateral radial and pedal pulses, no murmur GI: Inspection: non-distended Auscultation: normal bowel sounds Other: Soft, nontender, nondistended, positive bowel sounds, no organomegaly : Other: Depends in place Urinary Catheter: Urinary Catheter: patent and draining and urine cloudy Skin: General skin exam: normal color Other: Jaundice, underlying pallor, bruising to the tops of the feet bilaterally, skin of the lower extremities is tight and shiny Neuro: Speech: normal speech Other: Alert orient x4, speech is clear, no facial asymmetry Extrem: General: edema bilateral (lower extremities) and pedal edema Other: Marked edema bilateral lower extremities which is symmetrical, bruising to the dorsum of the feet bilaterally on the right side more to the toes on the left 8 just proximal to the toes, patient moves all extremities equally, 5/5 security patrol officer strength bilateral Psych: Mental Status: mental status grossly normal Speech and movement: Normal speech and movement present Affect: normal affect Objective Data Vital Signs Vital Signs: Vital Signs - 24 hr 02/18/25 13:10 02/18/25 13:54 02/18/25 14:00 Temperature 97.8 F 97.8 F Pulse Rate 78 72 75 Respiratory Rate 20 18 16 Blood Pressure 146/62 H 132/73 125/56 L Pulse Oximetry 95 100 95 Oxygen Delivery Room Air Nasal Cannula Oxygen Flow Rate 6 Fraction of Inspired Oxygen 02/18/25 14:04 02/18/25 14:14 02/18/25 20:00 Temperature Pulse Rate 74 72 90 Respiratory Rate 16 18 19 Blood Pressure 136/65 138/70 Pulse Oximetry 100 100 95 Oxygen Delivery Room Air Room Air Room Air Oxygen Flow Rate Fraction of Inspired Oxygen 21 02/18/25 20:34 02/18/25 20:34 02/18/25 20:40 Temperature Pulse Rate 83 Respiratory Rate 19 Blood Pressure Pulse Oximetry 95 98 Oxygen Delivery Room Air Oxygen Flow Rate 3 Fraction of Inspired Oxygen 21 02/18/25 20:40 02/18/25 20:47 02/18/25 22:00 Temperature 97.6 F Pulse Rate 80 90 80 Respiratory Rate 18 18 Blood Pressure 138/56 L Pulse Oximetry 96 Oxygen Delivery Oxygen Flow Rate Fraction of Inspired Oxygen 02/19/25 06:00 02/19/25 09:02 02/19/25 09:02 Temperature 97.7 F Pulse Rate 74 81 Respiratory Rate 18 20 Blood Pressure 119/57 L Pulse Oximetry 100 3 L Oxygen Delivery Room Air Oxygen Flow Rate Fraction of Inspired Oxygen 02/19/25 09:07 02/19/25 09:31 02/19/25 09:34 Temperature Pulse Rate 78 78 Respiratory Rate 20 Blood Pressure Pulse Oximetry Oxygen Delivery Room Air Oxygen Flow Rate Fraction of Inspired Oxygen Intake/Output Intake/Output: Intake & Output 02/16/25 02/17/25 02/18/25 02/19/25 23:59 23:59 23:59 23:59 Intake Total 4230 320 820 120 Output Total 1100 1175 4000 1600 Balance 8789 -686 -2053 -1133 Meds/Results Medications: Active Medications Generic Name Dose Route Start Last Admin Trade Name Freq PRN Reason Stop Dose Admin Acetaminophen 650 mg 02/11/25 20:54 02/15/25 12:09 Acetaminophen 325 Mg Tablet PO 650 mg Q4H PRN Administration Mild Pain (1-3) or Fever Hydrocodone Bitart/Acetaminophen 1 tab 02/11/25 20:54 02/15/25 21:59 Hydrocodone/Acetaminophen (*Crx) 5-325 Mg Tablet PO 1 tab Q4H PRN Administration Pain Rated 4-6 Albuterol/Ipratropium 3 ml 02/12/25 08:00 02/19/25 08:59 Ipratropium 0.5 Mg/Albuterol Sulfate 2.5 Mg Ampul.Neb 3 Ml INHALATION 3 ml Q6HRT ENEDELIA Administration Apixaban 5 mg 02/12/25 09:00 02/19/25 09:36 Apixaban 5 Mg Tablet PO 5 mg Q12HR ENEDELIA Administration Calcium Carbonate 200 mg 02/12/25 02:37 Calcium Carbonate (Tums) 500 Mg (200 Mg Elemental) PO QID PRN dyspepsia Calcium Carbonate 500 mg 02/14/25 12:00 02/19/25 09:36 Calcium Carbonate (Oscal) 500 Mg Tablet PO 500 mg TIDWM ENEDELIA Administration Carvedilol 25 mg 02/12/25 09:00 02/19/25 09:34 Carvedilol 25 Mg Tablet PO 25 mg Q12HR ENEDELIA Administration Clopidogrel Bisulfate 75 mg 02/12/25 09:00 02/19/25 09:34 Clopidogrel Bisulfate 75 Mg Tablet PO 75 mg QAM ENEDELIA Administration Felodipine 10 mg 02/12/25 09:00 02/19/25 09:35 Felodipine 5 Mg Tab Cr PO 10 mg QAM [facility] Administration Meropenem 500 mg in 100 mls @ 200 mls/hr 02/13/25 12:30 02/19/25 09:37 IVPB 02/19/25 21:29 200 mls/hr Q12HR ENEDELIA Administration Isosorbide Mononitrate 30 mg 02/12/25 09:00 02/19/25 09:36 Isosorbide Mononitrate 30 Mg Tab.Er.24h PO 30 mg DAILY [facility] Administration Levothyroxine Sodium 88 mcg 02/12/25 06:30 02/19/25 06:26 Levothyroxine Sodium 88 Mcg Tablet PO 88 mcg DAILY@0630 [facility] Administration Linezolid 600 mg 02/14/25 21:00 02/19/25 09:36 Linezolid 600 Mg Tablet PO 02/21/25 09:01 600 mg Q12HR ENEDELIA Administration Morphine Sulfate 2 mg 02/14/25 10:36 02/14/25 16:03 Morphine Sulfate (*Crx) 2 Mg/Ml Inj IV PUSH 2 mg Q4H PRN Administration Pain Rated 7-10 Nitroglycerin 0.4 mg 02/12/25 02:37 Nitroglycerin Sl 0.4 Mg Tablet SUBLINGUAL Q5M PRN Chest Pain Ondansetron HCl 4 mg 02/11/25 20:54 02/14/25 16:03 Ondansetron Inj 4 Mg/2 Ml Vial IV PUSH 4 mg Q4H PRN Administration Nausea Oxybutynin Chloride 15 mg 02/12/25 09:00 02/19/25 09:46 Oxybutynin Chloride Xl 5 Mg Tab.Er.24 PO 15 mg DAILY ENEDELIA Administration Pantoprazole Sodium 40 mg 02/12/25 02:55 Pantoprazole 40 Mg Tablet PO DAILY PRN acid reflux Promethazine HCl 12.5 mg 02/14/25 10:29 02/16/25 20:52 Promethazine Hcl 25 Mg/Ml Ampul IV PUSH 12.5 mg Q6H PRN Administration Nausea And Vomiting Ranolazine 500 mg 02/12/25 09:00 02/19/25 09:34 Ranolazine 500 Mg Tab.Er.12h PO 500 mg Q12HR ENEDELIA Administration Rosuvastatin Calcium 40 mg 02/12/25 09:00 02/19/25 09:35 Rosuvastatin 20 Mg Tablet PO 40 mg DAILY ENEDELIA Administration Sodium Chloride 10 ml 02/17/25 14:00 02/19/25 06:26 Saline Lock Flush IV PUSH 10 ml Q8HR ENEDELIA Administration Sodium Chloride 10 ml 02/17/25 11:13 Saline Lock Flush IV PUSH PRN PRN Flush Sodium Chloride 20 ml 02/17/25 11:13 Saline Lock Flush IV PUSH PRN PRN after blood draws Umeclidinium/Vilanterol 1 puff 02/12/25 08:00 02/19/25 08:59 Umeclidinium/Vilanterol 62.5-25 Mcg Ellipta INHALATION 1 puff DAILYRT ENEDELIA Administration Radiology Results: ITS Impressions Abdomen/Pelvis CT 02/11/25 19:34 IMPRESSION: Left basilar consolidation, an interval change from prior. Findings within the colon suggesting a diarrheal illness, for which clinical correlation is needed. Chest X-Ray 02/11/25 19:58 IMPRESSION: No focal infiltrate or effusion. Venous Doppler Study 02/12/25 11:17 IMPRESSION: 1: No lower extremity deep venous thrombosis. Renal Ultrasound 02/12/25 11:18 Impression: 1: Mild right hydronephrosis. Labs Labs: Laboratory Results - last 24 hr 02/18/25 02/19/25 12:00 09:08 WBC 13.5 H RBC 2.97 L Hgb 9.0 L Hct 28.6 L MCV 96.3 MCH 30.3 MCHC 31.5 L RDW 18.9 H Plt Count 338 MPV 10.4 Potassium 3.8 Quality VTE Prophylaxis VTE prophylaxis: pharmacologic ordered (Continue home Eliquis) Hospitalist [facility] Advance Care Plan I have confirmed that the patient's Advanced Care Plan is present, code status is documented, or surrogate decision maker is listed in patient medical record.: Yes Medication Reconciliation I have utilized all available resources to obtain, update and review the patients current medications (includes all prescriptions, OTC, herbals, cannabis, and nutritional supplements).: Yes
[2025-02-19 11:50] LABS: Alanine Aminotransferase 26 U/L (6-35); Alkaline Phosphatase 145 U/L (38-126); Anion Gap 12 mmol/L (4-12); Aspartate Amino Transferase 33 U/L (14-36); Bilirubin,Total 0.6 mg/dL (0.2-1.3); Blood Urea Nitrogen 20 mg/dL (7-17); Calcium 8.3 mg/dL (8.4-10.2); Carbon Dioxide 18 mmol/L (22-30); Chloride 107 mmol/L (98-107); Estimated CRCL calculation 24 ml/min; Estimated Glomerular Filt Rate 23; Glucose 97 mg/dL (65-110); Potassium 3.8 mmol/L (3.4-5.0); Sodium 137 mmol/L (137-145)
--- NOTE | 2025-02-19 11:51 | PCNWS ---
Weekly nutritional screen. Patient is tolerating current diet with adequate intake. No weight loss reported. No nutritional needs at this time.
--- NOTE | 2025-02-19 13:12 | P.PNNP_ITS ---
Progress Note: A&P Assessment and Plan (1) Acute kidney injury: Code(s): N17.9 - Acute kidney failure, unspecified Status: Acute Assessment and Plan: * improving * as evidenced by admission labs * multifactorial etiology: * prerenal factors (diarrhea) * urinary retention * early sepsis/infection (UTI + pneumonia) * evaluation to date noted: * renal u/s with mild right hydronephrosis * urology following. they see as an outpatient * bladder scan with evidence of urinary retention * urine electrolytes non prerenal * urine eosinophils negative * CPK normal * UA suggestive of infection * proteinuria noted * continue to follow trend of repeat labs and UOP (2) Chronic kidney disease, stage 3: Qualifiers: Chronic kidney disease stage 3 subtype: stage 3a (GFR 45-59) Qualified Code(s): N18.31 - Chronic kidney disease, stage 3a Code(s): N18.30 - Chronic kidney disease, stage 3 unspecified Status: Chronic Assessment and Plan: * baseline creatinine runs around 1.4 - 1.9mg/dl in the last few years * however, has been as low as 0.9 - 1.1mg/dl * secondary to solitary kidney (and associated loss of nephron mass), hypertension, and age-related change * possible new baseline creatinine (~ 1.9 - 2.1mg/dl)... (3) Anemia: Code(s): D64.9 - Anemia, unspecified Status: Acute Assessment and Plan: * noted drop in H/H by AM labs (02/13) * PRBC transfusion per protocol * anemia studies with iron deficiency * complicated by recent start of Eliquis for PE (was on hold but resumed) * GI following: * EGD -- mild diffuse gastritis without any findings * colonoscopy - deferred due to inadequate prep * follow trend of H/H (4) Urinary tract infection: Code(s): N39.0 - Urinary tract infection, site not specified Status: Acute Assessment and Plan: * admission UA highly suggestive * on antibiotic therapy * urine culture with E.coli and VRE (5) Pneumonia: Code(s): J18.9 - Pneumonia, unspecified organism Status: Acute Assessment and Plan: * as suggested by admission imaging * blood culture negative to date * on antibiotics (6) Bilateral lower extremity edema: Code(s): R60.0 - Localized edema Status: Acute Assessment and Plan: * noted on admission * related to JOSR/ARF(?) * possible venous insufficiency/circulation issues (has known PAD) * venous dopplers negative for DVT * related to proteinuria(?) * follow clinical exam (7) Acute urinary retention: Code(s): R33.8 - Other retention of urine Status: Acute Assessment and Plan: * as noted by renal ultrasound and bladders scans * calles catheter in place * Urology recommendations noted (8) Essential hypertension: Code(s): I10 - Essential (primary) hypertension Status: Chronic Assessment and Plan: * reasonable control * follow trend of hemodynamics Will continue to follow. L Subjective Date/time seen: 02/19/25 13:12 Interval history: Follow-up for acute kidney injury/acute renal failure on chronic kidney disease. Status post EGD yesterday with findings noted; renal function/creatinine continues to slowly improve as note by trend of labs; no new issues/events overnight or earlier this morning; no apparent distress noted at the time of my visit. Exam 2 Narrative: General: elderly (appears older than stated age) WD/WN female in NAD Heart: normal S1 and S2; no rub Lungs: clear to auscultation Abdomen: soft, nontender, nondistended, positive bowel sounds Extremities: no cyanosis or clubbing; 1+ edema Skin: warm and dry Objective Data Vital Signs Vital Signs: Vital Signs Temp Pulse Resp BP Pulse Ox O2 Del Method O2 Flow Rate 02/19/25 13:04 87 20 02/19/25 09:36 20 93 Room Air 02/19/25 09:34 78 02/19/25 09:31 Room Air 02/19/25 09:07 78 20 02/19/25 09:02 81 20 02/19/25 09:02 3 L Room Air 02/19/25 06:00 97.7 F 74 18 119/57 L 100 02/18/25 22:00 97.6 F 80 18 138/56 L 96 02/18/25 20:47 90 02/18/25 20:40 80 18 02/18/25 20:40 98 3 02/18/25 20:34 83 19 02/18/25 20:34 95 Room Air 02/18/25 20:00 90 19 95 Room Air Intake/Output Intake/Output: Intake & Output 02/16/25 02/17/25 02/18/25 02/19/25 23:59 23:59 23:59 23:59 Intake Total 4230 807 182 1671 Output Total 1100 1175 4000 2150 Balance 3130 -855 -3180 -710 Meds/Results Medications: Active Medications Generic Name Dose Route Start Last Admin Trade Name Freq PRN Reason Stop Dose Admin Acetaminophen 650 mg 02/11/25 20:54 02/15/25 12:09 Acetaminophen 325 Mg Tablet PO 650 mg Q4H PRN Administration Mild Pain (1-3) or Fever Hydrocodone Bitart/Acetaminophen 1 tab 02/11/25 20:54 02/15/25 21:59 Hydrocodone/Acetaminophen (*Crx) 5-325 Mg Tablet PO 1 tab Q4H PRN Administration Pain Rated 4-6 Albuterol/Ipratropium 3 ml 02/12/25 08:00 02/19/25 13:53 Ipratropium 0.5 Mg/Albuterol Sulfate 2.5 Mg Ampul.Neb 3 Ml INHALATION 3 ml Q6HRT ENEDELIA Administration Apixaban 5 mg 02/12/25 09:00 02/19/25 09:36 Apixaban 5 Mg Tablet PO 5 mg Q12HR ENEDELIA Administration Calcium Carbonate 200 mg 02/12/25 02:37 Calcium Carbonate (Tums) 500 Mg (200 Mg Elemental) PO QID PRN dyspepsia Calcium Carbonate 500 mg 02/14/25 12:00 02/19/25 16:19 Calcium Carbonate (Oscal) 500 Mg Tablet PO 500 mg TIDWM ENEDELIA Administration Carvedilol 25 mg 02/12/25 09:00 02/19/25 09:34 Carvedilol 25 Mg Tablet PO 25 mg Q12HR ENEDELIA Administration Clopidogrel Bisulfate 75 mg 02/12/25 09:00 02/19/25 09:34 Clopidogrel Bisulfate 75 Mg Tablet PO 75 mg QAM ENEDELIA Administration Felodipine 10 mg 02/12/25 09:00 02/19/25 09:35 Felodipine 5 Mg Tab Cr PO 10 mg QAM ENEDELIA Administration Meropenem 500 mg in 100 mls @ 200 mls/hr 02/13/25 12:30 02/19/25 10:07 IVPB 02/19/25 21:29 Infused Q12HR ENEDELIA Infusion Isosorbide Mononitrate 30 mg 02/12/25 09:00 02/19/25 09:36 Isosorbide Mononitrate 30 Mg Tab.Er.24h PO 30 mg DAILY ENEDELIA Administration Levothyroxine Sodium 88 mcg 02/12/25 06:30 02/19/25 06:26 Levothyroxine Sodium 88 Mcg Tablet PO 88 mcg DAILY@0630 ENEDELIA Administration Linezolid 600 mg 02/14/25 21:00 02/19/25 09:36 Linezolid 600 Mg Tablet PO 02/21/25 09:01 600 mg Q12HR ENEDELIA Administration Morphine Sulfate 2 mg 02/14/25 10:36 02/14/25 16:03 Morphine Sulfate (*Crx) 2 Mg/Ml Inj IV PUSH 2 mg Q4H PRN Administration Pain Rated 7-10 Nitroglycerin 0.4 mg 02/12/25 02:37 Nitroglycerin Sl 0.4 Mg Tablet SUBLINGUAL Q5M PRN Chest Pain Ondansetron HCl 4 mg 02/11/25 20:54 02/14/25 16:03 Ondansetron Inj 4 Mg/2 Ml Vial IV PUSH 4 mg Q4H PRN Administration Nausea Oxybutynin Chloride 15 mg 02/12/25 09:00 02/19/25 09:46 Oxybutynin Chloride Xl 5 Mg Tab.Er.24 PO 15 mg DAILY ENEDELIA Administration Pantoprazole Sodium 40 mg 02/12/25 02:55 Pantoprazole 40 Mg Tablet PO DAILY PRN acid reflux Promethazine HCl 12.5 mg 02/14/25 10:29 02/16/25 20:52 Promethazine Hcl 25 Mg/Ml Ampul IV PUSH 12.5 mg Q6H PRN Administration Nausea And Vomiting Ranolazine 500 mg 02/12/25 09:00 02/19/25 09:34 Ranolazine 500 Mg Tab.Er.12h PO 500 mg Q12HR ENEDELIA Administration Rosuvastatin Calcium 40 mg 02/12/25 09:00 02/19/25 09:35 Rosuvastatin 20 Mg Tablet PO 40 mg DAILY ENEDELIA Administration Sodium Chloride 10 ml 02/17/25 14:00 02/19/25 13:30 Saline Lock Flush IV PUSH 10 ml Q8HR ENEDELIA Administration Sodium Chloride 10 ml 02/17/25 11:13 Saline Lock Flush IV PUSH PRN PRN Flush Sodium Chloride 20 ml 02/17/25 11:13 Saline Lock Flush IV PUSH PRN PRN after blood draws Umeclidinium/Vilanterol 1 puff 02/12/25 08:00 02/19/25 08:59 Umeclidinium/Vilanterol 62.5-25 Mcg Ellipta INHALATION 1 puff DAILYRT ENEDELIA Administration Radiology Results: ITS Impressions Abdomen/Pelvis CT 02/11/25 19:34 IMPRESSION: Left basilar consolidation, an interval change from prior. Findings within the colon suggesting a diarrheal illness, for which clinical correlation is needed. Chest X-Ray 02/11/25 19:58 IMPRESSION: No focal infiltrate or effusion. Venous Doppler Study 02/12/25 11:17 IMPRESSION: 1: No lower extremity deep venous thrombosis. Renal Ultrasound 02/12/25 11:18 Impression: 1: Mild right hydronephrosis. Labs Labs: Laboratory Tests 02/19/25 09:08 02/19/25 10:43 Calcium 8.3 L Total Bilirubin 0.6 AST 33 ALT 26 Alkaline Phosphatase 145 H Total Protein 7.0 Albumin 3.0 L Microbiology 02/17/25 20:02 Stool Escherichia coli Shiga Toxins - Final 02/17/25 20:02 Stool Salmonella/Shigella Culture - Final 02/17/25 20:02 Stool Campylobacter Antigen Assay - Final
[2025-02-19] MEDS: LOPERAMIDE HCL 2 MG CAPSULE PO (17:04)
[2025-02-20] VITALS (13 sets, daily range): BP systolic 108–130; BP diastolic 47–62; PULSE 74–83; RESP 14–20; TEMP 36.6–36.9; O2SAT 94–100
[2025-02-20 05:34] LABS: Hematocrit 25.4 % (37.0-47.0); Hemoglobin 8.1 g/dL (12.0-15.0); Mean Corpuscular HGB Conc 31.9 g/dl (32-36); Mean Corpuscular Volume 97.3 fl (80-100); Mean Platelet Volume 10.2 fl (7.4-10.4); Platelet Count Result 280 k/mm3 (150-375); Red Blood Count 2.61 M/mm3 (4.2-5.4); Red Cell Distribution Width 18.7 % (11.5-14.5); White Blood Count 13.1 K/mm3 (4.5-10.0)
[2025-02-20 05:52] LABS: Alanine Aminotransferase 17 U/L (6-35); Albumin Level 2.2 g/dL (3.5-5.1); Alkaline Phosphatase 93 U/L (38-126); Anion Gap 7 mmol/L (4-12); Aspartate Amino Transferase 23 U/L (14-36); Bilirubin,Total 0.6 mg/dL (0.2-1.3); Blood Urea Nitrogen 22 mg/dL (7-17); Calcium 8.1 mg/dL (8.4-10.2); Carbon Dioxide 18 mmol/L (22-30); Chloride 110 mmol/L (98-107); Estimated CRCL calculation 26 ml/min; Estimated Glomerular Filt Rate 26; Glucose 69 mg/dL (65-110); Potassium 3.9 mmol/L (3.4-5.0); Sodium 135 mmol/L (137-145)
[2025-02-20] MEDS: LEVOTHYROXINE SODIUM 88 MCG TABLET PO (06:02)
[2025-02-20] MEDS: SALINE LOCK FLUSH 10 ML IV PUSH ×3 (06:02→22:11)
[2025-02-20] MEDS: IPRATROPIUM 0.5 MG/ALBUTEROL SULFATE 2.5 MG AMPUL.NEB 3 ML INHALATION ×3 (08:14→21:00)
[2025-02-20] MEDS: UMECLIDINIUM/VILANTEROL 62.5-25 MCG ELLIPTA 1 PUFF INHALATION (08:14)
--- NOTE | 2025-02-20 08:45 | P.PNIM_ITS ---
Progress Note: A&P Assessment and Plan (1) Sepsis: Qualifiers: Acute renal failure type: unspecified Sepsis acute organ dysfunction status: with acute organ dysfunction Sepsis type: sepsis due to unspecified or ganism Severe sepsis acute organ dysfunction type: acute renal failure Severe sepsis shock status: without septic shock Qualified Code(s): A41.9 - Sepsis, unspecified organism; R65.20 - Severe sepsis without septic shock; N17.9 - Acute kidney failure, unspecified Code(s): A41.9 - Sepsis, unspecified organism Status: Acute (2) Diarrhea: Qualifiers: Diarrhea type: infectious Qualified Code(s): A09 - Infectious gastroenteritis and colitis, unspecified Code(s): R19.7 - Diarrhea, unspecified Status: Acute (3) Acute respiratory failure with hypoxia: Code(s): J96.01 - Acute respiratory failure with hypoxia Status: Acute (4) Acute UTI: Code(s): N39.0 - Urinary tract infection, site not specified Status: Acute (5) Acute kidney injury: Code(s): N17.9 - Acute kidney failure, unspecified Status: Acute (6) Chronic kidney disease, stage 3: Qualifiers: Chronic kidney disease stage 3 subtype: stage 3a (GFR 45-59) Qualified Code(s): N18.31 - Chronic kidney disease, stage 3a Code(s): N18.30 - Chronic kidney disease, stage 3 unspecified Status: Chronic (7) Chronic anticoagulation: Code(s): Z79.01 - manager long term care (current) use of anticoagulants Status: Acute Plan Sepsis From pneumonia and diarrhea CT AP showed diarrhea disease and LLL Pneumonia Blood cultures Continue Meropenem, Doxy and Linezolid s/p IVF monitor Pneumonia LLL pneumonia per CT AP WBC 13.5 from 29.4 Continue above care Diarrhea No inflammation per CT Patient noted much improvement, however, of noted she has been on imodium since onset and thus has likely arrested the diarrhea continue above care and IVF Order stool studies JOSR on CKD Improving Cr 1.91 from 6.19 From dehydration Continue IVF Iron deficiency anemia r/o GI bleed hb 8.4 down from 9, s/p 1 unit Isat 10, Venofer 1000/1000 Patient had a recent PE last month and was started on Eliquis Endoscopy shows mild gastritis Colonoscopy as outpatient GI following UTI urine culture positive for E coli and VRE Linezolid until 02/21 Completed meropenem monitor PE Eliquis Venous doppler negative for DVT HTN titrate home meds with clinical course PAD s/p stent continue Home meds JANNY on CPAP Mild right hydronephrosis US reviewed Follow up with Urology outpatient DVT prophylaxis Eliquis on hold due to GI bleed Subjective Date/time seen: 02/20/25 08:45 Interval history: Interval hx Iza Gayle, a 69-year-old female with a complex medical history including: deep venous thrombosis and pulmonary embolism (2014), coronary artery disease with stent placement (2014), atrial fibrillation on Eliquis, chronic kidney disease, COPD, and retroperitoneal fibrosis. Her surgical history includes radical nephrectomy for left kidney cancer, splenectomy, and cholecystectomy. She was treated for a left lower lobe pneumonia in January of this year, with a recent chest X-ray showing no evidence of recurrence.Patient was admitted recently 01/13-01/28 diagnosed with PE. She is currently hospitalized lower extremity swelling and urinary tract infection, for which she is receiving meropenem. .Currently patient is been followed by GI due to diarrhea and low hemoglobin. Patient is also followed by Nephrology due to creatinine 5.12. Patient underwent EGD which shows mild diffuse gastritis without any findings to explain chronic blood loss. Patient still requires colonoscopy and prefers to do as outpatient. Cr is improving still not in baseline. 02/20: Patient hemoglobin is stable around 8. Patient currently on Eliquis 5 mg b.i.d.. Patient still complains of diarrhea. Ordered stool studies including C diff Review of Systems Review of Systems: 12 systems were reviewed with pertinent positives and negatives per HPI. Except as documented in the HPI, all other systems were reviewed and are negative. All systems reviewed & are unremarkable except as noted in HPI and below Constitutional: Constitutional: Reports no additional constitutional complaints, Reports lethargy and Reports weakness ENT: Reports system reviewed and no additional complaints, except as documented Cardiovascular: Cardiovascular: Reports no additional cardiovascular complaints, Denies chest pain, Reports pedal edema and Reports leg edema Respiratory: Respiratory: Reports no additional respiratory complaints Gastrointestinal: Gastrointestinal: Reports no additional gastrointestinal complaints, Denies abdominal pain, Denies constipation and Reports diarrhea Genitourinary: Genitourinary: Reports as per HPI Musculoskeletal: Musculoskeletal: Reports myalgias and Reports stiffness Neurologic: Reports weakness Exam Narrative: Weight 71.4 kg BMI 27.9 Const: General: comfortable and no acute distress Other: Acutely ill-appearing, appears older than stated age, height weight proportionate HENMT: Face/Nose/Sinus: Normal nares present Other: Mucous membranes are dry, edentulous in upper and lower jaw, head is normocephalic atraumatic Eyes: General: appearance normal, both eyes and all related structures Other: Positive conjunctival pallor, no scleral icterus, pupils are equal and reactive with evidence of bilateral lens replacements Neck: Neck: supple Other: No JVD, no lymphadenopathy Resp: Effort & Inspection: normal respiratory effort Auscultation: clear to auscultation bilaterally Other: Clear to auscultation bilaterally, no increased work of breathing Cardio: Rate: regular rate Rhythm: regular rhythm Other: Regular rate, regular rhythm, 2+ bilateral radial and pedal pulses, no murmur GI: Inspection: non-distended Auscultation: normal bowel sounds Other: Soft, nontender, nondistended, positive bowel sounds, no organomegaly : Other: Depends in place Urinary Catheter: Urinary Catheter: patent and draining and urine cloudy Skin: General skin exam: normal color Other: Jaundice, underlying pallor, bruising to the tops of the feet bilaterally, skin of the lower extremities is tight and shiny Neuro: Speech: normal speech Other: Alert orient x4, speech is clear, no facial asymmetry Extrem: General: edema bilateral (lower extremities) and pedal edema Other: Marked edema bilateral lower extremities which is symmetrical, bruising to the dorsum of the feet bilaterally on the right side more to the toes on the left 8 just proximal to the toes, patient moves all extremities equally, 5/5 terminal gauger strength bilateral Psych: Mental Status: mental status grossly normal Speech and movement: Normal speech and movement present Affect: normal affect Objective Data Vital Signs Vital Signs: Vital Signs - 24 hr 02/19/25 09:02 02/19/25 09:02 02/19/25 09:07 Temperature Pulse Rate 81 78 Respiratory Rate 20 20 Blood Pressure Pulse Oximetry 3 L Oxygen Delivery Room Air Oxygen Flow Rate 02/19/25 09:31 02/19/25 09:34 02/19/25 09:36 Temperature Pulse Rate 78 Respiratory Rate 20 Blood Pressure Pulse Oximetry 93 Oxygen Delivery Room Air Room Air Oxygen Flow Rate 02/19/25 13:54 02/19/25 14:00 02/19/25 14:03 Temperature 99.1 F Pulse Rate 87 80 86 Respiratory Rate 20 15 20 Blood Pressure 125/52 L Pulse Oximetry 94 Oxygen Delivery Oxygen Flow Rate 02/19/25 20:00 02/19/25 20:51 02/19/25 21:29 Temperature Pulse Rate 79 73 Respiratory Rate 20 Blood Pressure Pulse Oximetry 95 94 Oxygen Delivery Nasal Cannula Room Air Oxygen Flow Rate 4 02/19/25 21:29 02/19/25 21:40 02/19/25 22:00 Temperature 98.0 F Pulse Rate 73 74 79 Respiratory Rate 20 20 18 Blood Pressure 122/51 L Pulse Oximetry 92 Oxygen Delivery Oxygen Flow Rate 02/20/25 06:00 02/20/25 08:15 02/20/25 08:16 Temperature 98.0 F Pulse Rate 75 74 Respiratory Rate 18 20 Blood Pressure 125/47 L Pulse Oximetry 94 94 Oxygen Delivery Room Air Oxygen Flow Rate 02/20/25 08:22 Temperature Pulse Rate 75 Respiratory Rate 20 Blood Pressure Pulse Oximetry Oxygen Delivery Oxygen Flow Rate Intake/Output Intake/Output: Intake & Output 02/17/25 02/18/25 02/19/25 02/20/25 23:59 23:59 23:59 23:59 Intake Total 208 669 0612 Output Total 1175 4000 2150 600 [facility] -855 -3180 -610 -600 Meds/Results Medications: Active Medications Generic Name Dose Route Start Last Admin Trade Name Freq PRN Reason Stop Dose Admin Acetaminophen 650 mg 02/11/25 20:54 02/15/25 12:09 Acetaminophen 325 Mg Tablet PO 650 mg Q4H PRN Administration Mild Pain (1-3) or Fever Hydrocodone Bitart/Acetaminophen 1 tab 02/11/25 20:54 02/15/25 21:59 Hydrocodone/Acetaminophen (*Crx) 5-325 Mg Tablet PO 1 tab Q4H PRN Administration Pain Rated 4-6 Albuterol/Ipratropium 3 ml 02/12/25 08:00 02/20/25 08:14 Ipratropium 0.5 Mg/Albuterol Sulfate 2.5 Mg Ampul.Neb 3 Ml INHALATION 3 ml Q6HRT ENEDELIA Administration Apixaban 5 mg 02/12/25 09:00 02/19/25 20:51 Apixaban 5 Mg Tablet PO 5 mg Q12HR ENEDELIA Administration Calcium Carbonate 200 mg 02/12/25 02:37 Calcium Carbonate (Tums) 500 Mg (200 Mg Elemental) PO QID PRN dyspepsia Calcium Carbonate 500 mg 02/14/25 12:00 02/19/25 16:19 Calcium Carbonate (Oscal) 500 Mg Tablet PO 500 mg TIDWM ENEDELIA Administration Carvedilol 25 mg 02/12/25 09:00 02/19/25 20:51 Carvedilol 25 Mg Tablet PO 25 mg Q12HR ENEDELIA Administration Clopidogrel Bisulfate 75 mg 02/12/25 09:00 02/19/25 09:34 Clopidogrel Bisulfate 75 Mg Tablet PO 75 mg QAM [facility] Administration Felodipine 10 mg 02/12/25 09:00 02/19/25 09:35 Felodipine 5 Mg Tab Cr PO 10 mg QAM [facility] Administration Isosorbide Mononitrate 30 mg 02/12/25 09:00 02/19/25 09:36 Isosorbide Mononitrate 30 Mg Tab.Er.24h PO 30 mg DAILY [facility] Administration Levothyroxine Sodium 88 mcg 02/12/25 06:30 02/20/25 06:02 Levothyroxine Sodium 88 Mcg Tablet PO 88 mcg DAILY@0630 [facility] Administration Linezolid 600 mg 02/14/25 21:00 02/19/25 20:53 Linezolid 600 Mg Tablet PO 02/21/25 09:01 600 mg Q12HR ENEDELIA Administration Morphine Sulfate 2 mg 02/14/25 10:36 02/14/25 16:03 Morphine Sulfate (*Crx) 2 Mg/Ml Inj IV PUSH 2 mg Q4H PRN Administration Pain Rated 7-10 Nitroglycerin 0.4 mg 02/12/25 02:37 Nitroglycerin Sl 0.4 Mg Tablet SUBLINGUAL Q5M PRN Chest Pain Ondansetron HCl 4 mg 02/11/25 20:54 02/14/25 16:03 Ondansetron Inj 4 Mg/2 Ml Vial IV PUSH 4 mg Q4H PRN Administration Nausea Oxybutynin Chloride 15 mg 02/12/25 09:00 02/19/25 09:46 Oxybutynin Chloride Xl 5 Mg Tab.Er.24 PO 15 mg DAILY ENEDELIA Administration Pantoprazole Sodium 40 mg 02/12/25 02:55 Pantoprazole 40 Mg Tablet PO DAILY PRN acid reflux Promethazine HCl 12.5 mg 02/14/25 10:29 02/16/25 20:52 Promethazine Hcl 25 Mg/Ml Ampul IV PUSH 12.5 mg Q6H PRN Administration Nausea And Vomiting Ranolazine 500 mg 02/12/25 09:00 02/19/25 20:52 Ranolazine 500 Mg Tab.Er.12h PO 500 mg Q12HR ENEDELIA Administration Rosuvastatin Calcium 40 mg 02/12/25 09:00 02/19/25 09:35 Rosuvastatin 20 Mg Tablet PO 40 mg DAILY ENEDELIA Administration Sodium Chloride 10 ml 02/17/25 14:00 02/20/25 06:02 Saline Lock Flush IV PUSH 10 ml Q8HR ENEDELIA Administration Sodium Chloride 10 ml 02/17/25 11:13 Saline Lock Flush IV PUSH PRN PRN Flush Sodium Chloride 20 ml 02/17/25 11:13 Saline Lock Flush IV PUSH PRN PRN after blood draws Umeclidinium/Vilanterol 1 puff 02/12/25 08:00 02/20/25 08:14 Umeclidinium/Vilanterol 62.5-25 Mcg Ellipta INHALATION 1 puff DAILYRT ENEDELIA Administration Radiology Results: ITS Impressions Abdomen/Pelvis CT 02/11/25 19:34 IMPRESSION: Left basilar consolidation, an interval change from prior. Findings within the colon suggesting a diarrheal illness, for which clinical correlation is needed. Chest X-Ray 02/11/25 19:58 IMPRESSION: No focal infiltrate or effusion. Venous Doppler Study 02/12/25 11:17 IMPRESSION: 1: No lower extremity deep venous thrombosis. Renal Ultrasound 02/12/25 11:18 Impression: 1: Mild right hydronephrosis. Labs Labs: Laboratory Results - last 24 hr 02/19/25 02/19/25 02/20/25 09:08 10:43 04:53 WBC 13.5 H 13.1 H RBC 2.97 L 2.61 L Hgb 9.0 L 8.1 L Hct 28.6 L 25.4 L MCV 96.3 97.3 MCH 30.3 31.0 MCHC 31.5 L 31.9 L RDW 18.9 H 18.7 H Plt Count 338 280 MPV 10.4 10.2 Sodium 137 135 L Potassium 3.8 3.9 Chloride 107 110 H Carbon Dioxide 18 L 18 L Anion Gap 12 7 BUN 20 H 22 H Creatinine 2.11 H 1.91 H Estim Creat Clear Calc 24 26 Estimated GFR 23 L 26 L Glucose 97 69 Calcium 8.3 L 8.1 L Total Bilirubin 0.6 0.6 AST 33 23 ALT 26 17 Alkaline Phosphatase 145 H 93 Total Protein 7.0 5.0 L Albumin 3.0 L 2.2 L Quality VTE Prophylaxis VTE prophylaxis: pharmacologic ordered (Continue home Eliquis) Hospitalist [facility] Advance Care Plan I have confirmed that the patient's Advanced Care Plan is present, code status is documented, or surrogate decision maker is listed in patient medical record.: Yes Medication Reconciliation I have utilized all available resources to obtain, update and review the patients current medications (includes all prescriptions, OTC, herbals, cannabis, and nutritional supplements).: Yes
[2025-02-20] MEDS: oxyBUTYnin CHLORIDE XL 5 MG TAB.ER.24 15 MG PO (08:47)
[2025-02-20] MEDS: ROSUVASTATIN 20 MG TABLET 40 MG PO (08:48)
[2025-02-20] MEDS: LINEZOLID 600 MG TABLET PO ×2 (08:48→22:09)
[2025-02-20] MEDS: carvediloL 25 MG TABLET PO ×2 (08:48→22:10)
[2025-02-20] MEDS: ISOSORBIDE MONONITRATE 30 MG TAB.ER.24H PO (08:49)
[2025-02-20] MEDS: CALCIUM CARBONATE (OSCAL) 500 MG TABLET PO ×3 (08:49→16:53)
[2025-02-20] MEDS: CLOPIDOGREL BISULFATE 75 MG TABLET PO (08:49)
[2025-02-20] MEDS: FELODIPINE 5 MG TAB CR 10 MG PO (08:49)
[2025-02-20] MEDS: RANOLAZINE 500 MG TAB.ER.12H PO ×2 (08:49→22:09)
[2025-02-20] MEDS: APIXABAN 5 MG TABLET PO ×2 (08:50→22:10)
--- NOTE | 2025-02-20 13:28 | P.PNNP_ITS ---
Progress Note: A&P Assessment and Plan (1) Acute kidney injury: Code(s): N17.9 - Acute kidney failure, unspecified Status: Acute Assessment and Plan: * improving * as evidenced by admission labs * multifactorial etiology: * prerenal factors (diarrhea) * urinary retention * early sepsis/infection (UTI + pneumonia) * evaluation to date noted: * renal u/s with mild right hydronephrosis * urology following. they see as an outpatient * bladder scan with evidence of urinary retention * urine electrolytes non prerenal * urine eosinophils negative * CPK normal * UA suggestive of infection * proteinuria noted * continue to follow trend of repeat labs and UOP (2) Chronic kidney disease, stage 3: Qualifiers: Chronic kidney disease stage 3 subtype: stage 3a (GFR 45-59) Qualified Code(s): N18.31 - Chronic kidney disease, stage 3a Code(s): N18.30 - Chronic kidney disease, stage 3 unspecified Status: Chronic Assessment and Plan: * baseline creatinine runs around 1.4 - 1.9mg/dl in the last few years * however, has been as low as 0.9 - 1.1mg/dl * secondary to solitary kidney (and associated loss of nephron mass), hypertension, and age-related change * possible new baseline creatinine (~ 1.9 - 2.1mg/dl)... (3) Anemia: Code(s): D64.9 - Anemia, unspecified Status: Acute Assessment and Plan: * noted drop in H/H by AM labs (02/13) * PRBC transfusion per protocol * anemia studies with iron deficiency * complicated by recent start of Eliquis for PE (was on hold but resumed) * GI following: * EGD -- mild diffuse gastritis without any findings * colonoscopy - deferred due to inadequate prep * follow trend of H/H (4) Urinary tract infection: Code(s): N39.0 - Urinary tract infection, site not specified Status: Acute Assessment and Plan: * admission UA highly suggestive * on antibiotic therapy * urine culture with E.coli and VRE (5) Pneumonia: Code(s): J18.9 - Pneumonia, unspecified organism Status: Acute Assessment and Plan: * as suggested by admission imaging * blood culture negative to date * on antibiotics (6) Bilateral lower extremity edema: Code(s): R60.0 - Localized edema Status: Acute Assessment and Plan: * noted on admission * related to JOSR/ARF(?) * possible venous insufficiency/circulation issues (has known PAD) * venous dopplers negative for DVT * related to proteinuria(?) * follow clinical exam (7) Acute urinary retention: Code(s): R33.8 - Other retention of urine Status: Acute Assessment and Plan: * as noted by renal ultrasound and bladders scans * calles catheter in place * Urology recommendations noted (8) Essential hypertension: Code(s): I10 - Essential (primary) hypertension Status: Chronic Assessment and Plan: * reasonable control * follow trend of hemodynamics Will continue to follow. L Subjective Date/time seen: 02/20/25 13:28 Interval history: Follow-up for acute kidney injury/acute renal failure on chronic kidney disease. Renal function/creatinine continues to slowly improve as noted by trend of labs in association with reasonable urine output; H/H appears relatively stable with noted restart of Eliquis; no other acute issues/complaints voiced at the time of my visit. Exam 2 Narrative: General: elderly (appears older than stated age) WD/WN female in NAD Heart: normal S1 and S2; no rub Lungs: clear to auscultation Abdomen: soft, nontender, nondistended, positive bowel sounds Extremities: no cyanosis or clubbing; 1+ edema Skin: warm and intact Objective Data Vital Signs Vital Signs: Vital Signs Temp Pulse Resp BP Pulse Ox O2 Del Method O2 Flow Rate 02/20/25 13:25 97.8 F 82 14 108/62 100 02/20/25 08:50 20 94 Room Air 02/20/25 08:48 76 02/20/25 08:22 75 20 02/20/25 08:16 94 Room Air 02/20/25 08:15 74 20 02/20/25 06:00 98.0 F 75 18 125/47 L 94 02/19/25 22:00 98.0 F 79 18 122/51 L 92 02/19/25 21:40 74 20 02/19/25 21:29 73 20 02/19/25 21:29 73 20 94 Room Air 02/19/25 20:51 79 02/19/25 20:00 95 Nasal Cannula 4 Intake/Output Intake/Output: Intake & Output 02/17/25 02/18/25 02/19/2525 23:59 23:59 23:59 23:59 Intake Total 880 470 9318 600 Output Total 1175 4000 2150 600 Balance -855 -3180 -610 0 Meds/Results Medications: Active Medications Generic Name Dose Route Start Last Admin Trade Name Freq PRN Reason Stop Dose Admin Acetaminophen 650 mg 02/11/25 20:54 02/15/25 12:09 Acetaminophen 325 Mg Tablet PO 650 mg Q4H PRN Administration Mild Pain (1-3) or Fever Hydrocodone Bitart/Acetaminophen 1 tab 02/11/25 20:54 02/15/25 21:59 Hydrocodone/Acetaminophen (*Crx) 5-325 Mg Tablet PO 1 tab Q4H PRN Administration Pain Rated 4-6 Albuterol/Ipratropium 3 ml 02/12/25 08:00 02/20/25 13:55 Ipratropium 0.5 Mg/Albuterol Sulfate 2.5 Mg Ampul.Neb 3 Ml INHALATION 3 ml Q6HRT ENEDELIA Administration Apixaban 5 mg 02/12/25 09:00 02/20/25 08:50 Apixaban 5 Mg Tablet PO 5 mg Q12HR ENEDELIA Administration Calcium Carbonate 200 mg 02/12/25 02:37 Calcium Carbonate (Tums) 500 Mg (200 Mg Elemental) PO QID PRN dyspepsia Calcium Carbonate 500 mg 02/14/25 12:00 02/20/25 11:48 Calcium Carbonate (Oscal) 500 Mg Tablet PO 500 mg TIDWM ENEDELIA Administration Carvedilol 25 mg 02/12/25 09:00 02/20/25 08:48 Carvedilol 25 Mg Tablet PO 25 mg Q12HR ENEDELIA Administration Clopidogrel Bisulfate 75 mg 02/12/25 09:00 02/20/25 08:49 Clopidogrel Bisulfate 75 Mg Tablet PO 75 mg QAM ENEDELIA Administration Felodipine 10 mg 02/12/25 09:00 02/20/25 08:49 Felodipine 5 Mg Tab Cr PO 10 mg QAM ENEDELIA Administration Isosorbide Mononitrate 30 mg 02/12/25 09:00 02/20/25 08:49 Isosorbide Mononitrate 30 Mg Tab.Er.24h PO 30 mg DAILY ENEDELIA Administration Levothyroxine Sodium 88 mcg 02/12/25 06:30 02/20/25 06:02 Levothyroxine Sodium 88 Mcg Tablet PO 88 mcg DAILY@0630 ENEDELIA Administration Linezolid 600 mg 02/14/25 21:00 02/20/25 08:48 Linezolid 600 Mg Tablet PO 02/21/25 09:01 600 mg Q12HR ENEDELIA Administration Morphine Sulfate 2 mg 02/14/25 10:36 02/14/25 16:03 Morphine Sulfate (*Crx) 2 Mg/Ml Inj IV PUSH 2 mg Q4H PRN Administration Pain Rated 7-10 Nitroglycerin 0.4 mg 02/12/25 02:37 Nitroglycerin Sl 0.4 Mg Tablet SUBLINGUAL Q5M PRN Chest Pain Ondansetron HCl 4 mg 02/11/25 20:54 02/14/25 16:03 Ondansetron Inj 4 Mg/2 Ml Vial IV PUSH 4 mg Q4H PRN Administration Nausea Oxybutynin Chloride 15 mg 02/12/25 09:00 02/20/25 08:47 Oxybutynin Chloride Xl 5 Mg Tab.Er.24 PO 15 mg DAILY ENEDELIA Administration Pantoprazole Sodium 40 mg 02/12/25 02:55 Pantoprazole 40 Mg Tablet PO DAILY PRN acid reflux Promethazine HCl 12.5 mg 02/14/25 10:29 02/16/25 20:52 Promethazine Hcl 25 Mg/Ml Ampul IV PUSH 12.5 mg Q6H PRN Administration Nausea And Vomiting Ranolazine 500 mg 02/12/25 09:00 02/20/25 08:49 Ranolazine 500 Mg Tab.Er.12h PO 500 mg Q12HR ENEDELIA Administration Rosuvastatin Calcium 40 mg 02/12/25 09:00 02/20/25 08:48 Rosuvastatin 20 Mg Tablet PO 40 mg DAILY ENEDELIA Administration Sodium Chloride 10 ml 02/17/25 14:00 02/20/25 13:09 Saline Lock Flush IV PUSH 10 ml Q8HR ENEDELIA Administration Sodium Chloride 10 ml 02/17/25 11:13 Saline Lock Flush IV PUSH PRN PRN Flush Sodium Chloride 20 ml 02/17/25 11:13 Saline Lock Flush IV PUSH PRN PRN after blood draws Umeclidinium/Vilanterol 1 puff 02/12/25 08:00 02/20/25 08:14 Umeclidinium/Vilanterol 62.5-25 Mcg Ellipta INHALATION 1 puff DAILYRT ENEDELIA Administration Radiology Results: ITS Impressions Abdomen/Pelvis CT 02/11/25 19:34 IMPRESSION: Left basilar consolidation, an interval change from prior. Findings within the colon suggesting a diarrheal illness, for which clinical correlation is needed. Chest X-Ray 02/11/25 19:58 IMPRESSION: No focal infiltrate or effusion. Venous Doppler Study 02/12/25 11:17 IMPRESSION: 1: No lower extremity deep venous thrombosis. Renal Ultrasound 02/12/25 11:18 Impression: 1: Mild right hydronephrosis. Labs Labs: Laboratory Tests 02/20/25 04:53 02/20/25 04:53 Calcium 8.1 L Total Bilirubin 0.6 AST 23 ALT 17 Alkaline Phosphatase 93 Total Protein 5.0 L Albumin 2.2 L Microbiology 02/17/25 20:02 Stool Escherichia coli Shiga Toxins - Final 02/17/25 20:02 Stool Salmonella/Shigella Culture - Final 02/17/25 20:02 Stool Campylobacter Antigen Assay - Final
[2025-02-21] VITALS (13 sets, daily range): BP systolic 107–136; BP diastolic 45–52; PULSE 75–84; RESP 14–16; TEMP 36.6–37.2; O2SAT 93–98
[2025-02-21] MEDS: IPRATROPIUM 0.5 MG/ALBUTEROL SULFATE 2.5 MG AMPUL.NEB 3 ML INHALATION ×4 (02:14→19:50)
[2025-02-21 05:36] LABS: Hematocrit 22.7 % (37.0-47.0); Hemoglobin 7.1 g/dL (12.0-15.0); Mean Corpuscular HGB Conc 31.3 g/dl (32-36); Mean Corpuscular Hemoglobin 30.7 pg (26-34); Mean Corpuscular Volume 98.3 fl (80-100); Mean Platelet Volume 10.1 fl (7.4-10.4); Platelet Count Result 232 k/mm3 (150-375); Red Blood Count 2.31 M/mm3 (4.2-5.4); Red Cell Distribution Width 18.6 % (11.5-14.5); White Blood Count 10.9 K/mm3 (4.5-10.0)
[2025-02-21 05:51] LABS: Alanine Aminotransferase 15 U/L (6-35); Albumin Level 2.1 g/dL (3.5-5.1); Alkaline Phosphatase 86 U/L (38-126); Anion Gap 7 mmol/L (4-12); Aspartate Amino Transferase 20 U/L (14-36); Bilirubin,Total 0.4 mg/dL (0.2-1.3); Blood Urea Nitrogen 24 mg/dL (7-17); Calcium 8.2 mg/dL (8.4-10.2); Carbon Dioxide 19 mmol/L (22-30); Chloride 108 mmol/L (98-107); Estimated CRCL calculation 27 ml/min; Estimated Glomerular Filt Rate 26; Glucose 76 mg/dL (65-110); Potassium 3.6 mmol/L (3.4-5.0); Sodium 134 mmol/L (137-145)
[2025-02-21] MEDS: SALINE LOCK FLUSH 10 ML IV PUSH ×3 (06:12→22:04)
[2025-02-21] MEDS: LEVOTHYROXINE SODIUM 88 MCG TABLET PO (06:12)
[2025-02-21] MEDS: UMECLIDINIUM/VILANTEROL 62.5-25 MCG ELLIPTA 1 PUFF INHALATION (07:43)
[2025-02-21] MEDS: PANTOPRAZOLE 40 MG TABLET PO (08:32)
[2025-02-21] MEDS: APIXABAN 5 MG TABLET PO ×2 (08:32→22:04)
[2025-02-21] MEDS: CALCIUM CARBONATE (OSCAL) 500 MG TABLET PO ×3 (08:32→17:15)
[2025-02-21] MEDS: carvediloL 25 MG TABLET PO ×2 (08:32→22:04)
[2025-02-21] MEDS: CLOPIDOGREL BISULFATE 75 MG TABLET PO (08:33)
[2025-02-21] MEDS: FELODIPINE 5 MG TAB CR 10 MG PO (08:33)
[2025-02-21] MEDS: oxyBUTYnin CHLORIDE XL 5 MG TAB.ER.24 15 MG PO (08:33)
[2025-02-21] MEDS: ROSUVASTATIN 20 MG TABLET 40 MG PO (08:33)
[2025-02-21] MEDS: ISOSORBIDE MONONITRATE 30 MG TAB.ER.24H PO (08:33)
[2025-02-21] MEDS: RANOLAZINE 500 MG TAB.ER.12H PO ×2 (08:33→22:04)
[2025-02-21] MEDS: LINEZOLID 600 MG TABLET PO (08:33)
--- NOTE | 2025-02-21 09:08 | PCOTNOTE ---
The patient treatment was not able to be completed. Patient states she is going home today. Patient was provided and HEP and reports she will continue them at home. Will plan to continue treatment per plan of care.
--- NOTE | 2025-02-21 09:30 | P.PNNP_ITS ---
Progress Note: A&P Assessment and Plan (1) Acute kidney injury: Code(s): N17.9 - Acute kidney failure, unspecified Status: Acute Assessment and Plan: * improving * as evidenced by admission labs * multifactorial etiology: * prerenal factors (diarrhea) * urinary retention * early sepsis/infection (UTI + pneumonia) * evaluation to date noted: * renal u/s with mild right hydronephrosis * urology following. they see as an outpatient * bladder scan with evidence of urinary retention * urine electrolytes non prerenal * urine eosinophils negative * CPK normal * UA suggestive of infection * proteinuria noted * continue to follow trend of repeat labs and UOP (2) Chronic kidney disease, stage 3: Qualifiers: Chronic kidney disease stage 3 subtype: stage 3a (GFR 45-59) Qualified Code(s): N18.31 - Chronic kidney disease, stage 3a Code(s): N18.30 - Chronic kidney disease, stage 3 unspecified Status: Chronic Assessment and Plan: * baseline creatinine runs around 1.4 - 1.9mg/dl in the last few years * however, has been as low as 0.9 - 1.1mg/dl * secondary to solitary kidney (and associated loss of nephron mass), hypertension, and age-related change * possible new baseline creatinine (~ 1.9 - 2.1mg/dl)... (3) Anemia: Code(s): D64.9 - Anemia, unspecified Status: Acute Assessment and Plan: * noted drop in H/H by AM labs (02/13) * PRBC transfusion per protocol * anemia studies with iron deficiency * complicated by recent start of Eliquis for PE (was on hold but resumed) * GI following: * EGD -- mild diffuse gastritis without any findings * colonoscopy - deferred due to inadequate prep * follow trend of H/H (4) Urinary tract infection: Code(s): N39.0 - Urinary tract infection, site not specified Status: Acute Assessment and Plan: * admission UA highly suggestive * on antibiotic therapy * urine culture with E.coli and VRE (5) Pneumonia: Code(s): J18.9 - Pneumonia, unspecified organism Status: Acute Assessment and Plan: * as suggested by admission imaging * blood culture negative to date * on antibiotics (6) Bilateral lower extremity edema: Code(s): R60.0 - Localized edema Status: Acute Assessment and Plan: * noted on admission * related to JOSR/ARF(?) * possible venous insufficiency/circulation issues (has known PAD) * venous dopplers negative for DVT * related to proteinuria(?) * follow clinical exam (7) Acute urinary retention: Code(s): R33.8 - Other retention of urine Status: Acute Assessment and Plan: * as noted by renal ultrasound and bladders scans * calles catheter in place * Urology recommendations noted (8) Essential hypertension: Code(s): I10 - Essential (primary) hypertension Status: Chronic Assessment and Plan: * reasonable control * follow trend of hemodynamics Will continue to follow. Subjective Date/time seen: 02/21/25 09:30 Interval history: Follow-up for acute kidney injury/acute renal failure on chronic kidney disease. Renal function/creatinine seems relatively stable in the last 24 hours; H/H noted be low again by morning labs; no other acute issues/events overnight or earlier this morning reported. Exam Narrative: General: elderly (appears older than stated age) WD/WN female in NAD Heart: normal S1 and S2; no rub Lungs: clear to auscultation Abdomen: soft, nontender, nondistended, positive bowel sounds Extremities: no cyanosis or clubbing; 1+ edema Skin: no rash Objective Data Vital Signs Vital Signs: Vital Signs Temp Pulse Resp BP Pulse Ox O2 Del Method 02/21/25 09:24 97.8 F 79 16 110/49 L 93 02/21/25 08:00 Room Air 02/21/25 07:50 84 16 02/21/25 07:41 75 16 02/21/25 07:41 95 Room Air 02/21/25 06:30 98.8 F 75 16 136/52 L 98 02/21/25 02:24 78 16 02/21/25 02:14 75 16 02/20/25 22:10 82 02/20/25 21:43 98.5 F 83 16 130/59 L 94 02/20/25 21:09 82 16 02/20/25 21:00 78 16 02/20/25 20:00 Room Air Intake/Output Intake/Output: Intake & Output 02/18/25 02/19/25 02/20/25 02/21/25 23:59 23:59 23:59 23:59 Intake Total 820 1540 1460 780 Output Total 4000 2150 1050 650 Balance -3180 -610 410 130 Meds/Results Medications: Active Medications Generic Name Dose Route Start Last Admin Trade Name Freq PRN Reason Stop Dose Admin Acetaminophen 650 mg 02/11/25 20:54 02/15/25 12:09 Acetaminophen 325 Mg Tablet PO 650 mg Q4H PRN Administration Mild Pain (1-3) or Fever Hydrocodone Bitart/Acetaminophen 1 tab 02/11/25 20:54 02/15/25 21:59 Hydrocodone/Acetaminophen (*Crx) 5-325 Mg Tablet PO 1 tab Q4H PRN Administration Pain Rated 4-6 Albuterol/Ipratropium 3 ml 02/12/25 08:00 02/21/25 13:47 Ipratropium 0.5 Mg/Albuterol Sulfate 2.5 Mg Ampul.Neb 3 Ml INHALATION 3 ml Q6HRT ENEDELIA Administration Apixaban 5 mg 02/12/25 09:00 02/21/25 08:32 Apixaban 5 Mg Tablet PO 5 mg Q12HR ENEDELIA Administration Calcium Carbonate 200 mg 02/12/25 02:37 Calcium Carbonate (Tums) 500 Mg (200 Mg Elemental) PO QID PRN dyspepsia Calcium Carbonate 500 mg 02/14/25 12:00 02/21/25 12:28 Calcium Carbonate (Oscal) 500 Mg Tablet PO 500 mg TIDWM ENEDELIA Administration Carvedilol 25 mg 02/12/25 09:00 02/21/25 08:32 Carvedilol 25 Mg Tablet PO 25 mg Q12HR ENEDELIA Administration Clopidogrel Bisulfate 75 mg 02/12/25 09:00 02/21/25 08:33 Clopidogrel Bisulfate 75 Mg Tablet PO 75 mg QAM ENEDELIA Administration Felodipine 10 mg 02/12/25 09:00 02/21/25 08:33 Felodipine 5 Mg Tab Cr PO 10 mg QAM ENEDELIA Administration Isosorbide Mononitrate 30 mg 02/12/25 09:00 02/21/25 08:33 Isosorbide Mononitrate 30 Mg Tab.Er.24h PO 30 mg DAILY ENEDELIA Administration Levothyroxine Sodium 88 mcg 02/12/25 06:30 02/21/25 06:12 Levothyroxine Sodium 88 Mcg Tablet PO 88 mcg DAILY@0630 ENEDELIA Administration Miscellaneous Information 1 each 02/20/25 00:01 Post Needs To Be Renewed Or It Will Automatically Discontinue. XX 03/22/25 00:00 CLARIFY ENEDELIA Morphine Sulfate 2 mg 02/14/25 10:36 02/14/25 16:03 Morphine Sulfate (*Crx) 2 Mg/Ml Inj IV PUSH 2 mg Q4H PRN Administration Pain Rated 7-10 Nitroglycerin 0.4 mg 02/12/25 02:37 Nitroglycerin Sl 0.4 Mg Tablet SUBLINGUAL Q5M PRN Chest Pain Ondansetron HCl 4 mg 02/11/25 20:54 02/14/25 16:03 Ondansetron Inj 4 Mg/2 Ml Vial IV PUSH 4 mg Q4H PRN Administration Nausea Oxybutynin Chloride 15 mg 02/12/25 09:00 02/21/25 08:33 Oxybutynin Chloride Xl 5 Mg Tab.Er.24 PO 15 mg DAILY ENEDELIA Administration Pantoprazole Sodium 40 mg 02/12/25 02:55 02/21/25 08:32 Pantoprazole 40 Mg Tablet PO 40 mg DAILY PRN Administration acid reflux Promethazine HCl 12.5 mg 02/14/25 10:29 02/16/25 20:52 Promethazine Hcl 25 Mg/Ml Ampul IV PUSH 12.5 mg Q6H PRN Administration Nausea And Vomiting Ranolazine 500 mg 02/12/25 09:00 02/21/25 08:33 Ranolazine 500 Mg Tab.Er.12h PO 500 mg Q12HR ENEDELIA Administration Rosuvastatin Calcium 40 mg 02/12/25 09:00 02/21/25 08:33 Rosuvastatin 20 Mg Tablet PO 40 mg DAILY ENEDELIA Administration Sodium Chloride 10 ml 02/17/25 14:00 02/21/25 06:12 Saline Lock Flush IV PUSH 10 ml Q8HR ENEDELIA Administration Sodium Chloride 10 ml 02/17/25 11:13 Saline Lock Flush IV PUSH PRN PRN Flush Sodium Chloride 20 ml 02/17/25 11:13 Saline Lock Flush IV PUSH PRN PRN after blood draws Umeclidinium/Vilanterol 1 puff 02/12/25 08:00 02/21/25 07:43 Umeclidinium/Vilanterol 62.5-25 Mcg Ellipta INHALATION 1 puff DAILYRT ENEDELIA Administration Radiology Results: ITS Impressions Abdomen/Pelvis CT 02/11/25 19:34 IMPRESSION: Left basilar consolidation, an interval change from prior. Findings within the colon suggesting a diarrheal illness, for which clinical correlation is needed. Chest X-Ray 02/11/25 19:58 IMPRESSION: No focal infiltrate or effusion. Venous Doppler Study 02/12/25 11:17 IMPRESSION: 1: No lower extremity deep venous thrombosis. Renal Ultrasound 02/12/25 11:18 Impression: 1: Mild right hydronephrosis. Labs Labs: Laboratory Tests 02/21/25 05:17 WBC 10.9 H Hgb 7.1 L Hct 22.7 L Plt Count 232 Sodium 134 L Potassium 3.6 Chloride 108 H Carbon Dioxide 19 L Anion Gap 7 BUN 24 H Creatinine 1.90 H Estim Creat Clear Calc 27 Estimated GFR 26 L Glucose 76 Calcium 8.2 L Total Bilirubin 0.4 AST 20 ALT 15 Alkaline Phosphatase 86 Total Protein 5.0 L Albumin 2.1 L
--- NOTE | 2025-02-21 12:54 | PCPTNOTE ---
Patient adamantly refused treatment this session. Patient reported she is going home today and does not want to do therapy. Educated patient on the importance of working with therapy. Patient continued to refuse.
--- NOTE | 2025-02-21 14:11 | P.PNIM_ITS ---
Progress Note: A&P Assessment and Plan (1) Sepsis: Qualifiers: Acute renal failure type: unspecified Sepsis acute organ dysfunction status: with acute organ dysfunction Sepsis type: sepsis due to unspecified or ganism Severe sepsis acute organ dysfunction type: acute renal failure Severe sepsis shock status: without septic shock Qualified Code(s): A41.9 - Sepsis, unspecified organism; R65.20 - Severe sepsis without septic shock; N17.9 - Acute kidney failure, unspecified Code(s): A41.9 - Sepsis, unspecified organism Status: Acute (2) Diarrhea: Qualifiers: Diarrhea type: infectious Qualified Code(s): A09 - Infectious gastroenteritis and colitis, unspecified Code(s): R19.7 - Diarrhea, unspecified Status: Acute (3) Acute respiratory failure with hypoxia: Code(s): J96.01 - Acute respiratory failure with hypoxia Status: Acute (4) Acute UTI: Code(s): N39.0 - Urinary tract infection, site not specified Status: Acute (5) Acute kidney injury: Code(s): N17.9 - Acute kidney failure, unspecified Status: Acute (6) Chronic kidney disease, stage 3: Qualifiers: Chronic kidney disease stage 3 subtype: stage 3a (GFR 45-59) Qualified Code(s): N18.31 - Chronic kidney disease, stage 3a Code(s): N18.30 - Chronic kidney disease, stage 3 unspecified Status: Chronic (7) 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 Status: Acute Plan Sepsis From pneumonia and diarrhea CT AP showed diarrhea disease and LLL Pneumonia Blood cultures Continue Meropenem, Doxy and Linezolid s/p IVF monitor Pneumonia LLL pneumonia per CT AP WBC 13.5 from 29.4 Continue above care Diarrhea No inflammation per CT Patient noted much improvement, however, of noted she has been on imodium since onset and thus has likely arrested the diarrhea continue above care and IVF Order stool studies JOSR on CKD Improving Cr 1.91 from 6.19 From dehydration Continue IVF Iron deficiency anemia r/o GI bleed hb 8.4 down from 9, s/p 1 unit Isat 10, Venofer 1000/1000 Patient had a recent PE last month and was started on Eliquis Endoscopy shows mild gastritis Colonoscopy as outpatient GI following UTI urine culture positive for E coli and VRE Linezolid until 02/21 Completed meropenem monitor PE Eliquis Venous doppler negative for DVT HTN titrate home meds with clinical course PAD s/p stent continue Home meds JANNY on CPAP Mild right hydronephrosis US reviewed Follow up with Urology outpatient DVT prophylaxis Eliquis on hold due to GI bleed Subjective Date/time seen: 02/21/25 14:11 Interval history: Patient hemoglobin dropped to 7.1. Ordered H&H at 2:00 p.m. Review of Systems Review of Systems: 12 systems were reviewed with pertinent positives and negatives per HPI. Except as documented in the HPI, all other systems were reviewed and are negative. All systems reviewed & are unremarkable except as noted in HPI and below Constitutional: Constitutional: Reports no additional constitutional complaints, Reports lethargy and Reports weakness ENT: Reports system reviewed and no additional complaints, except as doc umented Cardiovascular: Cardiovascular: Reports no additional cardiovascular complaints, Denies chest pain, Reports pedal edema and Reports leg edema Respiratory: Respiratory: Reports no additional respiratory complaints Gastrointestinal: Gastrointestinal: Reports no additional gastrointestinal complaints, Denies abdominal pain, Denies constipation and Reports diarrhea Genitourinary: Genitourinary: Reports as per HPI Musculoskeletal: Musculoskeletal: Reports myalgias and Reports stiffness Neurologic: Reports weakness Exam Narrative: Weight 71.4 kg BMI 27.9 Const: General: comfortable and no acute distress Other: Acutely ill-appearing, appears older than stated age, height weight proportionate HENMT: Face/Nose/Sinus: Normal nares present Other: Mucous membranes are dry, edentulous in upper and lower jaw, head is normocephalic atraumatic Eyes: General: appearance normal, both eyes and all related structures Other: Positive conjunctival pallor, no scleral icterus, pupils are equal and reactive with evidence of bilateral lens replacements Neck: Neck: supple Other: No JVD, no lymphadenopathy Resp: Effort & Inspection: normal respiratory effort Auscultation: clear to auscultation bilaterally Other: Clear to auscultation bilaterally, no increased work of breathing Cardio: Rate: regular rate Rhythm: regular rhythm Other: Regular rate, regular rhythm, 2+ bilateral radial and pedal pulses, no murmur GI: Inspection: non-distended Auscultation: normal bowel sounds Other: Soft, nontender, nondistended, positive bowel sounds, no organomegaly : Other: Depends in place Urinary Catheter: Urinary Catheter: patent and draining and urine cloudy Skin: General skin exam: normal color Other: Jaundice, underlying pallor, bruising to the tops of the feet bilaterally, skin of the lower extremities is tight and shiny Neuro: Speech: normal speech Other: Alert orient x4, speech is clear, no facial asymmetry Extrem: General: edema bilateral (lower extremities) and pedal edema Other: Marked edema bilateral lower extremities which is symmetrical, bruising to the dorsum of the feet bilaterally on the right side more to the toes on the left 8 just proximal to the toes, patient moves all extremities equally, 5/5 floor director strength bilateral Psych: Mental Status: mental status grossly normal Speech and movement: Normal speech and movement present Affect: normal affect Objective Data Vital Signs Vital Signs: Vital Signs - 24 hr 02/20/25 20:00 02/20/25 21:00 02/20/25 21:09 Temperature Pulse Rate 78 82 Respiratory Rate 16 16 Blood Pressure Pulse Oximetry Oxygen Delivery Room Air 02/20/25 21:43 02/20/25 22:10 02/21/25 02:14 Temperature 98.5 F Pulse Rate 83 82 75 Respiratory Rate 16 16 Blood Pressure 130/59 L Pulse Oximetry 94 Oxygen Delivery 02/21/25 02:24 02/21/25 06:30 02/21/25 07:41 Temperature 98.8 F Pulse Rate 78 75 Respiratory Rate 16 16 Blood Pressure 136/52 L Pulse Oximetry 98 95 Oxygen Delivery Room Air 02/21/25 07:41 02/21/25 07:50 02/21/25 08:00 Temperature Pulse Rate 75 84 Respiratory Rate 16 16 Blood Pressure Pulse Oximetry Oxygen Delivery Room Air 02/21/25 08:32 02/21/25 13:44 02/21/25 13:49 Temperature 97.8 F Pulse Rate 80 79 76 Respiratory Rate 16 16 Blood Pressure 110/49 L Pulse Oximetry 93 Oxygen Delivery 02/21/25 13:57 Temperature Pulse Rate 80 Respiratory Rate 16 Blood Pressure Pulse Oximetry Oxygen Delivery Intake/Output Intake/Output: Intake & Output 02/18/25 02/19/25 02/20/25 02/21/25 23:59 23:59 23:59 23:59 Intake Total 820 1540 1460 440 Output Total 4000 2150 1050 650 Balance -3180 -610 410 -210 Meds/Results Medications: Active Medications Generic Name Dose Route Start Last Admin Trade Name Freq PRN Reason Stop Dose Admin Acetaminophen 650 mg 02/11/25 20:54 02/15/25 12:09 Acetaminophen 325 Mg Tablet PO 650 mg Q4H PRN Administration Mild Pain (1-3) or Fever Hydrocodone Bitart/Acetaminophen 1 tab 02/11/25 20:54 02/15/25 21:59 Hydrocodone/Acetaminophen (*Crx) 5-325 Mg Tablet PO 1 tab Q4H PRN Administration Pain Rated 4-6 Albuterol/Ipratropium 3 ml 02/12/25 08:00 02/21/25 13:47 Ipratropium 0.5 Mg/Albuterol Sulfate 2.5 Mg Ampul.Neb 3 Ml INHALATION 3 ml Q6HRT ENEDELIA Administration Apixaban 5 mg 02/12/25 09:00 02/21/25 08:32 Apixaban 5 Mg Tablet PO 5 mg Q12HR ENEDELIA Administration Calcium Carbonate 200 mg 02/12/25 02:37 Calcium Carbonate (Tums) 500 Mg (200 Mg Elemental) PO QID PRN dyspepsia Calcium Carbonate 500 mg 02/14/25 12:00 02/21/25 12:28 Calcium Carbonate (Oscal) 500 Mg Tablet PO 500 mg TIDWM ENEDELIA Administration Carvedilol 25 mg 02/12/25 09:00 02/21/25 08:32 Carvedilol 25 Mg Tablet PO 25 mg Q12HR ENEDELIA Administration Clopidogrel Bisulfate 75 mg 02/12/25 09:00 02/21/25 08:33 Clopidogrel Bisulfate 75 Mg Tablet PO 75 mg QAM ENEDLEIA Administration Felodipine 10 mg 02/12/25 09:00 02/21/25 08:33 Felodipine 5 Mg Tab Cr PO 10 mg QAM ENEDELIA Administration Isosorbide Mononitrate 30 mg 02/12/25 09:00 02/21/25 08:33 Isosorbide Mononitrate 30 Mg Tab.Er.24h PO 30 mg DAILY ENEDELIA Administration Levothyroxine Sodium 88 mcg 02/12/25 06:30 02/21/25 06:12 Levothyroxine Sodium 88 Mcg Tablet PO 88 mcg DAILY@0630 ENEDELIA Administration Miscellaneous Information 1 each 02/20/25 00:01 [place] Needs To Be Renewed Or It Will Automatically Discontinue. XX 03/22/25 00:00 CLARIFY ENEDELIA Morphine Sulfate 2 mg 02/14/25 10:36 02/14/25 16:03 Morphine Sulfate (*Crx) 2 Mg/Ml Inj IV PUSH 2 mg Q4H PRN Administration Pain Rated 7-10 Nitroglycerin 0.4 mg 02/12/25 02:37 Nitroglycerin Sl 0.4 Mg Tablet SUBLINGUAL Q5M PRN Chest Pain Ondansetron HCl 4 mg 02/11/25 20:54 02/14/25 16:03 Ondansetron Inj 4 Mg/2 Ml Vial IV PUSH 4 mg Q4H PRN Administration Nausea Oxybutynin Chloride 15 mg 02/12/25 09:00 02/21/25 08:33 Oxybutynin Chloride Xl 5 Mg Tab.Er.24 PO 15 mg DAILY ENEDELIA Administration Pantoprazole Sodium 40 mg 02/12/25 02:55 02/21/25 08:32 Pantoprazole 40 Mg Tablet PO 40 mg DAILY PRN Administration acid reflux Promethazine HCl 12.5 mg 02/14/25 10:29 02/16/25 20:52 Promethazine Hcl 25 Mg/Ml Ampul IV PUSH 12.5 mg Q6H PRN Administration Nausea And Vomiting Ranolazine 500 mg 02/12/25 09:00 02/21/25 08:33 Ranolazine 500 Mg Tab.Er.12h PO 500 mg Q12HR ENEDELIA Administration Rosuvastatin Calcium 40 mg 02/12/25 09:00 02/21/25 08:33 Rosuvastatin 20 Mg Tablet PO 40 mg DAILY ENEDELIA Administration Sodium Chloride 10 ml 02/17/25 14:00 02/21/25 06:12 Saline Lock Flush IV PUSH 10 ml Q8HR ENEDELIA Administration Sodium Chloride 10 ml 02/17/25 11:13 Saline Lock Flush IV PUSH PRN PRN Flush Sodium Chloride 20 ml 02/17/25 11:13 Saline Lock Flush IV PUSH PRN PRN after blood draws Umeclidinium/Vilanterol 1 puff 02/12/25 08:00 02/21/25 07:43 Umeclidinium/Vilanterol 62.5-25 Mcg Ellipta INHALATION 1 puff DAILYRT ENEDELIA Administration Radiology Results: ITS Impressions Abdomen/Pelvis CT 02/11/25 19:34 IMPRESSION: Left basilar consolidation, an interval change from prior. Findings within the colon suggesting a diarrheal illness, for which clinical correlation is needed. Chest X-Ray 02/11/25 19:58 IMPRESSION: No focal infiltrate or effusion. Venous Doppler Study 02/12/25 11:17 IMPRESSION: 1: No lower extremity deep venous thrombosis. Renal Ultrasound 02/12/25 11:18 Impression: 1: Mild right hydronephrosis. Labs Labs: Laboratory Results - last 24 hr 02/21/25 05:17 WBC 10.9 H RBC 2.31 L Hgb 7.1 L Hct 22.7 L MCV 98.3 MCH 30.7 MCHC 31.3 L RDW 18.6 H Plt Count 232 MPV 10.1 Sodium 134 L Potassium 3.6 Chloride 108 H Carbon Dioxide 19 L Anion Gap 7 BUN 24 H Creatinine 1.90 H Estim Creat Clear Calc 27 Estimated GFR 26 L Glucose 76 Calcium 8.2 L Total Bilirubin 0.4 AST 20 ALT 15 Alkaline Phosphatase 86 Total Protein 5.0 L Albumin 2.1 L Quality VTE Prophylaxis VTE prophylaxis: pharmacologic ordered (Continue home Eliquis) Hospitalist [facility] Advance Care Plan I have confirmed that the patient's Advanced Care Plan is present, code status is documented, or surrogate decision maker is listed in patient medical record.: Yes Medication Reconciliation I have utilized all available resources to obtain, update and review the patients current medications (includes all prescriptions, OTC, herbals, cannabis, and nutritional supplements).: Yes
[2025-02-21 14:13] LABS: Hematocrit 24.2 % (37.0-47.0); Hemoglobin 7.6 g/dL (12.0-15.0)
[2025-02-22] VITALS (18 sets, daily range): BP systolic 108–130; BP diastolic 50–56; PULSE 77–89; RESP 14–17; TEMP 36.5–37.1; O2SAT 94–100
[2025-02-22] MEDS: IPRATROPIUM 0.5 MG/ALBUTEROL SULFATE 2.5 MG AMPUL.NEB 3 ML INHALATION ×4 (01:44→20:34)
[2025-02-22] MEDS: LEVOTHYROXINE SODIUM 88 MCG TABLET PO (06:22)
[2025-02-22] MEDS: SALINE LOCK FLUSH 10 ML IV PUSH ×3 (06:22→21:37)
[2025-02-22 06:26] LABS: Hematocrit 22.1 % (37.0-47.0); Mean Corpuscular HGB Conc 31.2 g/dl (32-36); Mean Corpuscular Hemoglobin 30.5 pg (26-34); Mean Corpuscular Volume 97.8 fl (80-100); Mean Platelet Volume 10.1 fl (7.4-10.4); Platelet Count Result 225 k/mm3 (150-375); Red Blood Count 2.26 M/mm3 (4.2-5.4); Red Cell Distribution Width 18.4 % (11.5-14.5); White Blood Count 11.8 K/mm3 (4.5-10.0)
[2025-02-22 06:33] LABS: Hemoglobin 6.9 g/dL (12.0-15.0)
[2025-02-22 06:41] LABS: Alanine Aminotransferase 14 U/L (6-35); Albumin Level 2.2 g/dL (3.5-5.1); Alkaline Phosphatase 92 U/L (38-126); Anion Gap 5 mmol/L (4-12); Aspartate Amino Transferase 21 U/L (14-36); Bilirubin,Total 0.5 mg/dL (0.2-1.3); Blood Urea Nitrogen 23 mg/dL (7-17); Calcium 8.8 mg/dL (8.4-10.2); Carbon Dioxide 21 mmol/L (22-30); Chloride 109 mmol/L (98-107); Estimated CRCL calculation 25 ml/min; Estimated Glomerular Filt Rate 24; Glucose 72 mg/dL (65-110); Potassium 3.8 mmol/L (3.4-5.0); Sodium 135 mmol/L (137-145)
--- NOTE | 2025-02-22 07:49 | PM.IMPN ---
Progress Note: A&P Assessment and Plan (1) Sepsis: Qualifiers: Acute renal failure type: unspecified Sepsis acute organ dysfunction status: with acute organ dysfunction Sepsis type: sepsis due to unspecified organism Severe sepsis acute organ dysfunction type: acute renal failure Severe sepsis shock status: without septic shock Qualified Code(s): A41.9 - Sepsis, unspecified organism; R65.20 - Severe sepsis without septic shock; N17.9 - Acute kidney failure, unspecified Code(s): A41.9 - Sepsis, unspecified organism Status: Acute (2) Diarrhea: Qualifiers: Diarrhea type: infectious Qualified Code(s): A09 - Infectious gastroenteritis and colitis, unspecified Code(s): R19.7 - Diarrhea, unspecified Status: Acute (3) Acute respiratory failure with hypoxia: Code(s): J96.01 - Acute respiratory failure with hypoxia Status: Acute (4) Acute UTI: Code(s): N39.0 - Urinary tract infection, site not specified Status: Acute (5) Acute kidney injury: Code(s): N17.9 - Acute kidney failure, unspecified Status: Acute (6) Chronic kidney disease, stage 3: Qualifiers: Chronic kidney disease stage 3 subtype: stage 3a (GFR 45-59) Qualified Code(s): N18.31 - Chronic kidney disease, stage 3a Code(s): N18.30 - Chronic kidney disease, stage 3 unspecified Status: Chronic (7) 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 Status: Acute Plan Sepsis From pneumonia and diarrhea CT AP showed diarrhea disease and LLL Pneumonia Blood cultures Continue Meropenem, Doxy and Linezolid s/p IVF monitor Pneumonia LLL pneumonia per CT AP WBC 13.5 from 29.4 Continue above care Diarrhea No inflammation per CT Patient noted much improvement, however, of noted she has been on imodium since onset and thus has likely arrested the diarrhea continue above care and IVF Order stool studies JOSR on CKD Improving Cr 1.91 from 6.19 From dehydration Continue IVF Iron deficiency anemia r/o GI bleed 0 02/22 hemoglobin 6.9 Transfuse 1 unit PRBC Consulted Oncology Patient had a recent PE last month and was started on Eliquis Endoscopy shows mild gastritis Colonoscopy as outpatient GI following UTI urine culture positive for E coli and VRE Linezolid until 02/21 Completed meropenem monitor PE Eliquis Venous doppler negative for DVT HTN titrate home meds with clinical course PAD s/p stent continue Home meds JANNY on CPAP Mild right hydronephrosis US reviewed Follow up with Urology outpatient DVT prophylaxis Eliquis on hold due to GI bleed Subjective Date/time seen: 02/22/25 07:49 Interval history: Patient hemoglobin is 6.9. Will transfuse 1 unit PRBC. Consulted Oncology. Review of Systems Review of Systems: 12 systems were reviewed with pertinent positives and negatives per HPI. Except as documented in the HPI, all other systems were reviewed and are negative. All systems reviewed & are unremarkable except as noted in HPI and below Constitutional: Constitutional: Reports no additional constitutional complaints, Reports lethargy and Reports weakness ENT: Reports system reviewed and no additional complaints, except as documented Cardiovascular: Cardiovascular: Reports no additional cardiovascular complaints, Denies chest pain, Reports pedal edema and Reports leg edema Respiratory: Respiratory: Reports no additional respiratory complaints Gastrointestinal: Gastrointestinal: Reports no additional gastrointestinal complaints, Denies abdominal pain, Denies constipation and Reports diarrhea Genitourinary: Genitourinary: Reports as per HPI Musculoskeletal: Musculoskeletal: Reports myalgias and Reports stiffness Neurologic: Reports weakness Exam Narrative: Weight 71.4 kg BMI 27.9 Const: General: comfortable and no acute distress Other: Acutely ill-appearing, appears older than stated age, height weight proportionate HENMT: Face/Nose/Sinus: Normal nares present Other: Mucous membranes are dry, edentulous in upper and lower jaw, head is normocephalic atraumatic Eyes: General: appearance normal, both eyes and all related structures Other: Positive conjunctival pallor, no scleral icterus, pupils are equal and reactive with evidence of bilateral lens replacements Neck: Neck: supple Other: No JVD, no lymphadenopathy Resp: Effort & Inspection: normal respiratory effort Auscultation: clear to auscultation bilaterally Other: Clear to auscultation bilaterally, no increased work of breathing Cardio: Rate: regular rate Rhythm: regular rhythm Other: Regular rate, regular rhythm, 2+ bilateral radial and pedal pulses, no murmur GI: Inspection: non-distended Auscultation: normal bowel sounds Other: Soft, nontender, nondistended, positive bowel sounds, no organomegaly : Other: Depends in place Urinary Catheter: Urinary Catheter: patent and draining and urine cloudy Skin: General skin exam: normal color Other: Jaundice, underlying pallor, bruising to the tops of the feet bilaterally, skin of the lower extremities is tight and shiny Neuro: Speech: normal speech Other: Alert orient x4, speech is clear, no facial asymmetry Extrem: General: edema bilateral (lower extremities) and pedal edema Other: Marked edema bilateral lower extremities which is symmetrical, bruising to the dorsum of the feet bilaterally on the right side more to the toes on the left 8 just proximal to the toes, patient moves all extremities equally, 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 Psych: Mental Status: mental status grossly normal Speech and movement: Normal speech and movement present Affect: normal affect Objective Data Vital Signs Vital Signs: Vital Signs - 24 hr 02/21/25 07:50 02/21/25 08:00 02/21/25 08:32 Temperature Pulse Rate 84 80 Respiratory Rate 16 Blood Pressure Pulse Oximetry Oxygen Delivery Room Air 02/21/25 13:44 02/21/25 13:49 02/21/25 13:57 Temperature 97.8 F Pulse Rate 79 76 80 Respiratory Rate 16 16 16 Blood Pressure 110/49 L Pulse Oximetry 93 Oxygen Delivery 02/21/25 19:52 02/21/25 19:52 02/21/25 20:00 Temperature Pulse Rate 80 Respiratory Rate 14 Blood Pressure Pulse Oximetry 98 Oxygen Delivery Room Air Room Air 02/21/25 20:02 02/21/25 21:42 02/21/25 22:04 Temperature 98.9 F Pulse Rate 81 80 80 Respiratory Rate 14 14 Blood Pressure 107/45 L Pulse Oximetry 96 Oxygen Delivery 02/22/25 01:45 02/22/25 01:55 02/22/25 06:44 Temperature 98.6 F Pulse Rate 79 80 78 Respiratory Rate 14 14 14 Blood Pressure 108/55 L Pulse Oximetry 95 Oxygen Delivery Intake/Output Intake/Output: Intake & Output 02/19/25 02/20/25 02/21/25 02/22/25 23:59 23:59 23:59 23:59 Intake Total 1540 1460 900 100 Output Total 2150 1050 900 300 Balance -610 410 0 -200 Meds/Results Medications: Active Medications Generic Name Dose Route Start Last Admin Trade Name Freq PRN Reason Stop Dose Admin Acetaminophen 650 mg 02/11/25 20:54 02/15/25 12:09 Acetaminophen 325 Mg Tablet PO 650 mg Q4H PRN Administration Mild Pain (1-3) or Fever Albuterol/Ipratropium 3 ml 02/12/25 08:00 02/22/25 01:44 Ipratropium 0.5 Mg/Albuterol Sulfate 2.5 Mg Ampul.Neb 3 Ml INHALATION 3 ml Q6HRT ENEDELIA Administration Apixaban 5 mg 02/12/25 09:00 02/21/25 22:04 Apixaban 5 Mg Tablet PO 5 mg Q12HR ENEDELIA Administration Calcium Carbonate 200 mg 02/12/25 02:37 Calcium Carbonate (Tums) 500 Mg (200 Mg Elemental) PO QID PRN dyspepsia Calcium Carbonate 500 mg 02/14/25 12:00 02/21/25 17:15 Calcium Carbonate (Oscal) 500 Mg Tablet PO 500 mg TIDWM ENEDELIA Administration Carvedilol 25 mg 02/12/25 09:00 02/21/25 22:04 Carvedilol 25 Mg Tablet PO 25 mg Q12HR ENEDELIA Administration Clopidogrel Bisulfate 75 mg 02/12/25 09:00 02/21/25 08:33 Clopidogrel Bisulfate 75 Mg Tablet PO 75 mg QAM ENEDELIA Administration Epoetin Shabbir-epbx 20,000 units 02/22/25 09:00 Epoetin Shabbir-Epbx 20,000 Units/Ml Vial SUB-Q 02/22/25 09:01 ONCE ONE Felodipine 10 mg 02/12/25 09:00 02/21/25 08:33 Felodipine 5 Mg Tab Cr PO 10 mg QAM ENEDELIA Administration Sodium Chloride 250 mls @ 30 mls/hr 02/22/25 06:37 Normal Saline Iv IV CONT 02/22/25 14:56 .Q8H20M STA Isosorbide Mononitrate 30 mg 02/12/25 09:00 02/21/25 08:33 Isosorbide Mononitrate 30 Mg Tab.Er.24h PO 30 mg DAILY ENEDELIA Administration Levothyroxine Sodium 88 mcg 02/12/25 06:30 02/22/25 06:22 Levothyroxine Sodium 88 Mcg Tablet PO 88 mcg DAILY@0630 ENEDELIA Administration Miscellaneous Information 1 each 02/20/25 00:01 [place] Needs To Be Renewed Or It Will Automatically Discontinue. XX 03/22/25 00:00 CLARIFY ENEDELIA Morphine Sulfate 2 mg 02/14/25 10:36 02/14/25 16:03 Morphine Sulfate (*Crx) 2 Mg/Ml Inj IV PUSH 2 mg Q4H PRN Administration Pain Rated 7-10 Nitroglycerin 0.4 mg 02/12/25 02:37 Nitroglycerin Sl 0.4 Mg Tablet SUBLINGUAL Q5M PRN Chest Pain Ondansetron HCl 4 mg 02/11/25 20:54 02/14/25 16:03 Ondansetron Inj 4 Mg/2 Ml Vial IV PUSH 4 mg Q4H PRN Administration Nausea Oxybutynin Chloride 15 mg 02/12/25 09:00 02/21/25 08:33 Oxybutynin Chloride Xl 5 Mg Tab.Er.24 PO 15 mg DAILY ENEDELIA Administration Pantoprazole Sodium 40 mg 02/12/25 02:55 02/21/25 08:32 Pantoprazole 40 Mg Tablet PO 40 mg DAILY PRN Administration acid reflux Promethazine HCl 12.5 mg 02/14/25 10:29 02/16/25 20:52 Promethazine Hcl 25 Mg/Ml Ampul IV PUSH 12.5 mg Q6H PRN Administration Nausea And Vomiting Ranolazine 500 mg 02/12/25 09:00 02/21/25 22:04 Ranolazine 500 Mg Tab.Er.12h PO 500 mg Q12HR ENEDELIA Administration Rosuvastatin Calcium 40 mg 02/12/25 09:00 02/21/25 08:33 Rosuvastatin 20 Mg Tablet PO 40 mg DAILY ENEDELIA Administration Sodium Chloride 10 ml 02/17/25 14:00 02/22/25 06:22 Saline Lock Flush IV PUSH 10 ml Q8HR ENEDELIA Administration Sodium Chloride 10 ml 02/17/25 11:13 Saline Lock Flush IV PUSH PRN PRN Flush Sodium Chloride 20 ml 02/17/25 11:13 Saline Lock Flush IV PUSH PRN PRN after blood draws Umeclidinium/Vilanterol 1 puff 02/12/25 08:00 02/21/25 07:43 Umeclidinium/Vilanterol 62.5-25 Mcg Ellipta INHALATION 1 puff DAILYRT ENEDELIA Administration Radiology Results: ITS Impressions Abdomen/Pelvis CT 02/11/25 19:34 IMPRESSION: Left basilar consolidation, an interval change from prior. Findings within the colon suggesting a diarrheal illness, for which clinical correlation is needed. Chest X-Ray 02/11/25 19:58 IMPRESSION: No focal infiltrate or effusion. Venous Doppler Study 02/12/25 11:17 IMPRESSION: 1: No lower extremity deep venous thrombosis. Renal Ultrasound 02/12/25 11:18 Impression: 1: Mild right hydronephrosis. Labs Labs: Laboratory Results - last 24 hr 02/21/25 02/22/25 02/22/25 14:03 05:51 06:59 WBC 11.8 H RBC 2.26 L Hgb 7.6 L 6.9 L* Hct 24.2 L 22.1 L MCV 97.8 MCH 30.5 MCHC 31.2 L RDW 18.4 H Plt Count 225 MPV 10.1 Sodium 135 L Potassium 3.8 Chloride 109 H Carbon Dioxide 21 L Anion Gap 5 BUN 23 H Creatinine 2.03 H Estim Creat Clear Calc 25 Estimated GFR 24 L Glucose 72 Calcium 8.8 Total Bilirubin 0.5 AST 21 ALT 14 Alkaline Phosphatase 92 Total Protein 5.0 L Albumin 2.2 L Blood Type O Positive Crossmatch See Detail Quality VTE Prophylaxis VTE prophylaxis: pharmacologic ordered (Continue home Eliquis) Hospitalist [facility] Advance Care Plan I have confirmed that the patient's Advanced Care Plan is present, code status is documented, or surrogate decision maker is listed in patient medical record.: Yes Medication Reconciliation I have utilized all available resources to obtain, update and review the patients current medications (includes all prescriptions, OTC, herbals, cannabis, and nutritional supplements).: Yes
[2025-02-22] MEDS: EPOETIN ALFA-EPBX 20,000 UNITS/ML VIAL 20000 UNITS SUB-Q (08:24)
[2025-02-22] MEDS: CLOPIDOGREL BISULFATE 75 MG TABLET PO (08:30)
[2025-02-22] MEDS: ROSUVASTATIN 20 MG TABLET 40 MG PO (08:30)
[2025-02-22] MEDS: CALCIUM CARBONATE (OSCAL) 500 MG TABLET PO ×2 (08:30→12:11)
[2025-02-22] MEDS: carvediloL 25 MG TABLET PO ×2 (08:30→21:36)
[2025-02-22] MEDS: oxyBUTYnin CHLORIDE XL 5 MG TAB.ER.24 15 MG PO (08:30)
[2025-02-22] MEDS: RANOLAZINE 500 MG TAB.ER.12H PO ×2 (08:31→21:36)
[2025-02-22] MEDS: ISOSORBIDE MONONITRATE 30 MG TAB.ER.24H PO (08:31)
[2025-02-22] MEDS: FELODIPINE 5 MG TAB CR 10 MG PO (08:31)
[2025-02-22] MEDS: PANTOPRAZOLE 40 MG TABLET PO (08:31)
[2025-02-22] MEDS: APIXABAN 5 MG TABLET PO ×2 (08:31→21:37)
[2025-02-22] MEDS: UMECLIDINIUM/VILANTEROL 62.5-25 MCG ELLIPTA 1 PUFF INHALATION (08:55)
[2025-02-22] MEDS: SODIUM CHLORIDE 0.9% IV 250 ML 30 ML IV CONT (11:09)
--- NOTE | 2025-02-22 11:24 | P.PNNP_ITS ---
Progress Note: A&P Assessment and Plan (1) Acute kidney injury: Code(s): N17.9 - Acute kidney failure, unspecified Status: Acute Assessment and Plan: * improving * as evidenced by admission labs * multifactorial etiology: * prerenal factors (diarrhea) * urinary retention * early sepsis/infection (UTI + pneumonia) * evaluation to date noted: * renal u/s with mild right hydronephrosis * urology following. they see as an outpatient * bladder scan with evidence of urinary retention * urine electrolytes non prerenal * urine eosinophils negative * CPK normal * UA suggestive of infection * proteinuria noted * continue to follow trend of repeat labs and UOP (2) Chronic kidney disease, stage 3: Qualifiers: Chronic kidney disease stage 3 subtype: stage 3a (GFR 45-59) Qualified Code(s): N18.31 - Chronic kidney disease, stage 3a Code(s): N18.30 - Chronic kidney disease, stage 3 unspecified Status: Chronic Assessment and Plan: * baseline creatinine runs around 1.4 - 1.9mg/dl in the last few years * however, has been as low as 0.9 - 1.1mg/dl * secondary to solitary kidney (and associated loss of nephron mass), hypertension, and age-related change * possible new baseline creatinine (~ 1.9 - 2.1mg/dl)... (3) Anemia: Code(s): D64.9 - Anemia, unspecified Status: Acute Assessment and Plan: * noted drop in H/H by AM labs (on 02/13 and 02/22) * PRBC transfusion per protocol * anemia studies with iron deficiency * complicated by recent start of Eliquis for PE (was on hold but resumed) * GI following: * EGD -- mild diffuse gastritis without any findings * colonoscopy - deferred due to inadequate prep * empiric Epogen * follow trend of H/H (4) Urinary tract infection: Code(s): N39.0 - Urinary tract infection, site not specified Status: Acute Assessment and Plan: * admission UA highly suggestive * on antibiotic therapy * urine culture with E.coli and VRE (5) Pneumonia: Code(s): J18.9 - Pneumonia, unspecified organism Status: Acute Assessment and Plan: * as suggested by admission imaging * blood culture negative to date * on antibiotics (6) Bilateral lower extremity edema: Code(s): R60.0 - Localized edema Status: Acute Assessment and Plan: * noted on admission * related to JOSR/ARF(?) * possible venous insufficiency/circulation issues (has known PAD) * venous dopplers negative for DVT * related to proteinuria(?) * follow clinical exam (7) Acute urinary retention: Code(s): R33.8 - Other retention of urine Status: Acute Assessment and Plan: * as noted by renal ultrasound and bladders scans * calles catheter in place * Urology recommendations noted (8) Essential hypertension: Code(s): I10 - Essential (primary) hypertension Status: Chronic Assessment and Plan: * reasonable control * follow trend of hemodynamics Will continue to follow. L Subjective Date/time seen: 02/22/25 11:24 Interval history: Follow-up for acute kidney injury/acute renal failure on chronic kidney disease. Renal function/creatinine appears to have stabilized in the last few days (possible new baseline?); drop in H/H noted again by AM labs so another PRBC transfusion ordered; empirically started on Epogen today as well; no apparent distress noted at the time of my visit. Exam 2 Narrative: General: elderly (appears older than stated age) WD/WN female in NAD Heart: normal S1 and S2; no rub Lungs: clear to auscultation Abdomen: soft, nontender, nondistended, positive bowel sounds Extremities: no cyanosis or clubbing; 1+ edema Skin: no nodules Objective Data Vital Signs Vital Signs: Vital Signs Temp Pulse Resp BP Pulse Ox O2 Del Method FiO2 02/22/25 11:09 98.7 F 80 16 121/50 L 96 02/22/25 08:55 82 16 02/22/25 08:48 80 16 02/22/25 08:48 95 Room Air 21 02/22/25 08:30 86 02/22/25 08:00 Room Air 02/22/25 06:44 98.6 F 78 14 108/55 L 95 02/22/25 01:55 80 14 02/22/25 01:45 79 14 02/21/25 22:04 80 02/21/25 21:42 98.9 F 80 14 107/45 L 96 02/21/25 20:02 81 14 02/21/25 20:00 Room Air 02/21/25 19:52 80 14 02/21/25 19:52 98 Room Air 02/21/25 13:57 80 16 02/21/25 13:49 76 16 02/21/25 13:44 97.8 F 79 16 110/49 L 93 Intake/Output Intake/Output: Intake & Output 02/19/25 02/20/25 02/21/25 02/22/25 23:59 23:59 23:59 23:59 Intake Total 1540 1460 900 340 Output Total 2150 1050 900 300 Balance -610 410 0 40 Meds/Results Medications: Active Medications Generic Name Dose Route Start Last Admin Trade Name Freq PRN Reason Stop Dose Admin Acetaminophen 650 mg 02/11/25 20:54 02/15/25 12:09 Acetaminophen 325 Mg Tablet PO 650 mg Q4H PRN Administration Mild Pain (1-3) or Fever Albuterol/Ipratropium 3 ml 02/12/25 08:00 02/22/25 08:48 Ipratropium 0.5 Mg/Albuterol Sulfate 2.5 Mg Ampul.Neb 3 Ml INHALATION 3 ml Q6HRT ENEDELIA Administration Apixaban 5 mg 02/12/25 09:00 02/22/25 08:31 Apixaban 5 Mg Tablet PO 5 mg Q12HR ENEDELIA Administration Calcium Carbonate 200 mg 02/12/25 02:37 Calcium Carbonate (Tums) 500 Mg (200 Mg Elemental) PO QID PRN dyspepsia Calcium Carbonate 500 mg 02/14/25 12:00 02/22/25 12:11 Calcium Carbonate (Oscal) 500 Mg Tablet PO 500 mg TIDWM ENEDELIA Administration Carvedilol 25 mg 02/12/25 09:00 02/22/25 08:30 Carvedilol 25 Mg Tablet PO 25 mg Q12HR ENEDELIA Administration Clopidogrel Bisulfate 75 mg 02/12/25 09:00 02/22/25 08:30 Clopidogrel Bisulfate 75 Mg Tablet PO 75 mg QAM ENEDELIA Administration Felodipine 10 mg 02/12/25 09:00 02/22/25 08:31 Felodipine 5 Mg Tab Cr PO 10 mg QAM ENEDELIA Administration Sodium Chloride 250 mls @ 30 mls/hr 02/22/25 06:37 02/22/25 11:09 Normal Saline Iv IV CONT 02/22/25 14:56 30 mls/hr .Q8H20M STA Administration Isosorbide Mononitrate 30 mg 02/12/25 09:00 02/22/25 08:31 Isosorbide Mononitrate 30 Mg Tab.Er.24h PO 30 mg DAILY ENEDELIA Administration Levothyroxine Sodium 88 mcg 02/12/25 06:30 02/22/25 06:22 Levothyroxine Sodium 88 Mcg Tablet PO 88 mcg DAILY@0630 ENEDELIA Administration Miscellaneous Information 1 each 02/20/25 00:01 [place] Needs To Be Renewed Or It Will Automatically Discontinue. XX 03/22/25 00:00 CLARIFY ENEDELIA Morphine Sulfate 2 mg 02/14/25 10:36 02/14/25 16:03 Morphine Sulfate (*Crx) 2 Mg/Ml Inj IV PUSH 2 mg Q4H PRN Administration Pain Rated 7-10 Nitroglycerin 0.4 mg 02/12/25 02:37 Nitroglycerin Sl 0.4 Mg Tablet SUBLINGUAL Q5M PRN Chest Pain Ondansetron HCl 4 mg 02/11/25 20:54 02/14/25 16:03 Ondansetron Inj 4 Mg/2 Ml Vial IV PUSH 4 mg Q4H PRN Administration Nausea Oxybutynin Chloride 15 mg 02/12/25 09:00 02/22/25 08:30 Oxybutynin Chloride Xl 5 Mg Tab.Er.24 PO 15 mg DAILY ENEDELIA Administration Pantoprazole Sodium 40 mg 02/12/25 02:55 02/22/25 08:31 Pantoprazole 40 Mg Tablet PO 40 mg DAILY PRN Administration acid reflux Promethazine HCl 12.5 mg 02/14/25 10:29 02/16/25 20:52 Promethazine Hcl 25 Mg/Ml Ampul IV PUSH 12.5 mg Q6H PRN Administration Nausea And Vomiting Ranolazine 500 mg 02/12/25 09:00 02/22/25 08:31 Ranolazine 500 Mg Tab.Er.12h PO 500 mg Q12HR ENEDELIA Administration Rosuvastatin Calcium 40 mg 02/12/25 09:00 02/22/25 08:30 Rosuvastatin 20 Mg Tablet PO 40 mg DAILY ENEDELIA Administration Sodium Chloride 10 ml 02/17/25 14:00 02/22/25 06:22 Saline Lock Flush IV PUSH 10 ml Q8HR ENEDELIA Administration Sodium Chloride 10 ml 02/17/25 11:13 Saline Lock Flush IV PUSH PRN PRN Flush Sodium Chloride 20 ml 02/17/25 11:13 Saline Lock Flush IV PUSH PRN PRN after blood draws Umeclidinium/Vilanterol 1 puff 02/12/25 08:00 02/22/25 08:55 Umeclidinium/Vilanterol 62.5-25 Mcg Ellipta INHALATION 1 puff DAILYRT ENEDELIA Administration Radiology Results: ITS Impressions Abdomen/Pelvis CT 02/11/25 19:34 IMPRESSION: Left basilar consolidation, an interval change from prior. Findings within the colon suggesting a diarrheal illness, for which clinical correlation is needed. Chest X-Ray 02/11/25 19:58 IMPRESSION: No focal infiltrate or effusion. Venous Doppler Study 02/12/25 11:17 IMPRESSION: 1: No lower extremity deep venous thrombosis. Renal Ultrasound 02/12/25 11:18 Impression: 1: Mild right hydronephrosis. Labs Labs: Laboratory Tests 02/22/25 05:51 02/22/25 05:51 Calcium 8.8 Total Bilirubin 0.5 AST 21 ALT 14 Alkaline Phosphatase 92 Total Protein 5.0 L Albumin 2.2 L
[2025-02-22] MEDS: ONDANSETRON INJ 4 MG/2 ML VIAL IV PUSH (17:32)
[2025-02-23] VITALS (14 sets, daily range): BP systolic 102–134; BP diastolic 43–62; PULSE 71–89; RESP 16–18; TEMP 37–37.3; O2SAT 92–97
[2025-02-23] MEDS: IPRATROPIUM 0.5 MG/ALBUTEROL SULFATE 2.5 MG AMPUL.NEB 3 ML INHALATION ×4 (01:59→19:59)
[2025-02-23] MEDS: LEVOTHYROXINE SODIUM 88 MCG TABLET PO (05:35)
[2025-02-23] MEDS: SALINE LOCK FLUSH 10 ML IV PUSH ×3 (05:35→21:20)
[2025-02-23 06:28] LABS: Hematocrit 26.4 % (37.0-47.0); Hemoglobin 8.4 g/dL (12.0-15.0); Mean Corpuscular HGB Conc 31.8 g/dl (32-36); Mean Corpuscular Hemoglobin 30.2 pg (26-34); Mean Platelet Volume 10.5 fl (7.4-10.4); Platelet Count Result 195 k/mm3 (150-375); Red Blood Count 2.78 M/mm3 (4.2-5.4); Red Cell Distribution Width 18.3 % (11.5-14.5); White Blood Count 11.7 K/mm3 (4.5-10.0)
[2025-02-23 06:36] LABS: Alanine Aminotransferase 13 U/L (6-35); Albumin Level 2.2 g/dL (3.5-5.1); Alkaline Phosphatase 93 U/L (38-126); Anion Gap 5 mmol/L (4-12); Aspartate Amino Transferase 18 U/L (14-36); Bilirubin,Total 0.5 mg/dL (0.2-1.3); Blood Urea Nitrogen 24 mg/dL (7-17); Calcium 8.5 mg/dL (8.4-10.2); Carbon Dioxide 23 mmol/L (22-30); Chloride 108 mmol/L (98-107); Estimated CRCL calculation 25 ml/min; Estimated Glomerular Filt Rate 24; Glucose 77 mg/dL (65-110); Potassium 3.8 mmol/L (3.4-5.0); Sodium 136 mmol/L (137-145)
[2025-02-23] MEDS: UMECLIDINIUM/VILANTEROL 62.5-25 MCG ELLIPTA 1 PUFF INHALATION (07:54)
[2025-02-23] MEDS: carvediloL 25 MG TABLET PO ×2 (08:19→21:19)
[2025-02-23] MEDS: APIXABAN 5 MG TABLET PO ×2 (08:19→21:20)
[2025-02-23] MEDS: CALCIUM CARBONATE (OSCAL) 500 MG TABLET PO ×3 (08:19→16:14)
[2025-02-23] MEDS: CLOPIDOGREL BISULFATE 75 MG TABLET PO (08:20)
[2025-02-23] MEDS: ROSUVASTATIN 20 MG TABLET 40 MG PO (08:20)
[2025-02-23] MEDS: oxyBUTYnin CHLORIDE XL 5 MG TAB.ER.24 15 MG PO (08:20)
[2025-02-23] MEDS: FELODIPINE 5 MG TAB CR 10 MG PO (08:20)
[2025-02-23] MEDS: ISOSORBIDE MONONITRATE 30 MG TAB.ER.24H PO (08:20)
[2025-02-23] MEDS: RANOLAZINE 500 MG TAB.ER.12H PO ×2 (08:20→21:20)
--- NOTE | 2025-02-23 12:41 | P.PNNP_ITS ---
Progress Note: A&P Assessment and Plan (1) Acute kidney injury: Code(s): N17.9 - Acute kidney failure, unspecified Status: Acute Assessment and Plan: * improving * as evidenced by admission labs * multifactorial etiology: * prerenal factors (diarrhea) * urinary retention * early sepsis/infection (UTI + pneumonia) * evaluation to date noted: * renal u/s with mild right hydronephrosis * urology following. they see as an outpatient * bladder scan with evidence of urinary retention * urine electrolytes non prerenal * urine eosinophils negative * CPK normal * UA suggestive of infection * proteinuria noted * continue to follow trend of repeat labs and UOP (2) Chronic kidney disease, stage 3: Qualifiers: Chronic kidney disease stage 3 subtype: stage 3a (GFR 45-59) Qualified Code(s): N18.31 - Chronic kidney disease, stage 3a Code(s): N18.30 - Chronic kidney disease, stage 3 unspecified Status: Chronic Assessment and Plan: * baseline creatinine runs around 1.4 - 1.9mg/dl in the last few years * however, has been as low as 0.9 - 1.1mg/dl * secondary to solitary kidney (and associated loss of nephron mass), hypertension, and age-related change * possible new baseline creatinine (~ 1.9 - 2.1mg/dl)... (3) Anemia: Code(s): D64.9 - Anemia, unspecified Status: Acute Assessment and Plan: * noted drop in H/H by AM labs (on 02/13 and 02/22) * PRBC transfusion per protocol * anemia studies with iron deficiency * complicated by recent start of Eliquis for PE (was on hold but resumed) * GI following: * EGD -- mild diffuse gastritis without any findings * colonoscopy - deferred due to inadequate prep * empiric Epogen dosing x 1 * follow trend of H/H (4) Urinary tract infection: Code(s): N39.0 - Urinary tract infection, site not specified Status: Acute Assessment and Plan: * admission UA highly suggestive * on antibiotic therapy * urine culture with E.coli and VRE (5) Pneumonia: Code(s): J18.9 - Pneumonia, unspecified organism Status: Acute Assessment and Plan: * as suggested by admission imaging * blood culture negative to date * on antibiotics (6) Bilateral lower extremity edema: Code(s): R60.0 - Localized edema Status: Acute Assessment and Plan: * noted on admission * related to JOSR/ARF(?) * possible venous insufficiency/circulation issues (has known PAD) * venous dopplers negative for DVT * related to proteinuria(?) * follow clinical exam (7) Acute urinary retention: Code(s): R33.8 - Other retention of urine Status: Acute Assessment and Plan: * as noted by renal ultrasound and bladders scans * calles catheter in place * Urology recommendations noted (8) Essential hypertension: Code(s): I10 - Essential (primary) hypertension Status: Chronic Assessment and Plan: * reasonable control * follow trend of hemodynamics Will continue to follow. L Subjective Date/time seen: 02/23/25 12:41 Interval history: Follow-up for acute kidney injury/acute renal failure on chronic kidney disease. Renal function/creatinine appears relatively stable at this time; tolerated PRBC transfusion with improvement noted in H/H; Hematology consulted due to ongoing issues with anemia; no acute distress to report when seen; no apparent distress noted currently. Exam 2 Narrative: General: elderly (appears older than stated age) WD/WN female in NAD Heart: normal S1 and S2; no rub Lungs: clear to auscultation Abdomen: soft, nontender, nondistended, positive bowel sounds Extremities: no cyanosis or clubbing; 1+ edema Skin: warm and dry Objective Data Vital Signs Vital Signs: Vital Signs Temp Pulse Resp BP Pulse Ox O2 Del Method FiO2 02/23/25 12:00 99.2 F 80 16 102/43 L 95 02/23/25 08:19 97 Room Air 02/23/25 08:19 79 02/23/25 07:55 72 16 02/23/25 07:44 71 16 02/23/25 07:44 92 Room Air 02/23/25 06:34 98.9 F 79 16 112/60 94 02/23/25 02:07 89 17 02/23/25 02:00 88 17 02/22/25 21:40 98.6 F 89 16 119/56 L 94 02/22/25 20:42 86 17 02/22/25 20:36 94 Room Air 21 02/22/25 20:35 84 17 02/22/25 20:00 89 16 94 Room Air 21 Intake/Output Intake/Output: Intake & Output 02/20/25 02/21/25 02/22/25 02/23/25 23:59 23:59 23:59 23:59 Intake Total 5090 468 9086 877 Output Total 1050 900 750 600 Balance 410 0 520 277 Meds/Results Medications: Active Medications Generic Name Dose Route Start Last Admin Trade Name Freq PRN Reason Stop Dose Admin Acetaminophen 650 mg 02/11/25 20:54 02/15/25 12:09 Acetaminophen 325 Mg Tablet PO 650 mg Q4H PRN Administration Mild Pain (1-3) or Fever Albuterol/Ipratropium 3 ml 02/12/25 08:00 02/23/25 14:04 Ipratropium 0.5 Mg/Albuterol Sulfate 2.5 Mg Ampul.Neb 3 Ml INHALATION 3 ml Q6HRT ENEDELIA Administration Apixaban 5 mg 02/12/25 09:00 02/23/25 08:19 Apixaban 5 Mg Tablet PO 5 mg Q12HR ENEDELIA Administration Calcium Carbonate 200 mg 02/12/25 02:37 Calcium Carbonate (Tums) 500 Mg (200 Mg Elemental) PO QID PRN dyspepsia Calcium Carbonate 500 mg 02/14/25 12:00 02/23/25 16:14 Calcium Carbonate (Oscal) 500 Mg Tablet PO 500 mg TIDWM ENEDELIA Administration Carvedilol 25 mg 02/12/25 09:00 02/23/25 08:19 Carvedilol 25 Mg Tablet PO 25 mg Q12HR ENEDELIA Administration Clopidogrel Bisulfate 75 mg 02/12/25 09:00 02/23/25 08:20 Clopidogrel Bisulfate 75 Mg Tablet PO 75 mg QAM ENEDELIA Administration Felodipine 10 mg 02/12/25 09:00 02/23/25 08:20 Felodipine 5 Mg Tab Cr PO 10 mg QAM ENEDELIA Administration Isosorbide Mononitrate 30 mg 02/12/25 09:00 02/23/25 08:20 Isosorbide Mononitrate 30 Mg Tab.Er.24h PO 30 mg DAILY ENEDELIA Administration Levothyroxine Sodium 88 mcg 02/12/25 06:30 02/23/25 05:35 Levothyroxine Sodium 88 Mcg Tablet PO 88 mcg DAILY@0630 ENEDELIA Administration Miscellaneous Information 1 each 02/20/25 00:01 [place] Needs To Be Renewed Or It Will Automatically Discontinue. XX 03/22/25 00:00 CLARIFY ENEDELIA Morphine Sulfate 2 mg 02/14/25 10:36 02/14/25 16:03 Morphine Sulfate (*Crx) 2 Mg/Ml Inj IV PUSH 2 mg Q4H PRN Administration Pain Rated 7-10 Nitroglycerin 0.4 mg 02/12/25 02:37 Nitroglycerin Sl 0.4 Mg Tablet SUBLINGUAL Q5M PRN Chest Pain Ondansetron HCl 4 mg 02/11/25 20:54 02/22/25 17:32 Ondansetron Inj 4 Mg/2 Ml Vial IV PUSH 4 mg Q4H PRN Administration Nausea Oxybutynin Chloride 15 mg 02/12/25 09:00 02/23/25 08:20 Oxybutynin Chloride Xl 5 Mg Tab.Er.24 PO 15 mg DAILY ENEDELIA Administration Pantoprazole Sodium 40 mg 02/12/25 02:55 02/22/25 08:31 Pantoprazole 40 Mg Tablet PO 40 mg DAILY PRN Administration acid reflux Promethazine HCl 12.5 mg 02/14/25 10:29 02/16/25 20:52 Promethazine Hcl 25 Mg/Ml Ampul IV PUSH 12.5 mg Q6H PRN Administration Nausea And Vomiting Ranolazine 500 mg 02/12/25 09:00 02/23/25 08:20 Ranolazine 500 Mg Tab.Er.12h PO 500 mg Q12HR ENEDELIA Administration Rosuvastatin Calcium 40 mg 02/12/25 09:00 02/23/25 08:20 Rosuvastatin 20 Mg Tablet PO 40 mg DAILY ENEDELIA Administration Sodium Chloride 10 ml 02/17/25 14:00 02/23/25 16:14 Saline Lock Flush IV PUSH 10 ml Q8HR ENEDELIA Administration Sodium Chloride 10 ml 02/17/25 11:13 Saline Lock Flush IV PUSH PRN PRN Flush Sodium Chloride 20 ml 02/17/25 11:13 Saline Lock Flush IV PUSH PRN PRN after blood draws Umeclidinium/Vilanterol 1 puff 02/12/25 08:00 02/23/25 07:54 Umeclidinium/Vilanterol 62.5-25 Mcg Ellipta INHALATION 1 puff DAILYRT ENEDELIA Administration Radiology Results: ITS Impressions Abdomen/Pelvis CT 02/11/25 19:34 IMPRESSION: Left basilar consolidation, an interval change from prior. Findings within the colon suggesting a diarrheal illness, for which clinical correlation is needed. Chest X-Ray 02/11/25 19:58 IMPRESSION: No focal infiltrate or effusion. Venous Doppler Study 02/12/25 11:17 IMPRESSION: 1: No lower extremity deep venous thrombosis. Renal Ultrasound 02/12/25 11:18 Impression: 1: Mild right hydronephrosis. Labs Labs: Laboratory Tests 02/23/25 05:40 02/23/25 05:40 Calcium 8.5 Total Bilirubin 0.5 AST 18 ALT 13 Alkaline Phosphatase 93 Total Protein 5.0 L Albumin 2.2 L
--- NOTE | 2025-02-23 13:43 | PM.IMPN ---
Progress Note: A&P Assessment and Plan (1) Sepsis: Qualifiers: Acute renal failure type: unspecified Sepsis acute organ dysfunction status: with acute organ dysfunction Sepsis type: sepsis due to unspecified organism Severe sepsis acute organ dysfunction type: acute renal failure Severe sepsis shock status: without septic shock Qualified Code(s): A41.9 - Sepsis, unspecified organism; R65.20 - Severe sepsis without septic shock; N17.9 - Acute kidney failure, unspecified Code(s): A41.9 - Sepsis, unspecified organism Status: Acute (2) Diarrhea: Qualifiers: Diarrhea type: infectious Qualified Code(s): A09 - Infectious gastroenteritis and colitis, unspecified Code(s): R19.7 - Diarrhea, unspecified Status: Acute (3) Acute respiratory failure with hypoxia: Code(s): J96.01 - Acute respiratory failure with hypoxia Status: Acute (4) Acute UTI: Code(s): N39.0 - Urinary tract infection, site not specified Status: Acute (5) Acute kidney injury: Code(s): N17.9 - Acute kidney failure, unspecified Status: Acute (6) Chronic kidney disease, stage 3: Qualifiers: Chronic kidney disease stage 3 subtype: stage 3a (GFR 45-59) Qualified Code(s): N18.31 - Chronic kidney disease, stage 3a Code(s): N18.30 - Chronic kidney disease, stage 3 unspecified Status: Chronic (7) Chronic anticoagulation: Code(s): 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 Status: Acute Plan Sepsis From pneumonia and diarrhea CT AP showed diarrhea disease and LLL Pneumonia Blood cultures Continue Meropenem, Doxy and Linezolid s/p IVF monitor Pneumonia LLL pneumonia per CT AP WBC 13.5 from 29.4 Continue above care Diarrhea No inflammation per CT Patient noted much improvement, however, of noted she has been on imodium since onset and thus has likely arrested the diarrhea continue above care and IVF Order stool studies JOSR on CKD Improving Cr 1.91 from 6.19 From dehydration Continue IVF Iron deficiency anemia r/o GI bleed 0 02/22 hemoglobin 6.9 Transfuse 1 unit PRBC Consulted Oncology Patient had a recent PE last month and was started on Eliquis Endoscopy shows mild gastritis Colonoscopy as outpatient GI following UTI urine culture positive for E coli and VRE Completed Linezolid Completed meropenem monitor PE Eliquis on hold Plavix on hold Venous doppler negative for DVT HTN titrate home meds with clinical course PAD s/p stent Plavix on hold continue Home meds JANNY on CPAP Mild right hydronephrosis US reviewed Follow up with Urology outpatient DVT prophylaxis Eliquis on hold due to GI bleed Subjective Date/time seen: 02/23/25 13:43 Interval history: Discussed with the GI in regards to low hemoglobin and he reported its unsuccessful to perform colonoscopy 2 times during this hospitalization. Patient need colonoscopy as an outpatient and close follow-up with GI. Consulted Oncology as well. Will discuss with his granddaughter and son and formulated the plan for discharge. Holding Eliquis and Plavix. 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 Except as documented in the HPI, all other systems were reviewed and are negative. All systems reviewed & are unremarkable except as noted in HPI and below Constitutional: Constitutional: Reports no additional constitutional complaints, Reports lethargy and Reports weakness ENT: Reports system reviewed and no additional complaints, except as documented Cardiovascular: Cardiovascular: Reports no additional cardiovascular complaints, Denies chest pain, Reports pedal edema and Reports leg edema Respiratory: Respiratory: Reports no additional respiratory complaints Gastrointestinal: Gastrointestinal: Reports no additional gastrointestinal complaints, Denies abdominal pain, Denies constipation and Reports diarrhea Genitourinary: Genitourinary: Reports as per HPI Musculoskeletal: Musculoskeletal: Reports myalgias and Reports stiffness Neurologic: Reports weakness Exam Narrative: Weight 71.4 kg BMI 27.9 Const: General: comfortable and no acute distress Other: Acutely ill-appearing, appears older than stated age, height weight proportionate HENMT: Face/Nose/Sinus: Normal nares present Other: Mucous membranes are dry, edentulous in upper and lower jaw, head is normocephalic atraumatic Eyes: General: appearance normal, both eyes and all related structures Other: Positive conjunctival pallor, no scleral icterus, pupils are equal and reactive with evidence of bilateral lens replacements Neck: Neck: supple Other: No JVD, no lymphadenopathy Resp: Effort & Inspection: normal respiratory effort Auscultation: clear to auscultation bilaterally Other: Clear to auscultation bilaterally, no increased work of breathing Cardio: Rate: regular rate Rhythm: regular rhythm Other: Regular rate, regular rhythm, 2+ bilateral radial and pedal pulses, no murmur GI: Inspection: non-distended Auscultation: normal bowel sounds Other: Soft, nontender, nondistended, positive bowel sounds, no organomegaly : Other: Depends in place Urinary Catheter: Urinary Catheter: patent and draining and urine cloudy Skin: General skin exam: normal color Other: Jaundice, underlying pallor, bruising to the tops of the feet bilaterally, skin of the lower extremities is tight and shiny Neuro: Speech: normal speech Other: Alert orient x4, speech is clear, no facial asymmetry Extrem: General: edema bilateral (lower extremities) and pedal edema Other: Marked edema bilateral lower extremities which is symmetrical, bruising to the dorsum of the feet bilaterally on the right side more to the toes on the left 8 just proximal to the toes, patient moves all extremities equally, 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 Psych: Mental Status: mental status grossly normal Speech and movement: Normal speech and movement present Affect: normal affect Objective Data Vital Signs Vital Signs: Vital Signs - 24 hr 02/22/25 14:15 02/22/25 14:15 02/22/25 20:00 Temperature 98.3 F 98.3 F Pulse Rate 80 80 89 Respiratory Rate 16 16 16 Blood Pressure 123/55 L 123/55 L Pulse Oximetry 95 95 94 Oxygen Delivery Room Air Fraction of Inspired Oxygen 02/22/25 20:35 02/22/25 20:36 02/22/25 20:42 Temperature Pulse Rate 84 86 Respiratory Rate 17 17 Blood Pressure Pulse Oximetry 94 Oxygen Delivery Room Air Fraction of Inspired Oxygen 02/22/25 21:40 02/23/25 02:00 02/23/25 02:07 Temperature 98.6 F Pulse Rate 89 88 89 Respiratory Rate 16 17 17 Blood Pressure 119/56 L Pulse Oximetry 94 Oxygen Delivery Fraction of Inspired Oxygen 02/23/25 06:34 02/23/25 07:44 02/23/25 07:44 Temperature 98.9 F Pulse Rate 79 71 Respiratory Rate 16 16 Blood Pressure 112/60 Pulse Oximetry 94 92 Oxygen Delivery Room Air Fraction of Inspired Oxygen 02/23/25 07:55 02/23/25 08:19 02/23/25 08:19 Temperature Pulse Rate 72 79 Respiratory Rate 16 Blood Pressure Pulse Oximetry 97 Oxygen Delivery Room Air Fraction of Inspired Oxygen Intake/Output Intake/Output: Intake & Output 02/20/25 02/21/25 02/22/25 02/23/25 23:59 23:59 23:59 23:59 Intake Total 3909 718 4033 877 Output Total 1050 900 750 600 Balance 410 0 520 277 Meds/Results Medications: Active Medications Generic Name Dose Route Start Last Admin Trade Name Freq PRN Reason Stop Dose Admin Acetaminophen 650 mg 02/11/25 20:54 02/15/25 12:09 Acetaminophen 325 Mg Tablet PO 650 mg Q4H PRN Administration Mild Pain (1-3) or Fever Albuterol/Ipratropium 3 ml 02/12/25 08:00 02/23/25 07:44 Ipratropium 0.5 Mg/Albuterol Sulfate 2.5 Mg Ampul.Neb 3 Ml INHALATION 3 ml Q6HRT ENEDELIA Administration Apixaban 5 mg 02/12/25 09:00 02/23/25 08:19 Apixaban 5 Mg Tablet PO 5 mg Q12HR ENEDELIA Administration Calcium Carbonate 200 mg 02/12/25 02:37 Calcium Carbonate (Tums) 500 Mg (200 Mg Elemental) PO QID PRN dyspepsia Calcium Carbonate 500 mg 02/14/25 12:00 02/23/25 12:22 Calcium Carbonate (Oscal) 500 Mg Tablet PO 500 mg TIDWM COUNTS INCLUDE 234 BEDS AT THE [facility] Administration Carvedilol 25 mg 02/12/25 09:00 02/23/25 08:19 Carvedilol 25 Mg Tablet PO 25 mg Q12HR ENEDELIA Administration Clopidogrel Bisulfate 75 mg 02/12/25 09:00 02/23/25 08:20 Clopidogrel Bisulfate 75 Mg Tablet PO 75 mg QAM COUNTS INCLUDE 234 BEDS AT THE [facility] Administration Felodipine 10 mg 02/12/25 09:00 02/23/25 08:20 Felodipine 5 Mg Tab Cr PO 10 mg QAM COUNTS INCLUDE 234 BEDS AT THE [facility] Administration Isosorbide Mononitrate 30 mg 02/12/25 09:00 02/23/25 08:20 Isosorbide Mononitrate 30 Mg Tab.Er.24h PO 30 mg DAILY ENEDELIA Administration Levothyroxine Sodium 88 mcg 02/12/25 06:30 02/23/25 05:35 Levothyroxine Sodium 88 Mcg Tablet PO 88 mcg DAILY@0630 ENEDELIA Administration Miscellaneous Information 1 each 02/20/25 00:01 [place] Needs To Be Renewed Or It Will Automatically Discontinue. XX 03/22/25 00:00 CLARIFY ENEDELIA Morphine Sulfate 2 mg 02/14/25 10:36 02/14/25 16:03 Morphine Sulfate (*Crx) 2 Mg/Ml Inj IV PUSH 2 mg Q4H PRN Administration Pain Rated 7-10 Nitroglycerin 0.4 mg 02/12/25 02:37 Nitroglycerin Sl 0.4 Mg Tablet SUBLINGUAL Q5M PRN Chest Pain Ondansetron HCl 4 mg 02/11/25 20:54 02/22/25 17:32 Ondansetron Inj 4 Mg/2 Ml Vial IV PUSH 4 mg Q4H PRN Administration Nausea Oxybutynin Chloride 15 mg 02/12/25 09:00 02/23/25 08:20 Oxybutynin Chloride Xl 5 Mg Tab.Er.24 PO 15 mg DAILY ENEDELIA Administration Pantoprazole Sodium 40 mg 02/12/25 02:55 02/22/25 08:31 Pantoprazole 40 Mg Tablet PO 40 mg DAILY PRN Administration acid reflux Promethazine HCl 12.5 mg 02/14/25 10:29 02/16/25 20:52 Promethazine Hcl 25 Mg/Ml Ampul IV PUSH 12.5 mg Q6H PRN Administration Nausea And Vomiting Ranolazine 500 mg 02/12/25 09:00 02/23/25 08:20 Ranolazine 500 Mg Tab.Er.12h PO 500 mg Q12HR ENEDELIA Administration Rosuvastatin Calcium 40 mg 02/12/25 09:00 02/23/25 08:20 Rosuvastatin 20 Mg Tablet PO 40 mg DAILY ENEDELIA Administration Sodium Chloride 10 ml 02/17/25 14:00 02/23/25 05:35 Saline Lock Flush IV PUSH 10 ml Q8HR ENEDELIA Administration Sodium Chloride 10 ml 02/17/25 11:13 Saline Lock Flush IV PUSH PRN PRN Flush Sodium Chloride 20 ml 02/17/25 11:13 Saline Lock Flush IV PUSH PRN PRN after blood draws Umeclidinium/Vilanterol 1 puff 02/12/25 08:00 02/23/25 07:54 Umeclidinium/Vilanterol 62.5-25 Mcg Ellipta INHALATION 1 puff DAILYRT ENEDELIA Administration Radiology Results: ITS Impressions Abdomen/Pelvis CT 02/11/25 19:34 IMPRESSION: Left basilar consolidation, an interval change from prior. Findings within the colon suggesting a diarrheal illness, for which clinical correlation is needed. Chest X-Ray 02/11/25 19:58 IMPRESSION: No focal infiltrate or effusion. Venous Doppler Study 02/12/25 11:17 IMPRESSION: 1: No lower extremity deep venous thrombosis. Renal Ultrasound 02/12/25 11:18 Impression: 1: Mild right hydronephrosis. Labs Labs: Laboratory Results - last 24 hr 02/22/25 02/23/25 06:59 05:40 WBC 11.7 H RBC 2.78 L Hgb 8.4 L Hct 26.4 L MCV 95.0 MCH 30.2 MCHC 31.8 L RDW 18.3 H Plt Count 195 MPV 10.5 H Sodium 136 L Potassium 3.8 Chloride 108 H Carbon Dioxide 23 Anion Gap 5 BUN 24 H Creatinine 2.03 H Estim Creat Clear Calc 25 Estimated GFR 24 L Glucose 77 Calcium 8.5 Total Bilirubin 0.5 AST 18 ALT 13 Alkaline Phosphatase 93 Total Protein 5.0 L Albumin 2.2 L Crossmatch See Detail Quality VTE Prophylaxis VTE prophylaxis: pharmacologic ordered (Continue home Eliquis) Hospitalist MIPS Advance Care Plan I have confirmed that the patient's Advanced Care Plan is present, code status is documented, or surrogate decision maker is listed in patient medical record.: Yes Medication Reconciliation I have utilized all available resources to obtain, update and review the patients current medications (includes all prescriptions, OTC, herbals, cannabis, and nutritional supplements).: Yes
[2025-02-24] VITALS (14 sets, daily range): BP systolic 103–151; BP diastolic 45–69; PULSE 77–93; RESP 12–20; TEMP 36.6–36.8; O2SAT 91–94
[2025-02-24] MEDS: IPRATROPIUM 0.5 MG/ALBUTEROL SULFATE 2.5 MG AMPUL.NEB 3 ML INHALATION ×4 (02:14→19:51)
[2025-02-24 05:30] LABS: Hematocrit 27.7 % (37.0-47.0); Hemoglobin 8.8 g/dL (12.0-15.0); Mean Corpuscular HGB Conc 31.8 g/dl (32-36); Mean Corpuscular Hemoglobin 30.2 pg (26-34); Mean Corpuscular Volume 95.2 fl (80-100); Mean Platelet Volume 10.5 fl (7.4-10.4); Platelet Count Result 193 k/mm3 (150-375); Red Blood Count 2.91 M/mm3 (4.2-5.4); Red Cell Distribution Width 17.9 % (11.5-14.5); White Blood Count 12.1 K/mm3 (4.5-10.0)
[2025-02-24] MEDS: SALINE LOCK FLUSH 10 ML IV PUSH ×3 (05:39→21:16)
[2025-02-24] MEDS: LEVOTHYROXINE SODIUM 88 MCG TABLET PO (05:39)
[2025-02-24 05:49] LABS: Alanine Aminotransferase 12 U/L (6-35); Albumin Level 2.3 g/dL (3.5-5.1); Alkaline Phosphatase 99 U/L (38-126); Anion Gap 8 mmol/L (4-12); Aspartate Amino Transferase 19 U/L (14-36); Bilirubin,Total 0.4 mg/dL (0.2-1.3); Blood Urea Nitrogen 25 mg/dL (7-17); Calcium 8.3 mg/dL (8.4-10.2); Carbon Dioxide 20 mmol/L (22-30); Chloride 107 mmol/L (98-107); Estimated CRCL calculation 25 ml/min; Estimated Glomerular Filt Rate 25; Glucose 77 mg/dL (65-110); Potassium 3.7 mmol/L (3.4-5.0); Sodium 135 mmol/L (137-145)
[2025-02-24] MEDS: UMECLIDINIUM/VILANTEROL 62.5-25 MCG ELLIPTA 1 PUFF INHALATION (07:45)
--- NOTE | 2025-02-24 07:46 | P.PNUR_ITS ---
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 Start to instruct patient on intermittent self catheterization 2-3 times daily. Supplies can be obtained from the office. We will contact patient Subjective Subjective Date/Time Seen: 02/24/25 07:46 Interval history: Rao catheter has been removed. Patient is found have a bladder scan of 500 cc. She was straight cathed with relief of suprapubic discomfort. 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 Urine culture 02/11 showed Enterococcus and E coli Exam Narrative: Resting comfortably. No acute distress Objective Data Vital Signs Vital Signs: Vital Signs - 24 hr 02/23/25 07:55 02/23/25 08:19 02/23/25 08:19 Temperature Pulse Rate 72 79 Respiratory Rate 16 Blood Pressure Pulse Oximetry 97 Oxygen Delivery Room Air Fraction of Inspired Oxygen 02/23/25 14:00 02/23/25 14:06 02/23/25 14:14 Temperature 99.2 F Pulse Rate 80 80 79 Respiratory Rate 16 16 16 Blood Pressure 102/43 L Pulse Oximetry 95 Oxygen Delivery Fraction of Inspired Oxygen 02/23/25 19:59 02/23/25 20:00 02/23/25 20:02 Temperature Pulse Rate 81 Respiratory Rate 16 Blood Pressure Pulse Oximetry 95 Oxygen Delivery Room Air Room Air Fraction of Inspired Oxygen 02/23/25 20:09 02/23/25 21:19 02/23/25 22:00 Temperature 98.6 F Pulse Rate 81 86 75 Respiratory Rate 16 18 Blood Pressure 134/62 Pulse Oximetry 94 Oxygen Delivery Fraction of Inspired Oxygen 02/24/25 02:14 02/24/25 02:25 02/24/25 05:24 Temperature 98.2 F Pulse Rate 81 81 87 Respiratory Rate 16 16 20 Blood Pressure 143/65 H Pulse Oximetry 92 Oxygen Delivery Fraction of Inspired Oxygen 02/24/25 07:34 02/24/25 07:34 Temperature Pulse Rate 81 Respiratory Rate 16 Blood Pressure Pulse Oximetry 91 Oxygen Delivery Room Air Fraction of Inspired Oxygen 21 Intake/Output Intake/Output: Intake & Output 02/21/25 02/22/25 02/23/25 02/24/25 23:59 23:59 23:59 23:59 Intake Total 900 1270 1664 200 Output Total 900 750 600 525 Balance 0 520 1064 -325 Meds/Results Medications: Active Medications Generic Name Dose Route Start Last Admin Trade Name Freq PRN Reason Stop Dose Admin Acetaminophen 650 mg 02/11/25 20:54 02/15/25 12:09 Acetaminophen 325 Mg Tablet PO 650 mg Q4H PRN Administration Mild Pain (1-3) or Fever Albuterol/Ipratropium 3 ml 02/12/25 08:00 02/24/25 07:34 Ipratropium 0.5 Mg/Albuterol Sulfate 2.5 Mg Ampul.Neb 3 Ml INHALATION 3 ml Q6HRT ENEDELIA Administration Apixaban 5 mg 02/12/25 09:00 02/23/25 21:20 Apixaban 5 Mg Tablet PO 5 mg Q12HR ENEDELIA Administration Calcium Carbonate 200 mg 02/12/25 02:37 Calcium Carbonate (Tums) 500 Mg (200 Mg Elemental) PO QID PRN dyspepsia Calcium Carbonate 500 mg 02/14/25 12:00 02/23/25 16:14 Calcium Carbonate (Oscal) 500 Mg Tablet PO 500 mg TIDWM ENEDELIA Administration Carvedilol 25 mg 02/12/25 09:00 02/23/25 21:19 Carvedilol 25 Mg Tablet PO 25 mg Q12HR ENEDELIA Administration Clopidogrel Bisulfate 75 mg 02/12/25 09:00 02/23/25 08:20 Clopidogrel Bisulfate 75 Mg Tablet PO 75 mg QAM ENEDELIA Administration Felodipine 10 mg 02/12/25 09:00 02/23/25 08:20 Felodipine 5 Mg Tab Cr PO 10 mg QAM ENEDELIA Administration Isosorbide Mononitrate 30 mg 02/12/25 09:00 02/23/25 08:20 Isosorbide Mononitrate 30 Mg Tab.Er.24h PO 30 mg DAILY ENEDELIA Administration Levothyroxine Sodium 88 mcg 02/12/25 06:30 02/24/25 05:39 Levothyroxine Sodium 88 Mcg Tablet PO 88 mcg DAILY@0630 ENEDELIA Administration Miscellaneous Information 1 each 02/20/25 00:01 [place] Needs To Be Renewed Or It Will Automatically Discontinue. XX 03/22/25 00:00 CLARIFY ENEDELIA Morphine Sulfate 2 mg 02/14/25 10:36 02/14/25 16:03 Morphine Sulfate (*Crx) 2 Mg/Ml Inj IV PUSH 2 mg Q4H PRN Administration Pain Rated 7-10 Nitroglycerin 0.4 mg 02/12/25 02:37 Nitroglycerin Sl 0.4 Mg Tablet SUBLINGUAL Q5M PRN Chest Pain Ondansetron HCl 4 mg 02/11/25 20:54 02/22/25 17:32 Ondansetron Inj 4 Mg/2 Ml Vial IV PUSH 4 mg Q4H PRN Administration Nausea Oxybutynin Chloride 15 mg 02/12/25 09:00 02/23/25 08:20 Oxybutynin Chloride Xl 5 Mg Tab.Er.24 PO 15 mg DAILY ENEDELIA Administration Pantoprazole Sodium 40 mg 02/12/25 02:55 02/22/25 08:31 Pantoprazole 40 Mg Tablet PO 40 mg DAILY PRN Administration acid reflux Promethazine HCl 12.5 mg 02/14/25 10:29 02/16/25 20:52 Promethazine Hcl 25 Mg/Ml Ampul IV PUSH 12.5 mg Q6H PRN Administration Nausea And Vomiting Ranolazine 500 mg 02/12/25 09:00 02/23/25 21:20 Ranolazine 500 Mg Tab.Er.12h PO 500 mg Q12HR ENEDELIA Administration Rosuvastatin Calcium 40 mg 02/12/25 09:00 02/23/25 08:20 Rosuvastatin 20 Mg Tablet PO 40 mg DAILY ENEDELIA Administration Sodium Chloride 10 ml 02/17/25 14:00 02/24/25 05:39 Saline Lock Flush IV PUSH 10 ml Q8HR ENEDELIA Administration Sodium Chloride 10 ml 02/17/25 11:13 Saline Lock Flush IV PUSH PRN PRN Flush Sodium Chloride 20 ml 02/17/25 11:13 Saline Lock Flush IV PUSH PRN PRN after blood draws Umeclidinium/Vilanterol 1 puff 02/12/25 08:00 02/24/25 07:45 Umeclidinium/Vilanterol 62.5-25 Mcg Ellipta INHALATION 1 puff DAILYRT ENEDELIA Administration Radiology Results: ITS Impressions Abdomen/Pelvis CT 02/11/25 19:34 IMPRESSION: Left basilar consolidation, an interval change from prior. Findings within the colon suggesting a diarrheal illness, for which clinical correlation is needed. Chest X-Ray 02/11/25 19:58 IMPRESSION: No focal infiltrate or effusion. Venous Doppler Study 02/12/25 11:17 IMPRESSION: 1: No lower extremity deep venous thrombosis. Renal Ultrasound 02/12/25 11:18 Impression: 1: Mild right hydronephrosis. Labs Labs: Laboratory Results - last 24 hr 02/24/25 04:43 WBC 12.1 H RBC 2.91 L Hgb 8.8 L Hct 27.7 L MCV 95.2 MCH 30.2 MCHC 31.8 L RDW 17.9 H Plt Count 193 MPV 10.5 H Sodium 135 L Potassium 3.7 Chloride 107 Carbon Dioxide 20 L Anion Gap 8 BUN 25 H Creatinine 1.98 H Estim Creat Clear Calc 25 Estimated GFR 25 L Glucose 77 Calcium 8.3 L Total Bilirubin 0.4 AST 19 ALT 12 Alkaline Phosphatase 99 Total Protein 6.0 L Albumin 2.3 L
[2025-02-24] MEDS: FELODIPINE 5 MG TAB CR 10 MG PO (08:25)
[2025-02-24] MEDS: ISOSORBIDE MONONITRATE 30 MG TAB.ER.24H PO (08:25)
[2025-02-24] MEDS: RANOLAZINE 500 MG TAB.ER.12H PO ×2 (08:25→21:15)
[2025-02-24] MEDS: ROSUVASTATIN 20 MG TABLET 40 MG PO (08:25)
[2025-02-24] MEDS: CALCIUM CARBONATE (OSCAL) 500 MG TABLET PO ×3 (08:25→17:31)
[2025-02-24] MEDS: oxyBUTYnin CHLORIDE XL 5 MG TAB.ER.24 15 MG PO (08:25)
[2025-02-24] MEDS: carvediloL 25 MG TABLET PO ×2 (08:25→21:15)
[2025-02-24] MEDS: APIXABAN 5 MG TABLET PO ×2 (08:25→21:15)
[2025-02-24] MEDS: CLOPIDOGREL BISULFATE 75 MG TABLET PO (08:26)
--- NOTE | 2025-02-24 08:44 | P.PNIM_ITS ---
Progress Note: A&P Assessment and Plan (1) Sepsis: Qualifiers: Acute renal failure type: unspecified Sepsis acute organ dysfunction status: with acute organ dysfunction Sepsis type: sepsis due to unspecified or ganism Severe sepsis acute organ dysfunction type: acute renal failure Severe sepsis shock status: without septic shock Qualified Code(s): A41.9 - Sepsis, unspecified organism; R65.20 - Severe sepsis without septic shock; N17.9 - Acute kidney failure, unspecified Code(s): A41.9 - Sepsis, unspecified organism Status: Acute (2) Diarrhea: Qualifiers: Diarrhea type: infectious Qualified Code(s): A09 - Infectious gastroenteritis and colitis, unspecified Code(s): R19.7 - Diarrhea, unspecified Status: Acute (3) Acute respiratory failure with hypoxia: Code(s): J96.01 - Acute respiratory failure with hypoxia Status: Acute (4) Acute UTI: Code(s): N39.0 - Urinary tract infection, site not specified Status: Acute (5) Acute kidney injury: Code(s): N17.9 - Acute kidney failure, unspecified Status: Acute (6) Chronic kidney disease, stage 3: Qualifiers: Chronic kidney disease stage 3 subtype: stage 3a (GFR 45-59) Qualified Code(s): N18.31 - Chronic kidney disease, stage 3a Code(s): N18.30 - Chronic kidney disease, stage 3 unspecified Status: Chronic (7) Chronic anticoagulation: Code(s): Z79.01 - drafter (cad) electrical (current) use of anticoagulants Status: Acute Plan Interval history: Florecita Gayle, a 69-year-old female with a complex medical history including: deep venous thrombosis and pulmonary embolism (2014), coronary artery disease with stent placement (2014), atrial fibrillation on Eliquis, chronic kidney disease, COPD, and retroperitoneal fibrosis. Her surgical history includes radical nephrectomy for left kidney cancer, splenectomy, and cholecystectomy. She was treated for a left lower lobe pneumonia in January of this year, with a recent chest X-ray showing no evidence of recurrence.Patient was admitted recently 01/13-01/28 diagnosed with PE. She is currently hospitalized lower extremity swelling and urinary tract infection, for which she is receiving meropenem. .Currently patient is been followed by GI due to diarrhea and low hemoglobin. Patient is also followed by Nephrology due to creatinine 5.12. Patient underwent EGD which shows mild diffuse gastritis without any findings to explain chronic blood loss. Patient still requires colonoscopy and prefers to do as outpatient. Cr is improving still not in baseline. Ordered stool studies which shows no significant finding As mentioned previously patient family does not want to hold Eliquis and wants colonoscopy to performed in the hospital before the discharge. Discussed with Gastroenterology he can do the colonoscopy with the large volume prep otherwise the colonoscopy will fail again. Patient is currently on Eliquis and clopidogrel. Hematology consulted and pending recommendation. Urology recommend straight catheterization 2-3 times daily. Sepsis From pneumonia and diarrhea CT AP showed diarrhea disease and LLL Pneumonia Blood cultures Continue Meropenem, Doxy and Linezolid s/p IVF monitor Pneumonia LLL pneumonia per CT AP WBC 13.5 from 29.4 Continue above care Diarrhea No inflammation per CT Patient noted much improvement, however, of noted she has been on imodium since onset and thus has likely arrested the diarrhea continue above care and IVF Order stool studies JOSR on CKD Improving Cr 1.91 from 6.19 From dehydration Continue IVF Iron deficiency anemia r/o GI bleed 0 02/22 hemoglobin 6.9 Transfuse 1 unit PRBC Consulted Oncology Patient had a recent PE last month and was started on Eliquis Endoscopy shows mild gastritis Colonoscopy as outpatient GI following UTI urine culture positive for E coli and VRE Completed Linezolid Completed meropenem monitor PE Eliquis on hold Plavix on hold Venous doppler negative for DVT HTN titrate home meds with clinical course PAD s/p stent Plavix on hold continue Home meds JANNY on CPAP Mild right hydronephrosis US reviewed Follow up with Urology outpatient DVT prophylaxis Eliquis on hold due to GI bleed Subjective Date/time seen: 02/24/25 08:44 Interval history: As mentioned previously patient family does not want to hold Eliquis and wants colonoscopy to performed in the hospital before the discharge. Discussed with Gastroenterology he can do the colonoscopy with the large volume prep otherwise the colonoscopy will fail again. Patient is currently on Eliquis and clopidogrel. Hematology consulted and pending recommendation. Urology recommend straight catheterization 2-3 times daily.Discussed with patient and agrees to drink golytely and perform colonoscopy Review of Systems Review of Systems: 12 systems were reviewed with pertinent positives and negatives per HPI. Except as documented in the HPI, all other systems were reviewed and are negative. All systems reviewed & are unremarkable except as noted in HPI and below Constitutional: Constitutional: Reports no additional constitutional complaints, Reports lethargy and Reports weakness ENT: Reports system reviewed and no additional complaints, except as documented Cardiovascular: Cardiovascular: Reports no additional cardiovascular compl aints, Denies chest pain, Reports pedal edema and Reports leg edema Respiratory: Respiratory: Reports no additional respiratory complaints Gastrointestinal: Gastrointestinal: Reports no additional gastrointestinal complaints, Denies abdominal pain, Denies constipation and Reports diarrhea Genitourinary: Genitourinary: Reports as per HPI Musculoskeletal: Musculoskeletal: Reports myalgias and Reports stiffness Neurologic: Reports weakness Exam Narrative: Weight 71.4 kg BMI 27.9 Const: General: comfortable and no acute distress Other: Acutely ill-appearing, appears older than stated age, height weight proportionate HENMT: Face/Nose/Sinus: Normal nares present Other: Mucous membranes are dry, edentulous in upper and lower jaw, head is normocephalic atraumatic Eyes: General: appearance normal, both eyes and all related structures Other: Positive conjunctival pallor, no scleral icterus, pupils are equal and reactive with evidence of bilateral lens replacements Neck: Neck: supple Other: No JVD, no lymphadenopathy Resp: Effort & Inspection: normal respiratory effort Auscultation: clear to auscultation bilaterally Other: Clear to auscultation bilaterally, no increased work of breathing Cardio: Rate: regular rate Rhythm: regular rhythm Other: Regular rate, regular rhythm, 2+ bilateral radial and pedal pulses, no murmur GI: Inspection: non-distended Auscultation: normal bowel sounds Other: Soft, nontender, nondistended, positive bowel sounds, no organomegaly : Other: Depends in place Urinary Catheter: Urinary Catheter: patent and draining and urine cloudy Skin: General skin exam: normal color Other: Jaundice, underlying pallor, bruising to the tops of the feet bilaterally, skin of the lower extremities is tight and shiny Neuro: Speech: normal speech Other: Alert orient x4, speech is clear, no facial asymmetry Extrem: General: edema bilateral (lower extremities) and pedal edema Other: Marked edema bilateral lower extremities which is symmetrical, bruising to the dorsum of the feet bilaterally on the right side more to the toes on the left 8 just proximal to the toes, patient moves all extremities equally, 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 Psych: Mental Status: mental status grossly normal Speech and movement: Normal speech and movement present Affect: normal affect Objective Data Vital Signs Vital Signs: Vital Signs - 24 hr 02/23/25 14:00 02/23/25 14:06 02/23/25 14:14 Temperature 99.2 F Pulse Rate 80 80 79 Respiratory Rate 16 16 16 Blood Pressure 102/43 L Pulse Oximetry 95 Oxygen Delivery Fraction of Inspired Oxygen 02/23/25 19:59 02/23/25 20:00 02/23/25 20:02 Temperature Pulse Rate 81 Respiratory Rate 16 Blood Pressure Pulse Oximetry 95 Oxygen Delivery Room Air Room Air Fraction of Inspired Oxygen 02/23/25 20:09 02/23/25 21:19 02/23/25 22:00 Temperature 98.6 F Pulse Rate 81 86 75 Respiratory Rate 16 18 Blood Pressure 134/62 Pulse Oximetry 94 Oxygen Delivery Fraction of Inspired Oxygen 02/24/25 02:14 02/24/25 02:25 02/24/25 05:24 Temperature 98.2 F Pulse Rate 81 81 87 Respiratory Rate 16 16 20 Blood Pressure 143/65 H Pulse Oximetry 92 Oxygen Delivery Fraction of Inspired Oxygen 02/24/25 07:34 02/24/25 07:34 02/24/25 07:45 Temperature Pulse Rate 81 80 Respiratory Rate 16 16 Blood Pressure Pulse Oximetry 91 Oxygen Delivery Room Air Fraction of Inspired Oxygen 21 02/24/25 08:24 02/24/25 08:25 Temperature 98.1 F Pulse Rate 81 81 Respiratory Rate 14 Blood Pressure 151/69 H Pulse Oximetry 94 Oxygen Delivery Fraction of Inspired Oxygen Intake/Output Intake/Output: Intake & Output 02/21/25 02/22/25 02/23/25 02/24/25 23:59 23:59 23:59 23:59 Intake Total 900 1270 1664 200 Output Total 900 750 600 525 Balance 0 520 1064 -325 Meds/Results Medications: Active Medications Generic Name Dose Route Start Last Admin Trade Name Freq PRN Reason Stop Dose Admin Acetaminophen 650 mg 02/11/25 20:54 02/15/25 12:09 Acetaminophen 325 Mg Tablet PO 650 mg Q4H PRN Administration Mild Pain (1-3) or Fever Albuterol/Ipratropium 3 ml 02/12/25 08:00 02/24/25 07:34 Ipratropium 0.5 Mg/Albuterol Sulfate 2.5 Mg Ampul.Neb 3 Ml INHALATION 3 ml Q6HRT ENEDELIA Administration Apixaban 5 mg 02/12/25 09:00 02/24/25 08:25 Apixaban 5 Mg Tablet PO 5 mg Q12HR ENEDELIA Administration Calcium Carbonate 200 mg 02/12/25 02:37 Calcium Carbonate (Tums) 500 Mg (200 Mg Elemental) PO QID PRN dyspepsia Calcium Carbonate 500 mg 02/14/25 12:00 02/24/25 08:25 Calcium Carbonate (Oscal) 500 Mg Tablet PO 500 mg TIDWM ENEDELIA Administration Carvedilol 25 mg 02/12/25 09:00 02/24/25 08:25 Carvedilol 25 Mg Tablet PO 25 mg Q12HR ENEDELIA Administration Clopidogrel Bisulfate 75 mg 02/12/25 09:00 02/24/25 08:26 Clopidogrel Bisulfate 75 Mg Tablet PO 75 mg QAM [facility] Administration Felodipine 10 mg 02/12/25 09:00 02/24/25 08:25 Felodipine 5 Mg Tab Cr PO 10 mg QAM [facility] Administration Isosorbide Mononitrate 30 mg 02/12/25 09:00 02/24/25 08:25 Isosorbide Mononitrate 30 Mg Tab.Er.24h PO 30 mg DAILY [facility] Administration Levothyroxine Sodium 88 mcg 02/12/25 06:30 02/24/25 05:39 Levothyroxine Sodium 88 Mcg Tablet PO 88 mcg DAILY@0630 [facility] Administration Miscellaneous Information 1 each 02/20/25 00:01 [place] Needs To Be Renewed Or It Will Automatically Discontinue. XX 03/22/25 00:00 CLARIFY [facility] Morphine Sulfate 2 mg 02/14/25 10:36 02/14/25 16:03 Morphine Sulfate (*Crx) 2 Mg/Ml Inj IV PUSH 2 mg Q4H PRN Administration Pain Rated 7-10 Nitroglycerin 0.4 mg 02/12/25 02:37 Nitroglycerin Sl 0.4 Mg Tablet SUBLINGUAL Q5M PRN Chest Pain Ondansetron HCl 4 mg 02/11/25 20:54 02/22/25 17:32 Ondansetron Inj 4 Mg/2 Ml Vial IV PUSH 4 mg Q4H PRN Administration Nausea Oxybutynin Chloride 15 mg 02/12/25 09:00 02/24/25 08:25 Oxybutynin Chloride Xl 5 Mg Tab.Er.24 PO 15 mg DAILY ENEDELIA Administration Pantoprazole Sodium 40 mg 02/12/25 02:55 02/22/25 08:31 Pantoprazole 40 Mg Tablet PO 40 mg DAILY PRN Administration acid reflux Promethazine HCl 12.5 mg 02/14/25 10:29 02/16/25 20:52 Promethazine Hcl 25 Mg/Ml Ampul IV PUSH 12.5 mg Q6H PRN Administration Nausea And Vomiting Ranolazine 500 mg 02/12/25 09:00 02/24/25 08:25 Ranolazine 500 Mg Tab.Er.12h PO 500 mg Q12HR ENEDELIA Administration Rosuvastatin Calcium 40 mg 02/12/25 09:00 02/24/25 08:25 Rosuvastatin 20 Mg Tablet PO 40 mg DAILY ENEDELIA Administration Sodium Chloride 10 ml 02/17/25 14:00 02/24/25 05:39 Saline Lock Flush IV PUSH 10 ml Q8HR ENEDELIA Administration Sodium Chloride 10 ml 02/17/25 11:13 Saline Lock Flush IV PUSH PRN PRN Flush Sodium Chloride 20 ml 02/17/25 11:13 Saline Lock Flush IV PUSH PRN PRN after blood draws Umeclidinium/Vilanterol 1 puff 02/12/25 08:00 02/24/25 07:45 Umeclidinium/Vilanterol 62.5-25 Mcg Ellipta INHALATION 1 puff DAILYRT ENEDELIA Administration Radiology Results: ITS Impressions Abdomen/Pelvis CT 02/11/25 19:34 IMPRESSION: Left basilar consolidation, an interval change from prior. Findings within the colon suggesting a diarrheal illness, for which clinical correlation is needed. Chest X-Ray 02/11/25 19:58 IMPRESSION: No focal infiltrate or effusion. Venous Doppler Study 02/12/25 11:17 IMPRESSION: 1: No lower extremity deep venous thrombosis. Renal Ultrasound 02/12/25 11:18 Impression: 1: Mild right hydronephrosis. Labs Labs: Laboratory Results - last 24 hr 02/24/25 04:43 WBC 12.1 H RBC 2.91 L Hgb 8.8 L Hct 27.7 L MCV 95.2 MCH 30.2 MCHC 31.8 L RDW 17.9 H Plt Count 193 MPV 10.5 H Sodium 135 L Potassium 3.7 Chloride 107 Carbon Dioxide 20 L Anion Gap 8 BUN 25 H Creatinine 1.98 H Estim Creat Clear Calc 25 Estimated GFR 25 L Glucose 77 Calcium 8.3 L Total Bilirubin 0.4 AST 19 ALT 12 Alkaline Phosphatase 99 Total Protein 6.0 L Albumin 2.3 L Quality VTE Prophylaxis VTE prophylaxis: pharmacologic ordered (Continue home Eliquis) Hospitalist MIPS Advance Care Plan I have confirmed that the patient's Advanced Care Plan is present, code status is documented, or surrogate decision maker is listed in patient medical record.: Yes Medication Reconciliation I have utilized all available resources to obtain, update and review the patients current medications (includes all prescriptions, OTC, herbals, cannabis, and nutritional supplements).: Yes
--- NOTE | 2025-02-24 11:15 | P.PNNP_ITS ---
Progress Note: A&P Assessment and Plan (1) Acute kidney injury: Code(s): N17.9 - Acute kidney failure, unspecified Status: Acute Assessment and Plan: * improving * as evidenced by admission labs * multifactorial etiology: * prerenal factors (diarrhea) * urinary retention * early sepsis/infection (UTI + pneumonia) * evaluation to date noted: * renal u/s with mild right hydronephrosis * urology following. they see as an outpatient * bladder scan with evidence of urinary retention * urine electrolytes non prerenal * urine eosinophils negative * CPK normal * UA suggestive of infection * proteinuria noted * continue to follow trend of repeat labs and UOP (2) Chronic kidney disease, stage 3: Qualifiers: Chronic kidney disease stage 3 subtype: stage 3a (GFR 45-59) Qualified Code(s): N18.31 - Chronic kidney disease, stage 3a Code(s): N18.30 - Chronic kidney disease, stage 3 unspecified Status: Chronic Assessment and Plan: * baseline creatinine runs around 1.4 - 1.9mg/dl in the last few years * however, has been as low as 0.9 - 1.1mg/dl * secondary to solitary kidney (and associated loss of nephron mass), hypertension, and age-related change * possible new baseline creatinine (~ 1.9 - 2.1mg/dl)... (3) Anemia: Code(s): D64.9 - Anemia, unspecified Status: Acute Assessment and Plan: * noted drop in H/H by AM labs (on 02/13 and 02/22) * PRBC transfusion per protocol * anemia studies with iron deficiency * complicated by recent start of Eliquis for PE (was on hold but resumed) * GI following: * EGD -- mild diffuse gastritis without any findings * colonoscopy - deferred due to inadequate prep * empiric Epogen dosing x 1 * follow trend of H/H (4) Urinary tract infection: Code(s): N39.0 - Urinary tract infection, site not specified Status: Acute Assessment and Plan: * admission UA highly suggestive * on antibiotic therapy * urine culture with E.coli and VRE (5) Pneumonia: Code(s): J18.9 - Pneumonia, unspecified organism Status: Acute Assessment and Plan: * as suggested by admission imaging * blood culture negative to date * on antibiotics (6) Bilateral lower extremity edema: Code(s): R60.0 - Localized edema Status: Acute Assessment and Plan: * noted on admission * related to JOSR/ARF(?) * possible venous insufficiency/circulation issues (has known PAD) * venous dopplers negative for DVT * related to proteinuria(?) * follow clinical exam (7) Acute urinary retention: Code(s): R33.8 - Other retention of urine Status: Acute Assessment and Plan: * as noted by renal ultrasound and bladders scan * Urology recommendations noted * calles out * bladders can qshift and PRN * straight catheterization if bladder scan > 500cc (8) Essential hypertension: Code(s): I10 - Essential (primary) hypertension Status: Chronic Assessment and Plan: * reasonable control * follow trend of hemodynamics Will continue to follow. L Subjective Date/time seen: 02/24/25 11:15 Interval history: Follow-up for acute kidney injury/acute renal failure on chronic kidney disease. Renal function/creatinine remains relatively stable at this time; calles catheter removed but clear evidence of urinary retention by bladder scan requiring straight catheterization; H/H relatively stable at this time with Hematology consult pending; no other acute issues/events noted at this time. Exam 2 Narrative: General: elderly (appears older than stated age) WD/WN female in NAD Heart: normal S1 and S2; no rub Lungs: clear to auscultation Abdomen: soft, nontender, nondistended, positive bowel sounds Extremities: no cyanosis or clubbing; 1+ edema Skin: warm and intact Objective Data Vital Signs Vital Signs: Laboratory Tests 02/24/25 04:43 02/24/25 04:43 Calcium 8.3 L Total Bilirubin 0.4 AST 19 ALT 12 Alkaline Phosphatase 99 Total Protein 6.0 L Albumin 2.3 L Intake/Output Intake/Output: Intake & Output 02/21/25 02/22/25 02/23/25 02/24/25 23:59 23:59 23:59 23:59 Intake Total 900 1270 1664 440 Output Total 900 750 600 525 Balance 0 520 1064 -85 Meds/Results Medications: Active Medications Generic Name Dose Route Start Last Admin Trade Name Freq PRN Reason Stop Dose Admin Acetaminophen 650 mg 02/11/25 20:54 02/15/25 12:09 Acetaminophen 325 Mg Tablet PO 650 mg Q4H PRN Administration Mild Pain (1-3) or Fever Albuterol/Ipratropium 3 ml 02/12/25 08:00 02/24/25 07:34 Ipratropium 0.5 Mg/Albuterol Sulfate 2.5 Mg Ampul.Neb 3 Ml INHALATION 3 ml Q6HRT ENEDELIA Administration Apixaban 5 mg 02/12/25 09:00 02/24/25 08:25 Apixaban 5 Mg Tablet PO 5 mg Q12HR ENEDELIA Administration Calcium Carbonate 200 mg 02/12/25 02:37 Calcium Carbonate (Tums) 500 Mg (200 Mg Elemental) PO QID PRN dyspepsia Calcium Carbonate 500 mg 02/14/25 12:00 02/24/25 08:25 Calcium Carbonate (Oscal) 500 Mg Tablet PO 500 mg TIDWM ENEDELIA Administration Carvedilol 25 mg 02/12/25 09:00 02/24/25 08:25 Carvedilol 25 Mg Tablet PO 25 mg Q12HR ENEDELIA Administration Clopidogrel Bisulfate 75 mg 02/12/25 09:00 02/24/25 08:26 Clopidogrel Bisulfate 75 Mg Tablet PO 75 mg QAM ENEDELIA Administration Felodipine 10 mg 02/12/25 09:00 02/24/25 08:25 Felodipine 5 Mg Tab Cr PO 10 mg QAM [facility] Administration Isosorbide Mononitrate 30 mg 02/12/25 09:00 02/24/25 08:25 Isosorbide Mononitrate 30 Mg Tab.Er.24h PO 30 mg DAILY ENEDELIA Administration Levothyroxine Sodium 88 mcg 02/12/25 06:30 02/24/25 05:39 Levothyroxine Sodium 88 Mcg Tablet PO 88 mcg DAILY@0630 [facility] Administration Miscellaneous Information 1 each 02/20/25 00:01 [place] Needs To Be Renewed Or It Will Automatically Discontinue. XX 03/22/25 00:00 CLARIFY [facility] Nitroglycerin 0.4 mg 02/12/25 02:37 Nitroglycerin Sl 0.4 Mg Tablet SUBLINGUAL Q5M PRN Chest Pain Ondansetron HCl 4 mg 02/11/25 20:54 02/22/25 17:32 Ondansetron Inj 4 Mg/2 Ml Vial IV PUSH 4 mg Q4H PRN Administration Nausea Oxybutynin Chloride 15 mg 02/12/25 09:00 02/24/25 08:25 Oxybutynin Chloride Xl 5 Mg Tab.Er.24 PO 15 mg DAILY ENEDELIA Administration Pantoprazole Sodium 40 mg 02/12/25 02:55 02/22/25 08:31 Pantoprazole 40 Mg Tablet PO 40 mg DAILY PRN Administration acid reflux Promethazine HCl 12.5 mg 02/14/25 10:29 02/16/25 20:52 Promethazine Hcl 25 Mg/Ml Ampul IV PUSH 12.5 mg Q6H PRN Administration Nausea And Vomiting Ranolazine 500 mg 02/12/25 09:00 02/24/25 08:25 Ranolazine 500 Mg Tab.Er.12h PO 500 mg Q12HR ENEDELIA Administration Rosuvastatin Calcium 40 mg 02/12/25 09:00 02/24/25 08:25 Rosuvastatin 20 Mg Tablet PO 40 mg DAILY ENEDELIA Administration Sodium Chloride 10 ml 02/17/25 14:00 02/24/25 05:39 Saline Lock Flush IV PUSH 10 ml Q8HR ENEDELIA Administration Sodium Chloride 10 ml 02/17/25 11:13 Saline Lock Flush IV PUSH PRN PRN Flush Sodium Chloride 20 ml 02/17/25 11:13 Saline Lock Flush IV PUSH PRN PRN after blood draws Umeclidinium/Vilanterol 1 puff 02/12/25 08:00 02/24/25 07:45 Umeclidinium/Vilanterol 62.5-25 Mcg Ellipta INHALATION 1 puff DAILYRT ENEDELIA Administration Radiology Results: ITS Impressions Abdomen/Pelvis CT 02/11/25 19:34 IMPRESSION: Left basilar consolidation, an interval change from prior. Findings within the colon suggesting a diarrheal illness, for which clinical correlation is needed. Chest X-Ray 02/11/25 19:58 IMPRESSION: No focal infiltrate or effusion. Venous Doppler Study 02/12/25 11:17 IMPRESSION: 1: No lower extremity deep venous thrombosis. Renal Ultrasound 02/12/25 11:18 Impression: 1: Mild right hydronephrosis. Labs Labs: Laboratory Tests 02/24/25 04:43 02/24/25 04:43 Calcium 8.3 L Total Bilirubin 0.4 AST 19 ALT 12 Alkaline Phosphatase 99 Total Protein 6.0 L Albumin 2.3 L
[2025-02-24 13:05] LABS: Toxigenic C. Diff NEGATIVE (NEGATIVE)
--- NOTE | 2025-02-24 16:18 | P.PNGI_ITS ---
Progress Note: A&P Assessment and Plan (1) Iron deficiency anemia: Code(s): D50.9 - Iron deficiency anemia, unspecified Status: Acute Assessment and Plan: the patient is willing to undergo a 3rd attempt at colonoscopy. Will do 2 day prep with MiraLax while hospitalized, orders placed to prep her tonight and tomorrow and attempt again on Monday02/26/2025. Subjective Date/time seen: 02/24/25 16:18 Objective Data Vital Signs Vital Signs: Vital Signs - 24 hr 02/23/25 19:59 02/23/25 20:00 02/23/25 20:02 Temperature Pulse Rate 81 Respiratory Rate 16 Blood Pressure Pulse Oximetry 95 Oxygen Delivery Room Air Room Air Fraction of Inspired Oxygen 02/23/25 20:09 02/23/25 21:19 02/23/25 22:00 Temperature 98.6 F Pulse Rate 81 86 75 Respiratory Rate 16 18 Blood Pressure 134/62 Pulse Oximetry 94 Oxygen Delivery Fraction of Inspired Oxygen 02/24/25 02:14 02/24/25 02:25 02/24/25 05:24 Temperature 98.2 F Pulse Rate 81 81 87 Respiratory Rate 16 16 20 Blood Pressure 143/65 H Pulse Oximetry 92 Oxygen Delivery Fraction of Inspired Oxygen 02/24/25 07:34 02/24/25 07:34 02/24/25 07:45 Temperature Pulse Rate 81 80 Respiratory Rate 16 16 Blood Pressure Pulse Oximetry 91 Oxygen Delivery Room Air Fraction of Inspired Oxygen 02/24/25 08:24 02/24/25 08:25 02/24/25 08:25 Temperature 98.1 F Pulse Rate 81 81 Respiratory Rate 14 Blood Pressure 151/69 H Pulse Oximetry 94 94 Oxygen Delivery Room Air Fraction of Inspired Oxygen 02/24/25 13:19 02/24/25 13:19 02/24/25 13:34 Temperature Pulse Rate 77 78 Respiratory Rate 18 20 Blood Pressure Pulse Oximetry 91 Oxygen Delivery Room Air Fraction of Inspired Oxygen 02/24/25 14:00 Temperature 97.8 F Pulse Rate 77 Respiratory Rate 12 Blood Pressure 103/45 L Pulse Oximetry 91 Oxygen Delivery Fraction of Inspired Oxygen Intake/Output Intake/Output: Intake & Output 02/21/25 02/22/25 02/23/25 02/24/25 23:59 23:59 23:59 23:59 Intake Total 900 1270 1664 680 Output Total 900 750 600 525 Balance 0 520 1064 155 Meds/Results Medications: Active Medications Generic Name Dose Route Start Last Admin Trade Name Freq PRN Reason Stop Dose Admin Acetaminophen 650 mg 02/11/25 20:54 02/15/25 12:09 Acetaminophen 325 Mg Tablet PO 650 mg Q4H PRN Administration Mild Pain (1-3) or Fever Albuterol/Ipratropium 3 ml 02/12/25 08:00 02/24/25 13:19 Ipratropium 0.5 Mg/Albuterol Sulfate 2.5 Mg Ampul.Neb 3 Ml INHALATION 3 ml Q6HRT ENEDELIA Administration Apixaban 5 mg 02/12/25 09:00 02/24/25 08:25 Apixaban 5 Mg Tablet PO 5 mg Q12HR ENEDELIA Administration Calcium Carbonate 200 mg 02/12/25 02:37 Calcium Carbonate (Tums) 500 Mg (200 Mg Elemental) PO QID PRN dyspepsia Calcium Carbonate 500 mg 02/14/25 12:00 02/24/25 11:55 Calcium Carbonate (Oscal) 500 Mg Tablet PO 500 mg TIDWM ENEDELIA Administration Carvedilol 25 mg 02/12/25 09:00 02/24/25 08:25 Carvedilol 25 Mg Tablet PO 25 mg Q12HR ENEDELIA Administration Clopidogrel Bisulfate 75 mg 02/12/25 09:00 02/24/25 08:26 Clopidogrel Bisulfate 75 Mg Tablet PO 75 mg QAM ENEDELIA Administration Felodipine 10 mg 02/12/25 09:00 02/24/25 08:25 Felodipine 5 Mg Tab Cr PO 10 mg QAM [facility] Administration Isosorbide Mononitrate 30 mg 02/12/25 09:00 02/24/25 08:25 Isosorbide Mononitrate 30 Mg Tab.Er.24h PO 30 mg DAILY ENEDELIA Administration Levothyroxine Sodium 88 mcg 02/12/25 06:30 02/24/25 05:39 Levothyroxine Sodium 88 Mcg Tablet PO 88 mcg DAILY@0630 ENEDELIA Administration Miscellaneous Information 1 each 02/20/25 00:01 Shepherd Needs To Be Renewed Or It Will Automatically Discontinue. XX 03/22/25 00:00 CLARIFY ENEDELIA Nitroglycerin 0.4 mg 02/12/25 02:37 Nitroglycerin Sl 0.4 Mg Tablet SUBLINGUAL Q5M PRN Chest Pain Ondansetron HCl 4 mg 02/11/25 20:54 02/22/25 17:32 Ondansetron Inj 4 Mg/2 Ml Vial IV PUSH 4 mg Q4H PRN Administration Nausea Oxybutynin Chloride 15 mg 02/12/25 09:00 02/24/25 08:25 Oxybutynin Chloride Xl 5 Mg Tab.Er.24 PO 15 mg DAILY ENEDELIA Administration Pantoprazole Sodium 40 mg 02/12/25 02:55 02/22/25 08:31 Pantoprazole 40 Mg Tablet PO 40 mg DAILY PRN Administration acid reflux Promethazine HCl 12.5 mg 02/14/25 10:29 02/16/25 20:52 Promethazine Hcl 25 Mg/Ml Ampul IV PUSH 12.5 mg Q6H PRN Administration Nausea And Vomiting Ranolazine 500 mg 02/12/25 09:00 02/24/25 08:25 Ranolazine 500 Mg Tab.Er.12h PO 500 mg Q12HR ENEDELIA Administration Rosuvastatin Calcium 40 mg 02/12/25 09:00 02/24/25 08:25 Rosuvastatin 20 Mg Tablet PO 40 mg DAILY ENEDELIA Administration Sodium Chloride 10 ml 02/17/25 14:00 02/24/25 05:39 Saline Lock Flush IV PUSH 10 ml Q8HR ENEDELIA Administration Sodium Chloride 10 ml 02/17/25 11:13 Saline Lock Flush IV PUSH PRN PRN Flush Sodium Chloride 20 ml 02/17/25 11:13 Saline Lock Flush IV PUSH PRN PRN after blood draws Umeclidinium/Vilanterol 1 puff 02/12/25 08:00 02/24/25 07:45 Umeclidinium/Vilanterol 62.5-25 Mcg Ellipta INHALATION 1 puff DAILYRT ENEDELIA Administration Radiology Results: ITS Impressions Abdomen/Pelvis CT 02/11/25 19:34 IMPRESSION: Left basilar consolidation, an interval change from prior. Findings within the colon suggesting a diarrheal illness, for which clinical correlation is needed. Chest X-Ray 02/11/25 19:58 IMPRESSION: No focal infiltrate or effusion. Venous Doppler Study 02/12/25 11:17 IMPRESSION: 1: No lower extremity deep venous thrombosis. Renal Ultrasound 02/12/25 11:18 Impression: 1: Mild right hydronephrosis. Labs Labs: Laboratory Results - last 24 hr 02/24/25 02/24/25 04:43 11:51 WBC 12.1 H RBC 2.91 L Hgb 8.8 L Hct 27.7 L MCV 95.2 MCH 30.2 MCHC 31.8 L RDW 17.9 H Plt Count 193 MPV 10.5 H Sodium 135 L Potassium 3.7 Chloride 107 Carbon Dioxide 20 L Anion Gap 8 BUN 25 H Creatinine 1.98 H Estim Creat Clear Calc 25 Estimated GFR 25 L Glucose 77 Calcium 8.3 L Total Bilirubin 0.4 AST 19 ALT 12 Alkaline Phosphatase 99 Total Protein 6.0 L Albumin 2.3 L C. difficile (PCR) Negative
--- NOTE | 2025-02-24 18:09 | WPDONCCN ---
Assessment and Plan Assessment and plan (1) Chronic anemia: Code(s): D64.9 - Anemia, unspecified Status: Acute Assessment and Plan: Patient is a 69-year-old female with history of atrial fibrillation, coronary artery disease, hypertension and peripheral arterial disease admitted to the hospital with generalized weakness. Labs showed hemoglobin of 6.4. EGD showed gastritis. Colonoscopy another attempt is planned for February 26. Other labs showed renal insufficiency. Iron level was 21 with iron saturation of 10%. Her anemia is likely multifactorial mostly secondary to anemia of chronic kidney disease with possible element of iron deficiency of unclear etiology. Colonoscopy is planned. We will order soluble transferrin receptor. I will order Procrit [id number] units subQ x1 and then continue that as an outpatient in the office. She will continue oral iron once a day. I provided her my office information for follow-up. HPI Data of Consult Date/Time: 02/24/25 18:09 Requesting Physician: Bev Guzman DO Primary Care Provider: Ricardo Freeman DO Consult Narrative Narrative: Iza Gayle is a 69 year old female with history of atrial fibrillation, coronary artery disease status post stent placement, hypertension and peripheral arterial disease came into the hospital with complain of diarrhea and lower extremity edema. She was complaining of generalized weakness. Labs showed hemoglobin of 6.4. Creatinine was up to 1.98. CT abdomen and pelvis showed left basilar consolidation and dilated fluid filled colon suggestive of diarrheal illness. EGD was performed on February 18 showed gastritis. She denies any bleeding including melena hematochezia. Denies any weight loss. Denies any previous history of malignancy. Plan for colonoscopy noted. Review of Systems Review of Systems: Review of system as per HPI otherwise negative [facility] Past Medical History Medical History Hunner's ulcer Coronary artery disease Chronic obstructive pulmonary disease Chronic kidney disease, stage 3 Abdominal aortic aneurysm mild dilatation of the distal aorta measuring 3.[address] scan in November 2024 Hypercholesterolemia Deep venous thrombosis (2014) Chronic anticoagulation Paroxysmal atrial fibrillation Essential hypertension Gastro-esophageal reflux disease without esophagitis Pulmonary embolism (2015) 2014 and January 2025 History of tobacco abuse Anxiety Gout Osteoporosis Arthritis Cancer of left kidney status post left nephrectomy Ventral hernia Hemorrhoids Sleep apnea does not use CPAP Migraine Glaucoma Hypothyroidism Peripheral vascular disease, unspecified Surgical History Surgical History History of right breast biopsy History of open reduction and internal fixation (ORIF) procedure repair of bilateral wrist and left foot fractures History of cystoscopy History of hernia repair History of vascular surgery bifemoral bypass left femoral and popliteal stents History of ventral hernia repair History of right shoulder replacement History of cholecystectomy History of appendectomy History of left nephrectomy History of splenectomy retroperitoneal fibrosis History of tubal ligation History of cataract extraction History of coronary artery stent placement (2014) Hx of foot surgery History of hysterectomy Family History Family History Mother Family history of Alzheimer's disease, Onset Age: 82 Sibling Family history of diabetes mellitus in first degree relative Diabetes mellitus Family history of congenital heart disease Father Family history of emphysema Family history of congenital heart disease Other Hypertension Social History Social History Social History: The patient reports he lives in her own home. One of her sons lives with her. Her granddaughter Cordelia helps her significantly. She is a former smoker she smoked 0.5 packs of cigarettes per day from the time she was a teenager until age 59. She denies any history of alcohol use or illicit substance use. She ambulates with a Rollator. Code status: Full code. Healthcare power of corporate associate attorney: Cordelia Christianson (granddaughter) Smoking packs per day: 0.5 Smoking cigarettes per day: 10.0 Years smoked: 40 Smoking pack-years: 20.00 Smoking status: Former smoker Tobacco type: cigarettes Second hand tobacco smoke exposure: No Smoking end date: 11/13/14 Additional smoking assessment comments: quit 2013 Alcohol intake: never Substance use: never Substance use type: does not use Do You Feel Safe in your Home?: Yes Lack of Transportation: No Lack of Food: Never True Current Housing: I Have Housing Concerned About Future Housing: No Difficulty Paying Gas/Electric Bills: No Difficulty Paying for Meds: No Currently Unemployed: No Education: High School Diploma/GED Difficulty w/ Childcare or Family Care: No Living arrangements: with family Additional living arrangements comments: Son Occupation/Education: retired Gender identity (if verbalized by the patient): Female Spiritual care concerns: No Meds Home Medications and Allergies Home Medications ?Medication ?Instructions ?Recorded ?Confirmed ?Type clopidogrel 75 mg tablet (Plavix) 75 mg PO QAM 12/02/19 02/18/25 History nitroglycerin 0.4 mg sublingual 0.4 mg sublingual Q5M PRN Chest 12/02/19 02/11/25 History tablet Pain oxybutynin chloride 15 mg 15 mg PO DAILY 12/02/19 02/11/25 History tablet,extended release 24 hr ranolazine 500 mg tablet,extended 500 mg PO BID 03/24/21 02/11/25 History release,12 hr rosuvastatin 40 mg tablet 40 mg PO DAILY 05/09/23 02/11/25 History zoledronic acid 5 mg/100 mL in 1 ea IV DIRECTED 12/11/23 02/11/25 History mannitol 5 %-water intravenous piggybck methenamine hippurate 1 gram tablet 1 g PO BID 02/06/24 02/11/25 History felodipine 10 mg tablet,extended 10 mg PO QAM #90 tabs 04/16/24 02/11/25 Rx release 24 hr Stiolto Respimat 2.5 mcg-2.5 See Rx Instructions .Route 05/01/24 02/11/25 Rx mcg/actuation solution for .COMPLEX #12 grams inhalation (tiotropium-olodaterol) folic acid 1 mg tablet 1 mg PO DAILY #90 tabs 05/22/24 02/11/25 Rx levothyroxine 88 mcg tablet 88 mcg PO QAM #90 tabs 05/22/24 02/11/25 Rx albuterol sulfate 90 mcg/actuation 1 - 2 inh inhalation Q4-6H PRN 06/07/24 02/11/25 Rx aerosol inhaler shortness of breath or wheezing #8.5 grams isosorbide mononitrate 30 mg 30 mg PO DAILY 11/25/24 02/11/25 History tablet,extended release 24 hr carvedilol 25 mg tablet 25 mg PO Q12H #180 tabs 12/19/24 02/11/25 Rx lansoprazole 15 mg capsule,delayed 15 mg PO DAILY PRN acid reflux 01/10/25 02/11/25 History release apixaban 5 mg tablet (Eliquis) 5 mg PO Q12HR #60 tabs 01/28/25 02/18/25 Rx ipratropium 0.5 mg-albuterol 3 mg 3 ml inhalation Q6HRT #90 vials 01/28/25 02/11/25 Rx (2.5 mg base)/3 mL nebulization soln pantoprazole 40 mg tablet,delayed 40 mg PO QAM #30 tabs 01/28/25 02/11/25 Rx release sennosides 8.6 mg tablet (Senokot) 8.6 mg PO DAILY PRN Constipation 01/28/25 02/12/25 Rx #30 tabs acetaminophen 500 mg tablet 500 mg PO Q6H PRN fever or pain 02/11/25 02/11/25 History calcium carbonate (Antacid 200 mg PO QID PRN dyspepsia 02/11/25 02/11/25 History (calcium carbonate)) guaifenesin 600 mg tablet, 1,200 mg PO Q12HR PRN congestion 02/11/25 02/11/25 History extended release 12 hr (Mucus Relief ER) ondansetron 4 mg disintegrating 4 mg translingual Q8H PRN nausea 02/11/25 02/11/25 History tablet and vomiting polyethylene glycol 3350 17 gram 17 g PO QAM PRN constipation 02/12/25 02/12/25 History oral powder packet (Miralax) Allergies Allergy/AdvReac Type Severity Reaction Status Date / Time No Known Allergies Allergy Verified 02/18/25 13:26 Vital Signs Vital Signs - 24 hr 02/23/25 19:59 02/23/25 20:00 02/23/25 20:02 Temperature Pulse Rate 81 Respiratory Rate 16 Blood Pressure Pulse Oximetry 95 Oxygen Delivery Room Air Room Air Fraction of Inspired Oxygen 02/23/25 20:09 02/23/25 21:19 02/23/25 22:00 Temperature 37.0 C Pulse Rate 81 86 75 Respiratory Rate 16 18 Blood Pressure 134/62 Pulse Oximetry 94 Oxygen Delivery Fraction of Inspired Oxygen 02/24/25 02:14 02/24/25 02:25 02/24/25 05:24 Temperature 36.8 C Pulse Rate 81 81 87 Respiratory Rate 16 16 20 Blood Pressure 143/65 H Pulse Oximetry 92 Oxygen Delivery Fraction of Inspired Oxygen 02/24/25 07:34 02/24/25 07:34 02/24/25 07:45 Temperature Pulse Rate 81 80 Respiratory Rate 16 16 Blood Pressure Pulse Oximetry 91 Oxygen Delivery Room Air Fraction of Inspired Oxygen 21 02/24/25 08:24 02/24/25 08:25 02/24/25 08:25 Temperature 36.7 C Pulse Rate 81 81 Respiratory Rate 14 Blood Pressure 151/69 H Pulse Oximetry 94 94 Oxygen Delivery Room Air Fraction of Inspired Oxygen 02/24/25 13:19 02/24/25 13:19 02/24/25 13:34 Temperature Pulse Rate 77 78 Respiratory Rate 18 20 Blood Pressure Pulse Oximetry 91 Oxygen Delivery Room Air Fraction of Inspired Oxygen 21 02/24/25 14:00 Temperature 36.6 C Pulse Rate 77 Respiratory Rate 12 Blood Pressure 103/45 L Pulse Oximetry 91 Oxygen Delivery Fraction of Inspired Oxygen Exam Narrative: Lungs are clear to auscultation bilaterally Cardiovascular regular rate rhythm no murmurs Abdomen soft nontender nondistended bowel sounds are positive Extremities no edema Results Labs 02/24/25 04:43 02/24/25 04:43 Labs: Short CBC 02/24/25 Range/Units 04:43 WBC 12.1 H (4.5-10.0) K/mm3 Hgb 8.8 L (12.0-15.0) g/dL Hct 27.7 L (37.0-47.0) % Plt Count 193 (150-375) k/mm3 [facility] 02/24/25 04:43 Sodium 135 L Potassium 3.7 Chloride 107 Carbon Dioxide 20 L BUN 25 H Creatinine 1.98 H Glucose 77 Calcium 8.3 L Liver Function 02/24/25 Range/Units 04:43 Total Bilirubin 0.4 (0.2-1.3) mg/dL AST 19 (14-36) U/L ALT 12 (6-35) U/L Alkaline Phosphatase 99 (38-126) U/L Albumin 2.3 L (3.5-5.1) g/dL
[2025-02-24] MEDS: EPOETIN ALFA-EPBX 20,000 UNITS/ML VIAL 20000 UNITS SUB-Q (18:55)
[2025-02-24] MEDS: polyethylene glycoL 3350 238 GM BOTTLE 119 GM PO (23:12)
[2025-02-25] VITALS (11 sets, daily range): BP systolic 106–152; BP diastolic 53–74; PULSE 81–90; RESP 16–20; TEMP 36.6–36.9; O2SAT 90–93
[2025-02-25] MEDS: IPRATROPIUM 0.5 MG/ALBUTEROL SULFATE 2.5 MG AMPUL.NEB 3 ML INHALATION ×3 (01:53→13:31)
--- NOTE | 2025-02-25 03:24 | PC.NURSE ---
Patient is refusing to continue drinking bowel prep after initial 250cc of intake; RN encouraged patient to continue drinking in increments, patient continues to refuse. Patient states I ain't doin two days of this shit . RN discussed benefits v. risks of bowel prep and procedure, as well as alternative administration possibility via NGT. Patient stated that she would consider the option of NGT for administration, but requested additional time to consider it. Procedure was discussed with the patient and questions answered to patient satisfaction. RN will continue to follow and encourage oral intake of bowel prep as tolerated.
[2025-02-25 05:19] LABS: Hematocrit 27.4 % (37.0-47.0); Hemoglobin 8.6 g/dL (12.0-15.0); Mean Corpuscular HGB Conc 31.4 g/dl (32-36); Mean Corpuscular Hemoglobin 30.3 pg (26-34); Mean Corpuscular Volume 96.5 fl (80-100); Mean Platelet Volume 10.7 fl (7.4-10.4); Platelet Count Result 175 k/mm3 (150-375); Red Blood Count 2.84 M/mm3 (4.2-5.4); Red Cell Distribution Width 17.2 % (11.5-14.5); White Blood Count 10.6 K/mm3 (4.5-10.0)
[2025-02-25 05:38] LABS: Alanine Aminotransferase 12 U/L (6-35); Albumin Level 2.5 g/dL (3.5-5.1); Alkaline Phosphatase 101 U/L (38-126); Anion Gap 7 mmol/L (4-12); Aspartate Amino Transferase 18 U/L (14-36); Bilirubin,Total 0.4 mg/dL (0.2-1.3); Blood Urea Nitrogen 25 mg/dL (7-17); Calcium 8.7 mg/dL (8.4-10.2); Carbon Dioxide 21 mmol/L (22-30); Chloride 107 mmol/L (98-107); Estimated CRCL calculation 24 ml/min; Estimated Glomerular Filt Rate 23; Glucose 92 mg/dL (65-110); Potassium 3.6 mmol/L (3.4-5.0); Sodium 135 mmol/L (137-145)
[2025-02-25] MEDS: SALINE LOCK FLUSH 10 ML IV PUSH ×2 (05:48→15:05)
[2025-02-25] MEDS: LEVOTHYROXINE SODIUM 88 MCG TABLET PO (05:48)
[2025-02-25] MEDS: UMECLIDINIUM/VILANTEROL 62.5-25 MCG ELLIPTA 1 PUFF INHALATION (08:23)
[2025-02-25] MEDS: APIXABAN 5 MG TABLET PO (08:30)
[2025-02-25] MEDS: CALCIUM CARBONATE (OSCAL) 500 MG TABLET PO ×2 (08:30→11:18)
[2025-02-25] MEDS: FELODIPINE 5 MG TAB CR 10 MG PO (08:31)
[2025-02-25] MEDS: carvediloL 25 MG TABLET PO (08:31)
[2025-02-25] MEDS: CLOPIDOGREL BISULFATE 75 MG TABLET PO (08:31)
[2025-02-25] MEDS: RANOLAZINE 500 MG TAB.ER.12H PO (08:32)
[2025-02-25] MEDS: ROSUVASTATIN 20 MG TABLET 40 MG PO (08:32)
[2025-02-25] MEDS: oxyBUTYnin CHLORIDE XL 5 MG TAB.ER.24 15 MG PO (08:32)
[2025-02-25] MEDS: ISOSORBIDE MONONITRATE 30 MG TAB.ER.24H PO (08:32)
[2025-02-25] MEDS: FERROUS SULFATE 325 MG TABLET DR PO (08:32)
--- NOTE | 2025-02-25 11:30 | P.PNNP_ITS ---
Progress Note: A&P Assessment and Plan (1) Acute kidney injury: Code(s): N17.9 - Acute kidney failure, unspecified Status: Acute Assessment and Plan: * improving * as evidenced by admission labs * multifactorial etiology: * prerenal factors (diarrhea) * urinary retention * early sepsis/infection (UTI + pneumonia) * evaluation to date noted: * renal u/s with mild right hydronephrosis * urology following. they see as an outpatient * bladder scan with evidence of urinary retention * urine electrolytes non prerenal * urine eosinophils negative * CPK normal * UA suggestive of infection * proteinuria noted * continue to follow trend of repeat labs and UOP (2) Chronic kidney disease, stage 3: Qualifiers: Chronic kidney disease stage 3 subtype: stage 3a (GFR 45-59) Qualified Code(s): N18.31 - Chronic kidney disease, stage 3a Code(s): N18.30 - Chronic kidney disease, stage 3 unspecified Status: Chronic Assessment and Plan: * baseline creatinine runs around 1.4 - 1.9mg/dl in the last few years * however, has been as low as 0.9 - 1.1mg/dl * secondary to solitary kidney (and associated loss of nephron mass), hypertension, and age-related change * possible new baseline creatinine (~ 1.9 - 2.1mg/dl)... (3) Anemia: Code(s): D64.9 - Anemia, unspecified Status: Acute Assessment and Plan: * noted drop in H/H by AM labs (on 02/13 and 02/22) * PRBC transfusion per protocol * anemia studies with iron deficiency * complicated by recent start of Eliquis for PE (was on hold but resumed) * GI following: * EGD -- mild diffuse gastritis without any findings * colonoscopy - deferred due to inadequate prep * empiric Epogen dosing x 1 * Hematology recommendations noted * follow trend of H/H (4) Urinary tract infection: Code(s): N39.0 - Urinary tract infection, site not specified Status: Acute Assessment and Plan: * admission UA highly suggestive * on antibiotic therapy * urine culture with E.coli and VRE (5) Pneumonia: Code(s): J18.9 - Pneumonia, unspecified organism Status: Acute Assessment and Plan: * as suggested by admission imaging * blood culture negative to date * on antibiotics (6) Bilateral lower extremity edema: Code(s): R60.0 - Localized edema Status: Acute Assessment and Plan: * noted on admission * related to JOSR/ARF(?) * possible venous insufficiency/circulation issues (has known PAD) * venous dopplers negative for DVT * related to proteinuria(?) * follow clinical exam (7) Acute urinary retention: Code(s): R33.8 - Other retention of urine Status: Acute Assessment and Plan: * as noted by renal ultrasound and bladders scan * Urology recommendations noted * calles out * bladders can qshift and PRN * straight catheterization if bladder scan > 500cc (8) Essential hypertension: Code(s): I10 - Essential (primary) hypertension Status: Chronic Assessment and Plan: * reasonable control * follow trend of hemodynamics Will continue to follow. L Subjective Date/time seen: 02/25/25 11:30 Interval history: Follow-up for acute kidney injury/acute renal failure on chronic kidney disease. Renal function/creatinine remains relatively stable; straight catheterizations as needed based on bladders scans; H/H relatively stable with Hematology recommendations noted; no apparent distress noted. Exam 2 Narrative: General: elderly (appears older than stated age) WD/WN female in NAD Heart: normal S1 and S2; no rub Lungs: clear to auscultation Abdomen: soft, nontender, nondistended, positive bowel sounds Extremities: no cyanosis or clubbing; 1+ edema Skin: no rash Objective Data Vital Signs Vital Signs: Vital Signs Temp Pulse Resp BP Pulse Ox O2 Del Method FiO2 02/25/25 11:18 93 Room Air 02/25/25 08:31 86 02/25/25 08:29 86 135/64 93 02/25/25 08:23 88 20 02/25/25 08:17 86 20 02/25/25 08:17 92 Room Air 21 02/25/25 06:00 98.4 F 85 16 152/74 H 92 02/25/25 02:05 90 16 02/25/25 01:53 90 16 02/24/25 21:37 98.3 F 92 16 146/57 H 93 02/24/25 21:15 83 02/24/25 20:00 Room Air 02/24/25 20:00 93 16 02/24/25 19:51 93 16 02/24/25 14:00 97.8 F 77 12 103/45 L 91 02/24/25 13:34 78 20 02/24/25 13:19 77 18 02/24/25 13:19 91 Room Air 21 Intake/Output Intake/Output: Intake & Output 02/22/25 02/23/25 02/24/25 02/25/25 23:59 23:59 23:59 23:59 Intake Total 1270 1664 1400 430 Output Total 750 600 525 525 Balance 520 1064 875 -95 Meds/Results Medications: Active Medications Generic Name Dose Route Start Last Admin Trade Name Freq PRN Reason Stop Dose Admin Acetaminophen 650 mg 02/11/25 20:54 02/15/25 12:09 Acetaminophen 325 Mg Tablet PO 650 mg Q4H PRN Administration Mild Pain (1-3) or Fever Albuterol/Ipratropium 3 ml 02/12/25 08:00 02/25/25 08:17 Ipratropium 0.5 Mg/Albuterol Sulfate 2.5 Mg Ampul.Neb 3 Ml INHALATION 3 ml Q6HRT ENEDELIA Administration Apixaban 5 mg 02/12/25 09:00 02/25/25 08:30 Apixaban 5 Mg Tablet PO 5 mg Q12HR ENEDELIA Administration Calcium Carbonate 200 mg 02/12/25 02:37 Calcium Carbonate (Tums) 500 Mg (200 Mg Elemental) PO QID PRN dyspepsia Calcium Carbonate 500 mg 02/14/25 12:00 02/25/25 11:18 Calcium Carbonate (Oscal) 500 Mg Tablet PO 500 mg TIDWM ENEDELIA Administration Carvedilol 25 mg 02/12/25 09:00 02/25/25 08:31 Carvedilol 25 Mg Tablet PO 25 mg Q12HR ENEDELIA Administration Clopidogrel Bisulfate 75 mg 02/12/25 09:00 02/25/25 08:31 Clopidogrel Bisulfate 75 Mg Tablet PO 75 mg QAM ENEDELIA Administration Felodipine 10 mg 02/12/25 09:00 02/25/25 08:31 Felodipine 5 Mg Tab Cr PO 10 mg QAM ENEDELIA Administration Ferrous Sulfate 325 mg 02/25/25 09:00 02/25/25 08:32 Ferrous Sulfate [address] PO 325 mg BID ENEDELIA Administration Isosorbide Mononitrate 30 mg 02/12/25 09:00 02/25/25 08:32 Isosorbide Mononitrate 30 Mg Tab.Er.24h PO 30 mg DAILY ENEDELIA Administration Levothyroxine Sodium 88 mcg 02/12/25 06:30 02/25/25 05:48 Levothyroxine Sodium 88 Mcg Tablet PO 88 mcg DAILY@0630 ENEDELIA Administration Miscellaneous Information 1 each 02/20/25 00:01 [place] Needs To Be Renewed Or It Will Automatically Discontinue. XX 03/22/25 00:00 CLARIFY ENEDELIA Nitroglycerin 0.4 mg 02/12/25 02:37 Nitroglycerin Sl 0.4 Mg Tablet SUBLINGUAL Q5M PRN Chest Pain Ondansetron HCl 4 mg 02/11/25 20:54 02/22/25 17:32 Ondansetron Inj 4 Mg/2 Ml Vial IV PUSH 4 mg Q4H PRN Administration Nausea Oxybutynin Chloride 15 mg 02/12/25 09:00 02/25/25 08:32 Oxybutynin Chloride Xl 5 Mg Tab.Er.24 PO 15 mg DAILY ENEDELIA Administration Pantoprazole Sodium 40 mg 02/12/25 02:55 02/22/25 08:31 Pantoprazole 40 Mg Tablet PO 40 mg DAILY PRN Administration acid reflux Polyethylene Glycol 119 gm 02/25/25 22:00 Polyethylene Glycol 3350 238 Gm Bottle PO 02/25/25 22:01 ONCE ONE Polyethylene Glycol 119 gm 02/26/25 05:00 Polyethylene Glycol 3350 238 Gm Bottle PO 02/26/25 05:01 ONCE ONE Promethazine HCl 12.5 mg 02/14/25 10:29 02/16/25 20:52 Promethazine Hcl 25 Mg/Ml Ampul IV PUSH 12.5 mg Q6H PRN Administration Nausea And Vomiting Ranolazine 500 mg 02/12/25 09:00 02/25/25 08:32 Ranolazine 500 Mg Tab.Er.12h PO 500 mg Q12HR ENEDELIA Administration Rosuvastatin Calcium 40 mg 02/12/25 09:00 02/25/25 08:32 Rosuvastatin 20 Mg Tablet PO 40 mg DAILY ENEDELIA Administration Sodium Chloride 10 ml 02/17/25 14:00 02/25/25 05:48 Saline Lock Flush IV PUSH 10 ml Q8HR ENEDELIA Administration Sodium Chloride 10 ml 02/17/25 11:13 Saline Lock Flush IV PUSH PRN PRN Flush Sodium Chloride 20 ml 02/17/25 11:13 Saline Lock Flush IV PUSH PRN PRN after blood draws Umeclidinium/Vilanterol 1 puff 02/12/25 08:00 02/25/25 08:23 Umeclidinium/Vilanterol 62.5-25 Mcg Ellipta INHALATION 1 puff DAILYRT ENEDELIA Administration Radiology Results: ITS Impressions Abdomen/Pelvis CT 02/11/25 19:34 IMPRESSION: Left basilar consolidation, an interval change from prior. Findings within the colon suggesting a diarrheal illness, for which clinical correlation is needed. Chest X-Ray 02/11/25 19:58 IMPRESSION: No focal infiltrate or effusion. Venous Doppler Study 02/12/25 11:17 IMPRESSION: 1: No lower extremity deep venous thrombosis. Renal Ultrasound 02/12/25 11:18 Impression: 1: Mild right hydronephrosis. Labs Labs: Laboratory Tests 02/25/25 04:58 02/25/25 04:58 Calcium 8.7 Total Bilirubin 0.4 AST 18 ALT 12 Alkaline Phosphatase 101 Total Protein 6.0 L Albumin 2.5 L Microbiology 02/24/25 11:51 Stool Escherichia coli Shiga Toxins - Final 02/24/25 11:51 Stool Campylobacter Antigen Assay - Final
--- NOTE | 2025-02-25 12:21 | PCOTNOTE ---
Attempted to see Patient at this time. Patient refuses any OT therapy services at this time. Patient states she is refusing testing and just wants to go home .
--- NOTE | 2025-02-25 13:21 | WPDGIPROGNO ---
Progress Note: A&P Assessment and Plan (1) Iron deficiency anemia: Code(s): D50.9 - Iron deficiency anemia, unspecified Status: Acute Plan I spoke with the patient this morning, and she reported being unable to tolerate the first dose of MiraLax last night. She is unwilling to attempt any of the remaining three doses. Consequently, adequate bowel preparation for colonoscopy is not feasible without her cooperation. The patient also refused the option of administering the MiraLax via nasogastric tube. Therefore, I will defer further action until the patient is willing and able to tolerate the bowel preparation required for this procedure. She reports a history of multiple prior colonoscopies with no significant findings. Therefore, the most likely cause of her iron deficiency is her underlying chronic kidney disease and she should continue follow-up with Hematology as suggested. Subjective Date/time seen: 02/25/25 13:21 Objective Data Vital Signs Vital Signs: Vital Signs - 24 hr 02/24/25 13:34 02/24/25 14:00 02/24/25 19:51 Temperature 97.8 F Pulse Rate 78 77 93 Respiratory Rate 20 12 16 Blood Pressure 103/45 L Pulse Oximetry 91 Oxygen Delivery Fraction of Inspired Oxygen 02/24/25 20:00 02/24/25 20:00 02/24/25 21:15 Temperature Pulse Rate 93 83 Respiratory Rate 16 Blood Pressure Pulse Oximetry Oxygen Delivery Room Air Fraction of Inspired Oxygen 02/24/25 21:37 02/25/25 01:53 02/25/25 02:05 Temperature 98.3 F Pulse Rate 92 90 90 Respiratory Rate 16 16 16 Blood Pressure 146/57 H Pulse Oximetry 93 Oxygen Delivery Fraction of Inspired Oxygen 02/25/25 06:00 02/25/25 08:17 02/25/25 08:17 Temperature 98.4 F Pulse Rate 85 86 Respiratory Rate 16 20 Blood Pressure 152/74 H Pulse Oximetry 92 92 Oxygen Delivery Room Air Fraction of Inspired Oxygen 21 02/25/25 08:23 02/25/25 08:29 02/25/25 08:31 Temperature Pulse Rate 88 86 86 Respiratory Rate 20 Blood Pressure 135/64 Pulse Oximetry 93 Oxygen Delivery Fraction of Inspired Oxygen 02/25/25 11:18 Temperature Pulse Rate Respiratory Rate Blood Pressure Pulse Oximetry 93 Oxygen Delivery Room Air Fraction of Inspired Oxygen Intake/Output Intake/Output: Intake & Output 04/12/25 02/23/25 02/24/25 02/25/25 23:59 23:59 23:59 23:59 Intake Total 1270 1664 1400 880 Output Total 750 600 525 525 Balance 520 1064 875 355 Meds/Results Medications: Active Medications Generic Name Dose Route Start Last Admin Trade Name Freq PRN Reason Stop Dose Admin Acetaminophen 650 mg 02/11/25 20:54 02/15/25 12:09 Acetaminophen 325 Mg Tablet PO 650 mg Q4H PRN Administration Mild Pain (1-3) or Fever Albuterol/Ipratropium 3 ml 02/12/25 08:00 02/25/25 08:17 Ipratropium 0.5 Mg/Albuterol Sulfate 2.5 Mg Ampul.Neb 3 Ml INHALATION 3 ml Q6HRT ENEDELIA Administration Apixaban 5 mg 02/12/25 09:00 02/25/25 08:30 Apixaban 5 Mg Tablet PO 5 mg Q12HR ENEDELIA Administration Calcium Carbonate 200 mg 02/12/25 02:37 Calcium Carbonate (Tums) 500 Mg (200 Mg Elemental) PO QID PRN dyspepsia Calcium Carbonate 500 mg 02/14/25 12:00 02/25/25 11:18 Calcium Carbonate (Oscal) 500 Mg Tablet PO 500 mg TIDWM ENEDELIA Administration Carvedilol 25 mg 02/12/25 09:00 02/25/25 08:31 Carvedilol 25 Mg Tablet PO 25 mg Q12HR ENEDELIA Administration Clopidogrel Bisulfate 75 mg 02/12/25 09:00 02/25/25 08:31 Clopidogrel Bisulfate 75 Mg Tablet PO 75 mg QAM COUNT INCLUDES THE [facility] Administration Felodipine 10 mg 02/12/25 09:00 02/25/25 08:31 Felodipine 5 Mg Tab Cr PO 10 mg QAM COUNT INCLUDES THE [facility] Administration Ferrous Sulfate 325 mg 02/25/25 09:00 02/25/25 08:32 Ferrous Sulfate [address] PO 325 mg BID COUNT INCLUDES THE [facility] Administration Isosorbide Mononitrate 30 mg 02/12/25 09:00 02/25/25 08:32 Isosorbide Mononitrate 30 Mg Tab.Er.24h PO 30 mg DAILY ENEDELIA Administration Levothyroxine Sodium 88 mcg 02/12/25 06:30 02/25/25 05:48 Levothyroxine Sodium 88 Mcg Tablet PO 88 mcg DAILY@0630 COUNT INCLUDES THE [facility] Administration Miscellaneous Information 1 each 02/20/25 00:01 [place] Needs To Be Renewed Or It Will Automatically Discontinue. XX 03/22/25 00:00 CLARIFY ENEDELIA Nitroglycerin 0.4 mg 02/12/25 02:37 Nitroglycerin Sl 0.4 Mg Tablet SUBLINGUAL Q5M PRN Chest Pain Ondansetron HCl 4 mg 02/11/25 20:54 02/22/25 17:32 Ondansetron Inj 4 Mg/2 Ml Vial IV PUSH 4 mg Q4H PRN Administration Nausea Oxybutynin Chloride 15 mg 02/12/25 09:00 02/25/25 08:32 Oxybutynin Chloride Xl 5 Mg Tab.Er.24 PO 15 mg DAILY ENEDELIA Administration Pantoprazole Sodium 40 mg 02/12/25 02:55 02/22/25 08:31 Pantoprazole 40 Mg Tablet PO 40 mg DAILY PRN Administration acid reflux Polyethylene Glycol 119 gm 02/25/25 22:00 Polyethylene Glycol 3350 238 Gm Bottle PO 02/25/25 22:01 ONCE ONE Polyethylene Glycol 119 gm 02/26/25 05:00 Polyethylene Glycol 3350 238 Gm Bottle PO 02/26/25 05:01 ONCE ONE Promethazine HCl 12.5 mg 02/14/25 10:29 02/16/25 20:52 Promethazine Hcl 25 Mg/Ml Ampul IV PUSH 12.5 mg Q6H PRN Administration Nausea And Vomiting Ranolazine 500 mg 02/12/25 09:00 02/25/25 08:32 Ranolazine 500 Mg Tab.Er.12h PO 500 mg Q12HR ENEDELIA Administration Rosuvastatin Calcium 40 mg 02/12/25 09:00 02/25/25 08:32 Rosuvastatin 20 Mg Tablet PO 40 mg DAILY ENEDELIA Administration Sodium Chloride 10 ml 02/17/25 14:00 02/25/25 05:48 Saline Lock Flush IV PUSH 10 ml Q8HR ENEDELIA Administration Sodium Chloride 10 ml 02/17/25 11:13 Saline Lock Flush IV PUSH PRN PRN Flush Sodium Chloride 20 ml 02/17/25 11:13 Saline Lock Flush IV PUSH PRN PRN after blood draws Umeclidinium/Vilanterol 1 puff 02/12/25 08:00 02/25/25 08:23 Umeclidinium/Vilanterol 62.5-25 Mcg Ellipta INHALATION 1 puff DAILYRT ENEDELIA Administration Radiology Results: ITS Impressions Abdomen/Pelvis CT 02/11/25 19:34 IMPRESSION: Left basilar consolidation, an interval change from prior. Findings within the colon suggesting a diarrheal illness, for which clinical correlation is needed. Chest X-Ray 02/11/25 19:58 IMPRESSION: No focal infiltrate or effusion. Venous Doppler Study 02/12/25 11:17 IMPRESSION: 1: No lower extremity deep venous thrombosis. Renal Ultrasound 02/12/25 11:18 Impression: 1: Mild right hydronephrosis. Labs Labs: Laboratory Results - last 24 hr 02/25/25 04:58 WBC 10.6 H RBC 2.84 L Hgb 8.6 L Hct 27.4 L MCV 96.5 MCH 30.3 MCHC 31.4 L RDW 17.2 H Plt Count 175 MPV 10.7 H Sodium 135 L Potassium 3.6 Chloride 107 Carbon Dioxide 21 L Anion Gap 7 BUN 25 H Creatinine 2.14 H Estim Creat Clear Calc 24 Estimated GFR 23 L Glucose 92 Calcium 8.7 Total Bilirubin 0.4 AST 18 ALT 12 Alkaline Phosphatase 101 Total Protein 6.0 L Albumin 2.5 L
--- NOTE | 2025-02-25 15:09 | PM.DS ---
DS: Admitting Diagnosis Discharge Date 02/25/25 Admitting Diagnosis Diarrhea, weakness DS: Discharge Diagnosis Discharge Diagnosis (1) Acute kidney injury: Code(s): N17.9 - Acute kidney failure, unspecified Status: Acute (2) Iron deficiency anemia: Code(s): D50.9 - Iron deficiency anemia, unspecified Status: Acute (3) Heme positive stool: Code(s): R19.5 - Other fecal abnormalities Status: Acute (4) Sepsis: Qualifiers: Acute renal failure type: unspecified Sepsis acute organ dysfunction status: with acute organ dysfunction Sepsis type: sepsis due to unspecified organism Severe sepsis acute organ dysfunction type: acute renal failure Severe sepsis shock status: without septic shock Qualified Code(s): A41.9 - Sepsis, unspecified organism; R65.20 - Severe sepsis without septic shock; N17.9 - Acute kidney failure, unspecified Code(s): A41.9 - Sepsis, unspecified organism Status: Acute (5) Pneumonia: Code(s): J18.9 - Pneumonia, unspecified organism Status: Acute DS: Summary Hospital Course Hospital Course: 69-year-old female with a past medical history paroxysmal atrial fibrillation, coronary artery disease with history of coronary artery stent, DVT and PE 2014, essential hypertension, peripheral artery disease with stent the left lower extremity, obstructive sleep apnea not treated with CPAP, GERD, prior appendectomy, cholecystectomy and prior hernia repair with ongoing umbilical hernia with recent prolonged hospitalization who presented back to the ER today due to and diarrhea and acutely worsening lower extremity swelling. Patient was managed for pneumonia with sepsis and completed Meropenem, Doxycycline and Linezolid. Also had diarrhea for which she was taken Imodium prior to admission. diarrhea resolved hwoeve . She was also managed for anemia with heme positive stool, GI was consulted and EGD showed Gastritis for whcih patient was discharged on Lansp. Patient received 2 unit of blood transfusion for significant hemoglobin drops. GI planned to do Colonsocopy however patient declined bowel prep. Today she strongly declined bowel prep and since hemoglobin has been stable and i discussed discharge with her and was discharged home with home health. Oncology was consulted for possible and patient was given Procrit and continue on PO Iron replacement, she also received 700mg of IV iron. Hematology will continue outpatinet follow up. ALso managed for JOSR from dehydration secondary to dairrhea. Patient was rehydrated and Nephrology was consulted and Creatinine decreased from 6.19 to 2.14. Since PE was diagnosed in January, i was not able to stop her eliquis completely, patient will continue Eliquis. I discussed with the son, Camron to contact her community worker about discontinuing Plavix or changing to Aspirin. ALso managed for ESBL adn VRE UTi adn completed antibiotics. F/u with PCP in 3-5 days, F/u with cardiology, nephrology and Hematology as instructed. Time Spent with Patient Time attestation: Total time spent providing and/or coordinating discharge services: DS: Data Data Completed and Pending Labs on day of discharge: Labs from last 24 hours 02/25/25 04:58 WBC 10.6 H RBC 2.84 L Hgb 8.6 L Hct 27.4 L MCV 96.5 MCH 30.3 MCHC 31.4 L RDW 17.2 H Plt Count 175 MPV 10.7 H Sodium 135 L Potassium 3.6 Chloride 107 Carbon Dioxide 21 L Anion Gap 7 BUN 25 H Creatinine 2.14 H Estim Creat Clear Calc 24 Estimated GFR 23 L Glucose 92 Calcium 8.7 Total Bilirubin 0.4 AST 18 ALT 12 Alkaline Phosphatase 101 Total Protein 6.0 L Albumin 2.5 L Discharge Plan Discharge Attending physician on discharge: [place] Consulting providers: Dominick Quintero; Lazaro Juarez; Brodie Lao Discharging Clinician: [place] Patient Disposition: Home with Home Health Service Discharge Instructions: Per Care Coordination. Patient to have [facility] for RN/PT/OT eval and treat P: [phone]. RN please fax discharge instructions to F: [phone] Patient Instructions: Antibiotic Form, Apixaban (By mouth), Heart Failure (GEN), Removal of a Central Line, PICC, or Midline Catheter (GEN) Patient Language: Chinese Stand Alone Forms: General Discharge Information Follow-up/Referrals: Brodie Lao MD [Physician] - (F/u with oncology as instructed ) Lazaro Juarez MD [Physician] - (F/u with urology as instructed ) Dominick Quintero MD [Physician] - (F/u with Nephrology as instructed ) Ricardo Freeman, [Primary Care Provider] - (F/u with PCP in 3-5 days ) Discharge Medications: New ferrous sulfate 325 mg (65 mg iron) Tablet,Delayed Release (Dr/Ec) 325 mg PO BID 30 Days Qty: 60 0RF Continued nitroglycerin 0.4 mg tablet, sublingual 0.4 mg SUBLINGUAL Q5M PRN (Reason: Chest Pain) Rx Instructions: until response; do not exceed 3 doses per episode oxybutynin chloride 15 mg tablet extended release 24hr 15 mg PO DAILY clopidogrel [Plavix] 75 mg tablet 75 mg PO QAM Stiolto Respimat 2.5-2.5 mcg/actuation mist See Rx Instructions .ROUTE .COMPLEX Qty: 12 3RF Dose Instruction: INHALE 2 PUFFS BY MOUTH IN THE MORNING Rx Instructions: INHALE 2 PUFFS BY MOUTH IN THE MORNING zoledronic [id number] 5 mg/100 mL piggyback 1 ea IV DIRECTED Rx Instructions: YEARLY, TAOOK IN OCTOBER rosuvastatin 40 mg tablet 40 mg PO DAILY sennosides [Senokot] 8.6 mg Tablet 8.6 mg PO DAILY PRN (Reason: Constipation) Qty: 30 0RF ipratropium-albuterol 0.5 mg-3 mg(2.5 mg base)/3 mL Solution For Nebulization 3 ml inhalation Q6HRT Qty: 90 0RF Eliquis 5 mg Tablet 5 mg PO Q12HR Qty: 60 0RF ranolazine 500 mg tablet extended release 12 hr 500 mg PO BID methenamine hippurate 1 gram tablet 1 g PO BID isosorbide mononitrate 30 mg tablet extended release 24 hr 30 mg PO DAILY acetaminophen 500 mg tablet 500 mg PO Q6H PRN (Reason: fever or pain) ondansetron 4 mg tablet,disintegrating 4 mg translingual Q8H PRN (Reason: nausea and vomiting) calcium carbonate [Antacid (calcium carbonate)] 200 mg calcium (500 mg) tablet,chewable 200 mg PO QID PRN (Reason: dyspepsia) guaifenesin [Mucus Relief ER] 600 mg Tablet Extended Release 12hr 1,200 mg PO Q12HR PRN (Reason: congestion) polyethylene glycol 3350 [Miralax] 17 gram Powder In Packet 17 g PO QAM PRN (Reason: constipation) felodipine 10 mg tablet extended release 24 hr 10 mg PO QAM Qty: 90 3RF folic acid 1 mg tablet 1 mg PO DAILY Qty: 90 3RF levothyroxine 88 mcg tablet 88 mcg PO QAM Qty: 90 3RF albuterol sulfate 90 mcg/actuation HFA aerosol inhaler 1 - 2 inh inhalation Q4-6H PRN (Reason: shortness of breath or wheezing) Qty: 8.5 3RF carvedilol 25 mg tablet 25 mg PO Q12H Qty: 180 2RF Rx Instructions: must administer with a meal/food Changed pantoprazole 40 mg Tablet,Delayed Release (Dr/Ec) 40 mg PO BID 30 Days Qty: 60 1RF Date of admission: 02/12/25 07:50 Primary Care Provider: Ricardo Freeman Admitting Provider: Bev Guzman Attending physician on admission: [place] Condition: Serious
== END 2025-02-25 17:40 | disposition home health service (06) | DRG 871 ==
LOC: ANHED 17:53 → ANHIMU 21:19 → ANH2MED 02-17 12:58
PROVIDERS: General Practice; Internal Medicine Gastroenterology; Internal Medicine Nephrology; Admitting Provider Internal Medicine; Emergency Provider Emergency Medicine; PCP Internal Medicine; Visit Provider Internal Medicine
PROC: 0DJ08ZZ Inspection of Upper Intestinal Tract, Via Natural or Artificial Opening Endoscopic (ICD-10-PCS; principal; 2025-02-18 14:00)
DX: A41.9 Sepsis, unspecified organism (principal); J18.9 Pneumonia, unspecified organism; J96.01 Acute respiratory failure with hypoxia; N17.9 Acute kidney failure, unspecified; N39.0 Urinary tract infection, site not specified; Z16.21 Resistance to vancomycin; N13.30 Unspecified hydronephrosis; R65.20 Severe sepsis without septic shock; K52.9 Noninfective gastroenteritis and colitis, unspecified; B96.20 Unspecified Escherichia coli [E. coli] as the cause of diseases classified elsewhere; B95.2 Enterococcus as the cause of diseases classified elsewhere; N18.31 Chronic kidney disease, stage 3a; I12.9 Hypertensive chronic kidney disease with stage 1 through stage 4 chronic kidney disease, or unspecified chronic kidney disease; I25.10 Atherosclerotic heart disease of native coronary artery without angina pectoris; I48.0 Paroxysmal atrial fibrillation; G47.33 Obstructive sleep apnea (adult) (pediatric); K21.9 Gastro-esophageal reflux disease without esophagitis; H40.9 Unspecified glaucoma; E03.9 Hypothyroidism, unspecified; E78.00 Pure hypercholesterolemia, unspecified; J44.9 Chronic obstructive pulmonary disease, unspecified; R33.8 Other retention of urine; N39.46 Mixed incontinence; M81.0 Age-related osteoporosis without current pathological fracture; D50.9 Iron deficiency anemia, unspecified; K29.30 Chronic superficial gastritis without bleeding; I73.9 Peripheral vascular disease, unspecified; K29.70 Gastritis, unspecified, without bleeding; E86.0 Dehydration; D63.1 Anemia in chronic kidney disease; Z96.611 Presence of right artificial shoulder joint; Z87.891 Personal history of nicotine dependence; Z90.49 Acquired absence of other specified parts of digestive tract; Z90.5 Acquired absence of kidney; Z95.5 Presence of coronary angioplasty implant and graft; Z90.710 Acquired absence of both cervix and uterus; Z90.81 Acquired absence of spleen; Z86.711 Personal history of pulmonary embolism; Z86.718 Personal history of other venous thrombosis and embolism; Z79.01 Long term (current) use of anticoagulants; Z95.820 Peripheral vascular angioplasty status with implants and grafts
CPT/HCPCS: 36415; 36430; 36569; 71045; 74176; 76775; 80053; 81001; 82274; 82306; 82550; 82570; 82728; 83540; 83550; 83605; 83690; 83735; 83880; 84100; 84132; 84156; 84300; 84540; 85014; 85018; 85025; 85027; 85610; 85730; 85999; 86140; 86850; 86900; 86901; 86923; 87040; 87045; 87086; 87181; 87186; 87427; 87449; 87493; 87637; 89055; 93005; 93970; 94640; 96361; 96365; 96367; 96375; 96376; 97110; 97161; 97166; 97530; 97535; 99285; A9270; C1751; G0378; J0612; J0696; J1756; J1836; J1938; J2003; J2185; J2270; J2405; J2470; J2550; J2704; J3475; J3480; J7030; J7040; J7050; J7070; J7120; P9016; Q5105

== ENCOUNTER 2025-03-20 12:51 | Outpatient (CLI) | payer OTHER, SELFPAY ==
--- OUTSIDE RECORDS SUMMARY | 2025-03-20 12:56 | XMS_ITS | Referral Summary ---
Author Organization [facility] al Address [address] [place] [address] Care Team Providers Care Entry Processor Name Role Phone Ricardo Freeman DO Primary Care Provider [phone] Encounters Date Type Department Care Team Description 12/31/2024 11:59 PM SUPERVISOR EXTRUDING DEPARTMENT Anesthesia Event [facility] Operating Room [address] [place] [address] Haley Rodriguez NP 02/27/2025 Telephone [facility] Cardiology [address] [place] [phone] Sarabjit Velasco MD 01/21/2025 Orders Only [facility] Cardiology [address] [place] [phone] Gosia Dalal, CLINT 01/16/2025 Telephone [facility] ([facility]) - [facility] Minimally Invasive Surgery [address] [facility] 12th Floor, [place] [phone] Kiara Reeder, ZAFAR 01/15/[address] [facility] Health Information Management [address] [place] [address] Umang Galicia MD 01/01/2025 Telephone [facility]) - [facility] Minimally Invasive Surgery [address] [facility] 12th Floor, [place] [address] Kiara Reeder, RN 12/31/2024 Telephone [facility] Minimally Invasive Surgery [address] [facility] 12th Floor, [place] [phone] Jorge Manning MD Medical Question/Miscellaneo us 12/31/2024 Telephone [facility] Cardiology [address] [place] [phone] Sarabjit Velasco MD cardiac clearance 12/31/2024 1:00 PM SUPERVISOR EXTRUDING DEPARTMENT Pre-Admission Testing [facility] for Preoperative Assessment and Planning [facility] ([facility]) [address] [place] [id number] Preoperative testing (Primary Dx) 12/30/2024 8:03 AM SUPERVISOR EXTRUDING DEPARTMENT - 12/30/2024 11:59 PM SUPERVISOR EXTRUDING DEPARTMENT Hospital Encounter [facility] Office Building [address] [place] [address] Peripheral arterial occlusive disease; Other specified symptoms and signs involving the circulatory and respiratory systems Discharge Disposition: Discharge to home or self care 12/30/2024 8:00 AM SUPERVISOR EXTRUDING DEPARTMENT - 12/30/2024 11:59 PM SUPERVISOR EXTRUDING DEPARTMENT Hospital Encounter [facility] [address] [place] [address] Peripheral arterial occlusive disease; Other specified symptoms and signs involving the circulatory and respiratory systems Discharge Disposition: Discharge to home or self care 12/26/2024 Telephone [facility]) [facility] Minimally Invasive Surgery [address] [place] [address] 12th Floor, [place] [phone] Kiara Reeder, RN 12/23/2024 Telephone [facility] Minimally Invasive Surgery [facility] 12th Floor, [place] [phone] Jorge Manning MD Med Management from Last 3 Months Allergies No known active allergies Medications oxybutynin XL (DITROPAN XL) 15 mg 24 hr tablet take 1 tablet by oral route every day 0 0 01/20/20 16 Active Additional Information Patient taking differently:15 mgoral Every morning, Indications: Bladder Hyperactivity, Informant: Self, Reported on 12/31/2024 levothyroxine (SYNTHROID) 88 mcg tabletIndications: hypothyroidism Take 1 tablet (88 mcg total) by mouth program scheduler before breakfast Active albuterol HFA (PROVENTIL HFA,VENTOLIN [...] 24 hr tabletIndications: 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 Assessment & Plan (12/27/2022 8:50 AM SUPERVISOR EXTRUDING DEPARTMENT): Impression: Patient has a 3.3 cm infrarenal abdominal aortic aneurysm seen on a CT abdomen pelvis in September 2022. She remains asymptomatic. Plan: We will continue to monitor with an abdominal duplex in September. Chronic venous insufficiency 12/27/2022 Atherosclerosis of cachil dehe ar teries of extremities with intermittent claudication, bilateral legs 12/27/2022 Assessment & Plan (06/20/2024 12:12 PM CDT): Patent fem-fem bypass graft per current duplex. Patient denies any claudication symptoms. Follow up in 6 months for routine surveillance with a fem-fem duplex continue aspirin Plavix and statin therapy. 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 Sheldon in 2014. Patient denies any worsening symptoms of claudication, ischemic rest pain or ulcerations to her lower extremity. Plan: Patient to follow-up with an arterial duplex during her postop venous duplex scans. History of DVT (deep vein thrombosis) 11/29/2022 Assessment & Plan (11/29/2022 10:06 AM SUPERVISOR EXTRUDING DEPARTMENT): Impression: Patient has a history of a [...] 05/19/2023. Assessment & Plan (12/27/2022 8:59 AM SUPERVISOR EXTRUDING DEPARTMENT): Impression: Patient continues to complain of pain [...] procedure. Assessment & Plan (11/29/2022 10:00 AM SUPERVISOR EXTRUDING DEPARTMENT): Impression: Patient complains of pain to left [...] needed. Assessment & Plan (12/27/2022 8:48 AM SUPERVISOR EXTRUDING DEPARTMENT): Impression: Patient has mild bilateral internal carotid arteries. She remains asymptomatic. Plan: Patient has mild carotid stenosis seen on duplex. No longer require surveillance. Follow up as needed. Encourage patient to notify the office or present to the ED if she experiences stroke-like symptoms. Patient voices understanding. Assessment & Plan (11/29/2022 10:30 AM SUPERVISOR EXTRUDING DEPARTMENT): Impression: Patient has a history of bilateral carotid artery stenosis being followed by her wool cleaner. Patient requesting the office to monitor. Patient [...] artery disease of n ative artery of cachil dehe heart with stable angina pectoris 10/01/2015 Overview (02/17/2017): Coronary artery disease Preoperative state 02/20/2015 Overview (02/17/2017): Pre-operative cardiovascular examination Hypertension 02/20/2015 Overview (02/17/2017): Hypertension Assessment & Plan (06/21/2023 11:15 AM CDT): Stable continue lisinopril 10 mg. Assessment & Plan (12/27/2022 9:05 AM SUPERVISOR EXTRUDING DEPARTMENT): Impression: Chronic hypertension. Plan: Continue Coreg and lisinopril. Assessment & Plan (11/29/2022 10:32 AM SUPERVISOR EXTRUDING DEPARTMENT): Impression: Chronic hypertension, controlled with Coreg and [...] Date Atherosclerosis of aorta (CMS/HCC) 12/26/2011 12/27/2022 Immunizations Immunization Administration Dates Next [...] on file Legal Sex Female 2:59 AM SUPERVISOR EXTRUDING DEPARTMENT Gender Identity Not on file Sexual Orientation Not on file Last Filed Vital Signs Vital Sign Reading Time Taken Comments Blood Pressure 133/70 12/31/2024 1:22 PM SUPERVISOR EXTRUDING DEPARTMENT Pulse 71 12/31/2024 1:20 PM SUPERVISOR EXTRUDING DEPARTMENT Temperature 37.1 C (98.7 F) 06/28/2024 9:02 AM CDT Respiratory Rate 18 12/31/2024 1:20 PM SUPERVISOR EXTRUDING DEPARTMENT Oxygen Saturation 98% 12/31/2024 1:20 PM SUPERVISOR EXTRUDING DEPARTMENT Inhaled Oxygen Concentration - - Weight 73.4 kg (161 lb 13.1 oz) 12/31/2024 5:14 PM SUPERVISOR EXTRUDING DEPARTMENT Height 157.5 cm (5' 2 ) 12/31/2024 1:20 PM SUPERVISOR EXTRUDING DEPARTMENT Body Mass Index 29.6 12/31/2024 1:20 PM SUPERVISOR EXTRUDING DEPARTMENT Plan of Treatment Not on file Medical Devices Implanted Type Area Art Instructor Device Identifier Shelf Expiration Date Model / Serial / Lot Graft Graft Femoral Description:2014 Stent Implanted:Qty: 1 Stent Coronary Artery Description:2015 Procedures Procedure Name Priority Date/Time Associated Diagnosis Comments CARDIOLOGY DOCUMENT SCAN Routine 01/20/2025 3:04 PM CDT CARDIOLOGY DOCUMENT SCAN Routine 01/17/2025 3:03 PM SUPERVISOR EXTRUDING DEPARTMENT CARDIOLOGY DOCUMENT SCAN Routine 01/16/2025 3:00 PM SUPERVISOR EXTRUDING DEPARTMENT CARDIOLOGY DOCUMENT SCAN Routine 01/15/2025 2:57 PM SUPERVISOR EXTRUDING DEPARTMENT SCAN - RADIOLOGY/IMAGING 01/15/2025 CARDIOLOGY DOCUMENT SCAN Routine 01/14/2025 2:21 PM SUPERVISOR EXTRUDING DEPARTMENT EGFR Routine 12/31/2024 2:50 PM SUPERVISOR EXTRUDING DEPARTMENT Preoperative testing DIFFERENTIAL AUTO Routine 12/31/2024 2:5 0 PM SUPERVISOR EXTRUDING DEPARTMENT Preoperative testing COMPREHENSIVE METABOLIC PANEL Routine 12/31/2024 2:50 PM SUPERVISOR EXTRUDING DEPARTMENT Preoperative testing CBC WITH AUTO DIFFERENTIAL Routine 12/31/2024 2:50 PM SUPERVISOR EXTRUDING DEPARTMENT Preoperative testing TYPE AND SCREEN 14 DAY Routine 12/31/2024 2:50 PM SUPERVISOR EXTRUDING DEPARTMENT Preoperative testing US PHIL Schedule Routine, Read Routine (OP Routine) 12/30/2024 11:41 AM SUPERVISOR EXTRUDING DEPARTMENT Peripheral arterial occlusive disease Other specified symptoms and signs involving the circulatory and respiratory systems US ARTERIAL DUPLEX LOWER EXTREMITY BILATERAL Routine 12/30/2024 10:12 AM SUPERVISOR EXTRUDING DEPARTMENT Peripheral arterial occlusive disease Other specified symptoms and signs involving the circulatory and respiratory systems CT VIRTUAL COLONOSCOPY DIAGNOSTIC W CONTRAST Routine 01/30/2017 2:38 PM CDT from Last 3 Months or Most Recently Relevant to Health Maintenance Results * Cardiology Document Scan (01/20/2025 3:04 PM CDT) Anatomical Region Laterality Modality Other Rah Carvalho MD CV CARDIAC SERVICES PROCEDURES F inal Result * Cardiology Document Scan (01/17/2025 3:03 PM SUPERVISOR EXTRUDING DEPARTMENT) Anatomical Region Laterality Modality Other Umang Galicia MD CV CARDIAC SERVICES PRO CEDURES Final Result * Cardiology Document Scan (01/16/2025 3:00 PM SUPERVISOR EXTRUDING DEPARTMENT) Anatomical Region Laterality Modality Other Rah Carvalho MD CV CARDIAC SERVICES PROCEDURES F inal Result * Cardiology Document Scan (01/15/2025 2:57 PM SUPERVISOR EXTRUDING DEPARTMENT) Anatomical Region Laterality Modality Other Umang Galicia MD CV CARDIAC SERVICES PRO CEDURES Final Result * SCAN - RADIOLOGY/IMAGING (01/15/2025) Anatomical Region Laterality Modality Other Umang Galicia MD Edited Result - Final * Cardiology Document Scan (01/14/2025 2:21 PM SUPERVISOR EXTRUDING DEPARTMENT) Anatomical Region Laterality Modality Other Gosia Dalal NP CV CARDIAC SERVICES PROCEDUR ES Final Result * TYPE AND SCREEN 14 DAY (12/31/2024 2:50 PM SUPERVISOR EXTRUDING DEPARTMENT) ABO Rh O Positive Fabiano, indirect Negative [facility] Blood 12/31/2024 2:50 PM SUPERVISOR EXTRUDING DEPARTMENT 12/31/2024 3:25 PM SUPERVISOR EXTRUDING DEPARTMENT Narrative [facility] - 12/31/2024 4:13 PM SUPERVISOR EXTRUDING DEPARTMENT Has the patient had Daratumumab or Isatuximab in the past 6 months?->No Is this test being ordered in advance for a procedure?->Yes Expected date of procedure:->01/02/25 Has the patient been transfused in the past 3 months?->No Has the patient been in the past 3 months?->No Corey Stanley NP LAB BLOOD BANK TEST TERRELLHector BOATENG Final Result [facility] [place] [address] * (ABNORMAL) eGFR (12/31/2024 2:50 PM SUPERVISOR EXTRUDING DEPARTMENT) eGFR 36(L) >=60 mL/min/1. 73 m2 Comment: [...] last reviewed 2021. Blood 12/31/2024 2:50 PM SUPERVISOR EXTRUDING DEPARTMENT 12/31/2024 3:25 PM SUPERVISOR EXTRUDING DEPARTMENT Corey Stanley NP LAB BLOOD ORDERABLES Fin al Result [facility] Department [place] [address] * (ABNORMAL) Differential, auto (12/31/2024 2:50 PM SUPERVISOR EXTRUDING DEPARTMENT) Neutrophil abs 9.4(H) 1.5 - 6.5 K/cumm Imm gran abs 0.1 0.0 - 0.1 K/cumm [facility] Lymphocyte abs 4.3(H) 0.8 - 3.3 K/cumm [facility] Monocyte abs 1.4(H) 0.2 - 0.8 K/cumm [facility] Eosinophil abs 0.0 0.0 - 0.5 K/cumm [facility] Basophil abs 0.0 0.0 - 0.1 K/cumm [facility] Neutrophil pct 62.0 % [facility] Comment: Interpretive Data Percent cell count reference ranges are not reported, since discordance with absolute values may lead to misinterpretation of CBC data. Current Interpretive Data was last revised on 2018. Imm gran pct 0.5 % [facility] Comment: Interpretive Data Percent cell count reference ranges are not reported, since discordance with absolute values may lead to misinterpretation of CBC data. Current Interpretive Data was last revised on 2018. Lymphocyte pct 28.4 % [facility] Comment: Interpretive Data Percent cell count reference ranges are not reported, since discordance with absolute values may lead to misinterpretation of CBC data. Current Interpretive Data was last revised on 2018. Monocyte pct 8.9 % [facility] Comment: Interpretive Data Percent cell count reference ranges are not reported, since discordance with absolute values may lead to misinterpretation of CBC data. Current Interpretive Data was last revised on 2018. Eosinophil pct 0.1 % [facility] Comment: Interpretive Data Percent cell count reference ranges are not reported, since discordance with absolute values may lead to misinterpretation of CBC data. Current Interpretive Data was last revised on 2018. Basophil pct 0.1 % [facility] Comment: Interpretive Data Percent cell count reference ranges are not reported, since discordance with absolute values may lead to misinterpretation of CBC data. Current Interpretive Data was last revised on 2018. Blood 12/31/2024 2:50 PM SUPERVISOR EXTRUDING DEPARTMENT 12/31/2024 3:26 PM SUPERVISOR EXTRUDING DEPARTMENT us Corey Stanley NP LAB BLOOD ORDERABLES Fin al Result [facility] Department [place] [address] * (ABNORMAL) CBC with auto differential (12/31/2024 2:50 PM SUPERVISOR EXTRUDING DEPARTMENT) WBC 15.1(H) 3.8 - 9.9 K/cumm Hgb 10.1(L) 11.9 - 15.5 g/dL [facility] Hct 31.4(L) 35.6 - 45.5 % [facility] Plt 355 150 - 400 K/cumm [facility] MPV 9.9 9.1 - 12.3 fL [facility] RBC 3.30(L) 3.90 - 5.20 M/cumm [facility] MCV 95.2 81.3 - 96.4 fL [facility] MCH 30.6 27.1 - 33.3 pg [facility] MCHC 32.2(L) 32.3 - 35.7 g/dL [facility] RDW CV 20.1(H) 11.1 - 14.9 % [facility] RDW SD 69.9(H) 35.7 - 48.1 fL [facility] NRBC abs 0.00 0.00 - 0.01 K/cumm [facility] Blood 12/31/2024 2:50 PM SUPERVISOR EXTRUDING DEPARTMENT 12/31/2024 3:26 PM SUPERVISOR EXTRUDING DEPARTMENT us Corey Stanley NP LAB BLOOD ORDERABLES Fin al Result [facility] Department [place] [address] * (ABNORMAL) Comprehensive metabolic panel (12/31/2024 2:50 PM SUPERVISOR EXTRUDING DEPARTMENT) Sodium 139 135 - 145 mmol/L Potassium, pl 5.1(H) 3.3 - 4.9 mmol/L [facility] Chloride 107 97 - 110 mmol/L [facility] CO2 21(L) 22 - 32 mmol/L [facility] Anion gap 11 2 - 15 mmol/L [facility] BUN 23 6 - 25 mg/dL [facility] Creatinine 1.56(H) 0.60 - 1.10 mg/dL [facility] Glucose 115 70 - 199 mg/dL [facility] Comment: Interpretive Data Fasting glucose [...] Calcium 9.3 8.5 - 10.3 mg/dL [facility] Bilirubin, total 0.3 0.1 - 1.2 mg/dL [facility] Protein, pl 7.9 6.5 - 8.5 g/dL [facility] Albumin 4.0 3.5 - 5.0 g/dL [facility] Alk phos 99 40 - 130 Units/L [facility] ALT 16 7 - 45 Units/L [facility] AST 18 10 - 45 Units/L [facility] Blood 12/31/2024 2:50 PM SUPERVISOR EXTRUDING DEPARTMENT 12/31/2024 3:25 PM SUPERVISOR EXTRUDING DEPARTMENT us Corey Stanley NP LAB BLOOD ORDERABLES Fin al Result [facility] Department [place] [address] * US PHIL (12/30/2024 11:41 AM SUPERVISOR EXTRUDING DEPARTMENT) Anatomical Region Laterality Modality Vascular N/A Ultrasound 12/30/2024 8:29 AM SUPERVISOR EXTRUDING DEPARTMENT Narrative 12/30/2024 4:06 PM SUPERVISOR EXTRUDING DEPARTMENT Lower Extremity Arterial Doppler Report Patient Name: GENARO GAYLE [place] : 1955 Study Date: 12/30/2024 8:29:00 AM Gender: F Audio Engineer: Juan Zazueta RDMS, RVT Ref Provider: KATARZYNA PEREIRA Quality: Adequate Order Provider: KATARZYNA PEREIRA PROCEDURES: Arterial Report: Ankle - Brachial Index Doppler exam. INDICATIONS: Peripheral Vascular Disease, Unspecified and Atherosclerosis of Eek Arteries of Extremities with Intermittent Claudication, Bilateral Leg. HISTORY: s/p right to left fem-fem bypass graft in 2015. Risk Factors: Previous smoker (quit about 9 years ago), hypertension, hyperlipidemia, heart disease, lung disease. COMPARISONS: The previous exam was completed on 06-19-2024. MEASUREMENTS: Right Value Left Value Rt Brachial Pressure 161 mmHg Lt Brachial Pressure 158 mmHg Rt CAUSTICS LOADER Pressure 180 mmHg Lt CAUSTICS LOADER Pressure 176 mmHg Rt DPA Pressure 154 [...] By: Vick Pereira MD 12/30/2024 3:09:59 PM SUPERVISOR EXTRUDING DEPARTMENT Procedure Note Vick Pereira MD - 12/30/2024 Lower Extremity Arterial Doppler Report Patient Name: GENARO GAYLE [place] : 1955 Study Date: 12/30/2024 8:29:00 AM Gender: F Audio Engineer: Juan Zazueta RDMS, RVT Ref Provider: KATARZYNA [...] mmHg Lt Brachial Pressure 158 mmHg Rt CAUSTICS LOADER Pressure 180 mmHg Lt CAUSTICS LOADER Pressure 176 mmHg Rt DPA Pressure 154 [...] By: Vick Pereira MD 12/30/2024 3:09:59 PM SUPERVISOR EXTRUDING DEPARTMENT us Katarzyna Pereira MD IMG US PROCEDURES Final Result * US Arterial Duplex Lower Extremity Bilateral (12/30/2024 10:12 AM SUPERVISOR EXTRUDING DEPARTMENT) Anatomical Region Laterality Modality Vascular Bilateral Ultrasound 12/30/2024 8:08 AM SUPERVISOR EXTRUDING DEPARTMENT Narrative 12/30/2024 4:07 PM SUPERVISOR EXTRUDING DEPARTMENT Lower Extremity Arterial Duplex Report Patient Name: GENARO GAYLE [place] : 1955 (69y 2m) Gender: F Study Date: 12/30/2024 08:08:32 AM Ht(Inch): Wt(Lb): BSA: Audio Engineer: Juan Zazueta Provider: KATARZYNA PEREIRA Quality: Adequate Ref Provider: KATARZYNA PEREIRA PROCEDURES: Arterial Report: A non-invasive vascular imaging study of the bilateral lower extremity arteries and bypass grafts was performed using B-mode ultrasound, color flow, and spectral Doppler. INDICATIONS: Atherosclerosis of cachil dehe arteries of extremities with intermittent claudication, bilateral and Encounter for surgical aftercare following surgery on the circulatory system. HISTORY: s/p right to left fem-fem bypass graft in 2014. Risk Factors: Hypertension, Hyperlipidemia, previous smoker (quit about 9 years ago), Heart disease, Lung disease. COMPARISONS: No change compared to prior study. The previous exam was completed on 06-19-2024. MEASUREMENTS: Right Value Left Value Rt NEW HOME SALES CONSULTANT Prx PSV 221.00 cm/sec Lt NEW HOME SALES CONSULTANT Dst PSV 197.00 cm/sec Lt Profunda Prx [...] By: Vick Pereira MD 12/30/2024 3:12:44 PM SUPERVISOR EXTRUDING DEPARTMENT Procedure Note Vick Pereira MD - 12/30/2024 Lower Extremity Arterial Duplex Report Patient Name: GENARO GAYLE [place] : 1955 (69y 2m) Gender: F Study Date: 12/30/2024 08:08:32 AM Ht(Inch): Wt(Lb): BSA: Audio Engineer: Juan Zazueta Provider: KATARZYNA PEREIRA Quality: Adequate Ref Provider: KATARZYNA PEREIRA PROCEDURES: Arterial Report: A non-invasive vascular imaging study of the bilaterallower extremity arteries and bypass grafts was performed using B-mode ultrasound, colorflow, and spectral Doppler. INDICATIONS: Atherosclerosis of cachil dehe arteries of extremities with intermittentclaudication, bilateral and Encounter for surgical aftercare following surgery on thecirculatory system. HISTORY: s/p right to left fem-fem bypass graft in 2014. Risk Factors: Hypertension, Hyperlipidemia, previous smoker (quit about 9years ago), Heart disease, Lung disease. COMPARISONS: No change compared to prior study. The previous exam was completed on06-19-2024. MEASUREMENTS: Right Value Left Value Rt NEW HOME SALES CONSULTANT Prx PSV 221.00 cm/sec Lt NEW HOME SALES CONSULTANT Dst PSV 197.00 cm/sec Lt Profunda Prx [...] By: Vick Pereira MD 12/30/2024 3:12:44 PM SUPERVISOR EXTRUDING DEPARTMENT Katarzyna Pereira MD [facility] US PROCEDURES Final Result * CT Virtual Colonoscopy Diagnostic W Contrast (01/30/2017 2:38 PM CDT) Anatomical Region Laterality Modality Body N/A Computed Tomogra phy 01/30/2017 2:38 PM CDT Narrative 01/30/2017 2:38 PM CDT Aleksandar BOYER M.D. FINAL REPORT The radiology attending physician has personally reviewed this study, and has reviewed and/or edited this written report and agrees with it. ACC# Date Time Exam [id number] Jan 30, 2017 09:38:[id number] Colonography Screen ACC# Date Time Exam [id number] Jan 30, 2017 09:38:[address] Colonography Screen EXAMINATION: CT colonography without [...] SHAW M.D. on Jan 30 2017 5:45P [id number] Procedure Note Miscellaneous, Notinfile / Provider, MD Alicia - 04/04/2017 Aleksandar BOYER M.D. FINAL REPORT The radiology attending physician has personally reviewed this study, and has reviewed and/or edited this written report and agrees with it. ACC# Date Time Exam [id number] Jan 30, 2017 09:38:[id number] Colonography Screen ACC# Date Time Exam [id number] Jan 30, 2017 09:38:[address] Colonography Screen EXAMINATION: CT colonography without [...] SHAW M.D. 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
--- OUTSIDE RECORDS SUMMARY | 2025-03-20 12:56 | XMS_ITS | Clinical Summary ---
Author Organization [facility] ut[facility] Address [address] [place] [id number] Phone Care Team Providers Care Media Relations Intern Name Role Phone BobyCarlito alonso Primary Care Provider [phone] Allergies No known active allergies Medications lansoprazole (PREVACID) [address] capsule 1 tab/cap bid 0 8 Active felodipine (PLENDIL) 10 MG 24 hr tablet 1 tab/cap qday 0 8 Active lisinopril (PRINIVIL,ZESTR IL) 10 MG tablet 1 tab/cap qday 0 8 Active carvedilol (COREG) 25 MG tablet 1 tab/cap bid 0 8 Active sertraline (ZOLOFT) 50 MG tablet 1 tab/cap qday 0 8 Active risedronate (ACTONEL) 150 MG tablet 1 tab/cap every month 0 8 Active nitroglycerin (NITROSTAT) 0.4 MG SL tablet as directed 0 8 Active atorvastatin (LIPITOR) 40 MG tablet 1 tab/cap qday 0 8 Active rivaroxaban (XARELTO) 20 MG tablet 1 tab/cap qday 0 8 Active clopidogrel (PLAVIX) 75 MG tablet 1 tab/cap qday 0 8 Active ticagrelor (BRILINTA) 90 MG tablet 1 tab/cap bid 0 8 Active oxybutynin XL (DITROPAN-XL) 15 MG 24 hr tablet 12 9 Active amitriptyline (ELAVIL) 25 MG tablet Take 1 tablet by mouth daily Active atenolol (TENORMIN) 50 MG tablet Take 1 tablet by mouth daily Active cholecalciferol (VITAMIN D-3) 10 MCG (400 UNIT) tablet Active Coral Calcium-Magnesi um-Vit D (RA CORAL CALCIUM) 200-100-100 MG-MG-UNIT capsule Active meloxicam (MOBIC) 7.5 MG tablet Take 7.5 mg by mouth 2 (two) times a day 9 Active oxyCODONE-aceta minophen (PERCOCET) 5-325 MG per tablet Take 1-2 tablets by mouth for pain 9 Active meclizine (ANTIVERT) 25 MG tablet TAKE 1 TABLET BY MOUTH THREE TIMES DAILY NEEDED FOR DIZZINESS 0 Active ranolazine (RANEXA) 500 MG 12 hr tablet 0 Active cephalexin (KEFLEX) 250 MG capsule Take 250 mg by mouth every night 0 Active albuterol HFA (PROVENTIL HFA) 108 (90 Base) MCG/ACT inhaler INHALE 1 PUFF BY MOUTH EVERY 4 TO 6 HOURS NEEDED FOR SHORTNESS OF BREATH OR WHEEZING 0 Active Symbicort 80-4.5 MCG/ACT inhaler INHALE 2 PUFFS BY MOUTH EVERY 12 HOURS RINSE AND SPIT USE WITH SPACER 0 Active sodium chloride (SIMBA 128) 5 % ophthalmic solution INSTILL 1 DROP INTO EACH EYE TWICE DAILY 1 Active furosemide (LASIX) 20 MG tablet TAKE 1 TABLET BY MOUTH ONCE DAILY NEEDED SWELLING 1 Active levothyroxine (SYNTHROID) 100 MCG tablet Take 100 mcg by mouth 1 (one) time each day 1 Active traMADol (ULTRAM) 50 MG tablet Take 50 mg by mouth every 6 (six) hours if needed for pain 1 Active levothyroxine (SYNTHROID) 88 MCG tablet Take 88 mcg by mouth 1 (one) time each day 1 Active warfarin (COUMADIN) 3 MG tablet 1 Active Stiolto Respimat 2.5-2.5 MCG/ACT aerosol solution inhaler 2 Active Active Problems Problem Noted Date Diagnosed [...] absence of kidney 02/18/2018 Coronary arteriosclerosis in [place] artery 10/01 Overview (05/22/2019): Coronary artery disease [...] unspecified 04/24/2012 Atherosclerosis of aorta 12/26/2011 Immunizations Immunization Administration Dates Next Due Influenza Injectable Mdck [...] = 0.6 oz pur e alcohol) Comments Unknown Sex and Gender Information Value Date Recorded Sex Assigned at Not on file Legal Sex Female 9:30 AM [facility] Gender Identity Not on file Sexual Orientation [...] and Highest Risk (2 of 4 - PPSV23) 01/11/2017 11/16/2016 Influenza Vaccine (Season Ended) 2025 08/13/20 19 Insurance [employer] [facility] Address: [address] [id number] Care Teams Media Relations Intern Relationship Specialty Start Date End Date Carlito Guerrero DO [address] [facility] [address] [place] [id number] PCP - General Internal Medicine 05/22/19
--- OUTSIDE RECORDS SUMMARY | 2025-03-20 12:56 | XMS_ITS | Clinical Summary ---
Author Organization [facility] Address [address] [place] [id number] Care Team Providers Care Dust Brush Assembler Name Role Phone Carlito Guerrero MD Primary Care Provider [phone] Sarabjit Velasco MD Unavailable [phone] Allergies No known active allergies Medications No [...] Vaccines (1 of 2) 2006 Pneumococcal Vaccine: 50+ Ye ars (2 of 2 - PPSV23) 01/11/2017 11/16/2016 Annual Medicare Wellness Visit 2021 Dexa Scan (General) 2021 COVID-19 Vaccine (1 - 2023-2 5 season) 2024 RSV Immunization or 60+ Years (1 - 1-dose 75+ series) 2031 RSV Immunizations Under 20 Months Aged Out No longer eligible based on patient's age to complete this topic Insurance [employer] Care Teams Dust Brush Assembler Relationship Specialty Start Date End Date Carlito Guerrero MD [address] [place], [place] [id number] PCP - General INTERNAL MEDICINE 05/11/22 Sarabjit Velasco MD [address] [place] [address] CARDIOVASCULAR DISEASE 05/11/22
--- OUTSIDE RECORDS SUMMARY | 2025-03-20 12:56 | XMS_ITS | Clinical Summary ---
Author Organization [facility] Address [address] [place] [address] Care Team Providers Care Fur Cleaner Name Role Phone Ricardo Freeman DO Primary Care Provider [phone] Allergies No known active allergies Medications oxybutynin XL (DITROPAN XL) 15 mg 24 hr tablet take 1 tablet by oral route every day 0 0 01/20/20 16 Active Additional Information Patient taking differently:15 mgoral Every morning, Indications: Bladder Hyperactivity, Informant: Self, Reported on 12/31/2024 levothyroxine (SYNTHROID) 88 mcg tabletIndications: hypothyroidism Take 1 tablet (88 mcg total) by mouth rubber goods inspector before breakfast Active albuterol HFA (PROVENTIL HFA,VENTOLIN [...] 24 hr tabletIndications: Coronary artery disease of [place] artery of [place] heart with stable angina pectoris Take 1 [...] 12 hr tabletIndications: Coronary artery disease of [place] artery of [place] heart with stable angina pectoris Take 1 [...] therapy Assessment & Plan (12/21/2023 1:27 PM PERSONAL INJURY LITIGATION PARALEGAL): Continue risk factor modifications and continue annual [...] surveillance. Assessment & Plan (12/27/2022 8:50 AM PERSONAL INJURY LITIGATION PARALEGAL): Impression: Patient has a 3.3 cm infrarenal abdominal aortic aneurysm seen on a CT abdomen pelvis in September 2022. She remains asymptomatic. Plan: We will continue to monitor with an abdominal duplex in September. Chronic venous insufficiency 12/27/2022 Atherosclerosis of [place] ar teries of extremities with intermittent claudication, bilateral legs 12/27/2022 Assessment & Plan (06/20/2024 12:12 PM CDT): Patent fem-fem bypass graft per current duplex. Patient denies any claudication symptoms. Follow up in 6 months for routine surveillance with a fem-fem duplex continue aspirin Plavix and statin therapy. Assessment & Plan (12/21/2023 1:28 PM PERSONAL INJURY LITIGATION PARALEGAL): Bilateral lower extremity arterial occlusive disease status [...] duplex Assessment & Plan (12/27/2022 9:00 AM PERSONAL INJURY LITIGATION PARALEGAL): Impression: Patient has a history of iliac occlusion and underwent a fem-fem bypass graft by Dr. Sheldon in 2014. Patient denies any worsening symptoms of claudication, ischemic rest pain or ulcerations to her lower extremity. Plan: Patient to follow-up with an arterial duplex during her postop venous duplex scans. History of DVT (deep vein thrombosis) 11/29/2022 Assessment & Plan (11/29/2022 10:06 AM PERSONAL INJURY LITIGATION PARALEGAL): Impression: Patient has a history of a [...] 05/19/2023. Assessment & Plan (12/27/2022 8:59 AM PERSONAL INJURY LITIGATION PARALEGAL): Impression: Patient continues to complain of pain [...] procedure. Assessment & Plan (11/29/2022 10:00 AM PERSONAL INJURY LITIGATION PARALEGAL): Impression: Patient complains of pain to left [...] needed. Assessment & Plan (12/27/2022 8:48 AM PERSONAL INJURY LITIGATION PARALEGAL): Impression: Patient has mild bilateral internal carotid arteries. She remains asymptomatic. Plan: Patient has mild carotid stenosis seen on duplex. No longer require surveillance. Follow up as needed. Encourage patient to notify the office or present to the ED if she experiences stroke-like symptoms. Patient voices understanding. Assessment & Plan (11/29/2022 10:30 AM PERSONAL INJURY LITIGATION PARALEGAL): Impression: Patient has a history of bilateral carotid artery stenosis being followed by her distribution operations manager. Patient requesting the office to monitor. [...] artery disease of n ative artery of [place] mountain heart with stable angina pectoris 10/01/2015 Overview (02/17/2017): Coronary artery disease Preoperative state 02/20/2015 Overview (02/17/2017): Pre-operative cardiovascular examination Hypertension 02/20/2015 Overview (02/17/2017): Hypertension Assessment & Plan (06/21/2023 11:15 AM CDT): Stable continue lisinopril 10 mg. Assessment & Plan (12/27/2022 9:05 AM PERSONAL INJURY LITIGATION PARALEGAL): Impression: Chronic hypertension. Plan: Continue Coreg and lisinopril. Assessment & Plan (11/29/2022 10:32 AM PERSONAL INJURY LITIGATION PARALEGAL): Impression: Chronic hypertension, controlled with Coreg and [...] Encounters Date Type Department Care Team Description 02/27/2025 Telephone [facility] Medical Group Cardiology [address] [place] [address] Sarabjit Velasco MD 01/21/2025 Orders Only [facility] Medical [facility] Cardiology [address] [place] [address] Gosia Dalal NP 01/16/2025 Telephone [facility] ([facility] - [facility] Minimally Invasive Surgery [address] Advanced Medicine 12th Floor, [place] [address] Kiara Reeder, ZAFAR 01/15/2025 Orders Only [facility] Health Information Management [address] [place] [address] Umang Galicia MD 01/01/2025 Telephone [facility] ([facility] - [facility] Minimally Invasive Surgery [address] Advanced Medicine 12th Floor, [place] [address] Kiara Reeder, ZAFAR 12/31/2024 11:59 PM PERSONAL INJURY LITIGATION PARALEGAL Anesthesia Event [facility] Operating Room [address] [place] [address] Haley Rodriguez NP 12/31/2024 1:00 PM PERSONAL INJURY LITIGATION PARALEGAL Pre-Admission Testing [facility] for Preoperative [facility] ([facility]) [address] [place] [address] Preoperative testing (Primary Dx) 12/31/2024 Telephone [facility]) [facility] Minimally Invasive Surgery [address] [facility] [address] [facility] [address]th [address], [place] [phone] Jorge Manning MD Medical Question/Miscellaneo us 12/31/2024 Telephone [facility] Medical Group Cardiology [address] [place] [address] Sarabjit Velasco MD cardiac clearance 12/30/2024 8:03 AM PERSONAL INJURY LITIGATION PARALEGAL - 12/30/2024 11:59 PM PERSONAL INJURY LITIGATION PARALEGAL Hospital Encounter [facility] Medical Office Building [address] [place] [address] [address] Peripheral arterial occlusive disease; Other specified symptoms and signs involving the circulatory and respiratory systems Discharge Disposition: Discharge to home or self care 12/30/2024 8:00 AM PERSONAL INJURY LITIGATION PARALEGAL - 12/30/2024 11:59 PM PERSONAL INJURY LITIGATION PARALEGAL Hospital Encounter [facility] Office Building [address] [place] [address] [address] Peripheral arterial occlusive disease; Other specified symptoms and signs involving the circulatory and respiratory systems Discharge Disposition: Discharge to home or self care 12/26/2024 Telephone [facility] ([facility]) [facility] Minimally Invasive Surgery [address] [facility] [address], [place] [address] Kiara Reeder, ZAFAR 12/23/2024 Telephone [facility] ([facility]) [facility] Minimally Invasive Surgery [address] [facility] [address], [place] [address] Jorge Manning MD Med Management from Last 3 Months Immunizations Immunization Administration [...] retroperitoneal fibrosis, status post left nephrec; Comments: [facility] 02/20/2015 - Hx Other Medical glaucoma, JANNY, obesity, hypercholesterolemia, dent; Comments: [facility] 02/20/2015 - Hypertension HLD (hyperlipidemia) Sleep apnea [...] on file Legal Sex Female 2:59 AM PERSONAL INJURY LITIGATION PARALEGAL Gender Identity Not on file Sexual Orientation Not on file Obstetrics History Last Filed Vital Signs Vital Sign Reading Time Taken Comments Blood Pressure 133/70 12/31/2024 1:22 PM PERSONAL INJURY LITIGATION PARALEGAL Pulse 71 12/31/2024 1:20 PM PERSONAL INJURY LITIGATION PARALEGAL Temperature 37.1 C (98.7 F) 06/28/2024 9:02 AM CDT Respiratory Rate 18 12/31/2024 1:20 PM PERSONAL INJURY LITIGATION PARALEGAL Oxygen Saturation 98% 12/31/2024 1:20 PM PERSONAL INJURY LITIGATION PARALEGAL Inhaled Oxygen Concentration - - Weight 73.4 kg (161 lb 13.1 oz) 12/31/2024 5:14 PM PERSONAL INJURY LITIGATION PARALEGAL Height 157.5 cm (5' 2 ) 12/31/2024 1:20 PM PERSONAL INJURY LITIGATION PARALEGAL Body Mass Index 29.6 12/31/2024 1:20 PM PERSONAL INJURY LITIGATION PARALEGAL Plan of Treatment Health Maintenance Due Date [...] 10/30/2018, 08/08/2018 Medical Devices Implanted Type Area Used Car Make Ready Mechanic Device Identifier Shelf Expiration Date Model / Serial / Lot Graft Graft Femoral Description:2014 Stent Implanted:Qty: 1 Stent Coronary Artery Description:2014 Procedures Procedure Name Priority Date/Time Associated Diagnosis Comments CARDIOLOGY DOCUMENT SCAN Routine 01/20/2025 3:04 PM CDT CARDIOLOGY DOCUMENT SCAN Routine 01/17/2025 3:03 PM PERSONAL INJURY LITIGATION PARALEGAL CARDIOLOGY DOCUMENT SCAN Routine 01/16/2025 3:00 PM PERSONAL INJURY LITIGATION PARALEGAL CARDIOLOGY DOCUMENT SCAN Routine 01/15/2025 2:57 PM PERSONAL INJURY LITIGATION PARALEGAL SCAN - RADIOLOGY/IMAGING 01/15/2025 CARDIOLOGY DOCUMENT SCAN Routine 01/14/2025 2:21 PM PERSONAL INJURY LITIGATION PARALEGAL EGFR Routine 12/31/2024 2:50 PM PERSONAL INJURY LITIGATION PARALEGAL Preoperative testing DIFFERENTIAL AUTO Routine 12/31/2024 2:5 0 PM PERSONAL INJURY LITIGATION PARALEGAL Preoperative testing COMPREHENSIVE METABOLIC PANEL Routine 12/31/2024 2:50 PM PERSONAL INJURY LITIGATION PARALEGAL Preoperative testing CBC WITH AUTO DIFFERENTIAL Routine 12/31/2024 2:50 PM PERSONAL INJURY LITIGATION PARALEGAL Preoperative testing TYPE AND SCREEN 14 DAY Routine 12/31/2024 2:50 PM PERSONAL INJURY LITIGATION PARALEGAL Preoperative testing US PHIL Schedule Routine, Read Routine (OP Routine) 12/30/2024 11:41 AM PERSONAL INJURY LITIGATION PARALEGAL Peripheral arterial occlusive disease Other specified symptoms and signs involving the circulatory and respiratory systems US ARTERIAL DUPLEX LOWER EXTREMITY BILATERAL Routine 12/30/2024 10:12 AM PERSONAL INJURY LITIGATION PARALEGAL Peripheral arterial occlusive disease Other specified symptoms [...] * Cardiology Document Scan (01/17/2025 3:03 PM PERSONAL INJURY LITIGATION PARALEGAL) Anatomical Region Laterality Modality Other Umang Galicia MD CV CARDIAC SERVICES PRO CEDURES Final Result * Cardiology Document Scan (01/16/2025 3:00 PM PERSONAL INJURY LITIGATION PARALEGAL) Anatomical Region Laterality Modality Other Rah Carvalho MD CV CARDIAC SERVICES PROCEDURES F inal Result * Cardiology Document Scan (01/15/2025 2:57 PM PERSONAL INJURY LITIGATION PARALEGAL) Anatomical Region Laterality Modality Other Umang Galicia MD CV CARDIAC SERVICES PRO CEDURES Final Result * SCAN - RADIOLOGY/IMAGING (01/15/2025) Anatomical Region Laterality Modality Other Result [facility] Umang Galicia MD Edited Result - Final * Cardiology Document Scan (01/14/2025 2:21 PM PERSONAL INJURY LITIGATION PARALEGAL) Anatomical Region Laterality Modality Other Gosia Dalal NP CV CARDIAC SERVICES PROCEDUR ES Final Result * TYPE AND SCREEN 14 DAY (12/31/2024 2:50 PM PERSONAL INJURY LITIGATION PARALEGAL) ABO Rh O Positive Fabiano, indirect [facility] Blood 12/31/2024 2:50 PM PERSONAL INJURY LITIGATION PARALEGAL 12/31/2024 3:25 PM PERSONAL INJURY LITIGATION PARALEGAL Narrative ELVIN [facility] - 12/31/2024 4:13 PM PERSONAL INJURY LITIGATION PARALEGAL Has the patient had Daratumumab or Isatuximab in the past 6 months?->No Is this test being ordered in advance for a procedure?->Yes Expected date of procedure:->01/02/25 Has the patient been transfused in the past 3 months?->No Has the patient been in the past 3 months?->No Corey Stanley NP LAB BLOOD BANK TEST ORDE TASNEEM Final Result Performing Organization Address [facility] Co de Phone Number ELVIN [facility] Department [place] [address] * (ABNORMAL) eGFR (12/31/2024 2:50 PM PERSONAL INJURY LITIGATION PARALEGAL) eGFR 36(L) >=60 mL/min/1. 73 m2 Comment: [...] last reviewed 2021. Blood 12/31/2024 2:50 PM PERSONAL INJURY LITIGATION PARALEGAL 12/31/2024 3:25 PM PERSONAL INJURY LITIGATION PARALEGAL Corey Stanley NP LAB BLOOD ORDERABLES Fin al Result Performing Organization Address [facility]/ZIP Co de Phone Number [facility] [place] [address] * (ABNORMAL) Differential, auto (12/31/2024 2:50 PM PERSONAL INJURY LITIGATION PARALEGAL) Neutrophil abs 9.4(H) 1.5 - 6.5 K/cumm Imm gran abs 0.1 0.0 - 0.1 K/cumm [facility] Lymphocyte abs 4.3(H) 0.8 - 3.3 K/cumm [facility] Monocyte abs 1.4(H) 0.2 - 0.8 K/cumm [facility] Eosinophil abs 0.0 0.0 - 0.5 K/cumm [facility] Basophil abs 0.0 0.0 - 0.1 K/cumm [facility] Neutrophil pct 62.0 % [facility] Comment: Interpretive Data Percent cell count reference ranges are not reported, since discordance with absolute values may lead to misinterpretation of CBC data. Current Interpretive Data was last revised on 2018. Imm gran pct 0.5 % [facility] Comment: Interpretive Data Percent cell count reference ranges are not reported, since discordance with absolute values may lead to misinterpretation of CBC data. Current Interpretive Data was last revised on 2018. Lymphocyte pct 28.4 % [facility] Comment: Interpretive Data Percent cell count reference ranges are not reported, since discordance with absolute values may lead to misinterpretation of CBC data. Current Interpretive Data was last revised on 2018. Monocyte pct 8.9 % [facility] Comment: Interpretive Data Percent cell count reference ranges are not reported, since discordance with absolute values may lead to misinterpretation of CBC data. Current Interpretive Data was last revised on 2018. Eosinophil pct 0.1 % [facility] Comment: Interpretive Data Percent cell count reference ranges are not reported, since discordance with absolute values may lead to misinterpretation of CBC data. Current Interpretive Data was last revised on 2018. Basophil pct 0.1 % [facility] Comment: Interpretive Data Percent cell count reference ranges are not reported, since discordance with absolute values may lead to misinterpretation of CBC data. Current Interpretive Data was last revised on 2018. Blood 12/31/2024 2:50 PM PERSONAL INJURY LITIGATION PARALEGAL 12/31/2024 3:26 PM PERSONAL INJURY LITIGATION PARALEGAL us Corey Stanley NP LAB BLOOD ORDERABLES Fin al Result [facility] Department [place] [address] * (ABNORMAL) CBC with auto differential (12/31/2024 2:50 PM PERSONAL INJURY LITIGATION PARALEGAL) [facility] WBC 15.1(H) 3.8 - 9.9 K/cumm Hgb 10.1(L) 11.9 - 15.5 g/dL [facility] Hct 31.4(L) 35.6 - 45.5 % [facility] Plt 355 150 - 400 K/cumm [facility] MPV 9.9 9.1 - 12.3 fL [facility] RBC 3.30(L) 3.90 - 5.20 M/cumm [facility] MCV 95.2 81.3 - 96.4 fL [facility] MCH 30.6 27.1 - 33.3 pg [facility] MCHC 32.2(L) 32.3 - 35.7 g/dL [facility] RDW CV 20.1(H) 11.1 - 14.9 % [facility] RDW SD 69.9(H) 35.7 - 48.1 fL [facility] NRBC abs 0.00 0.00 - 0.01 K/cumm [facility] Blood 12/31/2024 2:50 PM PERSONAL INJURY LITIGATION PARALEGAL 12/31/2024 3:26 PM PERSONAL INJURY LITIGATION PARALEGAL us Croey Stanley NP LAB BLOOD ORDERABLES Fin al Result [facility] Department [place] [address] * (ABNORMAL) Comprehensive metabolic panel (12/31/2024 2:50 PM PERSONAL INJURY LITIGATION PARALEGAL) [facility] Sodium 139 135 - 145 mmol/L Potassium, pl 5.1(H) 3.3 - 4.9 mmol/L [facility] Chloride 107 97 - 110 mmol/L [facility] CO2 21(L) 22 - 32 mmol/L [facility] Anion gap 11 2 - 15 mmol/L [facility] BUN 23 6 - 25 mg/dL [facility] Creatinine 1.56(H) 0.60 - 1.10 mg/dL [facility] Glucose 115 70 - 199 mg/dL [facility] Comment: Interpretive Data Fasting glucose >/= [...] 2022. Calcium 9.3 8.5 - 10.3 mg/dL [facility] Bilirubin, total 0.3 0.1 - 1.2 mg/dL [facility] Protein, pl 7.9 6.5 - 8.5 g/dL [facility] Albumin 4.0 3.5 - 5.0 g/dL [facility] Alk phos 99 40 - 130 Units/L [facility] ALT 16 7 - 45 Units/L [facility] AST 18 10 - 45 Units/L [facility] Blood 12/31/2024 2:50 PM PERSONAL INJURY LITIGATION PARALEGAL 12/31/2024 3:25 PM PERSONAL INJURY LITIGATION PARALEGAL us Corey Stanley NP LAB BLOOD ORDERABLES Fin al Result Performing Organization Address City/State/[facility] Co de Phone Number [facility] Department [place] [address] * US PHIL (12/30/2024 11:41 AM PERSONAL INJURY LITIGATION PARALEGAL) Anatomical Region Laterality Modality Vascular N/A Ultrasound 12/30/2024 8:29 AM PERSONAL INJURY LITIGATION PARALEGAL Narrative 12/30/2024 4:06 PM PERSONAL INJURY LITIGATION PARALEGAL Lower Extremity Arterial Doppler Report Patient Name: GENARO GAYLE [place] : 1955 Study Date: 12/30/2024 8:29:00 AM Gender: F Tumbler Operator: Juan Zazueta RDMS, RVT Ref Provider: KATARZYNA PEREIRA Quality: Adequate Order Provider: KATARZYNA PEREIRA PROCEDURES: Arterial Report: Ankle - Brachial Index Doppler exam. INDICATIONS: Peripheral Vascular Disease, Unspecified and Atherosclerosis of [place] Arteries of Extremities with Intermittent Claudication, Bilateral Leg. HISTORY: s/p right to left fem-fem bypass graft in 2015. Risk Factors: Previous smoker (quit about 9 years ago), hypertension, hyperlipidemia, heart disease, lung disease. COMPARISONS: The previous exam was completed on 06-19-2024. MEASUREMENTS: Right Value Left Value Rt Brachial Pressure 161 mmHg Lt Brachial Pressure 158 mmHg Rt APPLICATIONS SALES REPRESENTATIVE Pressure 180 mmHg Lt APPLICATIONS SALES REPRESENTATIVE Pressure 176 mmHg Rt DPA Pressure 154 [...] By: Vick Pereira MD 12/30/2024 3:09:59 PM PERSONAL INJURY LITIGATION PARALEGAL Procedure Note Vick Pereira MD - 12/30/2024 Lower Extremity Arterial Doppler Report Patient Name: GENARO GAYLE [place] : 1955 Study Date: 12/30/2024 8:29:00 AM Gender: F Tumbler Operator: Juan Zazueta RDMS, RVT Ref Provider: [...] mmHg Lt Brachial Pressure 158 mmHg Rt APPLICATIONS SALES REPRESENTATIVE Pressure 180 mmHg Lt APPLICATIONS SALES REPRESENTATIVE Pressure 176 mmHg Rt DPA Pressure 154 [...] By: Vick Pereira MD 12/30/2024 3:09:59 PM PERSONAL INJURY LITIGATION PARALEGAL us Katarzyna Pereira MD IMG US PROCEDURES Final Result * US Arterial Duplex Lower Extremity Bilateral (12/30/2024 10:12 AM PERSONAL INJURY LITIGATION PARALEGAL) Anatomical Region Laterality Modality Vascular Bilateral Ultrasound 12/30/2024 8:08 AM PERSONAL INJURY LITIGATION PARALEGAL Narrative 12/30/2024 4:07 PM PERSONAL INJURY LITIGATION PARALEGAL Lower Extremity Arterial Duplex Report Patient Name: GENARO GAYLE [place] : 1955 (69y 2m) Gender: F Study Date: 12/30/2024 08:08:32 AM Ht(Inch): Wt(Lb): BSA: Tumbler Operator: Juan Zazueta Provider: KATARZYNA PEREIRA Quality: Adequate Ref Provider: KATARZYNA PEREIRA PROCEDURES: Arterial Report: A non-invasive vascular imaging study of the bilateral lower extremity arteries and bypass grafts was performed using B-mode ultrasound, color flow, and spectral Doppler. INDICATIONS: Atherosclerosis of [place] arteries of extremities with intermittent claudication, bilateral and Encounter for surgical aftercare following surgery on the circulatory system. HISTORY: s/p right to left fem-fem bypass graft in 2014. Risk Factors: Hypertension, Hyperlipidemia, previous smoker (quit about 9 years ago), Heart disease, Lung disease. COMPARISONS: No change compared to prior study. The previous exam was completed on 06-19-2024. MEASUREMENTS: Right Value Left Value Rt REPAIR ARMATURE WINDER Prx PSV 221.00 cm/sec Lt REPAIR ARMATURE WINDER Dst PSV 197.00 cm/sec Lt Profunda Prx [...] By: Vick Pereira MD 12/30/2024 3:12:44 PM PERSONAL INJURY LITIGATION PARALEGAL Procedure Note Vick Pereira MD - 12/30/2024 Lower Extremity Arterial Duplex Report Patient Name: GENARO GAYLE [place] : 1955 (69y 2m) Gender: F Study Date: 12/30/2024 08:08:32 AM Ht(Inch): Wt(Lb): BSA: Tumbler Operator: Juan Zazueta Provider: KATARZYNA PEREIRA Quality: Adequate Ref Provider: KATARZYNA PEREIRA PROCEDURES: Arterial Report: A non-invasive vascular imaging study of the bilaterallower extremity arteries and bypass grafts was performed using B-mode ultrasound, colorflow, and spectral Doppler. INDICATIONS: Atherosclerosis of [place] arteries of extremities with intermittentclaudication, bilateral and Encounter for surgical aftercare following surgery on thecirculatory system. HISTORY: s/p right to left fem-fem bypass graft in 2015. Risk Factors: Hypertension, Hyperlipidemia, previous smoker (quit about 9years ago), Heart disease, Lung disease. COMPARISONS: No change compared to prior study. The previous exam was completed on06-19-2024. MEASUREMENTS: Right Value Left Value Rt REPAIR ARMATURE WINDER Prx PSV 221.00 cm/sec Lt REPAIR ARMATURE WINDER Dst PSV 197.00 cm/sec Lt Profunda Prx [...] By: Vick Pereira MD 12/30/2024 3:12:44 PM PERSONAL INJURY LITIGATION PARALEGAL Katarzyna Pereira MD IM US PROCEDURES Final Result * CT Virtual [...] agrees with it. ACC# Date Time Exam [id number] Jan 30, 2017 09:38:[id number] Colonography Screen ACC# Date Time Exam [id number] Jan 30, 2017 09:38:[id number] Colonography Screen EXAMINATION: CT colonography without [...] SHAW M.D. on Jan 30 2017 5:45P [id number] Procedure Note Miscellaneous, Notinfile / Provider, MD Alicia - 04/04/2017 GRAZYNA SHAW M.D. PUNEET ALVAREZ M.D. FINAL REPORT The radiology attending physician has personally reviewed this study, and has reviewed and/or edited this written report and agrees with it. ACC# Date Time Exam [id number] Jan 30, 2017 09:38:[id number] Colonography Screen ACC# Date Time Exam [id number] Jan 30, 2017 09:38:[id number] Colonography Screen EXAMINATION: CT colonography without [...] SHAW M.D. on Jan 30 2017 5:45P [id number] us Not In File Miscellaneous IMG CT PROCEDURES Evelin l Result from Last 3 Months or Most Recently Relevant to Health Maintenance Additional Health Concerns Infection Onset Date Last Indicated MDR gram neg/ESBL 11/29/2023 11/29/2023 Insurance HEALTHCARE HE[facility]CARE [facility] Advance Directives For more information, please contact: [phone] * Full Code (Latest Code Status on File) Date Activated Date Inactivated Comments 11/28/2023 12:54 PM 12/01/2023 6:05 PM Care Teams Fur Cleaner Relationship Specialty Start Date End Date Ricardo Freeman DO [address] [address] PCP - General Internal Medicine 06/19/24
[2025-03-20 13:14] VITALS: PULSE 88; O2SAT 96
--- NOTE | 2025-03-20 13:15 | HOMEO2EVAL ---
Evaluation was performed at [facility] Home Oxygen Evaluation RC: Home Oxygen (O2) Evaluation Start: 03/20/25 13:14 Freq: Status: Active Protocol: RPE Activity Type Activity Date Activity User E-sign Co-sign Detail Recorded Client Recorded Date Recorded By Document 03/20/25 13:14 FELICIA [id number] 03/20/25 13:15 LINDAO 03/20/25 13:14 Home O2 Evaluation [Oxygen] -Test Phase Resting -Oxygen Delivery Room Air [Pulse Oximetry] -Pulse Oximetry (90-100 %) 96 [Pulse Rate] -Pulse Rate (60-100 beats/min) 88 [Comments] -Home Oxygen Evaluation Comments PT STATES SHE IS NON AMBULATORY [Charges] -Evaluation Charges O2 Evaluation by Pulmonary
== END 2025-03-20 12:52 | disposition home or self-care (01) ==
LOC: ANHPFT 12:52
PROVIDERS: PCP Internal Medicine; Visit Provider Physician Assistant
DX: J44.9 Chronic obstructive pulmonary disease, unspecified (principal)
CPT/HCPCS: 94618

== ENCOUNTER 2025-04-24 11:09 | Outpatient (CLI) | payer OTHER, SELFPAY ==
--- NOTE | ~2025-04-24 | US_ITS ---
Renal-Bladder ultrasound Clinical History: Acute renal failure Technique: Real-time sonographic imaging of the kidneys and urinary bladder was performed. Findings: The right kidney measures 11.3 cm in length. No right hydronephrosis or renal stone. No rig ht renal mass seen. Renal echogenicity is unremarkable. Status post left nephrectomy. The urinary bladder is prominently distended at the time of this exam. Probable minimal layering debr is. No wall thickening. Impression: Unremarkable right kidney. Status post left nephrectomy. Distended urinary bladder with small amount of debris. Reviewed, dictated and finalized at location . Impression: Unremarkable right kidney. Status post left nephrectomy. Distended urinary bladder with small amount of debris.
--- OUTSIDE RECORDS SUMMARY | 2025-04-24 12:14 | XMS_ITS | Clinical Summary ---
Author Organization [facility] Address [address] [place] [address] Care Team Providers Care Manager Customs Name Role Phone Ricardo Freeman DO Primary Care Provider [phone] Allergies No known active allergies Medications oxybutynin XL (DITROPAN XL) 15 mg 24 hr tablet take 1 tablet by oral route every day 0 0 01/20/20 16 Active levothyroxine (SYNTHROID) 88 mcg tabletIndications: hypothyroidism Take 1 tablet (88 mcg total) by mouth locks inspector before breakfast Active albuterol HFA (PROVENTIL [...] morning 90 tablet 3 05/24/20 24 Active rosuvastatin (CRESTOR) 40 mg tablet Take 1 tablet by mouth once daily 90 tablet 2 07/22/20 24 Active lansoprazole (PREVACID) 15 mg capsuleIndications :GERD Take 1 capsule (15 mg total) by mouth daily as needed Active isosorbide mononitrate ER (IMDUR) 30 mg 24 hr tabletIndications: 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 Take 1 tablet (30 mg total) by mouth daily 30 tablet 11 11/01/20 24 025 Active nitroglycerin (NITROSTAT) 0.[address] 1 tablet (0.4 mg total) under the tongue every 5 (five) minutes as needed for chest pain (May repeat every 5 min up to 3 doses in 15 min.) 25 tablet 11 11/01/20 24 Active ranolazine ER (RANEXA) 500 mg 12 hr tabletIndications: 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 Take 1 tablet by mouth twice daily 180 tablet 3 12/23/19 25 Active acetaminophen (TYLENOL) 500 mg tabletIndications: Pain Take 2 tablets (1,000 mg total) by mouth every 6 (six) hours as needed for pain Active calcium carbonate (TUMS) 500 mg (200 mg elemental calcium) chewable tabletIndications: Heartburn Take 2 tablet/chew tab (1,000 mg total) by mouth daily as needed for indigestion or heartburn Active ipratropium-albute roL (DUO-NEB) 0.5-2.5 mg/3 mL nebulizer solution as needed 01/29/20 25 Active sodium bicarbonate 650 mg tablet Take 1 tablet (650 mg total) by mouth 2 (two) times a day 04/11/20 25 Active warfarin (COUMADIN) 3 mg tabletIndications: Venous Thrombosis Take 1 tablet (3 mg total) by mouth every evening 025 Discontinu ed(No longer taking - Do not display on AVS) Active Problems Problem Noted Date Diagnosed Date [...] therapy Assessment & Plan (12/21/2023 1:27 PM STATION INSTALLER AND REPAIRER): Continue risk factor modifications and continue annual [...] surveillance. Assessment & Plan (12/27/2022 8:50 AM STATION INSTALLER AND REPAIRER): Impression: Patient has a 3.3 cm infrarenal abdominal aortic aneurysm seen on a CT abdomen pelvis in September 2022. She remains asymptomatic. Plan: We will continue to monitor with an abdominal duplex in September. Chronic venous insufficiency 12/27/2022 Atherosclerosis of ambler ar teries of extremities with intermittent claudication, bilateral legs 12/27/2022 Assessment & Plan (06/20/2024 12:12 PM CDT): Patent fem-fem bypass graft per current duplex. Patient denies any claudication symptoms. Follow up in 6 months for routine surveillance with a fem-fem duplex continue aspirin Plavix and statin therapy. 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 Sheldon in 2014. Patient denies any worsening symptoms of claudication, ischemic rest pain or ulcerations to her lower extremity. Plan: Patient to follow-up with an arterial duplex during her postop venous duplex scans. History of DVT (deep vein thrombosis) 11/29/2022 Assessment & Plan (11/29/2022 10:06 AM STATION INSTALLER AND REPAIRER): Impression: Patient has a history of a [...] 05/19/2023. Assessment & Plan (12/27/2022 8:59 AM STATION INSTALLER AND REPAIRER): Impression: Patient continues to complain of pain [...] procedure. Assessment & Plan (11/29/2022 10:00 AM STATION INSTALLER AND REPAIRER): Impression: Patient complains of pain to left [...] needed. Assessment & Plan (12/27/2022 8:48 AM STATION INSTALLER AND REPAIRER): Impression: Patient has mild bilateral internal carotid arteries. She remains asymptomatic. Plan: Patient has mild carotid stenosis seen on duplex. No longer require surveillance. Follow up as needed. Encourage patient to notify the office or present to the ED if she experiences stroke-like symptoms. Patient voices understanding. Assessment & Plan (11/29/2022 10:30 AM STATION INSTALLER AND REPAIRER): Impression: Patient has a history of bilateral carotid artery stenosis being followed by her cryogenics repairer. Patient requesting the office to monitor. Patient [...] artery disease of n ative artery of ambler heart with stable angina pectoris 10/01/2015 Overview (02/17/2017): Coronary artery disease Preoperative state 02/20/2015 Overview (02/17/2017): Pre-operative cardiovascular examination Hypertension 02/20/2015 Overview (02/17/2017): Hypertension Assessment & Plan (06/21/2023 11:15 AM CDT): Stable continue lisinopril 10 mg. Assessment & Plan (12/27/2022 9:05 AM STATION INSTALLER AND REPAIRER): Impression: Chronic hypertension. Plan: Continue Coreg and lisinopril. Assessment & Plan (11/29/2022 10:32 AM STATION INSTALLER AND REPAIRER): Impression: Chronic hypertension, controlled with Coreg and [...] Encounters Date Type Department Care Team Description 04/17/2025 Telephone [facility] Cardiology [facility] [address] [place] [phone] Anne Marie Manuel NP 04/14/2025 10:00 AM CDT Office Visit [facility] Cardiology [facility] [address] [place] [phone] Anne Marie Manuel NP Pulmonary embolism, unspecified chronicity, unspecified pulmonary embolism type, unspecified whether acute cor pulmonale present (HCC); Stage 3a chronic kidney disease (HCC); 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 12th [address], [place] [phone] Kiara Reeder RN 02/27/2025 Telephone [facility] Cardiology [address] [place] [address] Sarabjit Velasco MD from Last 3 Months Immunizations Immunization Administration [...] retroperitoneal fibrosis, status post left nephrec; Comments: [facility] 02/20/2015 - Hx Other Medical glaucoma, JANNY, obesity, hypercholesterolemia, dent; Comments: [facility] 02/20/2015 - Hypertension HLD (hyperlipidemia) Sleep [...] on file Legal Sex Female 2:59 AM STATION INSTALLER AND REPAIRER Gender Identity Not on file Sexual Orientation Not on file Obstetrics History Last Filed Vital Signs Vital Sign Reading Time Taken Comments Blood Pressure 112/58 04/14/2025 10:48 AM CDT Pulse 95 04/14/2025 10:48 AM CDT Temperature 37.1 C (98.7 F) 06/28/2024 9:02 AM CDT Respiratory Rate 18 12/31/2024 1:20 PM STATION INSTALLER AND REPAIRER Oxygen Saturation 92% 04/14/2025 10:48 AM CDT Inhaled Oxygen Concentration - - Weight 70.3 kg (155 lb) 04/14/2025 10:48 AM CDT Height 157.5 cm (5' 2) 04/14/2025 10:48 AM CDT Body Mass Index 28.35 04/14/2025 10:48 AM CDT Plan of Treatment Upcoming Encounters Date Type Department Care Team (Late st Contact Info) Description 12/31/2024 11:59 PM STATION INSTALLER AND REPAIRER Anesthesia Event [facility] Operating Room [address] [place] [address] Haley Rodriguez, CLINT [address] [facility] [address] [place] [address] 07/31/2025 Hospital Encounter [facility] Operating Room [address] [place] [address] Jorge Manning MD [address] [place] [address] Scheduled Procedures Name Priority Associated [...] 10/30/2018, 08/08/2018 Medical Devices Implanted Type Area Gift Shop Clerk Device Identifier Shelf Expiration Date Model / Serial / Lot Graft Graft Femoral Description:2014 Stent Implanted:Qty: 1 Stent Coronary Artery Description:2014 Procedures Procedure Name Priority Date/Time Associated Diagnosis Comments CT VIRTUAL COLONOSCOPY DIAGNOSTIC W CONTRAST Routine 01/30/2017 2:38 PM CDT from Last 3 Months or Most Recently Relevant to Health Maintenance Results * CT Virtual Colonoscopy Diagnostic W Contrast (01/30/2017 2:38 PM CDT) Anatomical Region Laterality Modality Body N/A Computed Tomogra phy 01/30/2017 2:38 PM CDT Narrative 01/30/2017 2:38 PM CDT GRAZYNA SHAW M.D. PUNEET ALVAREZ M.D. FINAL REPORT The radiology attending physician has personally reviewed this study, and has reviewed and/or edited this written report and agrees with it. ACC# Date Time Exam [id number] Jan 30, 2017 09:38:[id number] Colonography Screen ACC# Date Time Exam [id number] Jan 30, 2017 09:38:[id number] Colonography Screen EXAMINATION: CT colonography without [...] SHAW M.D. on Jan 30 2017 5:45P [id number] Procedure Note Miscellaneous, Notinfile / Provider, MD Alicia - 04/04/2017 GRAZYNA SHAW M.D. PUNEET ALVAREZ M.D. FINAL REPORT The radiology attending physician has personally reviewed this study, and has reviewed and/or edited this written report and agrees with it. ACC# Date Time Exam [id number] Jan 30, 2017 09:38:[id number] Colonography Screen ACC# Date Time Exam [id number] Jan 30, 2017 09:38:[id number] Colonography Screen EXAMINATION: CT colonography without [...] SHAW M.D. on Jan 30 2017 5:45P [id number] us Not In File Miscellaneous IMG CT PROCEDURES Evelin l Result from Last 3 Months or Most Recently Relevant to Health Maintenance Additional Health Concerns Infection Onset Date Last Indicated MDR gram neg/ESBL 11/29/2023 11/29/[address] [facility] HEALTHCARE [facility] HEALTH[facility] Advance Directives For more information, please contact: [phone] * Full Code (Latest Code Status on File) Date Activated Date Inactivated Comments 11/28/2023 12:54 PM 12/01/2023 6:05 PM Care Teams Manager Customs Relationship Specialty Start Date End Date Ricardo Freeman DO [address] [id number] PCP - General Internal Medicine 06/19/24
--- OUTSIDE RECORDS SUMMARY | 2025-04-24 12:14 | XMS_ITS | Clinical Summary ---
Author Organization [facility] Address [address] [place] [phone] Phone Care Team Providers Care Block Cleaner Name Role Phone BobyCarlito alonso Primary Care Provider [phone] Allergies No known active allergies Medications lansoprazole [...] absence of kidney 02/18/2018 Coronary arteriosclerosis in [place]ata[place] artery 10/01 Overview (05/22/2019): Coronary artery disease [...] on file Legal Sex Female 9:30 AM [facility] Gender Identity Not on file Sexual Orientation [...] 10:23 AM CDT Height 157.5 cm (5' 2) 08/24/2022 10:23 AM CDT Body Mass Index 32.01 08/24/2022 10:23 AM CDT Plan of Treatment Health Maintenance Due Date Last Done Comments Pneumococcal PPSV23/PCV13 65 + Years / Low and Medium Risk (2 of 3 - PPSV23) 11/16/2017 11/16/2016 Influenza Vaccine (Season Ended) 2025 08/13/20 19 Insurance [employer] [facility] Address: [address] [address] Care Teams Block Cleaner Relationship Specialty Start Date End Date Carlito Guerrero DO [address] [facility] [address] [place] [phone] PCP - General Internal Medicine 05/22/19
--- OUTSIDE RECORDS SUMMARY | 2025-04-24 12:14 | XMS_ITS | Referral Summary ---
Author Organization [facility] Address [address] [place] [address] Care Team Providers Care Bag Checker Name Role Phone Ricardo Freeman DO Primary Care Provider [phone] Encounters Date Type Department Care Team Description 04/17/2025 Telephone [facility] Cardiology [address] [place] [phone] Anne Marie Manuel NP 04/14/2025 Telephone [facility] - [facility] Minimally Invasive Surgery [address] [place] [address] [facility] 12th Floor, [place] [address] Kiara Reeder RN 04/14/2025 10:00 AM CDT Office Visit [facility] Medical [facility] Cardiology [address] [place] [address] Anne Marie Manuel NP Pulmonary embolism, unspecified chronicity, unspecified pulmonary embolism type, unspecified whether acute cor pulmonale present (HCC); Stage 3a chronic kidney disease (HCC); Coronary artery disease of lone pine 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 (CMS/HCC); Ventricular premature beats; Hospital discharge follow-up 02/27/2025 Telephone [facility] Cardiology [address] [facility] [address] [place] [phone] Sarabjit Velasco MD from Last 3 Months Allergies No known active allergies Medications oxybutynin XL (DITROPAN XL) 15 mg 24 hr tablet take 1 tablet by oral route every day 0 0 01/20/20 16 Active levothyroxine (SYNTHROID) 88 mcg tabletIndications: hypothyroidism Take 1 tablet (88 mcg total) by mouth rf test engineer before breakfast Active albuterol HFA (PROVENTIL [...] 24 hr tabletIndications: Coronary artery disease of lone pine 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 Assessment & Plan (12/27/2022 8:50 AM GLAZING SUPERINTENDENT): Impression: Patient has a 3.3 cm infrarenal abdominal aortic aneurysm seen on a CT abdomen pelvis in September 2022. She remains asymptomatic. Plan: We will continue to monitor with an abdominal duplex in September. Chronic venous insufficiency 12/27/2022 Atherosclerosis of lone pine ar teries of extremities with intermittent claudication, bilateral legs 12/27/2022 Assessment & Plan (06/20/2024 12:12 PM CDT): Patent fem-fem bypass graft per current duplex. Patient denies any claudication symptoms. Follow up in 6 months for routine surveillance with a fem-fem duplex continue aspirin Plavix and statin therapy. 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 Sheldon in 2014. Patient denies any worsening symptoms of claudication, ischemic rest pain or ulcerations to her lower extremity. Plan: Patient to follow-up with an arterial duplex during her postop venous duplex scans. History of DVT (deep vein thrombosis) 11/29/2022 Assessment & Plan (11/29/2022 10:06 AM GLAZING SUPERINTENDENT): Impression: Patient has a history of a [...] 05/19/2023. Assessment & Plan (12/27/2022 8:59 AM GLAZING SUPERINTENDENT): Impression: Patient continues to complain of pain [...] procedure. Assessment & Plan (11/29/2022 10:00 AM GLAZING SUPERINTENDENT): Impression: Patient complains of pain to left [...] needed. Assessment & Plan (12/27/2022 8:48 AM GLAZING SUPERINTENDENT): Impression: Patient has mild bilateral internal carotid arteries. She remains asymptomatic. Plan: Patient has mild carotid stenosis seen on duplex. No longer require surveillance. Follow up as needed. Encourage patient to notify the office or present to the ED if she experiences stroke-like symptoms. Patient voices understanding. Assessment & Plan (11/29/2022 10:30 AM GLAZING SUPERINTENDENT): Impression: Patient has a history of bilateral carotid artery stenosis being followed by her precision aircraft systems assembler. Patient requesting the office to monitor. Patient [...] artery disease of n ative 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 10/01/2015 Overview (02/17/2017): Coronary artery disease Preoperative state 02/20/2015 Overview (02/17/2017): Pre-operative cardiovascular examination Hypertension 02/20/2015 Overview (02/17/2017): Hypertension Assessment & Plan (06/21/2023 11:15 AM CDT): Stable continue lisinopril 10 mg. Assessment & Plan (12/27/2022 9:05 AM GLAZING SUPERINTENDENT): Impression: Chronic hypertension. Plan: Continue Coreg and lisinopril. Assessment & Plan (11/29/2022 10:32 AM GLAZING SUPERINTENDENT): Impression: Chronic hypertension, controlled with Coreg and [...] on file Legal Sex Female 2:59 AM GLAZING SUPERINTENDENT Gender Identity Not on file Sexual Orientation Not on file Last Filed Vital Signs Vital Sign Reading Time Taken Comments Blood Pressure 112/58 04/14/2025 10:48 AM CDT Pulse 95 04/14/2025 10:48 AM CDT Temperature 37.1 C (98.7 F) 06/28/2024 9:02 AM CDT Respiratory Rate 18 12/31/2024 1:20 PM GLAZING SUPERINTENDENT Oxygen Saturation 92% 04/14/2025 10:48 AM CDT Inhaled Oxygen Concentration - - Weight 70.3 kg (155 lb) 04/14/2025 10:48 AM CDT Height 157.5 cm (5' 2) 04/14/2025 10:48 AM CDT Body Mass Index 28.35 04/14/2025 10:48 AM CDT Plan of Treatment Upcoming Encounters Date Type Department Care Team (Late st Contact Info) Description 12/31/2024 11:59 PM GLAZING SUPERINTENDENT Anesthesia Event [facility] Operating Room [address] [place] [phone] Haley Rodriguez, [place] [address] [address] 07/31/2025 Hospital Encounter [facility] Operating Room [address] [place] [address] Jorge Manning MD [address] [place] [address] Scheduled Procedures Name Priority Associated Diagnoses Date/Ti me XI REPAIR INCISIONAL HERNIA - LAPAROSCOPIC ROBOTIC ASSISTED Recurrent incisional hernia with incarceration XI ROBOTIC ABDOMINAL WALL RECONSTRUCTION Recurrent incisional hernia with incarceration Medical Devices Implanted Type Area Fire Operations Forester Device Identifier Shelf Expiration Date Model / [...] agrees with it. ACC# Date Time Exam [id number] Jan 30, 2017 09:38:[id number] Colonography Screen ACC# Date Time Exam [id number] Jan 30, 2017 09:38:[id number] Colonography Screen EXAMINATION: CT colonography without [...] SHAW M.D. on Jan 30 2017 5:45P [id number] Procedure Note Miscellaneous, Notinfile / Provider, MD Alicia - 04/04/2017 Aleksandar BOYER M.D. FINAL REPORT The radiology attending physician has personally reviewed this study, and has reviewed and/or edited this written report and agrees with it. ACC# Date Time Exam [id number] Jan 30, 2017 09:38:[id number] Colonography Screen ACC# Date Time Exam [id number] Jan 30, 2017 09:38:[id number] Colonography Screen EXAMINATION: CT colonography without [...] SHAW M.D. 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
== END 2025-04-24 11:10 | disposition home or self-care (01) ==
LOC: ANHIMG 11:13
PROVIDERS: PCP Nurse Practitioner; Visit Provider Nurse Practitioner
DX: N17.9 Acute kidney failure, unspecified (principal); N18.31 Chronic kidney disease, stage 3a; R33.8 Other retention of urine
CPT/HCPCS: 76775

== ENCOUNTER 2025-06-16 08:33 | Outpatient (CLI) | payer OTHER, SELFPAY ==
--- OUTSIDE RECORDS SUMMARY | 2025-06-16 08:39 | XMS_ITS | Clinical Summary ---
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 before breakfast Active albuterol HFA (PROVENTIL HFA,VENTOLIN [...] 24 hr tabletIndications: Coronary artery disease of [place] artery of [place] heart with stable angina pectoris Take 1 [...] 12 hr tabletIndications: Coronary artery disease of [place] artery of [place] heart with stable angina pectoris Take 1 [...] (two) times a day 04/11/20 25 Active Active Problems Problem Noted Date Diagnosed [...] therapy Assessment & Plan (12/21/2023 1:27 PM CHOIR ACCOMPANIST): Continue risk factor modifications and continue annual [...] surveillance. Assessment & Plan (12/27/2022 8:50 AM CHOIR ACCOMPANIST): Impression: Patient has a 3.3 cm infrarenal abdominal aortic aneurysm seen on a CT abdomen pelvis in September 2022. She remains asymptomatic. Plan: We will continue to monitor with an abdominal duplex in September. Chronic venous insufficiency 12/27/2022 Atherosclerosis of [place] ar teries of extremities with intermittent claudication, bilateral legs 12/27/2022 Assessment & Plan (06/20/2024 12:12 PM CDT): Patent fem-fem bypass graft per current duplex. Patient denies any claudication symptoms. Follow up in 6 months for routine surveillance with a fem-fem duplex continue aspirin Plavix and statin therapy. Assessment & Plan (12/21/2023 1:28 PM CHOIR ACCOMPANIST): Bilateral lower extremity arterial occlusive disease status [...] duplex Assessment & Plan (12/27/2022 9:00 AM CHOIR ACCOMPANIST): Impression: Patient has a history of iliac occlusion and underwent a fem-fem bypass graft by Dr. Sheldon in 2014. Patient denies any worsening symptoms of claudication, ischemic rest pain or ulcerations to her lower extremity. Plan: Patient to follow-up with an arterial duplex during her postop venous duplex scans. History of DVT (deep vein thrombosis) 11/29/2022 Assessment & Plan (11/29/2022 10:06 AM CHOIR ACCOMPANIST): Impression: Patient has a history of a [...] 05/19/2023. Assessment & Plan (12/27/2022 8:59 AM CHOIR ACCOMPANIST): Impression: Patient continues to complain of pain [...] procedure. Assessment & Plan (11/29/2022 10:00 AM CHOIR ACCOMPANIST): Impression: Patient complains of pain to left [...] needed. Assessment & Plan (12/27/2022 8:48 AM CHOIR ACCOMPANIST): Impression: Patient has mild bilateral internal carotid arteries. She remains asymptomatic. Plan: Patient has mild carotid stenosis seen on duplex. No longer require surveillance. Follow up as needed. Encourage patient to notify the office or present to the ED if she experiences stroke-like symptoms. Patient voices understanding. Assessment & Plan (11/29/2022 10:30 AM CHOIR ACCOMPANIST): Impression: Patient has a history of bilateral carotid artery stenosis being followed by her service center assistant. Patient requesting the office to monitor. Patient [...] artery disease of n ative artery of [place] heart with stable angina pectoris 10/01/2015 Overview (02/17/2017): Coronary artery disease Preoperative state 02/20/2015 Overview (02/17/2017): Pre-operative cardiovascular examination Hypertension 02/20/2015 Overview (02/17/2017): Hypertension Assessment & Plan (06/21/2023 11:15 AM CDT): Stable continue lisinopril 10 mg. Assessment & Plan (12/27/2022 9:05 AM CHOIR ACCOMPANIST): Impression: Chronic hypertension. Plan: Continue Coreg and lisinopril. Assessment & Plan (11/29/2022 10:32 AM CHOIR ACCOMPANIST): Impression: Chronic hypertension, controlled with Coreg and [...] Type Department Care Team Description 04/17/2025 Telephone [facility] Cardiology [address] [place] [address] Anne Marie Manuel NP 04/14/2025 10:00 AM CDT Office Visit [facility] Cardiology [address] [place] [address] Anne Marie Manuel NP Pulmonary embolism, unspecified chronicity, unspecified pulmonary embolism type, unspecified whether acute cor pulmonale present ([facility]); Stage 3a chronic kidney disease ([facility]); Coronary artery disease of [place] artery of [place] heart with stable angina pectoris ([facility]); Ventricular premature beats; Hospital discharge follow-up 04/14/2025 Telephone [facility] - [facility] Minimally Invasive Surgery [address] [facility] [address], [place] [address] Kiara Reeder RN from Last [...] retroperitoneal fibrosis, status post left nephrec; Comments: [facility] 02/20/2015 - Hx Other Medical glaucoma, JANNY, obesity, hypercholesterolemia, dent; Comments: [facility] 02/20/2015 - Hypertension HLD (hyperlipidemia) Sleep [...] on file Legal Sex Female 2:59 AM CHOIR ACCOMPANIST Gender Identity Not on file Sexual Orientation Not on file Obstetrics History Last Filed Vital Signs Vital Sign Reading Time Taken Comments Blood Pressure 112/58 04/14/2025 10:48 AM CDT Pulse 95 04/14/2025 10:48 AM CDT Temperature 37.1 C (98.7 F) 06/28/2024 9:02 AM CDT Respiratory Rate 18 12/31/2024 1:20 PM CHOIR ACCOMPANIST Oxygen Saturation 92% 04/14/2025 10:48 AM CDT Inhaled Oxygen Concentration - - Weight 70.3 kg (155 lb) 04/14/2025 10:48 AM CDT Height 157.5 cm (5' 2) 04/14/2025 10:48 AM CDT Body Mass Index 28.35 04/14/2025 10:48 AM CDT Plan of Treatment Upcoming Encounters Date Type Department Care Team (Late st Contact Info) Description 12/31/2024 11:59 PM CHOIR ACCOMPANIST Anesthesia Event [facility] Operating Room [address] [place] [address] Haley Rodriguez, FAMILY LAWYER [address] [facility] [address] [place] [address] 07/31/2025 Hospital Encounter [facility] Operating Room [address] [place] [address] Jorge Manning MD [address] [facility] [address] [place] [id number] Scheduled Procedures Name Priority Associated Diagnoses Date/Ti [...] Well Visit 65+ 2021 Influenza Vaccine (#1) 2025 0, 10/23/2019, 08/13/2019, Additional history exists Fall Risk Assessment 12/31/2025 12/31/2024, 08/21/20 Colon Cancer Screening-Colonoscopy 01/30/2027 01/30/2017 Colon Cancer Screening-CT Colonography Discontinued 01/30/2017 Colon Cancer Screening-DNA Stool Discontinued 01/31/20 Colon Cancer Screening-FIT Discontinued 01/30/2017 Colon Cancer Screening-Sigmoidoscopy Discontinued 01/30/2017 Zoster Vaccine Completed 10/30/2018, 08/08/2018 Medical Devices Implanted Type Area Road Manager Device Identifier Shelf Expiration Date Model / [...] agrees with it. ACC# Date Time Exam [id number] Jan 30, 2017 09:38:[id number] Colonography Screen ACC# Date Time Exam [id number] Jan 30, 2017 09:38:[id number] Colonography Screen EXAMINATION: CT colonography without [...] SHAW M.D. on Jan 30 2017 5:45P [id number] Procedure Note Miscellaneous, Notinfile / Provider, MD Alicia - 04/04/2017 GRAZYNA SHAW M.D. PUNEET ALVAREZ M.D. FINAL REPORT The radiology attending physician has personally reviewed this study, and has reviewed and/or edited this written report and agrees with it. ACC# Date Time Exam [id number] Jan 30, 2017 09:38:[id number] Colonography Screen ACC# Date Time Exam [id number] Jan 30, 2017 09:38:[id number] Colonography Screen EXAMINATION: CT colonography without [...] SHAW M.D. on Jan 30 2017 5:45P [id number] us Not In File Miscellaneous IMG CT PROCEDURES Evelin l Result from Last 3 Months or Most Recently Relevant to Health Maintenance Additional Health Concerns Infection Onset Date Last Indicated MDR gram neg/ESBL 11/29/2023 11/29/2023 Insurance HEALTHCARE HEALTHCARE HEALTHCARE Advance Directives For more information, please contact: [phone] * Full Code (Latest Code Status on File) Date Activated Date Inactivated Comments 11/28/2023 12:54 PM 12/01/2023 6:05 PM Care Teams Sports Journalist Relationship Specialty Start Date End Date Ricardo Freeman DO [address] [facility] [address] [place] [address] PCP - General Internal Medicine 06/19/24
--- OUTSIDE RECORDS SUMMARY | 2025-06-16 08:39 | XMS_ITS | Encounter Summary ---
Author Organization [facility] Healthcare Address [address] [place] [address] Care Team Providers Care Security Nurse Name Role Phone Carlito Guerrero MD Primary Care Provider [phone] Ricardo Freeman DO Primary Care Provider [phone] Encounter Details Date Type Department Care Team (Late Contact Info) Description 04/12/2018 Orders Only [facility] Information Management [address] [place] [address] Scanning, Provider Social History Tobacco Use Types Packs/Day Years Used Date Smoking Tobacco: Former Smokeless Tobacco: Never Alcohol Use Standard Drinks/Week Comments No 0 (1 standard drink = 0.6 oz pur e alcohol) Comments Unknown Sex and Gender Information Value Date Recorded Sex Assigned at Not on file Legal Sex Female 2:59 AM COMBINE INSPECTOR Gender Identity Not on file Sexual Orientation Not on file documented as of this encounter Plan of Treatment Upcoming Encounters Date Type Department Care Team (Late Contact Info) Description 12/31/2024 11:59 PM COMBINE INSPECTOR Anesthesia Event [facility] Operating Room [address] [place] [address] Haley Rodriguez, CLINT [id number] [place] [address] 07/31/2025 Hospital Encounter [facility] Operating Room [address] [place] [address] Jorge Manning MD [address] [place] [address] Scheduled Procedures Name Priority Associated Diagnoses Date/Ti me XI REPAIR INCISIONAL HERNIA - LAPAROSCOPIC ROBOTIC ASSISTED Recurrent incisional hernia with incarceration XI ROBOTIC ABDOMINAL WALL RECONSTRUCTION Recurrent incisional hernia with incarceration documented as of this encounter Procedures Procedure Name Priority Date/Time Associated Diagnosis Comments CARDIOLOGY DOCUMENT SCAN 04/12/2018 documented in this encounter Results * Cardiology Document Scan (04/12/2018) Anatomical Region Laterality Modality Other us Provider Scanning CV CARDIAC SERVICES PROCEDURES Final Result documented in this encounter Visit Diagnoses Not on filedocumented in this encounter Additional Health Concerns Infection Onset Date Last Indicated Resolved Time MDR gram neg/ESBL 11/29/2023 11/29/2023 documented as of this encounter Care Teams Security Nurse Relationship Specialty Start Date End Date Carlito Guerrero MD [address] [place] [address] PCP - General 03/07/17 06/18/24 Ricardo Freeman DO [address] [place] [address] PCP - General Internal Medicine 06/19/24 documented as of this encounter
--- OUTSIDE RECORDS SUMMARY | 2025-06-16 08:39 | XMS_ITS | Encounter Summary ---
Author Organization [facility] Healthcare Address [address] [place] [address] Care Team Providers Care Millwright Name Role Phone Ricardo Freeman DO Primary Care Provider [phone] Encounter Details Date Type Department Care Team ([facility] Contact Info) Description 01/27/2025 Orders Only [facility] [place] [address] [place] [address] Scanning, Provider Social History Tobacco Use Types [...] on file Legal Sex Female 2:59 AM SECURITY SYSTEMS MANAGER Gender Identity Not on file Sexual Orientation Not on file documented as of this encounter Plan of Treatment Upcoming Encounters Date Type Department Care Team ([facility] Contact Info) Description 12/31/2024 11:59 PM SECURITY SYSTEMS MANAGER Anesthesia Event [facility] Operating Room [address] [place] [address] Haley Rodriguez, CLINT [address] [facility] [address] [place] [address] 07/31/2025 Hospital Encounter [facility] Operating Room [address] [place] [address] Jorge Manning MD [address] [place], [place] [id number] Scheduled Procedures Name Priority Associated Diagnoses Date/Ti me XI REPAIR INCISIONAL HERNIA - LAPAROSCOPIC ROBOTIC ASSISTED Recurrent incisional hernia with incarceration XI ROBOTIC ABDOMINAL WALL RECONSTRUCTION Recurrent incisional hernia with incarceration documented as of this encounter Procedures Procedure Name Priority Date/Time Associated Diagnosis Comments SCAN - RADIOLOGY/IMAGING 01/27/2025 documented in this encounter Results * SCAN - RADIOLOGY/IMAGING (01/27/2025) Anatomical Region Laterality Modality Other us Provider Scanning Final Result documented in this encounter Visit Diagnoses Not on filedocumented in this encounter Additional Health Concerns Infection Onset Date Last Indicated Resolved Time MDR gram neg/ESBL 11/29/2023 11/29/2023 documented as of this encounter Care Teams Millwright Relationship Specialty Start Date End Date Ricardo Freeman DO [address] [facility] [address] [place], [place] [id number] PCP - General Internal Medicine 06/19/24 documented as of this encounter
--- OUTSIDE RECORDS SUMMARY | 2025-06-16 08:39 | XMS_ITS | Encounter Summary ---
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 Gender Identity Not on file Sexual Orientation Not on file documented as of this encounter Plan of Treatment Upcoming Encounters Date Type Department Care Team ([facility] Contact Info) Description 12/31/2024 11:59 PM CHRISTIAN MINISTRIES PROFESSOR Anesthesia Event [facility] Operating Room [address] [place] [address] Haley Rodriguez, CLINT [address] [facility] [address] [place] [address] 07/31/2025 Hospital Encounter [facility] Operating Room [address] [place] [address] Jorge Manning MD [address] [place], [place] [id number] Scheduled Procedures Name Priority Associated Diagnoses Date/Ti me XI REPAIR INCISIONAL HERNIA - LAPAROSCOPIC ROBOTIC ASSISTED Recurrent incisional hernia with incarceration XI ROBOTIC ABDOMINAL WALL RECONSTRUCTION Recurrent incisional hernia with incarceration documented as of this encounter Procedures Procedure Name Priority Date/Time Associated Diagnosis Comments CARDIOLOGY DOCUMENT SCAN 01/13/2025 documented in this encounter Results * Cardiology Document Scan (01/13/2025) Anatomical Region Laterality Modality Other us Provider Scanning CV CARDIAC SERVICES PROCEDURES Final Result documented in this encounter Visit Diagnoses Not on filedocumented in this encounter Additional Health Concerns Infection Onset Date Last Indicated Resolved Time MDR gram neg/ESBL 11/29/2023 11/29/2023 documented as of this encounter Care Teams Doughnut Icer Machine Relationship Specialty Start Date End Date Ricardo Freeman DO [address] [place], [place] [id number] PCP - General Internal Medicine 06/19/24 documented as of this encounter
--- OUTSIDE RECORDS SUMMARY | 2025-06-16 08:39 | XMS_ITS | Referral Summary ---
Author Organization [facility] al Address [address] [place] [address] Care Team Providers Care Animal Shelter Manager Name Role Phone Ricardo Freeman DO Primary Care Provider [phone] Encounters Date Type Department Care Team Description 04/17/2025 Telephone [facility] Medical Group Cardiology [address] [place] [phone] Anne Marie Manuel NP 04/14/2025 Telephone [facility] Advanced Medicine ([facility]) - [facility] Minimally Invasive Surgery [address] [place] [address] Advanced Medicine 12th Floor, [place] [address] Kiara Reeder RN 04/14/2025 10:00 AM CDT Office Visit [facility] Medical Group Cardiology [address] [place] [address] Anne Marie Manuel NP Pulmonary embolism, unspecified chronicity, unspecified pulmonary embolism type, unspecified whether acute cor pulmonale present (HCC); Stage 3a chronic kidney disease (HCC); 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 (CMS/HCC); Ventricular premature beats; Hospital discharge follow-up from Last 3 Months Allergies No known active allergies Medications oxybutynin XL (DITROPAN XL) 15 mg 24 hr tablet take 1 tablet by oral route every day 0 0 01/20/20 16 Active levothyroxine (SYNTHROID) 88 mcg tabletIndications: hypothyroidism Take 1 tablet (88 mcg total) by mouth orthopedic shoe maker before breakfast Active albuterol HFA (PROVENTIL HFA,VENTOLIN [...] 24 hr tabletIndications: 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 Assessment & Plan (12/27/2022 8:50 AM UNDERWEAR CUTTER): Impression: Patient has a 3.3 cm infrarenal abdominal aortic aneurysm seen on a CT abdomen pelvis in September 2022. She remains asymptomatic. Plan: We will continue to monitor with an abdominal duplex in September. Chronic venous insufficiency 12/27/2022 Atherosclerosis of teller ar teries of extremities with intermittent claudication, bilateral legs 12/27/2022 Assessment & Plan (06/20/2024 12:12 PM CDT): Patent fem-fem bypass graft per current duplex. Patient denies any claudication symptoms. Follow up in 6 months for routine surveillance with a fem-fem duplex continue aspirin Plavix and statin therapy. 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 Sheldon in 2014. Patient denies any worsening symptoms of claudication, ischemic rest pain or ulcerations to her lower extremity. Plan: Patient to follow-up with an arterial duplex during her postop venous duplex scans. History of DVT (deep vein thrombosis) 11/29/2022 Assessment & Plan (11/29/2022 10:06 AM UNDERWEAR CUTTER): Impression: Patient has a history of a [...] 05/19/2023. Assessment & Plan (12/27/2022 8:59 AM UNDERWEAR CUTTER): Impression: Patient continues to complain of pain [...] procedure. Assessment & Plan (11/29/2022 10:00 AM UNDERWEAR CUTTER): Impression: Patient complains of pain to left [...] needed. Assessment & Plan (12/27/2022 8:48 AM UNDERWEAR CUTTER): Impression: Patient has mild bilateral internal carotid arteries. She remains asymptomatic. Plan: Patient has mild carotid stenosis seen on duplex. No longer require surveillance. Follow up as needed. Encourage patient to notify the office or present to the ED if she experiences stroke-like symptoms. Patient voices understanding. Assessment & Plan (11/29/2022 10:30 AM UNDERWEAR CUTTER): Impression: Patient has a history of bilateral carotid artery stenosis being followed by her software installation engineer. Patient requesting the office to monitor. Patient [...] artery disease of n ative artery of teller heart with stable angina pectoris 10/01/2015 Overview (02/17/2017): Coronary artery disease Preoperative state 02/20/2015 Overview (02/17/2017): Pre-operative cardiovascular examination Hypertension 02/20/2015 Overview (02/17/2017): Hypertension Assessment & Plan (06/21/2023 11:15 AM CDT): Stable continue lisinopril 10 mg. Assessment & Plan (12/27/2022 9:05 AM UNDERWEAR CUTTER): Impression: Chronic hypertension. Plan: Continue Coreg and lisinopril. Assessment & Plan (11/29/2022 10:32 AM UNDERWEAR CUTTER): Impression: Chronic hypertension, controlled with Coreg and [...] on file Legal Sex Female 2:59 AM UNDERWEAR CUTTER Gender Identity Not on file Sexual Orientation Not on file Last Filed Vital Signs Vital Sign Reading Time Taken Comments Blood Pressure 112/58 04/14/2025 10:48 AM CDT Pulse 95 04/14/2025 10:48 AM CDT Temperature 37.1 C (98.7 F) 06/28/2024 9:02 AM CDT Respiratory Rate 18 12/31/2024 1:20 PM UNDERWEAR CUTTER Oxygen Saturation 92% 04/14/2025 10:48 AM CDT Inhaled Oxygen Concentration - - Weight 70.3 kg (155 lb) 04/14/2025 10:48 AM CDT Height 157.5 cm (5' 2) 04/14/2025 10:48 AM CDT Body Mass Index 28.35 04/14/2025 10:48 AM CDT Plan of Treatment Upcoming Encounters Date Type Department Care Team (Late st Contact Info) Description 12/31/2024 11:59 PM UNDERWEAR CUTTER Anesthesia Event [facility] Operating Room 1 [place] [address] Haley Rodriguez, CLINT [address] [facility] [address] [place] [address] 07/31/2025 Hospital Encounter [facility] Operating Room 1 [place] [address] Jorge Manning MD [address] [place] [address] Scheduled Procedures Name Priority Associated Diagnoses Date/Ti me XI REPAIR INCISIONAL HERNIA - LAPAROSCOPIC ROBOTIC ASSISTED Recurrent incisional hernia with incarceration XI ROBOTIC ABDOMINAL WALL RECONSTRUCTION Recurrent incisional hernia with incarceration Medical Devices Implanted Type Area Glove Parts Inspector Device Identifier Shelf Expiration Date Model / [...] agrees with it. ACC# Date Time Exam [id number] Jan 30, 2017 09:38:[id number] Colonography Screen ACC# Date Time Exam [id number] Jan 30, 2017 09:38:[address] Colonography Screen EXAMINATION: CT colonography without [...] SHAW M.D. on Jan 30 2017 5:45P [id number] Procedure Note Miscellaneous, Notinfile / Provider, MD Alicia - 04/04/2017 Aleksandar BOYER M.D. FINAL REPORT The radiology attending physician has personally reviewed this study, and has reviewed and/or edited this written report and agrees with it. ACC# Date Time Exam [id number] Jan 30, 2017 09:38:[id number] Colonography Screen ACC# Date Time Exam [id number] Jan 30, 2017 09:38:[id number] Colonography Screen EXAMINATION: CT colonography without [...] SHAW M.D. on Jan 30 2017 5:45P [id number] us Not In File Miscellaneous IMG CT PROCEDURES Evelin l Result from Last 3 Months or Most Recently Relevant to Health Maintenance Additional Health Concerns Infection Onset Date Last Indicated MDR gram neg/ESBL 11/29/2023 11/29/2023 Insurance HEALTHCARE HEALTHCARE Advance Directives For more information, please contact: [phone] * Full Code (Latest Code Status on File) Date Activated Date Inactivated Comments 11/28/2023 12:54 PM 12/01/2023 6:05 PM Care Teams Animal Shelter Manager Relationship Specialty Start Date End Date Ricardo Freeman DO [address] [facility] [address] [place] [address] PCP - General Internal Medicine 06/19/24
--- OUTSIDE RECORDS SUMMARY | 2025-06-16 08:39 | XMS_ITS | Clinical Summary ---
Author Organization [facility] Address [address] [place] [address] Care Team Providers Care Pile Header Name Role Phone Carlito Guerrero MD Primary Care Provider [phone] Sarabjit Velasco MD Unavailable [phone] Allergies No known active allergies Medications No [...] 2:11 PM CDT Height 157.5 cm (5' 2) 05/11/2022 2:11 PM CDT Body Mass Index [...] complete this topic Insurance [employer] Care Teams Pile Header Relationship Specialty Start Date End Date Carlito Guerrero MD [address] [place], [place] [id number] PCP - General INTERNAL MEDICINE 05/11/22 Sarabjit Velasco MD [address] [place] [address] CARDIOVASCULAR DISEASE 05/11/22
--- OUTSIDE RECORDS SUMMARY | 2025-06-16 08:39 | XMS_ITS | Clinical Summary ---
Author Organization [facility] Address [address] [place] [address] Phone Care Team Providers Care Procurement Buyer Name Role Phone BobyCarlito alonso Primary Care Provider [phone] Allergies No known active allergies Medications lansoprazole [...] absence of kidney 02/18/2018 Coronary arteriosclerosis in [place] artery 10/01 Overview (05/22/2019): Coronary artery disease [...] on file Legal Sex Female 9:30 AM [facility] Gender Identity Not on file Sexual [...] and Medium Risk (2 of 3 - PCV20 or PCV21) 11/16/2017 11/16/2016 Influenza Vaccine (#1) 2025 08/13/2019 Insurance [employer]ENCE MEDICARE [facility] Address: [address] [address] Care Teams Procurement Buyer Relationship Specialty Start Date End Date Carlito Guerrero DO [address] [phone] PCP - General Internal Medicine 05/22/19
== END 2025-06-16 08:34 | disposition home or self-care (01) ==
LOC: ANHSURGERY 08:38
PROVIDERS: PCP Nurse Practitioner; Visit Provider Urology
DX: N30.10 Interstitial cystitis (chronic) without hematuria (principal); D50.9 Iron deficiency anemia, unspecified; D64.9 Anemia, unspecified; N18.31 Chronic kidney disease, stage 3a
CPT/HCPCS: 36415; 87086

== ENCOUNTER 2025-06-20 01:36 | Day surgery (SDC) | payer OTHER, SELFPAY ==
[2025-06-11 15:08] VITALS: BMI 27.3
--- NOTE | 2025-06-11 15:23 | PC.NURSE ---
Report to the Outpatient Waiting Room, entrance under the green pavilion located off [facility], at time __0615am on date _06/20/25 . Planned Procedure Time: _08:15am .? Time changes happen often and if your time is changed the preop area will call you the afternoon before. - You and your visitor will be asked to self-screen and do not enter if you have any COVID symptoms. Please call surgeon if you need to reschedule. - A mask is optional within the hospital at this time. Patients may have clear liquids (water, carbonated beverages, clear teas, apple juice) until 3 hours prior to surgery with a maximum of 20 ounces. - No food from midnight until time of surgery and no smoking, or chewing tobacco (or any form of nicotine). No chewing gum, candy or mints. (05:15am) Take only the following medications with a SIP of water on the morning of surgery: __Felodipine, Coreg, Amoxicillan, Ranexa, Isosorbide, Methenamine, Leevothyroxine, Stiolito Inhaler, Albuteral inhaler if needed, Tylenol if needed DO NOT STOP ANY OF YOUR OTHER PRESCRIPTION MEDICATIONS PRIOR TO SURGERY EXCEPT THE FOLLOWING Hold all vitamins and supplements for 3 days per anesthesiologist. Medications to discontinue per physician HOLD Plavix for [address] Juarez _( pt states this is what they told her) Date to take last dose___06/14/25 Please no make-up, nail italian, hairspray, perfume, deodorant, or body powder the day of surgery.? No jewelry (including any body piercings) or valuables the day of surgery, leave them at home.? Please take a shower or bath the night before, or the morning of, surgery with an antibacterial soap.? Wear comfortable, loose fitting clothing.? - Jewelry must be removed prior to entering the operating room.? Rings and piercings that are not removed may be cut off. - The hospital will not accept responsibility for valuables.? - Please leave all valuables, including medications, at home the day of surgery. If you are going home after surgery, a licensed goat driver must drive you home.? - NO public transportation without another adult if you receive anesthesia. - We recommend that an adult stay with you for 24 hours following discharge. - We also recommend that you do not drive, make important decision, drink alcoholic beverages, or take any drugs that were not prescribed by your health care provider for at least 24 hours after your discharge time. Follow any additional instructions given to you from your surgeon. Telephone instructions given to __Patient and asked if any additional questions and then verbalized understanding. Patient advised to call surgeon office or pre surgery nurse liaison [phone] if any additional questions.
--- NOTE | 2025-06-15 08:47 | PM.IMHP ---
H&P: HPI History of Present Illness Date/Time: 06/15/25 08:47 Chief Complaint: Hunner ulcer Narrative: Need for repeat steroid injection Review of Systems Review of Systems: All systems reviewed & are unremarkable except as noted in HPI and below [facility] Past Medical History Medical History BMI 31.0-31.9,adult Hunner's ulcer Coronary artery disease Chronic obstructive pulmonary disease Chronic kidney disease, stage 3 Abdominal aortic aneurysm mild dilatation of the distal aorta measuring 3.[address] scan in November 2024 Hypercholesterolemia Deep venous thrombosis (2014) Chronic anticoagulation Paroxysmal atrial fibrillation Essential hypertension Gastro-esophageal reflux disease without esophagitis Pulmonary embolism (2014) 2014 and January 2025 History of tobacco abuse Anxiety Gout Osteoporosis Arthritis Cancer of left kidney status post left nephrectomy Ventral hernia Hemorrhoids Sleep apnea does not use CPAP Migraine Glaucoma Hypothyroidism Peripheral vascular disease, unspecified Surgical History Surgical History History of right breast biopsy History of open reduction and internal fixation (ORIF) procedure repair of bilateral wrist and left foot fractures History of cystoscopy History of hernia repair History of vascular surgery bifemoral bypass left femoral and popliteal stents History of ventral hernia repair History of right shoulder replacement History of cholecystectomy History of appendectomy History of left nephrectomy History of splenectomy retroperitoneal fibrosis History of tubal ligation History of cataract extraction History of coronary artery stent placement (2014) Hx of foot surgery History of hysterectomy Family History Family History Mother Family history of Alzheimer's disease, Onset Age: 82 Sibling Family history of diabetes mellitus in first degree relative Diabetes mellitus Family history of congenital heart disease Father Family history of emphysema Family history of congenital heart disease Other Hypertension Social History Social History Social History: The patient reports he lives in her own home. One of her sons lives with her. Her granddaughter Cordelia helps her significantly. She is a former smoker she smoked 0.5 packs of cigarettes per day from the time she was a teenager until age 59. She denies any history of alcohol use or illicit substance use. She ambulates with a Rollator. Code status: Full code. Healthcare power of criminal defense attorney: Cordelia Christianson (granddaughter) Smoking packs per day: 0.5 Smoking cigarettes per day: 10.0 Years smoked: 40 Smoking pack-years: 20.00 Smoking status: Former smoker Tobacco type: cigarettes Second hand tobacco smoke exposure: No Smoking end date: 11/13/13 Additional smoking assessment comments: quit 2013 Alcohol intake: never Substance use: never Substance use type: does not use Do You Feel Safe in your Home?: Yes Lack of Transportation: No Lack of Food: Never True Current Housing: I Have Housing Concerned About Future Housing: No Difficulty Paying Gas/Electric Bills: No Difficulty Paying for Meds: No Currently Unemployed: No Education: High School Diploma/GED Difficulty w/ Childcare or Family Care: No Living arrangements: with family Additional living arrangements comments: SON Occupation/Education: retired Additional occupation/education comments: [employer] Gender identity (if verbalized by the patient): Female Spiritual care concerns: No Meds Home Medications and Allergies Home Medications ?Medication ?Instructions ?Recorded ?Confirmed ?Type clopidogrel 75 mg tablet (Plavix) 75 mg PO QAM 12/02/19 06/11/25 History nitroglycerin 0.4 mg sublingual 0.4 mg sublingual Q5M PRN Chest 12/02/19 06/11/25 History tablet Pain oxybutynin chloride 15 mg 15 mg PO DAILY 12/02/19 06/11/25 History tablet,extended release 24 hr ranolazine 500 mg tablet,extended 500 mg PO BID 03/24/21 06/11/25 History release,12 hr rosuvastatin 40 mg tablet 40 mg PO DAILY 05/09/23 06/11/25 History methenamine hippurate 1 gram tablet 1 g PO BID 02/06/24 06/11/25 History felodipine 10 mg tablet,extended 10 mg PO QAM #90 tabs 04/16/24 06/11/25 Rx release 24 hr folic acid 1 mg tablet 1 mg PO DAILY #90 tabs 05/22/24 06/11/25 Rx levothyroxine 88 mcg tablet 88 mcg PO QAM #90 tabs 05/22/24 06/11/25 Rx albuterol sulfate 90 mcg/actuation 1 - 2 inh inhalation Q4-6H PRN 06/07/24 06/11/25 Rx aerosol inhaler shortness of breath or wheezing #8.5 grams isosorbide mononitrate 30 mg 30 mg PO DAILY 11/25/24 06/11/25 History tablet,extended release 24 hr carvedilol 25 mg tablet 25 mg PO Q12H #180 tabs 12/19/24 06/11/25 Rx ipratropium 0.5 mg-albuterol 3 mg 3 ml inhalation Q6HRT #90 vials 01/28/25 06/11/25 Rx (2.5 mg base)/3 mL nebulization soln acetaminophen 500 mg tablet 500 mg PO Q6H PRN fever or pain 02/11/25 06/11/25 History calcium carbonate (Antacid 200 mg PO QID PRN dyspepsia 02/11/25 06/11/25 History (calcium carbonate)) pantoprazole 40 mg tablet,delayed 40 mg PO BID 30 days #60 tabs 02/25/25 06/11/25 Rx release amoxicillin 250 mg-potassium 1 tablet PO BID #14 tabs 04/11/25 06/11/25 Rx clavulanate 125 mg tablet Stiolto Respimat 2.5 mcg-2.5 See Rx Instructions .Route 04/30/25 06/11/25 Rx mcg/actuation solution for .COMPLEX #4 grams inhalation (tiotropium-olodaterol) Allergies Allergy/AdvReac Type Severity Reaction Status Date / Time No Known Allergies Allergy Verified 06/11/25 14:59 Exam Narrative: NAD A+O x3 Assessment and Plan Assessment and plan (1) Hunner's ulcer: Code(s): N30.10 - Interstitial cystitis (chronic) without hematuria Status: Acute Assessment and Plan: cystoscopy/biopsy/steroid injection
--- OUTSIDE RECORDS SUMMARY | 2025-06-20 01:40 | XMS_ITS | Encounter Summary ---
Author Organization [facility] Healthcare Address [address] [place] [address] Care Team Providers Care Certified Green Building Engineer Name Role Phone Ricardo Freeman DO Primary Care Provider [phone] Encounter Details Date Type Department Care Team ([facility] Contact Info) Description 01/22/[address] [facility] Health Information Management [address] [place] [address] Scanning, Provider Social History Tobacco Use Types [...] on file Legal Sex Female 2:59 AM HEEL GOUGER Gender Identity Not on file Sexual Orientation Not on file documented as of this encounter Plan of Treatment Upcoming Encounters Date Type Department Care Team ([facility] Contact Info) Description 12/31/2024 11:59 PM HEEL GOUGER Anesthesia Event [facility] Operating Room 1 [place] [address] Haley Rodriguez, CLINT [address] [facility] [address] [place] [address] 07/31/2025 Hospital Encounter [facility] Operating Room 1 [place] [address] Jorge Manning MD [address] [place], [place] [id number] Scheduled Procedures Name Priority Associated Diagnoses Date/Ti me XI REPAIR INCISIONAL HERNIA - LAPAROSCOPIC ROBOTIC ASSISTED Recurrent incisional hernia with incarceration XI ROBOTIC ABDOMINAL WALL RECONSTRUCTION Recurrent incisional hernia with incarceration documented as of this encounter Procedures Procedure Name Priority Date/Time Associated Diagnosis Comments SCAN - RADIOLOGY/IMAGING 01/22/2025 documented in this encounter Results * SCAN - RADIOLOGY/IMAGING (01/22/2025) Anatomical Region Laterality Modality Other us Provider Scanning Final Result documented in this encounter Visit Diagnoses Not on filedocumented in this encounter Additional Health Concerns Infection Onset Date Last Indicated Resolved Time 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
--- OUTSIDE RECORDS SUMMARY | 2025-06-20 01:40 | XMS_ITS | Clinical Summary ---
Author Organization [facility] Address [address] [place] [address] Care Team Providers Care Technical Maintenance Specialist Name Role Phone Ricardo Freeman DO Primary Care Provider [phone] Allergies No known active allergies Medications oxybutynin XL (DITROPAN XL) 15 mg 24 hr tablet take 1 tablet by oral route every day 0 0 01/20/20 16 Active levothyroxine (SYNTHROID) 88 mcg tabletIndications: hypothyroidism Take 1 tablet (88 mcg total) by mouth long filler cigar roller machine before breakfast Active albuterol HFA (PROVENTIL HFA,VENTOLIN [...] 24 hr tabletIndications: Coronary artery disease of [place]at artery of [place]akutat heart with stable angina pectoris Take 1 [...] 12 hr tabletIndications: Coronary artery disease of [place] artery of [place]utat heart with stable angina pectoris Take 1 [...] therapy Assessment & Plan (12/21/2023 1:27 PM HAND TOOL LAPPER): Continue risk factor modifications and continue annual [...] surveillance. Assessment & Plan (12/27/2022 8:50 AM HAND TOOL LAPPER): Impression: Patient has a 3.3 cm infrarenal abdominal aortic aneurysm seen on a CT abdomen pelvis in September 2022. She remains asymptomatic. Plan: We will continue to monitor with an abdominal duplex in September. Chronic venous insufficiency 12/27/2022 Atherosclerosis of [place] ar teries of extremities with intermittent claudication, bilateral legs 12/27/2022 Assessment & Plan (06/20/2024 12:12 PM CDT): Patent fem-fem bypass graft per current duplex. Patient denies any claudication symptoms. Follow up in 6 months for routine surveillance with a fem-fem duplex continue aspirin Plavix and statin therapy. 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 Sheldon in 2014. Patient denies any worsening symptoms of claudication, ischemic rest pain or ulcerations to her lower extremity. Plan: Patient to follow-up with an arterial duplex during her postop venous duplex scans. History of DVT (deep vein thrombosis) 11/29/2022 Assessment & Plan (11/29/2022 10:06 AM HAND TOOL LAPPER): Impression: Patient has a history of a [...] 05/19/2023. Assessment & Plan (12/27/2022 8:59 AM HAND TOOL LAPPER): Impression: Patient continues to complain of pain [...] procedure. Assessment & Plan (11/29/2022 10:00 AM HAND TOOL LAPPER): Impression: Patient complains of pain to left [...] needed. Assessment & Plan (12/27/2022 8:48 AM HAND TOOL LAPPER): Impression: Patient has mild bilateral internal carotid arteries. She remains asymptomatic. Plan: Patient has mild carotid stenosis seen on duplex. No longer require surveillance. Follow up as needed. Encourage patient to notify the office or present to the ED if she experiences stroke-like symptoms. Patient voices understanding. Assessment & Plan (11/29/2022 10:30 AM HAND TOOL LAPPER): Impression: Patient has a history of bilateral carotid artery stenosis being followed by her postdoctoral research fellow. Patient requesting the office to monitor. Patient [...] artery disease of n ative artery of yakutat heart with stable angina pectoris 10/01/2015 Overview (02/17/2017): Coronary artery disease Preoperative state 02/20/2015 Overview (02/17/2017): Pre-operative cardiovascular examination Hypertension 02/20/2015 Overview (02/17/2017): Hypertension Assessment & Plan (06/21/2023 11:15 AM CDT): Stable continue lisinopril 10 mg. Assessment & Plan (12/27/2022 9:05 AM HAND TOOL LAPPER): Impression: Chronic hypertension. Plan: Continue Coreg and lisinopril. Assessment & Plan (11/29/2022 10:32 AM HAND TOOL LAPPER): Impression: Chronic hypertension, controlled with Coreg and [...] Type Department Care Team Description 04/17/2025 Telephone [facility] Cardiology [address] [place] [address] Anne Marie Manuel NP 04/14/2025 10:00 AM CDT Office Visit [facility] Cardiology [address] [place] [address] Anne Marie Manuel NP Pulmonary embolism, unspecified chronicity, unspecified pulmonary embolism type, unspecified whether acute cor pulmonale present ([facility]); Stage 3a chronic kidney disease ([facility]); Coronary artery disease of yakutat artery of yakutat heart with stable angina pectoris ([facility]); Ventricular premature beats; Hospital discharge follow-up 04/14/2025 Telephone [facility] ([facility]) - [facility] Minimally Invasive Surgery [address] [facility] 12th Floor, [place] [address] Kiara Reeder RN from Last [...] retroperitoneal fibrosis, status post left nephrec; Comments: [facility] 02/20/2015 - Hx Other Medical glaucoma, JANNY, obesity, hypercholesterolemia, dent; Comments: [facility] 02/20/2015 - Hypertension HLD (hyperlipidemia) Sleep apnea [...] on file Legal Sex Female 2:59 AM HAND TOOL LAPPER Gender Identity Not on file Sexual Orientation Not on file Obstetrics History Last Filed Vital Signs Vital Sign Reading Time Taken Comments Blood Pressure 112/58 04/14/2025 10:48 AM CDT Pulse 95 04/14/2025 10:48 AM CDT Temperature 37.1 C (98.7 F) 06/28/2024 9:02 AM CDT Respiratory Rate 18 12/31/2024 1:20 PM HAND TOOL LAPPER Oxygen Saturation 92% 04/14/2025 10:48 AM CDT Inhaled Oxygen Concentration - - Weight 70.3 kg (155 lb) 04/14/2025 10:48 AM CDT Height 157.5 cm (5' 2) 04/14/2025 10:48 AM CDT Body Mass Index 28.35 04/14/2025 10:48 AM CDT Plan of Treatment Upcoming Encounters Date Type Department Care Team (Late st Contact Info) Description 12/31/2024 11:59 PM HAND TOOL LAPPER Anesthesia Event [facility] Operating Room 1 [place] [address] Haley Rodriguez, PHYSICIST CRYOGENICS [address] [facility] [address] [place] [address] 07/31/2025 Hospital Encounter [facility] Operating Room [address] [place] [address] Jorge Manning MD [address] [facility] [address] [place] [id number] Scheduled Procedures Name Priority Associated Diagnoses Date/Ti [...] 10/30/2018, 08/08/2018 Medical Devices Implanted Type Area American History Professor Device Identifier Shelf Expiration Date Model / [...] agrees with it. ACC# Date Time Exam [id number] Jan 30, 2017 09:38:[id number] Colonography Screen ACC# Date Time Exam [id number] Jan 30, 2017 09:38:[address] Colonography Screen EXAMINATION: CT colonography without [...] SHAW M.D. on Jan 30 2017 5:45P [id number] Procedure Note Miscellaneous, Notinfile / Provider, MD Alicia - 04/04/2017 GRAZYNA SHAW M.D. PUNEET ALVAREZ M.D. FINAL REPORT The radiology attending physician has personally reviewed this study, and has reviewed and/or edited this written report and agrees with it. ACC# Date Time Exam [id number] Jan 30, 2017 09:38:[id number] Colonography Screen ACC# Date Time Exam [id number] Jan 30, 2017 09:38:[id number] Colonography Screen EXAMINATION: CT colonography without [...] SHAW M.D. 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
--- OUTSIDE RECORDS SUMMARY | 2025-06-20 01:41 | XMS_ITS | Clinical Summary ---
Author Organization [facility] Address [address] [place] [address] Care Team Providers Care Countersinker Balance Screw Hole Name Role Phone Carlito Guerrero MD Primary Care Provider [phone] Sarabjit Velasco MD Unavailable [phone] Allergies No known active allergies Medications No [...] complete this topic Insurance [employer] Care Teams Countersinker Balance Screw Hole Relationship Specialty Start Date End Date Carlito Guerrero MD [address] [place], [place] [phone] PCP - General INTERNAL MEDICINE 05/11/22 Sarabjit Velasco MD [address] [place] [address] CARDIOVASCULAR DISEASE 05/11/22
--- OUTSIDE RECORDS SUMMARY | 2025-06-20 01:41 | XMS_ITS | Encounter Summary ---
Author Organization [facility] Healthcare Address [address] [place] [address] Care Team Providers Care Janitor Cleaner Name Role Phone Ricardo Freeman DO Primary Care Provider [phone] Encounter Details Date Type Department Care Team ([facility] Contact Info) Description 01/13/2025 Orders Only [facility] Health Information Management [address] [place] [address] Scanning, Provider Social History Tobacco Use Types [...] on file Legal Sex Female 2:59 AM RELIGIOUS EDUCATION TEACHER Gender Identity Not on file Sexual Orientation Not on file documented as of this encounter Plan of Treatment Upcoming Encounters Date Type Department Care Team ([facility] Contact Info) Description 12/31/2024 11:59 PM RELIGIOUS EDUCATION TEACHER Anesthesia Event [facility] Operating Room 1 [place] [address] Haley Rodriguez, CLINT [address] [facility] [address] [place] [address] 07/31/2025 Hospital Encounter [facility] Operating Room [address] [place] [address] Jorge Manning MD [address] [place], [place] [phone] Scheduled Procedures Name Priority Associated Diagnoses Date/Ti [...] documented as of this encounter Care Teams Janitor Cleaner Relationship Specialty Start Date End Date Ricardo Freeman DO [address] [place], [place] [phone] PCP - General Internal Medicine 06/19/24 documented as of this encounter
--- OUTSIDE RECORDS SUMMARY | 2025-06-20 01:41 | XMS_ITS | Encounter Summary ---
Author Organization [facility] Healthcare Address [address] [place] [address] Care Team Providers Care Beveller Operator Name Role Phone Carlito Guerrero MD Primary Care Provider [phone] Ricardo Freeman DO Primary Care Provider [phone] Encounter Details Date Type Department Care Team (Late Contact Info) Description 04/12/2018 Orders Only [facility] Health Information Management [address] [place] [address] Scanning, Provider Social History Tobacco Use Types Packs/Day Years Used Date Smoking Tobacco: Former Smokeless Tobacco: Never Alcohol Use Standard Drinks/Week Comments No 0 (1 standard drink = 0.6 oz pur e alcohol) Comments Unknown Sex and Gender Information Value Date Recorded Sex Assigned at Not on file Legal Sex Female 2:59 AM TRAILER BODY ASSEMBLER Gender Identity Not on file Sexual Orientation Not on file documented as of this encounter Plan of Treatment Upcoming Encounters Date Type Department Care Team ([facility] Contact Info) Description 12/31/2024 11:59 PM TRAILER BODY ASSEMBLER Anesthesia Event [facility] Operating Room [address] [place] [address] Haley Rdoriguez, CLINT [id number] [place] [address] 07/31/2025 Hospital Encounter [facility] Operating Room 1 [place] [address] Jorge Manning MD [address] [place] [address] Scheduled Procedures Name Priority Associated Diagnoses Date/Ti [...] documented as of this encounter Care Teams Beveller Operator Relationship Specialty Start Date End Date Carlito Guerrero MD [address] [place] [address] PCP - General 03/07/17 06/18/24 Ricardo Freeman DO [address] [place] [address] PCP - General Internal Medicine 06/19/24 documented as of this encounter
--- OUTSIDE RECORDS SUMMARY | 2025-06-20 01:41 | XMS_ITS | Encounter Summary ---
Author Organization [facility] Healthcare Address [address] [place] [address] Care Team Providers Care Software Administrator Name Role Phone Ricardo Freeman DO Primary Care Provider Encounter Details Date Type Department Care Team ([facility] Contact Info) Description 01/27/2025 Orders Only [facility] [place] Information Management [address] [place] [id number] Scanning, Provider Social History Tobacco Use Types [...] on file Legal Sex Female 2:59 AM METER READER Gender Identity Not on file Sexual Orientation Not on file documented as of this encounter Plan of Treatment Upcoming Encounters Date Type Department Care Team ([facility] Contact Info) Description 12/31/2024 11:59 PM METER READER Anesthesia Event [facility] Operating Room [address] [place] [address] Haley Rodriguez, CLINT [address] [facility] [address] [place] [address] 07/31/2025 Hospital Encounter [facility] Operating Room [address] [place] [address] Jorge Manning MD [address] [place], [place] [id number] Scheduled Procedures Name Priority Associated Diagnoses Date/Ti [...] documented as of this encounter Care Teams Software Administrator Relationship Specialty Start Date End Date Ricardo Freeman DO [address] [facility] [address] [place], [place] [phone] PCP - General Internal Medicine 06/19/24 documented as of this encounter
--- OUTSIDE RECORDS SUMMARY | 2025-06-20 01:41 | XMS_ITS | Clinical Summary ---
Author Organization [facility] Address [address] [place] [phone] Phone Care Team Providers Care Door Repairer Bus Name Role Phone BobyCarlito alonso Primary Care Provider [phone] Allergies No known active allergies Medications lansoprazole [...] absence of kidney 02/18/2018 Coronary arteriosclerosis in [place] artery 10/01 Overview (05/22/2019): Coronary artery disease [...] on file Legal Sex Female 9:30 AM [facility] Gender Identity Not on file Sexual Orientation [...] (#1) 2025 08/13/2019 Insurance [employer] [facility] Address: [address] [address] Care Teams Door Repairer Bus Relationship Specialty Start Date End Date Carlito Guerrero DO [address] [id number] PCP - General Internal Medicine 05/22/19
[2025-06-20] MEDS: LACTATED RINGERS 1,000 ML 30 ML IV CONT (06:45)
[2025-06-20 07:00] VITALS: BP 126/59; PULSE 81; RESP 16; TEMP 37.8; O2SAT 98
--- NOTE | 2025-06-20 07:15 | WPDHPUPDATE1 ---
History and Physical Update Update Date/Time: 06/20/25 07:15 History and Physical has been reviewed, including an updated exam of the patient. There are NO changes in the patient's condition. Risks, benefits, and alternatives have been discussed and questions answered. Patient agrees to proceed with procedure.
--- NOTE | 2025-06-20 07:16 | P.PNAN_ITS ---
Anes - Initial Pre Proc Eval Procedure: Operation Date: 06/20/25 08:15 Proposed Procedures p Cystoscopy, Bladder Biopsy with Steroid Injection - Lazaro Juarez MD Date/Time: 06/20/25 07:16 Surgeon: Lazaro Juarez MD Pre Op Diagnosis: hunners ulcer Patient Data Age: 69 Gender: F Height: 1.6 m Weight: 70 kg Allergies Allergy/AdvReac Type Severity Reaction Status Date / Time No Known Allergies Allergy Verified 06/20/25 07:27 Home Medications ?Medication ?Instructions ?Recorded ?Confirmed ?Type clopidogrel 75 mg tablet (Plavix) 75 mg PO QAM 12/02/19 06/20/25 History nitroglycerin 0.4 mg sublingual 0.4 mg sublingual Q5M PRN Chest 12/02/19 06/11/25 History tablet Pain oxybutynin chloride 15 mg 15 mg PO DAILY 12/02/19 06/11/25 History tablet,extended release 24 hr ranolazine 500 mg tablet,extended 500 mg PO BID 03/24/21 06/20/25 History release,12 hr rosuvastatin 40 mg tablet 40 mg PO DAILY 05/09/23 06/11/25 History methenamine hippurate 1 gram tablet 1 g PO BID 02/06/24 06/20/25 History folic acid 1 mg tablet 1 mg PO DAILY #90 tabs 05/22/24 06/11/25 Rx levothyroxine 88 mcg tablet 88 mcg PO QAM #90 tabs 05/22/24 06/20/25 Rx albuterol sulfate 90 mcg/actuation 1 - 2 inh inhalation Q4-6H PRN 06/07/24 06/11/25 Rx aerosol inhaler shortness of breath or wheezing #8.5 grams isosorbide mononitrate 30 mg 30 mg PO DAILY 11/25/24 06/20/25 History tablet,extended release 24 hr carvedilol 25 mg tablet 25 mg PO Q12H #180 tabs 12/19/24 06/20/25 Rx ipratropium 0.5 mg-albuterol 3 mg 3 ml inhalation Q6HRT #90 vials 01/28/25 06/11/25 Rx (2.5 mg base)/3 mL nebulization soln acetaminophen 500 mg tablet 500 mg PO Q6H PRN fever or pain 02/11/25 06/11/25 History calcium carbonate (Antacid 200 mg PO QID PRN dyspepsia 02/11/25 06/11/25 History (calcium carbonate)) pantoprazole 40 mg tablet,delayed 40 mg PO BID 30 days #60 tabs 02/25/25 06/20/25 Rx release amoxicillin 250 mg-potassium 1 tablet PO BID #14 tabs 04/11/25 06/11/25 Rx clavulanate 125 mg tablet Stiolto Respimat 2.5 mcg-2.5 See Rx Instructions .Route 04/30/25 06/20/25 Rx mcg/actuation solution for .COMPLEX #4 grams inhalation (tiotropium-olodaterol) felodipine 10 mg tablet,extended 10 mg PO QAM #90 tabs 06/18/25 06/20/25 Rx release 24 hr tramadol 50 mg tablet 50 mg PO Q6H PRN pain #20 tabs 06/20/25 Rx Patient hx anesthesia problems: none Family hx anesthesia problems: none Results Review: All pre-operative results and documents have been reviewed as part of the pre- operative evaluation. [facility] Past Medical History Medical History BMI 31.0-31.9,adult Hunner's ulcer Coronary artery disease Chronic obstructive pulmonary disease Chronic kidney disease, stage 3 Abdominal aortic aneurysm mild dilatation of the distal aorta measuring 3.[address] scan in November 2024 Hypercholesterolemia Deep venous thrombosis (2014) Chronic anticoagulation Paroxysmal atrial fibrillation Essential hypertension Gastro-esophageal reflux disease without esophagitis Pulmonary embolism (2014) 2014 and January 2025 History of tobacco abuse Anxiety Gout Osteoporosis Arthritis Cancer of left kidney status post left nephrectomy Ventral hernia Hemorrhoids Sleep apnea does not use CPAP Migraine Glaucoma Hypothyroidism Peripheral vascular disease, unspecified Surgical History Surgical History History of right breast biopsy History of open reduction and internal fixation (ORIF) procedure repair of bilateral wrist and left foot fractures History of cystoscopy History of hernia repair History of vascular surgery bifemoral bypass left femoral and popliteal stents History of ventral hernia repair History of right shoulder replacement History of cholecystectomy History of appendectomy History of left nephrectomy History of splenectomy retroperitoneal fibrosis History of tubal ligation History of cataract extraction History of coronary artery stent placement (2014) Hx of foot surgery History of hysterectomy Family History Family History Mother Family history of Alzheimer's disease, Onset Age: 82 Sibling Family history of diabetes mellitus in first degree relative Diabetes mellitus Family history of congenital heart disease Father Family history of emphysema Family history of congenital heart disease Other Hypertension Social History Social History Social History: The patient reports he lives in her own home. One of her sons lives with her. Her granddaughter Cordelia helps her significantly. She is a former smoker she smoked 0.5 packs of cigarettes per day from the time she was a teenager until age 59. She denies any history of alcohol use or illicit substance use. She ambulates with a Rollator. Code status: Full code. Healthcare power of tram operator: Cordelia Christianson (granddaughter) Smoking packs per day: 0.5 Smoking cigarettes per day: 10.0 Years smoked: 40 Smoking pack-years: 20.00 Smoking status: Former smoker Tobacco type: cigarettes Second hand tobacco smoke exposure: No Smoking end date: 11/13/13 Additional smoking assessment comments: quit 2013 Alcohol intake: never Substance use: never Substance use type: does not use Do You Feel Safe in your Home?: Yes Lack of Transportation: No Lack of Food: Never True Current Housing: I Have Housing Concerned About Future Housing: No Difficulty Paying Gas/Electric Bills: No Difficulty Paying for Meds: No Currently Unemployed: No Education: High School Diploma/GED Difficulty w/ Childcare or Family Care: No Living arrangements: with family Additional living arrangements comments: SON Occupation/Education: retired Additional occupation/education comments: [employer] Gender identity (if verbalized by the patient): Female Spiritual care concerns: No Anes - Eval Final PreProcedure Day of Procedure 06/20/25 07:16 Patient weight: overweight Heart: regular rate and rhythm Lungs: clear to auscultation Airway: Mallampati scale class II Neurological: alert and oriented Last oral intake: >/= 8 hours ASA classification: IV Emergent: no Anesthetic plan: proceed Anesthesia type and monitoring: general GIVS and standard monitoring Results Review: All pre-operative results and documents have been reviewed as part of the pre- operative evaluation. Informed Consent: The patient's anesthetic plan and its attendant risks and benefits were discussed with the patient/family/POA. Questions were solicited and answers provided to the satisfaction of the patient/family/POA.
[2025-06-20 07:30] LABS: Hematocrit 26.7 % (37.0-47.0); Hemoglobin 8.3 g/dL (12.0-15.0)
[2025-06-20 07:44] LABS: INR 1.2; Prothrombin Time 15.1 Seconds (11.1-14.7)
[2025-06-20 07:45] LABS: Partial Thromboplastin Time 27.5 Seconds (22.3-36.8)
[2025-06-20 08:01] LABS: Anion Gap 9 mmol/L (4-12); Blood Urea Nitrogen 26 mg/dL (7-17); Calcium 8.1 mg/dL (8.4-10.2); Carbon Dioxide 14 mmol/L (22-30); Chloride 111 mmol/L (98-107); Estimated CRCL calculation 21 ml/min; Estimated Glomerular Filt Rate 26; Glucose 98 mg/dL (65-110); Potassium 4.0 mmol/L (3.4-5.0); Sodium 134 mmol/L (137-145)
[2025-06-20] MEDS: ceFAZolin 2 GM in SODIUM CHLORIDE 0.9% IV 50 ML 100 ML IVPB (08:31)
[2025-06-20] MEDS: TRIAMCINOLONE ACET INJ 40 MG/ML VIAL 200 MG XX (08:48)
[2025-06-20] MEDS: LIDOCAINE 2% GEL UROJET 10 ML PKG MUCOUS MEM (08:49)
[2025-06-20 08:58] VITALS: BP 101/42; PULSE 79; RESP 16; O2SAT 96
--- NOTE | 2025-06-20 08:59 | S_PTH ---
PATIENT: Iza Gayle LOC: [facility] U#:[id number] AGE/SX: 69/F ROOM: RE06/20/[address]: Lazaro Juarez MD : 1955 BED: DIS: 06/20/2025 SPEC #: [id number] RECD: 06/20/25 09:00 STATUS: ELVIE REQ #: [id number] KEYUR: 06/20/25 08:[address]: Lazaro Juarez DEPT: [facility] Surgical RECD BY: Andrzej Harris ENTERED: 06/20/25 09:00 SP TYPE: Surgical OTHR DR: Armond Arreola APRN Tissues: A - Bladder Biopsy Procedures: Hematoxylin and Eosin Stain Gross and Microscopic Level 4
--- NOTE | 2025-06-20 09:06 | W.PM.PROC2 ---
Procedure Note - Detailed Date of Procedure 06/20/25 Pre-op Diagnosis hunners ulcer Post-op Diagnosis Same Procedure Performed Cystoscopy, bladder biopsy, injection of steroid Surgeon Lazaro Juarez MD Anesthesia MAC and Local (Uro jet) Indications A Michael recurrent Hunner's ulceration. Here today for repeat treatment understands risks of bleeding, infection, lack of efficacy, need for repeat procedures. Agrees to proceed Findings Ulcerated area back wall of bladder. Biopsy was performed steroids were injected Description of Procedure She was correctly identified. Informed consent obtained. From the operating room. She was given monitored anesthesia care. She was prepped draped sterile fashion. Time-out performed. Uro jet was applied to the urethra. Cystoscopy is performed. Right ureteral orifice easily identified. Left ureteral orifice difficult to locate. Ulcerated area on the back wall the bladder. No other bladder abnormalities. This area is biopsied. I then injected Kenalog. 40 milligrams/mL 5 cc total into the ulcerated area. The area was fulgurated. There was no bleeding under low insufflation pressures. She was awakened after bladder was drained. She was transferred to the PACU in stable condition. Estimated Blood Loss 1 Drains No Packing No Pathology Yes (Bladder biopsy) Complications No immediate complications Condition Stable Disposition PACU
[2025-06-20 09:30] VITALS: BP 125/58; PULSE 85; RESP 18
[2025-06-20 09:51] VITALS: BP 132/58; PULSE 78; RESP 18
== END 2025-06-20 10:00 | disposition home or self-care (01) ==
PROVIDERS: Anesthesiology; PCP Nurse Practitioner; Visit Provider Urology
PROC: 0TBB8ZX Excision of Bladder, Via Natural or Artificial Opening Endoscopic, Diagnostic (ICD-10-PCS; CPT 52204; principal; 2025-06-20 08:15)
DX: N30.10 Interstitial cystitis (chronic) without hematuria (principal); E03.9 Hypothyroidism, unspecified; I25.10 Atherosclerotic heart disease of native coronary artery without angina pectoris; J44.9 Chronic obstructive pulmonary disease, unspecified; I12.9 Hypertensive chronic kidney disease with stage 1 through stage 4 chronic kidney disease, or unspecified chronic kidney disease; N18.30 Chronic kidney disease, stage 3 unspecified; E78.00 Pure hypercholesterolemia, unspecified; I48.0 Paroxysmal atrial fibrillation; K21.9 Gastro-esophageal reflux disease without esophagitis; F41.9 Anxiety disorder, unspecified; M81.0 Age-related osteoporosis without current pathological fracture; M19.90 Unspecified osteoarthritis, unspecified site; G47.30 Sleep apnea, unspecified; I73.9 Peripheral vascular disease, unspecified; Z79.01 Long term (current) use of anticoagulants; Z79.51 Long term (current) use of inhaled steroids; Z79.891 Long term (current) use of opiate analgesic; Z98.890 Other specified postprocedural states; Z95.5 Presence of coronary angioplasty implant and graft; Z98.51 Tubal ligation status; Z90.81 Acquired absence of spleen; Z90.49 Acquired absence of other specified parts of digestive tract; Z95.820 Peripheral vascular angioplasty status with implants and grafts; Z90.5 Acquired absence of kidney; Z87.891 Personal history of nicotine dependence; Z86.711 Personal history of pulmonary embolism; Z85.528 Personal history of other malignant neoplasm of kidney; Z87.19 Personal history of other diseases of the digestive system; Z86.79 Personal history of other diseases of the circulatory system; Z86.718 Personal history of other venous thrombosis and embolism; Z82.49 Family history of ischemic heart disease and other diseases of the circulatory system
CPT/HCPCS: 52204; 52283; 36415; 80048; 85014; 85018; 85610; 85730; 88305; J0690; J2003; J2704; J3010; J3301; J7120

== ENCOUNTER 2025-07-15 09:58 | Outpatient (CLI) | payer OTHER, SELFPAY ==
--- NOTE | ~2025-07-15 | MM_ITS ---
EXAMINATION: MM screening marija BI w eugenio HISTORY: Screening TECHNIQUE: Craniocaudal and mediolateral oblique 3-D tomosynthesis images were obtained and synthetic 2-D images were generated. CAD analysis was submitted and interpreted. COMPARISON: Mammogram 10/01/2021 BREAST PARENCHYMAL COMPOSITION: The breasts are heterogeneously dense, which may obscure small masses. FINDINGS: There is no evidence of suspicious mass, calcification, or architectural distortion to suggest malignancy. There has been no suspicious interval change. IMPRESSION: 1. No mammographic evidence of malignancy. Recommend routine screening mammography in one year. BI-RADS Category 2: Benign finding(s) Reviewed, dictated and finalized at location Q. IMPRESSION: 1. No mammographic evidence of malignancy. Recommend routine screening mammogra phy in one year. BI-RADS Category 2: Benign finding(s)
--- NOTE | ~2025-07-15 | DEXA_ITS ---
Bone Density Report Name: GENARO JORDAN Age: 69 Sex: Female Ethnicity: White Date of : 1955 Indication: postmenopausal; screening for osteoporosis; height loss; hysterectomy; Referring Provider: GER BENSON Study: Bone densitometry was performed. Exam Date: July 15, 2025 Accession number: [id number] Bone Density: Region BMD T-score Z-score Classification AP Spine(L1-L4) 0.892 -1.4 0.6 Osteopenia Femoral Neck (Left) 0.466 -3.5 -1.7 Osteoporosis Total Hip (Left) 0.598 -2.8 -1.4 Osteoporosis Femoral Neck (Right) 0.478 -3.3 -1.6 Osteoporosis Total Hip (Right) 0.591 -2.9 -1.4 Osteoporosis Total Hip Mean 0.595 -2.9 -1.4 Osteoporosis World Health Organization criteria for BMD impression classify patients as: Normal (T-score at or above -1.0), Osteopenia (T-score between -1.0 and -2.5), or Osteoporosis (T-score at or below -2.5). 10-year Fracture Risk: FRAX not reported because: Some T-score for Spine Total or Hip Total or Femoral Neck at or below -2.5 Treated for osteoporosis Clinical Information Provided by Patient: Is being treated for osteoporosis Has the following medical conditions: Hysterectomy Patient maximum height was 63 Menopause Age: 25 No regular weight bearing exercise Does not regularly consume dairy products Onset of menses at age 13 Number of children 3 Impression: The patient has osteoporosis, based on the Left Femoral Neck T-score. Discussion: It is important to ask patients whether they are taking their medications and to encourage continued and appropriate compliance with their osteoporosis therapies to reduce fracture risk. It is also important to review their risk factors and encourage appropriate calcium and vitamin D intakes, exercise, fall prevention and other lifestyle measures. Follow-Up: Consider a repeat BMD and Vertebral Fracture Assessment (VFA) exam in 2 years or sooner if medically necessary, to reassess this patient's status. Reported by: TAMAR on 07/17/2025 8:01:00 AM. Reviewed, dictated and finalized at location A.
--- OUTSIDE RECORDS SUMMARY | 2025-07-15 10:27 | XMS_ITS | Encounter Summary ---
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 Gender Identity Not on file Sexual Orientation Not on file documented as of this encounter Plan of Treatment Upcoming Encounters Date Type Department Care Team ([facility] Contact Info) Description 07/31/2025 12:20 PM CDT Hospital Encounter [facility] Operating Room [address] [place] [phone] Jorge Manning MD [address] [place] [address] 07/31/2025 12:20 PM CDT Anesthesia Event [facility] Operating Room [address] [place] [phone] Ashlyn Rodriguezah Daisy, SAND WHEELER [address] [facility] [address] [place] [address] 07/31/2025 12:20 PM CDT - 07/31/2025 5:35 PM CDT Surgery [facility] Operating Room [address] [place] [phone] Jorge Manning MD [address] [place] [phone] XI REPAIR INCISIONAL HERNIA - LAPAROSCOPIC ROBOTIC ASSISTED Scheduled Procedures Name Priority Associated Diagnoses Date/Ti me XI REPAIR INCISIONAL HERNIA - LAPAROSCOPIC ROBOTIC ASSISTED Recurrent incisional hernia with incarceration 07/31/2025 12:20 PM CDT XI ROBOTIC ABDOMINAL WALL RECONSTRUCTION Recurrent incisional hernia with incarceration 07/31/2025 12:20 PM CDT documented as of this encounter Procedures Procedure [...] documented as of this encounter Care Teams Print Shop Helper Relationship Specialty Start Date End Date Ricardo Freeman DO [address] [place] [address] PCP - General Internal Medicine 06/19/24 documented as of this encounter
--- OUTSIDE RECORDS SUMMARY | 2025-07-15 10:27 | XMS_ITS | Clinical Summary ---
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 Patient has a stable 3.6 cm infrarenal abdominal aortic aneurysms. He is she remains asymptomatic. Plan: Continue ongoing risk factor modifications. -Patient to follow-up in 1 year for re-evaluation with abdominal aortic duplex. Assessment & Plan (06/20/2024 12:11 PM CDT): Abdominal aortic aneurysms currently measuring 3.7 x 3.6 cm remains asymptomatic. Follow up in 1 year with aortic duplex. Continue aspirin and statin therapy Assessment & Plan (12/21/2023 1:27 PM INFECTION 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): Continue risk factor modifications and continue annual [...] surveillance. Assessment & Plan (12/27/2022 8:50 AM INFECTION 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): Impression: Patient has a 3.3 cm infrarenal abdominal aortic aneurysm seen on a CT abdomen pelvis in September 2022. She remains asymptomatic. Plan: We will continue to monitor with an abdominal duplex in September. Chronic venous insufficiency 12/27/2022 Atherosclerosis of [place] ar teries of extremities with intermittent claudication, bilateral legs 12/27/2022 Assessment & Plan (07/11/2025 11:20 AM CDT): Impression: Patient has a history of a fem-fem bypass graft. She denies any symptoms of claudication, ischemic rest pain or ulcerations to her lower extremity. No updated lower extremity arterial duplex was performed Plan: Recommend patient to undergo a lower extremity arterial duplex for further evaluation at fem-fem bypass graft. Made patient aware if there are concerns, she will be contacted to make an appointment otherwise patient to follow-up in 1 year with a lower extremity arterial duplex. Assessment & Plan (06/20/2024 12:12 PM CDT): Patent fem-fem bypass graft per current duplex. Patient denies any claudication symptoms. Follow up in 6 months for routine surveillance with a fem-fem duplex continue aspirin Plavix and statin therapy. Assessment & Plan (12/21/2023 1:28 PM INFECTION 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): Bilateral lower extremity arterial occlusive disease status [...] duplex Assessment & Plan (12/27/2022 9:00 AM INFECTION 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): Impression: Patient has a history of iliac occlusion and underwent a fem-fem bypass graft by Dr. Sheldon in 2014. Patient denies any worsening symptoms of claudication, ischemic rest pain or ulcerations to her lower extremity. Plan: Patient to follow-up with an arterial duplex during her postop venous duplex scans. History of DVT (deep vein thrombosis) 11/29/2022 Assessment & Plan (11/29/2022 10:06 AM INFECTION 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): Impression: Patient has a history of a [...] 05/19/2023. Assessment & Plan (12/27/2022 8:59 AM INFECTION 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): Impression: Patient continues to complain of pain [...] procedure. Assessment & Plan (11/29/2022 10:00 AM INFECTION 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): Impression: Patient complains of pain to left [...] for re-evaluation. Bilateral lower extremity edema 12/25/2020 Assessment & Plan (07/11/2025 11:17 AM CDT): Impression: Patient has severe bilateral lower extremity edema. Bilateral lower extremities are tender to touch. No erythema or drainage is noted. Plan: Recommend compression therapy and leg elevation for edema control. -Tubigrip and Timur bandage applied to bilateral lower extremities prior to patient leaving the office. Thoracic back pain 05/06/2020 Chest pain 12/10/2019 RODAS (dyspnea on exertion) [...] artery disease of n ative artery of [place] heart with stable angina pectoris 10/01/2015 Overview (02/17/2017): Coronary artery disease Preoperative state 02/20/2015 Overview (02/17/2017): Pre-operative cardiovascular examination Hypertension 02/20/2015 Overview (02/17/2017): Hypertension Assessment & Plan (07/11/2025 11:21 AM CDT): Chronic. Continue carvedilol felodipine isosorbide Assessment & Plan (06/21/2023 11:15 AM CDT): Stable continue lisinopril 10 mg. Assessment & Plan (12/27/2022 9:05 AM INFECTION 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): Impression: Chronic hypertension. Plan: Continue Coreg and lisinopril. Assessment & Plan (11/29/2022 10:32 AM INFECTION 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): Impression: Chronic hypertension, controlled with Coreg and lisinopril. Plan: Continue blood pressure management with Coreg and lisinopril as per primary care provider/cardiology. Renal insufficiency 02/20/2015 Overview (02/17/2017): Renal insufficiency Ventricular premature beats 02/20/2015 Overview (02/17/2017): PVCs (premature ventricular contractions) History of tobacco abuse 02/20/2015 Overview (02/17/2017): Former tobacco use Hyperlipidemia LDL goal <70 02/20/2015 Overview (02/17/2017): High cholesterol Assessment & Plan (07/11/2025 11:21 AM CDT): Chronic and stable. Continue rosuvastatin Peripheral arterial occlusive disease 02/20/2015 Overview (02/17/2017): [...] Problem Noted Date Diagnosed Date Resolved Date Bilateral carotid artery stenosis 12/31/2019 07/11/2025 Assessment & Plan (04/27/2023 3:53 PM CDT): Patient has mild carotid stenosis which was seen on recent duplex. She no longer requires surveillance and can follow-up as needed. Assessment & Plan (12/27/2022 8:48 AM INFECTION 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): Impression: Patient has mild bilateral internal carotid arteries. She remains asymptomatic. Plan: Patient has mild carotid stenosis seen on duplex. No longer require surveillance. Follow up as needed. Encourage patient to notify the office or present to the ED if she experiences stroke-like symptoms. Patient voices understanding. Assessment & Plan (11/29/2022 10:30 AM INFECTION 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): Impression: Patient has a history of bilateral carotid artery stenosis being followed by her interior paneler. Patient requesting the office to monitor. Patient denies any new focal or lateralizing neurological defects, amaurosis fugax, or speech disturbances at this time. Plan: We will obtain carotid duplex for further evaluation have patient follow- up in 2 weeks. Atherosclerosis of aorta (CMS/HCC) 12/26/2011 12/27/2022 Encounters Date Type Department Care Team Description 07/10/[address] [facility] Vascular and Vein Surgery [address] [place], [place] [phone] Katarzyna Pereira MD Infrarenal abdominal aortic aneurysm (AAA) without rupture (Primary Dx); Atherosclerosis of [place] arteries of extremities with intermittent claudication, bilateral legs 07/09/2025 2:00 PM CDT Office Visit [facility] Vascular and Vein Surgery [address] [place] [phone] Kathryn Chen NP Infrarenal abdominal aortic aneurysm (AAA) without rupture (Primary Dx); Atherosclerosis of [place] arteries of extremities with intermittent claudication, bilateral legs; Bilateral lower extremity edema; Primary hypertension; Hyperlipidemia LDL goal <70 07/08/2025 8:00 AM CDT - 07/08/2025 11:59 PM CDT Hospital Encounter [facility] Medical Office Building 2 Vascular [address] [place] [address] Infrarenal abdominal aortic aneurysm (AAA) without rupture Discharge Disposition: Discharge to home or self care 04/17/2025 Telephone [facility] Cardiology [address] [place] [address] Anne Marie Manuel NP 04/14/2025 10:00 AM CDT Office Visit [facility] Cardiology [address] [place] [address] Anne Marie Manuel NP Pulmonary embolism, unspecified chronicity, unspecified pulmonary embolism type, unspecified whether acute cor pulmonale present (HCC); Stage 3a chronic kidney disease (HCC); Coronary artery disease of [place] artery of [place] heart with stable angina pectoris (CMS/HCC); Ventricular premature beats; Hospital discharge follow-up 04/14/2025 Telephone [facility] Medicine ([facility]) - [facility] [place] [place] Minimally Invasive Surgery [address] [facility] [place] [facility] [address]th Floor, [place] [address] Kiara Reeder RN from Last [...] retroperitoneal fibrosis, status post left nephrec; Comments: [facility] 02/20/2015 - Hx Other Medical glaucoma, JANNY, obesity, hypercholesterolemia, dent; Comments: [facility] 02/20/2015 - Hypertension HLD (hyperlipidemia) Sleep [...] on file Legal Sex Female 2:59 AM 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 Gender Identity Not on file Sexual Orientation Not on file Obstetrics History Last Filed Vital Signs Vital Sign Reading Time Taken Comments Blood Pressure 138/77 07/09/2025 2:12 PM CDT Pulse 106 07/09/2025 2:12 PM CDT Temperature 37.1 C (98.7 F) 06/28/2024 9:02 AM CDT Respiratory Rate 18 12/31/2024 1:20 PM INFECTION 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 Oxygen Saturation 92% 04/14/2025 10:48 AM CDT Inhaled Oxygen Concentration - - Weight 61.2 kg (135 lb) 07/09/2025 2:12 PM CDT Height 157.5 cm (5' 2) 07/09/2025 2:12 PM CDT Body Mass Index 24.69 07/09/2025 2:12 PM CDT Plan of Treatment Upcoming Encounters Date Type Department Care Team (Late st Contact Info) Description 07/31/2025 12:20 PM CDT Hospital Encounter [facility] Operating Room 1 [place] [address] Jorge Manning MD [address] [place] [address] 07/31/2025 12:20 PM CDT Anesthesia Event [facility] Operating Room [address] [place] [address] Haley Rodriguez, CLINT [address] [facility] [address] [place] [phone] 07/31/2025 12:20 PM CDT - 07/31/2025 5:35 PM CDT Surgery [facility] Operating Room [address] [place] [address] Jorge Manning MD [address] [place] [address] XI REPAIR INCISIONAL HERNIA - LAPAROSCOPIC ROBOTIC ASSISTED Scheduled Procedures Name Priority Associated Diagnoses Date/Ti me XI REPAIR INCISIONAL HERNIA - LAPAROSCOPIC ROBOTIC ASSISTED Recurrent incisional hernia with incarceration 07/31/2025 12:20 PM CDT XI ROBOTIC ABDOMINAL WALL RECONSTRUCTION Recurrent incisional hernia with incarceration 07/31/2025 12:20 PM CDT Health Maintenance Due Date Last Done Comments Breast Cancer Screening-Mammogram 1955 Depression Screening 1955 Hepatitis C Screening 1955 Osteoporosis Screening-Bone Density Scan 1955 Hepatitis B Screening 1974 Well Visit 65+ 2021 Pneumococcal vaccine 65+ (3 of 3 - PCV20 or PCV21) 11/29/2022 11/29/2017, 11/29/2017, 11/16/2016, Additional history exists Influenza Vaccine (#1) 2025 , 08/24/2022, 10/01/2021, Additional history exists Fall Risk Assessment 12/31/2025 12/31/2024, 08/21/20 Colon Cancer Screening-Colonoscopy 01/30/2027 01/30/2017 DTaP/Tdap/Td Vaccine (3 - Td or Tdap) 05/03/2032 05/03/2022, 06/23/2015 Colon Cancer Screening-CT Colonography Discontinued 01/30/2017 Colon Cancer Screening-DNA Stool Discontinued 01/31/20 Colon Cancer Screening-FIT Discontinued 01/30/2017 Colon Cancer Screening-Sigmoidoscopy Discontinued 01/30/2017 Zoster Vaccine Completed 05/03/2022, 10/13, 08/08/2018 Goals Goal Patient Goal Type Associated Problems Recent Progress Patient-Stated? Author Autogenerat ed Goal Care Plan Autogenerated Problem Fatemeh MehnazKenna edmond Medical Devices Implanted Type Area Shot Grinder Operator Device Identifier Shelf Expiration Date Model / Serial / Lot Graft Graft Femoral Description:2014 Stent Implanted:Qty: 1 Stent Coronary Artery Description:2014 Procedures Procedure Name Priority Date/Time Associated Diagnosis Comments US DUPLEX SCAN OF AORTA: INFERIOR VENA CAVA, ILIAC, COMPLETE Routine 07/08/2025 9:02 AM CDT Infrarenal abdominal aortic aneurysm (AAA) without rupture CT VIRTUAL COLONOSCOPY DIAGNOSTIC W CONTRAST Routine 01/30/2017 2:38 PM CDT from Last 3 Months or Most Recently Relevant to Health Maintenance Results * US Duplex Scan of Aorta; Inferior Vena Cava, Iliac, Complete (07/08/2025 9:02 AM CDT) Anatomical Region Laterality Modality Vascular Ultrasound 07/08/2025 8:29 AM CDT Narrative 07/08/2025 1:19 PM CDT Abdominal Aortic Duplex Ultrasound Report Patient Name: GENARO GAYLE M : 1955 Study Date: 07/08/2025 8:29:47 AM Gender: F Lubricating Specialist: Sarah Flores RDMS,T Ref Provider: KATARZYNA PEREIRA Quality: Adequate Order Provider: KATARZYNA PEREIRA PROCEDURES: Arterial Report: Duplex ultrasound imaging of the abdominal aorta. INDICATIONS: I71.43 Infrarenal abdominal aortic aneurysm, without rupture. HISTORY: Left ALMA occlusion. COMPARISONS: The previous exam was completed on 06/19/2024. Previous AAA measured 3.7 x 3.6cm. MEASUREMENTS: Vessel Velocities Vessel Diameters Aorta Prx PSV 91.44 cm/sec Aorta Prx AP Dim 2.00 cm Aorta Mid PSV 66.95 cm/sec Aorta Prx Trans Dim 2.20 cm Aorta Dst PSV 53.26 cm/sec Aorta Mid AP Dim 2.40 cm Rt Com Iliac Prx PSV 227.78 cm/sec Aorta Mid Trans Dim 2.70 cm Lt Com Iliac Prx PSV 0.00 cm/sec Aorta Dst AP Dim 3.60 cm Aorta Dst Trans Dim 3.90 cm Rt Com Iliac Prx AP Dim 1.10 cm Rt Com Iliac Prx Trans Dim 1.20 cm Lt Com Iliac Prx AP Dim 1.00 cm Lt Com Iliac Prx Trans Dim 1.40 cm FINDINGS: Study Quality: Adequate. Abdominal Aorta: Infrarenal abdominal aortic aneurysm measurin.9 x 3.6 cm. Left Common Iliac: Left common iliac artery occlusion. CONCLUSIONS: 1. Abdominal aortic aneurysm, maximum diameter 3.6 cm. 2. Occlusion of the left common iliac artery. ATTESTATION: I have reviewed and interpreted the pertinent images and measurements of this study. I attest to the conclusions in the final report that is provided above. Electronically Signed By: Vick Pereira MD 07/08/2025 1:00:52 PM CDT Procedure Note Vick Pereira MD - 07/08/2025 Abdominal Aortic Duplex Ultrasound Report Patient Name: GENARO GAYLE M : 1955 Study Date: 07/08/2025 8:29:47 AM Gender: F Lubricating Specialist: Sarah Flores RDMS,RVT Ref Provider: KATARZYNA PEREIRA Quality: Adequate Order Provider: KATARZYNA PEREIRA PROCEDURES: Arterial Report: Duplex ultrasound imaging of the abdominal aorta. INDICATIONS: I71.43 Infrarenal abdominal aortic aneurysm, without rupture. HISTORY: Left ALMA occlusion. COMPARISONS: The previous exam was completed on 06/19/2024. Previous AAA measured 3.7 x 3.6cm. MEASUREMENTS: Vessel Velocities Vessel Diameters Aorta Prx PSV 91.44 cm/sec Aorta Prx AP Dim 2.00 cm Aorta Mid PSV 66.95 cm/sec Aorta Prx Trans Dim 2.20 cm Aorta Dst PSV 53.26 cm/sec Aorta Mid AP Dim 2.40 cm Rt Com Iliac Prx PSV 227.78 cm/sec Aorta Mid Trans Dim 2.70 cm Lt Com Iliac Prx PSV 0.00 cm/sec Aorta Dst AP Dim 3.60 cm Aorta Dst Trans Dim 3.90 cm Rt Com Iliac Prx AP Dim 1.10 cm Rt Com Iliac Prx Trans Dim 1.20 cm Lt Com Iliac Prx AP Dim 1.00 cm Lt Com Iliac Prx Trans Dim 1.40 cm FINDINGS: Study Quality: Adequate. Abdominal Aorta: Infrarenal abdominal aortic aneurysm measurin.9 x 3.6 cm. Left Common Iliac: Left common iliac artery occlusion. CONCLUSIONS: 1. Abdominal aortic aneurysm, maximum diameter 3.6 cm. 2. Occlusion of the left common iliac artery. ATTESTATION: I have reviewed and interpreted the pertinent images and measurements ofthis study. I attest to the conclusions in the final report that is provided above. Electronically Signed By: Vick Pereira MD 07/08/2025 1:00:52 PM CDT Katarzyna Pereira MD IMG US PROCEDURES Final Result * CT Virtual [...] agrees with it. ACC# Date Time Exam [id number] Jan 30, 2017 09:38:[address] Colonography Screen ACC# Date Time Exam [id number] Jan 30, 2017 09:38:[address] Colonography Screen EXAMINATION: CT colonography without [...] SHAW M.D. on Jan 30 2017 5:45P [id number] Procedure Note Miscellaneous, Notinfile / Provider, MD Alicia - 04/04/2017 Aleksandar BOYER M.D. FINAL REPORT The radiology attending physician has personally reviewed this study, and has reviewed and/or edited this written report and agrees with it. ACC# Date Time Exam [id number] Jan 30, 2017 09:38:[id number] Colonography Screen ACC# Date Time Exam [id number] Jan 30, 2017 09:38:[id number] Colonography Screen EXAMINATION: CT colonography without [...] SHAW M.D. 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
--- OUTSIDE RECORDS SUMMARY | 2025-07-15 10:27 | XMS_ITS | Clinical Summary ---
Author Organization [facility] Address [address] [place] [address] Phone Care Team Providers Care Supervisor Wound Name Role Phone BobyCarlito alonso Primary Care Provider Allergies No known active allergies Medications lansoprazole [...] absence of kidney 02/18/2018 Coronary arteriosclerosis in [place] artery 10/01 Overview (05/22/2019): Coronary artery disease [...] on file Legal Sex Female 9:30 AM [facility] Gender Identity Not on file [...] (#1) 2025 08/13/2019 Insurance [employer] [facility] Address: [address] [address] Care Teams Supervisor Wound Relationship Specialty Start Date End Date Carlito Guerrero DO [address] [phone] PCP - General Internal Medicine 05/22/19
--- OUTSIDE RECORDS SUMMARY | 2025-07-15 10:27 | XMS_ITS | Encounter Summary ---
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 Operating Room [address] [place] [address] Jorge Manning MD [address] [place] [address] 07/31/2025 12:20 PM CDT Anesthesia Event [facility] Operating Room [address] [place] [address] Haley Rodriguez, WELLNESS ASSISTANT [address] [facility] [address] [place] [phone] 07/31/2025 12:20 PM CDT - 07/31/2025 5:35 PM CDT Surgery 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
--- OUTSIDE RECORDS SUMMARY | 2025-07-15 10:27 | XMS_ITS | Encounter Summary ---
Author Organization [facility] Healthcare Address [address] [facility] [place] [address] Care Team Providers Care Rn Child Name Role Phone Carlito Guerrero MD Primary Care Provider [phone] Ricardo Freeman DO Primary Care Provider [phone] Encounter Details Date Type Department Care Team (Late Contact Info) Description 04/13/2018 Orders Only [facility] Health Information Management [address] [place] [address] Scanning, Provider Social History Tobacco Use Types Packs/Day Years Used Date Smoking Tobacco: Former Smokeless Tobacco: Never Alcohol Use Standard Drinks/Week Comments No 0 (1 standard drink = 0.6 oz pur e alcohol) Comments Unknown Sex and Gender Information Value Date Recorded Sex Assigned at Not on file 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 Gender Identity Not on file Sexual Orientation Not on file documented as of this encounter Plan of Treatment Upcoming Encounters Date Type Department Care Team ([facility] Contact Info) Description 07/31/2025 12:20 PM CDT Hospital Encounter [facility] Operating Room [address] [place] [address] Jorge Manning MD [address] [place], [place] [phone] 07/31/2025 12:20 PM CDT Anesthesia Event [facility] Operating Room [address] [place] [address] Jennifer Haley Villa, MANAGER PROCESS [address] [facility] [address] [place] [address] 07/31/2025 12:20 PM CDT - 07/31/2025 5:35 PM CDT Surgery [facility] Operating Room [address] [place] [phone] Jorge Manning MD [address] [place] [address] XI REPAIR INCISIONAL HERNIA - LAPAROSCOPIC ROBOTIC ASSISTED Scheduled Procedures Name Priority Associated Diagnoses Date/Ti me XI REPAIR INCISIONAL HERNIA - LAPAROSCOPIC ROBOTIC ASSISTED Recurrent incisional hernia with incarceration 07/31/2025 12:20 PM CDT XI ROBOTIC ABDOMINAL WALL RECONSTRUCTION Recurrent incisional hernia with incarceration 07/31/2025 12:20 PM CDT documented as of this encounter Procedures Procedure Name Priority Date/Time Associated Diagnosis Comments SCAN - LABS 04/13/2018 documented in this encounter Results * SCAN - LABS (04/13/2018) Provider Scanning Final Result documented in this encounter Visit Diagnoses Not on filedocumented in this encounter Additional Health Concerns Infection Onset Date Last Indicated Resolved Time 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
--- OUTSIDE RECORDS SUMMARY | 2025-07-15 10:27 | XMS_ITS | Encounter Summary ---
Author Organization 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 Gender Identity Not on file Sexual Orientation Not on file documented as of this encounter Plan of Treatment Upcoming Encounters Date Type Department Care Team ([facility] Contact Info) Description 07/31/2025 12:20 PM CDT Hospital Encounter [facility] Operating Room [address] [place] [address] Jorge Manning MD [address] [place] [address] 07/31/2025 12:20 PM CDT Anesthesia Event [facility] Operating Room [address] [place] [address] Haley Rodriguez, ORACLE ERP ARCHITECT [address] [facility] [address] [place] [phone] 07/31/2025 12:20 PM CDT - 07/31/2025 5:35 PM CDT Surgery [facility] Operating Room [address] [place] [address] Jorge Manning MD [address] [place] [address] XI REPAIR INCISIONAL HERNIA - LAPAROSCOPIC ROBOTIC ASSISTED Scheduled Procedures Name Priority Associated Diagnoses Date/Ti me XI REPAIR INCISIONAL HERNIA - LAPAROSCOPIC ROBOTIC ASSISTED Recurrent incisional hernia with incarceration 07/31/2025 12:20 PM CDT XI ROBOTIC ABDOMINAL WALL RECONSTRUCTION Recurrent incisional hernia with incarceration 07/31/2025 12:20 PM CDT documented as of this encounter Procedures Procedure Name Priority Date/Time Associated Diagnosis Comments SCAN - RADIOLOGY/IMAGING 11/25/2024 documented in this encounter Results * SCAN - RADIOLOGY/IMAGING (11/25/2024) Anatomical Region Laterality Modality Other us Provider Scanning Edited Result - Final documented in this encounter Visit Diagnoses Not on filedocumented in this encounter Additional Health Concerns Infection Onset Date Last Indicated Resolved Time 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
--- OUTSIDE RECORDS SUMMARY | 2025-07-15 10:27 | XMS_ITS | Encounter Summary ---
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 Gender Identity Not on file Sexual Orientation Not on file documented as of this encounter Plan of Treatment Upcoming Encounters Date Type Department Care Team ([facility] Contact Info) Description 07/31/2025 12:20 PM CDT Hospital Encounter [facility] Operating Room 1 [place] [address] Jorge Manning MD [address] [place] [address] 07/31/2025 12:20 PM CDT Anesthesia Event [facility] Operating Room [address] [place] [address] Jennifer Haley Daisy, BENCH ASSEMBLER ELECTRICAL [address] [facility] [address] [place] [address] 07/31/2025 12:20 PM CDT - 07/31/2025 5:35 PM CDT Surgery [facility] Operating Room [address] [place] [address] Jorge Manning MD [address] [place] [address] XI REPAIR INCISIONAL HERNIA - LAPAROSCOPIC ROBOTIC ASSISTED Scheduled Procedures Name Priority Associated Diagnoses Date/Ti me XI REPAIR INCISIONAL HERNIA - LAPAROSCOPIC ROBOTIC ASSISTED Recurrent incisional hernia with incarceration 07/31/2025 12:20 PM CDT XI ROBOTIC ABDOMINAL WALL RECONSTRUCTION Recurrent incisional hernia with incarceration 07/31/2025 12:20 PM CDT documented as of this encounter Procedures Procedure Name Priority Date/Time Associated Diagnosis Comments SCAN - RADIOLOGY/IMAGING 01/20/2025 CARDIOLOGY DOCUMENT SCAN 01/20/2025 documented in this encounter Results * SCAN - RADIOLOGY/IMAGING (01/20/2025) Anatomical Region Laterality Modality Other us Provider Scanning Final Result * Cardiology Document Scan (01/20/2025) Anatomical Region Laterality Modality Other us Provider Scanning CV CARDIAC SERVICES PROCEDURES Final Result documented in this encounter Visit Diagnoses Not on filedocumented in this encounter Additional Health Concerns Infection Onset Date Last Indicated Resolved Time 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
--- OUTSIDE RECORDS SUMMARY | 2025-07-15 10:27 | XMS_ITS | Encounter Summary ---
Author Organization [facility] Healthcare Address [address] [facility] [place] [address] Care Team Providers Care Typewriter Operator Automatic Name Role Phone Carlito Guerrero MD Primary Care Provider [phone] Ricardo Freeman DO Primary Care Provider [phone] Encounter Details Date Type Department Care Team (Late Contact Info) Description 05/04/2018 Orders Only [facility] Health Information Management [address] [place] [id number] Scanning, Provider Social History Tobacco Use Types Packs/Day Years Used Date Smoking Tobacco: Former Smokeless Tobacco: Never Alcohol Use Standard Drinks/Week Comments No 0 (1 standard drink = 0.6 oz pur e alcohol) Comments Unknown Sex and Gender Information Value Date Recorded Sex Assigned at Not on file Legal Sex Female 2:59 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 CARE 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 Gender Identity Not on file Sexual Orientation Not on file documented as of this encounter Plan of Treatment Upcoming Encounters Date Type Department Care Team ([facility] Contact Info) Description 07/31/2025 12:20 PM CDT Hospital Encounter [facility] Operating Room [address] [place] [address] Jorge Manning MD [address] [place], [place] [id number] 07/31/2025 12:20 PM CDT Anesthesia Event [facility] Operating Room [address] [place] [phone] Haley Rodriguez, SPACE TECHNOLOGIST [address] [facility] [address] [place] [address] 07/31/2025 12:20 PM CDT - 07/31/2025 5:35 PM CDT Surgery [facility] Operating Room [address] [place] [address] Jorge Manning MD [address] [place] [address] XI REPAIR INCISIONAL HERNIA - LAPAROSCOPIC ROBOTIC ASSISTED Scheduled Procedures Name Priority Associated Diagnoses Date/Ti me XI REPAIR INCISIONAL HERNIA - LAPAROSCOPIC ROBOTIC ASSISTED Recurrent incisional hernia with incarceration 07/31/2025 12:20 PM CDT XI ROBOTIC ABDOMINAL WALL RECONSTRUCTION Recurrent incisional hernia with incarceration 07/31/2025 12:20 PM CDT documented as of this encounter Procedures Procedure Name Priority Date/Time Associated Diagnosis Comments SCAN - RADIOLOGY/IMAGING 05/04/2018 documented in this encounter Results * SCAN - RADIOLOGY/IMAGING (05/04/2018) Anatomical Region Laterality Modality Other us Provider Scanning Final Result documented in this encounter Visit Diagnoses Not on filedocumented in this encounter Additional Health Concerns Infection Onset Date Last Indicated Resolved Time 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
--- OUTSIDE RECORDS SUMMARY | 2025-07-15 10:28 | XMS_ITS | Encounter Summary ---
Author Organization [facility] Healthcare Address [address] [place] [address] Care Team Providers Care Sitecore Developer Name Role Phone Ricardo Freeman DO Primary Care Provider [phone] Encounter Details Date Type Department Care Team ([facility] Contact Info) Description 01/13/2025 Orders Only [facility] Health Information Management [address] [place] [address] Scanning, Provider Social History Tobacco Use Types [...] on file Legal Sex Female 2:59 AM LPN PRIVATE DUTY Gender Identity Not on file Sexual Orientation Not on file documented as of this encounter Plan of Treatment Upcoming Encounters Date Type Department Care Team ([facility] Contact Info) Description 07/31/2025 12:20 PM CDT Hospital Encounter [facility] Operating Room [address] [place] [address] Jorge Manning MD [address] [place] [address] 07/31/2025 12:20 PM CDT Anesthesia Event [facility] Operating Room [address] [place] [address] Jennifer Haley Daisy, INSPECTOR WEIGHTS AND MEASURES [address] [facility] [address] [place] [address] 07/31/2025 12:20 PM CDT - 07/31/2025 5:35 PM CDT Surgery [facility] Operating Room [address] [place] [address] Jorge Manning MD [address] [place] [address] XI REPAIR INCISIONAL HERNIA - LAPAROSCOPIC ROBOTIC ASSISTED Scheduled Procedures Name Priority Associated Diagnoses Date/Ti me XI REPAIR INCISIONAL HERNIA - LAPAROSCOPIC ROBOTIC ASSISTED Recurrent incisional hernia with incarceration 07/31/2025 12:20 PM CDT XI ROBOTIC ABDOMINAL WALL RECONSTRUCTION Recurrent incisional hernia with incarceration 07/31/2025 12:20 PM CDT documented as of this encounter Procedures Procedure Name Priority Date/Time Associated Diagnosis Comments SCAN - RADIOLOGY/IMAGING 01/13/2025 CARDIOLOGY DOCUMENT SCAN 01/13/2025 documented in this encounter Results * SCAN - RADIOLOGY/IMAGING (01/13/2025) Anatomical Region Laterality Modality Other us Provider Scanning Final Result * Cardiology Document Scan (01/13/2025) Anatomical Region Laterality Modality Other us Provider Scanning CV CARDIAC SERVICES PROCEDURES Edited Result - Final documented in this encounter Visit Diagnoses Not on filedocumented in this encounter Additional Health Concerns Infection Onset Date Last Indicated Resolved Time 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
--- OUTSIDE RECORDS SUMMARY | 2025-07-15 10:28 | XMS_ITS | Encounter Summary ---
Author Organization [facility] Healthcare Address [address] [facility] [place] [address] Care Team Providers Care Nissan Sales Consultant Name Role Phone Carlito Guerrero MD Primary Care Provider [phone] Ricardo Freeman DO Primary Care Provider [phone] Encounter Details Date Type Department Care Team (Late Contact Info) Description 04/12/2018 Orders Only [facility] Health Information Management [address] [place] [address] Scanning, Provider Social History Tobacco Use Types Packs/Day Years Used Date Smoking Tobacco: Former Smokeless Tobacco: Never Alcohol Use Standard Drinks/Week Comments No 0 (1 standard drink = 0.6 oz pur e alcohol) Comments Unknown Sex and Gender Information Value Date Recorded Sex Assigned at Not on file 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 Female 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 Gender Identity Not on file Sexual Orientation Not on file documented as of this encounter Plan of Treatment Upcoming Encounters Date Type Department Care Team ([facility] Contact Info) Description 07/31/2025 12:20 PM CDT Hospital Encounter [facility] Operating Room [address] [place] [address] Jorge Manning MD [address] [place], [place] [id number] 07/31/2025 12:20 PM CDT Anesthesia Event [facility] Operating Room [address] [place] [address] Haley Rodriguez, HOUSE DIRECTOR [address] [facility] [address] [place] [address] 07/31/2025 12:20 PM CDT - 07/31/2025 5:35 PM CDT Surgery [facility] Operating Room [address] [place] [address] Jorge Manning MD [address] [place] [address] XI REPAIR INCISIONAL HERNIA - LAPAROSCOPIC ROBOTIC [...] Associated Diagnosis Comments CARDIOLOGY DOCUMENT SCAN 04/12/2018 SCAN - RADIOLOGY/IMAGING 04/11/2018 documented in this encounter Results * Cardiology Document Scan (04/12/2018) Anatomical Region Laterality Modality Other us Provider Scanning CV CARDIAC SERVICES PROCEDURES Edited Result - Final * SCAN - RADIOLOGY/IMAGING (04/11/2018) Anatomical Region Laterality Modality Other us Provider Scanning Edited Result - Final documented in this encounter Visit Diagnoses Not on filedocumented in this encounter Additional Health Concerns Infection Onset Date Last Indicated Resolved Time 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
--- OUTSIDE RECORDS SUMMARY | 2025-07-15 10:28 | XMS_ITS | Clinical Summary ---
Author Organization [facility] Address [address] [place] [address] Care Team Providers Care Ground Defence Officer Name Role Phone Carlito Guerrero MD Primary Care Provider [phone] Sarabjit Velasco MD Unavailable [phone] Allergies No known active allergies Medications No [...] complete this topic Insurance [employer] Care Teams Ground Defence Officer Relationship Specialty Start Date End Date Carlito Guerrero MD [address] [place], [place] [phone] PCP - General INTERNAL MEDICINE 05/11/22 Sarabjit Velasco MD [address] [place] [address] CARDIOVASCULAR DISEASE 05/11/22
== END 2025-07-15 09:59 | disposition home or self-care (01) ==
PROVIDERS: PCP Nurse Practitioner; Visit Provider Obstetrics & Gynecology Gynecology
DX: Z12.31 Encounter for screening mammogram for malignant neoplasm of breast (principal); M81.0 Age-related osteoporosis without current pathological fracture; M85.88 Other specified disorders of bone density and structure, other site
CPT/HCPCS: 77063; 77067; 77080

== ENCOUNTER 2025-09-02 15:28 | Outpatient (CLI) | payer OTHER, SELFPAY ==
--- OUTSIDE RECORDS SUMMARY | 2025-09-02 15:00 | XMS_ITS | Encounter Summary ---
Author Organization [facility] ([facility] REJI Jones [facility] Address [address] [place] [address] Care Team Providers Care Cantilever Crane Operator Name Role Phone Ricardo Freeman DO Primary Care Provider [phone] Reason for Visit * Reason Comments Establish Care Encounter Details Date Type Department Care Team (Late st Contact Info) Description 09/02/2025 3:00 PM CDT Office Visit [facility] Oncology and H[facility]ology - [place] [address] [facility] [address] [place] [address] Brodie Lao MD [address] [facility] [address] [place] [address] Chronic anemia (Primary Dx) Social History Tobacco Use Types Packs/Day Years Used Date Smoking Tobacco: Former Cigarettes 1 35 1 - 09/02/2015 Smokeless Tobacco: Never Alcohol Use Standard Drinks/Week Comments Never 0 (1 standard drink = 0.6 oz pur e alcohol) Comments Unknown Sex and Gender Information Value Date Recorded Sex Assigned at Not on file Legal Sex Female 3:54 PM CDT Gender Identity Not on file Sexual Orientation Not on file documented as of this encounter Last Filed Vital Signs Vital Sign Reading Time Taken Comments Blood Pressure 137/71 09/02/2025 2:58 PM CDT Pulse 75 09/02/2025 2:58 PM CDT Temperature 36.9 C (98.5 F) 09/02/2025 2:58 PM CDT Respiratory Rate 16 09/02/2025 2:58 PM CDT Oxygen Saturation 93% 09/02/2025 2:58 PM CDT Inhaled Oxygen Concentration - - Weight 64 kg (141 lb 3.2 oz) 09/02/2025 2:58 PM CDT Height 157.5 cm (5' 2) 09/02/2025 2:58 PM CDT Body Mass Index 25.83 09/02/2025 2:58 PM CDT documented in this encounter Progress Notes * Brodie Lao MD - 09/02/2025 3:04 PM CDT Hematology-oncology consult Note Requesting Physician Ricardo Freeman, DO Primary Care Physician Ricardo Freeman, DO Problem list There is no problem list on file for this patient. Previous TREATMENT ? Measurable Disease ? Reason for Visit Iza Gayle is a 69 y.o. female who was referred for consultation for chronic anemia. 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 She has been seen for chronic kidney disease. Patient also has a history of left lower extremity DVT diagnosed in 2014 and left lung PE diagnosed in 2016. She is on Plavix. Warfarin has been discontinued. Patient had EGD done on February 18, 2025 that showed gastritis. She denies any bleeding including melena hematochezia. She is complaining of tiredness and fatigue. She denies being a vegetarian. Denies any previous stomach surgeries. No other new complaints. Past Medical History Past Medical History: Diagnosis Date Hyperlipidemia Hypertension Malignant neoplasm (CMS/HCC) Kdiney Vascular disease Surgical History Past Surgical History: Procedure Laterality Date HX CATARACT REMOVAL HX GALLBLADDER SURGERY HX PARTIAL HYSTERECTOMY HX SHOULDER ARTHROSCOPY HX TUBAL LIGATION LITHOTRIPSY Medications Current Outpatient Medications Medication Sig Dispense Refill bumetanide (BUMEX) 0.5 mg tablet Take 1 mg by mouth 2 times daily. clopidogreL (PLAVIX) 75 mg Tablet Take 75 mg by mouth daily in the morning. folic acid (FOLVITE) 1 mg tablet Take 1,000 mcg by mouth. isosorbide mononitrate (IMDUR) 30 mg Extended Release 24 hour tablet Take 30 mg by mouth daily. nitroglycerin (NITROSTAT) 0.4 mg Tablet, Sublingual Place 0.4 mg under tongue. oxyBUTYnin (DITROPAN XL) 15 mg Extended Release 24 hour tablet Take 1 Tablet by mouth daily. ranolazine ER (RANEXA) 500 mg Extended Release 12 hour tablet Take 500 mg by mouth 2 times daily. rosuvastatin (CRESTOR) 40 mg tablet Take 40 mg by mouth. Stiolto Respimat 2.5-2.5 mcg/actuation metered inhaler INHALE 2 PUFFS BY MOUTH IN THE MORNING methenamine hippurate (HIPREX) 1 gram Tablet Take 1 Gram by mouth 2 times daily. albuterol sulfate HFA 90 mcg/actuation aerosol inhaler Take 2 Puffs by inhalation every 6 hours as needed for Wheezing. calcium as CARBONATE (TUMS) 500 mg (200 mg elemental) Tablet, Chewable Take 1,000 mg by mouth. acetaminophen (TYLENOL) 500 mg tablet Take 1,000 mg by mouth. carvediloL (COREG) 25 mg tablet Take 25 mg by mouth 2 times daily. felodipine (PLENDIL) 10 mg Extended Release 24 hour tablet Take 10 mg by mouth. lansoprazole (PREVACID) 15 mg Capsule, Delayed Release(E.C.) Take 15 mg by mouth. levothyroxine 88 mcg tablet Take 88 mcg by mouth. No current facility-administered medications for this visit. Allergies No Known Allergies Immunizations: There is no immunization history on file for this patient. Family History Family History Problem Relation Name Age of Onset Heart Disease Father No Known Problems Mother Heart Disease Brother Diabetes Brother Heart Disease Sister No Known Problems Child No Known Problems Child Heart Disease Child Social History Social History Tobacco Use Smoking status: Former Current packs/day: 0.00 Average packs/day: 1 pack/day for 35.0 years (35.0 ttl pk-yrs) Types: Cigarettes Start date: 09/02/1980 Quit date: 09/02/2015 Years since quittin.0 Smokeless tobacco: Never Substance Use Topics Alcohol use: Never Review of Systems Constitutional: Patient did not mention fever; no night sweats; no anorexia; no weight loss; complain of tiredness and fatigue NEENT: Patient did not mention headache; no change in vision; no change in hearing; no sore throat;no dysphagia Respiratory: Patient did not mention shortness of breath; no pleuritic chest pain; no cough; no hemoptysis Cardiac: Patient did not mention cardiac-like chest pain; no palpitations; no orthopnea; no PND; noDOE Breasts: Patient did not mention tenderness; no masses GI: Patient did not mention abdominal pain; no nausea; no vomiting; no diarrhea; no hematochezia; no melena : Patient did not mention dysuria; no frequency; no hesitancy; no hematuria SPECIAL PROJECTS MANAGER: Musculosketetal: Patient did not mention bone pain; no arthralgia; no joint swelling; no myalgia; Skin: Patient did not mention pruritis; no rash; no petechiae; no ecchymoses Endocrine: Patient did not mention polydipsia; no polyuria; no unusual weight gain Neuro: Patient did not mention headache; no change in vision; no sensory changes; no muscle weakness; no confusion; no seizures Psych: Patient did not mention anxiety; no depression; Physical Exam Vitals: As per nursing note Constitutional: Well developed, well nourished, no acute distress, non-toxic appearance Teeth and gum. No signs of infection or swelling. Eyes: PERRL, conjunctiva normal HEENT: Atraumatic, external ears normal, nose normal, oropharynx moist, no pharyngeal exudates. no sinus tenderness Neck- normal range of motion, no tenderness, supple Respiratory: No respiratory distress, normal breath sounds, no rales, no wheezing Cardiovascular: Normal rate, normal rhythm, no murmurs, no gallops, no rubs GI: Soft, nondistended, normal bowel sounds, nontender, no splenomegaly, no hepatomegaly, no mass, no rebound, no guarding : No costovertebral angle tenderness Musculoskeletal: No edema, no tenderness, no deformities. Back- no tenderness Integument: Well hydrated, no rash, Digits and nails inspection normal Lymphatic: No lymphadenopathy noted Neurologic: Alert & oriented x 3, CN 2-12 normal, normal motor function, normal sensory function, no focal deficits noted Psychiatric: Speech and behavior appropriate ? labs No results found for this or any previous visit (from the past 24 hours). Labs from August 01, 2025 showed WBC 10.2 hemoglobin 8.2 MCV 102.9 platelet 370,000 creatinine 1.8 GFR 30 Pathology ? Imaging & Other Studies Performance Status? Assessment / Plan: ? Chronic anemia. Patient is a 69-year-old female with multiple comorbidities including coronary artery disease status post stent placement, peripheral vascular disease, atrial fibrillation, hypertension, status post nephrectomy and splenectomy for retroperitoneal fibrosis in 2004, left lower extremity DVT and pulmonary embolism. Currently she is on Plavix and warfarin has been discontinued. She denies any bleeding and bruising. She denies being a vegetarian. EGD was performed in February 2025 that showed gastritis. Colonoscopy was not able to be completed. Her anemia is secondary to chronic kidney disease. I will order the workup for anemia that will include CBC with differential, CMP, iron profile, soluble transferrin receptor, vitamin B12 level, methylmalonic acid level and serum protein electrophoresis with immunofixation. Based on the results my plan will be to start her on Procrit 20,000 units on a biweekly basis for hemoglobin of less than 10. Currently she is not taking any iron supplements. I will follow-up with her in couple of weeks. I have answered all the questionsto patient's satisfaction. History of DVT and PE. Her initial DVT was in the left lower extremity diagnosed in 2014 and then pulm embolism in 2015. He was treated with warfarin and discontinued recently. She is also on Plavix for peripheral vascular disease. Her last Doppler studies done on February 2025 showed no evidence of lower extremity DVT. Chest CT from January 2025 also showed no evidence of pulmonary embolism. Chronic kidney disease. Patient will follow-up with Dr. Quintero. Hyperlipidemia. Patient is on Crestor. Peripheral vascular disease. Patient is on Plavix. Thank you very much for allowing me to participate in Iza Gayle's evaluation and management.Please feel free to contact if I can be of any further assistance in your patient???s care requiring hematology or oncology evaluation. Sincerely, ? ? Brodie Lao M.D. cell TOBACCO COUNSELING She is not a tobacco/nicotine user. Brodie Lao MD ,09/02/2025 3:24 PM ? Total time spent 60 minutes, two third of the total time spent counseling patient [id number]. CC:?Ricardo Freeman, DO documented in this encounter Plan of Treatment Upcoming Encounters Date Type Department Care Team (Late st Contact Info) Description 09/16/2025 4:30 PM [employer] Telephone Check Up [facility] Oncology and Hematology - [place] [address] [facility] [address] [place] [id number] Brodie Lao MD [address] [facility] [address] [place] [address] Scheduled Orders Name Type Priority Associated Diagnoses Orde r Schedule CBC WITH DIFFERENTIAL Lab Stat Chronic anemia Expected: 09/02/2025, Expires: 09/02/2026 COMPREHENSIVE METABOLIC PANEL Lab Stat Chronic anemia Expected: 09/02/2025, Expires: 09/02/2026 FERRITIN Lab Routine Chronic anemia Expected: 09/02/2025, Expires: 09/02/2026 IRON, TIBC, AND PERCENT SATURATION Lab Routine Chronic anemia Expected: 09/02/2025, Expires: 09/02/2026 METHYLMALONIC ACID Lab Routine Chronic anemia Expected: 09/02/2025, Expires: 09/02/2026 TRANSFERRIN RECEPTOR TFR SOLUBLE Lab Routine Chronic anemia Expected: 09/02/2025, Expires: 09/02/2026 VITAMIN B12 AND FOLATE Lab Routine Chronic anemia Expected: 09/02/2025, Expires: 09/02/2026 PROTEIN ELECTROPHORESIS W/REFLEX,SERUM Lab Routine Chronic anemia Expected: 09/02/2025, Expires: 09/02/2026 documented as of this encounter Visit Diagnoses Diagnosis Chronic anemia- Primary Anemia, unspecified documented in this encounter Care Teams Cantilever Crane Operator Relationship Specialty Start Date End Date Ricardo Freeman DO [address] [facility] [address] [place] [id number] PCP - General Internal Medicine 08/07/25 documented as of this encounter
[2025-09-02 15:43] LABS: Hematocrit 28.6 % (37.0-47.0); Hemoglobin 9.3 g/dL (12.0-15.0); Immature Granulocyte Percent A 0.3 % (0-0.5); Lymphocytes Absolute Auto 3.30 K/mm3 (0.9-3.2); Mean Corpuscular HGB Conc 32.5 g/dl (32-36); Mean Corpuscular Hemoglobin 34.3 pg (26-34); Mean Corpuscular Volume 105.5 fl (80-100); Nucleated Red Blood Cells Absolute Auto 0.000 K/mm3 (0.0-0.012); Nucleated Red Blood Cells Perc 0.0 % (0.0-0.2); Platelet Count Result 412 k/mm3 (150-375); Red Blood Count 2.71 M/mm3 (4.2-5.4); White Blood Count 10.1 K/mm3 (4.5-10.0)
[2025-09-02 16:36] LABS: Alanine Aminotransferase 13 U/L (6-35); Albumin Level 4.1 g/dL (3.5-5.1); Alkaline Phosphatase 94 U/L (38-126); Anion Gap 13 mmol/L (4-12); Aspartate Amino Transferase 22 U/L (14-36); Bilirubin,Total 0.4 mg/dL (0.2-1.3); Blood Urea Nitrogen 40 mg/dL (7-17); Calcium 9.5 mg/dL (8.4-10.2); Carbon Dioxide 19 mmol/L (22-30); Chloride 108 mmol/L (98-107); Estimated Glomerular Filt Rate 22; Glucose 109 mg/dL (65-110); Potassium 4.5 mmol/L (3.4-5.0); Sodium 140 mmol/L (137-145); Total Protein 8.2 g/dL (6.3-8.2)
[2025-09-02 16:37] LABS: Iron 67 ug/dL (37-170)
[2025-09-02 16:46] LABS: Percent Iron Saturation 26 % (20-50)
[2025-09-02 17:19] LABS: Ferritin 133.00 ng/mL (11.1-264)
[2025-09-02 17:49] LABS: Vitamin B12 415.0 pg/mL (239-931)
--- OUTSIDE RECORDS SUMMARY | 2025-09-02 19:23 | XMS_ITS | Encounter Summary ---
Author Organization [facility] Healthcare Address [address] [place] [address] Care Team Providers Care Porter Used Car Lot Name Role Phone Carlito Guerrero MD Primary Care Provider [phone] Ricardo Freeman DO Primary Care Provider [phone] Encounter Details Date Type Department Care Team (Late st Contact Info) Description 04/12/2018 Orders Only [facility] Health Information Management [address] [place] [address] Scanning, Provider Social History Tobacco Use Types Packs/Day Years Used Date Smoking Tobacco: Former Smokeless Tobacco: Never Alcohol Use Standard Drinks/Week Comments No 0 (1 standard drink = 0.6 oz pur e alcohol) Comments Unknown Sex and Gender Information Value Date Recorded Sex Assigned at Not on file Legal Sex Female 2:59 AM MANAGER PACU Gender Identity Not on file Sexual Orientation Not on file documented as of this encounter Plan of Treatment Not on file documented as of this encounter Procedures Procedure [...] Last Indicated Resolved Time 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 Needs negative urine cx and negative cultures from all open wounds. Sada An RN 11/29/2023 11/29/2023 documented as of this encounter Care Teams Porter Used Car Lot Relationship Specialty Start Date End Date Carlito Guerrero MD [address] [place] [address] PCP - General 03/07/17 06/18/24 Ricardo Freeman DO [address] [place] [address] PCP - General Internal Medicine 06/19/24 documented as of this encounter
--- OUTSIDE RECORDS SUMMARY | 2025-09-02 19:23 | XMS_ITS | Encounter Summary ---
Author Organization [facility] Healthcare Address [address] [place] [address] Care Team Providers Care Straw Hat Machine Operator Name Role Phone Carlito Guerrero MD Primary Care Provider [phone] Ricardo Freeman DO Primary Care Provider [phone] Encounter Details Date Type Department Care Team (Late st Contact Info) Description 05/04/2018 Orders Only [facility] Health Information Management [address] [place] [id number] Scanning, Provider Social History Tobacco Use Types Packs/Day Years Used Date Smoking Tobacco: Former Smokeless Tobacco: Never Alcohol Use Standard Drinks/Week Comments No 0 (1 standard drink = 0.6 oz pur e alcohol) Comments Unknown Sex and Gender Information Value Date Recorded Sex Assigned at Not on file Legal Sex Female 2:59 AM CHILD LIFE ASSISTANT Gender Identity Not on file Sexual Orientation [...] documented as of this encounter Care Teams Straw Hat Machine Operator Relationship Specialty Start Date End Date Carlito Guerrero MD [address] [place] [address] PCP - General 03/07/17 06/18/24 Ricardo Freeman DO [address] [place] [address] PCP - General Internal Medicine 06/19/24 documented as of this encounter
--- OUTSIDE RECORDS SUMMARY | 2025-09-02 19:23 | XMS_ITS | Encounter Summary ---
Author Organization [facility] Healthcare Address [address] [place] [address] Care Team Providers Care Quality Assurance Associate Name Role Phone Ricardo Freeman DO Primary Care Provider [phone] Encounter Details Date Type Department Care Team (Late Contact Info) Description 11/25/2024 Orders Only [facility] [place] [address] [place] [address] Scanning, Provider Social History Tobacco Use Types [...] on file Legal Sex Female 2:59 AM BUSINESS SOLUTIONS DIRECTOR Gender Identity Not on file Sexual [...] documented as of this encounter Care Teams Quality Assurance Associate Relationship Specialty Start Date End Date Ricardo Freeman DO PCP - General Internal Medicine 06/19/24 documented as of this encounter
--- OUTSIDE RECORDS SUMMARY | 2025-09-02 19:23 | XMS_ITS | Encounter Summary ---
Author Organization [facility] Healthcare Address [address] [place] [address] Care Team Providers Care Assistant Librarian Name Role Phone Ricardo Freeman DO Primary Care Provider [phone] Encounter Details Date Type Department Care Team (Late Contact Info) Description 01/27/2025 Orders Only [facility] Health Information Management [address] [place] [address] Scanning, Provider Social History Tobacco Use Types [...] on file Legal Sex Female 2:59 AM SENIOR PORTFOLIO MANAGER Gender Identity Not on file Sexual [...] documented as of this encounter Care Teams Assistant Librarian Relationship Specialty Start Date End Date Ricardo Freeman DO PCP - General Internal Medicine 06/19/24 documented as of this encounter
--- OUTSIDE RECORDS SUMMARY | 2025-09-02 19:23 | XMS_ITS | Encounter Summary ---
Author Organization [facility] Healthcare Address [address] [place] [address] Care Team Providers Care Core Winding Operator Name Role Phone Ricardo Freeman DO Primary Care Provider [phone] Encounter Details Date Type Department Care Team (Late Contact Info) Description 01/20/2025 Orders Only [facility] Health Information Management [address] [place] [address] Scanning, Provider Social History Tobacco Use Types [...] on file Legal Sex Female 2:59 AM GLASS SANDER Gender Identity Not on file Sexual Orientation [...] documented as of this encounter Care Teams Core Winding Operator Relationship Specialty Start Date End Date Ricardo Freeman DO PCP - General Internal Medicine 06/19/24 documented as of this encounter
--- OUTSIDE RECORDS SUMMARY | 2025-09-02 19:23 | XMS_ITS | Clinical Summary ---
Author Organization [facility] Address [address] [place] [address] Care Team Providers Care Kaia[place]ina Kura [place] Ma[place] Name Role Phone Ricardo Freeman DO Primary Care Provider [phone] Allergies No known active allergies Medications oxybutynin XL (DITROPAN XL) 15 mg 24 hr tablet take 1 tablet by oral route every day 0 0 01/20/20 16 Active levothyroxine (SYNTHROID) 88 mcg tablet Take 1 tablet (88 mcg total) by mouth seat maker before breakfast Active albuterol HFA (PROVENTIL HFA,VENTOLIN HFA,PROAIR HFA) 90 mcg/actuation inhaler Inhale 2 puffs every 6 (six) hours as needed for wheezing Active Stiolto Respimat 2.5-2.5 mcg/actuation inhaler Inhale 2 puffs every morning 04/08/20 22 Active folic acid (FOLVITE) 1 mg tablet Take 1 tablet (1,000 mcg total) by mouth every morning 12/06/19 23 Active carvediloL (COREG) 25 mg tablet Take 1 tablet (25 mg total) by mouth 2 (two) times a day with meals Active felodipine (PLENDIL) 10 mg 24 hr tablet Take 1 tablet (10 mg total) by mouth every morning Active methenamine (HIPREX) 1 gram tablet Take 1 tablet (1 g total) by mouth 2 (two) times a day 03/01/20 24 Active lansoprazole (PREVACID) 15 mg capsuleIndicat ions:GERD Take 1 capsule (15 mg total) by mouth daily as needed (GERD) Active isosorbide mononitrate ER (IMDUR) 30 mg 24 hr tabletIndicati ons:Coronary artery disease of [place] artery of [place] heart with stable angina pectoris Take 1 tablet (30 mg total) by mouth daily 30 tablet 11 11/01/20 24 025 Active Additional Information Patient taking differently:30 mg oralDaily (early AM), Indications: CAD, Informant: Self, Reported on 08/29/2025 nitroglycerin (NITROSTAT) 0.[address] 1 tablet (0.4 mg total) under the tongue every 5 (five) minutes as needed for chest pain (May repeat every 5 min up to 3 doses in 15 min.) 25 tablet 11 11/01/20 24 Active ranolazine ER (RANEXA) 500 mg 12 hr tabletIndicati ons:Coronary artery disease of [place] artery of [place] heart with stable angina pectoris Take 1 tablet by mouth twice daily 180 tablet 3 12/23/19 25 Active Additional Information Patient taking differently: 500 mg oral 2 times daily, Indications: Angina, Informant: Self, Reported on 08/29/2025 acetaminophen (TYLENOL) 500 mg tabletIndicati ons:Pain Take 2 tablets (1,000 mg total) by mouth every 6 (six) hours as needed for pain Active calcium carbonate (TUMS) 500 mg (200 mg elemental calcium) chewable tablet Take 2 tablet/chew tab (1,000 mg total) by mouth daily as needed for indigestion or heartburn Active bumetanide (BUMEX) 0.5 mg tablet Take 2 tablets (1 mg total) by mouth 2 (two) times a day 07/03/20 25 Active rosuvastatin (CRESTOR) 40 mg tabletIndicati ons:hyperlipid emia Take 1 tablet (40 mg total) by mouth seat maker before breakfast 90 tablet 1 08/18/20 25 Active clopidogreL (PLAVIX) 75 mg tablet TAKE 1 TABLET BY MOUTH IN THE MORNING 90 tablet 08/22/20 25 Active clopidogreL (PLAVIX) 75 mg tablet Take 1 tablet (75 mg total) by mouth every morning 90 tablet 3 05/24/20 24 025 Discontinued rosuvastatin (CRESTOR) 40 mg tablet Take 1 tablet by mouth once daily 90 tablet 2 07/22/20 24 025 Discontinued denosumab (Prolia) 60 mg/mL syringe Inject 1 mL (60 mg total) under the skin once 025 Discontinued(P atient Reported) traMADoL (ULTRAM) 50 mg tablet Take 1 tablet (50 mg total) by mouth every 6 (six) hours as needed for pain 06/20/20 25 025 Discontinued(P atient Reported) oxyCODONE (ROXICODONE) 5 mg immediate release tabletIndicati ons:Pain Take 1 tablet (5 mg total) by mouth every 4 (four) hours as needed for pain 10 tablet 08/02/20 025 Discontinued(P atient Reported) Active Problems Problem Noted Date Diagnosed Date History of incisional hernia repair 08/29/2025 Personal history of fall 08/29/2025 Recurrent incisional hernia with incarceration 1 12/19/2023 [...] therapy Assessment & Plan (12/21/2023 1:27 PM SANDFILL OPERATOR SURFACE): Continue risk factor modifications and continue annual [...] surveillance. Assessment & Plan (12/27/2022 8:50 AM SANDFILL OPERATOR SURFACE): Impression: Patient has a 3.3 cm infrarenal abdominal aortic aneurysm seen on a CT abdomen pelvis in September 2022. She remains asymptomatic. Plan: We will continue to monitor with an abdominal duplex in September. Chronic venous insufficiency 12/27/2022 Atherosclerosis of [place] ar teries of extremities with intermittent claudication, [...] therapy. 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 Sheldon in 2014. Patient denies any worsening symptoms of claudication, ischemic rest pain or ulcerations to her lower extremity. Plan: Patient to follow-up with an arterial duplex during her postop venous duplex scans. History of DVT (deep vein thrombosis) 11/29/2022 Assessment & Plan (11/29/2022 10:06 AM SANDFILL OPERATOR SURFACE): Impression: Patient has a history of a [...] 05/19/2023. Assessment & Plan (12/27/2022 8:59 AM SANDFILL OPERATOR SURFACE): Impression: Patient continues to complain of pain [...] procedure. Assessment & Plan (11/29/2022 10:00 AM SANDFILL OPERATOR SURFACE): Impression: Patient complains of pain to left [...] artery disease of n ative artery of [place] heart with stable angina pectoris 10/01/2015 Overview (02/17/2017): Coronary artery disease Preoperative state 02/20/2015 Overview (02/17/2017): Pre-operative cardiovascular examination Hypertension 02/20/2015 Overview (02/17/2017): Hypertension Assessment & Plan (07/11/2025 11:21 AM CDT): Chronic. Continue carvedilol felodipine isosorbide Assessment & Plan (06/21/2023 11:15 AM CDT): Stable continue lisinopril 10 mg. Assessment & Plan (12/27/2022 9:05 AM SANDFILL OPERATOR SURFACE): Impression: Chronic hypertension. Plan: Continue Coreg and lisinopril. Assessment & Plan (11/29/2022 10:32 AM SANDFILL OPERATOR SURFACE): Impression: Chronic hypertension, controlled with Coreg and [...] needed. Assessment & Plan (12/27/2022 8:48 AM SANDFILL OPERATOR SURFACE): Impression: Patient has mild bilateral internal carotid arteries. She remains asymptomatic. Plan: Patient has mild carotid stenosis seen on duplex. No longer require surveillance. Follow up as needed. Encourage patient to notify the office or present to the ED if she experiences stroke-like symptoms. Patient voices understanding. 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 Patient requesting the office to monitor. Patient denies any new focal or lateralizing neurological defects, amaurosis fugax, or speech disturbances at this time. Plan: We will obtain carotid duplex for further evaluation have patient follow- up in 2 weeks. Atherosclerosis of aorta ([facility]/HCC) 12/26/2011 12/27/2022 Encounters Date Type Department Care Team Description 08/29/2025 9:30 AM CDT Office Visit [facility]) - [facility] Minimally Invasive Surgery [address] [place] [address] 12th Floor, [place] [address] Linsey Esquivel NP History of incisional hernia repair (Primary Dx); Recurrent incisional hernia; Personal history of fall 08/25/2025 10:52 AM CDT - 08/25/2025 11:59 PM CDT Hospital Encounter [facility] Medical Office Building [address] [place] [id number] Atherosclerosis of [place] arteries of extremities with intermittent claudication, bilateral legs Discharge Disposition: Discharge to home or self care 08/25/2025 10:52 AM CDT - 08/25/2025 11:59 PM CDT Hospital Encounter [facility] Office Building [address] [place] [address] Atherosclerosis of [place] arteries of extremities with intermittent claudication, bilateral legs Discharge Disposition: Discharge to home or self care 07/31/2025 2:09 PM CDT Anesthesia Event [facility] Operating Room [address] [place] [address] Dana Perez DO Lentz, William Thomas, NP 07/31/2025 12:20 PM CDT - 07/31/2025 5:35 PM CDT Surgery [facility] Operating Room [address] [place] [address] Jorge Manning MD Robotic lysis of adhesions 07/31/2025 10:01 AM CDT - 08/02/2025 12:16 PM CDT Hospital Encounter [facility] 1 [facility] [place] [address] Jorge Manning MD Recurrent incisional hernia with incarceration [K43.0] (Primary Dx) Discharge Disposition: Discharge to home or self care 07/30/2025 Telephone [facility] Minimally Invasive Surgery [address] [facility] Medical Office Building [address] [place] [phone] Jorge Manning MD Surgery Confirmation 07/25/2025 Telephone [facility] Minimally Invasive Surgery [address] [place] [address] 12th Floor, [place] [phone] Kiara Reeder RN 07/23/2025 9:30 AM CDT Pre-Admission Testing [facility] for Preoperative Assessment and Planning [facility] ([facility]) [address] [place] [address] Preoperative testing (Primary Dx) 07/10/2025 Orders Only [facility] Group Vascular and Vein Surgery [address] [place] [address] [address] [place] [address] Katarzyna Pereira MD Infrarenal abdominal aortic aneurysm (AAA) without rupture (Primary Dx); Atherosclerosis of [place] arteries of extremities with intermittent claudication, bilateral legs 07/09/2025 2:00 PM CDT Office Visit [facility] Vascular and Vein Surgery [address] [place] [address] [address] [place] [address] Kathryn Chen NP Infrarenal abdominal aortic aneurysm (AAA) without rupture (Primary Dx); Atherosclerosis of [place] arteries of extremities with intermittent claudication, bilateral legs; Bilateral lower extremity edema; Primary hypertension; Hyperlipidemia LDL goal <70 07/08/2025 8:00 AM CDT - 07/08/2025 11:59 PM CDT Hospital Encounter [facility] Medical Office Building [address] [place] [address] [address] [place] [address] Infrarenal abdominal aortic aneurysm (AAA) without rupture Discharge Disposition: Discharge to home or self care from Last 3 Months Immunizations Immunization Administration [...] retroperitoneal fibrosis, status post left nephrec; Comments: [facility] 02/20/2015 - Hx Other Medical glaucoma, JANNY, obesity, hypercholesterolemia, dent; Comments: [facility] 02/20/2015 - Hypertension HLD (hyperlipidemia) Sleep [...] Not Answered Alcohol Use Standard Drinks/Week Comments Never 0 (1 standard drink = 0.6 oz pur e alcohol) AUDIT-C Answer Date Recorded Q1: How often do you have a drink containing alcohol? Never 07/31/2025 Q2: How many drinks containi ng alcohol do you have on a typical day when you are drinking? Patient does not drink Q3: How often do you have si x or more drinks on one occasion? Never 07/31/2025 Personal Safety Answer Date Recorded Have you ever been in or are you currently in a harmful physical or emotional relationship or is someone making you feel afraid or unsafe? Denies 07/31/2025 Comments No Sex and Gender Information Value Date Recorded Sex Assigned at Not on file Legal Sex Female 2:59 AM SANDFILL OPERATOR SURFACE Gender Identity Not on file Sexual Orientation Not on file Obstetrics History Last Filed Vital Signs Vital Sign Reading Time Taken Comments Blood Pressure 134/69 08/29/2025 9:09 AM CDT Pulse 64 08/29/2025 9:09 AM CDT Temperature 36.7 C (98.1 F) 08/29/2025 9:09 AM CDT Respiratory Rate 16 08/02/2025 7:13 AM CDT Oxygen Saturation 98% 08/29/2025 9:09 AM CDT Inhaled Oxygen Concentration - - Weight 64.4 kg (142 lb) 08/29/2025 9:09 AM CDT Height 157.5 cm (5' 2) 08/29/2025 9:09 AM CDT Body Mass Index 25.97 08/29/2025 9:09 AM CDT Plan of Treatment Health Maintenance Due Date Last Done Comments Breast Cancer Screening-Mammogram 1955 Depression Screening 1955 Hepatitis C Screening 1955 Osteoporosis Screening-Bone Density Scan 1955 Meningococcal B Vaccine (1 o f 4 - Increased Risk) 1966 Hepatitis B Screening 1974 Well Visit 65+ 2021 Pneumococcal vaccine 65+ (3 of 3 - PCV20 or PCV21) 11/29/2022 11/29/2017, 11/29/2017, 11/16/2016 Influenza Vaccine (#1) 2025 , 08/24/2022, 10/01/2021, Additional history exists Fall Risk Assessment 08/02/2026 08/02/2025, 08/21/20 Colon Cancer Screening-Colonoscopy 01/30/2027 01/30/2017 DTaP/Tdap/Td Vaccine (3 - Td or Tdap) 05/03/2032 05/03/2022, 06/23/2015 Colon Cancer Screening-CT Colonography Discontinued 01/30/2017 Colon Cancer Screening-DNA Stool Discontinued 01/31/20 Colon Cancer Screening-FIT Discontinued 01/30/2017 Colon Cancer Screening-Sigmoidoscopy Discontinued 01/30/2017 Zoster Vaccine Completed 05/03/2022, 10/13, 08/08/2018 Medical Devices Implanted Type Area Laboratory Equipment Installer Device Identifier Shelf Expiration Date Model / Serial / Lot Graft Graft Femoral Description:2014 [employer] Mesh Surgical Tissue Synthetic Duramesh 4.1mm Polypropylene Msi-501 - [id number] Implanted:Qty: 1 on 07/31/2025 by Jogre Manning MD at [facility] [employer] [id number] 02/14/2030 MSI-5 01 / / [id number] Stent Implanted:Qty: 1 Stent Coronary Artery Description:2014 Procedures Procedure Name Priority Date/Time Associated Diagnosis Comments US PHIL Schedule Routine, Read Routine (OP Routine) 08/25/2025 12:10 PM CDT Atherosclerosis of [place] arteries of extremities with intermittent claudication, bilateral legs US ARTERIAL DUPLEX LOWER EXTREMITY BILATERAL Schedule Routine, Read Routine (OP Routine) 08/25/2025 12:09 PM CDT Atherosclerosis of [place] arteries of extremities with intermittent claudication, bilateral legs EGFR Routine 08/01/2025 11:31 PM CDT PHOSPHORUS Routine 08/01/2025 11:31 PM CDT BASIC METABOLIC PANEL Routine 08/01/2025 11:31 PM CDT MAGNESIUM Routine 08/01/2025 11:31 PM CDT CBC WITHOUT DIFFERENTIAL Routine 08/01/2025 11:31 PM CDT URINE CULTURE Routine 08/01/2025 10:15 AM CDT EGFR Routine 07/31/2025 9:49 PM CDT MAGNESIUM Routine 07/31/2025 9:49 PM CDT BASIC METABOLIC PANEL Routine 07/31/2025 9:49 PM CDT CBC WITHOUT DIFFERENTIAL Routine 07/31/2025 9:49 PM CDT POCT GLUCOSE DEVICE Routine 07/31/2025 5 :08 PM CDT MD AN PROCEDURE PLACEHOLDER Routine 07/31/2025 2:45 PM CDT MD AN PROCEDURE PLACEHOLDER Routine 07/31/2025 2:42 PM CDT MD AN ELECTIVE ENDOTRACHEAL AIRWAY Routine 07/31/2025 2:42 PM CDT REPAIR INCISIONAL HERNIA 07/31/2025 2:09 PM CDT Recurrent incisional hernia with incarceration Case Notes 03/10- patient was recently hospitalized for other health issues so we are going to postpone her surgery per Jana via case msg (EF) 12/27- Case is approved to run late per Dr. Hoover via email(EF) Special Needs Mesh XI REPAIR INCISIONAL HERNIA - LAPAROSCOPIC ROBOTIC ASSISTED 07/31/2025 2:09 PM CDT Recurrent incisional hernia with incarceration Case Notes 03/10- patient was recently hospitalized for other health issues so we are going to postpone her surgery per Jana via case msg (EF) 12/27- Case is approved to run late per Dr. Hoover via email(EF) Special Needs Mesh PROTIME-INR STAT 07/31/2025 11:11 AM CDT EGFR Routine 07/23/2025 11:37 AM CDT Preoperative testing DIFFERENTIAL AUTO Routine 07/23/2025 11:37 AM CDT Preoperative testing COMPREHENSIVE METABOLIC PANEL Routine 07/23/2025 11:37 AM CDT Preoperative testing CBC WITH AUTO DIFFERENTIAL Routine 07/23/2025 11:37 AM CDT Preoperative testing TYPE AND SCREEN 14 DAY Routine 07/23/2025 11:37 AM CDT Preoperative testing ECG 12-LEAD Routine 07/23/2025 10:26 AM CDT Preoperative testing US DUPLEX SCAN OF AORTA: INFERIOR VENA CAVA, ILIAC, COMPLETE Routine 07/08/2025 9:02 AM CDT Infrarenal abdominal aortic aneurysm (AAA) without rupture CT VIRTUAL COLONOSCOPY DIAGNOSTIC W CONTRAST Routine 01/30/2017 2:38 PM CDT from Last 3 Months or Most Recently Relevant to Health Maintenance Results * US PHIL (08/25/2025 12:10 PM CDT) Anatomical Region Laterality Modality Vascular N/A Ultrasound 08/25/2025 10:5 8 AM CDT Narrative 08/27/2025 9:50 AM CDT Lower Extremity Arterial Doppler Report Patient Name: GENARO GAYLE M : 1955 Study Date: 08/25/2025 10:58:00 AM Sex: F Vacation Sales Advisor: JANET MCFARLANE RVT Ref Provider: KATARZYNA PEREIRA Quality: Adequate Order Provider: KATARZYNA PEREIRA PROCEDURES: Arterial Report: Ankle - Brachial Index Doppler exam. INDICATIONS: I70.213 Atherosclerosis of [place] arteries of extremities with intermittent claudication, bilateral legs. HISTORY: History of prior intervention on S/P Right to left FEM-FEM BPG 2014. COMPARISONS: The previous exam was completed on 12/30/24. Compared to prior NO SIGNIFIGANT CHANGE. MEASUREMENTS: Right Value Left Value Rt Brachial Pressure 144 mmHg Lt Brachial Pressure 140 mmHg Rt IMMUNOCHEMIST Pressure 210 mmHg Lt IMMUNOCHEMIST Pressure 165 mmHg Rt DPA Pressure 197 mmHg Lt DPA Pressure 173 mmHg Rt PT PHIL Resting 1.46 Lt PT PHIL Resting 1.15 Rt DP PHIL Resting 1.37 Lt DP PHIL Resting 1.2 FINDINGS: Right Posterior Tibial Artery Analysis: The posterior tibial waveform is triphasic. Right Dorsalis Pedis Artery Analysis: The dorsalis pedis waveform is biphasic. Dampened DP waveform due to 3-4+ pitting edema. Left Posterior Tibial Artery Analysis: The posterior tibial waveform is triphasic. Left Dorsalis Pedis Artery Analysis: The dorsalis pedis waveform is biphasic. Lt DP probably dampened due to 3-4 + pitting edema. - CONCLUSIONS: 1. Ankle-brachial index of >1.3 is non-compressible which is consistent with arterial calcifications, thus the ankle/brachial index is not obtainable in the right lower extremity. 2. Ankle-brachial index of 0.9-1.3 is within normal limits in the left lower extremity. 3. There is evidence of right leg arterial insufficiency at the level of anterior tibial artery. ATTESTATION: I have reviewed and interpreted the pertinent images and measurements of this study. I attest to the conclusions in the final report that is provided above. Electronically Signed By: Katarzyna Pereira MD 08/27/2025 9:16:30 AM CDT Procedure Note Katarzyna Pereira MD - 08/27/2025 Lower Extremity Arterial Doppler Report Patient Name: GENARO GAYLE M : 1955 Study Date: 08/25/2025 10:58:00 AM Sex: F Vacation Sales Advisor: JANET MCFARLANE RVT Ref Provider: KATARZYNA PEREIRA Quality: Adequate Order Provider: KATARZYNA PEREIRA PROCEDURES: Arterial Report: Ankle - Brachial Index Doppler exam. INDICATIONS: I70.213 Atherosclerosis of [place] arteries of extremities withintermittent claudication, bilateral legs. HISTORY: History of prior intervention on S/P Right to left FEM-FEM BPG 2014. COMPARISONS: The previous exam was completed on 12/30/24. Compared to prior NOSIGNIFIGANT CHANGE. MEASUREMENTS: Right Value Left Value Rt Brachial Pressure 144 mmHg Lt Brachial Pressure 140 mmHg Rt IMMUNOCHEMIST Pressure 210 mmHg Lt IMMUNOCHEMIST Pressure 165 mmHg Rt DPA Pressure 197 mmHg Lt DPA Pressure 173 mmHg Rt PT PHIL Resting 1.46 Lt PT PHIL Resting 1.15 Rt DP PHIL Resting 1.37 Lt DP PHIL Resting 1.2 FINDINGS: Right Posterior Tibial Artery Analysis: The posterior tibial waveform is triphasic. Right Dorsalis Pedis Artery Analysis: The dorsalis pedis waveform is biphasic. Dampened DP waveform due to 3-4+pitting edema. Left Posterior Tibial Artery Analysis: The posterior tibial waveform is triphasic. Left Dorsalis Pedis Artery Analysis: The dorsalis pedis waveform is biphasic. Lt DP probably dampened due to3-4 + pitting edema. - CONCLUSIONS: 1. Ankle-brachial index of >1.3 is non-compressible which is consistentwith arterial calcifications, thus the ankle/brachial index is not obtainable in theright lower extremity. 2. Ankle-brachial index of 0.9-1.3 is within normal limits in the leftlower extremity. 3. There is evidence of right leg arterial insufficiency at the level ofanterior tibial artery. ATTESTATION: I have reviewed and interpreted the pertinent images and measurements ofthis study. I attest to the conclusions in the final report that is provided above. Electronically Signed By: Katarzyna Pereira MD 08/27/2025 9:16:30 AM CDT us Katarzyna Pereira MD IMG US PROCEDURES Final Result * US Arterial Duplex Lower Extremity Bilateral (08/25/2025 12:09 PM CDT) Anatomical Region Laterality Modality Vascular Bilateral Ultrasound 08/25/2025 11:2 2 AM CDT Narrative 08/25/2025 1:18 PM CDT Lower Extremity Arterial Duplex Report Patient Name: GENARO GAYLE M : 1955 (69y 10m) Sex: F Study Date: 08/25/2025 11:22:10 AM Ht(Inch): Wt(Lb): BSA: Vacation Sales Advisor: MAEVE GONZALES Provider: KATARZYNA PEREIRA Quality: Adequate Ref Provider: KATARZYNA PEREIRA PROCEDURES: Arterial Report: A non-invasive vascular imaging study of the bilateral lower extremity arteries and bypass grafts was performed using B-mode ultrasound, color flow, and spectral Doppler. INDICATIONS: I70.213 Atherosclerosis of [place] arteries of extremities with intermittent claudication, bilateral legs. HISTORY: The patient had a previous vascular surgery on S/P Rt to Left FEM-FEM BPG 2014. COMPARISONS: The previous exam was completed on 12/30/24. Compared to prior NO CHANGE. GRAFTS: Left Value Lt BPG Outflow PSV 151.67 cm/sec GRAFT: Vessel Value Location RT to LT FEM-FEM Rt Inflow PSV 240/26 cm/sec Rt Anast Prx PSV 143.00 cm/sec Prx Graft PSV 131.00 cm/sec Mid Graft PSV 125.00 cm/sec Dst Graft PSV 146.00 cm/sec Lt Anast Dst PSV 187.00 cm/sec Lt Outflow PSV 152.00 cm/sec FINDINGS: Left: FEM FEM PATENT. LEFT SFA 134, LEFT PFA 119. CONCLUSION: 1. Patent right to left femoral artery to femoral artery bypass. No significant stenosis. ATTESTATION: I have reviewed and interpreted the pertinent images and measurements of this study. I attest to the conclusions in the final report that is provided above. Electronically Signed By: Katarzyna Pereira MD 08/25/2025 1:16:35 PM CDT Procedure Note Katarzyna Pereira MD - 08/25/2025 Lower Extremity Arterial Duplex Report Patient Name: GENARO GAYLE M : 1955 (69y 10m) Sex: F Study Date: 08/25/2025 11:22:10 AM Ht(Inch): Wt(Lb): BSA: Vacation Sales Advisor: MAEVE GONZALES Provider: KATARZYNA PEREIRA Quality: Adequate Ref Provider: KATAZRYNA PEREIRA PROCEDURES: Arterial Report: A non-invasive vascular imaging study of the bilaterallower extremity arteries and bypass grafts was performed using B-mode ultrasound, colorflow, and spectral Doppler. INDICATIONS: I70.213 Atherosclerosis of [place] arteries of extremities withintermittent claudication, bilateral legs. HISTORY: The patient had a previous vascular surgery on S/P Rt to Left FEM-FEM [id number]. COMPARISONS: The previous exam was completed on 12/30/24. Compared to prior NO CHANGE. GRAFTS: Left Value Lt BPG Outflow PSV 151.67 cm/sec GRAFT: Vessel Value Location RT to LT FEM-FEM Rt Inflow PSV 240/26 cm/sec Rt Anast Prx PSV 143.00 cm/sec Prx Graft PSV 131.00 cm/sec Mid Graft PSV 125.00 cm/sec Dst Graft PSV 146.00 cm/sec Lt Anast Dst PSV 187.00 cm/sec Lt Outflow PSV 152.00 cm/sec FINDINGS: Left: FEM FEM PATENT. LEFT SFA 134, LEFT PFA 119. CONCLUSION: 1. Patent right to left femoral artery to femoral artery bypass. Nosignificant stenosis. ATTESTATION: I have reviewed and interpreted the pertinent images and measurements ofthis study. I attest to the conclusions in the final report that is provided above. Electronically Signed By: Katarzyna Pereira MD 08/25/2025 1:16:35 PM CDT us Katarzyna Pereira MD IM US PROCEDURES Final Result * (ABNORMAL) eGFR (08/01/2025 11:31 PM CDT) eGFR 30(L) >=60 mL/min/1. 73 m2 Comment: Interpretive Data [...] interpretive data was last reviewed 2021. Blood 08/01/2025 11:3 1 PM CDT 08/02/2025 12:38 AM CDT Julianne Flores NP LAB BLOOD ORDERABLES Fin al Result [facility] Department [place] [address] * (ABNORMAL) CBC without differential (08/01/2025 11:31 PM CDT) WBC 10.25(H) 3.80 - 9.90 K/cumm Hgb 8.2(L) 11.9 - 15.5 g/dL [facility] Hct 25.0(L) 35.6 - 45.5 % [facility] Plt 370 150 - 400 K/cumm [facility] MPV 9.9 9.1 - 12.3 fL [facility] RBC 2.43(L) 3.90 - 5.20 M/cumm [facility] MCV 102.9(H) 81.3 - 96.4 fL [facility] MCH 33.7(H) 27.1 - 33.3 pg [facility] MCHC 32.8 32.3 - 35.7 g/dL [facility] RDW CV 13.5 11.1 - 14.9 % [facility] RDW SD 50.9(H) 35.7 - 48.1 fL [facility] NRBC abs 0.00 0.00 - 0.01 K/cumm [facility] Blood 08/01/2025 11:3 1 PM CDT 08/02/2025 12:38 AM CDT Julinane Flores NP LAB BLOOD ORDERABLES Fin al Result [facility] Department [place] [address] * Phosphorus (08/01/2025 11:31 PM CDT) Phosphorus, pl 3.4 2.3 - 4.5 mg/dL Blood 08/01/2025 11:3 1 PM CDT 08/02/2025 12:38 AM CDT Julianne Flores OFFICE CLIN ASST LAB BLOOD ORDERABLES Fin al Result [facility] Department [place] [address] * Magnesium (08/01/2025 11:31 PM CDT) Magnesium 1.7 1.4 - 2.5 mg/dL Blood 08/01/2025 11:3 1 PM CDT 08/02/2025 12:38 AM CDT Julianne Flores NP LAB BLOOD ORDERABLES Fin al Result Performing Organization Address City/[facility]/ZIP Co de Phone Number ELVIN HARTMAN [facility] Department [place] [address] * (ABNORMAL) Basic metabolic panel (08/01/2025 11:31 PM CDT) Sodium 138 135 - 145 mmol/L Potassium, pl 4.3 3.3 - 4.9 mmol/L [facility] Comment:Hemolyzed; Potassium value may be falsely elevated by as much as 0.3-0.5 mmol/L. Suggest redraw and reanalysis. Chloride 108 97 - 110 mmol/L [facility] CO2 23 22 - 32 mmol/L [facility] Anion gap 7 2 - 15 mmol/L [facility] BUN 30(H) 6 - 25 mg/dL [facility] Creatinine 1.80(H) 0.60 - 1.10 mg/dL [facility] Glucose 101 70 - 199 mg/dL [facility] Comment: Interpretive Data Fasting glucose [...] interpretive data was last revised 2022. Calcium 7.9(L) 8.5 - 10.3 mg/dL [facility] Blood 08/01/2025 11:3 1 PM CDT 08/02/2025 12:38 AM CDT Julianne Flores NP LAB BLOOD ORDERABLES Fin al Result Performing Organization Address City/[facility]/ZIP Co de Phone Number ELVIN HARTMAN [facility] Department [place] [address] * Urine culture Urine, indwelling catheter (08/01/2025 10:15 AM CDT) Report Final Report: Less than 100,000 colonies/mL (clinically insignificant growth based on current clinical standards) Organism (CLINICALLY INSIGNIFICANT GROWTH [facility] Urine, indwelling catheter 08/01/2025 10:15 AM CDT 08/01/2025 1:07 PM CDT Narrative [facility] - 08/02/2025 2:04 PM CDT Indications for Culture:->Other (specify) Other Indication:->cleearance of isolation Testing performed by [facility] ([phone]) Julianne Flores NP LAB MICROBIOLOGY - [facility] ORDERABLES Final Result [facility] Department [place] [address] * (ABNORMAL) eGFR (07/31/2025 9:49 PM CDT) eGFR 27(L) >=60 mL/min/1. 73 m2 Comment: Interpretive Data [...] interpretive data was last reviewed 2021. Blood 07/31/2025 9:49 PM CDT 08/01/2025 12:28 AM CDT Jorge Manning MD LAB BLOOD ORDERABLES Fin al Result Performing Organization Address [facility] de Phone Number [facility] Department [place] [address] * (ABNORMAL) CBC without differential (07/31/2025 9:49 PM CDT) Pathologist [facility] WBC 9.70 3.80 - 9.90 K/cumm Hgb 8.5(L) 11.9 - 15.5 g/dL [facility] Hct 27.3(L) 35.6 - 45.5 % [facility] Plt 378 150 - 400 K/cumm [facility] MPV 9.8 9.1 - 12.3 fL [facility] RBC 2.58(L) 3.90 - 5.20 M/cumm [facility] MCV 105.8(H) 81.3 - 96.4 fL [facility] MCH 32.9 27.1 - 33.3 pg [facility] MCHC 31.1(L) 32.3 - 35.7 g/dL [facility] RDW CV 13.5 11.1 - 14.9 % [facility] RDW SD 52.2(H) 35.7 - 48.1 fL [facility] NRBC abs 0.00 0.00 - 0.01 K/cumm [facility] Blood 07/31/2025 9:49 PM CDT 08/01/2025 12:25 AM CDT Jorge Manning MD LAB BLOOD ORDERABLES Fin al Result Performing Organization Address [facility] Co de Phone Number [facility] Department [place] [address] * Magnesium (07/31/2025 9:49 PM CDT) Pathologist [facility] Magnesium 1.8 1.4 - 2.5 mg/dL Blood 07/31/2025 9:49 PM CDT 08/01/2025 12:28 AM CDT Jorge Manning MD LAB BLOOD ORDERABLES Fin al Result Performing Organization Address City/[facility] Co de Phone Number [facility] Department [place] [address] * (ABNORMAL) Basic metabolic panel (07/31/2025 9:49 PM CDT) Pathologist [facility] Sodium 139 135 - 145 mmol/L Potassium, pl 4.4 3.3 - 4.9 mmol/L [facility] Chloride 108 97 - 110 mmol/L [facility] CO2 21(L) 22 - 32 mmol/L [facility] Anion gap 10 2 - 15 mmol/L [facility] BUN 34(H) 6 - 25 mg/dL [facility] Creatinine 1.99(H) 0.60 - 1.10 mg/dL [facility] Glucose 103 70 - 199 mg/dL [facility] Comment: Interpretive Data Fasting glucose [...] interpretive data was last revised 2022. Calcium 8.3(L) 8.5 - 10.3 mg/dL [facility] Blood 07/31/2025 9:49 PM CDT 08/01/2025 12:28 AM CDT Jorge Manning MD LAB BLOOD ORDERABLES Fin al Result Performing Organization Address [facility] de Phone Number [facility] Department [place] [address] * POCT glucose (07/31/2025 5:08 PM CDT) Glucose, POC 132 70 - 199 mg/dL Blood 07/31/2025 5:08 PM CDT 07/31/2025 5:08 PM CDT Jorge Manning MD LAB POCT ORDERABLES - DE VICE Final Result ELVIN CAMPA [facility] [place] [address] * MD AN PROCEDURE PLACEHOLDER (07/31/2025 2:45 PM CDT) Yesica Slaughter RN - 07/31/2025 2:45 PM CDT Yesica Simpson RN 07/31/2025 2:46 PM Peripheral IV Catheter Patient location: OR Staff: Supervising provider: Adriana Navarro MD Preprocedure prep: Prep solution: chlorhexadine PPE: gloves and provider hat/mask PIV line: Laterality: left Site: forearm Catheter size: 18 g Technique: direct visualization Procedure details: good blood return Number of attempts: 1 Result [facility] Adriana Navarro MD ANESTHESIA ORDERABLES F inal Result * MD AN ELECTIVE ENDOTRACHEAL AIRWAY, MD AN PROCEDURE PLACEHOLDER (07/31/2025 2:42 PM CDT) Yesica Slaughter RN - 07/31/2025 2:42 PM CDT Yesica Simpson RN 07/31/2025 2:45 PM Airway Patient location: OR Urgency: elective Date/time: 07/31/2025 2:25 PM Indications for airway management: anesthesia Difficult airway: no Staff: Supervising provider: Adriana Navarro MD Placed by: Other staff: Yesica Simpson RN Emergent airway documentation: Risks and benefits discussed: yes Consent obtained: yes Consent given by: patient Airway prep: Preoxygenated: yes Patient position: sniffing Mask difficulty assessment: 2 - vent by mask + OA or adjuvant Spontaneous ventilation during airway: absent Sedation level during airway: GA Final airway details: Final airway type: endotracheal airway Tube type: ETT ETT size: 7.5 mm Cuffed: yes Technique used for successful ETT placement: video laryngoscopy Devices/Methods used in placement: stylet Insertion site: oral Blade type: Mayda Video blade type: Diaz Blade size: 3 Cormack-Lehane (video): grade I - full view of glottis Cuff volume: 8 mL Cuff inflated with: air Placement verified by: auscultation and CO2 detection Airway secured with: silk tape Number of attempts: 1 Ventilation between attempts: 2 hand mask us Adriana Navarro MD ANESTHESIA ORDERABLES E dited Result - Final * Protime-INR (07/31/2025 11:11 AM CDT) PT 10.6 10.2 - 13.5 sec INR 0.94 0.90 - 1.20 ELVIN [facility] Comment: Interpretive data Oral anticoagulant therapeutic ranges: Venous thromboembolism prophylaxis or treatment: 2.0-3.0 CARDIOLOGY Standard range: 2.0-3.0 High-intensity range: 2.5-3.5 Refer to indication-specific guidelines for appropriate target ranges for prosthetic heart valve replacement. Current interpretive data was last revised on 2019. Blood 07/31/2025 11:1 1 AM CDT 07/31/2025 11:19 AM CDT us Corey Stanley NP LAB BLOOD ORDERABLES Fin al Result [facility] Department [place] [address] * TYPE AND SCREEN 14 DAY (07/23/2025 11:37 AM CDT) Fabiano, indirect Negative ABO Rh O Positive ELVIN [facility] Blood 07/23/2025 11:3 7 AM CDT 07/23/2025 12:23 PM CDT Narrative ELVIN HARTMAN - 07/23/2025 1:31 PM CDT Is this test being ordered in advance for a procedure?->Yes Expected date of procedure:->07/31/25 Has the patient been transfused in the past 3 months?->No Has the patient been in the past 3 months?->No Olga Pinon NP LAB BLOOD BANK TEST ORD ERABLES Final Result Performing Organization Address [facility] Co de Phone Number [facility] [place] [address] * (ABNORMAL) eGFR (07/23/2025 11:37 AM CDT) Pathologist [facility] eGFR 25(L) >=60 mL/min/1. 73 m2 Comment: Interpretive Data [...] of Race in Diagnosing Kidney Disease, JASN 202). The CKD-EPI equation should not be used for patients with unstable renal function and has not been validated in children and those over 70. Current interpretive data was last reviewed 2021. Blood 07/23/2025 11:3 7 AM CDT 07/23/2025 12:26 PM CDT Olga Pinon NP LAB BLOOD ORDERABLES Fi nal Result Performing Organization Address [facility] Co de Phone Number [facility] [place] [address] * (ABNORMAL) Differential, auto (07/23/2025 11:37 AM CDT) Neutrophil abs 5.95 1.50 - 6.50 K/cumm Imm gran abs 0.05 0.00 - 0.10 K/cumm [facility] Lymphocyte abs 2.81 0.80 - 3.30 K/cumm [facility] Monocyte abs 0.93(H) 0.20 - 0.80 K/cumm [facility] Eosinophil abs 0.18 0.00 - 0.50 K/cumm [facility] Basophil abs 0.02 0.00 - 0.10 K/cumm [facility] Neutrophil pct 59.8 % [facility] Comment: Interpretive Data Percent cell count reference ranges are not reported, since discordance with absolute values may lead to misinterpretation of CBC data. Current Interpretive Data was last revised on 2018. Imm gran pct 0.5 % [facility] Comment: Interpretive Data Percent cell count reference ranges are not reported, since discordance with absolute values may lead to misinterpretation of CBC data. Current Interpretive Data was last revised on 2018. Lymphocyte pct 28.3 % [facility] Comment: Interpretive Data Percent cell count reference ranges are not reported, since discordance with absolute values may lead to misinterpretation of CBC data. Current Interpretive Data was last revised on 2018. Monocyte pct 9.4 % [facility] Comment: Interpretive Data Percent cell count reference ranges are not reported, since discordance with absolute values may lead to misinterpretation of CBC data. Current Interpretive Data was last revised on 2018. Eosinophil pct 1.8 % [facility] Comment: Interpretive Data Percent cell count reference ranges are not reported, since discordance with absolute values may lead to misinterpretation of CBC data. Current Interpretive Data was last revised on 2018. Basophil pct 0.2 % [facility] Comment: Interpretive Data Percent cell count reference ranges are not reported, since discordance with absolute values may lead to misinterpretation of CBC data. Current Interpretive Data was last revised on 2018. Blood 07/23/2025 11:3 7 AM CDT 07/23/2025 12:26 PM CDT Olga Pinon OFFICE CLIN ASST LAB BLOOD ORDERABLES Fi nal Result Performing Organization Address [facility] de Phone Number [facility] Department [place] [address] * (ABNORMAL) CBC with auto differential (07/23/2025 11:37 AM CDT) Pathologist [facility] WBC 9.94(H) 3.80 - 9.90 K/cumm Hgb 10.7(L) 11.9 - 15.5 g/dL [facility] Hct 32.7(L) 35.6 - 45.5 % [facility] Plt 392 150 - 400 K/cumm [facility] MPV 9.7 9.1 - 12.3 fL [facility] RBC 3.22(L) 3.90 - 5.20 M/cumm [facility] MCV 101.6(H) 81.3 - 96.4 fL [facility] MCH 33.2 27.1 - 33.3 pg [facility] MCHC 32.7 32.3 - 35.7 g/dL [facility] RDW CV 12.9 11.1 - 14.9 % [facility] RDW SD 48.1 35.7 - 48.1 fL [facility] NRBC abs 0.00 0.00 - 0.01 K/cumm [facility] Blood 07/23/2025 11:3 7 AM CDT 07/23/2025 12:26 PM CDT Olga Pinon OFFICE CLIN ASST LAB BLOOD ORDERABLES Fi nal Result Performing Organization Address [facility]/ZIP Co de Phone Number [facility] [place] [address] * (ABNORMAL) Comprehensive metabolic panel (07/23/2025 11:37 AM CDT) Pathologist [facility] Sodium 141 135 - 145 mmol/L Potassium, pl 4.1 3.3 - 4.9 mmol/L [facility] Chloride 105 97 - 110 mmol/L [facility] CO2 22 22 - 32 mmol/L [facility] Anion gap 14 2 - 15 mmol/L [facility] BUN 33(H) 6 - 25 mg/dL [facility] Creatinine 2.11(H) 0.60 - 1.10 mg/dL [facility] Glucose 110 70 - 199 mg/dL [facility] Comment: Interpretive Data Fasting glucose [...] interpretive data was last revised 2022. Calcium 9.0 8.5 - 10.3 mg/dL [facility] Bilirubin, total 0.2 0.1 - 1.2 mg/dL [facility] Protein, pl 8.0 6.5 - 8.5 g/dL [facility] Albumin 3.7 3.5 - 5.0 g/dL [facility] Alk phos 103 40 - 130 Units/L [facility] ALT 24 7 - 45 Units/L [facility] AST 26 10 - 45 Units/L [facility] Blood 07/23/2025 11:3 7 AM CDT 07/23/2025 12:26 PM CDT Olga Pinon OFFICE CLIN ASST LAB BLOOD ORDERABLES Fi nal Result [facility] Department [place] [address] * ECG 12 lead (07/23/2025 10:26 AM CDT) Ventricular Rate EKG/Min 84 BPM [facility] Atrial Rate 84 BPM [facility] MD-Interval (MSEC) 184 ms [facility] QRS-Interval (MSEC) 88 ms [facility] QT-Interval (MSEC) 380 ms [facility] QTc 449 ms [facility] P [place] 34 degrees [facility] R [place] 50 degrees [facility] T [place] 29 degrees [facility] Diagnosis Sinus rhythm with Premature atrial complexes Anteroseptal infarct , age undetermined Abnormal ECG When compared with ECG of 29-NOV-2023 06:17, PREVIOUS ECG IS PRESENT Confirmed by NOMAN VAUGHAN M.D ([id number]) on 07/24/2025 5:15:56 PM [facility] 07/23/2025 10:2 6 AM CDT 07/24/2025 5:15 PM CDT us Olga Pinon OFFICE CLIN ASST ECG ORDERABLES Final R esult [facility] * US Duplex Scan of Aorta; Inferior Vena Cava, Iliac, Complete (07/08/2025 9:02 AM CDT) Anatomical Region Laterality Modality Vascular Ultrasound 07/08/2025 8:29 AM CDT Narrative 07/08/2025 1:19 PM CDT Abdominal Aortic Duplex Ultrasound Report Patient Name: GENARO GAYLE M : 1955 Study Date: 07/08/2025 8:29:47 AM Gender: F Vacation Sales Advisor: Sarah Flores RDMS,T Ref Provider: KATARZYNA PEREIRA [...] Study Date: 07/08/2025 8:29:47 AM Gender: F Vacation Sales Advisor: Sarah Flores RDMS,RVT Ref Provider: KATARZYNA PEREIRA [...] 07/08/2025 1:00:52 PM CDT Katarzyna Pereira MD IM US PROCEDURES Final [...] agrees with it. ACC# Date Time Exam [id number] Jan 30, 2017 09:38:[id number] Colonography Screen ACC# Date Time Exam [id number] Jan 30, 2017 09:38:[address] Colonography Screen EXAMINATION: CT colonography without [...] SHAW M.D. on Jan 30 2017 5:45P [id number] Procedure Note Miscellaneous, Notinfile / Provider, MD Alicia - 04/04/2017 Aleksandar BOYER M.D. FINAL REPORT The radiology attending physician has personally reviewed this study, and has reviewed and/or edited this written report and agrees with it. ACC# Date Time Exam [id number] Jan 30, 2017 09:38:[id number] Colonography Screen ACC# Date Time Exam [id number] Jan 30, 2017 09:38:[address] Colonography Screen EXAMINATION: CT colonography without [...] SHAW M.D. on Jan 30 2017 5:45P [id number] us Not In File Miscellaneous IMG CT PROCEDURES Evelin l Result from Last 3 Months or Most Recently Relevant to Health Maintenance Additional Health Concerns Infection Onset Date Last Indicated 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 Needs negative urine cx and negative cultures from all open wounds. Janet An RN 11/29/2023 11/29/2023 Insurance [facility] Advance Directives For more information, please contact: [phone] * Full Code (Latest Code Status on File) Date Activated Date Inactivated Comments 07/31/2025 6:09 PM 08/02/2025 4:29 PM * Full Code Date Activated Date Inactivated Comments 11/28/2023 12:54 PM 12/01/2023 6:05 PM Care Teams [place] Relationship Specialty Start Date End Date Ricardo Freeman DO PCP - General Internal Medicine 06/19/24
--- OUTSIDE RECORDS SUMMARY | 2025-09-02 19:23 | XMS_ITS | Clinical Summary ---
Author Organization [facility] Address [address] [place] [address] Care Team Providers Care Nutrition Services Associate Name Role Phone Ricardo Freeman Primary Care Provider [phone] Allergies No known active allergies Medications albuterol sulfate HFA 90 mcg/actuation aerosol inhaler Take 2 Puffs by inhalation every 6 hours as needed for Wheezing. Active bumetanide (BUMEX) 0.5 mg tablet Take 1 mg by mouth 2 times daily. 5 Active calcium as CARBONATE (TUMS) 500 mg (200 mg elemental) Tablet, Chewable Take 1,000 mg by mouth. Active acetaminophen (TYLENOL) 500 mg tablet Take 1,000 mg by mouth. Active carvediloL (COREG) 25 mg tablet Take 25 mg by mouth 2 times daily. Active clopidogreL (PLAVIX) 75 mg Tablet Take 75 mg by mouth daily in the morning. 5 Active felodipine (PLENDIL) 10 mg Extended Release 24 hour tablet Take 10 mg by mouth. Active folic acid (FOLVITE) 1 mg tablet Take 1,000 mcg by mouth. 3 Active isosorbide mononitrate (IMDUR) 30 mg Extended Release 24 hour tablet Take 30 mg by mouth daily. 4 11/01/20 25 Active lansoprazole (PREVACID) 15 mg Capsule, Delayed Release(E.C.) Take 15 mg by mouth. Active levothyroxine 88 mcg tablet Take 88 mcg by mouth. Active nitroglycerin (NITROSTAT) 0.4 mg Tablet, Sublingual Place 0.4 mg under tongue. 4 Active oxyBUTYnin (DITROPAN XL) 15 mg Extended Release 24 hour tablet Take 1 Tablet by mouth daily. 5 Active ranolazine ER (RANEXA) 500 mg Extended Release 12 hour tablet Take 500 mg by mouth 2 times daily. 5 Active rosuvastatin (CRESTOR) 40 mg tablet Take 40 mg by mouth. 5 Active Stiolto Respimat 2.5-2.5 mcg/actuation metered inhaler INHALE 2 PUFFS BY MOUTH IN THE MORNING 5 Active methenamine hippurate (HIPREX) 1 gram Tablet Take 1 Gram by mouth 2 times daily. 4 Active Active Problems No known active problems Encounters Date Type Department Care Team Description 09/02/2025 3:00 PM CDT Office Visit [facility] - [place] [address] [place] [phone] Brodie Lao MD Chronic anemia (Primary Dx) from Last 3 Months Family History Medical History Relation Name Comments Diabetes Brother Heart Disease Brother No Known Problems Child 1 No Known Problems Child 2 Heart Disease Child 3 Heart Disease Father No Known Problems Mother Heart Disease Sister Relation Name Status Comments Brother Child 1 Alive Child 2 Alive Child 3 Alive Father Mother Sister Alive Social History Tobacco Use Types Packs/Day Years [...] Mass Index 25.83 09/02/2025 2:58 PM CDT Plan of Treatment Upcoming Encounters Date Type Department Care Team (Late st Contact Info) Description 09/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 [facility] [place] [address] [facility] [address] [place] [address] Brodie Lao MD [address] [facility] [address] [place] [address] Health Maintenance Due Date Last Done Comments DTAP/TDAP/TD VACCINES (1 - Tdap) 1975 BREAST CANCER SCREENING 1996 COLORECTAL SCREENING 2001 FIT-DNA Q 3 years 2001 FIT/FOBT Q 1 year 2001 PNEUMOCOCCAL VACCINE 50+ YEA RS (2 of 2 - PCV20 or PCV21) 11/16/2017 11/16/2016 OSTEOPOROSIS SCREENING 2021 Colorectal Cancer Screening 01/30/2022 Flex Sig/CT Colonography Q 5 years 01/30/20222016 [place]) Preventative Visit/Annual Wellness Visit 11/13/2024 INFLUENZA VACCINE (#1) 2025 0, 10/23/2019, 08/13/2019, Additional history exists RSV VACCINE (60+ or ) (1 - 1-dose 75+ series) 2031 ZOSTER VACCINE Completed 10/30/2018, 08/08/2018 Insurance [facility] Care Teams Nutrition Services Associate Relationship Specialty Start Date End Date Ricardo Freeman DO [address] [facility] [address] [place] [id number] PCP - General Internal Medicine 08/07/25
--- OUTSIDE RECORDS SUMMARY | 2025-09-02 19:23 | XMS_ITS | Encounter Summary ---
Author Organization 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
--- OUTSIDE RECORDS SUMMARY | 2025-09-02 19:23 | XMS_ITS | Encounter Summary ---
Author Organization [facility] Healthcare Address [address] [place] [address] Care Team Providers Care Tap Grinder Name Role Phone Carlito Guerrero MD Primary Care Provider [phone] Ricardo Freeman DO Primary Care Provider [phone] Encounter Details Date Type Department Care Team (Late st Contact Info) Description 04/13/2018 Orders Only [facility] [place] Information Management [address] [place] [id number] Scanning, Provider Social History Tobacco Use Types Packs/Day Years Used Date Smoking Tobacco: Former Smokeless Tobacco: Never Alcohol Use Standard Drinks/Week Comments No 0 (1 standard drink = 0.6 oz pur e alcohol) Comments Unknown Sex and Gender Information Value Date Recorded Sex Assigned at Not on file 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 Needs negative urine cx and negative cultures from all open wounds. Sada An RN 11/29/2023 11/29/2023 documented as of this encounter Care Teams Tap Grinder Relationship Specialty Start Date End Date Carlito Guerrero MD [address] [place] [address] PCP - General 03/07/17 06/18/24 Ricardo Fremean DO [address] [place] [address] PCP - General Internal Medicine 06/19/24 documented as of this encounter
--- OUTSIDE RECORDS SUMMARY | 2025-09-02 19:23 | XMS_ITS | Encounter Summary ---
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
[2025-09-03 15:09] LABS: Albumin 3.3 g/dL (2.9-4.4); Alpha-1-Globulin 0.4 g/dL (0.0-0.4); Alpha-2-Globulin 1.0 g/dL (0.4-1.0); Gamma Globulin 1.2 g/dL (0.4-1.8)
== END 2025-09-02 15:29 | disposition home or self-care (01) ==
LOC: ANHLAB 15:29
PROVIDERS: PCP Nurse Practitioner; Visit Provider Internal Medicine Hematology & Oncology
DX: D64.9 Anemia, unspecified (principal)
CPT/HCPCS: 36415; 80053; 82607; 82728; 82746; 83540; 83550; 84155; 84165; 84238; 85025